=== PATIENT | female | born 2000 | race Caucasian/White ===

== ENCOUNTER 2023-03-22 19:05 | Outpatient (REF) | payer OTHER, SELFPAY | END 2023-03-22 19:06 | disposition home or self-care (01) | LOC: LAB 19:05 | PROVIDERS: PCP Physician Assistant; Visit Provider Physician Assistant | DX: R80.9 Proteinuria, unspecified (principal); R30.0 Dysuria | CPT/HCPCS: 87086 ==

== ENCOUNTER 2023-10-25 16:55 | Emergency (ER) | payer OTHER, SELFPAY ==
[2023-10-25 16:58] VITALS: BP 132/61; PULSE 65; TEMP 37; O2SAT 99; BMI 36.3
[2023-10-25 17:20] LABS: Bilirubin Urine NEGATIVE (NEGATIVE); Blood Urine NEGATIVE (NEGATIVE); Clarity Urine CLEAR (CLEAR); Color Urine LT. YELLOW (YELLOW); Glucose Urine UA NEGATIVE (NEGATIVE); Ketones Urine NEGATIVE (NEGATIVE); Leukocyte Esterase Urine SMALL (NEGATIVE); Nitrite Urine NEGATIVE (NEGATIVE); Protein Urine NEGATIVE (NEG/TRACE); Specific Gravity Urine 1.015 (1.005-1.025)
[2023-10-25 17:23] LABS: HCG Qualitative Urine* NEGATIVE (NEGATIVE)
[2023-10-25 17:36] LABS: Bacteria Urine NONE SEEN #/HPF (NONE SEEN); Cast Seen? NONE SEEN #/LPF (NONE SEEN); Crystals Seen? None Seen #/HPF (None Seen); Mucus Urine NONE SEEN (NONE SEEN); RBC Urine NONE SEEN #/HPF (0-2); Squamous Epithelial Cell Urine NONE SEEN #/LPF (NONE/RARE); WBC Urine 0-2 #/HPF (NONE SEEN)
[2023-10-25] MEDS: 0.9 % SODIUM CHLORIDE 1,000 ML 1000 ML IV (17:49)
--- NOTE | 2023-10-25 17:49 | ED_ITS ---
HPI HPI - General Adult General Chief complaint: Abdominal Pain Stated complaint: Nausea/Vomiting, Abdominal Pain, Headache Time Seen by Provider: 10/25/23 17:02 Source: patient Mode of arrival: walk-in Limitations: no limitations History of Present Illness HPI narrative: Patient is a 23-year-old female who is presenting to the ER with chief complaint of multiple concerns. Patient has bilateral frontal headache, dull, but persistent for the past 3 to 4 days. Patient does not normally get headaches. Patient has no neck pain. No meningeal signs or symptoms. Patient has no chest pain or shortness of breath. Patient does have midepigastric pain. Patient is been having urinary frequency and urgency. Patient told nursing staff Angelica VELÁZQUEZ that her nipples are sensitive, approximately 3/10 of sensitivity. She has no drainage, abscesses, trauma to bilateral breast. Patient is a G0, P0. Patient has no other abdominal pain, no flank pain or back pain. Patient states that she could be , but she is due for her menses in approximately 6 days. No vaginal bleeding, odors or discharge. No diarrhea or constipation. No acute complaints. Patient states she is been vomiting once or twice every morning for the past week. Patient did a test at urgent care last week. They did not check her urine for infection. No other acute complaints. 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 Patient's had no significant digestive or electrolyte problems since her gastric bypass. Patient is trying to get . She is not on control. Boyfriend is at bedside. All systems are negative except as noted/marked. All systems reviewed and otherwise negative. Nurses note and vital signs reviewed and patient is not hypoxic. General: The patient appears well and in no apparent distress. Patient is resting comfortably on cart. Patient is not toxic, lethargic, or listless Skin: Warm, dry, no pallor noted. There is no rash noted. No petechiae, purpura. Head: Normocephalic, atraumatic Eye: Normal conjunctiva, no drainage, EOMI. PERRL Ears, Nose, Mouth, and Throat: oral mucosa is moist. Nares patent. Mouth without vesicles. Cardiovascular: Regular Rate and Rhythm, no murmur, gallop, rub Respiratory: Patient is in no distress, no accessory muscle use, lungs are clear to auscultation, no wheezing, rales or rhonchi Back: non-tender, no CVA tenderness bilaterally to percussion. No CT LS midline pain GI: Obese, mild midepigastric tenderness to palpation, no bilateral lower quadrant tenderness palpation. Soft, no peritoneal signs, no flank pain bilateral. no tenderness to palpation, no masses appreciated. No rebound, guarding, or rigidity noted. No distention. Musculoskeletal: Patient has full range of motion of all of the extremities, no motor, sensory, or focal neurological deficits Neurological: A&O x4, normal speech Psychiatric: Cooperative Related Data Home Medications ?Medication ?Instructions ?Recorded ?Confirmed hydroxyzine HCl 10 mg tablet 10 mg PO DAILY 10/25/23 10/25/23 Previous Rx's ?Medication ?Instructions ?Recorded prochlorperazine maleate 10 mg 10 mg PO Q8H PRN nausea and 10/25/23 tablet (Compazine) vomiting 3 days #10 tabs Allergies Allergy/AdvReac Type Severity Reaction Status Date / Time No Known Drug Allergies Allergy Verified 10/25/23 16:58 Opioid HPI Opioid Management Most Recent Opioid Data: No Data to Display Exam Constitutional Vital Signs, click to edit/add: Last Vital Signs Temp 98.6 F 10/25/23 16:58 Pulse 65 10/25/23 16:58 Resp 18 10/25/23 16:58 BP 132/61 10/25/23 16:58 Pulse Ox 99 10/25/23 16:58 O2 Del Method Room Air 10/25/23 16:58 Course Vital Signs Vital signs: Vital Signs Temperature 98.6 F 10/25/23 16:58 Pulse Rate 65 10/25/23 16:58 Respiratory Rate 18 10/25/23 16:58 Blood Pressure 132/61 10/25/23 16:58 Pulse Oximetry 99 10/25/23 16:58 Oxygen Delivery Method Room Air 10/25/23 16:58 Temperature 98.6 F 10/25/23 16:58 Pulse Rate 65 10/25/23 16:58 Respiratory Rate 18 10/25/23 16:58 Blood Pressure 132/61 10/25/23 16:58 Pulse Oximetry 99 10/25/23 16:58 Oxygen Delivery Method Room Air 10/25/23 16:58 Medical Decision Making MDM Narrative Medical decision making narrative: Patient is concerned that she is having signs symptoms of . Patient is also having headache for past 3 to 4 days, also having 1-2 episodes of vomiting the past 3 to 4 days. Patient's symptoms have 100% resolved. Patient no longer has a headache, nausea has resolved. Patient's urine is negative, is negative. Patient was sent home with prescription for Compazine. Patient will follow-up with her PCP and GI specialist/bariatric specialist as needed. No questions at discharge Lab Data Labs: Lab Results 10/25/23 10/25/23 Range/Units 17:15 17:45 WBC 6.6 (4.0-11.0) 10^3/uL RBC 3.83 L (4.20-5.40) 10^6/uL Hgb 11.7 L (12.0-16.0) g/dL Hct 35.5 L (36.0-48.0) % MCV 92.7 (81.0-99.0) fL MCH 30.5 (26.7-34.0) pg MCHC 33.0 (29.9-35.2) g/dL RDW 12.5 (11.0-15.0) % Plt Count 241 (150-450) 10^3/uL MPV 10.7 (9.5-13.5) fL Neut % (Auto) 44.6 (43.0-75.0) % Lymph % (Auto) 48.2 (20.5-60.0) % [place] % (Auto) 5.0 (1.7-12.0) % Eos % (Auto) 1.5 (0.9-7.0) % Baso % (Auto) 0.5 (0.2-2.0) % Neut # (Auto) 3.0 (1.4-6.5) 10^3/uL Lymph # (Auto) 3.2 (1.2-3.8) 10^3/uL [place] # (Auto) 0.3 (0.3-0.8) 10^3/uL Eos # (Auto) 0.1 (0.0-0.7) 10^3/uL Baso # (Auto) 0.0 (0.0-0.1) 10^3/uL Abs Immat Gran (auto) 0.01 (0.00-0.03) 10^3/uL Imm/Tot Granulo (auto) 0.2 (0.0-0.5) % Sodium 141 (136-145) mmol/L Potassium 4.4 (3.5-5.1) mmol/L Chloride 105 (98-107) mmol/L Carbon Dioxide 26.7 (21.0-32.0) mmol/L Anion Gap 13.7 BUN 9.0 (7.0-18.0) mg/dL Creatinine 0.63 (0.55-1.02) mg/dL Est GFR ( Amer) >60 (>=60) Est GFR (Non-Af Amer) >60 (>=60) BUN/Creatinine Ratio 14.3 Glucose 87 (74-106) mg/dL Calcium 9.2 (8.5-10.1) mg/dL Total Bilirubin 0.6 (0.2-1.0) mg/dL AST 17 (15-37) U/L ALT 26 (14-59) U/L Alkaline Phosphatase 57 (46-116) U/L Total Protein 6.6 (6.4-8.2) g/dL Albumin 3.6 (3.4-5.0) g/dL Globulin 3.0 g/dL Albumin/Globulin Ratio 1.2 Lipase 28.0 (16.0-77.0) U/L Urine Color Lt. yellow (YELLOW) Urine Clarity Clear (CLEAR) Urine pH 8.0 (5.0-9.0) Ur Specific [place] 1.015 (1.005-1.025) Urine Protein Negative (NEG/TRACE) mg/dL Urine Glucose (UA) Negative (NEGATIVE) mg/dL Urine Ketones Negative (NEGATIVE) mg/dL Urine Occult Blood Negative (NEGATIVE) Urine Nitrite Negative (NEGATIVE) Urine Bilirubin Negative (NEGATIVE) Urine Urobilinogen 1.0 (0.2-1.0) EU/dL Ur Leukocyte Esterase Small A (NEGATIVE) Urine RBC None seen (0-2) #/HPF Urine WBC 0-2 A (NONE SEEN) #/HPF Ur Squamous Epith Cells None seen (NONE/RARE) #/LPF Urine Crystals None seen (None Seen) #/HPF Urine Bacteria None seen (NONE SEEN) #/HPF Urine Casts None seen (NONE SEEN) #/LPF Urine Mucus None seen (NONE SEEN) Urine HCG, Qual Negative (NEGATIVE) Discharge Plan Discharge Stand Alone Forms: Portal Instructions Chief Complaint: Abdominal Pain Clinical Impression: Headache, Midepigastric pain, Nausea Patient Disposition: Home, Self-Care Time of Disposition Decision: 18:54 Condition: Fair Prescriptions / Home Meds: New prochlorperazine maleate [Compazine] 10 mg tablet 10 mg PO Q8H PRN (Reason: nausea and vomiting) 3 Days Qty: 10 0RF No Action hydroxyzine HCl 10 mg tablet 10 mg PO DAILY Print Language: Maltese Instructions: Acute Nausea and Vomiting (ED), Acute Abdominal Pain (ED), Epigastric Pain (ED), General Headache (ED) Additional Instructions: Increase fluids at home. Follow-up with PCP. Referrals: Physician,Non-Staff, MD [Primary Care Provider] - 1 week
[2023-10-25] MEDS: ONDANSETRON PF 4 MG/2 ML VIAL IV (17:50)
[2023-10-25] MEDS: PROCHLORPERAZINE 10 MG/2 ML VIAL IV (17:50)
[2023-10-25 18:13] LABS: Basophils Percent Auto 0.5 % (0.2-2.0); Eosinophils Absolute Auto 0.1 10^3/uL (0.0-0.7); Eosinophils Percent Auto 1.5 % (0.9-7.0); Hematocrit 35.5 % (36.0-48.0); Hemoglobin 11.7 g/dL (12.0-16.0); Immature Granulocytes Abs Auto 0.01 10^3/uL (0.00-0.03); Immature Granulocytes Pct Auto 0.2 % (0.0-0.5); Lymphocytes Absolute Auto 3.2 10^3/uL (1.2-3.8); Lymphocytes Percent Auto 48.2 % (20.5-60.0); Mean Corpuscular Hemoglobin 30.5 pg (26.7-34.0); Mean Corpuscular Volume 92.7 fL (81.0-99.0); Mean Platelet Volume 10.7 fL (9.5-13.5); Monocytes Absolute Auto 0.3 10^3/uL (0.3-0.8); Neutrophils Percent Auto 44.6 % (43.0-75.0); Platelet Count 241 10^3/uL (150-450); Red Blood Count 3.83 10^6/uL (4.20-5.40); Red Cell Distribution Width 12.5 % (11.0-15.0); White Blood Count 6.6 10^3/uL (4.0-11.0)
[2023-10-25 18:28] LABS: Alanine Aminotransferase 26 U/L (14-59); Albumin Globulin Ratio 1.2; Albumin Level 3.6 g/dL (3.4-5.0); Alkaline Phosphatase 57 U/L (46-116); Anion Gap 13.7; Aspartate Amino Transferase 17 U/L (15-37); BUN Creatinine Ratio 14.3; Bilirubin Total 0.6 mg/dL (0.2-1.0); Calcium 9.2 mg/dL (8.5-10.1); Carbon Dioxide 26.7 mmol/L (21.0-32.0); Chloride 105 mmol/L (98-107); Estimated GFR (African America >60 (>=60); Estimated GFR (Non-African Ame >60 (>=60); Glucose 87 mg/dL (74-106); Potassium 4.4 mmol/L (3.5-5.1); Sodium 141 mmol/L (136-145); Total Protein 6.6 g/dL (6.4-8.2)
== END 2023-10-25 19:01 | disposition home or self-care (01) ==
PROVIDERS: Emergency Provider Emergency Medicine
DX: R51.9 Headache, unspecified (principal); R10.13 Epigastric pain; R11.0 Nausea; Z98.84 Bariatric surgery status
CPT/HCPCS: 36415; 80053; 81001; 83690; 84703; 85025; 96361; 96374; 96375; 99285

== ENCOUNTER 2023-11-20 14:19 | Emergency (ER) | payer OTHER, SELFPAY ==
[2023-11-20 14:25] VITALS: BP 134/70; PULSE 66; TEMP 37; O2SAT 97; BMI 36.0
--- NOTE | 2023-11-20 14:28 | US_ITS ---
[address] [address] Patient Name: CARLO KINGSLEY MRN: [id number] date: 2000 Sex: F Assigned Patient Location: ED.MAIN Current Patient Location: ER Accession/Order Number: [id number] Exam Date: 11/20/2023 15:00 Report Date: 11/20/2023 15:20 At the request of: SYDNEE CHANCE Procedure: US OB transvaginal EXAMINATION: US OB transvaginal HISTORY: ectopic preg COMPARISON: No relevant comparison available. FINDINGS: Transvaginal images Sarmiento intrauterine gestation Gestational sac: 2.17 cm, 6 weeks 5 days CRL: 0.91 cm, 6 weeks 6 days Yolk sac: 3.6 mm Heart rate: 1 40 bpm Cervix: Closed, 5.3 cm The uterus is normal, anteverted The ovaries are not visualized Clinical age: 7 weeks 3 days Clinical KATELIN: 07/05/2024 Ultrasound age: 6 weeks 6 days Ultrasound KATELIN: 07/09/2024 US/US OB transvaginal IMPRESSION: Viable sarmiento intrauterine gestation measuring 6 weeks 6 days Electronically authenticated by: HAFSA LAWRENCE Date: 11/20/2023 15:20
--- NOTE | 2023-11-20 14:33 | ED_ITS ---
HPI - Abdominal Pain General Chief Complaint: Abdominal Pain Stated Complaint: ABDOMINAL PAIN 7 WEEKS APPROX Time Seen by Provider: 11/20/23 14:20 Source: patient Mode of arrival: walk-in History of Present Illness HPI narrative: Patient is a 23-year-old female who presents to the emergency department for a 1 day history of pelvic cramping in the suprapubic abdomen. She states she believes she is approximately 7 weeks based on her last menstrual period. She was seen in this emergency department 3-1/2 weeks ago with concern for and was found to have a negative serum qualitative test. She states she continues to take positive home tests and last Saturday went to the [place] emergency department to confirm that she is . She comes to this emergency department today because she has been cramping in the suprapubic abdomen, no bleeding or clots. She has had no fevers or vomiting. No medications taken prior to arrival. This is her first , no flank or back pain. Related Data Home Medications ?Medication ?Instructions ?Recorded ?Confirmed hydroxyzine HCl 10 mg tablet 10 mg PO DAILY 10/25/23 11/20/23 Previous Rx's ?Medication ?Instructions ?Recorded cephalexin 500 mg capsule 500 mg PO Q8H 3 days #9 caps 11/20/23 Allergies Allergy/AdvReac Type Severity Reaction Status Date / Time No Known Drug Allergies Allergy Verified 10/25/23 16:58 Review of Systems ROS Constitutional Denies: fever or chills Ears, nose, mouth, and throat Denies: throat pain or nasal congestion Respiratory Denies: shortness of breath Gastrointestinal Reports: abdominal pain; Denies: nausea, vomiting or diarrhea Genitourinary Reports: pelvic pain; Denies: painful urination, vaginal bleeding or vaginal discharge Integumentary/Breast Denies: rash Neurological Denies: headache Hematologic/Lymphatic Denies: easy bruising or easy bleeding Exam Narrative Exam Narrative: Gen.: Awake, alert, in no distress Head: Normocephalic, atraumatic ENT: Moist mucous membranes Respiratory: No respiratory distress Gastrointestinal: Abdomen is soft, nondistended and Mildly tender to palpation in the suprapubic abdomen with no guarding or rebound, no unilateral pelvic tenderness or pain out of proportion on exam Extremities: Moves extremities equally Psych: Normal mood and affect Neuro: No focal neuro deficit Skin: Warm, dry, intact Constitutional Vital Signs, click to edit/add: Last Vital Signs Temp 98.6 F 11/20/23 14:25 Pulse 66 11/20/23 14:25 Resp 15 11/20/23 14:25 BP 134/70 11/20/23 14:25 Pulse Ox 97 11/20/23 14:25 O2 Del Method Room Air 11/20/23 14:25 Course Vital Signs Vital signs: Vital Signs Temperature 98.6 F 11/20/23 14:25 Pulse Rate 66 11/20/23 14:25 Respiratory Rate 15 11/20/23 14:25 Blood Pressure 134/70 11/20/23 14:25 Pulse Oximetry 97 11/20/23 14:25 Oxygen Delivery Method Room Air 11/20/23 14:25 Temperature 98.6 F 11/20/23 14:25 Pulse Rate 66 11/20/23 14:25 Respiratory Rate 15 11/20/23 14:25 Blood Pressure 134/70 11/20/23 14:25 Pulse Oximetry 97 11/20/23 14:25 Oxygen Delivery Method Room Air 11/20/23 14:25 MDM - Abdominal Pain MDM Narrative Medical decision making narrative: Patient with no severe abdominal pain or vomiting in the ER with stable vital signs. Quantitative hCG level is 61,000, she has B+ blood type and ultrasound shows intrauterine gestation at 6 weeks and 6 days with no other visualized abnormalities. Patient was found to have significant bowel gas on ultrasound, she may be constipated contributing to her symptoms. Her urine specimen shows a contaminated UTI, given her and suprapubic discomfort she will be treated with 3 days of Keflex. Follow-up with gynecology and return to the ER if symptoms change or worsen. Medical Records Attestation: I reviewed the patient's medical records. Lab Data Attestation: I reviewed the patient's lab results. Labs: Lab Results 11/20/23 11/20/23 Range/Units 14:30 14:39 WBC 9.0 (4.0-11.0) 10^3/uL RBC 3.82 L (4.20-5.40) 10^6/uL Hgb 11.7 L (12.0-16.0) g/dL Hct 34.8 L (36.0-48.0) % MCV 91.1 (81.0-99.0) fL MCH 30.6 (26.7-34.0) pg MCHC 33.6 (29.9-35.2) g/dL RDW 12.0 (11.0-15.0) % Plt Count 259 (150-450) 10^3/uL MPV 10.5 (9.5-13.5) fL Neut % (Auto) 59.6 (43.0-75.0) % Lymph % (Auto) 34.6 (20.5-60.0) % [place] % (Auto) 4.6 (1.7-12.0) % Eos % (Auto) 0.6 L (0.9-7.0) % Baso % (Auto) 0.3 (0.2-2.0) % Neut # (Auto) 5.4 (1.4-6.5) 10^3/uL Lymph # (Auto) 3.1 (1.2-3.8) 10^3/uL [place] # (Auto) 0.4 (0.3-0.8) 10^3/uL Eos # (Auto) 0.1 (0.0-0.7) 10^3/uL Baso # (Auto) 0.0 (0.0-0.1) 10^3/uL Abs Immat Gran (auto) 0.03 (0.00-0.03) 10^3/uL Imm/Tot Granulo (auto) 0.3 (0.0-0.5) % Sodium 139 (136-145) mmol/L Potassium 4.3 (3.5-5.1) mmol/L Chloride 104 (98-107) mmol/L Carbon Dioxide 25.9 (21.0-32.0) mmol/L Anion Gap 13.4 BUN 7.0 (7.0-18.0) mg/dL Creatinine 0.50 L (0.55-1.02) mg/dL Est GFR ( Amer) >60 (>=60) Est GFR (Non-Af Amer) >60 (>=60) BUN/Creatinine Ratio 14.0 Glucose 90 (74-106) mg/dL Calcium 9.1 (8.5-10.1) mg/dL Total Bilirubin 0.4 (0.2-1.0) mg/dL AST 11 L (15-37) U/L ALT 27 (14-59) U/L Alkaline Phosphatase 61 (46-116) U/L Total Protein 6.5 (6.4-8.2) g/dL Albumin 3.4 (3.4-5.0) g/dL Globulin 3.1 g/dL Albumin/Globulin Ratio 1.1 HCG, Quant 80108 mIU/mL Urine Color Yellow (YELLOW) Urine Clarity Clear (CLEAR) Urine pH 7.5 (5.0-9.0) Ur Specific [place] 1.025 (1.005-1.025) Urine Protein Negative (NEG/TRACE) mg/dL Urine Glucose (UA) Negative (NEGATIVE) mg/dL Urine Ketones Negative (NEGATIVE) mg/dL Urine Occult Blood Negative (NEGATIVE) Urine Nitrite Negative (NEGATIVE) Urine Bilirubin Negative (NEGATIVE) Urine Urobilinogen 2.0 A (0.2-1.0) EU/dL Ur Leukocyte Esterase Trace A (NEGATIVE) Urine RBC 0-2 (0-2) #/HPF Urine WBC 2-5 A (NONE SEEN) #/HPF Ur Squamous Epith Cells Moderate A (NONE/RARE) #/LPF Urine Crystals None seen (None Seen) #/HPF Urine Bacteria Small A (NONE SEEN) #/HPF Urine Casts None seen (NONE SEEN) #/LPF Urine Mucus None seen (NONE SEEN) Ur Culture Indicated? Yes Blood Type B Positive Imaging Data US - abdomen: Attestation: I have reviewed the pertinent imaging results. Radiologist's impression: ITS Impressions Transvaginal US 11/20/23 14:28 IMPRESSION: Viable sarmiento intrauterine gestation measuring 6 weeks 6 days Electronically authenticated by: HAFSA LAWRENCE Date: 11/20/2023 15:20 Discharge Plan Discharge Stand Alone Forms: Portal Instructions Chief Complaint: Abdominal Pain Clinical Impression: UTI (urinary tract infection), Intrauterine , Pelvic pain Patient Disposition: Home, Self-Care Time of Disposition Decision: 16:00 Condition: Good Prescriptions / Home Meds: New cephalexin 500 mg capsule 500 mg PO Q8H 3 Days Qty: 9 0RF No Action hydroxyzine HCl 10 mg tablet 10 mg PO DAILY Print Language: Turkmen Instructions: Urinary Tract Infection in (ED), at 7 to 10 Weeks (ED) Referrals: Physician,Non-Staff, MD [Primary Care Provider] - 1 week
[2023-11-20 14:58] LABS: Bilirubin Urine NEGATIVE (NEGATIVE); Blood Urine NEGATIVE (NEGATIVE); Clarity Urine CLEAR (CLEAR); Color Urine YELLOW (YELLOW); Glucose Urine UA NEGATIVE (NEGATIVE); Ketones Urine NEGATIVE (NEGATIVE); Leukocyte Esterase Urine TRACE (NEGATIVE); Nitrite Urine NEGATIVE (NEGATIVE); Protein Urine NEGATIVE (NEG/TRACE); Specific Gravity Urine 1.025 (1.005-1.025); Urine Microscopic Indicated YES; pH Urine 7.5 (5.0-9.0)
[2023-11-20 14:59] LABS: Basophils Percent Auto 0.3 % (0.2-2.0); Eosinophils Absolute Auto 0.1 10^3/uL (0.0-0.7); Eosinophils Percent Auto 0.6 % (0.9-7.0); Hematocrit 34.8 % (36.0-48.0); Hemoglobin 11.7 g/dL (12.0-16.0); Immature Granulocytes Abs Auto 0.03 10^3/uL (0.00-0.03); Immature Granulocytes Pct Auto 0.3 % (0.0-0.5); Lymphocytes Absolute Auto 3.1 10^3/uL (1.2-3.8); Lymphocytes Percent Auto 34.6 % (20.5-60.0); Mean Corpuscular HGB Conc 33.6 g/dL (29.9-35.2); Mean Corpuscular Hemoglobin 30.6 pg (26.7-34.0); Mean Corpuscular Volume 91.1 fL (81.0-99.0); Mean Platelet Volume 10.5 fL (9.5-13.5); Monocytes Absolute Auto 0.4 10^3/uL (0.3-0.8); Monocytes Percent Auto 4.6 % (1.7-12.0); Neutrophils Absolute Auto 5.4 10^3/uL (1.4-6.5); Neutrophils Percent Auto 59.6 % (43.0-75.0); Platelet Count 259 10^3/uL (150-450); Red Blood Count 3.82 10^6/uL (4.20-5.40)
[2023-11-20 15:08] LABS: Bacteria Urine SMALL #/HPF (NONE SEEN); Cast Seen? NONE SEEN #/LPF (NONE SEEN); Crystals Seen? None Seen #/HPF (None Seen); Mucus Urine NONE SEEN (NONE SEEN); RBC Urine 0-2 #/HPF (0-2); Squamous Epithelial Cell Urine MODERATE #/LPF (NONE/RARE); Urine Culture Indicated YES
[2023-11-20 15:12] LABS: Alanine Aminotransferase 27 U/L (14-59); Albumin Globulin Ratio 1.1; Albumin Level 3.4 g/dL (3.4-5.0); Alkaline Phosphatase 61 U/L (46-116); Anion Gap 13.4; Aspartate Amino Transferase 11 U/L (15-37); Bilirubin Total 0.4 mg/dL (0.2-1.0); Calcium 9.1 mg/dL (8.5-10.1); Carbon Dioxide 25.9 mmol/L (21.0-32.0); Chloride 104 mmol/L (98-107); Estimated GFR (African America >60 (>=60); Estimated GFR (Non-African Ame >60 (>=60); Globulin 3.1 g/dL; Glucose 90 mg/dL (74-106); Potassium 4.3 mmol/L (3.5-5.1); Sodium 139 mmol/L (136-145); Total Protein 6.5 g/dL (6.4-8.2)
[2023-11-20] MEDS: ACETAMINOPHEN 500 MG TABLET 1000 MG PO (15:13)
[2023-11-20 15:32] LABS: HCG Quantitative 61629 mIU/mL
== END 2023-11-20 16:14 | disposition home or self-care (01) ==
PROVIDERS: Physician Assistant; Emergency Provider Emergency Medicine
DX: O23.41 Unspecified infection of urinary tract in pregnancy, first trimester (principal); N39.0 Urinary tract infection, site not specified; O26.891 Other specified pregnancy related conditions, first trimester; R10.2 Pelvic and perineal pain; Z3A.01 Less than 8 weeks gestation of pregnancy; Z79.899 Other long term (current) drug therapy
CPT/HCPCS: 36415; 76817; 80053; 81001; 84702; 85025; 86900; 86901; 87086; 99284

== ENCOUNTER 2023-12-12 13:40 | Outpatient (OUT) | payer OTHER, SELFPAY | END 2023-12-12 13:41 | disposition home or self-care (01) | LOC: NOMS 13:40 | PROVIDERS: Visit Provider Obstetrics & Gynecology | DX: Z53.9 Procedure and treatment not carried out, unspecified reason (principal) ==

== ENCOUNTER 2023-12-12 15:06 | Outpatient (OUT) | payer OTHER, SELFPAY ==
[2023-12-12 15:48] LABS: Estimated Average Glucose 103 mg/dL; Glycohemoglobin A1C 5.2 % (4.5-6.2)
[2023-12-12 16:34] LABS: Basophils Percent Auto 0.4 % (0.2-2.0); Eosinophils Absolute Auto 0.1 10^3/uL (0.0-0.7); Eosinophils Percent Auto 0.7 % (0.9-7.0); Hematocrit 33.5 % (36.0-48.0); Hemoglobin 11.4 g/dL (12.0-16.0); Immature Granulocytes Abs Auto 0.03 10^3/uL (0.00-0.03); Immature Granulocytes Pct Auto 0.4 % (0.0-0.5); Mean Corpuscular Hemoglobin 31.3 pg (26.7-34.0); Mean Platelet Volume 10.5 fL (9.5-13.5); Monocytes Absolute Auto 0.3 10^3/uL (0.3-0.8); Monocytes Percent Auto 3.6 % (1.7-12.0); Neutrophils Absolute Auto 5.1 10^3/uL (1.4-6.5); Neutrophils Percent Auto 59.9 % (43.0-75.0); Platelet Count 250 10^3/uL (150-450); Red Blood Count 3.64 10^6/uL (4.20-5.40); Red Cell Distribution Width 12.4 % (11.0-15.0); White Blood Count 8.5 10^3/uL (4.0-11.0)
[2023-12-13 06:10] LABS: HBsAg Screen Negative (Negative); HCV Ab Non Reactive (Non Reactive); HIV Ab/p24 Ag Screen Non Reactive (Non Reactive); Rubella Antibodies, IgG <0.90 index (Immune >0.99)
[2023-12-13 11:10] LABS: Rapid Plasma Reagin, Quant Non Reactive titer (NonRea<1:1)
== END 2023-12-12 15:07 | disposition home or self-care (01) ==
LOC: LAB 15:06
PROVIDERS: Visit Provider Obstetrics & Gynecology
DX: N92.6 Irregular menstruation, unspecified (principal)
CPT/HCPCS: 36415; 83036; 85025; 86592; 86762; 86803; 86850; 86900; 86901; 87086; 87340; 87389

== ENCOUNTER 2023-12-12 16:35 | Outpatient (OUT) | payer OTHER, SELFPAY ==
--- OUTSIDE RECORDS SUMMARY | 2023-12-12 16:50 | XMS_ITS | CCD ---
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 [address] [id number] Debt Recovery Officer: Estuardo Michelle MD, Phone: [phone] This test was developed and its performance characteristics determined by [employer]. It has not been cleared or approved by the Food and Drug Administration. Performed By: #### V ITB1, ZINC #### [facility] [address] [place] [address] #### B12, FOL, CMP, PREALB, ANDREZ, CBCD #### [facility] [address] [place] [address] CBC with DIFFERENTIALon 11-29 Basophils (Bld) [#/Vol] 0.0 10*3/uL Normal 0.0-0.1 [facility] Comment on above: Order Comment: FAX R ESULTS TO DR FLORENCE: [phone] Performed By: #### V ITB1, ZINC #### [facility] [address] [place] [address] #### B12, FOL, CMP, PREALB, ANDREZ, CBCD #### [facility] [address] [place] [address] Basophils/100 WBC (Bld) 0.5 % Normal 0.0-1.0 [facility] Comment on above: Order Comment: FAMaximo R STIVENULTS TO DR FLORENCE: [phone] Performed By: #### V ITB1, ZINC #### [facility] [address] [place] [address] #### B12, FOL, CMP, PREALB, ANDREZ, CBCD #### [facility] [address] [place] [address] Eosinophils (Bld) [#/Vol] 0.4 10*3/uL Normal 0.0-0.4 [facility] Comment on above: Order Comment: FAX R ESULTS TO DR FLORENCE: [phone] Performed By: #### V ITB1, ZINC #### [facility] [address] [place] [address] #### B12, FOL, CMP, PREALB, ANDREZ, CBCD #### [facility] [address] [place] [address] Eosinophils/100 WBC (Bld) 4.8 % High 1.0-4.0 [facility] Comment on above: Order Comment: FAMaximo R ESULTS TO DR FLORENCE: [phone] Performed By: #### V ITB1, ZINC #### [facility] [address] [place] [address] #### B12, FOL, CMP, PREALB, ANDREZ, CBCD #### [facility] [address] [place] [address] Hematocrit (Bld) [Volume fraction] 41.9 % Normal 37.0-47.0 [facility] Comment on above: Order Comment: FAMaximo R STIVENULTS TO DR FLORENCE: Performed By: #### V ITB1, ZINC #### [facility] [address] [place] [address] #### B12, FOL, CMP, PREALB, ANDREZ, CBCD #### [facility] [address] [place] [address] Hemoglobin (Bld) [Mass/Vol] 13.8 g/dL Normal 12.0-16.0 [facility] Comment on above: Order Comment: JENNIFER R STIVENULTS TO DR FLORENCE: Performed By: #### V ITB1, ZINC #### [facility] [address] [place] [address] #### B12, FOL, CMP, PREALB, ANDREZ, CBCD #### [facility] [address] [place] [address] IG # 0.0 10*3/uL Normal 0.0-0.1 [facility] Comment on above: Order Comment: JENNIFER COLIN TO DR FLORENCE: Performed By: #### V ITB1, ZINC #### [facility] [address] [place] [address] #### B12, FOL, CMP, PREALB, ANDREZ, CBCD #### [facility] [address] [place] [address] IG % 0.4 % Normal 0.0-1.0 [facility] Comment on above: Order Comment: JENNIFER COLIN TO DR FLORENCE: Performed By: #### V ITB1, ZINC #### [facility] [address] [place] [address] #### B12, FOL, CMP, PREALB, ANDREZ, CBCD #### [facility] [address] [place] [address] Lymphocytes (Bld) [#/Vol] 3.8 10*3/uL Normal 1.3-4.4 [facility] Comment on above: Order Comment: FAX R ESULTS TO DR FLORENCE: Performed By: #### V ITB1, ZINC #### [facility] [address] [place] [address] #### B12, FOL, CMP, PREALB, ANDREZ, CBCD #### [facility] [address] [place] [address] Lymphocytes/100 WBC (Bld) 45.5 % High 27.0-41.0 [facility] Comment on above: Order Comment: FAX R ESULTS TO DR FLORENCE: Performed By: #### V ITB1, ZINC #### [facility] [address] [place] [address] #### B12, FOL, CMP, PREALB, ANDREZ, CBCD #### [facility] [address] [place] [address] MCV (RBC) [Entitic vol] 89.3 fL Normal 81.0-99.0 [facility] Comment on above: Order Comment: FAX R ESULTS TO DR FLORENCE: Performed By: #### V ITB1, ZINC #### [facility] [address] [place] [address] #### B12, FOL, CMP, PREALB, ANDREZ, CBCD #### [facility] [address] [place] [address] MEAN CORPUSCULAR HGB 29.4 pg Normal 27.0-31.0 [facility] Comment on above: Order Comment: FAX R ESULTS TO DR FLORENCE: Performed By: #### V ITB1, ZINC #### [facility] [address] [place] [address] #### B12, FOL, CMP, PREALB, ANDREZ, CBCD #### [facility] [address] [place] [address] MEAN CORPUSCULAR HGB CONC 32.9 g/dl Low 33.0-37.0 [facility] Comment on above: Order Comment: FAX R ESULTS TO DR FLORENCE: Performed By: #### V ITB1, ZINC #### [facility] [address] [place] [address] #### B12, FOL, CMP, PREALB, ANDREZ, CBCD #### [facility] [address] [place] [address] Monocytes (Bld) [#/Vol] 0.4 10*3/uL Normal 0.1-1.0 [facility] Comment on above: Order Comment: FAMaximo R STIVENULTS TO DR FLORENCE: Performed By: #### V ITB1, ZINC #### [facility] [address] [place] [address] #### B12, FOL, CMP, PREALB, ANDREZ, CBCD #### [facility] [address] [place] [address] Monocytes/100 WBC (Bld) 4.3 % Normal 3.0-9.0 [facility] Comment on above: Order Comment: FAMaximo R STIVENULTS TO DR FLORENCE: Performed By: #### V ITB1, ZINC #### [facility] [address] [place] [address] #### B12, FOL, CMP, PREALB, ANDREZ, CBCD #### [facility] [address] [place] [address] Neutrophils (Bld) [#/Vol] 3.7 10*3/uL Normal 2.3-7.9 [facility] Comment on above: Order Comment: JENNIFER R ESULTS TO DR FLORENCE: Performed By: #### V ITB1, ZINC #### [facility] [address] [place] [address] #### B12, FOL, CMP, PREALB, ANDREZ, CBCD #### [facility] [address] [place] [address] Neutrophils/100 WBC (Bld) 44.5 % Low 47.0-73.0 [facility] Comment on above: Order Comment: FAX R ESULTS TO DR FLORENCE: Performed By: #### V ITB1, ZINC #### [facility] [address] [place] [address] #### B12, FOL, CMP, PREALB, ANDREZ, CBCD #### [facility] [address] [place] [address] NUCLEATED RED BLOOD CELL 0.0 10*3/uL Normal 0.0-0.0 [facility] Comment on above: Order Comment: FAX R ESULTS TO DR FLORENCE: Performed By: #### V ITB1, ZINC #### [facility] [address] [place] [address] #### B12, FOL, CMP, PREALB, ANDREZ, CBCD #### [facility] [address] [place] [address] NUCLEATED RED BLOOD CELL 0.0 % Normal 0.0-0.0 [facility] Comment on above: Order Comment: FAX R ESULTS TO DR FLORENCE: Performed By: #### V ITB1, ZINC #### [facility] [address] [place] [address] #### B12, FOL, CMP, PREALB, ANDREZ, CBCD #### [facility] [address] [place] [address] PLATELET COUNT AUTOMATED 277 10*3/uL Normal 130-400 [facility] Comment on above: Order Comment: FAX R ESULTS TO DR FLORENCE: Performed By: #### V ITB1, ZINC #### [facility] [address] [place] [address] #### B12, FOL, CMP, PREALB, ANDREZ, CBCD #### [facility] [address] [place] [address] Platelet mean volume (Bld) [Entitic vol] 11.2 fL Normal 9.6-12.3 [facility] Comment on above: Order Comment: JENNIFER COLIN TO DR FLORENCE: [phone] Performed By: #### V ITB1, ZINC #### [facility] [address] [place] [address] #### B12, FOL, CMP, PREALB, ANDREZ, CBCD #### [facility] [address] [place] [address]16 RBC (Bld) [#/Vol] 4.69 10*6/uL Normal 4.10-5.10 [facility] Comment on above: Order Comment: JENNIFER COLIN TO DR FLORENCE: [phone] Performed By: #### V ITB1, ZINC #### [facility] [address] [place] [address] #### B12, FOL, CMP, PREALB, ANDREZ, CBCD #### [facility] [address] [place] [address]9979 RED CELL DISTRI WIDTH 13.5 % Normal 0-14.5 [facility] Comment on above: Order Comment: JENNIFER COLIN TO DR FLORENCE: [phone] Performed By: #### V ITB1, ZINC #### [facility] [address] [place] [address] #### B12, FOL, CMP, PREALB, ANDREZ, CBCD #### [facility] [address] [place] [address] 86460 WBC (Bld) [#/Vol] 8.3 10*3/uL Normal 4.8-10.8 [facility] Comment on above: Order Comment: JENNIFER COLIN TO DR FLORENCE: [phone] Performed By: #### V ITB1, ZINC #### [facility] [address] [place] [address] #### B12, FOL, CMP, PREALB, ANDREZ, CBCD #### [facility] [address] [place] [address] COMPREHENSIVE METABOLIC PANE Evan 12-14-2022 Albumin [Mass/Vol] 3.8 g/dL Normal 3.4-5.0 [facility] Comment on above: Order Comment: FAX R ESULTS TO DR FLORENCE: [phone] Performed By: #### V ITB1, ZINC #### [facility] [address] [place] [address] #### B12, FOL, CMP, PREALB, ANDREZ, CBCD #### [facility] [address] [place] [address]19 ALP [Catalytic activity/Vol] 74 U/L Normal 46-116 [facility] Comment on above: Order Comment: FAX R ESULTS TO DR FLORENCE: [phone] Performed By: #### V ITB1, ZINC #### [facility] [address] [place] [address] #### B12, FOL, CMP, PREALB, ANDREZ, CBCD #### [facility] [address] [place] [address] 57543 ALT [Catalytic activity/Vol] 34 U/L Normal 10-49 [facility] Comment on above: Order Comment: FAX R ESULTS TO DR FLORENCE: [phone] Performed By: #### V ITB1, ZINC #### [facility] [address] [place] [address] #### B12, FOL, CMP, PREALB, ANDREZ, CBCD #### [facility] [address] [place] [address] AST [Catalytic activity/Vol] 19 U/L Normal 0-34 [facility] Comment on above: Order Comment: FAX R ESULTS TO DR FLORENCE: [phone] Performed By: #### V ITB1, ZINC #### [facility] [address] [place] [address] #### B12, FOL, CMP, PREALB, ANDREZ, CBCD #### [facility] [address] [place] [address] Bilirubin [Mass/Vol] 0.3 mg/dL Normal 0.3-1.2 [facility] Comment on above: Order Comment: FAX R ESULTS TO DR FLORENCE: [phone] Performed By: #### V ITB1, ZINC #### [facility] [address] [place] [address] #### B12, FOL, CMP, PREALB, ANDREZ, CBCD #### [facility] [address] [place] [address] CALCIUM,TOTAL 9.0 md/dL Normal 8.7-10.[address] [facility] Comment on above: Order Comment: FAX R ESULTS TO DR FLORENCE: [phone] Performed By: #### V ITB1, ZINC #### [facility] [address] [place] [address] #### B12, FOL, CMP, PREALB, ANDREZ, CBCD #### [facility] [address] [place] [address] Chloride [Moles/Vol] 109 mmol/L High 98-107 [facility] Comment on above: Order Comment: FAX R ESULTS TO DR FLORENCE: [phone] Performed By: #### V ITB1, ZINC #### [facility] [address] [place] [address] #### B12, FOL, CMP, PREALB, ANDREZ, CBCD #### [facility] [address] [place] [address] CO2 [Moles/Vol] 27 mmol/L Normal 20-31 [facility] Comment on above: Order Comment: FAX R ESULTS TO DR FLORENCE: [phone] Performed By: #### V ITB1, ZINC #### [facility] [address] [place] [address] #### B12, FOL, CMP, PREALB, ANDREZ, CBCD #### [facility] [address] [place] [address] Creatinine [Mass/Vol] 0.62 mg/dL Normal 0.55-1.02 [facility] Comment on above: Order Comment: FAX R ESULTS TO DR FLORENCE: [phone] Performed By: #### V ITB1, ZINC #### [facility] [address] [place] [address] #### B12, FOL, CMP, PREALB, ANDREZ, CBCD #### [facility] [address] [place] [address] EST GLOM FILT > 60 Normal [facility] Comment on above: Order Comment: FAX R ESULTS TO DR FLORENCE: [phone] Result Comment: Result Units: mL/min/1.73 m2 Note: Persistent reduction for 3 months or more of an eGFR of <60 ml/min/1.73 m2 defines Chronic Kidney Disease (CKD). Patients with eGFR values greater than or equal to 60 ml/min/1.73 m2 may also have CKD if evidence of persistent proteinuria is present. STAGES OF CKD eGFR Stage 1 Kidney damage with normal kidney function >=90 Stage 2 Kidney damage with mild loss of kidney function 89-60 Stage 3a Mild to moderate loss of kidney function 59-44 Stage 3b Moderate to severe loss of kidney function 43-30 Stage 4 Severe loss of kidney function 29-15 Stage 5 Kidney failure < 15 . Performed By: #### V ITB1, ZINC #### [facility] [address] [place] [address] #### B12, FOL, CMP, PREALB, ANDREZ, CBCD #### [facility] [address] [place] [address] ESTIMATED GLOM FILT RATE > 60 Normal [facility] Comment on above: Order Comment: FAX R ESULTS TO DR FLORENCE: [phone] Performed By: #### V ITB1, ZINC #### [facility] [address] [place] [address] #### B12, FOL, CMP, PREALB, ANDREZ, CBCD #### [facility] [address] [place] [address] Glucose [Mass/Vol] 103 mg/dL High 65-99 [facility] Comment on above: Order Comment: FAX R ESULTS TO DR FLORENCE: Performed By: #### V ITB1, ZINC #### [facility] [address] [place] [address] #### B12, FOL, CMP, PREALB, ANDREZ, CBCD #### [facility] [address] [place] [address] Potassium [Moles/Vol] 3.6 mmol/L Normal 3.4-5.1 [facility] Comment on above: Order Comment: FAX R ESULTS TO DR FLORENCE: Performed By: #### V ITB1, ZINC #### [facility] [address] [place] [address] #### B12, FOL, CMP, PREALB, ANDREZ, CBCD #### [facility] [address] [place] [address] Protein [Mass/Vol] 6.5 g/dL Normal 6.0-8.0 [facility] Comment on above: Order Comment: FAX R ESULTS TO DR FLORENCE: Performed By: #### V ITB1, ZINC #### [facility] [address] [place] [address] #### B12, FOL, CMP, PREALB, ANDREZ, CBCD #### [facility] [address] [place] [address] Sodium [Moles/Vol] 138 mmol/L Normal 136-145 [facility] Comment on above: Order Comment: FAX R ESULTS TO DR FLORENCE: Performed By: #### V ITB1, ZINC #### [facility] [address] [place] [address] #### B12, FOL, CMP, PREALB, ANDREZ, CBCD #### [facility] [address] [place] [address] Urea nitrogen [Mass/Vol] 8 mg/dL Low 9-23 [facility] Comment on above: Order Comment: JENNIFER SALEEMULTS TO DR FLORENCE: [phone] Performed By: #### V ITB1, ZINC #### [facility] [address] [place] [address] #### B12, FOL, CMP, PREALB, ANDREZ, CBCD #### [facility] [address] [place] [address] FERRITINon 12-14-2022 Ferritin [Mass/Vol] 40.9 ng/mL Normal 7.3-307.3 [facility] Comment on above: Order Comment: FAMaximo R STIVENULTS TO DR FLORENCE: [phone] Performed By: #### V ITB1, ZINC #### [facility] [address] [place] [address] #### B12, FOL, CMP, PREALB, ANDREZ, CBCD #### [facility] [address] [place] [address] FOLIC ACIDon 12-14-2022 FOLIC ACID 16.04 ng/mL Normal 5.38-24.00 [facility] Comment on above: Order Comment: JENNIFER R STIVENULTS TO DR FLORENCE: [phone] Result Comment: 0.35 - 3.7 ng/mL - Folate Deficiency 3.38 - 5.38 ng/mL - Indeterminate > 5.38 ng/mL - Normal Performed By: #### V ITB1, ZINC #### [facility] [address] [place] [address] #### B12, FOL, CMP, PREALB, ANDREZ, CBCD #### [facility] [address] [place] [address] PREALBUMINon 12-14-2022 Prealbumin [Mass/Vol] 16 mg/dL Normal 10-40 [facility] Comment on above: Order Comment: FAMaximo R STIVENULTS TO DR FLORENCE: [phone] Performed By: #### V ITB1, ZINC #### [facility] [address] [place] [address] #### B12, FOL, CMP, PREALB, ANDREZ, CBCD #### [facility] [address] [place] [address] VITAMIN B12on 12-14-2022 Cobalamin (Vitamin B12) [Mass/Vol] 261 pg/mL Normal 211-911 [facility] Comment on above: Order Comment: FAX R CRISTI TO DR FLORENCE: [phone] Result Comment: 247 - 911 pg/mL - Normal, Vitamin B12 Sufficiency Performed By: #### V ITB1, ZINC #### [facility] [address] [place] [address] #### B12, FOL, CMP, PREALB, ANDREZ, CBCD #### [facility] [address] [place] [address] CBC with DIFFERENTIALon Basophils (Bld) [#/Vol] 0.0 10*3/uL Normal 0.0-0.1 [facility] Comment on above: Performed By: #### V ITB1, ZINC #### [facility] [address] [place] [address] #### B12, FOL, CMP, PREALB, ANDREZ, CBCD #### [facility] [address] [place] [address] 99077 Basophils/100 WBC (Bld) 0.6 % Normal 0.0-1.0 [facility] Comment on above: Performed By: #### V ITB1, ZINC #### [facility] [address] [place] [address] #### B12, FOL, CMP, PREALB, ANDREZ, CBCD #### [facility] [address] [place] [address]28[address] Eosinophils (Bld) [#/Vol] 0.4 10*3/uL Normal 0.0-0.4 [facility] Comment on above: Performed By: #### V ITB1, ZINC #### [facility] [address] [place] [address] #### B12, FOL, CMP, PREALB, ANDREZ, CBCD #### [facility] [address] [place] [address] Eosinophils/100 WBC (Bld) 6.0 % High 1.0-4.0 [facility] Comment on above: Performed By: #### V ITB1, ZINC #### [facility] [address] [place], [place] [id number] #### B12, FOL, CMP, PREALB, ANDREZ, CBCD #### [facility] [address] [place] [address] Hematocrit (Bld) [Volume fraction] 42.2 % Normal 37.0-47.0 [facility] Comment on above: Performed By: #### V ITB1, ZINC #### [facility] [address] [place] [address] #### B12, FOL, CMP, PREALB, ANDREZ, CBCD #### [facility] [address] [place] [address] Hemoglobin (Bld) [Mass/Vol] 14.0 g/dL Normal 12.0-16.0 [facility] Comment on above: Performed By: #### V ITB1, ZINC #### [facility] [address] [place] [address] #### B12, FOL, CMP, PREALB, ANDREZ, CBCD #### [facility] [address] [place] [address]497 IG # 0.0 10*3/uL Normal 0.0-0.1 [facility] Comment on above: Performed By: #### V ITB1, ZINC #### [facility] [address] [place] [address] #### B12, FOL, CMP, PREALB, ANDREZ, CBCD #### [facility] [address] [place] [address] 08078 IG % 0.2 % Normal 0.0-1.0 [facility] Comment on above: Performed By: #### V ITB1, ZINC #### [facility] [address] [place] [address] #### B12, FOL, CMP, PREALB, ANDREZ, CBCD #### [facility] [address] [place] [address] Lymphocytes (Bld) [#/Vol] 3.4 10*3/uL Normal 1.3-4.4 [facility] Comment on above: Performed By: #### V ITB1, ZINC #### [facility] [address] [place] [address] #### B12, FOL, CMP, PREALB, ANDREZ, CBCD #### [facility] [address] [place] [address]2381 Lymphocytes/100 WBC (Bld) 53.6 % High 27.0-41.0 [facility] Comment on above: Performed By: #### V ITB1, ZINC #### [facility] [address] #### B12, FOL, CMP, PREALB, ANDREZ, CBCD #### [facility] [address] [place] [address]255 MCV (RBC) [Entitic vol] 88.5 fL Normal 81.0-99.0 [facility] Comment on above: Performed By: #### V ITB1, ZINC #### [facility] [address] [place] [address] #### B12, FOL, CMP, PREALB, ANDREZ, CBCD #### [facility] [address] [place] [address] 79681 MEAN CORPUSCULAR HGB 29.4 pg Normal 27.0-31.0 [facility] Comment on above: Performed By: #### V ITB1, ZINC #### [facility] [address] [place] [address] #### B12, FOL, CMP, PREALB, ANDREZ, CBCD #### [facility] [address] [place] [address] 92253 MEAN CORPUSCULAR HGB CONC 33.2 g/dl Normal 33.0-37.0 [facility] Comment on above: Performed By: #### V ITB1, ZINC #### [facility] [address] [place] [address] #### B12, FOL, CMP, PREALB, ANDREZ, CBCD #### [facility] [address] [place] [address] Monocytes (Bld) [#/Vol] 0.3 10*3/uL Normal 0.1-1.0 [facility] Comment on above: Performed By: #### V ITB1, ZINC #### [facility] [address] [place] [address] #### B12, FOL, CMP, PREALB, ANDREZ, CBCD #### [facility] [address] [place] [address] 02038 Monocytes/100 WBC (Bld) 4.8 % Normal 3.0-9.0 [facility] Comment on above: Performed By: #### V ITB1, ZINC #### [facility] [address] [place] [address] #### B12, FOL, CMP, PREALB, ANDREZ, CBCD #### [facility] [address] [place] [address] 98047 Neutrophils (Bld) [#/Vol] 2.2 10*3/uL Low 2.3-7.9 [facility] Comment on above: Performed By: #### V ITB1, ZINC #### [facility] [address] [place] [address] #### B12, FOL, CMP, PREALB, ANDREZ, CBCD #### [facility] [address] [place] [address] 11610 Neutrophils/100 WBC (Bld) 34.8 % Low 47.0-73.0 [facility] Comment on above: Performed By: #### V ITB1, ZINC #### [facility] [address] [place] [address] #### B12, FOL, CMP, PREALB, ANDREZ, CBCD #### [facility] [address] [place] [address]40 NUCLEATED RED BLOOD CELL 0.0 10*3/uL Normal 0.0-0.0 [facility] Comment on above: Performed By: #### V ITB1, ZINC #### [facility] [address] [place] [address] #### B12, FOL, CMP, PREALB, ANDREZ, CBCD #### [facility] [address] [place] [address] NUCLEATED RED BLOOD CELL 0.0 % Normal 0.0-0.0 [facility] Comment on above: Performed By: #### V ITB1, ZINC #### [facility] [address] [place] [address] #### B12, FOL, CMP, PREALB, ANDREZ, CBCD #### [facility] [address] [place] [address] PLATELET COUNT AUTOMATED 265 10*3/uL Normal 130-400 [facility] Comment on above: Performed By: #### V ITB1, ZINC #### [facility] [address] [place] [address] #### B12, FOL, CMP, PREALB, ANDREZ, CBCD #### [facility] [address] [place] [id number] Platelet mean volume (Bld) [Entitic vol] 11.3 fL Normal 9.6-12.3 [facility] Comment on above: Performed By: #### V ITB1, ZINC #### [facility] [address] [place] [address] #### B12, FOL, CMP, PREALB, ANDREZ, CBCD #### [facility] [address] [place] [address] RBC (Bld) [#/Vol] 4.77 10*6/uL Normal 4.10-5.10 [facility] Comment on above: Performed By: #### V ITB1, ZINC #### [facility] [address] [place] [address] #### B12, FOL, CMP, PREALB, ANDREZ, CBCD #### [facility] [address] [place] [address] 67082 RED CELL DISTRI WIDTH 13.9 % Normal 0-14.5 [facility] Comment on above: Performed By: #### V ITB1, ZINC #### [facility] [address] [place] [address] #### B12, FOL, CMP, PREALB, ANDREZ, CBCD #### [facility] [address] [place] [address] 88338 WBC (Bld) [#/Vol] 6.3 10*3/uL Normal 4.8-10.8 [facility] Comment on above: Performed By: #### V ITB1, ZINC #### [facility] [address] [place] [address] #### B12, FOL, CMP, PREALB, ANDREZ, CBCD #### [facility] [address] [place] [address] 26773 COMPREHENSIVE METABOLIC PANE Evan 12-03-2022 Albumin [Mass/Vol] 4.0 g/dL Normal 3.4-5.0 [facility] Comment on above: Performed By: #### V ITB1, ZINC #### [facility] [address] [place] [address] #### B12, FOL, CMP, PREALB, ANDREZ, CBCD #### [facility] [address] [place] [address] 92301 ALP [Catalytic activity/Vol] 69 U/L Normal 46-116 [facility] Comment on above: Performed By: #### V ITB1, ZINC #### [facility] [address] [place] [address] #### B12, FOL, CMP, PREALB, ANDREZ, CBCD #### [facility] [address] [place] [address] 17292 ALT [Catalytic activity/Vol] 79 U/L High 10-49 [facility] Comment on above: Performed By: #### V ITB1, ZINC #### [facility] [address] [place] [address] #### B12, FOL, CMP, PREALB, ANDREZ, CBCD #### [facility] [address] [place] [address] AST [Catalytic activity/Vol] 31 U/L Normal 0-34 [facility] Comment on above: Performed By: #### V ITB1, ZINC #### [facility] [address] [place] [address] #### B12, FOL, CMP, PREALB, ANDREZ, CBCD #### [facility] [address] [place] [address] 89376 Bilirubin [Mass/Vol] 0.4 mg/dL Normal 0.3-1.2 [facility] Comment on above: Performed By: #### V ITB1, ZINC #### [facility] [address] [place] [address] #### B12, FOL, CMP, PREALB, ANDREZ, CBCD #### [facility] [address] [place] [address] 22581 CALCIUM,TOTAL 9.1 md/dL Normal 8.7-10.[address] [facility] Comment on above: Performed By: #### V ITB1, ZINC #### [facility] [address] [place] [address] #### B12, FOL, CMP, PREALB, ANDREZ, CBCD #### [facility] [address] [place] [address] 37918 Chloride [Moles/Vol] 109 mmol/L High 98-107 [facility] Comment on above: Performed By: #### V ITB1, ZINC #### [facility] [address] [place] [address] #### B12, FOL, CMP, PREALB, ANDREZ, CBCD #### [facility] [address] [place] [address] 76328 CO2 [Moles/Vol] 25 mmol/L Normal 20-31 [facility] Comment on above: Performed By: #### V ITB1, ZINC #### [facility] [address] [place] [address] #### B12, FOL, CMP, PREALB, ANDREZ, CBCD #### [facility] [address] [place] [address] Creatinine [Mass/Vol] 0.56 mg/dL Normal 0.55-1.02 [facility] Comment on above: Performed By: #### V ITB1, ZINC #### [facility] [address] [place] [address] #### B12, FOL, CMP, PREALB, ANDREZ, CBCD #### [facility] [address] [place] [address] EST GLOM FILT > 60 Normal [facility] Comment on above: Result Comment: Result Units: mL/min/1.73 m2 Note: Persistent reduction for 3 months or more of an eGFR of <60 ml/min/1.73 m2 defines Chronic Kidney Disease (CKD). Patients with eGFR values greater than or equal to 60 ml/min/1.73 m2 may also have CKD if evidence of persistent proteinuria is present. STAGES OF CKD eGFR Stage 1 Kidney damage with normal kidney function >=90 Stage 2 Kidney damage with mild loss of kidney function 89-60 Stage 3a Mild to moderate loss of kidney function 59-44 Stage 3b Moderate to severe loss of kidney function 43-30 Stage 4 Severe loss of kidney function 29-15 Stage 5 Kidney failure < 15 . Performed By: #### V ITB1, ZINC #### [facility] [address] [place] [address] #### B12, FOL, CMP, PREALB, ANDREZ, CBCD #### [facility] [address] [place] [address] ESTIMATED GLOM FILT RATE > 60 Normal [facility] Comment on above: Performed By: #### V ITB1, ZINC #### [facility] [address] [place] [address] #### B12, FOL, CMP, PREALB, ANDREZ, CBCD #### [facility] [address] [place] [address] Glucose [Mass/Vol] 103 mg/dL High 65-99 [facility] Comment on above: Performed By: #### V ITB1, ZINC #### [facility] [address] [place] [address] #### B12, FOL, CMP, PREALB, ANDREZ, CBCD #### [facility] [address] [place] [address] 62132 Potassium [Moles/Vol] 3.8 mmol/L Normal 3.4-5.1 [facility] Comment on above: Performed By: #### V ITB1, ZINC #### [facility] [address] [place] [address] #### B12, FOL, CMP, PREALB, ANDREZ, CBCD #### [facility] [address] [place] [address] 26859 Protein [Mass/Vol] 6.7 g/dL Normal 6.0-8.0 [facility] Comment on above: Performed By: #### V ITB1, ZINC #### [facility] [address] [place] [address] #### B12, FOL, CMP, PREALB, ANDREZ, CBCD #### [facility] [address] [place] [address] 78021 Sodium [Moles/Vol] 141 mmol/L Normal 136-145 [facility] Comment on above: Performed By: #### V ITB1, ZINC #### [facility] [address] [place] [address] #### B12, FOL, CMP, PREALB, ANDREZ, CBCD #### [facility] [address] [place] [address] 71990 Urea nitrogen [Mass/Vol] 10 mg/dL Normal 9-23 [facility] Comment on above: Performed By: #### V ITB1, ZINC #### [facility] [address] #### B12, FOL, CMP, PREALB, ANDREZ, CBCD #### [facility] [address] [place] [address] [id number] 12-03-2022 ESTIMATED AVERAGE GLUCOSE 94 Normal [facility] Comment on above: Performed By: #### V ITB1, ZINC #### [facility] [address] #### B12, FOL, CMP, PREALB, ANDREZ, CBCD #### [facility] [address] [place] [address] HbA1c (Bld) [Mass fraction] 4.9 % Normal 4.8-5.6 [facility] Comment on above: Result Comment: Standarization of method based on National Glycohemoglobin Standardization Program (NGSP). HEMOGLOBIN A1c(%) DEGREE of GLUCOSE CONTROL 5.7-6.4% Prediabetes range >6.4% Diagnosis of Diabetes <7% Glycemic control for adults with Diabetes Performed By: #### V ITB1, ZINC #### [facility] [address] #### B12, FOL, CMP, PREALB, ANDREZ, CBCD #### [facility] [address] [place] [address] 91654 INSULINon 12-03-2022 INSULIN 14.2 mU/L Normal 2.6-37.6 [facility] Comment on above: Performed By: #### V ITB1, ZINC #### [facility] [address] #### B12, FOL, CMP, PREALB, ANDREZ, CBCD #### [facility] [address] [place] [address] LIPID PANEL CHOLESTEROL/HDLo n 12-03-2022 Cholesterol [Mass/Vol] 113 mg/dL Normal <200 [facility] Comment on above: Performed By: #### V ITB1, ZINC #### [facility] [address] [place] [address] #### B12, FOL, CMP, PREALB, ANDREZ, CBCD #### [facility] [address] [place] [address] Cholesterol in HDL [Mass/Vol] 26 mg/dL Low 40-60 [facility] Comment on above: Performed By: #### V ITB1, ZINC #### [facility] [address] [place] [address] #### B12, FOL, CMP, PREALB, ANDERZ, CBCD #### [facility] [address] [place] [address] Cholesterol in LDL [Mass/Vol] 52 mg/dL Normal 9-159 [facility] Comment on above: Performed By: #### V ITB1, ZINC #### [facility] [address] [place] [address] #### B12, FOL, CMP, PREALB, ANDREZ, CBCD #### [facility] [address] [place] [address] 12540 Cholesterol.total/Chol esterol in HDL [Mass ratio] 4.3 {ratio} Normal [facility] Comment on above: Performed By: #### V ITB1, ZINC #### [facility] [address] [place] [address] #### B12, FOL, CMP, PREALB, ANDREZ, CBCD #### [facility] [address] [place] [address] Triglyceride [Mass/Vol] 176 mg/dL High <150 [facility] Comment on above: Result Comment: TRIGLYCERIDE RISK ASSESSMENT: 150-199 mg/dl BORDERLINE HIGH >200 mg//dl HIGH . Performed By: #### V ITB1, ZINC #### [facility] [address] [place] [address] #### B12, FOL, CMP, PREALB, ANDREZ, CBCD #### [facility] [address] [place] [address] VLDL CHOLESTEROL 35 mg/dL Normal 6-40 [facility] Comment on above: Performed By: #### V ITB1, ZINC #### [facility] [address] [place] [address] #### B12, FOL, CMP, PREALB, ANDREZ, CBCD #### [facility] [address] [place] [address] 90791 CBC with DIFFERENTIALon 05-0 Basophils (Bld) [#/Vol] 0.0 10*3/uL Normal 0.0-0.1 [facility] Comment on above: Order Comment: FAX R ESULTS TO DR FLORENCE: [phone] Performed By: #### V ITB1, ZINC #### [facility] [address] [place] [address] #### B12, FOL, CMP, PREALB, ANDREZ, CBCD #### [facility] [address] [place] [address] 69216 Basophils/100 WBC (Bld) 0.3 % Normal 0.0-1.0 [facility] Comment on above: Order Comment: FAX R ESULTS TO DR FLORENCE: [phone] Performed By: #### V ITB1, ZINC #### [facility] [address] [place] [address] #### B12, FOL, CMP, PREALB, ANDREZ, CBCD #### [facility] [address] [place] [address] 85595 Eosinophils (Bld) [#/Vol] 0.2 10*3/uL Normal 0.0-0.4 [facility] Comment on above: Order Comment: FAX R ESULTS TO DR FLORENCE: [phone] Performed By: #### V ITB1, ZINC #### [facility] [address] [place] [address] #### B12, FOL, CMP, PREALB, ANDREZ, CBCD #### [facility] [address] [place] [address] Eosinophils/100 WBC (Bld) 3.2 % Normal 1.0-4.0 [facility] Comment on above: Order Comment: FAX R ESULTS TO DR FLORENCE: [phone] Performed By: #### V ITB1, ZINC #### [facility] [address] [place] [address] #### B12, FOL, CMP, PREALB, ANDREZ, CBCD #### [facility] [address] [place] [address] Hematocrit (Bld) [Volume fraction] 43.8 % Normal 37.0-47.0 [facility] Comment on above: Order Comment: FAX R ESULTS TO DR FLORENCE: [phone] Performed By: #### V ITB1, ZINC #### [facility] [address] #### B12, FOL, CMP, PREALB, ANDREZ, CBCD #### [facility] [address] [place] [address] Hemoglobin (Bld) [Mass/Vol] 14.3 g/dL Normal 12.0-16.0 [facility] Comment on above: Order Comment: FAX R ESULTS TO DR FLORENCE: [phone] Performed By: #### V ITB1, ZINC #### [facility] [address] [place] [address] #### B12, FOL, CMP, PREALB, ANDREZ, CBCD #### [facility] [address] [place] [address] 74102 IG # 0.1 10*3/uL Normal 0.0-0.1 [facility] Comment on above: Order Comment: FAX R ESULTS TO DR FLORENCE: [phone] Performed By: #### V ITB1, ZINC #### [facility] [address] [place] [address] #### B12, FOL, CMP, PREALB, ANDREZ, CBCD #### [facility] [address] [place] [address] IG % 0.7 % Normal 0.0-1.0 [facility] Comment on above: Order Comment: FAX R ESULTS TO DR FLORENCE: [phone] Performed By: #### V ITB1, ZINC #### [facility] [address] [place] [address] #### B12, FOL, CMP, PREALB, ANDREZ, CBCD #### [facility] [address] [place] [address] Lymphocytes (Bld) [#/Vol] 3.5 10*3/uL Normal 1.3-4.4 [facility] Comment on above: Order Comment: FAX R ESULTS TO DR FLORENCE: [phone] Performed By: #### V ITB1, ZINC #### [facility] [address] [place] [address] #### B12, FOL, CMP, PREALB, ANDREZ, CBCD #### [facility] [address] [place] [address] 16743 Lymphocytes/100 WBC (Bld) 46.7 % High 27.0-41.0 [facility] Comment on above: Order Comment: FAX R ESULTS TO DR FLORENCE: [phone] Performed By: #### V ITB1, ZINC #### [facility] [address] [place] [address] #### B12, FOL, CMP, PREALB, ANDREZ, CBCD #### [facility] [address] [place] [address] 70446 MCV (RBC) [Entitic vol] 88.1 fL Normal 81.0-99.0 [facility] Comment on above: Order Comment: FAX R ESULTS TO DR FLORENCE: [phone] Performed By: #### V ITB1, ZINC #### [facility] [address] [place] [address] #### B12, FOL, CMP, PREALB, ANDREZ, CBCD #### [facility] [address] [place] [address] MEAN CORPUSCULAR HGB 28.8 pg Normal 27.0-31.0 [facility] Comment on above: Order Comment: FAX R ESULTS TO DR FLORENCE: [phone] Performed By: #### V ITB1, ZINC #### [facility] [address] [place] [address] #### B12, FOL, CMP, PREALB, ANDREZ, CBCD #### [facility] [address] [place] [address] MEAN CORPUSCULAR HGB CONC 32.6 g/dl Low 33.0-37.0 [facility] Comment on above: Order Comment: FAX R ESULTS TO DR FLORENCE: [phone] Performed By: #### V ITB1, ZINC #### [facility] [address] [place] [address] #### B12, FOL, CMP, PREALB, ANDREZ, CBCD #### [facility] [address] [place] [address] Monocytes (Bld) [#/Vol] 0.3 10*3/uL Normal 0.1-1.0 [facility] Comment on above: Order Comment: FAX R ESULTS TO DR FLORENCE: [phone] Performed By: #### V ITB1, ZINC #### [facility] [address] [place] [address] #### B12, FOL, CMP, PREALB, ANDREZ, CBCD #### [facility] [address] [place] [address] Monocytes/100 WBC (Bld) 4.3 % Normal 3.0-9.0 [facility] Comment on above: Order Comment: FAX R ESULTS TO DR FLORENCE: [phone] Performed By: #### V ITB1, ZINC #### [facility] [address] [place] [address] #### B12, FOL, CMP, PREALB, ANDREZ, CBCD #### [facility] [address] [place] [address] Neutrophils (Bld) [#/Vol] 3.4 10*3/uL Normal 2.3-7.9 [facility] Comment on above: Order Comment: FAX R ESULTS TO DR FLORENCE: [phone] Performed By: #### V ITB1, ZINC #### [facility] [address] [place] [address] #### B12, FOL, CMP, PREALB, ANDREZ, CBCD #### [facility] [address] [place] [address] Neutrophils/100 WBC (Bld) 44.8 % Low 47.0-73.0 [facility] Comment on above: Order Comment: FAX R ESULTS TO DR FLORENCE: [phone] Performed By: #### V ITB1, ZINC #### [facility] [address] [place] [address] #### B12, FOL, CMP, PREALB, ANDREZ, CBCD #### [facility] [address] [place] [address] NUCLEATED RED BLOOD CELL 0.0 10*3/uL Normal 0.0-0.0 [facility] Comment on above: Order Comment: FAX R ESULTS TO DR FLORENCE: [phone] Performed By: #### V ITB1, ZINC #### [facility] [address] [place] [address] #### B12, FOL, CMP, PREALB, ANDREZ, CBCD #### [facility] [address] [place] [address] 03887 NUCLEATED RED BLOOD CELL 0.0 % Normal 0.0-0.0 [facility] Comment on above: Order Comment: FAX R ESULTS TO DR FLORENCE: [phone] Performed By: #### V ITB1, ZINC #### [facility] [address] [place] [address] #### B12, FOL, CMP, PREALB, ANDREZ, CBCD #### [facility] [address] [place] [address] PLATELET COUNT AUTOMATED 347 10*3/uL Normal 130-400 [facility] Comment on above: Order Comment: FAX R ESULTS TO DR FLORENCE: [phone] Performed By: #### V ITB1, ZINC #### [facility] [address] [place] [address] #### B12, FOL, CMP, PREALB, ANDREZ, CBCD #### [facility] [address] [place] [address] Platelet mean volume (Bld) [Entitic vol] 9.9 fL Normal 9.6-12.3 [facility] Comment on above: Order Comment: FAX R ESULTS TO DR FLORENCE: [phone] Performed By: #### V ITB1, ZINC #### [facility] [address] [place] [address] #### B12, FOL, CMP, PREALB, ANDREZ, CBCD #### [facility] [address] [place] [address] RBC (Bld) [#/Vol] 4.97 10*6/uL Normal 4.10-5.10 [facility] Comment on above: Order Comment: FAX R ESULTS TO DR FLORENCE: [phone] Performed By: #### V ITB1, ZINC #### [facility] [address] [place] [address] #### B12, FOL, CMP, PREALB, ANDREZ, CBCD #### [facility] [address] [place] [address] 67162 RED CELL DISTRI WIDTH 13.2 % Normal 0-14.5 [facility] Comment on above: Order Comment: FAX R ESULTS TO DR FLORENCE: [phone] Performed By: #### V ITB1, ZINC #### [facility] [address] [place] [address] #### B12, FOL, CMP, PREALB, ANDREZ, CBCD #### [facility] [address] [place] [address] WBC (Bld) [#/Vol] 7.5 10*3/uL Normal 4.8-10.8 [facility] Comment on above: Order Comment: FAX R ESULTS TO DR FLORENCE: [phone] Performed By: #### V ITB1, ZINC #### [facility] [address] [place] [address] #### B12, FOL, CMP, PREALB, ANDREZ, CBCD #### [facility] [address] [place] [address] COMPREHENSIVE METABOLIC PANE Evan 11-06-2022 Albumin [Mass/Vol] 4.2 g/dL Normal 3.4-5.0 [facility] Comment on above: Order Comment: FAX R ESULTS TO DR FLORENCE: [phone] Performed By: #### V ITB1, ZINC #### [facility] [address] [place] [address] #### B12, FOL, CMP, PREALB, ANDREZ, CBCD #### [facility] [address] [place] [address] ALP [Catalytic activity/Vol] 59 U/L Normal 46-116 [facility] Comment on above: Order Comment: FAX R ESULTS TO DR FLORENCE: [phone] Performed By: #### V ITB1, ZINC #### [facility] [address] [place] [address] #### B12, FOL, CMP, PREALB, ANDREZ, CBCD #### [facility] [address] [place] [address] ALT [Catalytic activity/Vol] 30 U/L Normal 10-49 [facility] Comment on above: Order Comment: FAX R ESULTS TO DR FLORENCE: [phone] Performed By: #### V ITB1, ZINC #### [facility] [address] [place] [address] #### B12, FOL, CMP, PREALB, ANDREZ, CBCD #### [facility] [address] [place] [address] AST [Catalytic activity/Vol] 20 U/L Normal 0-34 [facility] Comment on above: Order Comment: FAX R ESULTS TO DR FLORENCE: [phone] Performed By: #### V ITB1, ZINC #### [facility] [address] [place] [address] #### B12, FOL, CMP, PREALB, ANDREZ, CBCD #### [facility] [address] [place] [address] Bilirubin [Mass/Vol] 0.5 mg/dL Normal 0.3-1.2 [facility] Comment on above: Order Comment: FAX R ESULTS TO DR FLORENCE: [phone] Performed By: #### V ITB1, ZINC #### [facility] [address] [place] [address] #### B12, FOL, CMP, PREALB, ANDREZ, CBCD #### [facility] [address] [place] [address]990 CALCIUM,TOTAL 9.3 md/dL Normal 8.7-10.[address] [facility] Comment on above: Order Comment: FAX R ESULTS TO DR FLORENCE: [phone] Performed By: #### V ITB1, ZINC #### [facility] [address] [place] [address] #### B12, FOL, CMP, PREALB, ANDREZ, CBCD #### [facility] [address] [place] [address] Chloride [Moles/Vol] 103 mmol/L Normal 98-107 [facility] Comment on above: Order Comment: FAX R ESULTS TO DR FLORENCE: [phone] Performed By: #### V ITB1, ZINC #### [facility] [address] [place] [address] #### B12, FOL, CMP, PREALB, ANDREZ, CBCD #### [facility] [address] [place] [address] CO2 [Moles/Vol] 23 mmol/L Normal 20-31 [facility] Comment on above: Order Comment: FAX R ESULTS TO DR FLORENCE: [phone] Performed By: #### V ITB1, ZINC #### [facility] [address] [place] [address] #### B12, FOL, CMP, PREALB, ANDREZ, CBCD #### [facility] [address] [place] [address] Creatinine [Mass/Vol] 0.58 mg/dL Normal 0.55-1.02 [facility] Comment on above: Order Comment: FAX R ESULTS TO DR FLORENCE: [phone] Performed By: #### V ITB1, ZINC #### [facility] [address] [place] [address] #### B12, FOL, CMP, PREALB, ANDREZ, CBCD #### [facility] [address] [place] [address] EST GLOM FILT > 60 Normal [facility] Comment on above: Order Comment: FAX R ESULTS TO DR FLORENCE: [phone] Result Comment: Result Units: mL/min/1.73 m2 Note: Persistent reduction for 3 months or more of an eGFR of <60 ml/min/1.73 m2 defines Chronic Kidney Disease (CKD). Patients with eGFR values greater than or equal to 60 ml/min/1.73 m2 may also have CKD if evidence of persistent proteinuria is present. STAGES OF CKD eGFR Stage 1 Kidney damage with normal kidney function >=90 Stage 2 Kidney damage with mild loss of kidney function 89-60 Stage 3a Mild to moderate loss of kidney function 59-44 Stage 3b Moderate to severe loss of kidney function 43-30 Stage 4 Severe loss of kidney function 29-15 Stage 5 Kidney failure < 15 . Performed By: #### V ITB1, ZINC #### [facility] [address] [place] [address] #### B12, FOL, CMP, PREALB, ANDREZ, CBCD #### [facility] [address] [place] [address] ESTIMATED GLOM FILT RATE > 60 Normal [facility] Comment on above: Order Comment: FAX R ESULTS TO DR FLORENCE: Performed By: #### V ITB1, ZINC #### [facility] [address] [place] [address] #### B12, FOL, CMP, PREALB, ANDREZ, CBCD #### [facility] [address] [place] [address] Glucose [Mass/Vol] 92 mg/dL Normal 65-99 [facility] Comment on above: Order Comment: FAX R ESULTS TO DR FLORENCE: Performed By: #### V ITB1, ZINC #### [facility] [address] [place] [address] #### B12, FOL, CMP, PREALB, ANDREZ, CBCD #### [facility] [address] [place] [address] Potassium [Moles/Vol] 3.9 mmol/L Normal 3.4-5.1 [facility] Comment on above: Order Comment: FAX R ESULTS TO DR FLORENCE: Performed By: #### V ITB1, ZINC #### [facility] [address] [place] [address] #### B12, FOL, CMP, PREALB, ANDREZ, CBCD #### [facility] [address] [place] [address] Protein [Mass/Vol] 7.3 g/dL Normal 6.0-8.0 [facility] Comment on above: Order Comment: FAX R ESULTS TO DR FLORENCE: Performed By: #### V ITB1, ZINC #### [facility] [address] [place] [address] #### B12, FOL, CMP, PREALB, ANDREZ, CBCD #### [facility] [address] [place] [address] Sodium [Moles/Vol] 137 mmol/L Normal 136-145 [facility] Comment on above: Order Comment: FAX R ESULTS TO DR FLORENCE: [phone] Performed By: #### V ITB1, ZINC #### [facility] [address] [place] [address] #### B12, FOL, CMP, PREALB, ANDREZ, CBCD #### [facility] [address] [place] [address] Urea nitrogen [Mass/Vol] 12 mg/dL Normal 9-23 [facility] Comment on above: Order Comment: FAX R ESULTS TO DR FLORENCE: [phone] Performed By: #### V ITB1, ZINC #### [facility] [address] [place] [address] #### B12, FOL, CMP, PREALB, ANDREZ, CBCD #### [facility] [address] [place] [address] Basic Metabolic Panelon 05-0 Anion gap [Moles/Vol] 11 mmol/L Normal 7-16 [facility] Calcium [Mass/Vol] 8.9 mg/dL Normal 8.6-10.2 [facility] Chloride [Moles/Vol] 104 mmol/L Normal 98-107 [facility] CO2 [Moles/Vol] 25 mmol/L Normal 22-29 [facility] Creatinine [Mass/Vol] 0.6 mg/dL Normal 0.5-1.0 [facility] GFR Calculated >60 Normal >=60 [facility] Comment on above: Result Comment: Pedi atric calculator link https://www.kidney.org/professionals/kdoqi/gfr_calculatorped Effective Apr 02, 2022 These results are not intended for use in patients <18 years of age. eGFR results are calculated without a race factor using the 2020 CKD-EPI equation. Careful clinical correlation is recommended, particularly when comparing to results calculated using previous equations. The CKD-EPI equation is less accurate in patients with extremes of muscle mass, extra-renal metabolism of creatinine, excessive creatinine ingestion, or following therapy that affects renal tubular secretion. Glucose [Mass/Vol] 117 mg/dL High 74-99 [facility] Potassium [Moles/Vol] 4.3 mmol/L Normal 3.5-5.0 [facility] Sodium [Moles/Vol] 140 mmol/L Normal 132-146 [facility] Urea nitrogen [Mass/Vol] 13 mg/dL Normal 6-20 [facility] Basic metabolic 2000 panelon 10-30-2022 Anion gap [Moles/Vol] 11 mmol/L 7 - 16 mmol/L [facility] Calcium [Mass/Vol] 8.9 mg/dL 8.6 - 10. 2 mg/dL [facility] Chloride [Moles/Vol] 104 mmol/L 98 - 10 7 mmol/L [facility] CO2 [Moles/Vol] 25 mmol/L 22 - 29 mmol/L [facility] Creatinine [Mass/Vol] 0.6 mg/dL 0.5 - 1.0 mg/dL [facility] GFR/1.73 sq M.predicted among non-blacks MDRD (S/P/Bld) [Vol rate/Area] mL/min/1.73 60 - PINF mL/min/1.73 [facility] Comment on above: Pediatric calculator link https://www.kidney.org/professionals/kdoqi/gfr_calculatorped Effective Apr 02, 2022 These results are not intended for use in patients <18 years of age. eGFR results are calculated without a race factor using the 2020 CKD-EPI equation. Careful clinical correlation is recommended, particularly when comparing to results calculated using previous equations. The CKD-EPI equation is less accurate in patients with extremes of muscle mass, extra-renal metabolism of creatinine, excessive creatinine ingestion, or following therapy that affects renal tubular secretion. Glucose [Mass/Vol] 117 mg/dL High 74 - 99 mg/dL [facility] Potassium [Moles/Vol] 4.3 mmol/L 3.5 - 5.0 mmol/L [facility] Sodium [Moles/Vol] 140 mmol/L 132 - 146 mmol/L [facility] Urea nitrogen [Mass/Vol] 13 mg/dL 6 - 20 mg/dL [facility] CBC With Platelet and Differ entialon 10-30-2022 Abs Imm Granulocytes 0.07 E9/L Normal [facility] Absolute Basophils 0.01 E9/L Normal 0.00-0.20 [facility] Absolute Eosinophils 0.00 E9/L Low 0.05-0.50 [facility] Absolute Lymphocytes 1.89 E9/L Normal 1.50-4.00 [facility] Absolute Monocytes 0.73 E9/L Normal 0.10-0.95 [facility] Absolute Neutrophils 9.02 E9/L High 1.80-7.30 [facility] Basophils/100 WBC (Bld) 0.1 % Normal 0.0-2.0 [facility] Eosinophils/100 WBC (Bld) 0.0 % Normal 0.0-6.0 [facility] Hematocrit (Bld) [Volume fraction] 38.2 % Normal 34.0-48.0 [facility] Hemoglobin (Bld) [Mass/Vol] 12.2 g/dL Normal 11.5-15.5 [facility] Imm Granulocytes 0.6 % Normal 0.0-5.0 [facility] Lymphocytes/100 WBC (Bld) 16.1 % Low 20.0-42.0 [facility] MCH (RBC) [Entitic mass] 29.2 pg Normal 26.0-35.0 [facility] MCHC 31.9 % Low 32.0-34.5 [facility] MCV (RBC) [Entitic vol] 91.4 fL Normal 80.0-99.9 [facility] Monocytes/100 WBC (Bld) 6.2 % Normal 2.0-12.0 [facility] Neutrophils/100 WBC (Bld) 77.0 % Normal 43.0-80.0 [facility] Platelet Count 285 E9/L Normal 130-450 [facility] Platelet mean volume (Bld) [Entitic vol] 10.4 fL Normal 7.0-12.0 [facility] RBC 4.18 E12/L Normal 3.50-5.50 [facility] RDW 13.2 fL Normal 11.5-15.0 [facility] WBC 11.7 E9/L High 4.5-11.5 [facility] CBC with Auto Differentialon 10-30-2022 Basophils (Bld) [#/Vol] 0.01 10*3/uL [facility] Basophils/100 WBC (Bld) 0.1 % 0.0 - 2.0 % [facility] Eosinophils (Bld) [#/Vol] 0.00 10*3/uL Low [facility] Eosinophils/100 WBC (Bld) 0 % 0.0 - 6.0 % [facility] Erythrocyte distribution width (RBC) [Ratio] 13.2 fL 11.5 - 15.0 fL [facility] Hematocrit (Bld) [Volume fraction] 38.2 % 34.0 - 48.0 % [facility] Hemoglobin (Bld) [Mass/Vol] 12.2 g/dL 11.5 - 15.5 g/dL [facility] Immature granulocytes (Bld) [#/Vol] 0.07 10*3/uL E9/L [facility] Immature granulocytes/100 WBC (Bld) 0.6 % 0.0 - 5.0 % [facility] Interpretation and review of laboratory results Abnormal [facility] Lymphocytes (Bld) [#/Vol] 1.89 10*3/uL [facility] Lymphocytes/100 WBC (Bld) 16.1 % Low 20.0 - 42.0 % [facility] MCH (RBC) [Entitic mass] 29.2 pg 26.0 - 35.0 pg [facility] MCHC (RBC) [Mass/Vol] 31.9 % Low 32.0 - 34.5 % [facility] MCV (RBC) [Entitic vol] 91.4 fL 80.0 - 99.9 fL [facility] Monocytes (Bld) [#/Vol] 0.73 10*3/uL [facility] Monocytes/100 WBC (Bld) 6.2 % 2.0 - 12.0 % [facility] Neutrophils (Bld) [#/Vol] 9.02 10*3/uL High [facility] Platelet mean volume (Bld) [Entitic vol] 10.4 fL 7.0 - 12.0 fL [facility] Platelets (Bld) [#/Vol] 285 10*3/uL [facility] RBC (Bld) [#/Vol] 4.18 10*6/uL [facility] Segmented neutrophils/100 WBC (Bld) 77.0 % 43.0 - 80.0 % [facility] WBC (Bld) [#/Vol] 11.7 10*3/uL High [facility] Hepatic Function Panelon Albumin [Mass/Vol] 3.7 g/dL 3.5 - 5.2 g/dL [facility] ALP [Catalytic activity/Vol] 55 U/L 35 - 104 U/L [facility] ALT [Catalytic activity/Vol] 19 U/L 0 - 32 U/L [facility] AST [Catalytic activity/Vol] 14 U/L 0 - 31 U/L [facility] Bilirubin [Mass/Vol] 0.5 mg/dL 0.0 - 1 .2 mg/dL [facility] Bilirubin.direct [Mass/Vol] mg/dL 0.0 - 0.3 mg/dL [facility] Bilirubin.indirect [Mass/Vol] see below 0.0 - 1.0 mg/dL [facility] Comment on above: Indirect Bilirubin c annot be calculated since Total Bilirubin and/or Direct Bilirubin is below measurable range. Protein [Mass/Vol] 6.3 g/dL Low 6.4 - 8.3 g/dL [facility] Hgb A1Con 10-30-2022 HbA1c (Bld) [Mass fraction] 4.8 % Normal 4.0-5.6 [facility] Lipid Panelon 10-30-2022 Cholesterol [Mass/Vol] 99 mg/dL Normal 0-199 [facility] Cholesterol in HDL [Mass/Vol] 34 mg/dL Normal >40 [facility] Cholesterol in LDL [Mass/Vol] 43 mg/dL Normal 0-99 [facility] Triglyceride [Mass/Vol] 108 mg/dL Normal 0-149 [facility] VLDL Cholesterol (Calculated) 22 mg/dL Normal [facility] Cholesterol [Mass/Vol] 99 mg/dL 0 - 1 99 mg/dL [facility] Cholesterol in HDL [Mass/Vol] 34 mg/dL 40 - PINF mg/dL [facility] Cholesterol in LDL [Mass/Vol] 43 mg/dL 0 - 99 mg/dL [facility] Cholesterol in VLDL [Mass/Vol] 22 mg/dL [facility] Triglyceride [Mass/Vol] 108 mg/dL 0 - 149 mg/dL [facility] Liver Panelon 10-30-2022 Albumin [Mass/Vol] 3.7 g/dL Normal 3.5-5.2 [facility] ALP [Catalytic activity/Vol] 55 U/L Normal 35-104 [facility] ALT [Catalytic activity/Vol] 19 U/L Normal 0-32 [facility] AST [Catalytic activity/Vol] 14 U/L Normal 0-31 [facility] Bilirubin [Mass/Vol] 0.5 mg/dL Normal 0.0-1.2 [facility] Bilirubin Indirect see below Normal 0.0-1.0 [facility] Comment on above: Result Comment: Grace rect Bilirubin cannot be calculated since Total Bilirubin and/or Direct Bilirubin is below measurable range. Bilirubin.indirect [Mass/Vol] mg/dL Normal 0.0-0.3 [facility] Protein [Mass/Vol] 6.3 g/dL Low 6.4-8.3 [facility] METER GLUCOSEon 10-30-2022 Glucose [Mass/Vol] 111 mg/dL High 74-99 [facility] Magnesiumon 10-30-2022 Magnesium [Mass/Vol] 1.7 mg/dL Normal 1.6-2.6 [facility] Magnesium [Mass/Vol] 1.7 mg/dL 1.6 - 2 .6 mg/dL [facility] No Panel Informationon 10-30 Interpretation and review of laboratory results Abnormal [facility] POCT Glucoseon 10-30-2022 Glucose [Mass/Vol] 111 mg/dL High 74 - 99 mg/dL [facility] Interpretation and review of laboratory results Abnormal [facility] Phosphoruson 10-30-2022 Phosphate [Mass/Vol] 4.0 mg/dL Normal 2.5-4.5 [facility] Phosphate [Mass/Vol] 4.0 mg/dL 2.5 - 4 .5 mg/dL [facility] T4, Freeon 10-30-2022 Free T4 [Mass/Vol] 1.32 ng/dL 0.93 - 1. 70 ng/dL [facility] TSHon 10-30-2022 TSH [Mass/Vol] 0.828 [facility] TSH w/out Reflexon TSH w/out Reflex 0.828 uIU/mL Normal 0.270-4.200 [facility] Thyroxine Freeon 10-30-2022 Thyroxine Free 1.32 ng/dL Normal 0.93-1.70 [facility] Comprehensive Metabolic Pane evan 10-29-2022 Potassium see note Critically abnormal 3.5-5.0 [facility] Comment on above: Result Comment: Lisa cui order. Made no charge to patient for testing Corrected result; previously reported as 4.3 on 10/24/2022 at 19:57 by JESUS Hemoglobin A1con 10-29-2022 HbA1c (Bld) [Mass fraction] 5.1 % 4.0 - 5.6 % [facility] Hgb A1Con 10-29-2022 HbA1c (Bld) [Mass fraction] 5.1 % Normal 4.0-5.6 [facility] METER GLUCOSEon 10-29-2022 Glucose [Mass/Vol] 128 mg/dL High 74-99 [facility] Glucose [Mass/Vol] 146 mg/dL High 74-99 [facility] Glucose [Mass/Vol] 104 mg/dL High 74-99 [facility] Glucose [Mass/Vol] 101 mg/dL High 74-99 [facility] No Panel Informationon 10-29 [facility] [employer] POC Urine Qualon 0 10-29-2022 Beta HCG ( test) Ql (U) Negative Negative [facility] [employer] Work Phone: Beta HCG ( test) Ql (U) [id number] [facility] Work Phone: Negative QC Pass/Fail Pass [facility] [employer] Work Phone: Positive QC Pass/Fail Pass [facility] Work Phone: POCT Glucoseon 10-29-2022 Glucose [Mass/Vol] 128 mg/dL High 74 - 99 mg/dL [facility] Interpretation and review of laboratory results Abnormal [facility] Glucose [Mass/Vol] 146 mg/dL High 74 - 99 mg/dL [facility] Interpretation and review of laboratory results Abnormal [facility] Glucose [Mass/Vol] 104 mg/dL High 74 - 99 mg/dL [facility] Interpretation and review of laboratory results Abnormal [facility] Glucose [Mass/Vol] 101 mg/dL High 74 - 99 mg/dL [facility] Interpretation and review of laboratory results Abnormal [facility] Surgical Specimenon 10-30-19 Surgical Specimen [place] [id number] FINAL SURGICAL PATHOLOGY REPORT NAME: BATOOL KINGSLEY Date of 10/29/2022 Collection: Medical Record [id number] Date of 10/29/2022 Number: Receipt: Age: 22 Y Sex: F Date 10/31/2022 12:02 Reported: Date Of : 2000 Financial [id number] Admitting DERIC FLORENCE Number: Physician: Patient DIS [id number] Ordering DERIC FLORENCE Location: Physician: Accession Number: [id number] Additional Physicians:KAELA ARELLANO Diagnosis: Small intestine, limited resection: No diagnostic abnormality. SHANTA CAUSEY M.D. (Electronic Signature) Specimen Submitted: SMALL INTESTINE, RESECTION NOT TUMOR Clinical Notes: Operative Procedure: Gastric bypass Nuno-en-Y laparoscopic Preoperative Dx: Morbid obesity Microscopic Evaluation: Was performed. Gross Description: Submitted in one part in formalin labeled Batool Kingsley, jennifer small bowel is an oval shaped portion of hanson haq mucosal lined fibrous tissue, sales representative health insurance or portions of small bowel which measures 4.1 x 2.5 x 1.7 cm. Much of the exterior is covered by hanson haq, soft to finely folded mucosa. Numerous, small metallic surgical [place] are present throughout the exterior. Discrete mucosal lesions are not present. Sectioning is unremarkable. Tray Packer sections are submitted. Block label A1. (CEM) CODES: [id number]; Department of Pathology Page 1 of 1 Normal [facility] CBC (Hemogram)on 10-24-2022 Erythrocyte distribution width (RBC) [Ratio] 13.7 fL 11.5 - 15.0 fL [facility] Hematocrit (Bld) [Volume fraction] 43.9 % 34.0 - 48.0 % [facility] Hemoglobin (Bld) [Mass/Vol] 14.3 g/dL 11.5 - 15.5 g/dL [facility] MCH (RBC) [Entitic mass] 28.9 pg 26.0 - 35.0 pg [facility] MCHC (RBC) [Mass/Vol] 32.6 % 32.0 - 34.5 % [facility] MCV (RBC) [Entitic vol] 88.9 fL 80.0 - 99.9 fL [facility] Platelet mean volume (Bld) [Entitic vol] 10.6 fL 7.0 - 12.0 fL [facility] Platelets (Bld) [#/Vol] 321 10*3/uL [facility] RBC (Bld) [#/Vol] 4.94 10*6/uL [facility] WBC (Bld) [#/Vol] 7.0 10*3/uL [facility] CBC With Platelet No Differe ntialon 10-24-2022 Hematocrit (Bld) [Volume fraction] 43.9 % Normal 34.0-48.0 [facility] Hemoglobin (Bld) [Mass/Vol] 14.3 g/dL Normal 11.5-15.5 [facility] MCH (RBC) [Entitic mass] 28.9 pg Normal 26.0-35.0 [facility] MCHC 32.6 % Normal 32.0-34.5 [facility] MCV (RBC) [Entitic vol] 88.9 fL Normal 80.0-99.9 [facility] Platelet Count 321 E9/L Normal 130-450 [facility] Platelet mean volume (Bld) [Entitic vol] 10.6 fL Normal 7.0-12.0 [facility] RBC 4.94 E12/L Normal 3.50-5.50 [facility] RDW 13.7 fL Normal 11.5-15.0 [facility] WBC 7.0 E9/L Normal 4.5-11.5 [facility] Comprehensive Metabolic Pane l reflex Mgon 10-24-2022 Albumin [Mass/Vol] 4.6 g/dL Normal 3.5-5.2 [facility] ALP [Catalytic activity/Vol] 69 U/L Normal 35-104 [facility] ALT [Catalytic activity/Vol] 27 U/L Normal 0-32 [facility] Anion gap [Moles/Vol] 12 mmol/L Normal 7-16 [facility] AST [Catalytic activity/Vol] 16 U/L Normal 0-31 [facility] Bilirubin [Mass/Vol] 0.4 mg/dL Normal 0.0-1.2 [facility] Calcium [Mass/Vol] 9.3 mg/dL Normal 8.6-10.2 [facility] Chloride [Moles/Vol] 104 mmol/L Normal 98-107 [facility] CO2 [Moles/Vol] 24 mmol/L Normal 22-29 [facility] Creatinine [Mass/Vol] 0.6 mg/dL Normal 0.5-1.0 [facility] GFR Calculated >60 Normal >=60 [facility] Comment on above: Result Comment: Dion atric calculator link https://www.kidney.org/professionals/kdoqi/gfr_calculatorped Effective Apr 02, 2022 These results are not intended for use in patients <18 years of age. eGFR results are calculated without a race factor using the 2020 CKD-EPI equation. Careful clinical correlation is recommended, particularly when comparing to results calculated using previous equations. The CKD-EPI equation is less accurate in patients with extremes of muscle mass, extra-renal metabolism of creatinine, excessive creatinine ingestion, or following therapy that affects renal tubular secretion. Glucose [Mass/Vol] 79 mg/dL Normal 74-99 [facility] Magnesium [Moles/Vol] 4.3 mmol/L Normal 3.5-5.0 [facility] Protein [Mass/Vol] 7.6 g/dL Normal 6.4-8.3 [facility] Sodium [Moles/Vol] 140 mmol/L Normal 132-146 [facility] Urea nitrogen [Mass/Vol] 13 mg/dL Normal 6-20 [facility] Comprehensive metabolic 2000 panelon 10-24-2022 Potassium [Moles/Vol] 4.3 mmol/L 3.5 - 5.0 mmol/L [facility] Albumin [Mass/Vol] 4.6 g/dL 3.5 - 5.2 g/dL [facility] ALP [Catalytic activity/Vol] 69 U/L 35 - 104 U/L [facility] ALT [Catalytic activity/Vol] 27 U/L 0 - 32 U/L [facility] Anion gap [Moles/Vol] 12 mmol/L 7 - 16 mmol/L [facility] AST [Catalytic activity/Vol] 16 U/L 0 - 31 U/L [facility] Bilirubin [Mass/Vol] 0.4 mg/dL 0.0 - 1 .2 mg/dL [facility] Calcium [Mass/Vol] 9.3 mg/dL 8.6 - 10. 2 mg/dL [facility] Chloride [Moles/Vol] 104 mmol/L 98 - 10 7 mmol/L [facility] CO2 [Moles/Vol] 24 mmol/L 22 - 29 mmol/L [facility] Creatinine [Mass/Vol] 0.6 mg/dL 0.5 - 1.0 mg/dL [facility] GFR/1.73 sq M.predicted among non-blacks MDRD (S/P/Bld) [Vol rate/Area] mL/min/1.73 60 - PINF mL/min/1.73 [facility] Comment on above: Pediatric calculator link https://www.kidney.org/professionals/kdoqi/gfr_calculatorped Effective Apr 02, 2022 These results are not intended for use in patients <18 years of age. eGFR results are calculated without a race factor using the 2020 CKD-EPI equation. Careful clinical correlation is recommended, particularly when comparing to results calculated using previous equations. The CKD-EPI equation is less accurate in patients with extremes of muscle mass, extra-renal metabolism of creatinine, excessive creatinine ingestion, or following therapy that affects renal tubular secretion. Glucose [Mass/Vol] 79 mg/dL 74 - 99 mg/dL [facility] Potassium [Moles/Vol] 4.3 mmol/L 3.5 - 5.0 mmol/L [facility] Protein [Mass/Vol] 7.6 g/dL 6.4 - 8.3 g/dL [facility] Sodium [Moles/Vol] 140 mmol/L 132 - 146 mmol/L [facility] Urea nitrogen [Mass/Vol] 13 mg/dL 6 - 20 mg/dL [facility] ACT PARTIAL THROMBO TIMEon 0 - ACT PARTIAL THROMBO TIME 30.4 SECONDS Normal 20.0-32.1 [facility] Comment on above: Result Comment: APTT THERAPEUTIC RANGE = 43.6 TO 68.4 SECONDS Performed By: #### V ITB1, ZINC #### [facility] [address] [place] [address] #### B12, FOL, CMP, PREALB, ANDREZ, CBCD #### [facility] [address] [place] [address] CBC with DIFFERENTIALon 04-0 Basophils (Bld) [#/Vol] 0.0 10*3/uL Normal 0.0-0.1 [facility] Comment on above: Performed By: #### V ITB1, ZINC #### [facility] [address] [place] [address] #### B12, FOL, CMP, PREALB, ANDREZ, CBCD #### [facility] [address] [place] [address] Basophils/100 WBC (Bld) 0.5 % Normal 0.0-1.0 [facility] Comment on above: Performed By: #### V ITB1, ZINC #### [facility] [address] [place] [address] #### B12, FOL, CMP, PREALB, ANDREZ, CBCD #### [facility] [address] [place] [phone] Eosinophils (Bld) [#/Vol] 0.3 10*3/uL Normal 0.0-0.4 [facility] Comment on above: Performed By: #### V ITB1, ZINC #### [facility] [address] [place] [address] #### B12, FOL, CMP, PREALB, ANDREZ, CBCD #### [facility] [address] [place] [phone] Eosinophils/100 WBC (Bld) 4.1 % High 1.0-4.0 [facility] Comment on above: Performed By: #### V ITB1, ZINC #### [facility] [address] [place] [phone] #### B12, FOL, CMP, PREALB, ANDREZ, CBCD #### [facility] [address] [place] [address] Hematocrit (Bld) [Volume fraction] 40.6 % Normal 37.0-47.0 [facility] Comment on above: Performed By: #### V ITB1, ZINC #### [facility] [address] [place] [phone] #### B12, FOL, CMP, PREALB, ANDREZ, CBCD #### [facility] [address] [place] [phone] Hemoglobin (Bld) [Mass/Vol] 13.2 g/dL Normal 12.0-16.0 [facility] Comment on above: Performed By: #### V ITB1, ZINC #### [facility] [address] [place] [address] #### B12, FOL, CMP, PREALB, ANDREZ, CBCD #### [facility] [address] [place] [address] IG # 0.0 10*3/uL Normal 0.0-0.1 [facility] Comment on above: Performed By: #### V ITB1, ZINC #### [facility] [address] [place] [address] #### B12, FOL, CMP, PREALB, ANDREZ, CBCD #### [facility] [address] [place] [phone] IG % 0.5 % Normal 0.0-1.0 [facility] Comment on above: Performed By: #### V ITB1, ZINC #### [facility] [address] [place] [phone] #### B12, FOL, CMP, PREALB, ANDREZ, CBCD #### [facility] [address] [place] [phone] Lymphocytes (Bld) [#/Vol] 3.2 10*3/uL Normal 1.3-4.4 [facility] Comment on above: Performed By: #### V ITB1, ZINC #### [facility] [address] [place] [phone] #### B12, FOL, CMP, PREALB, ANDREZ, CBCD #### [facility] [address] [place] [phone] Lymphocytes/100 WBC (Bld) 41.8 % High 27.0-41.0 [facility] Comment on above: Performed By: #### V ITB1, ZINC #### [facility] [address] [place] [phone] #### B12, FOL, CMP, PREALB, ANDREZ, CBCD #### [facility] [address] [place] [phone] MCV (RBC) [Entitic vol] 88.6 fL Normal 81.0-99.0 [facility] Comment on above: Performed By: #### V ITB1, ZINC #### [facility] [address] [place] [address] #### B12, FOL, CMP, PREALB, ANDREZ, CBCD #### [facility] [address] [place] [address] MEAN CORPUSCULAR HGB 28.8 pg Normal 27.0-31.0 [facility] Comment on above: Performed By: #### V ITB1, ZINC #### [facility] [address] [place] [address] #### B12, FOL, CMP, PREALB, ANDREZ, CBCD #### [facility] [address] [place] [address] MEAN CORPUSCULAR HGB CONC 32.5 g/dl Low 33.0-37.0 [facility] Comment on above: Performed By: #### V ITB1, ZINC #### [facility] [address] [place] [address] #### B12, FOL, CMP, PREALB, ANDREZ, CBCD #### [facility] [address] [place] [address] Monocytes (Bld) [#/Vol] 0.4 10*3/uL Normal 0.1-1.0 [facility] Comment on above: Performed By: #### V ITB1, ZINC #### [facility] [address] [place] [address] #### B12, FOL, CMP, PREALB, ANDREZ, CBCD #### [facility] [address] [place] [address] Monocytes/100 WBC (Bld) 5.1 % Normal 3.0-9.0 [facility] Comment on above: Performed By: #### V ITB1, ZINC #### [facility] [address] [place] [address] #### B12, FOL, CMP, PREALB, ANDREZ, CBCD #### [facility] [address] [place] [address] Neutrophils (Bld) [#/Vol] 3.7 10*3/uL Normal 2.3-7.9 [facility] Comment on above: Performed By: #### V ITB1, ZINC #### [facility] [address] [place] [address] #### B12, FOL, CMP, PREALB, ANDREZ, CBCD #### [facility] [address] [place] [address] 61136 Neutrophils/100 WBC (Bld) 48.0 % Normal 47.0-73.0 [facility] Comment on above: Performed By: #### V ITB1, ZINC #### [facility] [address] [place] [address] #### B12, FOL, CMP, PREALB, ANDREZ, CBCD #### [facility] [address] [place] [address] 68185 NUCLEATED RED BLOOD CELL 0.0 10*3/uL Normal 0.0-0.0 [facility] Comment on above: Performed By: #### V ITB1, ZINC #### [facility] [address] [place] [address] #### B12, FOL, CMP, PREALB, ANDREZ, CBCD #### [facility] [address] [place], [place] [address] NUCLEATED RED BLOOD CELL 0.0 % Normal 0.0-0.0 [facility] Comment on above: Performed By: #### V ITB1, ZINC #### [facility] [address] [place] [address] #### B12, FOL, CMP, PREALB, ANDREZ, CBCD #### [facility] [address] [place] [address] 92863 PLATELET COUNT AUTOMATED 300 10*3/uL Normal 130-400 [facility] Comment on above: Performed By: #### V ITB1, ZINC #### [facility] [address] [place] [address] #### B12, FOL, CMP, PREALB, ANDREZ, CBCD #### [facility] [address] [place] [address] 53746 Platelet mean volume (Bld) [Entitic vol] 10.7 fL Normal 9.6-12.3 [facility] Comment on above: Performed By: #### V ITB1, ZINC #### [facility] [address] [place] [address] #### B12, FOL, CMP, PREALB, ANDREZ, CBCD #### [facility] [address] [place] [address] RBC (Bld) [#/Vol] 4.58 10*6/uL Normal 4.10-5.10 [facility] Comment on above: Performed By: #### V ITB1, ZINC #### [facility] [address] [place] [address] #### B12, FOL, CMP, PREALB, ANDREZ, CBCD #### [facility] [address] [place] [address] 55787 RED CELL DISTRI WIDTH 13.3 % Normal 0-14.5 [facility] Comment on above: Performed By: #### V ITB1, ZINC #### [facility] [address] [place] [address] #### B12, FOL, CMP, PREALB, ANDREZ, CBCD #### [facility] [address] [place] [address] 90179 WBC (Bld) [#/Vol] 7.6 10*3/uL Normal 4.8-10.8 [facility] Comment on above: Performed By: #### V ITB1, ZINC #### [facility] [address] [place] [address] #### B12, FOL, CMP, PREALB, ANDREZ, CBCD #### [facility] [address] [place] [address] 34565 COMPREHENSIVE METABOLIC PANE Evan 10-04-2022 Albumin [Mass/Vol] 3.8 g/dL Normal 3.4-5.0 [facility] Comment on above: Performed By: #### V ITB1, ZINC #### [facility] [address] [place] [address] #### B12, FOL, CMP, PREALB, ANDREZ, CBCD #### [facility] [address] [place] [address] 01909 ALP [Catalytic activity/Vol] 63 U/L Normal 46-116 [facility] Comment on above: Performed By: #### V ITB1, ZINC #### [facility] [address] [place] [address] #### B12, FOL, CMP, PREALB, ANDREZ, CBCD #### [facility] [address] [place] [address] 85152 ALT [Catalytic activity/Vol] 18 U/L Normal 10-49 [facility] Comment on above: Performed By: #### V ITB1, ZINC #### [facility] [address] [place] [address] #### B12, FOL, CMP, PREALB, ANDREZ, CBCD #### [facility] [address] [place] [address] 93062 AST [Catalytic activity/Vol] 15 U/L Normal 0-34 [facility] Comment on above: Performed By: #### V ITB1, ZINC #### [facility] [address] [place] [address] #### B12, FOL, CMP, PREALB, ANDREZ, CBCD #### [facility] [address] [place] [address] 35487 Bilirubin [Mass/Vol] 0.3 mg/dL Normal 0.3-1.2 [facility] Comment on above: Performed By: #### V ITB1, ZINC #### [facility] [address] [place] [address] #### B12, FOL, CMP, PREALB, ANDREZ, CBCD #### [facility] [address] [place] [address] 35178 CALCIUM,TOTAL 9.2 md/dL Normal 8.7-10.[address] [facility] Comment on above: Performed By: #### V ITB1, ZINC #### [facility] [address] [place] [address] #### B12, FOL, CMP, PREALB, ANDREZ, CBCD #### [facility] [address] [place] [address] 88722 Chloride [Moles/Vol] 105 mmol/L Normal 98-107 [facility] Comment on above: Performed By: #### V ITB1, ZINC #### [facility] [address] [place] [address] #### B12, FOL, CMP, PREALB, ANDREZ, CBCD #### [facility] [address] [place] [address] CO2 [Moles/Vol] 27 mmol/L Normal 20-31 [facility] Comment on above: Performed By: #### V ITB1, ZINC #### [facility] [address] [place] [address] #### B12, FOL, CMP, PREALB, ANDREZ, CBCD #### [facility] [address] [place] [address] Creatinine [Mass/Vol] 0.61 mg/dL Normal 0.55-1.02 [facility] Comment on above: Performed By: #### V ITB1, ZINC #### [facility] [address] [place] [address] #### B12, FOL, CMP, PREALB, ANDREZ, CBCD #### [facility] [address] [place] [address] EST GLOM FILT > 60 Normal [facility] Comment on above: Result Comment: Result Units: mL/min/1.73 m2 Note: Persistent reduction for 3 months or more of an eGFR of <60 ml/min/1.73 m2 defines Chronic Kidney Disease (CKD). Patients with eGFR values greater than or equal to 60 ml/min/1.73 m2 may also have CKD if evidence of persistent proteinuria is present. STAGES OF CKD eGFR Stage 1 Kidney damage with normal kidney function >=90 Stage 2 Kidney damage with mild loss of kidney function 89-60 Stage 3a Mild to moderate loss of kidney function 59-44 Stage 3b Moderate to severe loss of kidney function 43-30 Stage 4 Severe loss of kidney function 29-15 Stage 5 Kidney failure < 15 . Performed By: #### V ITB1, ZINC #### [facility] [address] [place] [address] #### B12, FOL, CMP, PREALB, ANDREZ, CBCD #### [facility] [address] [place] [address] ESTIMATED GLOM FILT RATE > 60 Normal [facility] Comment on above: Performed By: #### V ITB1, ZINC #### [facility] [address] [place] [address] #### B12, FOL, CMP, PREALB, ANDREZ, CBCD #### [facility] [address] [place] [address] Glucose [Mass/Vol] 87 mg/dL Normal 65-99 [facility] Comment on above: Performed By: #### V ITB1, ZINC #### [facility] [address] [place] [address] #### B12, FOL, CMP, PREALB, ANDREZ, CBCD #### [facility] [address] [place] [address] 60903 Potassium [Moles/Vol] 4.2 mmol/L Normal 3.4-5.1 [facility] Comment on above: Performed By: #### V ITB1, ZINC #### [facility] [address] [place] [address] #### B12, FOL, CMP, PREALB, ANDREZ, CBCD #### [facility] [address] [place] [address] 47117 Protein [Mass/Vol] 6.9 g/dL Normal 6.0-8.0 [facility] Comment on above: Performed By: #### V ITB1, ZINC #### [facility] [address] [place] [address] #### B12, FOL, CMP, PREALB, ANDREZ, CBCD #### [facility] [address] [place] [address] Sodium [Moles/Vol] 139 mmol/L Normal 136-145 [facility] Comment on above: Performed By: #### V ITB1, ZINC #### [facility] [address] [place] [address] #### B12, FOL, CMP, PREALB, ANDREZ, CBCD #### [facility] [address] [place], [place] [address] Urea nitrogen [Mass/Vol] 14 mg/dL Normal 9-23 [facility] Comment on above: Performed By: #### V ITB1, ZINC #### [facility] [address] [place] [address] #### B12, FOL, CMP, PREALB, ANDREZ, CBCD #### [facility] [address] [place] [address] [id number] 10-04-2022 ESTIMATED AVERAGE GLUCOSE 100 Normal [facility] Comment on above: Performed By: #### V ITB1, ZINC #### [facility] [address] [place] [address] #### B12, FOL, CMP, PREALB, ANDREZ, CBCD #### [facility] [address] [place] [address] HbA1c (Bld) [Mass fraction] 5.1 % Normal 4.8-5.6 [facility] Comment on above: Result Comment: Standarization of method based on National Glycohemoglobin Standardization Program (NGSP). HEMOGLOBIN A1c(%) DEGREE of GLUCOSE CONTROL 5.7-6.4% Prediabetes range >6.4% Diagnosis of Diabetes <7% Glycemic control for adults with Diabetes Performed By: #### V ITB1, ZINC #### [facility] [address] [place] [address] #### B12, FOL, CMP, PREALB, ANDREZ, CBCD #### [facility] [address] [place], [place] [address] LIPID PANEL CHOLESTEROL/HDLo n 10-04-2022 Cholesterol [Mass/Vol] 122 mg/dL Normal <200 [facility] Comment on above: Performed By: #### V ITB1, ZINC #### [facility] [address] [place] [address] #### B12, FOL, CMP, PREALB, ANDREZ, CBCD #### [facility] [address] [place] [address] Cholesterol in HDL [Mass/Vol] 28 mg/dL Low 40-60 [facility] Comment on above: Performed By: #### V ITB1, ZINC #### [facility] [address] [place] [address] #### B12, FOL, CMP, PREALB, ANDREZ, CBCD #### [facility] [address] [place] [address] Cholesterol in LDL [Mass/Vol] 55 mg/dL Normal 9-159 [facility] Comment on above: Performed By: #### V ITB1, ZINC #### [facility] [address] [place] [address] #### B12, FOL, CMP, PREALB, ANDREZ, CBCD #### [facility] [address] [place] [address] Cholesterol.total/Chol esterol in HDL [Mass ratio] 4.4 {ratio} Normal [facility] Comment on above: Performed By: #### V ITB1, ZINC #### [facility] [address] [place] [address] #### B12, FOL, CMP, PREALB, ANDREZ, CBCD #### [facility] [address] [place] [address] Triglyceride [Mass/Vol] 196 mg/dL High <150 [facility] Comment on above: Result Comment: TRIGLYCERIDE RISK ASSESSMENT: 150-199 mg/dl BORDERLINE HIGH >200 mg//dl HIGH . Performed By: #### V ITB1, ZINC #### [facility] [address] [place] [address] #### B12, FOL, CMP, PREALB, ANDREZ, CBCD #### [facility] [address] [place] [address] VLDL CHOLESTEROL 39 mg/dL Normal 6-40 [facility] Comment on above: Performed By: #### V ITB1, ZINC #### [facility] [address] [place] [address] #### B12, FOL, CMP, PREALB, ANDREZ, CBCD #### [facility] [address] [place] [address] THROAT CULTUREon 08-15-2022 Throat culture THROAT CULTURE NORMAL ARIN Normal [facility] Comment on above: Performed By: #### V ITB1, ZINC #### [facility] [address] [place] [address] #### B12, FOL, CMP, PREALB, ANDREZ, CBCD #### [facility] [address] [place] [address] NOVL CORONAVIRUS NAAon 08-14 SARS-CoV-2 (COVID-19) RNA SUJATA+probe Ql (Unsp spec) Detected Abnormal Not Detected [facility] Comment on above: Result Comment: Evelyn ents who have a positive COVID-19 test result may now have treatment options. Treatment options are available for patients with mild to moderate symptoms and for hospitalized patients. Visit our website at [email or web address] for resources and information. This nucleic acid amplification test was developed and its performance characteristics determined by [facility]. Nucleic acid amplification tests include RT- PCR and TMA. This test has not been FDA cleared or approved. This test has been authorized by FDA under an Emergency Use Authorization (EUA). This test is only authorized for the duration of time the declaration that circumstances exist justifying the authorization of the emergency use of in vitro diagnostic tests for detection of SARS-CoV-2 virus and/or diagnosis of COVID-19 infection under section 564(b)(1) of the Act, 21 U.S.C. 360bbb-3(b) (1), unless the authorization is terminated or revoked sooner. When diagnostic testing is negative, the possibility of a false negative result should be considered in the context of a patient's recent exposures and the presence of clinical signs and symptoms consistent with COVID-19. An individual without symptoms of COVID-19 and who is not shedding SARS-CoV-2 virus would expect to have a negative (not detected) result in this assay. Performed By: #### V ITB1, ZINC #### [facility] [address] [place] [address] #### B12, FOL, CMP, PREALB, ANDREZ, CBCD #### [facility] [address] [place] [address] 78899 CBC with DIFFERENTIALon 08-01 Basophils (Bld) [#/Vol] 0.0 10*3/uL Normal 0.0-0.1 [facility] Comment on above: Performed By: #### V ITB1, ZINC #### [facility] [address] [place] [address] #### B12, FOL, CMP, PREALB, ANDREZ, CBCD #### [facility] [address] [place] [address] 19360 Basophils/100 WBC (Bld) 0.5 % Normal 0.0-1.0 [facility] Comment on above: Performed By: #### V ITB1, ZINC #### [facility] [address] [place] [address] #### B12, FOL, CMP, PREALB, ANDREZ, CBCD #### [facility] [address] [place] [address] 85321 Eosinophils (Bld) [#/Vol] 0.2 10*3/uL Normal 0.0-0.4 [facility] Comment on above: Performed By: #### V ITB1, ZINC #### [facility] [address] [place] [address] #### B12, FOL, CMP, PREALB, ANDREZ, CBCD #### [facility] [address] [place] [address] 71166 Eosinophils/100 WBC (Bld) 4.2 % High 1.0-4.0 [facility] Comment on above: Performed By: #### V ITB1, ZINC #### [facility] [address] [place] [address] #### B12, FOL, CMP, PREALB, ANDREZ, CBCD #### [facility] [address] [place] [address] 44358 Hematocrit (Bld) [Volume fraction] 43.8 % Normal 37.0-47.0 [facility] Comment on above: Performed By: #### V ITB1, ZINC #### [facility] [address] [place] [address] #### B12, FOL, CMP, PREALB, ANDREZ, CBCD #### [facility] [address] [place] [address] 05962 Hemoglobin (Bld) [Mass/Vol] 14.0 g/dL Normal 12.0-16.0 [facility] Comment on above: Performed By: #### V ITB1, ZINC #### [facility] [address] [place] [address] #### B12, FOL, CMP, PREALB, ANDREZ, CBCD #### [facility] [address] [place] [address] 72992 IG # 0.1 10*3/uL Normal 0.0-0.1 [facility] Comment on above: Performed By: #### V ITB1, ZINC #### [facility] [address] [place] [address] #### B12, FOL, CMP, PREALB, ANDREZ, CBCD #### [facility] [address] [place] [address] 18126 IG % 1.1 % High 0.0-1.0 [facility] Comment on above: Performed By: #### V ITB1, ZINC #### [facility] [address] [place] [address] #### B12, FOL, CMP, PREALB, ANDREZ, CBCD #### [facility] [address] [place] [address] Lymphocytes (Bld) [#/Vol] 2.9 10*3/uL Normal 1.3-4.4 [facility] Comment on above: Performed By: #### V ITB1, ZINC #### [facility] [address] [place] [address] #### B12, FOL, CMP, PREALB, ANDREZ, CBCD #### [facility] [address] [place] [address] 82039 Lymphocytes/100 WBC (Bld) 51.5 % High 27.0-41.0 [facility] Comment on above: Performed By: #### V ITB1, ZINC #### [facility] [address] [place] [address] #### B12, FOL, CMP, PREALB, ANDREZ, CBCD #### [facility] [address] [place] [address] 25708 MCV (RBC) [Entitic vol] 88.8 fL Normal 81.0-99.0 [facility] Comment on above: Performed By: #### V ITB1, ZINC #### [facility] [address] [place] [address] #### B12, FOL, CMP, PREALB, ANDREZ, CBCD #### [facility] [address] [place] [address] 28477 MEAN CORPUSCULAR HGB 28.4 pg Normal 27.0-31.0 [facility] Comment on above: Performed By: #### V ITB1, ZINC #### [facility] [address] [place] [address] #### B12, FOL, CMP, PREALB, ANDREZ, CBCD #### [facility] [address] [place] [address] 72713 MEAN CORPUSCULAR HGB CONC 32.0 g/dl Low 33.0-37.0 [facility] Comment on above: Performed By: #### V ITB1, ZINC #### [facility] [address] [place] [address] #### B12, FOL, CMP, PREALB, ANDREZ, CBCD #### [facility] [address] [place] [address] 40988 Monocytes (Bld) [#/Vol] 0.4 10*3/uL Normal 0.1-1.0 [facility] Comment on above: Performed By: #### V ITB1, ZINC #### [facility] [address] [place] [address] #### B12, FOL, CMP, PREALB, ANDREZ, CBCD #### [facility] [address] [place] [address] 84661 Monocytes/100 WBC (Bld) 7.0 % Normal 3.0-9.0 [facility] Comment on above: Performed By: #### V ITB1, ZINC #### [facility] [address] [place] [address] #### B12, FOL, CMP, PREALB, ANDREZ, CBCD #### [facility] [address] [place] [address] 75201 Neutrophils (Bld) [#/Vol] 2.0 10*3/uL Low 2.3-7.9 [facility] Comment on above: Performed By: #### V ITB1, ZINC #### [facility] [address] [place] [address] #### B12, FOL, CMP, PREALB, ANDREZ, CBCD #### [facility] [address] [place] [address] 86549 Neutrophils/100 WBC (Bld) 35.7 % Low 47.0-73.0 [facility] Comment on above: Performed By: #### V ITB1, ZINC #### [facility] [address] [place] [address] #### B12, FOL, CMP, PREALB, ANDREZ, CBCD #### [facility] [address] [place] [address] 73658 NUCLEATED RED BLOOD CELL 0.0 10*3/uL Normal 0.0-0.0 [facility] Comment on above: Performed By: #### V ITB1, ZINC #### [facility] [address] [place] [address] #### B12, FOL, CMP, PREALB, ANDREZ, CBCD #### [facility] [address] [place] [address] 83413 NUCLEATED RED BLOOD CELL 0.0 % Normal 0.0-0.0 [facility] Comment on above: Performed By: #### V ITB1, ZINC #### [facility] [address] [place] [address] #### B12, FOL, CMP, PREALB, ANDREZ, CBCD #### [facility] [address] [place] [address] 79255 PLATELET COUNT AUTOMATED 277 10*3/uL Normal 130-400 [facility] Comment on above: Performed By: #### V ITB1, ZINC #### [facility] [address] [place] [address] #### B12, FOL, CMP, PREALB, ANDREZ, CBCD #### [facility] [address] [place] [address] 70092 Platelet mean volume (Bld) [Entitic vol] 10.1 fL Normal 9.6-12.3 [facility] Comment on above: Performed By: #### V ITB1, ZINC #### [facility] [address] [place] [address] #### B12, FOL, CMP, PREALB, ANDREZ, CBCD #### [facility] [address] [place] [address] 52484 RBC (Bld) [#/Vol] 4.93 10*6/uL Normal 4.10-5.10 [facility] Comment on above: Performed By: #### V ITB1, ZINC #### [facility] [address] [place] [address] #### B12, FOL, CMP, PREALB, ANDREZ, CBCD #### [facility] [address] [place] [address] 31256 RED CELL DISTRI WIDTH 13.6 % Normal 0-14.5 [facility] Comment on above: Performed By: #### V ITB1, ZINC #### [facility] [address] [place] [address] #### B12, FOL, CMP, PREALB, ANDREZ, CBCD #### [facility] [address] [place] [address] WBC (Bld) [#/Vol] 5.7 10*3/uL Normal 4.8-10.8 [facility] Comment on above: Performed By: #### V ITB1, ZINC #### [facility] [address] [place] [address] #### B12, FOL, CMP, PREALB, ANDREZ, CBCD #### [facility] [address] [place] [address] CHEST (2 V)on 08-13-2022 CRCXR Name: ASHBURTBATOOL Phys: GILLIAN REHMANKAELA : 2000 Age: 22 Sex: F Acct: [id number] Loc: RAD Exam Date: 08/13/2022 Status: REG CLI Radiology No: [id number] Unit No: [id number] EXAM# TYPE/EXAM RESULT [id number] RAD/CHEST (2 V) SEE REPORT INDICATION: Stuffy nose, sore throat, lower back pain, fevers, hot flashes and nausea. TECHNIQUE: Frontal and lateral chest. COMPARISON: CXR 03/06/2022. CT chest 03/06/2022 FINDINGS: Lungs appear clear. No visible pneumothorax. Heart size within normal limits. No acute bony abnormality detected by this technique. No free air under the diaphragm. IMPRESSION: No radiographic evidence for pneumonia or pulmonary edema. Signed by Deric Perdomo D.O. REPORT SIGNED IN OTHER VENDOR SYSTEM 08/13/2022 Reported By: DERIC PERDOMO D.O. CC: Technologist: WIN CHRISTIE Transcribed Date/Time: 08/13/2022 (0740) Chain Splitter: OSCAR Printed Date/Time: 08/13/2022 (9995) PAGE 1 Signed Report Normal [facility] COMPREHENSIVE METABOLIC PANE Evan 08-13-2022 Albumin [Mass/Vol] 3.7 g/dL Normal 3.4-5.0 [facility] Comment on above: Performed By: #### V ITB1, ZINC #### [facility] [address] [place] [address] #### B12, FOL, CMP, PREALB, ANDREZ, CBCD #### [facility] [address] [place] [address] ALP [Catalytic activity/Vol] 56 U/L Normal 46-116 [facility] Comment on above: Performed By: #### V ITB1, ZINC #### [facility] [address] [place] [address] #### B12, FOL, CMP, PREALB, ANDREZ, CBCD #### [facility] [address] [place] [address] 35500 ALT [Catalytic activity/Vol] 21 U/L Normal 10-49 [facility] Comment on above: Performed By: #### V ITB1, ZINC #### [facility] [address] [place] [address] #### B12, FOL, CMP, PREALB, ANDREZ, CBCD #### [facility] [address] [place] [address] 58784 AST [Catalytic activity/Vol] 23 U/L Normal 0-34 [facility] Comment on above: Performed By: #### V ITB1, ZINC #### [facility] [address] [place] [address] #### B12, FOL, CMP, PREALB, ANDREZ, CBCD #### [facility] [address] [place] [address] Bilirubin [Mass/Vol] mg/dL Low 0.3-1.2 [facility] Comment on above: Performed By: #### V ITB1, ZINC #### [facility] [address] [place] [address] #### B12, FOL, CMP, PREALB, ANDREZ, CBCD #### [facility] [address] [place] [address] CALCIUM,TOTAL 9.2 md/dL Normal 8.7-10.[address] [facility] Comment on above: Performed By: #### V ITB1, ZINC #### [facility] [address] [place] [address] #### B12, FOL, CMP, PREALB, ANDREZ, CBCD #### [facility] [address] [place] [address] Chloride [Moles/Vol] 105 mmol/L Normal 98-107 [facility] Comment on above: Performed By: #### V ITB1, ZINC #### [facility] [address] [place] [address] #### B12, FOL, CMP, PREALB, ANDREZ, CBCD #### [facility] [address] [place] [address] CO2 [Moles/Vol] 25 mmol/L Normal 20-31 [facility] Comment on above: Performed By: #### V ITB1, ZINC #### [facility] [address] [place] [address] #### B12, FOL, CMP, PREALB, ANDREZ, CBCD #### [facility] [address] [place] [address] Creatinine [Mass/Vol] 0.53 mg/dL Low 0.55-1.02 [facility] Comment on above: Performed By: #### V ITB1, ZINC #### [facility] [address] [place] [address] #### B12, FOL, CMP, PREALB, ANDREZ, CBCD #### [facility] [address] [place] [address] EST GLOM FILT > 60 Normal [facility] Comment on above: Result Comment: Result Units: mL/min/1.73 m2 Note: Persistent reduction for 3 months or more of an eGFR of <60 ml/min/1.73 m2 defines Chronic Kidney Disease (CKD). Patients with eGFR values greater than or equal to 60 ml/min/1.73 m2 may also have CKD if evidence of persistent proteinuria is present. STAGES OF CKD eGFR Stage 1 Kidney damage with normal kidney function >=90 Stage 2 Kidney damage with mild loss of kidney function 89-60 Stage 3a Mild to moderate loss of kidney function 59-44 Stage 3b Moderate to severe loss of kidney function 43-30 Stage 4 Severe loss of kidney function 29-15 Stage 5 Kidney failure < 15 . Performed By: #### V ITB1, ZINC #### [facility] [address] [place] [address] #### B12, FOL, CMP, PREALB, ANDREZ, CBCD #### [facility] [address] [place] [address] 72111 ESTIMATED GLOM FILT RATE > 60 Normal [facility] Comment on above: Performed By: #### V ITB1, ZINC #### [facility] [address] [place] [address] #### B12, FOL, CMP, PREALB, ANDREZ, CBCD #### [facility] [address] [place] [address] 06962 Glucose [Mass/Vol] 81 mg/dL Normal 65-99 [facility] Comment on above: Performed By: #### V ITB1, ZINC #### [facility] [address] [place] [address] #### B12, FOL, CMP, PREALB, ANDREZ, CBCD #### [facility] [address] [place] [address] 09590 Potassium [Moles/Vol] 4.5 mmol/L Normal 3.4-5.1 [facility] Comment on above: Performed By: #### V ITB1, ZINC #### [facility] [address] [place] [address] #### B12, FOL, CMP, PREALB, ANDREZ, CBCD #### [facility] [address] [place] [address] 90729 Protein [Mass/Vol] 7.0 g/dL Normal 6.0-8.0 [facility] Comment on above: Performed By: #### V ITB1, ZINC #### [facility] [address] [place] [address] #### B12, FOL, CMP, PREALB, ANDREZ, CBCD #### [facility] [address] [place] [address] Sodium [Moles/Vol] 138 mmol/L Normal 136-145 [facility] Comment on above: Performed By: #### V ITB1, ZINC #### [facility] [address] [place] [address] #### B12, FOL, CMP, PREALB, ANDREZ, CBCD #### [facility] [address] [place] [address] Urea nitrogen [Mass/Vol] 7 mg/dL Low 9- [facility] Comment on above: Performed By: #### V ITB1, ZINC #### [facility] [address] #### B12, FOL, CMP, PREALB, ANDREZ, CBCD #### [facility] [address] [place], [place] [address] ESR (Sed Rate)on 08-13-2022 ESR (Bld) [Velocity] 20 mm/h Normal 0-20 [facility] Comment on above: Performed By: #### V ITB1, ZINC #### [facility] [address] #### B12, FOL, CMP, PREALB, ANDREZ, CBCD #### [facility] [address] [place] [address] 88060 CBC with DIFFERENTIALon -3 Basophils (Bld) [#/Vol] 0.1 10*3/uL Normal 0.0-0.1 [facility] Comment on above: Performed By: #### C MP, TSH, LIPPAN, HBA1C, CBCD, INS #### [facility] [address] [place] [address] 86588 Basophils/100 WBC (Bld) 0.7 % Normal 0.0-1.0 [facility] Comment on above: Performed By: #### C MP, TSH, LIPPAN, HBA1C, CBCD, INS #### [facility] [address] [place] [address] Eosinophils (Bld) [#/Vol] 0.3 10*3/uL Normal 0.0-0.4 [facility] Comment on above: Performed By: #### C MP, TSH, LIPPAN, HBA1C, CBCD, INS #### [facility] [address] [place] [address] 38033 Eosinophils/100 WBC (Bld) 4.3 % High 1.0-4.0 [facility] Comment on above: Performed By: #### C MP, TSH, LIPPAN, HBA1C, CBCD, INS #### [facility] [address] [place] [address] 65627 Hematocrit (Bld) [Volume fraction] 43.7 % Normal 37.0-47.0 [facility] Comment on above: Performed By: #### C MP, TSH, LIPPAN, HBA1C, CBCD, INS #### [facility] [address] [place] [address] 43438 Hemoglobin (Bld) [Mass/Vol] 13.9 g/dL Normal 12.0-16.0 [facility] Comment on above: Performed By: #### C MP, TSH, LIPPAN, HBA1C, CBCD, INS #### [facility] [address] [place] [address] 07716 IG # 0.0 10*3/uL Normal 0.0-0.1 [facility] Comment on above: Performed By: #### C MP, TSH, LIPPAN, HBA1C, CBCD, INS #### [facility] [address] [place] [address] 37790 IG % 0.4 % Normal 0.0-1.0 [facility] Comment on above: Performed By: #### C MP, TSH, LIPPAN, HBA1C, CBCD, INS #### [facility] [address] [place] [address] Lymphocytes (Bld) [#/Vol] 3.2 10*3/uL Normal 1.3-4.4 [facility] Comment on above: Performed By: #### C MP, TSH, LIPPAN, HBA1C, CBCD, INS #### [facility] [address] [place] [address] Lymphocytes/100 WBC (Bld) 42.7 % High 27.0-41.0 [facility] Comment on above: Performed By: #### C MP, TSH, LIPPAN, HBA1C, CBCD, INS #### [facility] [address] [place] [address] 18898 MCV (RBC) [Entitic vol] 90.3 fL Normal 81.0-99.0 [facility] Comment on above: Performed By: #### C MP, TSH, LIPPAN, HBA1C, CBCD, INS #### [facility] [address] [place] [address] MEAN CORPUSCULAR HGB 28.7 pg Normal 27.0-31.0 [facility] Comment on above: Performed By: #### C MP, TSH, LIPPAN, HBA1C, CBCD, INS #### [facility] [address] [place] [address] 93608 MEAN CORPUSCULAR HGB CONC 31.8 g/dl Low 33.0-37.0 [facility] Comment on above: Performed By: #### C MP, TSH, LIPPAN, HBA1C, CBCD, INS #### [facility] [address] [place] [address] Monocytes (Bld) [#/Vol] 0.4 10*3/uL Normal 0.1-1.0 [facility] Comment on above: Performed By: #### C MP, TSH, LIPPAN, HBA1C, CBCD, INS #### [facility] [address] [place] [address] 92720 Monocytes/100 WBC (Bld) 5.4 % Normal 3.0-9.0 [facility] Comment on above: Performed By: #### C MP, TSH, LIPPAN, HBA1C, CBCD, INS #### [facility] [address] [place] [address] 58651 Neutrophils (Bld) [#/Vol] 3.4 10*3/uL Normal 2.3-7.9 [facility] Comment on above: Performed By: #### C MP, TSH, LIPPAN, HBA1C, CBCD, INS #### [facility] [address] [place] [address] 59551 Neutrophils/100 WBC (Bld) 46.5 % Low 47.0-73.0 [facility] Comment on above: Performed By: #### C MP, TSH, LIPPAN, HBA1C, CBCD, INS #### [facility] [address] [place] [address] 67584 NUCLEATED RED BLOOD CELL 0.0 10*3/uL Normal 0.0-0.0 [facility] Comment on above: Performed By: #### C MP, TSH, LIPPAN, HBA1C, CBCD, INS #### [facility] [address] [place] [address] 10971 NUCLEATED RED BLOOD CELL 0.0 % Normal 0.0-0.0 [facility] Comment on above: Performed By: #### C MP, TSH, LIPPAN, HBA1C, CBCD, INS #### [facility] [address] [place] [address] 36281 PLATELET COUNT AUTOMATED 309 10*3/uL Normal 130-400 [facility] Comment on above: Performed By: #### C MP, TSH, LIPPAN, HBA1C, CBCD, INS #### [facility] [address] [place] [address] 37376 Platelet mean volume (Bld) [Entitic vol] 10.3 fL Normal 9.6-12.3 [facility] Comment on above: Performed By: #### C MP, TSH, LIPPAN, HBA1C, CBCD, INS #### [facility] [address] [place] [address] RBC (Bld) [#/Vol] 4.84 10*6/uL Normal 4.10-5.10 [facility] Comment on above: Performed By: #### C MP, TSH, LIPPAN, HBA1C, CBCD, INS #### [facility] [address] [place] [address] 30319 RED CELL DISTRI WIDTH 13.5 % Normal 0-14.5 [facility] Comment on above: Performed By: #### C MP, TSH, LIPPAN, HBA1C, CBCD, INS #### [facility] [address] [place] [address] 75620 WBC (Bld) [#/Vol] 7.4 10*3/uL Normal 4.8-10.8 [facility] Comment on above: Performed By: #### C MP, TSH, LIPPAN, HBA1C, CBCD, INS #### [facility] [address] [place] [address] COMPREHENSIVE METABOLIC PANE [facility] 07-31-2022 Albumin [Mass/Vol] 3.9 g/dL Normal 3.4-5.0 [facility] Comment on above: Performed By: #### V ITB1, ZINC #### [facility] [address] [place] [address] #### B12, FOL, CMP, PREALB, ANDREZ, CBCD #### [facility] [address] [place] [address] 11461 ALP [Catalytic activity/Vol] 60 U/L Normal 46-116 [facility] Comment on above: Performed By: #### V ITB1, ZINC #### [facility] [address] [place] [address] #### B12, FOL, CMP, PREALB, ANDREZ, CBCD #### [facility] [address] [place] [address] 32443 ALT [Catalytic activity/Vol] 23 U/L Normal 10-49 [facility] Comment on above: Performed By: #### V ITB1, ZINC #### [facility] [address] [place] [address] #### B12, FOL, CMP, PREALB, ANDREZ, CBCD #### [facility] [address] [place] [address] AST [Catalytic activity/Vol] 17 U/L Normal 0-34 [facility] Comment on above: Performed By: #### V ITB1, ZINC #### [facility] [address] [place] [address] #### B12, FOL, CMP, PREALB, ANDREZ, CBCD #### [facility] [address] [place] [address] 39664 Bilirubin [Mass/Vol] 0.3 mg/dL Normal 0.3-1.2 [facility] Comment on above: Performed By: #### V ITB1, ZINC #### [facility] [address] [place] [address] #### B12, FOL, CMP, PREALB, ANDREZ, CBCD #### [facility] [address] [place] [address] 13432 CALCIUM,TOTAL 9.6 md/dL Normal 8.7-10.[address] [facility] Comment on above: Performed By: #### V ITB1, ZINC #### [facility] [address] [place] [address] #### B12, FOL, CMP, PREALB, ANDREZ, CBCD #### [facility] [address] [place] [address] 37830 Chloride [Moles/Vol] 102 mmol/L Normal 98-107 [facility] Comment on above: Performed By: #### V ITB1, ZINC #### [facility] [address] [place] [address] #### B12, FOL, CMP, PREALB, ANDREZ, CBCD #### [facility] [address] [place] [address] 00171 CO2 [Moles/Vol] 27 mmol/L Normal 20-31 [facility] Comment on above: Performed By: #### V ITB1, ZINC #### [facility] [address] [place] [address] #### B12, FOL, CMP, PREALB, ANDREZ, CBCD #### [facility] [address] [place] [address] Creatinine [Mass/Vol] 0.58 mg/dL Normal 0.55-1.02 [facility] Comment on above: Performed By: #### V ITB1, ZINC #### [facility] [address] [place] [address] #### B12, FOL, CMP, PREALB, ANDREZ, CBCD #### [facility] [address] [place] [address] 76182 EST GLOM FILT > 60 Normal [facility] Comment on above: Result Comment: Result Units: mL/min/1.73 m2 Note: Persistent reduction for 3 months or more of an eGFR of <60 ml/min/1.73 m2 defines Chronic Kidney Disease (CKD). Patients with eGFR values greater than or equal to 60 ml/min/1.73 m2 may also have CKD if evidence of persistent proteinuria is present. STAGES OF CKD eGFR Stage 1 Kidney damage with normal kidney function >=90 Stage 2 Kidney damage with mild loss of kidney function 89-60 Stage 3a Mild to moderate loss of kidney function 59-44 Stage 3b Moderate to severe loss of kidney function 43-30 Stage 4 Severe loss of kidney function 29-15 Stage 5 Kidney failure < 15 . Performed By: #### V ITB1, ZINC #### [facility] [address] [place] [address] #### B12, FOL, CMP, PREALB, ANDREZ, CBCD #### [facility] [address] [place] [address] 80639 ESTIMATED GLOM FILT RATE > 60 Normal [facility] Comment on above: Performed By: #### V ITB1, ZINC #### [facility] [address] [place] [address] #### B12, FOL, CMP, PREALB, ANDREZ, CBCD #### [facility] [address] [place] [address] Glucose [Mass/Vol] 73 mg/dL Normal 65-99 [facility] Comment on above: Performed By: #### V ITB1, ZINC #### [facility] [address] [place] [address] #### B12, FOL, CMP, PREALB, ANDREZ, CBCD #### [facility] [address] [place] [address] 50012 Potassium [Moles/Vol] 4.2 mmol/L Normal 3.4-5.1 [facility] Comment on above: Performed By: #### V ITB1, ZINC #### [facility] [address] [place] [address] #### B12, FOL, CMP, PREALB, ANDREZ, CBCD #### [facility] [address] [place] [address] 17657 Protein [Mass/Vol] 7.2 g/dL Normal 6.0-8.0 [facility] Comment on above: Performed By: #### V ITB1, ZINC #### [facility] [address] [place] [address] #### B12, FOL, CMP, PREALB, ANDREZ, CBCD #### [facility] [address] [place] [address] 70880 Sodium [Moles/Vol] 137 mmol/L Normal 136-145 [facility] Comment on above: Performed By: #### V ITB1, ZINC #### [facility] [address] [place] [address] #### B12, FOL, CMP, PREALB, ANDREZ, CBCD #### [facility] [address] [place] [address] 27066 Urea nitrogen [Mass/Vol] 11 mg/dL Normal 9-23 [facility] Comment on above: Performed By: #### V ITB1, ZINC #### [facility] [address] [place] [address] #### B12, FOL, CMP, PREALB, ANDREZ, CBCD #### [facility] [address] [place] [address] [id number] 07-31-2022 ESTIMATED AVERAGE GLUCOSE 100 Normal [facility] Comment on above: Performed By: #### V ITB1, ZINC #### [facility] [address] [place] [address] #### B12, FOL, CMP, PREALB, ANDREZ, CBCD #### [facility] [address] [place] [address] HbA1c (Bld) [Mass fraction] 5.1 % Normal 4.8-5.6 [facility] Comment on above: Result Comment: Standarization of method based on National Glycohemoglobin Standardization Program (NGSP). HEMOGLOBIN A1c(%) DEGREE of GLUCOSE CONTROL 5.7-6.4% Prediabetes range >6.4% Diagnosis of Diabetes <7% Glycemic control for adults with Diabetes Performed By: #### V ITB1, ZINC #### [facility] [address] [place] [address] #### B12, FOL, CMP, PREALB, ANDREZ, CBCD #### [facility] [address] [place] [address] INSULINon 07-31-2022 INSULIN 45.6 mU/L High 2.6-37.6 [facility] Comment on above: Performed By: #### V ITB1, ZINC #### [facility] [address] [place] [address] #### B12, FOL, CMP, PREALB, ANDREZ, CBCD #### [facility] [address] [place] [address] LIPID PANEL CHOLESTEROL/HDLo n 07-31-2022 Cholesterol [Mass/Vol] 170 mg/dL Normal <200 [facility] Comment on above: Performed By: #### V ITB1, ZINC #### [facility] [address] [place] [address] #### B12, FOL, CMP, PREALB, ANDREZ, CBCD #### [facility] [address] [place] [address] Cholesterol in HDL [Mass/Vol] 31 mg/dL Low 40-60 [facility] Comment on above: Performed By: #### V ITB1, ZINC #### [facility] [address] [place] [address] #### B12, FOL, CMP, PREALB, ANDREZ, CBCD #### [facility] [address] [place] [address] Cholesterol in LDL [Mass/Vol] 73 mg/dL Normal 9-159 [facility] Comment on above: Performed By: #### V ITB1, ZINC #### [facility] [address] [place] [address] #### B12, FOL, CMP, PREALB, ANDREZ, CBCD #### [facility] [address] [place] [address] Cholesterol.total/Chol esterol in HDL [Mass ratio] 5.5 {ratio} Normal [facility] Comment on above: Performed By: #### V ITB1, ZINC #### [facility] [address] [place] [address] #### B12, FOL, CMP, PREALB, ANDREZ, CBCD #### [facility] [address] [place] [address] Triglyceride [Mass/Vol] 328 mg/dL High <150 [facility] Comment on above: Result Comment: TRIGLYCERIDE RISK ASSESSMENT: 150-199 mg/dl BORDERLINE HIGH >200 mg//dl HIGH . Performed By: #### V ITB1, ZINC #### [facility] [address] [place] [address] #### B12, FOL, CMP, PREALB, ANDREZ, CBCD #### [facility] [address] [place] [address] VLDL CHOLESTEROL 66 mg/dL High 6-40 [facility] Comment on above: Performed By: #### V ITB1, ZINC #### [facility] [address] [place] [address] #### B12, FOL, CMP, PREALB, ANDREZ, CBCD #### [facility] [address] [place] [address] THYROID STIM HORMONE (HS)on 07-31-2022 THYROID STIM HORMONE (HS) 2.569 uIU/ml Normal 0.550-4.780 [facility] Comment on above: Performed By: #### V ITB1, ZINC #### [facility] [address] [place] [address] #### B12, FOL, CMP, PREALB, ANDREZ, CBCD #### [facility] [address] [place] [address] NICOTINE METABOLITE, QUANTon 07-19-2022 COTININE <1.0 Normal . [facility] Comment on above: Order Comment: FAX T O [phone] Result Comment: This test was developed and its performance characteristics determined by [facility]. It has not been cleared or approved by the Food and Drug Administration. Cotinine levels greater than 20.0 are consistent with the use of tobacco or tobacco cessation products. Performed at: [address] [id number] Debt Recovery Officer: Estuardo Michelle MD, Phone: [phone] Performed By: #### N ICOTINE #### [facility] [address] [place] [address] NICOTINE <1.0 Normal . [facility] Comment on above: Order Comment: FAX T O [phone] Result Comment: This test was developed and its performance characteristics determined by [facility]. It has not been cleared or approved by the Food and Drug Administration. Nicotine levels greater than 2.0 are consistent with the use of tobacco or tobacco cessation products. Performed By: #### N ICOTINE #### [facility] [address] [place] [address] HIPS BILATERAL (2V)on 2021 [facility] Name[facility] BATOOL KINGSLEY Phys: RUSSELL MURRIETA,LASHAWN : 2000 Age: 22 Sex: F Acct: [id number] Loc: RAD Exam Date: 06/14/2022 Status: REG CLI Radiology No: [id number] Unit No: [id number] EXAM# TYPE/EXAM RESULT [id number] RAD/HIPS BILATERAL (2V) SEE REPORT INDICATION: Sharp left hip pain x one week. No known injury. TECHNIQUE: Two view(s) of the left hip, and two view(s) of the right hip. COMPARISON: None Available. FINDINGS: Left hip: There is no displaced fracture. The alignment is anatomic. No soft tissue abnormality is seen. Right hip: There is no displaced fracture. The alignment is anatomic. No soft tissue abnormality is seen. IMPRESSION: No acute osseous abnormality of the right and left hip. . Signed by Shanta Sawyer MD REPORT SIGNED IN OTHER VENDOR SYSTEM 06/14/2022 Reported By: Shanta Sawyer MD CC: LASHAWN WELLS NP Technologist: Eugene Wagner Transcribed Date/Time: 06/14/2022 (8059) Chain Splitter: OSCAR Printed Date/Time: 06/14/2022 (5606) PAGE 1 Signed Report Normal [facility] Vitamin B1 (Thiamine), Whole Bloodon 05-09-2022 Vitamin B1, Whole Blood 116 nmol/L Normal 70-180 [facility] Comment on above: Result Comment: INTE RPRETIVE INFORMATION: Vitamin B1, Whole Blood This assay measures the concentration of thiamine diphosphate (TDP), the primary active form of vitamin B1. Approximately 90 percent of vitamin B1 present in whole blood is TDP. Thiamine and thiamine monophosphate, which comprise the remaining 10 percent, are not measured. This test was developed and its performance characteristics determined by [facility]. It has not been cleared or approved by the [place] Food and Drug Administration. This test was performed in a CLIA certified laboratory and is intended for clinical purposes. Performed By: [facility] [address] [place] [address] Provider Relations Specialist: Francisco Javier Zhang MD, PhD Performed By: #### 8 0388 ####[facility] Reference [address] [place] [id number] Zinc, Serumon 05-07-2022 Zinc, Serum 75.6 ug/dL Normal 60.0-120.0 [facility] Comment on above: Result Comment: INTE RPRETIVE INFORMATION: Zinc, Serum or Plasma Elevated results may be due to skin or collection-related contamination, including the use of a noncertified metal-free collection/transport tube. If contamination concerns exist due to elevated levels of serum/plasma zinc, confirmation with a second specimen collected in a certified metal-free tube is recommended. Circulating zinc concentrations are dependent on albumin status and are depressed with malnutrition. Zinc may also be lowered with infection, inflammation, stress, oral contraceptives, and . Zinc may be elevated with zinc supplementation or fasting. Elevated zinc concentrations may interfere with copper absorption. This test was developed and its performance characteristics determined by [facility]. It has not been cleared or approved by the [place] Food and Drug Administration. This test was performed in a CLIA certified laboratory and is intended for clinical purposes. Performed By: [facility] [address] [place] [address] Provider Relations Specialist: Francisco Javier Zhang MD, PhD Performed By: #### 2 0097 #### [facility] Reference Lab [address] [id number] Blood glucose - POCTon 05-04 Glucose [Mass/Vol] 96 mg/dL [facility] [employer] Work Phone: QC OK? [facility] Work Phone: CBCon 05-04-2022 Hematocrit (Bld) [Volume fraction] 40.4 % 34.0 - 48.0 % [facility] Hemoglobin (Bld) [Mass/Vol] 13.2 g/dL 11.5 - 15.5 g/dL [facility] MCH (RBC) [Entitic mass] 29.9 pg 26.0 - 35.0 pg [facility] MCHC (RBC) [Mass/Vol] 32.7 % 32.0 - 34.5 % [facility] MCV (RBC) [Entitic vol] 91.6 fL 80.0 - 99.9 fL [facility] Platelet distribution width (Bld) [Ratio] 13.0 fL 11.5 - 15.0 fL [facility] Platelet mean volume (Bld) [Entitic vol] 9.8 fL 7.0 - 12.0 fL [facility] Platelets (Bld) [#/Vol] 313 10*3/uL [facility] RBC (Bld) [#/Vol] 4.41 10*6/uL [facility] WBC (Bld) [#/Vol] 9.2 10*3/uL [facility] CBC With Platelet No Differe ntialon 05-04-2022 Hematocrit (Bld) [Volume fraction] 40.4 % Normal 34.0-48.0 [facility] Hemoglobin (Bld) [Mass/Vol] 13.2 g/dL Normal 11.5-15.5 [facility] MCH (RBC) [Entitic mass] 29.9 pg Normal 26.0-35.0 [facility] MCHC 32.7 % Normal 32.0-34.5 [facility] MCV (RBC) [Entitic vol] 91.6 fL Normal 80.0-99.9 [facility] Platelet Count 313 E9/L Normal 130-450 [facility] Platelet mean volume (Bld) [Entitic vol] 9.8 fL Normal 7.0-12.0 [facility] RBC 4.41 E12/L Normal 3.50-5.50 [facility] RDW 13.0 fL Normal 11.5-15.0 [facility] WBC 9.2 E9/L Normal 4.5-11.5 [facility] Cholesterolon 05-04-2022 Cholesterol [Mass/Vol] 162 mg/dL Normal 0-199 [facility] Cholesterol, Totalon 022 Cholesterol [Mass/Vol] 162 mg/dL 0 - 1 99 mg/dL [facility] Comprehensive Metabolic Pane evan 05-04-2022 Albumin [Mass/Vol] 4.1 g/dL Normal 3.5-5.2 [facility] ALP [Catalytic activity/Vol] 64 U/L Normal 35-104 [facility] ALT [Catalytic activity/Vol] 22 U/L Normal 0-32 [facility] Anion gap [Moles/Vol] 10 mmol/L Normal 7-16 [facility] AST [Catalytic activity/Vol] 13 U/L Normal 0-31 [facility] Bilirubin [Mass/Vol] 0.2 mg/dL Normal 0.0-1.2 [facility] Calcium [Mass/Vol] 8.9 mg/dL Normal 8.6-10.2 [facility] Chloride [Moles/Vol] 102 mmol/L Normal 98-107 [facility] CO2 [Moles/Vol] 25 mmol/L Normal 22-29 [facility] Creatinine [Mass/Vol] 0.7 mg/dL Normal 0.5-1.0 [facility] GFR Calculated >60 Normal >=60 [facility] Comment on above: Result Comment: Dion atric calculator link https://www.kidney.org/professionals/kdoqi/gfr_calculatorped Effective Apr 02, 2022 These results are not intended for use in patients <18 years of age. eGFR results are calculated without a race factor using the 2020 CKD-EPI equation. Careful clinical correlation is recommended, particularly when comparing to results calculated using previous equations. The CKD-EPI equation is less accurate in patients with extremes of muscle mass, extra-renal metabolism of creatinine, excessive creatinine ingestion, or following therapy that affects renal tubular secretion. Glucose [Mass/Vol] 96 mg/dL Normal 74-99 [facility] Potassium [Moles/Vol] 4.5 mmol/L Normal 3.5-5.0 [facility] Protein [Mass/Vol] 6.9 g/dL Normal 6.4-8.3 [facility] Sodium [Moles/Vol] 137 mmol/L Normal 132-146 [facility] Urea nitrogen [Mass/Vol] 17 mg/dL Normal 6-20 [facility] Albumin [Mass/Vol] 4.1 g/dL 3.5 - 5.2 g/dL [facility] ALP (Bld) [Catalytic activity/Vol] 64 U/L 35 - 104 U/L [facility] ALT [Catalytic activity/Vol] 22 U/L 0 - 32 U/L [facility] Anion gap [Moles/Vol] 10 mmol/L 7 - 16 mmol/L [facility] AST [Catalytic activity/Vol] 13 U/L 0 - 31 U/L [facility] Bilirubin [Mass/Vol] 0.2 mg/dL 0.0 - 1 .2 mg/dL [facility] Calcium [Mass/Vol] 8.9 mg/dL 8.6 - 10. 2 mg/dL [facility] Chloride [Moles/Vol] 102 mmol/L 98 - 10 7 mmol/L [facility] CO2 [Moles/Vol] 25 mmol/L 22 - 29 mmol/L [facility] Creatinine [Mass/Vol] 0.7 mg/dL 0.5 - 1.0 mg/dL [facility] GFR/1.73 sq M.predicted MDRD (S/P/Bld) [Vol rate/Area] mL/min/1.73 60 - PINF mL/min/1.73 [facility] Comment on above: Pediatric calculator link https://www.kidney.org/professionals/kdoqi/gfr_calculatorped Effective Apr 02, 2022 These results are not intended for use in patients <18 years of age. eGFR results are calculated without a race factor using the 2020 CKD-EPI equation. Careful clinical correlation is recommended, particularly when comparing to results calculated using previous equations. The CKD-EPI equation is less accurate in patients with extremes of muscle mass, extra-renal metabolism of creatinine, excessive creatinine ingestion, or following therapy that affects renal tubular secretion. Glucose [Mass/Vol] 96 mg/dL 74 - 99 mg/dL [facility] Potassium [Moles/Vol] 4.5 mmol/L 3.5 - 5.0 mmol/L [facility] Protein [Mass/Vol] 6.9 g/dL 6.4 - 8.3 g/dL [facility] Sodium [Moles/Vol] 137 mmol/L 132 - 146 mmol/L [facility] Urea nitrogen (BldV) [Mass/Vol] 17 mg/dL 6 - 20 mg/dL [facility] Ferritinon 05-04-2022 Ferritin [Mass/Vol] 69 ng/mL Normal [facility] Comment on above: Result Comment: FERR ITIN Reference Ranges: Adult Males 20 - 60 years: 30 - 400 ng/mL Adult females 17 - 60 years: 13 - 150 ng/mL Adults greater than 60 years: no established reference range Pediatrics: no established reference range Folateon 05-04-2022 Folate 8.5 ng/mL Normal 4.8-24.2 [facility] Hgb A1Con 05-04-2022 HbA1c (Bld) [Mass fraction] 5.7 % High 4.0-5.6 [facility] METER GLUCOSEon 05-04-2022 Glucose [Mass/Vol] 93 mg/dL Normal 74-99 [facility] Glucose [Mass/Vol] 96 mg/dL Normal 74-99 [facility] No Panel Informationon 05-04 [employer] Work Phone: POC Urine Qualon 1 07-04-2021 Beta HCG ( test) Ql (U) Negative Negative [employer] Work Phone: Lot Number [id number] [employer] Phone: Negative QC Pass/Fail Pass [employer] Phone: Positive QC Pass/Fail Pass [employer] Phone: [employer] Phone: POCT Glucoseon 05-04-2022 Glucose [Mass/Vol] 93 mg/dL 74 - 99 mg/dL [employer] Glucose [Mass/Vol] 96 mg/dL 74 - 99 mg/dL [employer] Prealbuminon 05-04-2022 Prealbumin [Mass/Vol] 24 mg/dL Normal 20-40 [facility] Surgical Specimenon 05-04-20 22 Surgical Specimen [address] [address] FINAL SURGICAL PATHOLOGY REPORT NAME: BATOOL KINGSLEY Date of 05/04/2022 Collection: Medical Record [id number] Date of 05/04/2022 Number: Receipt: Age: 22 Y Sex: F Date 05/11/2022 08:29 Reported: Date Of : 2000 Financial [id number] Admitting DERIC MONI Number: Physician: Patient DIS ENDOPLNON Ordering DERIC FLORENCE Location: Physician: Accession Number: [id number] Additional Physicians:KAELA ARELLANO Diagnosis: Stomach, antrum, biopsy: Mild chronic gastritis Negative for intestinal metaplasia Comment: Histologic features of Helicobacter pylori gastritis are not identified. RUTHANN CRANE M.D. (Electronic Signature) Specimen Submitted: GASTRIC ANTRUM BIOPSY Clinical Notes: Procedure: EGD biopsy Preoperative Dx: Gastroesophageal reflux disease Microscopic Evaluation: Was performed. Gross Description: Submitted in one part in formalin labeled Batool Kingsley, biopsy antrum is a haq soft fragment of tissue that measures 0.2 x 0.2 x 0.2 cm. Entirely submitted. Block label: A1. (JORGE L:YAYA) CODES: [id number]; Department of Pathology Page 1 of 1 Normal [facility] Triglycerideon 05-04-2022 Interpretation and review of laboratory results Abnormal [facility] Triglyceride [Mass/Vol] 274 mg/dL High 0 - 149 mg/dL [facility] Triglycerideson 05-04-2022 Triglyceride [Mass/Vol] 274 mg/dL High 0-149 [facility] Vitamin B12on 05-04-2022 Cobalamin (Vitamin B12) [Mass/Vol] 226 pg/mL Normal 211-946 [facility] US GALLBLADDER RUQon 022 US GALLBLADDER RUQ EXAMINATION: RIGHT UPPER QUADRANT ULTRASOUND 05/02/2022 8:59 am COMPARISON: None. HISTORY: ORDERING SYSTEM PROVIDED HISTORY: Indigestion TECHNOLOGIST PROVIDED HISTORY: Reason for exam:->Indigestion What reading provider will be dictating this exam?->CRC FINDINGS: LIVER: The liver is mildly enlarged with diffusely increased echogenicity without evidence of intrahepatic biliary ductal dilatation. BILIARY SYSTEM: Gallbladder is unremarkable without evidence of pericholecystic fluid, wall thickening or stones. Negative sonographic Sun's sign. Common bile duct is within normal limits measuring 4.0 mm. RIGHT KIDNEY: The right kidney is grossly unremarkable without evidence of hydronephrosis. PANCREAS: Visualized portions of the pancreas are unremarkable. OTHER: No evidence of right upper quadrant ascites. IMPRESSION: Mildly enlarged fatty liver. No sonographic evidence of cholecystitis. RECOMMENDATIONS: Unavailable Interpreted by: Rohit Dowling MD Signed by: Rohit Dowling MD 05/02/22 Final result Normal [facility] Comment on above: Order Comment: Reaso n for exam:->Indigestion What reading provider will be dictating this exam?->CRC CBC Auto DifferentialOrdered By: Win Narvaez on 03-27-2021 Basophils (Bld) [#/Vol] 0.05 10*3/uL [employer] Phone: Basophils/100 WBC (Bld) 0.5 % 0.0 - 2.0 % [employer] Phone: Eosinophils Absolute 0.37 [employer] Phone: Eosinophils/100 WBC (Bld) 3.8 % 0.0 - 6.0 % [employer] Phone: Hematocrit (Bld) [Volume fraction] 39.5 % 34.0 - 48.0 % [employer] Phone: Hemoglobin.gastrointes tinal spec 1 Ql (Stl) 12.6 g/dL 11.5 - 15.5 g/dL [employer] Phone: Immature Granulocytes # 0.18 E9/L [employer] Phone: Immature granulocytes/100 WBC (Bld) 1.8 % 0.0 - 5.0 % [employer] Phone: Interpretation and review of laboratory results Abnormal [employer] Phone: Lymphocytes Absolute 3.73 [employer] Phone: Lymphocytes/100 WBC (Bld) 38.2 % 20.0 - 42.0 % [employer] Phone: MCH (RBC) [Entitic mass] 28.9 pg 26.0 - 35.0 pg [employer] Phone: MCHC (RBC) [Mass/Vol] 31.9 % Low 32.0 - 34.5 % [employer] Phone: MCV (RBC) [Entitic vol] 90.6 fL 80.0 - 99.9 fL [employer] Phone: Monocytes Absolute 0.46 [employer] Phone: Monocytes/100 WBC (Bld) 4.7 % 2.0 - 12.0 % [employer] Phone: Neutrophils Absolute 4.97 [employer] Phone: Neutrophils/100 WBC (Bld) 51.0 % 43.0 - 80.0 % [employer] Phone: Platelet distribution width (Bld) [Ratio] 13.3 fL 11.5 - 15.0 fL [employer] Phone: Platelet mean volume (Bld) [Entitic vol] 9.7 fL 7.0 - 12.0 fL [employer] Phone: Platelets (Bld) [#/Vol] 281 10*3/uL [employer] Phone: RBC (Bld) [#/Vol] 4.36 10*6/uL [employer] Phone: WBC (Bld) [#/Vol] 9.8 10*3/uL [employer] Phone: Comprehensive Metabolic Pane l w/ Reflex to MGOrdered By: Win Narvaez on 03-27-2021 Albumin [Mass/Vol] 4.2 g/dL 3.5 - 5.2 g/dL [employer] Phone: ALP (Bld) [Catalytic activity/Vol] 64 U/L 35 - 104 U/L [employer] Phone: ALT [Catalytic activity/Vol] 19 U/L 0 - 32 U/L [employer] Phone: Anion gap [Moles/Vol] 12 mmol/L 7 - 16 mmol/L [employer] Phone: AST [Catalytic activity/Vol] 14 U/L 0 - 31 U/L [employer] Phone: Bilirubin [Mass/Vol] mg/dL 0.0 - 1 .2 mg/dL [employer] Phone: Calcium [Mass/Vol] 9.1 mg/dL 8.6 - 10. 2 mg/dL [employer] Phone: Chloride [Moles/Vol] 103 mmol/L 98 - 10 7 mmol/L [employer] Phone: CO2 [Moles/Vol] 22 mmol/L 22 - 29 mmol/L [employer] Phone: Creatinine [Mass/Vol] 0.5 mg/dL 0.5 - 1.0 mg/dL [employer] Phone: Free PSA/Total PSA [Mass fraction] 7.1 g/dL 6.4 - 8.3 g/dL [employer] Phone: GFR >60 [employer] Phone: GFR Non- >60 >=60 mL/min/1.73 [employer] Phone: Comment on above: Chronic Kidney Disea se: less than 60 ml/min/1.73 sq.m. Kidney Failure: less than 15 ml/min/1.73 sq.m. Results valid for patients 18 years and older. Glucose [Mass/Vol] 107 mg/dL High 74 - 99 mg/dL [employer] Phone: Interpretation and review of laboratory results Abnormal [employer] Phone: Potassium [Moles/Vol] 4.2 mmol/L 3.5 - 5.0 mmol/L [employer] Phone: Sodium [Moles/Vol] 137 mmol/L 132 - 146 mmol/L [employer] Phone: Urea nitrogen (BldV) [Mass/Vol] 9 mg/dL 6 - 20 mg/dL [employer] Phone: [employer] Phone: Microscopic UrinalysisOrdere d By: Win Narvaez on 03-27-2021 Bacteria, UA FEW Abnormal None Seen /HPF [employer] Phone: Epithelial Cells, UA FEW /HPF [employer] Phone: Interpretation and review of laboratory results Abnormal [employer] Phone: RBC, UA 2-5 [employer] Phone: WBC, UA 0-1 [employer] Phone: [employer] Phone: No Panel InformationOrdered By: Win Narvaez on 03-27-2021 [employer] Phone: POC Urine QualOrde red By: Win Narvaez on 03-27-2021 Beta HCG ( test) Ql (U) Negative Negative [employer] Phone: Beta HCG ( test) Ql (U) [id number] [employer] Phone: Negative QC Pass/Fail Pass [employer] Phone: Positive QC Pass/Fail Pass [employer] Phone: US PELVIS COMPLETEOrdered By : Tien Oneal on 03-27-2021 The bilateral ovaries are mildly enlarged, right greater than left. Otherwise, unremarkable pelvic ultrasound. [employer] Phone: EXAMINATION: PELVIC ULTRASOUND 03/27/2021 TECHNIQUE: Multiple longitudinal and transverse grayscale images were obtained of the pelvis using transabdominal sonographic probe. COMPARISON: None HISTORY: ORDERING SYSTEM PROVIDED HISTORY: heavy vaginal bleeding FINDINGS: Measurements: Uterus: 8.5 x 3.3 x 5.4 cm. Endometrial stripe: Approximately 3 mm in thickness with incomplete visualization Right Ovary:6.9 x 3.8 x 6.0 cm Left Ovary: 5.1 x 3.4 x 3.7 cm Ultrasound Findings: Uterus: Uterus demonstrates normal myometrial echotexture. Endometrial stripe: Endometrial stripe is within normal limits. Right Ovary: Right ovary is within normal limits. Left Ovary: Left ovary is within normal limits. Free Fluid: No evidence of free fluid. [employer] Phone: Antonio, Mhy Incoming Radiant Results From [place] - 03/27/2021 3:01 PM EDT EXAMINATION: PELVIC ULTRASOUND 03/27/2021 TECHNIQUE: Multiple longitudinal and transverse grayscale images were obtained of the pelvis using transabdominal sonographic probe. COMPARISON: None HISTORY: ORDERING SYSTEM PROVIDED HISTORY: heavy vaginal bleeding FINDINGS: Measurements: Uterus: 8.5 x 3.3 x 5.4 cm. Endometrial stripe: Approximately 3 mm in thickness with incomplete visualization Right Ovary:6.9 x 3.8 x 6.0 cm Left Ovary: 5.1 x 3.4 x 3.7 cm Ultrasound Findings: Uterus: Uterus demonstrates normal myometrial echotexture. Endometrial stripe: Endometrial stripe is within normal limits. Right Ovary: Right ovary is within normal limits. Left Ovary: Left ovary is within normal limits. Free Fluid: No evidence of free fluid. IMPRESSION: The bilateral ovaries are mildly enlarged, right greater than left. Otherwise, unremarkable pelvic ultrasound. [employer] Phone: [employer] Phone: UrinalysisOrdered By: Win Narvaez on 03-27-2021 Bilirubin Urine Negative Negative [email or web address] Work Phone: Blood, Urine LARGE Abnormal Negative [employer] Phone: Clarity, UA Clear Clear [employer] Phone: Color, UA Yellow Straw/Yellow [employer] Phone: Glucose, Ur Negative Negative mg/dL [employer] Phone: Interpretation and review of laboratory results Abnormal [facility] [employer] Work Phone: Ketones Ql (U) Negative Negative mg/dL [facility] [employer] Work Phone: Leukocyte esterase Test strip Ql (U) Negative Negative [facility] [employer] Work Phone: Nitrite, Urine Negative Negative [employer] [facility] Work Phone: pH, UA 5.0 [facility] [employer] Work Phone: Protein, UA TRACE Negative mg/dL [facility] [employer] Work Phone: Specific [place], UA >=1.030 [facility] [employer] Work Phone: Urobilinogen, Urine 0.2 <2.0 E.U./dL [facility] Work Phone: [facility] [employer] Work Phone: NOSE/THROAT CULTUREon 2020 NOSE/THROAT CULTURE RUN DATE: 07/10/20 Laboratory LIVE PAGE 1 RUN TIME: 951 Specimen Inquiry RUN USER: INTERFACE [facility] Department of Laboratories [address] [place], [place] [id number] PATIENT: KYLIE KINGSLEYCIE N LOC: ALONDRA U #: [id number] HOME PHONE: AGE/SX: / ROOM: RE07/08/[address]: Ameena Corcoran APRN.CNP.: 99 BED: DIS: STATUS: REG REF LAB O/S: Specimen: [id number] Collected: 07/08/20 Status: RASHAUN Req#: [id number] Received: 07/08/20 Source: THROAT Sp Desc: Subm Dr: Ameena Corcoran APRN.CNP Ordered: NOSE/THRT CULT Procedure Result Verified > NOSE/THROAT CULTURE Final 07/10/20 HEAVY GROWTH OF NORMAL ARIN END OF REPORT Normal [facility] Comment on above: Performed By: #### C ULTNT #### [facility] [address] [address] Vital Signs Date Time Vital Sign Value Performing Clinician Faci lity 10-30-2022 08:56-0400 SaO2% (BldA) [Mass fraction] 97 % Deric Florence MD Work Phone: [employer] 10-30-2022 05:00-0400 Body temperature 97.9 [degF] Deric Florence MD Work Phone: [employer] 10-30-2022 05:00-0400 Diastolic blood pressure 74 mm[Hg] Deric Florence MD Work Phone: [employer] 10-30-2022 05:00-0400 Heart rate 74 /min Deric Florence MD Work Phone: [employer] 10-30-2022 05:00-0400 Respiratory rate 18 /min Deric Florence MD Work Phone: [employer] 10-30-2022 05:00-0400 Systolic blood pressure 126 mm[Hg] Deric Florence MD Work Phone: [employer] 10-29-2022 06:50-0400 Body height 170.2 cm Deric Florence MD Work Phone: [employer] 10-29-2022 06:50-0400 Body mass index (BMI) [Ratio] 55.6 kg/m2 Deric Florence MD Work Phone: [employer] 10-29-2022 06:50-0400 Body weight 161.03 kg Deric Florence MD Work Phone: [employer] 10-24-2022 12:17-0400 Body height 170.2 cm Sjwz 2 [employer] 10-24-2022 12:17-0400 Body mass index (BMI) [Ratio] 55.44 kg/m2 Sjwz 2 [employer] 10-24-2022 12:17-0400 Body temperature 98.01 [degF] Sjwz 2 [facility] [employer] [facility] [employer] 10-24-2022 12:17-0400 Body weight 160.57 kg Sjwz 2 [facility] [employer] 10-24-2022 12:17-0400 Diastolic blood pressure 62 mm[Hg] [facility] 10-24-2022 12:17-0400 Heart rate 77 /min Sjwz 2 [facility] [employer] 10-24-2022 12:17-0400 Respiratory rate 16 /min Sjwz 2 [facility] [employer] 10-24-2022 12:17-0400 SaO2% (BldA) [Mass fraction] 95 % Sjwz 2 [employer] 10-24-2022 12:17-0400 Systolic blood pressure 117 mm[Hg] [facility] 05-04-2022 08:55-0400 Body temperature 98.29 [degF] Deric Florence MD Work Phone: [employer] 05-04-2022 08:55-0400 Diastolic blood pressure 68 mm[Hg] Deric Florence MD Work Phone: [employer] 05-04-2022 08:55-0400 Heart rate 83 /min Deric Florence MD Work Phone: [employer] 05-04-2022 08:55-0400 Respiratory rate 16 /min Deric Florence MD Work Phone: [employer] 05-04-2022 08:55-0400 SaO2% (BldA) [Mass fraction] 92 % Deric Florence MD Work Phone: [employer] 05-04-2022 08:55-0400 Systolic blood pressure 128 mm[Hg] Deric Florence MD Work Phone: [employer] 11-04-2022 07:06-0400 Body height 170.2 cm Deric Florence MD Work Phone: [employer] 05-04-2022 07:06-0400 Body mass index (BMI) [Ratio] 61.21 kg/m2 Deric Florence MD Work Phone: [employer] 05-04-2022 07:06-0400 Body weight 177.27 kg Deric Florence MD Work Phone: [employer] 03-27-2021 20:08-0400 Heart rate 95 /min Tien Oneal [employer] Work Phone: [employer] Work Phone: 03-27-2021 13:47-0400 Body height 170.2 cm Tien De La Cruzkirstierhonda [employer] Work Phone: [employer] Work Phone: 03-27-2021 13:47-0400 Body mass index (BMI) [Ratio] 54.82 kg/m2 Tien Jonokirstierhonda [employer] Work Phone: [employer] Work Phone: 03-27-2021 13:47-0400 Body temperature 97.11 [degF] Tien De La Cruzkirstierhonda DOBSON Work Phone: [employer] Work Phone: 03-27-2021 13:47-0400 Body weight 158.76 kg Tien Oneal Work Phone: [employer] Work Phone: 03-27-2021 13:47-0400 Diastolic blood pressure 80 mm[Hg] Tien Oneal Work Phone: [employer] Work Phone: 03-27-2021 13:47-0400 Respiratory rate 16 /min Tien Oneal Work Phone: [employer] Work Phone: 03-27-2021 13:47-0400 SaO2% (BldA) [Mass fraction] 98 % Tien Oneal DO Work Phone: [employer] Phone: 03-27-2021 13:47-0400 Systolic blood pressure 173 mm[Hg] Tien Oneal [employer] Work Phone: [employer] Phone: Encounters Encounter Date Encounter Type Care Provider Facility Start: 11-10-2023 End: 11-10-2023 Emergency department patient visit NO PCP NO PCP [facility] Start: 08-14-2023 End: 08-14-2023 Emergency department patient visit TRAVIS VALLEJO [facility] Start: 12-14-2022 ambulatory [facility] Facility:[facility] Start: 12-03-2022 [facility] Facility:[facility] Start: 11-06-2022 [facility] Facility:[facility] Start: 10-29-2022 End: 10-30-2022 Evaluation and management of inpatient [facility] Start: 10-29-2022 End: 10-30-2022 Evaluation and management of inpatient Deric Florence MD Work Phone: [facility] SURG Comment on above: Post-operative state (Primary Dx); Morbid obesity (HCC) Start: 10-24-2022 End: 10-25-[address] [facility] Start: 10-24-2022 Encounter for other preprocedural examination [facility] Start: 10-24-2022 End: 10-24-2022 Patient encounter status Sjwz 2 [facility] PRE ADMIT TESTING Start: 10-24-2022 End: 10-24-2022 Subsequent hospital visit by physician Hans Pat Room 2 [facility] PRE ADMIT TESTING Comment on above: Preop testing (Prima ry Dx); Malnutrition following gastrointestinal surgery Start: 10-04-2022 ambulatory [facility] Start: 08-13-2022 [facility] Facility:[facility] Start: 07-31-2022 ambulatory KAELA GILLIAN Facility:[facility] Start: 07-13-2022 ambulatory KAELA GILLIAN Facility:[facility] Start: 06-14-2022 ambulatory KAELA GILLIAN Facility:[facility] Start: 05-04-2022 End: 05-04-2022 ambulatory KAELA GILLIAN [facility] Start: 05-04-2022 End: 05-04-2022 Subsequent hospital visit by physician Deric Florence MD Work Phone[facility] Comment on above: Morbid obesity due t o excess calories (HCC); Gastroesophageal reflux disease Start: 05-02-2022 End: 05-05-2022 ambulatory DERIC FLOR[facility] Start: 03-27-2021 End: 03-27-2021 Emergency department patient visit Tien Oneal DO Work Phone: [facility] Emergency Department Comment on above: DUB (dysfunctional u terine bleeding) (Primary Dx) Procedures Date Procedure Procedure Detail Performing Clinician Start: 10-30-2022 INCENTIVE SPIROMETRY RT KAELA GILLIAN Start: 10-30-2022 Gluc bld gluc mntr d ev cleared fda spec home use KAELA GILLIAN Start: 10-30-2022 INCENTIVE SPIROMETRY RT KAELA GILLIAN Start: 10-30-2022 NASAL CANNULA OXYGEN SA RA GILLIAN Start: 10-30-2022 DISCHARGE PATIENT KAELA GILLIAN Start: 10-30-2022 INCENTIVE SPIROMETRY RT KAELA GILLIAN Start: 10-30-2022 Hepatic function panel KAELA GILLIAN Start: 10-30-2022 Basic metabolic pane l calcium total KAELA GILLIAN Start: 10-30-2022 End: 10-30-2022 Basic metabolic panel calcium total Yang Hsu STEAM FRAME OPERATOR - [employer]OWS 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: Start: 10-30-2022 Lipid panel Yang Ferguson STEAM FRAME OPERATOR - WINDOWS 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: Start: 10-30-2022 Gluc bld gluc mntr d ev cleared fda spec home use KAELA GILLIAN Start: 10-30-2022 INCENTIVE SPIROMETRY RT KAELA GILLIAN Start: 10-29-2022 Gluc bld gluc mntr d ev cleared fda spec home use KAELA GILLIAN Start: 10-29-2022 INCENTIVE SPIROMETRY RT KAELA GILLIAN Start: 10-29-2022 Gluc bld gluc mntr d ev cleared fda spec home use Unknown Provider Result Start: 10-29-2022 INCENTIVE SPIROMETRY RT KAELA GILLIAN Start: 10-29-2022 INCENTIVE SPIROMETRY RT KAELA GILLIAN Start: 10-29-2022 Gluc bld gluc mntr d ev cleared fda spec home use KAELA GILLIAN Start: 10-29-2022 INCENTIVE SPIROMETRY RT KAELA GILLIAN Start: 10-29-2022 Gluc bld gluc mntr d ev cleared fda spec home use Unknown Provider Result Start: 10-29-2022 Urine test visual color cmprsn meths Eugene Monique MD Work Phone: Start: 10-29-2022 NOTIFY PHYSICIAN (SPECIFY) KAELA GILLIAN Start: 10-29-2022 REASON FOR NOT SELEC TING BASAL INSULIN KAELA GILLIAN Start: 10-29-2022 ENCOURAGE DEEP BREAT MADDI AND COUGHING KAELA GILLIAN Start: 10-29-2022 IP CONSULT TO HOSPITALIST KAELA GILLIAN Start: 10-29-2022 AMBULATE PATIENT KAELA P EASE Start: 10-29-2022 BARIATRIC DIET KAELA PEA SE Start: 10-29-2022 INCENTIVE SPIROMETRY RT KAELA GILLIAN Start: 10-29-2022 VITAL SIGNS KAELA GILLIAN Start: 10-29-2022 Hemoglobin glycosylated a1c Yangjean-paul Hsu APRN - WINDOWS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 [Z98.890] Patient Name: Batool Kingsley Date of Service: 10/30/2022 Subjective: Batool is a 22 y.o. female who was seen and examined today,10/30/2022, at the bedside. Batool is doing well postoperatively. She admits to abdominal soreness as to be expected. She is not yet passing flatus nor has she had a bowel movement. She is tolerating her liquid diet. Her mother was present at the bedside. Review of System: Constitutional: Denies fever or chills, weight loss or gain, fatigue or malaise. HEENT: Denies ear pain, sore throat, sinus or eye problems. Nasal cannula oxygen is in place. Cardiovascular: Denies any chest pain, irregular heartbeats, or palpitations. Respiratory: Denies shortness of breath, coughing, sputum production, hemoptysis, or wheezing. Gastrointestinal: Postoperative abdominal soreness as to be expected. She is tolerating a liquid diet. Genitourinary: Denies any urgency, frequency, hematuria. Voiding without difficulty. Extremities: Denies lower extremity swelling, edema or cyanosis. Neurology: Denies any headache or focal neurological deficits, Denies generalized weakness or memory difficulty. Psch: Denies being anxious or depressed. Musculoskeletal: Denies myalgias, joint complaints or back pain. Integumentary: Denies any rashes, ulcers, or excoriations. Denies bruising. Hematologic/Lymphatic: Denies bruising or bleeding. Physical Exam: I/O this shift: In: - Out: 700 [Urine:700] Intake/Output Summary (Last 24 hours) at 10/30/2022 0637 Last data filed at 10/30/2022 0516 Gross per 24 hour Intake 2401.96 ml Output 1110 ml Net 1291.96 ml I/O last 3 completed shifts: In: 2402 [P.O.:240; I.V.:2162] Out: 410 [Urine:400; Blood:10] Patient Vitals for the past 96 hrs (Last 3 readings): Weight 10/29/22 0650 (!) 355 lb (161 kg) Vital Signs: Blood pressure 126/74, pulse 74, temperature 97.9 F (36.6 C), resp. rate 18, height 5' 7 (1.702 m), weight (!) 355 lb (161 kg), SpO2 94 %. General appearance: Alert, responsive, oriented to person, place, and time. Well preserved, alert, no distress. Head: Normocephalic. No masses, lesions or tenderness. Eyes: PERRLA. EOMI. Sclera clear. Buccal mucosa moist. ENT: Ears normal. Mucosa normal. Nasal cannula oxygen is in place. Neck: Supple. Trachea midline. No thyromegaly. No JVD. No bruits. Heart: Rhythm regular. Rate controlled. No murmurs. Lungs: Symmetrical. Clear to auscultation bilaterally. No wheezes. No rhonchi. No rales. Abdomen: Soft. Mildly tender to palpation diffusely with voluntary guarding elicited. Bowel sounds are hypoactive. Incision sites are clean, dry, and intact. Extremities: Peripheral pulses present. No peripheral edema. No ulcers. No cyanosis. No clubbing. Neurologic: Alert x 3. No focal deficit. Cranial nerves grossly intact. No focal weakness. Psych: Behavior is normal. Mood appears normal. Speech is not rapid and/or pressured. Musculoskeletal: Spine ROM normal. Muscular strength intact. Gait not assessed. Integumentary: No rashes Skin normal color and texture. Genitalia/Breast: Deferred Medication: Scheduled Meds: insulin lispro 0-4 Units SubCUTAneous TID WC insulin lispro 0-4 Units SubCUTAneous Nightly sodium chloride flush 5-40 mL IntraVENous 2 times per day ketorolac 15 mg IntraVENous Q6H Continuous Infusions: dextrose lactated ringers IV soln 125 mL/hr at 10/30/22 0506 sodium chloride Objective Data: CBC with Differential: Lab Results Component Value Date/Time WBC 11.7 10/30/2022 04:51 AM RBC 4.18 10/30/2022 04:51 AM HGB 12.2 10/30/2022 04:51 AM HCT 38.2 10/30/2022 04:51 AM PLT 285 10/30/2022 04:51 AM MCV 91.4 10/30/2022 04:51 AM MCH 29.2 10/30/2022 04:51 AM MCHC 31.9 10/30/2022 04:51 AM RDW 13.2 10/30/2022 04:51 AM LYMPHOPCT 16.1 10/30/2022 04:51 AM MONOPCT 6.2 10/30/2022 04:51 AM BASOPCT 0.1 10/30/2022 04:51 AM MONOSABS 0.73 10/30/2022 04:51 AM LYMPHSABS 1.89 10/30/2022 04:51 AM EOSABS 0.00 10/30/2022 04:51 AM BASOSABS 0.01 10/30/2022 04:51 AM BMP: Lab Results Component Value Date/Time NA 140 10/30/2022 04:51 AM K 4.3 10/30/2022 04:51 AM K 4.3 10/24/2022 02:46 PM CL 104 10/30/2022 04:51 AM CO2 25 10/30/2022 04:51 AM BUN 13 10/30/2022 04:51 AM LABALBU 3.7 10/30/2022 04:51 AM CREATININE 0.6 10/30/2022 04:51 AM CALCIUM 8.9 10/30/2022 04:51 AM GFRAA >60 03/27/2021 06:08 PM LABGLOM >60 10/30/2022 04:51 AM GLUCOSE 117 10/30/2022 04:51 AM Assessment: Status post laparoscopic gastric bypass in the setting of morbid obesity Gastroesophageal reflux disease with possible hiatal hernia repair Ugg-crdwzgf-fnkocfwxc diabetes mellitus type 2 Anxiety Plan: Batool is doing very well postoperatively. Her pain is well controlled and she is tolerating a clear liquid diet. She is not yet passing flatus as we continue to await return of bowel function. Laboratory values and vital signs are otherwise stable. Home medications are being resumed. Anticipate discharge later this afternoon she is acceptable for discharge from an internal medicine standpoint. Continue current therapy. See orders for further plan of care. More than 50% of my time was spent at the bedside counseling/coordinating care with the patient and/or family with face to face contact. This time was spent reviewing notes and laboratory data as well as instructing and counseling the patient. Time I spent with the family or surrogate(s) is included only if the patient was incapable of providing the necessary information or participating in medical decisions. I also discussed the differential diagnosis and all of the proposed management plans with the patient and individuals accompanying the patient. I am readily available for any further decision-making and intervention. Christin Mason DO, F.A.C.O.I. 10/30/2022 6:37 AM documented in this encounter [employer] Phone: 10-24-2022 History of Presen t illness Narrative Images from the original note were not included. [facility] PRE OP INSTRUCTIONS FOR Batool Kingsley Date: 10/24/2022 Date of surgery: 10/29/22 Arrival Time: Hospital will call you between 5pm and 7pm with your final arrival time for surgery Do not eat or drink anything after midnight prior to surgery. This includes no water, chewing gum, mints or ice chips. Take the following medications with a small sip of water on the morning of Surgery: hydroxyzine, tylenol if needed Diabetics may take evening dose of insulin but none after midnight. If you feel symptomatic or low blood sugar morning of surgery drink 1-2 ounces of apple juice only. Aspirin, Ibuprofen, Advil, Naproxen, Vitamin E and other Anti-inflammatory products should be stopped before surgery as directed by your physician. Take Tylenol only unless instructed otherwise by your surgeon. Check with your Doctor regarding stopping Plavix, Coumadin, Lovenox, Eliquis, Effient, or other blood thinners. Do not smoke,use illicit drugs and do not drink any alcoholic beverages 24 hours prior to surgery. You may brush your teeth the morning of surgery. DO NOT SWALLOW WATER You MUST make arrangements for a responsible adult to take you home after your surgery. You will not be allowed to leave alone or drive yourself home. It is strongly suggested someone stay with you the first 24 hrs. Your surgery will be cancelled if you do not have a ride home. Please wear simple, loose fitting clothing to the hospital. Do not bring valuables (money, credit cards, checkbooks, etc.) Do not wear any makeup (including no eye makeup) or nail salvadorean on your fingers or toes. DO NOT wear any jewelry or piercings on day of surgery. All body piercing jewelry must be removed. Shower the night before surgery with _x__Antibacterial soap /CHG WIPES___x If you have a Living Will and Durable Power of Sink Cutter for Healthcare, please bring in a copy. If appropriate bring crutches, inspirex, WALKER, CANE etc... Notify your Surgeon if you develop any illness between now and surgery time, cough, cold, fever, sore throat, nausea, vomiting, etc. Please notify your surgeon if you experience dizziness, shortness of breath or blurred vision between now & the time of your surgery. If you have ___dentures, they will be removed before going to the OR; we will provide you a container. If you wear ___contact lenses or ___glasses, they will be removed; please bring a case for them. To provide excellent care visitors will be limited to 2 in the room at any given time. Please bring picture ID and insurance card. Sleep apnea patients need to bring CPAP AND SETTINGS to hospital on day of surgery. During flu season no children under the age of 14 are permitted in the hospital for the safety of all patients. Other please come in through main entrance and go to information desk Please call MERCURY RECOVERER if you have any further questions. Pre Admit Testing [phone] [facility] [phone] documented in this encounter [employer] Phone: 05-04-2022 Hospital Discharg e instructions Ashlie Goyal RN - 05/04/2022 9:47 AM EDT Images from the original note were not included. Upper GI Endoscopy: What to Expect at Home Your Recovery You had an upper GI endoscopy. Your doctor used a thin, lighted tube that bends to look at the inside of your esophagus, your stomach, and the first part of the small intestine, called the duodenum. After you have an endoscopy, you will stay at the hospital or clinic for 1 to 2 hours. This will allow the medicine to wear off. You will be able to go home after your doctor or nurse checks to make sure that you're not having any problems. You may have to stay overnight if you had treatment during the test. You may have a sore throat for a day or two after the test. This care sheet gives you a general idea about what to expect after the test. How can you care for yourself at home? Activity Rest as much as you need to after you go home. You should be able to go back to your usual activities the day after the test. Diet Follow your doctor's directions for eating after the test. Drink plenty of fluids (unless your doctor has told you not to). Medications If you have a sore throat the day after the test, use an voyy-wto-iksgyiz spray to numb your throat. Follow-up care is a sanders part of your treatment and safety. Be sure to make and go to all appointments, and call your doctor if you are having problems. It's also a good idea to know your test results and keep a list of the medicines you take. When should you call for help? Call 911 anytime you think you may need emergency care. For example, call if: You passed out (lost consciousness). You have trouble breathing. You pass maroon or bloody stools. Call your doctor now or seek immediate medical care if: You have pain that does not get better after your take pain medicine. You have new or worse belly pain. You have blood in your stools. You are sick to your stomach and cannot keep fluids down. You have a fever. You cannot pass stools or gas. Watch closely for changes in your health, and be sure to contact your doctor if: Your throat still hurts after a day or two. You do not get better as expected. Where can you learn more? Go to [email or web address] and sign in to your [employer] account. Enter J454 in the Search Health Information box to learn more about Upper GI Endoscopy: What to Expect at Home. If you do not have an account, please click on the Sign Up Now link. Current as of: December 04, 2021 Content Version: 13.4 [employer]. Care instructions adapted under license by [employer]. If you have questions about a medical condition or this instruction, always ask your healthcare professional. [employer] disclaims any warranty or liability for your use of this information. documented in this encounter BON LEONELA Liqueo Work Phone: 05-04-2022 History of Presen t illness Narrative SBAR form completed and placed on chart. Chart with patient in transit. Images from the original note were not included. [facility] PRE OP INSTRUCTIONS FOR Batoolfelipe Kingsley Date: 05/03/2022 Date of surgery: 05/04/2022 Arrival Time: Hospital will call you between 5pm and 7pm with your final arrival time for surgery Nothing by mouth (NPO) as instructed.____midnight Take the following medications with a small sip of water on the morning of Surgery: bring metformen Diabetics may take evening dose of insulin but none after midnight. If you feel symptomatic or low blood sugar morning of surgery drink 1-2 ounces of apple juice only. Aspirin, Ibuprofen, Advil, Naproxen, Vitamin E and other Anti-inflammatory products should be stopped before surgery as directed by your physician. Take Tylenol only unless instructed otherwise by your surgeon. Check with your Doctor regarding stopping Plavix, Coumadin, Lovenox, Eliquis, Effient, or other blood thinners. Do not smoke,use illicit drugs and do not drink any alcoholic beverages 24 hours prior to surgery. You may brush your teeth the morning of surgery. DO NOT SWALLOW WATER You MUST make arrangements for a responsible adult to take you home after your surgery. You will not be allowed to leave alone or drive yourself home. It is strongly suggested someone stay with you the first 24 hrs. Your surgery will be cancelled if you do not have a ride home. PEDIATRIC PATIENTS ONLY: A parent/legal guardian must accompany a child scheduled for surgery and plan to stay at the hospital until the child is discharged. Please do not bring other children with you. Please wear simple, loose fitting clothing to the hospital. Do not bring valuables (money, credit cards, checkbooks, etc.) Do not wear any makeup (including no eye makeup) or nail salvadorean on your fingers or toes. DO NOT wear any jewelry or piercings on day of surgery. All body piercing jewelry must be removed. Shower the night before surgery with _x__Antibacterial soap /ALEXANDER WIPES TOTAL JOINT REPLACEMENT/HYSTERECTOMY PATIENTS ONLY---Remember to bring Blood Bank bracelet to the hospital on the day of surgery. If you have a Living Will and Durable Power of Sink Cutter for Healthcare, please bring in a copy. If appropriate bring crutches, inspirex, WALKER, CANE etc... Notify your Surgeon if you develop any illness between now and surgery time, cough, cold, fever, sore throat, nausea, vomiting, etc. Please notify your surgeon if you experience dizziness, shortness of breath or blurred vision between now & the time of your surgery. If you have ___dentures, they will be removed before going to the OR; we will provide you a container. If you wear ___contact lenses or ___glasses, they will be removed; please bring a case for them. To provide excellent care visitors will be limited to 2 in the room at any given time. Please bring picture ID and insurance card. During flu season no children under the age of 14 are permitted in the hospital for the safety of all patients. Other Please call MERCURY RECOVERER if you have any further questions. Pre Admit Testing [phone] [facility] [phone] documented in this encounter [employer] Phone: Evaluation note Diagnosis DUB (dysfunctional uterine bleeding)- Primary Other disorder of menstruation and other abnormal bleeding from female genital tract documented in this encounter [employer] Phone: evaluation note* Diagnosis Gastroesophageal reflux disease- Primary Esophageal reflux Morbid obesity due to excess calories (HCC) documented in this encounter [employer] Phone: evaluation note* Diagnosis Morbid obesity (HCC)- Primary Morbid obesity Preop testing- Primary Preoperative examination, unspecified 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 * AUB (Abnormal Uterine Bleeding) (Citizen Of [place]) documented in this encounterIntentiva Phone: Summary Purpose Family History No Family History Records FoundNo Family History Records FoundNo Family History Records FoundNo Family History Records FoundNo Family History Records Found Advance Directives No Advanced Directives Records FoundLatest Code Status on File Code Status Date Activated Date Inactivated Comments Full Code 05/04/2022 7:39 AM Latest Code Status on File Code Status Date Activated Date Inactivated Comments Full Code 05/04/2022 7:39 AM 05/04/2022 11:57 AM Latest Code Status on File Code Status Date Activated Date Inactivated Comments Full Code 10/29/2022 6:49 AM Code Status History Code Status Date Activated Date Inactivated Comments Full Code 05/04/2022 7:39 AM 05/04/2022 11:57 AM Additional Source Comments INFORMATION SOURCE (unrecogn ized section and content) DATE CREATED AUTHOR 07/16/2020 [facility] DATE CREATED AUTHOR AUTHOR'S ORGANIZ ATION 05/05/2022 [facility] DATE CREATED AUTHOR AUTHOR'S ORGANIZ ATION 02/07/2023 [facility] DATE CREATED AUTHOR AUTHOR'S ORGANIZ ATION 06/04/2023 [facility] DATE CREATED AUTHOR AUTHOR'S ORGANIZ ATION 11/11/2023 [facility] Reason for Visit (unrecogniz ed section and content) Reason Comments Vaginal Bleeding 4 pad per hour, larg e clots present Specialty Diagnoses / Procedures Referred By Geronimo reardon Referred To Contact Diagnoses Gastroesophageal reflux disease Gastroesophageal reflux disease [K21.9] Procedures TN EGD TRANSORAL BIOPSY SINGLE/MULTIPLE TN EGD TRANSORAL BIOPSY SINGLE/MULTIPLE TN ESOPHAGOGASTRODUODENOSCOPY TRANSORAL DIAGNOSTIC TN EGD BALLOON DILATION ESOPHAGUS <30 MM DIAM EGD ESOPHAGOGASTRODUODENOSCOPY Deric Florence MD [address] [place] [address] [address] [place] [address] [facility] [address] [place] [address] Referral ID Status Reason Start Date Expiration Date Visits Re quested Visits Authorized [id number] 1 1 Specialty Diagnoses / Procedures Referred By Geronmio reardon Referred To Contact Diagnoses Morbid obesity (HCC) Morbid obesity (HCC) [E66.01] Procedures TN LAPS GSTR RSTCV PX W/BYP NUNO-EN-Y LIMB <150 CM GASTRIC BYPASS NUNO-EN-Y LAPAROSCOPIC Deric Florence MD [address] [facility] [address] [place] [address] [facility] [address] [place] [address] Referral ID Status Reason Start Date Expiration Date Visits Re quested Visits Authorized [id number] 1 1 Continuous Active and Recently Administ ered Medications (unrecognized section and content) Medication Order 05/02/2022 05/03/2022 05/04/2022 lactated ringers infusion IntraVENous, at 75 mL/hr, CONTINUOUS, Starting on Sat05/04/22 at 0800, Pre-procedure(GI) 0821 (New Bag - Prov ider: SARAI Price CRNA)0840 (Anesthesia Volume Adjustment - Provider: SARAI Price CRNA) PRN Medication Order 05/02/2022 05/03/2022 05/04/2022 sodium chloride flush 0.9 % injection 5-40 mL 5-40 mL, IntraVENous, PRN, Starting on Sat05/04/22 at 0739, Until Discontinued, Line Care, After every IV line use, For Line Patency: Peripheral IV = 5 mL; Midline or Central Line = 10 mL/lumen. If following IV push medication, administer flush at same rate as the IV push. Flush volume is determined by type of infusion therapy being given. For non-viscous solutions use: Peripheral IV = 5 mL Midline or Central Line = 10 mL/lumen For viscous solutions (i.e. blood components, parenteral nutrition, contrast media, or after obtaining blood sample) use: Peripheral IV = 10 mL Midline or Central Line = 20 mL/lumen, Pre-op (day of surgery) Scheduled Medication Order 10/28/2022 10/29/2022 10/30/2022 ceFAZolin (ANCEF) 3000 mg in sodium chloride 0.9% 100 mL IVPB (COMPLETED) 3,000 mg, IntraVENous, SOCIAL WORK PROGRAM COORDINATOR TO O.R., 1 dose, On Sat10/29/22 at 0715, Antimicrobial Indications: Surgical Prophylaxis, Administer within 1 hour prior to incision. Repeat in 3-4 hours after initial dose if still intra-op., Pre-op (day of surgery) 0844 (Given - Provider: Maggie Avila APRN - WINDOW MACHINE OPERATOR) insulin lispro (HUMALOG) injection vial 0-4 Units 0-4 Units, SubCUTAneous, 3 TIMES DAILY WITH MEALS, First dose on Sat10/29/22 at 1215, Until Discontinued, Corrective Low Dose Algorithm Glucose: Dose: 70-199 No Insulin 200-249 1 Unit 250-299 2 Units 300-349 3 Units Over 349 4 Units and notify physician 1215 (Not Given - Provider: Dena Fu RN - Reason: Order parameters not met)1621 (Not Given - Provider: Dena Fu RN - Reason: Order parameters not met) 0800 (Not Given - Provider: Helen Bradford RN - Reason: Order parameters not met)1200 (Due)1700 (Due) insulin lispro (HUMALOG) injection vial 0-4 Units 0-4 Units, SubCUTAneous, NIGHTLY, First dose on Sat10/29/22 at 2100, Until Discontinued, If continuous tube feedings/TPN/NPO, give correction dose based on result, no reduction in dose. If eating or bolus tube feeding: Corrective Bedtime Algorithm Glucose: Dose: 70-299 No Insulin 300-349 4 Units Over 349 4 Units and notify physician 2030 (Not Given - Provider: Jennifer Huff RN - Reason: Order parameters not met) 2100 (Due) ketorolac (TORADOL) injection 15 mg 15 mg, IntraVENous, EVERY 6 HOURS, 12 doses, First dose on Sat10/29/22 at 1215, Last dose on Sat11/01/22 at 0615, Do not administer for more than 5 days., Post-op 1229 (Given - Provider: Dena Fu RN)1736 (Given - Provider: Dena Fu RN) 0028 (Given - Provider: Jennifer Huff RN)0516 (Given - Provider: Jennifer Huff RN)1215 (Due)1815 (Due) methocarbamol (ROBAXIN) injection 1,000 mg (COMPLETED) 1,000 mg, IntraVENous, ONCE, 1 dose, On Sat10/29/22 at 1015, Give at a maximum rate of 3 mL/minute Dose 1000 mg may be administered undiluted or diluted over 4 minutes. 1022 (Given - Provider: Khushi Hebert, MELANIA) midazolam (VERSED) injection 2 mg (COMPLETED) 2 mg, IntraVENous, ONCE, 1 dose, On Sat10/29/22 at 1015 0951 (Given - Provider: Khushi Hebert, RN) ondansetron (ZOFRAN) injection 4 mg (COMPLETED) 4 mg, IntraVENous, ONCE, 1 dose, On Sat10/29/22 at 0715, Pre-op (day of surgery) 0715 (Given - Provider: Sarahi Stewart RN) scopolamine (TRANSDERM-SCOP) transdermal patch 1 patch (CANCELED) 1 patch, TransDERmal, Administer over 72 Hours, EVERY 72 HOURS, First dose on Sat10/29/22 at 0715, For 1 dose, Remove in 72 hours, Pre-op (day of surgery) 0715 (Patch Applied - Provider: Sarahi Stewart RN)1159 (Due: Patch Removed - Provider: Betty Jade RN - Comment: Time automatically adjusted from order being discontinued) sodium chloride flush 0.9 % injection 5-40 mL 5-40 mL, IntraVENous, EVERY 12 HOURS SCHEDULED (2 times per day), First dose on Sat10/29/22 at 2100, Until Discontinued, For Line Patency: Peripheral IV = 5 mL; Midline or Central Line = 10 mL/lumen. If following IV push medication, administer flush at same rate as the IV push. Flush volume is determined by type of infusion therapy being given. For non-viscous solutions use: Peripheral IV = 5 mL Midline or Central Line = 10 mL/lumen For viscous solutions (i.e. blood components, parenteral nutrition, contrast media, or after obtaining blood sample) use: Peripheral IV = 10 mL Midline or Central Line = 20 mL/lumen, Post-op 2029 (Not Given - Provider: Jennifer Huff RN - Reason: IV Fluid Infusing) 0900 (Due)2100 (Due) Continuous Medication Order 10/28/2022 10/29/2022 10/30/2022 lactated ringers IV soln infusion (CANCELED) IntraVENous, at 125 mL/hr, CONTINUOUS, Starting on Sat10/29/22 at 0715, Pre-op (day of surgery) 0720 (New Bag - Provider: Sarahi Stewart RN) lactated ringers IV soln infusion IntraVENous, at 125 mL/hr, CONTINUOUS, Starting on Sat10/29/22 at 1215, Post-op 1228 (New Bag - Provider: Dena Fu RN)1229 (Rate/Dose Verify - Provider: Dena Fu RN)1836 (Rate/Dose Verify - Provider: Dena Fu, RN)2039 (New Bag - Provider: Jennifer Huff, MELANIA) 0506 (New Bag - Provider: Jennifer Huff RN) PRN Medication Order 10/28/2022 10/29/2022 10/30/2022 0.9 % sodium chloride infusion IntraVENous, at 5-250 mL/hr, PRN, if patient receiving piggyback infusions and maintenance fluids are not ordered OR KVO fluids to protect IV site / prevent frequent line interruptions/ long duration, Starting on Sat10/29/22 at 1159, For piggyback infusion, administer at same rate as piggyback for a total of 25 mL. Enter 25 mL into dose field and piggyback rate into rate field of order. If piggyback is infusing at a rate less than 100 mL/hr, enter 25 mL into dose field and 100 mL/hr into rate field of order. For KVO fluids, enter rate of 20 mL/hr or less into rate field of order., Post-op bupivacaine-EPINEPHrine PF (MARCAINE-w/EPINEPHrine) 0.25% -[id number] injection (CANCELED) PRN, Starting on Sat10/29/22 at 0930, Until Sat10/29/22 at 0943, Intra-op 0930 (Given - Provider: Sharla Gottlieb DO) dextrose 10 % infusion IntraVENous, at 100 mL/hr, CONTINUOUS PRN, if blood glucose remains LESS THAN 70 mg/dL after 2 dextrose 10% intravenous boluses or administration of glucagon, Starting on Sat10/29/22 at 1159, If blood glucose fails to stabilize after 2 dextrose 10% intravenous boluses or glucagon administration, start dextrose 10% infusion at 100 mL/hour and repeat blood glucose at 30 and 60 minutes. If blood glucose is GREATER THAN 70 mg/dL after 60 minutes, discontinue dextrose 10% infusion. dextrose bolus 10% 125 mL(Linked Group 1) 125 mL, IntraVENous, at 937.5 mL/hr, Administer over 8 Minutes, PRN, Other, Blood glucose 40 - 69 mg/dL and patient NOT ALERT or NPO, Starting on Sat10/29/22 at 1159, Repeat blood glucose in 15 minutes. If blood glucose remains LESS THAN 70 mg/dL, repeat treatment and recheck blood glucose in 15 minutes x 2. If using glycemic management system, dose as instructed per system. If blood glucose remains LESS THAN 70 mg/dL after 2 intravenous boluses start dextrose 10% at 100 mL/hour and notify provider. dextrose bolus 10% 250 mL(Linked Group 1) 250 mL, IntraVENous, at 937.5 mL/hr, Administer over 16 Minutes, PRN, Other, Blood glucose LESS THAN 40 mg/dL and patient NOT ALERT or NPO, Starting on Sat10/29/22 at 1159, Repeat blood glucose in 15 minutes. If blood glucose remains LESS THAN 70 mg/dL, repeat treatment and recheck blood glucose in 15 minutes x 2. If using glycemic management system, dose as instructed per system. If blood glucose remains LESS THAN 70 mg/dL after 2 intravenous boluses start dextrose 10% at 100 mL/hour and notify provider. glucagon (rDNA) injection 1 mg 1 mg, SubCUTAneous, PRN, Starting on Sat10/29/22 at 1159, Until Discontinued, Low blood sugar, Blood glucose LESS THAN 70 mg/dL and patient NOT ALERT or NPO and does not have IV access., After administration, attempt intravenous access and start dextrose 10% at 100 mL/hr. Repeat blood glucose in 15 minutes x 2 and notify provider. glucose chewable tablet 16 g 16 g (4 tablet), Oral, PRN, Starting on Sat10/29/22 at 1159, Until Discontinued, Low blood sugar, If blood glucose is LESS THAN 70 mg/dL and patient is alert and tolerating oral. Give 4 tablets (16g) Repeat blood glucose in 15 minutes. If blood glucose is LESS THAN 70 mg/dL, repeat treatment and recheck blood glucose in 15 minutes x 2. If blood glucose remains LESS THAN 70 mg/dL, notify provider. HYDROmorphone HCl PF (DILAUDID) injection 0.25 mg (CANCELED) 0.25 mg, IntraVENous, EVERY 5 MIN PRN, 8 doses, Starting on Sat10/29/22 at 0949, Until Sat10/29/22 at 1158, Pain Moderate (4-6), For Phase I. If Phase II oral narcotics have been administered in the last 60 minutes, do not administer IV narcotics unless specifically approved by provider., PACU only 1045 (Given - Provider: Khushi Hebert RN)1055 (Given - Provider: Khushi Hebert RN) HYDROmorphone HCl PF (DILAUDID) injection 0.5 mg (COMPLETED) 0.5 mg, IntraVENous, EVERY 5 MIN PRN, 2 doses, Starting on Sat10/29/22 at 0949, Until Sat10/29/22 at 1010, Pain Severe (7-10), For Phase I. If Phase II oral narcotics have been administered in the last 60 minutes, do not administer IV narcotics unless specifically approved by provider., PACU only 1000 (Given - Provider: Khushi Hebert RN)1010 (Given - Provider: Khushi Hebert RN) magnesium sulfate 1000 mg in dextrose 5% 100 mL IVPB 1,000 mg, IntraVENous, at 100 mL/hr, Administer over 1 Hours, PRN, Other, Per Magnesium IV Replacement Protocol, Starting on Sat10/29/22 at 1159, Mg Lab Replacement Action 1.4-1.6 1 gram IVPB x 2 doses (2 gram Total) 1.0-1.3 1 gram IVPB x 4 doses (4 gram Total) <1.0 CALL PHYSICIAN and 1 gram IVPB x 4 doses (4 gram Total) Infuse at 1 gram/hr Repeat Mag level next AM Protocol not for use in Patients with CrCl<30ml/min morphine (PF) injection 2 mg(Linked Group 2) 2 mg, IntraVENous, EVERY 2 HOURS PRN, Starting on Sat10/29/22 at 1159, Until Discontinued, Pain Moderate (4-6), If oral and IV narcotics ordered, use oral first and only use IV if oral is ineffective or cannot take oral. Do Not give oral and IV within 1 hour of each other unless specifically ordered., Post-op 2030 (Given - Provider: Jennifer Huff RN) 0356 (Given - Provider: Isak Bradshaw RN)0856 (See Alternative - Provider: Helen Bradford RN) morphine injection 4 mg(Linked Group 2) 4 mg, IntraVENous, EVERY 2 HOURS PRN, Starting on Sat10/29/22 at 1159, Until Discontinued, Pain Severe (7-10), If oral and IV narcotics ordered, use oral first and only use IV if oral is ineffective or cannot take oral. Do Not give oral and IV within 1 hour of each other unless specifically ordered., Post-op 2030 (See Alternative - Provider: Jennifer Huff RN) 035 (See Alternative - Provider: Isak Bradshaw, MELANIA)0856 (Given - Provider: Helen Bradford, MELANIA) ondansetron (ZOFRAN) injection 4 mg 4 mg, IntraVENous, EVERY 6 HOURS PRN, Starting on Sat10/29/22 at 1159, Until Discontinued, Nausea, Post-op potassium bicarb-citric acid (EFFER-K) effervescent tablet 40 mEq(Linked Group 3) 40 mEq, Oral, PRN, Starting on Sat10/29/22 at 1159, Until Discontinued, Per Potassium Replacement Protocol, Administer as alternative if patient unable to tolerate oral tablet. K Lab Replacement Action 3.1 to 3.5 40 mEq ORAL x 1 Under 3.1 Refer to IV replacement protocol Recheck K level in AM. Protocol not for use in patients with CrCl less than 30 mL/min. Do not chew or crush. Dissolve flavored tablets completely in 3 to 4 ounces of cold water; unflavored tablets may be dissolved in 3 to 4 ounces of cold juice. Patient to sip slowly over a 5 to 10 minute period. May further dilute if GI adverse effects occur. potassium chloride (KLOR-CON M) extended release tablet 40 mEq(Linked Group 3) 40 mEq, Oral, PRN, Starting on Sat10/29/22 at 1159, Until Discontinued, Per Potassium Replacement Protocol, May give alternative linked oral order (ordered as effervescent, packet, or liquid solution) if patient unable to tolerate tablet. K Lab Replacement Action 3.1 to 3.5 40 mEq ORAL x 1 Under 3.1 Refer to IV replacement protocol Recheck K level in AM. Protocol not for use in patients with CrCl less than 30 mL/min. potassium chloride 10 mEq/100 mL IVPB (Peripheral Line)(Linked Group 3) 10 mEq, IntraVENous, PRN, Starting on Sat10/29/22 at 1159, Until Discontinued, at 100 mL/hr, Per Potassium Replacement Protocol, K Lab Replacement Action 2.7 to 3.0 10 mEq IVPB x 6 doses (60 mEq Total) Under 2.7 CALL PROVIDER and administer 10 mEq IVPB x 6 doses (60 mEq Total) Infuse at 10 mEq/hr. Repeat Potassium lab 1 hour after final administration. Protocol not for use in patients with CrCl less than 30 mL/min. prochlorperazine (COMPAZINE) injection 10 mg 10 mg, IntraVENous, EVERY 6 HOURS PRN, Starting on Sat10/29/22 at 1159, Until Discontinued, Nausea, Post-op prochlorperazine (COMPAZINE) injection 5 mg (COMPLETED) 5 mg, IntraVENous, ONCE PRN, 1 dose, Starting on Sat10/29/22 at 0949, Until Sat10/29/22 at 1048, Nausea, Initial antiemetic therapy., PACU only 1048 (Given - Provider: Khushi Hebert RN) sodium chloride flush 0.9 % injection 5-40 mL 5-40 mL, IntraVENous, PRN, Starting on Sat10/29/22 at 1159, Until Discontinued, Line Care, After every IV line use, For Line Patency: Peripheral IV = 5 mL; Midline or Central Line = 10 mL/lumen. If following IV push medication, administer flush at same rate as the IV push. Flush volume is determined by type of infusion therapy being given. For non-viscous solutions use: Peripheral IV = 5 mL Midline or Central Line = 10 mL/lumen For viscous solutions (i.e. blood components, parenteral nutrition, contrast media, or after obtaining blood sample) use: Peripheral IV = 10 mL Midline or Central Line = 20 mL/lumen, Post-op sodium phosphate 25.77 mmol in sodium chloride 0.9 % 250 mL IVPB(Linked Group 4) 25.77 mmol (rounded from 25.76 mmol = 0.16 mmol/kg 161 kg), IntraVENous, at 62.5 mL/hr, Administer over 4 Hours, PRN, Phosphorus Replacement, Starting on Sat10/29/22 at 1159, Phos Lab Replacement Action Less than 1.6 0.32 mmol/kg IVPB x 1 (Max dose 60 mmol) 1.6-2.2 0.16 mmol/kg IVPB x 1 (Max dose 30 mmol) Recheck lab 1 hour after completion of infusion. Not for use in patients with CrCl less than 30 mL/min. sodium phosphate 51.51 mmol in sodium chloride 0.9 % 500 mL IVPB(Linked Group 4) 51.51 mmol (rounded from 51.52 mmol = 0.32 mmol/kg 161 kg), IntraVENous, at 83.3 mL/hr, Administer over 6 Hours, PRN, Phosphorus Replacement, Starting on Sat10/29/22 at 1159, Phos Lab Replacement Action Less than 1.6 0.32 mmol/kg IVPB x 1 (Max dose 60 mmol) 1.6-2.2 0.16 mmol/kg IVPB x 1 (Max dose 30 mmol) Recheck lab 1 hour after completion of infusion. Not for use in patients with CrCl less than 30 mL/min. Linked Groups Order Group 1: dextrose bolus 10% 125 mLJump to med 125 mL, IntraVENous, at 937.5 mL/hr, Administer over 8 Minutes, PRN, Other, Blood glucose 40 - 69 mg/dL and patient NOT ALERT or NPO, Starting on Sat10/29/22 at 1159
Repeat blood glucose in 15 minutes. If blood glucose remains LESS THAN 70 mg/dL, repeat treatment and recheck blood glucose in 15 minutes x 2. If using glycemic management system, dose as instructed per system. If blood glucose remains LESS THAN 70 mg/dL after 2 intravenous boluses start dextrose 10% at 100 mL/hour and notify provider.
Or dextrose bolus 10% 250 mLJump to med 250 mL, IntraVENous, at 937.5 mL/hr, Administer over 16 Minutes, PRN, Other, Blood glucose LESS THAN 40 mg/dL and patient NOT ALERT or NPO, Starting on Sat10/29/22 at 1159
Repeat blood glucose in 15 minutes. If blood glucose remains LESS THAN 70 mg/dL, repeat treatment and recheck blood glucose in 15 minutes x 2. If using glycemic management system, dose as instructed per system. If blood glucose remains LESS THAN 70 mg/dL after 2 intravenous boluses start dextrose 10% at 100 mL/hour and notify provider.
Group 2: morphine (PF) injection 2 mgJump to med 2 mg, IntraVENous, EVERY 2 HOURS PRN, Starting on Sat10/29/22 at 1159, Until Discontinued, Pain Moderate (4-6)
If oral and IV narcotics ordered, use oral first and only use IV if oral is ineffective or cannot take oral. Do Not give oral and IV within 1 hour of each other unless specifically ordered.
Post-op Or morphine injection 4 mgJump to med 4 mg, IntraVENous, EVERY 2 HOURS PRN, Starting on Sat10/29/22 at 1159, Until Discontinued, Pain Severe (7-10)
If oral and IV narcotics ordered, use oral first and only use IV if oral is ineffective or cannot take oral. Do Not give oral and IV within 1 hour of each other unless specifically ordered.
Post-op Group 3: potassium chloride (KLOR-CON M) extended release tablet 40 mEqJump to med 40 mEq, Oral, PRN, Starting on Sat10/29/22 at 1159, Until Discontinued, Per Potassium Replacement Protocol
May give alternative linked oral order (ordered as effervescent, packet, or liquid solution) if patient unable to tolerate tablet. K Lab Repla cemen t Action 3.1 to 3.5 40 mEq ORAL x 1 Under 3.1 Refer to IV replacement protocol Recheck K level in AM. Protocol not for use in patients with CrCl less than 30 mL/min.
Or potassium bicarb-citric acid (EFFER-K) effervescent tablet 40 mEqJump to med 40 mEq, Oral, PRN, Starting on Sat10/29/22 at 1159, Until Discontinued, Per Potassium Replacement Protocol
Administer as alternative if patient unable to tolerate oral tablet. K Lab Repla cemen t Action 3.1 to 3.5 40 mEq ORAL x 1 Under 3.1 Refer to IV replacement protocol Recheck K level in AM. Protocol not for use in patients with CrCl less than 30 mL/min. Do not chew or crush. Dissolve flavored tablets completely in 3 to 4 ounces of cold water; unflavored tablets may be dissolved in 3 to 4 ounces of cold juice. Patient to sip slowly over a 5 to 10 minute period. May further dilute if GI adverse effects occur.
Or potassium chloride 10 mEq/100 mL IVPB (Peripheral Line)Jump to med 10 mEq, IntraVENous, PRN, Starting on Sat10/29/22 at 1159, Until Discontinued, at 100 mL/hr, Per Potassium Replacement Protocol
K Lab Replacement Action 2.7 to 3.0 10 mEq IVPB x 6 doses (60 mEq Total) Under 2.7 CALL PROVIDER and administer 10 mEq IVPB x 6 doses (60 mEq Total) Infuse at 10 mEq/hr. Repeat Potassium lab 1 hour after final administration. Protocol not for use in patients with CrCl less than 30 mL/min.
Group 4: sodium phosphate 25.77 mmol in sodium chloride 0.9 % 250 mL IVPBJump to med 25.77 mmol (rounded from 25.76 mmol = 0.16 mmol/kg 161 kg), IntraVENous, at 62.5 mL/hr, Administer over 4 Hours, PRN, Phosphorus Replacement, Starting on Sat10/29/22 at 1159
Phos Lab Replacement Action Less than 1.6 0.32 mmol/kg IVPB x 1 (Max dose 60 mmol) 1.6-2.2 0.16 mmol/kg IVPB x 1 (Max dose 30 mmol) Recheck lab 1 hour after completion of infusion. Not for use in patients with CrCl less than 30 mL/min.
Or sodium phosphate 51.51 mmol in sodium chloride 0.9 % 500 mL IVPBJump to med 51.51 mmol (rounded from 51.52 mmol = 0.32 mmol/kg 161 kg), IntraVENous, at 83.3 mL/hr, Administer over 6 Hours, PRN, Phosphorus Replacement, Starting on Sat10/29/22 at 1159
Phos Lab Replacement Action Less than 1.6 0.32 mmol/kg IVPB x 1 (Max dose 60 mmol) 1.6-2.2 0.16 mmol/kg IVPB x 1 (Max dose 30 mmol) Recheck lab 1 hour after completion of infusion. Not for use in patients with CrCl less than 30 mL/min.
Care Teams (unrecognized sec tion and content) Knitter Mechanic Relationship Specialty Start Date End Date Kaela Arellano, STEAM FRAME OPERATOR [facility] [address] [place] [address] PCP - General Certified Nurse Practitioner 04/27/22 Knitter Mechanic Relationship Specialty Start Date End Date Kaela Arellano, STEAM FRAME OPERATOR [facility] [id number] [address] [place] [address] PCP - General Certified Nurse Practitioner 09/14/22 Knitter Mechanic Relationship Specialty Start Date End Date Kaela Arellano, [facility] [address] [place] [address] PCP - General Certified Nurse Practitioner 09/14/22 Ordered Prescriptions (unrec ognized section and content) Prescription Sig Dispensed Refills Start Date End Da te traMADol (ULTRAM) 50 MG tabletIndications:Post-o perative state Take 1 tablet by mouth every 6 hours as needed for Pain for up to 3 days. Intended supply: 3 days. Take lowest dose possible to manage pain Max Daily Amount: 200 mg 5 tablet 0 10/30/2022 11/02/2022 FOR RECORDS PERTAINING TO PATIENTS WHO ARE OR HAVE BEEN ENROLLED IN A CHEMICAL DEPENDENCY/SUBSTANCEABUSE PROGRAM, SOME INFORMATION MAY BE OMITTED. This clinical summary was aggregated from multiple sources. Caution should be exercised in using it in the provision of clinical care. This summary normalizes information from multiple sources, and as a consequence, information in this document may materially change the coding, format and clinical context of patient data. In addition, data may be omitted in some cases. CLINICAL DECISIONS SHOULD BE BASED ON THE PRIMARY CLINICAL RECORDS. [employer] provides no warranty or guarantee of the accuracy or completeness of information in this document.
[2023-12-12 17:05] LABS: BOX Test Sent Out Y
== END 2023-12-12 16:36 | disposition home or self-care (01) ==
LOC: LAB 16:38
PROVIDERS: Visit Provider Obstetrics & Gynecology
DX: Z34.80 Encounter for supervision of other normal pregnancy, unspecified trimester (principal)
CPT/HCPCS: 36415

== ENCOUNTER 2023-12-24 10:46 | Outpatient (OUT) | payer OTHER, SELFPAY ==
--- OUTSIDE RECORDS SUMMARY | 2023-12-24 11:02 | XMS_ITS ---
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 ITB1, ZINC #### [facility] [address] [place] [address] #### B12, FOL, CMP, PREALB, ANDREZ, CBCD #### [facility] [address] [place] [address] COMPREHENSIVE METABOLIC PANE [facility] 12-14-2022 Albumin [Mass/Vol] 3.8 g/dL Normal 3.4-5.0 [facility] Comment on above: Order Comment: FAX R ESULTS TO DR FLORENCE: [phone] Performed By: #### V ITB1, ZINC #### [facility] [address] [place] [address] #### B12, FOL, CMP, PREALB, ANDREZ, CBCD #### [facility] [address] [place] [address] ALP [Catalytic activity/Vol] 74 U/L Normal 46-116 [facility] Comment on above: Order Comment: FAX R ESULTS TO DR FLORENCE: [phone] Performed By: #### V ITB1, ZINC #### [facility] [address] [place] [address] #### B12, FOL, CMP, PREALB, ANDREZ, CBCD #### [facility] [address] [place] [address] ALT [Catalytic activity/Vol] 34 U/L Normal 10-49 [facility] Comment on above: Order Comment: FAX R ESULTS TO DR FLORENCE: [phone] Performed By: #### V ITB1, ZINC #### [facility] [address] [place] [address] #### B12, FOL, CMP, PREALB, ANDREZ, CBCD #### [facility] [address] [place] [address] AST [Catalytic activity/Vol] 19 U/L Normal 0-34 [facility] Comment on above: Order Comment: FAX R ESULTS TO DR FLORENCE: [phone] Performed By: #### V ITB1, ZINC #### [facility] [address] [place] [address] #### B12, FOL, CMP, PREALB, ANDREZ, CBCD #### [facility] [address] [place] [address] Bilirubin [Mass/Vol] 0.3 mg/dL Normal 0.3-1.2 [facility] Comment on above: Order Comment: FAX R ESULTS TO DR FLORENCE: [phone] Performed By: #### V ITB1, ZINC #### [facility] [address] [place] [address] #### B12, FOL, CMP, PREALB, ANDREZ, CBCD #### [facility] [address] [place] [address] CALCIUM,TOTAL 9.0 md/dL Normal 8.7-10.4 [facility] Comment on above: Order Comment: FAX R ESULTS TO DR FLORENCE: [phone] Performed By: #### V ITB1, ZINC #### [facility] [address] [place] [address] #### B12, FOL, CMP, PREALB, ANDREZ, CBCD #### [facility] [address] [place] [address] Chloride [Moles/Vol] 109 mmol/L High 98-107 [facility] Comment on above: Order Comment: FAX R ESULTS TO DR FLORENCE: [phone] Performed By: #### V ITB1, ZINC #### [facility] [address] [place] [address] #### B12, FOL, CMP, PREALB, ANDREZ, CBCD #### [facility] [address] [place] [address] CO2 [Moles/Vol] 27 mmol/L Normal 20-31 [facility] Comment on above: Order Comment: FAX R ESULTS TO DR FLORENCE: [phone] Performed By: #### V ITB1, ZINC #### [facility] [address] [place] [address] #### B12, FOL, CMP, PREALB, ANDREZ, CBCD #### [facility] [address] [place] [address] Creatinine [Mass/Vol] 0.62 mg/dL Normal 0.55-1.02 [facility] Comment on above: Order Comment: FAX R ESULTS TO DR FLORENCE: [phone] Performed By: #### V ITB1, ZINC #### [facility] [address] [place] [address] #### B12, FOL, CMP, PREALB, ANDREZ, CBCD #### [facility] [address] [place] [address] EST GLOM FILT > 60 Normal [facility] Comment on above: Order Comment: FAX R ESULTS TO DR FLORENCE: [phone] Result Comment: Result Units: mL/min/1.73 m2 Note: [...] #### V ITB1, ZINC #### [facility] [address] [place] [address] #### B12, FOL, CMP, PREALB, ANDREZ, CBCD #### [facility] [address] [place] [address]33[address] ESTIMATED GLOM FILT RATE > 60 Normal [facility] Comment on above: Order Comment: FAMaximo R ESULTS TO DR FLORENCE: [phone] Performed By: #### V ITB1, ZINC #### [facility] [address] [place] [address] #### B12, FOL, CMP, PREALB, ANDREZ, CBCD #### [facility] [address] [place] [address] Glucose [Mass/Vol] 103 mg/dL High 65-99 [facility] Comment on above: Order Comment: FAX R ESULTS TO DR FLORENCE: [phone] Performed By: #### V ITB1, ZINC #### [facility] [address] [place] [address] #### B12, FOL, CMP, PREALB, ANDREZ, CBCD #### [facility] [address] [place] [address]69[address] Potassium [Moles/Vol] 3.6 mmol/L Normal 3.4-5.1 [facility] Comment on above: Order Comment: FAX R ESULTS TO DR FLORENCE: [phone] Performed By: #### V ITB1, ZINC #### [facility] [address] [place] [address] #### B12, FOL, CMP, PREALB, ANDREZ, CBCD #### [facility] [address] [place] [address] Protein [Mass/Vol] 6.5 g/dL Normal 6.0-8.0 [facility] Comment on above: Order Comment: JENNIFER COLIN TO DR FLORENCE: [phone] Performed By: #### V ITB1, ZINC #### [facility] [address] [place] [address] #### B12, FOL, CMP, PREALB, ANDREZ, CBCD #### [facility] [address] [place] [address] 12937 Sodium [Moles/Vol] 138 mmol/L Normal 136-145 [facility] Comment on above: Order Comment: JENNIFER COLIN TO DR FLORENCE: [phone] Performed By: #### V ITB1, ZINC #### [facility] [address] [place] [address] #### B12, FOL, CMP, PREALB, ANDREZ, CBCD #### [facility] [address] [place] [address] 20636 Urea nitrogen [Mass/Vol] 8 mg/dL Low 9-23 [facility] Comment on above: Order Comment: JENNIFER COLIN TO DR FLORENCE: [phone] Performed By: #### V ITB1, ZINC #### [facility] [address] [place] [address] #### B12, FOL, CMP, PREALB, ANDREZ, CBCD #### [facility] [address] [place] [address] FERRITINon 12-14-2022 Ferritin [Mass/Vol] 40.9 ng/mL Normal 7.3-307.3 [facility] Comment on above: Order Comment: JENNIFER COLIN TO DR FLORENCE: [phone] Performed By: #### V ITB1, ZINC #### [facility] [address] [place] [address] #### B12, FOL, CMP, PREALB, ANDREZ, CBCD #### [facility] [address] [place] [address] FOLIC ACIDon 12-14-2022 FOLIC ACID 16.04 ng/mL Normal 5.38-24.00 [facility] Comment on above: Order Comment: FAMaximo COLIN TO DR FLORENCE: [phone] Result Comment: 0.35 - 3.7 ng/mL - Folate Deficiency 3.38 - 5.38 ng/mL - Indeterminate > 5.38 ng/mL - Normal Performed By: #### V ITB1, ZINC #### [facility] [address] [place] [address] #### B12, FOL, CMP, PREALB, ANDREZ, CBCD #### [facility] [address] [place] [address] PREALBUMINon 12-14-2022 Prealbumin [Mass/Vol] 16 mg/dL Normal 10-40 [facility] Comment on above: Order Comment: FAMaximo COLIN TO DR FLORENCE: [phone] Performed By: #### V ITB1, ZINC #### [facility] [address] [place] [address] #### B12, FOL, CMP, PREALB, ANDREZ, CBCD #### [facility] [address] [place] [address] VITAMIN B12on 12-14-2022 Cobalamin (Vitamin B12) [Mass/Vol] 261 pg/mL Normal 211-911 [facility] Comment on above: Order Comment: FAMaximo COLIN TO DR FLORENCE: [phone] Result Comment: 247 - 911 pg/mL - Normal, Vitamin B12 Sufficiency Performed By: #### V ITB1, ZINC #### [facility] [address] [place] [address] #### B12, FOL, CMP, PREALB, ANDREZ, CBCD #### [facility] [address] [place] [address] 39554 CBC with DIFFERENTIALon 06-0 Basophils (Bld) [#/Vol] 0.0 10*3/uL Normal 0.0-0.1 [facility] Comment on above: Performed By: #### V ITB1, ZINC #### [facility] [address] [place] [address] #### B12, FOL, CMP, PREALB, ANDREZ, CBCD #### [facility] [address] [place] [address] 18958 Basophils/100 WBC (Bld) 0.6 % Normal 0.0-1.0 [facility] Comment on above: Performed By: #### V ITB1, ZINC #### [facility] [address] [place] [address] #### B12, FOL, CMP, PREALB, ANDREZ, CBCD #### [facility] [address] [place] [address]658 Eosinophils (Bld) [#/Vol] 0.4 10*3/uL Normal 0.0-0.4 [facility] Comment on above: Performed By: #### V ITB1, ZINC #### [facility] [address] [place] [address] #### B12, FOL, CMP, PREALB, ANDREZ, CBCD #### [facility] [address] [place] [address] 76623 Eosinophils/100 WBC (Bld) 6.0 % High 1.0-4.0 [facility] Comment on above: Performed By: #### V ITB1, ZINC #### [facility] [address] [place] [address] #### B12, FOL, CMP, PREALB, ANRDEZ, CBCD #### [facility] [address] [place] [address]277 Hematocrit (Bld) [Volume fraction] 42.2 % Normal 37.0-47.0 [facility] Comment on above: Performed By: #### V ITB1, ZINC #### [facility] [address] [place] [address] #### B12, FOL, CMP, PREALB, ANDREZ, CBCD #### [facility] [address] [place] [address] 51699 Hemoglobin (Bld) [Mass/Vol] 14.0 g/dL Normal 12.0-16.0 [facility] Comment on above: Performed By: #### V ITB1, ZINC #### [facility] [address] [place] [address] #### B12, FOL, CMP, PREALB, ANDREZ, CBCD #### [facility] [address] [place] [address] 32356 IG # 0.0 10*3/uL Normal 0.0-0.1 [facility] Comment on above: Performed By: #### V ITB1, ZINC #### [facility] [address] [place] [address] #### B12, FOL, CMP, PREALB, ANDREZ, CBCD #### [facility] [address] [place] [address] 97697 IG % 0.2 % Normal 0.0-1.0 [facility] Comment on above: Performed By: #### V ITB1, ZINC #### [facility] [address] [place] [address] #### B12, FOL, CMP, PREALB, ANDREZ, CBCD #### [facility] [address] [place] [address] 54119 Lymphocytes (Bld) [#/Vol] 3.4 10*3/uL Normal 1.3-4.4 [facility] Comment on above: Performed By: #### V ITB1, ZINC #### [facility] [address] [place] [address] #### B12, FOL, CMP, PREALB, ANDREZ, CBCD #### [facility] [address] [place] [address] 38440 Lymphocytes/100 WBC (Bld) 53.6 % High 27.0-41.0 [facility] Comment on above: Performed By: #### V ITB1, ZINC #### [facility] [address] [place] [address] #### B12, FOL, CMP, PREALB, ANDREZ, CBCD #### [facility] [address] [place] [address] 77157 MCV (RBC) [Entitic vol] 88.5 fL Normal 81.0-99.0 [facility] Comment on above: Performed By: #### V ITB1, ZINC #### [facility] [address] [place] [address] #### B12, FOL, CMP, PREALB, ANDREZ, CBCD #### [facility] [address] [place] [address] MEAN CORPUSCULAR HGB 29.4 pg Normal 27.0-31.0 [facility] Comment on above: Performed By: #### V ITB1, ZINC #### [facility] [address] [place] [address] #### B12, FOL, CMP, PREALB, ANDREZ, CBCD #### [facility] [address] [place] [address] MEAN CORPUSCULAR HGB CONC 33.2 g/dl Normal 33.0-37.0 [facility] Comment on above: Performed By: #### V ITB1, ZINC #### [facility] [address] [place] [address] #### B12, FOL, CMP, PREALB, ANDREZ, CBCD #### [facility] [address] [place] [address] 46101 Monocytes (Bld) [#/Vol] 0.3 10*3/uL Normal 0.1-1.0 [facility] Comment on above: Performed By: #### V ITB1, ZINC #### [facility] [address] [place] [address] #### B12, FOL, CMP, PREALB, ANDREZ, CBCD #### [facility] [address] [place] [address] Monocytes/100 WBC (Bld) 4.8 % Normal 3.0-9.0 [facility] Comment on above: Performed By: #### V ITB1, ZINC #### [facility] [address] [place] [address] #### B12, FOL, CMP, PREALB, ANDREZ, CBCD #### [facility] [address] [place] [address] 61370 Neutrophils (Bld) [#/Vol] 2.2 10*3/uL Low 2.3-7.9 [facility] Comment on above: Performed By: #### V ITB1, ZINC #### [facility] [address] [place] [address] #### B12, FOL, CMP, PREALB, ANDREZ, CBCD #### [facility] [address] [place] [address] 83931 Neutrophils/100 WBC (Bld) 34.8 % Low 47.0-73.0 [facility] Comment on above: Performed By: #### V ITB1, ZINC #### [facility] [address] [place] [address] #### B12, FOL, CMP, PREALB, ANDREZ, CBCD #### [facility] [address] [place] [address] 92549 NUCLEATED RED BLOOD CELL 0.0 10*3/uL Normal 0.0-0.0 [facility] Comment on above: Performed By: #### V ITB1, ZINC #### [facility] [address] [place] [address] #### B12, FOL, CMP, PREALB, ANDREZ, CBCD #### [facility] [address] [place] [address] 36114 NUCLEATED RED BLOOD CELL 0.0 % Normal 0.0-0.0 [facility] Comment on above: Performed By: #### V ITB1, ZINC #### [facility] [address] [place] [address] #### B12, FOL, CMP, PREALB, ANDREZ, CBCD #### [facility] [address] [place] [address] 35899 PLATELET COUNT AUTOMATED 265 10*3/uL Normal 130-400 [facility] Comment on above: Performed By: #### V ITB1, ZINC #### [facility] [address] [place] [address] #### B12, FOL, CMP, PREALB, ANDREZ, CBCD #### [facility] [address] [place] [address] 02801 Platelet mean volume (Bld) [Entitic vol] 11.3 fL Normal 9.6-12.3 [facility] Comment on above: Performed By: #### V ITB1, ZINC #### [facility] [address] [place] [address] #### B12, FOL, CMP, PREALB, ANDREZ, CBCD #### [facility] [address] [place] [address] 55897 RBC (Bld) [#/Vol] 4.77 10*6/uL Normal 4.10-5.10 [facility] Comment on above: Performed By: #### V ITB1, ZINC #### [facility] [address] [place] [address] #### B12, FOL, CMP, PREALB, ANDREZ, CBCD #### [facility] [address] [place] [address] 99461 RED CELL DISTRI WIDTH 13.9 % Normal 0-14.5 [facility] Comment on above: Performed By: #### V ITB1, ZINC #### [facility] [address] [place] [address] #### B12, FOL, CMP, PREALB, ANDREZ, CBCD #### [facility] [address] [place] [address] 48168 WBC (Bld) [#/Vol] 6.3 10*3/uL Normal 4.8-10.8 [facility] Comment on above: Performed By: #### V ITB1, ZINC #### [facility] [address] [place] [address] #### B12, FOL, CMP, PREALB, ANDREZ, CBCD #### [facility] [address] [place] [address] COMPREHENSIVE METABOLIC PANE Evan 12-03-2022 Albumin [Mass/Vol] 4.0 g/dL Normal 3.4-5.0 [facility] Comment on above: Performed By: #### V ITB1, ZINC #### [facility] [address] [place] [address] #### B12, FOL, CMP, PREALB, ANDREZ, CBCD #### [facility] [address] [place] [address] 85711 ALP [Catalytic activity/Vol] 69 U/L Normal 46-116 [facility] Comment on above: Performed By: #### V ITB1, ZINC #### [facility] [address] [place] [address] #### B12, FOL, CMP, PREALB, ANDREZ, CBCD #### [facility] [address] [place] [address] 04797 ALT [Catalytic activity/Vol] 79 U/L High 10-49 [facility] Comment on above: Performed By: #### V ITB1, ZINC #### [facility] [address] [place] [address] #### B12, FOL, CMP, PREALB, ANDREZ, CBCD #### [facility] [address] [place] [address] 23581 AST [Catalytic activity/Vol] 31 U/L Normal 0-34 [facility] Comment on above: Performed By: #### V ITB1, ZINC #### [facility] [address] [place] [address] #### B12, FOL, CMP, PREALB, ANDREZ, CBCD #### [facility] [address] [place] [address] 22516 Bilirubin [Mass/Vol] 0.4 mg/dL Normal 0.3-1.2 [facility] Comment on above: Performed By: #### V ITB1, ZINC #### [facility] [address] [place] [address] #### B12, FOL, CMP, PREALB, ANDREZ, CBCD #### [facility] [address] [place] [address] 95131 CALCIUM,TOTAL 9.1 md/dL Normal 8.7-10.4 [facility] Comment on above: Performed By: #### V ITB1, ZINC #### [facility] [address] [place] [address] #### B12, FOL, CMP, PREALB, ANDREZ, CBCD #### [facility] [address] [place] [address] 85502 Chloride [Moles/Vol] 109 mmol/L High 98-107 [facility] Comment on above: Performed By: #### V ITB1, ZINC #### [facility] [address] [place] [address] #### B12, FOL, CMP, PREALB, ANDREZ, CBCD #### [facility] [address] [place] [address] 64348 CO2 [Moles/Vol] 25 mmol/L Normal 20-31 [facility] Comment on above: Performed By: #### V ITB1, ZINC #### [facility] [address] [place] [address] #### B12, FOL, CMP, PREALB, ANDREZ, CBCD #### [facility] [address] [place] [address] 50088 Creatinine [Mass/Vol] 0.56 mg/dL Normal 0.55-1.02 [facility] Comment on above: Performed By: #### V ITB1, ZINC #### [facility] [address] [place] [address] #### B12, FOL, CMP, PREALB, ANDREZ, CBCD #### [facility] [address] [place] [address] 48787 EST GLOM FILT > 60 Normal [facility] Comment on above: Result Comment: Result Units: [...] #### V ITB1, ZINC #### [facility] [address] [place] [address] #### B12, FOL, CMP, PREALB, ANDREZ, CBCD #### [facility] [address] [place] [address] ESTIMATED GLOM FILT RATE > 60 Normal [facility] Comment on above: Performed By: #### V ITB1, ZINC #### [facility] [address] [place] [address] #### B12, FOL, CMP, PREALB, ANDREZ, CBCD #### [facility] [address] [place] [address] 55110 Glucose [Mass/Vol] 103 mg/dL High 65-99 [facility] Comment on above: Performed By: #### V ITB1, ZINC #### [facility] [address] [place] [address] #### B12, FOL, CMP, PREALB, ANDREZ, CBCD #### [facility] [address] [place] [address] Potassium [Moles/Vol] 3.8 mmol/L Normal 3.4-5.1 [facility] Comment on above: Performed By: #### V ITB1, ZINC #### [facility] [address] [place] [address] #### B12, FOL, CMP, PREALB, ANDREZ, CBCD #### [facility] [address] [place] [address] Protein [Mass/Vol] 6.7 g/dL Normal 6.0-8.0 [facility] Comment on above: Performed By: #### V ITB1, ZINC #### [facility] [address] [place] [address] #### B12, FOL, CMP, PREALB, ANDREZ, CBCD #### [facility] [address] [place] [address] Sodium [Moles/Vol] 141 mmol/L Normal 136-145 [facility] Comment on above: Performed By: #### V ITB1, ZINC #### [facility] [address] [place] [address] #### B12, FOL, CMP, PREALB, ANDREZ, CBCD #### [facility] [address] [place] [address] 19808 Urea nitrogen [Mass/Vol] 10 mg/dL Normal 9-23 [facility] Comment on above: Performed By: #### V ITB1, ZINC #### [facility] [address] [place] [address] #### B12, FOL, CMP, PREALB, ANDREZ, CBCD #### [facility] [address] [place] [address] 11746 [id number] 12-03-2022 ESTIMATED AVERAGE GLUCOSE 94 Normal [facility] Comment on above: Performed By: #### V ITB1, ZINC #### [facility] [address] [place] [address] #### B12, FOL, CMP, PREALB, ANDREZ, CBCD #### [facility] [address] [place] [address] 66809 HbA1c (Bld) [Mass fraction] 4.9 % Normal 4.8-5.6 [facility] Comment on above: Result Comment: Standarization of method based on National Glycohemoglobin Standardization Program (NGSP). HEMOGLOBIN A1c(%) DEGREE of GLUCOSE CONTROL 5.7-6.4% Prediabetes range >6.4% Diagnosis of Diabetes <7% Glycemic control for adults with Diabetes Performed By: #### V ITB1, ZINC #### [facility] [address] [place] [address] #### B12, FOL, CMP, PREALB, ANDREZ, CBCD #### [facility] [address] [place] [address] 49635 INSULINon 12-03-2022 INSULIN 14.2 mU/L Normal 2.6-37.6 [facility] Comment on above: Performed By: #### V ITB1, ZINC #### [facility] [address] [place] [address] #### B12, FOL, CMP, PREALB, ANDREZ, CBCD #### [facility] [address] [place] [address] 10538 LIPID PANEL CHOLESTEROL/HDLo n 12-03-2022 Cholesterol [Mass/Vol] 113 mg/dL Normal <200 [facility] Comment on above: Performed By: #### V ITB1, ZINC #### [facility] [address] [place] [address] #### B12, FOL, CMP, PREALB, ANDREZ, CBCD #### [facility] [address] [place] [address] 07986 Cholesterol in HDL [Mass/Vol] 26 mg/dL Low 40-60 [facility] Comment on above: Performed By: #### V ITB1, ZINC #### [facility] [address] [place] [address] #### B12, FOL, CMP, PREALB, ANDREZ, CBCD #### [facility] [address] [place] [address] Cholesterol in LDL [Mass/Vol] 52 mg/dL Normal 9-159 [facility] Comment on above: Performed By: #### V ITB1, ZINC #### [facility] [address] [place] [address] #### B12, FOL, CMP, PREALB, ANDREZ, CBCD #### [facility] [address] [place] [address] Cholesterol.total/Chol esterol in HDL [Mass ratio] 4.3 {ratio} Normal [facility] Comment on above: Performed By: #### V ITB1, ZINC #### [facility] [address] [place] [address] #### B12, FOL, CMP, PREALB, ANDREZ, CBCD #### [facility] [address] [place] [address] 68723 Triglyceride [Mass/Vol] 176 mg/dL High <150 [facility] Comment on above: Result Comment: TRIGLYCERIDE RISK ASSESSMENT: 150-199 mg/dl BORDERLINE HIGH >200 mg//dl HIGH . Performed By: #### V ITB1, ZINC #### [facility] [address] [place] [address] #### B12, FOL, CMP, PREALB, ANDREZ, CBCD #### [facility] [address] [place] [address] 20930 VLDL CHOLESTEROL 35 mg/dL Normal 6-40 [facility] Comment on above: Performed By: #### V ITB1, ZINC #### [facility] [address] [place] [address] #### B12, FOL, CMP, PREALB, ANDREZ, CBCD #### [facility] [address] [place] [address] 25488 CBC with DIFFERENTIALon 05-0 9-2022 Basophils (Bld) [#/Vol] 0.0 10*3/uL Normal 0.0-0.1 [facility] Comment on above: Order Comment: FAX R ESULTS TO DR FLORENCE: [phone] Performed By: #### V ITB1, ZINC #### [facility] [address] [place] [address] #### B12, FOL, CMP, PREALB, ANDREZ, CBCD #### [facility] [address] [place] [address] Basophils/100 WBC (Bld) 0.3 % Normal 0.0-1.0 [facility] Comment on above: Order Comment: FAX R ESULTS TO DR FLORENCE: [phone] Performed By: #### V ITB1, ZINC #### [facility] [address] [place] [address] #### B12, FOL, CMP, PREALB, ANDREZ, CBCD #### [facility] [address] [place] [address] Eosinophils (Bld) [#/Vol] 0.2 10*3/uL Normal 0.0-0.4 [facility] Comment on above: Order Comment: FAX R ESULTS TO DR FLORENCE: [phone] Performed By: #### V ITB1, ZINC #### [facility] [address] [place] [address] #### B12, FOL, CMP, PREALB, ANDREZ, CBCD #### [facility] [address] [place] [address] 59118 Eosinophils/100 WBC (Bld) 3.2 % Normal 1.0-4.0 [facility] Comment on above: Order Comment: FAX R ESULTS TO DR FLORENCE: [phone] Performed By: #### V ITB1, ZINC #### [facility] [address] [place] [address] #### B12, FOL, CMP, PREALB, ANDREZ, CBCD #### [facility] [address] [place] [address] Hematocrit (Bld) [Volume fraction] 43.8 % Normal 37.0-47.0 [facility] Comment on above: Order Comment: FAX R ESULTS TO DR FLORENCE: [phone] Performed By: #### V ITB1, ZINC #### [facility] [address] [place] [address] #### B12, FOL, CMP, PREALB, ANDREZ, CBCD #### [facility] [address] [place] [address] Hemoglobin (Bld) [Mass/Vol] 14.3 g/dL Normal 12.0-16.0 [facility] Comment on above: Order Comment: FAX R ESULTS TO DR FLORENCE: [phone] Performed By: #### V ITB1, ZINC #### [facility] [address] [place] [address] #### B12, FOL, CMP, PREALB, ANDREZ, CBCD #### [facility] [address] [place] [address] IG # 0.1 10*3/uL Normal 0.0-0.1 [facility] Comment on above: Order Comment: FAX R ESULTS TO DR FLORENCE: [phone] Performed By: #### V ITB1, ZINC #### [facility] [address] [place] [address] #### B12, FOL, CMP, PREALB, ANDREZ, CBCD #### [facility] [address] [place] [address] IG % 0.7 % Normal 0.0-1.0 [facility] Comment on above: Order Comment: FAX R ESULTS TO DR FLORENCE: [phone] Performed By: #### V ITB1, ZINC #### [facility] [address] [place] [address] #### B12, FOL, CMP, PREALB, ANDREZ, CBCD #### [facility] [address] [place] [address] Lymphocytes (Bld) [#/Vol] 3.5 10*3/uL Normal 1.3-4.4 [facility] Comment on above: Order Comment: FAX R ESULTS TO DR FLORENCE: [phone] Performed By: #### V ITB1, ZINC #### [facility] [address] [place] [address] #### B12, FOL, CMP, PREALB, ANDREZ, CBCD #### [facility] [address] [place] [address] Lymphocytes/100 WBC (Bld) 46.7 % High 27.0-41.0 [facility] Comment on above: Order Comment: FAX R ESULTS TO DR FLORENCE: [phone] Performed By: #### V ITB1, ZINC #### [facility] [address] [place] [address] #### B12, FOL, CMP, PREALB, ANDREZ, CBCD #### [facility] [address] [place] [address] MCV (RBC) [Entitic vol] 88.1 fL Normal 81.0-99.0 [facility] Comment on above: Order Comment: FAX R ESULTS TO DR FLORENCE: [phone] Performed By: #### V ITB1, ZINC #### [facility] [address] [place] [address] #### B12, FOL, CMP, PREALB, ANDREZ, CBCD #### [facility] [address] [place] [address] MEAN CORPUSCULAR HGB 28.8 pg Normal 27.0-31.0 [facility] Comment on above: Order Comment: FAX R ESULTS TO DR FLORENCE: [phone] Performed By: #### V ITB1, ZINC #### [facility] [address] [place] [address] #### B12, FOL, CMP, PREALB, ANDREZ, CBCD #### [facility] [address] [place] [address] MEAN CORPUSCULAR HGB CONC 32.6 g/dl Low 33.0-37.0 [facility] Comment on above: Order Comment: FAX R ESULTS TO DR FLORENCE: [phone] Performed By: #### V ITB1, ZINC #### [facility] [address] [place] [address] #### B12, FOL, CMP, PREALB, ANDREZ, CBCD #### [facility] [address] [place] [address] Monocytes (Bld) [#/Vol] 0.3 10*3/uL Normal 0.1-1.0 [facility] Comment on above: Order Comment: FAX R ESULTS TO DR FLORENCE: [phone] Performed By: #### V ITB1, ZINC #### [facility] [address] [place] [address] #### B12, FOL, CMP, PREALB, ANDREZ, CBCD #### [facility] [address] [place] [address] Monocytes/100 WBC (Bld) 4.3 % Normal 3.0-9.0 [facility] Comment on above: Order Comment: FAX R ESULTS TO DR FLORENCE: [phone] Performed By: #### V ITB1, ZINC #### [facility] [address] [place] [address] #### B12, FOL, CMP, PREALB, ANDREZ, CBCD #### [facility] [address] [place] [address] Neutrophils (Bld) [#/Vol] 3.4 10*3/uL Normal 2.3-7.9 [facility] Comment on above: Order Comment: FAX R ESULTS TO DR FLORENCE: [phone] Performed By: #### V ITB1, ZINC #### [facility] [address] [place] [address] #### B12, FOL, CMP, PREALB, ANDREZ, CBCD #### [facility] [address] [place] [address] 41929 Neutrophils/100 WBC (Bld) 44.8 % Low 47.0-73.0 [facility] Comment on above: Order Comment: FAX R ESULTS TO DR FLORENCE: Performed By: #### V ITB1, ZINC #### [facility] [address] [place] [address] #### B12, FOL, CMP, PREALB, ANDREZ, CBCD #### [facility] [address] [place] [address] NUCLEATED RED BLOOD CELL 0.0 10*3/uL Normal 0.0-0.0 [facility] Comment on above: Order Comment: FAX R ESULTS TO DR FLORENCE: Performed By: #### V ITB1, ZINC #### [facility] [address] #### B12, FOL, CMP, PREALB, ANDREZ, CBCD #### [facility] [address] [place] [address] NUCLEATED RED BLOOD CELL 0.0 % Normal 0.0-0.0 [facility] Comment on above: Order Comment: FAX R ESULTS TO DR FLORENCE: Performed By: #### V ITB1, ZINC #### [facility] [address] [place] [address] #### B12, FOL, CMP, PREALB, ANDREZ, CBCD #### [facility] [address] [place] [address] 45024 PLATELET COUNT AUTOMATED 347 10*3/uL Normal 130-400 [facility] Comment on above: Order Comment: FAX R ESULTS TO DR FLORENCE: Performed By: #### V ITB1, ZINC #### [facility] [address] [place] [address] #### B12, FOL, CMP, PREALB, ANDREZ, CBCD #### [facility] [address] [place] [address]68[address] Platelet mean volume (Bld) [Entitic vol] 9.9 fL Normal 9.6-12.3 [facility] Comment on above: Order Comment: FAX R ESULTS TO DR FLORENCE: Performed By: #### V ITB1, ZINC #### [facility] [address] [place] [address] #### B12, FOL, CMP, PREALB, ANDREZ, CBCD #### [facility] [address] [place] [address] RBC (Bld) [#/Vol] 4.97 10*6/uL Normal 4.10-5.10 [facility] Comment on above: Order Comment: FAX R ESULTS TO DR FLORENCE: [phone] Performed By: #### V ITB1, ZINC #### [facility] [address] [place] [address] #### B12, FOL, CMP, PREALB, ANDREZ, CBCD #### [facility] [address] [place] [address] RED CELL DISTRI WIDTH 13.2 % Normal 0-14.5 [facility] Comment on above: Order Comment: FAX R ESULTS TO DR FLORENCE: [phone] Performed By: #### V ITB1, ZINC #### [facility] [address] [place] [address] #### B12, FOL, CMP, PREALB, ANDREZ, CBCD #### [facility] [address] [place] [address] WBC (Bld) [#/Vol] 7.5 10*3/uL Normal 4.8-10.8 [facility] Comment on above: Order Comment: FAX R STIVENULTS TO DR FLORENCE: [phone] Performed By: #### V ITB1, ZINC #### [facility] [address] [place] [address] #### B12, FOL, CMP, PREALB, ANDREZ, CBCD #### [facility] [address] [place] [address] COMPREHENSIVE METABOLIC PANE Evan 11-06-2022 Albumin [Mass/Vol] 4.2 g/dL Normal 3.4-5.0 [facility] Comment on above: Order Comment: JENNIFER R CRISTI TO DR FLORENCE: Performed By: #### V ITB1, ZINC #### [facility] [address] [place] [address] #### B12, FOL, CMP, PREALB, ANDREZ, CBCD #### [facility] [address] [place] [address] ALP [Catalytic activity/Vol] 59 U/L Normal 46-116 [facility] Comment on above: Order Comment: FAX R ESULTS TO DR FLORENCE: Performed By: #### V ITB1, ZINC #### [facility] [address] [place] [address] #### B12, FOL, CMP, PREALB, ANDREZ, CBCD #### [facility] [address] [place] [address] ALT [Catalytic activity/Vol] 30 U/L Normal 10-49 [facility] Comment on above: Order Comment: FAX R ESULTS TO DR FLORENCE: Performed By: #### V ITB1, ZINC #### [facility] [address] [place] [address] #### B12, FOL, CMP, PREALB, ANDREZ, CBCD #### [facility] [address] [place] [address] AST [Catalytic activity/Vol] 20 U/L Normal 0-34 [facility] Comment on above: Order Comment: FAX R ESULTS TO DR FLORENCE: Performed By: #### V ITB1, ZINC #### [facility] [address] [place] [address] #### B12, FOL, CMP, PREALB, ANDREZ, CBCD #### [facility] [address] [place] [address]28 Bilirubin [Mass/Vol] 0.5 mg/dL Normal 0.3-1.2 [facility] Comment on above: Order Comment: FAX R ESULTS TO DR FLORENCE: Performed By: #### V ITB1, ZINC #### [facility] [address] [place] [address] #### B12, FOL, CMP, PREALB, ANDREZ, CBCD #### [facility] [address] [place] [address] CALCIUM,TOTAL 9.3 md/dL Normal 8.7-10.4 [facility] Comment on above: Order Comment: FAX R ESULTS TO DR FLORENCE: [phone] Performed By: #### V ITB1, ZINC #### [facility] [address] [place] [address] #### B12, FOL, CMP, PREALB, ANDREZ, CBCD #### [facility] [address] [place] [address] Chloride [Moles/Vol] 103 mmol/L Normal 98-107 [facility] Comment on above: Order Comment: FAMaximo R ESULTS TO DR FLORENCE: [phone] Performed By: #### V ITB1, ZINC #### [facility] [address] [place] [address] #### B12, FOL, CMP, PREALB, ANDREZ, CBCD #### [facility] [address] [place] [address] CO2 [Moles/Vol] 23 mmol/L Normal 20-31 [facility] Comment on above: Order Comment: FAX R ESULTS TO DR FLORENCE: [phone] Performed By: #### V ITB1, ZINC #### [facility] [address] [place] [address] #### B12, FOL, CMP, PREALB, ANDREZ, CBCD #### [facility] [address] [place] [address] Creatinine [Mass/Vol] 0.58 mg/dL Normal 0.55-1.02 [facility] Comment on above: Order Comment: PEDROX R ESULTS TO DR FLORENCE: [phone] Performed By: #### V ITB1, ZINC #### [facility] [address] [place] [address] #### B12, FOL, CMP, PREALB, ANDREZ, CBCD #### [facility] [address] [place] [address] EST GLOM FILT > 60 Normal [facility] Comment on above: Order Comment: FAX R ESULTS TO DR FLORENCE: [phone] Result Comment: Result Units: mL/min/1.73 m2 Note: [...] #### V ITB1, ZINC #### [facility] [address] [place] [address] #### B12, FOL, CMP, PREALB, ANDREZ, CBCD #### [facility] [address] [place] [address] ESTIMATED GLOM FILT RATE > 60 Normal [facility] Comment on above: Order Comment: FAX R ESULTS TO DR FLORENCE: [phone] Performed By: #### V ITB1, ZINC #### [facility] [address] [place] [address] #### B12, FOL, CMP, PREALB, ANDREZ, CBCD #### [facility] [address] [place] [address] Glucose [Mass/Vol] 92 mg/dL Normal 65-99 [facility] Comment on above: Order Comment: FAX R ESULTS TO DR FLORENCE: [phone] Performed By: #### V ITB1, ZINC #### [facility] [address] [place] [address] #### B12, FOL, CMP, PREALB, ANDREZ, CBCD #### [facility] [address] [place] [address] Potassium [Moles/Vol] 3.9 mmol/L Normal 3.4-5.1 [facility] Comment on above: Order Comment: FAX R ESULTS TO DR FLORENCE: [phone] Performed By: #### V ITB1, ZINC #### [facility] [address] [place] [address] #### B12, FOL, CMP, PREALB, ANDREZ, CBCD #### [facility] [address] [place] [address] Protein [Mass/Vol] 7.3 g/dL Normal 6.0-8.0 [facility] Comment on above: Order Comment: FAX R ESULTS TO DR FLORENCE: [phone] Performed By: #### V ITB1, ZINC #### [facility] [address] [place] [address] #### B12, FOL, CMP, PREALB, ANDREZ, CBCD #### [facility] [address] [place] [address] Sodium [Moles/Vol] 137 mmol/L Normal 136-145 [facility] Comment on above: Order Comment: FAX R ESULTS TO DR FLORENCE: [phone] Performed By: #### V ITB1, ZINC #### [facility] [address] [place] [address] #### B12, FOL, CMP, PREALB, ANDREZ, CBCD #### [facility] [address] [place] [address] Urea nitrogen [Mass/Vol] 12 mg/dL Normal 9-23 [facility] Comment on above: Order Comment: FAX R ESULTS TO DR FLORENCE: [phone] Performed By: #### V ITB1, ZINC #### [facility] [address] [place] [address] #### B12, FOL, CMP, PREALB, ANDREZ, CBCD #### [facility] [address] [place] [address] Basic Metabolic Panelon 05 Anion gap [Moles/Vol] 11 mmol/L Normal 7-[address] [facility] Calcium [Mass/Vol] 8.9 mg/dL Normal 8.6-10.2 [facility] Chloride [Moles/Vol] 104 mmol/L Normal 98-107 [facility] CO2 [Moles/Vol] 25 mmol/L Normal 22-29 [facility] Creatinine [Mass/Vol] 0.6 mg/dL Normal 0.5-1.[address] [facility] GFR Calculated >60 Normal >=60 [facility] Comment on above: Result Comment: Dion [...] secretion. Glucose [Mass/Vol] 117 mg/dL High 74-99 [facility] Potassium [Moles/Vol] 4.3 mmol/L Normal 3.5-5.[address] [facility] Sodium [Moles/Vol] 140 mmol/L Normal 132-146 [facility] Urea nitrogen [Mass/Vol] 13 mg/dL Normal 6-20 [facility] Basic metabolic 2000 panelon 10-30-2022 Anion gap [Moles/Vol] 11 mmol/L 7 - 16 mmol/L [facility] Calcium [Mass/Vol] 8.9 mg/dL 8.6 - 10. 2 mg/dL [facility] Chloride [Moles/Vol] 104 mmol/L 98 - 10 7 mmol/L [facility] CO2 [Moles/Vol] 25 mmol/L 22 - 29 mmol/L [facility] Creatinine [Mass/Vol] 0.6 mg/dL 0.5 - 1.0 mg/dL [facility] GFR/1.73 sq M.predicted among non-blacks MDRD (S/P/Bld) [Vol rate/Area] mL/min/1.73 60 - PINF mL/min/1.73 [facility] Comment on above: Pediatric calculator link https://www.kidney.org/professionals/kdoqi/gfr_calculatorped [...] 117 mg/dL High 74 - 99 mg/dL [facility] Potassium [Moles/Vol] 4.3 mmol/L 3.5 - 5.0 mmol/L [facility] Sodium [Moles/Vol] 140 mmol/L 132 - 146 mmol/L [facility] Urea nitrogen [Mass/Vol] 13 mg/dL 6 - 20 mg/dL [facility] CBC With Platelet and Differ entialon 10-30-2022 Abs Imm Granulocytes 0.07 E9/L Normal [facility] Absolute Basophils 0.01 E9/L Normal 0.00-0.20 [facility] Absolute Eosinophils 0.00 E9/L Low 0.05-0.50 [facility] Absolute Lymphocytes 1.89 E9/L Normal 1.50-4.00 [facility] Monocytes 0.73 E9/L Normal 0.10-0.95 [facility] Absolute Neutrophils 9.02 E9/L High 1.80-7.30 [facility] Basophils/100 WBC (Bld) 0.1 % Normal 0.0-2.0 [facility] Eosinophils/100 WBC (Bld) 0.0 % Normal 0.0-6.0 [facility] Hematocrit (Bld) [Volume fraction] 38.2 % Normal 34.0-48.0 [facility] Hemoglobin (Bld) [Mass/Vol] 12.2 g/dL Normal 11.5-15.5 [facility] Imm Granulocytes 0.6 % Normal 0.0-5.0 [facility] Lymphocytes/100 WBC (Bld) 16.1 % Low 20.0-42.0 [facility] MCH (RBC) [Entitic mass] 29.2 pg Normal 26.0-35.0 [facility] MCHC 31.9 % Low 32.0-34.5 [facility] MCV (RBC) [Entitic vol] 91.4 fL Normal 80.0-99.9 [facility] Monocytes/100 WBC (Bld) 6.2 % Normal 2.0-12.0 [facility] Neutrophils/100 WBC (Bld) 77.0 % Normal 43.0-80.0 [facility] Platelet Count 285 E9/L Normal 130-450 [facility] Platelet mean volume (Bld) [Entitic vol] 10.4 fL Normal 7.0-12.0 [facility] RBC 4.18 E12/L Normal 3.50-5.50 [facility] RDW 13.2 fL Normal 11.5-15.0 [facility] WBC 11.7 E9/L High 4.5-11.5 [facility] CBC with Auto Differentialon 10-30-2022 Basophils (Bld) [#/Vol] 0.01 10*3/uL [facility] Basophils/100 WBC (Bld) 0.1 % 0.0 - 2.0 % [facility] Eosinophils (Bld) [#/Vol] 0.00 10*3/uL Low [facility] Eosinophils/100 WBC (Bld) 0 % 0.0 - 6.0 % [facility] Erythrocyte distribution width (RBC) [Ratio] 13.2 fL 11.5 - 15.0 fL [facility] Hematocrit (Bld) [Volume fraction] 38.2 % 34.0 - 48.0 % [facility] Hemoglobin (Bld) [Mass/Vol] 12.2 g/dL 11.5 - 15.5 g/dL [facility] Immature granulocytes (Bld) [#/Vol] 0.07 10*3/uL E9/L [facility] Immature granulocytes/100 WBC (Bld) 0.6 % 0.0 - 5.0 % [facility] Lymphocytes (Bld) [#/Vol] 1.89 10*3/uL [facility] Lymphocytes/100 WBC (Bld) 16.1 % Low 20.0 - 42.0 % [facility] MCH (RBC) [Entitic mass] 29.2 pg 26.0 - 35.0 pg [facility] MCHC (RBC) [Mass/Vol] 31.9 % Low 32.0 - 34.5 % [facility] MCV (RBC) [Entitic vol] 91.4 fL 80.0 - 99.9 fL [facility] Monocytes (Bld) [#/Vol] 0.73 10*3/uL [facility] Monocytes/100 WBC (Bld) 6.2 % 2.0 - 12.0 % [facility] Neutrophils (Bld) [#/Vol] 9.02 10*3/uL High [facility] Platelet mean volume (Bld) [Entitic vol] 10.4 fL 7.0 - 12.0 fL [facility] Platelets (Bld) [#/Vol] 285 10*3/uL [facility] RBC (Bld) [#/Vol] 4.18 10*6/uL [facility] Segmented neutrophils/100 WBC (Bld) 77.0 % 43.0 - 80.0 % [facility] WBC (Bld) [#/Vol] 11.7 10*3/uL High [facility] Hepatic Function Panelon Albumin [Mass/Vol] 3.7 g/dL 3.5 - 5.2 g/dL [facility] ALP [Catalytic activity/Vol] 55 U/L 35 - 104 U/L [facility] ALT [Catalytic activity/Vol] 19 U/L 0 - 32 U/L [facility] AST [Catalytic activity/Vol] 14 U/L 0 - 31 U/L [facility] Bilirubin [Mass/Vol] 0.5 mg/dL 0.0 - 1 .2 mg/dL [facility] Bilirubin.direct [Mass/Vol] mg/dL 0.0 - 0.3 mg/dL [facility] Bilirubin.indirect [Mass/Vol] see below 0.0 - 1.0 mg/dL [facility] Comment on above: Indirect Bilirubin c annot be calculated since Total Bilirubin and/or Direct Bilirubin is below measurable range. Protein [Mass/Vol] 6.3 g/dL Low 6.4 - 8.3 g/dL [facility] Hgb A1Con 10-30-2022 HbA1c (Bld) [Mass fraction] 4.8 % Normal 4.0-5.6 [facility] [facility] Lipid Panelon 10-30-2022 Cholesterol [Mass/Vol] 99 mg/dL 0 - 1 99 mg/dL [facility] Cholesterol [Mass/Vol] 99 mg/dL Normal 0-199 [facility] Cholesterol in HDL [Mass/Vol] 34 mg/dL 40 - PINF mg/dL [facility] Cholesterol in HDL [Mass/Vol] 34 mg/dL Normal >40 [facility] Cholesterol in LDL [Mass/Vol] 43 mg/dL 0 - 99 mg/dL [facility] Cholesterol in LDL [Mass/Vol] 43 mg/dL Normal 0-99 [facility] Cholesterol in VLDL [Mass/Vol] 22 mg/dL [facility] Triglyceride [Mass/Vol] 108 mg/dL 0 - 149 mg/dL [facility] Triglyceride [Mass/Vol] 108 mg/dL Normal 0-149 [facility] VLDL Cholesterol (Calculated) 22 mg/dL Normal [facility] Liver Panelon 10-30-2022 Albumin [Mass/Vol] 3.7 g/dL Normal 3.5-5.2 [facility] ALP [Catalytic activity/Vol] 55 U/L Normal 35-104 [facility] ALT [Catalytic activity/Vol] 19 U/L Normal 0-32 [facility] AST [Catalytic activity/Vol] 14 U/L Normal 0-31 [facility] Bilirubin [Mass/Vol] 0.5 mg/dL Normal 0.0-1.2 [facility] Bilirubin Indirect see below Normal 0.0-1.0 [facility] Comment on above: Result Comment: Grace rect Bilirubin cannot be calculated since Total Bilirubin and/or Direct Bilirubin is below measurable range. Bilirubin.indirect [Mass/Vol] mg/dL Normal 0.0-0.3 [facility] Protein [Mass/Vol] 6.3 g/dL Low 6.4-8.3 [facility] METER GLUCOSEon 10-30-2022 Glucose [Mass/Vol] 111 mg/dL High 74-99 [facility] Magnesiumon 10-30-2022 Magnesium [Mass/Vol] 1.7 mg/dL 1.6 - 2 .6 mg/dL [facility] Magnesium [Mass/Vol] 1.7 mg/dL Normal 1.6-2.6 [facility] No Panel Informationon 10-30 Interpretation and review of laboratory results Abnormal [facility] POCT Glucoseon 10-30-2022 Glucose [Mass/Vol] 111 mg/dL High 74 - 99 mg/dL [facility] Phosphoruson 10-30-2022 Phosphate [Mass/Vol] 4.0 mg/dL 2.5 - 4 .5 mg/dL [facility] Phosphate [Mass/Vol] 4.0 mg/dL Normal 2.5-4.5 [facility] T4, Freeon 10-30-2022 Free T4 [Mass/Vol] 1.32 ng/dL 0.93 - 1. 70 ng/dL [facility] TSHon 10-30-2022 TSH [Mass/Vol] 0.828 [facility] TSH w/out Reflexon TSH w/out Reflex 0.828 uIU/mL Normal 0.270-4.200 [facility] Thyroxine Freeon 10-30-2022 Thyroxine Free 1.32 ng/dL Normal 0.93-1.70 [facility] Comprehensive Metabolic Pane evan 10-29-2022 Potassium see note Critically abnormal 3.5-5.0 [facility] Comment on above: Result Comment: Lisa cui order. Made no charge to patient for testing Corrected result; previously reported as 4.3 on 10/24/2022 at 19:57 by [facility] Hemoglobin A1con 10-29-2022 HbA1c (Bld) [Mass fraction] 5.1 % 4.0 - 5.6 % [employer] Hgb A1Con 10-29-2022 HbA1c (Bld) [Mass fraction] 5.1 % Normal 4.0-5.6 [facility] METER GLUCOSEon 10-29-2022 Glucose [Mass/Vol] 101 mg/dL High 74-99 [facility] Glucose [Mass/Vol] 104 mg/dL High 74-99 [facility] Glucose [Mass/Vol] 146 mg/dL High 74-99 [facility] Glucose [Mass/Vol] 128 mg/dL High 74-99 [facility] No Panel Informationon 10-29 [employer] POC Urine Qualon 0 10-29-2022 Beta HCG ( test) Ql (U) Negative Negative [employer] Work Phone: Beta HCG ( test) Ql (U) [phone] [employer] Work Phone: Negative QC Pass/Fail Pass [employer] Work Phone: Positive QC Pass/Fail Pass [employer] Work Phone: POCT Glucoseon 10-29-2022 Glucose [Mass/Vol] 101 mg/dL High 74 - 99 mg/dL [employer] Glucose [Mass/Vol] 104 mg/dL High 74 - 99 mg/dL [employer] Glucose [Mass/Vol] 146 mg/dL High 74 - 99 mg/dL [employer] Glucose [Mass/Vol] 128 mg/dL High 74 - 99 mg/dL [facility] [facility] Interpretation and review of laboratory results Abnormal [facility] [facility] Interpretation and review of laboratory results Abnormal [facility] [facility] Interpretation and review of laboratory results Abnormal [facility] Interpretation and review of laboratory results Abnormal [employer] [facility] Surgical Specimenon 10-30-19 23 Surgical Specimen [address] [place] [address] [place], [place] [address] [place], [place] [address] FINAL SURGICAL PATHOLOGY REPORT NAME: BATOOL KINGSLEY Date of 10/29/2022 Collection: Medical Record [id number] Date of 10/29/2022 Number: Receipt: Age: 22 Y Sex: F Date 10/31/2022 12:02 Reported: Date Of : 2000 Financial [id number] Admitting DERIC FLORENCE Number: Physician: Patient DIS [id number] Ordering DERIC FLORENCE Location: Physician: Accession Number: [id number] Additional Physicians:KAELA ARELLANO Diagnosis: Small intestine, limited resection: No diagnostic abnormality. SHANTA CAUSEY M.D. (Electronic Signature) Specimen Submitted: SMALL INTESTINE, RESECTION NOT TUMOR Clinical Notes: Operative Procedure: Gastric bypass Nuno-en-Y laparoscopic Preoperative Dx: Morbid obesity Microscopic Evaluation: Was performed. Gross Description: Submitted in one part in formalin labeled Batool Kingsley, segment small bowel is an oval shaped portion of hanson haq mucosal lined fibrous tissue, international representative or portions of small bowel which measures 4.1 x 2.5 x 1.7 cm. Much of the exterior is covered by hanson haq, soft to finely folded mucosa. Numerous, small metallic surgical [place] are present throughout the exterior. Discrete mucosal lesions are not present. Sectioning is unremarkable. [employer] Layout Person sections are submitted. Block label A1. (JORGE L:TAURUS) CODES: [id number]; Department of Pathology Page 1 of 1 Normal [facility] CBC (Hemogram)on 10-24-2022 Erythrocyte distribution width (RBC) [Ratio] 13.7 fL 11.5 - 15.0 fL [facility]ENTERIndaBox[facility] Hematocrit (Bld) [Volume fraction] 43.9 % 34.0 - 48.0 % [facility] Hemoglobin (Bld) [Mass/Vol] 14.3 g/dL 11.5 - 15.5 g/dL [facility] MCH (RBC) [Entitic mass] 28.9 pg 26.0 - 35.0 pg [facility] MCHC (RBC) [Mass/Vol] 32.6 % 32.0 - 34.5 % [facility] MCV (RBC) [Entitic vol] 88.9 fL 80.0 - 99.9 fL [facility] Platelet mean volume (Bld) [Entitic vol] 10.6 fL 7.0 - 12.0 fL [facility] Platelets (Bld) [#/Vol] 321 10*3/uL [facility] RBC (Bld) [#/Vol] 4.94 10*6/uL [facility] WBC (Bld) [#/Vol] 7.0 10*3/uL [facility] CBC With Platelet No Differe ntialon 10-24-2022 Hematocrit (Bld) [Volume fraction] 43.9 % Normal 34.0-48.0 [facility] Hemoglobin (Bld) [Mass/Vol] 14.3 g/dL Normal 11.5-15.5 [facility] MCH (RBC) [Entitic mass] 28.9 pg Normal 26.0-35.0 [facility] MCHC 32.6 % Normal 32.0-34.5 [facility] MCV (RBC) [Entitic vol] 88.9 fL Normal 80.0-99.9 [facility] Platelet Count 321 E9/L Normal 130-450 [facility] Platelet mean volume (Bld) [Entitic vol] 10.6 fL Normal 7.0-12.0 [facility] RBC 4.94 E12/L Normal 3.50-5.50 [facility] RDW 13.7 fL Normal 11.5-15.0 [facility] WBC 7.0 E9/L Normal 4.5-11.5 [facility] Comprehensive Metabolic Pane l reflex Mgon 10-24-2022 Albumin [Mass/Vol] 4.6 g/dL Normal 3.5-5.2 [facility] ALP [Catalytic activity/Vol] 69 U/L Normal 35-104 [facility] ALT [Catalytic activity/Vol] 27 U/L Normal 0-32 [facility] Anion gap [Moles/Vol] 12 mmol/L Normal 7-[address] [facility] AST [Catalytic activity/Vol] 16 U/L Normal 0-31 [facility] Bilirubin [Mass/Vol] 0.4 mg/dL Normal 0.0-1.2 [facility] Calcium [Mass/Vol] 9.3 mg/dL Normal 8.6-10.2 [facility] Chloride [Moles/Vol] 104 mmol/L Normal 98-107 [facility] CO2 [Moles/Vol] 24 mmol/L Normal 22-29 [facility] Creatinine [Mass/Vol] 0.6 mg/dL Normal 0.5-1.[address] [facility] GFR Calculated >60 Normal >=60 [facility] Comment on above: Result Comment: Dion silvermanc calculator link [email or web address]://www.[email or web address].org/professionals/kdoqi/gfr_[email or web address] Effective Apr 02, 2022 [...] secretion. Glucose [Mass/Vol] 79 mg/dL Normal 74-99 [facility] Magnesium [Moles/Vol] 4.3 mmol/L Normal 3.5-5.[address] [facility] Protein [Mass/Vol] 7.6 g/dL Normal 6.4-8.3 [facility] Sodium [Moles/Vol] 140 mmol/L Normal 132-146 [facility] Urea nitrogen [Mass/Vol] 13 mg/dL Normal 6-20 [facility] Comprehensive metabolic 2000 panelon 10-24-2022 Albumin [Mass/Vol] 4.6 g/dL 3.5 - 5.2 g/dL [facility] ALP [Catalytic activity/Vol] 69 U/L 35 - 104 U/L [facility] ALT [Catalytic activity/Vol] 27 U/L 0 - 32 U/L [facility] Anion gap [Moles/Vol] 12 mmol/L 7 - 16 mmol/L [facility] AST [Catalytic activity/Vol] 16 U/L 0 - 31 U/L [facility] Bilirubin [Mass/Vol] 0.4 mg/dL 0.0 - 1 .2 mg/dL [facility] Calcium [Mass/Vol] 9.3 mg/dL 8.6 - 10. 2 mg/dL [facility] Chloride [Moles/Vol] 104 mmol/L 98 - 10 7 mmol/L [facility] CO2 [Moles/Vol] 24 mmol/L 22 - 29 mmol/L [facility]ENTERZemanta [facility] Creatinine [Mass/Vol] 0.6 mg/dL 0.5 - 1.0 mg/dL [facility] GFR/1.73 sq M.predicted among non-blacks MDRD (S/P/Bld) [Vol rate/Area] mL/min/1.73 60 - PINF mL/min/1.73 [facility] CENTERZemanta [facility] Comment on above: Pediatric calculator link [...] [Mass/Vol] 79 mg/dL 74 - 99 mg/dL [facility] Potassium [Moles/Vol] 4.3 mmol/L 3.5 - 5.0 mmol/L [facility] Potassium [Moles/Vol] 4.3 mmol/L 3.5 - 5.0 mmol/L [facility]ENTERIndaBoxK[facility] Protein [Mass/Vol] 7.6 g/dL 6.4 - 8.3 g/dL [facility]ENTERIndaBoxK[facility] Sodium [Moles/Vol] 140 mmol/L 132 - 146 mmol/L [facility]ENTERZ[facility] Urea nitrogen [Mass/Vol] 13 mg/dL 6 - 20 mg/dL [facility] No Panel Informationon 10-24 [facility] ACT PARTIAL THROMBO TIMEon 0 10-04-2022 ACT PARTIAL THROMBO TIME 30.4 SECONDS Normal 20.0-32.1 [facility] Comment on above: Result Comment: APTT THERAPEUTIC RANGE = 43.6 TO 68.4 SECONDS Performed By: #### V ITB1, ZINC #### [facility] [address] [place] [address] #### B12, FOL, CMP, PREALB, ANDREZ, CBCD #### [facility] [address] [place] [address] CBC with DIFFERENTIALon 04-0 Basophils (Bld) [#/Vol] 0.0 10*3/uL Normal 0.0-0.1 [facility] Comment on above: Performed By: #### V ITB1, ZINC #### [facility] [address] [place] [address] #### B12, FOL, CMP, PREALB, ANDREZ, CBCD #### [facility] [address] [place] [address] Basophils/100 WBC (Bld) 0.5 % Normal 0.0-1.0 [facility] Comment on above: Performed By: #### V ITB1, ZINC #### [facility] [address] [place] [address] #### B12, FOL, CMP, PREALB, ANDREZ, CBCD #### [facility] [address] [place] [address] Eosinophils (Bld) [#/Vol] 0.3 10*3/uL Normal 0.0-0.4 [facility] Comment on above: Performed By: #### V ITB1, ZINC #### [facility] [address] [place] [address] #### B12, FOL, CMP, PREALB, ANDREZ, CBCD #### [facility] [address] [place] [address] Eosinophils/100 WBC (Bld) 4.1 % High 1.0-4.0 [facility] Comment on above: Performed By: #### V ITB1, ZINC #### [facility] [address] [place] [address] #### B12, FOL, CMP, PREALB, ANDREZ, CBCD #### [facility] [address] [place] [address] Hematocrit (Bld) [Volume fraction] 40.6 % Normal 37.0-47.0 [facility] Comment on above: Performed By: #### V ITB1, ZINC #### [facility] [address] [place] [address] #### B12, FOL, CMP, PREALB, ANDREZ, CBCD #### [facility] [address] [place] [address] Hemoglobin (Bld) [Mass/Vol] 13.2 g/dL Normal 12.0-16.0 [facility] Comment on above: Performed By: #### V ITB1, ZINC #### [facility] [address] [place] [address] #### B12, FOL, CMP, PREALB, ANDREZ, CBCD #### [facility] [address] [place] [address] IG # 0.0 10*3/uL Normal 0.0-0.1 [facility] Comment on above: Performed By: #### V ITB1, ZINC #### [facility] [address] [place] [address] #### B12, FOL, CMP, PREALB, ANDREZ, CBCD #### [facility] [address] [place] [address] 24254 IG % 0.5 % Normal 0.0-1.0 [facility] Comment on above: Performed By: #### V ITB1, ZINC #### [facility] [address] [place] [address] #### B12, FOL, CMP, PREALB, ANDREZ, CBCD #### [facility] [address] [place] [address] Lymphocytes (Bld) [#/Vol] 3.2 10*3/uL Normal 1.3-4.4 [facility] Comment on above: Performed By: #### V ITB1, ZINC #### [facility] [address] [place] [address] #### B12, FOL, CMP, PREALB, ANDREZ, CBCD #### [facility] [address] [place] [address] Lymphocytes/100 WBC (Bld) 41.8 % High 27.0-41.0 [facility] Comment on above: Performed By: #### V ITB1, ZINC #### [facility] [address] [place] [address] #### B12, FOL, CMP, PREALB, ANDREZ, CBCD #### [facility] [address] [place] [address] MCV (RBC) [Entitic vol] 88.6 fL Normal 81.0-99.0 [facility] Comment on above: Performed By: #### V ITB1, ZINC #### [facility] [address] #### B12, FOL, CMP, PREALB, ANDREZ, CBCD #### [facility] [address] [place] [address] MEAN CORPUSCULAR HGB 28.8 pg Normal 27.0-31.0 [facility] Comment on above: Performed By: #### V ITB1, ZINC #### [facility] [address] #### B12, FOL, CMP, PREALB, ANDREZ, CBCD #### [facility] [address] [place] [address] 61183 MEAN CORPUSCULAR HGB CONC 32.5 g/dl Low 33.0-37.0 [facility] Comment on above: Performed By: #### V ITB1, ZINC #### [facility] [address] [place] [address] #### B12, FOL, CMP, PREALB, ANDREZ, CBCD #### [facility] [address] [place] [address] 20011 Monocytes (Bld) [#/Vol] 0.4 10*3/uL Normal 0.1-1.0 [facility] Comment on above: Performed By: #### V ITB1, ZINC #### [facility] [address] [place] [address] #### B12, FOL, CMP, PREALB, ANDREZ, CBCD #### [facility] [address] [place] [address]876 Monocytes/100 WBC (Bld) 5.1 % Normal 3.0-9.0 [facility] Comment on above: Performed By: #### V ITB1, ZINC #### [facility] [address] [place] [address] #### B12, FOL, CMP, PREALB, ANDREZ, CBCD #### [facility] [address] [place] [address] 31686 Neutrophils (Bld) [#/Vol] 3.7 10*3/uL Normal 2.3-7.9 [facility] Comment on above: Performed By: #### V ITB1, ZINC #### [facility] [address] [place] [address] #### B12, FOL, CMP, PREALB, ANDREZ, CBCD #### [facility] [address] [place] [address] 70391 Neutrophils/100 WBC (Bld) 48.0 % Normal 47.0-73.0 [facility] Comment on above: Performed By: #### V ITB1, ZINC #### [facility] [address] [place] [address] #### B12, FOL, CMP, PREALB, ANDREZ, CBCD #### [facility] [address] [place] [address] 64392 NUCLEATED RED BLOOD CELL 0.0 10*3/uL Normal 0.0-0.0 [facility] Comment on above: Performed By: #### V ITB1, ZINC #### [facility] [address] [place] [address] #### B12, FOL, CMP, PREALB, ANDREZ, CBCD #### [facility] [address] [place] [address] 99692 NUCLEATED RED BLOOD CELL 0.0 % Normal 0.0-0.0 [facility] Comment on above: Performed By: #### V ITB1, ZINC #### [facility] [address] [place] [address] #### B12, FOL, CMP, PREALB, ANDREZ, CBCD #### [facility] [address] [place] [address] 16896 PLATELET COUNT AUTOMATED 300 10*3/uL Normal 130-400 [facility] Comment on above: Performed By: #### V ITB1, ZINC #### [facility] [address] [place] [address] #### B12, FOL, CMP, PREALB, ANDREZ, CBCD #### [facility] [address] [place] [address] Platelet mean volume (Bld) [Entitic vol] 10.7 fL Normal 9.6-12.3 [facility] Comment on above: Performed By: #### V ITB1, ZINC #### [facility] [address] [place] [address] #### B12, FOL, CMP, PREALB, ANDREZ, CBCD #### [facility] [address] [place] [address] 97574 RBC (Bld) [#/Vol] 4.58 10*6/uL Normal 4.10-5.10 [facility] Comment on above: Performed By: #### V ITB1, ZINC #### [facility] [address] [place] [address] #### B12, FOL, CMP, PREALB, ANDREZ, CBCD #### [facility] [address] [place] [address] 76922 RED CELL DISTRI WIDTH 13.3 % Normal 0-14.5 [facility] Comment on above: Performed By: #### V ITB1, ZINC #### [facility] [address] [place] [address] #### B12, FOL, CMP, PREALB, ANDREZ, CBCD #### [facility] [address] [place] [address] WBC (Bld) [#/Vol] 7.6 10*3/uL Normal 4.8-10.8 [facility] Comment on above: Performed By: #### V ITB1, ZINC #### [facility] [address] [place] [address] #### B12, FOL, CMP, PREALB, ANDREZ, CBCD #### [facility] [address] [place] [address] COMPREHENSIVE METABOLIC PANE Evan 10-04-2022 Albumin [Mass/Vol] 3.8 g/dL Normal 3.4-5.0 [facility] Comment on above: Performed By: #### V ITB1, ZINC #### [facility] [address] [place] [address] #### B12, FOL, CMP, PREALB, ANDREZ, CBCD #### [facility] [address] [place] [address] ALP [Catalytic activity/Vol] 63 U/L Normal 46-116 [facility] Comment on above: Performed By: #### V ITB1, ZINC #### [facility] [address] [place] [address] #### B12, FOL, CMP, PREALB, ANDREZ, CBCD #### [facility] [address] [place] [address] 18693 ALT [Catalytic activity/Vol] 18 U/L Normal 10-49 [facility] Comment on above: Performed By: #### V ITB1, ZINC #### [facility] [address] [place] [address] #### B12, FOL, CMP, PREALB, ANDREZ, CBCD #### [facility] [address] [place] [address] 91946 AST [Catalytic activity/Vol] 15 U/L Normal 0-34 [facility] Comment on above: Performed By: #### V ITB1, ZINC #### [facility] [address] [place] [address] #### B12, FOL, CMP, PREALB, ANDREZ, CBCD #### [facility] [address] [place] [address] Bilirubin [Mass/Vol] 0.3 mg/dL Normal 0.3-1.2 [facility] Comment on above: Performed By: #### V ITB1, ZINC #### [facility] [address] [place] [address] #### B12, FOL, CMP, PREALB, ANDREZ, CBCD #### [facility] [address] [place] [address] CALCIUM,TOTAL 9.2 md/dL Normal 8.7-10.4 [facility] Comment on above: Performed By: #### V ITB1, ZINC #### [facility] [address] [place] [address] #### B12, FOL, CMP, PREALB, ANDREZ, CBCD #### [facility] [address] [place] [address] 58184 Chloride [Moles/Vol] 105 mmol/L Normal 98-107 [facility] Comment on above: Performed By: #### V ITB1, ZINC #### [facility] [address] [place] [address] #### B12, FOL, CMP, PREALB, ANDREZ, CBCD #### [facility] [address] [place] [address] 53264 CO2 [Moles/Vol] 27 mmol/L Normal 20-31 [facility] Comment on above: Performed By: #### V ITB1, ZINC #### [facility] [address] [place] [address] #### B12, FOL, CMP, PREALB, ANDREZ, CBCD #### [facility] [address] [place] [address] 55381 Creatinine [Mass/Vol] 0.61 mg/dL Normal 0.55-1.02 [facility] Comment on above: Performed By: #### V ITB1, ZINC #### [facility] [address] [place] [address] #### B12, FOL, CMP, PREALB, ANDREZ, CBCD #### [facility] [address] [place] [address] EST GLOM FILT > 60 Normal [facility] Comment on above: Result Comment: Result Units: [...] #### V ITB1, ZINC #### [facility] [address] [place] [address] #### B12, FOL, CMP, PREALB, ANDREZ, CBCD #### [facility] [address] [place] [address] 83870 ESTIMATED GLOM FILT RATE > 60 Normal [facility] Comment on above: Performed By: #### V ITB1, ZINC #### [facility] [address] [place] [address] #### B12, FOL, CMP, PREALB, ANDREZ, CBCD #### [facility] [address] [place] [address] 94351 Glucose [Mass/Vol] 87 mg/dL Normal 65-99 [facility] Comment on above: Performed By: #### V ITB1, ZINC #### [facility] [address] [place] [address] #### B12, FOL, CMP, PREALB, ANDREZ, CBCD #### [facility] [address] [place] [address] 08608 Potassium [Moles/Vol] 4.2 mmol/L Normal 3.4-5.1 [facility] Comment on above: Performed By: #### V ITB1, ZINC #### [facility] [address] [place] [address] #### B12, FOL, CMP, PREALB, ANDREZ, CBCD #### [facility] [address] [place] [address] 04374 Protein [Mass/Vol] 6.9 g/dL Normal 6.0-8.0 [facility] Comment on above: Performed By: #### V ITB1, ZINC #### [facility] [address] [place] [address] #### B12, FOL, CMP, PREALB, ANDREZ, CBCD #### [facility] [address] [place] [address] Sodium [Moles/Vol] 139 mmol/L Normal 136-145 [facility] Comment on above: Performed By: #### V ITB1, ZINC #### [facility] [address] [place] [address] #### B12, FOL, CMP, PREALB, ANDREZ, CBCD #### [facility] [address] [place] [address] 34449 Urea nitrogen [Mass/Vol] 14 mg/dL Normal 9-23 [facility] Comment on above: Performed By: #### V ITB1, ZINC #### [facility] [address] [place] [address] #### B12, FOL, CMP, PREALB, ANDREZ, CBCD #### [facility] [address] [place] [address] 63154 [id number] 10-04-2022 ESTIMATED AVERAGE GLUCOSE 100 Normal [facility] Comment on above: Performed By: #### V ITB1, ZINC #### [facility] [address] [place] [address] #### B12, FOL, CMP, PREALB, ANDREZ, CBCD #### [facility] [address] [place] [address] 36111 HbA1c (Bld) [Mass fraction] 5.1 % Normal 4.8-5.6 [facility] Comment on above: Result Comment: Standarization of method based on National Glycohemoglobin Standardization Program (NGSP). HEMOGLOBIN A1c(%) DEGREE of GLUCOSE CONTROL 5.7-6.4% Prediabetes range >6.4% Diagnosis of Diabetes <7% Glycemic control for adults with Diabetes Performed By: #### V ITB1, ZINC #### [facility] [address] [place] [address] #### B12, FOL, CMP, PREALB, ANDREZ, CBCD #### [facility] [address] [place] [address] 12280 LIPID PANEL CHOLESTEROL/HDLo n 10-04-2022 Cholesterol [Mass/Vol] 122 mg/dL Normal <200 [facility] Comment on above: Performed By: #### V ITB1, ZINC #### [facility] [address] [place] [address] #### B12, FOL, CMP, PREALB, ANDREZ, CBCD #### [facility] [address] [place] [address] 58261 Cholesterol in HDL [Mass/Vol] 28 mg/dL Low 40-60 [facility] Comment on above: Performed By: #### V ITB1, ZINC #### [facility] [address] [place] [address] #### B12, FOL, CMP, PREALB, ANDREZ, CBCD #### [facility] [address] [place] [address] 45094 Cholesterol in LDL [Mass/Vol] 55 mg/dL Normal 9-159 [facility] Comment on above: Performed By: #### V ITB1, ZINC #### [facility] [address] [place] [address] #### B12, FOL, CMP, PREALB, ANDREZ, CBCD #### [facility] [address] [place] [address] Cholesterol.total/Chol esterol in HDL [Mass ratio] 4.4 {ratio} Normal [facility] Comment on above: Performed By: #### V ITB1, ZINC #### [facility] [address] [place] [address] #### B12, FOL, CMP, PREALB, ANDREZ, CBCD #### [facility] [address] [place] [address] 34620 Triglyceride [Mass/Vol] 196 mg/dL High <150 [facility] Comment on above: Result Comment: TRIGLYCERIDE RISK ASSESSMENT: 150-199 mg/dl BORDERLINE HIGH >200 mg//dl HIGH . Performed By: #### V ITB1, ZINC #### [facility] [address] [place] [address] #### B12, FOL, CMP, PREALB, ANDREZ, CBCD #### [facility] [address] [place] [address] 55196 VLDL CHOLESTEROL 39 mg/dL Normal 6-40 [facility] Comment on above: Performed By: #### V ITB1, ZINC #### [facility] [address] [place] [address] #### B12, FOL, CMP, PREALB, ANDREZ, CBCD #### [facility] [address] [place] [address] 68214 THROAT CULTUREon 08-15-2022 Throat culture THROAT CULTURE NORMAL ARIN Normal [facility] Comment on above: Performed By: #### V ITB1, ZINC #### [facility] [address] [place] [address] #### B12, FOL, CMP, PREALB, ANDREZ, CBCD #### [facility] [address] [place] [address] 96852 NOVL CORONAVIRUS NAAon 08-14 SARS-CoV-2 (COVID-19) RNA SUJATA+probe Ql (Unsp spec) Detected Abnormal Not Detected [facility] Comment on above: Result Comment: Evelyn ents who have a positive COVID-19 test result may now have treatment options. Treatment options are available for patients with mild to moderate symptoms and for hospitalized patients. Visit our website at [email or web address] for resources and information. This nucleic acid amplification test was developed and its performance characteristics determined by [employer]. Nucleic acid amplification tests include RT- PCR [...] #### V ITB1, ZINC #### [facility] [address] [place] [address] #### B12, FOL, CMP, PREALB, ANDREZ, CBCD #### [facility] [address] [place] [address] CBC with DIFFERENTIALon 08-01 Basophils (Bld) [#/Vol] 0.0 10*3/uL Normal 0.0-0.1 [facility] Comment on above: Performed By: #### V ITB1, ZINC #### [facility] [address] [place] [address] #### B12, FOL, CMP, PREALB, ANDREZ, CBCD #### [facility] [address] [place] [address] Basophils/100 WBC (Bld) 0.5 % Normal 0.0-1.0 [facility] Comment on above: Performed By: #### V ITB1, ZINC #### [facility] [address] [place] [address] #### B12, FOL, CMP, PREALB, ANDREZ, CBCD #### [facility] [address] [place] [address] 93327 Eosinophils (Bld) [#/Vol] 0.2 10*3/uL Normal 0.0-0.4 [facility] Comment on above: Performed By: #### V ITB1, ZINC #### [facility] [address] [place] [address] #### B12, FOL, CMP, PREALB, ANDREZ, CBCD #### [facility] [address] [place] [address] 44986 Eosinophils/100 WBC (Bld) 4.2 % High 1.0-4.0 [facility] Comment on above: Performed By: #### V ITB1, ZINC #### [facility] [address] [place] [address] #### B12, FOL, CMP, PREALB, ANDREZ, CBCD #### [facility] [address] [place] [address] 95149 Hematocrit (Bld) [Volume fraction] 43.8 % Normal 37.0-47.0 [facility] Comment on above: Performed By: #### V ITB1, ZINC #### [facility] [address] [place] [address] #### B12, FOL, CMP, PREALB, ANDREZ, CBCD #### [facility] [address] [place] [address] 05440 Hemoglobin (Bld) [Mass/Vol] 14.0 g/dL Normal 12.0-16.0 [facility] Comment on above: Performed By: #### V ITB1, ZINC #### [facility] [address] [place] [address] #### B12, FOL, CMP, PREALB, ANDREZ, CBCD #### [facility] [address] [place] [address] 70984 IG # 0.1 10*3/uL Normal 0.0-0.1 [facility] Comment on above: Performed By: #### V ITB1, ZINC #### [facility] [address] #### B12, FOL, CMP, PREALB, ANDREZ, CBCD #### [facility] [address] [place] [address] 65478 IG % 1.1 % High 0.0-1.0 [facility] Comment on above: Performed By: #### V ITB1, ZINC #### [facility] [address] #### B12, FOL, CMP, PREALB, ANDREZ, CBCD #### [facility] [address] [place] [address] 55914 Lymphocytes (Bld) [#/Vol] 2.9 10*3/uL Normal 1.3-4.4 [facility] Comment on above: Performed By: #### V ITB1, ZINC #### [facility] [address] [place] [address] #### B12, FOL, CMP, PREALB, ANDREZ, CBCD #### [facility] [address] [place] [address] 99660 Lymphocytes/100 WBC (Bld) 51.5 % High 27.0-41.0 [facility] Comment on above: Performed By: #### V ITB1, ZINC #### [facility] [address] [place] [address] #### B12, FOL, CMP, PREALB, ANDREZ, CBCD #### [facility] [address] [place] [address] 11666 MCV (RBC) [Entitic vol] 88.8 fL Normal 81.0-99.0 [facility] Comment on above: Performed By: #### V ITB1, ZINC #### [facility] [address] [place] [address] #### B12, FOL, CMP, PREALB, ANDREZ, CBCD #### [facility] [address] [place] [address] 01990 MEAN CORPUSCULAR HGB 28.4 pg Normal 27.0-31.0 [facility] Comment on above: Performed By: #### V ITB1, ZINC #### [facility] [address] [place] [address] #### B12, FOL, CMP, PREALB, ANDREZ, CBCD #### [facility] [address] [place] [address] 97134 MEAN CORPUSCULAR HGB CONC 32.0 g/dl Low 33.0-37.0 [facility] Comment on above: Performed By: #### V ITB1, ZINC #### [facility] [address] [place] [address] #### B12, FOL, CMP, PREALB, ANDREZ, CBCD #### [facility] [address] [place] [address] 91116 Monocytes (Bld) [#/Vol] 0.4 10*3/uL Normal 0.1-1.0 [facility] Comment on above: Performed By: #### V ITB1, ZINC #### [facility] [address] [place] [address] #### B12, FOL, CMP, PREALB, ANDREZ, CBCD #### [facility] [address] [place] [address] 36669 Monocytes/100 WBC (Bld) 7.0 % Normal 3.0-9.0 [facility] Comment on above: Performed By: #### V ITB1, ZINC #### [facility] [address] [place] [address] #### B12, FOL, CMP, PREALB, ANDREZ, CBCD #### [facility] [address] [place] [address] 87848 Neutrophils (Bld) [#/Vol] 2.0 10*3/uL Low 2.3-7.9 [facility] Comment on above: Performed By: #### V ITB1, ZINC #### [facility] [address] [place] [address] #### B12, FOL, CMP, PREALB, ANDREZ, CBCD #### [facility] [address] [place] [address] 55098 Neutrophils/100 WBC (Bld) 35.7 % Low 47.0-73.0 [facility] Comment on above: Performed By: #### V ITB1, ZINC #### [facility] [address] [place] [address] #### B12, FOL, CMP, PREALB, ANDREZ, CBCD #### [facility] [address] [place] [address] 78218 NUCLEATED RED BLOOD CELL 0.0 10*3/uL Normal 0.0-0.0 [facility] Comment on above: Performed By: #### V ITB1, ZINC #### [facility] [address] [place] [address] #### B12, FOL, CMP, PREALB, ANDREZ, CBCD #### [facility] [address] [place] [address] 67620 NUCLEATED RED BLOOD CELL 0.0 % Normal 0.0-0.0 [facility] Comment on above: Performed By: #### V ITB1, ZINC #### [facility] [address] [place] [address] #### B12, FOL, CMP, PREALB, ANDREZ, CBCD #### [facility] [address] [place] [address] 73572 PLATELET COUNT AUTOMATED 277 10*3/uL Normal 130-400 [facility] Comment on above: Performed By: #### V ITB1, ZINC #### [facility] [address] [place] [address] #### B12, FOL, CMP, PREALB, ANDREZ, CBCD #### [facility] [address] [place] [address] Platelet mean volume (Bld) [Entitic vol] 10.1 fL Normal 9.6-12.3 [facility] Comment on above: Performed By: #### V ITB1, ZINC #### [facility] [address] [place] [address] #### B12, FOL, CMP, PREALB, ANDREZ, CBCD #### [facility] [address] [place] [address] 61044 RBC (Bld) [#/Vol] 4.93 10*6/uL Normal 4.10-5.10 [facility] Comment on above: Performed By: #### V ITB1, ZINC #### [facility] [address] [place] [address] #### B12, FOL, CMP, PREALB, ANDREZ, CBCD #### [facility] [address] [place] [address] 18422 RED CELL DISTRI WIDTH 13.6 % Normal 0-14.5 [facility] Comment on above: Performed By: #### V ITB1, ZINC #### [facility] [address] [place] [address] #### B12, FOL, CMP, PREALB, ANDREZ, CBCD #### [facility] [address] [place] [address] 29439 WBC (Bld) [#/Vol] 5.7 10*3/uL Normal 4.8-10.8 [facility] Comment on above: Performed By: #### V ITB1, ZINC #### [facility] [address] [place] [address] #### B12, FOL, CMP, PREALB, ANDREZ, CBCD #### [facility] [address] [place] [address] 48864 CHEST (2 V)on 08-13-2022 CRCXR Name: BATOOL KINGSLEY Phys: GILLIAN TWISTER HAND,KAELA : 2000 Age: 22 Sex: F Acct: [id number] Loc: RAD Exam Date: 08/13/2022 Status: REG CLI Radiology No: [id number] Unit No: [id number] EXAM# TYPE/EXAM RESULT [id number] RAD/CHEST (2 V) SEE REPORT INDICATION: Stuffy [...] CC: Technologist: WIN CHRISTIE Transcribed Date/Time: 08/13/2022 (6401) 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: OSCAR Printed Date/Time: 08/13/2022 (4426) PAGE 1 Signed Report Normal [facility] COMPREHENSIVE METABOLIC PANE Evan 08-13-2022 Albumin [Mass/Vol] 3.7 g/dL Normal 3.4-5.0 [facility] Comment on above: Performed By: #### V ITB1, ZINC #### [facility] [address] [place] [address] #### B12, FOL, CMP, PREALB, ANDREZ, CBCD #### [facility] [address] [place] [address] ALP [Catalytic activity/Vol] 56 U/L Normal 46-116 [facility] Comment on above: Performed By: #### V ITB1, ZINC #### [facility] [address] [place] [address] #### B12, FOL, CMP, PREALB, ANDREZ, CBCD #### [facility] [address] [place] [address] ALT [Catalytic activity/Vol] 21 U/L Normal 10-49 [facility] Comment on above: Performed By: #### V ITB1, ZINC #### [facility] [address] [place] [address] #### B12, FOL, CMP, PREALB, ANDREZ, CBCD #### [facility] [address] [place] [address] 10103 AST [Catalytic activity/Vol] 23 U/L Normal 0-34 [facility] Comment on above: Performed By: #### V ITB1, ZINC #### [facility] [address] [place] [address] #### B12, FOL, CMP, PREALB, ANDREZ, CBCD #### [facility] [address] [place] [address] 07855 Bilirubin [Mass/Vol] mg/dL Low 0.3-1.2 [facility] Comment on above: Performed By: #### V ITB1, ZINC #### [facility] [address] [place] [address] #### B12, FOL, CMP, PREALB, ANDREZ, CBCD #### [facility] [address] [place] [address] 71092 CALCIUM,TOTAL 9.2 md/dL Normal 8.7-10.4 [facility] Comment on above: Performed By: #### V ITB1, ZINC #### [facility] [address] [place] [address] #### B12, FOL, CMP, PREALB, ANDREZ, CBCD #### [facility] [address] [place] [address] 41420 Chloride [Moles/Vol] 105 mmol/L Normal 98-107 [facility] Comment on above: Performed By: #### V ITB1, ZINC #### [facility] [address] [place] [address] #### B12, FOL, CMP, PREALB, ANDREZ, CBCD #### [facility] [address] [place] [address] 19768 CO2 [Moles/Vol] 25 mmol/L Normal 20-31 [facility] Comment on above: Performed By: #### V ITB1, ZINC #### [facility] [address] [place] [address] #### B12, FOL, CMP, PREALB, ANDREZ, CBCD #### [facility] [address] [place] [address] Creatinine [Mass/Vol] 0.53 mg/dL Low 0.55-1.02 [facility] Comment on above: Performed By: #### V ITB1, ZINC #### [facility] [address] [place] [address] #### B12, FOL, CMP, PREALB, ANDREZ, CBCD #### [facility] [address] [place] [address] EST GLOM FILT > 60 Normal [facility] Comment on above: Result Comment: Result Units: [...] #### V ITB1, ZINC #### [facility] [address] [place] [address] #### B12, FOL, CMP, PREALB, ANDREZ, CBCD #### [facility] [address] [place] [address] ESTIMATED GLOM FILT RATE > 60 Normal [facility] Comment on above: Performed By: #### V ITB1, ZINC #### [facility] [address] [place] [address] #### B12, FOL, CMP, PREALB, ANDREZ, CBCD #### [facility] [address] [place] [address] Glucose [Mass/Vol] 81 mg/dL Normal 65-99 [facility] Comment on above: Performed By: #### V ITB1, ZINC #### [facility] [address] [place] [address] #### B12, FOL, CMP, PREALB, ANDREZ, CBCD #### [facility] [address] [place] [address] 43156 Potassium [Moles/Vol] 4.5 mmol/L Normal 3.4-5.1 [facility] Comment on above: Performed By: #### V ITB1, ZINC #### [facility] [address] [place] [address] #### B12, FOL, CMP, PREALB, ANDREZ, CBCD #### [facility] [address] [place] [address] 20239 Protein [Mass/Vol] 7.0 g/dL Normal 6.0-8.0 [facility] Comment on above: Performed By: #### V ITB1, ZINC #### [facility] [address] [place] [address] #### B12, FOL, CMP, PREALB, ANDREZ, CBCD #### [facility] [address] [place] [address] 67653 Sodium [Moles/Vol] 138 mmol/L Normal 136-145 [facility] Comment on above: Performed By: #### V ITB1, ZINC #### [facility] [address] [place] [address] #### B12, FOL, CMP, PREALB, ANDREZ, CBCD #### [facility] [address] [place] [address] 30792 Urea nitrogen [Mass/Vol] 7 mg/dL Low 9-23 [facility] Comment on above: Performed By: #### V ITB1, ZINC #### [facility] [address] [place] [address] #### B12, FOL, CMP, PREALB, ANDREZ, CBCD #### [facility] [address] [place] [address] 75144 ESR (Sed Rate)on 08-13-2022 ESR (Bld) [Velocity] 20 mm/h Normal 0-20 [facility] Comment on above: Performed By: #### V ITB1, ZINC #### [facility] [address] [place] [address] #### B12, FOL, CMP, PREALB, ANDREZ, CBCD #### [facility] [address] [place] [address] 76840 CBC with DIFFERENTIALon 07-03 Basophils (Bld) [#/Vol] 0.1 10*3/uL Normal 0.0-0.1 [facility] Comment on above: Performed By: #### C MP, TSH, LIPPAN, HBA1C, CBCD, INS #### [facility] [address] [place] [address] 53832 Basophils/100 WBC (Bld) 0.7 % Normal 0.0-1.0 [facility] Comment on above: Performed By: #### C MP, TSH, LIPPAN, HBA1C, CBCD, INS #### [facility] [address] [place] [address] 30138 Eosinophils (Bld) [#/Vol] 0.3 10*3/uL Normal 0.0-0.4 [facility] Comment on above: Performed By: #### C MP, TSH, LIPPAN, HBA1C, CBCD, INS #### [facility] [address] [place] [address] 41818 Eosinophils/100 WBC (Bld) 4.3 % High 1.0-4.0 [facility] Comment on above: Performed By: #### C MP, TSH, LIPPAN, HBA1C, CBCD, INS #### [facility] [address] [place] [address] 71567 Hematocrit (Bld) [Volume fraction] 43.7 % Normal 37.0-47.0 [facility] Comment on above: Performed By: #### C MP, TSH, LIPPAN, HBA1C, CBCD, INS #### [facility] [address] [place] [address] Hemoglobin (Bld) [Mass/Vol] 13.9 g/dL Normal 12.0-16.0 [facility] Comment on above: Performed By: #### C MP, TSH, LIPPAN, HBA1C, CBCD, INS #### [facility] [address] [place] [address] IG # 0.0 10*3/uL Normal 0.0-0.1 [facility] Comment on above: Performed By: #### C MP, TSH, LIPPAN, HBA1C, CBCD, INS #### [facility] [address] [place] [address] 83630 IG % 0.4 % Normal 0.0-1.0 [facility] Comment on above: Performed By: #### C MP, TSH, LIPPAN, HBA1C, CBCD, INS #### [facility] [address] [place] [address] 64215 Lymphocytes (Bld) [#/Vol] 3.2 10*3/uL Normal 1.3-4.4 [facility] Comment on above: Performed By: #### C MP, TSH, LIPPAN, HBA1C, CBCD, INS #### [facility] [address] [place] [address] Lymphocytes/100 WBC (Bld) 42.7 % High 27.0-41.0 [facility] Comment on above: Performed By: #### C MP, TSH, LIPPAN, HBA1C, CBCD, INS #### [facility] [address] [place] [address] 81272 MCV (RBC) [Entitic vol] 90.3 fL Normal 81.0-99.0 [facility] Comment on above: Performed By: #### C MP, TSH, LIPPAN, HBA1C, CBCD, INS #### [facility] [address] [place] [address] MEAN CORPUSCULAR HGB 28.7 pg Normal 27.0-31.0 [facility] Comment on above: Performed By: #### C MP, TSH, LIPPAN, HBA1C, CBCD, INS #### [facility] [address] [place] [address] MEAN CORPUSCULAR HGB CONC 31.8 g/dl Low 33.0-37.0 [facility] Comment on above: Performed By: #### C MP, TSH, LIPPAN, HBA1C, CBCD, INS #### [facility] [address] [place] [address] 73555 Monocytes (Bld) [#/Vol] 0.4 10*3/uL Normal 0.1-1.0 [facility] Comment on above: Performed By: #### C MP, TSH, LIPPAN, HBA1C, CBCD, INS #### [facility] [address] [place] [address] 79280 Monocytes/100 WBC (Bld) 5.4 % Normal 3.0-9.0 [facility] Comment on above: Performed By: #### C MP, TSH, LIPPAN, HBA1C, CBCD, INS #### [facility] [address] [place] [address] 49734 Neutrophils (Bld) [#/Vol] 3.4 10*3/uL Normal 2.3-7.9 [facility] Comment on above: Performed By: #### C MP, TSH, LIPPAN, HBA1C, CBCD, INS #### [facility] [address] [place] [address] 88533 Neutrophils/100 WBC (Bld) 46.5 % Low 47.0-73.0 [facility] Comment on above: Performed By: #### C MP, TSH, LIPPAN, HBA1C, CBCD, INS #### [facility] [address] [place] [address] 98393 NUCLEATED RED BLOOD CELL 0.0 10*3/uL Normal 0.0-0.0 [facility] Comment on above: Performed By: #### C MP, TSH, LIPPAN, HBA1C, CBCD, INS #### [facility] [address] [place] [address] 10249 NUCLEATED RED BLOOD CELL 0.0 % Normal 0.0-0.0 [facility] Comment on above: Performed By: #### C MP, TSH, LIPPAN, HBA1C, CBCD, INS #### [facility] [address] [place] [address] 36348 PLATELET COUNT AUTOMATED 309 10*3/uL Normal 130-400 [facility] Comment on above: Performed By: #### C MP, TSH, LIPPAN, HBA1C, CBCD, INS #### [facility] [address] [place] [address] 58556 Platelet mean volume (Bld) [Entitic vol] 10.3 fL Normal 9.6-12.3 [facility] Comment on above: Performed By: #### C MP, TSH, LIPPAN, HBA1C, CBCD, INS #### [facility] [address] [place] [address] 31323 RBC (Bld) [#/Vol] 4.84 10*6/uL Normal 4.10-5.10 [facility] Comment on above: Performed By: #### C MP, TSH, LIPPAN, HBA1C, CBCD, INS #### [facility] [address] [place] [address] 61264 RED CELL DISTRI WIDTH 13.5 % Normal 0-14.5 [facility] Comment on above: Performed By: #### C MP, TSH, LIPPAN, HBA1C, CBCD, INS #### [facility] [address] [place] [address] 20916 WBC (Bld) [#/Vol] 7.4 10*3/uL Normal 4.8-10.8 [facility] Comment on above: Performed By: #### C MP, TSH, LIPPAN, HBA1C, CBCD, INS #### [facility] [address] [place] [address] COMPREHENSIVE METABOLIC PANE Evan 07-31-2022 Albumin [Mass/Vol] 3.9 g/dL Normal 3.4-5.0 [facility] Comment on above: Performed By: #### V ITB1, ZINC #### [facility] [address] [place] [address] #### B12, FOL, CMP, PREALB, ANDREZ, CBCD #### [facility] [address] [place] [address] ALP [Catalytic activity/Vol] 60 U/L Normal 46-116 [facility] Comment on above: Performed By: #### V ITB1, ZINC #### [facility] [address] [place] [address] #### B12, FOL, CMP, PREALB, ANDREZ, CBCD #### [facility] [address] [place] [address] ALT [Catalytic activity/Vol] 23 U/L Normal 10-49 [facility] Comment on above: Performed By: #### V ITB1, ZINC #### [facility] [address] [place] [address] #### B12, FOL, CMP, PREALB, ANDREZ, CBCD #### [facility] [address] [place] [address] 87647 AST [Catalytic activity/Vol] 17 U/L Normal 0-34 [facility] Comment on above: Performed By: #### V ITB1, ZINC #### [facility] [address] [place] [address] #### B12, FOL, CMP, PREALB, ANDREZ, CBCD #### [facility] [address] [place] [address]29 Bilirubin [Mass/Vol] 0.3 mg/dL Normal 0.3-1.2 [facility] Comment on above: Performed By: #### V ITB1, ZINC #### [facility] [address] [place] [address] #### B12, FOL, CMP, PREALB, ANDREZ, CBCD #### [facility] [address] [place] [address] CALCIUM,TOTAL 9.6 md/dL Normal 8.7-10.4 [facility] Comment on above: Performed By: #### V ITB1, ZINC #### [facility] [address] [place] [address] #### B12, FOL, CMP, PREALB, ANDREZ, CBCD #### [facility] [address] [place] [address] Chloride [Moles/Vol] 102 mmol/L Normal 98-107 [facility] Comment on above: Performed By: #### V ITB1, ZINC #### [facility] [address] [place] [address] #### B12, FOL, CMP, PREALB, ANDREZ, CBCD #### [facility] [address] [place] [address] CO2 [Moles/Vol] 27 mmol/L Normal 20-31 [facility] Comment on above: Performed By: #### V ITB1, ZINC #### [facility] [address] [place] [address] #### B12, FOL, CMP, PREALB, ANDREZ, CBCD #### [facility] [address] [place] [address] Creatinine [Mass/Vol] 0.58 mg/dL Normal 0.55-1.02 [facility] Comment on above: Performed By: #### V ITB1, ZINC #### [facility] [address] [place] [address] #### B12, FOL, CMP, PREALB, ANDREZ, CBCD #### [facility] [address] [place] [address] 43491 EST GLOM FILT > 60 Normal [facility] Comment on above: Result Comment: Result Units: [...] #### V ITB1, ZINC #### [facility] [address] [place] [address] #### B12, FOL, CMP, PREALB, ANDREZ, CBCD #### [facility] [address] [place] [address] 76243 ESTIMATED GLOM FILT RATE > 60 Normal [facility] Comment on above: Performed By: #### V ITB1, ZINC #### [facility] [address] [place] [address] #### B12, FOL, CMP, PREALB, ANDREZ, CBCD #### [facility] [address] [place] [address] Glucose [Mass/Vol] 73 mg/dL Normal 65-99 [facility] Comment on above: Performed By: #### V ITB1, ZINC #### [facility] [address] [place] [address] #### B12, FOL, CMP, PREALB, ANDREZ, CBCD #### [facility] [address] [place] [address]19 Potassium [Moles/Vol] 4.2 mmol/L Normal 3.4-5.1 [facility] Comment on above: Performed By: #### V ITB1, ZINC #### [facility] [address] [place] [address] #### B12, FOL, CMP, PREALB, ANDREZ, CBCD #### [facility] [address] [place] [address] 84827 Protein [Mass/Vol] 7.2 g/dL Normal 6.0-8.0 [facility] Comment on above: Performed By: #### V ITB1, ZINC #### [facility] [address] [place] [address] #### B12, FOL, CMP, PREALB, ANDREZ, CBCD #### [facility] [address] [place] [address] Sodium [Moles/Vol] 137 mmol/L Normal 136-145 [facility] Comment on above: Performed By: #### V ITB1, ZINC #### [facility] [address] [place] [address] #### B12, FOL, CMP, PREALB, ANDREZ, CBCD #### [facility] [address] [place] [address] Urea nitrogen [Mass/Vol] 11 mg/dL Normal 9-23 [facility] Comment on above: Performed By: #### V ITB1, ZINC #### [facility] [address] [place] [address] #### B12, FOL, CMP, PREALB, ANDREZ, CBCD #### [facility] [address] [place] [address] JOR7Dle 07-31-2022 ESTIMATED AVERAGE GLUCOSE 100 Normal [facility] Comment on above: Performed By: #### V ITB1, ZINC #### [facility] [address] [place] [address] #### B12, FOL, CMP, PREALB, ANDREZ, CBCD #### [facility] [address] [place] [address] HbA1c (Bld) [Mass fraction] 5.1 % Normal 4.8-5.6 [facility] Comment on above: Result Comment: Standarization of method based on National Glycohemoglobin Standardization Program (NGSP). HEMOGLOBIN A1c(%) DEGREE of GLUCOSE CONTROL 5.7-6.4% Prediabetes range >6.4% Diagnosis of Diabetes <7% Glycemic control for adults with Diabetes Performed By: #### V ITB1, ZINC #### [facility] [address] [place] [address] #### B12, FOL, CMP, PREALB, ANDREZ, CBCD #### [facility] [address] [place] [address]2907 INSULINon 07-31-2022 INSULIN 45.6 mU/L High 2.6-37.6 [facility] Comment on above: Performed By: #### V ITB1, ZINC #### [facility] [address] [place] [address] #### B12, FOL, CMP, PREALB, ANDREZ, CBCD #### [facility] [address] [place] [address] 65662 LIPID PANEL CHOLESTEROL/HDLo n 07-31-2022 Cholesterol [Mass/Vol] 170 mg/dL Normal <200 [facility] Comment on above: Performed By: #### V ITB1, ZINC #### [facility] [address] [place] [address] #### B12, FOL, CMP, PREALB, ANDREZ, CBCD #### [facility] [address] [place] [address]30 Cholesterol in HDL [Mass/Vol] 31 mg/dL Low 40-60 [facility] Comment on above: Performed By: #### V ITB1, ZINC #### [facility] [address] [place] [address] #### B12, FOL, CMP, PREALB, ANDREZ, CBCD #### [facility] [address] [place] [address] 88937 Cholesterol in LDL [Mass/Vol] 73 mg/dL Normal 9-159 [facility] Comment on above: Performed By: #### V ITB1, ZINC #### [facility] [address] [place] [address] #### B12, FOL, CMP, PREALB, ANDREZ, CBCD #### [facility] [address] [place] [address] Cholesterol.total/Chol esterol in HDL [Mass ratio] 5.5 {ratio} Normal [facility] Comment on above: Performed By: #### V ITB1, ZINC #### [facility] [address] [place] [address] #### B12, FOL, CMP, PREALB, ANDREZ, CBCD #### [facility] [address] [place] [address] Triglyceride [Mass/Vol] 328 mg/dL High <150 [facility] Comment on above: Result Comment: TRIGLYCERIDE RISK ASSESSMENT: 150-199 mg/dl BORDERLINE HIGH >200 mg//dl HIGH . Performed By: #### V ITB1, ZINC #### [facility] [address] [place] [address] #### B12, FOL, CMP, PREALB, ANDREZ, CBCD #### [facility] [address] [place] [address] VLDL CHOLESTEROL 66 mg/dL High 6-40 [facility] Comment on above: Performed By: #### V ITB1, ZINC #### [facility] [address] [place] [address] #### B12, FOL, CMP, PREALB, ANDREZ, CBCD #### [facility] [address] [place] [address] THYROID STIM HORMONE (HS)on 07-31-2022 THYROID STIM HORMONE (HS) 2.569 uIU/ml Normal 0.550-4.780 [facility] Comment on above: Performed By: #### V ITB1, ZINC #### [facility] [address] [place] [address] #### B12, FOL, CMP, PREALB, ANDREZ, CBCD #### [facility] [address] [place] [address] NICOTINE METABOLITE, QUANTon 07-19-2022 COTININE <1.0 Normal . [facility] Comment on above: Order Comment: FAX T O [phone] Result Comment: This test was developed and its performance characteristics determined by [facility]. It has not been cleared or approved by the Food and Drug Administration. Cotinine levels greater than 20.0 are consistent with the use of tobacco or tobacco cessation products. Performed at: [facility] [address] [id number] Bander: Estuardo Michelle MD, Phone: [phone] Performed By: #### N ICOTINE #### [facility] [address] [place] [address] NICOTINE <1.0 Normal . [facility] Comment on above: Order Comment: FAX T O [phone] Result Comment: This test was developed and its performance characteristics determined by [facility]. It has not been cleared or approved by the Food and Drug Administration. Nicotine levels greater than 2.0 are consistent with the use of tobacco or tobacco cessation products. Performed By: #### N ICOTINE #### [facility] [address] [place] [address] HIPS BILATERAL (2V)on 2021 [facility] BAT[facility] Phys: LASHAWN WELLS NP : 2000 Age: 22 Sex: F Acct: [id number] Loc: RAD Exam Date: 06/14/2022 Status: REG CLI Radiology No: [id number] Unit No: [id number] EXAM# TYPE/EXAM RESULT [id number] RAD/HIPS BILATERAL (2V) SEE REPORT INDICATION: Sharp [...] NP Technologist: Eugene Wagner Transcribed Date/Time: 06/14/2022 (7640) 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: OSCAR Printed Date/Time: 06/14/2022 (8247) PAGE 1 Signed Report Normal [facility] Vitamin B1 (Thiamine), Whole Bloodon 05-09-2022 Vitamin B1, Whole Blood 116 nmol/L Normal 70-180 [facility] Comment on above: Result Comment: INTE RPRETIVE INFORMATION: Vitamin B1, Whole Blood This assay measures the concentration of thiamine diphosphate (TDP), the primary active form of vitamin B1. Approximately 90 percent of vitamin B1 present in whole blood is TDP. Thiamine and thiamine monophosphate, which comprise the remaining 10 percent, are not measured. This test was developed and its performance characteristics determined by [facility]. It has not been cleared or approved by the [place] Food and Drug Administration. This test was performed in a CLIA certified laboratory and is intended for clinical purposes. Performed By: [facility] [address] [place] [address] Field Mechanical Meter Tester: Francisco Javier Zhang MD, PhD Performed By: #### 8 0388 ####[facility] Reference [address] [place] [address] Zinc, Serumon 05-07-2022 Zinc, Serum 75.6 ug/dL Normal 60.0-120.0 [facility] Comment on above: Result Comment: INTE RPRETIVE [...] developed and its performance characteristics determined by [facility]. It has not been cleared or approved by the US Food and Drug Administration. This test was performed in a CLIA certified laboratory and is intended for clinical purposes. Performed By: [facility] [address] [place] [address] Field Mechanical Meter Tester: Francisco Javier Zhang MD, PhD Performed By: #### 2 0097 #### [facility] Reference Lab [address] [place] [address] Blood glucose - POCTon 05-04 QC OK? [facility] Work Phone: CBCon 05-04-2022 Hematocrit (Bld) [Volume fraction] 40.4 % 34.0 - 48.0 % [facility] Hemoglobin (Bld) [Mass/Vol] 13.2 g/dL 11.5 - 15.5 g/dL [facility] MCH (RBC) [Entitic mass] 29.9 pg 26.0 - 35.0 pg [facility] MCHC (RBC) [Mass/Vol] 32.7 % 32.0 - 34.5 % [facility] MCV (RBC) [Entitic vol] 91.6 fL 80.0 - 99.9 fL [facility] Platelet distribution width (Bld) [Ratio] 13.0 fL 11.5 - 15.0 fL [facility] Platelet mean volume (Bld) [Entitic vol] 9.8 fL 7.0 - 12.0 fL [facility] Platelets (Bld) [#/Vol] 313 10*3/uL [facility] RBC (Bld) [#/Vol] 4.41 10*6/uL [facility] WBC (Bld) [#/Vol] 9.2 10*3/uL [facility] CBC With Platelet No Differe ntialon 05-04-2022 Hematocrit (Bld) [Volume fraction] 40.4 % Normal 34.0-48.0 [facility] Hemoglobin (Bld) [Mass/Vol] 13.2 g/dL Normal 11.5-15.5 [facility] MCH (RBC) [Entitic mass] 29.9 pg Normal 26.0-35.0 [facility] MCHC 32.7 % Normal 32.0-34.5 [facility] MCV (RBC) [Entitic vol] 91.6 fL Normal 80.0-99.9 [facility] Platelet Count 313 E9/L Normal 130-450 [facility] Platelet mean volume (Bld) [Entitic vol] 9.8 fL Normal 7.0-12.0 [facility] RBC 4.41 E12/L Normal 3.50-5.50 [facility] RDW 13.0 fL Normal 11.5-15.0 [facility] WBC 9.2 E9/L Normal 4.5-11.5 [facility] Cholesterolon 05-04-2022 Cholesterol [Mass/Vol] 162 mg/dL Normal 0-199 [facility] Cholesterol, Totalon 022 Cholesterol [Mass/Vol] 162 mg/dL 0 - 1 99 mg/dL [facility] Comprehensive Metabolic Pane evan 05-04-2022 Albumin [Mass/Vol] 4.1 g/dL 3.5 - 5.2 g/dL [facility] Albumin [Mass/Vol] 4.1 g/dL Normal 3.5-5.2 [facility] ALP (Bld) [Catalytic activity/Vol] 64 U/L 35 - 104 U/L [facility] ALP [Catalytic activity/Vol] 64 U/L Normal 35-104 [facility] ALT [Catalytic activity/Vol] 22 U/L 0 - 32 U/L [facility] ALT [Catalytic activity/Vol] 22 U/L Normal 0-32 [facility] Anion gap [Moles/Vol] 10 mmol/L 7 - 16 mmol/L [facility] Anion gap [Moles/Vol] 10 mmol/L Normal 7-[address] [facility] AST [Catalytic activity/Vol] 13 U/L 0 - 31 U/L [facility] AST [Catalytic activity/Vol] 13 U/L Normal 0-31 [facility] Bilirubin [Mass/Vol] 0.2 mg/dL 0.0 - 1 .2 mg/dL [facility] Bilirubin [Mass/Vol] 0.2 mg/dL Normal 0.0-1.2 [facility] Calcium [Mass/Vol] 8.9 mg/dL 8.6 - 10. 2 mg/dL [facility] Calcium [Mass/Vol] 8.9 mg/dL Normal 8.6-10.2 [facility] Chloride [Moles/Vol] 102 mmol/L 98 - 10 7 mmol/L [facility] Chloride [Moles/Vol] 102 mmol/L Normal 98-107 [facility] CO2 [Moles/Vol] 25 mmol/L 22 - 29 mmol/L [facility] CO2 [Moles/Vol] 25 mmol/L Normal 22-29 [facility] Creatinine [Mass/Vol] 0.7 mg/dL 0.5 - 1.0 mg/dL [facility] Creatinine [Mass/Vol] 0.7 mg/dL Normal 0.5-1.[address] [facility] GFR Calculated >60 Normal >=60 [facility] Comment on above: Result Comment: Dion atri calculator link https://www.kidney.org/professionals/kdoqi/gfr_calculatorped Effective Apr 02, 2022 [...] following therapy that affects renal tubular secretion. GFR/1.73 sq M.predicted MDRD (S/P/Bld) [Vol rate/Area] mL/min/1.73 60 - PINF mL/min/1.73 [facility] Comment on above: Pediatric calculator link https://www.kidney.org/professionals/kdoqi/gfr_calculatorped [...] secretion. Glucose [Mass/Vol] 96 mg/dL Normal 74-99 [facility] Potassium [Moles/Vol] 4.5 mmol/L 3.5 - 5.0 mmol/L [facility] Potassium [Moles/Vol] 4.5 mmol/L Normal 3.5-5.0 [facility] Protein [Mass/Vol] 6.9 g/dL 6.4 - 8.3 g/dL [facility] Protein [Mass/Vol] 6.9 g/dL Normal 6.4-8.3 [facility] Sodium [Moles/Vol] 137 mmol/L 132 - 146 mmol/L [facility] Sodium [Moles/Vol] 137 mmol/L Normal 132-146 [facility] Urea nitrogen (BldV) [Mass/Vol] 17 mg/dL 6 - 20 mg/dL [facility] Urea nitrogen [Mass/Vol] 17 mg/dL Normal 6-20 [facility] Ferritinon 05-04-2022 Ferritin [Mass/Vol] 69 ng/mL Normal [facility] Comment on above: Result Comment: FERR ITIN Reference Ranges: Adult Males 20 - 60 years: 30 - 400 ng/mL Adult females 17 - 60 years: 13 - 150 ng/mL Adults greater than 60 years: no established reference range Pediatrics: no established reference range Folateon 05-04-2022 Folate 8.5 ng/mL Normal 4.8-24.2 [facility] Hgb A1Con 05-04-2022 HbA1c (Bld) [Mass fraction] 5.7 % High 4.0-5.6 [facility] Laboratory - Chemistry and C hemistry - challengeon 05-04-2022 Glucose [Mass/Vol] 96 mg/dL [facility] METER GLUCOSEon 05-04-2022 Glucose [Mass/Vol] 93 mg/dL Normal 74-99 [facility] No Panel Informationon 05-04 [facility] POC Urine Qualon 1 07-04-2021 Beta HCG ( test) Ql (U) Negative Negative [facility] [employer] Work Phone: Lot Number [id number] [facility] [employer] Work Phone: Negative QC Pass/Fail Pass [facility] [employer] Work Phone: Positive QC Pass/Fail Pass [facility] Work Phone: POCT Glucoseon 05-04-2022 Glucose [Mass/Vol] 93 mg/dL 74 - 99 mg/dL [facility] Prealbuminon 05-04-2022 Prealbumin [Mass/Vol] 24 mg/dL Normal 20-40 [facility] Surgical Specimenon 05-04-20 Surgical Specimen [facility] [address] [facility] [address] [place] [address] FINAL SURGICAL PATHOLOGY REPORT NAME: BATOOL KINGSLEY Date of 05/04/2022 Collection: Medical Record [id number] Date of 05/04/2022 Number: Receipt: Age: 22 Y Sex: F Date 05/11/2022 08:29 Reported: Date Of : 2000 Financial [id number] Admitting DERIC FLORENCE Number: Physician: Patient DIS ITZEL Ordering DERIC FLORENCE Location: Physician: Accession Number: [...] submitted. Block label: A1. (JORGE L:YAYA) CODES: [id number]; Department of Pathology Page 1 of 1 Normal [facility] Triglycerideon 05-04-2022 Interpretation and review of laboratory results Abnormal [facility] Triglyceride [Mass/Vol] 274 mg/dL High 0 - 149 mg/dL [facility] Triglycerideson 05-04-2022 Triglyceride [Mass/Vol] 274 mg/dL High 0-149 [facility] Vitamin B12on 05-04-2022 Cobalamin (Vitamin B12) [Mass/Vol] 226 pg/mL Normal 211-946 [facility] US GALLBLADDER RUQon 022 US GALLBLADDER RUQ [...] Rohit Dowling MD 05/02/22 Final result Normal [facility] Comment on above: Order Comment: Reaso n for exam:->Indigestion What reading provider will be dictating this exam?->CRC CBC Auto DifferentialOrdered By: Win Narvaez on 03-27-2021 Basophils (Bld) [#/Vol] 0.05 10*3/uL [employer] Phone: Basophils/100 WBC (Bld) 0.5 % 0.0 - 2.0 % [employer] Phone: Eosinophils Absolute 0.37 [employer] Phone: Eosinophils/100 WBC (Bld) 3.8 % 0.0 - 6.0 % [facility] Phone: Hematocrit (Bld) [Volume fraction] 39.5 % 34.0 - 48.0 % [employer] Phone: Hemoglobin.gastrointes tinal spec 1 Ql (Stl) 12.6 g/dL 11.5 - 15.5 g/dL [facility] Phone: Immature Granulocytes # 0.18 E9/L [employer] Phone: Immature granulocytes/100 WBC (Bld) 1.8 % 0.0 - 5.0 % [facility] Phone: Lymphocytes Absolute 3.73 [employer] Phone: Lymphocytes/100 WBC (Bld) 38.2 % 20.0 - 42.0 % [facility] Phone: MCH (RBC) [Entitic mass] 28.9 pg 26.0 - 35.0 pg [facility] Phone: MCHC (RBC) [Mass/Vol] 31.9 % Low 32.0 - 34.5 % [facility] Phone: MCV (RBC) [Entitic vol] 90.6 fL 80.0 - 99.9 fL [facility] Phone: Monocytes Absolute 0.46 [facility] Phone: Monocytes/100 WBC (Bld) 4.7 % 2.0 - 12.0 % [employer] Phone: Neutrophils Absolute 4.97 [employer] Phone: Neutrophils/100 WBC (Bld) 51.0 % 43.0 - 80.0 % [employer] Phone: Platelet distribution width (Bld) [Ratio] 13.3 fL 11.5 - 15.0 fL [employer] Phone: Platelet mean volume (Bld) [Entitic vol] 9.7 fL 7.0 - 12.0 fL [employer] Phone: Platelets (Bld) [#/Vol] 281 10*3/uL [facility] Phone: RBC (Bld) [#/Vol] 4.36 10*6/uL [facility] Phone: WBC (Bld) [#/Vol] 9.8 10*3/uL [employer] Phone: Comprehensive Metabolic Pane l w/ Reflex to MGOrdered By: Win Narvaez on 03-27-2021 Albumin [Mass/Vol] 4.2 g/dL 3.5 - 5.2 g/dL [facility] Phone: ALP (Bld) [Catalytic activity/Vol] 64 U/L 35 - 104 U/L [facility] Phone: ALT [Catalytic activity/Vol] 19 U/L 0 - 32 U/L [facility] Phone: Anion gap [Moles/Vol] 12 mmol/L 7 - 16 mmol/L [facility] Phone: AST [Catalytic activity/Vol] 14 U/L 0 - 31 U/L [facility] Phone: Bilirubin [Mass/Vol] mg/dL 0.0 - 1 .2 mg/dL [facility] Phone: Calcium [Mass/Vol] 9.1 mg/dL 8.6 - 10. 2 mg/dL [facility] Phone: Chloride [Moles/Vol] 103 mmol/L 98 - 10 7 mmol/L [facility] Phone: CO2 [Moles/Vol] 22 mmol/L 22 - 29 mmol/L [facility] Phone: Creatinine [Mass/Vol] 0.5 mg/dL 0.5 - 1.0 mg/dL [facility] Phone: Free PSA/Total PSA [Mass fraction] 7.1 g/dL 6.4 - 8.3 g/dL [facility] Phone: GFR >60 [employer] Phone: GFR Non- >60 >=60 mL/min/1.73 [facility] Phone: Comment on above: Chronic Kidney Disea se: less than 60 ml/min/1.73 sq.m. Kidney Failure: less than 15 ml/min/1.73 sq.m. Results valid for patients 18 years and older. Glucose [Mass/Vol] 107 mg/dL High 74 - 99 mg/dL [facility] Phone: Potassium [Moles/Vol] 4.2 mmol/L 3.5 - 5.0 mmol/L [facility] Phone: Sodium [Moles/Vol] 137 mmol/L 132 - 146 mmol/L [facility] Phone: Urea nitrogen (BldV) [Mass/Vol] 9 mg/dL 6 - 20 mg/dL [facility] Phone: Microscopic UrinalysisOrdere d By: Win Narvaez on 03-27-2021 Bacteria, UA FEW Abnormal None Seen /HPF [facility] Phone: Epithelial Cells, UA FEW /HPF [employer] Phone: RBC, UA 2-5 [facility] Phone: WBC, UA 0-1 [facility] Phone: No Panel InformationOrdered By: Win Narvaez on 03-27-2021 Interpretation and review of laboratory results Abnormal [facility] Phone: [facility] Phone: POC Urine QualOrde red By: Win Narvaez on 03-27-2021 Beta HCG ( test) Ql (U) Negative Negative [facility] Phone: Beta HCG ( test) Ql (U) [id number] [facility] Phone: Negative QC Pass/Fail Pass [employer] Work Phone: Positive QC Pass/Fail Pass [employer] Work Phone: US PELVIS COMPLETEOrdered By : Tien Oneal on 03-27-2021 The bilateral ovaries are mildly enlarged, right greater than left. Otherwise, unremarkable pelvic ultrasound. [employer] Phone: EXAMINATION: PELVIC ULTRASOUND 03/27/2021 TECHNIQUE: Multiple [...] Free Fluid: No evidence of free fluid. [facility] Phone: [place], [facility] Incoming Radiant Results From [employer] - 03/27/2021 3:01 PM EDT EXAMINATION: PELVIC [...] greater than left. Otherwise, unremarkable pelvic ultrasound. [facility] Phone: [facility] Phone: UrinalysisOrdered By: Win Narvaez on 03-27-2021 Bilirubin Urine Negative Negative [employer] Work Phone: Blood, Urine LARGE Abnormal Negative [facility] Work Phone: Clarity, UA Clear Clear [facility] Work Phone: Color, UA Yellow Straw/Yellow [facility] [employer] Work Phone: Glucose, Ur Negative Negative mg/dL [facility] Work Phone: Ketones Ql (U) Negative Negative mg/dL [facility] [employer] Work Phone: Leukocyte esterase Test strip Ql (U) Negative Negative [facility] Work Phone: Nitrite, Urine Negative Negative [facility] Work Phone: pH, UA 5.0 [facility] Work Phone: Protein, UA TRACE Negative mg/dL [facility] Work Phone: Specific [place], UA >=1.030 [employer] Work Phone: Urobilinogen, Urine 0.2 <2.0 E.U./dL [facility] [employer] Work Phone: NOSE/THROAT CULTUREon 2020 NOSE/THROAT CULTURE RUN DATE: 07/10/20 Laboratory LIVE PAGE 1 RUN TIME: 951 Specimen Inquiry RUN USER: INTERFACE [facility] Department of Laboratories [address] [place] [address] PATIENT: BATOOL KINGSLEY LOC: ALONDRA U #: [id number] HOME PHONE: AGE/SX: ROOM: RE07/08/[address]: Ameena Corcoran APRN.TWISTER HAND : 89 BED: DIS: STATUS: REG REF LAB O/S: Specimen: [id number] Collected: 07/08/20 Status: COMP Req#: [id number] Received: 07/08/20 Source: THROAT Sp Desc: Subm Dr: Ameena Corcoran APRN.CNP Ordered: NOSE/THRT CULT Procedure Result Verified > NOSE/THROAT CULTURE Final 07/10/20 HEAVY GROWTH OF NORMAL ARIN END OF REPORT Normal [facility] Comment on above: Performed By: #### C LIZZYTNT #### [facility] [address] [address] Social History Date Type Detail Facility Start: 10-29-2022 History SDOH Alcohol Frequency 1 [facility] Phone: Start: 05-04-2022 End: 10-30-2022 Alcohol intake Current drinker of alcohol (finding) [facility] Phone: Start: 05-03-2022 End: 10-24-2022 Tobacco smoking status NHIS Ex-smoker [facility] Phone: Start: 05-03-2022 End: 10-24-2022 Tobacco use and exposure Smokeless tobacco non-user [facility] Phone: Start: 05-03-2022 Tobacco Comment Quit 12/2021 [facility] Phone: Start: 05-03-2022 Alcohol Comment occ [facility] Phone: Start: 04-23-2022 End: 05-03-2022 Exposure to SARS-CoV-2 (event) Not sure Currently Start: 2000 Sex Assigned At Not on file [facility] Phone: Tobacco smoking stat us [facility] [place] Unknown if ever smoked [facility] Phone: End: 12-29-2021 History of tobacco use Current smoker [facility] Phone: End: 12-29-2021 History of tobacco use Cigarette Smoker [facility] Work Phone: Vital Signs Date Time Vital Sign Value Performing Clinician Faci lity 10-30-2022 08:56-0400 SaO2% (BldA) [Mass fraction] 97 % Deric Florence MD Work Phone[facility] 10-30-2022 05:00-0400 Body temperature 97.9 [degF] Deric Florence MD Work Phone: [facility] 10-30-2022 05:00-0400 Diastolic blood pressure 74 mm[Hg] Deric Florence MD Work Phone: [facility] 10-30-2022 05:00-0400 Heart rate 74 /min Deric Florence MD Work Phone: [facility] 10-30-2022 05:00-0400 Respiratory rate 18 /min Deric Florence MD Work Phone: [facility] 10-30-2022 05:00-0400 Systolic blood pressure 126 mm[Hg] Deric Florence MD Work Phone: [facility] 10-29-2022 06:50-0400 Body height 170.2 cm Deric Florence MD Work Phone: [facility] 10-29-2022 06:50-0400 Body mass index (BMI) [Ratio] 55.6 kg/m2 Deric Florence MD Work Phone: [facility] 10-29-2022 06:50-0400 Body weight 161.03 kg Deric Florence MD Work Phone: [facility] 10-24-2022 12:17-0400 Body height 170.2 cm Sjwz 2 [facility] 10-24-2022 12:17-0400 Body mass index (BMI) [Ratio] 55.44 kg/m2 Sjwz 2 [facility] 10-24-2022 12:17-0400 Body temperature 98.01 [degF] Sjwz 2 [facility] 10-24-2022 12:17-0400 Body weight 160.57 kg Sjwz 2 [facility] 10-24-2022 12:17-0400 Diastolic blood pressure 62 mm[Hg] Sjwz 2 [facility] 10-24-2022 12:17-0400 Heart rate 77 /min Sjwz 2 [facility] 10-24-2022 12:17-0400 Respiratory rate 16 /min Sjwz 2 [facility] 10-24-2022 12:17-0400 SaO2% (BldA) [Mass fraction] 95 % Sjwz 2 [facility] 10-24-2022 12:17-0400 Systolic blood pressure 117 mm[Hg] Sjwz 2 [facility] 05-04-2022 08:55-0400 Body temperature 98.29 [degF] Deric Florence MD Work Phone: [facility] 05-04-2022 08:55-0400 Diastolic blood pressure 68 mm[Hg] Deric Florence MD Work Phone: [facility] 05-04-2022 08:55-0400 Heart rate 83 /min Deric Florence MD Work Phone: [facility] 05-04-2022 08:55-0400 Respiratory rate 16 /min Deric Florence MD Work Phone: [facility] 05-04-2022 08:55-0400 SaO2% (BldA) [Mass fraction] 92 % Deric Florence MD Work Phone: [facility] 05-04-2022 08:55-0400 Systolic blood pressure 128 mm[Hg] Deric Florence MD Work Phone: [facility] 05-04-2022 07:06-0400 Body height 170.2 cm Deric Florence MD Work Phone: [facility] 05-04-2022 07:06-0400 Body mass index (BMI) [Ratio] 61.21 kg/m2 Deric Florence MD Work Phone: [employer] 05-04-2022 07:06-0400 Body weight 177.27 kg Deric Florence MD Work Phone: [employer] 03-27-2021 20:08-0400 Heart rate 95 /min Tien Oneal DO Work Phone: Currently Work Phone: 03-27-2021 13:47-0400 Body height 170.2 cm Tien Oneal [employer] Work Phone: Currently Work Phone: 03-27-2021 13:47-0400 Body mass index (BMI) [Ratio] 54.82 kg/m2 Tien Oneal [employer] Work Phone: Currently Work Phone: 03-27-2021 13:47-0400 Body temperature 97.11 [degF] Tien Oneal DO Work Phone: Currently Work Phone: 03-27-2021 13:47-0400 Body weight 158.76 kg Tien Oneal Work Phone: Currently Work Phone: 03-27-2021 13:47-0400 Diastolic blood pressure 80 mm[Hg] Tien Oneal Work Phone: Currently Work Phone: 03-27-2021 13:47-0400 Respiratory rate 16 /min Tien Oneal Work Phone: Currently Work Phone: 03-27-2021 13:47-0400 SaO2% (BldA) [Mass fraction] 98 % Tien Oneal Work Phone: Currently Work Phone: 03-27-2021 13:47-0400 Systolic blood pressure 173 mm[Hg] Tien Oneal DO Work Phone: [facility] [employer] Work Phone: Clinical Notes 05-04-2022 to 10-30-2022 Discharge [...] blood sugars as ordered by PCP or Small Boat Engineer. Follow up with PCP or Small Boat Engineer regarding diabetic medications. Make sure you take any medicines you were on for depression or anxiety. FOLLOW-UP Follow-up appointment with surgeon 10-14 days after surgery. Complete lab work prior to this appointment. Follow-up with PCP and/or Small Boat Engineer prior to seeing surgeon. CALL [facility] [phone] IF ANY OF THE FOLLOWING OCCURS TO [...] Weapons (Notify Protective Services/Security): None Other Valuables: [place], [employer] Home Medications: None Valuables Given To: [...] through Care Everywhere.Gastric Bypass Surgery: Nuno-en-Y: Post-op (Solomon Islander)documented in this encounter [facility] [employer] Work Phone: 10-30-2022 Hospital course Narrative Physician Discharge Summary Batool Kingsley [id number] Admit date: 10/29/2022 Discharge date and time: [...] Your Medications These medications were sent to [address] [phone] - [phone] [place] [id number] traMADol 50 MG tablet Activity: no lifting, [...] 10/30/2022 6:48 AM documented in this encounter [facility] [employer] Phone: 10-30-2022 History of Presen t illness Narrative Internal Medicine Progress Note NATHALIE=[facility] Shanta Hernandez D.O., F.A.C.O.I. Shabana OconnorO., F.A.C.O.I. Juliocesar Werner D.O. Francine Kilpatrick, MSN, POWER TRANSFORMER REPAIR SUPERVISOR, HYDROGEOLOGY PROFESSOR-C Yang Hsu, MSN, POWER TRANSFORMER REPAIR SUPERVISOR-TWISTER HAND Primary Care Physician: KAELA ARELLANO APRN - TWISTER HAND Admitting Physician: Deric Florence MD Admission date and time: 10/29/2022 6:02 AM Room: [address] [place] [address] Admitting diagnosis: Morbid obesity (HCC) [E66.01] Post-operative [...] Meds: insulin lispro 0-4 Units SubCUTAneous TID insulin lispro 0-4 Units SubCUTAneous Nightly sodium [...] reflux disease with possible hiatal hernia repair Mjl-ohothml-boxkdssgq diabetes mellitus type 2 Anxiety Plan: Batool [...] 6:37 AM documented in this encounter [facility] Work Phone: 10-24-2022 History of Presen t illness Narrative Images from the original note were not included. [facility] PRE OP INSTRUCTIONS FOR Batool Kingsley Date: [...] makeup (including no eye makeup) or nail thai on your fingers or toes. DO NOT wear any jewelry or piercings on day of surgery. All body piercing jewelry must be removed. Shower the night before surgery with _x__Antibacterial soap /CHG WIPES___x If you have a Living Will and Durable Power of Manager [employer] for [facility], please bring in a copy. [...] and go to information desk Please call MANAGER OF PMO if you have any further questions. Pre Admit Testing [phone] [facility] [phone] documented in this encounter [facility] [employer] Work Phone: 05-04-2022 Hospital Discharg e luis carlos Goyal RN - 05/04/2022 9:47 AM EDT [...] the day after the test, use an qsik-car-kuixdxd spray to numb your throat. Follow-up care [...] Where can you learn more? Go to [email or web address] and sign in to your [employer] account. Enter J454 in the Search Health Information box to learn more about Upper GI Endoscopy: What to Expect at Home. If you do not have an account, please click on the Sign Up Now link. Current as of: December 04, 2021 Content Version: 13.4 [employer]. Care instructions adapted under license by Currently. If you have questions about a medical condition or this instruction, always ask your healthcare professional. [employer] disclaims any warranty or liability for your use of this information. documented in this encounter [facility] [employer] Work Phone: 05-04-2022 History of Presen t illness Narrative SBAR form completed and placed on chart. Chart with patient in transit. Images from the original note were not included. [facility] PRE OP INSTRUCTIONS FOR Batool Kingsley Date: 05/03/2022 Date of surgery: 05/04/2022 [...] makeup (including no eye makeup) or nail thai on your fingers or toes. DO NOT wear any jewelry or piercings on day of surgery. All body piercing jewelry must be removed. Shower the night before surgery with _x__Antibacterial soap /ALEXANDER WIPES TOTAL JOINT REPLACEMENT/HYSTERECTOMY PATIENTS ONLY---Remember to bring Blood Bank bracelet to the hospital on the day of surgery. If you have a Living Will and Durable Power of Manager [employer] for Healthcare, please bring in a copy. [...] safety of all patients. Other Please call MANAGER OF PMO if you have any further questions. Pre Admit Testing [phone] [facility] [phone] documented in this encounter [facility] [employer] Phone: Evaluation note Diagnosis DUB (dysfunctional uterine bleeding)- Primary Other disorder of menstruation and other abnormal bleeding from female genital tract documented in this encounter [employer] Phone: evaldunvew note* Diagnosis Gastroesophageal reflux disease- Primary Esophageal reflux Morbid obesity due to excess calories (HCC) documented in this encounter [facility] Phone: evalyojypb note* Diagnosis Morbid obesity (HCC)- Primary Morbid obesity Preop testing- Primary Preoperative examination, unspecified 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 * AUB (Abnormal Uterine Bleeding) (Solomon Islander) documented in this encounterR[facility]ter Phone: Summary Purpose Family History No Family [...] section and content) DATE CREATED AUTHOR 07/16/2020 [facility] [employer] [facility] [place] DATE CREATED AUTHOR AUTHOR'S ORGANIZ ATION 05/05/2022 [facility] DATE CREATED AUTHOR AUTHOR'S ORGANIZ ATION 02/07/2023 [facility] DATE CREATED AUTHOR AUTHOR'S ORGANIZ ATION 06/04/2023 [facility] DATE CREATED AUTHOR AUTHOR'S ORGANIZ ATION 11/11/2023 [facility] DATE CREATED AUTHOR AUTHOR'S ORGANIZ ATION 12/14/2023 [facility] Specialists EPIC Reason for Visit (unrecogniz ed section and content) Reason Comments Vaginal Bleeding 4 pad per hour, larg e clots present Specialty Diagnoses / Procedures Referred By Geronimo reardon Referred To Contact Diagnoses Gastroesophageal reflux disease Gastroesophageal reflux disease [K21.9] Procedures SC EGD TRANSORAL BIOPSY SINGLE/MULTIPLE SC EGD TRANSORAL BIOPSY SINGLE/MULTIPLE SC ESOPHAGOGASTRODUODENOSCOPY TRANSORAL DIAGNOSTIC SC EGD BALLOON DILATION ESOPHAGUS <30 MM DIAM EGD ESOPHAGOGASTRODUODENOSCOPY Deric Florence MD [address] [place] [address] [facility] [address] [place] [address] Referral ID Status Reason Start Date Expiration Date Visits Re quested Visits Authorized [id number] 1 1 Specialty Diagnoses / Procedures Referred By Geronimo reardon Referred To Contact Diagnoses Morbid obesity (HCC) Morbid obesity (HCC) [E66.01] Procedures SC LAPS GSTR RSTCV PX W/BYP NUNO-EN-Y LIMB <150 CM GASTRIC BYPASS NUNO-EN-Y LAPAROSCOPIC Deric Florence MD [address] [place] [address] [facility] [address] [place] [address] Referral ID Status Reason Start Date Expiration Date Visits Re quested Visits Authorized [id number] 1 1 Continuous Active and Recently Administ [...] 100 mL IVPB (COMPLETED) 3,000 mg, IntraVENous, BAGGAGE SECURITY CHECKER TO O.R., 1 dose, On Sat10/29/22 at 0715, Antimicrobial Indications: Surgical Prophylaxis, Administer within 1 hour prior to incision. Repeat in 3-4 hours after initial dose if still intra-op., Pre-op (day of surgery) 0844 (Given - Provider: SARAI Murrell CRNA) insulin lispro (HUMALOG) injection vial 0-4 Units [...] at 1015 0951 (Given - Provider: Khushi Hebetr, MELANIA) ondansetron (ZOFRAN) injection 4 mg (COMPLETED) 4 [...] Fu RN)1836 (Rate/Dose Verify - Provider: Dena Fu RN)2039 (New Bag - Provider: Jennifer Huff RN) 0506 (New Bag - Provider: Jennifer Huff [...] of order., Post-op bupivacaine-EPINEPHrine PF (MARCAINE-w/EPINEPHrine) 0.25% -[id number] injection (CANCELED) PRN, Starting on Sat10/29/22 at [...] PACU only 1045 (Given - Provider: Khushi Hebert, MELANIA)1055 (Given - Provider: Khushi Hebert, MELANIA) HYDROmorphone HCl PF (DILAUDID) injection 0.5 mg (COMPLETED) 0.5 mg, IntraVENous, EVERY 5 MIN PRN, 2 doses, Starting on Sat10/29/22 at 0949, Until Sat10/29/22 at 1010, Pain Severe (7-10), For Phase I. If Phase II oral narcotics have been administered in the last 60 minutes, do not administer IV narcotics unless specifically approved by provider., PACU only 1000 (Given - Provider: Khushi Hebert, RN)1010 (Given - Provider: Khushi Hebert, MELANIA) magnesium sulfate 1000 mg in dextrose 5% [...] Huff RN) 0356 (Given - Provider: Isak Bradshaw, RN)0856 (See Alternative - Provider: Helen Bradford, RN) morphine injection 4 mg(Linked Group 2) [...] (See Alternative - Provider: Jennifer Huff RN) 0356 (See Alternative - Provider: Isak Bradshaw, RN)0856 (Given - Provider: Helen Bradford, RN) ondansetron (ZOFRAN) injection 4 mg 4 mg, [...]
Care Teams (unrecognized sec tion and content) [employer] Fireman Relationship Specialty Start Date End Date Kaela Arellano, POWER TRANSFORMER REPAIR SUPERVISOR - TWISTER HAND [address] [place] [address] PCP - General Certified Nurse Practitioner 04/27/22 [employer] Fireman Relationship Specialty Start Date End Date Kaela Arellano, POWER TRANSFORMER REPAIR SUPERVISOR - TWISTER HAND [address] [place] [address] PCP - General Certified Nurse Practitioner 09/14/22 [employer] Fireman Relationship Specialty Start Date End Date Kaela Arellano, POWER TRANSFORMER REPAIR SUPERVISOR - TWISTER HAND [address] [place] [address] PCP - General Certified Nurse Practitioner 09/14/22 [...] BE BASED ON THE PRIMARY CLINICAL RECORDS. [employer] provides no warranty or guarantee of the accuracy or completeness of information in this document.
[2023-12-24 11:54] LABS: Thyroid Stimulating Hormone 2.506 uIU/mL (0.358-3.740)
== END 2023-12-24 10:47 | disposition home or self-care (01) ==
LOC: LAB 10:46
PROVIDERS: Visit Provider Obstetrics & Gynecology
DX: R79.89 Other specified abnormal findings of blood chemistry (principal)
CPT/HCPCS: 36415; 84443

== ENCOUNTER 2024-02-10 20:53 | Outpatient (REF) | payer OTHER, SELFPAY ==
--- OUTSIDE RECORDS SUMMARY | 2024-02-10 20:57 | XMS_ITS | CCD ---
Author Organization [facility] Informat ion Partnership ANIMAL CAREGIVER [facility] Care Team Providers Care Salesperson Stereo Equipment Name Role Phone Unavailable Primary Care Provider Unavailabl e Eileen MANAGER DISCOVERY - SHERIE, Kaela Primary Care Provider [phone] DERIC FLORENCE Referring Unavailable EILEEN, KAELA Primary Care Unavailable Eileen MANAGER DISCOVERY - SENIOR ERP CONSULTANT, Kaela Primary Care Provider [phone] EILEEN, KAELA Primary Care Unavailable DERIC FLORENCE Referring Unavailable EILEEN, KAELA Primary Care Unavailable DERIC FLORENCE Admitting Unavailable DERIC FLORECNE Attending Unavailable CHRISTIN MASON Unavailable EILEEN, KAELA Primary Care Unavailable DERIC FLORENCE Admitting Unavailable DERIC FLORENCE Attending Unavailable EILEEN, KAELA Primary Care Unavailable EILEEN, KAELA Attending Unavailable EILEEN, KAELA Primary Care Unavailable VAHE FLORENCE Attending Unavailable EILEEN, KAELA Attending Unavailable EILEEN, KAELA Primary Care Unavailable EILEEN, KAELA Attending Unavailable EILEEN, KAELA Primary Care Unavailable EILEEN, KAELA Primary Care Unavailable GLENNY WELLS Attending Unavailable EILEEN, KAELA Attending Unavailable EILEEN, KAELA Primary Care Unavailable EILEEN, KAELA Attending Unavailable EILEEN, KAELA Primary Care Unavailable EILEEN, KAELA Attending Unavailable EILEEN, KAELA Primary Care Unavailable EILEEN, KAELA Primary Care Unavailable VAHE FLORENCE Attending [...] ( test) Ql (U) Positive Abnormal NEG [facility] Comment on above: Performed By: #### 2 106-3 #### [facility] ([id number]) [address] [place] [address] URN MACROSCOPIC NURon 2023 BILIRUBIN [place] Negative Normal NEG [facility] Comment on above: Performed By: #### N UM #### [facility] ([id number]) [address] [place] [address] BLOOD/HGB [place] Trace Abnormal NEG [facility] Comment on above: Performed By: #### N UM #### [facility] ([id number]) [address] [place] [address] [place] [address] GLUCOSE [place] Negative Normal NEG [facility] Comment on above: Performed By: #### N UM #### [facility] ([id number]) [address] [place] [address] [place] [address] KETONES [place] Trace Abnormal NEG [facility] Comment on above: Performed By: #### N UM #### [facility] ([id number]) [address] [place] [address] 43781 LEUKOCYTE ESTERASE [place] Small Abnormal NEG [facility] Comment on above: Performed By: #### N UM #### [facility] ([id number]) [address] [place] [address] [place] [address] NITRITE [place] Negative Normal NEG [facility] Comment on above: Performed By: #### N UM #### [facility] ([id number]) [address] [place] [address] 205[address] PH [place] 6.0 Normal 5.0-8.5 [facility] Comment on above: Performed By: #### N UM #### [facility] ([id number]) [address] [place] [address] [place] [address] PROTEIN [place] Negative Normal NEG [facility] Comment on above: Performed By: #### N UM #### [facility] ([id number]) [address] [place] [address] [place] [address] SPECIFIC GRAVITY [place] 1.025 Normal 1.003-1.035 [facility] Comment on above: Performed By: #### N UM #### [facility] ([id number]) [address] [place] [address]7685 UROBILINOGEN [place] 2.0 eu/dL High <1.1 [facility] Comment on above: Performed By: #### N #### [facility] ([id number]) [address] [facility][NOTE 3], [place] [address] SARS/FLU A+B/RSV by NAAT/Mol ecularon 08-14-2023 SARS/FLU [...] operators who are performing tests using either StudyMax DX or [employer] Mobile Guides systems and is limited to laboratories that [...] repeat. Fact Sheet for Healthcare Providers: https://www.fda.gov /media/713772/downl oad Fact Sheet for Patients: https://www.fda.gov /media/173576/downl oad Normal [facility] Comment on above: Performed By: #### C OVFLR #### [facility] ([id number]) [address] [place] [address], [place] [address] VITAMIN B1-THIAMINE WHOLE BL Don 12-20-2022 VITAMIN B1-THIAMINE WHOLE BLD 142.2 nmol/L Normal 66.5-200.0 [facility] Comment on above: Order Comment: FAX R ESULTS TO DR FLORENCE: [phone] Result Comment: This test was developed and its performance characteristics determined by [employer]. It has not been cleared or approved by the Food and Drug Administration. Performed at: [address] [id number] Certified Prosthetist Vice President: Estuardo Michelle MD, Phone: [phone] This test was developed and its performance characteristics determined by [employer]. It has not been cleared or approved by the Food and Drug Administration. Performed By: #### V ITB1, ZINC #### [facility] [address] [place] [address] #### B12, FOL, CMP, PREALB, ANDREZ, CBCD #### [facility] [address] [place] [address] ZINC, PLASMAon 12-18-2022 ZINC, PLASMA 86 ug/dL Normal 44-115 [facility] Comment on above: Order Comment: FAX R ESULTS TO DR FLORENCE: [phone] Result Comment: This test was developed and its performance characteristics determined by [employer]. It has not been cleared or approved by the Food and Drug Administration. Detection Limit = 5 Performed at: [address] [id number] Certified Prosthetist Vice President: Estuardo Michelle MD, Phone: [phone] This test was developed and its performance characteristics determined by [employer]. It has not been cleared or approved by the Food and Drug Administration. Performed By: #### V ITB1, ZINC #### [facility] [address] [place] [address] #### B12, FOL, CMP, PREALB, ANDREZ, CBCD #### [facility] [address] [place] [address] CBC with DIFFERENTIALon 11-29 Basophils (Bld) [#/Vol] 0.0 10*3/uL Normal 0.0-0.1 [facility] Comment on above: Order Comment: FAX R ESULTS TO DR FLORENCE: [phone] Performed By: #### V ITB1, ZINC #### [facility] [address] [place] [address] #### B12, FOL, CMP, PREALB, ANDREZ, CBCD #### [facility] [address] [place] [address] Basophils/100 WBC (Bld) 0.5 % Normal 0.0-1.0 [facility] Comment on above: Order Comment: FAMaximo R STIVENULTS TO DR FLORENCE: [phone] Performed By: #### V ITB1, ZINC #### [facility] [address] [place] [address] #### B12, FOL, CMP, PREALB, ANDREZ, CBCD #### [facility] [address] [place] [address] Eosinophils (Bld) [#/Vol] 0.4 10*3/uL Normal 0.0-0.4 [facility] Comment on above: Order Comment: FAX R ESULTS TO DR FLORENCE: [phone] Performed By: #### V ITB1, ZINC #### [facility] [address] [place] [address] #### B12, FOL, CMP, PREALB, ANDREZ, CBCD #### [facility] [address] [place] [address] Eosinophils/100 WBC (Bld) 4.8 % High 1.0-4.0 [facility] Comment on above: Order Comment: FAX R ESULTS TO DR FLORENCE: [phone] Performed By: #### V ITB1, ZINC #### [facility] [address] [place] [address] #### B12, FOL, CMP, PREALB, ANDREZ, CBCD #### [facility] [address] [place] [address] Hematocrit (Bld) [Volume fraction] 41.9 % Normal 37.0-47.0 [facility] Comment on above: Order Comment: JENNIFER SALEEMULTS TO DR FLORENCE: Performed By: #### V ITB1, ZINC #### [facility] [address] [place] [address] #### B12, FOL, CMP, PREALB, ANDREZ, CBCD #### [facility] [address] [place] [address] Hemoglobin (Bld) [Mass/Vol] 13.8 g/dL Normal 12.0-16.0 [facility] Comment on above: Order Comment: JENNIFER COLIN TO DR FLORENCE: Performed By: #### V ITB1, ZINC #### [facility] [address] [place] [address] #### B12, FOL, CMP, PREALB, ANDREZ, CBCD #### [facility] [address] [place] [address] IG # 0.0 10*3/uL Normal 0.0-0.1 [facility] Comment on above: Order Comment: JENNIFER COLIN TO DR FLORENCE: Performed By: #### V ITB1, ZINC #### [facility] [address] [place] [address] #### B12, FOL, CMP, PREALB, ANDREZ, CBCD #### [facility] [address] [place] [address] IG % 0.4 % Normal 0.0-1.0 [facility] Comment on above: Order Comment: JENNIFER COLIN TO DR FLORENCE: Performed By: #### V ITB1, ZINC #### [facility] [address] [place] [address] #### B12, FOL, CMP, PREALB, ANDREZ, CBCD #### [facility] [address] [place] [address] Lymphocytes (Bld) [#/Vol] 3.8 10*3/uL Normal 1.3-4.4 [facility] Comment on above: Order Comment: FAX R ESULTS TO DR FLORENCE: Performed By: #### V ITB1, ZINC #### [facility] [address] [place] [address] #### B12, FOL, CMP, PREALB, ANDREZ, CBCD #### [facility] [address] [place] [address] Lymphocytes/100 WBC (Bld) 45.5 % High 27.0-41.0 [facility] Comment on above: Order Comment: FAX R ESULTS TO DR FLORENCE: Performed By: #### V ITB1, ZINC #### [facility] [address] [place] [address] #### B12, FOL, CMP, PREALB, ANDREZ, CBCD #### [facility] [address] [place] [address] MCV (RBC) [Entitic vol] 89.3 fL Normal 81.0-99.0 [facility] Comment on above: Order Comment: FAX R ESULTS TO DR FLORENCE: Performed By: #### V ITB1, ZINC #### [facility] [address] [place] [address] #### B12, FOL, CMP, PREALB, ANDREZ, CBCD #### [facility] [address] [place] [address] MEAN CORPUSCULAR HGB 29.4 pg Normal 27.0-31.0 [facility] Comment on above: Order Comment: FAX R ESULTS TO DR FLORENCE: Performed By: #### V ITB1, ZINC #### [facility] [address] [place] [address] #### B12, FOL, CMP, PREALB, ANDREZ, CBCD #### [facility] [address] [place] [address] MEAN CORPUSCULAR HGB CONC 32.9 g/dl Low 33.0-37.0 [facility] Comment on above: Order Comment: FAMaximo R STIVENULTS TO DR FLORENCE: Performed By: #### V ITB1, ZINC #### [facility] [address] [place] [address] #### B12, FOL, CMP, PREALB, ANDREZ, CBCD #### [facility] [address] [place] [address] Monocytes (Bld) [#/Vol] 0.4 10*3/uL Normal 0.1-1.0 [facility] Comment on above: Order Comment: JENNIFER R STIVENULTS TO DR FLORENCE: Performed By: #### V ITB1, ZINC #### [facility] [address] [place] [address] #### B12, FOL, CMP, PREALB, ANDREZ, CBCD #### [facility] [address] [place] [address] Monocytes/100 WBC (Bld) 4.3 % Normal 3.0-9.0 [facility] Comment on above: Order Comment: JENNIFER COLIN TO DR FOLRENCE: Performed By: #### V ITB1, ZINC #### [facility] [address] [place] [address] #### B12, FOL, CMP, PREALB, ANDREZ, CBCD #### [facility] [address] [place] [address] Neutrophils (Bld) [#/Vol] 3.7 10*3/uL Normal 2.3-7.9 [facility] Comment on above: Order Comment: JENNIFER R CRISTI TO DR FLORENCE: Performed By: #### V ITB1, ZINC #### [facility] [address] [place] [address] #### B12, FOL, CMP, PREALB, ANDREZ, CBCD #### [facility] [address] [place] [address] Neutrophils/100 WBC (Bld) 44.5 % Low 47.0-73.0 [facility] Comment on above: Order Comment: FAX R ESULTS TO DR FLORENCE: Performed By: #### V ITB1, ZINC #### [facility] [address] [place] [address] #### B12, FOL, CMP, PREALB, ANDREZ, CBCD #### [facility] [address] [place] [address] NUCLEATED RED BLOOD CELL 0.0 10*3/uL Normal 0.0-0.0 [facility] Comment on above: Order Comment: FAX R ESULTS TO DR FLORENCE: Performed By: #### V ITB1, ZINC #### [facility] [address] [place] [address] #### B12, FOL, CMP, PREALB, ANDREZ, CBCD #### [facility] [address] [place] [address] NUCLEATED RED BLOOD CELL 0.0 % Normal 0.0-0.0 [facility] Comment on above: Order Comment: FAX R ESULTS TO DR FLORENCE: Performed By: #### V ITB1, ZINC #### [facility] [address] [place] [address] #### B12, FOL, CMP, PREALB, ANDREZ, CBCD #### [facility] [address] [place] [address]48[address] PLATELET COUNT AUTOMATED 277 10*3/uL Normal 130-400 [facility] Comment on above: Order Comment: FAX R ESULTS TO DR FLORENCE: Performed By: #### V ITB1, ZINC #### [facility] [address] [place] [address] #### B12, FOL, CMP, PREALB, ANDREZ, CBCD #### [facility] [address] [place] [address] Platelet mean volume (Bld) [Entitic vol] 11.2 fL Normal 9.6-12.3 [facility] Comment on above: Order Comment: FAMaximo R CRISTI TO DR FLORENCE: [phone] Performed By: #### V ITB1, ZINC #### [facility] [address] [place] [address] #### B12, FOL, CMP, PREALB, ANDREZ, CBCD #### [facility] [address] [place] [address] RBC (Bld) [#/Vol] 4.69 10*6/uL Normal 4.10-5.10 [facility] Comment on above: Order Comment: JENNIFER COLIN TO DR FLORENCE: [phone] Performed By: #### V ITB1, ZINC #### [facility] [address] [place] [address] #### B12, FOL, CMP, PREALB, ANDREZ, CBCD #### [facility] [address] [place] [address] RED CELL DISTRI WIDTH 13.5 % Normal 0-14.5 [facility] Comment on above: Order Comment: JENNIFER COLIN TO DR FLORENCE: [phone] Performed By: #### V ITB1, ZINC #### [facility] [address] [place] [address] #### B12, FOL, CMP, PREALB, ANDREZ, CBCD #### [facility] [address] [place] [address] WBC (Bld) [#/Vol] 8.3 10*3/uL Normal 4.8-10.8 [facility] Comment on above: Order Comment: JENNIFER COLIN TO DR FLORENCE: [phone] Performed By: #### V ITB1, ZINC #### [facility] [address] [place] [address] #### B12, FOL, CMP, PREALB, ANDREZ, CBCD #### [facility] [address] [place] [address] COMPREHENSIVE METABOLIC PANE Evan 12-14-2022 Albumin [Mass/Vol] 3.8 g/dL Normal 3.4-5.0 [facility] Comment on above: Order Comment: FAX R ESULTS TO DR FLORENCE: [phone] Performed By: #### V ITB1, ZINC #### [facility] [address] [place] [address] #### B12, FOL, CMP, PREALB, ANDREZ, CBCD #### [facility] [address] [place] [address]34 ALP [Catalytic activity/Vol] 74 U/L Normal 46-116 [facility] Comment on above: Order Comment: JENNIFER R STIVENULTS TO DR FLORENCE: [phone] Performed By: #### V ITB1, ZINC #### [facility] [address] [place] [address] #### B12, FOL, CMP, PREALB, ANDREZ, CBCD #### [facility] [address] [place] [address] ALT [Catalytic activity/Vol] 34 U/L Normal 10-49 [facility] Comment on above: Order Comment: JENNIFER R CRISTI TO DR FLORENCE: [phone] Performed By: #### V ITB1, ZINC #### [facility] [address] [place] [address] #### B12, FOL, CMP, PREALB, ANDREZ, CBCD #### [facility] [address] [place] [address] AST [Catalytic activity/Vol] 19 U/L Normal 0-34 [facility] Comment on above: Order Comment: JENNIFER R CRISTI TO DR FLORENCE: [phone] Performed By: #### V ITB1, ZINC #### [facility] [address] [place] [address] #### B12, FOL, CMP, PREALB, ANDREZ, CBCD #### [facility] [address] [place] [address] Bilirubin [Mass/Vol] 0.3 mg/dL Normal 0.3-1.2 [facility] Comment on above: Order Comment: FAX R ESULTS TO DR FLORENCE: [phone] Performed By: #### V ITB1, ZINC #### [facility] [address] [place] [address] #### B12, FOL, CMP, PREALB, ANDREZ, CBCD #### [facility] [address] [place] [address] CALCIUM,TOTAL 9.0 md/dL Normal 8.7-10.4 [facility] Comment on above: Order Comment: FAX R ESULTS TO DR FLORENCE: [phone] Performed By: #### V ITB1, ZINC #### [facility] [address] [place] [address] #### B12, FOL, CMP, PREALB, ANDREZ, CBCD #### [facility] [address] [place] [address] Chloride [Moles/Vol] 109 mmol/L High 98-107 [facility] Comment on above: Order Comment: FAX R ESULTS TO DR FLORENCE: [phone] Performed By: #### V ITB1, ZINC #### [facility] [address] [place] [address] #### B12, FOL, CMP, PREALB, ANDREZ, CBCD #### [facility] [address] [place] [address] CO2 [Moles/Vol] 27 mmol/L Normal 20-31 [facility] Comment on above: Order Comment: FAX R ESULTS TO DR FLORENCE: [phone] Performed By: #### V ITB1, ZINC #### [facility] [address] [place] [address] #### B12, FOL, CMP, PREALB, ANDREZ, CBCD #### [facility] [address] [place] [address] Creatinine [Mass/Vol] 0.62 mg/dL Normal 0.55-1.02 [facility] Comment on above: Order Comment: FAX R ESULTS TO DR FLORENCE: [phone] Performed By: #### V ITB1, ZINC #### [facility] [address] [place] [address] #### B12, FOL, CMP, PREALB, ANDREZ, CBCD #### [facility] [address] [place] [address] EST GLOM FILT > 60 Normal [facility] Comment on above: Order Comment: FAX R ESULTS TO DR FLORENCE: [phone] Result Comment: Result Units: mL/min/1.73 m2 Note: [...] #### V ITB1, ZINC #### [facility] [address] [place] [address] #### B12, FOL, CMP, PREALB, ANDREZ, CBCD #### [facility] [address] [place] [address] ESTIMATED GLOM FILT RATE > 60 Normal [facility] Comment on above: Order Comment: FAX R ESULTS TO DR FLORENCE: [phone] Performed By: #### V ITB1, ZINC #### [facility] [address] [place] [address] #### B12, FOL, CMP, PREALB, ANDREZ, CBCD #### [facility] [address] [place] [address] Glucose [Mass/Vol] 103 mg/dL High 65-99 [facility] Comment on above: Order Comment: FAX R ESULTS TO DR FLORENCE: Performed By: #### V ITB1, ZINC #### [facility] [address] [place] [address] #### B12, FOL, CMP, PREALB, ANDREZ, CBCD #### [facility] [address] [place] [address] Potassium [Moles/Vol] 3.6 mmol/L Normal 3.4-5.1 [facility] Comment on above: Order Comment: FAX R ESULTS TO DR FLORENCE: Performed By: #### V ITB1, ZINC #### [facility] [address] [place] [address] #### B12, FOL, CMP, PREALB, ANDREZ, CBCD #### [facility] [address] [place] [address] Protein [Mass/Vol] 6.5 g/dL Normal 6.0-8.0 [facility] Comment on above: Order Comment: FAX R ESULTS TO DR FLORENCE: Performed By: #### V ITB1, ZINC #### [facility] [address] [place] [address] #### B12, FOL, CMP, PREALB, ANDREZ, CBCD #### [facility] [address] [place] [address] Sodium [Moles/Vol] 138 mmol/L Normal 136-145 [facility] Comment on above: Order Comment: FAX R ESULTS TO DR FLORENCE: Performed By: #### V ITB1, ZINC #### [facility] [address] [place] [address] #### B12, FOL, CMP, PREALB, ANDREZ, CBCD #### [facility] [address] [place] [address] Urea nitrogen [Mass/Vol] 8 mg/dL Low 9-23 [facility] Comment on above: Order Comment: FAMaximo R STIVENULTS TO DR FLORENCE: [phone] Performed By: #### V ITB1, ZINC #### [facility] [address] [place] [address] #### B12, FOL, CMP, PREALB, ANDREZ, CBCD #### [facility] [address] [place] [address] FERRITINon 12-14-2022 Ferritin [Mass/Vol] 40.9 ng/mL Normal 7.3-307.3 [facility] Comment on above: Order Comment: FAX R STIVENULTS TO DR FLORENCE: [phone] Performed By: #### V ITB1, ZINC #### [facility] [address] [place] [address] #### B12, FOL, CMP, PREALB, ANDREZ, CBCD #### [facility] [address] [place] [address] FOLIC ACIDon 12-14-2022 FOLIC ACID 16.04 ng/mL Normal 5.38-24.00 [facility] Comment on above: Order Comment: JENNIFER R STIVENULTS TO DR FLORENCE: [phone] Result Comment: 0.35 - 3.7 ng/mL - Folate Deficiency 3.38 - 5.38 ng/mL - Indeterminate > 5.38 ng/mL - Normal Performed By: #### V ITB1, ZINC #### [facility] [address] [place] [address] #### B12, FOL, CMP, PREALB, ANDREZ, CBCD #### [facility] [address] [place] [address] PREALBUMINon 12-14-2022 Prealbumin [Mass/Vol] 16 mg/dL Normal 10-40 [facility] Comment on above: Order Comment: FAX R ESULTS TO DR FLORENCE: [phone] Performed By: #### V ITB1, ZINC #### [facility] [address] [place] [address] #### B12, FOL, CMP, PREALB, ANDREZ, CBCD #### [facility] [address] [place] [address] VITAMIN B12on 12-14-2022 Cobalamin (Vitamin B12) [Mass/Vol] 261 pg/mL Normal 211-911 [facility] Comment on above: Order Comment: FAX R CRISTI TO DR FLORENCE: [phone] Result Comment: 247 - 911 pg/mL - Normal, Vitamin B12 Sufficiency Performed By: #### V ITB1, ZINC #### [facility] [address] [place] [address] #### B12, FOL, CMP, PREALB, ANDREZ, CBCD #### [facility] [address] [place] [address] CBC with DIFFERENTIALon Basophils (Bld) [#/Vol] 0.0 10*3/uL Normal 0.0-0.1 [facility] Comment on above: Performed By: #### V ITB1, ZINC #### [facility] [address] [place] [address] #### B12, FOL, CMP, PREALB, ANDREZ, CBCD #### [facility] [address] [place] [address] Basophils/100 WBC (Bld) 0.6 % Normal 0.0-1.0 [facility] Comment on above: Performed By: #### V ITB1, ZINC #### [facility] [address] [place] [address] #### B12, FOL, CMP, PREALB, ANDREZ, CBCD #### [facility] [address] [place] [address] Eosinophils (Bld) [#/Vol] 0.4 10*3/uL Normal 0.0-0.4 [facility] Comment on above: Performed By: #### V ITB1, ZINC #### [facility] [address] [place] [address] #### B12, FOL, CMP, PREALB, ANDREZ, CBCD #### [facility] [address] [place] [address] Eosinophils/100 WBC (Bld) 6.0 % High 1.0-4.0 [facility] Comment on above: Performed By: #### V ITB1, ZINC #### [facility] [address] [place], [place] [id number] #### B12, FOL, CMP, PREALB, ANDREZ, CBCD #### [facility] [address] [place] [address] Hematocrit (Bld) [Volume fraction] 42.2 % Normal 37.0-47.0 [facility] Comment on above: Performed By: #### V ITB1, ZINC #### [facility] [address] [place] [address] #### B12, FOL, CMP, PREALB, ANDREZ, CBCD #### [facility] [address] [place] [address] Hemoglobin (Bld) [Mass/Vol] 14.0 g/dL Normal 12.0-16.0 [facility] Comment on above: Performed By: #### V ITB1, ZINC #### [facility] [address] [place] [address] #### B12, FOL, CMP, PREALB, ANDREZ, CBCD #### [facility] [address] [place] [id number] IG # 0.0 10*3/uL Normal 0.0-0.1 [facility] Comment on above: Performed By: #### V ITB1, ZINC #### [facility] [address] [place] [address] #### B12, FOL, CMP, PREALB, ANDREZ, CBCD #### [facility] [address] [place] [id number] IG % 0.2 % Normal 0.0-1.0 [facility] Comment on above: Performed By: #### V ITB1, ZINC #### [facility] [address] [place] [address] #### B12, FOL, CMP, PREALB, ANDREZ, CBCD #### [facility] [address] [place] [address] 13824 Lymphocytes (Bld) [#/Vol] 3.4 10*3/uL Normal 1.3-4.4 [facility] Comment on above: Performed By: #### V ITB1, ZINC #### [facility] [address] [place] [address] #### B12, FOL, CMP, PREALB, ANDREZ, CBCD #### [facility] [address] [place] [address] 80604 Lymphocytes/100 WBC (Bld) 53.6 % High 27.0-41.0 [facility] Comment on above: Performed By: #### V ITB1, ZINC #### [facility] [address] #### B12, FOL, CMP, PREALB, ANDREZ, CBCD #### [facility] [address] [place] [address] 82952 MCV (RBC) [Entitic vol] 88.5 fL Normal 81.0-99.0 [facility] Comment on above: Performed By: #### V ITB1, ZINC #### [facility] [address] [place] [address] #### B12, FOL, CMP, PREALB, ANDREZ, CBCD #### [facility] [address] [place] [address] 90036 MEAN CORPUSCULAR HGB 29.4 pg Normal 27.0-31.0 [facility] Comment on above: Performed By: #### V ITB1, ZINC #### [facility] [address] [place] [address] #### B12, FOL, CMP, PREALB, ANDREZ, CBCD #### [facility] [address] [place] [address] 00450 MEAN CORPUSCULAR HGB CONC 33.2 g/dl Normal 33.0-37.0 [facility] Comment on above: Performed By: #### V ITB1, ZINC #### [facility] [address] [place] [address] #### B12, FOL, CMP, PREALB, ANDREZ, CBCD #### [facility] [address] [place] [address] Monocytes (Bld) [#/Vol] 0.3 10*3/uL Normal 0.1-1.0 [facility] Comment on above: Performed By: #### V ITB1, ZINC #### [facility] [address] [place] [address] #### B12, FOL, CMP, PREALB, ANDREZ, CBCD #### [facility] [address] [place] [address] 87706 Monocytes/100 WBC (Bld) 4.8 % Normal 3.0-9.0 [facility] Comment on above: Performed By: #### V ITB1, ZINC #### [facility] [address] [place] [address] #### B12, FOL, CMP, PREALB, ANDREZ, CBCD #### [facility] [address] [place] [address] 67031 Neutrophils (Bld) [#/Vol] 2.2 10*3/uL Low 2.3-7.9 [facility] Comment on above: Performed By: #### V ITB1, ZINC #### [facility] [address] [place] [address] #### B12, FOL, CMP, PREALB, ANDREZ, CBCD #### [facility] [address] [place] [address] 03717 Neutrophils/100 WBC (Bld) 34.8 % Low 47.0-73.0 [facility] Comment on above: Performed By: #### V ITB1, ZINC #### [facility] [address] [place] [address] #### B12, FOL, CMP, PREALB, ANDREZ, CBCD #### [facility] [address] [place] [address] 41899 NUCLEATED RED BLOOD CELL 0.0 10*3/uL Normal 0.0-0.0 [facility] Comment on above: Performed By: #### V ITB1, ZINC #### [facility] [address] [place] [address] #### B12, FOL, CMP, PREALB, ANDREZ, CBCD #### [facility] [address] [place], [place] [address] NUCLEATED RED BLOOD CELL 0.0 % Normal 0.0-0.0 [facility] Comment on above: Performed By: #### V ITB1, ZINC #### [facility] [address] [place] [address] #### B12, FOL, CMP, PREALB, ANDREZ, CBCD #### [facility] [address] [place] [address] PLATELET COUNT AUTOMATED 265 10*3/uL Normal 130-400 [facility] Comment on above: Performed By: #### V ITB1, ZINC #### [facility] [address] #### B12, FOL, CMP, PREALB, ANDREZ, CBCD #### [facility] [address] [place] [address] 53630 Platelet mean volume (Bld) [Entitic vol] 11.3 fL Normal 9.6-12.3 [facility] Comment on above: Performed By: #### V ITB1, ZINC #### [facility] [address] [place] [address] #### B12, FOL, CMP, PREALB, ANDREZ, CBCD #### [facility] [address] [place] [address] RBC (Bld) [#/Vol] 4.77 10*6/uL Normal 4.10-5.10 [facility] Comment on above: Performed By: #### V ITB1, ZINC #### [facility] [address] [place] [address] #### B12, FOL, CMP, PREALB, ANDREZ, CBCD #### [facility] [address] [place] [address] 93095 RED CELL DISTRI WIDTH 13.9 % Normal 0-14.5 [facility] Comment on above: Performed By: #### V ITB1, ZINC #### [facility] [address] [place] [address] #### B12, FOL, CMP, PREALB, ANDREZ, CBCD #### [facility] [address] [place] [address] 62479 WBC (Bld) [#/Vol] 6.3 10*3/uL Normal 4.8-10.8 [facility] Comment on above: Performed By: #### V ITB1, ZINC #### [facility] [address] [place] [address] #### B12, FOL, CMP, PREALB, ANDREZ, CBCD #### [facility] [address] [place] [address] 38858 COMPREHENSIVE METABOLIC PANE Evan 12-03-2022 Albumin [Mass/Vol] 4.0 g/dL Normal 3.4-5.0 [facility] Comment on above: Performed By: #### V ITB1, ZINC #### [facility] [address] [place] [address] #### B12, FOL, CMP, PREALB, ANDREZ, CBCD #### [facility] [address] [place] [address] 98871 ALP [Catalytic activity/Vol] 69 U/L Normal 46-116 [facility] Comment on above: Performed By: #### V ITB1, ZINC #### [facility] [address] [place] [address] #### B12, FOL, CMP, PREALB, ANDREZ, CBCD #### [facility] [address] [place] [address] 66415 ALT [Catalytic activity/Vol] 79 U/L High 10-49 [facility] Comment on above: Performed By: #### V ITB1, ZINC #### [facility] [address] [place] [address] #### B12, FOL, CMP, PREALB, ANDREZ, CBCD #### [facility] [address] [place] [address] AST [Catalytic activity/Vol] 31 U/L Normal 0-34 [facility] Comment on above: Performed By: #### V ITB1, ZINC #### [facility] [address] [place] [address] #### B12, FOL, CMP, PREALB, ANDREZ, CBCD #### [facility] [address] [place] [address] 44231 Bilirubin [Mass/Vol] 0.4 mg/dL Normal 0.3-1.2 [facility] Comment on above: Performed By: #### V ITB1, ZINC #### [facility] [address] [place] [address] #### B12, FOL, CMP, PREALB, ANDREZ, CBCD #### [facility] [address] [place] [address] 34298 CALCIUM,TOTAL 9.1 md/dL Normal 8.7-10.4 [facility] Comment on above: Performed By: #### V ITB1, ZINC #### [facility] [address] [place] [address] #### B12, FOL, CMP, PREALB, ANDREZ, CBCD #### [facility] [address] [place] [address] Chloride [Moles/Vol] 109 mmol/L High 98-107 [facility] Comment on above: Performed By: #### V ITB1, ZINC #### [facility] [address] [place] [address] #### B12, FOL, CMP, PREALB, ANDREZ, CBCD #### [facility] [address] [place] [address] CO2 [Moles/Vol] 25 mmol/L Normal 20-31 [facility] Comment on above: Performed By: #### V ITB1, ZINC #### [facility] [address] [place] [address] #### B12, FOL, CMP, PREALB, ANDREZ, CBCD #### [facility] [address] [place] [address] Creatinine [Mass/Vol] 0.56 mg/dL Normal 0.55-1.02 [facility] Comment on above: Performed By: #### V ITB1, ZINC #### [facility] [address] [place] [address] #### B12, FOL, CMP, PREALB, ANDREZ, CBCD #### [facility] [address] [place] [address] EST GLOM FILT > 60 Normal [facility] Comment on above: Result Comment: Result Units: [...] #### V ITB1, ZINC #### [facility] [address] [place] [address] #### B12, FOL, CMP, PREALB, ANDREZ, CBCD #### [facility] [address] [place] [address] ESTIMATED GLOM FILT RATE > 60 Normal [facility] Comment on above: Performed By: #### V ITB1, ZINC #### [facility] [address] [place] [address] #### B12, FOL, CMP, PREALB, ANDREZ, CBCD #### [facility] [address] [place] [address] Glucose [Mass/Vol] 103 mg/dL High 65-99 [facility] Comment on above: Performed By: #### V ITB1, ZINC #### [facility] [address] [place] [address] #### B12, FOL, CMP, PREALB, ANDREZ, CBCD #### [facility] [address] [place] [address] 50324 Potassium [Moles/Vol] 3.8 mmol/L Normal 3.4-5.1 [facility] Comment on above: Performed By: #### V ITB1, ZINC #### [facility] [address] [place] [address] #### B12, FOL, CMP, PREALB, ANDREZ, CBCD #### [facility] [address] [place] [address] 87641 Protein [Mass/Vol] 6.7 g/dL Normal 6.0-8.0 [facility] Comment on above: Performed By: #### V ITB1, ZINC #### [facility] [address] [place] [address] #### B12, FOL, CMP, PREALB, ANDREZ, CBCD #### [facility] [address] [place] [address] 75266 Sodium [Moles/Vol] 141 mmol/L Normal 136-145 [facility] Comment on above: Performed By: #### V ITB1, ZINC #### [facility] [address] [place] [address] #### B12, FOL, CMP, PREALB, ANDREZ, CBCD #### [facility] [address] [place] [address] 89005 Urea nitrogen [Mass/Vol] 10 mg/dL Normal 9-23 [facility] Comment on above: Performed By: #### V ITB1, ZINC #### [facility] [address] #### B12, FOL, CMP, PREALB, ANDREZ, CBCD #### [facility] [address] [place] [address] [id number] 12-03-2022 ESTIMATED AVERAGE GLUCOSE 94 Normal [facility] Comment on above: Performed By: #### V ITB1, ZINC #### [facility] [address] #### B12, FOL, CMP, PREALB, ANDREZ, CBCD #### [facility] [address] [place] [address] HbA1c (Bld) [Mass fraction] 4.9 % Normal 4.8-5.6 [facility] Comment on above: Result Comment: Standarization of method based on National Glycohemoglobin Standardization Program (NGSP). HEMOGLOBIN A1c(%) DEGREE of GLUCOSE CONTROL 5.7-6.4% Prediabetes range >6.4% Diagnosis of Diabetes <7% Glycemic control for adults with Diabetes Performed By: #### V ITB1, ZINC #### [facility] [address] #### B12, FOL, CMP, PREALB, ANDREZ, CBCD #### [facility] [address] [place] [address] 61412 INSULINon 12-03-2022 INSULIN 14.2 mU/L Normal 2.6-37.6 [facility] Comment on above: Performed By: #### V ITB1, ZINC #### [facility] [address] [place] [address] #### B12, FOL, CMP, PREALB, ANDREZ, CBCD #### [facility] [address] [place] [address] LIPID PANEL CHOLESTEROL/HDLo n 12-03-2022 Cholesterol [Mass/Vol] 113 mg/dL Normal <200 [facility] Comment on above: Performed By: #### V ITB1, ZINC #### [facility] [address] [place] [address] #### B12, FOL, CMP, PREALB, ANDREZ, CBCD #### [facility] [address] [place] [address] Cholesterol in HDL [Mass/Vol] 26 mg/dL Low 40-60 [facility] Comment on above: Performed By: #### V ITB1, ZINC #### [facility] [address] [place] [address] #### B12, FOL, CMP, PREALB, ANDREZ, CBCD #### [facility] [address] [place] [address] 49247 Cholesterol in LDL [Mass/Vol] 52 mg/dL Normal 9-159 [facility] Comment on above: Performed By: #### V ITB1, ZINC #### [facility] [address] [place] [address] #### B12, FOL, CMP, PREALB, ANDREZ, CBCD #### [facility] [address] [place] [address] 84477 Cholesterol.total/Chol esterol in HDL [Mass ratio] 4.3 {ratio} Normal [facility] Comment on above: Performed By: #### V ITB1, ZINC #### [facility] [address] [place] [address] #### B12, FOL, CMP, PREALB, ANDREZ, CBCD #### [facility] [address] [place] [address] Triglyceride [Mass/Vol] 176 mg/dL High <150 [facility] Comment on above: Result Comment: TRIGLYCERIDE RISK ASSESSMENT: 150-199 mg/dl BORDERLINE HIGH >200 mg//dl HIGH . Performed By: #### V ITB1, ZINC #### [facility] [address] [place] [address] #### B12, FOL, CMP, PREALB, ANDREZ, CBCD #### [facility] [address] [place] [address] VLDL CHOLESTEROL 35 mg/dL Normal 6-40 [facility] Comment on above: Performed By: #### V ITB1, ZINC #### [facility] [address] [place] [address] #### B12, FOL, CMP, PREALB, ANDREZ, CBCD #### [facility] [address] [place] [address] CBC with DIFFERENTIALon 050 Basophils (Bld) [#/Vol] 0.0 10*3/uL Normal 0.0-0.1 [facility] Comment on above: Order Comment: FAX R ESULTS TO DR FLORENCE: [phone] Performed By: #### V ITB1, ZINC #### [facility] [address] [place] [address] #### B12, FOL, CMP, PREALB, ANDREZ, CBCD #### [facility] [address] [place] [address] 42863 Basophils/100 WBC (Bld) 0.3 % Normal 0.0-1.0 [facility] Comment on above: Order Comment: FAX R ESULTS TO DR FLORENCE: [phone] Performed By: #### V ITB1, ZINC #### [facility] [address] [place] [address] #### B12, FOL, CMP, PREALB, ANDREZ, CBCD #### [facility] [address] [place] [address] 47767 Eosinophils (Bld) [#/Vol] 0.2 10*3/uL Normal 0.0-0.4 [facility] Comment on above: Order Comment: FAX R ESULTS TO DR FLORENCE: [phone] Performed By: #### V ITB1, ZINC #### [facility] [address] [place] [address] #### B12, FOL, CMP, PREALB, ANDREZ, CBCD #### [facility] [address] [place] [address] Eosinophils/100 WBC (Bld) 3.2 % Normal 1.0-4.0 [facility] Comment on above: Order Comment: FAX R ESULTS TO DR FLORENCE: [phone] Performed By: #### V ITB1, ZINC #### [facility] [address] #### B12, FOL, CMP, PREALB, ANDREZ, CBCD #### [facility] [address] [place] [address] Hematocrit (Bld) [Volume fraction] 43.8 % Normal 37.0-47.0 [facility] Comment on above: Order Comment: FAX R ESULTS TO DR FLORENCE: [phone] Performed By: #### V ITB1, ZINC #### [facility] [address] #### B12, FOL, CMP, PREALB, ANDREZ, CBCD #### [facility] [address] [place] [address] Hemoglobin (Bld) [Mass/Vol] 14.3 g/dL Normal 12.0-16.0 [facility] Comment on above: Order Comment: FAX R ESULTS TO DR FLORENCE: [phone] Performed By: #### V ITB1, ZINC #### [facility] [address] #### B12, FOL, CMP, PREALB, ANDREZ, CBCD #### [facility] [address] [place] [address] IG # 0.1 10*3/uL Normal 0.0-0.1 [facility] Comment on above: Order Comment: FAX R ESULTS TO DR FLORENCE: [phone] Performed By: #### V ITB1, ZINC #### [facility] [address] [place] [address] #### B12, FOL, CMP, PREALB, ANDREZ, CBCD #### [facility] [address] [place] [address] IG % 0.7 % Normal 0.0-1.0 [facility] Comment on above: Order Comment: FAX R ESULTS TO DR FLORENCE: [phone] Performed By: #### V ITB1, ZINC #### [facility] [address] [place] [address] #### B12, FOL, CMP, PREALB, ANDREZ, CBCD #### [facility] [address] [place] [address] Lymphocytes (Bld) [#/Vol] 3.5 10*3/uL Normal 1.3-4.4 [facility] Comment on above: Order Comment: FAX R ESULTS TO DR FLORENCE: [phone] Performed By: #### V ITB1, ZINC #### [facility] [address] #### B12, FOL, CMP, PREALB, ANDREZ, CBCD #### [facility] [address] [place] [address] 25762 Lymphocytes/100 WBC (Bld) 46.7 % High 27.0-41.0 [facility] Comment on above: Order Comment: FAX R ESULTS TO DR FLORENCE: [phone] Performed By: #### V ITB1, ZINC #### [facility] [address] [place] [address] #### B12, FOL, CMP, PREALB, ANDREZ, CBCD #### [facility] [address] [place] [address] 74355 MCV (RBC) [Entitic vol] 88.1 fL Normal 81.0-99.0 [facility] Comment on above: Order Comment: FAX R ESULTS TO DR FLORENCE: [phone] Performed By: #### V ITB1, ZINC #### [facility] [address] [place] [address] #### B12, FOL, CMP, PREALB, ANDREZ, CBCD #### [facility] [address] [place] [address] MEAN CORPUSCULAR HGB 28.8 pg Normal 27.0-31.0 [facility] Comment on above: Order Comment: FAX R ESULTS TO DR FLORENCE: [phone] Performed By: #### V ITB1, ZINC #### [facility] [address] [place] [address] #### B12, FOL, CMP, PREALB, ANDREZ, CBCD #### [facility] [address] [place] [address] MEAN CORPUSCULAR HGB CONC 32.6 g/dl Low 33.0-37.0 [facility] Comment on above: Order Comment: FAX R ESULTS TO DR FLORENCE: [phone] Performed By: #### V ITB1, ZINC #### [facility] [address] [place] [address] #### B12, FOL, CMP, PREALB, ANDREZ, CBCD #### [facility] [address] [place] [address] Monocytes (Bld) [#/Vol] 0.3 10*3/uL Normal 0.1-1.0 [facility] Comment on above: Order Comment: FAX R ESULTS TO DR FLORENCE: [phone] Performed By: #### V ITB1, ZINC #### [facility] [address] [place] [address] #### B12, FOL, CMP, PREALB, ANDREZ, CBCD #### [facility] [address] [place] [address] Monocytes/100 WBC (Bld) 4.3 % Normal 3.0-9.0 [facility] Comment on above: Order Comment: FAX R ESULTS TO DR FLORENCE: [phone] Performed By: #### V ITB1, ZINC #### [facility] [address] [place] [address] #### B12, FOL, CMP, PREALB, ANDREZ, CBCD #### [facility] [address] [place] [address] Neutrophils (Bld) [#/Vol] 3.4 10*3/uL Normal 2.3-7.9 [facility] Comment on above: Order Comment: FAX R ESULTS TO DR FLORENCE: [phone] Performed By: #### V ITB1, ZINC #### [facility] [address] [place] [address] #### B12, FOL, CMP, PREALB, ANDREZ, CBCD #### [facility] [address] [place] [address] Neutrophils/100 WBC (Bld) 44.8 % Low 47.0-73.0 [facility] Comment on above: Order Comment: FAX R ESULTS TO DR FLORENCE: [phone] Performed By: #### V ITB1, ZINC #### [facility] [address] [place] [address] #### B12, FOL, CMP, PREALB, ANDREZ, CBCD #### [facility] [address] [place] [address] NUCLEATED RED BLOOD CELL 0.0 10*3/uL Normal 0.0-0.0 [facility] Comment on above: Order Comment: FAX R ESULTS TO DR FLORENCE: [phone] Performed By: #### V ITB1, ZINC #### [facility] [address] [place] [address] #### B12, FOL, CMP, PREALB, ANDREZ, CBCD #### [facility] [address] [place] [address] 90412 NUCLEATED RED BLOOD CELL 0.0 % Normal 0.0-0.0 [facility] Comment on above: Order Comment: FAX R ESULTS TO DR FLORENCE: [phone] Performed By: #### V ITB1, ZINC #### [facility] [address] [place] [address] #### B12, FOL, CMP, PREALB, ANDREZ, CBCD #### [facility] [address] [place] [address] PLATELET COUNT AUTOMATED 347 10*3/uL Normal 130-400 [facility] Comment on above: Order Comment: FAX R ESULTS TO DR FLORENCE: [phone] Performed By: #### V ITB1, ZINC #### [facility] [address] [place] [address] #### B12, FOL, CMP, PREALB, ANDREZ, CBCD #### [facility] [address] [place] [address] Platelet mean volume (Bld) [Entitic vol] 9.9 fL Normal 9.6-12.3 [facility] Comment on above: Order Comment: FAX R ESULTS TO DR FLORENCE: [phone] Performed By: #### V ITB1, ZINC #### [facility] [address] [place] [address] #### B12, FOL, CMP, PREALB, ANDREZ, CBCD #### [facility] [address] [place] [address] RBC (Bld) [#/Vol] 4.97 10*6/uL Normal 4.10-5.10 [facility] Comment on above: Order Comment: FAX R ESULTS TO DR FLORENCE: [phone] Performed By: #### V ITB1, ZINC #### [facility] [address] [place] [address] #### B12, FOL, CMP, PREALB, ANDREZ, CBCD #### [facility] [address] [place] [address] 26731 RED CELL DISTRI WIDTH 13.2 % Normal 0-14.5 [facility] Comment on above: Order Comment: FAX R ESULTS TO DR FLORENCE: [phone] Performed By: #### V ITB1, ZINC #### [facility] [address] [place] [address] #### B12, FOL, CMP, PREALB, ANDREZ, CBCD #### [facility] [address] [place] [address] WBC (Bld) [#/Vol] 7.5 10*3/uL Normal 4.8-10.8 [facility] Comment on above: Order Comment: FAX R ESULTS TO DR FLORENCE: [phone] Performed By: #### V ITB1, ZINC #### [facility] [address] [place] [address] #### B12, FOL, CMP, PREALB, ANDREZ, CBCD #### [facility] [address] [place] [address] COMPREHENSIVE METABOLIC PANE Evan 11-06-2022 Albumin [Mass/Vol] 4.2 g/dL Normal 3.4-5.0 [facility] Comment on above: Order Comment: FAX R ESULTS TO DR FLORENCE: [phone] Performed By: #### V ITB1, ZINC #### [facility] [address] [place] [address] #### B12, FOL, CMP, PREALB, ANDREZ, CBCD #### [facility] [address] [place] [address] ALP [Catalytic activity/Vol] 59 U/L Normal 46-116 [facility] Comment on above: Order Comment: FAX R ESULTS TO DR FLORENCE: [phone] Performed By: #### V ITB1, ZINC #### [facility] [address] [place] [address] #### B12, FOL, CMP, PREALB, ANDREZ, CBCD #### [facility] [address] [place] [address] ALT [Catalytic activity/Vol] 30 U/L Normal 10-49 [facility] Comment on above: Order Comment: FAX R ESULTS TO DR FLORENCE: [phone] Performed By: #### V ITB1, ZINC #### [facility] [address] [place] [address] #### B12, FOL, CMP, PREALB, ANDREZ, CBCD #### [facility] [address] [place] [address] AST [Catalytic activity/Vol] 20 U/L Normal 0-34 [facility] Comment on above: Order Comment: FAX R ESULTS TO DR FLORENCE: [phone] Performed By: #### V ITB1, ZINC #### [facility] [address] [place] [address] #### B12, FOL, CMP, PREALB, ANDREZ, CBCD #### [facility] [address] [place] [address] Bilirubin [Mass/Vol] 0.5 mg/dL Normal 0.3-1.2 [facility] Comment on above: Order Comment: FAX R ESULTS TO DR FLORENCE: [phone] Performed By: #### V ITB1, ZINC #### [facility] [address] [place] [address] #### B12, FOL, CMP, PREALB, ANDREZ, CBCD #### [facility] [address] [place] [address] CALCIUM,TOTAL 9.3 md/dL Normal 8.7-10.4 [facility] Comment on above: Order Comment: FAX R ESULTS TO DR FLORENCE: [phone] Performed By: #### V ITB1, ZINC #### [facility] [address] [place] [address] #### B12, FOL, CMP, PREALB, ANDREZ, CBCD #### [facility] [address] [place] [address] Chloride [Moles/Vol] 103 mmol/L Normal 98-107 [facility] Comment on above: Order Comment: FAX R ESULTS TO DR FLORENCE: [phone] Performed By: #### V ITB1, ZINC #### [facility] [address] [place] [address] #### B12, FOL, CMP, PREALB, ANDREZ, CBCD #### [facility] [address] [place] [id number] CO2 [Moles/Vol] 23 mmol/L Normal 20-31 [facility] Comment on above: Order Comment: FAX R ESULTS TO DR FLORENCE: [phone] Performed By: #### V ITB1, ZINC #### [facility] [address] [place] [address] #### B12, FOL, CMP, PREALB, ANDREZ, CBCD #### [facility] [address] [place] [address] Creatinine [Mass/Vol] 0.58 mg/dL Normal 0.55-1.02 [facility] Comment on above: Order Comment: FAX R ESULTS TO DR FLORENCE: [phone] Performed By: #### V ITB1, ZINC #### [facility] [address] [place] [address] #### B12, FOL, CMP, PREALB, ANDREZ, CBCD #### [facility] [address] [place] [address] EST GLOM FILT > 60 Normal [facility] Comment on above: Order Comment: FAX R ESULTS TO DR FLORENCE: [phone] Result Comment: Result Units: mL/min/1.73 m2 Note: [...] #### V ITB1, ZINC #### [facility] [address] [place] [address] #### B12, FOL, CMP, PREALB, ANDREZ, CBCD #### [facility] [address] [place] [address] ESTIMATED GLOM FILT RATE > 60 Normal [facility] Comment on above: Order Comment: FAX R ESULTS TO DR FLORENCE: Performed By: #### V ITB1, ZINC #### [facility] [address] [place] [address] #### B12, FOL, CMP, PREALB, ANDREZ, CBCD #### [facility] [address] [place] [address] Glucose [Mass/Vol] 92 mg/dL Normal 65-99 [facility] Comment on above: Order Comment: FAX R ESULTS TO DR FLORENCE: Performed By: #### V ITB1, ZINC #### [facility] [address] [place] [address] #### B12, FOL, CMP, PREALB, ANDREZ, CBCD #### [facility] [address] [place] [address] Potassium [Moles/Vol] 3.9 mmol/L Normal 3.4-5.1 [facility] Comment on above: Order Comment: FAX R ESULTS TO DR FLORENCE: Performed By: #### V ITB1, ZINC #### [facility] [address] [place] [address] #### B12, FOL, CMP, PREALB, ANDREZ, CBCD #### [facility] [address] [place] [address] Protein [Mass/Vol] 7.3 g/dL Normal 6.0-8.0 [facility] Comment on above: Order Comment: FAX R ESULTS TO DR FLORENCE: Performed By: #### V ITB1, ZINC #### [facility] [address] [place] [address] #### B12, FOL, CMP, PREALB, ANDREZ, CBCD #### [facility] [address] [place] [address] Sodium [Moles/Vol] 137 mmol/L Normal 136-145 [facility] Comment on above: Order Comment: FAX R ESULTS TO DR FLORENCE: [phone] Performed By: #### V ITB1, ZINC #### [facility] [address] [place] [address] #### B12, FOL, CMP, PREALB, ANDREZ, CBCD #### [facility] [address] [place] [address] Urea nitrogen [Mass/Vol] 12 mg/dL Normal 9-23 [facility] Comment on above: Order Comment: FAX R ESULTS TO DR FLORENCE: [phone] Performed By: #### V ITB1, ZINC #### [facility] [address] [place] [address] #### B12, FOL, CMP, PREALB, ANDREZ, CBCD #### [facility] [address] [place] [address] Basic Metabolic Panelon 05-0 Anion gap [Moles/Vol] 11 mmol/L Normal 7-16 [facility] Calcium [Mass/Vol] 8.9 mg/dL Normal 8.6-10.2 [facility] Chloride [Moles/Vol] 104 mmol/L Normal 98-107 [facility] CO2 [Moles/Vol] 25 mmol/L Normal 22-29 [facility] Creatinine [Mass/Vol] 0.6 mg/dL Normal 0.5-1.0 [facility] GFR Calculated >60 Normal >=60 [facility] Comment on above: Result Comment: Pedi atric [...] secretion. Glucose [Mass/Vol] 117 mg/dL High 74-99 [facility] Potassium [Moles/Vol] 4.3 mmol/L Normal 3.5-5.0 [facility] Sodium [Moles/Vol] 140 mmol/L Normal 132-146 [facility] Urea nitrogen [Mass/Vol] 13 mg/dL Normal 6-20 [facility] Basic metabolic 2000 panelon 10-30-2022 Anion gap [Moles/Vol] 11 mmol/L 7 - 16 mmol/L [facility] Calcium [Mass/Vol] 8.9 mg/dL 8.6 - 10. 2 mg/dL [facility] Chloride [Moles/Vol] 104 mmol/L 98 - 10 7 mmol/L [facility] CO2 [Moles/Vol] 25 mmol/L 22 - 29 mmol/L [facility] Creatinine [Mass/Vol] 0.6 mg/dL 0.5 - 1.0 mg/dL [facility] GFR/1.73 sq M.predicted among non-blacks MDRD (S/P/Bld) [Vol rate/Area] mL/min/1.73 60 - PINF mL/min/1.73 [facility] Comment on above: Pediatric calculator link [...] 117 mg/dL High 74 - 99 mg/dL [facility] Potassium [Moles/Vol] 4.3 mmol/L 3.5 - 5.0 mmol/L [facility] Sodium [Moles/Vol] 140 mmol/L 132 - 146 mmol/L [facility] Urea nitrogen [Mass/Vol] 13 mg/dL 6 - 20 mg/dL [facility] CBC With Platelet and Differ entialon 10-30-2022 Abs Imm Granulocytes 0.07 E9/L Normal [facility] Absolute Basophils 0.01 E9/L Normal 0.00-0.20 [facility] Absolute Eosinophils 0.00 E9/L Low 0.05-0.50 [facility] Absolute Lymphocytes 1.89 E9/L Normal 1.50-4.00 [facility] Absolute Monocytes 0.73 E9/L Normal 0.10-0.95 [facility] Absolute Neutrophils 9.02 E9/L High 1.80-7.30 [facility] Basophils/100 WBC (Bld) 0.1 % Normal 0.0-2.0 [facility] Eosinophils/100 WBC (Bld) 0.0 % Normal 0.0-6.0 [facility] Hematocrit (Bld) [Volume fraction] 38.2 % Normal 34.0-48.0 [facility] Hemoglobin (Bld) [Mass/Vol] 12.2 g/dL Normal 11.5-15.5 [facility] Imm Granulocytes 0.6 % Normal 0.0-5.0 [facility] Lymphocytes/100 WBC (Bld) 16.1 % Low 20.0-42.0 [facility] MCH (RBC) [Entitic mass] 29.2 pg Normal 26.0-35.0 [facility] MCHC 31.9 % Low 32.0-34.5 [facility] MCV (RBC) [Entitic vol] 91.4 fL Normal 80.0-99.9 [facility] Monocytes/100 WBC (Bld) 6.2 % Normal 2.0-12.0 [facility] Neutrophils/100 WBC (Bld) 77.0 % Normal 43.0-80.0 [facility] Platelet Count 285 E9/L Normal 130-450 [facility] Platelet mean volume (Bld) [Entitic vol] 10.4 fL Normal 7.0-12.0 [facility] RBC 4.18 E12/L Normal 3.50-5.50 [facility] RDW 13.2 fL Normal 11.5-15.0 [facility] WBC 11.7 E9/L High 4.5-11.5 [facility] CBC with Auto Differentialon 10-30-2022 Basophils (Bld) [#/Vol] 0.01 10*3/uL [facility] Basophils/100 WBC (Bld) 0.1 % 0.0 - 2.0 % [facility] Eosinophils (Bld) [#/Vol] 0.00 10*3/uL Low [facility] Eosinophils/100 WBC (Bld) 0 % 0.0 - 6.0 % [facility] Erythrocyte distribution width (RBC) [Ratio] 13.2 fL 11.5 - 15.0 fL [facility] Hematocrit (Bld) [Volume fraction] 38.2 % 34.0 - 48.0 % [facility] Hemoglobin (Bld) [Mass/Vol] 12.2 g/dL 11.5 - 15.5 g/dL [facility] Immature granulocytes (Bld) [#/Vol] 0.07 10*3/uL E9/L [facility] Immature granulocytes/100 WBC (Bld) 0.6 % 0.0 - 5.0 % [facility] Interpretation and review of laboratory results Abnormal [facility] Lymphocytes (Bld) [#/Vol] 1.89 10*3/uL [facility] Lymphocytes/100 WBC (Bld) 16.1 % Low 20.0 - 42.0 % [facility] MCH (RBC) [Entitic mass] 29.2 pg 26.0 - 35.0 pg [facility] MCHC (RBC) [Mass/Vol] 31.9 % Low 32.0 - 34.5 % [facility] MCV (RBC) [Entitic vol] 91.4 fL 80.0 - 99.9 fL [facility] Monocytes (Bld) [#/Vol] 0.73 10*3/uL [facility] Monocytes/100 WBC (Bld) 6.2 % 2.0 - 12.0 % [facility] Neutrophils (Bld) [#/Vol] 9.02 10*3/uL High [facility] Platelet mean volume (Bld) [Entitic vol] 10.4 fL 7.0 - 12.0 fL [facility] Platelets (Bld) [#/Vol] 285 10*3/uL [facility] RBC (Bld) [#/Vol] 4.18 10*6/uL [facility] Segmented neutrophils/100 WBC (Bld) 77.0 % 43.0 - 80.0 % [facility] WBC (Bld) [#/Vol] 11.7 10*3/uL High [facility] Hepatic Function Panelon Albumin [Mass/Vol] 3.7 g/dL 3.5 - 5.2 g/dL [facility] ALP [Catalytic activity/Vol] 55 U/L 35 - 104 U/L [facility] ALT [Catalytic activity/Vol] 19 U/L 0 - 32 U/L [facility] AST [Catalytic activity/Vol] 14 U/L 0 - 31 U/L [facility] Bilirubin [Mass/Vol] 0.5 mg/dL 0.0 - 1 .2 mg/dL [facility] Bilirubin.direct [Mass/Vol] mg/dL 0.0 - 0.3 mg/dL [facility] Bilirubin.indirect [Mass/Vol] see below 0.0 - 1.0 mg/dL [facility] Comment on above: Indirect Bilirubin c annot be calculated since Total Bilirubin and/or Direct Bilirubin is below measurable range. Protein [Mass/Vol] 6.3 g/dL Low 6.4 - 8.3 g/dL [facility] Hgb A1Con 10-30-2022 HbA1c (Bld) [Mass fraction] 4.8 % Normal 4.0-5.6 [facility] Lipid Panelon 10-30-2022 Cholesterol [Mass/Vol] 99 mg/dL Normal 0-199 [facility] Cholesterol in HDL [Mass/Vol] 34 mg/dL Normal >40 [facility] Cholesterol in LDL [Mass/Vol] 43 mg/dL Normal 0-99 [facility] Triglyceride [Mass/Vol] 108 mg/dL Normal 0-149 [facility] VLDL Cholesterol (Calculated) 22 mg/dL Normal [facility] Cholesterol [Mass/Vol] 99 mg/dL 0 - 1 99 mg/dL [facility] Cholesterol in HDL [Mass/Vol] 34 mg/dL 40 - PINF mg/dL [facility] Cholesterol in LDL [Mass/Vol] 43 mg/dL 0 - 99 mg/dL [facility] Cholesterol in VLDL [Mass/Vol] 22 mg/dL [facility] Triglyceride [Mass/Vol] 108 mg/dL 0 - 149 mg/dL [facility] Liver Panelon 10-30-2022 Albumin [Mass/Vol] 3.7 g/dL Normal 3.5-5.2 [facility] ALP [Catalytic activity/Vol] 55 U/L Normal 35-104 [facility] ALT [Catalytic activity/Vol] 19 U/L Normal 0-32 [facility] AST [Catalytic activity/Vol] 14 U/L Normal 0-31 [facility] Bilirubin [Mass/Vol] 0.5 mg/dL Normal 0.0-1.2 [facility] Bilirubin Indirect see below Normal 0.0-1.0 [facility] Comment on above: Result Comment: Grace rect Bilirubin cannot be calculated since Total Bilirubin and/or Direct Bilirubin is below measurable range. Bilirubin.indirect [Mass/Vol] mg/dL Normal 0.0-0.3 [facility] Protein [Mass/Vol] 6.3 g/dL Low 6.4-8.3 [facility] METER GLUCOSEon 10-30-2022 Glucose [Mass/Vol] 111 mg/dL High 74-99 [facility] Magnesiumon 10-30-2022 Magnesium [Mass/Vol] 1.7 mg/dL Normal 1.6-2.6 [facility] Magnesium [Mass/Vol] 1.7 mg/dL 1.6 - 2 .6 mg/dL [facility] No Panel Informationon 10-30 Interpretation and review of laboratory results Abnormal [facility] POCT Glucoseon 10-30-2022 Glucose [Mass/Vol] 111 mg/dL High 74 - 99 mg/dL [facility] Interpretation and review of laboratory results Abnormal [facility] Phosphoruson 10-30-2022 Phosphate [Mass/Vol] 4.0 mg/dL Normal 2.5-4.5 [facility] Phosphate [Mass/Vol] 4.0 mg/dL 2.5 - 4 .5 mg/dL [facility] T[facility], Freeon 10-30-2022 Free T4 [Mass/Vol] 1.32 ng/dL 0.93 - 1. 70 ng/dL [facility] TSHon 10-30-2022 TSH [Mass/Vol] 0.828 [facility] [employer] TSH w/out Reflexon TSH w/out Reflex 0.828 uIU/mL Normal 0.270-4.200 [facility] Thyroxine Freeon 10-30-2022 Thyroxine Free 1.32 ng/dL Normal 0.93-1.70 [facility] Comprehensive Metabolic Pane evan 10-29-2022 Potassium see note Critically abnormal 3.5-5.0 [facility] Comment on above: Result Comment: Lisa cui order. Made no charge to patient for testing Corrected result; previously reported as 4.3 on 10/24/2022 at 19:57 by JESUS Hemoglobin A1con 10-29-2022 HbA1c (Bld) [Mass fraction] 5.1 % 4.0 - 5.6 % [facility] Hgb A1Con 10-29-2022 HbA1c (Bld) [Mass fraction] 5.1 % Normal 4.0-5.6 [facility] METER GLUCOSEon 10-29-2022 Glucose [Mass/Vol] 128 mg/dL High 74-99 [facility] Glucose [Mass/Vol] 146 mg/dL High 74-99 [facility] Glucose [Mass/Vol] 104 mg/dL High 74-99 [facility] Glucose [Mass/Vol] 101 mg/dL High 74-99 [facility] No Panel Informationon 10-29 [facility] Urine Qualon 0 10-29-2022 Beta HCG ( test) Ql (U) Negative Negative [facility] [employer] Work Phone: Beta HCG ( test) Ql (U) [phone] [facility] [employer] Work Phone: Negative QC Pass/Fail Pass [facility] [employer] Work Phone: Positive QC Pass/Fail Pass [facility] [employer] Work Phone: POCT Glucoseon 10-29-2022 Glucose [Mass/Vol] 128 mg/dL High 74 - 99 mg/dL [facility] Interpretation and review of laboratory results Abnormal [facility] Glucose [Mass/Vol] 146 mg/dL High 74 - 99 mg/dL [facility] Interpretation and review of laboratory results Abnormal [facility] Glucose [Mass/Vol] 104 mg/dL High 74 - 99 mg/dL [facility] Interpretation and review of laboratory results Abnormal [facility] Glucose [Mass/Vol] 101 mg/dL High 74 - 99 mg/dL [facility] Interpretation and review of laboratory results Abnormal [facility] Surgical Specimenon 10-30-19 Surgical Specimen [place] [address] FINAL SURGICAL PATHOLOGY REPORT NAME: BATOOL KINGSLEY Date of 10/29/2022 Collection: Medical Record [id number] Date of 10/29/2022 Number: Receipt: Age: 22 Y Sex: F Date 10/31/2022 12:02 Reported: Date Of : 2000 Financial [id number] Admitting DERIC FLORENCE Number: Physician: Patient DIS [id number] Ordering DERIC FLORENCE Location: Physician: Accession Number: [...] of hanson haq mucosal lined fibrous tissue, environmental marketing representative or portions of small bowel which measures 4.1 x 2.5 x 1.7 cm. Much of the exterior is covered by hanson haq, soft to finely folded mucosa. Numerous, small metallic surgical [place] are present throughout the exterior. Discrete mucosal lesions are not present. Sectioning is unremarkable. Surveillance Observer sections are submitted. Block label A1. (CEM) CODES: 35108; Department of Pathology Page 1 of 1 Normal [facility] CBC (Hemogram)on 10-24-2022 Erythrocyte distribution width (RBC) [Ratio] 13.7 fL 11.5 - 15.0 fL [facility] Hematocrit (Bld) [Volume fraction] 43.9 % 34.0 - 48.0 % [facility] Hemoglobin (Bld) [Mass/Vol] 14.3 g/dL 11.5 - 15.5 g/dL [facility] MCH (RBC) [Entitic mass] 28.9 pg 26.0 - 35.0 pg [facility] MCHC (RBC) [Mass/Vol] 32.6 % 32.0 - 34.5 % [facility] MCV (RBC) [Entitic vol] 88.9 fL 80.0 - 99.9 fL [facility] Platelet mean volume (Bld) [Entitic vol] 10.6 fL 7.0 - 12.0 fL [facility] Platelets (Bld) [#/Vol] 321 10*3/uL [facility] RBC (Bld) [#/Vol] 4.94 10*6/uL [facility] WBC (Bld) [#/Vol] 7.0 10*3/uL [facility] CBC With Platelet No Differe ntialon 10-24-2022 Hematocrit (Bld) [Volume fraction] 43.9 % Normal 34.0-48.0 [facility] Hemoglobin (Bld) [Mass/Vol] 14.3 g/dL Normal 11.5-15.5 [facility] MCH (RBC) [Entitic mass] 28.9 pg Normal 26.0-35.0 [facility] MCHC 32.6 % Normal 32.0-34.5 [facility] MCV (RBC) [Entitic vol] 88.9 fL Normal 80.0-99.9 [facility] Platelet Count 321 E9/L Normal 130-450 [facility] Platelet mean volume (Bld) [Entitic vol] 10.6 fL Normal 7.0-12.0 [facility] RBC 4.94 E12/L Normal 3.50-5.50 [facility] RDW 13.7 fL Normal 11.5-15.0 [facility] WBC 7.0 E9/L Normal 4.5-11.5 [facility] Comprehensive Metabolic Pane l reflex Mgon 10-24-2022 Albumin [Mass/Vol] 4.6 g/dL Normal 3.5-5.2 [facility] ALP [Catalytic activity/Vol] 69 U/L Normal 35-104 [facility] ALT [Catalytic activity/Vol] 27 U/L Normal 0-32 [facility] Anion gap [Moles/Vol] 12 mmol/L Normal 7-16 [facility] AST [Catalytic activity/Vol] 16 U/L Normal 0-31 [facility] Bilirubin [Mass/Vol] 0.4 mg/dL Normal 0.0-1.2 [facility] Calcium [Mass/Vol] 9.3 mg/dL Normal 8.6-10.2 [facility] Chloride [Moles/Vol] 104 mmol/L Normal 98-107 [facility] CO2 [Moles/Vol] 24 mmol/L Normal 22-29 [facility] Creatinine [Mass/Vol] 0.6 mg/dL Normal 0.5-1.0 [facility] GFR Calculated >60 Normal >=60 [facility] Comment on above: Result Comment: Dion atric [...] secretion. Glucose [Mass/Vol] 79 mg/dL Normal 74-99 [facility] Magnesium [Moles/Vol] 4.3 mmol/L Normal 3.5-5.0 [facility] Protein [Mass/Vol] 7.6 g/dL Normal 6.4-8.3 [facility] Sodium [Moles/Vol] 140 mmol/L Normal 132-146 [facility] Urea nitrogen [Mass/Vol] 13 mg/dL Normal 6-20 [facility] Comprehensive metabolic 2000 panelon 10-24-2022 Potassium [Moles/Vol] 4.3 mmol/L 3.5 - 5.0 mmol/L [facility] Albumin [Mass/Vol] 4.6 g/dL 3.5 - 5.2 g/dL [facility] ALP [Catalytic activity/Vol] 69 U/L 35 - 104 U/L [facility] ALT [Catalytic activity/Vol] 27 U/L 0 - 32 U/L [facility] Anion gap [Moles/Vol] 12 mmol/L 7 - 16 mmol/L [facility] AST [Catalytic activity/Vol] 16 U/L 0 - 31 U/L [facility] Bilirubin [Mass/Vol] 0.4 mg/dL 0.0 - 1 .2 mg/dL [facility] Calcium [Mass/Vol] 9.3 mg/dL 8.6 - 10. 2 mg/dL [facility] Chloride [Moles/Vol] 104 mmol/L 98 - 10 7 mmol/L [facility] CO2 [Moles/Vol] 24 mmol/L 22 - 29 mmol/L [facility] Creatinine [Mass/Vol] 0.6 mg/dL 0.5 - 1.0 mg/dL [facility] GFR/1.73 sq M.predicted among non-blacks MDRD (S/P/Bld) [Vol rate/Area] mL/min/1.73 60 - PINF mL/min/1.73 [facility] Comment on above: Pediatric calculator link [...] [Mass/Vol] 79 mg/dL 74 - 99 mg/dL [facility] Potassium [Moles/Vol] 4.3 mmol/L 3.5 - 5.0 mmol/L [facility] Protein [Mass/Vol] 7.6 g/dL 6.4 - 8.3 g/dL [facility] Sodium [Moles/Vol] 140 mmol/L 132 - 146 mmol/L [facility] Urea nitrogen [Mass/Vol] 13 mg/dL 6 - 20 mg/dL [facility] ACT PARTIAL THROMBO TIMEon 0 - ACT PARTIAL THROMBO TIME 30.4 SECONDS Normal 20.0-32.1 [facility] Comment on above: Result Comment: APTT THERAPEUTIC RANGE = 43.6 TO 68.4 SECONDS Performed By: #### V ITB1, ZINC #### [facility] [address] [place] [address] #### B12, FOL, CMP, PREALB, ANDREZ, CBCD #### [facility] [address] [place] [address] CBC with DIFFERENTIALon 04-0 Basophils (Bld) [#/Vol] 0.0 10*3/uL Normal 0.0-0.1 [facility] Comment on above: Performed By: #### V ITB1, ZINC #### [facility] [address] [place] [address] #### B12, FOL, CMP, PREALB, ANDREZ, CBCD #### [facility] [address] [place] [address] Basophils/100 WBC (Bld) 0.5 % Normal 0.0-1.0 [facility] Comment on above: Performed By: #### V ITB1, ZINC #### [facility] [address] [place] [address] #### B12, FOL, CMP, PREALB, ANDREZ, CBCD #### [facility] [address] [place] [address] Eosinophils (Bld) [#/Vol] 0.3 10*3/uL Normal 0.0-0.4 [facility] Comment on above: Performed By: #### V ITB1, ZINC #### [facility] [address] [place] [address] #### B12, FOL, CMP, PREALB, ANDREZ, CBCD #### [facility] [address] [place] [address] Eosinophils/100 WBC (Bld) 4.1 % High 1.0-4.0 [facility] Comment on above: Performed By: #### V ITB1, ZINC #### [facility] [address] [place] [phone] #### B12, FOL, CMP, PREALB, ANDREZ, CBCD #### [facility] [address] [place] [address] Hematocrit (Bld) [Volume fraction] 40.6 % Normal 37.0-47.0 [facility] Comment on above: Performed By: #### V ITB1, ZINC #### [facility] [address] [place] [phone] #### B12, FOL, CMP, PREALB, ANDREZ, CBCD #### [facility] [address] [place] [address] Hemoglobin (Bld) [Mass/Vol] 13.2 g/dL Normal 12.0-16.0 [facility] Comment on above: Performed By: #### V ITB1, ZINC #### [facility] [address] [place] [address] #### B12, FOL, CMP, PREALB, ANDREZ, CBCD #### [facility] [address] [place] [address] IG # 0.0 10*3/uL Normal 0.0-0.1 [facility] Comment on above: Performed By: #### V ITB1, ZINC #### [facility] [address] [place] [address] #### B12, FOL, CMP, PREALB, ANDREZ, CBCD #### [facility] [address] [place] [address] IG % 0.5 % Normal 0.0-1.0 [facility] Comment on above: Performed By: #### V ITB1, ZINC #### [facility] [address] [place] [phone] #### B12, FOL, CMP, PREALB, ANDREZ, CBCD #### [facility] [address] [place] [address] Lymphocytes (Bld) [#/Vol] 3.2 10*3/uL Normal 1.3-4.4 [facility] Comment on above: Performed By: #### V ITB1, ZINC #### [facility] [address] [place] [phone] #### B12, FOL, CMP, PREALB, ANDREZ, CBCD #### [facility] [address] [place] [address] Lymphocytes/100 WBC (Bld) 41.8 % High 27.0-41.0 [facility] Comment on above: Performed By: #### V ITB1, ZINC #### [facility] [address] [place] [phone] #### B12, FOL, CMP, PREALB, ANDREZ, CBCD #### [facility] [address] [place] [address] MCV (RBC) [Entitic vol] 88.6 fL Normal 81.0-99.0 [facility] Comment on above: Performed By: #### V ITB1, ZINC #### [facility] [address] [place] [address] #### B12, FOL, CMP, PREALB, ANDREZ, CBCD #### [facility] [address] [place] [address] MEAN CORPUSCULAR HGB 28.8 pg Normal 27.0-31.0 [facility] Comment on above: Performed By: #### V ITB1, ZINC #### [facility] [address] [place] [address] #### B12, FOL, CMP, PREALB, ANDREZ, CBCD #### [facility] [address] [place] [phone] MEAN CORPUSCULAR HGB CONC 32.5 g/dl Low 33.0-37.0 [facility] Comment on above: Performed By: #### V ITB1, ZINC #### [facility] [address] [place] [address] #### B12, FOL, CMP, PREALB, ANDREZ, CBCD #### [facility] [address] [place] [id number] Monocytes (Bld) [#/Vol] 0.4 10*3/uL Normal 0.1-1.0 [facility] Comment on above: Performed By: #### V ITB1, ZINC #### [facility] [address] [place] [address] #### B12, FOL, CMP, PREALB, ANDREZ, CBCD #### [facility] [address] [place] [id number] Monocytes/100 WBC (Bld) 5.1 % Normal 3.0-9.0 [facility] Comment on above: Performed By: #### V ITB1, ZINC #### [facility] [address] [place] [address] #### B12, FOL, CMP, PREALB, ANDREZ, CBCD #### [facility] [address] [place] [phone] Neutrophils (Bld) [#/Vol] 3.7 10*3/uL Normal 2.3-7.9 [facility] Comment on above: Performed By: #### V ITB1, ZINC #### [facility] [address] [place] [address] #### B12, FOL, CMP, PREALB, ANDREZ, CBCD #### [facility] [facility] [address] [place] [address] 19048 Neutrophils/100 WBC (Bld) 48.0 % Normal 47.0-73.0 [facility] Comment on above: Performed By: #### V ITB1, ZINC #### [facility] [address] [place] [address] #### B12, FOL, CMP, PREALB, ANDREZ, CBCD #### [facility] [address] [place] [address] 99547 NUCLEATED RED BLOOD CELL 0.0 10*3/uL Normal 0.0-0.0 [facility] Comment on above: Performed By: #### V ITB1, ZINC #### [facility] [address] [place] [address] #### B12, FOL, CMP, PREALB, ANDREZ, CBCD #### [facility] [address] [place], [place] [address] NUCLEATED RED BLOOD CELL 0.0 % Normal 0.0-0.0 [facility] Comment on above: Performed By: #### V ITB1, ZINC #### [facility] [address] [place] [address] #### B12, FOL, CMP, PREALB, ANDREZ, CBCD #### [facility] [address] [place] [address] 86131 PLATELET COUNT AUTOMATED 300 10*3/uL Normal 130-400 [facility] Comment on above: Performed By: #### V ITB1, ZINC #### [facility] [address] [place] [address] #### B12, FOL, CMP, PREALB, ANDREZ, CBCD #### [facility] [address] [place] [address] 63458 Platelet mean volume (Bld) [Entitic vol] 10.7 fL Normal 9.6-12.3 [facility] Comment on above: Performed By: #### V ITB1, ZINC #### [facility] [address] [place] [address] #### B12, FOL, CMP, PREALB, ANDREZ, CBCD #### [facility] [address] [place] [address] RBC (Bld) [#/Vol] 4.58 10*6/uL Normal 4.10-5.10 [facility] Comment on above: Performed By: #### V ITB1, ZINC #### [facility] [address] [place] [address] #### B12, FOL, CMP, PREALB, ANDREZ, CBCD #### [facility] [address] [place] [address] 10058 RED CELL DISTRI WIDTH 13.3 % Normal 0-14.5 [facility] Comment on above: Performed By: #### V ITB1, ZINC #### [facility] [address] [place] [address] #### B12, FOL, CMP, PREALB, ANDREZ, CBCD #### [facility] [address] [place] [address] 11914 WBC (Bld) [#/Vol] 7.6 10*3/uL Normal 4.8-10.8 [facility] Comment on above: Performed By: #### V ITB1, ZINC #### [facility] [address] [place] [address] #### B12, FOL, CMP, PREALB, ANDREZ, CBCD #### [facility] [address] [place] [address] 54772 COMPREHENSIVE METABOLIC PANE Evan 10-04-2022 Albumin [Mass/Vol] 3.8 g/dL Normal 3.4-5.0 [facility] Comment on above: Performed By: #### V ITB1, ZINC #### [facility] [address] [place] [address] #### B12, FOL, CMP, PREALB, ANDREZ, CBCD #### [facility] [address] [place] [address] 85968 ALP [Catalytic activity/Vol] 63 U/L Normal 46-116 [facility] Comment on above: Performed By: #### V ITB1, ZINC #### [facility] [address] [place] [address] #### B12, FOL, CMP, PREALB, ANDREZ, CBCD #### [facility] [address] [place] [address] 77418 ALT [Catalytic activity/Vol] 18 U/L Normal 10-49 [facility] Comment on above: Performed By: #### V ITB1, ZINC #### [facility] [address] [place] [address] #### B12, FOL, CMP, PREALB, ANDREZ, CBCD #### [facility] [address] [place] [address] 30961 AST [Catalytic activity/Vol] 15 U/L Normal 0-34 [facility] Comment on above: Performed By: #### V ITB1, ZINC #### [facility] [address] [place] [address] #### B12, FOL, CMP, PREALB, ANDREZ, CBCD #### [facility] [address] [place] [address] 85526 Bilirubin [Mass/Vol] 0.3 mg/dL Normal 0.3-1.2 [facility] Comment on above: Performed By: #### V ITB1, ZINC #### [facility] [address] [place] [address] #### B12, FOL, CMP, PREALB, ANDREZ, CBCD #### [facility] [address] [place] [address] 91572 CALCIUM,TOTAL 9.2 md/dL Normal 8.7-10.4 [facility] Comment on above: Performed By: #### V ITB1, ZINC #### [facility] [address] [place] [address] #### B12, FOL, CMP, PREALB, ANDREZ, CBCD #### [facility] [address] [place] [address] 31275 Chloride [Moles/Vol] 105 mmol/L Normal 98-107 [facility] Comment on above: Performed By: #### V ITB1, ZINC #### [facility] [address] [place] [address] #### B12, FOL, CMP, PREALB, ANDREZ, CBCD #### [facility] [address] [place] [address] CO2 [Moles/Vol] 27 mmol/L Normal 20-31 [facility] Comment on above: Performed By: #### V ITB1, ZINC #### [facility] [address] [place] [address] #### B12, FOL, CMP, PREALB, ANDREZ, CBCD #### [facility] [address] [place] [address] Creatinine [Mass/Vol] 0.61 mg/dL Normal 0.55-1.02 [facility] Comment on above: Performed By: #### V ITB1, ZINC #### [facility] [address] [place] [address] #### B12, FOL, CMP, PREALB, ANDREZ, CBCD #### [facility] [address] [place] [address] EST GLOM FILT > 60 Normal [facility] Comment on above: Result Comment: Result Units: [...] #### V ITB1, ZINC #### [facility] [address] [place] [address] #### B12, FOL, CMP, PREALB, ANDREZ, CBCD #### [facility] [address] [place] [address] ESTIMATED GLOM FILT RATE > 60 Normal [facility] Comment on above: Performed By: #### V ITB1, ZINC #### [facility] [address] [place] [address] #### B12, FOL, CMP, PREALB, ANDREZ, CBCD #### [facility] [address] [place] [address] Glucose [Mass/Vol] 87 mg/dL Normal 65-99 [facility] Comment on above: Performed By: #### V ITB1, ZINC #### [facility] [address] [place] [address] #### B12, FOL, CMP, PREALB, ANDREZ, CBCD #### [facility] [address] [place] [address] 63613 Potassium [Moles/Vol] 4.2 mmol/L Normal 3.4-5.1 [facility] Comment on above: Performed By: #### V ITB1, ZINC #### [facility] [address] [place] [address] #### B12, FOL, CMP, PREALB, ANDREZ, CBCD #### [facility] [address] [place] [address] 58325 Protein [Mass/Vol] 6.9 g/dL Normal 6.0-8.0 [facility] Comment on above: Performed By: #### V ITB1, ZINC #### [facility] [address] [place] [address] #### B12, FOL, CMP, PREALB, ANDREZ, CBCD #### [facility] [address] [place] [address] 00115 Sodium [Moles/Vol] 139 mmol/L Normal 136-145 [facility] Comment on above: Performed By: #### V ITB1, ZINC #### [facility] [address] [place] [address] #### B12, FOL, CMP, PREALB, ANDREZ, CBCD #### [facility] [address] [place], [place] [address] Urea nitrogen [Mass/Vol] 14 mg/dL Normal 9-23 [facility] Comment on above: Performed By: #### V ITB1, ZINC #### [facility] [address] [place] [address] #### B12, FOL, CMP, PREALB, ANDREZ, CBCD #### [facility] [address] [place], [place] [address] [id number] 10-04-2022 ESTIMATED AVERAGE GLUCOSE 100 Normal [facility] Comment on above: Performed By: #### V ITB1, ZINC #### [facility] [address] [place] [address] #### B12, FOL, CMP, PREALB, ANDREZ, CBCD #### [facility] [address] [place] [address] HbA1c (Bld) [Mass fraction] 5.1 % Normal 4.8-5.6 [facility] Comment on above: Result Comment: Standarization of method based on National Glycohemoglobin Standardization Program (NGSP). HEMOGLOBIN A1c(%) DEGREE of GLUCOSE CONTROL 5.7-6.4% Prediabetes range >6.4% Diagnosis of Diabetes <7% Glycemic control for adults with Diabetes Performed By: #### V ITB1, ZINC #### [facility] [address] [place] [address] #### B12, FOL, CMP, PREALB, ANDREZ, CBCD #### [facility] [address] [place] [address] LIPID PANEL CHOLESTEROL/HDLo n 10-04-2022 Cholesterol [Mass/Vol] 122 mg/dL Normal <200 [facility] Comment on above: Performed By: #### V ITB1, ZINC #### [facility] [address] [place] [address] #### B12, FOL, CMP, PREALB, ANDREZ, CBCD #### [facility] [address] [place] [address] Cholesterol in HDL [Mass/Vol] 28 mg/dL Low 40-60 [facility] Comment on above: Performed By: #### V ITB1, ZINC #### [facility] [address] [place] [address] #### B12, FOL, CMP, PREALB, ANDREZ, CBCD #### [facility] [address] [place] [address] 39384 Cholesterol in LDL [Mass/Vol] 55 mg/dL Normal 9-159 [facility] Comment on above: Performed By: #### V ITB1, ZINC #### [facility] [address] [place] [address] #### B12, FOL, CMP, PREALB, ANDREZ, CBCD #### [facility] [address] [place] [address] Cholesterol.total/Chol esterol in HDL [Mass ratio] 4.4 {ratio} Normal [facility] Comment on above: Performed By: #### V ITB1, ZINC #### [facility] [address] [place] [address] #### B12, FOL, CMP, PREALB, ANDREZ, CBCD #### [facility] [address] [place] [address] Triglyceride [Mass/Vol] 196 mg/dL High <150 [facility] Comment on above: Result Comment: TRIGLYCERIDE RISK ASSESSMENT: 150-199 mg/dl BORDERLINE HIGH >200 mg//dl HIGH . Performed By: #### V ITB1, ZINC #### [facility] [address] [place] [address] #### B12, FOL, CMP, PREALB, ANDREZ, CBCD #### [facility] [address] [place] [address] VLDL CHOLESTEROL 39 mg/dL Normal 6-40 [facility] Comment on above: Performed By: #### V ITB1, ZINC #### [facility] [address] [place] [address] #### B12, FOL, CMP, PREALB, ANDREZ, CBCD #### [facility] [address] [place] [address] THROAT CULTUREon 08-15-2022 Throat culture THROAT CULTURE NORMAL ARIN Normal [facility] Comment on above: Performed By: #### V ITB1, ZINC #### [facility] [address] [place] [address] #### B12, FOL, CMP, PREALB, ANDREZ, CBCD #### [facility] [address] [place] [address] NOVL CORONAVIRUS NAAon 08-14 SARS-CoV-2 (COVID-19) RNA SUJATA+probe Ql (Unsp spec) Detected Abnormal Not Detected [facility] Comment on above: Result Comment: Evelyn ents who have a positive COVID-19 test result may now have treatment options. Treatment options are available for patients with mild to moderate symptoms and for hospitalized patients. Visit our website at [email or web address] for resources and information. This nucleic acid amplification test was developed and its performance characteristics determined by [employer]. Nucleic acid amplification tests include RT- PCR [...] #### V ITB1, ZINC #### [facility] [address] [place] [address] #### B12, FOL, CMP, PREALB, ANDREZ, CBCD #### [facility] [address] [place] [address] 24095 CBC with DIFFERENTIALon 08-01 Basophils (Bld) [#/Vol] 0.0 10*3/uL Normal 0.0-0.1 [facility] Comment on above: Performed By: #### V ITB1, ZINC #### [facility] [address] [place] [address] #### B12, FOL, CMP, PREALB, ANDREZ, CBCD #### [facility] [address] [place] [address] 68771 Basophils/100 WBC (Bld) 0.5 % Normal 0.0-1.0 [facility] Comment on above: Performed By: #### V ITB1, ZINC #### [facility] [address] [place] [address] #### B12, FOL, CMP, PREALB, ANDREZ, CBCD #### [facility] [address] [place] [address] 20199 Eosinophils (Bld) [#/Vol] 0.2 10*3/uL Normal 0.0-0.4 [facility] Comment on above: Performed By: #### V ITB1, ZINC #### [facility] [address] [place] [address] #### B12, FOL, CMP, PREALB, ANDREZ, CBCD #### [facility] [address] [place] [address] 81473 Eosinophils/100 WBC (Bld) 4.2 % High 1.0-4.0 [facility] Comment on above: Performed By: #### V ITB1, ZINC #### [facility] [address] [place] [address] #### B12, FOL, CMP, PREALB, ANDREZ, CBCD #### [facility] [address] [place] [address] 71436 Hematocrit (Bld) [Volume fraction] 43.8 % Normal 37.0-47.0 [facility] Comment on above: Performed By: #### V ITB1, ZINC #### [facility] [address] [place] [address] #### B12, FOL, CMP, PREALB, ANDREZ, CBCD #### [facility] [address] [place] [address] 46548 Hemoglobin (Bld) [Mass/Vol] 14.0 g/dL Normal 12.0-16.0 [facility] Comment on above: Performed By: #### V ITB1, ZINC #### [facility] [address] [place] [address] #### B12, FOL, CMP, PREALB, ANDREZ, CBCD #### [facility] [address] [place] [address] 72280 IG # 0.1 10*3/uL Normal 0.0-0.1 [facility] Comment on above: Performed By: #### V ITB1, ZINC #### [facility] [address] [place] [address] #### B12, FOL, CMP, PREALB, ANDREZ, CBCD #### [facility] [address] [place] [address] 50627 IG % 1.1 % High 0.0-1.0 [facility] Comment on above: Performed By: #### V ITB1, ZINC #### [facility] [address] [place] [address] #### B12, FOL, CMP, PREALB, ANDREZ, CBCD #### [facility] [address] [place] [address] Lymphocytes (Bld) [#/Vol] 2.9 10*3/uL Normal 1.3-4.4 [facility] Comment on above: Performed By: #### V ITB1, ZINC #### [facility] [address] [place] [address] #### B12, FOL, CMP, PREALB, ANDREZ, CBCD #### [facility] [address] [place] [address] 72980 Lymphocytes/100 WBC (Bld) 51.5 % High 27.0-41.0 [facility] Comment on above: Performed By: #### V ITB1, ZINC #### [facility] [address] [place] [address] #### B12, FOL, CMP, PREALB, ANDREZ, CBCD #### [facility] [address] [place] [address] 71313 MCV (RBC) [Entitic vol] 88.8 fL Normal 81.0-99.0 [facility] Comment on above: Performed By: #### V ITB1, ZINC #### [facility] [address] [place] [address] #### B12, FOL, CMP, PREALB, ANDREZ, CBCD #### [facility] [address] [place] [address] 79055 MEAN CORPUSCULAR HGB 28.4 pg Normal 27.0-31.0 [facility] Comment on above: Performed By: #### V ITB1, ZINC #### [facility] [address] [place] [address] #### B12, FOL, CMP, PREALB, ANDREZ, CBCD #### [facility] [address] [place] [address] 34027 MEAN CORPUSCULAR HGB CONC 32.0 g/dl Low 33.0-37.0 [facility] Comment on above: Performed By: #### V ITB1, ZINC #### [facility] [address] [place] [address] #### B12, FOL, CMP, PREALB, ANDREZ, CBCD #### [facility] [address] [place] [address] 07483 Monocytes (Bld) [#/Vol] 0.4 10*3/uL Normal 0.1-1.0 [facility] Comment on above: Performed By: #### V ITB1, ZINC #### [facility] [address] [place] [address] #### B12, FOL, CMP, PREALB, ANDREZ, CBCD #### [facility] [address] [place] [address] 72315 Monocytes/100 WBC (Bld) 7.0 % Normal 3.0-9.0 [facility] Comment on above: Performed By: #### V ITB1, ZINC #### [facility] [address] [place] [address] #### B12, FOL, CMP, PREALB, ANDREZ, CBCD #### [facility] [address] [place] [address] 66139 Neutrophils (Bld) [#/Vol] 2.0 10*3/uL Low 2.3-7.9 [facility] Comment on above: Performed By: #### V ITB1, ZINC #### [facility] [address] [place] [address] #### B12, FOL, CMP, PREALB, ANDREZ, CBCD #### [facility] [address] [place] [address] 33336 Neutrophils/100 WBC (Bld) 35.7 % Low 47.0-73.0 [facility] Comment on above: Performed By: #### V ITB1, ZINC #### [facility] [address] [place] [address] #### B12, FOL, CMP, PREALB, ANDREZ, CBCD #### [facility] [address] [place] [address] 26873 NUCLEATED RED BLOOD CELL 0.0 10*3/uL Normal 0.0-0.0 [facility] Comment on above: Performed By: #### V ITB1, ZINC #### [facility] [address] [place] [address] #### B12, FOL, CMP, PREALB, ANDREZ, CBCD #### [facility] [address] [place] [address] 64916 NUCLEATED RED BLOOD CELL 0.0 % Normal 0.0-0.0 [facility] Comment on above: Performed By: #### V ITB1, ZINC #### [facility] [address] [place] [address] #### B12, FOL, CMP, PREALB, ANDREZ, CBCD #### [facility] [address] [place] [address] 94963 PLATELET COUNT AUTOMATED 277 10*3/uL Normal 130-400 [facility] Comment on above: Performed By: #### V ITB1, ZINC #### [facility] [address] [place] [address] #### B12, FOL, CMP, PREALB, ANDREZ, CBCD #### [facility] [address] [place] [address] 18285 Platelet mean volume (Bld) [Entitic vol] 10.1 fL Normal 9.6-12.3 [facility] Comment on above: Performed By: #### V ITB1, ZINC #### [facility] [address] [place] [address] #### B12, FOL, CMP, PREALB, ANDREZ, CBCD #### [facility] [address] [place] [address] 89973 RBC (Bld) [#/Vol] 4.93 10*6/uL Normal 4.10-5.10 [facility] Comment on above: Performed By: #### V ITB1, ZINC #### [facility] [address] [place] [address] #### B12, FOL, CMP, PREALB, ANDREZ, CBCD #### [facility] [address] [place] [address] 77695 RED CELL DISTRI WIDTH 13.6 % Normal 0-14.5 [facility] Comment on above: Performed By: #### V ITB1, ZINC #### [facility] [address] [place] [address] #### B12, FOL, CMP, PREALB, ANDREZ, CBCD #### [facility] [address] [place] [address] WBC (Bld) [#/Vol] 5.7 10*3/uL Normal 4.8-10.8 [facility] Comment on above: Performed By: #### V ITB1, ZINC #### [facility] [address] [place] [address] #### B12, FOL, CMP, PREALB, ANDREZ, CBCD #### [facility] [address] [place] [address] CHEST (2 V)on 08-13-2022 CRCXR Name: BATOOL KINGSLEY Phys: EILEEN REHMANKAELA : 2000 Age: 22 Sex: F Acct: [id number] Loc: RAD Exam Date: 08/13/2022 Status: REG CLI Radiology No: [id number] Unit No: [id number] EXAM# TYPE/EXAM RESULT [id number] RAD/CHEST (2 V) SEE REPORT INDICATION: Stuffy [...] CC: Technologist: WIN CHRISTIE Transcribed Date/Time: 08/13/2022 (4979) Strategic Communications Manager: OSCAR Printed Date/Time: 08/13/2022 (9749) PAGE 1 Signed Report Normal [facility] COMPREHENSIVE METABOLIC PANE Evan 08-13-2022 Albumin [Mass/Vol] 3.7 g/dL Normal 3.4-5.0 [facility] Comment on above: Performed By: #### V ITB1, ZINC #### [facility] [address] [place] [address] #### B12, FOL, CMP, PREALB, ANDREZ, CBCD #### [facility] [address] [place] [address] ALP [Catalytic activity/Vol] 56 U/L Normal 46-116 [facility] Comment on above: Performed By: #### V ITB1, ZINC #### [facility] [address] [place] [address] #### B12, FOL, CMP, PREALB, ANDREZ, CBCD #### [facility] [address] [place] [address] 11472 ALT [Catalytic activity/Vol] 21 U/L Normal 10-49 [facility] Comment on above: Performed By: #### V ITB1, ZINC #### [facility] [address] [place] [address] #### B12, FOL, CMP, PREALB, ANDREZ, CBCD #### [facility] [address] [place] [address] 34161 AST [Catalytic activity/Vol] 23 U/L Normal 0-34 [facility] Comment on above: Performed By: #### V ITB1, ZINC #### [facility] [address] [place] [address] #### B12, FOL, CMP, PREALB, ANDREZ, CBCD #### [facility] [address] [place] [address] Bilirubin [Mass/Vol] mg/dL Low 0.3-1.2 [facility] Comment on above: Performed By: #### V ITB1, ZINC #### [facility] [address] [place] [address] #### B12, FOL, CMP, PREALB, ANDREZ, CBCD #### [facility] [address] [place] [address] CALCIUM,TOTAL 9.2 md/dL Normal 8.7-10.4 [facility] Comment on above: Performed By: #### V ITB1, ZINC #### [facility] [address] [place] [address] #### B12, FOL, CMP, PREALB, ANDREZ, CBCD #### [facility] [address] [place] [address] Chloride [Moles/Vol] 105 mmol/L Normal 98-107 [facility] Comment on above: Performed By: #### V ITB1, ZINC #### [facility] [address] [place] [address] #### B12, FOL, CMP, PREALB, ANDREZ, CBCD #### [facility] [address] [place] [address] CO2 [Moles/Vol] 25 mmol/L Normal 20-31 [facility] Comment on above: Performed By: #### V ITB1, ZINC #### [facility] [address] [place] [address] #### B12, FOL, CMP, PREALB, ANDREZ, CBCD #### [facility] [address] [place] [address] Creatinine [Mass/Vol] 0.53 mg/dL Low 0.55-1.02 [facility] Comment on above: Performed By: #### V ITB1, ZINC #### [facility] [address] [place] [address] #### B12, FOL, CMP, PREALB, ANDREZ, CBCD #### [facility] [address] [place] [address] 75542 EST GLOM FILT > 60 Normal [facility] Comment on above: Result Comment: Result Units: [...] #### V ITB1, ZINC #### [facility] [address] [place] [address] #### B12, FOL, CMP, PREALB, ANDREZ, CBCD #### [facility] [address] [place] [address] 00632 ESTIMATED GLOM FILT RATE > 60 Normal [facility] Comment on above: Performed By: #### V ITB1, ZINC #### [facility] [address] [place] [address] #### B12, FOL, CMP, PREALB, ANDREZ, CBCD #### [facility] [address] [place] [address] 29715 Glucose [Mass/Vol] 81 mg/dL Normal 65-99 [facility] Comment on above: Performed By: #### V ITB1, ZINC #### [facility] [address] [place] [address] #### B12, FOL, CMP, PREALB, ANDREZ, CBCD #### [facility] [address] [place] [address] 54462 Potassium [Moles/Vol] 4.5 mmol/L Normal 3.4-5.1 [facility] Comment on above: Performed By: #### V ITB1, ZINC #### [facility] [address] [place] [address] #### B12, FOL, CMP, PREALB, ANDREZ, CBCD #### [facility] [address] [place] [address] 68034 Protein [Mass/Vol] 7.0 g/dL Normal 6.0-8.0 [facility] Comment on above: Performed By: #### V ITB1, ZINC #### [facility] [address] [place] [address] #### B12, FOL, CMP, PREALB, ANDREZ, CBCD #### [facility] [address] [place] [address] 31644 Sodium [Moles/Vol] 138 mmol/L Normal 136-145 [facility] Comment on above: Performed By: #### V ITB1, ZINC #### [facility] [address] #### B12, FOL, CMP, PREALB, ANDREZ, CBCD #### [facility] [address] [place] [address] Urea nitrogen [Mass/Vol] 7 mg/dL Low 9- [facility] Comment on above: Performed By: #### V ITB1, ZINC #### [facility] [address] [place] [address] #### B12, FOL, CMP, PREALB, ANDREZ, CBCD #### [facility] [address] [place] [phone] ESR (Sed Rate)on 08-13-2022 ESR (Bld) [Velocity] 20 mm/h Normal 0-20 [facility] Comment on above: Performed By: #### V ITB1, ZINC #### [facility] [address] [place] [address] #### B12, FOL, CMP, PREALB, ANDREZ, CBCD #### [facility] [address] [place] [id number] CBC with DIFFERENTIALon -3 Basophils (Bld) [#/Vol] 0.1 10*3/uL Normal 0.0-0.1 [facility] Comment on above: Performed By: #### C MP, TSH, LIPPAN, HBA1C, CBCD, INS #### [facility] [address] [place] [id number] Basophils/100 WBC (Bld) 0.7 % Normal 0.0-1.0 [facility] Comment on above: Performed By: #### C MP, TSH, LIPPAN, HBA1C, CBCD, INS #### [facility] [address] [place] [address] 96456 Eosinophils (Bld) [#/Vol] 0.3 10*3/uL Normal 0.0-0.4 [facility] Comment on above: Performed By: #### C MP, TSH, LIPPAN, HBA1C, CBCD, INS #### [facility] [address] [place] [address] 57930 Eosinophils/100 WBC (Bld) 4.3 % High 1.0-4.0 [facility] Comment on above: Performed By: #### C MP, TSH, LIPPAN, HBA1C, CBCD, INS #### [facility] [address] [place] [address] 44871 Hematocrit (Bld) [Volume fraction] 43.7 % Normal 37.0-47.0 [facility] Comment on above: Performed By: #### C MP, TSH, LIPPAN, HBA1C, CBCD, INS #### [facility] [address] [place] [address] 50485 Hemoglobin (Bld) [Mass/Vol] 13.9 g/dL Normal 12.0-16.0 [facility] Comment on above: Performed By: #### C MP, TSH, LIPPAN, HBA1C, CBCD, INS #### [facility] [address] [place] [address] 33289 IG # 0.0 10*3/uL Normal 0.0-0.1 [facility] Comment on above: Performed By: #### C MP, TSH, LIPPAN, HBA1C, CBCD, INS #### [facility] [address] [place] [address] 07848 IG % 0.4 % Normal 0.0-1.0 [facility] Comment on above: Performed By: #### C MP, TSH, LIPPAN, HBA1C, CBCD, INS #### [facility] [address] [place] [address] Lymphocytes (Bld) [#/Vol] 3.2 10*3/uL Normal 1.3-4.4 [facility] Comment on above: Performed By: #### C MP, TSH, LIPPAN, HBA1C, CBCD, INS #### [facility] [address] [place] [address] Lymphocytes/100 WBC (Bld) 42.7 % High 27.0-41.0 [facility] Comment on above: Performed By: #### C MP, TSH, LIPPAN, HBA1C, CBCD, INS #### [facility] [address] [place] [address] 34946 MCV (RBC) [Entitic vol] 90.3 fL Normal 81.0-99.0 [facility] Comment on above: Performed By: #### C MP, TSH, LIPPAN, HBA1C, CBCD, INS #### [facility] [address] [place] [address] MEAN CORPUSCULAR HGB 28.7 pg Normal 27.0-31.0 [facility] Comment on above: Performed By: #### C MP, TSH, LIPPAN, HBA1C, CBCD, INS #### [facility] [address] [place] [address] 25450 MEAN CORPUSCULAR HGB CONC 31.8 g/dl Low 33.0-37.0 [facility] Comment on above: Performed By: #### C MP, TSH, LIPPAN, HBA1C, CBCD, INS #### [facility] [address] [place] [address] 65140 Monocytes (Bld) [#/Vol] 0.4 10*3/uL Normal 0.1-1.0 [facility] Comment on above: Performed By: #### C MP, TSH, LIPPAN, HBA1C, CBCD, INS #### [facility] [address] [place] [address] 68206 Monocytes/100 WBC (Bld) 5.4 % Normal 3.0-9.0 [facility] Comment on above: Performed By: #### C MP, TSH, LIPPAN, HBA1C, CBCD, INS #### [facility] [address] [place] [address] 20532 Neutrophils (Bld) [#/Vol] 3.4 10*3/uL Normal 2.3-7.9 [facility] Comment on above: Performed By: #### C MP, TSH, LIPPAN, HBA1C, CBCD, INS #### [facility] [address] [place] [address] 68473 Neutrophils/100 WBC (Bld) 46.5 % Low 47.0-73.0 [facility] Comment on above: Performed By: #### C MP, TSH, LIPPAN, HBA1C, CBCD, INS #### [facility] [address] [place] [address] 20660 NUCLEATED RED BLOOD CELL 0.0 10*3/uL Normal 0.0-0.0 [facility] Comment on above: Performed By: #### C MP, TSH, LIPPAN, HBA1C, CBCD, INS #### [facility] [address] [place] [address] 28014 NUCLEATED RED BLOOD CELL 0.0 % Normal 0.0-0.0 [facility] Comment on above: Performed By: #### C MP, TSH, LIPPAN, HBA1C, CBCD, INS #### [facility] [address] [place] [address] 42696 PLATELET COUNT AUTOMATED 309 10*3/uL Normal 130-400 [facility] Comment on above: Performed By: #### C MP, TSH, LIPPAN, HBA1C, CBCD, INS #### [facility] [address] [place] [address] 40574 Platelet mean volume (Bld) [Entitic vol] 10.3 fL Normal 9.6-12.3 [facility] Comment on above: Performed By: #### C MP, TSH, LIPPAN, HBA1C, CBCD, INS #### [facility] [address] [place] [address] RBC (Bld) [#/Vol] 4.84 10*6/uL Normal 4.10-5.10 [facility] Comment on above: Performed By: #### C MP, TSH, LIPPAN, HBA1C, CBCD, INS #### [facility] [address] [place] [address] 99750 RED CELL DISTRI WIDTH 13.5 % Normal 0-14.5 [facility] Comment on above: Performed By: #### C MP, TSH, LIPPAN, HBA1C, CBCD, INS #### [facility] [address] [place] [address] 82572 WBC (Bld) [#/Vol] 7.4 10*3/uL Normal 4.8-10.8 [facility] Comment on above: Performed By: #### C MP, TSH, LIPPAN, HBA1C, CBCD, INS #### [facility] [address] [place] [address] COMPREHENSIVE METABOLIC PANE [facility] 07-31-2022 Albumin [Mass/Vol] 3.9 g/dL Normal 3.4-5.0 [facility] Comment on above: Performed By: #### V ITB1, ZINC #### [facility] [address] [place] [address] #### B12, FOL, CMP, PREALB, ANDREZ, CBCD #### [facility] [address] [place] [address] ALP [Catalytic activity/Vol] 60 U/L Normal 46-116 [facility] Comment on above: Performed By: #### V ITB1, ZINC #### [facility] [address] [place] [address] #### B12, FOL, CMP, PREALB, ANDREZ, CBCD #### [facility] [address] [place] [address] ALT [Catalytic activity/Vol] 23 U/L Normal 10-49 [facility] Comment on above: Performed By: #### V ITB1, ZINC #### [facility] [address] [place] [address] #### B12, FOL, CMP, PREALB, ANDREZ, CBCD #### [facility] [address] [place] [address] AST [Catalytic activity/Vol] 17 U/L Normal 0-34 [facility] Comment on above: Performed By: #### V ITB1, ZINC #### [facility] [address] [place] [address] #### B12, FOL, CMP, PREALB, ANDREZ, CBCD #### [facility] [address] [place] [address] 29281 Bilirubin [Mass/Vol] 0.3 mg/dL Normal 0.3-1.2 [facility] Comment on above: Performed By: #### V ITB1, ZINC #### [facility] [address] [place] [address] #### B12, FOL, CMP, PREALB, ANDREZ, CBCD #### [facility] [address] [place] [address] 22440 CALCIUM,TOTAL 9.6 md/dL Normal 8.7-10.4 [facility] Comment on above: Performed By: #### V ITB1, ZINC #### [facility] [address] [place] [address] #### B12, FOL, CMP, PREALB, ANDREZ, CBCD #### [facility] [address] [place] [address] 85987 Chloride [Moles/Vol] 102 mmol/L Normal 98-107 [facility] Comment on above: Performed By: #### V ITB1, ZINC #### [facility] [address] [place] [address] #### B12, FOL, CMP, PREALB, ANDREZ, CBCD #### [facility] [address] [place] [address] 20027 CO2 [Moles/Vol] 27 mmol/L Normal 20-31 [facility] Comment on above: Performed By: #### V ITB1, ZINC #### [facility] [address] [place] [address] #### B12, FOL, CMP, PREALB, ANDREZ, CBCD #### [facility] [address] [place] [address] Creatinine [Mass/Vol] 0.58 mg/dL Normal 0.55-1.02 [facility] Comment on above: Performed By: #### V ITB1, ZINC #### [facility] [address] [place] [address] #### B12, FOL, CMP, PREALB, ANDREZ, CBCD #### [facility] [address] [place], [place] [address] EST GLOM FILT > 60 Normal [facility] Comment on above: Result Comment: Result Units: [...] #### V ITB1, ZINC #### [facility] [address] [place] [address] #### B12, FOL, CMP, PREALB, ANDREZ, CBCD #### [facility] [address] [place] [address] 26032 ESTIMATED GLOM FILT RATE > 60 Normal [facility] Comment on above: Performed By: #### V ITB1, ZINC #### [facility] [address] [place] [address] #### B12, FOL, CMP, PREALB, ANDREZ, CBCD #### [facility] [address] [place] [address] 09309 Glucose [Mass/Vol] 73 mg/dL Normal 65-99 [facility] Comment on above: Performed By: #### V ITB1, ZINC #### [facility] [address] [place] [address] #### B12, FOL, CMP, PREALB, ANDREZ, CBCD #### [facility] [address] [place] [address] 67949 Potassium [Moles/Vol] 4.2 mmol/L Normal 3.4-5.1 [facility] Comment on above: Performed By: #### V ITB1, ZINC #### [facility] [address] [place] [address] #### B12, FOL, CMP, PREALB, ANDREZ, CBCD #### [facility] [address] [place] [address] 20394 Protein [Mass/Vol] 7.2 g/dL Normal 6.0-8.0 [facility] Comment on above: Performed By: #### V ITB1, ZINC #### [facility] [address] [place] [address] #### B12, FOL, CMP, PREALB, ANDREZ, CBCD #### [facility] [address] [place] [address] 73892 Sodium [Moles/Vol] 137 mmol/L Normal 136-145 [facility] Comment on above: Performed By: #### V ITB1, ZINC #### [facility] [address] [place] [address] #### B12, FOL, CMP, PREALB, ANDREZ, CBCD #### [facility] [address] [place] [address] 60482 Urea nitrogen [Mass/Vol] 11 mg/dL Normal 9-23 [facility] Comment on above: Performed By: #### V ITB1, ZINC #### [facility] [address] [place] [address] #### B12, FOL, CMP, PREALB, ANDREZ, CBCD #### [facility] [address] [place] [address] [id number] 07-31-2022 ESTIMATED AVERAGE GLUCOSE 100 Normal [facility] Comment on above: Performed By: #### V ITB1, ZINC #### [facility] [address] [place] [address] #### B12, FOL, CMP, PREALB, ANDREZ, CBCD #### [facility] [address] [place] [address] HbA1c (Bld) [Mass fraction] 5.1 % Normal 4.8-5.6 [facility] Comment on above: Result Comment: Standarization of method based on National Glycohemoglobin Standardization Program (NGSP). HEMOGLOBIN A1c(%) DEGREE of GLUCOSE CONTROL 5.7-6.4% Prediabetes range >6.4% Diagnosis of Diabetes <7% Glycemic control for adults with Diabetes Performed By: #### Winnie ITB1, ZINC #### [facility] [address] #### B12, FOL, CMP, PREALB, ANDREZ, CBCD #### [facility] [address] [place] [address] 26361 INSULINon 07-31-2022 INSULIN 45.6 mU/L High 2.6-37.6 [facility] Comment on above: Performed By: #### V ITB1, ZINC #### [facility] [address] [place] [address] #### B12, FOL, CMP, PREALB, ANDREZ, CBCD #### [facility] [address] [place] [address] LIPID PANEL CHOLESTEROL/HDLo n 07-31-2022 Cholesterol [Mass/Vol] 170 mg/dL Normal <200 [facility] Comment on above: Performed By: #### V ITB1, ZINC #### [facility] [address] [place] [address] #### B12, FOL, CMP, PREALB, ANDREZ, CBCD #### [facility] [address] [place] [address] Cholesterol in HDL [Mass/Vol] 31 mg/dL Low 40-60 [facility] Comment on above: Performed By: #### V ITB1, ZINC #### [facility] [address] [place] [address] #### B12, FOL, CMP, PREALB, ANDREZ, CBCD #### [facility] [address] [place] [address] 78194 Cholesterol in LDL [Mass/Vol] 73 mg/dL Normal 9-159 [facility] Comment on above: Performed By: #### V ITB1, ZINC #### [facility] [address] [place] [address] #### B12, FOL, CMP, PREALB, ANDREZ, CBCD #### [facility] [address] [place] [address] Cholesterol.total/Chol esterol in HDL [Mass ratio] 5.5 {ratio} Normal [facility] Comment on above: Performed By: #### V ITB1, ZINC #### [facility] [address] [place] [address] #### B12, FOL, CMP, PREALB, ANDREZ, CBCD #### [facility] [address] [place] [address] Triglyceride [Mass/Vol] 328 mg/dL High <150 [facility] Comment on above: Result Comment: TRIGLYCERIDE RISK ASSESSMENT: 150-199 mg/dl BORDERLINE HIGH >200 mg//dl HIGH . Performed By: #### V ITB1, ZINC #### [facility] [address] [place] [address] #### B12, FOL, CMP, PREALB, ANDREZ, CBCD #### [facility] [address] [place] [address] VLDL CHOLESTEROL 66 mg/dL High 6-40 [facility] Comment on above: Performed By: #### V ITB1, ZINC #### [facility] [address] [place] [address] #### B12, FOL, CMP, PREALB, ANDREZ, CBCD #### [facility] [address] [place] [address] THYROID STIM HORMONE (HS)on 07-31-2022 THYROID STIM HORMONE (HS) 2.569 uIU/ml Normal 0.550-4.780 [facility] Comment on above: Performed By: #### V ITB1, ZINC #### [facility] [address] [place] [address] #### B12, FOL, CMP, PREALB, ADNREZ, CBCD #### [facility] [address] [place] [address] NICOTINE METABOLITE, QUANTon 07-19-2022 COTININE <1.0 Normal . [facility] Comment on above: Order Comment: FAX T O [phone] Result Comment: This test was developed and its performance characteristics determined by [employer]. It has not been cleared or approved by the Food and Drug Administration. Cotinine levels greater than 20.0 are consistent with the use of tobacco or tobacco cessation products. Performed at: [address] [id number] Certified Prosthetist Vice President: Estuardo Michelle MD, Phone: [phone] Performed By: #### N ICOTINE #### [facility] [address] [place] [address] NICOTINE <1.0 Normal . [facility] Comment on above: Order Comment: FAX T O [phone] Result Comment: This test was developed and its performance characteristics determined by [employer] [facility]. It has not been cleared or approved by the Food and Drug Administration. Nicotine levels greater than 2.0 are consistent with the use of tobacco or tobacco cessation products. Performed By: #### N ICOTINE #### [facility] [address] [place] [address] [facility]2V)on [facility] Phys: RUSSELL MURRIETA,LASHAWN : 2000 Age: 22 Sex: F Acct: [id number] Loc: RAD Exam Date: 06/14/2022 Status: REG CLI Radiology No: [id number] Unit No: [id number] EXAM# TYPE/EXAM RESULT [id number] RAD/HIPS BILATERAL (2V) SEE REPORT INDICATION: Sharp [...] NP Technologist: Eugene Wagner Transcribed Date/Time: 06/14/2022 (5738) Strategic Communications Manager: OSCAR Printed Date/Time: 06/14/2022 (2980) PAGE 1 Signed Report Normal [facility] Vitamin B1 (Thiamine), Whole Bloodon 05-09-2022 Vitamin B1, Whole Blood 116 nmol/L Normal 70-180 [facility] Comment on above: Result Comment: INTE RPRETIVE INFORMATION: Vitamin B1, Whole Blood This assay measures the concentration of thiamine diphosphate (TDP), the primary active form of vitamin B1. Approximately 90 percent of vitamin B1 present in whole blood is TDP. Thiamine and thiamine monophosphate, which comprise the remaining 10 percent, are not measured. This test was developed and its performance characteristics determined by [employer]. It has not been cleared or approved by the [place] Food and Drug Administration. This test was performed in a CLIA certified laboratory and is intended for clinical purposes. Performed By: [facility] [facility] [address] [place] [address] Nurse Staff Industrial: Francisco Javier Zhang MD, PhD Performed By: #### 8 0388 ####[facility] Reference [id number] [place] [id number] Zinc, Serumon 05-07-2022 Zinc, Serum 75.6 ug/dL Normal 60.0-120.0 [facility] Comment on above: Result Comment: INTE RPRETIVE [...] developed and its performance characteristics determined by [employer]. It has not been cleared or approved by the [place] Food and Drug Administration. This test was performed in a CLIA certified laboratory and is intended for clinical purposes. Performed By: [facility] [address] [place] [address] Nurse Staff Industrial: Francisco Javier Zhang MD, PhD Performed By: #### 2 0097 #### [facility] Reference Lab [address] [place] [id number] Blood glucose - POCTon 05-04 Glucose [Mass/Vol] 96 mg/dL [facility] Work Phone: QC OK? [facility] Work Phone: CBCon 05-04-2022 Hematocrit (Bld) [Volume fraction] 40.4 % 34.0 - 48.0 % [facility] Hemoglobin (Bld) [Mass/Vol] 13.2 g/dL 11.5 - 15.5 g/dL [facility] MCH (RBC) [Entitic mass] 29.9 pg 26.0 - 35.0 pg [facility] MCHC (RBC) [Mass/Vol] 32.7 % 32.0 - 34.5 % [facility] MCV (RBC) [Entitic vol] 91.6 fL 80.0 - 99.9 fL [facility] Platelet distribution width (Bld) [Ratio] 13.0 fL 11.5 - 15.0 fL [facility] Platelet mean volume (Bld) [Entitic vol] 9.8 fL 7.0 - 12.0 fL [facility] Platelets (Bld) [#/Vol] 313 10*3/uL [facility] RBC (Bld) [#/Vol] 4.41 10*6/uL [facility] WBC (Bld) [#/Vol] 9.2 10*3/uL [facility] CBC With Platelet No Differe ntialon 05-04-2022 Hematocrit (Bld) [Volume fraction] 40.4 % Normal 34.0-48.0 [facility] Hemoglobin (Bld) [Mass/Vol] 13.2 g/dL Normal 11.5-15.5 [facility] MCH (RBC) [Entitic mass] 29.9 pg Normal 26.0-35.0 [facility] MCHC 32.7 % Normal 32.0-34.5 [facility] MCV (RBC) [Entitic vol] 91.6 fL Normal 80.0-99.9 [facility] Platelet Count 313 E9/L Normal 130-450 [facility] Platelet mean volume (Bld) [Entitic vol] 9.8 fL Normal 7.0-12.0 [facility] RBC 4.41 E12/L Normal 3.50-5.50 [facility] RDW 13.0 fL Normal 11.5-15.0 [facility] WBC 9.2 E9/L Normal 4.5-11.5 [facility] Cholesterolon 05-04-2022 Cholesterol [Mass/Vol] 162 mg/dL Normal 0-199 [facility] Cholesterol, Totalon 022 Cholesterol [Mass/Vol] 162 mg/dL 0 - 1 99 mg/dL [facility] Comprehensive Metabolic Pane evan 05-04-2022 Albumin [Mass/Vol] 4.1 g/dL Normal 3.5-5.2 [facility] ALP [Catalytic activity/Vol] 64 U/L Normal 35-104 [facility] ALT [Catalytic activity/Vol] 22 U/L Normal 0-32 [facility] Anion gap [Moles/Vol] 10 mmol/L Normal 7-16 [facility] AST [Catalytic activity/Vol] 13 U/L Normal 0-31 [facility] Bilirubin [Mass/Vol] 0.2 mg/dL Normal 0.0-1.2 [facility] Calcium [Mass/Vol] 8.9 mg/dL Normal 8.6-10.2 [facility] Chloride [Moles/Vol] 102 mmol/L Normal 98-107 [facility] CO2 [Moles/Vol] 25 mmol/L Normal 22-29 [facility] Creatinine [Mass/Vol] 0.7 mg/dL Normal 0.5-1.0 [facility] GFR Calculated >60 Normal >=60 [facility] Comment on above: Result Comment: Dion atric [...] secretion. Glucose [Mass/Vol] 96 mg/dL Normal 74-99 [facility] Potassium [Moles/Vol] 4.5 mmol/L Normal 3.5-5.0 [facility] Protein [Mass/Vol] 6.9 g/dL Normal 6.4-8.3 [facility] Sodium [Moles/Vol] 137 mmol/L Normal 132-146 [facility] Urea nitrogen [Mass/Vol] 17 mg/dL Normal 6-20 [facility] Albumin [Mass/Vol] 4.1 g/dL 3.5 - 5.2 g/dL [facility] ALP (Bld) [Catalytic activity/Vol] 64 U/L 35 - 104 U/L [facility] ALT [Catalytic activity/Vol] 22 U/L 0 - 32 U/L [facility] Anion gap [Moles/Vol] 10 mmol/L 7 - 16 mmol/L [facility] AST [Catalytic activity/Vol] 13 U/L 0 - 31 U/L [facility] Bilirubin [Mass/Vol] 0.2 mg/dL 0.0 - 1 .2 mg/dL [facility] Calcium [Mass/Vol] 8.9 mg/dL 8.6 - 10. 2 mg/dL [facility] Chloride [Moles/Vol] 102 mmol/L 98 - 10 7 mmol/L [facility] CO2 [Moles/Vol] 25 mmol/L 22 - 29 mmol/L [facility] Creatinine [Mass/Vol] 0.7 mg/dL 0.5 - 1.0 mg/dL [facility] GFR/1.73 sq M.predicted MDRD (S/P/Bld) [Vol rate/Area] mL/min/1.73 60 - PINF mL/min/1.73 [facility] Comment on above: Pediatric calculator link [...] [Mass/Vol] 96 mg/dL 74 - 99 mg/dL [facility] Potassium [Moles/Vol] 4.5 mmol/L 3.5 - 5.0 mmol/L [facility] Protein [Mass/Vol] 6.9 g/dL 6.4 - 8.3 g/dL [facility] Sodium [Moles/Vol] 137 mmol/L 132 - 146 mmol/L [facility] Urea nitrogen (BldV) [Mass/Vol] 17 mg/dL 6 - 20 mg/dL [facility] Ferritinon 05-04-2022 Ferritin [Mass/Vol] 69 ng/mL Normal [facility] Comment on above: Result Comment: FERR ITIN Reference Ranges: Adult Males 20 - 60 years: 30 - 400 ng/mL Adult females 17 - 60 years: 13 - 150 ng/mL Adults greater than 60 years: no established reference range Pediatrics: no established reference range Folateon 05-04-2022 Folate 8.5 ng/mL Normal 4.8-24.2 [facility] Hgb A1Con 05-04-2022 HbA1c (Bld) [Mass fraction] 5.7 % High 4.0-5.6 [facility] METER GLUCOSEon 05-04-2022 Glucose [Mass/Vol] 93 mg/dL Normal 74-99 [facility] Glucose [Mass/Vol] 96 mg/dL Normal 74-99 [facility] No Panel Informationon 05-04 [employer] Work Phone: POC Urine Qualon 1 07-04-2021 Beta HCG ( test) Ql (U) Negative Negative [employer] Work Phone: Lot Number [id number] [employer] Work Phone: Negative QC Pass/Fail [employer] Phone: Positive QC Pass/Fail [employer] Phone: [employer] Phone: POCT Glucoseon 05-04-2022 Glucose [Mass/Vol] 93 mg/dL 74 - 99 mg/dL [employer] Glucose [Mass/Vol] 96 mg/dL 74 - 99 mg/dL [facility] [employer] [facility] [employer] Prealbuminon 05-04-2022 Prealbumin [Mass/Vol] 24 mg/dL Normal 20-40 [facility] Surgical Specimenon 05-04-20 [address] [place], [place] [id number] FINAL SURGICAL PATHOLOGY REPORT NAME: BATOOL KINGSLEY Date of 05/04/2022 Collection: Medical Record [id number] Date of 05/04/2022 Number: Receipt: Age: 22 Y Sex: F Date 05/11/2022 08:29 Reported: Date Of : 2000 Financial [id number] Admitting DERIC FLORENCE Number: Physician: Patient DIS ENDOPLNON Ordering DERIC [...] submitted. Block label: A1. (JORGE L:YAYA) CODES: [id number]; Department of Pathology Page 1 of 1 Normal [facility] Triglycerideon 05-04-2022 Interpretation and review of laboratory results Abnormal [facility] Triglyceride [Mass/Vol] 274 mg/dL High 0 - 149 mg/dL [facility] Triglycerideson 05-04-2022 Triglyceride [Mass/Vol] 274 mg/dL High 0-149 [facility] Vitamin B12on 05-04-2022 Cobalamin (Vitamin B12) [Mass/Vol] 226 pg/mL Normal 211-946 [facility] US GALLBLADDER RUQon 022 US GALLBLADDER RUQ [...] Rohit Dowling MD 05/02/22 Final result Normal [facility] Comment on above: Order Comment: Reaso n for exam:->Indigestion What reading provider will be dictating this exam?->CRC CBC Auto DifferentialOrdered By: Win Narvaez on 03-27-2021 Basophils (Bld) [#/Vol] 0.05 10*3/uL [employer] Phone: Basophils/100 WBC (Bld) 0.5 % 0.0 - 2.0 % [employer] Phone: Eosinophils Absolute 0.37 [employer] Phone: Eosinophils/100 WBC (Bld) 3.8 % 0.0 - 6.0 % [facility] Phone: Hematocrit (Bld) [Volume fraction] 39.5 % 34.0 - 48.0 % [facility] Phone: Hemoglobin.gastrointes tinal spec 1 Ql (Stl) 12.6 g/dL 11.5 - 15.5 g/dL [facility] Phone: Immature Granulocytes # 0.18 E9/L [facility] Phone: Immature granulocytes/100 WBC (Bld) 1.8 % 0.0 - 5.0 % [facility] Phone: Interpretation and review of laboratory results Abnormal [facility] Phone: Lymphocytes Absolute 3.73 [employer] Phone: Lymphocytes/100 WBC (Bld) 38.2 % 20.0 - 42.0 % [facility] Phone: MCH (RBC) [Entitic mass] 28.9 pg 26.0 - 35.0 pg [facility] Phone: MCHC (RBC) [Mass/Vol] 31.9 % Low 32.0 - 34.5 % [facility] Phone: MCV (RBC) [Entitic vol] 90.6 fL 80.0 - 99.9 fL [facility] Phone: Monocytes Absolute 0.46 [facility] Phone: Monocytes/100 WBC (Bld) 4.7 % 2.0 - 12.0 % [facility] Phone: Neutrophils Absolute 4.97 [employer] Phone: Neutrophils/100 WBC (Bld) 51.0 % 43.0 - 80.0 % [facility] Phone: Platelet distribution width (Bld) [Ratio] 13.3 fL 11.5 - 15.0 fL [facility] Phone: Platelet mean volume (Bld) [Entitic vol] 9.7 fL 7.0 - 12.0 fL [facility] Phone: Platelets (Bld) [#/Vol] 281 10*3/uL [facility] Phone: RBC (Bld) [#/Vol] 4.36 10*6/uL [facility] Phone: WBC (Bld) [#/Vol] 9.8 10*3/uL [facility] Phone: Comprehensive Metabolic Pane l w/ Reflex to MGOrdered By: Win Narvaez on 03-27-2021 Albumin [Mass/Vol] 4.2 g/dL 3.5 - 5.2 g/dL [facility] Phone: ALP (Bld) [Catalytic activity/Vol] 64 U/L 35 - 104 U/L [facility] Phone: ALT [Catalytic activity/Vol] 19 U/L 0 - 32 U/L [facility] Phone: Anion gap [Moles/Vol] 12 mmol/L 7 - 16 mmol/L [facility] Phone: AST [Catalytic activity/Vol] 14 U/L 0 - 31 U/L [facility] Phone: Bilirubin [Mass/Vol] mg/dL 0.0 - 1 .2 mg/dL [facility] Phone: Calcium [Mass/Vol] 9.1 mg/dL 8.6 - 10. 2 mg/dL [facility] Phone: Chloride [Moles/Vol] 103 mmol/L 98 - 10 7 mmol/L [facility] Phone: CO2 [Moles/Vol] 22 mmol/L 22 - 29 mmol/L [facility] Phone: Creatinine [Mass/Vol] 0.5 mg/dL 0.5 - 1.0 mg/dL [facility] Phone: Free PSA/Total PSA [Mass fraction] 7.1 g/dL 6.4 - 8.3 g/dL [facility] Phone: GFR >60 [employer] Phone: GFR Non- >60 >=60 mL/min/1.73 [facility] Phone: Comment on above: Chronic Kidney Disea se: less than 60 ml/min/1.73 sq.m. Kidney Failure: less than 15 ml/min/1.73 sq.m. Results valid for patients 18 years and older. Glucose [Mass/Vol] 107 mg/dL High 74 - 99 mg/dL [facility] Phone: Interpretation and review of laboratory results Abnormal [facility] Phone: Potassium [Moles/Vol] 4.2 mmol/L 3.5 - 5.0 mmol/L [facility] Phone: Sodium [Moles/Vol] 137 mmol/L 132 - 146 mmol/L [facility] Phone: Urea nitrogen (BldV) [Mass/Vol] 9 mg/dL 6 - 20 mg/dL [facility] Phone: [facility] Phone: Microscopic UrinalysisOrdere d By: Win Narvaez on 03-27-2021 Bacteria, UA FEW Abnormal None Seen /HPF [facility] Phone: Epithelial Cells, UA FEW /HPF [employer] Phone: Interpretation and review of laboratory results Abnormal [facility] Phone: RBC, UA 2-5 [facility] Phone: WBC, UA 0-1 [facility] Phone: [facility] Phone: No Panel InformationOrdered By: Win Narvaez on 03-27-2021 [facility] Phone: POC Urine QualOrde red By: Win Narvaez on 03-27-2021 Beta HCG ( test) Ql (U) Negative Negative [facility] Phone: Beta HCG ( test) Ql (U) [id number] [facility] Phone: Negative QC Pass/Fail Pass [facility] Phone: Positive QC Pass/Fail Pass [facility] Phone: US PELVIS COMPLETEOrdered By : Tien Oneal on 03-27-2021 The bilateral ovaries are mildly enlarged, right greater than left. Otherwise, unremarkable pelvic ultrasound. [facility] Phone: EXAMINATION: PELVIC ULTRASOUND 03/27/2021 TECHNIQUE: Multiple [...] Free Fluid: No evidence of free fluid. [facility] Phone: Antonio, Mhy Incoming Radiant Results From OM Latam - 03/27/2021 3:01 PM EDT EXAMINATION: PELVIC [...] greater than left. Otherwise, unremarkable pelvic ultrasound. [facility] Phone: [facility] Phone: UrinalysisOrdered By: Win Narvaez on 03-27-2021 Bilirubin Urine Negative Negative [employer] Work Phone: Blood, Urine LARGE Abnormal Negative [facility] Phone: Clarity, UA Clear Clear [facility] Phone: Color, UA Yellow Straw/Yellow [facility] Phone: Glucose, Ur Negative Negative mg/dL [facility] Phone: Interpretation and review of laboratory results Abnormal [facility] [employer] Work Phone: Ketones Ql (U) Negative Negative mg/dL [facility] [employer] [facility] Work Phone: Leukocyte esterase Test strip Ql (U) Negative Negative [facility] [employer] Work Phone: Nitrite, Urine Negative Negative [employer] [facility] Work Phone: pH, UA [facility].[address] [facility] [employer] Work Phone: Protein, UA TRACE Negative mg/dL [facility] Work Phone: Specific [place], UA >=1.030 [facility] [employer] Work Phone: Urobilinogen, Urine 0.2 <2.0 E.U./dL [facility] Work Phone: [facility] Work Phone: NOSE/THROAT CULTUREon 2020 NOSE/THROAT CULTURE RUN DATE: 07/10/20 Laboratory LIVE PAGE 1 RUN TIME: 951 Specimen Inquiry RUN USER: INTERFACE [facility] Department of Laboratories [address] [place], [place] [id number] PATIENT: KYLIE KINGSLEYISIS Rangel LOC: ALONDRA U #: [id number] HOME PHONE: AGE/SX: / ROOM: RE07/08/[address]: Ameena Corcoran APRN.CNP.: 99 BED: DIS: STATUS: REG REF LAB O/S: Specimen: [id number] Collected: 07/08/20 Status: RASHAUN Req#: [id number] Received: 07/08/20 Source: THROAT Sp Desc: Subm Dr: Ameena Corcoran APRN.CNP Ordered: NOSE/THRT CULT Procedure Result Verified > NOSE/THROAT CULTURE Final 07/10/20 HEAVY GROWTH OF NORMAL ARIN END OF REPORT Normal [facility] Comment on above: Performed By: #### C ULTNT #### [facility] [address] [address] Vital Signs Date Time Vital Sign Value Performing Clinician Faci lity 10-30-2022 08:56-0400 SaO2% (BldA) [Mass fraction] 97 % Deric Florence MD Work Phone: [facility] 10-30-2022 05:00-0400 Body temperature 97.9 [degF] Deric Florence MD Work Phone: [facility] 10-30-2022 05:00-0400 Diastolic blood pressure 74 mm[Hg] Deric Florence MD Work Phone: [facility] 10-30-2022 05:00-0400 Heart rate 74 /min Deric Florence MD Work Phone: [employer] 10-30-2022 05:00-0400 Respiratory rate 18 /min Deric Florence MD Work Phone: [facility] 10-30-2022 05:00-0400 Systolic blood pressure 126 mm[Hg] Deric Florence MD Work Phone: [facility] 10-29-2022 06:50-0400 Body height 170.2 cm Deric Florence MD Work Phone: [employer] 10-29-2022 06:50-0400 Body mass index (BMI) [Ratio] 55.6 kg/m2 Deric Florence MD Work Phone: [facility] 10-29-2022 06:50-0400 Body weight 161.03 kg Deric Florence MD Work Phone: [facility] 10-24-2022 12:17-0400 Body height 170.2 cm Sjwz 2 [employer] 10-24-2022 12:17-0400 Body mass index (BMI) [Ratio] 55.44 kg/m2 Sjwz 2 [facility] [employer] 10-24-2022 12:17-0400 Body temperature 98.01 [degF] Sjwz 2 [facility] [employer] 10-24-2022 12:17-0400 Body weight 160.57 kg Sjwz 2 [facility] [employer] 10-24-2022 12:17-0400 Diastolic blood pressure 62 mm[Hg] Sjwz 2 [facility] 10-24-2022 12:17-0400 Heart rate 77 /min Sjwz 2 [facility] [employer] 10-24-2022 12:17-0400 Respiratory rate 16 /min [facility]z 2 [facility] [employer] [employer] 10-24-2022 12:17-0400 SaO2% (BldA) [Mass fraction] 95 % Sjwz 2 [facility] [employer] 10-24-2022 12:17-0400 Systolic blood pressure 117 mm[Hg] Sjwz 2 [facility] [employer] [employer] 05-04-2022 08:55-0400 Body temperature 98.29 [degF] Deric Florence MD Work Phone: [facility] [employer] 05-04-2022 08:55-0400 Diastolic blood pressure 68 mm[Hg] Deric Florence MD Work Phone: [facility] [employer] 05-04-2022 08:55-0400 Heart rate 83 /min Deric Florence MD Work Phone: [facility] [employer] 05-04-2022 08:55-0400 Respiratory rate 16 /min Deric Florence MD Work Phone: [facility] [employer] 05-04-2022 08:55-0400 SaO2% (BldA) [Mass fraction] 92 % Deric Florence MD Work Phone: [facility] [employer] 05-04-2022 08:55-0400 Systolic blood pressure 128 mm[Hg] Deric Florence MD Work Phone: [facility] [employer] 05-04-2022 07:06-0400 Body height 170.2 cm Deric Florence MD Work Phone: [employer] 05-04-2022 07:06-0400 Body mass index (BMI) [Ratio] 61.21 kg/m2 Deric Florence MD Work Phone: [employer] 05-04-2022 07:06-0400 Body weight 177.27 kg Deric Florence MD Work Phone: [employer] 03-27-2021 20:08-0400 Heart rate 95 /min Tien Jonokirstierhonda [employer] Work Phone: [employer] Work Phone: 03-27-2021 13:47-0400 Body height 170.2 cm Tien Patriciarhonda [employer] Work Phone: [employer] Work Phone: 03-27-2021 13:47-0400 Body mass index (BMI) [Ratio] 54.82 kg/m2 Tien Jonokirstierhonda [employer] Work Phone: [employer] Work Phone: 03-27-2021 13:47-0400 Body temperature 97.11 [degF] Tien Jonokirstierhonda [employer] Work Phone: [employer] Work Phone: 03-27-2021 13:47-0400 Body weight 158.76 kg Tien Oneal Work Phone: [employer] Work Phone: 03-27-2021 13:47-0400 Diastolic blood pressure 80 mm[Hg] Tien Oneal [employer] Work Phone: [employer] Work Phone: 03-27-2021 13:47-0400 Respiratory rate 16 /min Tien Oneal [employer] Work Phone: [employer] Work Phone: 03-27-2021 13:47-0400 SaO2% (BldA) [Mass fraction] 98 % Tien Oneal DO Work Phone: [employer] Work Phone: 03-27-2021 13:47-0400 Systolic blood pressure 173 mm[Hg] Tien Oneal DO Work Phone: [employer] Work Phone: Encounters Encounter Date Encounter Type Care Provider Facility Start: 12-12-2023 End: 12-12-2023 ambulatory Not Available Start: 11-10-2023 End: 11-10-2023 Emergency department patient visit NO PCP NO PCP [facility] Start: 08-14-2023 End: 08-14-2023 Emergency department patient visit TRAVIS VALLEJO [facility] Start: 12-14-2022 ambulatory [facility] Facility:[facility] Start: 12-03-2022 ambulatory [facility] Facility:[facility] Start: 11-06-2022 ambulatory [facility] Facility:[facility] Start: 10-29-2022 End: 10-30-2022 Evaluation and management of inpatient [facility] Start: 10-29-2022 End: 10-30-2022 Evaluation and management of inpatient Deric Florence MD Work Phone: [facility] 3 MED SURG Comment on above: Post-operative state (Primary Dx); Morbid obesity (HCC) Start: 10-24-2022 End: 10-25-2022 ambulatory [facility] Start: 10-24-2022 Encounter for other preprocedural examination [facility] Start: 10-24-2022 End: 10-24-2022 Patient encounter status Hans 2 HANS PRE ADMIT TESTING Start: 10-24-2022 End: 10-24-2022 Subsequent hospital visit by physician Hans Pat Room 2 [facility] PRE ADMIT TESTING Comment on above: Preop testing (Prima ry Dx); Malnutrition following gastrointestinal surgery Start: 10-04-2022 [facility] Facility:[facility] Start: 08-13-2022 ambulatory KAELA EILEEN Facility:[facility] Start: 07-31-2022 ambulatory KAELA EILEEN Facility:[facility] Start: 07-13-2022 ambulatory KAELA EILEEN Facility:[facility] Start: 06-14-2022 ambulatory KAELA EILEEN Facility:[facility] Start: 05-04-2022 End: 05-04-2022 ambulatory KAELA [facility] Start: 05-04-2022 End: 05-04-2022 Subsequent hospital visit by physician Deric Florence MD Work Phone: [facility] ENDOSCOPY Comment on above: Morbid obesity due t o excess calories (HCC); Gastroesophageal reflux disease Start: 05-02-2022 End: 05-05-2022 ambulatory DERIC FLORENCE [facility] Start: 03-27-2021 End: 03-27-2021 Emergency department patient visit Tien Oneal DO Work Phone: [facility] Comment on above: DUB (dysfunctional u terine bleeding) (Primary Dx) Procedures Date Procedure Procedure Detail Performing Clinician Start: 10-30-2022 INCENTIVE SPIROMETRY RT KAELA EILEEN Start: 10-30-2022 Gluc bld gluc mntr d ev cleared fda spec home use KAELA EILEEN Start: 10-30-2022 INCENTIVE SPIROMETRY RT KAELA EILEEN Start: 10-30-2022 NASAL CANNULA OXYGEN SA RA EILEEN Start: 10-30-2022 DISCHARGE PATIENT KAELA EILEEN Start: 10-30-2022 INCENTIVE SPIROMETRY RT KAELA EILEEN Start: 10-30-2022 Hepatic function panel KAELA EILEEN Start: 10-30-2022 Basic metabolic pane l calcium total KAELA EILEEN Start: 10-30-2022 End: 10-30-2022 Basic metabolic panel calcium total Yangsarahi Hsu MANAGER DISCOVERY - SENIOR ERP CONSULTANT Work Phone: Start: 10-30-2022 Lipid panel Yang Ferguson MANAGER DISCOVERY - SENIOR ERP CONSULTANT Work Phone: Start: 10-30-2022 Gluc bld gluc mntr d ev cleared fda spec home use KAELA EILEEN Start: 10-30-2022 INCENTIVE SPIROMETRY RT KAELA EILEEN Start: 10-29-2022 Gluc bld gluc mntr d ev cleared fda spec home use KAELA EILEEN Start: 10-29-2022 INCENTIVE SPIROMETRY RT KAELA EILEEN Start: 10-29-2022 Gluc bld gluc mntr d ev cleared fda spec home use Unknown Provider Result Start: 10-29-2022 INCENTIVE SPIROMETRY RT KAELA EILEEN Start: 10-29-2022 INCENTIVE SPIROMETRY RT KAELA EILEEN Start: 10-29-2022 Gluc bld gluc mntr d ev cleared fda spec home use KAELA EILEEN Start: 10-29-2022 INCENTIVE SPIROMETRY RT KAELA EILEEN Start: 10-29-2022 Gluc bld gluc mntr d ev cleared fda spec home use Unknown Provider Result Start: 10-29-2022 Urine test visual color cmprsn meths Eugene Monique MD Work Phone: Start: 10-29-2022 NOTIFY PHYSICIAN (SPECIFY) KAELA EILEEN Start: 10-29-2022 REASON FOR NOT SELEC TING BASAL INSULIN KAELA EILEEN Start: 10-29-2022 ENCOURAGE DEEP BREAT MADDI AND COUGHING KAELA EILEEN Start: 10-29-2022 IP CONSULT TO HOSPITALIST KAELA EILEEN Start: 10-29-2022 AMBULATE PATIENT KAELA P EASE Start: 10-29-2022 BARIATRIC DIET KAELA PEA SE Start: 10-29-2022 INCENTIVE SPIROMETRY RT KAELA EILEEN Start: 10-29-2022 VITAL SIGNS KAELA EILEEN Start: 10-29-2022 Hemoglobin glycosylated a1c Yang Hsu MANAGER DISCOVERY - SENIOR ERP CONSULTANT Work Phone: Start: 10-29-2022 Gluc bld gluc mntr d ev cleared fda spec home use Unknown Provider Result Start: 10-29-2022 ADMIT TO INPATIENT KAELA EILEEN Start: 10-29-2022 Level iv surg pathol ogy gross&microscopic exam KAELA EILEEN Start: 10-29-2022 Gluc bld gluc mntr d ev cleared fda spec home use KAELA EILEEN Start: 10-29-2022 IP CONSULT TO IV TEAM S ISABELL EILEEN Start: 10-29-2022 FULL CODE KAELA EILEEN Start: 10-29-2022 End: 10-29-2022 Laps gstr rstcv px w/byp nuno-en-y limb <150 cm Deric Florence MD Work Phone: Start: 10-29-2022 Gluc bld gluc mntr d ev cleared fda spec home use Unknown Provider Result Start: 10-24-2022 Blood count complete auto&auto difrntl wbc KAELA EILEEN Start: 10-24-2022 Comprehensive metabo lic panel Deric Florence MD Work Phone: Start: 10-24-2022 PAT PROTOCOL KAELA EILEEN Start: 05-04-2022 Urine test visual color cmprsn meths Antonio Israel MD Work Phone: Start: 05-04-2022 Gluc bld gluc mntr d ev cleared fda spec home use KAELA EILEEN Start: 05-04-2022 DISCHARGE PATIENT KAELA EILEEN Start: 05-04-2022 Level iv surg pathol ogy gross&microscopic exam KAELA EILEEN Start: 05-04-2022 DIAGNOSIS FOR PROCEDURE KAELA EILEEN Start: 05-04-2022 DIET NPO KAELA EILEEN Start: 05-04-2022 FULL CODE KAELA EILEEN Start: 05-04-2022 NOTIFY PHYSICIAN (SPECIFY) KAELA EILEEN Start: 05-04-2022 PROCEDURE CONSENT KAELA EILEEN Start: 05-04-2022 VERIFY INFORMED CONSENT KAELA EILEEN Start: 05-04-2022 VITAL SIGNS KAELA EILEEN Start: 05-04-2022 Gluc bld gluc mntr d ev cleared fda spec home use Unknown Provider Result Start: 05-04-2022 End: 05-04-2022 Comprehensive metabolic panel Deric Florence MD Work Phone: Start: 05-02-2022 Us abdominal real ti me w/image limited DERIC FLORENCE Start: 03-27-2021 Blood count complete auto&auto difrntl wbc Win Narvaez PA-C Work Phone: Start: 03-27-2021 Urinalysis microscopic only Win Narvaez PA-C Work Phone: Start: 03-27-2021 End: 09-27-2021 Urnls dip stick/tablet rgnt auto w/o microscopy Win Narvaez PA-C Work Phone: Start: 03-27-2021 Us pelvic nonobstetr ic real-time image complete Tien Oneal DO Work Phone: Plan of Treatment Date Care Activity Detail Author Start: 10-31-2023 GFR test (Diabetes, CKD 3-4, OR last GFR 15-59) GFR test (Diabetes, CKD 3-4, OR last GFR 15-59) [employer] [facility] [employer] Start: 10-31-2023 Lipid panel Lipids [facility] Start: 10-30-2023 Hemoglobin A1c measurement A1C test (Diabetic or Prediabetic) [facility] [employer] Start: 10-25-2023 GFR test (Diabetes, CKD 3-4, OR last GFR 15-59) GFR test (Diabetes, CKD 3-4, OR last GFR 15-59) [facility] [employer] Start: 05-04-2023 Hemoglobin A1c measurement A1C test (Diabetic or Prediabetic) [facility] [employer] [employer] Start: 05-04-2023 Lipid panel Lipids [facility] Start: 01-29-2023 Influenza vaccination Flu vaccine (Season Ended) [facility] [employer] Start: 11-14-2022 End: 11-14-2022 Patient encounter procedure 11/14/2022 Office Visit Bariatrics Deric Florence MD [address] [place] [address] [facility] Start: 10-29-2022 End: 10-29-2022 Admission to same day surgery center 10/29/2022 Surgery IP Unit Deric Florence MD [address] [place] [address] GASTRIC BYPASS NUNO-EN-Y LAPAROSCOPICNEEDS IV TEAM HANS OR Comment on above: GASTRIC BYPASS NUNO-EN-Y LAPAROSCOPICN EEDS IV TEAM Start: 10-29-2022 End: 10-29-2022 Laps gstr rstcv px w/byp nuno-en-y limb <150 cm GASTRIC BYPASS NUNO-EN-Y LAPAROSCOPIC Morbid obesity (HCC) 10/29/2022 9:00 AM EDT [facility] Start: 10-29-2022 Subsequent hospital visit by physician 10/29/2022 Hospital Encounter IP Unit Deric Florence MD [address] [place] [address] [facility] Start: 05-11-2022 End: 05-11-2022 Patient encounter procedure [facility] Start: 05-04-2022 End: 05-04-2022 Egd transoral biopsy single/multiple EGD ESOPHAGOGASTRODUODENOSCOPY Gastroesophageal reflux disease 05/04/2022 8:18 AM EDT [facility] Start: 01-29-2022 Influenza vaccination Flu vaccine (#1) [facility] Start: 03-01-2021 Influenza vaccination Flu vaccine (#1) [facility] Phone: Start: 01-22-2020 Screening for malignant neoplasm of cervix Pap smear [facility] Start: 09-23-2019 Hepatitis B vaccine (3 of 3 - Risk 3-dose series) Hepatitis B vaccine (3 of 3 - Risk 3-dose series) [facility] Start: 2018 DTaP/Tdap/Td vaccine (1 - Tdap) DTaP/Tdap/Td vaccine (1 - Tdap) [facility] [employer] [facility] Start: 2017 Glaucoma screening Diabetic retinal exam [facility] Start: 2017 Hepatitis C screening Hepatitis C screen [facility] Start: 2017 Urine screening for protein Diabetic Alb to Cr ratio (uACR) test [facility] Start: 2015 Screening for Chlamydia trachomatis [facility] [employer] Start: 2014 HIV screening HIV screen [facility] [employer] Start: 2011 COVID-19 Vaccine (1) COVID-19 Vaccine (1) [facility] Phone: Start: 2011 Depression Monitoring Depression Monitoring [employer] Start: 2011 Depression Screen Depression Screen [facility] Start: 2010 HPV vaccine (1 - 2-dose series) HPV vaccine (1 - 2-dose series) [facility] Start: 2009 Diabetic foot examination Diabetic foot exam [facility] Start: 2005 Pneumococcal 0-64 years Vaccine (1 - PCV) Pneumococcal 0-64 years Vaccine (1 - PCV) [facility] Start: 01-22-2000 Varicella vaccine (1 of 2 - 2-dose childhood series) Varicella vaccine (1 of 2 - 2-dose childhood series) [facility] Start: 1999 COVID-19 Vaccine (#1) COVID-19 Vaccine (#1) [employer] Start: 1999 Hepatitis C screening Hepatitis C screen [facility] Phone: End: 10-29-2023 Basic metabolic 2000 panel - Serum or Plasma Basic Metabolic Panel Lab Routine Daily for 365 Days starting 10/30/2022 until 10/29/2023, 1 completed [employer] Phone: Comment on above: Daily for 365 Days starting 10/30/2022 u ntil 10/29/2023, 1 completed End: 10-29-2023 CBC W Auto Differential panel - Blood CBC with Auto Differential Lab Routine Daily for 365 Days starting 10/30/2022 until 10/29/2023, 1 completed [employer] Phone: Comment on above: Daily for 365 Days starting 10/30/2022 u ntil 10/29/2023, 1 completed End: 03-27-2021 Culture, Urine Culture, Urine Microbiology Routine One Time for 1 Occurrences starting 03/27/2021 until 03/27/2021 [facility] Phone: Comment on above: One Time for 1 Occurrences starting 03/02 until 03/27/2021 End: 05-04-2022 Cyanocobalamin vitamin b-12 [employer] Phone: Comment on above: 1 Occurrences starting 05/04/2022 until 05/04/2022 End: 05-04-2022 Ferritin [Mass/volume] in Serum or Plasma [employer] Phone: Comment on above: 1 Occurrences starting 05/04/2022 until 05/04/2022 End: 05-04-2022 Folate [employer] Phone: Comment on above: 1 Occurrences starting 05/04/2022 until 05/04/2022 Glucose [Mass/volume ] in Serum or Plasma [employer] Phone: Comment on above: 4X Daily (AC & HS) until discontinued st arting 10/29/2022 As Needed until disc ontinued starting 10/29/2022 End: 05-04-2022 Hemoglobin A1c/Hemoglobin.total in Blood [employer] Phone: Comment on above: 1 Occurrences starting 05/04/2022 until 05/04/2022 End: 10-30-2022 Hemoglobin A1c/Hemoglobin.total in Blood Hemoglobin A1C Lab Routine Tomorrow AM for 1 Occurrences starting 10/30/2022 until 10/30/2022 [employer] Phone: Comment on above: Tomorrow AM for 1 Occurrences starting 0 10/30/2022 until 10/30/2022 Hemoglobin A1c/Hemoglobin.total in Blood Hemoglobin A1C Lab Routine 10/30/2022 4:51 AM EDT [employer] Phone: End: 10-29-2023 Hepatic function 2000 panel - Serum or Plasma Hepatic Function Panel Lab Routine Daily for 365 Days starting 10/30/2022 until 10/29/2023, 1 completed [employer] Phone: Comment on above: Daily for 365 Days starting 10/30/2022 u ntil 10/29/2023, 1 completed End: 10-29-2023 Magnesium [Mass/volume] in Serum or Plasma Magnesium Lab Routine Daily for 365 Days starting 10/30/2022 until 10/29/2023, 1 completed [employer] Phone: Comment on above: Daily for 365 Days starting 10/30/2022 u ntil 10/29/2023, 1 completed Nasal Cannula Oxygen Nasal Cannu la Oxygen Respiratory Care Routine Daily until discontinued starting 10/30/2022 [employer] Phone: Comment on above: Daily until discontinued starting 2022 Oxygen therapy [Minimum Data Set] Initiate Oxygen Therapy Protocol Respiratory Care Routine As Needed until discontinued starting 10/29/2022 [employer] Phone: Comment on above: As Needed until discontinued starting End: 10-29-2023 Phosphate [Mass/volume] in Serum or Plasma Phosphorus Lab Routine Daily for 365 Days starting 10/30/2022 until 10/29/2023, 1 completed [employer] Phone: Comment on above: Daily for 365 Days starting 10/30/2022 u ntil 10/29/2023, 1 completed End: 05-04-2022 Prealbumin [Mass/volume] in Serum or Plasma [employer] Phone: Comment on above: 1 Occurrences starting 05/04/2022 until 05/04/2022 End: 10-29-2022 Spirometry panel [employer] Phone: Comment on above: Continuous until discontinued starting 0 10/29/2022 Every 2hr while awak e until discontinued starting 10/29/2022 Surgical Pathology Surgical Path ology Lab Routine Gastroesophageal reflux disease Release Upon Ordering for 1 Occurrences starting 05/04/2022 [employer] Phone: Comment on above: Release Upon Ordering for 1 Occurrences starting 05/04/2022 Surgical Pathology Surgical Path ology Lab Routine Morbid obesity (HCC) Release Upon Ordering for 1 Occurrences starting 10/29/2022 [employer] Phone: Comment on above: Release Upon Ordering for 1 Occurrences starting 10/29/2022 End: 05-04-2022 Vitamin B1 Vitamin B1 Lab Routine Morbi d obesity due to excess calories (HCC) 1 Occurrences starting 05/04/2022 until 05/04/2022 [employer] Phone: Comment on above: 1 Occurrences starting 05/04/2022 until 05/04/2022 End: 05-04-2022 Zinc Zinc Lab Routine Morbid obes ity due to excess calories (HCC) 1 Occurrences starting 05/04/2022 until 05/04/2022 [employer] Phone: Comment on above: 1 Occurrences starting 05/04/2022 until 05/04/2022 Immunizations Immunization Date Immunization Notes Care Provider Lito enriquez 10-24-2020 tuberculin skin test ; purified protein derivative solution, intradermal Sjwz 2 [employer] Phone: 05-25-2019 hepatitis B vaccine, adult dosage Sjwz 2 [employer] Phone: 04-01-2019 hepatitis B vaccine, adult dosage Sjwz 2 [employer] Phone: 04-01-2019 meningococcal B vacc ine, recombinant, OMV, adjuvanted Sjwz 2 [employer] Phone: 04-01-2019 tuberculin skin test ; purified protein derivative solution, intradermal Sjwz 2 [employer] Phone: Payers Date Payer Category Payer Private Health Insurance [id number] 2020 Private Health Insurance [id number] 1999 Unknown [id number] 2.16. 840.1.490509.3.579.2.204 1999 Unknown [id number] 2.16. 840.1.884956.3.579.2.204 1999 Unknown [id number] 2.16. 840.1.485642.3.579.2.204 1999 Unknown [id number] 2.16. 840.1.659637.3.579.2.204 1999 Unknown [id number] 2.16.8 40.1.037196.3.579.2.1286 1999 Unknown [id number] 2.16.8 40.1.945403.3.579.2.1286 1999 Unknown [id number] 2.16.84 0.1.186878.3.579.2.1259 Unknown [id number] 2.16.8 40.1.564367.3.579.2.212 Unknown [id number] 2.16.8 40.1.680631.3.579.2.212 Unknown [id number] 2.16.8 40.1.617937.3.579.2.212 Unknown [id number] 2.16.8 40.1.189707.3.579.2.212 Unknown [id number] 2.16.8 40.1.358210.3.579.2.212 Unknown [id number] 2.16.8 40.1.790084.3.579.2.212 Unknown [id number] 2.16.8 40.1.614324.3.579.2.212 Unknown [id number] 2.16.8 40.1.962054.3.579.2.212 Unknown [id number] 2.16.8 40.1.744972.3.579.2.212 Social History Date Type Detail Facility Tobacco smoking stat [facility] Unknown if ever smoked [employer] Phone: Start: 2000 Sex Assigned At Not on file [employer] Phone: Start: 04-23-2022 End: 05-03-2022 Exposure to SARS-CoV-2 (event) Not sure [employer] Start: 05-03-2022 End: 10-24-2022 Tobacco smoking status NHIS Ex-smoker [employer] Phone: End: 12-29-2021 History of tobacco use Current smoker [employer] Phone: End: 12-29-2021 History of tobacco use Cigarette Smoker [employer] Phone: Start: 05-03-2022 End: 10-24-2022 Tobacco use and exposure Smokeless tobacco non-user [employer] Phone: Start: 05-04-2022 End: 10-30-2022 Alcohol intake Current drinker of alcohol (finding) [employer] Phone: Start: 05-03-2022 Tobacco Comment Quit 12/2021 [employer] Phone: Start: 05-03-2022 Alcohol Comment occ [employer] Phone: Start: 10-29-2022 History SDOH Alcohol Frequency 1 [employer] Phone: Clinical Notes 05-04-2022 to 10-30-2022 Discharge InstructionsAttachmentsDeric Florence MD - 10/30/2022 6:48 AM Kartik Mason DO - 10/30/2022 6:36 AM Maria Luisa Spangler RN - 10/24/2022 1:00 PM EDTDischarge Instructions Note Date & Type Note Facility 10-30-2022 Hospital Discharg e instructions Lashawn Ordoñez RN - 10/30/2022 6:49 AM EDT Your information: Name: Batool Claire Garciacathy : 2000 Dr. Florence's Discharge Instructions for Bariatric Surgery [facility] Discharge Instructions For [...] blood sugars as ordered by PCP or Supervisor Color Making. Follow up with PCP or Supervisor Color Making regarding diabetic medications. Make sure you take any medicines you were on for depression or anxiety. FOLLOW-UP Follow-up appointment with surgeon 10-14 days after surgery. Complete lab work prior to this appointment. Follow-up with PCP and/or Supervisor Color Making prior to seeing surgeon. CALL [facility] [phone] IF ANY OF THE FOLLOWING OCCURS TO [...] Weapons (Notify Protective Services/Security): None Other Valuables: [employer], Wallet Home Medications: None Valuables Given To: [...] through Care Everywhere.Gastric Bypass Surgery: Nuno-en-Y: Post-op (North Korean)documented in this encounter [employer] Work Phone: 10-30-2022 Hospital course Narrative Physician Discharge Summary Batool Kingsley [id number] Admit date: 10/29/2022 Discharge date and time: [...] Your Medications These medications were sent to [facility], [address] [phone] - F [phone] [address] [address] traMADol 50 MG tablet Activity: no lifting, [...] 6:48 AM documented in this encounter [employer] Work Phone: 10-30-2022 History of Presen t illness Narrative Internal Medicine Progress Note NATHALIE=[facility] Shanta Hernandez D.O., F.A.C.O.I. Christin Mason D.O., F.A.C.O.I. Shabana RdzO. Francine Kilpatrick, MSN, MANAGER DISCOVERY, SAP ABAP DEVELOPER-C Yang Hsu, MSN, MANAGER DISCOVERY-SENIOR ERP CONSULTANT Primary Care Physician: KAELA ARELLANO APRN - SENIOR ERP CONSULTANT Admitting Physician: Deric Florence MD Admission date and time: 10/29/2022 6:02 AM Room: [address] [place] [address] Admitting diagnosis: Morbid obesity (HCC) [E66.01] Post-operative [...] reflux disease with possible hiatal hernia repair Jil-dhlmqij-xunpeooij diabetes mellitus type 2 Anxiety Plan: Batool [...] available for any further decision-making and intervention. Chrsitin Mason DO, F.A.C.O.I. 10/30/2022 6:37 AM documented in this encounter [employer] [employer] Phone: 10-24-2022 History of Presen t illness Narrative Images from the original note were not included. [facility] PRE OP INSTRUCTIONS FOR Batool Kingsley [...] makeup (including no eye makeup) or nail maldivian on your fingers or toes. DO NOT wear any jewelry or piercings on day of surgery. All body piercing jewelry must be removed. Shower the night before surgery with _x__Antibacterial soap /CHG WIPES___x If you have a Living Will and Durable Power of Test Engineering Technician for Healthcare, please bring in a copy. [...] and go to information desk Please call TEST OPERATOR if you have any further questions. Pre Admit Testing [phone] [facility] [phone] documented in this encounter [facility] [employer] Phone: 05-04-2022 Hospital Discharg e instructions Ashlie [...] the day after the test, use an nvwq-clu-dkxhczg spray to numb your throat. Follow-up care [...] Where can you learn more? Go to [email or web address] and sign in to your [employer] account. Enter J454 in the Search Health Information box to learn more about Upper GI Endoscopy: What to Expect at Home. If you do not have an account, please click on the Sign Up Now link. Current as of: December 04, 2021 Content Version: 13.4 [employer]. Care instructions adapted under license by [employer]. If you have questions about a medical condition or this instruction, always ask your healthcare professional. [employer] disclaims any warranty or liability for your use of this information. documented in this encounter [facility] Work Phone: 05-04-2022 History of Presen t illness Narrative SBAR form completed and placed on chart. Chart with patient in transit. Images from the original note were not included. [facility] PRE OP INSTRUCTIONS FOR Batool Kingsley [...] makeup (including no eye makeup) or nail maldivian on your fingers or toes. DO NOT wear any jewelry or piercings on day of surgery. All body piercing jewelry must be removed. Shower the night before surgery with _x__Antibacterial soap /ALEXANDER WIPES TOTAL JOINT REPLACEMENT/HYSTERECTOMY PATIENTS ONLY---Remember to bring Blood Bank bracelet to the hospital on the day of surgery. If you have a Living Will and Durable Power of Test Engineering Technician for Healthcare, please bring in a copy. [...] safety of all patients. Other Please call TEST OPERATOR if you have any further questions. Pre Admit Testing [phone] [facility] [phone] documented in this encounter [employer] Phone: Evaluation note Diagnosis DUB (dysfunctional uterine bleeding)- Primary Other disorder of menstruation and other abnormal bleeding from female genital tract documented in this encounter [employer] Phone: evaluation note* Diagnosis Gastroesophageal reflux disease- Primary Esophageal reflux Morbid obesity due to excess calories (HCC) documented in this encounter [employer] Phone: evaluation note* Diagnosis Morbid obesity (HCC)- Primary Morbid obesity Preop testing- Primary Preoperative examination, unspecified 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 * AUB (Abnormal Uterine Bleeding) (North Korean) documented in [facility] Phone: Summary Purpose Family History No Family [...] section and content) DATE CREATED AUTHOR 07/16/[address] [facility] DATE CREATED AUTHOR AUTHOR'S ORGANIZ ATION 05/05/2022 [facility] DATE CREATED AUTHOR AUTHOR'S ORGANIZ ATION 02/07/2023 [facility] DATE CREATED AUTHOR AUTHOR'S ORGANIZ ATION 06/04/2023 [facility] DATE CREATED AUTHOR AUTHOR'S ORGANIZ ATION 11/11/2023 [facility] DATE CREATED AUTHOR AUTHOR'S ORGANIZ ATION 12/14/[address] [facility] dical Specialists EPIC Reason for Visit (unrecogniz ed section and content) Reason Comments Vaginal Bleeding 4 pad per hour, larg e clots present Specialty Diagnoses / Procedures Referred By Geronimo reardon Referred To Contact Diagnoses Gastroesophageal reflux disease Gastroesophageal reflux disease [K21.9] Procedures OK EGD TRANSORAL BIOPSY SINGLE/MULTIPLE OK EGD TRANSORAL BIOPSY SINGLE/MULTIPLE OK ESOPHAGOGASTRODUODENOSCOPY TRANSORAL DIAGNOSTIC OK EGD BALLOON DILATION ESOPHAGUS <30 MM DIAM EGD ESOPHAGOGASTRODUODENOSCOPY Deric Florence MD [address] [place] [address] [facility] [address] [place] [address] Referral ID Status Reason Start Date Expiration Date Visits Re quested Visits Authorized [id number] 1 1 Specialty Diagnoses / Procedures Referred By Geronimo t Referred To Contact Diagnoses Morbid obesity (HCC) Morbid obesity (HCC) [E66.01] Procedures OK LAPS GSTR RSTCV PX W/BYP NUNO-EN-Y LIMB <150 CM GASTRIC BYPASS NUNO-EN-Y LAPAROSCOPIC Deric Florence MD [address] [place] [address] [facility] [address] [place] [address] Referral ID Status Reason Start Date Expiration Date Visits Re quested Visits Authorized [id number] 1 1 Continuous Active and Recently Administ [...] 100 mL IVPB (COMPLETED) 3,000 mg, IntraVENous, ELECTROMECHANICAL ASSEMBLER TO O.R., 1 dose, On Sat10/29/22 at 0715, Antimicrobial Indications: Surgical Prophylaxis, Administer within 1 hour prior to incision. Repeat in 3-4 hours after initial dose if still intra-op., Pre-op (day of surgery) 0844 (Given - Provider: Maggie Avila APRN - EMPLOYEE ADVISER) insulin lispro (HUMALOG) injection vial 0-4 Units [...] Fu RN) 0028 (Given - Provider: Jennifer Daria, RN)0516 (Given - Provider: Jennifer Huff RN)1215 (Due)1815 (Due) methocarbamol (ROBAXIN) injection 1,000 mg (COMPLETED) 1,000 mg, IntraVENous, ONCE, 1 dose, On Sat10/29/22 at 1015, Give at a maximum rate of 3 mL/minute Dose 1000 mg may be administered undiluted or diluted over 4 minutes. 1022 (Given - Provider: Khushi Hebert RN) midazolam (VERSED) injection 2 mg (COMPLETED) 2 mg, IntraVENous, ONCE, 1 dose, On Sat10/29/22 at 1015 0951 (Given - Provider: Khushi Hebert RN) ondansetron (ZOFRAN) injection 4 mg (COMPLETED) [...] or Central Line = 20 mL/lumen, Post-op 2030 (Not Given - Provider: Jennifer Huff RN - Reason: IV Fluid Infusing) 0900 (Due)2100 (Due) Continuous Medication Order 10/28/2022 10/29/2022 10/30/2022 lactated ringers IV soln infusion (CANCELED) IntraVENous, at 125 mL/hr, CONTINUOUS, Starting on Sat10/29/22 at 0715, Pre-op (day of surgery) 0720 (New Bag - Provider: Sarahi Stewart, MELANIA) lactated ringers IV soln infusion IntraVENous, at 125 mL/hr, CONTINUOUS, Starting on Sat10/29/22 at 1215, Post-op 1228 (New Bag - Provider: Dena Fu, MELANIA)1229 (Rate/Dose Verify - Provider: Dena Fu RN)1836 (Rate/Dose Verify - Provider: Dena Fu RN)2039 (New Bag - Provider: Jennifer Huff, MELANIA) 0506 (New Bag - Provider: Jennifer Huff, MELANIA) PRN Medication Order 10/28/2022 10/29/2022 10/30/2022 0.9 [...] of order., Post-op bupivacaine-EPINEPHrine PF (MARCAINE-w/EPINEPHrine) 0.25% -[id number] injection (CANCELED) PRN, Starting on Sat10/29/22 at [...] Khushi Hebert, MELANIA)1055 (Given - Provider: Khushi Hebert RN) HYDROmorphone [...] Khushi Hebert RN)1010 (Given - Provider: Khushi Hebert, MELANIA) [...] ordered., Post-op 2030 (Given - Provider: Jennifer Huff, RN) 035 (Given - Provider: Isak Bradshaw, RN)0856 (See [...] Post-op 2030 (See Alternative - Provider: Jennifer Huff, MELANIA) 355 (See Alternative - Provider: Isak Bradshaw, RN)0856 [...]
Care Teams (unrecognized sec tion and content) Salesperson Stereo Equipment Relationship Specialty Start Date End Date Kaela Arellano, MANAGER DISCOVERY - SENIOR ERP CONSULTANT [id number] [place] [address] PCP - General Certified Nurse Practitioner 04/27/22 Salesperson Stereo Equipment Relationship Specialty Start Date End Date Kaela Arellano, MANAGER DISCOVERY - SENIOR ERP CONSULTANT [id number] [facility] [place] [address] PCP - General Certified Nurse Practitioner 09/14/22 Salesperson Stereo Equipment Relationship Specialty Start Date End Date Kaela Arellano, MANAGER DISCOVERY - SENIOR ERP CONSULTANT [phone] [facility] [place] [address] PCP - General Certified Nurse Practitioner 09/14/22 [...] BE BASED ON THE PRIMARY CLINICAL RECORDS. [facility]. provides no warranty or guarantee of the accuracy or completeness of information in this document.
== END 2024-02-10 20:54 | disposition home or self-care (01) ==
LOC: LAB 20:53
PROVIDERS: Visit Provider Obstetrics & Gynecology
DX: Z01.419 Encounter for gynecological examination (general) (routine) without abnormal findings (principal)
CPT/HCPCS: 88175

== ENCOUNTER 2024-03-09 14:29 | Outpatient (OUT) | payer OTHER, SELFPAY ==
[2024-03-09 15:43] LABS: Basophils Percent Auto 0.4 % (0.2-2.0); Eosinophils Absolute Auto 0.1 10^3/uL (0.0-0.7); Eosinophils Percent Auto 0.9 % (0.9-7.0); Hematocrit 29.9 % (36.0-48.0); Hemoglobin 10.3 g/dL (12.0-16.0); Immature Granulocytes Pct Auto 1.1 % (0.0-0.5); Lymphocytes Absolute Auto 3.2 10^3/uL (1.2-3.8); Lymphocytes Percent Auto 34.2 % (20.5-60.0); Mean Corpuscular HGB Conc 34.4 g/dL (29.9-35.2); Mean Corpuscular Hemoglobin 32.4 pg (26.7-34.0); Mean Platelet Volume 9.9 fL (9.5-13.5); Monocytes Absolute Auto 0.4 10^3/uL (0.3-0.8); Monocytes Percent Auto 4.7 % (1.7-12.0); Neutrophils Absolute Auto 5.5 10^3/uL (1.4-6.5); Neutrophils Percent Auto 58.7 % (43.0-75.0); Platelet Count 209 10^3/uL (150-450); Red Blood Count 3.18 10^6/uL (4.20-5.40); Red Cell Distribution Width 13.3 % (11.0-15.0); White Blood Count 9.4 10^3/uL (4.0-11.0)
[2024-03-09 16:22] LABS: Glucose 1 Hour 104 mg/dL (<130)
== END 2024-03-09 14:30 | disposition home or self-care (01) ==
PROVIDERS: Visit Provider Obstetrics & Gynecology
DX: Z13.1 Encounter for screening for diabetes mellitus (principal)
CPT/HCPCS: 36415; 82950; 85025

== ENCOUNTER 2024-04-02 10:37 | Observation (INO) | payer OTHER, SELFPAY ==
[2024-04-02 11:06] VITALS: BP 122/59; PULSE 78
[2024-04-02 11:36] LABS: Bilirubin Urine NEGATIVE (NEGATIVE); Blood Urine NEGATIVE (NEGATIVE); Clarity Urine CLEAR (CLEAR); Color Urine YELLOW (YELLOW); Glucose Urine UA NEGATIVE (NEGATIVE); Ketones Urine TRACE mg/dL (NEGATIVE); Leukocyte Esterase Urine NEGATIVE (NEGATIVE); Nitrite Urine NEGATIVE (NEGATIVE); Protein Urine NEGATIVE (NEG/TRACE); Specific Gravity Urine >=1.030 (1.005-1.025); Urobilinogen Urine 0.2 EU/dL (0.2-1.0); pH Urine 5.5 (5.0-9.0)
[2024-04-02 11:50] LABS: Urine Microscopic Indicated NO
== END 2024-04-02 12:10 | disposition home or self-care (01) ==
PROVIDERS: Admitting Provider Obstetrics & Gynecology; Visit Provider Obstetrics & Gynecology
DX: O26.852 Spotting complicating pregnancy, second trimester (principal); Z3A.26 26 weeks gestation of pregnancy
CPT/HCPCS: 59025; 81003; G0378; G0379

== ENCOUNTER 2024-04-07 15:41 | Outpatient (OUT) | payer OTHER, SELFPAY ==
--- NOTE | 2024-04-07 15:44 | US_ITS ---
[address] [address] Patient Name: CARLO KINGSLEY MRN: [id number] date: 2000 Sex: F Assigned Patient Location: Current Patient Location: Accession/Order Number: [id number] Exam Date: 04/07/2024 16:02 Report Date: 04/08/2024 04:23 At the request of: ROWDY SHERWOOD Procedure: US OB growth EXAMINATION: US OB growth HISTORY: Gestational Diabetes Mellitus COMPARISON: No relevant comparison available. FINDINGS: Heart Rate: 142.86 bpm Amniotic Fluid Volume: 15.3 cm; normal range Number: 1 Position: CEPHALIC BIOMETRY: BPD: 6.92 cm; 27 weeks 6 days; 57 % HC: 25.35 cm; 27 weeks 4 days; 28.70 % AC: 23.23 cm; 27 weeks 4 days; 50.90 % FL: 5.00 cm; 26 weeks 6 days; 24.60 % EFW: 1063.61 g; 40.20 % FL/AC: 21.54 FL/BPD: 72.29 HC/AC: 1.09 GESTATIONAL AGE: Age by EDC: 27 weeks 2 days KATELIN by EDC: 2024-07-05 Age by US: 27 weeks 3 days KATELIN by US: 2024-07-04 US/US OB growth IMPRESSION: 1. Single live intrauterine with growth detailed above. Electronically authenticated by: MAGALIE BARROS Date: 04/08/2024 04:23
--- OUTSIDE RECORDS SUMMARY | 2024-04-07 15:53 | XMS_ITS | CCD ---
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 fraction] 42.2 % Normal 37.0-47.0 [facility] Comment on above: Performed By: #### V ITB1, ZINC #### [facility] [address] [place] [address] #### B12, FOL, CMP, PREALB, ANDREZ, CBCD #### [facility] [address] [place] [address] 61556 Hemoglobin (Bld) [Mass/Vol] 14.0 g/dL Normal 12.0-16.0 [facility] Comment on above: Performed By: #### V ITB1, ZINC #### [facility] [address] [place] [address] #### B12, FOL, CMP, PREALB, ANDREZ, CBCD #### [facility] [address] [place] [address] IG # 0.0 10*3/uL Normal 0.0-0.1 [facility] Comment on above: Performed By: #### V ITB1, ZINC #### [facility] [address] [place] [address] #### B12, FOL, CMP, PREALB, ANDREZ, CBCD #### [facility] [address] [place] [address] 27685 IG % 0.2 % Normal 0.0-1.0 [facility] Comment on above: Performed By: #### V ITB1, ZINC #### [facility] [address] [place] [address] #### B12, FOL, CMP, PREALB, ANDREZ, CBCD #### [facility] [address] [place] [address] 28844 Lymphocytes (Bld) [#/Vol] 3.4 10*3/uL Normal 1.3-4.4 [facility] Comment on above: Performed By: #### V ITB1, ZINC #### [facility] [address] [place] [address] #### B12, FOL, CMP, PREALB, ANDREZ, CBCD #### [facility] [address] [place] [address] 97603 Lymphocytes/100 WBC (Bld) 53.6 % High 27.0-41.0 [facility] Comment on above: Performed By: #### V ITB1, ZINC #### [facility] [address] [place] [address] #### B12, FOL, CMP, PREALB, ANDREZ, CBCD #### [facility] [address] [place] [address] 08032 MCV (RBC) [Entitic vol] 88.5 fL Normal 81.0-99.0 [facility] Comment on above: Performed By: #### V ITB1, ZINC #### [facility] [address] [place] [address] #### B12, FOL, CMP, PREALB, ANDREZ, CBCD #### [facility] [address] [place] [address] 21095 MEAN CORPUSCULAR HGB 29.4 pg Normal 27.0-31.0 [facility] Comment on above: Performed By: #### V ITB1, ZINC #### [facility] [address] #### B12, FOL, CMP, PREALB, ANDREZ, CBCD #### [facility] [address] [place] [address] 83601 MEAN CORPUSCULAR HGB CONC 33.2 g/dl Normal 33.0-37.0 [facility] Comment on above: Performed By: #### V ITB1, ZINC #### [facility] [address] [place] [address] #### B12, FOL, CMP, PREALB, ANDREZ, CBCD #### [facility] [address] [place] [address] 19929 Monocytes (Bld) [#/Vol] 0.3 10*3/uL Normal 0.1-1.0 [facility] Comment on above: Performed By: #### V ITB1, ZINC #### [facility] [address] [place] [address] #### B12, FOL, CMP, PREALB, ANDREZ, CBCD #### [facility] [address] [place] [address] 17321 Monocytes/100 WBC (Bld) 4.8 % Normal 3.0-9.0 [facility] Comment on above: Performed By: #### V ITB1, ZINC #### [facility] [address] [place] [address] #### B12, FOL, CMP, PREALB, ANDREZ, CBCD #### [facility] [address] [place] [address] 02677 Neutrophils (Bld) [#/Vol] 2.2 10*3/uL Low 2.3-7.9 [facility] Comment on above: Performed By: #### V ITB1, ZINC #### [facility] [address] [place] [address] #### B12, FOL, CMP, PREALB, ANDREZ, CBCD #### [facility] [address] [place] [address] 60913 Neutrophils/100 WBC (Bld) 34.8 % Low 47.0-73.0 [facility] Comment on above: Performed By: #### V ITB1, ZINC #### [facility] [address] [place] [address] #### B12, FOL, CMP, PREALB, ANDREZ, CBCD #### [facility] [address] [place] [address] 35877 NUCLEATED RED BLOOD CELL 0.0 10*3/uL Normal 0.0-0.0 [facility] Comment on above: Performed By: #### V ITB1, ZINC #### [facility] [address] [place] [address] #### B12, FOL, CMP, PREALB, ANDREZ, CBCD #### [facility] [address] [place] [address] 84898 NUCLEATED RED BLOOD CELL 0.0 % Normal 0.0-0.0 [facility] Comment on above: Performed By: #### V ITB1, ZINC #### [facility] [address] [place] [address] #### B12, FOL, CMP, PREALB, ANDREZ, CBCD #### [facility] [address] [place] [address] 79542 PLATELET COUNT AUTOMATED 265 10*3/uL Normal 130-400 [facility] Comment on above: Performed By: #### V ITB1, ZINC #### [facility] [address] [place] [address] #### B12, FOL, CMP, PREALB, ANDREZ, CBCD #### [facility] [address] [place] [address] 22423 Platelet mean volume (Bld) [Entitic vol] 11.3 fL Normal 9.6-12.3 [facility] Comment on above: Performed By: #### V ITB1, ZINC #### [facility] [address] [place] [address] #### B12, FOL, CMP, PREALB, ANDREZ, CBCD #### [facility] [address] [place] [address] RBC (Bld) [#/Vol] 4.77 10*6/uL Normal 4.10-5.10 [facility] Comment on above: Performed By: #### V ITB1, ZINC #### [facility] [address] [place] [address] #### B12, FOL, CMP, PREALB, ANDREZ, CBCD #### [facility] [address] [place] [address] RED CELL DISTRI WIDTH 13.9 % Normal 0-14.5 [facility] Comment on above: Performed By: #### V ITB1, ZINC #### [facility] [address] [place] [address] #### B12, FOL, CMP, PREALB, ANDREZ, CBCD #### [facility] [address] [place] [address] 36298 WBC (Bld) [#/Vol] 6.3 10*3/uL Normal 4.8-10.8 [facility] Comment on above: Performed By: #### V ITB1, ZINC #### [facility] [address] [place] [address] #### B12, FOL, CMP, PREALB, ANDREZ, CBCD #### [facility] [address] [place] [address] COMPREHENSIVE METABOLIC PANE Evan 12-03-2022 Albumin [Mass/Vol] 4.0 g/dL Normal 3.4-5.0 [facility] Comment on above: Performed By: #### V ITB1, ZINC #### [facility] [address] [place] [address] #### B12, FOL, CMP, PREALB, ANDREZ, CBCD #### [facility] [address] [place] [address] 24104 ALP [Catalytic activity/Vol] 69 U/L Normal 46-116 [facility] Comment on above: Performed By: #### V ITB1, ZINC #### [facility] [address] #### B12, FOL, CMP, PREALB, ANDREZ, CBCD #### [facility] [address] [place] [address] 16234 ALT [Catalytic activity/Vol] 79 U/L High 10-49 [facility] Comment on above: Performed By: #### V ITB1, ZINC #### [facility] [address] [place] [address] #### B12, FOL, CMP, PREALB, ANDREZ, CBCD #### [facility] [address] [place] [address] 84943 AST [Catalytic activity/Vol] 31 U/L Normal 0-34 [facility] Comment on above: Performed By: #### V ITB1, ZINC #### [facility] [address] [place] [address] #### B12, FOL, CMP, PREALB, ANDREZ, CBCD #### [facility] [address] [place] [address] 71057 Bilirubin [Mass/Vol] 0.4 mg/dL Normal 0.3-1.2 [facility] Comment on above: Performed By: #### V ITB1, ZINC #### [facility] [address] [place] [address] #### B12, FOL, CMP, PREALB, ANDREZ, CBCD #### [facility] [address] [place] [address] 78153 CALCIUM,TOTAL 9.1 md/dL Normal 8.7-10.4 [facility] Comment on above: Performed By: #### V ITB1, ZINC #### [facility] [address] [place] [address] #### B12, FOL, CMP, PREALB, ANDREZ, CBCD #### [facility] [address] [place] [address] Chloride [Moles/Vol] 109 mmol/L High 98-107 [facility] Comment on above: Performed By: #### V ITB1, ZINC #### [facility] [address] [place] [address] #### B12, FOL, CMP, PREALB, ANDREZ, CBCD #### [facility] [address] [place] [address] CO2 [Moles/Vol] 25 mmol/L Normal 20-31 [facility] Comment on above: Performed By: #### V ITB1, ZINC #### [facility] [address] [place] [address] #### B12, FOL, CMP, PREALB, ANDREZ, CBCD #### [facility] [address] [place] [address] Creatinine [Mass/Vol] 0.56 mg/dL Normal 0.55-1.02 [facility] Comment on above: Performed By: #### V ITB1, ZINC #### [facility] [address] [place] [address] #### B12, FOL, CMP, PREALB, ANDREZ, CBCD #### [facility] [address] [place] [address] EST GLOM FILT > 60 Normal [facility] Comment on above: Result Comment: Result [...] #### V ITB1, ZINC #### [facility] [address] [place] [address] #### B12, FOL, CMP, PREALB, ANDREZ, CBCD #### [facility] [address] [place] [address] ESTIMATED GLOM FILT RATE > 60 Normal [facility] Comment on above: Performed By: #### V ITB1, ZINC #### [facility] [address] [place] [address] #### B12, FOL, CMP, PREALB, ANDREZ, CBCD #### [facility] [address] [place] [address] 54709 Glucose [Mass/Vol] 103 mg/dL High 65-99 [facility] Comment on above: Performed By: #### V ITB1, ZINC #### [facility] [address] [place] [address] #### B12, FOL, CMP, PREALB, ANDREZ, CBCD #### [facility] [address] [place] [address] 03676 Potassium [Moles/Vol] 3.8 mmol/L Normal 3.4-5.1 [facility] Comment on above: Performed By: #### V ITB1, ZINC #### [facility] [address] [place] [address] #### B12, FOL, CMP, PREALB, ANDREZ, CBCD #### [facility] [address] [place] [address] Protein [Mass/Vol] 6.7 g/dL Normal 6.0-8.0 [facility] Comment on above: Performed By: #### V ITB1, ZINC #### [facility] [address] [place] [address] #### B12, FOL, CMP, PREALB, ANDREZ, CBCD #### [facility] [address] [place] [id number] Sodium [Moles/Vol] 141 mmol/L Normal 136-145 [facility] Comment on above: Performed By: #### V ITB1, ZINC #### [facility] [address] [place] [address] #### B12, FOL, CMP, PREALB, ANDREZ, CBCD #### [facility] [address] [place] [address] Urea nitrogen [Mass/Vol] 10 mg/dL Normal 9-23 [facility] Comment on above: Performed By: #### V ITB1, ZINC #### [facility] [address] [place] [address] #### B12, FOL, CMP, PREALB, ANDREZ, CBCD #### [facility] [address] [place] [address] [id number] 12-03-2022 ESTIMATED AVERAGE GLUCOSE 94 Normal [facility] Comment on above: Performed By: #### V ITB1, ZINC #### [facility] [address] [place] [address] #### B12, FOL, CMP, PREALB, ANDREZ, CBCD #### [facility] [address] [place] [address] HbA1c (Bld) [Mass fraction] 4.9 % Normal 4.8-5.6 [facility] Comment on above: Result Comment: Standarization of method based on National Glycohemoglobin Standardization Program (NGSP). HEMOGLOBIN A1c(%) DEGREE of GLUCOSE CONTROL 5.7-6.4% Prediabetes range >6.4% Diagnosis of Diabetes <7% Glycemic control for adults with Diabetes Performed By: #### V ITB1, ZINC #### [facility] [address] [place] [address] #### B12, FOL, CMP, PREALB, ANDREZ, CBCD #### [facility] [address] [place] [address] 62668 INSULINon 12-03-2022 INSULIN 14.2 mU/L Normal 2.6-37.6 [facility] Comment on above: Performed By: #### V ITB1, ZINC #### [facility] [address] [place] [address] #### B12, FOL, CMP, PREALB, ANDREZ, CBCD #### [facility] [address] [place] [address] 36470 LIPID PANEL CHOLESTEROL/HDLo n 12-03-2022 Cholesterol [Mass/Vol] 113 mg/dL Normal <200 [facility] Comment on above: Performed By: #### V ITB1, ZINC #### [facility] [address] [place] [address] #### B12, FOL, CMP, PREALB, ANDREZ, CBCD #### [facility] [address] [place] [address] 70269 Cholesterol in HDL [Mass/Vol] 26 mg/dL Low 40-60 [facility] Comment on above: Performed By: #### V ITB1, ZINC #### [facility] [address] [place] [address] #### B12, FOL, CMP, PREALB, ANDREZ, CBCD #### [facility] [address] [place] [address] 23388 Cholesterol in LDL [Mass/Vol] 52 mg/dL Normal 9-159 [facility] Comment on above: Performed By: #### V ITB1, ZINC #### [facility] [address] [place] [address] #### B12, FOL, CMP, PREALB, ANDREZ, CBCD #### [facility] [address] [place] [address] 72581 Cholesterol.total/Chol esterol in HDL [Mass ratio] 4.3 {ratio} Normal [facility] Comment on above: Performed By: #### V ITB1, ZINC #### [facility] [address] [place] [address] #### B12, FOL, CMP, PREALB, ANDREZ, CBCD #### [facility] [address] [place] [address] Triglyceride [Mass/Vol] 176 mg/dL High <150 [facility] Comment on above: Result Comment: TRIGLYCERIDE RISK ASSESSMENT: 150-199 mg/dl BORDERLINE HIGH >200 mg//dl HIGH . Performed By: #### V ITB1, ZINC #### [facility] [address] [place] [address] #### B12, FOL, CMP, PREALB, ANDREZ, CBCD #### [facility] [address] [place] [address] VLDL CHOLESTEROL 35 mg/dL Normal 6-40 [facility] Comment on above: Performed By: #### V ITB1, ZINC #### [facility] [address] [place] [address] #### B12, FOL, CMP, PREALB, ANDREZ, CBCD #### [facility] [address] [place] [address] CBC with DIFFERENTIALon 05-0 -2022 Basophils (Bld) [#/Vol] 0.0 10*3/uL Normal 0.0-0.1 [facility] Comment on above: Order Comment: FAX R ESULTS TO DR FLORENCE: [phone] Performed By: #### V ITB1, ZINC #### [facility] [address] [place] [address] #### B12, FOL, CMP, PREALB, ANDREZ, CBCD #### [facility] [address] [place] [address] 96572 Basophils/100 WBC (Bld) 0.3 % Normal 0.0-1.0 [facility] Comment on above: Order Comment: FAX R ESULTS TO DR FLORENCE: [phone] Performed By: #### V ITB1, ZINC #### [facility] [address] [place] [address] #### B12, FOL, CMP, PREALB, ANDREZ, CBCD #### [facility] [address] [place] [address] Eosinophils (Bld) [#/Vol] 0.2 10*3/uL Normal 0.0-0.4 [facility] Comment on above: Order Comment: FAX R ESULTS TO DR FLORENCE: [phone] Performed By: #### V ITB1, ZINC #### [facility] [address] [place] [address] #### B12, FOL, CMP, PREALB, ANDREZ, CBCD #### [facility] [address] [place] [address] Eosinophils/100 WBC (Bld) 3.2 % Normal 1.0-4.0 [facility] Comment on above: Order Comment: FAX R ESULTS TO DR FLORENCE: [phone] Performed By: #### V ITB1, ZINC #### [facility] [address] [place] [address] #### B12, FOL, CMP, PREALB, ANDREZ, CBCD #### [facility] [address] [place] [address] 35929 Hematocrit (Bld) [Volume fraction] 43.8 % Normal 37.0-47.0 [facility] Comment on above: Order Comment: FAX R ESULTS TO DR FLORENCE: [phone] Performed By: #### V ITB1, ZINC #### [facility] [address] [place] [address] #### B12, FOL, CMP, PREALB, ANDREZ, CBCD #### [facility] [address] [place] [address] 32646 Hemoglobin (Bld) [Mass/Vol] 14.3 g/dL Normal 12.0-16.0 [facility] Comment on above: Order Comment: FAX R ESULTS TO DR FLORENCE: [phone] Performed By: #### V ITB1, ZINC #### [facility] [address] [place] [address] #### B12, FOL, CMP, PREALB, ANDREZ, CBCD #### [facility] [address] [place] [address] IG # 0.1 10*3/uL Normal 0.0-0.1 [facility] Comment on above: Order Comment: FAX R ESULTS TO DR FLORENCE: [phone] Performed By: #### V ITB1, ZINC #### [facility] [address] [place] [address] #### B12, FOL, CMP, PREALB, ANDREZ, CBCD #### [facility] [address] [place] [address] IG % 0.7 % Normal 0.0-1.0 [facility] Comment on above: Order Comment: FAX R ESULTS TO DR FLORENCE: [phone] Performed By: #### V ITB1, ZINC #### [facility] [address] [place] [address] #### B12, FOL, CMP, PREALB, ANDREZ, CBCD #### [facility] [address] [place] [address] Lymphocytes (Bld) [#/Vol] 3.5 10*3/uL Normal 1.3-4.4 [facility] Comment on above: Order Comment: FAX R ESULTS TO DR FLORENCE: [phone] Performed By: #### V ITB1, ZINC #### [facility] [address] [place] [address] #### B12, FOL, CMP, PREALB, ANDREZ, CBCD #### [facility] [address] [place] [address] Lymphocytes/100 WBC (Bld) 46.7 % High 27.0-41.0 [facility] Comment on above: Order Comment: FAX R ESULTS TO DR FLORENCE: [phone] Performed By: #### V ITB1, ZINC #### [facility] [address] [place] [address] #### B12, FOL, CMP, PREALB, ANDREZ, CBCD #### [facility] [address] [place] [address] MCV (RBC) [Entitic vol] 88.1 fL Normal 81.0-99.0 [facility] Comment on above: Order Comment: FAX R ESULTS TO DR FLORENCE: [phone] Performed By: #### V ITB1, ZINC #### [facility] [address] [place] [address] #### B12, FOL, CMP, PREALB, ANDREZ, CBCD #### [facility] [address] [place] [address] MEAN CORPUSCULAR HGB 28.8 pg Normal 27.0-31.0 [facility] Comment on above: Order Comment: FAX R ESULTS TO DR FLORENCE: [phone] Performed By: #### V ITB1, ZINC #### [facility] [address] [place] [address] #### B12, FOL, CMP, PREALB, ANDREZ, CBCD #### [facility] [address] [place] [address] MEAN CORPUSCULAR HGB CONC 32.6 g/dl Low 33.0-37.0 [facility] Comment on above: Order Comment: FAX R ESULTS TO DR FLORENCE: [phone] Performed By: #### V ITB1, ZINC #### [facility] [address] [place] [address] #### B12, FOL, CMP, PREALB, ANDREZ, CBCD #### [facility] [address] [place] [address] Monocytes (Bld) [#/Vol] 0.3 10*3/uL Normal 0.1-1.0 [facility] Comment on above: Order Comment: FAX R ESULTS TO DR FLORENCE: [phone] Performed By: #### V ITB1, ZINC #### [facility] [address] [place] [address] #### B12, FOL, CMP, PREALB, ANDREZ, CBCD #### [facility] [address] [place] [address] Monocytes/100 WBC (Bld) 4.3 % Normal 3.0-9.0 [facility] Comment on above: Order Comment: FAX R ESULTS TO DR FLORENCE: [phone] Performed By: #### V ITB1, ZINC #### [facility] [address] [place] [address] #### B12, FOL, CMP, PREALB, ANDREZ, CBCD #### [facility] [address] [place] [address] Neutrophils (Bld) [#/Vol] 3.4 10*3/uL Normal 2.3-7.9 [facility] Comment on above: Order Comment: FAX R ESULTS TO DR FLORENCE: [phone] Performed By: #### V ITB1, ZINC #### [facility] [address] [place] [address] #### B12, FOL, CMP, PREALB, ANDREZ, CBCD #### [facility] [address] [place] [address] Neutrophils/100 WBC (Bld) 44.8 % Low 47.0-73.0 [facility] Comment on above: Order Comment: FAX R ESULTS TO DR FLORENCE: [phone] Performed By: #### V ITB1, ZINC #### [facility] [address] [place] [address] #### B12, FOL, CMP, PREALB, ANDREZ, CBCD #### [facility] [address] [place] [address] NUCLEATED RED BLOOD CELL 0.0 10*3/uL Normal 0.0-0.0 [facility] Comment on above: Order Comment: FAX R ESULTS TO DR FLORENCE: Performed By: #### V ITB1, ZINC #### [facility] [address] [place] [address] #### B12, FOL, CMP, PREALB, ANDREZ, CBCD #### [facility] [address] [place] [address] NUCLEATED RED BLOOD CELL 0.0 % Normal 0.0-0.0 [facility] Comment on above: Order Comment: FAX R ESULTS TO DR FLORENCE: Performed By: #### V ITB1, ZINC #### [facility] [address] [place] [address] #### B12, FOL, CMP, PREALB, ANDREZ, CBCD #### [facility] [address] [place] [address] PLATELET COUNT AUTOMATED 347 10*3/uL Normal 130-400 [facility] Comment on above: Order Comment: FAX R ESULTS TO DR FLORENCE: Performed By: #### V ITB1, ZINC #### [facility] [address] [place] [address] #### B12, FOL, CMP, PREALB, ANDREZ, CBCD #### [facility] [address] [place] [address] Platelet mean volume (Bld) [Entitic vol] 9.9 fL Normal 9.6-12.3 [facility] Comment on above: Order Comment: FAX R ESULTS TO DR FLORENCE: Performed By: #### V ITB1, ZINC #### [facility] [address] [place] [address] #### B12, FOL, CMP, PREALB, ANDREZ, CBCD #### [facility] [address] [place] [address] RBC (Bld) [#/Vol] 4.97 10*6/uL Normal 4.10-5.10 [facility] Comment on above: Order Comment: FAX R ESULTS TO DR FLORENCE: Performed By: #### V ITB1, ZINC #### [facility] [address] [place] [address] #### B12, FOL, CMP, PREALB, ANDREZ, CBCD #### [facility] [address] [place] [address] RED CELL DISTRI WIDTH 13.2 % Normal 0-14.5 [facility] Comment on above: Order Comment: FAX R ESULTS TO DR FLORENCE: Performed By: #### V ITB1, ZINC #### [facility] [address] [place] [address] #### B12, FOL, CMP, PREALB, ANDREZ, CBCD #### [facility] [address] [place] [address] WBC (Bld) [#/Vol] 7.5 10*3/uL Normal 4.8-10.8 [facility] Comment on above: Order Comment: FAX R ESULTS TO DR FLORENCE: [phone] Performed By: #### V ITB1, ZINC #### [facility] [address] [place] [address] #### B12, FOL, CMP, PREALB, ANDREZ, CBCD #### [facility] [address] [place] [address] COMPREHENSIVE METABOLIC PANE Evan 11-06-2022 Albumin [Mass/Vol] 4.2 g/dL Normal 3.4-5.0 [facility] Comment on above: Order Comment: FAX R ESULTS TO DR FLORENCE: [phone] Performed By: #### V ITB1, ZINC #### [facility] [address] [place] [address] #### B12, FOL, CMP, PREALB, ANDREZ, CBCD #### [facility] [address] [place] [address] ALP [Catalytic activity/Vol] 59 U/L Normal 46-116 [facility] Comment on above: Order Comment: FAX R ESULTS TO DR FLORENCE: Performed By: #### V ITB1, ZINC #### [facility] [address] [place] [address] #### B12, FOL, CMP, PREALB, ANDREZ, CBCD #### [facility] [address] [place] [address] ALT [Catalytic activity/Vol] 30 U/L Normal 10-49 [facility] Comment on above: Order Comment: FAX R ESULTS TO DR FLORENCE: Performed By: #### V ITB1, ZINC #### [facility] [address] [place] [address] #### B12, FOL, CMP, PREALB, ANDREZ, CBCD #### [facility] [address] [place] [address] AST [Catalytic activity/Vol] 20 U/L Normal 0-34 [facility] Comment on above: Order Comment: FAX R ESULTS TO DR FLORENCE: Performed By: #### V ITB1, ZINC #### [facility] [address] [place] [address] #### B12, FOL, CMP, PREALB, ANDREZ, CBCD #### [facility] [address] [place] [address] Bilirubin [Mass/Vol] 0.5 mg/dL Normal 0.3-1.2 [facility] Comment on above: Order Comment: FAX R ESULTS TO DR FLORENCE: Performed By: #### V ITB1, ZINC #### [facility] [address] [place] [address] #### B12, FOL, CMP, PREALB, ANDREZ, CBCD #### [facility] [address] [place] [address] CALCIUM,TOTAL 9.3 md/dL Normal 8.7-10.4 [facility] Comment on above: Order Comment: FAX R ESULTS TO DR FLORENCE: Performed By: #### V ITB1, ZINC #### [facility] [address] [place] [address] #### B12, FOL, CMP, PREALB, ANDREZ, CBCD #### [facility] [address] [place] [address] Chloride [Moles/Vol] 103 mmol/L Normal 98-107 [facility] Comment on above: Order Comment: FAX R ESULTS TO DR FLORENCE: [phone] Performed By: #### V ITB1, ZINC #### [facility] [address] [place] [address] #### B12, FOL, CMP, PREALB, ANDREZ, CBCD #### [facility] [address] [place] [address] CO2 [Moles/Vol] 23 mmol/L Normal 20-31 [facility] Comment on above: Order Comment: FAX R ESULTS TO DR FLORENCE: [phone] Performed By: #### V ITB1, ZINC #### [facility] [address] [place] [address] #### B12, FOL, CMP, PREALB, ANDREZ, CBCD #### [facility] [address] [place] [address] Creatinine [Mass/Vol] 0.58 mg/dL Normal 0.55-1.02 [facility] Comment on above: Order Comment: FAX R ESULTS TO DR FLORENCE: [phone] Performed By: #### V ITB1, ZINC #### [facility] [address] [place] [address] #### B12, FOL, CMP, PREALB, ANDREZ, CBCD #### [facility] [address] [place] [address] EST GLOM FILT > 60 Normal [facility] Comment on above: Order Comment: FAX R ESULTS TO DR FLORENCE: [phone] Result Comment: Result Units: mL/min/1.73 m2 Note: [...] #### V ITB1, ZINC #### [facility] [address] [place] [address] #### B12, FOL, CMP, PREALB, ANDREZ, CBCD #### [facility] [address] [place] [address] ESTIMATED GLOM FILT RATE > 60 Normal [facility] Comment on above: Order Comment: FAX R ESULTS TO DR FLORENCE: [phone] Performed By: #### V ITB1, ZINC #### [facility] [address] [place] [address] #### B12, FOL, CMP, PREALB, ANDREZ, CBCD #### [facility] [address] [place] [address] Glucose [Mass/Vol] 92 mg/dL Normal 65-99 [facility] Comment on above: Order Comment: FAX R ESULTS TO DR FLORENCE: [phone] Performed By: #### V ITB1, ZINC #### [facility] [address] [place] [address] #### B12, FOL, CMP, PREALB, ANDREZ, CBCD #### [facility] [address] [place] [address] Potassium [Moles/Vol] 3.9 mmol/L Normal 3.4-5.1 [facility] Comment on above: Order Comment: FAX R ESULTS TO DR FLORENCE: [phone] Performed By: #### V ITB1, ZINC #### [facility] [address] [place] [address] #### B12, FOL, CMP, PREALB, ANDREZ, CBCD #### [facility] [address] [place] [address] Protein [Mass/Vol] 7.3 g/dL Normal 6.0-8.0 [facility] Comment on above: Order Comment: FAX R ESULTS TO DR FLORENCE: [phone] Performed By: #### V ITB1, ZINC #### [facility] [address] [place] [address] #### B12, FOL, CMP, PREALB, ANDREZ, CBCD #### [facility] [address] [place] [address] Sodium [Moles/Vol] 137 mmol/L Normal 136-145 [facility] Comment on above: Order Comment: FAX R ESULTS TO DR FLORENCE: [phone] Performed By: #### V ITB1, ZINC #### [facility] [address] [place] [address] #### B12, FOL, CMP, PREALB, ANDREZ, CBCD #### [facility] [address] [place] [address] Urea nitrogen [Mass/Vol] 12 mg/dL Normal 9-23 [facility] Comment on above: Order Comment: FAX R ESULTS TO DR FLORENCE: [phone] Performed By: #### V ITB1, ZINC #### [facility] [address] [place] [address] #### B12, FOL, CMP, PREALB, ANDREZ, CBCD #### [facility] [address] [place] [address] Basic Metabolic Panelon 05-0 Anion gap [Moles/Vol] 11 mmol/L Normal 7-16 [facility] Calcium [Mass/Vol] 8.9 mg/dL Normal 8.6-10.2 [facility] Chloride [Moles/Vol] 104 mmol/L Normal 98-107 [facility] CO2 [Moles/Vol] 25 mmol/L Normal 22-29 [facility] Creatinine [Mass/Vol] 0.6 mg/dL Normal 0.5-1.0 [facility] GFR Calculated >60 Normal >=60 [facility] Comment on above: Result Comment: Dion ch calculator link https://www.kidney.org/professionals/kdoqi/gfr_calculatorped Effective Apr 02, 2022 [...] secretion. Glucose [Mass/Vol] 117 mg/dL High 74-99 [facility] Potassium [Moles/Vol] 4.3 mmol/L Normal 3.5-5.0 [facility] Sodium [Moles/Vol] 140 mmol/L Normal 132-146 [facility] Urea nitrogen [Mass/Vol] 13 mg/dL Normal 6-20 [facility] Basic metabolic 2000 panelon 10-30-2022 Anion gap [Moles/Vol] 11 mmol/L 7 - 16 mmol/L [facility] Calcium [Mass/Vol] 8.9 mg/dL 8.6 - 10. 2 mg/dL [facility] Chloride [Moles/Vol] 104 mmol/L 98 - 10 7 mmol/L [facility] CO2 [Moles/Vol] 25 mmol/L 22 - 29 mmol/L [facility] Creatinine [Mass/Vol] 0.6 mg/dL 0.5 - 1.0 mg/dL [facility] GFR/1.73 sq M.predicted among non-blacks MDRD (S/P/Bld) [Vol rate/Area] mL/min/1.73 60 - PINF mL/min/1.73 [facility] Comment on above: Pediatric calculator link https://www.kidney.org/professionals/kdoqi/gfr_calculatorped [...] mg/dL High 74 - 99 mg/dL [facility] Potassium [Moles/Vol] 4.3 mmol/L 3.5 - 5.0 mmol/L [facility] Sodium [Moles/Vol] 140 mmol/L 132 - 146 mmol/L [facility] Urea nitrogen [Mass/Vol] 13 mg/dL 6 - 20 mg/dL [facility] CBC With Platelet and Differ entialon 10-30-2022 Abs Imm Granulocytes 0.07 E9/L Normal [facility] Absolute Basophils 0.01 E9/L Normal 0.00-0.20 [facility] Absolute Eosinophils 0.00 E9/L Low 0.05-0.50 [facility] Absolute Lymphocytes 1.89 E9/L Normal 1.50-4.00 [facility] Absolute Monocytes 0.73 E9/L Normal 0.10-0.95 [facility] Absolute Neutrophils 9.02 E9/L High 1.80-7.30 [facility] Basophils/100 WBC (Bld) 0.1 % Normal 0.0-2.0 [facility] Eosinophils/100 WBC (Bld) 0.0 % Normal 0.0-6.0 [facility] Hematocrit (Bld) [Volume fraction] 38.2 % Normal 34.0-48.0 [facility] Hemoglobin (Bld) [Mass/Vol] 12.2 g/dL Normal 11.5-15.5 [facility] Imm Granulocytes 0.6 % Normal 0.0-5.0 [facility] Lymphocytes/100 WBC (Bld) 16.1 % Low 20.0-42.0 [facility] MCH (RBC) [Entitic mass] 29.2 pg Normal 26.0-35.0 [facility] MCHC 31.9 % Low 32.0-34.5 [facility] MCV (RBC) [Entitic vol] 91.4 fL Normal 80.0-99.9 [facility] Monocytes/100 WBC (Bld) 6.2 % Normal 2.0-12.0 [facility] Neutrophils/100 WBC (Bld) 77.0 % Normal 43.0-80.0 [facility] Platelet Count 285 E9/L Normal 130-450 [facility] Platelet mean volume (Bld) [Entitic vol] 10.4 fL Normal 7.0-12.0 [facility] RBC 4.18 E12/L Normal 3.50-5.50 [facility] RDW 13.2 fL Normal 11.5-15.0 [facility] WBC 11.7 E9/L High 4.5-11.5 [facility] CBC with Auto Differentialon 10-30-2022 Basophils (Bld) [#/Vol] 0.01 10*3/uL [facility] Basophils/100 WBC (Bld) 0.1 % 0.0 - 2.0 % [facility] Eosinophils (Bld) [#/Vol] 0.00 10*3/uL Low [facility] Eosinophils/100 WBC (Bld) 0 % 0.0 - 6.0 % [facility] Erythrocyte distribution width (RBC) [Ratio] 13.2 fL 11.5 - 15.0 fL [facility] Hematocrit (Bld) [Volume fraction] 38.2 % 34.0 - 48.0 % [facility] Hemoglobin (Bld) [Mass/Vol] 12.2 g/dL 11.5 - 15.5 g/dL [facility] Immature granulocytes (Bld) [#/Vol] 0.07 10*3/uL E9/L [facility] Immature granulocytes/100 WBC (Bld) 0.6 % 0.0 - 5.0 % [facility] Interpretation and review of laboratory results Abnormal [facility] Lymphocytes (Bld) [#/Vol] 1.89 10*3/uL [facility] Lymphocytes/100 WBC (Bld) 16.1 % Low 20.0 - 42.0 % [facility] MCH (RBC) [Entitic mass] 29.2 pg 26.0 - 35.0 pg [facility] MCHC (RBC) [Mass/Vol] 31.9 % Low 32.0 - 34.5 % [facility] MCV (RBC) [Entitic vol] 91.4 fL 80.0 - 99.9 fL [facility] Monocytes (Bld) [#/Vol] 0.73 10*3/uL [facility] Monocytes/100 WBC (Bld) 6.2 % 2.0 - 12.0 % [facility] Neutrophils (Bld) [#/Vol] 9.02 10*3/uL High [facility] Platelet mean volume (Bld) [Entitic vol] 10.4 fL 7.0 - 12.0 fL [facility] Platelets (Bld) [#/Vol] 285 10*3/uL [facility] RBC (Bld) [#/Vol] 4.18 10*6/uL [facility] Segmented neutrophils/100 WBC (Bld) 77.0 % 43.0 - 80.0 % [facility] WBC (Bld) [#/Vol] 11.7 10*3/uL High [facility] Hepatic Function Panelon Albumin [Mass/Vol] 3.7 g/dL 3.5 - 5.2 g/dL [facility] ALP [Catalytic activity/Vol] 55 U/L 35 - 104 U/L [facility] ALT [Catalytic activity/Vol] 19 U/L 0 - 32 U/L [facility] AST [Catalytic activity/Vol] 14 U/L 0 - 31 U/L [facility] Bilirubin [Mass/Vol] 0.5 mg/dL 0.0 - 1 .2 mg/dL [facility] Bilirubin.direct [Mass/Vol] mg/dL 0.0 - 0.3 mg/dL [facility] Bilirubin.indirect [Mass/Vol] see below 0.0 - 1.0 mg/dL [facility] Comment on above: Indirect Bilirubin c annot be calculated since Total Bilirubin and/or Direct Bilirubin is below measurable range. Protein [Mass/Vol] 6.3 g/dL Low 6.4 - 8.3 g/dL [facility] Hgb A1Con 10-30-2022 HbA1c (Bld) [Mass fraction] 4.8 % Normal 4.0-5.6 [facility] Lipid Panelon 10-30-2022 Cholesterol [Mass/Vol] 99 mg/dL Normal 0-199 [facility] Cholesterol in HDL [Mass/Vol] 34 mg/dL Normal >40 [facility] Cholesterol in LDL [Mass/Vol] 43 mg/dL Normal 0-99 [facility] Triglyceride [Mass/Vol] 108 mg/dL Normal 0-149 [facility] VLDL Cholesterol (Calculated) 22 mg/dL Normal [facility] Cholesterol [Mass/Vol] 99 mg/dL 0 - 1 99 mg/dL [facility] Cholesterol in HDL [Mass/Vol] 34 mg/dL 40 - PINF mg/dL [facility] Cholesterol in LDL [Mass/Vol] 43 mg/dL 0 - 99 mg/dL [facility] Cholesterol in VLDL [Mass/Vol] 22 mg/dL [facility] Triglyceride [Mass/Vol] 108 mg/dL 0 - 149 mg/dL [facility] Liver Panelon 10-30-2022 Albumin [Mass/Vol] 3.7 g/dL Normal 3.5-5.2 [facility] ALP [Catalytic activity/Vol] 55 U/L Normal 35-104 [facility] ALT [Catalytic activity/Vol] 19 U/L Normal 0-32 [facility] AST [Catalytic activity/Vol] 14 U/L Normal 0-31 [facility] Bilirubin [Mass/Vol] 0.5 mg/dL Normal 0.0-1.2 [facility] Bilirubin Indirect see below Normal 0.0-1.0 [facility] Comment on above: Result Comment: Grace rect Bilirubin cannot be calculated since Total Bilirubin and/or Direct Bilirubin is below measurable range. Bilirubin.indirect [Mass/Vol] mg/dL Normal 0.0-0.3 [facility] Protein [Mass/Vol] 6.3 g/dL Low 6.4-8.3 [facility] METER GLUCOSEon 10-30-2022 Glucose [Mass/Vol] 111 mg/dL High 74-99 [facility] Magnesiumon 10-30-2022 Magnesium [Mass/Vol] 1.7 mg/dL Normal 1.6-2.6 [facility] Magnesium [Mass/Vol] 1.7 mg/dL 1.6 - 2 .6 mg/dL [facility] No Panel Informationon 10-30 Interpretation and review of laboratory results Abnormal [facility] POCT Glucoseon 10-30-2022 Glucose [Mass/Vol] 111 mg/dL High 74 - 99 mg/dL [facility] Interpretation and review of laboratory results Abnormal [facility] Phosphoruson 10-30-2022 Phosphate [Mass/Vol] 4.0 mg/dL Normal 2.5-4.5 [facility] Phosphate [Mass/Vol] 4.0 mg/dL 2.5 - 4 .5 mg/dL [facility] T4, Freeon 10-30-2022 Free T4 [Mass/Vol] 1.32 ng/dL 0.93 - 1. 70 ng/dL [facility] TSHon 10-30-2022 TSH [Mass/Vol] 0.828 [facility] TSH w/out Reflexon TSH w/out Reflex 0.828 uIU/mL Normal 0.270-4.200 [facility] Thyroxine Freeon 10-30-2022 Thyroxine Free 1.32 ng/dL Normal 0.93-1.70 [facility] Comprehensive Metabolic Pane evan 10-29-2022 Potassium see note Critically abnormal 3.5-5.0 [facility] Comment on above: Result Comment: Lisa cui order. Made no charge to patient for testing Corrected result; previously reported as 4.3 on 10/24/2022 at 19:57 by CRIAM Hemoglobin A1con 10-29-2022 HbA1c (Bld) [Mass fraction] 5.1 % 4.0 - 5.6 % [facility] Hgb A1Con 10-29-2022 HbA1c (Bld) [Mass fraction] 5.1 % Normal 4.0-5.6 [facility] METER GLUCOSEon 10-29-2022 Glucose [Mass/Vol] 128 mg/dL High 74-99 [facility] Glucose [Mass/Vol] 146 mg/dL High 74-99 [facility] Glucose [Mass/Vol] 104 mg/dL High 74-99 [facility] Glucose [Mass/Vol] 101 mg/dL High 74-99 [facility] No Panel Informationon 10-29 [facility] POC Urine Qualon 0 10-29-2022 Beta HCG ( test) Ql (U) Negative Negative [facility] [employer] Work Phone: Beta HCG ( test) Ql (U) [id number] [facility] Work Phone: Negative QC Pass/Fail Pass [facility] [employer] Work Phone: Positive QC Pass/Fail Pass [facility] Work Phone: POCT Glucoseon 10-29-2022 Glucose [Mass/Vol] 128 mg/dL High 74 - 99 mg/dL [facility] Interpretation and review of laboratory results Abnormal [facility] Glucose [Mass/Vol] 146 mg/dL High 74 - 99 mg/dL [facility] Interpretation and review of laboratory results Abnormal [facility] Glucose [Mass/Vol] 104 mg/dL High 74 - 99 mg/dL [facility] Interpretation and review of laboratory results Abnormal [facility] Glucose [Mass/Vol] 101 mg/dL High 74 - 99 mg/dL [facility] Interpretation and review of laboratory results Abnormal [facility] Surgical Specimenon 10-30-19 23 Surgical Specimen [facility] [address] [address] FINAL SURGICAL PATHOLOGY REPORT NAME: BATOOL KINGSLEY Date of 10/29/2022 Collection: Medical Record [id number] Date of 10/29/2022 Number: Receipt: Age: 22 Y Sex: F Date 10/31/2022 12:02 Reported: Date Of : 2000 [facility] [id number] Admitting DERIC FLORENCE Number: Physician: Patient DIS [id number] Ordering DERIC FLORENCE Location: Physician: Accession Number: [id number] Additional Physicians:KAELA FRENCH Diagnosis: Small intestine, limited resection: No diagnostic abnormality. SHANTA CAUSEY M.D. (Electronic Signature) Specimen Submitted: SMALL INTESTINE, RESECTION NOT TUMOR Clinical Notes: Operative Procedure: Gastric bypass Nuno-en-Y laparoscopic Preoperative Dx: Morbid obesity Microscopic Evaluation: Was performed. Gross Description: Submitted in one part in formalin labeled Batool Quarterman, segment small bowel is an oval shaped portion of hanson haq mucosal lined fibrous tissue, associate financial representative or portions of small bowel which measures 4.1 x 2.5 x 1.7 cm. Much of the exterior is covered by hanson haq, soft to finely folded mucosa. Numerous, small metallic surgical [place] are present throughout the exterior. Discrete mucosal lesions are not present. Sectioning is unremarkable. Extension Course Counselor sections are submitted. Block label A1. (JORGE L:TAURUS) CODES: [id number]; Department of Pathology Page 1 of 1 Normal [facility] CBC (Hemogram)on 10-24-2022 Erythrocyte distribution width (RBC) [Ratio] 13.7 fL 11.5 - 15.0 fL [facility] Hematocrit (Bld) [Volume fraction] 43.9 % 34.0 - 48.0 % [facility] Hemoglobin (Bld) [Mass/Vol] 14.3 g/dL 11.5 - 15.5 g/dL [facility] MCH (RBC) [Entitic mass] 28.9 pg 26.0 - 35.0 pg [facility] MCHC (RBC) [Mass/Vol] 32.6 % 32.0 - 34.5 % [facility] MCV (RBC) [Entitic vol] 88.9 fL 80.0 - 99.9 fL [facility] Platelet mean volume (Bld) [Entitic vol] 10.6 fL 7.0 - 12.0 fL [facility] Platelets (Bld) [#/Vol] 321 10*3/uL [facility] RBC (Bld) [#/Vol] 4.94 10*6/uL [facility] WBC (Bld) [#/Vol] 7.0 10*3/uL [facility] CBC With Platelet No Differe ntialon 10-24-2022 Hematocrit (Bld) [Volume fraction] 43.9 % Normal 34.0-48.0 [facility] Hemoglobin (Bld) [Mass/Vol] 14.3 g/dL Normal 11.5-15.5 [facility] MCH (RBC) [Entitic mass] 28.9 pg Normal 26.0-35.0 [facility] MCHC 32.6 % Normal 32.0-34.5 [facility] MCV (RBC) [Entitic vol] 88.9 fL Normal 80.0-99.9 [facility] Platelet Count 321 E9/L Normal 130-450 [facility] Platelet mean volume (Bld) [Entitic vol] 10.6 fL Normal 7.0-12.0 [facility] RBC 4.94 E12/L Normal 3.50-5.50 [facility] RDW 13.7 fL Normal 11.5-15.0 [facility] WBC 7.0 E9/L Normal 4.5-11.5 [facility] Comprehensive Metabolic Pane l reflex Mgon 10-24-2022 Albumin [Mass/Vol] 4.6 g/dL Normal 3.5-5.2 [facility] ALP [Catalytic activity/Vol] 69 U/L Normal 35-104 [facility] ALT [Catalytic activity/Vol] 27 U/L Normal 0-32 [facility] Anion gap [Moles/Vol] 12 mmol/L Normal 7-16 [facility] AST [Catalytic activity/Vol] 16 U/L Normal 0-31 [facility] Bilirubin [Mass/Vol] 0.4 mg/dL Normal 0.0-1.2 [facility] Calcium [Mass/Vol] 9.3 mg/dL Normal 8.6-10.2 [facility] Chloride [Moles/Vol] 104 mmol/L Normal 98-107 [facility] CO2 [Moles/Vol] 24 mmol/L Normal 22-29 [facility] Creatinine [Mass/Vol] 0.6 mg/dL Normal 0.5-1.0 [facility] GFR Calculated >60 Normal >=60 [facility] Comment on above: Result Comment: Dion atric [...] secretion. Glucose [Mass/Vol] 79 mg/dL Normal 74-99 [facility] Magnesium [Moles/Vol] 4.3 mmol/L Normal 3.5-5.0 [facility] Protein [Mass/Vol] 7.6 g/dL Normal 6.4-8.3 [facility] Sodium [Moles/Vol] 140 mmol/L Normal 132-146 [facility] Urea nitrogen [Mass/Vol] 13 mg/dL Normal 6-20 [facility] Comprehensive metabolic 2000 panelon 10-24-2022 Potassium [Moles/Vol] 4.3 mmol/L 3.5 - 5.0 mmol/L [facility] Albumin [Mass/Vol] 4.6 g/dL 3.5 - 5.2 g/dL [facility] ALP [Catalytic activity/Vol] 69 U/L 35 - 104 U/L [facility] ALT [Catalytic activity/Vol] 27 U/L 0 - 32 U/L [facility] Anion gap [Moles/Vol] 12 mmol/L 7 - 16 mmol/L [facility] AST [Catalytic activity/Vol] 16 U/L 0 - 31 U/L [facility] Bilirubin [Mass/Vol] 0.4 mg/dL 0.0 - 1 .2 mg/dL [facility] Calcium [Mass/Vol] 9.3 mg/dL 8.6 - 10. 2 mg/dL [facility] Chloride [Moles/Vol] 104 mmol/L 98 - 10 7 mmol/L [facility] CO2 [Moles/Vol] 24 mmol/L 22 - 29 mmol/L [facility] Creatinine [Mass/Vol] 0.6 mg/dL 0.5 - 1.0 mg/dL [facility] GFR/1.73 sq M.predicted among non-blacks MDRD (S/P/Bld) [Vol rate/Area] mL/min/1.73 60 - PINF mL/min/1.73 [facility] Comment on above: Pediatric calculator link [email or web address] [...] 79 mg/dL 74 - 99 mg/dL [facility] Potassium [Moles/Vol] 4.3 mmol/L 3.5 - 5.0 mmol/L [facility] Protein [Mass/Vol] 7.6 g/dL 6.4 - 8.3 g/dL [facility] Sodium [Moles/Vol] 140 mmol/L 132 - 146 mmol/L [facility] Urea nitrogen [Mass/Vol] 13 mg/dL 6 - 20 mg/dL [facility] ACT PARTIAL THROMBO TIMEon 0 - ACT PARTIAL THROMBO TIME 30.4 SECONDS Normal 20.0-32.1 [facility] Comment on above: Result Comment: APTT THERAPEUTIC RANGE = 43.6 TO 68.4 SECONDS Performed By: #### V ITB1, ZINC #### [facility] [address] [place] [address] #### B12, FOL, CMP, PREALB, ANDREZ, CBCD #### [facility] [address] [place] [address] CBC with DIFFERENTIALon 04-0 Basophils (Bld) [#/Vol] 0.0 10*3/uL Normal 0.0-0.1 [facility] Comment on above: Performed By: #### V ITB1, ZINC #### [facility] [address] [place] [address] #### B12, FOL, CMP, PREALB, ANDREZ, CBCD #### [facility] [address] [place] [address] 98360 Basophils/100 WBC (Bld) 0.5 % Normal 0.0-1.0 [facility] Comment on above: Performed By: #### V ITB1, ZINC #### [facility] [address] [place] [address] #### B12, FOL, CMP, PREALB, ANDREZ, CBCD #### [facility] [address] [place] [address]4817 Eosinophils (Bld) [#/Vol] 0.3 10*3/uL Normal 0.0-0.4 [facility] Comment on above: Performed By: #### V ITB1, ZINC #### [facility] [address] [place] [address] #### B12, FOL, CMP, PREALB, ANDREZ, CBCD #### [facility] [address] [place] [address] 46105 Eosinophils/100 WBC (Bld) 4.1 % High 1.0-4.0 [facility] Comment on above: Performed By: #### V ITB1, ZINC #### [facility] [address] [place] [address] #### B12, FOL, CMP, PREALB, ANDREZ, CBCD #### [facility] [address] [place] [address] 37369 Hematocrit (Bld) [Volume fraction] 40.6 % Normal 37.0-47.0 [facility] Comment on above: Performed By: #### V ITB1, ZINC #### [facility] [address] [place] [address] #### B12, FOL, CMP, PREALB, ANDREZ, CBCD #### [facility] [address] [place] [address] Hemoglobin (Bld) [Mass/Vol] 13.2 g/dL Normal 12.0-16.0 [facility] Comment on above: Performed By: #### V ITB1, ZINC #### [facility] [address] [place] [address] #### B12, FOL, CMP, PREALB, ANDREZ, CBCD #### [facility] [address] [place] [address] 085[address] IG # 0.0 10*3/uL Normal 0.0-0.1 [facility] Comment on above: Performed By: #### V ITB1, ZINC #### [facility] [address] [place] [address] #### B12, FOL, CMP, PREALB, ANDREZ, CBCD #### [facility] [address] [place] [address] 080[address] IG % 0.5 % Normal 0.0-1.0 [facility] Comment on above: Performed By: #### V ITB1, ZINC #### [facility] [address] [place] [address] #### B12, FOL, CMP, PREALB, ANDREZ, CBCD #### [facility] [address] [place] [address] 35193 Lymphocytes (Bld) [#/Vol] 3.2 10*3/uL Normal 1.3-4.4 [facility] Comment on above: Performed By: #### V ITB1, ZINC #### [facility] [address] [place] [address] #### B12, FOL, CMP, PREALB, ANDREZ, CBCD #### [facility] [address] [place] [address] 58678 Lymphocytes/100 WBC (Bld) 41.8 % High 27.0-41.0 [facility] Comment on above: Performed By: #### V ITB1, ZINC #### [facility] [address] [place] [address] #### B12, FOL, CMP, PREALB, ANDREZ, CBCD #### [facility] [address] [place] [address] MCV (RBC) [Entitic vol] 88.6 fL Normal 81.0-99.0 [facility] Comment on above: Performed By: #### V ITB1, ZINC #### [facility] [address] [place] [address] #### B12, FOL, CMP, PREALB, ANDREZ, CBCD #### [facility] [address] [place] [address] 80872 MEAN CORPUSCULAR HGB 28.8 pg Normal 27.0-31.0 [facility] Comment on above: Performed By: #### V ITB1, ZINC #### [facility] [address] [place] [address] #### B12, FOL, CMP, PREALB, ANDREZ, CBCD #### [facility] [address] [place] [address] 61810 MEAN CORPUSCULAR HGB CONC 32.5 g/dl Low 33.0-37.0 [facility] Comment on above: Performed By: #### V ITB1, ZINC #### [facility] [address] [place] [address] #### B12, FOL, CMP, PREALB, ANDREZ, CBCD #### [facility] [address] [place] [address] 67182 Monocytes (Bld) [#/Vol] 0.4 10*3/uL Normal 0.1-1.0 [facility] Comment on above: Performed By: #### V ITB1, ZINC #### [facility] [address] [place] [address] #### B12, FOL, CMP, PREALB, ANDREZ, CBCD #### [facility] [address] [place] [address] 79744 Monocytes/100 WBC (Bld) 5.1 % Normal 3.0-9.0 [facility] Comment on above: Performed By: #### V ITB1, ZINC #### [facility] [address] [place] [address] #### B12, FOL, CMP, PREALB, ANDREZ, CBCD #### [facility] [address] [place] [address] 64159 Neutrophils (Bld) [#/Vol] 3.7 10*3/uL Normal 2.3-7.9 [facility] Comment on above: Performed By: #### V ITB1, ZINC #### [facility] [address] [place] [address] #### B12, FOL, CMP, PREALB, ANDREZ, CBCD #### [facility] [address] [place] [address] 34017 Neutrophils/100 WBC (Bld) 48.0 % Normal 47.0-73.0 [facility] Comment on above: Performed By: #### V ITB1, ZINC #### [facility] [address] [place] [address] #### B12, FOL, CMP, PREALB, ANDREZ, CBCD #### [facility] [address] [place] [address] 97989 NUCLEATED RED BLOOD CELL 0.0 10*3/uL Normal 0.0-0.0 [facility] Comment on above: Performed By: #### V ITB1, ZINC #### [facility] [address] [place] [address] #### B12, FOL, CMP, PREALB, ANDREZ, CBCD #### [facility] [address] [place] [address] 70636 NUCLEATED RED BLOOD CELL 0.0 % Normal 0.0-0.0 [facility] Comment on above: Performed By: #### V ITB1, ZINC #### [facility] [address] [place] [address] #### B12, FOL, CMP, PREALB, ANDREZ, CBCD #### [facility] [address] [place] [address] 93136 PLATELET COUNT AUTOMATED 300 10*3/uL Normal 130-400 [facility] Comment on above: Performed By: #### V ITB1, ZINC #### [facility] [address] [place] [address] #### B12, FOL, CMP, PREALB, ANDREZ, CBCD #### [facility] [address] [place] [address] Platelet mean volume (Bld) [Entitic vol] 10.7 fL Normal 9.6-12.3 [facility] Comment on above: Performed By: #### V ITB1, ZINC #### [facility] [address] [place] [address] #### B12, FOL, CMP, PREALB, ANDREZ, CBCD #### [facility] [address] [place] [address] 30768 RBC (Bld) [#/Vol] 4.58 10*6/uL Normal 4.10-5.10 [facility] Comment on above: Performed By: #### V ITB1, ZINC #### [facility] [address] [place] [address] #### B12, FOL, CMP, PREALB, ANDREZ, CBCD #### [facility] [address] [place] [address] 66518 RED CELL DISTRI WIDTH 13.3 % Normal 0-14.5 [facility] Comment on above: Performed By: #### V ITB1, ZINC #### [facility] [address] [place] [address] #### B12, FOL, CMP, PREALB, ANDREZ, CBCD #### [facility] [address] [place] [address] WBC (Bld) [#/Vol] 7.6 10*3/uL Normal 4.8-10.8 [facility] Comment on above: Performed By: #### V ITB1, ZINC #### [facility] [address] [place] [address] #### B12, FOL, CMP, PREALB, ANDREZ, CBCD #### [facility] [address] [place] [address] COMPREHENSIVE METABOLIC PANE Evan 10-04-2022 Albumin [Mass/Vol] 3.8 g/dL Normal 3.4-5.0 [facility] Comment on above: Performed By: #### V ITB1, ZINC #### [facility] [address] [place] [address] #### B12, FOL, CMP, PREALB, ANDREZ, CBCD #### [facility] [address] [place] [address] ALP [Catalytic activity/Vol] 63 U/L Normal 46-116 [facility] Comment on above: Performed By: #### V ITB1, ZINC #### [facility] [address] [place] [address] #### B12, FOL, CMP, PREALB, ANDREZ, CBCD #### [facility] [address] [place] [address] ALT [Catalytic activity/Vol] 18 U/L Normal 10-49 [facility] Comment on above: Performed By: #### V ITB1, ZINC #### [facility] [address] [place] [address] #### B12, FOL, CMP, PREALB, ANDREZ, CBCD #### [facility] [address] [place] [address] 57846 AST [Catalytic activity/Vol] 15 U/L Normal 0-34 [facility] Comment on above: Performed By: #### V ITB1, ZINC #### [facility] [address] [place] [address] #### B12, FOL, CMP, PREALB, ANDREZ, CBCD #### [facility] [address] [place] [address] 18387 Bilirubin [Mass/Vol] 0.3 mg/dL Normal 0.3-1.2 [facility] Comment on above: Performed By: #### V ITB1, ZINC #### [facility] [address] [place] [address] #### B12, FOL, CMP, PREALB, ANDREZ, CBCD #### [facility] [address] [place] [address] CALCIUM,TOTAL 9.2 md/dL Normal 8.7-10.4 [facility] Comment on above: Performed By: #### V ITB1, ZINC #### [facility] [address] [place] [address] #### B12, FOL, CMP, PREALB, ANDREZ, CBCD #### [facility] [address] [place] [address] Chloride [Moles/Vol] 105 mmol/L Normal 98-107 [facility] Comment on above: Performed By: #### V ITB1, ZINC #### [facility] [address] [place] [address] #### B12, FOL, CMP, PREALB, ANDREZ, CBCD #### [facility] [address] [place] [address] 93559 CO2 [Moles/Vol] 27 mmol/L Normal 20-31 [facility] Comment on above: Performed By: #### V ITB1, ZINC #### [facility] [address] [place] [address] #### B12, FOL, CMP, PREALB, ANDREZ, CBCD #### [facility] [address] [place] [address] Creatinine [Mass/Vol] 0.61 mg/dL Normal 0.55-1.02 [facility] Comment on above: Performed By: #### V ITB1, ZINC #### [facility] [address] [place] [address] #### B12, FOL, CMP, PREALB, ANDREZ, CBCD #### [facility] [address] [place] [address] EST GLOM FILT > 60 Normal [facility] Comment on above: Result Comment: Result [...] #### V ITB1, ZINC #### [facility] [address] [place] [address] #### B12, FOL, CMP, PREALB, ANDREZ, CBCD #### [facility] [address] [place] [address] 13982 ESTIMATED GLOM FILT RATE > 60 Normal [facility] Comment on above: Performed By: #### V ITB1, ZINC #### [facility] [address] [place] [address] #### B12, FOL, CMP, PREALB, ANDREZ, CBCD #### [facility] [address] [place] [address] 21548 Glucose [Mass/Vol] 87 mg/dL Normal 65-99 [facility] Comment on above: Performed By: #### V ITB1, ZINC #### [facility] [address] [place] [address] #### B12, FOL, CMP, PREALB, ANDREZ, CBCD #### [facility] [address] [place] [address] 50148 Potassium [Moles/Vol] 4.2 mmol/L Normal 3.4-5.1 [facility] Comment on above: Performed By: #### V ITB1, ZINC #### [facility] [address] [place] [address] #### B12, FOL, CMP, PREALB, ANDREZ, CBCD #### [facility] [address] [place] [address] 21551 Protein [Mass/Vol] 6.9 g/dL Normal 6.0-8.0 [facility] Comment on above: Performed By: #### V ITB1, ZINC #### [facility] [address] [place] [address] #### B12, FOL, CMP, PREALB, ANDREZ, CBCD #### [facility] [address] [place] [address] Sodium [Moles/Vol] 139 mmol/L Normal 136-145 [facility] Comment on above: Performed By: #### V ITB1, ZINC #### [facility] [address] [place] [address] #### B12, FOL, CMP, PREALB, ANDREZ, CBCD #### [facility] [address] [place] [address] Urea nitrogen [Mass/Vol] 14 mg/dL Normal 9-23 [facility] Comment on above: Performed By: #### V ITB1, ZINC #### [facility] [address] [place] [address] #### B12, FOL, CMP, PREALB, ANDREZ, CBCD #### [facility] [address] [place] [address] [id number] 10-04-2022 ESTIMATED AVERAGE GLUCOSE 100 Normal [facility] Comment on above: Performed By: #### V ITB1, ZINC #### [facility] [address] [place] [address] #### B12, FOL, CMP, PREALB, ANDREZ, CBCD #### [facility] [address] [place] [address] HbA1c (Bld) [Mass fraction] 5.1 % Normal 4.8-5.6 [facility] Comment on above: Result Comment: Standarization of method based on National Glycohemoglobin Standardization Program (NGSP). HEMOGLOBIN A1c(%) DEGREE of GLUCOSE CONTROL 5.7-6.4% Prediabetes range >6.4% Diagnosis of Diabetes <7% Glycemic control for adults with Diabetes Performed By: #### V ITB1, ZINC #### [facility] [address] [place] [address] #### B12, FOL, CMP, PREALB, ANDREZ, CBCD #### [facility] [address] [place] [address] 24884 LIPID PANEL CHOLESTEROL/HDLo n 10-04-2022 Cholesterol [Mass/Vol] 122 mg/dL Normal <200 [facility] Comment on above: Performed By: #### V ITB1, ZINC #### [facility] [address] [place] [address] #### B12, FOL, CMP, PREALB, ANDREZ, CBCD #### [facility] [address] [place] [address] 16990 Cholesterol in HDL [Mass/Vol] 28 mg/dL Low 40-60 [facility] Comment on above: Performed By: #### V ITB1, ZINC #### [facility] [address] [place] [address] #### B12, FOL, CMP, PREALB, ANDREZ, CBCD #### [facility] [address] [place] [address] 33253 Cholesterol in LDL [Mass/Vol] 55 mg/dL Normal 9-159 [facility] Comment on above: Performed By: #### V ITB1, ZINC #### [facility] [address] [place] [address] #### B12, FOL, CMP, PREALB, ANDREZ, CBCD #### [facility] [address] [place] [address] 11979 Cholesterol.total/Chol esterol in HDL [Mass ratio] 4.4 {ratio} Normal [facility] Comment on above: Performed By: #### V ITB1, ZINC #### [facility] [address] [place] [address] #### B12, FOL, CMP, PREALB, ANDREZ, CBCD #### [facility] [address] [place] [address] Triglyceride [Mass/Vol] 196 mg/dL High <150 [facility] Comment on above: Result Comment: TRIGLYCERIDE RISK ASSESSMENT: 150-199 mg/dl BORDERLINE HIGH >200 mg//dl HIGH . Performed By: #### V ITB1, ZINC #### [facility] [address] [place] [address] #### B12, FOL, CMP, PREALB, ANDREZ, CBCD #### [facility] [address] [place] [address] 46907 VLDL CHOLESTEROL 39 mg/dL Normal 6-40 [facility] Comment on above: Performed By: #### V ITB1, ZINC #### [facility] [address] [place] [address] #### B12, FOL, CMP, PREALB, ANDREZ, CBCD #### [facility] [address] [place] [address] 63328 THROAT CULTUREon 08-15-2022 Throat culture THROAT CULTURE NORMAL ARIN Normal [facility] Comment on above: Performed By: #### V ITB1, ZINC #### [facility] [address] [place] [address] #### B12, FOL, CMP, PREALB, ANDREZ, CBCD #### [facility] [address] [place] [address] 04261 NOVL CORONAVIRUS NAAon 08-14 SARS-CoV-2 (COVID-19) RNA SUJATA+probe Ql (Unsp spec) Detected Abnormal Not Detected [facility] Comment on above: Result Comment: Evelyn ents who have a positive COVID-19 test result may now have treatment options. Treatment options are available for patients with mild to moderate symptoms and for hospitalized patients. Visit our website at [email or web address] for resources and information. This nucleic acid amplification test was developed and its performance characteristics determined by [employer]. Nucleic acid amplification tests include RT- PCR [...] #### V ITB1, ZINC #### [facility] [address] [place] [address] #### B12, FOL, CMP, PREALB, ANDREZ, CBCD #### [facility] [address] [place] [address] 93322 CBC with DIFFERENTIALon 08-01 Basophils (Bld) [#/Vol] 0.0 10*3/uL Normal 0.0-0.1 [facility] Comment on above: Performed By: #### V ITB1, ZINC #### [facility] [address] [place] [address] #### B12, FOL, CMP, PREALB, ANDREZ, CBCD #### [facility] [address] [place] [address] 04916 Basophils/100 WBC (Bld) 0.5 % Normal 0.0-1.0 [facility] Comment on above: Performed By: #### V ITB1, ZINC #### [facility] [address] [place] [address] #### B12, FOL, CMP, PREALB, ANDREZ, CBCD #### [facility] [address] [place] [address] 73097 Eosinophils (Bld) [#/Vol] 0.2 10*3/uL Normal 0.0-0.4 [facility] Comment on above: Performed By: #### V ITB1, ZINC #### [facility] [address] [place] [address] #### B12, FOL, CMP, PREALB, ANDREZ, CBCD #### [facility] [address] [place] [address] 66735 Eosinophils/100 WBC (Bld) 4.2 % High 1.0-4.0 [facility] Comment on above: Performed By: #### V ITB1, ZINC #### [facility] [address] [place] [address] #### B12, FOL, CMP, PREALB, ANDREZ, CBCD #### [facility] [address] [place] [address] 76670 Hematocrit (Bld) [Volume fraction] 43.8 % Normal 37.0-47.0 [facility] Comment on above: Performed By: #### V ITB1, ZINC #### [facility] [address] [place] [address] #### B12, FOL, CMP, PREALB, ANDREZ, CBCD #### [facility] [address] [place] [address] 81568 Hemoglobin (Bld) [Mass/Vol] 14.0 g/dL Normal 12.0-16.0 [facility] Comment on above: Performed By: #### V ITB1, ZINC #### [facility] [address] [place] [address] #### B12, FOL, CMP, PREALB, ANDREZ, CBCD #### [facility] [address] [place] [address] 01374 IG # 0.1 10*3/uL Normal 0.0-0.1 [facility] Comment on above: Performed By: #### V ITB1, ZINC #### [facility] [address] [place] [address] #### B12, FOL, CMP, PREALB, ANDREZ, CBCD #### [facility] [address] [place] [address] IG % 1.1 % High 0.0-1.0 [facility] Comment on above: Performed By: #### V ITB1, ZINC #### [facility] [address] [place] [address] #### B12, FOL, CMP, PREALB, ANDREZ, CBCD #### [facility] [address] [place] [address] 47188 Lymphocytes (Bld) [#/Vol] 2.9 10*3/uL Normal 1.3-4.4 [facility] Comment on above: Performed By: #### V ITB1, ZINC #### [facility] [address] [place] [address] #### B12, FOL, CMP, PREALB, ANDREZ, CBCD #### [facility] [address] [place] [address] 42719 Lymphocytes/100 WBC (Bld) 51.5 % High 27.0-41.0 [facility] Comment on above: Performed By: #### V ITB1, ZINC #### [facility] [address] [place] [address] #### B12, FOL, CMP, PREALB, ANDREZ, CBCD #### [facility] [address] [place] [address] 87002 MCV (RBC) [Entitic vol] 88.8 fL Normal 81.0-99.0 [facility] Comment on above: Performed By: #### V ITB1, ZINC #### [facility] [address] [place] [address] #### B12, FOL, CMP, PREALB, ANDREZ, CBCD #### [facility] [address] [place] [address] 39951 MEAN CORPUSCULAR HGB 28.4 pg Normal 27.0-31.0 [facility] Comment on above: Performed By: #### V ITB1, ZINC #### [facility] [address] [place] [address] #### B12, FOL, CMP, PREALB, ANDREZ, CBCD #### [facility] [address] [place] [address] 46725 MEAN CORPUSCULAR HGB CONC 32.0 g/dl Low 33.0-37.0 [facility] Comment on above: Performed By: #### V ITB1, ZINC #### [facility] [address] [place] [address] #### B12, FOL, CMP, PREALB, ANDREZ, CBCD #### [facility] [address] [place] [address] 48310 Monocytes (Bld) [#/Vol] 0.4 10*3/uL Normal 0.1-1.0 [facility] Comment on above: Performed By: #### V ITB1, ZINC #### [facility] [address] [place] [address] #### B12, FOL, CMP, PREALB, ANDREZ, CBCD #### [facility] [address] [place] [address] 26671 Monocytes/100 WBC (Bld) 7.0 % Normal 3.0-9.0 [facility] Comment on above: Performed By: #### V ITB1, ZINC #### [facility] [address] [place] [address] #### B12, FOL, CMP, PREALB, ANDREZ, CBCD #### [facility] [address] [place] [address] 42865 Neutrophils (Bld) [#/Vol] 2.0 10*3/uL Low 2.3-7.9 [facility] Comment on above: Performed By: #### V ITB1, ZINC #### [facility] [address] [place] [address] #### B12, FOL, CMP, PREALB, ANDREZ, CBCD #### [facility] [address] [place] [address] 36030 Neutrophils/100 WBC (Bld) 35.7 % Low 47.0-73.0 [facility] Comment on above: Performed By: #### V ITB1, ZINC #### [facility] [address] [place] [address] #### B12, FOL, CMP, PREALB, ANDREZ, CBCD #### [facility] [address] [place] [address] 31273 NUCLEATED RED BLOOD CELL 0.0 10*3/uL Normal 0.0-0.0 [facility] Comment on above: Performed By: #### V ITB1, ZINC #### [facility] [address] [place] [address] #### B12, FOL, CMP, PREALB, ANDREZ, CBCD #### [facility] [address] [place] [address] 41372 NUCLEATED RED BLOOD CELL 0.0 % Normal 0.0-0.0 [facility] Comment on above: Performed By: #### V ITB1, ZINC #### [facility] [address] [place] [address] #### B12, FOL, CMP, PREALB, ANDREZ, CBCD #### [facility] [address] [place] [address] [id number] PLATELET COUNT AUTOMATED 277 10*3/uL Normal 130-400 [facility] Comment on above: Performed By: #### V ITB1, ZINC #### [facility] [address] [place] [address] #### B12, FOL, CMP, PREALB, ANDREZ, CBCD #### [facility] [address] [place] [address] [id number] Platelet mean volume (Bld) [Entitic vol] 10.1 fL Normal 9.6-12.3 [facility] Comment on above: Performed By: #### V ITB1, ZINC #### [facility] [address] [place] [address] #### B12, FOL, CMP, PREALB, ANDREZ, CBCD #### [facility] [address] [place] [address] [id number] RBC (Bld) [#/Vol] 4.93 10*6/uL Normal 4.10-5.10 [facility] Comment on above: Performed By: #### V ITB1, ZINC #### [facility] [address] [place] [address] #### B12, FOL, CMP, PREALB, ANDREZ, CBCD #### [facility] [address] [place] [address] [id number] RED CELL DISTRI WIDTH 13.6 % Normal 0-14.5 [facility] Comment on above: Performed By: #### V ITB1, ZINC #### [facility] [address] [place] [address] #### B12, FOL, CMP, PREALB, ANDREZ, CBCD #### [facility] [address] [place] [address] [id number] WBC (Bld) [#/Vol] 5.7 10*3/uL Normal 4.8-10.8 [facility] Comment on above: Performed By: #### V ITB1, ZINC #### [facility] [address] [place] [address] #### B12, FOL, CMP, PREALB, ANDREZ, CBCD #### [facility] [address] [place] [address] 93476 CHEST (2 V)on 08-13-2022 [facility] Name: BATOOL KINGSLEY Phys: KAELA FRENCH CNP : 2000 Age: 22 Sex: F Acct: [id number] Loc: RAD Exam Date: 08/13/2022 Status: REG CLI Radiology No: [id number] Unit No: [id number] EXAM# TYPE/EXAM RESULT [id number] RAD/CHEST (2 V) SEE REPORT INDICATION: Stuffy [...] CC: Technologist: WIN CHRISTIE Transcribed Date/Time: 08/13/2022 (0825) Dot Net Architect: OSCAR Printed Date/Time: 08/13/2022 (0365) PAGE 1 Signed Report Normal [facility] COMPREHENSIVE METABOLIC PANE Evan 08-13-2022 Albumin [Mass/Vol] 3.7 g/dL Normal 3.4-5.0 [facility] Comment on above: Performed By: #### V ITB1, ZINC #### [facility] [address] #### B12, FOL, CMP, PREALB, ANDREZ, CBCD #### [facility] [address] [place] [address] 17168 ALP [Catalytic activity/Vol] 56 U/L Normal 46-116 [facility] Comment on above: Performed By: #### V ITB1, ZINC #### [facility] [address] [place] [address] #### B12, FOL, CMP, PREALB, ANDREZ, CBCD #### [facility] [address] [place] [address] 01076 ALT [Catalytic activity/Vol] 21 U/L Normal 10-49 [facility] Comment on above: Performed By: #### V ITB1, ZINC #### [facility] [address] [place] [address] #### B12, FOL, CMP, PREALB, ANDREZ, CBCD #### [facility] [address] [place] [address] 70092 AST [Catalytic activity/Vol] 23 U/L Normal 0-34 [facility] Comment on above: Performed By: #### V ITB1, ZINC #### [facility] [address] [place] [address] #### B12, FOL, CMP, PREALB, ANDREZ, CBCD #### [facility] [address] [place] [address] Bilirubin [Mass/Vol] mg/dL Low 0.3-1.2 [facility] Comment on above: Performed By: #### V ITB1, ZINC #### [facility] [address] [place] [address] #### B12, FOL, CMP, PREALB, ANDREZ, CBCD #### [facility] [address] [place] [address] 31543 CALCIUM,TOTAL 9.2 md/dL Normal 8.7-10.4 [facility] Comment on above: Performed By: #### V ITB1, ZINC #### [facility] [address] [place] [address] #### B12, FOL, CMP, PREALB, ANDREZ, CBCD #### [facility] [address] [place] [address] 25571 Chloride [Moles/Vol] 105 mmol/L Normal 98-107 [facility] Comment on above: Performed By: #### V ITB1, ZINC #### [facility] [address] [place] [address] #### B12, FOL, CMP, PREALB, ANDREZ, CBCD #### [facility] [address] [place] [address] 92915 CO2 [Moles/Vol] 25 mmol/L Normal 20-31 [facility] Comment on above: Performed By: #### V ITB1, ZINC #### [facility] [address] [place] [address] #### B12, FOL, CMP, PREALB, ANDREZ, CBCD #### [facility] [address] [place] [address] 17088 Creatinine [Mass/Vol] 0.53 mg/dL Low 0.55-1.02 [facility] Comment on above: Performed By: #### V ITB1, ZINC #### [facility] [address] [place] [address] #### B12, FOL, CMP, PREALB, ANDREZ, CBCD #### [facility] [address] [place] [address] EST GLOM FILT > 60 Normal [facility] Comment on above: Result Comment: Result [...] #### V ITB1, ZINC #### [facility] [address] [place] [address] #### B12, FOL, CMP, PREALB, ANDREZ, CBCD #### [facility] [address] [place] [address] ESTIMATED GLOM FILT RATE > 60 Normal [facility] Comment on above: Performed By: #### V ITB1, ZINC #### [facility] [address] [place] [address] #### B12, FOL, CMP, PREALB, ANDREZ, CBCD #### [facility] [address] [place] [address] Glucose [Mass/Vol] 81 mg/dL Normal 65-99 [facility] Comment on above: Performed By: #### V ITB1, ZINC #### [facility] [address] [place] [address] #### B12, FOL, CMP, PREALB, ANDREZ, CBCD #### [facility] [address] [place] [address] 84904 Potassium [Moles/Vol] 4.5 mmol/L Normal 3.4-5.1 [facility] Comment on above: Performed By: #### V ITB1, ZINC #### [facility] [address] [place] [address] #### B12, FOL, CMP, PREALB, ANDREZ, CBCD #### [facility] [address] [place] [address] 02526 Protein [Mass/Vol] 7.0 g/dL Normal 6.0-8.0 [facility] Comment on above: Performed By: #### V ITB1, ZINC #### [facility] [address] [place] [address] #### B12, FOL, CMP, PREALB, ANDREZ, CBCD #### [facility] [address] [place] [address] 17332 Sodium [Moles/Vol] 138 mmol/L Normal 136-145 [facility] Comment on above: Performed By: #### V ITB1, ZINC #### [facility] [address] [place] [address] #### B12, FOL, CMP, PREALB, ANDREZ, CBCD #### [facility] [address] [place] [address] 91704 Urea nitrogen [Mass/Vol] 7 mg/dL Low 9-23 [facility] Comment on above: Performed By: #### V ITB1, ZINC #### [facility] [address] [place] [address] #### B12, FOL, CMP, PREALB, ANDREZ, CBCD #### [facility] [address] [place] [address] 20223 ESR (Sed Rate)on 08-13-2022 ESR (Bld) [Velocity] 20 mm/h Normal 0-20 [facility] Comment on above: Performed By: #### V ITB1, ZINC #### [facility] [address] [place] [address] #### B12, FOL, CMP, PREALB, ANDREZ, CBCD #### [facility] [address] [place] [address] 88737 CBC with DIFFERENTIALon 07-03 Basophils (Bld) [#/Vol] 0.1 10*3/uL Normal 0.0-0.1 [facility] Comment on above: Performed By: #### C MP, TSH, LIPPAN, HBA1C, CBCD, INS #### [facility] [address] [place] [address] 53175 Basophils/100 WBC (Bld) 0.7 % Normal 0.0-1.0 [facility] Comment on above: Performed By: #### C MP, TSH, LIPPAN, HBA1C, CBCD, INS #### [facility] [address] [place] [address] 97821 Eosinophils (Bld) [#/Vol] 0.3 10*3/uL Normal 0.0-0.4 [facility] Comment on above: Performed By: #### C MP, TSH, LIPPAN, HBA1C, CBCD, INS #### [facility] [address] [place] [address] 73469 Eosinophils/100 WBC (Bld) 4.3 % High 1.0-4.0 [facility] Comment on above: Performed By: #### C MP, TSH, LIPPAN, HBA1C, CBCD, INS #### [facility] [address] [place] [address] 14986 Hematocrit (Bld) [Volume fraction] 43.7 % Normal 37.0-47.0 [facility] Comment on above: Performed By: #### C MP, TSH, LIPPAN, HBA1C, CBCD, INS #### [facility] [address] [place] [address] 34997 Hemoglobin (Bld) [Mass/Vol] 13.9 g/dL Normal 12.0-16.0 [facility] Comment on above: Performed By: #### C MP, TSH, LIPPAN, HBA1C, CBCD, INS #### [facility] [address] [place] [address] 83734 IG # 0.0 10*3/uL Normal 0.0-0.1 [facility] Comment on above: Performed By: #### C MP, TSH, LIPPAN, HBA1C, CBCD, INS #### [facility] [address] [place] [address] 96976 IG % 0.4 % Normal 0.0-1.0 [facility] Comment on above: Performed By: #### C MP, TSH, LIPPAN, HBA1C, CBCD, INS #### [facility] [address] [place] [address] 11873 Lymphocytes (Bld) [#/Vol] 3.2 10*3/uL Normal 1.3-4.4 [facility] Comment on above: Performed By: #### C MP, TSH, LIPPAN, HBA1C, CBCD, INS #### [facility] [address] [place] [address] 34357 Lymphocytes/100 WBC (Bld) 42.7 % High 27.0-41.0 [facility] Comment on above: Performed By: #### C MP, TSH, LIPPAN, HBA1C, CBCD, INS #### [facility] [address] [place] [address] 94416 MCV (RBC) [Entitic vol] 90.3 fL Normal 81.0-99.0 [facility] Comment on above: Performed By: #### C MP, TSH, LIPPAN, HBA1C, CBCD, INS #### [facility] [address] [place] [address] 85912 MEAN CORPUSCULAR HGB 28.7 pg Normal 27.0-31.0 [facility] Comment on above: Performed By: #### C MP, TSH, LIPPAN, HBA1C, CBCD, INS #### [facility] [address] [place] [address] 99479 MEAN CORPUSCULAR HGB CONC 31.8 g/dl Low 33.0-37.0 [facility] Comment on above: Performed By: #### C MP, TSH, LIPPAN, HBA1C, CBCD, INS #### [facility] [address] [place] [address] Monocytes (Bld) [#/Vol] 0.4 10*3/uL Normal 0.1-1.0 [facility] Comment on above: Performed By: #### C MP, TSH, LIPPAN, HBA1C, CBCD, INS #### [facility] [address] [place] [address] 03405 Monocytes/100 WBC (Bld) 5.4 % Normal 3.0-9.0 [facility] Comment on above: Performed By: #### C MP, TSH, LIPPAN, HBA1C, CBCD, INS #### [facility] [address] [place] [address] 92539 Neutrophils (Bld) [#/Vol] 3.4 10*3/uL Normal 2.3-7.9 [facility] Comment on above: Performed By: #### C MP, TSH, LIPPAN, HBA1C, CBCD, INS #### [facility] [address] [place] [address] 99249 Neutrophils/100 WBC (Bld) 46.5 % Low 47.0-73.0 [facility] Comment on above: Performed By: #### C MP, TSH, LIPPAN, HBA1C, CBCD, INS #### [facility] [address] [place] [address] 63838 NUCLEATED RED BLOOD CELL 0.0 10*3/uL Normal 0.0-0.0 [facility] Comment on above: Performed By: #### C MP, TSH, LIPPAN, HBA1C, CBCD, INS #### [facility] [address] [place] [address] 02598 NUCLEATED RED BLOOD CELL 0.0 % Normal 0.0-0.0 [facility] Comment on above: Performed By: #### C MP, TSH, LIPPAN, HBA1C, CBCD, INS #### [facility] [address] [place] [address] PLATELET COUNT AUTOMATED 309 10*3/uL Normal 130-400 [facility] Comment on above: Performed By: #### C MP, TSH, LIPPAN, HBA1C, CBCD, INS #### [facility] [address] [place] [address] Platelet mean volume (Bld) [Entitic vol] 10.3 fL Normal 9.6-12.3 [facility] Comment on above: Performed By: #### C MP, TSH, LIPPAN, HBA1C, CBCD, INS #### [facility] [address] [place] [address] RBC (Bld) [#/Vol] 4.84 10*6/uL Normal 4.10-5.10 [facility] Comment on above: Performed By: #### C MP, TSH, LIPPAN, HBA1C, CBCD, INS #### [facility] [address] [place] [address] RED CELL DISTRI WIDTH 13.5 % Normal 0-14.5 [facility] Comment on above: Performed By: #### C MP, TSH, LIPPAN, HBA1C, CBCD, INS #### [facility] [address] [place] [address] WBC (Bld) [#/Vol] 7.4 10*3/uL Normal 4.8-10.8 [facility] Comment on above: Performed By: #### C MP, TSH, LIPPAN, HBA1C, CBCD, INS #### [facility] [address] [place] [address] COMPREHENSIVE METABOLIC PANE Evan 07-31-2022 Albumin [Mass/Vol] 3.9 g/dL Normal 3.4-5.0 [facility] Comment on above: Performed By: #### V ITB1, ZINC #### [facility] [address] [place] [address] #### B12, FOL, CMP, PREALB, ANDREZ, CBCD #### [facility] [address] [place] [address] ALP [Catalytic activity/Vol] 60 U/L Normal 46-116 [facility] Comment on above: Performed By: #### V ITB1, ZINC #### [facility] [address] [place] [address] #### B12, FOL, CMP, PREALB, ANDREZ, CBCD #### [facility] [address] [place] [address] 40413 ALT [Catalytic activity/Vol] 23 U/L Normal 10-49 [facility] Comment on above: Performed By: #### V ITB1, ZINC #### [facility] [address] [place] [address] #### B12, FOL, CMP, PREALB, ANDREZ, CBCD #### [facility] [address] [place] [address] 30239 AST [Catalytic activity/Vol] 17 U/L Normal 0-34 [facility] Comment on above: Performed By: #### V ITB1, ZINC #### [facility] [address] [place] [address] #### B12, FOL, CMP, PREALB, ANDREZ, CBCD #### [facility] [address] [place] [address] 32743 Bilirubin [Mass/Vol] 0.3 mg/dL Normal 0.3-1.2 [facility] Comment on above: Performed By: #### V ITB1, ZINC #### [facility] [address] [place] [address] #### B12, FOL, CMP, PREALB, ANDREZ, CBCD #### [facility] [address] [place] [address] 04447 CALCIUM,TOTAL 9.6 md/dL Normal 8.7-10.4 [facility] Comment on above: Performed By: #### V ITB1, ZINC #### [facility] [address] [place] [address] #### B12, FOL, CMP, PREALB, ANDREZ, CBCD #### [facility] [address] [place] [address] Chloride [Moles/Vol] 102 mmol/L Normal 98-107 [facility] Comment on above: Performed By: #### V ITB1, ZINC #### [facility] [address] [place] [address] #### B12, FOL, CMP, PREALB, ANDREZ, CBCD #### [facility] [address] [place] [address] CO2 [Moles/Vol] 27 mmol/L Normal 20-31 [facility] Comment on above: Performed By: #### V ITB1, ZINC #### [facility] [address] [place] [address] #### B12, FOL, CMP, PREALB, ANDREZ, CBCD #### [facility] [address] [place] [address] Creatinine [Mass/Vol] 0.58 mg/dL Normal 0.55-1.02 [facility] Comment on above: Performed By: #### V ITB1, ZINC #### [facility] [address] [place] [address] #### B12, FOL, CMP, PREALB, ANDREZ, CBCD #### [facility] [address] [place] [address] EST GLOM FILT > 60 Normal [facility] Comment on above: Result Comment: Result [...] #### V ITB1, ZINC #### [facility] [address] [place] [address] #### B12, FOL, CMP, PREALB, ANDREZ, CBCD #### [facility] [address] [place] [address] 24637 ESTIMATED GLOM FILT RATE > 60 Normal [facility] Comment on above: Performed By: #### V ITB1, ZINC #### [facility] [address] [place] [address] #### B12, FOL, CMP, PREALB, ANDREZ, CBCD #### [facility] [address] [place] [address] 73093 Glucose [Mass/Vol] 73 mg/dL Normal 65-99 [facility] Comment on above: Performed By: #### V ITB1, ZINC #### [facility] [address] [place] [address] #### B12, FOL, CMP, PREALB, ANDREZ, CBCD #### [facility] [address] [place] [address] 04521 Potassium [Moles/Vol] 4.2 mmol/L Normal 3.4-5.1 [facility] Comment on above: Performed By: #### V ITB1, ZINC #### [facility] [address] [place] [address] #### B12, FOL, CMP, PREALB, ANDREZ, CBCD #### [facility] [address] [place] [address] 44524 Protein [Mass/Vol] 7.2 g/dL Normal 6.0-8.0 [facility] Comment on above: Performed By: #### V ITB1, ZINC #### [facility] [address] [place] [address] #### B12, FOL, CMP, PREALB, ANDREZ, CBCD #### [facility] [address] [place] [address] 57473 Sodium [Moles/Vol] 137 mmol/L Normal 136-145 [facility] Comment on above: Performed By: #### V ITB1, ZINC #### [facility] [address] [place] [address] #### B12, FOL, CMP, PREALB, ANDREZ, CBCD #### [facility] [address] [place] [address] Urea nitrogen [Mass/Vol] 11 mg/dL Normal 9-23 [facility] Comment on above: Performed By: #### V ITB1, ZINC #### [facility] [address] [place] [address] #### B12, FOL, CMP, PREALB, ANDREZ, CBCD #### [facility] [address] [place] [address] 89301 QBS4Wms 07-31-2022 ESTIMATED AVERAGE GLUCOSE 100 Normal [facility] Comment on above: Performed By: #### V ITB1, ZINC #### [facility] [address] [place] [address] #### B12, FOL, CMP, PREALB, ANDREZ, CBCD #### [facility] [address] [place] [address] 71463 HbA1c (Bld) [Mass fraction] 5.1 % Normal 4.8-5.6 [facility] Comment on above: Result Comment: Standarization of method based on National Glycohemoglobin Standardization Program (NGSP). HEMOGLOBIN A1c(%) DEGREE of GLUCOSE CONTROL 5.7-6.4% Prediabetes range >6.4% Diagnosis of Diabetes <7% Glycemic control for adults with Diabetes Performed By: #### V ITB1, ZINC #### [facility] [address] [place] [address] #### B12, FOL, CMP, PREALB, ANDREZ, CBCD #### [facility] [address] [place] [address] INSULINon 07-31-2022 INSULIN 45.6 mU/L High 2.6-37.6 [facility] Comment on above: Performed By: #### V ITB1, ZINC #### [facility] [address] [place] [address] #### B12, FOL, CMP, PREALB, ANDREZ, CBCD #### [facility] [address] [place] [address] LIPID PANEL CHOLESTEROL/HDLo n 07-31-2022 Cholesterol [Mass/Vol] 170 mg/dL Normal <200 [facility] Comment on above: Performed By: #### V ITB1, ZINC #### [facility] [address] [place] [address] #### B12, FOL, CMP, PREALB, ANDREZ, CBCD #### [facility] [address] [place] [address] Cholesterol in HDL [Mass/Vol] 31 mg/dL Low 40-60 [facility] Comment on above: Performed By: #### V ITB1, ZINC #### [facility] [address] [place] [address] #### B12, FOL, CMP, PREALB, ANDREZ, CBCD #### [facility] [address] [place] [address] 53114 Cholesterol in LDL [Mass/Vol] 73 mg/dL Normal 9-159 [facility] Comment on above: Performed By: #### V ITB1, ZINC #### [facility] [address] [place] [address] #### B12, FOL, CMP, PREALB, ANDREZ, CBCD #### [facility] [address] [place] [address] Cholesterol.total/Chol esterol in HDL [Mass ratio] 5.5 {ratio} Normal [facility] Comment on above: Performed By: #### V ITB1, ZINC #### [facility] [address] [place] [address] #### B12, FOL, CMP, PREALB, ANDREZ, CBCD #### [facility] [address] [place] [address] Triglyceride [Mass/Vol] 328 mg/dL High <150 [facility] Comment on above: Result Comment: TRIGLYCERIDE RISK ASSESSMENT: 150-199 mg/dl BORDERLINE HIGH >200 mg//dl HIGH . Performed By: #### V ITB1, ZINC #### [facility] [address] [place] [address] #### B12, FOL, CMP, PREALB, ANDREZ, CBCD #### [facility] [address] [place] [address] VLDL CHOLESTEROL 66 mg/dL High 6-40 [facility] Comment on above: Performed By: #### V ITB1, ZINC #### [facility] [address] [place] [address] #### B12, FOL, CMP, PREALB, ANDREZ, CBCD #### [facility] [address] [place] [address] THYROID STIM HORMONE (HS)on 07-31-2022 THYROID STIM HORMONE (HS) 2.569 uIU/ml Normal 0.550-4.780 [facility] Comment on above: Performed By: #### V ITB1, ZINC #### [facility] [address] [place] [address] #### B12, FOL, CMP, PREALB, ANDREZ, CBCD #### [facility] [address] [place] [address] NICOTINE METABOLITE, QUANTon 07-19-2022 COTININE <1.0 Normal . [facility] Comment on above: Order Comment: FAX T O [phone] Result Comment: This test was developed and its performance characteristics determined by [facility]. It has not been cleared or approved by the Food and Drug Administration. Cotinine levels greater than 20.0 are consistent with the use of tobacco or tobacco cessation products. Performed at: [facility], [place], [place] [id number] Business Operations Specialist: Estuardo Michelle MD, Phone: [phone] Performed By: #### N ICOTINE #### [facility] [address] [place] [address] NICOTINE <1.0 Normal . [facility] Comment on above: Order Comment: FAX T O [phone] Result Comment: This test was developed and its performance characteristics determined by [facility]. It has not been cleared or approved by the Food and Drug Administration. Nicotine levels greater than 2.0 are consistent with the use of tobacco or tobacco cessation products. Performed By: #### N ICOTINE #### [facility] [address] [place] [address] HIPS BILATERAL (2V)on 2021 [facility] Name: BATOOL KINGSLEY Phys: LASHAWN WELLS NP : 2000 Age: 22 Sex: F Acct: [id number] Loc: RAD Exam Date: 06/14/2022 Status: REG CLI Radiology No: [id number] Unit No: [id number] EXAM# TYPE/EXAM RESULT [id number] RAD/HIPS BILATERAL (2V) SEE REPORT INDICATION: Sharp [...] NP Technologist: Eugene Wagner Transcribed Date/Time: 06/14/2022 (1633) Dot Net Architect: OSCAR Printed Date/Time: 06/14/2022 (4864) PAGE 1 Signed Report Normal [facility] Vitamin B1 (Thiamine), Whole Bloodon 05-09-2022 Vitamin B1, Whole Blood 116 nmol/L Normal 70-180 [facility] Comment on above: Result Comment: INTE [...] developed and its performance characteristics determined by [facility]. It has not been cleared or approved by the [place] Food and Drug Administration. This test was performed in a CLIA certified laboratory and is intended for clinical purposes. Performed By: [facility] [address] [place] [address] Cello Teacher: Francisco Javier Zhang MD, PhD Performed By: #### 8 [id number] ####[facility] Reference [address] [place] [address] Zinc, Serumon 05-07-2022 Zinc, Serum 75.6 ug/dL Normal 60.0-120.0 [facility] Comment on above: Result Comment: INTE [...] developed and its performance characteristics determined by [facility]. It has not been cleared or approved by the [place] Food and Drug Administration. This test was performed in a CLIA certified laboratory and is intended for clinical purposes. Performed By: [facility] [address] [place], [place] [id number] Cello Teacher: Francisco Javier Zhang MD, PhD Performed By: #### 2 0097 #### [facility] Reference Lab [address] [place], [place] [id number] [facility]04 Glucose [Mass/Vol] 96 mg/dL [facility] [employer] Work Phone: QC OK? [facility] Work Phone: CBCon 05-04-2022 Hematocrit (Bld) [Volume fraction] 40.4 % 34.0 - 48.0 % [facility] Hemoglobin (Bld) [Mass/Vol] 13.2 g/dL 11.5 - 15.5 g/dL [facility] MCH (RBC) [Entitic mass] 29.9 pg 26.0 - 35.0 pg [facility] MCHC (RBC) [Mass/Vol] 32.7 % 32.0 - 34.5 % [facility] MCV (RBC) [Entitic vol] 91.6 fL 80.0 - 99.9 fL [facility] Platelet distribution width (Bld) [Ratio] 13.0 fL 11.5 - 15.0 fL [facility] Platelet mean volume (Bld) [Entitic vol] 9.8 fL 7.0 - 12.0 fL [facility] Platelets (Bld) [#/Vol] 313 10*3/uL [facility] RBC (Bld) [#/Vol] 4.41 10*6/uL [facility] WBC (Bld) [#/Vol] 9.2 10*3/uL [facility] CBC With Platelet No Differe ntialon 05-04-2022 Hematocrit (Bld) [Volume fraction] 40.4 % Normal 34.0-48.0 [facility] Hemoglobin (Bld) [Mass/Vol] 13.2 g/dL Normal 11.5-15.5 [facility] MCH (RBC) [Entitic mass] 29.9 pg Normal 26.0-35.0 [facility] MCHC 32.7 % Normal 32.0-34.5 [facility] MCV (RBC) [Entitic vol] 91.6 fL Normal 80.0-99.9 [facility] Platelet Count 313 E9/L Normal 130-450 [facility] [facility] Platelet mean volume (Bld) [Entitic vol] 9.8 fL Normal 7.0-12.0 [facility] RBC 4.41 E12/L Normal 3.50-5.50 [facility] RDW 13.0 fL Normal 11.5-15.0 [facility] WBC 9.2 E9/L Normal 4.5-11.5 [facility] Cholesterolon 05-04-2022 Cholesterol [Mass/Vol] 162 mg/dL Normal 0-199 [facility] Cholesterol, Totalon 022 Cholesterol [Mass/Vol] 162 mg/dL 0 - 1 99 mg/dL [facility] Comprehensive Metabolic Pane evan 05-04-2022 Albumin [Mass/Vol] 4.1 g/dL Normal 3.5-5.2 [facility] ALP [Catalytic activity/Vol] 64 U/L Normal 35-104 [facility] ALT [Catalytic activity/Vol] 22 U/L Normal 0-32 [facility] Anion gap [Moles/Vol] 10 mmol/L Normal 7-16 [facility] AST [Catalytic activity/Vol] 13 U/L Normal 0-31 [facility] Bilirubin [Mass/Vol] 0.2 mg/dL Normal 0.0-1.2 [facility] Calcium [Mass/Vol] 8.9 mg/dL Normal 8.6-10.2 [facility] Chloride [Moles/Vol] 102 mmol/L Normal 98-107 [facility] CO2 [Moles/Vol] 25 mmol/L Normal 22-29 [facility] Creatinine [Mass/Vol] 0.7 mg/dL Normal 0.5-1.0 [facility] GFR Calculated >60 Normal >=60 [facility] Comment on above: Result Comment: Dion atric [...] secretion. Glucose [Mass/Vol] 96 mg/dL Normal 74-99 [facility] Potassium [Moles/Vol] 4.5 mmol/L Normal 3.5-5.0 [facility] Protein [Mass/Vol] 6.9 g/dL Normal 6.4-8.3 [facility] Sodium [Moles/Vol] 137 mmol/L Normal 132-146 [facility] Urea nitrogen [Mass/Vol] 17 mg/dL Normal 6-20 [facility] Albumin [Mass/Vol] 4.1 g/dL 3.5 - 5.2 g/dL [facility] ALP (Bld) [Catalytic activity/Vol] 64 U/L 35 - 104 U/L [facility] ALT [Catalytic activity/Vol] 22 U/L 0 - 32 U/L [facility] Anion gap [Moles/Vol] 10 mmol/L 7 - 16 mmol/L [facility] AST [Catalytic activity/Vol] 13 U/L 0 - 31 U/L [facility] Bilirubin [Mass/Vol] 0.2 mg/dL 0.0 - 1 .2 mg/dL [facility] Calcium [Mass/Vol] 8.9 mg/dL 8.6 - 10. 2 mg/dL [facility] Chloride [Moles/Vol] 102 mmol/L 98 - 10 7 mmol/L [facility] CO2 [Moles/Vol] 25 mmol/L 22 - 29 mmol/L [facility] Creatinine [Mass/Vol] 0.7 mg/dL 0.5 - 1.0 mg/dL [facility] GFR/1.73 sq M.predicted MDRD (S/P/Bld) [Vol rate/Area] mL/min/1.73 60 - PINF mL/min/1.73 [facility] Comment on above: Pediatric calculator link https://www.kidney.org/professionals/kdoqi/gfr_calculatorped [...] [Mass/Vol] 96 mg/dL 74 - 99 mg/dL [facility] Potassium [Moles/Vol] 4.5 mmol/L 3.5 - 5.0 mmol/L [facility] Protein [Mass/Vol] 6.9 g/dL 6.4 - 8.3 g/dL [facility] Sodium [Moles/Vol] 137 mmol/L 132 - 146 mmol/L [facility] [employer] Urea nitrogen (BldV) [Mass/Vol] 17 mg/dL 6 - 20 mg/dL [facility] Ferritinon 05-04-2022 Ferritin [Mass/Vol] 69 ng/mL Normal [facility] Comment on above: Result Comment: FERR ITIN Reference Ranges: Adult Males 20 - 60 years: 30 - 400 ng/mL Adult females 17 - 60 years: 13 - 150 ng/mL Adults greater than 60 years: no established reference range Pediatrics: no established reference range Folateon 05-04-2022 Folate 8.5 ng/mL Normal 4.8-24.2 [facility] Hgb A1Con 05-04-2022 HbA1c (Bld) [Mass fraction] 5.7 % High 4.0-5.6 [facility] METER GLUCOSEon 05-04-2022 Glucose [Mass/Vol] 93 mg/dL Normal 74-99 [facility] Glucose [Mass/Vol] 96 mg/dL Normal 74-99 [facility] No Panel Informationon 05-04 [facility] Work Phone: POC Urine Qualon 1 07-04-2021 Beta HCG ( test) Ql (U) Negative Negative [facility] Work Phone: Lot Number [id number] [employer] Phone: Negative QC Pass/Fail Pass [employer] Phone: Positive QC Pass/Fail Pass [employer] Phone: [employer] Phone: POCT Glucoseon 05-04-2022 Glucose [Mass/Vol] 93 mg/dL 74 - 99 mg/dL [facility] Glucose [Mass/Vol] 96 mg/dL 74 - 99 mg/dL [facility] Prealbuminon 05-04-2022 Prealbumin [Mass/Vol] 24 mg/dL Normal 20-40 [facility] Surgical Specimenon 05-04-20 Surgical Specimen [facility] [address], [place] [address] [address] FINAL SURGICAL PATHOLOGY REPORT NAME: BATOOL KINGSLEY Date of 05/04/2022 Collection: Medical Record [id number] Date of 05/04/2022 Number: Receipt: Age: 22 Y Sex: F Date 05/11/2022 08:29 Reported: Date Of : 2000 Financial [id number] Admitting DERIC FLORENCE Number: Physician: Patient DIS WILLEMPLMAGUI Ordering DERIC FLORENCE Location: Physician: Accession Number: [id number] Additional Physicians:KAELA FRENCH Diagnosis: Stomach, antrum, biopsy: Mild chronic gastritis [...] submitted. Block label: A1. (JORGE L:YAYA) CODES: 76407; Department of Pathology Page 1 of 1 Normal [facility] Triglycerideon 05-04-2022 Interpretation and review of laboratory results Abnormal [facility] Triglyceride [Mass/Vol] 274 mg/dL High 0 - 149 mg/dL [facility] Triglycerideson 05-04-2022 Triglyceride [Mass/Vol] 274 mg/dL High 0-149 [facility] Vitamin B12on 05-04-2022 Cobalamin (Vitamin B12) [Mass/Vol] 226 pg/mL Normal 211-946 [facility] US GALLBLADDER RUQon 022 US GALLBLADDER [...] Rohit Dowling MD 05/02/22 Final result Normal [facility] Comment on above: Order Comment: Reaso n for exam:->Indigestion What reading provider will be dictating this exam?->CRC CBC Auto DifferentialOrdered By: Win Narvaez on 03-27-2021 Basophils (Bld) [#/Vol] 0.05 10*3/uL [employer] Phone: Basophils/100 WBC (Bld) 0.5 % 0.0 - 2.0 % [employer] Phone: Eosinophils Absolute 0.37 [employer] Phone: Eosinophils/100 WBC (Bld) 3.8 % 0.0 - 6.0 % [employer] Phone: Hematocrit (Bld) [Volume fraction] 39.5 % 34.0 - 48.0 % [employer] Phone: Hemoglobin.gastrointes tinal spec 1 Ql (Stl) 12.6 g/dL 11.5 - 15.5 g/dL [employer] Phone: Immature Granulocytes # 0.18 E9/L [employer] Phone: Immature granulocytes/100 WBC (Bld) 1.8 % 0.0 - 5.0 % [employer] Phone: Interpretation and review of laboratory results Abnormal [employer] Phone: Lymphocytes Absolute 3.73 [employer] Phone: Lymphocytes/100 WBC (Bld) 38.2 % 20.0 - 42.0 % [employer] Phone: MCH (RBC) [Entitic mass] 28.9 pg 26.0 - 35.0 pg [employer] Phone: MCHC (RBC) [Mass/Vol] 31.9 % Low 32.0 - 34.5 % [employer] Phone: MCV (RBC) [Entitic vol] 90.6 fL 80.0 - 99.9 fL [employer] Phone: Monocytes Absolute 0.46 [employer] Phone: Monocytes/100 WBC (Bld) 4.7 % 2.0 - 12.0 % [employer] Phone: Neutrophils Absolute 4.97 [employer] Phone: Neutrophils/100 WBC (Bld) 51.0 % 43.0 - 80.0 % [employer] Phone: Platelet distribution width (Bld) [Ratio] 13.3 fL 11.5 - 15.0 fL [employer] Phone: Platelet mean volume (Bld) [Entitic vol] 9.7 fL 7.0 - 12.0 fL [employer] Phone: Platelets (Bld) [#/Vol] 281 10*3/uL [employer] Phone: RBC (Bld) [#/Vol] 4.36 10*6/uL [employer] Phone: WBC (Bld) [#/Vol] 9.8 10*3/uL [employer] Phone: Comprehensive Metabolic Pane l w/ Reflex to MGOrdered By: Win Narvaez on 03-27-2021 Albumin [Mass/Vol] 4.2 g/dL 3.5 - 5.2 g/dL [employer] Phone: ALP (Bld) [Catalytic activity/Vol] 64 U/L 35 - 104 U/L [employer] Phone: ALT [Catalytic activity/Vol] 19 U/L 0 - 32 U/L [employer] Phone: Anion gap [Moles/Vol] 12 mmol/L 7 - 16 mmol/L [employer] Phone: AST [Catalytic activity/Vol] 14 U/L 0 - 31 U/L [employer] Phone: Bilirubin [Mass/Vol] mg/dL 0.0 - 1 .2 mg/dL [employer] Phone: Calcium [Mass/Vol] 9.1 mg/dL 8.6 - 10. 2 mg/dL [employer] Phone: Chloride [Moles/Vol] 103 mmol/L 98 - 10 7 mmol/L [employer] Phone: CO2 [Moles/Vol] 22 mmol/L 22 - 29 mmol/L [employer] Phone: Creatinine [Mass/Vol] 0.5 mg/dL 0.5 - 1.0 mg/dL [employer] Phone: Free PSA/Total PSA [Mass fraction] 7.1 g/dL 6.4 - 8.3 g/dL [employer] Phone: GFR >60 [employer] Phone: GFR Non- >60 >=60 mL/min/1.73 [employer] Phone: Comment on above: Chronic Kidney Disea se: less than 60 ml/min/1.73 sq.m. Kidney Failure: less than 15 ml/min/1.73 sq.m. Results valid for patients 18 years and older. Glucose [Mass/Vol] 107 mg/dL High 74 - 99 mg/dL [employer] Phone: Interpretation and review of laboratory results Abnormal [employer] Phone: Potassium [Moles/Vol] 4.2 mmol/L 3.5 - 5.0 mmol/L [employer] Phone: Sodium [Moles/Vol] 137 mmol/L 132 - 146 mmol/L [employer] Phone: Urea nitrogen (BldV) [Mass/Vol] 9 mg/dL 6 - 20 mg/dL [employer] Phone: [employer] Phone: Microscopic UrinalysisOrdere d By: Win Narvaez on 03-27-2021 Bacteria, UA FEW Abnormal None Seen /HPF [employer] Phone: Epithelial Cells, UA FEW /HPF [employer] Phone: Interpretation and review of laboratory results Abnormal [employer] Phone: RBC, UA 2-5 [employer] Phone: WBC, UA 0-1 [employer] Phone: [employer] Phone: No Panel InformationOrdered By: Win Narvaez on 03-27-2021 [employer] Phone: POC Urine QualOrde red By: Win Narvaez on 03-27-2021 Beta HCG ( test) Ql (U) Negative Negative [employer] Phone: Beta HCG ( test) Ql (U) [id number] [employer] Phone: Negative QC Pass/Fail Pass [employer] Phone: Positive QC Pass/Fail Pass [employer] Phone: US PELVIS COMPLETEOrdered By : Tien Oneal on 03-27-2021 The bilateral ovaries are mildly enlarged, right greater than left. Otherwise, unremarkable pelvic ultrasound. [employer] Phone: EXAMINATION: PELVIC ULTRASOUND 03/27/2021 TECHNIQUE: Multiple [...] Free Fluid: No evidence of free fluid. [employer] Phone: Antonio, Mhy Incoming Radiant Results From [employer] - 03/27/2021 3:01 PM EDT EXAMINATION: PELVIC [...] greater than left. Otherwise, unremarkable pelvic ultrasound. [facility] [employer] Work Phone: [facility] Work Phone: UrinalysisOrdered By: Win Narvaez on 03-27-2021 Bilirubin Urine Negative Negative [facility] Work Phone: Blood, Urine LARGE Abnormal Negative [facility] Work Phone: Clarity, UA Clear Clear [facility] Work Phone: Color, UA Yellow Straw/Yellow [facility] [employer] Work Phone: Glucose, Ur Negative Negative mg/dL [facility] Work Phone: Interpretation and review of laboratory results Abnormal [facility] [employer] Work Phone: Ketones Ql (U) Negative Negative mg/dL [facility] Work Phone: Leukocyte esterase Test strip Ql (U) Negative Negative [facility] Work Phone: Nitrite, Urine Negative Negative [facility] Work Phone: pH, UA 5.0 [facility] [employer] Work Phone: Protein, UA TRACE Negative mg/dL [facility] Work Phone: Specific [place], UA >=1.030 [facility] [employer] Work Phone: Urobilinogen, Urine 0.2 <2.0 E.U./dL [facility] Work Phone: [facility] Work Phone: NOSE/THROAT CULTUREon 2020 NOSE/THROAT CULTURE RUN DATE: 07/10/20 Laboratory LIVE PAGE 1 RUN TIME: 951 Specimen Inquiry RUN USER: INTERFACE [facility] Department of Laboratories [address] [place], [place] [id number] PATIENT: BATOOL KINGSLEY LOC: BHARGAVIEUGENIEGILMER U #: [id number] HOME PHONE: DAVID/SX: ROOM: RE07/08/[address]: Ameena Corcoran APRN.BULK RECEIVER : 99 BED: DIS: STATUS: REG REF LAB O/S: Specimen: [id number] Collected: 07/08/20 Status: COMP Req#: [id number] Received: 07/08/20 Source: THROAT Sp Desc: Subm Dr: Ameena Corcoran APRN.CNP Ordered: NOSE/THRT CULT Procedure Result Verified > NOSE/THROAT CULTURE Final 07/10/20-951 HEAVY GROWTH OF NORMAL ARIN END OF REPORT Normal [facility] Comment on above: Performed By: #### C ULTNT #### [facility] [address] [address] Vital Signs Date Time Vital Sign Value Performing Clinician Ingrid claudio 10-30-2022 08:56-0400 SaO2% (BldA) [Mass fraction] 97 % Deric Florence MD Work Phone: [facility] 10-30-2022 05:00-0400 Body temperature 97.9 [degF] Deric Florence MD Work Phone: [facility] 10-30-2022 05:00-0400 Diastolic blood pressure 74 mm[Hg] Deric Florence MD Work Phone: [facility] 10-30-2022 05:00-0400 Heart rate 74 /min Deric Florence MD Work Phone: [facility] 10-30-2022 05:00-0400 Respiratory rate 18 /min Deric Florence MD Work Phone: [facility] 10-30-2022 05:00-0400 Systolic blood pressure 126 mm[Hg] Deric Florence MD Work Phone: [facility] [employer] 10-29-2022 06:50-0400 Body height 170.2 cm Deric Florence MD Work Phone: [facility] [employer] 10-29-2022 06:50-0400 Body mass index (BMI) [Ratio] 55.6 kg/m2 Deric Florence MD Work Phone: [facility] [employer] 10-29-2022 06:50-0400 Body weight 161.03 kg Deric Florence MD Work Phone: [facility] [employer] 10-24-2022 12:17-0400 Body height 170.2 cm Sjwz 2 [facility] [employer] 10-24-2022 12:17-0400 Body mass index (BMI) [Ratio] 55.44 kg/m2 Sjwz 2 [facility] [employer] 10-24-2022 12:17-0400 Body temperature 98.01 [degF] Sjwz 2 [facility] [employer] RACHAEL [employer] 10-24-2022 12:17-0400 Body weight 160.57 kg Sjwz 2 [employer] 10-24-2022 12:17-0400 Diastolic blood pressure 62 mm[Hg] Sjwz 2 [facility] [employer] 10-24-2022 12:17-0400 Heart rate 77 /min Sjwz 2 [facility] [employer] 10-24-2022 12:17-0400 Respiratory rate 16 /min Sjwz 2 [facility] [employer] 10-24-2022 12:17-0400 SaO2% (BldA) [Mass fraction] 95 % Sjwz 2 [facility] [employer] 10-24-2022 12:17-0400 Systolic blood pressure 117 mm[Hg] Sjwz 2 [facility] [employer] 05-04-2022 08:55-0400 Body temperature 98.29 [degF] Deric Florence MD Work Phone: [facility] [employer] 05-04-2022 08:55-0400 Diastolic blood pressure 68 mm[Hg] Deric Florence MD Work Phone: [facility] [employer] 05-04-2022 08:55-0400 Heart rate 83 /min Deric Florence MD Work Phone: [facility] 05-04-2022 08:55-0400 Respiratory rate 16 /min Deric Florence MD Work Phone: [facility] [employer] 05-04-2022 08:55-0400 SaO2% (BldA) [Mass fraction] 92 % Deric Florence MD Work Phone: [facility] 05-04-2022 08:55-0400 Systolic blood pressure 128 mm[Hg] Deric Florence MD Work Phone: [facility] 05-04-2022 07:06-0400 Body height 170.2 cm Deric Florence MD Work Phone: [facility] [employer] 05-04-2022 07:06-0400 Body mass index (BMI) [Ratio] 61.21 kg/m2 Deric Florence MD Work Phone: [facility] 05-04-2022 07:06-0400 Body weight 177.27 kg Deric Florence MD Work Phone: [facility] 03-27-2021 20:08-0400 Heart rate 95 /min Tien Oneal DO Work Phone: [employer] Work Phone: 03-27-2021 13:47-0400 Body height 170.2 cm Tien Oneal DO Work Phone: [employer] Work Phone: 03-27-2021 13:47-0400 Body mass index (BMI) [Ratio] 54.82 kg/m2 Tien Oneal DO Work Phone: [employer] Work Phone: 03-27-2021 13:47-0400 Body temperature 97.11 [degF] Tien Oneal DO Work Phone: [employer] Work Phone: 03-27-2021 13:47-0400 Body weight 158.76 kg Tien Oneal [employer] Work Phone: [employer] Phone: 03-27-2021 13:47-0400 Diastolic blood pressure 80 mm[Hg] Tien Oneal [employer] Work Phone: [employer] Phone: 03-27-2021 13:47-0400 Respiratory rate 16 /min Tien Oneal [employer] Work Phone: [employer] Phone: 03-27-2021 13:47-0400 SaO2% (BldA) [Mass fraction] 98 % Tien Oneal [employer] Work Phone: [employer] Phone: 03-27-2021 13:47-0400 Systolic blood pressure 173 mm[Hg] Tien Oneal [employer] Work Phone: [employer] Phone: Encounters Encounter Date Encounter Type Care Provider Facility Start: 03-17-2024 End: 03-17-2024 ambulatory KENDRA MURPHY [facility] Start: 03-09-2024 End: 03-09-2024 ambulatory STEPHANIE BRETT Not Available Start: 02-17-2024 End: 02-17-2024 ambulatory STEPHANIE R BRETT [facility] Start: 02-10-2024 End: 02-10-2024 ambulatory STEPHANIE BRETT Not Available Start: 01-07-2024 End: 01-07-2024 ambulatory STEPHANIE BRETT Not Available Start: 12-12-2023 End: 12-12-2023 ambulatory STEPHANIE BRETT Not Available Start: 11-10-2023 End: 11-10-2023 Emergency department patient visit NO PCP NO PCP [facility] Start: 08-14-2023 End: 08-14-2023 Emergency department patient visit TRAVIS VALLEJO [facility] Start: 12-14-2022 ambulatory KAELA FRENCH Facility:[facility] Start: 12-03-2022 ambulatory [facility] Facility:[facility] Start: 11-06-2022 ambulatory [facility] Facility:[facility] Start: 10-29-2022 End: 10-30-2022 Evaluation and management of inpatient [facility] Start: 10-29-2022 End: 10-30-2022 Evaluation and management of inpatient Deric Florence MD Work Phone: [facility] 3 MED SURG Comment on above: Post-operative state (Primary Dx); Morbid obesity (HCC) Start: 10-24-2022 End: 10-25-2022 ambulatory [facility] Start: 10-24-2022 Encounter for other preprocedural examination [facility] Start: 10-24-2022 End: 10-24-2022 Patient encounter status Sjwz 2 [facility] PRE ADMIT TESTING Start: 10-24-2022 End: 10-24-2022 Subsequent hospital visit by physician Hans Pat Room 2 [facility] PRE ADMIT TESTING Comment on above: Preop testing (Prima ry Dx); Malnutrition following gastrointestinal surgery Start: 10-04-2022 ambulatory [facility] Facility:[facility] Start: 08-13-2022 ambulatory [facility] Facility:[facility] Start: 07-31-2022 ambulatory [facility] Facility:[facility] Start: 07-13-2022 ambulatory [facility] Facility:[facility] Start: 06-14-2022 ambulatory [facility] Facility:[facility] Start: 05-04-2022 End: 05-04-2022 ambulatory [facility] Start: 05-04-2022 End: 05-04-2022 Subsequent hospital visit by physician Deric Florence MD Work Phone: [facility] ENDOSCOPY Comment on above: Morbid obesity due t o excess calories (HCC); Gastroesophageal reflux disease Start: 05-02-2022 End: 05-05-2022 ambulatory DERIC FLORENCE [facility] Start: 03-27-2021 End: 03-27-2021 Emergency department patient visit Tien Judd Jonodylan DO Work Phone: [facility] Emergency Department Comment on above: DUB [...] End: 10-30-2022 Basic metabolic panel calcium total Yangjean-paul Hsu OFFICE DIRECTOR - BULK RECEIVER Work Phone: Start: 10-30-2022 Lipid panel Yangjean-paul Ferguson OFFICE DIRECTOR - BULK RECEIVER Work Phone: Start: 10-30-2022 Gluc bld gluc [...] Start: 10-29-2022 Urine test visual color cmprsn john Monique MD Work Phone: Start: 10-29-2022 NOTIFY PHYSICIAN (SPECIFY) KAELA EILEEN Start: 10-29-2022 REASON FOR NOT SELEC TING BASAL INSULIN KAELA EILEEN Start: 10-29-2022 ENCOURAGE DEEP BREAT MADDI AND COUGHING KAELA EILEEN Start: 10-29-2022 IP CONSULT TO HOSPITALIST KAELA SOTOSE Start: 10-29-2022 AMBULATE PATIENT KAELA Roland EASE Start: 10-29-2022 BARIATRIC DIET KAELA PEA SE Start: 10-29-2022 INCENTIVE SPIROMETRY RT KAELA EILEEN Start: 10-29-2022 VITAL SIGNS KAELA EILEEN Start: 10-29-2022 Hemoglobin glycosylated a1c Yang Orta CNP Work Phone: Start: 10-29-2022 Gluc bld gluc [...] KAELA EILEEN Start: 05-04-2022 DISCHARGE PATIENT KAELA FRENCH Start: 05-04-2022 Level iv surg pathol ogy gross&microscopic exam KAELA FRENCH Start: 05-04-2022 DIAGNOSIS FOR PROCEDURE KAELA FRENCH Start: 05-04-2022 DIET NPO KAELA FRENCH Start: 05-04-2022 FULL CODE KAELA FRENCH Start: 05-04-2022 NOTIFY PHYSICIAN (SPECIFY) KAELA FRENCH Start: 05-04-2022 PROCEDURE CONSENT KAELA FRENCH Start: 05-04-2022 VERIFY INFORMED CONSENT KAELA FRENCH Start: 05-04-2022 VITAL SIGNS KAELA FRENCH Start: 05-04-2022 Gluc bld gluc mntr d ev cleared fda spec home use Unknown Provider Result Start: 05-04-2022 End: 05-04-2022 Comprehensive metabolic panel Deric Florence MD Work Phone: Start: 05-02-2022 Us abdominal real ti me w/image limited DERIC FLORENCE Start: 03-27-2021 Blood count complete auto&auto difrntl wbc Win [facility] Work Phone: Start: 03-27-2021 Urinalysis microscopic only Win Narvaez PA-C Work Phone: Start: 03-27-2021 End: 03-27-2021 Urnls dip stick/tablet rgnt auto w/o microscopy Win [facility] Work Phone: Start: 03-27-2021 Us pelvic nonobstetr ic real-time image complete Tien Oneal DO Work Phone: Plan of Treatment Date Care Activity Detail Author Start: 10-31-2023 GFR test (Diabetes, CKD 3-4, OR last GFR 15) GFR test (Diabetes, CKD 3-4, OR last GFR 1559) [facility] Start: 10-31-2023 Lipid panel Lipids [facility] Start: 10-30-2023 Hemoglobin A1c measurement A1C test (Diabetic or Prediabetic) [facility] Start: 10-25-2023 GFR test (Diabetes, CKD 3-4, OR last GFR 1559) GFR test (Diabetes, CKD 3-4, OR last GFR 15-59) [facility] Start: 05-04-2023 Hemoglobin A1c measurement A1C test (Diabetic or Prediabetic) [facility] Start: 05-04-2023 Lipid panel Lipids [facility] Start: 01-29-2023 Influenza vaccination Flu vaccine (Season Ended) [facility] Start: 11-14-2022 End: 11-14-2022 Patient encounter procedure 11/14/2022 Office Visit Bariatrics Deric Florence MD [address] [place] [address] [facility] Start: 10-29-2022 End: 10-29-2022 Admission to same day surgery center 10/29/2022 Surgery IP Unit Deric Florence MD [address] [place] [address] GASTRIC BYPASS NUNO-EN-Y LAPAROSCOPICNEEDS IV TEAM HANS [place] Comment on above: GASTRIC BYPASS NUNO-EN-Y LAPAROSCOPICN EEDS IV TEAM Start: 10-29-2022 End: 10-29-2022 Laps gstr rstcv px w/byp nuno-en-y limb <150 cm GASTRIC BYPASS NUNO-EN-Y LAPAROSCOPIC Morbid obesity (HCC) 10/29/2022 9:00 AM EDT [facility] Start: 10-29-2022 Subsequent hospital visit by physician 10/29/2022 Hospital Encounter IP Unit Deric Florence MD [address] [place] [address] [facility] Start: 05-11-2022 End: 05-11-2022 Patient encounter procedure [facility] Start: 05-04-2022 End: 05-04-2022 Egd transoral biopsy single/multiple EGD ESOPHAGOGASTRODUODENOSCOPY Gastroesophageal reflux disease 05/04/2022 8:18 AM EDT [facility] Start: 01-29-2022 Influenza vaccination Flu vaccine (#1) [facility] Start: 03-01-2021 Influenza vaccination Flu vaccine (#1) [facility] [employer] Work Phone: Start: 01-22-2020 Screening for malignant neoplasm of cervix Pap smear [facility] Start: 09-23-2019 Hepatitis B vaccine (3 of 3 - Risk 3-dose series) Hepatitis B vaccine (3 of 3 - Risk 3-dose series) [facility] Start: 2018 DTaP/Tdap/Td vaccine (1 - Tdap) DTaP/Tdap/Td vaccine (1 - Tdap) [facility] Start: 2017 Glaucoma screening Diabetic retinal exam [facility] Start: 2017 Hepatitis C screening Hepatitis C screen [facility] Start: 2017 Urine screening for protein Diabetic Alb to Cr ratio (uACR) test [facility] Start: 2015 Screening for Chlamydia trachomatis [facility] Start: 2014 HIV screening HIV screen [facility] Start: 2011 COVID-19 Vaccine (1) COVID-19 Vaccine (1) [facility] [employer] Phone: Start: 2011 Depression Monitoring Depression Monitoring [facility] Start: 2011 Depression Screen Depression Screen [facility] Start: 2010 HPV vaccine (1 - 2-dose series) HPV vaccine (1 - 2-dose series) [facility] Start: 2009 Diabetic foot examination Diabetic foot exam [facility] Start: 2005 Pneumococcal 0-64 years Vaccine (1 - PCV) Pneumococcal 0-64 years Vaccine (1 - PCV) [facility] Start: 01-22-2000 Varicella vaccine (1 of 2 - 2-dose childhood series) Varicella vaccine (1 of 2 - 2-dose childhood series) [facility] Start: 1999 COVID-19 Vaccine (#1) COVID-19 Vaccine (#1) [facility] Start: 1999 Hepatitis C screening Hepatitis C screen [employer] Phone: End: 10-29-2023 Basic metabolic 2000 panel - Serum or Plasma Basic Metabolic Panel Lab Routine Daily for 365 Days starting 10/30/2022 until 10/29/2023, 1 completed [facility] Phone: Comment on above: Daily for 365 Days starting 10/30/2022 u ntil 10/29/2023, 1 completed End: 10-29-2023 CBC W Auto Differential panel - Blood CBC with Auto Differential Lab Routine Daily for 365 Days starting 10/30/2022 until 10/29/2023, 1 completed [facility] Phone: Comment on above: Daily for 365 Days starting 10/30/2022 u ntil 10/29/2023, 1 completed End: 03-27-2021 Culture, Urine Culture, Urine Microbiology Routine One Time for 1 Occurrences starting 03/27/2021 until 03/27/2021 [employer] Phone: Comment on above: One Time for 1 Occurrences starting 03/02 until 03/27/2021 End: 05-04-2022 Cyanocobalamin vitamin b-12 [facility] Phone: Comment on above: 1 Occurrences starting 05/04/2022 until 05/04/2022 End: 05-04-2022 Ferritin [Mass/volume] in Serum or Plasma [facility] Phone: Comment on above: 1 Occurrences starting 05/04/2022 until 05/04/2022 End: 05-04-2022 Folate [facility] Phone: Comment on above: 1 Occurrences starting 05/04/2022 until 05/04/2022 Glucose [Mass/volume ] in Serum or Plasma [facility] Phone: Comment on above: 4X Daily (AC & HS) until discontinued st arting 10/29/2022 As Needed until disc ontinued starting 10/29/2022 End: 05-04-2022 Hemoglobin A1c/Hemoglobin.total in Blood [facility] Phone: Comment on above: 1 Occurrences starting 05/04/2022 until 05/04/2022 End: 10-30-2022 Hemoglobin A1c/Hemoglobin.total in Blood Hemoglobin A1C Lab Routine Tomorrow AM for 1 Occurrences starting 10/30/2022 until 10/30/2022 [facility] Phone: Comment on above: Tomorrow AM for 1 Occurrences starting 0 10/30/2022 until 10/30/2022 Hemoglobin A1c/Hemoglobin.total in Blood Hemoglobin A1C Lab Routine 10/30/2022 4:51 AM EDT [facility] Phone: End: 10-29-2023 Hepatic function 2000 panel - Serum or Plasma Hepatic Function Panel Lab Routine Daily for 365 Days starting 10/30/2022 until 10/29/2023, 1 completed [facility] Phone: Comment on above: Daily for 365 Days starting 10/30/2022 u ntil 10/29/2023, 1 completed End: 10-29-2023 Magnesium [Mass/volume] in Serum or Plasma Magnesium Lab Routine Daily for 365 Days starting 10/30/2022 until 10/29/2023, 1 completed [facility] Phone: Comment on above: Daily for 365 Days starting 10/30/2022 u ntil 10/29/2023, 1 completed Nasal Cannula Oxygen Nasal Cannu la Oxygen Respiratory Care Routine Daily until discontinued starting 10/30/2022 [employer] Phone: Comment on above: Daily until discontinued starting 2022 Oxygen therapy [Minimum Data Set] Initiate Oxygen Therapy Protocol Respiratory Care Routine As Needed until discontinued starting 10/29/2022 [facility] Phone: Comment on above: As Needed until discontinued starting End: 10-29-2023 Phosphate [Mass/volume] in Serum or Plasma Phosphorus Lab Routine Daily for 365 Days starting 10/30/2022 until 10/29/2023, 1 completed [facility] Phone: Comment on above: Daily for 365 Days starting 10/30/2022 u ntil 10/29/2023, 1 completed End: 05-04-2022 Prealbumin [Mass/volume] in Serum or Plasma [facility] Phone: Comment on above: 1 Occurrences starting 05/04/2022 until 05/04/2022 End: 10-29-2022 Spirometry panel [facility] Phone: Comment on above: Continuous until discontinued starting 0 10/29/2022 Every 2hr while awak e until discontinued starting 10/29/2022 Surgical Pathology Surgical Path ology Lab Routine Gastroesophageal reflux disease Release Upon Ordering for 1 Occurrences starting 05/04/2022 [facility] Phone: Comment on above: Release Upon Ordering for 1 Occurrences starting 05/04/2022 Surgical Pathology Surgical Path ology Lab Routine Morbid obesity (HCC) Release Upon Ordering for 1 Occurrences starting 10/29/2022 [employer] Phone: Comment on above: Release Upon Ordering for 1 Occurrences starting 10/29/2022 End: 05-04-2022 Vitamin B1 Vitamin B1 Lab Routine Morbi d obesity due to excess calories (HCC) 1 Occurrences starting 05/04/2022 until 05/04/2022 [facility] Phone: Comment on above: 1 Occurrences starting 05/04/2022 until 05/04/2022 End: 05-04-2022 Zinc Zinc Lab Routine Morbid obes ity due to excess calories (HCC) 1 Occurrences starting 05/04/2022 until 05/04/2022 [facility] Phone: Comment on above: 1 Occurrences starting 05/04/2022 until 05/04/2022 Immunizations Immunization Date Immunization Notes Care Provider Lito enriquez 10-24-2020 tuberculin skin test ; purified protein derivative solution, intradermal Sjwz 2 [facility] Phone: 05-25-2019 hepatitis B vaccine, adult dosage Sjwz 2 [facility] Phone: 04-01-2019 hepatitis B vaccine, adult dosage Sjwz 2 [facility] Phone: 04-01-2019 meningococcal B vacc ine, recombinant, OMV, adjuvanted Sjwz 2 [facility] Phone: 04-01-2019 tuberculin skin test ; purified protein derivative solution, intradermal Sjwz 2 [facility] Phone: Payers Date Payer Category Payer Private Health Insurance [id number] 2020 Private Health Insurance [id number] 1999 Unknown [id number] 2.16. 840.1.924696.3.579.2.204 1999 Unknown [id number] 2.16. 840.1.925086.3.579.2.204 1999 Unknown [id number] 2.16. 840.1.854346.3.579.2.204 1999 Unknown [id number] 2.16. 840.1.250729.3.579.2.204 1999 Unknown [id number] 2.16.8 40.1.559292.3.579.2.128 1999 Unknown [id number] 2.16.8 40.1.047813.3.579.2.1285 1999 Unknown [id number] 2.16.84 0.1.303029.3.579.2.1259 1999 Unknown [id number] 2.16.84 0.1.628354.3.579.2.1259 1999 Unknown [id number] 2.16.84 0.1.905033.3.579.2.1259 1999 Unknown [id number] 2.16.84 0.1.765015.3.579.2.1259 1999 Unknown [id number] 2.16.8 40.1.321895.3.579.2.1286 1999 Unknown [id number] 2.16.8 40.1.473859.3.579.2.1286 1999 Unknown [id number] 2.16.8 40.1.527518.3.579.2.1286 Unknown [id number] 2.16.8 40.1.581645.3.579.2.212 Unknown [id number] 2.16.8 40.1.166155.3.579.2.212 Unknown [id number] 2.16.8 40.1.925742.3.579.2.212 Unknown [id number] 2.16.8 40.1.567736.3.579.2.212 Unknown [id number] 2.16.8 40.1.519531.3.579.2.212 Unknown [id number] 2.16.8 40.1.989944.3.579.2.212 Unknown [id number] 2.16.8 40.1.774952.3.579.2.212 Unknown [id number] 2.16.8 40.1.476973.3.579.2.212 Unknown [id number] 2.16.8 40.1.544312.3.579.2.212 Social History Date Type Detail Facility Tobacco smoking stat [facility] Unknown if ever smoked [employer] Phone: Start: 1999 Sex Assigned At Not on file [email or web address] Phone: Start: 04-23-2022 End: 05-03-2022 Exposure to SARS-CoV-2 (event) Not sure [facility] [employer] Start: 05-03-2022 End: 10-24-2022 Tobacco smoking status NHIS Ex-smoker [facility] Phone: End: 12-29-2021 History of tobacco use Current smoker [facility] Phone: End: 12-29-2021 History of tobacco use Cigarette Smoker [facility] Phone: Start: 05-03-2022 End: 10-24-2022 Tobacco use and exposure Smokeless tobacco non-user [facility] Phone: Start: 05-04-2022 End: 10-30-2022 Alcohol intake Current drinker of alcohol (finding) [facility] Phone: Start: 05-03-2022 Tobacco Comment Quit 12/2021 [employer] Phone: Start: 05-03-2022 Alcohol Comment occ [employer] Phone: Start: 10-29-2022 History SDOH Alcohol Frequency 1 [facility] Phone: Clinical Notes 05-04-2022 to 10-30-2022 Discharge [...] Dr. Florence's Discharge Instructions for Bariatric Surgery [facility] Discharge Instructions [...] blood sugars as ordered by PCP or Adon. Follow up with PCP or Adon regarding diabetic medications. Make sure you take any medicines you were on for depression or anxiety. FOLLOW-UP Follow-up appointment with surgeon 10-14 days after surgery. Complete lab work prior to this appointment. Follow-up with PCP and/or Adon prior to seeing surgeon. CALL [facility] [phone] IF ANY OF THE FOLLOWING OCCURS TO [...] Weapons (Notify Protective Services/Security): None Other Valuables: [place], Wallet Home Medications: None Valuables Given To: [...] through Care Everywhere.Gastric Bypass Surgery: Nuno-en-Y: Post-op (Maltese)documented in this encounter [facility] Work Phone: 10-30-2022 Hospital course Narrative Physician Discharge Summary Batool Kingsley [id number] Admit date: 10/29/2022 Discharge date and time: [...] Your Medications These medications were sent to [facility] [place] - [address] [phone] - F [phone] [address] [facility] [address] [address] traMADol 50 MG tablet Activity: no lifting, [...] 6:48 AM documented in this encounter [facility] [employer] Work Phone: 10-30-2022 History of Presen t illness Narrative Internal Medicine Progress Note NATHALIE=[facility] Shanta Hernandez D.O., F.A.C.O.I. Christin Mason D.O., F.A.C.O.I. Shabana RdzO. Francine Kilpatrick, MSN, OFFICE DIRECTOR, [employer] CLASSROOM TEACHER-C Yang Hsu, MSN, OFFICE DIRECTOR-BULK RECEIVER Primary Care Physician: KAELA FRENCH APRN - BULK RECEIVER Admitting Physician: Deric Florence MD Admission date and time: 10/29/2022 6:02 AM Room: [address] [place] [address] Admitting diagnosis: Morbid obesity (HCC) [E66.01] Post-operative [...] reflux disease with possible hiatal hernia repair Zwn-ggzodoa-vhnkysmcq diabetes mellitus type 2 Anxiety Plan: Batool [...] 6:37 AM documented in this encounter [facility] [email or web address] Phone: 10-24-2022 History of Presen t illness Narrative Images from the original note were not included. [facility] PRE OP INSTRUCTIONS FOR Batool Kingsley [...] makeup (including no eye makeup) or nail greenlandic on your fingers or toes. DO NOT wear any jewelry or piercings on day of surgery. All body piercing jewelry must be removed. Shower the night before surgery with _x__Antibacterial soap /CHG WIPES___x If you have a Living Will and Durable Power of Ice Bag Assembler for Healthcare, please bring in a copy. [...] and go to information desk Please call SENIOR ANDROID DEVELOPER if you have any further questions. Pre Admit Testing [phone] [facility] [phone] documented in this encounter [facility] [email or web address] Phone: 05-04-2022 Hospital Discharg e instructions Ashlie [...] the day after the test, use an vqwn-oup-osxruxt spray to numb your throat. Follow-up care [...] Where can you learn more? Go to [email or web address] and sign in to your [employer] account. Enter J454 in the Search Health Information box to learn more about Upper GI Endoscopy: What to Expect at Home. If you do not have an account, please click on the Sign Up Now link. Current as of: December 04, 2021 Content Version: 13.4 [employer] Care instructions adapted under license by [employer]. If you have questions about a medical condition or this instruction, always ask your healthcare professional. [employer] disclaims any warranty or liability for your use of this information. documented in this encounter [facility] [employer] Work Phone: 05-04-2022 History of Presen t illness Narrative SBAR form completed and placed on chart. Chart with patient in transit. Images from the original note were not included. [facility] PRE OP INSTRUCTIONS FOR Batool Kingsley [...] makeup (including no eye makeup) or nail greenlandic on your fingers or toes. DO NOT wear any jewelry or piercings on day of surgery. All body piercing jewelry must be removed. Shower the night before surgery with _x__Antibacterial soap /ALEXANDER WIPES TOTAL JOINT REPLACEMENT/HYSTERECTOMY PATIENTS ONLY---Remember to bring Blood Bank bracelet to the hospital on the day of surgery. If you have a Living Will and Durable Power of Ice Bag Assembler for Healthcare, please bring in a copy. [...] safety of all patients. Other Please call SENIOR ANDROID DEVELOPER if you have any further questions. Pre Admit Testing [phone] [facility] [phone] documented in this encounter [employer] Phone: Evaluation note Diagnosis DUB (dysfunctional uterine bleeding)- Primary Other disorder of menstruation and other abnormal bleeding from female genital tract documented in this encounter [employer] Phone: evaluation note* Diagnosis Gastroesophageal reflux disease- Primary Esophageal reflux Morbid obesity due to excess calories (HCC) documented in this encounter [employer] Phone: evaluation note* Diagnosis Morbid obesity (HCC)- Primary Morbid obesity Preop testing- Primary Preoperative examination, unspecified 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 * AUB (Abnormal Uterine Bleeding) (Maltese) [facility] Work Phone: Summary Purpose Family History No Family [...] section and content) DATE CREATED AUTHOR 07/16/2020 [facility] DATE CREATED AUTHOR AUTHOR'S ORGANIZ ATION 05/05/2022 [facility] DATE CREATED AUTHOR AUTHOR'S ORGANIZ ATION 02/07/2023 [facility] DATE CREATED AUTHOR AUTHOR'S ORGANIZ ATION 06/04/2023 [facility] DATE CREATED AUTHOR AUTHOR'S ORGANIZ ATION 02/19/2024 [facility] DATE CREATED AUTHOR AUTHOR'S ORGANIZ ATION 03/10/2024 [facility] DATE CREATED AUTHOR AUTHOR'S ORGANIZ ATION 03/19/2024 [facility] Reason for Visit (unrecogniz ed section and content) Reason Comments Vaginal Bleeding 4 pad per hour, larg e clots present Specialty Diagnoses / Procedures Referred By Geronimo reardon Referred To Contact Diagnoses Gastroesophageal reflux disease Gastroesophageal reflux disease [K21.9] Procedures [place] EGD TRANSORAL BIOPSY SINGLE/MULTIPLE NH EGD TRANSORAL BIOPSY SINGLE/MULTIPLE NH ESOPHAGOGASTRODUODENOSCOPY TRANSORAL DIAGNOSTIC NH EGD BALLOON DILATION ESOPHAGUS <30 MM DIAM EGD ESOPHAGOGASTRODUODENOSCOPY Deric Florence MD [address] [place] [address] [facility] [address] [place] [address] Referral ID Status Reason Start Date Expiration Date Visits Re quested Visits Authorized [id number] 1 1 Specialty Diagnoses / Procedures Referred By Geronimo reardon Referred To Contact Diagnoses Morbid obesity (HCC) Morbid obesity (HCC) [E66.01] Procedures NH LAPS GSTR RSTCV PX W/BYP NUNO-EN-Y LIMB <150 CM GASTRIC BYPASS NUNO-EN-Y LAPAROSCOPIC Deric Florence MD [address] [place] [address] [facility] [address] [place] [address] Referral ID Status Reason Start Date Expiration Date Visits Re quested Visits Authorized [id number] 1 1 Continuous Active and Recently Administ [...] 100 mL IVPB (COMPLETED) 3,000 mg, IntraVENous, THEATRICAL AGENT TO O.R., 1 dose, On Sat10/29/22 at 0715, Antimicrobial Indications: Surgical Prophylaxis, Administer within 1 hour prior to incision. Repeat in 3-4 hours after initial dose if still intra-op., Pre-op (day of surgery) 0844 (Given - Provider: Maggie Avila APRN - REEL AND REWINDER OPERATOR) insulin lispro (HUMALOG) injection vial 0-4 [...] on Sat10/29/22 at 1215, Last dose on [place] 11/01/22 at 0615, Do not administer for more [...] 1015 0951 (Given - Provider: Khushi Hebert, MELANIA) ondansetron (ZOFRAN) injection 4 mg (COMPLETED) [...] of order., Post-op bupivacaine-EPINEPHrine PF (MARCAINE-w/EPINEPHrine) 0.25% -[id number] injection (CANCELED) PRN, Starting on Sat10/29/22 at [...] Khushi Hebert RN)1055 (Given - Provider: Khushi Hebert, MELANIA) HYDROmorphone [...] only 1000 (Given - Provider: Khushi Hebert, MELANIA)1010 (Given - Provider: Khushi Hebert, MELANIA) magnesium [...] 2030 (Given - Provider: Jennifer Huff, RN) 0356 (Given - Provider: Isak Bradshaw, [...] 2030 (See Alternative - Provider: Jennifer Huff, RN) 0356 (See Alternative - Provider: Isak Bradshaw, RN)0856 (Given - Provider: Helen Bradford, MELANIA) ondansetron [...] PACU only 1048 (Given - Provider: Khushi Hebert, MELANIA) sodium chloride flush 0.9 % injection 5-40 [...]
Care Teams (unrecognized sec tion and content) Activity Aid Relationship Specialty Start Date End Date [facility] [address] [place] [address] PCP - General Certified Nurse Practitioner 04/27/22 Activity Aid Relationship Specialty Start Date End Date [facility] [address] [place] [address] PCP - General Certified Nurse Practitioner 09/14/22 Activity Aid Relationship Specialty Start Date End Date [facility] [address] [place] [address] PCP - General Certified Nurse Practitioner 09/14/22 [...] BE BASED ON THE PRIMARY CLINICAL RECORDS. [facility] [employer] [facility]. provides no warranty or guarantee of the accuracy or completeness of information in this document.
== END 2024-04-07 15:42 | disposition home or self-care (01) ==
LOC: US 15:41
PROVIDERS: Visit Provider Physician Assistant
DX: O24.419 Gestational diabetes mellitus in pregnancy, unspecified control (principal); O99.012 Anemia complicating pregnancy, second trimester; Z3A.27 27 weeks gestation of pregnancy
CPT/HCPCS: 76816

== ENCOUNTER 2024-04-21 15:52 | Outpatient (OUT) | payer OTHER, SELFPAY ==
--- OUTSIDE RECORDS SUMMARY | 2024-04-21 16:01 | XMS_ITS | CCD ---
Author Organization [facility] Care Team Providers Care It Systems Manager Name Role Phone Unavailable Primary Care Provider Unavailabl e Eileen CIGARETTE ROLLER - SHERIE, Kaela Primary Care Provider [phone] DERIC FLORENCE Referring Unavailable EILEEN, KAELA Primary Care Unavailable Dunmor CIGARETTE ROLLER - SHERIE, Kaela Primary Care Provider [phone] EILEEN, KAELA Primary Care Unavailable DERIC FLORENCE [...] Attending Unavailable EILEEN, KAELA Primary Care Unavailable EILENE, KAELA Attending Unavailable EILEEN, KAELA Primary Care Unavailable EILEEN, KAELA Primary Care Unavailable GLENNY WELLS Attending Unavailable EILEEN, KAELA Attending Unavailable EILEEN, KAELA Primary Care Unavailable EILEEN, KAELA Attending Unavailable EILEEN, KAELA Primary Care Unavailable EILEEN, KAELA Attending Unavailable EILEEN, KAELA Primary Care Unavailable EILEEN, KAELA Primary Care Unavailable VAHE FLORENCE Attending Unavailable BRETTESE CROCKERY R Referring Unavailable NO PCP, NO PCP Primary Care Unavailable SY REARDON Attending Unavailable BRETT, STEPHANIE R Referring Unavailable NO PCP, NO PCP Primary Care Unavailable NO PCP, NO PCP Primary Care Unavailable KENDRA MURPHY Referring Unavailable NO PCP, NO PCP Primary Care Unavailable TRAVIS VALLEJO Primary Care Unavailable KIERRA SHERWOOD Attending Unavailable BRETT, STEPHANIE Attending Unavailable BRETT, STEPHANIE Attending Unavailable BRETT, STEPHANIE Attending Unavailable Unavailable Primary Care Provider Unavailabl e Medications Current Medications Medication Drug Class(es) Dates Sig (Normalized) Sig (Original) [id number] 200 actuat albuterol 0.09 mg/actuat metered dose inhaler (3 sources) beta2-Adrenergic Agonist Start: 01-11-2023 albuterol HFA 90 mcg/act inhaler 01/11/2023 Active calcium chloride 0.0014 meq/ml / potassium chloride 0.004 meq/ml / sodium chloride 0.103 meq/ml / sodium lactate 0.028 meq/ml injectable solution (3 sources) Start: 10-29-2022 IntraVENous, at 125 mL/hr, CONTINUOUS, Starting on Sat10/29/22 at 1215, Post-op Start: 10-29-2022 End: 10-29-2022 lactated ringers IV soln inf usion Start: 05-04-2022 lactated ringe rs infusion cholecalciferol 0.05 mg oral capsule (6 sources) Vitamin D Start: 09-11-2023 cholecalcifero l (Vitamin D-3) 50 MCG (2000 UT) capsule 1 capsule 1 (one) time each day at the same time 09/11/2023 Active Start: 08-22-2022 GNP VITAMIN D 25 MCG [...] remains LESS THAN 70 mg/dL, notify provider. 1 ml ketorolac tromethamine 15 mg/ml cartridge (1 source) Nonsteroidal Anti-inflammatory Drug, Cyclooxygenase Inhibitor Start: 10-29-2022 End: 11-01-2022 15 mg, IntraVENous, EVERY 6 HOURS, 12 doses, First dose on Sat10/29/22 at 1215, Last dose on Nishi 11/01/22 at 0615 Do not administer for more than 5 days. Post-op 100 ml magnesium sulfate 10 mg/ml injection (1 source) Start: 10-29-2022 take 1000 mg intravenously every hour as needed 1,000 mg, IntraVENous, at 100 mL/hr, Administer over 1 Hours, PRN, Other, Per Magnesium IV Replacement Protocol, Starting on Sat10/29/22 at 1159 Mg Lab &nbs p; Replacement Action 1.4-1.6 & nbsp;1 gram IVPB x 2 doses &n bsp; &nb sp; &nbs p; &nbsp ; (2 gram Total) 1.0-1.3 &nb sp; 1 gram IVPB x 4 doses &n bsp; &nb sp; &nbs p; &nbsp ; (4 gram Total) <1.0&nb sp; &nbs p; & nbsp; CALL PHYSICIAN and & nbsp; &n bsp; &nb sp; &nbs p; &nbsp ; 1 gram IVPB x 4 doses & nbsp;(4 gram Total) I nfuse at 1 gram/hr Repeat Mag level next AM Protocol not for use in Patients with CrCl<30ml/min morphine (PF) injection 2 mg (1 source) Start: 10-29-2022 morphine (PF) injection 2 mg omeprazole 20 mg delayed release oral capsule (1 source) Proton Pump Inhibitor Start: 10-17-2022 End: 10-17-2023 take 1 capsule by mouth once daily omeprazole (PRILOSEC) 20 MG delayed release capsule Indications: Gastroesophageal reflux disease without esophagitis Take 1 capsule by mouth Daily 30 capsule 12 10/17/2022 10/17/2023 Active polysaccharide iron complex 391 mg oral capsule (3 sources) Start: 03-12-2024 End: 06-10-2024 take 1 capsule by mouth once daily iron polysaccharides (ProFe) 391.3 (180 Fe) MG capsule Indications: Anemia affecting in second trimester Take 1 capsule (391.3 mg) by mouth Daily 30 capsule 2 03/12/2024 06/10/2024 Active Potassium Chloride (1 source) Start: 10-29-2022 potassium chloride (KLOR-CON M) extended release tablet 40 mEq Vit-Fe Fumarate-FA ( Plus/Iron) 27-1 MG tablet (3 sources) Start: 12-17-2023 End: 12-16-2024 take 1 tablet by mouth once daily Vit-Fe Fumarate-FA ( Plus/Iron) 27-1 MG tablet Indications: Missed menses Take 1 tablet by mouth Daily 30 tablet 11 12/17/2023 12/16/2024 Active sodium phosphate 25.77 mmol in sodium chloride 0.9 % 250 mL IVPB (1 source) Start: 10-29-2022 sodium phosphate 25.77 mmol in sodium chloride 0.9 % 250 mL IVPB traMADol hydrochloride 50 mg oral tablet (1 source) Opioid Agonist Start: 10-30-2022 End: 11-02-2022 take 1 tablet by mouth every six [...] TRULICITY 3 MG/0.5ML SOPN (2 sources) Start: 08-02-2022 TRULICITY 3 MG/0.5ML SOPN INJECT 1 PEN SUBCUTANEOUS WEEKLY 0 08/02/2022 Active Completed/Discontinued Medications Medication Drug Class(es) Dates Sig (Normalized) Sig (Original) Blood Glucose Monitoring Suppl (D-Care Glucometer) w/Device kit (3 sources) Start: 02-19-2024 End: 04-07-2024 Blood Glucose Monitoring Suppl (D-Care Glucometer) w/Device kit Indications: Gestational diabetes mellitus (GDM), antepartum, gestational diabetes method of control unspecified , Elevated glucose tolerance test 1 kit Daily Use four times daily to check FSBS. In the morning prior to breakfast & 1 hour after each meal for a total of 4times daily. 1 kit 02/19/2024 04/07/2024 Discontinued Start: 02-19-2024 End: 02-18-[address] (D-Care Glucometer) w/Device kit Indications: Gestational diabetes mellitus (GDM), antepartum, gestational diabetes method of control unspecified , Elevated glucose tolerance test 1 kit Daily Use four times daily to check FSBS. In the morning prior to breakfast & 1 hour after each meal for a total of 4times daily. 1 kit 02/19/2024 02/18/2025 Active 0.5 ml dulaglutide 3 mg/ml auto-injector (1 [...] 10-29-2022 HYDROmorphone (DILAUDID) 1 M G/ML injection hydrOXYzine hydrochloride 25 mg oral tablet (6 sources) Antihistamine Start: 09-03-2023 End: 04-07-2024 hydrOXYzine HCl (Atarax) 25 MG tablet every 12 (twelve) hours 09/03/2023 04/07/2024 Discontinued hydrOXYzine pamo ate (VISTARIL) 25 MG capsule 1 capsule as needed 0 Active insulin lispro 100 unt/ml injectable solution (2 [...] Over 349 4 Units and notify physician isopropyl alcohol 0.7 ml/ml medicated pad (3 sources) Start: 02-19-2024 End: 04-07-2024 Alcohol Swabs (Alcohol Prep Pad) 70 % pads Indications: Gestational diabetes mellitus (GDM), antepartum, gestational diabetes method of control unspecified , Elevated glucose tolerance test Apply 1 Pad topically Daily Use four times daily to check FSBS. 150 each 3 02/19/2024 04/07/2024 Discontinued magnesium oxide 400 mg oral tablet (3 sources) Start: 01-20-2024 End: 04-19-2024 take 1 tablet by mouth once daily magnesium oxide (Mag-Ox) 400 MG tablet Indications: headache in second trimester Take 1 tablet (400 mg) by mouth Daily 30 tablet 2 01/20/2024 04/07/2024 Discontinued metFORMIN hydrochloride 100 mg/ml extended release suspension [...] e flush 0.9 % injection 5-40 mL terconazole 4 mg/ml vaginal cream (3 sources) Azole Antifungal Start: 03-31-2024 End: 04-07-2024 terconazole (Terazol 7) 0.4 % vaginal cream Indications: Yeast infection Insert 1 applicator into the vagina at bedtime for 7 days 45 g 03/31/2024 04/07/2024 Discontinued Problems Active Problems Problem Classification Problem Date [...] mellitus without complications] Onset: 2 09-13-2022 Chronic Diabetes or abnormal glucose tolerance complicating ; childbirth; or the puerperium (2 sources) Gestational diabetes mellitus; Translations: [Gestational diabetes mellitus in , unspecified control] 04-07-2024 Episodic Disorders of lipid metabolism (2 sources) Pure [...] 4 Chronic Other complications of (2 sources) Anemia in mother complicating , childbirth AND/OR puerperium; Translations: [Anemia complicating , second trimester] 04-07-2024 Chronic Other complications of (2 sources) Bariatric [...] (BMI) 38.0-38.9, adult] Onset: 4 Chronic Other and delivery including normal (3 sources) Encounter for supervision of normal , unspecified, unspecified trimester; Translations: [Second trimester ] Onset: 4 04-07-2024 Episodic Other screening for suspected conditions (not [...] weeks gestation of ] Onset: 4 Episodic Residual codes; unclassified (2 sources) Gestation period, 27 weeks; Translations: [27 weeks gestation of ] 04-07-2024 Episodic Thyroid disorders (2 sources) Hypothyroidism, unspecified; [...] weight gain] Onset: 03-14-2022 09-13-2022 Episodic Other upper respiratory disease (2 sources) [...] Test Name Value Interpretation Reference Range Facility Urinalysis macro (dipstick) panel (U)on 04-07-2024 Bilirubin, UA Negative Negative - 4(70) +++ mg/dL [facility] Blood, UA Negative Negative - 50 Marcus/mcL [facility] Clarity, [facility] Clear [facility], [facility] Yellow [facility] Glucose, UA Negative Negative - 1999(110) ++++ mg/dL [facility] Interpretation and review of laboratory results Normal [facility] Ketones, UA Negative Negative - 160(16) ++++ mg/dL [facility] Leukocytes, UA Negative Negative - 500+++ Henrique/mcL [facility] Nitrite, UA Negative Negative - Positive [facility] pH, UA 6.5 5 - 9 [facility], [facility] Negative Negative - 1999(20) ++++ mg/dL [facility] Spec Grav, UA 1.025 1 - 1.03 [facility] Urobilinogen, UA 1.0 0.2 - 12 mg/dL [facility] ( test) Ql (U)o n 11-10-2023 Beta HCG ( test) Ql (U) Positive Abnormal NEG [facility] Comment on above: Performed By: #### 2 106-3 #### [facility] ([id number]) [address] [place] [address]358 URN MACROSCOPIC NURon 2023 BILIRUBIN [place] Negative Normal [facility] Comment on above: Performed By: #### N UM #### [facility] ([id number]) [address] [place] [address] 98470 BLOOD/HGB [place] Trace Abnormal NEG [facility] Comment on above: Performed By: #### N UM #### [facility] ([id number]) [address] [place] [address] 88803 GLUCOSE [place] Negative Normal NEG [facility] Comment on above: Performed By: #### N UM #### [facility] ([id number]) [address] [place] [address] 91302 KETONES [place] Trace Abnormal NEG [facility] Comment on above: Performed By: #### N UM #### [facility] ([id number]) [address] [place] [address] 32644 LEUKOCYTE ESTERASE [place] Small Abnormal NEG Pr [facility] Comment on above: Performed By: #### N UM #### [facility] ([id number]) [address] [place] [address] 58780 NITRITE [place] Negative Normal NEG [facility] Comment on above: Performed By: #### N UM #### [facility] ([id number]) [address] [place] [address] 19192 PH [place] 6.0 Normal 5.0-8.5 [facility] Comment on above: Performed By: #### N UM #### [facility] ([id number]) [address] [place] [address] 54839 PROTEIN [place] Negative Normal NEG [facility] Comment on above: Performed By: #### N UM #### [facility] ([id number]) [address] [place] [address] 07549 SPECIFIC GRAVITY [place] 1.025 Normal 1.003-1.035 [facility] Comment on above: Performed By: #### N UM #### [facility] ([id number]) [address] [place] [address] 81017 UROBILINOGEN [place] 2.0 eu/dL High <1.1 [facility] Comment on above: Performed By: #### N UM #### [facility] ([id number]) [address] [place] [address] 93079 SARS/FLU A+B/RSV [facility] SARS/FLU A+B/RSV by NAAT/Molecular FLU A [...] operators who are performing tests using either [employer] or Gorb systems and is limited to laboratories that [...] repeat. Fact Sheet for Healthcare Providers: https://www.fda.gov /media/070880/downl oad Fact Sheet for Patients: https://www.fda.gov /media/053935/downl oad Normal [facility] Comment on above: Performed By: #### C OVFLR #### [facility] ([id number]) [address] [place] [address], [place] [address] VITAMIN B1-THIAMINE WHOLE BL Don 12-20-2022 VITAMIN B1-THIAMINE WHOLE BLD 142.2 nmol/L Normal 66.5-200.0 [facility] Comment on above: Order Comment: FAX R ESULTS TO DR FLORENCE: [phone] Result Comment: This test was developed and its performance characteristics determined by [facility]. It has not been cleared or approved by the Food and Drug Administration. Performed at: [facility] [id number] Purification Operator Helper: Estuardo Michelle MD, Phone: [phone] This test was developed and its performance characteristics determined by [facility]. It has not been cleared or approved by the Food and Drug Administration. Performed By: #### V ITB1, ZINC #### [facility] [address] [place] [address] #### B12, FOL, CMP, PREALB, ANDREZ, CBCD #### [facility] [address] [place] [address] ZINC, PLASMAon 12-18-2022 ZINC, PLASMA 86 ug/dL Normal 44-115 [facility] Comment on above: Order Comment: FAMaximo COLIN TO DR FLORENCE: [phone] Result Comment: This test was developed and its performance characteristics determined by [employer] [facility]. It has not been cleared or approved by the Food and Drug Administration. Detection Limit = 5 Performed at: [facility] [address] [id number] Purification Operator Helper: Estuardo Michelle MD, Phone: [phone] This test was developed and its performance characteristics determined by [facility]. It has not been cleared or approved by the Food and Drug Administration. Performed By: #### V ITB1, ZINC #### [facility] [address] [place] [address] #### B12, FOL, CMP, PREALB, ANDREZ, CBCD #### [facility] [address] [place] [address] CBC with DIFFERENTIALon 11-29 Basophils (Bld) [#/Vol] 0.0 10*3/uL Normal 0.0-0.1 [facility] Comment on above: Order Comment: JENNIFER COLIN TO DR FLORENCE: [phone] Performed By: #### V ITB1, ZINC #### [facility] [address] [place] [address] #### B12, FOL, CMP, PREALB, ANDREZ, CBCD #### [facility] [address] [place] [address] Basophils/100 WBC (Bld) 0.5 % Normal 0.0-1.0 [facility] Comment on above: Order Comment: FAX R ESULTS TO DR FLORENCE: [phone] Performed By: #### V ITB1, ZINC #### [facility] [address] [place] [address] #### B12, FOL, CMP, PREALB, ANDREZ, CBCD #### [facility] [address] [place] [address] Eosinophils (Bld) [#/Vol] 0.4 10*3/uL Normal 0.0-0.4 [facility] Comment on above: Order Comment: FAX R ESULTS TO DR FLORENCE: [phone] Performed By: #### V ITB1, ZINC #### [facility] [address] [place] [address] #### B12, FOL, CMP, PREALB, ANDREZ, CBCD #### [facility] [address] [place] [address] Eosinophils/100 WBC (Bld) 4.8 % High 1.0-4.0 [facility] Comment on above: Order Comment: FAX R ESULTS TO DR FLORENCE: [phone] Performed By: #### V ITB1, ZINC #### [facility] [address] [place] [address] #### B12, FOL, CMP, PREALB, ANDREZ, CBCD #### [facility] [address] [place] [address] Hematocrit (Bld) [Volume fraction] 41.9 % Normal 37.0-47.0 [facility] Comment on above: Order Comment: FAX R ESULTS TO DR FLORENCE: [phone] Performed By: #### V ITB1, ZINC #### [facility] [address] [place] [address] #### B12, FOL, CMP, PREALB, ANDREZ, CBCD #### [facility] [address] [place] [address]66 Hemoglobin (Bld) [Mass/Vol] 13.8 g/dL Normal 12.0-16.0 [facility] Comment on above: Order Comment: FAX R ESULTS TO DR FLORENCE: [phone] Performed By: #### V ITB1, ZINC #### [facility] [address] [place] [address] #### B12, FOL, CMP, PREALB, ANDREZ, CBCD #### [facility] [address] [place] [address] IG # 0.0 10*3/uL Normal 0.0-0.1 [facility] Comment on above: Order Comment: FAX R ESULTS TO DR FLORENCE: [phone] Performed By: #### V ITB1, ZINC #### [facility] [address] [place] [address] #### B12, FOL, CMP, PREALB, ANDREZ, CBCD #### [facility] [address] [place] [address] IG % 0.4 % Normal 0.0-1.0 [facility] Comment on above: Order Comment: FAX R STIVENULTS TO DR FLORENCE: [phone] Performed By: #### V ITB1, ZINC #### [facility] [address] [place] [address] #### B12, FOL, CMP, PREALB, ANDREZ, CBCD #### [facility] [address] [place] [address] Lymphocytes (Bld) [#/Vol] 3.8 10*3/uL Normal 1.3-4.4 [facility] Comment on above: Order Comment: FAX R ESULTS TO DR FLORENCE: [phone] Performed By: #### V ITB1, ZINC #### [facility] [address] [place] [address] #### B12, FOL, CMP, PREALB, ANDREZ, CBCD #### [facility] [address] [place] [address] 52266 Lymphocytes/100 WBC (Bld) 45.5 % High 27.0-41.0 [facility] Comment on above: Order Comment: FAX R STIVENULTS TO DR FLORENCE: [phone] Performed By: #### V ITB1, ZINC #### [facility] [address] [place] [address] #### B12, FOL, CMP, PREALB, ANDREZ, CBCD #### [facility] [address] [place] [address] MCV (RBC) [Entitic vol] 89.3 fL Normal 81.0-99.0 [facility] Comment on above: Order Comment: FAX R STIVENULTS TO DR FLORENCE: [phone] Performed By: #### V ITB1, ZINC #### [facility] [address] [place] [address] #### B12, FOL, CMP, PREALB, ANDREZ, CBCD #### [facility] [address] [place] [address] MEAN CORPUSCULAR HGB 29.4 pg Normal 27.0-31.0 [facility] Comment on above: Order Comment: FAX R STIVENULTS TO DR FLORENCE: [phone] Performed By: #### V ITB1, ZINC #### [facility] [address] [place] [address] #### B12, FOL, CMP, PREALB, ANDREZ, CBCD #### [facility] [address] [place] [address] MEAN CORPUSCULAR HGB CONC 32.9 g/dl Low 33.0-37.0 [facility] Comment on above: Order Comment: FAX R STIVENULTS TO DR FLORENCE: [phone] Performed By: #### V ITB1, ZINC #### [facility] [address] [place] [address] #### B12, FOL, CMP, PREALB, ANDREZ, CBCD #### [facility] [address] [place] [address] Monocytes (Bld) [#/Vol] 0.4 10*3/uL Normal 0.1-1.0 [facility] Comment on above: Order Comment: FAMaximo R CRISTI TO DR FLORENCE: [phone] Performed By: #### V ITB1, ZINC #### [facility] [address] [place] [address] #### B12, FOL, CMP, PREALB, ANDREZ, CBCD #### [facility] [address] [place] [address] Monocytes/100 WBC (Bld) 4.3 % Normal 3.0-9.0 [facility] Comment on above: Order Comment: FAMaximo R CRISTI TO DR FLORENCE: [phone] Performed By: #### V ITB1, ZINC #### [facility] [address] [place] [address] #### B12, FOL, CMP, PREALB, ANDREZ, CBCD #### [facility] [address] [place] [address] Neutrophils (Bld) [#/Vol] 3.7 10*3/uL Normal 2.3-7.9 [facility] Comment on above: Order Comment: JENNIFER R CRISTI TO DR FLORENCE: [phone] Performed By: #### V ITB1, ZINC #### [facility] [address] [place] [address] #### B12, FOL, CMP, PREALB, ANDREZ, CBCD #### [facility] [address] [place] [address] 76165 Neutrophils/100 WBC (Bld) 44.5 % Low 47.0-73.0 [facility] Comment on above: Order Comment: JENNIFER R CRISTI TO DR FLORENCE: [phone] Performed By: #### V ITB1, ZINC #### [facility] [address] [place] [address] #### B12, FOL, CMP, PREALB, ANDREZ, CBCD #### [facility] [address] [place] [address] 789[address] NUCLEATED RED BLOOD CELL 0.0 10*3/uL Normal 0.0-0.0 [facility] Comment on above: Order Comment: FAX R ESULTS TO DR FLORENCE: [phone] Performed By: #### V ITB1, ZINC #### [facility] [address] [place] [address] #### B12, FOL, CMP, PREALB, ANDREZ, CBCD #### [facility] [address] [place] [address] NUCLEATED RED BLOOD CELL 0.0 % Normal 0.0-0.0 [facility] Comment on above: Order Comment: FAX R ESULTS TO DR FLORENCE: [phone] Performed By: #### V ITB1, ZINC #### [facility] [address] [place] [address] #### B12, FOL, CMP, PREALB, ANDREZ, CBCD #### [facility] [address] [place] [address] PLATELET COUNT AUTOMATED 277 10*3/uL Normal 130-400 [facility] Comment on above: Order Comment: FAX R ESULTS TO DR FLORENCE: [phone] Performed By: #### V ITB1, ZINC #### [facility] [address] [place] [address] #### B12, FOL, CMP, PREALB, ANDREZ, CBCD #### [facility] [address] [place] [address] Platelet mean volume (Bld) [Entitic vol] 11.2 fL Normal 9.6-12.3 [facility] Comment on above: Order Comment: FAX R ESULTS TO DR FLORENCE: [phone] Performed By: #### V ITB1, ZINC #### [facility] [address] [place] [address] #### B12, FOL, CMP, PREALB, ANDREZ, CBCD #### [facility] [address] [place] [address] RBC (Bld) [#/Vol] 4.69 10*6/uL Normal 4.10-5.10 [facility] Comment on above: Order Comment: FAX R ESULTS TO DR FLORENCE: [phone] Performed By: #### V ITB1, ZINC #### [facility] [address] [place] [address] #### B12, FOL, CMP, PREALB, ANDREZ, CBCD #### [facility] [address] [place] [address] RED CELL DISTRI WIDTH 13.5 % Normal 0-14.5 [facility] Comment on above: Order Comment: FAX R ESULTS TO DR FLORENCE: [phone] Performed By: #### V ITB1, ZINC #### [facility] [address] [place] [address] #### B12, FOL, CMP, PREALB, ANDREZ, CBCD #### [facility] [address] [place] [address] 31952 WBC (Bld) [#/Vol] 8.3 10*3/uL Normal 4.8-10.8 [facility] Comment on above: Order Comment: FAX R ESULTS TO DR FLORENCE: [phone] Performed By: #### V ITB1, ZINC #### [facility] [address] [place] [address] #### B12, FOL, CMP, PREALB, ANDREZ, CBCD #### [facility] [address] [place] [address] COMPREHENSIVE METABOLIC PANE [facility] 12-14-2022 Albumin [Mass/Vol] 3.8 g/dL Normal 3.4-5.0 [facility] Comment on above: Order Comment: FAX R ESULTS TO DR FLORENCE: [phone] Performed By: #### V ITB1, ZINC #### [facility] [address] [place] [address] #### B12, FOL, CMP, PREALB, ANDREZ, CBCD #### [facility] [address] [place] [address]1 ALP [Catalytic activity/Vol] 74 U/L Normal 46-116 [facility] Comment on above: Order Comment: FAX R ESULTS TO DR FLORENCE: [phone] Performed By: #### V ITB1, ZINC #### [facility] [address] [place] [address] #### B12, FOL, CMP, PREALB, ANDREZ, CBCD #### [facility] [address] [place] [address] ALT [Catalytic activity/Vol] 34 U/L Normal 10-49 [facility] Comment on above: Order Comment: FAX R ESULTS TO DR FLORENCE: [phone] Performed By: #### V ITB1, ZINC #### [facility] [address] [place] [address] #### B12, FOL, CMP, PREALB, ANDREZ, CBCD #### [facility] [address] [place] [address] 35908 AST [Catalytic activity/Vol] 19 U/L Normal 0-34 [facility] Comment on above: Order Comment: FAX R ESULTS TO DR FLORENCE: [phone] Performed By: #### V ITB1, ZINC #### [facility] [address] [place] [address] #### B12, FOL, CMP, PREALB, ANDREZ, CBCD #### [facility] [address] [place] [address] 39107 Bilirubin [Mass/Vol] 0.3 mg/dL Normal 0.3-1.2 [facility] Comment on above: Order Comment: FAX R ESULTS TO DR FLORENCE: [phone] Performed By: #### V ITB1, ZINC #### [facility] [address] [place] [address] #### B12, FOL, CMP, PREALB, ANDREZ, CBCD #### [facility] [address] [place] [address] 14555 CALCIUM,TOTAL 9.0 md/dL Normal 8.7-10.4 [facility] Comment on above: Order Comment: FAX R ESULTS TO DR FLORENCE: [phone] Performed By: #### V ITB1, ZINC #### [facility] [address] [place] [address] #### B12, FOL, CMP, PREALB, ANDREZ, CBCD #### [facility] [address] [place] [address] Chloride [Moles/Vol] 109 mmol/L High 98-107 [facility] Comment on above: Order Comment: FAX R ESULTS TO DR [place]OR[place]: [phone] Performed By: #### V ITB1, ZINC #### [facility] [address] [place] [address] #### B12, FOL, CMP, PREALB, ANDREZ, CBCD #### [facility] [address] [place] [address] CO2 [Moles/Vol] 27 mmol/L Normal 20-31 [facility] Comment on above: Order Comment: FAX R ESULTS TO DR FLORENCE: [phone] Performed By: #### V ITB1, ZINC #### [facility] [address] [place] [address] #### B12, FOL, CMP, PREALB, ANDREZ, CBCD #### [facility] [address] [place] [address] Creatinine [Mass/Vol] 0.62 mg/dL Normal 0.55-1.02 [facility] Comment on above: Order Comment: FAX R ESULTS TO DR FLORENCE: [phone] Performed By: #### V ITB1, ZINC #### [facility] [address] [place] [address] #### B12, FOL, CMP, PREALB, ANDREZ, CBCD #### [facility] [address] [place] [address] EST GLOM FILT > 60 Normal [facility] Comment on above: Order Comment: FAX R ESULTS TO DR FLORENCE: [phone] Result Comment: Result Units: mL/min/1.73 m2 Note: [...] #### V ITB1, ZINC #### [facility] [address] [place] [address] #### B12, FOL, CMP, PREALB, ANDREZ, CBCD #### [facility] [address] [place] [address] ESTIMATED GLOM FILT RATE > 60 Normal [facility] Comment on above: Order Comment: JENNIFER COLIN TO DR FLORENCE: [phone] Performed By: #### V ITB1, ZINC #### [facility] [address] [place] [address] #### B12, FOL, CMP, PREALB, ANDREZ, CBCD #### [facility] [address] [place] [address] Glucose [Mass/Vol] 103 mg/dL High 65-99 [facility] Comment on above: Order Comment: JENNIFER COLIN TO DR FLORENCE: [phone] Performed By: #### V ITB1, ZINC #### [facility] [address] [place] [address] #### B12, FOL, CMP, PREALB, ANDREZ, CBCD #### [facility] [address] [place] [address] Potassium [Moles/Vol] 3.6 mmol/L Normal 3.4-5.1 [facility] Comment on above: Order Comment: JENNIFER R CRISTI TO DR FLORENCE: [phone] Performed By: #### V ITB1, ZINC #### [facility] [address] [place] [address] #### B12, FOL, CMP, PREALB, ANDREZ, CBCD #### [facility] [address] [place] [address] Protein [Mass/Vol] 6.5 g/dL Normal 6.0-8.0 [facility] Comment on above: Order Comment: FAMaximo R STIVENULTS TO DR FLORENCE: [phone] Performed By: #### V ITB1, ZINC #### [facility] [address] [place] [address] #### B12, FOL, CMP, PREALB, ANDREZ, CBCD #### [facility] [address] [place] [address] Sodium [Moles/Vol] 138 mmol/L Normal 136-145 [facility] Comment on above: Order Comment: JENNIFER COLIN TO DR FLORENCE: [phone] Performed By: #### V ITB1, ZINC #### [facility] [address] [place] [address] #### B12, FOL, CMP, PREALB, ANDREZ, CBCD #### [facility] [address] [place] [address] Urea nitrogen [Mass/Vol] 8 mg/dL Low 9-23 [facility] Comment on above: Order Comment: JENNIFER COLIN TO DR FLORENCE: [phone] Performed By: #### V ITB1, ZINC #### [facility] [address] [place] [address] #### B12, FOL, CMP, PREALB, ANDREZ, CBCD #### [facility] [address] [place] [address] FERRITINon 12-14-2022 Ferritin [Mass/Vol] 40.9 ng/mL Normal 7.3-307.3 [facility] Comment on above: Order Comment: JENNIFER COLIN TO DR FLORENCE: [phone] Performed By: #### V ITB1, ZINC #### [facility] [address] [place] [address] #### B12, FOL, CMP, PREALB, ANDREZ, CBCD #### [facility] [address] [place] [address] FOLIC ACIDon 12-14-2022 FOLIC ACID 16.04 ng/mL Normal 5.38-24.00 [facility] Comment on above: Order Comment: FAX R ESULTS TO DR FLORENCE: [phone] Result Comment: 0.35 - 3.7 ng/mL - Folate Deficiency 3.38 - 5.38 ng/mL - Indeterminate > 5.38 ng/mL - Normal Performed By: #### V ITB1, ZINC #### [facility] [address] [place] [address] #### B12, FOL, CMP, PREALB, ANDREZ, CBCD #### [facility] [address] [place] [address] PREALBUMINon 12-14-2022 Prealbumin [Mass/Vol] 16 mg/dL Normal 10-40 [facility] Comment on above: Order Comment: FAX R STIVENULTS TO DR FLORENCE: [phone] Performed By: #### V ITB1, ZINC #### [facility] [address] [place] [address] #### B12, FOL, CMP, PREALB, ANDREZ, CBCD #### [facility] [address] [place] [address] VITAMIN B12on 12-14-2022 Cobalamin (Vitamin B12) [Mass/Vol] 261 pg/mL Normal 211-911 [facility] Comment on above: Order Comment: FAX R STIVENULTS TO DR FLORENCE: [phone] Result Comment: 247 - 911 pg/mL - Normal, Vitamin B12 Sufficiency Performed By: #### V ITB1, ZINC #### [facility] [address] [place] [address] #### B12, FOL, CMP, PREALB, ANDREZ, CBCD #### [facility] [address] [place], [place] [address] CBC with DIFFERENTIALon 06-0 Basophils (Bld) [#/Vol] 0.0 10*3/uL Normal 0.0-0.1 [facility] Comment on above: Performed By: #### V ITB1, ZINC #### [facility] [address] [place] [address] #### B12, FOL, CMP, PREALB, ANDREZ, CBCD #### [facility] [address] [place] [address] Basophils/100 WBC (Bld) 0.6 % Normal 0.0-1.0 [facility] Comment on above: Performed By: #### V ITB1, ZINC #### [facility] [address] [place] [address] #### B12, FOL, CMP, PREALB, ANDREZ, CBCD #### [facility] [address] [place] [address] Eosinophils (Bld) [#/Vol] 0.4 10*3/uL Normal 0.0-0.4 [facility] Comment on above: Performed By: #### V ITB1, ZINC #### [facility] [address] [place] [address] #### B12, FOL, CMP, PREALB, ANDREZ, CBCD #### [facility] [address] [place] [address] Eosinophils/100 WBC (Bld) 6.0 % High 1.0-4.0 [facility] Comment on above: Performed By: #### V ITB1, ZINC #### [facility] [address] [place] [address] #### B12, FOL, CMP, PREALB, ANDREZ, CBCD #### [facility] [address] [place] [address] Hematocrit (Bld) [Volume fraction] 42.2 % Normal 37.0-47.0 [facility] Comment on above: Performed By: #### V ITB1, ZINC #### [facility] [address] [place] [address] #### B12, FOL, CMP, PREALB, ANDREZ, CBCD #### [facility] [address] [place] [address] Hemoglobin (Bld) [Mass/Vol] 14.0 g/dL Normal 12.0-16.0 [facility] Comment on above: Performed By: #### V ITB1, ZINC #### [facility] [address] [place] [address] #### B12, FOL, CMP, PREALB, ANDREZ, CBCD #### [facility] [address] [place] [address] IG # 0.0 10*3/uL Normal 0.0-0.1 [facility] Comment on above: Performed By: #### V ITB1, ZINC #### [facility] [address] [place] [address] #### B12, FOL, CMP, PREALB, ANDREZ, CBCD #### [facility] [address] [place] [address] IG % 0.2 % Normal 0.0-1.0 [facility] Comment on above: Performed By: #### V ITB1, ZINC #### [facility] [address] [place] [address] #### B12, FOL, CMP, PREALB, ANDREZ, CBCD #### [facility] [address] [place] [address] Lymphocytes (Bld) [#/Vol] 3.4 10*3/uL Normal 1.3-4.4 [facility] Comment on above: Performed By: #### V ITB1, ZINC #### [facility] [address] [place] [address] #### B12, FOL, CMP, PREALB, ANDREZ, CBCD #### [facility] [address] [place] [address] Lymphocytes/100 WBC (Bld) 53.6 % High 27.0-41.0 [facility] Comment on above: Performed By: #### V ITB1, ZINC #### [facility] [address] [place] [address] #### B12, FOL, CMP, PREALB, ANDREZ, CBCD #### [facility] [address] [place] [address] MCV (RBC) [Entitic vol] 88.5 fL Normal 81.0-99.0 [facility] Comment on above: Performed By: #### V ITB1, ZINC #### [facility] [address] [place] [address] #### B12, FOL, CMP, PREALB, ANDREZ, CBCD #### [facility] [address] [place] [address] MEAN CORPUSCULAR HGB 29.4 pg Normal 27.0-31.0 [facility] Comment on above: Performed By: #### V ITB1, ZINC #### [facility] [address] #### B12, FOL, CMP, PREALB, ANDREZ, CBCD #### [facility] [address] [place] [address] MEAN CORPUSCULAR HGB CONC 33.2 g/dl Normal 33.0-37.0 [facility] Comment on above: Performed By: #### V ITB1, ZINC #### [facility] [address] [place] [address] #### B12, FOL, CMP, PREALB, ANDREZ, CBCD #### [facility] [address] [place] [address] Monocytes (Bld) [#/Vol] 0.3 10*3/uL Normal 0.1-1.0 [facility] Comment on above: Performed By: #### V ITB1, ZINC #### [facility] [address] [place] [address] #### B12, FOL, CMP, PREALB, ANDREZ, CBCD #### [facility] [address] [place] [address] Monocytes/100 WBC (Bld) 4.8 % Normal 3.0-9.0 [facility] Comment on above: Performed By: #### V ITB1, ZINC #### [facility] [address] [place] [address] #### B12, FOL, CMP, PREALB, ANDREZ, CBCD #### [facility] [address] [place] [address] Neutrophils (Bld) [#/Vol] 2.2 10*3/uL Low 2.3-7.9 [facility] Comment on above: Performed By: #### V ITB1, ZINC #### [facility] [address] [place] [address] #### B12, FOL, CMP, PREALB, ANDREZ, CBCD #### [facility] [address] [place] [address] Neutrophils/100 WBC (Bld) 34.8 % Low 47.0-73.0 [facility] Comment on above: Performed By: #### V ITB1, ZINC #### [facility] [address] [place] [address] #### B12, FOL, CMP, PREALB, ANDREZ, CBCD #### [facility] [address] [place] [address] NUCLEATED RED BLOOD CELL 0.0 10*3/uL Normal 0.0-0.0 [facility] Comment on above: Performed By: #### V ITB1, ZINC #### [facility] [address] [place] [address] #### B12, FOL, CMP, PREALB, ANDREZ, CBCD #### [facility] [address] [place] [address]38 NUCLEATED RED BLOOD CELL 0.0 % Normal 0.0-0.0 [facility] Comment on above: Performed By: #### V ITB1, ZINC #### [facility] [address] [place] [address] #### B12, FOL, CMP, PREALB, ANDREZ, CBCD #### [facility] [address] [place] [address]79 PLATELET COUNT AUTOMATED 265 10*3/uL Normal 130-400 [facility] Comment on above: Performed By: #### V ITB1, ZINC #### [facility] [address] [place] [address] #### B12, FOL, CMP, PREALB, ANDREZ, CBCD #### [facility] [address] [place] [address]57 Platelet mean volume (Bld) [Entitic vol] 11.3 fL Normal 9.6-12.3 [facility] Comment on above: Performed By: #### V ITB1, ZINC #### [facility] [address] [place] [address] #### B12, FOL, CMP, PREALB, ANDREZ, CBCD #### [facility] [address] [place] [address]28 RBC (Bld) [#/Vol] 4.77 10*6/uL Normal 4.10-5.10 [facility] Comment on above: Performed By: #### V ITB1, ZINC #### [facility] [address] [place] [address] #### B12, FOL, CMP, PREALB, ANDREZ, CBCD #### [facility] [address] [place] [address] RED CELL DISTRI WIDTH 13.9 % Normal 0-14.5 [facility] Comment on above: Performed By: #### V ITB1, ZINC #### [facility] [address] [place] [address] #### B12, FOL, CMP, PREALB, ANDREZ, CBCD #### [facility] [address] [place] [address] WBC (Bld) [#/Vol] 6.3 10*3/uL Normal 4.8-10.8 [facility] Comment on above: Performed By: #### V ITB1, ZINC #### [facility] [address] [place] [address] #### B12, FOL, CMP, PREALB, ANDREZ, CBCD #### [facility] [address] [place] [address] COMPREHENSIVE METABOLIC PANE Evan 12-03-2022 Albumin [Mass/Vol] 4.0 g/dL Normal 3.4-5.0 [facility] Comment on above: Performed By: #### V ITB1, ZINC #### [facility] [address] [place] [address] #### B12, FOL, CMP, PREALB, ANDREZ, CBCD #### [facility] [address] [place] [address]17 ALP [Catalytic activity/Vol] 69 U/L Normal 46-116 [facility] Comment on above: Performed By: #### V ITB1, ZINC #### [facility] [address] [place] [address] #### B12, FOL, CMP, PREALB, ANDREZ, CBCD #### [facility] [address] [place] [address] 12516 ALT [Catalytic activity/Vol] 79 U/L High 10-49 [facility] Comment on above: Performed By: #### V ITB1, ZINC #### [facility] [address] [place] [address] #### B12, FOL, CMP, PREALB, ANDREZ, CBCD #### [facility] [address] [place] [address] AST [Catalytic activity/Vol] 31 U/L Normal 0-34 [facility] Comment on above: Performed By: #### V ITB1, ZINC #### [facility] [address] [place] [address] #### B12, FOL, CMP, PREALB, ANDREZ, CBCD #### [facility] [address] [place] [address]471 Bilirubin [Mass/Vol] 0.4 mg/dL Normal 0.3-1.2 [facility] Comment on above: Performed By: #### V ITB1, ZINC #### [facility] [address] [place] [address] #### B12, FOL, CMP, PREALB, ANDREZ, CBCD #### [facility] [address] [place] [address] CALCIUM,TOTAL 9.1 md/dL Normal 8.7-10.4 [facility] Comment on above: Performed By: #### V ITB1, ZINC #### [facility] [address] [place] [address] #### B12, FOL, CMP, PREALB, ANDREZ, CBCD #### [facility] [address] [place] [address]188 Chloride [Moles/Vol] 109 mmol/L High 98-107 [facility] Comment on above: Performed By: #### V ITB1, ZINC #### [facility] [address] [place] [address] #### B12, FOL, CMP, PREALB, ANDREZ, CBCD #### [facility] [address] [place] [address]31 CO2 [Moles/Vol] 25 mmol/L Normal 20-31 [facility] Comment on above: Performed By: #### V ITB1, ZINC #### [facility] [address] [place] [address] #### B12, FOL, CMP, PREALB, ANDREZ, CBCD #### [facility] [address] [place] [address]393 Creatinine [Mass/Vol] 0.56 mg/dL Normal 0.55-1.02 [facility] Comment on above: Performed By: #### V ITB1, ZINC #### [facility] [address] [place] [address] #### B12, FOL, CMP, PREALB, ANDREZ, CBCD #### [facility] [address] [place] [address] EST GLOM FILT > 60 Normal [facility] Comment on above: Result Comment: Result Units: [...] #### V ITB1, ZINC #### [facility] [address] [place] [address] #### B12, FOL, CMP, PREALB, ANDREZ, CBCD #### [facility] [address] [place] [address] ESTIMATED GLOM FILT RATE > 60 Normal [facility] Comment on above: Performed By: #### V ITB1, ZINC #### [facility] [address] [place] [address] #### B12, FOL, CMP, PREALB, ANDREZ, CBCD #### [facility] [address] [place] [address] Glucose [Mass/Vol] 103 mg/dL High 65-99 [facility] Comment on above: Performed By: #### V ITB1, ZINC #### [facility] [address] [place] [address] #### B12, FOL, CMP, PREALB, ANDREZ, CBCD #### [facility] [address] [place] [address] Potassium [Moles/Vol] 3.8 mmol/L Normal 3.4-5.1 [facility] Comment on above: Performed By: #### V ITB1, ZINC #### [facility] [address] [place] [address] #### B12, FOL, CMP, PREALB, ANDREZ, CBCD #### [facility] [address] [place] [address] Protein [Mass/Vol] 6.7 g/dL Normal 6.0-8.0 [facility] Comment on above: Performed By: #### V ITB1, ZINC #### [facility] [address] [place] [address] #### B12, FOL, CMP, PREALB, ANDREZ, CBCD #### [facility] [address] [place] [address] Sodium [Moles/Vol] 141 mmol/L Normal 136-145 [facility] Comment on above: Performed By: #### V ITB1, ZINC #### [facility] [address] [place] [address] #### B12, FOL, CMP, PREALB, ANDREZ, CBCD #### [facility] [address] [place] [address] Urea nitrogen [Mass/Vol] 10 mg/dL Normal 9-23 [facility] Comment on above: Performed By: #### V ITB1, ZINC #### [facility] [address] [place] [address] #### B12, FOL, CMP, PREALB, ANDREZ, CBCD #### [facility] [address] [place] [address] [id number] 12-03-2022 ESTIMATED AVERAGE GLUCOSE 94 Normal [facility] Comment on above: Performed By: #### V ITB1, ZINC #### [facility] [address] [place] [address] #### B12, FOL, CMP, PREALB, ANDREZ, CBCD #### [facility] [address] [place] [address]2002 HbA1c (Bld) [Mass fraction] 4.9 % Normal 4.8-5.6 [facility] Comment on above: Result Comment: Standarization of method based on National Glycohemoglobin Standardization Program (NGSP). HEMOGLOBIN A1c(%) DEGREE of GLUCOSE CONTROL 5.7-6.4% Prediabetes range >6.4% Diagnosis of Diabetes <7% Glycemic control for adults with Diabetes Performed By: #### V ITB1, ZINC #### [facility] [address] [place] [address] #### B12, FOL, CMP, PREALB, ANDREZ, CBCD #### [facility] [address] [place] [address] INSULINon 12-03-2022 INSULIN 14.2 mU/L Normal 2.6-37.6 [facility] Comment on above: Performed By: #### V ITB1, ZINC #### [facility] [address] [place] [address] #### B12, FOL, CMP, PREALB, ANDREZ, CBCD #### [facility] [address] [place] [address] LIPID PANEL CHOLESTEROL/HDLo n 12-03-2022 Cholesterol [Mass/Vol] 113 mg/dL Normal <200 [facility] Comment on above: Performed By: #### V ITB1, ZINC #### [facility] [address] [place] [address] #### B12, FOL, CMP, PREALB, ANDREZ, CBCD #### [facility] [address] [place] [address] Cholesterol in HDL [Mass/Vol] 26 mg/dL Low 40-60 [facility] Comment on above: Performed By: #### V ITB1, ZINC #### [facility] [address] [place] [address] #### B12, FOL, CMP, PREALB, ANDREZ, CBCD #### [facility] [address] [place] [address] Cholesterol in LDL [Mass/Vol] 52 mg/dL Normal 9-159 [facility] Comment on above: Performed By: #### V ITB1, ZINC #### [facility] [address] [place] [address] #### B12, FOL, CMP, PREALB, ANDREZ, CBCD #### [facility] [address] [place] [address] Cholesterol.total/Chol esterol in HDL [Mass ratio] 4.3 {ratio} Normal [facility] Comment on above: Performed By: #### V ITB1, ZINC #### [facility] [address] [place] [address] #### B12, FOL, CMP, PREALB, ANDREZ, CBCD #### [facility] [address] [place] [address] Triglyceride [Mass/Vol] 176 mg/dL High <150 [facility] Comment on above: Result Comment: TRIGLYCERIDE RISK ASSESSMENT: 150-199 mg/dl BORDERLINE HIGH >200 mg//dl HIGH . Performed By: #### V ITB1, ZINC #### [facility] [address] [place] [address] #### B12, FOL, CMP, PREALB, ANDREZ, CBCD #### [facility] [address] [place] [address] VLDL CHOLESTEROL 35 mg/dL Normal 6-40 [facility] Comment on above: Performed By: #### V ITB1, ZINC #### [facility] [address] [place] [address] #### B12, FOL, CMP, PREALB, ANDREZ, CBCD #### [facility] [address] [place] [address] CBC with DIFFERENTIALon 05-0 -2022 Basophils (Bld) [#/Vol] 0.0 10*3/uL Normal 0.0-0.1 [facility] Comment on above: Order Comment: FAX R ESULTS TO DR FLORENCE: [phone] Performed By: #### V ITB1, ZINC #### [facility] [address] [place] [address] #### B12, FOL, CMP, PREALB, ANDREZ, CBCD #### [facility] [address] [place] [address] Basophils/100 WBC (Bld) 0.3 % Normal 0.0-1.0 [facility] Comment on above: Order Comment: FAX R ESULTS TO DR FLORENCE: [phone] Performed By: #### V ITB1, ZINC #### [facility] [address] [place] [address] #### B12, FOL, CMP, PREALB, ANDREZ, CBCD #### [facility] [address] [place] [address] Eosinophils (Bld) [#/Vol] 0.2 10*3/uL Normal 0.0-0.4 [facility] Comment on above: Order Comment: FAX R ESULTS TO DR FLORENCE: [phone] Performed By: #### V ITB1, ZINC #### [facility] [address] [place] [address] #### B12, FOL, CMP, PREALB, ANDREZ, CBCD #### [facility] [address] [place] [address] Eosinophils/100 WBC (Bld) 3.2 % Normal 1.0-4.0 [facility] Comment on above: Order Comment: FAX R ESULTS TO DR FLORENCE: [phone] Performed By: #### V ITB1, ZINC #### [facility] [address] [place] [address] #### B12, FOL, CMP, PREALB, ANDREZ, CBCD #### [facility] [address] [place] [address] Hematocrit (Bld) [Volume fraction] 43.8 % Normal 37.0-47.0 [facility] Comment on above: Order Comment: FAX R ESULTS TO DR FLORENCE: [phone] Performed By: #### V ITB1, ZINC #### [facility] [address] [place] [address] #### B12, FOL, CMP, PREALB, ANDREZ, CBCD #### [facility] [address] [place] [address] Hemoglobin (Bld) [Mass/Vol] 14.3 g/dL Normal 12.0-16.0 [facility] Comment on above: Order Comment: FAX R ESULTS TO DR FLORENCE: [phone] Performed By: #### V ITB1, ZINC #### [facility] [address] [place] [address] #### B12, FOL, CMP, PREALB, ANDREZ, CBCD #### [facility] [address] [place] [address] IG # 0.1 10*3/uL Normal 0.0-0.1 [facility] Comment on above: Order Comment: FAX R ESULTS TO DR FLORENCE: [phone] Performed By: #### V ITB1, ZINC #### [facility] [address] [place] [address] #### B12, FOL, CMP, PREALB, ANDREZ, CBCD #### [facility] [address] [place] [address] IG % 0.7 % Normal 0.0-1.0 [facility] Comment on above: Order Comment: FAX R ESULTS TO DR FLORENCE: [phone] Performed By: #### V ITB1, ZINC #### [facility] [address] [place] [address] #### B12, FOL, CMP, PREALB, ANDREZ, CBCD #### [facility] [address] [place] [address] Lymphocytes (Bld) [#/Vol] 3.5 10*3/uL Normal 1.3-4.4 [facility] Comment on above: Order Comment: FAX R ESULTS TO DR FLORENCE: [phone] Performed By: #### V ITB1, ZINC #### [facility] [address] [place] [address] #### B12, FOL, CMP, PREALB, ANDREZ, CBCD #### [facility] [address] [place] [address] Lymphocytes/100 WBC (Bld) 46.7 % High 27.0-41.0 [facility] Comment on above: Order Comment: FAX R ESULTS TO DR FLORENCE: [phone] Performed By: #### V ITB1, ZINC #### [facility] [address] [place] [address] #### B12, FOL, CMP, PREALB, ANDREZ, CBCD #### [facility] [address] [place] [address] MCV (RBC) [Entitic vol] 88.1 fL Normal 81.0-99.0 [facility] Comment on above: Order Comment: FAX R ESULTS TO DR FLORENCE: [phone] Performed By: #### V ITB1, ZINC #### [facility] [address] [place] [address] #### B12, FOL, CMP, PREALB, ANDREZ, CBCD #### [facility] [address] [place] [address] MEAN CORPUSCULAR HGB 28.8 pg Normal 27.0-31.0 [facility] Comment on above: Order Comment: FAX R ESULTS TO DR FLORENCE: [phone] Performed By: #### V ITB1, ZINC #### [facility] [address] [place] [address] #### B12, FOL, CMP, PREALB, ANDREZ, CBCD #### [facility] [address] [place] [address] MEAN CORPUSCULAR HGB CONC 32.6 g/dl Low 33.0-37.0 [facility] Comment on above: Order Comment: FAX R ESULTS TO DR FLORENCE: [phone] Performed By: #### V ITB1, ZINC #### [facility] [address] [place] [address] #### B12, FOL, CMP, PREALB, ANDREZ, CBCD #### [facility] [address] [place] [address] Monocytes (Bld) [#/Vol] 0.3 10*3/uL Normal 0.1-1.0 [facility] Comment on above: Order Comment: FAX R ESULTS TO DR FLORENCE: [phone] Performed By: #### V ITB1, ZINC #### [facility] [address] [place] [address] #### B12, FOL, CMP, PREALB, ANDREZ, CBCD #### [facility] [address] [place] [address] Monocytes/100 WBC (Bld) 4.3 % Normal 3.0-9.0 [facility] Comment on above: Order Comment: FAX R ESULTS TO DR FLORENCE: [phone] Performed By: #### V ITB1, ZINC #### [facility] [address] [place] [address] #### B12, FOL, CMP, PREALB, ANDREZ, CBCD #### [facility] [address] [place] [address] Neutrophils (Bld) [#/Vol] 3.4 10*3/uL Normal 2.3-7.9 [facility] Comment on above: Order Comment: FAX R ESULTS TO DR FLORENCE: [phone] Performed By: #### V ITB1, ZINC #### [facility] [address] [place] [address] #### B12, FOL, CMP, PREALB, ANDREZ, CBCD #### [facility] [address] [place] [address] Neutrophils/100 WBC (Bld) 44.8 % Low 47.0-73.0 [facility] Comment on above: Order Comment: FAX R ESULTS TO DR FLORENCE: Performed By: #### V ITB1, ZINC #### [facility] [address] [place] [address] #### B12, FOL, CMP, PREALB, ANDREZ, CBCD #### [facility] [address] [place] [address] NUCLEATED RED BLOOD CELL 0.0 10*3/uL Normal 0.0-0.0 [facility] Comment on above: Order Comment: FAX R ESULTS TO DR FLORENCE: Performed By: #### V ITB1, ZINC #### [facility] [address] [place] [address] #### B12, FOL, CMP, PREALB, ANDREZ, CBCD #### [facility] [address] [place] [address] NUCLEATED RED BLOOD CELL 0.0 % Normal 0.0-0.0 [facility] Comment on above: Order Comment: FAX R ESULTS TO DR FLORENCE: Performed By: #### V ITB1, ZINC #### [facility] [address] [place] [address] #### B12, FOL, CMP, PREALB, ANDREZ, CBCD #### [facility] [address] [place] [address] PLATELET COUNT AUTOMATED 347 10*3/uL Normal 130-400 [facility] Comment on above: Order Comment: FAX R ESULTS TO DR FLORENCE: Performed By: #### V ITB1, ZINC #### [facility] [address] [place] [address] #### B12, FOL, CMP, PREALB, ANDREZ, CBCD #### [facility] [address] [place] [address] Platelet mean volume (Bld) [Entitic vol] 9.9 fL Normal 9.6-12.3 [facility] Comment on above: Order Comment: FAX R ESULTS TO DR FLORENCE: [phone] Performed By: #### V ITB1, ZINC #### [facility] [address] [place] [address] #### B12, FOL, CMP, PREALB, ANDREZ, CBCD #### [facility] [address] [place] [address] RBC (Bld) [#/Vol] 4.97 10*6/uL Normal 4.10-5.10 [facility] Comment on above: Order Comment: FAX R ESULTS TO DR FLORENCE: [phone] Performed By: #### V ITB1, ZINC #### [facility] [address] [place] [address] #### B12, FOL, CMP, PREALB, ANDREZ, CBCD #### [facility] [address] [place] [address] RED CELL DISTRI WIDTH 13.2 % Normal 0-14.5 [facility] Comment on above: Order Comment: FAX R ESULTS TO DR FLORENCE: [phone] Performed By: #### V ITB1, ZINC #### [facility] [address] [place] [address] #### B12, FOL, CMP, PREALB, ANDREZ, CBCD #### [facility] [address] [place] [address] WBC (Bld) [#/Vol] 7.5 10*3/uL Normal 4.8-10.8 [facility] Comment on above: Order Comment: FAX R ESULTS TO DR FLORENCE: [phone] Performed By: #### V ITB1, ZINC #### [facility] [address] [place] [address] #### B12, FOL, CMP, PREALB, ANDREZ, CBCD #### [facility] [address] [place] [address] COMPREHENSIVE METABOLIC PANE Evan 11-06-2022 Albumin [Mass/Vol] 4.2 g/dL Normal 3.4-5.0 [facility] Comment on above: Order Comment: FAX R ESULTS TO DR FLORENCE: Performed By: #### V ITB1, ZINC #### [facility] [address] [place] [address] #### B12, FOL, CMP, PREALB, ANDREZ, CBCD #### [facility] [address] [place] [address] ALP [Catalytic activity/Vol] 59 U/L Normal 46-116 [facility] Comment on above: Order Comment: FAX R ESULTS TO DR FLORENCE: Performed By: #### V ITB1, ZINC #### [facility] [address] [place] [address] #### B12, FOL, CMP, PREALB, ANDREZ, CBCD #### [facility] [address] [place] [address] ALT [Catalytic activity/Vol] 30 U/L Normal 10-49 [facility] Comment on above: Order Comment: FAX R ESULTS TO DR FLORENCE: [phone] Performed By: #### V ITB1, ZINC #### [facility] [address] [place] [address] #### B12, FOL, CMP, PREALB, ANDREZ, CBCD #### [facility] [address] [place] [address] AST [Catalytic activity/Vol] 20 U/L Normal 0-34 [facility] Comment on above: Order Comment: FAX R ESULTS TO DR FLORENCE: [phone] Performed By: #### V ITB1, ZINC #### [facility] [address] [place] [address] #### B12, FOL, CMP, PREALB, ANDREZ, CBCD #### [facility] [address] [place] [address] Bilirubin [Mass/Vol] 0.5 mg/dL Normal 0.3-1.2 [facility] Comment on above: Order Comment: FAX R ESULTS TO DR FLORENCE: [phone] Performed By: #### V ITB1, ZINC #### [facility] [address] [place] [address] #### B12, FOL, CMP, PREALB, ANDREZ, CBCD #### [facility] [address] [place] [address] CALCIUM,TOTAL 9.3 md/dL Normal 8.7-10.4 [facility] Comment on above: Order Comment: FAX R ESULTS TO DR FLORENCE: [phone] Performed By: #### V ITB1, ZINC #### [facility] [address] [place] [address] #### B12, FOL, CMP, PREALB, ANDREZ, CBCD #### [facility] [address] [place] [address] Chloride [Moles/Vol] 103 mmol/L Normal 98-107 [facility] Comment on above: Order Comment: JENNIFER R CRISTI TO DR FLORENCE: [phone] Performed By: #### V ITB1, ZINC #### [facility] [address] [place] [address] #### B12, FOL, CMP, PREALB, ANDREZ, CBCD #### [facility] [address] [place] [address] CO2 [Moles/Vol] 23 mmol/L Normal 20-31 [facility] Comment on above: Order Comment: JENNIFER R STIVENULTS TO DR FLORENCE: [phone] Performed By: #### V ITB1, ZINC #### [facility] [address] [place] [address] #### B12, FOL, CMP, PREALB, ANDREZ, CBCD #### [facility] [address] [place] [address] Creatinine [Mass/Vol] 0.58 mg/dL Normal 0.55-1.02 [facility] Comment on above: Order Comment: JENNIFER R STIVENULTS TO DR FLORENCE: [phone] Performed By: #### V ITB1, ZINC #### [facility] [address] [place] [address] #### B12, FOL, CMP, PREALB, ANDREZ, CBCD #### [facility] [address] [place] [address] EST GLOM FILT > 60 Normal [facility] Comment on above: Order Comment: FAX R ESULTS TO DR FLORENCE: [phone] Result Comment: Result Units: mL/min/1.73 m2 Note: [...] #### V ITB1, ZINC #### [facility] [address] [place] [address] #### B12, FOL, CMP, PREALB, ANDREZ, CBCD #### [facility] [address] [place] [address] ESTIMATED GLOM FILT RATE > 60 Normal [facility] Comment on above: Order Comment: FAX R ESULTS TO DR FLORENCE: [phone] Performed By: #### V ITB1, ZINC #### [facility] [address] [place] [address] #### B12, FOL, CMP, PREALB, ANDREZ, CBCD #### [facility] [address] [place] [address] Glucose [Mass/Vol] 92 mg/dL Normal 65-99 [facility] Comment on above: Order Comment: FAX R ESULTS TO DR FLORENCE: [phone] Performed By: #### V ITB1, ZINC #### [facility] [address] [place] [address] #### B12, FOL, CMP, PREALB, ANDREZ, CBCD #### [facility] [address] [place] [address] Potassium [Moles/Vol] 3.9 mmol/L Normal 3.4-5.1 [facility] Comment on above: Order Comment: FAX R ESULTS TO DR FLORENCE: [phone] Performed By: #### V ITB1, ZINC #### [facility] [address] [place] [address] #### B12, FOL, CMP, PREALB, ANDREZ, CBCD #### [facility] [address] [place] [address] Protein [Mass/Vol] 7.3 g/dL Normal 6.0-8.0 [facility] Comment on above: Order Comment: FAX R ESULTS TO DR FLORENCE: [phone] Performed By: #### V ITB1, ZINC #### [facility] [address] [place] [address] #### B12, FOL, CMP, PREALB, ANDREZ, CBCD #### [facility] [address] [place] [address] Sodium [Moles/Vol] 137 mmol/L Normal 136-145 [facility] Comment on above: Order Comment: FAX R ESULTS TO DR FLORENCE: [phone] Performed By: #### V ITB1, ZINC #### [facility] [address] [place] [address] #### B12, FOL, CMP, PREALB, ANDREZ, CBCD #### [facility] [address] [place] [address] Urea nitrogen [Mass/Vol] 12 mg/dL Normal 9-23 [facility] Comment on above: Order Comment: FAX R ESULTS TO DR FLORENCE: [phone] Performed By: #### V ITB1, ZINC #### [facility] [address] [place] [address] #### B12, FOL, CMP, PREALB, ANDREZ, CBCD #### [facility] [address] [place] [address] Basic Metabolic Panelon Anion gap [Moles/Vol] 11 mmol/L Normal 7-16 [facility] Calcium [Mass/Vol] 8.9 mg/dL Normal 8.6-10.[address] [facility] Chloride [Moles/Vol] 104 mmol/L Normal 98-107 [facility] CO2 [Moles/Vol] 25 mmol/L Normal 22-29 [facility] Creatinine [Mass/Vol] 0.6 mg/dL Normal 0.5-1.0 [facility] GFR Calculated >60 Normal >=60 [facility] Comment on above: Result Comment: Dion [...] secretion. Glucose [Mass/Vol] 117 mg/dL High 74-99 [facility] Potassium [Moles/Vol] 4.3 mmol/L Normal 3.5-5.0 [facility] Sodium [Moles/Vol] 140 mmol/L Normal 132-146 [facility] Urea nitrogen [Mass/Vol] 13 mg/dL Normal 6-20 [facility] Basic metabolic 2000 panelon 10-30-2022 Anion gap [Moles/Vol] 11 mmol/L 7 - 16 mmol/L [facility] Calcium [Mass/Vol] 8.9 mg/dL 8.6 - 10. 2 mg/dL [facility] Chloride [Moles/Vol] 104 mmol/L 98 - 10 7 mmol/L [facility] CO2 [Moles/Vol] 25 mmol/L 22 - 29 mmol/L [facility] Creatinine [Mass/Vol] 0.6 mg/dL 0.5 - 1.0 mg/dL [facility] GFR/1.73 sq M.predicted among non-blacks MDRD (S/P/Bld) [Vol rate/Area] mL/min/1.73 60 - PINF mL/min/1.[address] [facility] Comment on above: Pediatric calculator link [...] High 74 - 99 mg/dL [facility] Potassium [Moles/Vol] 4.3 mmol/L 3.5 - 5.0 mmol/L [facility] Sodium [Moles/Vol] 140 mmol/L 132 - 146 mmol/L [facility] Urea nitrogen [Mass/Vol] 13 mg/dL 6 - 20 mg/dL [facility] CBC With Platelet and Differ entialon 10-30-2022 Abs Imm Granulocytes 0.07 E9/L Normal [facility] Absolute Basophils 0.01 E9/L Normal 0.00-0.20 [facility] Absolute Eosinophils 0.00 E9/L Low 0.05-0.50 [facility] Absolute Lymphocytes 1.89 E9/L Normal 1.50-4.00 [facility] Absolute Monocytes 0.73 E9/L Normal 0.10-0.95 [facility] Absolute Neutrophils 9.02 E9/L High 1.80-7.30 [facility] Basophils/100 WBC (Bld) 0.1 % Normal 0.0-2.[address] [facility] Eosinophils/100 WBC (Bld) 0.0 % Normal 0.0-6.0 [facility] Hematocrit (Bld) [Volume fraction] 38.2 % Normal 34.0-48.0 [facility] Hemoglobin (Bld) [Mass/Vol] 12.2 g/dL Normal 11.5-15.5 [facility] Imm Granulocytes 0.6 % Normal 0.0-5.0 [facility] Lymphocytes/100 WBC (Bld) 16.1 % Low 20.0-42.0 [facility] MCH (RBC) [Entitic mass] 29.2 pg Normal 26.0-35.0 [facility] MCHC 31.9 % Low 32.0-34.5 [facility] MCV (RBC) [Entitic vol] 91.4 fL Normal 80.0-99.9 [facility] Monocytes/100 WBC (Bld) 6.2 % Normal 2.0-12.0 [facility] Neutrophils/100 WBC (Bld) 77.0 % Normal 43.0-80.0 [facility] Platelet Count 285 E9/L Normal 130-450 [facility] Platelet mean volume (Bld) [Entitic vol] 10.4 fL Normal 7.0-12.0 [facility] RBC 4.18 E12/L Normal 3.50-5.50 [facility] RDW 13.2 fL Normal 11.5-15.0 [facility] WBC 11.7 E9/L High 4.5-11.5 [facility] CBC with Auto Differentialon 10-30-2022 Basophils (Bld) [#/Vol] 0.01 10*3/uL [facility] Basophils/100 WBC (Bld) 0.1 % 0.0 - 2.0 % [facility] Eosinophils (Bld) [#/Vol] 0.00 10*3/uL Low [facility] Eosinophils/100 WBC (Bld) 0 % 0.0 - 6.0 % [facility] Erythrocyte distribution width (RBC) [Ratio] 13.2 fL 11.5 - 15.[address] [facility] Hematocrit (Bld) [Volume fraction] 38.2 % 34.0 - 48.0 % [facility] Hemoglobin (Bld) [Mass/Vol] 12.2 g/dL 11.5 - 15.5 g/dL [facility] Immature granulocytes (Bld) [#/Vol] 0.07 10*3/uL E9/L [facility] Immature granulocytes/100 WBC (Bld) 0.6 % 0.0 - 5.0 % [facility] Interpretation and review of laboratory results Abnormal [facility] Lymphocytes (Bld) [#/Vol] 1.89 10*3/uL [facility] Lymphocytes/100 WBC (Bld) 16.1 % Low 20.0 - 42.0 % [facility] MCH (RBC) [Entitic mass] 29.2 pg 26.0 - 35.[address] [facility] MCHC (RBC) [Mass/Vol] 31.9 % Low 32.0 - 34.5 % [facility] MCV (RBC) [Entitic vol] 91.4 fL 80.0 - 99.[address] [facility] Monocytes (Bld) [#/Vol] 0.73 10*3/uL [facility] Monocytes/100 WBC (Bld) 6.2 % 2.0 - 12.0 % [facility] Neutrophils (Bld) [#/Vol] 9.02 10*3/uL High [facility] Platelet mean volume (Bld) [Entitic vol] 10.4 fL 7.0 - 12.[address] [facility] Platelets (Bld) [#/Vol] 285 10*3/uL [facility] RBC (Bld) [#/Vol] 4.18 10*6/uL [facility] Segmented neutrophils/100 WBC (Bld) 77.0 % 43.0 - 80.0 % [facility] WBC (Bld) [#/Vol] 11.7 10*3/uL High [facility] Hepatic Function Panelon Albumin [Mass/Vol] 3.7 g/dL 3.5 - 5.2 g/dL [facility] ALP [Catalytic activity/Vol] 55 U/L 35 - 104 U/L [facility] ALT [Catalytic activity/Vol] 19 U/L 0 - 32 U/L [facility] AST [Catalytic activity/Vol] 14 U/L 0 - 31 U/L [facility] Bilirubin [Mass/Vol] 0.5 mg/dL 0.0 - 1 .2 mg/dL [facility] Bilirubin.direct [Mass/Vol] mg/dL 0.0 - 0.3 mg/dL [facility] Bilirubin.indirect [Mass/Vol] see below 0.0 - 1.0 mg/dL [facility] Comment on above: Indirect Bilirubin c annot be calculated since Total Bilirubin and/or Direct Bilirubin is below measurable range. Protein [Mass/Vol] 6.3 g/dL Low 6.4 - 8.3 g/dL [facility] Hgb A1Con 10-30-2022 HbA1c (Bld) [Mass fraction] 4.8 % Normal 4.0-5.6 [facility] Lipid Panelon 10-30-2022 Cholesterol [Mass/Vol] 99 mg/dL Normal 0-199 [facility] Cholesterol in HDL [Mass/Vol] 34 mg/dL Normal >40 [facility] Cholesterol in LDL [Mass/Vol] 43 mg/dL Normal 0-99 [facility] Triglyceride [Mass/Vol] 108 mg/dL Normal 0-149 [facility] VLDL Cholesterol (Calculated) 22 mg/dL Normal [facility] Cholesterol [Mass/Vol] 99 mg/dL 0 - 1 99 mg/dL [facility] Cholesterol in HDL [Mass/Vol] 34 mg/dL 40 - PINF mg/dL [facility] Cholesterol in LDL [Mass/Vol] 43 mg/dL 0 - 99 mg/dL [facility] Cholesterol in VLDL [Mass/Vol] 22 mg/dL [facility] Triglyceride [Mass/Vol] 108 mg/dL 0 - 149 mg/dL [facility] Liver Panelon 10-30-2022 Albumin [Mass/Vol] 3.7 g/dL Normal 3.5-5.2 [facility] ALP [Catalytic activity/Vol] 55 U/L Normal 35-104 [facility] ALT [Catalytic activity/Vol] 19 U/L Normal 0-32 [facility] AST [Catalytic activity/Vol] 14 U/L Normal 0-31 [facility] Bilirubin [Mass/Vol] 0.5 mg/dL Normal 0.0-1.2 [facility] Bilirubin Indirect see below Normal 0.0-1.0 [facility] Comment on above: Result Comment: Grace rect Bilirubin cannot be calculated since Total Bilirubin and/or Direct Bilirubin is below measurable range. Bilirubin.indirect [Mass/Vol] mg/dL Normal 0.0-0.3 [facility] Protein [Mass/Vol] 6.3 g/dL Low 6.4-8.3 [facility] METER GLUCOSEon 10-30-2022 Glucose [Mass/Vol] 111 mg/dL High 74-99 [facility] Magnesiumon 10-30-2022 Magnesium [Mass/Vol] 1.7 mg/dL Normal 1.6-2.6 [facility] Magnesium [Mass/Vol] 1.7 mg/dL 1.6 - 2 .6 mg/dL [facility] No Panel Informationon 10-30 Interpretation and review of laboratory results Abnormal [facility] POCT Glucoseon 10-30-2022 Glucose [Mass/Vol] 111 mg/dL High 74 - 99 mg/dL [facility] Interpretation and review of laboratory results Abnormal [facility] Phosphoruson 10-30-2022 Phosphate [Mass/Vol] 4.0 mg/dL Normal 2.5-4.5 [facility] Phosphate [Mass/Vol] 4.0 mg/dL 2.5 - 4 .5 mg/dL [facility] T4, Freeon 10-30-2022 Free T4 [Mass/Vol] 1.32 ng/dL 0.93 - 1. 70 ng/dL [facility] TSHon 10-30-2022 TSH [Mass/Vol] 0.828 [facility] TSH w/out Reflexon TSH w/out Reflex 0.828 uIU/mL Normal 0.270-4.[address] [facility] Thyroxine Freeon 10-30-2022 Thyroxine Free 1.32 ng/dL Normal 0.93-1.70 [facility] Comprehensive Metabolic Pane evan 10-29-2022 Potassium see note Critically abnormal 3.5-5.[address] [facility] Comment on above: Result Comment: Dupl icate order. Made no charge to patient for testing Corrected result; previously reported as 4.3 on 10/24/2022 at 19:57 by JESUS Hemoglobin A1con 10-29-2022 HbA1c (Bld) [Mass fraction] 5.1 % 4.0 - 5.6 % [employer] [facility] Hgb A1Con 10-29-2022 HbA1c (Bld) [Mass fraction] 5.1 % Normal 4.0-5.6 [facility] METER GLUCOSEon 10-29-2022 Glucose [Mass/Vol] 128 mg/dL High 74-99 [facility] Glucose [Mass/Vol] 146 mg/dL High 74-99 [facility] Glucose [Mass/Vol] 104 mg/dL High 74-99 [facility] Glucose [Mass/Vol] 101 mg/dL High 74-99 [facility] No Panel Informationon 10-29 [employer] [facility] POC Urine Qualon 0 10-29-2022 Beta HCG ( test) Ql (U) Negative Negative [employer] Work Phone: Beta HCG ( test) Ql (U) [id number] [employer] Work Phone: Negative QC Pass/Fail Pass [employer] Work Phone: Positive QC Pass/Fail Pass [employer] Work Phone: POCT Glucoseon 10-29-2022 Glucose [Mass/Vol] 128 mg/dL High 74 - 99 mg/dL [employer] [facility] Interpretation and review of laboratory results Abnormal [facility] Glucose [Mass/Vol] 146 mg/dL High 74 - 99 mg/dL [employer] [facility] Interpretation and review of laboratory results Abnormal [employer] Glucose [Mass/Vol] 104 mg/dL High 74 - 99 mg/dL [employer] Interpretation and review of laboratory results Abnormal [facility] Glucose [Mass/Vol] 101 mg/dL High 74 - 99 mg/dL [facility] Interpretation and review of laboratory results Abnormal [facility] Surgical Specimenon 10-30-19 Surgical Specimen [facility] [place] [id number] [place], [place] [id number] [place] [id number] FINAL SURGICAL PATHOLOGY REPORT NAME: BATOOL KINGSLEY Date of 10/29/2022 Collection: Medical Record [id number] Date of 10/29/2022 Number: Receipt: Age: 22 Y Sex: F Date 10/31/2022 12:02 Reported: Date Of : 2000 Financial [id number] Admitting DERIC FLORENCE Number: Physician: Patient DIS [id number] Ordering DERIC FLORENCE Location: Physician: Accession Number: [...] of hanson haq mucosal lined fibrous tissue, claims service representative or portions of small bowel which measures 4.1 x 2.5 x 1.7 cm. Much of the exterior is covered by hanson haq, soft to finely folded mucosa. Numerous, small metallic surgical [place] are present throughout the exterior. Discrete mucosal lesions are not present. Sectioning is unremarkable. Rn Managed Care sections are submitted. Block label A1. (JORGE L:TAURUS) CODES: [id number]; Department of Pathology Page 1 of 1 Normal [facility] CBC (Hemogram)on 10-24-2022 Erythrocyte distribution width (RBC) [Ratio] 13.7 fL 11.5 - 15.0 fL [facility] Hematocrit (Bld) [Volume fraction] 43.9 % 34.0 - 48.0 % [facility] Hemoglobin (Bld) [Mass/Vol] 14.3 g/dL 11.5 - 15.5 g/dL [facility] MCH (RBC) [Entitic mass] 28.9 pg 26.0 - 35.[address] [facility] MCHC (RBC) [Mass/Vol] 32.6 % 32.0 - 34.5 % [facility] MCV (RBC) [Entitic vol] 88.9 fL 80.0 - 99.[address] [facility] Platelet mean volume (Bld) [Entitic vol] 10.6 fL 7.0 - 12.[address] [facility] Platelets (Bld) [#/Vol] 321 10*3/uL [facility] RBC (Bld) [#/Vol] 4.94 10*6/uL [facility] WBC (Bld) [#/Vol] 7.0 10*3/uL [facility] CBC With Platelet No Differe ntialon 10-24-2022 Hematocrit (Bld) [Volume fraction] 43.9 % Normal 34.0-48.0 [facility] Hemoglobin (Bld) [Mass/Vol] 14.3 g/dL Normal 11.5-15.5 [facility] MCH (RBC) [Entitic mass] 28.9 pg Normal 26.0-35.[address] [facility] MCHC 32.6 % Normal 32.0-34.5 [facility] MCV (RBC) [Entitic vol] 88.9 fL Normal 80.0-99.9 [facility] Platelet Count 321 E9/L Normal 130-450 [facility] Platelet mean volume (Bld) [Entitic vol] 10.6 fL Normal 7.0-12.[address] [facility] RBC 4.94 E12/L Normal 3.50-5.[address] [facility] RDW 13.7 fL Normal 11.5-15.[address] [facility] WBC 7.0 E9/L Normal 4.5-11.5 [facility] Comprehensive Metabolic Pane l reflex Mgon 10-24-2022 Albumin [Mass/Vol] 4.6 g/dL Normal 3.5-5.[address] [facility] ALP [Catalytic activity/Vol] 69 U/L Normal 35-104 [facility] ALT [Catalytic activity/Vol] 27 U/L Normal 0-32 [facility] Anion gap [Moles/Vol] 12 mmol/L Normal 7-16 [facility] AST [Catalytic activity/Vol] 16 U/L Normal 0-31 [facility] Bilirubin [Mass/Vol] 0.4 mg/dL Normal 0.0-1.2 [facility] Calcium [Mass/Vol] 9.3 mg/dL Normal 8.6-10.[address] [facility] Chloride [Moles/Vol] 104 mmol/L Normal 98-107 [facility] CO2 [Moles/Vol] 24 mmol/L Normal 22-29 [facility] Creatinine [Mass/Vol] 0.6 mg/dL Normal 0.5-1.0 [facility] GFR Calculated >60 Normal >=60 [facility] Comment on above: Result Comment: Dion [...] secretion. Glucose [Mass/Vol] 79 mg/dL Normal 74-99 [facility] Magnesium [Moles/Vol] 4.3 mmol/L Normal 3.5-5.0 [facility] Protein [Mass/Vol] 7.6 g/dL Normal 6.4-8.[address] [facility] Sodium [Moles/Vol] 140 mmol/L Normal 132-146 [facility] Urea nitrogen [Mass/Vol] 13 mg/dL Normal 6-20 [facility] Comprehensive metabolic 2000 panelon 10-24-2022 Potassium [Moles/Vol] 4.3 mmol/L 3.5 - 5.0 mmol/L [facility] Albumin [Mass/Vol] 4.6 g/dL 3.5 - 5.2 g/dL [facility] ALP [Catalytic activity/Vol] 69 U/L 35 - 104 U/L [facility] ALT [Catalytic activity/Vol] 27 U/L 0 - 32 U/L [facility] Anion gap [Moles/Vol] 12 mmol/L 7 - 16 mmol/L [facility] AST [Catalytic activity/Vol] 16 U/L 0 - 31 U/L [facility] Bilirubin [Mass/Vol] 0.4 mg/dL 0.0 - 1 .2 mg/dL [facility] Calcium [Mass/Vol] 9.3 mg/dL 8.6 - 10. 2 mg/dL [facility] Chloride [Moles/Vol] 104 mmol/L 98 - 10 7 mmol/L [facility] CO2 [Moles/Vol] 24 mmol/L 22 - 29 mmol/L [facility] Creatinine [Mass/Vol] 0.6 mg/dL 0.5 - 1.0 mg/dL [facility] GFR/1.73 sq M.predicted among non-blacks MDRD (S/P/Bld) [Vol rate/Area] mL/min/1.73 60 - PINF mL/min/1.[address] [facility] Comment on above: Pediatric calculator link [...] mg/dL 74 - 99 mg/dL [facility] Potassium [Moles/Vol] 4.3 mmol/L 3.5 - 5.0 mmol/L [facility] Protein [Mass/Vol] 7.6 g/dL 6.4 - 8.3 g/dL [facility] Sodium [Moles/Vol] 140 mmol/L 132 - 146 mmol/L [facility] Urea nitrogen [Mass/Vol] 13 mg/dL 6 - 20 mg/dL [facility] ACT PARTIAL THROMBO TIMEon 0 - ACT PARTIAL THROMBO TIME 30.4 SECONDS Normal 20.0-32.1 [facility] Comment on above: Result Comment: APTT THERAPEUTIC RANGE = 43.6 TO 68.4 SECONDS Performed By: #### V ITB1, ZINC #### [facility] [address] [place] [id number] #### B12, FOL, CMP, PREALB, ANDREZ, CBCD #### [facility] [address] [place] [id number] CBC with DIFFERENTIALon 040 Basophils (Bld) [#/Vol] 0.0 10*3/uL Normal 0.0-0.1 [facility] Comment on above: Performed By: #### V ITB1, ZINC #### [facility] [address] [place] [address] #### B12, FOL, CMP, PREALB, ANDREZ, CBCD #### [facility] [address] [place] [address] 16484 Basophils/100 WBC (Bld) 0.5 % Normal 0.0-1.0 [facility] Comment on above: Performed By: #### V ITB1, ZINC #### [facility] [address] [place] [address] #### B12, FOL, CMP, PREALB, ANDREZ, CBCD #### [facility] [address] [place] [address] 29643 Eosinophils (Bld) [#/Vol] 0.3 10*3/uL Normal 0.0-0.4 [facility] Comment on above: Performed By: #### V ITB1, ZINC #### [facility] [address] [place] [address] #### B12, FOL, CMP, PREALB, ANDREZ, CBCD #### [facility] [address] [place] [address] 70704 Eosinophils/100 WBC (Bld) 4.1 % High 1.0-4.0 [facility] Comment on above: Performed By: #### V ITB1, ZINC #### [facility] [address] [place] [address] #### B12, FOL, CMP, PREALB, ANDREZ, CBCD #### [facility] [address] [place] [address] 11800 Hematocrit (Bld) [Volume fraction] 40.6 % Normal 37.0-47.0 [facility] Comment on above: Performed By: #### V ITB1, ZINC #### [facility] [address] [place] [address] #### B12, FOL, CMP, PREALB, ANDREZ, CBCD #### [facility] [address] [place] [address] 55593 Hemoglobin (Bld) [Mass/Vol] 13.2 g/dL Normal 12.0-16.0 [facility] Comment on above: Performed By: #### V ITB1, ZINC #### [facility] [address] [place] [address] #### B12, FOL, CMP, PREALB, ANDREZ, CBCD #### [facility] [address] [place] [address] 24489 IG # 0.0 10*3/uL Normal 0.0-0.1 [facility] Comment on above: Performed By: #### V ITB1, ZINC #### [facility] [address] [place] [address] #### B12, FOL, CMP, PREALB, ANDREZ, CBCD #### [facility] [address] [place] [address] 64104 IG % 0.5 % Normal 0.0-1.0 [facility] Comment on above: Performed By: #### V ITB1, ZINC #### [facility] [address] [place] [address] #### B12, FOL, CMP, PREALB, ANDREZ, CBCD #### [facility] [address] [place] [address] 87024 Lymphocytes (Bld) [#/Vol] 3.2 10*3/uL Normal 1.3-4.4 [facility] Comment on above: Performed By: #### V ITB1, ZINC #### [facility] [address] [place] [address] #### B12, FOL, CMP, PREALB, ANDREZ, CBCD #### [facility] [address] [place] [address] 62840 Lymphocytes/100 WBC (Bld) 41.8 % High 27.0-41.0 [facility] Comment on above: Performed By: #### V ITB1, ZINC #### [facility] [address] #### B12, FOL, CMP, PREALB, ANDREZ, CBCD #### [facility] [address] [place] [address] 16011 MCV (RBC) [Entitic vol] 88.6 fL Normal 81.0-99.0 [facility] Comment on above: Performed By: #### V ITB1, ZINC #### [facility] [address] [place], [place] [id number] #### B12, FOL, CMP, PREALB, ANDREZ, CBCD #### [facility] [address] [place] [address] 12778 MEAN CORPUSCULAR HGB 28.8 pg Normal 27.0-31.0 [facility] Comment on above: Performed By: #### V ITB1, ZINC #### [facility] [address] [place] [address] #### B12, FOL, CMP, PREALB, ANDREZ, CBCD #### [facility] [address] [place] [address] 27181 MEAN CORPUSCULAR HGB CONC 32.5 g/dl Low 33.0-37.0 [facility] Comment on above: Performed By: #### V ITB1, ZINC #### [facility] [address] [place] [address] #### B12, FOL, CMP, PREALB, ANDREZ, CBCD #### [facility] [address] [place] [address] 87020 Monocytes (Bld) [#/Vol] 0.4 10*3/uL Normal 0.1-1.0 [facility] Comment on above: Performed By: #### V ITB1, ZINC #### [facility] [address] [place] [address] #### B12, FOL, CMP, PREALB, ANDREZ, CBCD #### [facility] [address] [place] [address] 69025 Monocytes/100 WBC (Bld) 5.1 % Normal 3.0-9.0 [facility] Comment on above: Performed By: #### V ITB1, ZINC #### [facility] [address] [place] [address] #### B12, FOL, CMP, PREALB, ANDREZ, CBCD #### [facility] [address] [place] [address] 63085 Neutrophils (Bld) [#/Vol] 3.7 10*3/uL Normal 2.3-7.9 [facility] Comment on above: Performed By: #### V ITB1, ZINC #### [facility] [address] [place] [address] #### B12, FOL, CMP, PREALB, ANDREZ, CBCD #### [facility] [address] [place] [address] 30870 Neutrophils/100 WBC (Bld) 48.0 % Normal 47.0-73.0 [facility] Comment on above: Performed By: #### V ITB1, ZINC #### [facility] [address] [place] [address] #### B12, FOL, CMP, PREALB, ANDREZ, CBCD #### [facility] [address] [place] [address] 15883 NUCLEATED RED BLOOD CELL 0.0 10*3/uL Normal 0.0-0.0 [facility] Comment on above: Performed By: #### V ITB1, ZINC #### [facility] [address] [place] [address] #### B12, FOL, CMP, PREALB, ANDREZ, CBCD #### [facility] [address] [place] [address] NUCLEATED RED BLOOD CELL 0.0 % Normal 0.0-0.0 [facility] Comment on above: Performed By: #### V ITB1, ZINC #### [facility] [address] [place] [address] #### B12, FOL, CMP, PREALB, ANDREZ, CBCD #### [facility] [address] [place] [address] PLATELET COUNT AUTOMATED 300 10*3/uL Normal 130-400 [facility] Comment on above: Performed By: #### V ITB1, ZINC #### [facility] [address] [place] [address] #### B12, FOL, CMP, PREALB, ANDREZ, CBCD #### [facility] [address] [place] [address] 20598 Platelet mean volume (Bld) [Entitic vol] 10.7 fL Normal 9.6-12.3 [facility] Comment on above: Performed By: #### V ITB1, ZINC #### [facility] [address] [place] [address] #### B12, FOL, CMP, PREALB, ANDREZ, CBCD #### [facility] [address] [place] [address] 71847 RBC (Bld) [#/Vol] 4.58 10*6/uL Normal 4.10-5.10 [facility] Comment on above: Performed By: #### V ITB1, ZINC #### [facility] [address] [place] [address] #### B12, FOL, CMP, PREALB, ANDREZ, CBCD #### [facility] [address] [place] [address] 06397 RED CELL DISTRI WIDTH 13.3 % Normal 0-14.5 [facility] Comment on above: Performed By: #### V ITB1, ZINC #### [facility] [address] [place] [address] #### B12, FOL, CMP, PREALB, ANDREZ, CBCD #### [facility] [address] [place] [address] 31150 WBC (Bld) [#/Vol] 7.6 10*3/uL Normal 4.8-10.8 [facility] Comment on above: Performed By: #### V ITB1, ZINC #### [facility] [address] #### B12, FOL, CMP, PREALB, ANDREZ, CBCD #### [facility] [address] [place] [address] 34552 COMPREHENSIVE METABOLIC PANE Evan 10-04-2022 Albumin [Mass/Vol] 3.8 g/dL Normal 3.4-5.0 [facility] Comment on above: Performed By: #### V ITB1, ZINC #### [facility] [address] #### B12, FOL, CMP, PREALB, ANDREZ, CBCD #### [facility] [address] [place] [address] 14559 ALP [Catalytic activity/Vol] 63 U/L Normal 46-116 [facility] Comment on above: Performed By: #### V ITB1, ZINC #### [facility] [address] [place] [address] #### B12, FOL, CMP, PREALB, ANDREZ, CBCD #### [facility] [address] [place] [address] 71651 ALT [Catalytic activity/Vol] 18 U/L Normal 10-49 [facility] Comment on above: Performed By: #### V ITB1, ZINC #### [facility] [address] [place] [address] #### B12, FOL, CMP, PREALB, ANDREZ, CBCD #### [facility] [address] [place] [address] 71587 AST [Catalytic activity/Vol] 15 U/L Normal 0-34 [facility] Comment on above: Performed By: #### V ITB1, ZINC #### [facility] [address] [place] [address] #### B12, FOL, CMP, PREALB, ANDREZ, CBCD #### [facility] [address] [place] [address] 60489 Bilirubin [Mass/Vol] 0.3 mg/dL Normal 0.3-1.2 [facility] Comment on above: Performed By: #### V ITB1, ZINC #### [facility] [address] [place] [address] #### B12, FOL, CMP, PREALB, ANDREZ, CBCD #### [facility] [address] [place] [address] 53271 CALCIUM,TOTAL 9.2 md/dL Normal 8.7-10.4 [facility] Comment on above: Performed By: #### V ITB1, ZINC #### [facility] [address] [place] [address] #### B12, FOL, CMP, PREALB, ANDREZ, CBCD #### [facility] [address] [place] [address] 43167 Chloride [Moles/Vol] 105 mmol/L Normal 98-107 [facility] Comment on above: Performed By: #### V ITB1, ZINC #### [facility] [address] [place] [address] #### B12, FOL, CMP, PREALB, ANDREZ, CBCD #### [facility] [address] [place] [address] 87551 CO2 [Moles/Vol] 27 mmol/L Normal 20-31 [facility] Comment on above: Performed By: #### V ITB1, ZINC #### [facility] [address] [place] [address] #### B12, FOL, CMP, PREALB, ANDREZ, CBCD #### [facility] [address] [place] [address] 41765 Creatinine [Mass/Vol] 0.61 mg/dL Normal 0.55-1.02 [facility] Comment on above: Performed By: #### V ITB1, ZINC #### [facility] [address] [place] [address] #### B12, FOL, CMP, PREALB, ANDREZ, CBCD #### [facility] [address] [place] [address] EST GLOM FILT > 60 Normal [facility] Comment on above: Result Comment: Result Units: [...] #### V ITB1, ZINC #### [facility] [address] [place] [address] #### B12, FOL, CMP, PREALB, ANDREZ, CBCD #### [facility] [address] [place] [address] ESTIMATED GLOM FILT RATE > 60 Normal [facility] Comment on above: Performed By: #### V ITB1, ZINC #### [facility] [address] [place] [address] #### B12, FOL, CMP, PREALB, ANDREZ, CBCD #### [facility] [address] [place] [address] Glucose [Mass/Vol] 87 mg/dL Normal 65-99 [facility] Comment on above: Performed By: #### V ITB1, ZINC #### [facility] [address] [place] [address] #### B12, FOL, CMP, PREALB, ANDREZ, CBCD #### [facility] [address] [place] [address] Potassium [Moles/Vol] 4.2 mmol/L Normal 3.4-5.1 [facility] Comment on above: Performed By: #### V ITB1, ZINC #### [facility] [address] [place] [address] #### B12, FOL, CMP, PREALB, ANDREZ, CBCD #### [facility] [address] [place] [address] 97859 Protein [Mass/Vol] 6.9 g/dL Normal 6.0-8.0 [facility] Comment on above: Performed By: #### V ITB1, ZINC #### [facility] [address] [place] [address] #### B12, FOL, CMP, PREALB, ANDREZ, CBCD #### [facility] [address] [place] [address] 54279 Sodium [Moles/Vol] 139 mmol/L Normal 136-145 [facility] Comment on above: Performed By: #### V ITB1, ZINC #### [facility] [address] [place] [address] #### B12, FOL, CMP, PREALB, ANDREZ, CBCD #### [facility] [address] [place] [address] 01765 Urea nitrogen [Mass/Vol] 14 mg/dL Normal 9-23 [facility] Comment on above: Performed By: #### V ITB1, ZINC #### [facility] [address] [place] [address] #### B12, FOL, CMP, PREALB, ANDREZ, CBCD #### [facility] [address] [place] [address] 52801 [id number] 10-04-2022 ESTIMATED AVERAGE GLUCOSE 100 Normal [facility] Comment on above: Performed By: #### V ITB1, ZINC #### [facility] [address] [place] [address] #### B12, FOL, CMP, PREALB, ANDREZ, CBCD #### [facility] [address] [place] [address] HbA1c (Bld) [Mass fraction] 5.1 % Normal 4.8-5.6 [facility] Comment on above: Result Comment: Standarization of method based on National Glycohemoglobin Standardization Program (NGSP). HEMOGLOBIN A1c(%) DEGREE of GLUCOSE CONTROL 5.7-6.4% Prediabetes range >6.4% Diagnosis of Diabetes <7% Glycemic control for adults with Diabetes Performed By: #### V ITB1, ZINC #### [facility] [address] [place] [address] #### B12, FOL, CMP, PREALB, ANDREZ, CBCD #### [facility] [address] [place] [address] LIPID PANEL CHOLESTEROL/HDLo n 10-04-2022 Cholesterol [Mass/Vol] 122 mg/dL Normal <200 [facility] Comment on above: Performed By: #### V ITB1, ZINC #### [facility] [address] [place] [address] #### B12, FOL, CMP, PREALB, ANDREZ, CBCD #### [facility] [address] [place] [address] Cholesterol in HDL [Mass/Vol] 28 mg/dL Low 40-60 [facility] Comment on above: Performed By: #### V ITB1, ZINC #### [facility] [address] [place] [address] #### B12, FOL, CMP, PREALB, ANDREZ, CBCD #### [facility] [address] [place] [address] Cholesterol in LDL [Mass/Vol] 55 mg/dL Normal 9-159 [facility] Comment on above: Performed By: #### V ITB1, ZINC #### [facility] [address] [place] [address] #### B12, FOL, CMP, PREALB, ANDREZ, CBCD #### [facility] [address] [place] [address] Cholesterol.total/Chol esterol in HDL [Mass ratio] 4.4 {ratio} Normal [facility] Comment on above: Performed By: #### V ITB1, ZINC #### [facility] [address] [place] [address] #### B12, FOL, CMP, PREALB, ANDREZ, CBCD #### [facility] [address] [place] [address] 80395 Triglyceride [Mass/Vol] 196 mg/dL High <150 [facility] Comment on above: Result Comment: TRIGLYCERIDE RISK ASSESSMENT: 150-199 mg/dl BORDERLINE HIGH >200 mg//dl HIGH . Performed By: #### V ITB1, ZINC #### [facility] [address] [place] [address] #### B12, FOL, CMP, PREALB, ANDREZ, CBCD #### [facility] [address] [place] [address] 64723 VLDL CHOLESTEROL 39 mg/dL Normal 6-40 [facility] Comment on above: Performed By: #### V ITB1, ZINC #### [facility] [address] [place] [address] #### B12, FOL, CMP, PREALB, ANDREZ, CBCD #### [facility] [address] [place] [address] 15057 THROAT CULTUREon 08-15-2022 Throat culture THROAT CULTURE NORMAL ARIN Normal [facility] Comment on above: Performed By: #### V ITB1, ZINC #### [facility] [address] [place] [address] #### B12, FOL, CMP, PREALB, ANDREZ, CBCD #### [facility] [address] [place] [address] NOVL CORONAVIRUS NAAon 08-14 SARS-CoV-2 (COVID-19) RNA SUJATA+probe Ql (Unsp spec) Detected Abnormal Not Detected [facility] Comment on above: Result Comment: Evelyn ents who have a positive COVID-19 test result may now have treatment options. Treatment options are available for patients with mild to moderate symptoms and for hospitalized patients. Visit our website at [email or web address] for resources and information. This nucleic acid amplification test was developed and its performance characteristics determined by [facility]. Nucleic acid amplification tests include RT- PCR [...] #### V ITB1, ZINC #### [facility] [address] [place] [address] #### B12, FOL, CMP, PREALB, ANDREZ, CBCD #### [facility] [address] [place] [address] 96217 CBC with DIFFERENTIALon 08-01 Basophils (Bld) [#/Vol] 0.0 10*3/uL Normal 0.0-0.1 [facility] Comment on above: Performed By: #### V ITB1, ZINC #### [facility] [address] [place] [address] #### B12, FOL, CMP, PREALB, ANDREZ, CBCD #### [facility] [address] [place] [address] 05467 Basophils/100 WBC (Bld) 0.5 % Normal 0.0-1.0 [facility] Comment on above: Performed By: #### V ITB1, ZINC #### [facility] [address] [place] [address] #### B12, FOL, CMP, PREALB, ANDREZ, CBCD #### [facility] [address] [place] [address] 23253 Eosinophils (Bld) [#/Vol] 0.2 10*3/uL Normal 0.0-0.4 [facility] Comment on above: Performed By: #### V ITB1, ZINC #### [facility] [address] [place] [address] #### B12, FOL, CMP, PREALB, ANDREZ, CBCD #### [facility] [address] [place] [address] 29046 Eosinophils/100 WBC (Bld) 4.2 % High 1.0-4.0 [facility] Comment on above: Performed By: #### V ITB1, ZINC #### [facility] [address] [place] [address] #### B12, FOL, CMP, PREALB, ANDREZ, CBCD #### [facility] [address] [place] [address] 72433 Hematocrit (Bld) [Volume fraction] 43.8 % Normal 37.0-47.0 [facility] Comment on above: Performed By: #### V ITB1, ZINC #### [facility] [address] [place] [address] #### B12, FOL, CMP, PREALB, ANDREZ, CBCD #### [facility] [address] [place] [address] 98552 Hemoglobin (Bld) [Mass/Vol] 14.0 g/dL Normal 12.0-16.0 [facility] Comment on above: Performed By: #### V ITB1, ZINC #### [facility] [address] [place] [address] #### B12, FOL, CMP, PREALB, ANDREZ, CBCD #### [facility] [address] [place] [address] 20764 IG # 0.1 10*3/uL Normal 0.0-0.1 [facility] Comment on above: Performed By: #### V ITB1, ZINC #### [facility] [address] [place] [address] #### B12, FOL, CMP, PREALB, ANDREZ, CBCD #### [facility] [address] [place] [address] 00037 IG % 1.1 % High 0.0-1.0 [facility] Comment on above: Performed By: #### V ITB1, ZINC #### [facility] [address] [place] [address] #### B12, FOL, CMP, PREALB, ANDREZ, CBCD #### [facility] [address] [place] [address] 75030 Lymphocytes (Bld) [#/Vol] 2.9 10*3/uL Normal 1.3-4.4 [facility] Comment on above: Performed By: #### V ITB1, ZINC #### [facility] [address] [place] [address] #### B12, FOL, CMP, PREALB, ANDREZ, CBCD #### [facility] [address] [place] [address] 24750 Lymphocytes/100 WBC (Bld) 51.5 % High 27.0-41.0 [facility] Comment on above: Performed By: #### V ITB1, ZINC #### [facility] [address] [place] [address] #### B12, FOL, CMP, PREALB, ANDREZ, CBCD #### [facility] [address] [place] [address] MCV (RBC) [Entitic vol] 88.8 fL Normal 81.0-99.0 [facility] Comment on above: Performed By: #### V ITB1, ZINC #### [facility] [address] [place] [address] #### B12, FOL, CMP, PREALB, ANDREZ, CBCD #### [facility] [address] [place] [address] 27519 MEAN CORPUSCULAR HGB 28.4 pg Normal 27.0-31.0 [facility] Comment on above: Performed By: #### V ITB1, ZINC #### [facility] [address] [place] [address] #### B12, FOL, CMP, PREALB, ANDREZ, CBCD #### [facility] [address] [place] [address] 14817 MEAN CORPUSCULAR HGB CONC 32.0 g/dl Low 33.0-37.0 [facility] Comment on above: Performed By: #### V ITB1, ZINC #### [facility] [address] [place] [address] #### B12, FOL, CMP, PREALB, ANDREZ, CBCD #### [facility] [address] [place] [address] 91063 Monocytes (Bld) [#/Vol] 0.4 10*3/uL Normal 0.1-1.0 [facility] Comment on above: Performed By: #### V ITB1, ZINC #### [facility] [address] [place] [address] #### B12, FOL, CMP, PREALB, ANDREZ, CBCD #### [facility] [address] [place] [address] 59661 Monocytes/100 WBC (Bld) 7.0 % Normal 3.0-9.0 [facility] Comment on above: Performed By: #### V ITB1, ZINC #### [facility] [address] [place] [address] #### B12, FOL, CMP, PREALB, ANDREZ, CBCD #### [facility] [address] [place] [address] 92638 Neutrophils (Bld) [#/Vol] 2.0 10*3/uL Low 2.3-7.9 [facility] Comment on above: Performed By: #### V ITB1, ZINC #### [facility] [address] [place] [address] #### B12, FOL, CMP, PREALB, ANDREZ, CBCD #### [facility] [address] [place] [address] 77816 Neutrophils/100 WBC (Bld) 35.7 % Low 47.0-73.0 [facility] Comment on above: Performed By: #### V ITB1, ZINC #### [facility] [address] [place] [address] #### B12, FOL, CMP, PREALB, ANDREZ, CBCD #### [facility] [address] [place] [address] 48049 NUCLEATED RED BLOOD CELL 0.0 10*3/uL Normal 0.0-0.0 [facility] Comment on above: Performed By: #### V ITB1, ZINC #### [facility] [address] [place] [address] #### B12, FOL, CMP, PREALB, ANDREZ, CBCD #### [facility] [address] [place] [address] 17904 NUCLEATED RED BLOOD CELL 0.0 % Normal 0.0-0.0 [facility] Comment on above: Performed By: #### V ITB1, ZINC #### [facility] [address] [place] [address] #### B12, FOL, CMP, PREALB, ANDREZ, CBCD #### [facility] [address] [place] [address] 53564 PLATELET COUNT AUTOMATED 277 10*3/uL Normal 130-400 [facility] Comment on above: Performed By: #### V ITB1, ZINC #### [facility] [address] [place] [address] #### B12, FOL, CMP, PREALB, ANDREZ, CBCD #### [facility] [address] [place] [address] 22502 Platelet mean volume (Bld) [Entitic vol] 10.1 fL Normal 9.6-12.3 [facility] Comment on above: Performed By: #### V ITB1, ZINC #### [facility] [address] [place] [address] #### B12, FOL, CMP, PREALB, ANDREZ, CBCD #### [facility] [address] [place] [address] 01707 RBC (Bld) [#/Vol] 4.93 10*6/uL Normal 4.10-5.10 [facility] Comment on above: Performed By: #### V ITB1, ZINC #### [facility] [address] [place] [address] #### B12, FOL, CMP, PREALB, ANDREZ, CBCD #### [facility] [address] [place] [address] 19931 RED CELL DISTRI WIDTH 13.6 % Normal 0-14.5 [facility] Comment on above: Performed By: #### V ITB1, ZINC #### [facility] [address] [place] [address] #### B12, FOL, CMP, PREALB, ANDREZ, CBCD #### [facility] [address] [place] [address] 02527 WBC (Bld) [#/Vol] 5.7 10*3/uL Normal 4.8-10.8 [facility] Comment on above: Performed By: #### V ITB1, ZINC #### [facility] [address] [place] [address] #### B12, FOL, CMP, PREALB, ANDREZ, CBCD #### [facility] [address] [place] [address] CHEST (2 V)on 08-13-2022 CRCXR Name: BATOOL KINGSLEY Phys: KAELA ARELLANO CNP : 2000 Age: 22 Sex: F Acct: [id number] Loc: RAD Exam Date: 08/13/2022 Status: REG CLI Radiology No: [id number] Unit No: [id number] EXAM# TYPE/EXAM RESULT [id number] RAD/CHEST (2 V) SEE REPORT INDICATION: Stuffy [...] CC: Technologist: WIN CHRISTIE Transcribed Date/Time: 08/13/2022 (7082) [employer] Supervisor: OSCAR Printed Date/Time: 08/13/2022 (4497) PAGE 1 Signed Report Normal [facility] COMPREHENSIVE METABOLIC PANE Evan 08-13-2022 Albumin [Mass/Vol] 3.7 g/dL Normal 3.4-5.0 [facility] Comment on above: Performed By: #### V ITB1, ZINC #### [facility] [address] [place] [address] #### B12, FOL, CMP, PREALB, ANDREZ, CBCD #### [facility] [address] [place] 214050 ALP [Catalytic activity/Vol] 56 U/L Normal 46-116 [facility] Comment on above: Performed By: #### V ITB1, ZINC #### [facility] [address] [place] [address] #### B12, FOL, CMP, PREALB, ANDREZ, CBCD #### [facility] [address] [place] [address] ALT [Catalytic activity/Vol] 21 U/L Normal 10-49 [facility] Comment on above: Performed By: #### V ITB1, ZINC #### [facility] [address] [place] [address] #### B12, FOL, CMP, PREALB, ANDREZ, CBCD #### [facility] [address] [place] [address] AST [Catalytic activity/Vol] 23 U/L Normal 0-34 [facility] Comment on above: Performed By: #### V ITB1, ZINC #### [facility] [address] [place] [address] #### B12, FOL, CMP, PREALB, ANDREZ, CBCD #### [facility] [address] [place] [address] Bilirubin [Mass/Vol] mg/dL Low 0.3-1.2 [facility] Comment on above: Performed By: #### V ITB1, ZINC #### [facility] [address] [place] [address] #### B12, FOL, CMP, PREALB, ANDREZ, CBCD #### [facility] [address] [place] [address] CALCIUM,TOTAL 9.2 md/dL Normal 8.7-10.4 [facility] Comment on above: Performed By: #### V ITB1, ZINC #### [facility] [address] [place] [address] #### B12, FOL, CMP, PREALB, ANDREZ, CBCD #### [facility] [address] [place] [address] Chloride [Moles/Vol] 105 mmol/L Normal 98-107 [facility] Comment on above: Performed By: #### V ITB1, ZINC #### [facility] [address] [place] [address] #### B12, FOL, CMP, PREALB, ANDREZ, CBCD #### [facility] [address] [place] [address] CO2 [Moles/Vol] 25 mmol/L Normal 20-31 [facility] Comment on above: Performed By: #### V ITB1, ZINC #### [facility] [address] [place] [address] #### B12, FOL, CMP, PREALB, ANDREZ, CBCD #### [facility] [address] [place] [address] Creatinine [Mass/Vol] 0.53 mg/dL Low 0.55-1.[address] [facility] Comment on above: Performed By: #### V ITB1, ZINC #### [facility] [address] [place] [address] #### B12, FOL, CMP, PREALB, ANDREZ, CBCD #### [facility] [address] [place] [address] EST GLOM FILT > 60 Normal [facility] Comment on above: Result Comment: Result Units: [...] #### V ITB1, ZINC #### [facility] [address] [place] [address] #### B12, FOL, CMP, PREALB, ANDREZ, CBCD #### [facility] [address] [place] [address] ESTIMATED GLOM FILT RATE > 60 Normal [facility] Comment on above: Performed By: #### V ITB1, ZINC #### [facility] [address] [place] [address] #### B12, FOL, CMP, PREALB, ANDREZ, CBCD #### [facility] [address] [place] [address] Glucose [Mass/Vol] 81 mg/dL Normal 65-99 [facility] Comment on above: Performed By: #### V ITB1, ZINC #### [facility] [address] [place] [address] #### B12, FOL, CMP, PREALB, ANDREZ, CBCD #### [facility] [address] [place] [address] 50720 Potassium [Moles/Vol] 4.5 mmol/L Normal 3.4-5.1 [facility] Comment on above: Performed By: #### V ITB1, ZINC #### [facility] [address] [place] [address] #### B12, FOL, CMP, PREALB, ANDREZ, CBCD #### [facility] [address] [place] [address] 22689 Protein [Mass/Vol] 7.0 g/dL Normal 6.0-8.0 [facility] Comment on above: Performed By: #### V ITB1, ZINC #### [facility] [address] [place] [address] #### B12, FOL, CMP, PREALB, ANDREZ, CBCD #### [facility] [address] [place] [address] 56369 Sodium [Moles/Vol] 138 mmol/L Normal 136-145 [facility] Comment on above: Performed By: #### V ITB1, ZINC #### [facility] [address] [place] [address] #### B12, FOL, CMP, PREALB, ANDREZ, CBCD #### [facility] [address] [place] [address] 81105 Urea nitrogen [Mass/Vol] 7 mg/dL Low 9- [facility] Comment on above: Performed By: #### V ITB1, ZINC #### [facility] [address] [place] [address] #### B12, FOL, CMP, PREALB, ANDREZ, CBCD #### [facility] [address] [place] [address] ESR (Sed Rate)on 08-13-2022 ESR (Bld) [Velocity] 20 mm/h Normal 0-20 [facility] Comment on above: Performed By: #### V ITB1, ZINC #### [facility] [address] [place] [address] #### B12, FOL, CMP, PREALB, ANDREZ, CBCD #### [facility] [address] [place] [address] 11484 CBC with DIFFERENTIALon 07-03 Basophils (Bld) [#/Vol] 0.1 10*3/uL Normal 0.0-0.1 [facility] Comment on above: Performed By: #### C MP, TSH, LIPPAN, HBA1C, CBCD, INS #### [facility] [address] [place] [address] 89022 Basophils/100 WBC (Bld) 0.7 % Normal 0.0-1.0 [facility] Comment on above: Performed By: #### C MP, TSH, LIPPAN, HBA1C, CBCD, INS #### [facility] [address] [place] [address] 30462 Eosinophils (Bld) [#/Vol] 0.3 10*3/uL Normal 0.0-0.4 [facility] Comment on above: Performed By: #### C MP, TSH, LIPPAN, HBA1C, CBCD, INS #### [facility] [address] [place] [address] 18021 Eosinophils/100 WBC (Bld) 4.3 % High 1.0-4.0 [facility] Comment on above: Performed By: #### C MP, TSH, LIPPAN, HBA1C, CBCD, INS #### [facility] [address] [place] [address] Hematocrit (Bld) [Volume fraction] 43.7 % Normal 37.0-47.0 [facility] Comment on above: Performed By: #### C MP, TSH, LIPPAN, HBA1C, CBCD, INS #### [facility] [address] [place] [address] Hemoglobin (Bld) [Mass/Vol] 13.9 g/dL Normal 12.0-16.0 [facility] Comment on above: Performed By: #### C MP, TSH, LIPPAN, HBA1C, CBCD, INS #### [facility] [address] [place] [address] 75628 IG # 0.0 10*3/uL Normal 0.0-0.1 [facility] Comment on above: Performed By: #### C MP, TSH, LIPPAN, HBA1C, CBCD, INS #### [facility] [address] [place] [address] IG % 0.4 % Normal 0.0-1.0 [facility] Comment on above: Performed By: #### C MP, TSH, LIPPAN, HBA1C, CBCD, INS #### [facility] [address] [place] [address] Lymphocytes (Bld) [#/Vol] 3.2 10*3/uL Normal 1.3-4.4 [facility] Comment on above: Performed By: #### C MP, TSH, LIPPAN, HBA1C, CBCD, INS #### [facility] [address] [place] [address] 02306 Lymphocytes/100 WBC (Bld) 42.7 % High 27.0-41.0 [facility] Comment on above: Performed By: #### C MP, TSH, LIPPAN, HBA1C, CBCD, INS #### [facility] [address] [place] [address] 54539 MCV (RBC) [Entitic vol] 90.3 fL Normal 81.0-99.0 [facility] Comment on above: Performed By: #### C MP, TSH, LIPPAN, HBA1C, CBCD, INS #### [facility] [address] [place] [address] 86069 MEAN CORPUSCULAR HGB 28.7 pg Normal 27.0-31.0 [facility] Comment on above: Performed By: #### C MP, TSH, LIPPAN, HBA1C, CBCD, INS #### [facility] [address] [place] [address] 90572 MEAN CORPUSCULAR HGB CONC 31.8 g/dl Low 33.0-37.0 [facility] Comment on above: Performed By: #### C MP, TSH, LIPPAN, HBA1C, CBCD, INS #### [facility] [address] [place] [address] 31801 Monocytes (Bld) [#/Vol] 0.4 10*3/uL Normal 0.1-1.0 [facility] Comment on above: Performed By: #### C MP, TSH, LIPPAN, HBA1C, CBCD, INS #### [facility] [address] [place] [address] 48628 Monocytes/100 WBC (Bld) 5.4 % Normal 3.0-9.0 [facility] Comment on above: Performed By: #### C MP, TSH, LIPPAN, HBA1C, CBCD, INS #### [facility] [address] [place] [address] 35691 Neutrophils (Bld) [#/Vol] 3.4 10*3/uL Normal 2.3-7.9 [facility] Comment on above: Performed By: #### C MP, TSH, LIPPAN, HBA1C, CBCD, INS #### [facility] [address] [place] [address] 88797 Neutrophils/100 WBC (Bld) 46.5 % Low 47.0-73.0 [facility] Comment on above: Performed By: #### C MP, TSH, LIPPAN, HBA1C, CBCD, INS #### [facility] [address] [place] [address] NUCLEATED RED BLOOD CELL 0.0 10*3/uL Normal 0.0-0.0 [facility] Comment on above: Performed By: #### C MP, TSH, LIPPAN, HBA1C, CBCD, INS #### [facility] [address] [place] [address] 08071 NUCLEATED RED BLOOD CELL 0.0 % Normal 0.0-0.0 [facility] Comment on above: Performed By: #### C MP, TSH, LIPPAN, HBA1C, CBCD, INS #### [facility] [address] [place] [address] 41656 PLATELET COUNT AUTOMATED 309 10*3/uL Normal 130-400 [facility] Comment on above: Performed By: #### C MP, TSH, LIPPAN, HBA1C, CBCD, INS #### [facility] [address] [place] [address] 46203 Platelet mean volume (Bld) [Entitic vol] 10.3 fL Normal 9.6-12.3 [facility] Comment on above: Performed By: #### C MP, TSH, LIPPAN, HBA1C, CBCD, INS #### [facility] [address] [place] [address] 08952 RBC (Bld) [#/Vol] 4.84 10*6/uL Normal 4.10-5.10 [facility] Comment on above: Performed By: #### C MP, TSH, LIPPAN, HBA1C, CBCD, INS #### [facility] [address] [place] [address] 15080 RED CELL DISTRI WIDTH 13.5 % Normal 0-14.5 [facility] Comment on above: Performed By: #### C MP, TSH, LIPPAN, HBA1C, CBCD, INS #### [facility] [address] [place] [address] 42037 WBC (Bld) [#/Vol] 7.4 10*3/uL Normal 4.8-10.8 [facility] Comment on above: Performed By: #### C MP, TSH, LIPPAN, HBA1C, CBCD, INS #### [facility] [address] [place] [address] COMPREHENSIVE METABOLIC PANE Evan 07-31-2022 Albumin [Mass/Vol] 3.9 g/dL Normal 3.4-5.0 [facility] Comment on above: Performed By: #### V ITB1, ZINC #### [facility] [address] [place] [address] #### B12, FOL, CMP, PREALB, ANDREZ, CBCD #### [facility] [address] [place] [address] 65709 ALP [Catalytic activity/Vol] 60 U/L Normal 46-116 [facility] Comment on above: Performed By: #### V ITB1, ZINC #### [facility] [address] [place] [address] #### B12, FOL, CMP, PREALB, ANDREZ, CBCD #### [facility] [address] [place] [address] 14867 ALT [Catalytic activity/Vol] 23 U/L Normal 10-49 [facility] Comment on above: Performed By: #### V ITB1, ZINC #### [facility] [address] [place] [address] #### B12, FOL, CMP, PREALB, ANDREZ, CBCD #### [facility] [address] [place] [address] 81161 AST [Catalytic activity/Vol] 17 U/L Normal 0-34 [facility] Comment on above: Performed By: #### V ITB1, ZINC #### [facility] [address] [place] [address] #### B12, FOL, CMP, PREALB, ANDREZ, CBCD #### [facility] [address] [place] [address] 71546 Bilirubin [Mass/Vol] 0.3 mg/dL Normal 0.3-1.2 [facility] Comment on above: Performed By: #### V ITB1, ZINC #### [facility] [address] [place] [address] #### B12, FOL, CMP, PREALB, ANDREZ, CBCD #### [facility] [address] [place] [address] 44642 CALCIUM,TOTAL 9.6 md/dL Normal 8.7-10.4 [facility] Comment on above: Performed By: #### V ITB1, ZINC #### [facility] [address] [place] [address] #### B12, FOL, CMP, PREALB, ANDREZ, CBCD #### [facility] [address] [place] [address] 24586 Chloride [Moles/Vol] 102 mmol/L Normal 98-107 [facility] Comment on above: Performed By: #### V ITB1, ZINC #### [facility] [address] [place] [address] #### B12, FOL, CMP, PREALB, ANDREZ, CBCD #### [facility] [address] [place] [address] 38896 CO2 [Moles/Vol] 27 mmol/L Normal 20-31 [facility] Comment on above: Performed By: #### V ITB1, ZINC #### [facility] [address] [place] [address] #### B12, FOL, CMP, PREALB, ANDREZ, CBCD #### [facility] [address] [place] [address] 24418 Creatinine [Mass/Vol] 0.58 mg/dL Normal 0.55-1.02 [facility] Comment on above: Performed By: #### V ITB1, ZINC #### [facility] [address] [place] [address] #### B12, FOL, CMP, PREALB, ANDREZ, CBCD #### [facility] [address] [place] [address] 79319 EST GLOM FILT > 60 Normal [facility] Comment on above: Result Comment: Result Units: [...] #### V ITB1, ZINC #### [facility] [address] [place] [address] #### B12, FOL, CMP, PREALB, ANDREZ, CBCD #### [facility] [address] [place] [address] ESTIMATED GLOM FILT RATE > 60 Normal [facility] Comment on above: Performed By: #### V ITB1, ZINC #### [facility] [address] [place] [address] #### B12, FOL, CMP, PREALB, ANDREZ, CBCD #### [facility] [address] [place] [address] Glucose [Mass/Vol] 73 mg/dL Normal 65-99 [facility] Comment on above: Performed By: #### V ITB1, ZINC #### [facility] [address] [place] [address] #### B12, FOL, CMP, PREALB, ANDREZ, CBCD #### [facility] [address] [place] [address] Potassium [Moles/Vol] 4.2 mmol/L Normal 3.4-5.1 [facility] Comment on above: Performed By: #### V ITB1, ZINC #### [facility] [address] [place] [address] #### B12, FOL, CMP, PREALB, ANDREZ, CBCD #### [facility] [address] [place] [address] Protein [Mass/Vol] 7.2 g/dL Normal 6.0-8.0 [facility] Comment on above: Performed By: #### V ITB1, ZINC #### [facility] [address] [place] [address] #### B12, FOL, CMP, PREALB, ANDREZ, CBCD #### [facility] [address] [place] [address] Sodium [Moles/Vol] 137 mmol/L Normal 136-145 [facility] Comment on above: Performed By: #### V ITB1, ZINC #### [facility] [address] [place] [address] #### B12, FOL, CMP, PREALB, ANDREZ, CBCD #### [facility] [address] [place] [address] Urea nitrogen [Mass/Vol] 11 mg/dL Normal 9-23 [facility] Comment on above: Performed By: #### V ITB1, ZINC #### [facility] [address] [place] [address] #### B12, FOL, CMP, PREALB, ANDREZ, CBCD #### [facility] [address] [place] [address] 55498 [id number] 07-31-2022 ESTIMATED AVERAGE GLUCOSE 100 Normal [facility] Comment on above: Performed By: #### V ITB1, ZINC #### [facility] [address] [place] [address] #### B12, FOL, CMP, PREALB, ANDREZ, CBCD #### [facility] [address] [place] [address] HbA1c (Bld) [Mass fraction] 5.1 % Normal 4.8-5.6 [facility] Comment on above: Result Comment: Standarization of method based on National Glycohemoglobin Standardization Program (NGSP). HEMOGLOBIN A1c(%) DEGREE of GLUCOSE CONTROL 5.7-6.4% Prediabetes range >6.4% Diagnosis of Diabetes <7% Glycemic control for adults with Diabetes Performed By: #### V ITB1, ZINC #### [facility] [address] [place] [address] #### B12, FOL, CMP, PREALB, ANDREZ, CBCD #### [facility] [address] [place] [address] INSULINon 07-31-2022 INSULIN 45.6 mU/L High 2.6-37.6 [facility] Comment on above: Performed By: #### V ITB1, ZINC #### [facility] [address] [place] [address] #### B12, FOL, CMP, PREALB, ANDREZ, CBCD #### [facility] [address] [place] [address] 14841 LIPID PANEL CHOLESTEROL/HDLo n 07-31-2022 Cholesterol [Mass/Vol] 170 mg/dL Normal <200 [facility] Comment on above: Performed By: #### V ITB1, ZINC #### [facility] [address] [place] [address] #### B12, FOL, CMP, PREALB, ANDREZ, CBCD #### [facility] [address] [place] [address] 32334 Cholesterol in HDL [Mass/Vol] 31 mg/dL Low 40-60 [facility] Comment on above: Performed By: #### V ITB1, ZINC #### [facility] [address] [place] [address] #### B12, FOL, CMP, PREALB, ANDREZ, CBCD #### [facility] [address] [place] [address] Cholesterol in LDL [Mass/Vol] 73 mg/dL Normal 9-159 [facility] Comment on above: Performed By: #### V ITB1, ZINC #### [facility] [address] [place] [address] #### B12, FOL, CMP, PREALB, ANDREZ, CBCD #### [facility] [address] [place] [address] Cholesterol.total/Chol esterol in HDL [Mass ratio] 5.5 {ratio} Normal [facility] Comment on above: Performed By: #### V ITB1, ZINC #### [facility] [address] [place] [address] #### B12, FOL, CMP, PREALB, ANDREZ, CBCD #### [facility] [address] [place] [address] Triglyceride [Mass/Vol] 328 mg/dL High <150 [facility] Comment on above: Result Comment: TRIGLYCERIDE RISK ASSESSMENT: 150-199 mg/dl BORDERLINE HIGH >200 mg//dl HIGH . Performed By: #### V ITB1, ZINC #### [facility] [address] [place] [address] #### B12, FOL, CMP, PREALB, ANDREZ, CBCD #### [facility] [address] [place] [address] 35717 VLDL CHOLESTEROL 66 mg/dL High 6-40 [facility] Comment on above: Performed By: #### V ITB1, ZINC #### [facility] [address] [place] [address] #### B12, FOL, CMP, PREALB, ANDREZ, CBCD #### [facility] [address] [place] [address] 90386 THYROID STIM HORMONE (HS)on 07-31-2022 THYROID STIM HORMONE (HS) 2.569 uIU/ml Normal 0.550-4.780 [facility] Comment on above: Performed By: #### V ITB1, ZINC #### [facility] [address] [place] [address] #### B12, FOL, CMP, PREALB, ANDREZ, CBCD #### [facility] [address] [place] [address] NICOTINE METABOLITE, QUANTon 07-19-2022 COTININE <1.0 Normal . [facility] Comment on above: Order Comment: FAX T O [phone] Result Comment: This test was developed and its performance characteristics determined by [facility]. It has not been cleared or approved by the Food and Drug Administration. Cotinine levels greater than 20.0 are consistent with the use of tobacco or tobacco cessation products. Performed at: [address] [id number] Purification Operator Helper: Estuardo Michelle MD, Phone: [phone] Performed By: #### N ICOTINE #### [facility] [address] [place] [address] NICOTINE <1.0 Normal . [facility] Comment on above: Order Comment: FAX T O [phone] Result Comment: This test was developed and its performance characteristics determined by [facility]. It has not been cleared or approved by the Food and Drug Administration. Nicotine levels greater than 2.0 are consistent with the use of tobacco or tobacco cessation products. 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 Comment on above: Result Comment: INTE RPRETIVE INFORMATION: Vitamin B1, Whole Blood This assay measures the concentration of thiamine diphosphate (TDP), the primary active form of vitamin B1. Approximately 90 percent of vitamin B1 present in whole blood is TDP. Thiamine and thiamine monophosphate, which comprise the remaining 10 percent, are not measured. This test was developed and its performance characteristics determined by [facility]. It has not been cleared or approved by the [place] Food and Drug Administration. This test was performed in a CLIA certified laboratory and is intended for clinical purposes. Performed By: [facility] [address] [place] [address] Business Office Technician: Francisco Javier Zhang MD, PhD Performed By: #### [id number] ####[facility] [address] [place] [address] Zinc, Serumon 05-07-2022 Zinc, Serum 75.6 ug/dL Normal 60.0-120.0 [facility] Comment on above: Result Comment: INTE RPRETIVE [...] developed and its performance characteristics determined by [facility]. It has not been cleared or approved by the [place] Food and Drug Administration. This test was performed in a CLIA certified laboratory and is intended for clinical purposes. Performed By: [facility] [address] [place] [address] Business Office Technician: Francisco Javier Zhang MD, PhD Performed By: #### 2 0097 #### [facility] [address] [place], [place] [id number] Blood glucose - POCTon 05-04 Glucose [Mass/Vol] 96 mg/dL [facility] [employer] Work Phone: QC OK? [facility] [employer] Work Phone: CBCon 05-04-2022 Hematocrit (Bld) [Volume fraction] 40.4 % 34.0 - 48.0 % [facility] Hemoglobin (Bld) [Mass/Vol] 13.2 g/dL 11.5 - 15.5 g/dL [facility] MCH (RBC) [Entitic mass] 29.9 pg 26.0 - 35.[address] [facility] MCHC (RBC) [Mass/Vol] 32.7 % 32.0 - 34.5 % [facility] MCV (RBC) [Entitic vol] 91.6 fL 80.0 - 99.[address] [facility] Platelet distribution width (Bld) [Ratio] 13.0 fL 11.5 - 15.[address] [facility] Platelet mean volume (Bld) [Entitic vol] 9.8 fL 7.0 - 12.[address] [facility] Platelets (Bld) [#/Vol] 313 10*3/uL [facility] RBC (Bld) [#/Vol] 4.41 10*6/uL [facility] WBC (Bld) [#/Vol] 9.2 10*3/uL [facility] CBC With Platelet No Differe ntialon 05-04-2022 Hematocrit (Bld) [Volume fraction] 40.4 % Normal 34.0-48.0 [facility] Hemoglobin (Bld) [Mass/Vol] 13.2 g/dL Normal 11.5-15.5 [facility] MCH (RBC) [Entitic mass] 29.9 pg Normal 26.0-35.0 [facility] MCHC 32.7 % Normal 32.0-34.5 [facility] MCV (RBC) [Entitic vol] 91.6 fL Normal 80.0-99.9 [facility] Platelet Count 313 E9/L Normal 130-450 [facility] Platelet mean volume (Bld) [Entitic vol] 9.8 fL Normal 7.0-12.[address] [facility] RBC 4.41 E12/L Normal 3.50-5.50 [facility] RDW 13.0 fL Normal 11.5-15.[address] [facility] WBC 9.2 E9/L Normal 4.5-11.[address] [facility] Cholesterolon 05-04-2022 Cholesterol [Mass/Vol] 162 mg/dL Normal 0-199 [facility] Cholesterol, Totalon 022 Cholesterol [Mass/Vol] 162 mg/dL 0 - 1 99 mg/dL [facility] Comprehensive Metabolic Pane evan 05-04-2022 Albumin [Mass/Vol] 4.1 g/dL Normal 3.5-5.2 [facility] ALP [Catalytic activity/Vol] 64 U/L Normal 35-104 [facility] ALT [Catalytic activity/Vol] 22 U/L Normal 0-32 [facility] Anion gap [Moles/Vol] 10 mmol/L Normal 7-16 [facility] AST [Catalytic activity/Vol] 13 U/L Normal 0-31 [facility] Bilirubin [Mass/Vol] 0.2 mg/dL Normal 0.0-1.2 [facility] Calcium [Mass/Vol] 8.9 mg/dL Normal 8.6-10.[address] [facility] Chloride [Moles/Vol] 102 mmol/L Normal 98-107 [facility] CO2 [Moles/Vol] 25 mmol/L Normal 22-29 [facility] Creatinine [Mass/Vol] 0.7 mg/dL Normal 0.5-1.0 [facility] GFR Calculated >60 Normal >=60 [facility] Comment on above: Result Comment: Pedi [...] secretion. Glucose [Mass/Vol] 96 mg/dL Normal 74-99 [facility] Potassium [Moles/Vol] 4.5 mmol/L Normal 3.5-5.0 [facility] Protein [Mass/Vol] 6.9 g/dL Normal 6.4-8.[address] [facility] Sodium [Moles/Vol] 137 mmol/L Normal 132-146 [facility] Urea nitrogen [Mass/Vol] 17 mg/dL Normal 6-20 [facility] Albumin [Mass/Vol] 4.1 g/dL 3.5 - 5.2 g/dL [facility] ALP (Bld) [Catalytic activity/Vol] 64 U/L 35 - 104 U/L [facility] ALT [Catalytic activity/Vol] 22 U/L 0 - 32 U/L [facility] Anion gap [Moles/Vol] 10 mmol/L 7 - 16 mmol/L [facility] AST [Catalytic activity/Vol] 13 U/L 0 - 31 U/L [facility] Bilirubin [Mass/Vol] 0.2 mg/dL 0.0 - 1 .2 mg/dL [facility] Calcium [Mass/Vol] 8.9 mg/dL 8.6 - 10. 2 mg/dL [facility] Chloride [Moles/Vol] 102 mmol/L 98 - 10 7 mmol/L [facility] CO2 [Moles/Vol] 25 mmol/L 22 - 29 mmol/L [facility] Creatinine [Mass/Vol] 0.7 mg/dL 0.5 - 1.0 mg/dL [facility] GFR/1.73 sq M.predicted MDRD (S/P/Bld) [Vol rate/Area] mL/min/1.73 60 - PINF mL/min/1.[address] [facility] Comment on above: Pediatric calculator link [...] 96 mg/dL 74 - 99 mg/dL [facility] [employer] Potassium [Moles/Vol] 4.5 mmol/L 3.5 - 5.0 mmol/L [facility] [employer] Protein [Mass/Vol] 6.9 g/dL 6.4 - 8.3 g/dL [facility] [employer] Sodium [Moles/Vol] 137 mmol/L 132 - 146 mmol/L [facility] Urea nitrogen (BldV) [Mass/Vol] 17 mg/dL 6 - 20 mg/dL [facility] Ferritinon 05-04-2022 Ferritin [Mass/Vol] 69 ng/mL Normal [facility] Comment on above: Result Comment: FERR ITIN Reference Ranges: Adult Males 20 - 60 years: 30 - 400 ng/mL Adult females 17 - 60 years: 13 - 150 ng/mL Adults greater than 60 years: no established reference range Pediatrics: no established reference range Folateon 05-04-2022 Folate 8.5 ng/mL Normal 4.8-24.[address] [facility] Hgb A1Con 05-04-2022 HbA1c (Bld) [Mass fraction] 5.7 % High 4.0-5.[address] [facility] METER GLUCOSEon 05-04-2022 Glucose [Mass/Vol] 93 mg/dL Normal 74-[address] [facility] Glucose [Mass/Vol] 96 mg/dL Normal 74-99 [facility] No Panel Informationon 05-[address] [facility] [employer] Work Phone: POC Urine Qualon 1 1-04-2022 Beta HCG ( test) Ql (U) Negative Negative [employer] Phone: Lot Number [id number] [facility] [employer] Work Phone: Negative QC Pass/Fail Pass [employer] Phone: Positive QC Pass/Fail Pass [employer] Phone: [facility] [employer] Phone: POCT Glucoseon 05-04-2022 Glucose [Mass/Vol] 93 mg/dL 74 - 99 mg/dL [facility] Glucose [Mass/Vol] 96 mg/dL 74 - 99 mg/dL [facility] Prealbuminon 05-04-2022 Prealbumin [Mass/Vol] 24 mg/dL Normal 20-40 [facility] Surgical Specimenon 05-04-20 Surgical Specimen [facility] [address] [place] [address] FINAL SURGICAL PATHOLOGY REPORT NAME: BATOOL KINGSLEY Date of 05/04/2022 Collection: Medical Record [id number] Date of 05/04/2022 Number: Receipt: Age: 22 Y Sex: F Date 05/11/2022 08:29 Reported: Date Of : 2000 [facility] [id number] Admitting DERIC FLORENCE Number: Physician: Patient JHON ROBBINS Ordering DERIC FLORENCE Location: Physician: Accession Number: [...] in one part in formalin labeled Batool Kingsley biopsy antrum is a haq soft fragment of tissue that measures 0.2 x 0.2 x 0.2 cm. Entirely submitted. Block label: A1. (LESLIE) CODES: 63057; Department of Pathology Page 1 of 1 Normal [facility] Triglycerideon 05-04-2022 Interpretation and review of laboratory results Abnormal [facility] Triglyceride [Mass/Vol] 274 mg/dL High 0 - 149 mg/dL [facility] Triglycerideson 05-04-2022 Triglyceride [Mass/Vol] 274 mg/dL High 0-149 [facility] Vitamin B12on 05-04-2022 Cobalamin (Vitamin B12) [Mass/Vol] 226 pg/mL Normal 211-946 [facility] US GALLBLADDER RUQon 022 US GALLBLADDER RUQ [...] Rohit Dowling MD 05/02/22 Final result Normal [facility] Comment on above: Order Comment: Reaso n for exam:->Indigestion What reading provider will be dictating this exam?->CRC CBC Auto DifferentialOrdered By: Win Narvaez on 03-27-2021 Basophils (Bld) [#/Vol] 0.05 10*3/uL [employer] Phone: Basophils/100 WBC (Bld) 0.5 % 0.0 - 2.0 % [employer] Work Phone: Eosinophils Absolute 0.37 [employer] Phone: Eosinophils/100 WBC (Bld) 3.8 % 0.0 - 6.0 % [employer] Phone: Hematocrit (Bld) [Volume fraction] 39.5 % 34.0 - 48.0 % [employer] Phone: Hemoglobin.gastrointes tinal spec 1 Ql (Stl) 12.6 g/dL 11.5 - 15.5 g/dL [employer] Phone: Immature Granulocytes # 0.18 E9/L [employer] Phone: Immature granulocytes/100 WBC (Bld) 1.8 % 0.0 - 5.0 % [employer] Phone: Interpretation and review of laboratory results Abnormal [employer] Phone: Lymphocytes Absolute 3.73 [employer] Phone: Lymphocytes/100 WBC (Bld) 38.2 % 20.0 - 42.0 % [employer] Phone: MCH (RBC) [Entitic mass] 28.9 pg 26.0 - 35.0 pg [employer] Phone: MCHC (RBC) [Mass/Vol] 31.9 % Low 32.0 - 34.5 % [employer] Phone: MCV (RBC) [Entitic vol] 90.6 fL 80.0 - 99.9 fL [employer] Phone: Monocytes Absolute 0.46 [employer] Phone: Monocytes/100 WBC (Bld) 4.7 % 2.0 - 12.0 % [employer] Phone: Neutrophils Absolute 4.97 [employer] Phone: Neutrophils/100 WBC (Bld) 51.0 % 43.0 - 80.0 % [employer] Phone: Platelet distribution width (Bld) [Ratio] 13.3 fL 11.5 - 15.0 fL [employer] Phone: Platelet mean volume (Bld) [Entitic vol] 9.7 fL 7.0 - 12.0 fL [employer] Phone: Platelets (Bld) [#/Vol] 281 10*3/uL [employer] Phone: RBC (Bld) [#/Vol] 4.36 10*6/uL [employer] Phone: WBC (Bld) [#/Vol] 9.8 10*3/uL [employer] Phone: Comprehensive Metabolic Pane l w/ Reflex to MGOrdered By: Win Narvaez on 03-27-2021 Albumin [Mass/Vol] 4.2 g/dL 3.5 - 5.2 g/dL [employer] Phone: ALP (Bld) [Catalytic activity/Vol] 64 U/L 35 - 104 U/L [employer] Phone: ALT [Catalytic activity/Vol] 19 U/L 0 - 32 U/L [employer] Phone: Anion gap [Moles/Vol] 12 mmol/L 7 - 16 mmol/L [employer] Phone: AST [Catalytic activity/Vol] 14 U/L 0 - 31 U/L [employer] Phone: Bilirubin [Mass/Vol] mg/dL 0.0 - 1 .2 mg/dL [employer] Phone: Calcium [Mass/Vol] 9.1 mg/dL 8.6 - 10. 2 mg/dL [employer] Phone: Chloride [Moles/Vol] 103 mmol/L 98 - 10 7 mmol/L [employer] Phone: CO2 [Moles/Vol] 22 mmol/L 22 - 29 mmol/L [employer] Phone: Creatinine [Mass/Vol] 0.5 mg/dL 0.5 - 1.0 mg/dL [employer] Phone: Free PSA/Total PSA [Mass fraction] 7.1 g/dL 6.4 - 8.3 g/dL [employer] Phone: GFR >60 [employer] Phone: GFR Non- >60 >=60 mL/min/1.73 [employer] Phone: Comment on above: Chronic Kidney Disea se: less than 60 ml/min/1.73 sq.m. Kidney Failure: less than 15 ml/min/1.73 sq.m. Results valid for patients 18 years and older. Glucose [Mass/Vol] 107 mg/dL High 74 - 99 mg/dL [employer] Phone: Interpretation and review of laboratory results Abnormal [employer] Phone: Potassium [Moles/Vol] 4.2 mmol/L 3.5 - 5.0 mmol/L [employer] Phone: Sodium [Moles/Vol] 137 mmol/L 132 - 146 mmol/L [employer] Phone: Urea nitrogen (BldV) [Mass/Vol] 9 mg/dL 6 - 20 mg/dL [employer] Phone: [employer] Phone: Microscopic UrinalysisOrdere d By: Win Narvaez on 03-27-2021 Bacteria, UA FEW Abnormal None Seen /HPF [employer] Phone: Epithelial Cells, UA FEW /HPF [employer] Phone: Interpretation and review of laboratory results Abnormal [employer] Phone: RBC, UA 2-5 [employer] Phone: WBC, UA 0-1 [employer] Phone: [employer] Phone: No Panel InformationOrdered By: Win Narvaez on 03-27-2021 [employer] Phone: POC Urine QualOrde red By: Win Narvaez on 03-27-2021 Beta HCG ( test) Ql (U) Negative Negative [employer] Phone: Beta HCG ( test) Ql (U) [id number] [employer] Phone: Negative QC Pass/Fail Pass [employer] Phone: Positive QC Pass/Fail Pass [employer] Phone: US PELVIS COMPLETEOrdered By : Tien Oneal on 03-27-2021 The bilateral ovaries are mildly enlarged, right greater than left. Otherwise, unremarkable pelvic ultrasound. [employer] Phone: EXAMINATION: PELVIC ULTRASOUND 03/27/2021 TECHNIQUE: Multiple [...] Free Fluid: No evidence of free fluid. [employer] Phone: Antonio, Mhy Incoming Radiant Results From [employer] - 03/27/2021 3:01 PM EDT EXAMINATION: PELVIC [...] greater than left. Otherwise, unremarkable pelvic ultrasound. [employer] Phone: [employer] Phone: UrinalysisOrdered By: Win Narvaez on 03-27-2021 Bilirubin Urine Negative Negative [facility] Work Phone: Blood, Urine LARGE Abnormal Negative [employer] Phone: Clarity, UA Clear Clear [employer] Phone: Color, UA Yellow Straw/Yellow [employer] Phone: Glucose, Ur Negative Negative mg/dL [employer] Phone: Interpretation and review of laboratory results Abnormal [employer] Phone: Ketones Ql (U) Negative Negative mg/dL [employer] Phone: Leukocyte esterase Test strip Ql (U) Negative Negative [employer] Phone: Nitrite, Urine Negative Negative Company [facility] Work Phone: pH, UA 5.0 [employer] Phone: Protein, UA TRACE Negative mg/dL [employer] Phone: Specific [place], UA >=1.030 [employer] Phone: Urobilinogen, Urine 0.2 <2.0 E.U./dL [facility] Work Phone: [facility] Work Phone: NOSE/THROAT CULTUREon 2020 NOSE/THROAT CULTURE RUN DATE: 07/10/20 Laboratory LIVE PAGE 1 RUN TIME: 951 Specimen Inquiry RUN USER: INTERFACE [facility] Department of Laboratories [address] [place] [address] PATIENT: BATOOL KINGSLEY LOC: ALONDRA U #: [id number] HOME PHONE: AGE/SX: 20/F ROOM: RE07/08/[address]: Ameena Corcoran APRN.BALL 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 : 99 BED: DIS: STATUS: REG REF LAB O/S: Specimen: [id number] Collected: 07/08/20 Status: RASHAUN Berman#: [id number] Received: 07/08/20 Source: THROAT Sp Desc: Subm Dr: Ameena Corcoran APRN.CNP Ordered: NOSE/THRT CULT Procedure Result Verified > NOSE/THROAT CULTURE Final 07/10/20 HEAVY GROWTH OF NORMAL ARIN END OF REPORT Normal [facility] Comment on above: Performed By: #### C L[address] #### [facility] [address] [address] Vital Signs Date Time Vital Sign Value Performing Clinician Facility 04-07-2024 14:38-0400 Body weight 118.3 kg Kierra HUNT Work Phone: [facility] 04-07-2024 14:38-0400 Diastolic blood pressure 70 mm[Hg] Kierra HUNT Work Phone: [facility] 04-07-2024 14:38-0400 Systolic blood pressure 120 mm[Hg] Kierra HUNT Work Phone: [facility] 10-30-2022 08:56-0400 SaO2% (BldA) [Mass fraction] 97 % Deric Florence MD [facility] 10-30-2022 05:00-0400 Body temperature 97.9 [degF] Deric Florence MD Work Phone[facility] [employer] 10-30-2022 05:00-0400 Diastolic blood pressure 74 mm[Hg] Deric Florence MD Work Phone[facility] [employer] 10-30-2022 05:00-0400 Heart rate 74 /min Deric Florence MD Work Phone: [facility] [employer] 10-30-2022 05:00-0400 Respiratory rate 18 /min Deric Florence MD Work Phone[facility] [employer] 10-30-2022 05:00-0400 Systolic blood pressure 126 mm[Hg] Deric Florence MD Work Phone[facility] [employer] 10-29-2022 06:50-0400 Body height 170.2 cm Deric Florence MD Work Phone: [facility] [employer] 10-29-2022 06:50-0400 Body mass index (BMI) [Ratio] 55.6 kg/m2 Deric Florence MD Work Phone[facility] [employer] 10-29-2022 06:50-0400 Body weight 161.03 kg Deric Florence MD Work Phone: [facility] [employer] 10-24-2022 12:17-0400 Body height 170.2 cm Sjwz 2 [employer] [facility] [employer] 10-24-2022 12:17-0400 Body mass index (BMI) [Ratio] 55.44 kg/m2 Sjwz 2 [facility] [employer] 10-24-2022 12:17-0400 Body temperature 98.01 [degF] Sjwz 2 [facility] [employer] 10-24-2022 12:17-0400 Body weight 160.57 kg Sjwz 2 [facility] [employer] 10-24-2022 12:17-0400 Diastolic blood pressure 62 mm[Hg] Sjwz 2 [facility] [employer] 10-24-2022 12:17-0400 Heart rate 77 /min Sjwz 2 [facility] [employer] 10-24-2022 12:17-0400 Respiratory rate 16 /min [facility]z 2 [facility] [employer] 10-24-2022 12:17-0400 SaO2% (BldA) [Mass fraction] 95 % Sjwz 2 [facility] [employer] 10-24-2022 12:17-0400 Systolic blood pressure 117 mm[Hg] Sjwz 2 [facility] [employer] 05-04-2022 08:55-0400 Body temperature 98.29 [degF] Deric Florence MD Work Phone: [facility] [employer] 05-04-2022 08:55-0400 Diastolic blood pressure 68 mm[Hg] Deric Florence MD Work Phone: [facility] [employer] 05-04-2022 08:55-0400 Heart rate 83 /min Deric Florence MD Work Phone: [facility] [employer] 05-04-2022 08:55-0400 Respiratory rate 16 /min Deric Florence MD Work Phone: [facility] [employer] 05-04-2022 08:55-0400 SaO2% (BldA) [Mass fraction] 92 % Deric Florence MD Work Phone: [facility] [employer] 05-04-2022 08:55-0400 Systolic blood pressure 128 mm[Hg] Deric Florence MD Work Phone: [facility] [employer] 05-04-2022 07:06-0400 Body height 170.2 cm Deric Florence MD Work Phone: [facility] [employer] 05-04-2022 07:06-0400 Body mass index (BMI) [Ratio] 61.21 kg/m2 Deric Florence MD Work Phone: [employer] 05-04-2022 07:06-0400 Body weight 177.27 kg Deric Florence MD Work Phone: [facility] [employer] 03-27-2021 20:08-0400 Heart rate 95 /min Tien Oneal DO Work Phone: [employer] Work Phone: 03-27-2021 13:47-0400 Body height 170.2 cm Tien Oneal DO Work Phone: [employer] Work Phone: 03-27-2021 13:47-0400 Body mass index (BMI) [Ratio] 54.82 kg/m2 Tien Oneal [employer] Work Phone: [employer] Work Phone: 03-27-2021 13:47-0400 Body temperature 97.11 [degF] Tien Oneal [employer] Work Phone: [employer] Work Phone: 03-27-2021 13:47-0400 Body weight 158.76 kg Tien Oneal [employer] Work Phone: [employer] Work Phone: 03-27-2021 13:47-0400 Diastolic blood pressure 80 mm[Hg] Tien Oneal [employer] Work Phone: [employer] Work Phone: 03-27-2021 13:47-0400 Respiratory rate 16 /min Tien Oneal DO Work Phone: [employer] Work Phone: 03-27-2021 13:47-0400 SaO2% (BldA) [Mass fraction] 98 % Tien Oneal [employer] Work Phone: [employer] Phone: 03-27-2021 13:47-0400 Systolic blood pressure 173 mm[Hg] Tien Oneal [employer] Work Phone: [employer] Work Phone: Encounters Encounter Date Encounter Type Care Provider Facility Start: 04-07-2024 End: 04-07-2024 Office outpatient visit 15 minutes Kierra HUNT Work Phone: [facility] Comment on above: 27 weeks gestation o f ; Second trimester ; Gestational diabetes mellitus (GDM), antepartum, gestational diabetes method of control unspecified; Anemia affecting in second trimester Start: 04-07-2024 End: 04-07-2024 ambulatory KIERRA SHERWOOD Not Available Start: 04-07-2024 End: 04-07-2024 Bamboo flowsheet Kierra HUNT Work Phone: [facility] Start: 04-07-2024 End: 04-07-2024 Bamboo flowsheet Kierra HUNT Work Phone: [facility] Start: 03-17-2024 End: 03-17-2024 ambulatory KENDRA MURPHY [facility] Start: 03-09-2024 End: 03-09-2024 ambulatory STEPHANIE BRETT Not Available Start: 02-17-2024 End: 02-17-2024 ambulatory STEPHANIE R BRETT [facility] Start: 02-10-2024 End: 02-10-2024 ambulatory STEPHANIE BRETT Not Available Start: 01-07-2024 End: 01-07-2024 ambulatory STEPHANIE BRETT Not Available Start: 12-12-2023 End: 12-12-2023 ambulatory KIERRA SHERWOOD Not Available Start: 11-10-2023 End: 11-10-2023 Emergency department patient visit NO PCP NO PCP [facility] Start: 08-14-2023 End: 08-14-2023 Emergency department patient visit TRAVIS VALLEJO [facility] Start: 12-14-2022 ambulatory [facility] Facility:[facility] Start: 12-03-2022 ambulatory [facility] Facility:[facility] Start: 11-06-2022 ambulatory [facility] Facility:[facility] Start: 10-29-2022 End: 10-30-2022 Evaluation and management of inpatient KAELA EILEEN [facility] Start: 10-29-2022 End: 10-30-2022 Evaluation and management of inpatient [facility]eric Florence MD [facility] Comment on above: Post-operative state (Primary Dx); Morbid obesity (HCC) Start: 10-24-2022 End: 10-25-2022 ambulatory [facility] Start: 10-24-2022 Encounter for other preprocedural examination [facility] Start: 10-24-2022 End: 10-24-2022 Patient encounter status Sjwz 2 [facility] PRE ADMIT TESTING Start: 10-24-2022 End: 10-24-2022 Subsequent hospital visit by physician Hans Pat Room 2 [facility] PRE ADMIT TESTING Comment on above: Preop testing (Prima ry Dx); Malnutrition following gastrointestinal surgery Start: 10-04-2022 [facility] Facility:[facility] Start: 08-13-2022 ambulatory [facility] Facility:[facility] Start: 07-31-2022 [facility] Facility:[facility] Start: 07-13-2022 [facility] Facility:[facility] Start: 06-14-2022 [facility] Facility:[facility] Start: 05-04-2022 End: 05-04-2022 [facility] Start: 05-04-2022 End: 05-04-2022 Subsequent hospital visit by physician Deric Florence MD [facility] Comment on above: Morbid obesity due t o excess calories (HCC); Gastroesophageal reflux disease Start: 05-02-2022 End: 05-05-2022 ambulatory DERIC FLORENCE [facility] Start: 03-27-2021 End: 03-27-2021 Emergency department patient visit Tien Oneal DO Work Phone: [facility] Emergency Department Comment on above: DUB (dysfunctional u terine bleeding) (Primary Dx) Procedures Date Procedure Procedure Detail Performing Clinician Start: 04-07-2024 Urnls dip stick/tabl et rgnt non-auto w/o micrscp Kierra HUNT Work Phone: Start: 10-30-2022 INCENTIVE SPIROMETRY RT KAELA EILEEN [...] Basic metabolic panel calcium total Yang Hsu [employer] Work Phone: Start: 10-30-2022 Lipid panel Yang Ferguson [employer] Work Phone: Start: 10-30-2022 Gluc bld gluc [...] KAELA SOTOSE Start: 10-29-2022 AMBULATE PATIENT KAELA SAUER Start: 10-29-2022 BARIATRIC DIET KAELA PEA SE Start: 10-29-2022 INCENTIVE SPIROMETRY RT KAELA EILEEN Start: 10-29-2022 VITAL SIGNS KAELA EILEEN Start: 10-29-2022 Hemoglobin glycosylated a1c Yang Hsu [employer] Work Phone: Start: 10-29-2022 Gluc bld gluc [...] EILEEN Start: 05-04-2022 DIAGNOSIS FOR PROCEDURE KAELA SOTOSE Start: 05-04-2022 DIET NPO KAELA SOTOSE Start: 05-04-2022 FULL CODE KAELA ARELLANO Start: 05-04-2022 NOTIFY PHYSICIAN (SPECIFY) KAELA SOTOSE Start: 05-04-2022 PROCEDURE CONSENT KAELA ARELLANO Start: 05-04-2022 VERIFY INFORMED CONSENT KAELA EILEEN Start: 05-04-2022 VITAL SIGNS KAELA SOTOSE Start: 05-04-2022 Gluc bld gluc mntr d [...] dip stick/tablet rgnt auto w/o microscopy Win HUNT-Sreedhar Work Phone: Start: 03-27-2021 Us pelvic nonobstetr ic real-time image complete Tien Oneal DO Work Phone: Plan of Treatment Date Care Activity Detail Author Start: 04-07-2024 End: 04-07-2024 Patient encounter procedure 04/07/2024 2:40 PM EDT Routine [facility] [address] [place] [id number] Kierra Sherwood PA [address] [place], [place] [id number] Arrived [facility] Comment on above: Arrived Start: 04-07-2024 End: 04-07-2025 US for US OB SCAN FOR GROWTH Imaging Routine Gestational diabetes mellitus (GDM), antepartum, gestational diabetes method of control unspecified Anemia affecting in second trimester Expected: 04/07/2024 (Approximate), Expires: 04/07/2025 [facility] Work Phone: Comment on above: Expected: 04/07/2024 (Approximate), Expi res: 04/07/2025 Start: 10-31-2023 GFR test (Diabetes, CKD 3-4, OR last GFR 15-59) GFR test (Diabetes, CKD 3-4, OR last GFR 15-59) [facility] Start: 10-31-2023 Lipid panel [facility]ids [facility] Start: 10-30-2023 Hemoglobin A1c measurement A1C test (Diabetic or Prediabetic) [facility] Start: 10-25-2023 GFR test (Diabetes, CKD 3-4, OR last GFR 15-59) GFR test (Diabetes, CKD 3-4, OR last GFR 15-59) [facility] Start: 05-04-2023 Hemoglobin A1c measurement A1C test (Diabetic or Prediabetic) [facility] Start: 05-04-2023 Lipid panel [facility]ids [facility] Start: 01-29-2023 Influenza vaccination Flu vaccine (Season Ended) [facility] Start: 11-14-2022 End: 11-14-2022 Patient encounter procedure 11/14/2022 Office Visit Bariatrics Deric Florence MD [address] [place] [address] [facility] Surg Weight Start: 10-29-2022 End: 10-29-2022 Admission to same day surgery center 10/29/2022 Surgery IP Unit Deric Florence MD [address] [place] [address] GASTRIC BYPASS NUNO-EN-Y LAPAROSCOPICNEEDS IV TEAM HANS OR Comment on above: GASTRIC BYPASS NUNO-EN-Y LAPAROSCOPICN EEDS IV TEAM Start: 10-29-2022 End: 10-29-2022 Laps gstr rstcv px w/byp nuno-en-y limb <150 cm GASTRIC BYPASS NUNO-EN-Y LAPAROSCOPIC Morbid obesity (HCC) 10/29/2022 9:00 AM EDT [facility] Start: 10-29-2022 Subsequent hospital visit by physician 10/29/2022 Hospital Encounter IP Unit Deric Florence MD [address] [place] [id number] [facility] Start: 05-11-2022 End: 05-11-2022 Patient encounter procedure [facility] Weight Start: 05-04-2022 End: 05-04-2022 Egd transoral biopsy single/multiple EGD ESOPHAGOGASTRODUODENOSCOPY Gastroesophageal reflux disease 05/04/2022 8:18 AM EDT [facility] Start: 01-29-2022 Influenza vaccination Flu vaccine (#1) [facility] Start: 03-01-2021 Influenza vaccination Flu vaccine (#1) [employer] Phone: Start: 01-22-2020 Screening for malignant neoplasm of cervix Pap smear [facility] Start: 09-23-2019 Hepatitis B vaccine (3 of 3 - Risk 3-dose series) Hepatitis B vaccine (3 of 3 - Risk 3-dose series) [facility] Start: 2018 DTaP/Tdap/Td vaccine (1 - Tdap) DTaP/Tdap/Td vaccine (1 - Tdap) [facility] Start: 2017 Glaucoma screening Diabetic retinal exam [facility] Start: 2017 Hepatitis C screening Hepatitis C screen [facility] Start: 2017 Urine screening for protein Diabetic Alb to Cr ratio (uACR) test [facility] Start: 2015 Screening for Chlamydia trachomatis [facility] Start: 2014 HIV screening HIV screen [facility] Start: 2011 COVID-19 Vaccine (1) COVID-19 Vaccine (1) [employer] Phone: Start: 2011 Depression Monitoring Depression Monitoring [employer] Start: 2011 Depression Screen Depression Screen [employer] Start: 2010 HPV vaccine (1 - 2-dose series) HPV vaccine (1 - 2-dose series) [employer] Start: 2009 Diabetic foot examination Diabetic foot exam [employer] Start: 2005 Pneumococcal 0-64 years Vaccine (1 - PCV) Pneumococcal 0-64 years Vaccine (1 - PCV) [employer] Start: 01-22-2000 Varicella vaccine (1 of 2 - 2-dose childhood series) Varicella vaccine (1 of 2 - 2-dose childhood series) [employer] Start: 1999 COVID-19 Vaccine (#1) COVID-19 Vaccine (#1) [employer] Start: 1999 Hepatitis C screening Hepatitis C screen [employer] Phone: End: 10-29-2023 Basic metabolic 2000 panel - Serum or Plasma Basic Metabolic Panel Lab Routine Daily for 365 Days starting 10/30/2022 until 10/29/2023, 1 completed [employer] Phone: Comment on above: Daily for 365 Days starting 10/30/2022 u ntil 10/29/2023, 1 completed End: 10-29-2023 CBC W Auto Differential panel - Blood CBC with Auto Differential Lab Routine Daily for 365 Days starting 10/30/2022 until 10/29/2023, 1 completed [employer] Phone: Comment on above: Daily for 365 Days starting 10/30/2022 u ntil 10/29/2023, 1 completed End: 03-27-2021 Culture, Urine Culture, Urine Microbiology Routine One Time for 1 Occurrences starting 03/27/2021 until 03/27/2021 [employer] Phone: Comment on above: One Time for 1 Occurrences starting 03/02 until 03/27/2021 End: 05-04-2022 Cyanocobalamin vitamin b-12 [employer] Phone: Comment on above: 1 Occurrences starting 05/04/2022 until 05/04/2022 End: 05-04-2022 Ferritin [Mass/volume] in Serum or Plasma [employer] Phone: Comment on above: 1 Occurrences starting 05/04/2022 until 05/04/2022 End: 05-04-2022 Folate [employer] Phone: Comment on above: 1 Occurrences starting 05/04/2022 until 05/04/2022 Glucose [Mass/volume ] in Serum or Plasma [employer] Phone: Comment on above: 4X Daily (AC & HS) until discontinued st arting 10/29/2022 As Needed until disc ontinued starting 10/29/2022 End: 05-04-2022 Hemoglobin A1c/Hemoglobin.total in Blood [employer] Phone: Comment on above: 1 Occurrences starting 05/04/2022 until 05/04/2022 End: 10-30-2022 Hemoglobin A1c/Hemoglobin.total in Blood Hemoglobin A1C Lab Routine Tomorrow AM for 1 Occurrences starting 10/30/2022 until 10/30/2022 [employer] Phone: Comment on above: Tomorrow AM for 1 Occurrences starting 0 10/30/2022 until 10/30/2022 Hemoglobin A1c/Hemoglobin.total in Blood Hemoglobin A1C Lab Routine 10/30/2022 4:51 AM EDT [employer] Phone: End: 10-29-2023 Hepatic function 2000 panel - Serum or Plasma Hepatic Function Panel Lab Routine Daily for 365 Days starting 10/30/2022 until 10/29/2023, 1 completed [employer] Phone: Comment on above: Daily for 365 Days starting 10/30/2022 u ntil 10/29/2023, 1 completed End: 10-29-2023 Magnesium [Mass/volume] in Serum or Plasma Magnesium Lab Routine Daily for 365 Days starting 10/30/2022 until 10/29/2023, 1 completed [employer] Phone: Comment on above: Daily for 365 Days starting 10/30/2022 u ntil 10/29/2023, 1 completed Nasal Cannula Oxygen Nasal Cannu la Oxygen Respiratory Care Routine Daily until discontinued starting 10/30/2022 [employer] Phone: Comment on above: Daily until discontinued starting 2022 Oxygen therapy [Minimum Data Set] Initiate Oxygen Therapy Protocol Respiratory Care Routine As Needed until discontinued starting 10/29/2022 [employer] Phone: Comment on above: As Needed until discontinued starting End: 10-29-2023 Phosphate [Mass/volume] in Serum or Plasma Phosphorus Lab Routine Daily for 365 Days starting 10/30/2022 until 10/29/2023, 1 completed [employer] Phone: Comment on above: Daily for 365 Days starting 10/30/2022 u ntil 10/29/2023, 1 completed End: 05-04-2022 Prealbumin [Mass/volume] in Serum or Plasma [employer] Phone: Comment on above: 1 Occurrences starting 05/04/2022 until 05/04/2022 End: 10-29-2022 Spirometry panel [employer] Phone: Comment on above: Continuous until discontinued starting 0 10/29/2022 Every 2hr while awak e until discontinued starting 10/29/2022 Surgical Pathology Surgical Path ology Lab Routine Gastroesophageal reflux disease Release Upon Ordering for 1 Occurrences starting 05/04/2022 [employer] Phone: Comment on above: Release Upon Ordering for 1 Occurrences starting 05/04/2022 Surgical Pathology Surgical Path ology Lab Routine Morbid obesity (HCC) Release Upon Ordering for 1 Occurrences starting 10/29/2022 [employer]ly Phone: Comment on above: Release Upon Ordering for 1 Occurrences starting 10/29/2022 End: 05-04-2022 Vitamin B1 Vitamin B1 Lab Routine Morbi d obesity due to excess calories (HCC) 1 Occurrences starting 05/04/2022 until 05/04/2022 [employer] Phone: Comment on above: 1 Occurrences starting 05/04/2022 until 05/04/2022 End: 05-04-2022 Zinc Zinc Lab Routine Morbid obes ity due to excess calories (HCC) 1 Occurrences starting 05/04/2022 until 05/04/2022 [employer] Phone: Comment on above: 1 Occurrences starting 05/04/2022 until 05/04/2022 Immunizations Immunization Date Immunization Notes Care Provider Lito enriquez 10-24-2020 tuberculin skin test ; purified protein derivative solution, intradermal Sjwz 2 [employer] Phone: 05-25-2019 hepatitis B vaccine, adult dosage Sjwz 2 [employer] Phone: 04-01-2019 hepatitis B vaccine, adult dosage Sjwz 2 [employer] Phone: 04-01-2019 meningococcal B vacc ine, recombinant, OMV, adjuvanted Sjwz 2 [employer] Phone: 04-01-2019 tuberculin skin test ; purified protein derivative solution, intradermal Sjwz 2 [employer]ly Phone: Payers Date Payer Category Payer Medicaid [employer]ICA[place] [id number] 2023-Present [address] [place] [address] [id number] 2020 Private Health Insurance [id number] 1.2.840.860370.1.13.239.2. 7.3.504096.315 2020 Private Health Insurance [id number] 1.2.840.063878.1.13.239.2. 7.3.661127.315 1999 Unknown [id number] 2.16.840.1.266232.3.579.2. 204 1999 Unknown [id number] 2.16.840.1.410699.3.579.2. 204 1999 Unknown [id number] 2.16.840.1.179840.3.579.2. 204 1999 Unknown [id number] 2.16.840.1.738997.3.579.2. 204 1999 Unknown [id number] 2.16.840.1.133213.3.579.2. 128 1999 Unknown [id number] 2.16.840.1.110089.3.579.2. 128 1999 Unknown [id number] 2.16.840.1.564665.3.579.2. 1285 1999 Unknown [id number] 2.16.840.1.136224.3.579.2. 128 1999 Unknown [id number] 2.16.840.1.706325.3.579.2. 128 1999 Unknown [id number] 2.16.840.1.990516.3.579.2. 1258 1999 Unknown [id number] 2.16.840.1.170313.3.579.2. 125 1999 Unknown [id number] 2.16.840.1.486134.3.579.2. 1259 1999 Unknown [id number] 2.16.840.1.847179.3.579.2. 125 1999 Unknown [id number] 2.16.840.1.445888.3.579.2. 1259 Unknown [id number] 2.16.840.1.647720.3.579.2. 212 Unknown [id number] 2.16.840.1.877340.3.579.2. 212 Unknown [id number] 2.16.840.1.932219.3.579.2. 212 Unknown [id number] 2.16.840.1.121161.3.579.2. 212 Unknown [id number] 2.16.840.1.009025.3.579.2. 212 Unknown [id number] 2.16.840.1.729552.3.579.2. 212 Unknown [id number] 2.16.840.1.411421.3.579.2. 212 Unknown [id number] 2.16.840.1.608719.3.579.2. 212 Unknown [id number] 2.16.840.1.368564.3.579.2. 212 Social History Date Type Detail Facility Tobacco smoking stat [facility] Unknown if ever smoked [employer] Phone: Start: 2000 Sex Assigned At Not on file [employer] Phone: Start: 04-23-2022 End: 05-03-2022 Exposure to SARS-CoV-2 (event) Not sure [facility] Start: 05-03-2022 End: 10-24-2022 Tobacco smoking status TXIS Ex-smoker [employer] Phone: End: 12-29-2021 History of tobacco use Current smoker [employer] Phone: End: 12-29-2021 History of tobacco use Cigarette Smoker [employer] Phone: Start: 05-03-2022 End: 12-12-2023 Tobacco use and exposure Smokeless tobacco non-user [employer] Phone: Start: 05-04-2022 End: 10-30-2022 Alcohol intake Current drinker of alcohol (finding) [employer] Phone: Start: 05-03-2022 Tobacco Comment Quit 12/2021 [employer] Phone: Start: 05-03-2022 Alcohol Comment occ FLORIDALMA JO [facility] [employer] Phone: Start: 10-29-2022 History SDOH Alcohol Frequency 1 FLORIDALMA GIPSON [employer] Work Phone: Start: 12-12-2023 [facility] Start: 03-09-2024 End: 04-07-2024 Alcoholic beverage intake Ex-drinker (finding) [facility] Start: 12-12-2023 End: 03-09-2024 Alcoholic beverage intake [facility] Start: 12-12-2023 Tobacco use panel [facility] Start: 10-13-2023 [facility] Clinical Notes 05-04-2022 to 04-07-2024 MARILEE Espinosa - 04/07/2024 2:40 PM EDTDischarge InstructionsAttachmentsDeric Florence MD - 10/30/2022 6:48 AM Kartik Mason DO - 10/30/2022 6:36 AM EDTDischarge Instructions Note Date & Type Note Facility 04-07-2024 History of Present illness Narrative Reason for Appointment: Patient ID: Batool Kingsley is a 24 y.o. female who presents for Routine Visit Patient presents today for Return OB appointment. MEDICATIONS Current Outpatient Medications Medication Instructions albuterol HFA 90 mcg/act inhaler cholecalciferol (Vitamin D-3) 50 MCG (1999 UT) capsule 1 capsule, Every 24 hours iron polysaccharides (PROFE) 391.3 mg, Oral, Daily Vit-Fe Fumarate-FA ( Plus/Iron) 27-1 MG tablet 1 tablet, Oral, Daily ALLERGIES No Known Allergies PROBLEMS Active Ambulatory Problems Diagnosis Date Noted No Active Ambulatory Problems Resolved Ambulatory Problems Diagnosis Date Noted No Resolved Ambulatory Problems Past Medical History: Diagnosis Date Polycystic ovary syndrome 02-20-19 HISTORY PAST MEDICAL HISTORY SOCIAL HISTORY Past Medical History: Diagnosis Date Polycystic ovary syndrome 02-20-19 Social History Tobacco Use Smoking status: Never Smokeless tobacco: Never Substance Use Topics Alcohol use: Not Currently Alcohol/week: 2.0 standard drinks of alcohol Types: 2 Standard drinks or equivalent per week Drug use: Never FAMILY HISTORY Family History Problem Relation Name Age of Onset Breast cancer Paternal Grandmother Cervical cancer Other SURGICAL HISTORY Past Surgical History: Procedure Laterality Date GASTRIC BYPASS 10/2022 REVIEW OF SYSTEMS Review of Systems: Review of Systems Constitutional: Negative. HENT: Negative. Eyes: Negative. Respiratory: Negative. Cardiovascular: Negative. Gastrointestinal: Negative. Genitourinary: Negative. Musculoskeletal: Negative. Skin: Negative. Neurological: Negative. All other systems reviewed and are negative. Hematological: Negative. Endocrine: Negative. Allergic/Immunologic: Negative. OBJECTIVE Objective: Physical Exam Constitutional: Appearance: Normal appearance. She is well-developed and normal weight. HENT: Head: Normocephalic. Cardiovascular: Rate and Rhythm: Normal rate and regular rhythm. Pulses: Normal pulses. Pulmonary: Effort: Pulmonary effort is normal. Breath sounds: Normal breath sounds. Abdominal: General: Bowel sounds are normal. There is no distension. Palpations: Abdomen is soft. Tenderness: There is no abdominal tenderness. There is no guarding or rebound. Musculoskeletal: General: No swelling. Normal range of motion. Right lower leg: No edema. Left lower leg: No edema. Neurological: General: No focal deficit present. Mental Status: She is alert and oriented to person, place, and time. Skin: General: Skin is warm and dry. Psychiatric: Mood and Affect: Mood normal. Behavior: Behavior normal. Thought Content: Thought content normal. Judgment: Judgment normal. Vitals and nursing note reviewed. Exam conducted with a ground crew supervisor present. Vitals: There is no height or weight on file to calculate BMI. BP: 120/70 Patient's last menstrual period was 09/29/2023. ASSESSMENT & PLAN ICD-10-CM 1. 27 weeks gestation of Z3A.27 POCT urinalysis dipstick manually resulted 2. Second trimester Z34.92 POCT urinalysis dipstick manually resulted 3. Gestational diabetes mellitus (GDM), antepartum, gestational diabetes method of control unspecified O24.419 US OB SCAN FOR GROWTH 4. Anemia affecting in second trimester O99.012 US OB SCAN FOR GROWTH Return OB: Patient presents today for a routine obstetrics appointment. Patient is currently 27w2d . Patient states she is doing well but has complaints of being tired due to current . Patient has verbalizes frequent movement. labor precautions was discussed/given and patient was instructed to perform kick counts three times a day. Orders Placed This Encounter Procedures US OB SCAN FOR GROWTH POCT urinalysis dipstick manually resulted Follow Up: Patient is to return to office in 2 week for routine OB appointment. Documented by Isabell Ernst LPN on behalf of: MARILEE Espinosa documented in this encounter [facility] 10-30-2022 Hospital Discharge instructions Lashawn Ordoñez RN - 10/30/2022 6:49 AM EDT Your information: Name: Batool Kingsley : 2000 Dr. Florence's Discharge Instructions for Bariatric Surgery [facility] Discharge Instructions [...] blood sugars as ordered by PCP or Anode Worker. Follow up with PCP or Anode Worker regarding diabetic medications. Make sure you take any medicines you were on for depression or anxiety. FOLLOW-UP Follow-up appointment with surgeon 10-14 days after surgery. Complete lab work prior to this appointment. Follow-up with PCP and/or Anode Worker prior to seeing surgeon. CALL [facility] [phone] IF ANY OF THE FOLLOWING OCCURS TO [...] Weapons (Notify Protective Services/Security): None Other Valuables: [place], Wallet Home Medications: None Valuables Given To: [...] through Care Everywhere.Gastric Bypass Surgery: Nuno-en-Y: Post-op (Setswana)documented in this encounter [facility] [employer] Phone: 10-30-2022 Hospital course Narrative Physician Discharge Summary Batool Kingsley [id number] Admit date: 10/29/2022 Discharge date and time: [...] Your Medications These medications were sent to [address] [phone] - [phone] [place] [address] traMADol 50 MG tablet Activity: no lifting, [...] 6:48 AM documented in this encounter [facility] [employer] Phone: 10-30-2022 History of Present illness Narrative Internal Medicine Progress Note NATHALIE=[facility] Shanta Hernandez D.O., F.A.C.O.I. Christin Mason D.O., F.A.C.O.I. Juliocesar Werner D.O. Francine Kilpatrick, MSN, CIGARETTE ROLLER, MOTORCYCLE BUILDER-C Yang Hsu, MSN, CIGARETTE ROLLER-BALL RACKER Primary Care Physician: KAELA ARELLANO APRN - BALL RACKER Admitting Physician: Deric Florence MD Admission date and time: 10/29/2022 6:02 AM Room: [address] [place] [address] Admitting diagnosis: Morbid obesity (HCC) [E66.01] Post-operative [...] reflux disease with possible hiatal hernia repair Yra-mcxniya-lcrpfyllo diabetes mellitus type 2 Anxiety Plan: Batool [...] 6:37 AM documented in this encounter [facility] [employer] Work Phone: 10-24-2022 History of Present illness Narrative Images from the original note were not included. [facility] PRE OP INSTRUCTIONS FOR Batool Kingsley [...] makeup (including no eye makeup) or nail mongolian on your fingers or toes. DO NOT wear any jewelry or piercings on day of surgery. All body piercing jewelry must be removed. Shower the night before surgery with _x__Antibacterial soap /CHG WIPES___x If you have a Living Will and Durable Power of Product Developer for Healthcare, please bring in a copy. [...] and go to information desk Please call AUTOMOTIVE SERVICE DIRECTOR if you have any further questions. Pre Admit Testing [phone] [facility] [phone] documented in this encounter [employer] Work Phone: 05-04-2022 Hospital Discharge instructions Ashlie Goyal RN - 05/04/2022 9:47 [...] the day after the test, use an wabk-ays-mvdakvz spray to numb your throat. Follow-up care [...] Where can you learn more? Go to [email or web address] and sign in to your [employer] account. Enter J454 in the Search Health Information box to learn more about Upper GI Endoscopy: What to Expect at Home. If you do not have an account, please click on the Sign Up Now link. Current as of: December 04, 2021 Content Version: 13.4 [employer]. Care instructions adapted under license by [employer]. If you have questions about a medical condition or this instruction, always ask your healthcare professional. [employer] disclaims any warranty or liability for your use of this information. documented in this encounter [facility]ON[facility] [employer] Phone: 05-04-2022 History of Present illness Narrative SBAR form completed and placed on chart. Chart with patient in transit. Images from the original note were not included. [facility] PRE OP INSTRUCTIONS FOR Batool Kingsley [...] makeup (including no eye makeup) or nail mongolian on your fingers or toes. DO NOT wear any jewelry or piercings on day of surgery. All body piercing jewelry must be removed. Shower the night before surgery with _x__Antibacterial soap /ALEXANDER WIPES TOTAL JOINT REPLACEMENT/HYSTERECTOMY PATIENTS ONLY---Remember to bring Blood Bank bracelet to the hospital on the day of surgery. If you have a Living Will and Durable Power of Product Developer for Healthcare, please bring in a copy. [...] safety of all patients. Other Please call AUTOMOTIVE SERVICE DIRECTOR if you have any further questions. Pre Admit Testing [phone] [facility] [phone] documented in this encounter FLORIDALMA GIPSON [employer] Phone: Evaluation note Diagnosis DUB (dysfunctional uterine bleeding)- Primary Other disorder of menstruation and other abnormal bleeding from female genital tract documented in this encounter [employer] Phone: evaluation note* Diagnosis Gastroesophageal reflux disease- Primary Esophageal reflux Morbid obesity due to excess calories (HCC) documented in this encounter [employer] Phone: evaluation note* Diagnosis Morbid obesity (HCC)- Primary Morbid obesity Preop testing- Primary Preoperative examination, unspecified 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 Morbid obesity (HCC) Morbid obesity documented in this encounter [employer] Phone: evaluation note* Diagnosis S/P gastric bypass- Primary Bariatric surgery status Morbid obesity (HCC) Morbid obesity Post-operative state Other postprocedural status Morbid obesity (HCC) Morbid obesity Post-operative state Other postprocedural status documented in this encounter [employer] Phone: evaltzzgtx note* Diagnosis 27 weeks gestation of Second trimester state, incidental Gestational diabetes mellitus (GDM), antepartum, gestational diabetes method of control unspecified Anemia affecting in second trimester [facility] Attachments The following attachments cannot be sent through Care Everywhere. * AUB (Abnormal Uterine Bleeding) (Setswana) documented in this [facility]ee Phone: Summary Purpose Family History No Family History Records FoundNo Family History Records FoundNo Family History Records FoundNo Family History Records FoundNo Family History Records FoundNo Family History Records FoundNo Family History Records Found Advance Directives Latest Code Status on File Code Status [...] section and content) DATE CREATED AUTHOR 07/16/2020 [facility] DATE CREATED AUTHOR AUTHOR'S ORGANIZ ATION 05/05/2022 [facility] DATE CREATED AUTHOR AUTHOR'S ORGANIZ ATION 02/07/2023 [facility] DATE CREATED AUTHOR AUTHOR'S ORGANIZ ATION 06/04/2023 [facility] DATE CREATED AUTHOR AUTHOR'S ORGANIZ ATION 02/19/2024 [facility] DATE CREATED AUTHOR AUTHOR'S ORGANIZ ATION 03/19/2024 [facility] DATE CREATED AUTHOR AUTHOR'S ORGANIZ ATION 04/09/2024 [facility] EPIC Reason for Visit (unrecogniz ed section and content) Reason Comments Vaginal Bleeding 4 pad per hour, larg e clots present Specialty Diagnoses / Procedures Referred By Geronimo reardon Referred To Contact Diagnoses Gastroesophageal reflux disease Gastroesophageal reflux disease [K21.9] Procedures MN EGD TRANSORAL BIOPSY SINGLE/MULTIPLE MN EGD TRANSORAL BIOPSY SINGLE/MULTIPLE MN ESOPHAGOGASTRODUODENOSCOPY TRANSORAL DIAGNOSTIC MN EGD BALLOON DILATION ESOPHAGUS <30 MM DIAM EGD ESOPHAGOGASTRODUODENOSCOPY Deric Florence MD [address] [place] [address] [facility] [address] [place] [address] Referral ID Status Reason Start Date Expiration Date Visits Re quested Visits Authorized [id number] 1 1 Specialty Diagnoses / Procedures Referred By Geronimo reardon Referred To Contact Diagnoses Morbid obesity (HCC) Morbid obesity (HCC) [E66.01] Procedures MN LAPS GSTR RSTCV PX W/BYP NUNO-EN-Y LIMB <150 CM GASTRIC BYPASS NUNO-EN-Y LAPAROSCOPIC Deric Florence MD [address] [place] [address] [facility] [address] [place] [address] Referral ID Status Reason Start Date Expiration Date Visits Re quested Visits Authorized [id number] 1 1 Reason Comments Routine Visit Continuous Active and Recently Administ ered Medications [...] 100 mL IVPB (COMPLETED) 3,000 mg, IntraVENous, QUARRY MANAGER TO O.R., 1 dose, On Sat10/29/22 at [...] parameters not met)1621 (Not Given - Provider: Dnea Fu RN - Reason: Order parameters not [...] Fu RN) 0028 (Given - Provider: Jennifer uHff RN)0516 (Given - Provider: Jennifer Huff RN)1215 [...] of order., Post-op bupivacaine-EPINEPHrine PF (MARCAINE-w/EPINEPHrine) 0.25% -[id number] injection (CANCELED) PRN, Starting on Sat10/29/22 at [...] Hebert, MELANIA)1010 (Given - Provider: Khushi Hebert, RN) magnesium sulfate 1000 mg in dextrose [...] RN) 0356 (Given - Provider: Isak Bradshaw, MELANIA)0856 (See Alternative - Provider: Helen Bradford, MELANIA) morphine injection 4 mg(Linked Group 2) 4 [...]
Care Teams (unrecognized sec tion and content) It Systems Manager Relationship Specialty Start Date End Date Kaela Arellano APRN - BALL RACKER [address] [place] [address] PCP - General Certified Nurse Practitioner 04/27/22 It Systems Manager Relationship Specialty Start Date End Date Kaela Arellano APRN - CNP [phone] [facility] [address] PCP - General Certified Nurse Practitioner 09/14/22 It Systems Manager Relationship Specialty Start Date End Date Kaela Arellano APRN - BALL RACKER [address] [facility] [address] PCP - General Certified Nurse Practitioner 09/14/22 [...] BE BASED ON THE PRIMARY CLINICAL RECORDS. [employer] provides no warranty or guarantee of the accuracy or completeness of information in this document.
[2024-04-21 16:16] LABS: Basophils Percent Auto 0.2 % (0.2-2.0); Eosinophils Absolute Auto 0.2 10^3/uL (0.0-0.7); Eosinophils Percent Auto 1.7 % (0.9-7.0); Hematocrit 33.8 % (36.0-48.0); Hemoglobin 11.6 g/dL (12.0-16.0); Immature Granulocytes Abs Auto 0.06 10^3/uL (0.00-0.03); Immature Granulocytes Pct Auto 0.6 % (0.0-0.5); Lymphocytes Absolute Auto 3.1 10^3/uL (1.2-3.8); Lymphocytes Percent Auto 31.7 % (20.5-60.0); Mean Corpuscular HGB Conc 34.3 g/dL (29.9-35.2); Mean Corpuscular Volume 93.1 fL (81.0-99.0); Mean Platelet Volume 10.2 fL (9.5-13.5); Monocytes Absolute Auto 0.5 10^3/uL (0.3-0.8); Monocytes Percent Auto 5.1 % (1.7-12.0); Neutrophils Absolute Auto 5.9 10^3/uL (1.4-6.5); Neutrophils Percent Auto 60.7 % (43.0-75.0); Platelet Count 249 10^3/uL (150-450); Red Blood Count 3.63 10^6/uL (4.20-5.40); Red Cell Distribution Width 12.8 % (11.0-15.0); White Blood Count 9.6 10^3/uL (4.0-11.0)
== END 2024-04-21 15:53 | disposition home or self-care (01) ==
PROVIDERS: Visit Provider Obstetrics & Gynecology
DX: O99.013 Anemia complicating pregnancy, third trimester (principal)
CPT/HCPCS: 36415; 85025

== ENCOUNTER 2024-05-06 14:46 | Outpatient (OUT) | payer OTHER, SELFPAY ==
--- NOTE | 2024-05-06 14:49 | US_ITS ---
[address] [address] Patient Name: CARLO KINGSLEY MRN: [id number] date: 2000 Sex: F Assigned Patient Location: [facility] Current Patient Location: [facility] Accession/Order Number: [id number] Exam Date: 05/06/2024 14:51 Report Date: 05/06/2024 15:49 At the request of: STEPHANIE WEST Procedure: US OB growth EXAMINATION: US OB growth HISTORY: ELEVATED GLUCOSE, ABNORMAL TSH COMPARISON: 04/07/2024 FINDINGS: Heart Rate: 144 bpm Amniotic Fluid Volume: 12.2 cm, largest fluid pocket 3.8 cm Number: 1 Position: CEPHALIC BIOMETRY: BPD: 7.90 cm; 31 weeks 5 days; 48.40 % HC: 29.35 cm; 32 weeks 3 days; 38.60 % AC: 27.91 cm; 32 weeks 0 days; 63.70 % FL: 6.12 cm; 31 weeks 5 days; 45.80 % EFW: 1830.82 g; 55 %, 4 lbs. 2 oz. FL/AC: 21.93 FL/BPD: 77.47 HC/AC: 1.05 GESTATIONAL AGE: Age by EDC: 31 weeks 3 days KATELIN by EDC: 2024-07-05 Age by US: 32 weeks 0 days KATELIN by US: 2024-07-01 US/US OB growth IMPRESSION: Normal interval growth Electronically authenticated by: HAFSA LAWRENCE Date: 05/06/2024 15:49
== END 2024-05-06 14:47 | disposition home or self-care (01) ==
LOC: NOMS 14:46
PROVIDERS: Visit Provider Obstetrics & Gynecology
DX: O26.893 Other specified pregnancy related conditions, third trimester (principal); R73.09 Other abnormal glucose; R79.89 Other specified abnormal findings of blood chemistry; Z3A.31 31 weeks gestation of pregnancy
CPT/HCPCS: 76816

== ENCOUNTER 2024-05-30 07:33 | Outpatient (OUT) | payer OTHER, SELFPAY ==
--- OUTSIDE RECORDS SUMMARY | 2024-05-30 07:37 | XMS_ITS | CCD ---
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 #### V ITB1, ZINC #### [facility] [address] [place] [address] #### B12, FOL, CMP, PREALB, ANDREZ, CBCD #### [facility] [address] [place] [address] Glucose [Mass/Vol] 103 mg/dL High 65-99 [facility] Comment on above: Order Comment: FAMaximo R STIVENULTS TO DR FLORENCE: [phone] Performed By: #### V ITB1, ZINC #### [facility] [address] [place] [address] #### B12, FOL, CMP, PREALB, ANDREZ, CBCD #### [facility] [address] [place] [address] Potassium [Moles/Vol] 3.6 mmol/L Normal 3.4-5.1 [facility] Comment on above: Order Comment: FAMaximo R ESULTS TO DR FLORENCE: [phone] Performed By: #### V ITB1, ZINC #### [facility] [address] [place] [address] #### B12, FOL, CMP, PREALB, ANDREZ, CBCD #### [facility] [address] [place] [address] Protein [Mass/Vol] 6.5 g/dL Normal 6.0-8.0 [facility] Comment on above: Order Comment: JENNIFER R ESULTS TO DR FLORENCE: [phone] Performed By: #### V ITB1, ZINC #### [facility] [address] [place] [address] #### B12, FOL, CMP, PREALB, ANDREZ, CBCD #### [facility] [address] [place] [address] Sodium [Moles/Vol] 138 mmol/L Normal 136-145 [facility] Comment on above: Order Comment: JENNIFER COLIN TO DR FLORENCE: [phone] Performed By: #### V ITB1, ZINC #### [facility] [address] [place] [address] #### B12, FOL, CMP, PREALB, ANDREZ, CBCD #### [facility] [address] [place] [address] Urea nitrogen [Mass/Vol] 8 mg/dL Low - [facility] Comment on above: Order Comment: JENINFER COLIN TO DR FLORENCE: [phone] Performed By: #### V ITB1, ZINC #### [facility] [address] [place] [address] #### B12, FOL, CMP, PREALB, ANDREZ, CBCD #### [facility] [address] [place] [address] FERRITINon 12-14-2022 Ferritin [Mass/Vol] 40.9 ng/mL Normal 7.3-307.3 [facility] Comment on above: Order Comment: JENNIFER COLIN TO DR FLORENCE: [phone] Performed By: #### V ITB1, ZINC #### [facility] [address] [place] [address] #### B12, FOL, CMP, PREALB, ANDREZ, CBCD #### [facility] [address] [place] [address] FOLIC ACIDon 12-14-2022 FOLIC ACID 16.04 ng/mL Normal 5.38-24.00 [facility] Comment on above: Order Comment: JENNIFER COLIN TO DR FLORENCE: [phone] Result Comment: 0.35 - 3.7 ng/mL - Folate Deficiency 3.38 - 5.38 ng/mL - Indeterminate > 5.38 ng/mL - Normal Performed By: #### V ITB1, ZINC #### [facility] [address] [place] [address] #### B12, FOL, CMP, PREALB, ANDREZ, CBCD #### [facility] [address] [place] [address] PREALBUMINon 12-14-2022 Prealbumin [Mass/Vol] 16 mg/dL Normal 10-40 [facility] Comment on above: Order Comment: FAX R ESULTS TO DR FLORENCE: [phone] Performed By: #### V ITB1, ZINC #### [facility] [address] [place] [address] #### B12, FOL, CMP, PREALB, ANDREZ, CBCD #### [facility] [address] [place] [address] VITAMIN B12on 12-14-2022 Cobalamin (Vitamin B12) [Mass/Vol] 261 pg/mL Normal 211-911 [facility] Comment on above: Order Comment: FAX R ESULTS TO DR FLORENCE: [phone] Result Comment: 247 - 911 pg/mL - Normal, Vitamin B12 Sufficiency Performed By: #### V ITB1, ZINC #### [facility] [address] [place] [address] #### B12, FOL, CMP, PREALB, ANDREZ, CBCD #### [facility] [address] [place] [address] CBC with DIFFERENTIALon Basophils (Bld) [#/Vol] 0.0 10*3/uL Normal 0.0-0.1 [facility] Comment on above: Performed By: #### V ITB1, ZINC #### [facility] [address] [place] [address] #### B12, FOL, CMP, PREALB, ANDREZ, CBCD #### [facility] [address] [place] [address] Basophils/100 WBC (Bld) 0.6 % Normal 0.0-1.0 [facility] Comment on above: Performed By: #### V ITB1, ZINC #### [facility] [address] [place] [address] #### B12, FOL, CMP, PREALB, ANDREZ, CBCD #### [facility] [address] [place] [address] Eosinophils (Bld) [#/Vol] 0.4 10*3/uL Normal 0.0-0.4 [facility] Comment on above: Performed By: #### V ITB1, ZINC #### [facility] [address] [place] [address] #### B12, FOL, CMP, PREALB, ANDREZ, CBCD #### [facility] [address] [place] [address] Eosinophils/100 WBC (Bld) 6.0 % High 1.0-4.0 [facility] Comment on above: Performed By: #### V ITB1, ZINC #### [facility] [address] [place] [address] #### B12, FOL, CMP, PREALB, ANDREZ, CBCD #### [facility] [address] [place] [address] Hematocrit (Bld) [Volume fraction] 42.2 % Normal 37.0-47.0 [facility] Comment on above: Performed By: #### V ITB1, ZINC #### [facility] [address] [place] [address] #### B12, FOL, CMP, PREALB, ANDREZ, CBCD #### [facility] [address] [place] [address] Hemoglobin (Bld) [Mass/Vol] 14.0 g/dL Normal 12.0-16.0 [facility] Comment on above: Performed By: #### V ITB1, ZINC #### [facility] [address] [place] [address] #### B12, FOL, CMP, PREALB, ANDREZ, CBCD #### [facility] [address] [place] [address] IG # 0.0 10*3/uL Normal 0.0-0.1 [facility] Comment on above: Performed By: #### V ITB1, ZINC #### [facility] [address] [place] [address] #### B12, FOL, CMP, PREALB, ANDREZ, CBCD #### [facility] [address] [place] [address] IG % 0.2 % Normal 0.0-1.0 [facility] Comment on above: Performed By: #### V ITB1, ZINC #### [facility] [address] [place] [address] #### B12, FOL, CMP, PREALB, ANDREZ, CBCD #### [facility] [address] [place] [address] Lymphocytes (Bld) [#/Vol] 3.4 10*3/uL Normal 1.3-4.4 [facility] Comment on above: Performed By: #### V ITB1, ZINC #### [facility] [address] [place] [address] #### B12, FOL, CMP, PREALB, ANDREZ, CBCD #### [facility] [address] [place] [address] 28467 Lymphocytes/100 WBC (Bld) 53.6 % High 27.0-41.0 [facility] Comment on above: Performed By: #### V ITB1, ZINC #### [facility] [address] [place] [address] #### B12, FOL, CMP, PREALB, ANDREZ, CBCD #### [facility] [address] [place] [address] 12552 MCV (RBC) [Entitic vol] 88.5 fL Normal 81.0-99.0 [facility] Comment on above: Performed By: #### V ITB1, ZINC #### [facility] [address] [place] [address] #### B12, FOL, CMP, PREALB, ANDREZ, CBCD #### [facility] [address] [place] [address] 69546 MEAN CORPUSCULAR HGB 29.4 pg Normal 27.0-31.0 [facility] Comment on above: Performed By: #### V ITB1, ZINC #### [facility] [address] #### B12, FOL, CMP, PREALB, ANDREZ, CBCD #### [facility] [address] [place] [address]240 MEAN CORPUSCULAR HGB CONC 33.2 g/dl Normal 33.0-37.0 [facility] Comment on above: Performed By: #### V ITB1, ZINC #### [facility] [address] [place] [address] #### B12, FOL, CMP, PREALB, ANDREZ, CBCD #### [facility] [address] [place] [address]0976 Monocytes (Bld) [#/Vol] 0.3 10*3/uL Normal 0.1-1.0 [facility] Comment on above: Performed By: #### V ITB1, ZINC #### [facility] [address] [place] [address] #### B12, FOL, CMP, PREALB, ANDREZ, CBCD #### [facility] [address] [place] [address] Monocytes/100 WBC (Bld) 4.8 % Normal 3.0-9.0 [facility] Comment on above: Performed By: #### V ITB1, ZINC #### [facility] [address] [place] [address] #### B12, FOL, CMP, PREALB, ANDREZ, CBCD #### [facility] [address] [place] [address]255 Neutrophils (Bld) [#/Vol] 2.2 10*3/uL Low 2.3-7.9 [facility] Comment on above: Performed By: #### V ITB1, ZINC #### [facility] [address] [place] [address] #### B12, FOL, CMP, PREALB, ANDREZ, CBCD #### [facility] [address] [place] [address] 09428 Neutrophils/100 WBC (Bld) 34.8 % Low 47.0-73.0 [facility] Comment on above: Performed By: #### V ITB1, ZINC #### [facility] [address] [place] [address] #### B12, FOL, CMP, PREALB, ANDREZ, CBCD #### [facility] [address] [place] [address] 68097 NUCLEATED RED BLOOD CELL 0.0 10*3/uL Normal 0.0-0.0 [facility] Comment on above: Performed By: #### V ITB1, ZINC #### [facility] [address] [place] [address] #### B12, FOL, CMP, PREALB, ANDREZ, CBCD #### [facility] [address] [place] [address] 67375 NUCLEATED RED BLOOD CELL 0.0 % Normal 0.0-0.0 [facility] Comment on above: Performed By: #### V ITB1, ZINC #### [facility] [address] [place] [address] #### B12, FOL, CMP, PREALB, ANDREZ, CBCD #### [facility] [address] [place] [address] 42275 PLATELET COUNT AUTOMATED 265 10*3/uL Normal 130-400 [facility] Comment on above: Performed By: #### V ITB1, ZINC #### [facility] [address] [place] [address] #### B12, FOL, CMP, PREALB, ANDREZ, CBCD #### [facility] [address] [place] [address] 81734 Platelet mean volume (Bld) [Entitic vol] 11.3 fL Normal 9.6-12.3 [facility] Comment on above: Performed By: #### V ITB1, ZINC #### [facility] [address] [place] [address] #### B12, FOL, CMP, PREALB, ANDREZ, CBCD #### [facility] [address] [place] [address] RBC (Bld) [#/Vol] 4.77 10*6/uL Normal 4.10-5.10 [facility] Comment on above: Performed By: #### V ITB1, ZINC #### [facility] [address] [place] [address] #### B12, FOL, CMP, PREALB, ANDREZ, CBCD #### [facility] [address] [place] [address] RED CELL DISTRI WIDTH 13.9 % Normal 0-14.5 [facility] Comment on above: Performed By: #### V ITB1, ZINC #### [facility] [address] [place] [address] #### B12, FOL, CMP, PREALB, ANDREZ, CBCD #### [facility] [address] [place] [address] 82863 WBC (Bld) [#/Vol] 6.3 10*3/uL Normal 4.8-10.8 [facility] Comment on above: Performed By: #### V ITB1, ZINC #### [facility] [address] [place] [address] #### B12, FOL, CMP, PREALB, ANDREZ, CBCD #### [facility] [address] [place] [address] COMPREHENSIVE METABOLIC PANE Evan 12-03-2022 Albumin [Mass/Vol] 4.0 g/dL Normal 3.4-5.0 [facility] Comment on above: Performed By: #### V ITB1, ZINC #### [facility] [address] [place] [address] #### B12, FOL, CMP, PREALB, ANDREZ, CBCD #### [facility] [address] [place] [address] 10844 ALP [Catalytic activity/Vol] 69 U/L Normal 46-116 [facility] Comment on above: Performed By: #### V ITB1, ZINC #### [facility] [address] #### B12, FOL, CMP, PREALB, ANDREZ, CBCD #### [facility] [address] [place] [address] 42861 ALT [Catalytic activity/Vol] 79 U/L High 10-49 [facility] Comment on above: Performed By: #### V ITB1, ZINC #### [facility] [address] [place] [address] #### B12, FOL, CMP, PREALB, ANDREZ, CBCD #### [facility] [address] [place] [address] 47882 AST [Catalytic activity/Vol] 31 U/L Normal 0-34 [facility] Comment on above: Performed By: #### V ITB1, ZINC #### [facility] [address] [place] [address] #### B12, FOL, CMP, PREALB, ANDREZ, CBCD #### [facility] [address] [place] [address] 41301 Bilirubin [Mass/Vol] 0.4 mg/dL Normal 0.3-1.2 [facility] Comment on above: Performed By: #### V ITB1, ZINC #### [facility] [address] [place] [address] #### B12, FOL, CMP, PREALB, ANDREZ, CBCD #### [facility] [address] [place] [address] 49550 CALCIUM,TOTAL 9.1 md/dL Normal 8.7-10.4 [facility] Comment on above: Performed By: #### V ITB1, ZINC #### [facility] [address] [place] [address] #### B12, FOL, CMP, PREALB, ANDREZ, CBCD #### [facility] [address] [place] [address] Chloride [Moles/Vol] 109 mmol/L High 98-107 [facility] Comment on above: Performed By: #### V ITB1, ZINC #### [facility] [address] [place] [address] #### B12, FOL, CMP, PREALB, ANDREZ, CBCD #### [facility] [address] [place] [address] CO2 [Moles/Vol] 25 mmol/L Normal 20-31 [facility] Comment on above: Performed By: #### V ITB1, ZINC #### [facility] [address] [place] [address] #### B12, FOL, CMP, PREALB, ANDREZ, CBCD #### [facility] [address] [place] [address] Creatinine [Mass/Vol] 0.56 mg/dL Normal 0.55-1.02 [facility] Comment on above: Performed By: #### V ITB1, ZINC #### [facility] [address] [place] [address] #### B12, FOL, CMP, PREALB, ANDREZ, CBCD #### [facility] [address] [place] [address] EST GLOM FILT > 60 Normal [facility] Comment on above: Result Comment: Result [...] #### V ITB1, ZINC #### [facility] [address] [place] [address] #### B12, FOL, CMP, PREALB, ANDREZ, CBCD #### [facility] [address] [place] [address] ESTIMATED GLOM FILT RATE > 60 Normal [facility] Comment on above: Performed By: #### V ITB1, ZINC #### [facility] [address] [place] [address] #### B12, FOL, CMP, PREALB, ANDREZ, CBCD #### [facility] [address] [place] [address] 06085 Glucose [Mass/Vol] 103 mg/dL High 65-99 [facility] Comment on above: Performed By: #### V ITB1, ZINC #### [facility] [address] [place] [address] #### B12, FOL, CMP, PREALB, ANDREZ, CBCD #### [facility] [address] [place] [address] 35811 Potassium [Moles/Vol] 3.8 mmol/L Normal 3.4-5.1 [facility] Comment on above: Performed By: #### V ITB1, ZINC #### [facility] [address] [place] [address] #### B12, FOL, CMP, PREALB, ANDREZ, CBCD #### [facility] [address] [place] [address] Protein [Mass/Vol] 6.7 g/dL Normal 6.0-8.0 [facility] Comment on above: Performed By: #### V ITB1, ZINC #### [facility] [address] [place] [address] #### B12, FOL, CMP, PREALB, ANDREZ, CBCD #### [facility] [address] [place] 750440 Sodium [Moles/Vol] 141 mmol/L Normal 136-145 [facility] Comment on above: Performed By: #### V ITB1, ZINC #### [facility] [address] [place] [address] #### B12, FOL, CMP, PREALB, ANDREZ, CBCD #### [facility] [address] [place] [address] Urea nitrogen [Mass/Vol] 10 mg/dL Normal 9-23 [facility] Comment on above: Performed By: #### V ITB1, ZINC #### [facility] [address] [place] [address] #### B12, FOL, CMP, PREALB, ANDREZ, CBCD #### [facility] [address] [place] [address] [id number] 12-03-2022 ESTIMATED AVERAGE GLUCOSE 94 Normal [facility] Comment on above: Performed By: #### V ITB1, ZINC #### [facility] [address] [place] [address] #### B12, FOL, CMP, PREALB, ANDREZ, CBCD #### [facility] [address] [place] [address] HbA1c (Bld) [Mass fraction] 4.9 % Normal 4.8-5.6 [facility] Comment on above: Result Comment: Standarization of method based on National Glycohemoglobin Standardization Program (NGSP). HEMOGLOBIN A1c(%) DEGREE of GLUCOSE CONTROL 5.7-6.4% Prediabetes range >6.4% Diagnosis of Diabetes <7% Glycemic control for adults with Diabetes Performed By: #### V ITB1, ZINC #### [facility] [address] [place] [address] #### B12, FOL, CMP, PREALB, ANDREZ, CBCD #### [facility] [address] [place] [address] 75076 INSULINon 12-03-2022 INSULIN 14.2 mU/L Normal 2.6-37.6 [facility] Comment on above: Performed By: #### V ITB1, ZINC #### [facility] [address] [place] [address] #### B12, FOL, CMP, PREALB, ANDREZ, CBCD #### [facility] [address] [place] [address] 03304 LIPID PANEL CHOLESTEROL/HDLo n 12-03-2022 Cholesterol [Mass/Vol] 113 mg/dL Normal <200 [facility] Comment on above: Performed By: #### V ITB1, ZINC #### [facility] [address] [place] [address] #### B12, FOL, CMP, PREALB, ANDREZ, CBCD #### [facility] [address] [place] [address] 75045 Cholesterol in HDL [Mass/Vol] 26 mg/dL Low 40-60 [facility] Comment on above: Performed By: #### V ITB1, ZINC #### [facility] [address] [place] [address] #### B12, FOL, CMP, PREALB, ANDREZ, CBCD #### [facility] [address] [place] [address] 80918 Cholesterol in LDL [Mass/Vol] 52 mg/dL Normal 9-159 [facility] Comment on above: Performed By: #### V ITB1, ZINC #### [facility] [address] [place] [address] #### B12, FOL, CMP, PREALB, ANDREZ, CBCD #### [facility] [address] [place] [address] 73561 Cholesterol.total/Chol esterol in HDL [Mass ratio] 4.3 {ratio} Normal [facility] Comment on above: Performed By: #### V ITB1, ZINC #### [facility] [address] [place] [address] #### B12, FOL, CMP, PREALB, ANDREZ, CBCD #### [facility] [address] [place] [address] Triglyceride [Mass/Vol] 176 mg/dL High <150 [facility] Comment on above: Result Comment: TRIGLYCERIDE RISK ASSESSMENT: 150-199 mg/dl BORDERLINE HIGH >200 mg//dl HIGH . Performed By: #### V ITB1, ZINC #### [facility] [address] [place] [address] #### B12, FOL, CMP, PREALB, ANDREZ, CBCD #### [facility] [address] [place] [address] VLDL CHOLESTEROL 35 mg/dL Normal 6-40 [facility] Comment on above: Performed By: #### V ITB1, ZINC #### [facility] [address] [place] [address] #### B12, FOL, CMP, PREALB, ANDREZ, CBCD #### [facility] [address] [place] [address] CBC with DIFFERENTIALon 05-0 -2022 Basophils (Bld) [#/Vol] 0.0 10*3/uL Normal 0.0-0.1 [facility] Comment on above: Order Comment: FAX R ESULTS TO DR FLORENCE: [phone] Performed By: #### V ITB1, ZINC #### [facility] [address] [place] [address] #### B12, FOL, CMP, PREALB, ANDREZ, CBCD #### [facility] [address] [place] [address] 81200 Basophils/100 WBC (Bld) 0.3 % Normal 0.0-1.0 [facility] Comment on above: Order Comment: FAX R ESULTS TO DR FLORENCE: [phone] Performed By: #### V ITB1, ZINC #### [facility] [address] [place] [address] #### B12, FOL, CMP, PREALB, ANDREZ, CBCD #### [facility] [address] [place] [address] Eosinophils (Bld) [#/Vol] 0.2 10*3/uL Normal 0.0-0.4 [facility] Comment on above: Order Comment: FAX R ESULTS TO DR FLORENCE: [phone] Performed By: #### V ITB1, ZINC #### [facility] [address] [place] [address] #### B12, FOL, CMP, PREALB, ANDREZ, CBCD #### [facility] [address] [place] [address] Eosinophils/100 WBC (Bld) 3.2 % Normal 1.0-4.0 [facility] Comment on above: Order Comment: FAX R ESULTS TO DR FLORENCE: [phone] Performed By: #### V ITB1, ZINC #### [facility] [address] [place] [address] #### B12, FOL, CMP, PREALB, ANDREZ, CBCD #### [facility] [address] [place] [address] 63305 Hematocrit (Bld) [Volume fraction] 43.8 % Normal 37.0-47.0 [facility] Comment on above: Order Comment: FAX R ESULTS TO DR FLORENCE: [phone] Performed By: #### V ITB1, ZINC #### [facility] [address] [place] [address] #### B12, FOL, CMP, PREALB, ANDREZ, CBCD #### [facility] [address] [place] [id number] Hemoglobin (Bld) [Mass/Vol] 14.3 g/dL Normal 12.0-16.0 [facility] Comment on above: Order Comment: FAX R ESULTS TO DR FLORENCE: [phone] Performed By: #### V ITB1, ZINC #### [facility] [address] [place] [address] #### B12, FOL, CMP, PREALB, ANDREZ, CBCD #### [facility] [address] [place] [address] IG # 0.1 10*3/uL Normal 0.0-0.1 [facility] Comment on above: Order Comment: FAX R ESULTS TO DR FLORENCE: [phone] Performed By: #### V ITB1, ZINC #### [facility] [address] [place] [address] #### B12, FOL, CMP, PREALB, ANDREZ, CBCD #### [facility] [address] [place] [address] IG % 0.7 % Normal 0.0-1.0 [facility] Comment on above: Order Comment: FAX R ESULTS TO DR FLORENCE: [phone] Performed By: #### V ITB1, ZINC #### [facility] [address] [place] [address] #### B12, FOL, CMP, PREALB, ANDREZ, CBCD #### [facility] [address] [place] [address] Lymphocytes (Bld) [#/Vol] 3.5 10*3/uL Normal 1.3-4.4 [facility] Comment on above: Order Comment: FAX R ESULTS TO DR FLORENCE: [phone] Performed By: #### V ITB1, ZINC #### [facility] [address] [place] [address] #### B12, FOL, CMP, PREALB, ANDREZ, CBCD #### [facility] [address] [place] [address] Lymphocytes/100 WBC (Bld) 46.7 % High 27.0-41.0 [facility] Comment on above: Order Comment: FAX R ESULTS TO DR FLORENCE: [phone] Performed By: #### V ITB1, ZINC #### [facility] [address] [place] [address] #### B12, FOL, CMP, PREALB, ANDREZ, CBCD #### [facility] [address] [place] [address] MCV (RBC) [Entitic vol] 88.1 fL Normal 81.0-99.0 [facility] Comment on above: Order Comment: FAX R ESULTS TO DR FLORENCE: [phone] Performed By: #### V ITB1, ZINC #### [facility] [address] [place] [address] #### B12, FOL, CMP, PREALB, ANDREZ, CBCD #### [facility] [address] [place] [address] MEAN CORPUSCULAR HGB 28.8 pg Normal 27.0-31.0 [facility] Comment on above: Order Comment: FAX R ESULTS TO DR FLORENCE: [phone] Performed By: #### V ITB1, ZINC #### [facility] [address] [place] [address] #### B12, FOL, CMP, PREALB, ANDREZ, CBCD #### [facility] [address] [place] [address] MEAN CORPUSCULAR HGB CONC 32.6 g/dl Low 33.0-37.0 [facility] Comment on above: Order Comment: FAX R ESULTS TO DR FLORENCE: [phone] Performed By: #### V ITB1, ZINC #### [facility] [address] [place] [address] #### B12, FOL, CMP, PREALB, ANDREZ, CBCD #### [facility] [address] [place] [address] Monocytes (Bld) [#/Vol] 0.3 10*3/uL Normal 0.1-1.0 [facility] Comment on above: Order Comment: FAX R ESULTS TO DR FLORENCE: [phone] Performed By: #### V ITB1, ZINC #### [facility] [address] [place] [address] #### B12, FOL, CMP, PREALB, ANDREZ, CBCD #### [facility] [address] [place] [address] Monocytes/100 WBC (Bld) 4.3 % Normal 3.0-9.0 [facility] Comment on above: Order Comment: FAX R ESULTS TO DR FLORENCE: [phone] Performed By: #### V ITB1, ZINC #### [facility] [address] [place] [address] #### B12, FOL, CMP, PREALB, ANDREZ, CBCD #### [facility] [address] [place] [address] Neutrophils (Bld) [#/Vol] 3.4 10*3/uL Normal 2.3-7.9 [facility] Comment on above: Order Comment: FAX R ESULTS TO DR FLORENCE: [phone] Performed By: #### V ITB1, ZINC #### [facility] [address] [place] [address] #### B12, FOL, CMP, PREALB, ANDREZ, CBCD #### [facility] [address] [place] [address] Neutrophils/100 WBC (Bld) 44.8 % Low 47.0-73.0 [facility] Comment on above: Order Comment: FAX R ESULTS TO DR FLORENCE: [phone] Performed By: #### V ITB1, ZINC #### [facility] [address] [place] [address] #### B12, FOL, CMP, PREALB, ANDREZ, CBCD #### [facility] [address] [place] [address] NUCLEATED RED BLOOD CELL 0.0 10*3/uL Normal 0.0-0.0 [facility] Comment on above: Order Comment: FAX R ESULTS TO DR FLORENCE: Performed By: #### V ITB1, ZINC #### [facility] [address] [place] [address] #### B12, FOL, CMP, PREALB, ANDREZ, CBCD #### [facility] [address] [place] [address] NUCLEATED RED BLOOD CELL 0.0 % Normal 0.0-0.0 [facility] Comment on above: Order Comment: FAX R ESULTS TO DR FLORENCE: Performed By: #### V ITB1, ZINC #### [facility] [address] [place] [address] #### B12, FOL, CMP, PREALB, ANDREZ, CBCD #### [facility] [address] [place] [address] PLATELET COUNT AUTOMATED 347 10*3/uL Normal 130-400 [facility] Comment on above: Order Comment: FAX R ESULTS TO DR FLORENCE: Performed By: #### V ITB1, ZINC #### [facility] [address] [place] [address] #### B12, FOL, CMP, PREALB, ANDREZ, CBCD #### [facility] [address] [place] [address] Platelet mean volume (Bld) [Entitic vol] 9.9 fL Normal 9.6-12.3 [facility] Comment on above: Order Comment: FAX R ESULTS TO DR FLORENCE: Performed By: #### V ITB1, ZINC #### [facility] [address] [place] [address] #### B12, FOL, CMP, PREALB, ANDREZ, CBCD #### [facility] [address] [place] [address] RBC (Bld) [#/Vol] 4.97 10*6/uL Normal 4.10-5.10 [facility] Comment on above: Order Comment: FAX R ESULTS TO DR FLORENCE: Performed By: #### V ITB1, ZINC #### [facility] [address] [place] [address] #### B12, FOL, CMP, PREALB, ANDREZ, CBCD #### [facility] [address] [place] [address] RED CELL DISTRI WIDTH 13.2 % Normal 0-14.5 [facility] Comment on above: Order Comment: FAX R ESULTS TO DR FLORENCE: Performed By: #### V ITB1, ZINC #### [facility] [address] [place] [address] #### B12, FOL, CMP, PREALB, ANDREZ, CBCD #### [facility] [address] [place] [address] WBC (Bld) [#/Vol] 7.5 10*3/uL Normal 4.8-10.8 [facility] Comment on above: Order Comment: FAX R ESULTS TO DR FLORENCE: [phone] Performed By: #### V ITB1, ZINC #### [facility] [address] [place] [address] #### B12, FOL, CMP, PREALB, ANDREZ, CBCD #### [facility] [address] [place] [address] COMPREHENSIVE METABOLIC PANE Evan 11-06-2022 Albumin [Mass/Vol] 4.2 g/dL Normal 3.4-5.0 [facility] Comment on above: Order Comment: FAX R ESULTS TO DR FLORENCE: [phone] Performed By: #### V ITB1, ZINC #### [facility] [address] [place] [address] #### B12, FOL, CMP, PREALB, ANDREZ, CBCD #### [facility] [address] [place] [address] ALP [Catalytic activity/Vol] 59 U/L Normal 46-116 [facility] Comment on above: Order Comment: FAX R ESULTS TO DR FLORENCE: Performed By: #### V ITB1, ZINC #### [facility] [address] [place] [address] #### B12, FOL, CMP, PREALB, ANDREZ, CBCD #### [facility] [address] [place] [address] ALT [Catalytic activity/Vol] 30 U/L Normal 10-49 [facility] Comment on above: Order Comment: FAX R ESULTS TO DR FLORENCE: Performed By: #### V ITB1, ZINC #### [facility] [address] [place] [address] #### B12, FOL, CMP, PREALB, ANDREZ, CBCD #### [facility] [address] [place] [address] AST [Catalytic activity/Vol] 20 U/L Normal 0-34 [facility] Comment on above: Order Comment: FAX R ESULTS TO DR FLORENCE: Performed By: #### V ITB1, ZINC #### [facility] [address] [place] [address] #### B12, FOL, CMP, PREALB, ANDREZ, CBCD #### [facility] [address] [place] [address] Bilirubin [Mass/Vol] 0.5 mg/dL Normal 0.3-1.2 [facility] Comment on above: Order Comment: FAX R ESULTS TO DR FLORENCE: Performed By: #### V ITB1, ZINC #### [facility] [address] [place] [address] #### B12, FOL, CMP, PREALB, ANDREZ, CBCD #### [facility] [address] [place] [address] CALCIUM,TOTAL 9.3 md/dL Normal 8.7-10.4 [facility] Comment on above: Order Comment: FAX R ESULTS TO DR FLORENCE: Performed By: #### V ITB1, ZINC #### [facility] [address] [place] [address] #### B12, FOL, CMP, PREALB, ANDREZ, CBCD #### [facility] [address] [place] [address] Chloride [Moles/Vol] 103 mmol/L Normal 98-107 [facility] Comment on above: Order Comment: FAX R ESULTS TO DR FLORENCE: [phone] Performed By: #### V ITB1, ZINC #### [facility] [address] [place] [address] #### B12, FOL, CMP, PREALB, ANDREZ, CBCD #### [facility] [address] [place] [address] CO2 [Moles/Vol] 23 mmol/L Normal 20-31 [facility] Comment on above: Order Comment: FAX R ESULTS TO DR FLORENCE: [phone] Performed By: #### V ITB1, ZINC #### [facility] [address] [place] [address] #### B12, FOL, CMP, PREALB, ANDREZ, CBCD #### [facility] [address] [place] [address] Creatinine [Mass/Vol] 0.58 mg/dL Normal 0.55-1.02 [facility] Comment on above: Order Comment: FAX R ESULTS TO DR FLORENCE: [phone] Performed By: #### V ITB1, ZINC #### [facility] [address] [place] [address] #### B12, FOL, CMP, PREALB, ANDREZ, CBCD #### [facility] [address] [place] [address] EST GLOM FILT > 60 Normal [facility] Comment on above: Order Comment: FAX R ESULTS TO DR FLORENCE: [phone] Result Comment: Result Units: mL/min/1.73 m2 Note: [...] #### V ITB1, ZINC #### [facility] [address] [place] [address] #### B12, FOL, CMP, PREALB, ANDREZ, CBCD #### [facility] [address] [place] [address] ESTIMATED GLOM FILT RATE > 60 Normal [facility] Comment on above: Order Comment: FAX R ESULTS TO DR FLORENCE: [phone] Performed By: #### V ITB1, ZINC #### [facility] [address] [place] [address] #### B12, FOL, CMP, PREALB, ANDREZ, CBCD #### [facility] [address] [place] [address] Glucose [Mass/Vol] 92 mg/dL Normal 65-99 [facility] Comment on above: Order Comment: FAX R ESULTS TO DR FLORENCE: [phone] Performed By: #### V ITB1, ZINC #### [facility] [address] [place] [address] #### B12, FOL, CMP, PREALB, ANDREZ, CBCD #### [facility] [address] [place] [address] Potassium [Moles/Vol] 3.9 mmol/L Normal 3.4-5.1 [facility] Comment on above: Order Comment: FAX R ESULTS TO DR FLORENCE: [phone] Performed By: #### V ITB1, ZINC #### [facility] [address] [place] [address] #### B12, FOL, CMP, PREALB, ANDREZ, CBCD #### [facility] [address] [place] [address] Protein [Mass/Vol] 7.3 g/dL Normal 6.0-8.0 [facility] Comment on above: Order Comment: FAX R ESULTS TO DR FLORENCE: [phone] Performed By: #### V ITB1, ZINC #### [facility] [address] [place] [address] #### B12, FOL, CMP, PREALB, ANDREZ, CBCD #### [facility] [address] [place] [address] Sodium [Moles/Vol] 137 mmol/L Normal 136-145 [facility] Comment on above: Order Comment: FAX R ESULTS TO DR FLORENCE: [phone] Performed By: #### V ITB1, ZINC #### [facility] [address] [place] [address] #### B12, FOL, CMP, PREALB, ANDREZ, CBCD #### [facility] [address] [place] [address] Urea nitrogen [Mass/Vol] 12 mg/dL Normal 9-23 [facility] Comment on above: Order Comment: FAX R ESULTS TO DR FLORENCE: [phone] Performed By: #### V ITB1, ZINC #### [facility] [address] [place] [address] #### B12, FOL, CMP, PREALB, ANDREZ, CBCD #### [facility] [address] [place] [address] Basic Metabolic Panelon 05-0 Anion gap [Moles/Vol] 11 mmol/L Normal 7-16 [facility] Calcium [Mass/Vol] 8.9 mg/dL Normal 8.6-10.2 [facility] Chloride [Moles/Vol] 104 mmol/L Normal 98-107 [facility] CO2 [Moles/Vol] 25 mmol/L Normal 22-29 [facility] Creatinine [Mass/Vol] 0.6 mg/dL Normal 0.5-1.0 [facility] GFR Calculated >60 Normal >=60 [facility] Comment on above: Result Comment: [...] Glucose [Mass/Vol] 117 mg/dL High 74-99 [facility] Potassium [Moles/Vol] 4.3 mmol/L Normal 3.5-5.0 [facility] Sodium [Moles/Vol] 140 mmol/L Normal 132-146 [facility] Urea nitrogen [Mass/Vol] 13 mg/dL Normal 6-20 [facility] Basic metabolic 2000 panelon 10-30-2022 Anion gap [Moles/Vol] 11 mmol/L 7 - 16 mmol/L [facility] Calcium [Mass/Vol] 8.9 mg/dL 8.6 - 10. 2 mg/dL [facility] Chloride [Moles/Vol] 104 mmol/L 98 - 10 7 mmol/L [facility] CO2 [Moles/Vol] 25 mmol/L 22 - 29 mmol/L [facility] Creatinine [Mass/Vol] 0.6 mg/dL 0.5 - 1.0 mg/dL [facility] GFR/1.73 sq M.predicted among non-blacks MDRD (S/P/Bld) [Vol rate/Area] mL/min/1.73 60 - PINF mL/min/1.73 [facility] Comment on above: Pediatric calculator link https://www.kidney.org/professionals/kdoqi/gfr_calculatorped [...] 117 mg/dL High 74 - 99 mg/dL [facility] Potassium [Moles/Vol] 4.3 mmol/L 3.5 - 5.0 mmol/L [facility] Sodium [Moles/Vol] 140 mmol/L 132 - 146 mmol/L [facility] Urea nitrogen [Mass/Vol] 13 mg/dL 6 - 20 mg/dL [facility] CBC With Platelet and Differ entialon 10-30-2022 Abs Imm Granulocytes 0.07 E9/L Normal [facility] Absolute Basophils 0.01 E9/L Normal 0.00-0.20 [facility] Absolute Eosinophils 0.00 E9/L Low 0.05-0.50 [facility] Absolute Lymphocytes 1.89 E9/L Normal 1.50-4.00 [facility] Absolute Monocytes 0.73 E9/L Normal 0.10-0.95 [facility] Absolute Neutrophils 9.02 E9/L High 1.80-7.30 [facility] Basophils/100 WBC (Bld) 0.1 % Normal 0.0-2.0 [facility] Eosinophils/100 WBC (Bld) 0.0 % Normal 0.0-6.0 [facility] Hematocrit (Bld) [Volume fraction] 38.2 % Normal 34.0-48.0 [facility] Hemoglobin (Bld) [Mass/Vol] 12.2 g/dL Normal 11.5-15.5 [facility] Imm Granulocytes 0.6 % Normal 0.0-5.0 [facility] Lymphocytes/100 WBC (Bld) 16.1 % Low 20.0-42.0 [facility] MCH (RBC) [Entitic mass] 29.2 pg Normal 26.0-35.0 [facility] MCHC 31.9 % Low 32.0-34.5 [facility] MCV (RBC) [Entitic vol] 91.4 fL Normal 80.0-99.9 [facility] Monocytes/100 WBC (Bld) 6.2 % Normal 2.0-12.0 [facility] Neutrophils/100 WBC (Bld) 77.0 % Normal 43.0-80.0 [facility] Platelet Count 285 E9/L Normal 130-450 [facility] Platelet mean volume (Bld) [Entitic vol] 10.4 fL Normal 7.0-12.0 [facility] RBC 4.18 E12/L Normal 3.50-5.50 [facility] RDW 13.2 fL Normal 11.5-15.0 [facility] WBC 11.7 E9/L High 4.5-11.5 [facility] CBC with Auto Differentialon 10-30-2022 Basophils (Bld) [#/Vol] 0.01 10*3/uL [facility] Basophils/100 WBC (Bld) 0.1 % 0.0 - 2.0 % [facility] Eosinophils (Bld) [#/Vol] 0.00 10*3/uL Low [facility] Eosinophils/100 WBC (Bld) 0 % 0.0 - 6.0 % [facility] Erythrocyte distribution width (RBC) [Ratio] 13.2 fL 11.5 - 15.0 fL [facility] Hematocrit (Bld) [Volume fraction] 38.2 % 34.0 - 48.0 % [facility] Hemoglobin (Bld) [Mass/Vol] 12.2 g/dL 11.5 - 15.5 g/dL [facility] Immature granulocytes (Bld) [#/Vol] 0.07 10*3/uL E9/L [facility] Immature granulocytes/100 WBC (Bld) 0.6 % 0.0 - 5.0 % [facility] Interpretation and review of laboratory results Abnormal [facility] Lymphocytes (Bld) [#/Vol] 1.89 10*3/uL [facility] Lymphocytes/100 WBC (Bld) 16.1 % Low 20.0 - 42.0 % [facility] MCH (RBC) [Entitic mass] 29.2 pg 26.0 - 35.0 pg [facility] MCHC (RBC) [Mass/Vol] 31.9 % Low 32.0 - 34.5 % [facility] MCV (RBC) [Entitic vol] 91.4 fL 80.0 - 99.9 fL [facility] Monocytes (Bld) [#/Vol] 0.73 10*3/uL [facility] Monocytes/100 WBC (Bld) 6.2 % 2.0 - 12.0 % [facility] Neutrophils (Bld) [#/Vol] 9.02 10*3/uL High [facility] Platelet mean volume (Bld) [Entitic vol] 10.4 fL 7.0 - 12.0 fL [facility] Platelets (Bld) [#/Vol] 285 10*3/uL [facility] RBC (Bld) [#/Vol] 4.18 10*6/uL [facility] Segmented neutrophils/100 WBC (Bld) 77.0 % 43.0 - 80.0 % [facility] WBC (Bld) [#/Vol] 11.7 10*3/uL High [facility] Hepatic Function Panelon Albumin [Mass/Vol] 3.7 g/dL 3.5 - 5.2 g/dL [facility] ALP [Catalytic activity/Vol] 55 U/L 35 - 104 U/L [facility] ALT [Catalytic activity/Vol] 19 U/L 0 - 32 U/L [facility] AST [Catalytic activity/Vol] 14 U/L 0 - 31 U/L [facility] Bilirubin [Mass/Vol] 0.5 mg/dL 0.0 - 1 .2 mg/dL [facility] Bilirubin.direct [Mass/Vol] mg/dL 0.0 - 0.3 mg/dL [facility] Bilirubin.indirect [Mass/Vol] see below 0.0 - 1.0 mg/dL [facility] Comment on above: Indirect Bilirubin c annot be calculated since Total Bilirubin and/or Direct Bilirubin is below measurable range. Protein [Mass/Vol] 6.3 g/dL Low 6.4 - 8.3 g/dL [facility] Hgb A1Con 10-30-2022 HbA1c (Bld) [Mass fraction] 4.8 % Normal 4.0-5.6 [facility] Lipid Panelon 10-30-2022 Cholesterol [Mass/Vol] 99 mg/dL Normal 0-[address] [facility] Cholesterol in HDL [Mass/Vol] 34 mg/dL Normal >40 [facility] Cholesterol in LDL [Mass/Vol] 43 mg/dL Normal 0-99 [facility] Triglyceride [Mass/Vol] 108 mg/dL Normal 0-149 [facility] VLDL Cholesterol (Calculated) 22 mg/dL Normal [facility] Cholesterol [Mass/Vol] 99 mg/dL 0 - 1 99 mg/dL [facility] Cholesterol in HDL [Mass/Vol] 34 mg/dL 40 - PINF mg/dL [facility] Cholesterol in LDL [Mass/Vol] 43 mg/dL 0 - 99 mg/dL [facility] Cholesterol in VLDL [Mass/Vol] 22 mg/dL [facility] Triglyceride [Mass/Vol] 108 mg/dL 0 - 149 mg/dL [facility] Liver Panelon 10-30-2022 Albumin [Mass/Vol] 3.7 g/dL Normal 3.5-5.2 [facility] ALP [Catalytic activity/Vol] 55 U/L Normal 35-104 [facility] ALT [Catalytic activity/Vol] 19 U/L Normal 0-32 [facility] AST [Catalytic activity/Vol] 14 U/L Normal 0-31 [facility] Bilirubin [Mass/Vol] 0.5 mg/dL Normal 0.0-1.2 [facility] Bilirubin Indirect see below Normal 0.0-1.0 [facility] Comment on above: Result Comment: Grace rect Bilirubin cannot be calculated since Total Bilirubin and/or Direct Bilirubin is below measurable range. Bilirubin.indirect [Mass/Vol] mg/dL Normal 0.0-0.3 [facility] Protein [Mass/Vol] 6.3 g/dL Low 6.4-8.3 [facility] METER GLUCOSEon 10-30-2022 Glucose [Mass/Vol] 111 mg/dL High 74-99 [facility] Magnesiumon 10-30-2022 Magnesium [Mass/Vol] 1.7 mg/dL Normal 1.6-2.6 [facility] Magnesium [Mass/Vol] 1.7 mg/dL 1.6 - 2 .6 mg/dL [facility] No Panel Informationon 10-30 Interpretation and review of laboratory results Abnormal [facility] POCT Glucoseon 10-30-2022 Glucose [Mass/Vol] 111 mg/dL High 74 - 99 mg/dL [facility] Interpretation and review of laboratory results Abnormal [facility] Phosphoruson 10-30-2022 Phosphate [Mass/Vol] 4.0 mg/dL Normal 2.5-4.5 [facility] Phosphate [Mass/Vol] 4.0 mg/dL 2.5 - 4 .5 mg/dL [facility] T4, Freeon 10-30-2022 Free T4 [Mass/Vol] 1.32 ng/dL 0.93 - 1. 70 ng/dL [facility] TSHon 10-30-2022 TSH [Mass/Vol] 0.828 [facility] TSH w/out Reflexon TSH w/out Reflex 0.828 uIU/mL Normal 0.270-4.200 [facility] Thyroxine Freeon 10-30-2022 Thyroxine Free 1.32 ng/dL Normal 0.93-1.70 [facility] Comprehensive Metabolic Pane evan 10-29-2022 Potassium see note Critically abnormal 3.5-5.0 [facility] Comment on above: Result Comment: Lisa cui order. Made no charge to patient for testing Corrected result; previously reported as 4.3 on 10/24/2022 at 19:57 by CRIAM Hemoglobin A1con 10-29-2022 HbA1c (Bld) [Mass fraction] 5.1 % 4.0 - 5.6 % [facility] Hgb A1Con 10-29-2022 HbA1c (Bld) [Mass fraction] 5.1 % Normal 4.0-5.6 [facility] METER GLUCOSEon 10-29-2022 Glucose [Mass/Vol] 128 mg/dL High 74-99 [facility] Glucose [Mass/Vol] 146 mg/dL High 74-99 [facility] Glucose [Mass/Vol] 104 mg/dL High 74-99 [facility] Glucose [Mass/Vol] 101 mg/dL High 74-99 [facility] No Panel Informationon 10-29 [facility] POC Urine Qualon 0 10-29-2022 Beta HCG ( test) Ql (U) Negative Negative [facility] Work Phone: Beta HCG ( test) Ql (U) [id number] [facility] Work Phone: Negative QC Pass/Fail Pass [facility] [employer] Work Phone: Positive QC Pass/Fail Pass [facility] Work Phone: POCT Glucoseon 10-29-2022 Glucose [Mass/Vol] 128 mg/dL High 74 - 99 mg/dL [facility] Interpretation and review of laboratory results Abnormal [facility] Glucose [Mass/Vol] 146 mg/dL High 74 - 99 mg/dL [facility] Interpretation and review of laboratory results Abnormal [facility] Glucose [Mass/Vol] 104 mg/dL High 74 - 99 mg/dL [facility] Interpretation and review of laboratory results Abnormal [facility] Glucose [Mass/Vol] 101 mg/dL High 74 - 99 mg/dL [facility] Interpretation and review of laboratory results Abnormal [facility] Surgical Specimenon 10-30-19 23 Surgical Specimen [facility] [address] [id number] FINAL SURGICAL PATHOLOGY REPORT NAME: BATOOL KINGSLEY Date of 10/29/2022 Collection: Medical Record [id number] Date of 10/29/2022 Number: Receipt: Age: 22 Y Sex: F Date 10/31/2022 12:02 Reported: Date Of : 2000 [facility] [id number] Admitting DERIC FLORENCE Number: Physician: Patient DIS [id number] Ordering DERIC FLORENCE Location: Physician: Accession Number: [...] of hanson haq mucosal lined fibrous tissue, auto service representative or portions of small bowel which measures 4.1 x 2.5 x 1.7 cm. Much of the exterior is covered by hanson haq, soft to finely folded mucosa. Numerous, small metallic surgical [place] are present throughout the exterior. Discrete mucosal lesions are not present. Sectioning is unremarkable. Guest Service Aide sections are submitted. Block label A1. (JORGE L:TAURUS) CODES: [id number]; Department of Pathology Page 1 of 1 Normal [facility] CBC (Hemogram)on 10-24-2022 Erythrocyte distribution width (RBC) [Ratio] 13.7 fL 11.5 - 15.0 fL [facility] Hematocrit (Bld) [Volume fraction] 43.9 % 34.0 - 48.0 % [facility] Hemoglobin (Bld) [Mass/Vol] 14.3 g/dL 11.5 - 15.5 g/dL [facility] MCH (RBC) [Entitic mass] 28.9 pg 26.0 - 35.0 pg [facility] MCHC (RBC) [Mass/Vol] 32.6 % 32.0 - 34.5 % [facility] MCV (RBC) [Entitic vol] 88.9 fL 80.0 - 99.9 fL [facility] Platelet mean volume (Bld) [Entitic vol] 10.6 fL 7.0 - 12.0 fL [facility] Platelets (Bld) [#/Vol] 321 10*3/uL [facility] RBC (Bld) [#/Vol] 4.94 10*6/uL [facility] WBC (Bld) [#/Vol] 7.0 10*3/uL [facility] CBC With Platelet No Differe ntialon 10-24-2022 Hematocrit (Bld) [Volume fraction] 43.9 % Normal 34.0-48.0 [facility] Hemoglobin (Bld) [Mass/Vol] 14.3 g/dL Normal 11.5-15.5 [facility] MCH (RBC) [Entitic mass] 28.9 pg Normal 26.0-35.0 [facility] MCHC 32.6 % Normal 32.0-34.5 [facility] MCV (RBC) [Entitic vol] 88.9 fL Normal 80.0-99.9 [facility] Platelet Count 321 E9/L Normal 130-450 [place] [facility] [facility] Plate[facility] mean volume (Bld) [Entitic vol] 10.6 fL Normal 7.0-12.0 [facility] RBC 4.94 E12/L Normal 3.50-5.50 [facility] RDW 13.7 fL Normal 11.5-15.0 [facility] WBC 7.0 E9/L Normal 4.5-11.5 [facility] Comprehensive Metabolic Pane l reflex Mgon 10-24-2022 Albumin [Mass/Vol] 4.6 g/dL Normal 3.5-5.2 [facility] ALP [Catalytic activity/Vol] 69 U/L Normal 35-104 [facility] ALT [Catalytic activity/Vol] 27 U/L Normal 0-32 [facility] Anion gap [Moles/Vol] 12 mmol/L Normal 7-16 [facility] AST [Catalytic activity/Vol] 16 U/L Normal 0-31 [facility] Bilirubin [Mass/Vol] 0.4 mg/dL Normal 0.0-1.2 [facility] Calcium [Mass/Vol] 9.3 mg/dL Normal 8.6-10.2 [facility] Chloride [Moles/Vol] 104 mmol/L Normal 98-107 [facility] CO2 [Moles/Vol] 24 mmol/L Normal 22-29 [facility] Creatinine [Mass/Vol] 0.6 mg/dL Normal 0.5-1.0 [facility] GFR Calculated >60 Normal >=60 [facility] Comment on above: Result Comment: [...] Glucose [Mass/Vol] 79 mg/dL Normal 74-99 [facility] Magnesium [Moles/Vol] 4.3 mmol/L Normal 3.5-5.0 [facility] Protein [Mass/Vol] 7.6 g/dL Normal 6.4-8.3 [facility] Sodium [Moles/Vol] 140 mmol/L Normal 132-146 [facility] Urea nitrogen [Mass/Vol] 13 mg/dL Normal 6-20 [facility] Comprehensive metabolic 2000 panelon 10-24-2022 Potassium [Moles/Vol] 4.3 mmol/L 3.5 - 5.0 mmol/L [facility] Albumin [Mass/Vol] 4.6 g/dL 3.5 - 5.2 g/dL [facility] ALP [Catalytic activity/Vol] 69 U/L 35 - 104 U/L [facility] ALT [Catalytic activity/Vol] 27 U/L 0 - 32 U/L [facility] Anion gap [Moles/Vol] 12 mmol/L 7 - 16 mmol/L [facility] AST [Catalytic activity/Vol] 16 U/L 0 - 31 U/L [facility] Bilirubin [Mass/Vol] 0.4 mg/dL 0.0 - 1 .2 mg/dL [facility] Calcium [Mass/Vol] 9.3 mg/dL 8.6 - 10. 2 mg/dL [facility] Chloride [Moles/Vol] 104 mmol/L 98 - 10 7 mmol/L [facility] CO2 [Moles/Vol] 24 mmol/L 22 - 29 mmol/L [facility] Creatinine [Mass/Vol] 0.6 mg/dL 0.5 - 1.0 mg/dL [facility] GFR/1.73 sq M.predicted among non-blacks MDRD (S/P/Bld) [Vol rate/Area] mL/min/1.73 60 - PINF mL/min/1.73 [facility] Comment on above: Pediatric calculator link [email or web address]://www.kidney.org/professionals/kdoqi/gfr_calculatorped [...] [Mass/Vol] 79 mg/dL 74 - 99 mg/dL [facility] Potassium [Moles/Vol] 4.3 mmol/L 3.5 - 5.0 mmol/L [facility] Protein [Mass/Vol] 7.6 g/dL 6.4 - 8.3 g/dL [facility] Sodium [Moles/Vol] 140 mmol/L 132 - 146 mmol/L [facility] Urea nitrogen [Mass/Vol] 13 mg/dL 6 - 20 mg/dL [facility] ACT PARTIAL THROMBO TIMEon 0 - ACT PARTIAL THROMBO TIME 30.4 SECONDS Normal 20.0-32.1 [facility] Comment on above: Result Comment: APTT THERAPEUTIC RANGE = 43.6 TO 68.4 SECONDS Performed By: #### V ITB1, ZINC #### [facility] [address] [place] [address] #### B12, FOL, CMP, PREALB, ANDREZ, CBCD #### [facility] [address] [place] [address] CBC with DIFFERENTIALon 04-0 Basophils (Bld) [#/Vol] 0.0 10*3/uL Normal 0.0-0.1 [facility] Comment on above: Performed By: #### V ITB1, ZINC #### [facility] [address] [place] [address] #### B12, FOL, CMP, PREALB, ANDREZ, CBCD #### [facility] [address] [place] [address] 47611 Basophils/100 WBC (Bld) 0.5 % Normal 0.0-1.0 [facility] Comment on above: Performed By: #### V ITB1, ZINC #### [facility] [address] [place] [address] #### B12, FOL, CMP, PREALB, ANDREZ, CBCD #### [facility] [address] [place] [address] 27882 Eosinophils (Bld) [#/Vol] 0.3 10*3/uL Normal 0.0-0.4 [facility] Comment on above: Performed By: #### V ITB1, ZINC #### [facility] [address] [place] [address] #### B12, FOL, CMP, PREALB, ANDREZ, CBCD #### [facility] [address] [place] [address] 14018 Eosinophils/100 WBC (Bld) 4.1 % High 1.0-4.0 [facility] Comment on above: Performed By: #### V ITB1, ZINC #### [facility] [address] [place] [address] #### B12, FOL, CMP, PREALB, ANDREZ, CBCD #### [facility] [address] [place] [address]335 Hematocrit (Bld) [Volume fraction] 40.6 % Normal 37.0-47.0 [facility] Comment on above: Performed By: #### V ITB1, ZINC #### [facility] [address] [place] [address] #### B12, FOL, CMP, PREALB, ANDREZ, CBCD #### [facility] [address] [place] [address] Hemoglobin (Bld) [Mass/Vol] 13.2 g/dL Normal 12.0-16.0 [facility] Comment on above: Performed By: #### V ITB1, ZINC #### [facility] [address] [place] [address] #### B12, FOL, CMP, PREALB, ANDREZ, CBCD #### [facility] [address] [place] [address]1975 IG # 0.0 10*3/uL Normal 0.0-0.1 [facility] Comment on above: Performed By: #### V ITB1, ZINC #### [facility] [address] [place] [address] #### B12, FOL, CMP, PREALB, ANDREZ, CBCD #### [facility] [address] [place] [address] 81388 IG % 0.5 % Normal 0.0-1.0 [facility] Comment on above: Performed By: #### V ITB1, ZINC #### [facility] [address] [place] [address] #### B12, FOL, CMP, PREALB, ANDREZ, CBCD #### [facility] [address] [place] [address] 46542 Lymphocytes (Bld) [#/Vol] 3.2 10*3/uL Normal 1.3-4.4 [facility] Comment on above: Performed By: #### V ITB1, ZINC #### [facility] [address] [place] [address] #### B12, FOL, CMP, PREALB, ANDREZ, CBCD #### [facility] [address] [place] [address] 99901 Lymphocytes/100 WBC (Bld) 41.8 % High 27.0-41.0 [facility] Comment on above: Performed By: #### V ITB1, ZINC #### [facility] [address] [place] [address] #### B12, FOL, CMP, PREALB, ANDREZ, CBCD #### [facility] [address] [place] [address] MCV (RBC) [Entitic vol] 88.6 fL Normal 81.0-99.0 [facility] Comment on above: Performed By: #### V ITB1, ZINC #### [facility] [address] [place] [address] #### B12, FOL, CMP, PREALB, ANDREZ, CBCD #### [facility] [address] [place] [address] 91452 MEAN CORPUSCULAR HGB 28.8 pg Normal 27.0-31.0 [facility] Comment on above: Performed By: #### V ITB1, ZINC #### [facility] [address] [place] [address] #### B12, FOL, CMP, PREALB, ANDREZ, CBCD #### [facility] [address] [place] [address] 22806 MEAN CORPUSCULAR HGB CONC 32.5 g/dl Low 33.0-37.0 [facility] Comment on above: Performed By: #### V ITB1, ZINC #### [facility] [address] [place] [address] #### B12, FOL, CMP, PREALB, ANDREZ, CBCD #### [facility] [address] [place] [address] 10006 Monocytes (Bld) [#/Vol] 0.4 10*3/uL Normal 0.1-1.0 [facility] Comment on above: Performed By: #### V ITB1, ZINC #### [facility] [address] [place] [address] #### B12, FOL, CMP, PREALB, ANDREZ, CBCD #### [facility] [address] [place] [address] 82916 Monocytes/100 WBC (Bld) 5.1 % Normal 3.0-9.0 [facility] Comment on above: Performed By: #### V ITB1, ZINC #### [facility] [address] [place] [address] #### B12, FOL, CMP, PREALB, ANDREZ, CBCD #### [facility] [address] [place] [address] 49518 Neutrophils (Bld) [#/Vol] 3.7 10*3/uL Normal 2.3-7.9 [facility] Comment on above: Performed By: #### V ITB1, ZINC #### [facility] [address] [place] [address] #### B12, FOL, CMP, PREALB, ANDREZ, CBCD #### [facility] [address] [place] [address] 62211 Neutrophils/100 WBC (Bld) 48.0 % Normal 47.0-73.0 [facility] Comment on above: Performed By: #### V ITB1, ZINC #### [facility] [address] [place] [address] #### B12, FOL, CMP, PREALB, ANDREZ, CBCD #### [facility] [address] [place] [address] 42538 NUCLEATED RED BLOOD CELL 0.0 10*3/uL Normal 0.0-0.0 [facility] Comment on above: Performed By: #### V ITB1, ZINC #### [facility] [address] [place] [address] #### B12, FOL, CMP, PREALB, ANDREZ, CBCD #### [facility] [address] [place] [address] 62913 NUCLEATED RED BLOOD CELL 0.0 % Normal 0.0-0.0 [facility] Comment on above: Performed By: #### V ITB1, ZINC #### [facility] [address] [place] [address] #### B12, FOL, CMP, PREALB, ANDREZ, CBCD #### [facility] [address] [place] [address] 27346 PLATELET COUNT AUTOMATED 300 10*3/uL Normal 130-400 [facility] Comment on above: Performed By: #### V ITB1, ZINC #### [facility] [address] [place] [address] #### B12, FOL, CMP, PREALB, ANDREZ, CBCD #### [facility] [address] [place] [address] Platelet mean volume (Bld) [Entitic vol] 10.7 fL Normal 9.6-12.3 [facility] Comment on above: Performed By: #### V ITB1, ZINC #### [facility] [address] [place] [address] #### B12, FOL, CMP, PREALB, ANDREZ, CBCD #### [facility] [address] [place] [address] 37623 RBC (Bld) [#/Vol] 4.58 10*6/uL Normal 4.10-5.10 [facility] Comment on above: Performed By: #### V ITB1, ZINC #### [facility] [address] [place] [address] #### B12, FOL, CMP, PREALB, ANDREZ, CBCD #### [facility] [address] [place] [address] 29367 RED CELL DISTRI WIDTH 13.3 % Normal 0-14.5 [facility] Comment on above: Performed By: #### V ITB1, ZINC #### [facility] [address] [place] [address] #### B12, FOL, CMP, PREALB, ANDREZ, CBCD #### [facility] [address] [place] [address] WBC (Bld) [#/Vol] 7.6 10*3/uL Normal 4.8-10.8 [facility] Comment on above: Performed By: #### V ITB1, ZINC #### [facility] [address] [place] [address] #### B12, FOL, CMP, PREALB, ANDREZ, CBCD #### [facility] [address] [place] [address] COMPREHENSIVE METABOLIC PANE Evan 10-04-2022 Albumin [Mass/Vol] 3.8 g/dL Normal 3.4-5.0 [facility] Comment on above: Performed By: #### V ITB1, ZINC #### [facility] [address] [place] [address] #### B12, FOL, CMP, PREALB, ANDREZ, CBCD #### [facility] [address] [place] [address] ALP [Catalytic activity/Vol] 63 U/L Normal 46-116 [facility] Comment on above: Performed By: #### V ITB1, ZINC #### [facility] [address] [place] [address] #### B12, FOL, CMP, PREALB, ANDREZ, CBCD #### [facility] [address] [place] [address] ALT [Catalytic activity/Vol] 18 U/L Normal 10-49 [facility] Comment on above: Performed By: #### V ITB1, ZINC #### [facility] [address] [place] [address] #### B12, FOL, CMP, PREALB, ANDREZ, CBCD #### [facility] [address] [place] [address] 06585 AST [Catalytic activity/Vol] 15 U/L Normal 0-34 [facility] Comment on above: Performed By: #### V ITB1, ZINC #### [facility] [address] [place] [address] #### B12, FOL, CMP, PREALB, ANDREZ, CBCD #### [facility] [address] [place] [address] 21257 Bilirubin [Mass/Vol] 0.3 mg/dL Normal 0.3-1.2 [facility] Comment on above: Performed By: #### V ITB1, ZINC #### [facility] [address] [place] [address] #### B12, FOL, CMP, PREALB, ANDREZ, CBCD #### [facility] [address] [place] [address] CALCIUM,TOTAL 9.2 md/dL Normal 8.7-10.4 [facility] Comment on above: Performed By: #### V ITB1, ZINC #### [facility] [address] [place] [address] #### B12, FOL, CMP, PREALB, ANDREZ, CBCD #### [facility] [address] [place] [address] Chloride [Moles/Vol] 105 mmol/L Normal 98-107 [facility] Comment on above: Performed By: #### V ITB1, ZINC #### [facility] [address] [place] [address] #### B12, FOL, CMP, PREALB, ANDREZ, CBCD #### [facility] [address] [place] [address] 82511 CO2 [Moles/Vol] 27 mmol/L Normal 20-31 [facility] Comment on above: Performed By: #### V ITB1, ZINC #### [facility] [address] [place] [address] #### B12, FOL, CMP, PREALB, ANDREZ, CBCD #### [facility] [address] [place] [address] Creatinine [Mass/Vol] 0.61 mg/dL Normal 0.55-1.02 [facility] Comment on above: Performed By: #### V ITB1, ZINC #### [facility] [address] [place] [address] #### B12, FOL, CMP, PREALB, ANDREZ, CBCD #### [facility] [address] [place] [address] EST GLOM FILT > 60 Normal [facility] Comment on above: Result Comment: Result [...] #### V ITB1, ZINC #### [facility] [address] [place] [address] #### B12, FOL, CMP, PREALB, ANDREZ, CBCD #### [facility] [address] [place] [address] 14765 ESTIMATED GLOM FILT RATE > 60 Normal [facility] Comment on above: Performed By: #### V ITB1, ZINC #### [facility] [address] [place] [address] #### B12, FOL, CMP, PREALB, ANDREZ, CBCD #### [facility] [address] [place] [address] 52976 Glucose [Mass/Vol] 87 mg/dL Normal 65-99 [facility] Comment on above: Performed By: #### V ITB1, ZINC #### [facility] [address] [place] [address] #### B12, FOL, CMP, PREALB, ANDREZ, CBCD #### [facility] [address] [place] [address] 54567 Potassium [Moles/Vol] 4.2 mmol/L Normal 3.4-5.1 [facility] Comment on above: Performed By: #### V ITB1, ZINC #### [facility] [address] [place] [address] #### B12, FOL, CMP, PREALB, ANDREZ, CBCD #### [facility] [address] [place] [address] 14623 Protein [Mass/Vol] 6.9 g/dL Normal 6.0-8.0 [facility] Comment on above: Performed By: #### V ITB1, ZINC #### [facility] [address] [place] [address] #### B12, FOL, CMP, PREALB, ANDREZ, CBCD #### [facility] [address] [place] [address] Sodium [Moles/Vol] 139 mmol/L Normal 136-145 [facility] Comment on above: Performed By: #### V ITB1, ZINC #### [facility] [address] [place] [address] #### B12, FOL, CMP, PREALB, ANDREZ, CBCD #### [facility] [address] [place] [address] Urea nitrogen [Mass/Vol] 14 mg/dL Normal 9-23 [facility] Comment on above: Performed By: #### V ITB1, ZINC #### [facility] [address] [place] [address] #### B12, FOL, CMP, PREALB, ANDREZ, CBCD #### [facility] [address] [place] [address] VTA1Sfl 10-04-2022 ESTIMATED AVERAGE GLUCOSE 100 Normal [facility] Comment on above: Performed By: #### V ITB1, ZINC #### [facility] [address] [place] [address] #### B12, FOL, CMP, PREALB, ANDREZ, CBCD #### [facility] [address] [place] [address] HbA1c (Bld) [Mass fraction] 5.1 % Normal 4.8-5.6 [facility] Comment on above: Result Comment: Standarization of method based on National Glycohemoglobin Standardization Program (NGSP). HEMOGLOBIN A1c(%) DEGREE of GLUCOSE CONTROL 5.7-6.4% Prediabetes range >6.4% Diagnosis of Diabetes <7% Glycemic control for adults with Diabetes Performed By: #### V ITB1, ZINC #### [facility] [address] [place] [address] #### B12, FOL, CMP, PREALB, ANDREZ, CBCD #### [facility] [address] [place] [address] 27541 LIPID PANEL CHOLESTEROL/HDLo n 10-04-2022 Cholesterol [Mass/Vol] 122 mg/dL Normal <200 [facility] Comment on above: Performed By: #### V ITB1, ZINC #### [facility] [address] [place] [address] #### B12, FOL, CMP, PREALB, ANDREZ, CBCD #### [facility] [address] [place] [address] 77618 Cholesterol in HDL [Mass/Vol] 28 mg/dL Low 40-60 [facility] Comment on above: Performed By: #### V ITB1, ZINC #### [facility] [address] [place] [address] #### B12, FOL, CMP, PREALB, ANDREZ, CBCD #### [facility] [address] [place] [address] 20251 Cholesterol in LDL [Mass/Vol] 55 mg/dL Normal 9-159 [facility] Comment on above: Performed By: #### V ITB1, ZINC #### [facility] [address] [place] [address] #### B12, FOL, CMP, PREALB, ANDREZ, CBCD #### [facility] [address] [place] [address] 40010 Cholesterol.total/Chol esterol in HDL [Mass ratio] 4.4 {ratio} Normal [facility] Comment on above: Performed By: #### V ITB1, ZINC #### [facility] [address] [place] [address] #### B12, FOL, CMP, PREALB, ANDREZ, CBCD #### [facility] [address] [place] [address] Triglyceride [Mass/Vol] 196 mg/dL High <150 [facility] Comment on above: Result Comment: TRIGLYCERIDE RISK ASSESSMENT: 150-199 mg/dl BORDERLINE HIGH >200 mg//dl HIGH . Performed By: #### V ITB1, ZINC #### [facility] [address] [place] [address] #### B12, FOL, CMP, PREALB, ANDREZ, CBCD #### [facility] [address] [place] [address] 65612 VLDL CHOLESTEROL 39 mg/dL Normal 6-40 [facility] Comment on above: Performed By: #### V ITB1, ZINC #### [facility] [address] [place] [address] #### B12, FOL, CMP, PREALB, ANDREZ, CBCD #### [facility] [address] [place] [address] 18860 THROAT CULTUREon 08-15-2022 Throat culture THROAT CULTURE NORMAL ARIN Normal [facility] Comment on above: Performed By: #### V ITB1, ZINC #### [facility] [address] [place] [address] #### B12, FOL, CMP, PREALB, ANDREZ, CBCD #### [facility] [address] [place] [address] 29576 NOVL CORONAVIRUS NAAon 08-14 SARS-CoV-2 (COVID-19) RNA SUJATA+probe Ql (Unsp spec) Detected Abnormal Not Detected [facility] Comment on above: Result Comment: Evelyn ents who have a positive COVID-19 test result may now have treatment options. Treatment options are available for patients with mild to moderate symptoms and for hospitalized patients. Visit our website at [email or web address] for resources and information. This nucleic acid amplification test was developed and its performance characteristics determined by [employer]. Nucleic acid amplification tests include RT- PCR [...] #### V ITB1, ZINC #### [facility] [address] [place] [address] #### B12, FOL, CMP, PREALB, ANDREZ, CBCD #### [facility] [address] [place] [address] 16359 CBC with DIFFERENTIALon 08-01 Basophils (Bld) [#/Vol] 0.0 10*3/uL Normal 0.0-0.1 [facility] Comment on above: Performed By: #### V ITB1, ZINC #### [facility] [address] [place] [address] #### B12, FOL, CMP, PREALB, ANDREZ, CBCD #### [facility] [address] [place] [address] 48444 Basophils/100 WBC (Bld) 0.5 % Normal 0.0-1.0 [facility] Comment on above: Performed By: #### V ITB1, ZINC #### [facility] [address] [place] [address] #### B12, FOL, CMP, PREALB, ANDREZ, CBCD #### [facility] [address] [place] [address] 98983 Eosinophils (Bld) [#/Vol] 0.2 10*3/uL Normal 0.0-0.4 [facility] Comment on above: Performed By: #### V ITB1, ZINC #### [facility] [address] [place] [address] #### B12, FOL, CMP, PREALB, ANDREZ, CBCD #### [facility] [address] [place] [address] 99318 Eosinophils/100 WBC (Bld) 4.2 % High 1.0-4.0 [facility] Comment on above: Performed By: #### V ITB1, ZINC #### [facility] [address] [place] [address] #### B12, FOL, CMP, PREALB, ANDREZ, CBCD #### [facility] [address] [place] [address] 69673 Hematocrit (Bld) [Volume fraction] 43.8 % Normal 37.0-47.0 [facility] Comment on above: Performed By: #### V ITB1, ZINC #### [facility] [address] [place] [address] #### B12, FOL, CMP, PREALB, ANDREZ, CBCD #### [facility] [address] [place] [address] 10276 Hemoglobin (Bld) [Mass/Vol] 14.0 g/dL Normal 12.0-16.0 [facility] Comment on above: Performed By: #### V ITB1, ZINC #### [facility] [address] [place] [address] #### B12, FOL, CMP, PREALB, ANDREZ, CBCD #### [facility] [address] [place] [address] 60837 IG # 0.1 10*3/uL Normal 0.0-0.1 [facility] Comment on above: Performed By: #### V ITB1, ZINC #### [facility] [address] [place] [address] #### B12, FOL, CMP, PREALB, ANDREZ, CBCD #### [facility] [address] [place] [address] IG % 1.1 % High 0.0-1.0 [facility] Comment on above: Performed By: #### V ITB1, ZINC #### [facility] [address] [place] [address] #### B12, FOL, CMP, PREALB, ANDREZ, CBCD #### [facility] [address] [place] [address] 65521 Lymphocytes (Bld) [#/Vol] 2.9 10*3/uL Normal 1.3-4.4 [facility] Comment on above: Performed By: #### V ITB1, ZINC #### [facility] [address] [place] [address] #### B12, FOL, CMP, PREALB, ANDREZ, CBCD #### [facility] [address] [place] [address] 76262 Lymphocytes/100 WBC (Bld) 51.5 % High 27.0-41.0 [facility] Comment on above: Performed By: #### V ITB1, ZINC #### [facility] [address] [place] [address] #### B12, FOL, CMP, PREALB, ANDREZ, CBCD #### [facility] [address] [place] [address] 37774 MCV (RBC) [Entitic vol] 88.8 fL Normal 81.0-99.0 [facility] Comment on above: Performed By: #### V ITB1, ZINC #### [facility] [address] [place] [address] #### B12, FOL, CMP, PREALB, ANDREZ, CBCD #### [facility] [address] [place] [address] 55367 MEAN CORPUSCULAR HGB 28.4 pg Normal 27.0-31.0 [facility] Comment on above: Performed By: #### V ITB1, ZINC #### [facility] [address] [place] [address] #### B12, FOL, CMP, PREALB, ANDREZ, CBCD #### [facility] [address] [place] [address] 95990 MEAN CORPUSCULAR HGB CONC 32.0 g/dl Low 33.0-37.0 [facility] Comment on above: Performed By: #### V ITB1, ZINC #### [facility] [address] [place] [address] #### B12, FOL, CMP, PREALB, ANDREZ, CBCD #### [facility] [address] [place] [address] 73794 Monocytes (Bld) [#/Vol] 0.4 10*3/uL Normal 0.1-1.0 [facility] Comment on above: Performed By: #### V ITB1, ZINC #### [facility] [address] [place] [address] #### B12, FOL, CMP, PREALB, ANDREZ, CBCD #### [facility] [address] [place] [address] 28758 Monocytes/100 WBC (Bld) 7.0 % Normal 3.0-9.0 [facility] Comment on above: Performed By: #### V ITB1, ZINC #### [facility] [address] [place] [address] #### B12, FOL, CMP, PREALB, ANDREZ, CBCD #### [facility] [address] [place] [id number] Neutrophils (Bld) [#/Vol] 2.0 10*3/uL Low 2.3-7.9 [facility] Comment on above: Performed By: #### V ITB1, ZINC #### [facility] [address] [place] [address] #### B12, FOL, CMP, PREALB, ANDREZ, CBCD #### [facility] [address] [place] [address] [id number] Neutrophils/100 WBC (Bld) 35.7 % Low 47.0-73.0 [facility] Comment on above: Performed By: #### V ITB1, ZINC #### [facility] [address] [place] [address] #### B12, FOL, CMP, PREALB, ANDREZ, CBCD #### [facility] [address] [place] [address] [phone] NUCLEATED RED BLOOD CELL 0.0 10*3/uL Normal 0.0-0.0 [facility] Comment on above: Performed By: #### V ITB1, ZINC #### [facility] [address] [place] [address] #### B12, FOL, CMP, PREALB, ANDREZ, CBCD #### [facility] [address] [place] [id number] NUCLEATED RED BLOOD CELL 0.0 % Normal 0.0-0.0 [facility] Comment on above: Performed By: #### V ITB1, ZINC #### [facility] [address], [place] [address] #### B12, FOL, CMP, PREALB, ANDREZ, CBCD #### [facility] [address] [place] [address] 00185 PLATELET COUNT AUTOMATED 277 10*3/uL Normal 130-400 [facility] Comment on above: Performed By: #### V ITB1, ZINC #### [facility] [address] [place] [address] #### B12, FOL, CMP, PREALB, ANDREZ, CBCD #### [facility] [address] [place] [address] 22713 Platelet mean volume (Bld) [Entitic vol] 10.1 fL Normal 9.6-12.3 [facility] Comment on above: Performed By: #### V ITB1, ZINC #### [facility] [address] [place] [address] #### B12, FOL, CMP, PREALB, ANDREZ, CBCD #### [facility] [address] [place] [address] 86666 RBC (Bld) [#/Vol] 4.93 10*6/uL Normal 4.10-5.10 [facility] Comment on above: Performed By: #### V ITB1, ZINC #### [facility] [address] [place] [address] #### B12, FOL, CMP, PREALB, ANDREZ, CBCD #### [facility] [address] [place] [address] 43077 RED CELL DISTRI WIDTH 13.6 % Normal 0-14.5 [facility] Comment on above: Performed By: #### V ITB1, ZINC #### [facility] [address] [place] [address] #### B12, FOL, CMP, PREALB, ANDREZ, CBCD #### [facility] [address] [place] [address] 79595 WBC (Bld) [#/Vol] 5.7 10*3/uL Normal 4.8-10.8 [facility] Comment on above: Performed By: #### V ITB1, ZINC #### [facility] [address] [place] [address] #### B12, FOL, CMP, PREALB, ANDREZ, CBCD #### [facility] [address] [place] [address] 00115 CHEST (2 V)on 08-13-2022 [facility] Name: BATOOL KINGSLEY Phys: KAELA ARELLANO CNP : 2000 Age: 22 Sex: F Acct: [id number] Loc: RAD Exam Date: 08/13/2022 Status: REG CLI Radiology No: [id number] Unit No: [id number] EXAM# TYPE/EXAM RESULT [id number] RAD/CHEST (2 V) SEE REPORT INDICATION: Stuffy [...] CC: Technologist: WIN CHRISTIE Transcribed Date/Time: 08/13/2022 (8594) Sales Team Recruiter: OSCAR Printed Date/Time: 08/13/2022 (2487) PAGE 1 Signed Report Normal [facility] COMPREHENSIVE METABOLIC PANE Evan 08-13-2022 Albumin [Mass/Vol] 3.7 g/dL Normal 3.4-5.0 [facility] Comment on above: Performed By: #### V ITB1, ZINC #### [facility] [address] #### B12, FOL, CMP, PREALB, ANDREZ, CBCD #### [facility] [address] [place] [address] 57302 ALP [Catalytic activity/Vol] 56 U/L Normal 46-116 [facility] Comment on above: Performed By: #### V ITB1, ZINC #### [facility] [address] [place] [address] #### B12, FOL, CMP, PREALB, ANDREZ, CBCD #### [facility] [address] [place] [address] 52934 ALT [Catalytic activity/Vol] 21 U/L Normal 10-49 [facility] Comment on above: Performed By: #### V ITB1, ZINC #### [facility] [address] [place] [address] #### B12, FOL, CMP, PREALB, ANDREZ, CBCD #### [facility] [address] [place] [address] 86549 AST [Catalytic activity/Vol] 23 U/L Normal 0-34 [facility] Comment on above: Performed By: #### V ITB1, ZINC #### [facility] [address] [place] [address] #### B12, FOL, CMP, PREALB, ANDREZ, CBCD #### [facility] [address] [place] [address] Bilirubin [Mass/Vol] mg/dL Low 0.3-1.2 [facility] Comment on above: Performed By: #### V ITB1, ZINC #### [facility] [address] [place] [address] #### B12, FOL, CMP, PREALB, ANDREZ, CBCD #### [facility] [address] [place] [address] 39883 CALCIUM,TOTAL 9.2 md/dL Normal 8.7-10.4 [facility] Comment on above: Performed By: #### V ITB1, ZINC #### [facility] [address] [place] [address] #### B12, FOL, CMP, PREALB, ANDREZ, CBCD #### [facility] [address] [place] [address] 17240 Chloride [Moles/Vol] 105 mmol/L Normal 98-107 [facility] Comment on above: Performed By: #### V ITB1, ZINC #### [facility] [address] [place] [address] #### B12, FOL, CMP, PREALB, ANDREZ, CBCD #### [facility] [address] [place] [address] 00287 CO2 [Moles/Vol] 25 mmol/L Normal 20-31 [facility] Comment on above: Performed By: #### V ITB1, ZINC #### [facility] [address] [place] [address] #### B12, FOL, CMP, PREALB, ANDREZ, CBCD #### [facility] [address] [place] [address] 36808 Creatinine [Mass/Vol] 0.53 mg/dL Low 0.55-1.02 [facility] Comment on above: Performed By: #### V ITB1, ZINC #### [facility] [address] [place] [address] #### B12, FOL, CMP, PREALB, ANDREZ, CBCD #### [facility] [address] [place] [address] EST GLOM FILT > 60 Normal [facility] Comment on above: Result Comment: Result [...] #### V ITB1, ZINC #### [facility] [address] [place] [address] #### B12, FOL, CMP, PREALB, ANDREZ, CBCD #### [facility] [address] [place] [address] ESTIMATED GLOM FILT RATE > 60 Normal [facility] Comment on above: Performed By: #### V ITB1, ZINC #### [facility] [address] [place] [address] #### B12, FOL, CMP, PREALB, ANDREZ, CBCD #### [facility] [address] [place] [address] Glucose [Mass/Vol] 81 mg/dL Normal 65-99 [facility] Comment on above: Performed By: #### V ITB1, ZINC #### [facility] [address] [place] [address] #### B12, FOL, CMP, PREALB, ANDREZ, CBCD #### [facility] [address] [place] [address] 13456 Potassium [Moles/Vol] 4.5 mmol/L Normal 3.4-5.1 [facility] Comment on above: Performed By: #### V ITB1, ZINC #### [facility] [address] [place] [address] #### B12, FOL, CMP, PREALB, ANDREZ, CBCD #### [facility] [address] [place] [address] 74606 Protein [Mass/Vol] 7.0 g/dL Normal 6.0-8.0 [facility] Comment on above: Performed By: #### V ITB1, ZINC #### [facility] [address] [place] [address] #### B12, FOL, CMP, PREALB, ANDREZ, CBCD #### [facility] [address] [place] [address] 52842 Sodium [Moles/Vol] 138 mmol/L Normal 136-145 [facility] Comment on above: Performed By: #### V ITB1, ZINC #### [facility] [address] [place] [address] #### B12, FOL, CMP, PREALB, ANDREZ, CBCD #### [facility] [address] [place] [address] 74381 Urea nitrogen [Mass/Vol] 7 mg/dL Low 9-23 [facility] Comment on above: Performed By: #### V ITB1, ZINC #### [facility] [address] [place] [address] #### B12, FOL, CMP, PREALB, ANDREZ, CBCD #### [facility] [address] [place] [address] 36968 ESR (Sed Rate)on 08-13-2022 ESR (Bld) [Velocity] 20 mm/h Normal 0-20 [facility] Comment on above: Performed By: #### V ITB1, ZINC #### [facility] [address] [place] [address] #### B12, FOL, CMP, PREALB, ANDREZ, CBCD #### [facility] [address] [place] [address] 45250 CBC with DIFFERENTIALon 07-03 Basophils (Bld) [#/Vol] 0.1 10*3/uL Normal 0.0-0.1 [facility] Comment on above: Performed By: #### C MP, TSH, LIPPAN, HBA1C, CBCD, INS #### [facility] [address] [place] [address] 22073 Basophils/100 WBC (Bld) 0.7 % Normal 0.0-1.0 [facility] Comment on above: Performed By: #### C MP, TSH, LIPPAN, HBA1C, CBCD, INS #### [facility] [address] [place] [address] 49868 Eosinophils (Bld) [#/Vol] 0.3 10*3/uL Normal 0.0-0.4 [facility] Comment on above: Performed By: #### C MP, TSH, LIPPAN, HBA1C, CBCD, INS #### [facility] [address] [place] [address] 60414 Eosinophils/100 WBC (Bld) 4.3 % High 1.0-4.0 [facility] Comment on above: Performed By: #### C MP, TSH, LIPPAN, HBA1C, CBCD, INS #### [facility] [address] [place] [address] 12029 Hematocrit (Bld) [Volume fraction] 43.7 % Normal 37.0-47.0 [facility] Comment on above: Performed By: #### C MP, TSH, LIPPAN, HBA1C, CBCD, INS #### [facility] [address] [place] [address] 92677 Hemoglobin (Bld) [Mass/Vol] 13.9 g/dL Normal 12.0-16.0 [facility] Comment on above: Performed By: #### C MP, TSH, LIPPAN, HBA1C, CBCD, INS #### [facility] [address] [place] [address] 31635 IG # 0.0 10*3/uL Normal 0.0-0.1 [facility] Comment on above: Performed By: #### C MP, TSH, LIPPAN, HBA1C, CBCD, INS #### [facility] [address] [place] [address] 98864 IG % 0.4 % Normal 0.0-1.0 [facility] Comment on above: Performed By: #### C MP, TSH, LIPPAN, HBA1C, CBCD, INS #### [facility] [address] [place] [address] 52281 Lymphocytes (Bld) [#/Vol] 3.2 10*3/uL Normal 1.3-4.4 [facility] Comment on above: Performed By: #### C MP, TSH, LIPPAN, HBA1C, CBCD, INS #### [facility] [address] [place] [address] 38872 Lymphocytes/100 WBC (Bld) 42.7 % High 27.0-41.0 [facility] Comment on above: Performed By: #### C MP, TSH, LIPPAN, HBA1C, CBCD, INS #### [facility] [address] [place] [address] 79194 MCV (RBC) [Entitic vol] 90.3 fL Normal 81.0-99.0 [facility] Comment on above: Performed By: #### C MP, TSH, LIPPAN, HBA1C, CBCD, INS #### [facility] [address] [place] [address] 15476 MEAN CORPUSCULAR HGB 28.7 pg Normal 27.0-31.0 [facility] Comment on above: Performed By: #### C MP, TSH, LIPPAN, HBA1C, CBCD, INS #### [facility] [address] [place] [address] 33017 MEAN CORPUSCULAR HGB CONC 31.8 g/dl Low 33.0-37.0 [facility] Comment on above: Performed By: #### C MP, TSH, LIPPAN, HBA1C, CBCD, INS #### [facility] [address] [place] [address] Monocytes (Bld) [#/Vol] 0.4 10*3/uL Normal 0.1-1.0 [facility] Comment on above: Performed By: #### C MP, TSH, LIPPAN, HBA1C, CBCD, INS #### [facility] [address] [place] [address] 26426 Monocytes/100 WBC (Bld) 5.4 % Normal 3.0-9.0 [facility] Comment on above: Performed By: #### C MP, TSH, LIPPAN, HBA1C, CBCD, INS #### [facility] [address] [place] [address] 56727 Neutrophils (Bld) [#/Vol] 3.4 10*3/uL Normal 2.3-7.9 [facility] Comment on above: Performed By: #### C MP, TSH, LIPPAN, HBA1C, CBCD, INS #### [facility] [address] [place] [address] 97542 Neutrophils/100 WBC (Bld) 46.5 % Low 47.0-73.0 [facility] Comment on above: Performed By: #### C MP, TSH, LIPPAN, HBA1C, CBCD, INS #### [facility] [address] [place] [address] 12716 NUCLEATED RED BLOOD CELL 0.0 10*3/uL Normal 0.0-0.0 [facility] Comment on above: Performed By: #### C MP, TSH, LIPPAN, HBA1C, CBCD, INS #### [facility] [address] [place] [address] 81185 NUCLEATED RED BLOOD CELL 0.0 % Normal 0.0-0.0 [facility] Comment on above: Performed By: #### C MP, TSH, LIPPAN, HBA1C, CBCD, INS #### [facility] [address] [place] [address] PLATELET COUNT AUTOMATED 309 10*3/uL Normal 130-400 [facility] Comment on above: Performed By: #### C MP, TSH, LIPPAN, HBA1C, CBCD, INS #### [facility] [address] [place] [address] Platelet mean volume (Bld) [Entitic vol] 10.3 fL Normal 9.6-12.3 [facility] Comment on above: Performed By: #### C MP, TSH, LIPPAN, HBA1C, CBCD, INS #### [facility] [address] [place] [address] RBC (Bld) [#/Vol] 4.84 10*6/uL Normal 4.10-5.10 [facility] Comment on above: Performed By: #### C MP, TSH, LIPPAN, HBA1C, CBCD, INS #### [facility] [address] [place] [address] RED CELL DISTRI WIDTH 13.5 % Normal 0-14.5 [facility] Comment on above: Performed By: #### C MP, TSH, LIPPAN, HBA1C, CBCD, INS #### [facility] [address] [place] [address] WBC (Bld) [#/Vol] 7.4 10*3/uL Normal 4.8-10.8 [facility] Comment on above: Performed By: #### C MP, TSH, LIPPAN, HBA1C, CBCD, INS #### [facility] [address] [place] [address] COMPREHENSIVE METABOLIC PANE Eavn 07-31-2022 Albumin [Mass/Vol] 3.9 g/dL Normal 3.4-5.0 [facility] Comment on above: Performed By: #### V ITB1, ZINC #### [facility] [address] [place] [address] #### B12, FOL, CMP, PREALB, ANDREZ, CBCD #### [facility] [address] [place] [address] ALP [Catalytic activity/Vol] 60 U/L Normal 46-116 [facility] Comment on above: Performed By: #### V ITB1, ZINC #### [facility] [address] [place] [address] #### B12, FOL, CMP, PREALB, ANDREZ, CBCD #### [facility] [address] [place] [address] 65555 ALT [Catalytic activity/Vol] 23 U/L Normal 10-49 [facility] Comment on above: Performed By: #### V ITB1, ZINC #### [facility] [address] [place] [address] #### B12, FOL, CMP, PREALB, ANDREZ, CBCD #### [facility] [address] [place] [address] 75776 AST [Catalytic activity/Vol] 17 U/L Normal 0-34 [facility] Comment on above: Performed By: #### V ITB1, ZINC #### [facility] [address] [place] [address] #### B12, FOL, CMP, PREALB, ANDREZ, CBCD #### [facility] [address] [place] [address] 12389 Bilirubin [Mass/Vol] 0.3 mg/dL Normal 0.3-1.2 [facility] Comment on above: Performed By: #### V ITB1, ZINC #### [facility] [address] [place] [address] #### B12, FOL, CMP, PREALB, ANDREZ, CBCD #### [facility] [address] [place] [address] 23127 CALCIUM,TOTAL 9.6 md/dL Normal 8.7-10.4 [facility] Comment on above: Performed By: #### V ITB1, ZINC #### [facility] [address] [place] [address] #### B12, FOL, CMP, PREALB, ANDREZ, CBCD #### [facility] [address] [place] [address] Chloride [Moles/Vol] 102 mmol/L Normal 98-107 [facility] Comment on above: Performed By: #### V ITB1, ZINC #### [facility] [address] [place] [address] #### B12, FOL, CMP, PREALB, ANDREZ, CBCD #### [facility] [address] [place] [address] CO2 [Moles/Vol] 27 mmol/L Normal 20-31 [facility] Comment on above: Performed By: #### V ITB1, ZINC #### [facility] [address] [place] [address] #### B12, FOL, CMP, PREALB, ANDREZ, CBCD #### [facility] [address] [place] [address] Creatinine [Mass/Vol] 0.58 mg/dL Normal 0.55-1.02 [facility] Comment on above: Performed By: #### V ITB1, ZINC #### [facility] [address] [place] [address] #### B12, FOL, CMP, PREALB, ANDREZ, CBCD #### [facility] [address] [place] [address] EST GLOM FILT > 60 Normal [facility] Comment on above: Result Comment: Result [...] #### V ITB1, ZINC #### [facility] [address] [place] [address] #### B12, FOL, CMP, PREALB, ANDREZ, CBCD #### [facility] [address] [place] [address] 88196 ESTIMATED GLOM FILT RATE > 60 Normal [facility] Comment on above: Performed By: #### V ITB1, ZINC #### [facility] [address] [place] [address] #### B12, FOL, CMP, PREALB, ANDREZ, CBCD #### [facility] [address] [place] [address] 12060 Glucose [Mass/Vol] 73 mg/dL Normal 65-99 [facility] Comment on above: Performed By: #### V ITB1, ZINC #### [facility] [address] [place] [address] #### B12, FOL, CMP, PREALB, ANDREZ, CBCD #### [facility] [address] [place] [address] 29439 Potassium [Moles/Vol] 4.2 mmol/L Normal 3.4-5.1 [facility] Comment on above: Performed By: #### V ITB1, ZINC #### [facility] [address] [place] [address] #### B12, FOL, CMP, PREALB, ANDREZ, CBCD #### [facility] [address] [place] [address] 64340 Protein [Mass/Vol] 7.2 g/dL Normal 6.0-8.0 [facility] Comment on above: Performed By: #### V ITB1, ZINC #### [facility] [address] [place] [address] #### B12, FOL, CMP, PREALB, ANDREZ, CBCD #### [facility] [address] [place] [address] 31691 Sodium [Moles/Vol] 137 mmol/L Normal 136-145 [facility] Comment on above: Performed By: #### V ITB1, ZINC #### [facility] [address] [place] [address] #### B12, FOL, CMP, PREALB, ANDREZ, CBCD #### [facility] [address] [place] [address] Urea nitrogen [Mass/Vol] 11 mg/dL Normal 9-23 [facility] Comment on above: Performed By: #### V ITB1, ZINC #### [facility] [address] [place] [address] #### B12, FOL, CMP, PREALB, ANDREZ, CBCD #### [facility] [address] [place] [address] 57573 [id number] 07-31-2022 ESTIMATED AVERAGE GLUCOSE 100 Normal [facility] Comment on above: Performed By: #### V ITB1, ZINC #### [facility] [address] [place] [address] #### B12, FOL, CMP, PREALB, ANDREZ, CBCD #### [facility] [address] [place] [address] 38838 HbA1c (Bld) [Mass fraction] 5.1 % Normal 4.8-5.6 [facility] Comment on above: Result Comment: Standarization of method based on National Glycohemoglobin Standardization Program (NGSP). HEMOGLOBIN A1c(%) DEGREE of GLUCOSE CONTROL 5.7-6.4% Prediabetes range >6.4% Diagnosis of Diabetes <7% Glycemic control for adults with Diabetes Performed By: #### V ITB1, ZINC #### [facility] [address] [place] [address] #### B12, FOL, CMP, PREALB, ANDREZ, CBCD #### [facility] [address] [place] [address] INSULINon 07-31-2022 INSULIN 45.6 mU/L High 2.6-37.6 [facility] Comment on above: Performed By: #### V ITB1, ZINC #### [facility] [address] [place] [address] #### B12, FOL, CMP, PREALB, ANDREZ, CBCD #### [facility] [address] [place] [address] LIPID PANEL CHOLESTEROL/HDLo n 07-31-2022 Cholesterol [Mass/Vol] 170 mg/dL Normal <200 [facility] Comment on above: Performed By: #### V ITB1, ZINC #### [facility] [address] [place] [address] #### B12, FOL, CMP, PREALB, ANDREZ, CBCD #### [facility] [address] [place] [address] Cholesterol in HDL [Mass/Vol] 31 mg/dL Low 40-60 [facility] Comment on above: Performed By: #### V ITB1, ZINC #### [facility] [address] [place] [address] #### B12, FOL, CMP, PREALB, ANDREZ, CBCD #### [facility] [address] [place] [address] 74179 Cholesterol in LDL [Mass/Vol] 73 mg/dL Normal 9-159 [facility] Comment on above: Performed By: #### V ITB1, ZINC #### [facility] [address] [place] [address] #### B12, FOL, CMP, PREALB, ANDREZ, CBCD #### [facility] [address] [place] [address] Cholesterol.total/Chol esterol in HDL [Mass ratio] 5.5 {ratio} Normal [facility] Comment on above: Performed By: #### V ITB1, ZINC #### [facility] [address] [place] [address] #### B12, FOL, CMP, PREALB, ANDREZ, CBCD #### [facility] [address] [place] [address] Triglyceride [Mass/Vol] 328 mg/dL High <150 [facility] Comment on above: Result Comment: TRIGLYCERIDE RISK ASSESSMENT: 150-199 mg/dl BORDERLINE HIGH >200 mg//dl HIGH . Performed By: #### V ITB1, ZINC #### [facility] [address] [place] [address] #### B12, FOL, CMP, PREALB, ANDREZ, CBCD #### [facility] [address] [place] [address] VLDL CHOLESTEROL 66 mg/dL High 6-40 [facility] Comment on above: Performed By: #### V ITB1, ZINC #### [facility] [address] [place] [address] #### B12, FOL, CMP, PREALB, ANDREZ, CBCD #### [facility] [address] [place] [address] THYROID STIM HORMONE (HS)on 07-31-2022 THYROID STIM HORMONE (HS) 2.569 uIU/ml Normal 0.550-4.780 [facility] Comment on above: Performed By: #### V ITB1, ZINC #### [facility] [address] [place] [address] #### B12, FOL, CMP, PREALB, ANDREZ, CBCD #### [facility] [address] [place] [address] NICOTINE METABOLITE, QUANTon 07-19-2022 COTININE <1.0 Normal . [facility] Comment on above: Order Comment: FAX T O [phone] Result Comment: This test was developed and its performance characteristics determined by [facility]. It has not been cleared or approved by the Food and Drug Administration. Cotinine levels greater than 20.0 are consistent with the use of tobacco or tobacco cessation products. Performed at: [facility] [address], [place], [place] [id number] Associate Quality Engineer: Estuardo Michelle MD, Phone: [phone] Performed By: #### N ICOTINE #### [facility] [address] [place] [address] NICOTINE <1.0 Normal . [facility] Comment on above: Order Comment: FAX T O [phone] Result Comment: This test was developed and its performance characteristics determined by [facility]. It has not been cleared or approved by the Food and Drug Administration. Nicotine levels greater than 2.0 are consistent with the use of tobacco or tobacco cessation products. Performed By: #### N ICOTINE #### [facility] [address] [place] [address] HIPS BILATERAL (2V)on 2021 [facility] Name: BATOOL KINGSLEY Phys: LASHAWN WELLS NP : 2000 Age: 22 Sex: F Acct: [id number] Loc: RAD Exam Date: 06/14/2022 Status: REG CLI Radiology No: [id number] Unit No: [id number] EXAM# TYPE/EXAM RESULT [id number] RAD/HIPS BILATERAL (2V) SEE REPORT INDICATION: Sharp [...] NP Technologist: Eugene Wagner Transcribed Date/Time: 06/14/2022 (9414) Sales Team Recruiter: OSCAR Printed Date/Time: 06/14/2022 (7763) PAGE 1 Signed Report Normal [facility] Vitamin B1 (Thiamine), Whole Bloodon 05-09-2022 Vitamin B1, Whole Blood 116 nmol/L Normal 70-180 [facility] Comment on above: Result Comment: INTE RPRETIVE INFORMATION: Vitamin B1, Whole Blood This assay measures the concentration of thiamine diphosphate (TDP), the primary active form of vitamin B1. Approximately 90 percent of vitamin B1 present in whole blood is TDP. Thiamine and thiamine monophosphate, which comprise the remaining 10 percent, are not measured. This test was developed and its performance characteristics determined by [facility]. It has not been cleared or approved by the [place] Food and Drug Administration. This test was performed in a CLIA certified laboratory and is intended for clinical purposes. Performed By: [facility] [address] [place] [address] [employer] D[employer]ge: Francisco Javier Zhang MD, PhD Performed By: #### [id number] ####[facility] Reference [id number] [place] [address] Zinc, Serumon 05-07-2022 Zinc, Serum 75.6 ug/dL Normal 60.0-120.0 [facility] Comment on above: Result Comment: INTE RPRETIVE [...] developed and its performance characteristics determined by [facility]. It has not been cleared or approved by the [place] Food and Drug Administration. This test was performed in a CLIA certified laboratory and is intended for clinical purposes. Performed By: [facility] [address] [place], [place] [id number] [employer]: Francisco Javier Zhang MD, PhD Performed By: #### 2 [id number] #### [facility] Reference Lab [address] [place], [place] [id number] [facility]04 Glucose [Mass/Vol] 96 mg/dL [facility] Work Phone: QC OK? [facility] Work Phone: CBCon 05-04-2022 Hematocrit (Bld) [Volume fraction] 40.4 % 34.0 - 48.0 % [facility] Hemoglobin (Bld) [Mass/Vol] 13.2 g/dL 11.5 - 15.5 g/dL [facility] MCH (RBC) [Entitic mass] 29.9 pg 26.0 - 35.0 pg [facility] MCHC (RBC) [Mass/Vol] 32.7 % 32.0 - 34.5 % [facility] MCV (RBC) [Entitic vol] 91.6 fL 80.0 - 99.9 fL [facility] Platelet distribution width (Bld) [Ratio] 13.0 fL 11.5 - 15.0 fL [facility] Platelet mean volume (Bld) [Entitic vol] 9.8 fL 7.0 - 12.0 fL [facility] Platelets (Bld) [#/Vol] 313 10*3/uL [facility] RBC (Bld) [#/Vol] 4.41 10*6/uL [facility] WBC (Bld) [#/Vol] 9.2 10*3/uL [facility] CBC With Platelet No Differe ntialon 05-04-2022 Hematocrit (Bld) [Volume fraction] 40.4 % Normal 34.0-48.0 [facility] Hemoglobin (Bld) [Mass/Vol] 13.2 g/dL Normal 11.5-15.5 [facility] MCH (RBC) [Entitic mass] 29.9 pg Normal 26.0-35.0 [facility] MCHC 32.7 % Normal 32.0-34.5 [facility] MCV (RBC) [Entitic vol] 91.6 fL Normal 80.0-99.9 [facility] Platelet Count 313 E9/L Normal 130-450 [facility] Platelet mean volume (Bld) [Entitic vol] 9.8 fL Normal 7.0-12.0 [facility] RBC 4.41 E12/L Normal 3.50-5.50 [facility] RDW 13.0 fL Normal 11.5-15.0 [facility] WBC 9.2 E9/L Normal 4.5-11.5 [facility] Cholesterolon 05-04-2022 Cholesterol [Mass/Vol] 162 mg/dL Normal 0-[address] [facility] Cholesterol, Totalon 022 Cholesterol [Mass/Vol] 162 mg/dL 0 - 1 99 mg/dL [facility] Comprehensive Metabolic Pane evan 05-04-2022 Albumin [Mass/Vol] 4.1 g/dL Normal 3.5-5.2 [facility] ALP [Catalytic activity/Vol] 64 U/L Normal 35-104 [facility] ALT [Catalytic activity/Vol] 22 U/L Normal 0-32 [facility] Anion gap [Moles/Vol] 10 mmol/L Normal 7-16 [facility] AST [Catalytic activity/Vol] 13 U/L Normal 0-31 [facility] Bilirubin [Mass/Vol] 0.2 mg/dL Normal 0.0-1.2 [facility] Calcium [Mass/Vol] 8.9 mg/dL Normal 8.6-10.2 [facility] Chloride [Moles/Vol] 102 mmol/L Normal 98-107 [facility] CO2 [Moles/Vol] 25 mmol/L Normal 22-29 [facility] Creatinine [Mass/Vol] 0.7 mg/dL Normal 0.5-1.0 [facility] GFR Calculated >60 Normal >=60 [facility] Comment on above: Result Comment: [...] Glucose [Mass/Vol] 96 mg/dL Normal 74-99 [facility] Potassium [Moles/Vol] 4.5 mmol/L Normal 3.5-5.0 [facility] Protein [Mass/Vol] 6.9 g/dL Normal 6.4-8.3 [facility] Sodium [Moles/Vol] 137 mmol/L Normal 132-146 [facility] Urea nitrogen [Mass/Vol] 17 mg/dL Normal 6-20 [facility] Albumin [Mass/Vol] 4.1 g/dL 3.5 - 5.2 g/dL [facility] ALP (Bld) [Catalytic activity/Vol] 64 U/L 35 - 104 U/L [facility] ALT [Catalytic activity/Vol] 22 U/L 0 - 32 U/L [facility] Anion gap [Moles/Vol] 10 mmol/L 7 - 16 mmol/L [facility] AST [Catalytic activity/Vol] 13 U/L 0 - 31 U/L [facility] Bilirubin [Mass/Vol] 0.2 mg/dL 0.0 - 1 .2 mg/dL [facility] Calcium [Mass/Vol] 8.9 mg/dL 8.6 - 10. 2 mg/dL [facility] Chloride [Moles/Vol] 102 mmol/L 98 - 10 7 mmol/L [facility] CO2 [Moles/Vol] 25 mmol/L 22 - 29 mmol/L [facility] Creatinine [Mass/Vol] 0.7 mg/dL 0.5 - 1.0 mg/dL [facility] GFR/1.73 sq M.predicted MDRD (S/P/Bld) [Vol rate/Area] mL/min/1.73 60 - PINF mL/min/1.73 [facility] Comment on above: Pediatric calculator link https://www.kidney.org/professionals/kdoqi/gfr_calculatorped [...] [Mass/Vol] 96 mg/dL 74 - 99 mg/dL [facility] Potassium [Moles/Vol] 4.5 mmol/L 3.5 - 5.0 mmol/L [facility] Protein [Mass/Vol] 6.9 g/dL 6.4 - 8.3 g/dL [facility] Sodium [Moles/Vol] 137 mmol/L 132 - 146 mmol/L [facility] [employer] Urea nitrogen (BldV) [Mass/Vol] 17 mg/dL 6 - 20 mg/dL [facility] Ferritinon 05-04-2022 Ferritin [Mass/Vol] 69 ng/mL Normal [facility] Comment on above: Result Comment: FERR ITIN Reference Ranges: Adult Males 20 - 60 years: 30 - 400 ng/mL Adult females 17 - 60 years: 13 - 150 ng/mL Adults greater than 60 years: no established reference range Pediatrics: no established reference range Folateon 05-04-2022 Folate 8.5 ng/mL Normal 4.8-24.2 [facility] Hgb A1Con 05-04-2022 HbA1c (Bld) [Mass fraction] 5.7 % High 4.0-5.6 [facility] METER GLUCOSEon 05-04-2022 Glucose [Mass/Vol] 93 mg/dL Normal 74-99 [facility] Glucose [Mass/Vol] 96 mg/dL Normal 74-99 [facility] No Panel Informationon 05-04 [facility] Work Phone: POC Urine Qualon 1 07-04-2021 Beta HCG ( test) Ql (U) Negative Negative [employer] Work Phone: Lot Number [id number] [employer] Phone: Negative QC Pass/Fail Pass [employer] Phone: Positive QC Pass/Fail Pass [employer] Phone: [employer] Phone: POCT Glucoseon 05-04-2022 Glucose [Mass/Vol] 93 mg/dL 74 - 99 mg/dL [facility] Glucose [Mass/Vol] 96 mg/dL 74 - 99 mg/dL [facility] Prealbuminon 05-04-2022 Prealbumin [Mass/Vol] 24 mg/dL Normal 20-40 [facility] Surgical Specimenon 05-04-20 Surgical Specimen [facility] [address] [facility] [address] [address] FINAL SURGICAL PATHOLOGY REPORT NAME: BATOOL KINGSLEY Date of 05/04/2022 Collection: Medical Record [id number] Date of 05/04/2022 Number: Receipt: Age: 22 Y Sex: F Date 05/11/2022 08:29 Reported: Date Of : 2000 Financial [id number] Admitting DERIC FLORENCE Number: Physician: Patient DIS [...] submitted. Block label: A1. (JORGE L:YAYA) CODES: [id number]; Department of Pathology Page 1 of 1 Normal [facility] Triglycerideon 05-04-2022 Interpretation and review of laboratory results Abnormal [facility] Triglyceride [Mass/Vol] 274 mg/dL High 0 - 149 mg/dL [facility] Triglycerideson 05-04-2022 Triglyceride [Mass/Vol] 274 mg/dL High 0-149 [facility] Vitamin B12on 05-04-2022 Cobalamin (Vitamin B12) [Mass/Vol] 226 pg/mL Normal 211-946 [facility] US GALLBLADDER RUQon 022 US GALLBLADDER RUQ [...] Rohit Dowling MD 05/02/22 Final result Normal [facility] Comment on above: Order Comment: Reaso n for exam:->Indigestion What reading provider will be dictating this exam?->CRC CBC Auto DifferentialOrdered By: Win Narvaez on 03-27-2021 Basophils (Bld) [#/Vol] 0.05 10*3/uL [employer] Phone: Basophils/100 WBC (Bld) 0.5 % 0.0 - 2.0 % [employer] Phone: Eosinophils Absolute 0.37 [employer] Phone: Eosinophils/100 WBC (Bld) 3.8 % 0.0 - 6.0 % [employer] Phone: Hematocrit (Bld) [Volume fraction] 39.5 % 34.0 - 48.0 % [employer] Phone: Hemoglobin.gastrointes tinal spec 1 Ql (Stl) 12.6 g/dL 11.5 - 15.5 g/dL [employer] Phone: Immature Granulocytes # 0.18 E9/L [employer] Phone: Immature granulocytes/100 WBC (Bld) 1.8 % 0.0 - 5.0 % [employer] Phone: Interpretation and review of laboratory results Abnormal [employer] Phone: Lymphocytes Absolute 3.73 [employer] Phone: Lymphocytes/100 WBC (Bld) 38.2 % 20.0 - 42.0 % [employer] Phone: MCH (RBC) [Entitic mass] 28.9 pg 26.0 - 35.0 pg [employer] Phone: MCHC (RBC) [Mass/Vol] 31.9 % Low 32.0 - 34.5 % [employer] Phone: MCV (RBC) [Entitic vol] 90.6 fL 80.0 - 99.9 fL [employer] Phone: Monocytes Absolute 0.46 [employer] Phone: Monocytes/100 WBC (Bld) 4.7 % 2.0 - 12.0 % [employer] Phone: Neutrophils Absolute 4.97 [employer] Phone: Neutrophils/100 WBC (Bld) 51.0 % 43.0 - 80.0 % [employer] Phone: Platelet distribution width (Bld) [Ratio] 13.3 fL 11.5 - 15.0 fL [employer] Phone: Platelet mean volume (Bld) [Entitic vol] 9.7 fL 7.0 - 12.0 fL [employer] Phone: Platelets (Bld) [#/Vol] 281 10*3/uL [employer] Phone: RBC (Bld) [#/Vol] 4.36 10*6/uL [employer] Phone: WBC (Bld) [#/Vol] 9.8 10*3/uL [employer] Phone: Comprehensive Metabolic Pane l w/ Reflex to MGOrdered By: Win Narvaez on 03-27-2021 Albumin [Mass/Vol] 4.2 g/dL 3.5 - 5.2 g/dL [employer] Phone: ALP (Bld) [Catalytic activity/Vol] 64 U/L 35 - 104 U/L [employer] Phone: ALT [Catalytic activity/Vol] 19 U/L 0 - 32 U/L [employer] Phone: Anion gap [Moles/Vol] 12 mmol/L 7 - 16 mmol/L [employer] Phone: AST [Catalytic activity/Vol] 14 U/L 0 - 31 U/L [employer] Phone: Bilirubin [Mass/Vol] mg/dL 0.0 - 1 .2 mg/dL [employer] Phone: Calcium [Mass/Vol] 9.1 mg/dL 8.6 - 10. 2 mg/dL [employer] Phone: Chloride [Moles/Vol] 103 mmol/L 98 - 10 7 mmol/L [employer] Phone: CO2 [Moles/Vol] 22 mmol/L 22 - 29 mmol/L [employer] Phone: Creatinine [Mass/Vol] 0.5 mg/dL 0.5 - 1.0 mg/dL [employer] Phone: Free PSA/Total PSA [Mass fraction] 7.1 g/dL 6.4 - 8.3 g/dL [employer] Phone: GFR >60 [employer] Phone: GFR Non- >60 >=60 mL/min/1.73 [employer] Phone: Comment on above: Chronic Kidney Disea se: less than 60 ml/min/1.73 sq.m. Kidney Failure: less than 15 ml/min/1.73 sq.m. Results valid for patients 18 years and older. Glucose [Mass/Vol] 107 mg/dL High 74 - 99 mg/dL [employer] Phone: Interpretation and review of laboratory results Abnormal [employer] Phone: Potassium [Moles/Vol] 4.2 mmol/L 3.5 - 5.0 mmol/L [employer] Phone: Sodium [Moles/Vol] 137 mmol/L 132 - 146 mmol/L [employer] Phone: Urea nitrogen (BldV) [Mass/Vol] 9 mg/dL 6 - 20 mg/dL [employer] Phone: [employer] Phone: Microscopic UrinalysisOrdere d By: Win Narvaez on 03-27-2021 Bacteria, UA FEW Abnormal None Seen /HPF [employer] Phone: Epithelial Cells, UA FEW /HPF [employer] Phone: Interpretation and review of laboratory results Abnormal [employer] Phone: RBC, UA 2-5 [employer] Phone: WBC, UA 0-1 [employer] Phone: [employer]ova Phone: No Panel InformationOrdered By: Win Narvaez on 03-27-2021 [employer] Phone: POC Urine QualOrde red By: Win Narvaez on 03-27-2021 Beta HCG ( test) Ql (U) Negative Negative [employer] Phone: Beta HCG ( test) Ql (U) [id number] [employer] Phone: Negative QC Pass/Fail Pass [employer] Phone: Positive QC Pass/Fail Pass [employer] Phone: US PELVIS COMPLETEOrdered By : Tien Oneal on 03-27-2021 The bilateral ovaries are mildly enlarged, right greater than left. Otherwise, unremarkable pelvic ultrasound. [employer] Phone: EXAMINATION: PELVIC ULTRASOUND 03/27/2021 TECHNIQUE: Multiple [...] Free Fluid: No evidence of free fluid. [employer] Phone: Antonio, Mhy Incoming Radiant Results From [employer] - 03/27/2021 3:01 PM EDT EXAMINATION: PELVIC [...] greater than left. Otherwise, unremarkable pelvic ultrasound. [facility] [employer] Work Phone: [facility] Work Phone: UrinalysisOrdered By: Win Narvaez on 03-27-2021 Bilirubin Urine Negative Negative [facility] Work Phone: Blood, Urine LARGE Abnormal Negative [facility] Work Phone: Clarity, UA Clear Clear [facility] Work Phone: Color, UA Yellow Straw/Yellow [facility] [employer] Work Phone: Glucose, Ur Negative Negative mg/dL [facility] Work Phone: Interpretation and review of laboratory results Abnormal [facility] [employer] Work Phone: Ketones Ql (U) Negative Negative mg/dL [facility] Work Phone: Leukocyte esterase Test strip Ql (U) Negative Negative [facility] Work Phone: Nitrite, Urine Negative Negative [facility] Work Phone: pH, UA 5.0 [facility] [employer] Work Phone: Protein, UA TRACE Negative mg/dL [facility] Work Phone: Specific [place], UA >=1.030 [facility] [employer] Work Phone: Urobilinogen, Urine 0.2 <2.0 E.U./dL [facility] Work Phone: [facility] Work Phone: NOSE/THROAT CULTUREon 2020 NOSE/THROAT CULTURE RUN DATE: 07/10/20 Laboratory LIVE PAGE 1 RUN TIME: 951 Specimen Inquiry RUN USER: INTERFACE [facility] Department of Laboratories [address] [place], [place] [id number] PATIENT: BATOOL KINGSLEY LOC: BHARGAVIEUGENIEGILMER U #: [id number] HOME PHONE: DAVID/SX: ROOM: RE07/08/[address]: Ameena Corcoran APRN.HAND PASTER : 99 BED: DIS: STATUS: REG REF LAB O/S: Specimen: [id number] Collected: 07/08/20 Status: COMP Req#: [id number] Received: 07/08/20 Source: THROAT Sp Desc: Subm Dr: Ameena Corcoran APRN.CNP Ordered: NOSE/THRT CULT Procedure Result Verified > NOSE/THROAT CULTURE Final 07/10/20 HEAVY GROWTH OF NORMAL ARIN END OF REPORT Normal [facility] Comment on above: Performed By: #### [address] #### [facility] [place] [id number] Vital Signs Date Time Vital Sign Value Performing Clinician Facility 05-25-2024 14:30-0500 Body weight 123.74 kg [employer] Work Phone: [facility] 05-25-2024 14:30-0500 Diastolic blood pressure 70 mm[Hg] [employer] Work Phone: [facility] 05-25-2024 14:30-0500 Systolic blood pressure 120 mm[Hg] [employer] Work Phone: [facility] 04-21-2024 15:02-0400 Body weight 118.84 kg [employer] Work Phone: [facility] 04-21-2024 15:02-0400 Diastolic blood pressure 74 mm[Hg] [employer] Work Phone: [facility] 04-21-2024 15:02-0400 Systolic blood pressure 116 mm[Hg] [employer] Work Phone: [facility] 04-07-2024 14:38-0400 Body weight 118.3 kg Kierra HUNT Work Phone: [facility] 04-07-2024 14:38-0400 Diastolic blood pressure 70 mm[Hg] Kierra HUNT Work Phone: [facility] 04-07-2024 14:38-0400 Systolic blood pressure 120 mm[Hg] Kierra HUNT Work Phone: [facility] 10-30-2022 08:56-0400 SaO2% (BldA) [Mass fraction] 97 % Deric Florence MD Work Phone: [facility] 10-30-2022 05:00-0400 Body temperature 97.9 [degF] Deric Florence MD Work Phone: [facility] 10-30-2022 05:00-0400 Diastolic blood pressure 74 mm[Hg] Deric Florence MD Work Phone: [facility] 10-30-2022 05:00-0400 Heart rate 74 /min Deric Florence MD Work Phone: [employer] 10-30-2022 05:00-0400 Respiratory rate 18 /min Deric Florence MD Work Phone: [employer] [facility] 10-30-2022 05:00-0400 Systolic blood pressure 126 mm[Hg] Deric Florence MD Work Phone: [employer] [facility] 10-29-2022 06:50-0400 Body height 170.2 cm Deric Florence MD Work Phone: [facility] [employer] 10-29-2022 06:50-0400 Body mass index (BMI) [Ratio] 55.6 kg/m2 Deric Florence MD Work Phone: [facility] [employer] 10-29-2022 06:50-0400 Body weight 161.03 kg Deric Florence MD Work Phone: [employer] 10-24-2022 12:17-0400 Body height 170.2 cm Sjwz 2 [employer] 10-24-2022 12:17-0400 Body mass index (BMI) [Ratio] 55.44 kg/m2 Sjwz 2 [facility] [employer] 10-24-2022 12:17-0400 Body temperature 98.01 [degF] Sjwz 2 [employer] 10-24-2022 12:17-0400 Body weight 160.57 kg Sjwz 2 [facility] [employer] 10-24-2022 12:17-0400 Diastolic blood pressure 62 mm[Hg] Sjwz 2 [facility] [employer] 10-24-2022 12:17-0400 Heart rate 77 /min Sjwz 2 [facility] [employer] 10-24-2022 12:17-0400 Respiratory rate 16 /min Sjwz 2 [facility] [employer] RACHAEL [employer] 10-24-2022 12:17-0400 SaO2% (BldA) [Mass fraction] 95 % Sjwz 2 [facility] [employer] 10-24-2022 12:17-0400 Systolic blood pressure 117 mm[Hg] Sjwz 2 [facility] [employer] 05-04-2022 08:55-0400 Body temperature 98.29 [degF] Deric Florence MD Work Phone: [employer] 05-04-2022 08:55-0400 Diastolic blood pressure 68 mm[Hg] Deric Florence MD Work Phone: [employer] 05-04-2022 08:55-0400 Heart rate 83 /min Deric Florence MD Work Phone: [employer] 05-04-2022 08:55-0400 Respiratory rate 16 /min Deric Florence MD Work Phone: [employer] 05-04-2022 08:55-0400 SaO2% (BldA) [Mass fraction] 92 % Deric Florence MD Work Phone: [employer] 05-04-2022 08:55-0400 Systolic blood pressure 128 mm[Hg] Deric Florence MD Work Phone: [employer] 05-04-2022 07:06-0400 Body height 170.2 cm Deric Florence MD Work Phone: [employer] 05-04-2022 07:06-0400 Body mass index (BMI) [Ratio] 61.21 kg/m2 Deric Florence MD Work Phone: [employer] 05-04-2022 07:06-0400 Body weight 177.27 kg Deric Florence MD Work Phone: [employer] 03-27-2021 20:08-0400 Heart rate 95 /min Tien Oneal DO Work Phone: [employer] Work Phone: 03-27-2021 13:47-0400 Body height 170.2 cm Tien Jm [employer] Work Phone: [employer] Work Phone: 03-27-2021 13:47-0400 Body mass index (BMI) [Ratio] 54.82 kg/m2 Tien Oneal [employer] Work Phone: [employer] Work Phone: 03-27-2021 13:47-0400 Body temperature 97.11 [degF] Tien Oneal DO Work Phone: [employer] Work Phone: 03-27-2021 13:47-0400 Body weight 158.76 kg Tien Oneal DO Work Phone: [employer] Work Phone: 03-27-2021 13:47-0400 Diastolic blood pressure 80 mm[Hg] Tien Oneal DO Work Phone: [employer] Work Phone: 03-27-2021 13:47-0400 Respiratory rate 16 /min Tien Oneal [employer] Work Phone: [employer] Work Phone: 03-27-2021 13:47-0400 SaO2% (BldA) [Mass fraction] 98 % Tien Oneal DO Work Phone: [employer] Phone: 03-27-2021 13:47-0400 Systolic blood pressure 173 mm[Hg] Tien Oneal DO Work Phone: [employer] Phone: Encounters Encounter Date Encounter Type Care Provider Facility Start: 05-25-2024 End: 05-25-2024 Bamboo flowsheet Bryan Manisha DO Work Phone: [facility] Start: 05-25-2024 End: 05-25-2024 Bamboo flowsheet Bryan Manisha DO Work Phone: [facility] Start: 05-25-2024 End: 05-25-2024 Office outpatient visit 15 minutes Bryan Manisha DO Work Phone: [facility] Comment on above: 34 weeks gestation o f ; Third trimester ; Insomnia, unspecified type; History of gastric bypass; Gestational diabetes mellitus (GDM), antepartum, gestational diabetes method of control unspecified Start: 05-25-2024 End: 05-25-2024 ambulatory BRYAN MANISHA Not Available Start: 05-06-2024 End: 05-06-2024 Office outpatient visit 15 minutes Kirera HUNT Work Phone: [facility] Comment on above: Third trimester preg agatha; 31 weeks gestation of ; Anxiety, generalized (CMS/HCC); Sinusitis, unspecified chronicity, unspecified location Start: 05-06-2024 End: 05-06-2024 ambulatory KIERRA RIVAS Not Available Start: 05-06-2024 End: 05-06-2024 Bamboo flowsheet Kierra HUNT Work Phone: [facility] Start: 05-06-2024 End: 05-06-2024 Bamboo flowsheet Kierra HUNT Work Phone: [facility] Start: 04-21-2024 End: 04-21-2024 Office outpatient visit 15 minutes Bryan Manisha DO Work Phone: [facility] Comment on above: Third trimester preg agatha; 29 weeks gestation of ; Anemia during in third trimester; Elevated glucose tolerance test; Abnormal thyroid stimulating hormone (TSH) level Start: 04-21-2024 End: 04-21-2024 ambulatory BRYAN MANISHA Not Available Start: 04-21-2024 End: 04-21-2024 Bamboo flowsheet Bryan Manisha DO Work Phone: [facility] Start: 04-21-2024 End: 04-21-2024 Bamboo flowsheet Bryan Manisha DO Work Phone: [facility] Start: 04-21-2024 End: 04-21-2024 Clinisync Result Encounter Bryan Manisha DO Work Phone: [facility] External Department Unsolicited Start: 04-07-2024 End: 04-07-2024 Office outpatient visit 15 minutes Kierra HUNT Work Phone: [facility] Comment on above: 27 weeks gestation o f ; Second trimester ; Gestational diabetes mellitus (GDM), antepartum, gestational diabetes method of control unspecified; Anemia affecting in second trimester Start: 04-07-2024 End: 04-07-2024 ambulatory KIERRA RIVAS Not Available Start: 04-07-2024 End: 04-07-2024 Bamboo flowsheet Kierra HUNT Work Phone: [facility] Start: 04-07-2024 End: 04-07-2024 Bamboo flowsheet Kierra HUNT Work Phone: [facility] Start: 03-17-2024 End: 03-17-2024 [facility] Start: 03-09-2024 End: 03-09-2024 ambulatory BRYAN MANISHA Not Available Start: 02-17-2024 End: 02-17-2024 ambulatory BRYAN R MANISHA [facility] Start: 02-10-2024 End: 02-10-2024 ambulatory BRYAN MANISHA Not Available Start: 01-07-2024 End: 01-07-2024 ambulatory BRYAN MANISHA Not Available Start: 12-12-2023 End: 12-12-2023 ambulatory BRYAN MANISHA Not Available Start: 11-10-2023 End: 11-10-2023 Emergency department patient visit NO PCP NO PCP [facility] Start: 08-14-2023 End: 08-14-2023 Emergency department patient visit TRAVIS VALLEJO [facility] Start: 12-14-2022 ambulatory [facility] Facility:[facility] Start: 12-03-2022 ambulatory [facility] Facility:[facility] Start: 11-06-2022 ambulatory [facility] Facility:[facility] Start: 10-29-2022 End: 10-30-2022 Evaluation and management of inpatient [facility] Start: 10-29-2022 End: 10-30-2022 Evaluation and management of inpatient Deric Florence MD Work Phone: [facility] SURG Comment on above: Post-operative state (Primary Dx); Morbid obesity (HCC) Start: 10-24-2022 End: 10-25-2022 ambulatory [facility] Start: 10-24-2022 Encounter for other preprocedural examination [facility] Start: 10-24-2022 End: 10-24-2022 [facility] Start: 10-24-2022 End: 10-24-2022 Subsequent hospital visit by physician Hans Pat Room 2 [facility] PRE ADMIT TESTING Comment on above: Preop testing (Prima ry Dx); Malnutrition following gastrointestinal surgery Start: 10-04-2022 ambulatory [facility] Facility:[facility] Start: 08-13-2022 ambulatory [facility] Facility:[facility] Start: 07-31-2022 ambulatory [facility] Facility:[facility] Start: 07-13-2022 ambulatory [facility] Facility:[facility] Start: 06-14-2022 ambulatory KAELA GILLIAN Facility:[facility] Start: 05-04-2022 End: 05-04-2022 ambulatory KAELA ARELLANO [facility] Start: 05-04-2022 End: 05-04-2022 Subsequent hospital visit by physician Deric Florence MD Work Phone: [facility] ENDOS[facility] Comment on above: Morbid obesity due t o excess calories (HCC); Gastroesophageal reflux disease Start: 05-02-2022 End: 05-05-2022 ambulatory DERIC FLORENCE [facility] Start: 03-27-2021 End: 03-27-2021 Emergency department patient visit Tien Judd Patriciarhonda DO Work Phone: [facility] Comment on above: DUB (dysfunctional u terine bleeding) (Primary Dx) Procedures Date Procedure Procedure Detail Performing Clinician Start: 05-25-2024 Urnls dip stick/tabl et rgnt non-auto w/o micrscp Bryan Manisha DO Work Phone: Start: 05-06-2024 Urnls dip stick/tabl et rgnt non-auto w/o micrscp Kierra HUNT Work Phone: Start: 04-21-2024 ALL CBC WITH AUTO DIFF Bryan Manisha DO Work Phone: Start: 04-07-2024 Urnls dip stick/tabl et rgnt non-auto w/o micrscp Kierra HUNT Work Phone: Start: 10-30-2022 INCENTIVE SPIROMETRY RT KAELA GILLIAN [...] Basic metabolic panel calcium total Yang Hsu [employer] - [employer] Work Phone: Start: 10-30-2022 Lipid panel Yang Girish barlow [employer] SAL[employer] - 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 Work Phone: Start: 10-30-2022 Gluc bld gluc [...] Start: 10-29-2022 Hemoglobin glycosylated a1c Yang Hsu [employer] SAL[employer]ENT - HAND PASTER Work Phone: Start: 10-29-2022 Gluc bld gluc mntr d ev cleared fda spec home use Unknown Provider Result Start: 05-01-2023 ADMIT TO INPATIENT KAELA GILLIAN Start: 10-29-2022 Level iv surg pathol ogy gross&microscopic exam KAELA GILLIAN Start: 10-29-2022 Gluc bld gluc mntr d ev cleared fda spec home use KAELA GILLIAN Start: 10-29-2022 IP CONSULT TO IV TEAM S ISABELL SOTOSE Start: 10-29-2022 FULL CODE KAELA GILLIAN Start: [...] Start: 05-04-2022 Urine test visual color cmprsn methfranc Israel MD Work Phone: Start: 05-04-2022 Gluc [...] Blood count complete auto&auto difrntl wbc Win Ricoyaron LEMONC Work Phone: Start: 03-27-2021 Urinalysis microscopic only Win Ricoyaron BARNES Work Phone: Start: 03-27-2021 End: 03-27-2021 Urnls dip stick/tablet rgnt auto w/o microscopy Win Ricoyaron BARNES Work Phone: Start: 03-27-2021 Us pelvic nonobstetr ic real-time image complete Tien Judd Jm DO Work Phone: Plan of Treatment Date Care Activity Detail Author Start: 06-10-2024 End: 06-10-2024 Patient encounter procedure 06/10/2024 1:30 PM EST Routine [facility] [address] [facility] [address] [place] [phone] Bryan Dyer, DO [address] [facility] [place] [address] [facility] Start: 05-25-2024 End: 05-25-2024 Patient encounter procedure [facility] Comment on above: Arrived Start: 05-25-2024 End: 05-25-2025 US biophysical profile w non stress test US biophysical profile w non stress test Imaging Routine 34 weeks gestation of History of gastric bypass Gestational diabetes mellitus (GDM), antepartum, gestational diabetes method of control unspecified Expected: 05/25/2024 (Approximate), Expires: 05/25/2025 [facility] Work Phone: Comment on above: Expected: 05/25/2024 (Approximate), Expi res: 05/25/2025 Start: 05-06-2024 End: 05-06-2024 Patient encounter procedure [facility] Comment on above: Arrived Start: 05-06-2024 End: 05-06-2024 Professional / ancillary services management 05/06/2024 3:00 PM EST Ancillary Procedure [facility] [address] [facility] [place] [place] [id number] [facility] Start: 04-21-2024 End: 04-21-2024 Patient encounter procedure 04/21/2024 2:30 PM EDT Routine [facility] [address] [facility] [place] [phone] Bryan Dyer DO [address] [place] [address] Arrived [facility] Comment on above: Arrived Start: 04-21-2024 End: 04-21-2025 US for US OB SCAN FOR GROWTH Imaging Routine Elevated glucose tolerance test Abnormal thyroid stimulating hormone (TSH) level Expected: 04/21/2024 (Approximate), Expires: 04/21/2025 [facility] Comment on above: Expected: 04/21/2024 (Approximate), Expi res: 04/21/2025 Start: 04-07-2024 End: 04-07-2024 Patient encounter procedure 04/07/2024 2:40 PM EDT Routine [facility] [address] [place] [phone] Kierra Rivas PA [address] [facility] [place] [address] Arrived [facility] Comment on above: Arrived Start: 04-07-2024 End: 04-07-2025 US for US OB SCAN FOR GROWTH Imaging Routine Gestational diabetes mellitus (GDM), antepartum, gestational diabetes method of control unspecified Anemia affecting in second trimester Expected: 04/07/2024 (Approximate), Expires: 04/07/2025 [facility] Work Phone: Comment on above: Expected: 04/07/2024 (Approximate), Expi res: 04/07/2025 Start: 10-31-2023 GFR test (Diabetes, CKD 3-4, OR last GFR 15-59) GFR test (Diabetes, CKD 3-4, OR last GFR 15-59) [facility] Start: 10-31-2023 Lipid panel Lipids [facility] Start: 10-30-2023 Hemoglobin A1c measurement A1C test (Diabetic or Prediabetic) [facility] Start: 10-25-2023 GFR test (Diabetes, CKD 3-4, OR last GFR 15-59) GFR test (Diabetes, CKD 3-4, OR last GFR 15-59) [facility] Start: 05-04-2023 Hemoglobin A1c measurement A1C test (Diabetic or Prediabetic) [facility] Start: 05-04-2023 Lipid panel Lipids [facility] Start: 01-29-2023 Influenza vaccination Flu vaccine (Season Ended) [facility] Start: 11-14-2022 End: 11-14-2022 Patient encounter procedure 11/14/2022 Office Visit Bariatrics Deric Florence MD [address] [place] [address] [facility] [place] [facility] Weight Start: 10-29-2022 End: 10-29-2022 Admission to same day surgery center 10/29/2022 Surgery IP Unit Deric Florence MD [address] [facility] [place] [address] GASTRIC BYPASS NUNO-EN-Y LAPAROSCOPICNEEDS IV TEAM [facility] Comment on above: GASTRIC BYPASS NUNO-EN-Y LAPAROSCOPICN EEDS IV TEAM Start: 10-29-2022 End: 10-29-2022 Laps gstr rstcv px w/byp nuno-en-y limb <150 cm GASTRIC BYPASS NUNO-EN-Y LAPAROSCOPIC Morbid obesity (HCC) 10/29/2022 9:00 AM EDT [facility] Start: 10-29-2022 Subsequent hospital visit by physician 10/29/2022 Hospital Encounter IP Unit Deric Florence MD [address] [place] [address] [facility] Start: 05-11-2022 End: 05-11-2022 Patient encounter procedure [facility] [place] [facility] Weight Start: 05-04-2022 End: 05-04-2022 Egd transoral biopsy single/multiple EGD ESOPHAGOGASTRODUODENOSCOPY Gastroesophageal reflux disease 05/04/2022 8:18 AM EDT [facility] Start: 01-29-2022 Influenza vaccination Flu vaccine (#1) [facility] Start: 03-01-2021 Influenza vaccination Flu vaccine (#1) [facility] [employer] Work Phone: Start: 01-22-2020 Screening for malignant neoplasm of cervix Pap smear [facility] Start: 09-23-2019 Hepatitis B vaccine (3 of 3 - Risk 3-dose series) Hepatitis B vaccine (3 of 3 - Risk 3-dose series) [facility] Start: 2018 DTaP/Tdap/Td vaccine (1 - Tdap) DTaP/Tdap/Td vaccine (1 - Tdap) [facility] Start: 2017 Glaucoma screening Diabetic retinal exam [facility] Start: 2017 Hepatitis C screening Hepatitis C screen [facility] Start: 2017 Urine screening for protein Diabetic Alb to Cr ratio (uACR) test [facility] Start: 2015 Screening for Chlamydia trachomatis [facility] Start: 2014 HIV screening HIV screen [facility] Start: 2011 COVID-19 Vaccine (1) COVID-19 Vaccine (1) [facility] [employer] Work Phone: Start: 2011 Depression Monitoring Depression Monitoring [facility] [employer] [facility] Start: 2011 Depression Screen Depression Screen [facility] Start: 2010 HPV vaccine (1 - 2-dose series) HPV vaccine (1 - 2-dose series) [facility] Start: 2009 Diabetic foot examination Diabetic foot exam [facility] Start: 2005 Pneumococcal 0-64 years Vaccine (1 - PCV) Pneumococcal 0-64 years Vaccine (1 - PCV) [facility] Start: 01-22-2000 Varicella vaccine (1 of 2 - 2-dose childhood series) Varicella vaccine (1 of 2 - 2-dose childhood series) [facility] Start: 1999 COVID-19 Vaccine (#1) COVID-19 Vaccine (#1) [facility] Start: 1999 Hepatitis C screening Hepatitis C screen [employer] Phone: End: 10-29-2023 Basic metabolic 2000 panel - Serum or Plasma Basic Metabolic Panel Lab Routine Daily for 365 Days starting 10/30/2022 until 10/29/2023, 1 completed [employer] Phone: Comment on above: Daily for 365 Days starting 10/30/2022 u ntil 10/29/2023, 1 completed End: 10-29-2023 CBC W Auto Differential panel - Blood CBC with Auto Differential Lab Routine Daily for 365 Days starting 10/30/2022 until 10/29/2023, 1 completed [employer] Phone: Comment on above: Daily for 365 Days starting 10/30/2022 u ntil 10/29/2023, 1 completed CBC W Auto Differential panel - Blood CBC and differential Lab Routine Anemia during in third trimester Ordered: 04/21/2024 [facility] [employer] Work Phone: Comment on above: Ordered: 04/21/2024 End: 03-27-2021 Culture, Urine Culture, Urine Microbiology Routine One Time for 1 Occurrences starting 03/27/2021 until 03/27/2021 [employer] Phone: Comment on above: One Time for 1 Occurrences starting 03/02 until 03/27/2021 End: 05-04-2022 Cyanocobalamin vitamin b-12 [employer] Phone: Comment on above: 1 Occurrences starting 05/04/2022 until 05/04/2022 End: 05-04-2022 Ferritin [Mass/volume] in Serum or Plasma [employer] Phone: Comment on above: 1 Occurrences starting 05/04/2022 until 05/04/2022 End: 05-04-2022 Folate [employer] Phone: Comment on above: 1 Occurrences starting 05/04/2022 until 05/04/2022 Glucose [Mass/volume ] in Serum or Plasma [employer] Phone: Comment on above: 4X Daily (AC & HS) until discontinued st arting 10/29/2022 As Needed until disc ontinued starting 10/29/2022 End: 05-04-2022 Hemoglobin A1c/Hemoglobin.total in Blood [employer] Phone: Comment on above: 1 Occurrences starting 05/04/2022 until 05/04/2022 End: 10-30-2022 Hemoglobin A1c/Hemoglobin.total in Blood Hemoglobin A1C Lab Routine Tomorrow AM for 1 Occurrences starting 10/30/2022 until 10/30/2022 [employer] Phone: Comment on above: Tomorrow AM for 1 Occurrences starting 0 10/30/2022 until 10/30/2022 Hemoglobin A1c/Hemoglobin.total in Blood Hemoglobin A1C Lab Routine 10/30/2022 4:51 AM EDT [employer] Phone: End: 10-29-2023 Hepatic function 2000 panel - Serum or Plasma Hepatic Function Panel Lab Routine Daily for 365 Days starting 10/30/2022 until 10/29/2023, 1 completed [employer] Phone: Comment on above: Daily for 365 Days starting 10/30/2022 u ntil 10/29/2023, 1 completed End: 10-29-2023 Magnesium [Mass/volume] in Serum or Plasma Magnesium Lab Routine Daily for 365 Days starting 10/30/2022 until 10/29/2023, 1 completed [employer] Phone: Comment on above: Daily for 365 Days starting 10/30/2022 u ntil 10/29/2023, 1 completed Nasal Cannula Oxygen Nasal Cannu la Oxygen Respiratory Care Routine Daily until discontinued starting 10/30/2022 [employer] Phone: Comment on above: Daily until discontinued starting 2022 Oxygen therapy [Minimum Data Set] Initiate Oxygen Therapy Protocol Respiratory Care Routine As Needed until discontinued starting 10/29/2022 [employer] Phone: Comment on above: As Needed until discontinued starting End: 10-29-2023 Phosphate [Mass/volume] in Serum or Plasma Phosphorus Lab Routine Daily for 365 Days starting 10/30/2022 until 10/29/2023, 1 completed [employer] Phone: Comment on above: Daily for 365 Days starting 10/30/2022 u ntil 10/29/2023, 1 completed End: 05-04-2022 Prealbumin [Mass/volume] in Serum or Plasma [employer] Phone: Comment on above: 1 Occurrences starting 05/04/2022 until 05/04/2022 End: 10-29-2022 Spirometry panel [employer] Phone: Comment on above: Continuous until discontinued starting 0 10/29/2022 Every 2hr while awak e until discontinued starting 10/29/2022 Surgical Pathology Surgical Path ology Lab Routine Gastroesophageal reflux disease Release Upon Ordering for 1 Occurrences starting 05/04/2022 [employer] Phone: Comment on above: Release Upon Ordering for 1 Occurrences starting 05/04/2022 Surgical Pathology Surgical Path ology Lab Routine Morbid obesity (HCC) Release Upon Ordering for 1 Occurrences starting 10/29/2022 [employer] Phone: Comment on above: Release Upon Ordering for 1 Occurrences starting 10/29/2022 End: 05-04-2022 Vitamin B1 Vitamin B1 Lab Routine Morbi d obesity due to excess calories (HCC) 1 Occurrences starting 05/04/2022 until 05/04/2022 [employer] Phone: Comment on above: 1 Occurrences starting 05/04/2022 until 05/04/2022 End: 05-04-2022 Zinc Zinc Lab Routine Morbid obes ity due to excess calories (HCC) 1 Occurrences starting 05/04/2022 until 05/04/2022 [employer] Phone: Comment on above: 1 Occurrences starting 05/04/2022 until 05/04/2022 Immunizations Immunization Date Immunization Notes Care Provider Lito enriquez 10-24-2020 tuberculin skin test ; purified protein derivative solution, intradermal Sjwz 2 [facility] Phone: 05-25-2019 hepatitis B vaccine, adult dosage Sjwz 2 [facility] Phone: 04-01-2019 hepatitis B vaccine, adult dosage Sjwz 2 [facility] Phone: 04-01-2019 meningococcal B vacc ine, recombinant, OMV, adjuvanted Sjwz 2 [facility] Phone: 04-01-2019 tuberculin skin test ; purified protein derivative solution, intradermal Sjwz 2 [employer] Phone: Payers Date Payer Category Payer Medicaid [employer] [place] [id number] 2023-Present [address] [place] [address] [id number] 2023 Private Health Insurance [facility] MEDICAID [id number] 2020 Private Health Insurance [id number] [id number]. 7.3.389209.315 2020 Private Health Insurance [id number] 1.2.840.673477.1.13.239.2. 7.3.951929.315 1999 Unknown [id number] 2.16.840.1.037451.3.579.2. 204 1999 Unknown [id number] 2.16.840.1.669785.3.579.2. 204 1999 Unknown [id number] 2.16.840.1.710993.3.579.2. 204 1999 Unknown [id number] 2.16.840.1.236012.3.579.2. 204 1999 Unknown [id number] 2.16840.1.318474.3.579.2. 128 1999 Unknown [id number] 2.16.840.1.460003.3.579.2. 128 1999 Unknown [id number] 2.16.840.1.513850.3.579.2. 1285 1999 Unknown [id number] 2.16.840.1.203634.3.579.2. 128 1999 Unknown [id number] 2.16.840.1.348058.3.579.2. 128 1999 Unknown [id number] 2.16.840.1.734738.3.579.2. 1259 1999 Unknown [id number] 2.16.840.1.045737.3.579.2. 1258 1999 Unknown [id number] 2.16.840.1.488916.3.579.2. 9 1999 Unknown [id number] 2.16.840.1.284831.3.579.2. 1258 1999 Unknown [id number] 2.16.840.1.720469.3.579.2. 1259 1999 Unknown [id number] 2.16.840.1.983069.3.579.2. 1259 1999 Unknown [id number] 2.16.840.1.893825.3.579.2. 1259 1999 Unknown [id number] 2.16.840.1.516561.3.579.2. 1259 Unknown [id number] 2.16.840.1.067856.3.579.2. 212 Unknown [id number] 2.16.840.1.844512.3.579.2. 212 Unknown [id number] 2.16.840.1.149312.3.579.2. 212 Unknown [id number] 2.16.840.1.481194.3.579.2. 212 Unknown [id number] 2.16.840.1.127718.3.579.2. 212 Unknown [id number] 2.16.840.1.031009.3.579.2. 212 Unknown [id number] 2.16.840.1.633318.3.579.2. 212 Unknown [id number] 2.16.840.1.806376.3.579.2. 212 Unknown [id number] 2.16.840.1.714154.3.579.2. 212 Social History Date Type Detail Facility Tobacco smoking stat [facility] Unknown if ever smoked [employer] Phone: Start: 2000 Sex Assigned At Not on file [facility] Phone: Start: 04-23-2022 End: 05-03-2022 Exposure to SARS-CoV-2 (event) Not sure [employer] Start: 05-03-2022 End: 10-24-2022 Tobacco smoking status [facility] Ex-smoker [facility] Phone: End: 12-29-2021 History of tobacco use Current smoker [employer] Phone: End: 12-29-2021 History of tobacco use Cigarette Smoker [employer] Phone: Start: 05-03-2022 End: 12-12-2023 Tobacco use and exposure Smokeless tobacco non-user [employer] Phone: Start: 05-04-2022 End: 10-30-2022 Alcohol intake Current drinker of alcohol (finding) [employer] Phone: Start: 05-03-2022 Tobacco Comment Quit 12/2021 [facility] [employer] Phone: Start: 05-03-2022 Alcohol Comment occ [employer] Phone: Start: 10-29-2022 History SDOH Alcohol Frequency 1 [employer] Phone: Start: 12-12-2023 Tobacco smoking stat [facility] Never smoked tobacco [facility] Start: 03-09-2024 End: 05-25-2024 Alcoholic beverage intake Ex-drinker (finding) [facility] Start: 12-12-2023 End: 03-09-2024 Alcoholic beverage intake [facility] Start: 12-12-2023 Tobacco use panel [facility] Start: 10-13-2023 [facility] Notes 05-04-2022 to 05-25-2024 Mary Zhao LPN - 05/25/2024 2:00 PM MARILEE Wise - 05/06/2024 3:30 PM Stacy Dan LPN - 04/21/2024 2:30 PM MARILEE Ott - 04/07/2024 2:40 PM EDTDischarge InstructionsAttachments Note Date & Type Note Facility 05-25-2024 History of Present illness Narrative Reason for Appointment: Patient ID: Batool Kingsley is a 24 y.o. female who presents for Routine Visit Patient presents today for Return OB appointment. MEDICATIONS Current Outpatient Medications Medication Instructions albuterol HFA 90 mcg/act inhaler cholecalciferol (Vitamin D-3) 50 MCG (1999) capsule 1 capsule, Every 24 hours diphenhydrAMINE (BENADRYL ALLERGY) 25 mg, Oral, Every 6 hours PRN iron polysaccharides (PROFE) 391.3 mg, Oral, Daily Vit-Fe Fumarate-FA ( Plus/Iron) 27-1 MG tablet 1 tablet, Oral, Daily ALLERGIES No Known Allergies PROBLEMS Active Ambulatory Problems Diagnosis Date Noted History of gastric bypass 05/25/2024 Gestational diabetes mellitus (GDM), antepartum 05/25/2024 Resolved Ambulatory Problems Diagnosis Date Noted No [...] SYSTEMS Review of Systems: Review of Systems All other systems reviewed and are negative. OBJECTIVE Objective: Physical Exam Constitutional: Appearance: Normal appearance. She is well-developed. Cardiovascular: Rate and Rhythm: Normal rate and regular rhythm. Pulmonary: Effort: Pulmonary effort is normal. Breath sounds: Normal breath sounds. Abdominal: General: Bowel sounds are normal. There is no distension. Palpations: Abdomen is soft. Tenderness: There is no abdominal tenderness. There is no guarding or rebound. Musculoskeletal: General: No swelling. Normal range of motion. Right lower leg: No edema. Left lower leg: No edema. Neurological: Mental Status: She is alert and oriented to person, place, and time. Skin: General: Skin is warm and dry. Psychiatric: Mood and Affect: Mood normal. Behavior: Behavior normal. Vitals and nursing note reviewed. Exam conducted with a software product manager present. Vitals: There is no height or weight on file to calculate BMI. BP: 120/70 Patient's last menstrual period was 09/29/2023. ASSESSMENT & PLAN ICD-10-CM 1. 34 weeks gestation of Z3A.34 POCT urinalysis dipstick manually resulted US biophysical profile w non stress test 2. Third trimester Z34.93 POCT urinalysis dipstick manually resulted 3. Insomnia, unspecified type G47.00 diphenhydrAMINE (Benadryl Allergy) 25 MG capsule 4. History of gastric bypass Z98.84 US biophysical profile w non stress test 5. Gestational diabetes mellitus (GDM), antepartum, gestational diabetes method of control unspecified O24.419 US biophysical profile w non stress test Patient presents today for a routine obstetrics appointment. Patient is currently 34w1d with a Estimated Date of Delivery: 07/05/24. Ordered NST/BPP for patient to have scheduled starting this week. Order faxed to [facility] Scheduling and [facility]. Gave patient handouts for [facility]. Patient to return to clinic in 2 weeks for routine OB appointment. Patient will have GBS done at that time. Documented by Mary Zhao LPN on behalf of: Bryan Dyer DO documented in this encounter [facility] 05-06-2024 History of Present illness Narrative Reason for [...] Exam Constitutional: Appearance: Normal appearance. She is normal weight. HENT: Head: Normocephalic. Cardiovascular: Rate and Rhythm: Normal rate. Pulses: Normal pulses. Pulmonary: Effort: Pulmonary effort is normal. Breath sounds: Normal breath sounds. Abdominal: Palpations: Abdomen is soft. Musculoskeletal: General: Normal range of motion. Neurological: General: No focal deficit present. Mental Status: She is alert and oriented to person, place, and time. Psychiatric: Mood and Affect: Mood normal. Behavior: Behavior normal. Thought Content: Thought content normal. Judgment: Judgment normal. Vitals and nursing note reviewed. Vitals: There is no height or weight on file to calculate BMI. BP: Patient's last menstrual period was 09/29/2023. ASSESSMENT & PLAN ICD-10-CM 1. Third trimester Z34.93 POCT urinalysis dipstick manually resulted 2. 31 weeks gestation of Z3A.31 Return OB: Patient presents today for a routine obstetrics appointment. Patient is currently 31w3d . Patient states she is doing well but has complaints of being tired due to current . Patient has verbalizes frequent movement. labor precautions was discussed/given and patient was instructed to perform kick counts three times a day. Orders Placed This Encounter Procedures POCT urinalysis dipstick manually resulted Follow Up: Patient is to return to office in 2 week for routine OB appointment. Documented by MARILEE Espinosa on behalf of: MARILEE Espinosa documented in this encounter [facility] 04-21-2024 History of Present illness Narrative Reason for Appointment: Patient ID: Batool Kingsley is a 24 y.o. female who presents for Routine Visit Patient presents today for Return OB appointment. MEDICATIONS Current Outpatient Medications Medication Instructions albuterol HFA 90 mcg/act inhaler cholecalciferol (Vitamin D-3) 50 MCG (1999) capsule 1 capsule, Every 24 hours iron [...] Exam Constitutional: Appearance: Normal appearance. She is well-developed. Cardiovascular: Rate and Rhythm: Normal rate and regular rhythm. Pulmonary: Effort: Pulmonary effort is normal. Breath sounds: Normal breath sounds. Abdominal: General: Bowel sounds are normal. There is no distension. Palpations: Abdomen is soft. Tenderness: There is no abdominal tenderness. There is no guarding or rebound. Musculoskeletal: General: No swelling. Normal range of motion. Right lower leg: No edema. Left lower leg: No edema. Neurological: Mental Status: She is alert and oriented to person, place, and time. Skin: General: Skin is warm and dry. Psychiatric: Mood and Affect: Mood normal. Behavior: Behavior normal. Vitals and nursing note reviewed. Exam conducted with a software product manager present. Vitals: There is no height or weight on file to calculate BMI. BP: 116/74 Patient's last menstrual period was 09/29/2023. ASSESSMENT & PLAN ICD-10-CM 1. Third trimester Z34.93 2. 29 weeks gestation of Z3A.29 Return OB: Patient presents today for a routine obstetrics appointment. Patient is currently 29w2d . Patient states she is doing well but has complaints of being tired due to current . Patient has verbalizes frequent movement. labor precautions was discussed/given and patient was instructed to perform kick counts three times a day. No orders of the defined types were placed in this encounter. Follow Up: Patient is to return to office in 2 week for routine OB appointment. Documented by Marnie Dan LPN on behalf of: Bryan Dyer DO documented in this encounter [facility] 04-07-2024 History of Present illness Narrative Reason for Appointment: Patient ID: Batool Kingsley is a 24 y.o. female who presents for Routine Visit Patient presents today for Return OB appointment. MEDICATIONS Current Outpatient Medications Medication Instructions albuterol HFA 90 mcg/act inhaler cholecalciferol (Vitamin D-3) 50 MCG (1999) capsule 1 capsule, Every 24 hours iron [...] nursing note reviewed. Exam conducted with a software product manager present. Vitals: There is no height or [...] of: MARILEE Espinosa documented in this encounter [place] [id number] Hospital Discharge instructions Lashawn Ordoñez RN - 10/30/2022 6:49 AM EDT Your information: Name: Batool Kingsley : 2000 Dr[address] Florence's Discharge Instructions for Bariatric Surgery [facility] Discharge Instructions For Bariatric [...] blood sugars as ordered by PCP or Life Coach. Follow up with PCP or Life Coach regarding diabetic medications. Make sure you take any medicines you were on for depression or anxiety. FOLLOW-UP Follow-up appointment with surgeon 10-14 days after surgery. Complete lab work prior to this appointment. Follow-up with PCP and/or Life Coach prior to seeing surgeon. CALL [facility] [phone] IF ANY OF THE FOLLOWING OCCURS TO [...] Weapons (Notify Protective Services/Security): None Other Valuables: [employer], [employer] Home Medications: None Valuables Given To: [...] through Care Everywhere.Gastric Bypass Surgery: Nuno-en-Y: Post-op (Telugu)documented in this encounter [facility] [employer] Phone: 10-30-2022 Hospital course Narrative Physician Discharge Summary Batool Kingsley [id number] Admit date: 10/29/2022 Discharge date and time: [...] Your Medications These medications were sent to [facility], [place] - [address] [facility] - P [phone] - F [phone] [address] [facility] [id number] traMADol 50 MG tablet Activity: no lifting, [...] 6:48 AM documented in this encounter [facility] [employer] Phone: 10-30-2022 History of Present illness Narrative Internal Medicine Progress Note NATHALIE=[facility] Shanta Hernandez D.O., F.A.C.O.I. Christin Mason D.O., F.A.C.O.I. Juliocesar Werner D.O. Francine Kilpatrick, MSN, INSIDE SALES AGENT, PANEL MONITOR-C Yang Hsu, MSN, INSIDE SALES AGENT-HAND PASTER Primary Care Physician: KAELA ARELLANO APRN - HAND PASTER Admitting Physician: Deric Florence MD Admission date and time: 10/29/2022 6:02 AM Room: [address] [place] [address] Admitting diagnosis: Morbid obesity (HCC) [E66.01] Post-operative [...] reflux disease with possible hiatal hernia repair Syg-mxqtvdv-oglbtzmao diabetes mellitus type 2 Anxiety Plan: Batool [...] 6:37 AM documented in this encounter [facility] Work Phone: 10-24-2022 History of Present illness Narrative Images from the original note were not included. [facility] PRE OP INSTRUCTIONS FOR Batool Kingsley [...] makeup (including no eye makeup) or nail eritrean on your fingers or toes. DO NOT wear any jewelry or piercings on day of surgery. All body piercing jewelry must be removed. Shower the night before surgery with _x__Antibacterial soap /CHG WIPES___x If you have a Living Will and Durable Power of Account Services Specialist for Healthcare, please bring in a copy. [...] and go to information desk Please call ELECTRIC WELL LOGGING OPERATOR if you have any further questions. Pre Admit Testing [phone] [facility] [facility] [phone] documented in this encounter [facility] [employer] Phone: 05-04-2022 Hospital Discharge instructions Ashlie Goyal [...] the day after the test, use an shxw-qwq-yizuscq spray to numb your throat. Follow-up care [...] Where can you learn more? Go to [email or web address] and sign in to your [employer] account. Enter J454 in the Search Health Information box to learn more about Upper GI Endoscopy: What to Expect at Home. If you do not have an account, please click on the Sign Up Now link. Current as of: December 04, 2021 Content Version: 13.4 [employer]. Care instructions adapted under license by [employer]. If you have questions about a medical condition or this instruction, always ask your healthcare professional. [employer] disclaims any warranty or liability for your use of this information. documented in this encounter [facility] Work Phone: 05-04-2022 History of Present illness Narrative SBAR form completed and placed on chart. Chart with patient in transit. Images from the original note were not included. [facility] PRE OP INSTRUCTIONS FOR Batool Kingsley [...] makeup (including no eye makeup) or nail eritrean on your fingers or toes. DO NOT wear any jewelry or piercings on day of surgery. All body piercing jewelry must be removed. Shower the night before surgery with _x__Antibacterial soap /ALEXANDER WIPES TOTAL JOINT REPLACEMENT/HYSTERECTOMY PATIENTS ONLY---Remember to bring Blood Bank bracelet to the hospital on the day of surgery. If you have a Living Will and Durable Power of Account Services Specialist for Healthcare, please bring in a copy. [...] safety of all patients. Other Please call ELECTRIC WELL LOGGING OPERATOR if you have any further questions. Pre Admit Testing [phone] [employer] [place] [phone] documented in this encounter [employer] Phone: Evaluation note Diagnosis DUB (dysfunctional uterine bleeding)- Primary Other disorder of menstruation and other abnormal bleeding from female genital tract documented in this encounter [employer] Phone: evaluation note* Diagnosis Gastroesophageal reflux disease- Primary Esophageal reflux Morbid obesity due to excess calories (HCC) documented in this encounter [employer] Phone: evaluation note* Diagnosis Morbid obesity (HCC)- Primary Morbid obesity Preop testing- Primary Preoperative examination, unspecified 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 Morbid obesity (HCC) Morbid obesity documented in this encounter [employer] Phone: evaluation note* Diagnosis S/P gastric bypass- Primary Bariatric surgery status Morbid obesity (HCC) Morbid obesity Post-operative state Other postprocedural status Morbid obesity (HCC) Morbid obesity Post-operative state Other postprocedural status documented in this encounter [facility]OR[facility]IP[facility] [employer] Phone: evaluation note* Diagnosis 27 weeks gestation of Second trimester state, incidental Gestational diabetes mellitus (GDM), antepartum, gestational diabetes method of control unspecified Anemia affecting in second trimester documented in this encounter [facility]* Diagnosis Third trimester state, incidental 29 weeks gestation of Anemia during in third trimester Elevated glucose tolerance test Impaired glucose tolerance test Abnormal thyroid stimulating hormone (TSH) level documented in this encounter [facility]* Diagnosis Third trimester state, incidental 31 weeks gestation of Anxiety, generalized (CMS/HCC) Sinusitis, unspecified chronicity, unspecified location documented in this encounter [facility]* Diagnosis 34 weeks gestation of Third trimester state, incidental Insomnia, unspecified type History of gastric bypass Gestational diabetes mellitus (GDM), antepartum, gestational diabetes method of control unspecified documented in this encounter [facility] Healthcare[facility]ospital Discharge instructions* Attachments The following attachments cannot be sent through Care Everywhere. * AUB (Abnormal Uterine Bleeding) (Telugu) [email or web address]: Summary Purpose Family History No Family [...] section and content) DATE CREATED AUTHOR 07/16/2020 [facility] [place] DATE CREATED AUTHOR AUTHOR'S ORGANIZ ATION 05/05/2022 [facility] DATE CREATED AUTHOR AUTHOR'S ORGANIZ ATION 02/07/2023 [facility] DATE CREATED AUTHOR AUTHOR'S ORGANIZ ATION 06/04/2023 [facility] DATE CREATED AUTHOR AUTHOR'S ORGANIZ ATION 02/19/2024 [facility] DATE CREATED AUTHOR AUTHOR'S ORGANIZ ATION 03/19/2024 [facility] DATE CREATED AUTHOR AUTHOR'S ORGANIZ ATION 05/27/2024 [facility] dical Specialists EPIC Reason for Visit (unrecogniz ed section and content) Reason Comments Vaginal Bleeding 4 pad per hour, larg e clots present Specialty Diagnoses / Procedures Referred By Geronimo reardon Referred To Contact Diagnoses Gastroesophageal reflux disease Gastroesophageal reflux disease [K21.9] Procedures RI EGD TRANSORAL BIOPSY SINGLE/MULTIPLE RI EGD TRANSORAL BIOPSY SINGLE/MULTIPLE RI ESOPHAGOGASTRODUODENOSCOPY TRANSORAL DIAGNOSTIC RI EGD BALLOON DILATION ESOPHAGUS <30 MM DIAM EGD ESOPHAGOGASTRODUODENOSCOPY Deric Florence MD [address] [place] [address] [employer] [facility] [address] [place] [address] Referral ID Status Reason Start Date Expiration Date Visits Re quested Visits Authorized [id number] 1 1 Specialty Diagnoses / Procedures Referred By Geronimo reardon Referred To Contact Diagnoses Morbid obesity (HCC) Morbid obesity (HCC) [E66.01] Procedures RI LAPS GSTR RSTCV PX W/BYP NUNO-EN-Y LIMB <150 CM GASTRIC BYPASS NUNO-EN-Y LAPAROSCOPIC Deric Florence MD [address] [place] [address] [facility] [address] [place] [address] Referral ID Status Reason Start Date Expiration Date Visits Re quested Visits Authorized [id number] 1 1 Reason Comments Routine Visit Continuous [...] 100 mL IVPB (COMPLETED) 3,000 mg, IntraVENous, ROLLER GOLD LEAF TO O.R., 1 dose, On Sat10/29/22 at [...] Fu RN) 0028 (Given - Provider: Jennifer Huff, MELANIA)0516 (Given - Provider: Jennifer Huff RN)1215 (Due)1815 [...] RN)1836 (Rate/Dose Verify - Provider: Dena Fu RN)203 (New Bag - Provider: Jennifer Huff, RN) 0506 (New Bag - Provider: Jennifer Huff, RN) PRN Medication Order 10/28/2022 10/29/2022 10/30/2022 [...] of order., Post-op bupivacaine-EPINEPHrine PF (MARCAINE-w/EPINEPHrine) 0.25% -[id number] injection (CANCELED) PRN, Starting on Sat10/29/22 at [...] Post-op 2030 (Given - Provider: Jennifer Huff, MELANIA) 0356 (Given - Provider: Isak Bradshaw, RN)0856 (See Alternative - Provider: Helen Bradford [...] Isak Bradshaw, RN)0856 (Given - Provider: Helen Bradford RN) ondansetron (ZOFRAN) injection 4 mg 4 [...]
Care Teams (unrecognized sec tion and content) Medical Transcription Radiology Relationship Specialty Start Date End Date Kaela Arellano, INSIDE SALES AGENT - HAND PASTER [address] [facility] [address] PCP - General Certified Nurse Practitioner 04/27/22 Medical Transcription Radiology Relationship Specialty Start Date End Date Kaela Arellano APRN - [facility] [address] [place] [address] PCP - General Certified Nurse Practitioner 09/14/22 Medical Transcription Radiology Relationship Specialty Start Date End Date Kaela Arellano APRN - [facility] [address] [place] [address] PCP - General Certified Nurse Practitioner 09/14/22 [...] BE BASED ON THE PRIMARY CLINICAL RECORDS. [employer] provides no warranty or guarantee of the accuracy or completeness of information in this document.
--- NOTE | 2024-05-30 12:56 | US_ITS ---
[address] [address] Patient Name: CARLO KINGSLEY MRN: [facility]:[id number] date: 2000 Sex: F Assigned Patient Location: [facility] Current Patient Location: Accession/Order Number: [id number] Exam Date: 05/30/2024 13:00 Report Date: 05/31/2024 06:13 At the request of: STEPHANIE WEST Procedure: US OB BPP w non-stress EXAMINATION: US OB BPP w non-stress HISTORY:Gestational diabetes mellitus COMPARISON: No relevant comparison available. TECHNIQUE: ULTRASOUND OB GROWTH 05/06/2024 BREATHING MOVEMENTS: 2 GROSS BODY MOVEMENTS: 2 TONE: 2 QUALITATIVE AMNIOTIC FLUID VOLUME: 2 PRESENTATION: CEPHALIC HEART RATE: 146.74 bpm AMNIOTIC FLUID VOLUME: 15.14 cm GESTATIONAL AGE: 34 weeks 6 days US/US OB BPP w non-stress IMPRESSION: Total biophysical profile score: 8 Electronically authenticated by: MAGALIE BARROS Date: 05/31/2024 06:13
[2024-05-30 13:46] VITALS: BP 122/57; PULSE 75
== END 2024-05-30 13:52 | disposition home or self-care (01) ==
LOC: FBCO 07:33 → FBC 13:08
PROVIDERS: Visit Provider Obstetrics & Gynecology
DX: O24.419 Gestational diabetes mellitus in pregnancy, unspecified control (principal); Z3A.34 34 weeks gestation of pregnancy; Z98.84 Bariatric surgery status
CPT/HCPCS: 76818

== ENCOUNTER 2024-06-03 06:22 | Outpatient (OUT) | payer OTHER, SELFPAY ==
--- OUTSIDE RECORDS SUMMARY | 2024-06-03 06:26 | XMS_ITS | CCD ---
Author Organization [facility] Care Team Providers Care Vocational Evaluator Name Role Phone Unavailable Primary Care Provider Unavailabl e Eileen EYELET OPERATOR - SHERIE, Kaela Primary Care Provider [phone] DERIC FLORENCE Referring Unavailable EILEEN, KAELA Primary Care Unavailable Pryor EYELET OPERATOR - EMERGENCY DEPT TECH, Kaela Primary Care Provider [phone] EILEEN, KAELA Primary Care Unavailable DERIC FLORENCE [...] Primary Care Unavailable VAHE FLORENCE Attending Unavailable ESE DYERY R Referring Unavailable NO PCP, NO PCP [...] Drug Class(es) Dates Sig (Normalized) Sig (Original) [id number] 200 actuat albuterol 0.09 mg/actuat metered dose [...] UA Negative Negative - 4(70) +++ mg/dL [facility] Blood, UA Negative Negative - 50 Marcus/mcL [facility] Clarity, UA Clear [facility] re Color, UA Yellow [facility] Glucose, UA Negative Negative - 2000(110) ++++ mg/dL [facility] Interpretation and review of laboratory results Normal [facility] Ketones, UA Negative Negative - 160(16) ++++ mg/dL [facility] Leukocytes, UA Negative Negative - 500+++ Henrique/mcL [facility] Nitrite, UA Negative Negative - Positive [facility] pH, UA 5.5 5 - 9 [facility] Protein, UA Negative Negative - 1999(20) ++++ mg/dL [facility] Spec Grav, UA 1.03 1 - 1.03 [facility] Urobilinogen, UA 0.2 0.2 - 12 mg/dL [facility] Urinalysis macro (dipstick) panel (U)on 05-06-2024 Bilirubin, UA Positive Negative - (70) +++ mg/dL [facility] Comment on above: small Blood, UA Negative Negative - 50 Marcus/mcL [facility] Clarity, UA Clear [facility] re Color, UA Yellow [facility] e Glucose, UA Negative Negative - 1999(110) ++++ mg/dL [facility] Interpretation and review of laboratory results Abnormal [facility] Ketones, UA Negative Negative - 160(16) ++++ mg/dL [facility] Leukocytes, UA Negative Negative - 500+++ Henrique/mcL [facility] Nitrite, UA Negative Negative - Positive [facility] pH, UA 5.5 5 - [facility], UA Negative Negative - 1999(20) ++++ mg/dL [facility] Spec Grav, UA 1.03 1 - 1.03 [facility] Urobilinogen, UA 1.0 0.2 - 12 mg/dL [facility] ALL CBC WITH AUTO DIFFon BASOPHILS ABSOLUTE AUTO 0 [facility] Basophils/100 WBC (Bld) 0.2 % 0.2 - 2.0 % [facility] Eosinophils/100 WBC (Bld) 1.7 % 0.9 - 7.0 % [facility] Erythrocyte distribution width (RBC) [Ratio] 12.8 % 11.0 - 15.0 % [facility] Hematocrit (Bld) [Volume fraction] 33.8 % Low 36.0 - 48.0 % [facility] Hemoglobin (Bld) [Mass/Vol] 11.6 g/dL Low 12.0 - 16.0 g/dL [facility] IMMATURE GRANULOCYTES ABS AUTO 0.06 High [facility] Immature granulocytes/100 WBC (Bld) 0.6 % High 0.0 - 0.5 % [facility] Interpretation and review of laboratory results Abnormal [facility] LYMPHOCYTES ABSOLUTE AUTO 3.1 [facility] Lymphocytes/100 WBC (Bld) 31.7 % 20.5 - 60.0 % [facility] MCH (RBC) [Entitic mass] 32 pg 26.7 - 34.0 pg [facility] MCHC (RBC) [Mass/Vol] 34.3 g/dL 29.9 - 35.2 g/dL [facility] MCV (RBC) [Entitic vol] 93.1 fL 81.0 - 99.0 fL [facility] MONOCYTES ABSOLUTE AUTO 0.5 [facility] Monocytes/100 WBC (Bld) 5.1 % 1.7 - 12.0 % [facility] NEUTROPHILS ABSOLUTE AUTO 5.9 [facility] Neutrophils/100 WBC (Bld) 60.7 % 43.0 - 75.0 % [facility] Platelet mean volume (Bld) [Entitic vol] 10.2 fL 9.5 - 13.5 fL [facility] TBH EO # 0.2 [facility] [address] [facility] e TB RBC 3.63 Low [facility] TB WBC 9.6 [facility] Urinalysis macro (dipstick) panel (U)on 04-07-2024 Bilirubin, UA Negative Negative - 4(70) +++ mg/dL [facility] Blood, UA Negative Negative - 50 Marcus/mcL [facility] Clarity, UA Clear [facility] re Color, UA Yellow [facility] e Glucose, UA Negative Negative - 1999(110) ++++ mg/dL [facility] Interpretation and review of laboratory results Normal [facility] Ketones, UA Negative Negative - 160(16) ++++ mg/dL [facility] Leukocytes, UA Negative Negative - 500+++ Henrique/mcL [facility] Nitrite, UA Negative Negative - Positive [facility] pH, UA 6.5 5 - [address] [facility] e Protein, UA Negative Negative - 1999(20) ++++ mg/dL [facility] Spec Grav, UA 1.025 1 - 1.03 [facility] Urobilinogen, UA 1.0 0.2 - 12 mg/dL [facility] HCG ( test) Ql (U)o n 11-10-2023 Beta HCG ( test) Ql (U) Positive Abnormal NEG [facility] Comment on above: Performed By: #### 2 106-3 #### [facility] ([id number]) [address] [place] [address] 21558 URN MACROSCOPIC NURon 2023 BILIRUBIN [place] Negative Normal NEG [facility] Comment on above: Performed By: #### N UM #### [facility] ([id number]) [address] [place] [address] 91113 BLOOD/HGB [place] Trace Abnormal NE[facility] Comment on above: Performed By: #### N UM #### [facility] ([id number]) [address] [place] [address] 61424 GLUCOSE [place] Negative Normal NEG [facility] Comment on above: Performed By: #### N UM #### [facility] ([id number]) [address] [place] [address] 93499 KETONES [place] Trace Abnormal NEG [facility] Comment on above: Performed By: #### N UM #### [facility] ([id number]) [address] [place] [address] 86666 LEUKOCYTE ESTERASE [place] Small Abnormal NEG [facility] Comment on above: Performed By: #### N UM #### [facility] ([id number]) [address] [place] [address] 58788 NITRITE [place] Negative Normal NEG [facility] Comment on above: Performed By: #### N UM #### [facility] ([id number]) [address] [place] [address] 52151 PH [place] 6.0 Normal 5.0-8.5 [facility] Comment on above: Performed By: #### N UM #### [facility] ([id number]) [address] [facility], [place] [address] PROTEIN [place] Negative Normal NEG [facility] Comment on above: Performed By: #### N UM #### [facility] ([id number]) [address] [place] [address] SPECIFIC GRAVITY [place] 1.025 Normal 1.003-1.035 [facility] Comment on above: Performed By: #### N UM #### [facility] ([id number]) [address] [place] [address] 68675 UROBILINOGEN [place] 2.0 eu/dL High <1.1 [facility] Comment on above: Performed By: #### N UM #### [facility] ([id number]) [address] [place] [address] 07306 SARS/FLU A+B/RSV by NAAT/Mol ecularon 08-14-2023 SARS/FLU [...] operators who are performing tests using either Reesio or Dealdrive systems and is limited to laboratories that [...] repeat. Fact Sheet for Healthcare Providers: https://www.fda.gov /media/137707/downl oad Fact Sheet for Patients: https://www.fda.gov /media/635976/downl oad Normal [facility] Comment on above: Performed By: #### C OVFLR #### [facility] ([id number]) [address] [place] [address], [place] [address] VITAMIN B1-THIAMINE WHOLE BL Don 12-20-2022 VITAMIN B1-THIAMINE WHOLE BLD 142.2 nmol/L Normal 66.5-200.[address] [facility] Comment on above: Order Comment: FAX R ESULTS TO DR FLORENCE: [phone] Result Comment: This test was developed and its performance characteristics determined by [facility]. It has not been cleared or approved by the Food and Drug Administration. Performed at: [address] [id number] [employer] Driver: Estuardo Michelle MD, Phone: [phone] This test was developed and its performance characteristics determined by [email or web address]. It has not been cleared or approved by the Food and Drug Administration. Performed By: #### V ITB1, ZINC #### [facility] [address] [place] [address] #### B12, FOL, CMP, PREALB, ANDREZ, CBCD #### [facility] [address] [place] [address] ZINC, PLASMAon 12-18-2022 ZINC, PLASMA 86 ug/dL Normal 44-115 [facility] Comment on above: Order Comment: JENNIFER COLIN TO DR FLORENCE: [phone] Result Comment: This test was developed and its performance characteristics determined by [facility]. It has not been cleared or approved by the Food and Drug Administration. Detection Limit = 5 Performed at: [address] [id number] [employer] Driver: Estuardo Michelle MD, Phone: [phone] This test was developed and its performance characteristics determined by [facility]. It has not been cleared or approved by the Food and Drug Administration. Performed By: #### V ITB1, ZINC #### [facility] [address] [place] [address] #### B12, FOL, CMP, PREALB, ANDREZ, CBCD #### [facility] [address] [place] [address] CBC with DIFFERENTIALon 11-29 Basophils (Bld) [#/Vol] 0.0 10*3/uL Normal 0.0-0.[address] [facility] Comment on above: Order Comment: JENNIFER COLIN TO DR FLORENCE: [phone] Performed By: #### V ITB1, ZINC #### [facility] [address] [place] [address] #### B12, FOL, CMP, PREALB, ANDREZ, CBCD #### [facility] [address] [place] [address] Basophils/100 WBC (Bld) 0.5 % Normal 0.0-1.[address] [facility] Comment on above: Order Comment: JENNIFER COLIN TO DR FLORENCE: [phone] Performed By: #### V ITB1, ZINC #### [facility] [address] [place] [address] #### B12, FOL, CMP, PREALB, ANDREZ, CBCD #### [facility] [address] [place] [address] Eosinophils (Bld) [#/Vol] 0.4 10*3/uL Normal 0.0-0.[address] [facility] Comment on above: Order Comment: FAMaximo COLIN TO DR FLORENCE: [phone] Performed By: #### V ITB1, ZINC #### [facility] [address] [place] [address] #### B12, FOL, CMP, PREALB, ANDREZ, CBCD #### [facility] [address] [place] [address] Eosinophils/100 WBC (Bld) 4.8 % High 1.0-4.[address] [facility] Comment on above: Order Comment: FAX R CRISTI TO DR FLORENCE: [phone] Performed By: #### V ITB1, ZINC #### [facility] [address] [place] [address] #### B12, FOL, CMP, PREALB, ANDREZ, CBCD #### [facility] [address] [place] [address]37 Hematocrit (Bld) [Volume fraction] 41.9 % Normal 37.0-47.[address] [facility] Comment on above: Order Comment: FAMaximo COLIN TO DR FLORENCE: [phone] Performed By: #### V ITB1, ZINC #### [facility] [address] [place] [address] #### B12, FOL, CMP, PREALB, ANDREZ, CBCD #### [facility] [address] [place] [address]0578 Hemoglobin (Bld) [Mass/Vol] 13.8 g/dL Normal 12.0-16.[address] [facility] Comment on above: Order Comment: FAMaximo COLIN TO DR FLORENCE: [phone] Performed By: #### V ITB1, ZINC #### [facility] [address] [place] [address] #### B12, FOL, CMP, PREALB, ANDREZ, CBCD #### [facility] [address] [place] [address] IG # 0.0 10*3/uL Normal 0.0-0.1 [facility] Comment on above: Order Comment: FAX R ESULTS TO DR FLORENCE: [phone] Performed By: #### V ITB1, ZINC #### [facility] [address] [place] [address] #### B12, FOL, CMP, PREALB, ANDREZ, CBCD #### [facility] [address] [place] [address] IG % 0.4 % Normal 0.0-1.[address] [facility] Comment on above: Order Comment: FAX R ESULTS TO DR FLORENCE: [phone] Performed By: #### V ITB1, ZINC #### [facility] [address] [place] [address] #### B12, FOL, CMP, PREALB, ANDREZ, CBCD #### [facility] [address] [place] [address] 20385 Lymphocytes (Bld) [#/Vol] 3.8 10*3/uL Normal 1.3-4.[address] [facility] Comment on above: Order Comment: FAX R ESULTS TO DR FLORENCE: [phone] Performed By: #### V ITB1, ZINC #### [facility] [address] [place] [address] #### B12, FOL, CMP, PREALB, ANDREZ, CBCD #### [facility] [address] [place] [address] 36632 Lymphocytes/100 WBC (Bld) 45.5 % High 27.0-41.[address] [facility] Comment on above: Order Comment: FAX R ESULTS TO DR FLORENCE: [phone] Performed By: #### V ITB1, ZINC #### [facility] [address] [place] [address] #### B12, FOL, CMP, PREALB, ANDREZ, CBCD #### [facility] [address] [place] [address] 57495 MCV (RBC) [Entitic vol] 89.3 fL Normal 81.0-99.[address] [facility] Comment on above: Order Comment: FAX R ESULTS TO DR FLORENCE: [phone] Performed By: #### V ITB1, ZINC #### [facility] [address] [place] [address] #### B12, FOL, CMP, PREALB, ANDREZ, CBCD #### [facility] [address] [place] [address] MEAN CORPUSCULAR HGB 29.4 pg Normal 27.0-31.[address] [facility] Comment on above: Order Comment: FAX R ESULTS TO DR FLORENCE: [phone] Performed By: #### V ITB1, ZINC #### [facility] [address] [place] [address] #### B12, FOL, CMP, PREALB, ANDREZ, CBCD #### [facility] [address] [place] [address] 10564 MEAN CORPUSCULAR HGB CONC 32.9 g/dl Low 33.0-37.[address] [facility] Comment on above: Order Comment: FAX R ESULTS TO DR FLORENCE: [phone] Performed By: #### V ITB1, ZINC #### [facility] [address] [place] [address] #### B12, FOL, CMP, PREALB, ANDREZ, CBCD #### [facility] [address] [place] [address] 98334 Monocytes (Bld) [#/Vol] 0.4 10*3/uL Normal 0.1-1.[address] [facility] Comment on above: Order Comment: FAX R ESULTS TO DR FLORENCE: [phone] Performed By: #### V ITB1, ZINC #### [facility] [address] [place] [address] #### B12, FOL, CMP, PREALB, ANDREZ, CBCD #### [facility] [address] [place] [address] 39816 Monocytes/100 WBC (Bld) 4.3 % Normal 3.0-9.[address] [facility] Comment on above: Order Comment: FAX R ESULTS TO DR FLORENCE: [phone] Performed By: #### V ITB1, ZINC #### [facility] [address] [place] [address] #### B12, FOL, CMP, PREALB, ANDREZ, CBCD #### [facility] [address] [place] [address] 40714 Neutrophils (Bld) [#/Vol] 3.7 10*3/uL Normal 2.3-7.[address] [facility] Comment on above: Order Comment: FAX R ESULTS TO DR FLORENCE: [phone] Performed By: #### V ITB1, ZINC #### [facility] [address] [place] [address] #### B12, FOL, CMP, PREALB, ANDREZ, CBCD #### [facility] [address] [place] [address] 52454 Neutrophils/100 WBC (Bld) 44.5 % Low 47.0-73.[address] [facility] Comment on above: Order Comment: FAX R ESULTS TO DR FLORENCE: [phone] Performed By: #### V ITB1, ZINC #### [facility] [address] [place] [address] #### B12, FOL, CMP, PREALB, ANDREZ, CBCD #### [facility] [address] [place] [address] 94879 NUCLEATED RED BLOOD CELL 0.0 10*3/uL Normal 0.0-0.[address] [facility] Comment on above: Order Comment: FAX R ESULTS TO DR FLORENCE: [phone] Performed By: #### V ITB1, ZINC #### [facility] [address] [place] [address] #### B12, FOL, CMP, PREALB, ANDREZ, CBCD #### [facility] [address] [place] [address]951 NUCLEATED RED BLOOD CELL 0.0 % Normal 0.0-0.[address] [facility] Comment on above: Order Comment: FAX R ESULTS TO DR FLORENCE: [phone] Performed By: #### V ITB1, ZINC #### [facility] [address] [place] [address] #### B12, FOL, CMP, PREALB, ANDREZ, CBCD #### [facility] [address] [place] [address] PLATELET COUNT AUTOMATED 277 10*3/uL Normal 130-[address] [facility] Comment on above: Order Comment: FAX R ESULTS TO DR FLORENCE: [phone] Performed By: #### V ITB1, ZINC #### [facility] [address] [place] [address] #### B12, FOL, CMP, PREALB, ANDREZ, CBCD #### [facility] [address] [place] [address] Platelet mean volume (Bld) [Entitic vol] 11.2 fL Normal 9.6-12.3 [facility] Comment on above: Order Comment: FAX R ESULTS TO DR FLORENCE: [phone] Performed By: #### V ITB1, ZINC #### [facility] [address] [place] [address] #### B12, FOL, CMP, PREALB, ANDREZ, CBCD #### [facility] [address] [place] [address] RBC (Bld) [#/Vol] 4.69 10*6/uL Normal 4.10-5.[address] [facility] Comment on above: Order Comment: FAX R ESULTS TO DR FLORENCE: [phone] Performed By: #### V ITB1, ZINC #### [facility] [address] [place] [address] #### B12, FOL, CMP, PREALB, ANDREZ, CBCD #### [facility] [address] [place] [address] RED CELL DISTRI WIDTH 13.5 % Normal 0-14.5 [facility] Comment on above: Order Comment: FAX R ESULTS TO DR FLORENCE: [phone] Performed By: #### V ITB1, ZINC #### [facility] [address] [place] [address] #### B12, FOL, CMP, PREALB, ANDREZ, CBCD #### [facility] [address] [place] [address] 50513 WBC (Bld) [#/Vol] 8.3 10*3/uL Normal 4.8-10.8 [facility] Comment on above: Order Comment: FAX R ESULTS TO DR FLORENCE: [phone] Performed By: #### V ITB1, ZINC #### [facility] [address] [place] [address] #### B12, FOL, CMP, PREALB, ANDREZ, CBCD #### [facility] [address] [place] [address] COMPREHENSIVE METABOLIC PANE [facility] 12-14-2022 Albumin [Mass/Vol] 3.8 g/dL Normal 3.4-5.0 [facility] Comment on above: Order Comment: FAX R ESULTS TO DR FLORENCE: [phone] Performed By: #### V ITB1, ZINC #### [facility] [address] [place] [address] #### B12, FOL, CMP, PREALB, ANDREZ, CBCD #### [facility] [address] [place] [address]608 ALP [Catalytic activity/Vol] 74 U/L Normal 46-[address] [facility] Comment on above: Order Comment: FAX R ESULTS TO DR FLORENCE: [phone] Performed By: #### V ITB1, ZINC #### [facility] [address] [place] [address] #### B12, FOL, CMP, PREALB, ANDREZ, CBCD #### [facility] [address] [place] [address] ALT [Catalytic activity/Vol] 34 U/L Normal 10-[address] [facility] Comment on above: Order Comment: FAX R ESULTS TO DR FLORENCE: [phone] Performed By: #### V ITB1, ZINC #### [facility] [address] [place] [address] #### B12, FOL, CMP, PREALB, ANDREZ, CBCD #### [facility] [address] [place] [address] AST [Catalytic activity/Vol] 19 U/L Normal 0-[address] [facility] Comment on above: Order Comment: FAX R ESULTS TO DR FLORENCE: [phone] Performed By: #### V ITB1, ZINC #### [facility] [address] [place] [address] #### B12, FOL, CMP, PREALB, ANDREZ, CBCD #### [facility] [address] [place] [address] Bilirubin [Mass/Vol] 0.3 mg/dL Normal 0.3-1.[address] [facility] Comment on above: Order Comment: FAX R ESULTS TO DR FLORENCE: [phone] Performed By: #### V ITB1, ZINC #### [facility] [address] [place] [address] #### B12, FOL, CMP, PREALB, ANDREZ, CBCD #### [facility] [address] [place] [address] CALCIUM,TOTAL 9.0 md/dL Normal 8.7-10.4 [facility] Comment on above: Order Comment: FAX R ESULTS TO DR FLORENCE: [phone] Performed By: #### V ITB1, ZINC #### [facility] [address] [place] [address] #### B12, FOL, CMP, PREALB, ANDREZ, CBCD #### [facility] [address] [place] [address] Chloride [Moles/Vol] 109 mmol/L High 98-[address] [facility] Comment on above: Order Comment: FAX R ESULTS TO DR FLORENCE: [phone] Performed By: #### V ITB1, ZINC #### [facility] [address] [place] [address] #### B12, FOL, CMP, PREALB, ANDREZ, CBCD #### [facility] [address] [place] [address] CO2 [Moles/Vol] 27 mmol/L Normal 20-31 [facility] Comment on above: Order Comment: FAX R ESULTS TO DR FLORENCE: [phone] Performed By: #### V ITB1, ZINC #### [facility] [address] [place] [address] #### B12, FOL, CMP, PREALB, ANDREZ, CBCD #### [facility] [address] [place] [address] Creatinine [Mass/Vol] 0.62 mg/dL Normal 0.55-1.02 [facility] Comment on above: Order Comment: FAX R ESULTS TO DR FLORENCE: [phone] Performed By: #### V ITB1, ZINC #### [facility] [address] [place] [address] #### B12, FOL, CMP, PREALB, ANDREZ, CBCD #### [facility] [address] [place] [address] EST GLOM FILT > [address] [facility] Comment on above: Order Comment: FAX R ESULTS TO DR FLORENCE: [phone] Result Comment: Result Units: mL/min/1.73 m2 Note: [...] #### V ITB1, ZINC #### [facility] [address] [place] [address] #### B12, FOL, CMP, PREALB, ANDREZ, CBCD #### [facility] [address] [place] [address] ESTIMATED GLOM FILT RATE > [address] [facility] Comment on above: Order Comment: FAX R ESULTS TO DR FLORENCE: [phone] Performed By: #### V ITB1, ZINC #### [facility] [address] [place] [address] #### B12, FOL, CMP, PREALB, ANDREZ, CBCD #### [facility] [address] [place] [address] Glucose [Mass/Vol] 103 mg/dL High 65-99 [facility] [facility] Comment on above: Order Comment: FAMaximo R STIVENULTS TO DR FLORENCE: [phone] Performed By: #### V ITB1, ZINC #### [facility] [address] [place] [address] #### B12, FOL, CMP, PREALB, ANDREZ, CBCD #### [facility] [address] [place] [address] Potassium [Moles/Vol] 3.6 mmol/L Normal 3.4-5.1 [facility] Comment on above: Order Comment: FAMaximo R ESULTS TO DR FLORENCE: [phone] Performed By: #### V ITB1, ZINC #### [facility] [address] [place] [address] #### B12, FOL, CMP, PREALB, ANDREZ, CBCD #### [facility] [address] [place] [address] Protein [Mass/Vol] 6.5 g/dL Normal 6.0-8.0 [facility] Comment on above: Order Comment: JENNIFER R ESULTS TO DR FLORENCE: [phone] Performed By: #### V ITB1, ZINC #### [facility] [address] [place] [address] #### B12, FOL, CMP, PREALB, ANDREZ, CBCD #### [facility] [address] [place] [address] Sodium [Moles/Vol] 138 mmol/L Normal 136-145 [facility] Comment on above: Order Comment: JENNIFER COLIN TO DR FLORENCE: [phone] Performed By: #### V ITB1, ZINC #### [facility] [address] [place] [address] #### B12, FOL, CMP, PREALB, ANDREZ, CBCD #### [facility] [address] [place] [address] Urea nitrogen [Mass/Vol] 8 mg/dL Low - [facility] Comment on above: Order Comment: JENNIFER COLIN TO DR FLORENCE: [phone] Performed By: #### V ITB1, ZINC #### [facility] [address] [place] [address] #### B12, FOL, CMP, PREALB, ANDREZ, CBCD #### [facility] [address] [place] [address] FERRITINon 12-14-2022 Ferritin [Mass/Vol] 40.9 ng/mL Normal 7.3-307.[address] [facility] Comment on above: Order Comment: JENNIFER COLIN TO DR FLORENCE: [phone] Performed By: #### V ITB1, ZINC #### [facility] [address] [place] [address] #### B12, FOL, CMP, PREALB, ANDREZ, CBCD #### [facility] [address] [place] [address] FOLIC ACIDon 12-14-2022 FOLIC ACID 16.04 ng/mL Normal 5.38-24.00 [facility] Comment on above: Order Comment: JENNIFER COLIN TO DR FLORENCE: [phone] Result Comment: 0.35 - 3.7 ng/mL - Folate Deficiency 3.38 - 5.38 ng/mL - Indeterminate > 5.38 ng/mL - Normal Performed By: #### V ITB1, ZINC #### [facility] [address] [place] [address] #### B12, FOL, CMP, PREALB, NADREZ, CBCD #### [facility] [address] [place] [address] PREALBUMINon 12-14-2022 Prealbumin [Mass/Vol] 16 mg/dL Normal 10-40 [facility] Comment on above: Order Comment: FAX R ESULTS TO DR FLORENCE: [phone] Performed By: #### V ITB1, ZINC #### [facility] [address] [place] [address] #### B12, FOL, CMP, PREALB, ANDREZ, CBCD #### [facility] [address] [place] [address] VITAMIN B12on 12-14-2022 Cobalamin (Vitamin B12) [Mass/Vol] 261 pg/mL Normal 211-[address] [facility] Comment on above: Order Comment: FAX R ESULTS TO DR FLORENCE: [phone] Result Comment: 247 - 911 pg/mL - Normal, Vitamin B12 Sufficiency Performed By: #### V ITB1, ZINC #### [facility] [address] [place] [address] #### B12, FOL, CMP, PREALB, ANDREZ, CBCD #### [facility] [address] [place] [address] CBC with DIFFERENTIALon Basophils (Bld) [#/Vol] 0.0 10*3/uL Normal 0.0-0.[address] [facility] Comment on above: Performed By: #### V ITB1, ZINC #### [facility] [address] [place] [address] #### B12, FOL, CMP, PREALB, ANDREZ, CBCD #### [facility] [address] [place] [address] 10951 Basophils/100 WBC (Bld) 0.6 % Normal 0.0-1.[address] [facility] Comment on above: Performed By: #### V ITB1, ZINC #### [facility] [address] [place] [address] #### B12, FOL, CMP, PREALB, ANDREZ, CBCD #### [facility] [address] [place] [address]98 Eosinophils (Bld) [#/Vol] 0.4 10*3/uL Normal 0.0-0.[address] [facility] Comment on above: Performed By: #### V ITB1, ZINC #### [facility] [address] [place] [address] #### B12, FOL, CMP, PREALB, ANDREZ, CBCD #### [facility] [address] [place] [address] Eosinophils/100 WBC (Bld) 6.0 % High 1.0-4.[address] [facility] Comment on above: Performed By: #### V ITB1, ZINC #### [facility] [address] [place] [address] #### B12, FOL, CMP, PREALB, ANDREZ, CBCD #### [facility] [address] [place] [address] Hematocrit (Bld) [Volume fraction] 42.2 % Normal 37.0-47.[address] [facility] Comment on above: Performed By: #### V ITB1, ZINC #### [facility] [address] [place] [address] #### B12, FOL, CMP, PREALB, ANDREZ, CBCD #### [facility] [address] [place] [address] Hemoglobin (Bld) [Mass/Vol] 14.0 g/dL Normal 12.0-16.[address] [facility] Comment on above: Performed By: #### V ITB1, ZINC #### [facility] [address] [place] [address] #### B12, FOL, CMP, PREALB, ANDREZ, CBCD #### [facility] [address] [place] [address] IG # 0.0 10*3/uL Normal 0.0-0.1 [facility] Comment on above: Performed By: #### V ITB1, ZINC #### [facility] [address] [place] [address] #### B12, FOL, CMP, PREALB, ANDREZ, CBCD #### [facility] [address] [place] [address] IG % 0.2 % Normal 0.0-1.[address] [facility] Comment on above: Performed By: #### V ITB1, ZINC #### [facility] [address] [place] [address] #### B12, FOL, CMP, PREALB, ANDREZ, CBCD #### [facility] [address] [place] [address] Lymphocytes (Bld) [#/Vol] 3.4 10*3/uL Normal 1.3-4.[address] [facility] Comment on above: Performed By: #### V ITB1, ZINC #### [facility] [address] [place] [address] #### B12, FOL, CMP, PREALB, ANDREZ, CBCD #### [facility] [address] [place] [address] Lymphocytes/100 WBC (Bld) 53.6 % High 27.0-41.[address] [facility] Comment on above: Performed By: #### V ITB1, ZINC #### [facility] [address] [place] [address] #### B12, FOL, CMP, PREALB, ANDREZ, CBCD #### [facility] [address] [place] [address] 65394 MCV (RBC) [Entitic vol] 88.5 fL Normal 81.0-99.[address] [facility] Comment on above: Performed By: #### V ITB1, ZINC #### [facility] [address] [place] [address] #### B12, FOL, CMP, PREALB, ANDREZ, CBCD #### [facility] [address] [place] [address] 36157 MEAN CORPUSCULAR HGB 29.4 pg Normal 27.0-31.[address] [facility] Comment on above: Performed By: #### V ITB1, ZINC #### [facility] [address] #### B12, FOL, CMP, PREALB, ANDREZ, CBCD #### [facility] [address] [place] [address] 94801 MEAN CORPUSCULAR HGB CONC 33.2 g/dl Normal 33.0-37.[address] [facility] Comment on above: Performed By: #### V ITB1, ZINC #### [facility] [address] [place] [address] #### B12, FOL, CMP, PREALB, ANDREZ, CBCD #### [facility] [address] [place] [address] 20503 Monocytes (Bld) [#/Vol] 0.3 10*3/uL Normal 0.1-1.[address] [facility] Comment on above: Performed By: #### V ITB1, ZINC #### [facility] [address] [place] [address] #### B12, FOL, CMP, PREALB, ANDREZ, CBCD #### [facility] [address] [place] [address] 19774 Monocytes/100 WBC (Bld) 4.8 % Normal 3.0-9.[address] [facility] Comment on above: Performed By: #### V ITB1, ZINC #### [facility] [address] [place] [address] #### B12, FOL, CMP, PREALB, ANDREZ, CBCD #### [facility] [address] [place] [address] 22346 Neutrophils (Bld) [#/Vol] 2.2 10*3/uL Low 2.3-7.[address] [facility] Comment on above: Performed By: #### V ITB1, ZINC #### [facility] [address] [place] [address] #### B12, FOL, CMP, PREALB, ANDREZ, CBCD #### [facility] [address] [place] [address] 69439 Neutrophils/100 WBC (Bld) 34.8 % Low 47.0-73.[address] [facility] Comment on above: Performed By: #### V ITB1, ZINC #### [facility] [address] [place] [address] #### B12, FOL, CMP, PREALB, ANDREZ, CBCD #### [facility] [address] [place] [address] 54499 NUCLEATED RED BLOOD CELL 0.0 10*3/uL Normal 0.0-0.[address] [facility] Comment on above: Performed By: #### V ITB1, ZINC #### [facility] [address] [place] [address] #### B12, FOL, CMP, PREALB, ANDREZ, CBCD #### [facility] [address] [place] [address] 99155 NUCLEATED RED BLOOD CELL 0.0 % Normal 0.0-0.[address] [facility] Comment on above: Performed By: #### V ITB1, ZINC #### [facility] [address] [place] [address] #### B12, FOL, CMP, PREALB, ANDREZ, CBCD #### [facility] [address] [place] [address] 84503 PLATELET COUNT AUTOMATED 265 10*3/uL Normal 130-[address] [facility] Comment on above: Performed By: #### V ITB1, ZINC #### [facility] [address] [place] [address] #### B12, FOL, CMP, PREALB, ANDREZ, CBCD #### [facility] [address] [place] [address] 76016 Platelet mean volume (Bld) [Entitic vol] 11.3 fL Normal 9.6-12.3 [facility] Comment on above: Performed By: #### V ITB1, ZINC #### [facility] [address] [place] [address] #### B12, FOL, CMP, PREALB, ANDREZ, CBCD #### [facility] [address] [place] [address] RBC (Bld) [#/Vol] 4.77 10*6/uL Normal 4.10-5.[address] [facility] Comment on above: Performed By: #### V ITB1, ZINC #### [facility] [address] [place] [address] #### B12, FOL, CMP, PREALB, ANDREZ, CBCD #### [facility] [address] [place] [address] RED CELL DISTRI WIDTH 13.9 % Normal 0-14.5 [facility] Comment on above: Performed By: #### V ITB1, ZINC #### [facility] [address] [place] [address] #### B12, FOL, CMP, PREALB, ANDREZ, CBCD #### [facility] [address] [place] [address] 58561 WBC (Bld) [#/Vol] 6.3 10*3/uL Normal 4.8-10.8 [facility] Comment on above: Performed By: #### V ITB1, ZINC #### [facility] [address] [place] [address] #### B12, FOL, CMP, PREALB, ANDREZ, CBCD #### [facility] [address] [place] [address] COMPREHENSIVE METABOLIC PANE Evan 12-03-2022 Albumin [Mass/Vol] 4.0 g/dL Normal 3.4-5.0 [facility] Comment on above: Performed By: #### V ITB1, ZINC #### [facility] [address] [place] [address] #### B12, FOL, CMP, PREALB, ANDREZ, CBCD #### [facility] [address] [place] [address] 22780 ALP [Catalytic activity/Vol] 69 U/L Normal 46-[address] [facility] Comment on above: Performed By: #### V ITB1, ZINC #### [facility] [address] #### B12, FOL, CMP, PREALB, ANDREZ, CBCD #### [facility] [address] [place] [address] 80459 ALT [Catalytic activity/Vol] 79 U/L High 10-[address] [facility] Comment on above: Performed By: #### V ITB1, ZINC #### [facility] [address] [place] [address] #### B12, FOL, CMP, PREALB, ANDREZ, CBCD #### [facility] [address] [place] [address] 49646 AST [Catalytic activity/Vol] 31 U/L Normal 0-[address] [facility] Comment on above: Performed By: #### V ITB1, ZINC #### [facility] [address] [place] [address] #### B12, FOL, CMP, PREALB, ANDREZ, CBCD #### [facility] [address] [place] [address] 25857 Bilirubin [Mass/Vol] 0.4 mg/dL Normal 0.3-1.[address] [facility] Comment on above: Performed By: #### V ITB1, ZINC #### [facility] [address] [place] [address] #### B12, FOL, CMP, PREALB, ANDREZ, CBCD #### [facility] [address] [place] [address] 67911 CALCIUM,TOTAL 9.1 md/dL Normal 8.7-10.4 [facility] Comment on above: Performed By: #### V ITB1, ZINC #### [facility] [address] [place] [address] #### B12, FOL, CMP, PREALB, ANDREZ, CBCD #### [facility] [address] [place] [address] Chloride [Moles/Vol] 109 mmol/L High 98-[address] [facility] Comment on above: Performed By: #### V ITB1, ZINC #### [facility] [address] [place] [address] #### B12, FOL, CMP, PREALB, ANDREZ, CBCD #### [facility] [address] [place] [address] CO2 [Moles/Vol] 25 mmol/L Normal 20-31 [facility] Comment on above: Performed By: #### V ITB1, ZINC #### [facility] [address] [place] [address] #### B12, FOL, CMP, PREALB, ANDREZ, CBCD #### [facility] [address] [place] [address] Creatinine [Mass/Vol] 0.56 mg/dL Normal 0.55-1.02 [facility] Comment on above: Performed By: #### V ITB1, ZINC #### [facility] [address] [place] [address] #### B12, FOL, CMP, PREALB, ANDREZ, CBCD #### [facility] [address] [place] [address] EST GLOM FILT > [address] [facility] Comment on above: Result Comment: Result [...] #### V ITB1, ZINC #### [facility] [address] [place] [address] #### B12, FOL, CMP, PREALB, ANDREZ, CBCD #### [facility] [address] [place] [address] ESTIMATED GLOM FILT RATE > [address] [facility] Comment on above: Performed By: #### V ITB1, ZINC #### [facility] [address] [place] [address] #### B12, FOL, CMP, PREALB, ANDREZ, CBCD #### [facility] [address] [place] [address] 86984 Glucose [Mass/Vol] 103 mg/dL High 65-99 [facility] Comment on above: Performed By: #### V ITB1, ZINC #### [facility] [address] [place] [address] #### B12, FOL, CMP, PREALB, ANDREZ, CBCD #### [facility] [address] [place] [address] 74368 Potassium [Moles/Vol] 3.8 mmol/L Normal 3.4-5.1 [facility] Comment on above: Performed By: #### V ITB1, ZINC #### [facility] [address] [place] [address] #### B12, FOL, CMP, PREALB, ANDREZ, CBCD #### [facility] [address] [place] [address] Protein [Mass/Vol] 6.7 g/dL Normal 6.0-8.0 [facility] Comment on above: Performed By: #### V ITB1, ZINC #### [facility] [address] [place] [address] #### B12, FOL, CMP, PREALB, ANDREZ, CBCD #### [facility] [address] [place] [id number] Sodium [Moles/Vol] 141 mmol/L Normal 136-145 [facility] Comment on above: Performed By: #### V ITB1, ZINC #### [facility] [address] [place] [address] #### B12, FOL, CMP, PREALB, ANDREZ, CBCD #### [facility] [address] [place] [address] Urea nitrogen [Mass/Vol] 10 mg/dL Normal 9-[address] [facility] Comment on above: Performed By: #### V ITB1, ZINC #### [facility] [address] [place] [address] #### B12, FOL, CMP, PREALB, ANDREZ, CBCD #### [facility] [address] [place] [address] [id number] 12-03-2022 ESTIMATED AVERAGE GLUCOSE [address] [facility] Comment on above: Performed By: #### V ITB1, ZINC #### [facility] [address] [place] [address] #### B12, FOL, CMP, PREALB, ANDREZ, CBCD #### [facility] [address] [place] [address] HbA1c (Bld) [Mass fraction] 4.9 % Normal 4.8-5.[address] [facility] Comment on above: Result Comment: Standarization of method based on National Glycohemoglobin Standardization Program (NGSP). HEMOGLOBIN A1c(%) DEGREE of GLUCOSE CONTROL 5.7-6.4% Prediabetes range >6.4% Diagnosis of Diabetes <7% Glycemic control for adults with Diabetes Performed By: #### V ITB1, ZINC #### [facility] [address] [place] [address] #### B12, FOL, CMP, PREALB, ANDREZ, CBCD #### [facility] [address] [place] [address] 64783 INSULINon 12-03-2022 INSULIN 14.2 mU/L Normal 2.6-37.[address] [facility] Comment on above: Performed By: #### V ITB1, ZINC #### [facility] [address] [place] [address] #### B12, FOL, CMP, PREALB, ANDREZ, CBCD #### [facility] [address] [place] [address] 69972 LIPID PANEL CHOLESTEROL/HDLo n 12-03-2022 Cholesterol [Mass/Vol] 113 mg/dL Normal <200 [facility] Comment on above: Performed By: #### V ITB1, ZINC #### [facility] [address] [place] [address] #### B12, FOL, CMP, PREALB, ANDREZ, CBCD #### [facility] [address] [place] [address] 72549 Cholesterol in HDL [Mass/Vol] 26 mg/dL Low 40-[address] [facility] Comment on above: Performed By: #### V ITB1, ZINC #### [facility] [address] [place] [address] #### B12, FOL, CMP, PREALB, ANDREZ, CBCD #### [facility] [address] [place] [address] 81096 Cholesterol in LDL [Mass/Vol] 52 mg/dL Normal 9-[address] [facility] Comment on above: Performed By: #### V ITB1, ZINC #### [facility] [address] [place] [address] #### B12, FOL, CMP, PREALB, ANDREZ, CBCD #### [facility] [address] [place] [address] 71499 Cholesterol.total/Chol esterol in HDL [Mass ratio] 4.3 {ratio} Normal [facility] Comment on above: Performed By: #### V ITB1, ZINC #### [facility] [address] [place] [address] #### B12, FOL, CMP, PREALB, ANDREZ, CBCD #### [facility] [address] [place] [address] Triglyceride [Mass/Vol] 176 mg/dL High <[address] [facility] Comment on above: Result Comment: TRIGLYCERIDE RISK ASSESSMENT: 150-199 mg/dl BORDERLINE HIGH >200 mg//dl HIGH . Performed By: #### V ITB1, ZINC #### [facility] [address] [place] [address] #### B12, FOL, CMP, PREALB, ANDREZ, CBCD #### [facility] [address] [place] [address] VLDL CHOLESTEROL 35 mg/dL Normal 6-40 [facility] Comment on above: Performed By: #### V ITB1, ZINC #### [facility] [address] [place] [address] #### B12, FOL, CMP, PREALB, ANDREZ, CBCD #### [facility] [address] [place] [address] CBC with DIFFERENTIALon 05-0 -2022 Basophils (Bld) [#/Vol] 0.0 10*3/uL Normal 0.0-0.[address] [facility] Comment on above: Order Comment: FAX R ESULTS TO DR FLORENCE: [phone] Performed By: #### V ITB1, ZINC #### [facility] [address] [place] [address] #### B12, FOL, CMP, PREALB, ANDREZ, CBCD #### [facility] [address] [place] [address] 75172 Basophils/100 WBC (Bld) 0.3 % Normal 0.0-1.[address] [facility] Comment on above: Order Comment: FAX R ESULTS TO DR FLORENCE: [phone] Performed By: #### V ITB1, ZINC #### [facility] [address] [place] [address] #### B12, FOL, CMP, PREALB, ANDREZ, CBCD #### [facility] [address] [place] [address] Eosinophils (Bld) [#/Vol] 0.2 10*3/uL Normal 0.0-0.[address] [facility] Comment on above: Order Comment: FAX R ESULTS TO DR FLORENCE: [phone] Performed By: #### V ITB1, ZINC #### [facility] [address] [place] [address] #### B12, FOL, CMP, PREALB, ANDREZ, CBCD #### [facility] [address] [place] [address] Eosinophils/100 WBC (Bld) 3.2 % Normal 1.0-4.[address] [facility] Comment on above: Order Comment: FAX R ESULTS TO DR FLORENCE: [phone] Performed By: #### V ITB1, ZINC #### [facility] [address] [place] [address] #### B12, FOL, CMP, PREALB, ANDREZ, CBCD #### [facility] [address] [place] [address] 56067 Hematocrit (Bld) [Volume fraction] 43.8 % Normal 37.0-47.[address] [facility] Comment on above: Order Comment: FAX R ESULTS TO DR FLORENCE: [phone] Performed By: #### V ITB1, ZINC #### [facility] [address] [place] [address] #### B12, FOL, CMP, PREALB, ANDREZ, CBCD #### [facility] [address] [place] [address] 18229 Hemoglobin (Bld) [Mass/Vol] 14.3 g/dL Normal 12.0-16.[address] [facility] Comment on above: Order Comment: FAX R ESULTS TO DR FLORENCE: [phone] Performed By: #### V ITB1, ZINC #### [facility] [address] [place] [address] #### B12, FOL, CMP, PREALB, ANDREZ, CBCD #### [facility] [address] [place] [address] IG # 0.1 10*3/uL Normal 0.0-0.1 [facility] Comment on above: Order Comment: FAX R ESULTS TO DR FLORENCE: [phone] Performed By: #### V ITB1, ZINC #### [facility] [address] [place] [address] #### B12, FOL, CMP, PREALB, ANDREZ, CBCD #### [facility] [address] [place] [address] IG % 0.7 % Normal 0.0-1.[address] [facility] Comment on above: Order Comment: FAX R ESULTS TO DR FLORENCE: [phone] Performed By: #### V ITB1, ZINC #### [facility] [address] [place] [address] #### B12, FOL, CMP, PREALB, ANDREZ, CBCD #### [facility] [address] [place] [address] Lymphocytes (Bld) [#/Vol] 3.5 10*3/uL Normal 1.3-4.[address] [facility] Comment on above: Order Comment: FAX R ESULTS TO DR FLORENCE: [phone] Performed By: #### V ITB1, ZINC #### [facility] [address] [place] [address] #### B12, FOL, CMP, PREALB, ANDREZ, CBCD #### [facility] [address] [place] [address] Lymphocytes/100 WBC (Bld) 46.7 % High 27.0-41.[address] [facility] Comment on above: Order Comment: FAX R ESULTS TO DR FLORENCE: [phone] Performed By: #### V ITB1, ZINC #### [facility] [address] [place] [address] #### B12, FOL, CMP, PREALB, ANDREZ, CBCD #### [facility] [address] [place] [address] MCV (RBC) [Entitic vol] 88.1 fL Normal 81.0-99.[address] [facility] Comment on above: Order Comment: FAX R ESULTS TO DR FLORENCE: [phone] Performed By: #### V ITB1, ZINC #### [facility] [address] [place] [address] #### B12, FOL, CMP, PREALB, ANDREZ, CBCD #### [facility] [address] [place] [address] MEAN CORPUSCULAR HGB 28.8 pg Normal 27.0-31.[address] [facility] Comment on above: Order Comment: FAX R ESULTS TO DR FLORENCE: [phone] Performed By: #### V ITB1, ZINC #### [facility] [address] [place] [address] #### B12, FOL, CMP, PREALB, ANDREZ, CBCD #### [facility] [address] [place] [address] MEAN CORPUSCULAR HGB CONC 32.6 g/dl Low 33.0-37.[address] [facility] Comment on above: Order Comment: FAX R ESULTS TO DR FLORENCE: [phone] Performed By: #### V ITB1, ZINC #### [facility] [address] [place] [address] #### B12, FOL, CMP, PREALB, ANDREZ, CBCD #### [facility] [address] [place] [address] Monocytes (Bld) [#/Vol] 0.3 10*3/uL Normal 0.1-1.[address] [facility] Comment on above: Order Comment: FAX R ESULTS TO DR FLORENCE: [phone] Performed By: #### V ITB1, ZINC #### [facility] [address] [place] [address] #### B12, FOL, CMP, PREALB, ANDREZ, CBCD #### [facility] [address] [place] [address] Monocytes/100 WBC (Bld) 4.3 % Normal 3.0-9.[address] [facility] Comment on above: Order Comment: FAX R ESULTS TO DR FLORENCE: [phone] Performed By: #### V ITB1, ZINC #### [facility] [address] [place] [address] #### B12, FOL, CMP, PREALB, ANDREZ, CBCD #### [facility] [address] [place] [address] Neutrophils (Bld) [#/Vol] 3.4 10*3/uL Normal 2.3-7.[address] [facility] Comment on above: Order Comment: FAX R ESULTS TO DR FLORENCE: [phone] Performed By: #### V ITB1, ZINC #### [facility] [address] [place] [address] #### B12, FOL, CMP, PREALB, ANDREZ, CBCD #### [facility] [address] [place] [address] Neutrophils/100 WBC (Bld) 44.8 % Low 47.0-73.[address] [facility] Comment on above: Order Comment: FAX R ESULTS TO DR FLORENCE: [phone] Performed By: #### V ITB1, ZINC #### [facility] [address] [place] [address] #### B12, FOL, CMP, PREALB, ANDREZ, CBCD #### [facility] [address] [place] [address] NUCLEATED RED BLOOD CELL 0.0 10*3/uL Normal 0.0-0.[address] [facility] Comment on above: Order Comment: FAX R ESULTS TO DR FLORENCE: Performed By: #### V ITB1, ZINC #### [facility] [address] [place] [address] #### B12, FOL, CMP, PREALB, ANDREZ, CBCD #### [facility] [address] [place] [address] NUCLEATED RED BLOOD CELL 0.0 % Normal 0.0-0.[address] [facility] Comment on above: Order Comment: FAX R ESULTS TO DR FLORENCE: Performed By: #### V ITB1, ZINC #### [facility] [address] [place] [address] #### B12, FOL, CMP, PREALB, ANDREZ, CBCD #### [facility] [address] [place] [address] PLATELET COUNT AUTOMATED 347 10*3/uL Normal 130-[address] [facility] Comment on above: Order Comment: FAX R ESULTS TO DR FLORENCE: Performed By: #### V ITB1, ZINC #### [facility] [address] [place] [address] #### B12, FOL, CMP, PREALB, ANDREZ, CBCD #### [facility] [address] [place] [address] Platelet mean volume (Bld) [Entitic vol] 9.9 fL Normal 9.6-12.3 [facility] Comment on above: Order Comment: FAX R ESULTS TO DR FLORENCE: Performed By: #### V ITB1, ZINC #### [facility] [address] [place] [address] #### B12, FOL, CMP, PREALB, ANDREZ, CBCD #### [facility] [address] [place] [address] RBC (Bld) [#/Vol] 4.97 10*6/uL Normal 4.10-5.[address] [facility] Comment on above: Order Comment: FAX R ESULTS TO DR FLORENCE: Performed By: #### V ITB1, ZINC #### [facility] [address] [place] [address] #### B12, FOL, CMP, PREALB, ANDREZ, CBCD #### [facility] [address] [place] [address] RED CELL DISTRI WIDTH 13.2 % Normal 0-14.5 [facility] Comment on above: Order Comment: FAX R ESULTS TO DR FLORENCE: Performed By: #### V ITB1, ZINC #### [facility] [address] [place] [address] #### B12, FOL, CMP, PREALB, ANDREZ, CBCD #### [facility] [address] [place] [address] WBC (Bld) [#/Vol] 7.5 10*3/uL Normal 4.8-10.8 [facility] Comment on above: Order Comment: FAX R ESULTS TO DR FLORENCE: [phone] Performed By: #### V ITB1, ZINC #### [facility] [address] [place] [address] #### B12, FOL, CMP, PREALB, ANDREZ, CBCD #### [facility] [address] [place] [address] COMPREHENSIVE METABOLIC PANE Evan 11-06-2022 Albumin [Mass/Vol] 4.2 g/dL Normal 3.4-5.0 [facility] Comment on above: Order Comment: FAX R ESULTS TO DR FLORENCE: [phone] Performed By: #### V ITB1, ZINC #### [facility] [address] [place] [address] #### B12, FOL, CMP, PREALB, ANDREZ, CBCD #### [facility] [address] [place] [address] ALP [Catalytic activity/Vol] 59 U/L Normal 46-[address] [facility] Comment on above: Order Comment: FAX R ESULTS TO DR FLORENCE: Performed By: #### V ITB1, ZINC #### [facility] [address] [place] [address] #### B12, FOL, CMP, PREALB, ANDREZ, CBCD #### [facility] [address] [place] [address] ALT [Catalytic activity/Vol] 30 U/L Normal 10-[address] [facility] Comment on above: Order Comment: FAX R ESULTS TO DR FLORENCE: Performed By: #### V ITB1, ZINC #### [facility] [address] [place] [address] #### B12, FOL, CMP, PREALB, ANDREZ, CBCD #### [facility] [address] [place] [address] AST [Catalytic activity/Vol] 20 U/L Normal 0-[address] [facility] Comment on above: Order Comment: FAX R ESULTS TO DR FLORENCE: Performed By: #### V ITB1, ZINC #### [facility] [address] [place] [address] #### B12, FOL, CMP, PREALB, ANDREZ, CBCD #### [facility] [address] [place] [address] Bilirubin [Mass/Vol] 0.5 mg/dL Normal 0.3-1.[address] [facility] Comment on above: Order Comment: FAX R ESULTS TO DR FLORENCE: Performed By: #### V ITB1, ZINC #### [facility] [address] [place] [address] #### B12, FOL, CMP, PREALB, ANDREZ, CBCD #### [facility] [address] [place] [address] CALCIUM,TOTAL 9.3 md/dL Normal 8.7-10.4 [facility] Comment on above: Order Comment: FAX R ESULTS TO DR FLORENCE: Performed By: #### V ITB1, ZINC #### [facility] [address] [place] [address] #### B12, FOL, CMP, PREALB, ANDREZ, CBCD #### [facility] [address] [place] [address] Chloride [Moles/Vol] 103 mmol/L Normal 98-[address] [facility] Comment on above: Order Comment: FAX R ESULTS TO DR FLORENCE: [phone] Performed By: #### V ITB1, ZINC #### [facility] [address] [place] [address] #### B12, FOL, CMP, PREALB, ANDREZ, CBCD #### [facility] [address] [place] [address] CO2 [Moles/Vol] 23 mmol/L Normal 20-31 [facility] Comment on above: Order Comment: FAX R ESULTS TO DR FLORENCE: [phone] Performed By: #### V ITB1, ZINC #### [facility] [address] [place] [address] #### B12, FOL, CMP, PREALB, ANDREZ, CBCD #### [facility] [address] [place] [address] Creatinine [Mass/Vol] 0.58 mg/dL Normal 0.55-1.02 [facility] Comment on above: Order Comment: FAX R ESULTS TO DR FLORENCE: [phone] Performed By: #### V ITB1, ZINC #### [facility] [address] [place] [address] #### B12, FOL, CMP, PREALB, ANDREZ, CBCD #### [facility] [address] [place] [address] EST GLOM FILT > [address] [facility] Comment on above: Order Comment: FAX R ESULTS TO DR FLORENCE: [phone] Result Comment: Result Units: mL/min/1.73 m2 Note: [...] #### V ITB1, ZINC #### [facility] [address] [place] [address] #### B12, FOL, CMP, PREALB, ANDREZ, CBCD #### [facility] [address] [place] [address] ESTIMATED GLOM FILT RATE > [address] [facility] Comment on above: Order Comment: FAX R ESULTS TO DR FLORENCE: [phone] Performed By: #### V ITB1, ZINC #### [facility] [address] [place] [address] #### B12, FOL, CMP, PREALB, ANDREZ, CBCD #### [facility] [address] [place] [address] Glucose [Mass/Vol] 92 mg/dL Normal 65-99 [facility] Comment on above: Order Comment: FAX R ESULTS TO DR FLORENCE: [phone] Performed By: #### V ITB1, ZINC #### [facility] [address] [place] [address] #### B12, FOL, CMP, PREALB, ANDREZ, CBCD #### [facility] [address] [place] [address] Potassium [Moles/Vol] 3.9 mmol/L Normal 3.4-5.1 [facility] Comment on above: Order Comment: FAX R ESULTS TO DR FLORENCE: [phone] Performed By: #### V ITB1, ZINC #### [facility] [address] [place] [address] #### B12, FOL, CMP, PREALB, ANDREZ, CBCD #### [facility] [address] [place] [address] Protein [Mass/Vol] 7.3 g/dL Normal 6.0-8.0 [facility] Comment on above: Order Comment: FAX R ESULTS TO DR FLORENCE: [phone] Performed By: #### V ITB1, ZINC #### [facility] [address] [place] [address] #### B12, FOL, CMP, PREALB, ANDREZ, CBCD #### [facility] [address] [place] [address] Sodium [Moles/Vol] 137 mmol/L Normal 136-145 [facility] Comment on above: Order Comment: FAX R ESULTS TO DR FLORENCE: [phone] Performed By: #### V ITB1, ZINC #### [facility] [address] [place] [address] #### B12, FOL, CMP, PREALB, ANDREZ, CBCD #### [facility] [address] [place] [address] Urea nitrogen [Mass/Vol] 12 mg/dL Normal 9-[address] [facility] Comment on above: Order Comment: FAX R ESULTS TO DR FLORENCE: [phone] Performed By: #### V ITB1, ZINC #### [facility] [address] [place] [address] #### B12, FOL, CMP, PREALB, ANDREZ, CBCD #### [facility] [address] [place] [address] Basic Metabolic Panelon 05-0 Anion gap [Moles/Vol] 11 mmol/L Normal 7-16 [facility] Calcium [Mass/Vol] 8.9 mg/dL Normal 8.6-10.2 [facility] Chloride [Moles/Vol] 104 mmol/L Normal 98-107 [facility] CO2 [Moles/Vol] 25 mmol/L Normal 22-29 [facility] Creatinine [Mass/Vol] 0.6 mg/dL Normal 0.5-1.0 [facility] GFR Calculated >60 Normal >=60 [facility] Comment on above: Result Comment: Dion ch [...] Glucose [Mass/Vol] 117 mg/dL High 74-99 [facility] Potassium [Moles/Vol] 4.3 mmol/L Normal 3.5-5.0 [facility] Sodium [Moles/Vol] 140 mmol/L Normal 132-146 [facility] Urea nitrogen [Mass/Vol] 13 mg/dL Normal 6-20 [facility] Basic metabolic 2000 panelon 10-30-2022 Anion gap [Moles/Vol] 11 mmol/L 7 - 16 mmol/L [facility] Calcium [Mass/Vol] 8.9 mg/dL 8.6 - 10. 2 mg/dL [facility] Chloride [Moles/Vol] 104 mmol/L 98 - 10 7 mmol/L [facility] CO2 [Moles/Vol] 25 mmol/L 22 - 29 mmol/L [facility] Creatinine [Mass/Vol] 0.6 mg/dL 0.5 - 1.0 mg/dL [facility] GFR/1.73 sq M.predicted among non-blacks MDRD (S/P/Bld) [Vol rate/Area] mL/min/1.73 60 - PINF mL/min/1.73 [facility] Comment on above: Pediatric calculator [...] 117 mg/dL High 74 - 99 mg/dL [facility] Potassium [Moles/Vol] 4.3 mmol/L 3.5 - 5.0 mmol/L [facility] Sodium [Moles/Vol] 140 mmol/L 132 - 146 mmol/L [facility] Urea nitrogen [Mass/Vol] 13 mg/dL 6 - 20 mg/dL [facility] CBC With Platelet and Differ entialon 10-30-2022 Abs Imm Granulocytes 0.07 E9/L Normal [facility] Absolute Basophils 0.01 E9/L Normal 0.00-0.20 [facility] Absolute Eosinophils 0.00 E9/L Low 0.05-0.50 [facility] Absolute Lymphocytes 1.89 E9/L Normal 1.50-4.00 [facility] Absolute Monocytes 0.73 E9/L Normal 0.10-0.95 [facility] Absolute Neutrophils 9.02 E9/L High 1.80-7.30 [facility] Basophils/100 WBC (Bld) 0.1 % Normal 0.0-2.0 [facility] Eosinophils/100 WBC (Bld) 0.0 % Normal 0.0-6.0 [facility] Hematocrit (Bld) [Volume fraction] 38.2 % Normal 34.0-48.0 [facility] Hemoglobin (Bld) [Mass/Vol] 12.2 g/dL Normal 11.5-15.5 [facility] Imm Granulocytes 0.6 % Normal 0.0-5.0 [facility] Lymphocytes/100 WBC (Bld) 16.1 % Low 20.0-42.0 [facility] MCH (RBC) [Entitic mass] 29.2 pg Normal 26.0-35.0 [facility] MCHC 31.9 % Low 32.0-34.5 [facility] MCV (RBC) [Entitic vol] 91.4 fL Normal 80.0-99.9 [facility] Monocytes/100 WBC (Bld) 6.2 % Normal 2.0-12.0 [facility] Neutrophils/100 WBC (Bld) 77.0 % Normal 43.0-80.0 [facility] Platelet Count 285 E9/L Normal 130-450 [facility] Platelet mean volume (Bld) [Entitic vol] 10.4 fL Normal 7.0-12.0 [facility] RBC 4.18 E12/L Normal 3.50-5.50 [facility] RDW 13.2 fL Normal 11.5-15.0 [facility] WBC 11.7 E9/L High 4.5-11.5 [facility] CBC with Auto Differentialon 10-30-2022 Basophils (Bld) [#/Vol] 0.01 10*3/uL [facility] Basophils/100 WBC (Bld) 0.1 % 0.0 - 2.0 % [facility] Eosinophils (Bld) [#/Vol] 0.00 10*3/uL Low [facility] Eosinophils/100 WBC (Bld) 0 % 0.0 - 6.0 % [facility] Erythrocyte distribution width (RBC) [Ratio] 13.2 fL 11.5 - 15.0 fL [facility] Hematocrit (Bld) [Volume fraction] 38.2 % 34.0 - 48.0 % [facility] Hemoglobin (Bld) [Mass/Vol] 12.2 g/dL 11.5 - 15.5 g/dL [facility] Immature granulocytes (Bld) [#/Vol] 0.07 10*3/uL E9/L [facility] Immature granulocytes/100 WBC (Bld) 0.6 % 0.0 - 5.0 % [facility] Interpretation and review of laboratory results Abnormal [facility] Lymphocytes (Bld) [#/Vol] 1.89 10*3/uL [facility] Lymphocytes/100 WBC (Bld) 16.1 % Low 20.0 - 42.0 % [facility] MCH (RBC) [Entitic mass] 29.2 pg 26.0 - 35.0 pg [facility] MCHC (RBC) [Mass/Vol] 31.9 % Low 32.0 - 34.5 % [facility] MCV (RBC) [Entitic vol] 91.4 fL 80.0 - 99.9 fL [facility] Monocytes (Bld) [#/Vol] 0.73 10*3/uL [facility] Monocytes/100 WBC (Bld) 6.2 % 2.0 - 12.0 % [facility] Neutrophils (Bld) [#/Vol] 9.02 10*3/uL High [facility] Platelet mean volume (Bld) [Entitic vol] 10.4 fL 7.0 - 12.0 fL [facility] Platelets (Bld) [#/Vol] 285 10*3/uL [facility] RBC (Bld) [#/Vol] 4.18 10*6/uL [facility] Segmented neutrophils/100 WBC (Bld) 77.0 % 43.0 - 80.0 % [facility] WBC (Bld) [#/Vol] 11.7 10*3/uL High [facility] Hepatic Function Panelon Albumin [Mass/Vol] 3.7 g/dL 3.5 - 5.2 g/dL [facility] ALP [Catalytic activity/Vol] 55 U/L 35 - 104 U/L [facility] ALT [Catalytic activity/Vol] 19 U/L 0 - 32 U/L [facility] AST [Catalytic activity/Vol] 14 U/L 0 - 31 U/L [facility] Bilirubin [Mass/Vol] 0.5 mg/dL 0.0 - 1 .2 mg/dL [facility] Bilirubin.direct [Mass/Vol] mg/dL 0.0 - 0.3 mg/dL [facility] Bilirubin.indirect [Mass/Vol] see below 0.0 - 1.0 mg/dL [facility] Comment on above: Indirect Bilirubin c annot be calculated since Total Bilirubin and/or Direct Bilirubin is below measurable range. Protein [Mass/Vol] 6.3 g/dL Low 6.4 - 8.3 g/dL [facility] Hgb A1Con 10-30-2022 HbA1c (Bld) [Mass fraction] 4.8 % Normal 4.0-5.6 [facility] Lipid Panelon 10-30-2022 Cholesterol [Mass/Vol] 99 mg/dL Normal 0-199 [facility] Cholesterol in HDL [Mass/Vol] 34 mg/dL Normal >40 [facility] Cholesterol in LDL [Mass/Vol] 43 mg/dL Normal 0-99 [facility] Triglyceride [Mass/Vol] 108 mg/dL Normal 0-149 [facility] VLDL Cholesterol (Calculated) 22 mg/dL Normal [facility] Cholesterol [Mass/Vol] 99 mg/dL 0 - 1 99 mg/dL [facility] Cholesterol in HDL [Mass/Vol] 34 mg/dL 40 - PINF mg/dL [facility] Cholesterol in LDL [Mass/Vol] 43 mg/dL 0 - 99 mg/dL [facility] Cholesterol in VLDL [Mass/Vol] 22 mg/dL [facility] Triglyceride [Mass/Vol] 108 mg/dL 0 - 149 mg/dL [facility] Liver Panelon 10-30-2022 Albumin [Mass/Vol] 3.7 g/dL Normal 3.5-5.2 [facility] ALP [Catalytic activity/Vol] 55 U/L Normal 35-104 [facility] ALT [Catalytic activity/Vol] 19 U/L Normal 0-32 [facility] AST [Catalytic activity/Vol] 14 U/L Normal 0-31 [facility] Bilirubin [Mass/Vol] 0.5 mg/dL Normal 0.0-1.2 [facility] Bilirubin Indirect see below Normal 0.0-1.0 [facility] Comment on above: Result Comment: Grace rect Bilirubin cannot be calculated since Total Bilirubin and/or Direct Bilirubin is below measurable range. Bilirubin.indirect [Mass/Vol] mg/dL Normal 0.0-0.3 [facility] Protein [Mass/Vol] 6.3 g/dL Low 6.4-8.3 [facility] METER GLUCOSEon 10-30-2022 Glucose [Mass/Vol] 111 mg/dL High 74-99 [facility] Magnesiumon 10-30-2022 Magnesium [Mass/Vol] 1.7 mg/dL Normal 1.6-2.6 [facility] Magnesium [Mass/Vol] 1.7 mg/dL 1.6 - 2 .6 mg/dL [facility] No Panel Informationon 10-30 Interpretation and review of laboratory results Abnormal [facility] POCT Glucoseon 10-30-2022 Glucose [Mass/Vol] 111 mg/dL High 74 - 99 mg/dL [facility] Interpretation and review of laboratory results Abnormal [facility] Phosphoruson 10-30-2022 Phosphate [Mass/Vol] 4.0 mg/dL Normal 2.5-4.5 [facility] Phosphate [Mass/Vol] 4.0 mg/dL 2.5 - 4 .5 mg/dL [facility] T4, Freeon 10-30-2022 Free T4 [Mass/Vol] 1.32 ng/dL 0.93 - 1. 70 ng/dL [facility] TSHon 10-30-2022 TSH [Mass/Vol] 0.828 [facility] TSH w/out Reflexon TSH w/out Reflex 0.828 uIU/mL Normal 0.270-4.200 [facility] Thyroxine Freeon 10-30-2022 Thyroxine Free 1.32 ng/dL Normal 0.93-1.70 [facility] Comprehensive Metabolic Pane evan 10-29-2022 Potassium see note Critically abnormal 3.5-5.0 [facility] Comment on above: Result Comment: Lisa cui order. Made no charge to patient for testing Corrected result; previously reported as 4.3 on 10/24/2022 at 19:57 by CRIAM Hemoglobin A1con 10-29-2022 HbA1c (Bld) [Mass fraction] 5.1 % 4.0 - 5.6 % [facility] Hgb A1Con 10-29-2022 HbA1c (Bld) [Mass fraction] 5.1 % Normal 4.0-5.6 [facility] METER GLUCOSEon 10-29-2022 Glucose [Mass/Vol] 128 mg/dL High 74-99 [facility] Glucose [Mass/Vol] 146 mg/dL High 74-99 [facility] Glucose [Mass/Vol] 104 mg/dL High 74-99 [facility] Glucose [Mass/Vol] 101 mg/dL High 74-99 [facility] No Panel Informationon 10-29 [facility] POC Urine Qualon 0 10-29-2022 Beta HCG ( test) Ql (U) Negative Negative [facility] [employer] Work Phone: Beta HCG ( test) Ql (U) [id number] [facility] Work Phone: Negative QC Pass/Fail Pass [facility] [employer] Work Phone: Positive QC Pass/Fail Pass [facility] Work Phone: POCT Glucoseon 10-29-2022 Glucose [Mass/Vol] 128 mg/dL High 74 - 99 mg/dL [facility] Interpretation and review of laboratory results Abnormal [facility] Glucose [Mass/Vol] 146 mg/dL High 74 - 99 mg/dL [facility] Interpretation and review of laboratory results Abnormal [facility] Glucose [Mass/Vol] 104 mg/dL High 74 - 99 mg/dL [facility] Interpretation and review of laboratory results Abnormal [facility] Glucose [Mass/Vol] 101 mg/dL High 74 - 99 mg/dL [facility] Interpretation and review of laboratory results Abnormal [facility] Surgical Specimenon 10-30-19 23 Surgical Specimen [facility] [address] [id number] FINAL SURGICAL PATHOLOGY REPORT NAME: BATOOL KINGSLEY Date of 10/29/2022 Collection: Medical Record [id number] Date of 10/29/2022 Number: Receipt: Age: 22 Y Sex: F Date 10/31/2022 12:02 Reported: Date Of : 2000 [facility] [id number] Admitting DERIC FLORENCE Number: Physician: Patient DIS [id number] Ordering DERIC FLORENCE Location: Physician: Accession Number: [...] of hanson haq mucosal lined fibrous tissue, customer response representative or portions of small bowel which measures 4.1 x 2.5 x 1.7 cm. Much of the exterior is covered by hanson haq, soft to finely folded mucosa. Numerous, small metallic surgical [place] are present throughout the exterior. Discrete mucosal lesions are not present. Sectioning is unremarkable. Patient Observation Assistant sections are submitted. Block label A1. (JORGE L:TAURUS) CODES: [id number]; Department of Pathology Page 1 of 1 Normal [facility] CBC (Hemogram)on 10-24-2022 Erythrocyte distribution width (RBC) [Ratio] 13.7 fL 11.5 - 15.0 fL [facility] Hematocrit (Bld) [Volume fraction] 43.9 % 34.0 - 48.0 % [facility] Hemoglobin (Bld) [Mass/Vol] 14.3 g/dL 11.5 - 15.5 g/dL [facility] MCH (RBC) [Entitic mass] 28.9 pg 26.0 - 35.0 pg [facility] MCHC (RBC) [Mass/Vol] 32.6 % 32.0 - 34.5 % [facility] MCV (RBC) [Entitic vol] 88.9 fL 80.0 - 99.9 fL [facility] Platelet mean volume (Bld) [Entitic vol] 10.6 fL 7.0 - 12.0 fL [facility] Platelets (Bld) [#/Vol] 321 10*3/uL [facility] RBC (Bld) [#/Vol] 4.94 10*6/uL [facility] WBC (Bld) [#/Vol] 7.0 10*3/uL [facility] [place] [facility] CBC With Platelet No Differe ntialon 10-24-2022 Hematocrit (Bld) [Volume fraction] 43.9 % Normal 34.0-48.0 [facility] Hemoglobin (Bld) [Mass/Vol] 14.3 g/dL Normal 11.5-15.5 [facility] MCH (RBC) [Entitic mass] 28.9 pg Normal 26.0-35.0 [facility] MCHC 32.6 % Normal 32.0-34.5 [facility] MCV (RBC) [Entitic vol] 88.9 fL Normal 80.0-99.9 [facility] Platelet Count 321 E9/L Normal 130-450 [facility] Platelet mean volume (Bld) [Entitic vol] 10.6 fL Normal 7.0-12.0 [facility] RBC 4.94 E12/L Normal 3.50-5.50 [facility] RDW 13.7 fL Normal 11.5-15.0 [facility] WBC 7.0 E9/L Normal 4.5-11.5 [facility] Comprehensive Metabolic Pane l reflex Mgon 10-24-2022 Albumin [Mass/Vol] 4.6 g/dL Normal 3.5-5.2 [facility] ALP [Catalytic activity/Vol] 69 U/L Normal 35-104 [facility] ALT [Catalytic activity/Vol] 27 U/L Normal 0-32 [facility] Anion gap [Moles/Vol] 12 mmol/L Normal 7-16 [facility] AST [Catalytic activity/Vol] 16 U/L Normal 0-31 [facility] Bilirubin [Mass/Vol] 0.4 mg/dL Normal 0.0-1.2 [facility] Calcium [Mass/Vol] 9.3 mg/dL Normal 8.6-10.2 [facility] Chloride [Moles/Vol] 104 mmol/L Normal 98-107 [facility] CO2 [Moles/Vol] 24 mmol/L Normal 22-29 [facility] Creatinine [Mass/Vol] 0.6 mg/dL Normal 0.5-1.0 [facility] GFR Calculated >60 Normal >=60 [facility] Comment on above: Result Comment: Dion atric [...] Glucose [Mass/Vol] 79 mg/dL Normal 74-99 [facility] Magnesium [Moles/Vol] 4.3 mmol/L Normal 3.5-5.0 [facility] Protein [Mass/Vol] 7.6 g/dL Normal 6.4-8.3 [facility] Sodium [Moles/Vol] 140 mmol/L Normal 132-146 [facility] Urea nitrogen [Mass/Vol] 13 mg/dL Normal 6-20 [facility] Comprehensive metabolic 2000 panelon 10-24-2022 Potassium [Moles/Vol] 4.3 mmol/L 3.5 - 5.0 mmol/L [facility] Albumin [Mass/Vol] 4.6 g/dL 3.5 - 5.2 g/dL [facility] ALP [Catalytic activity/Vol] 69 U/L 35 - 104 U/L [facility] ALT [Catalytic activity/Vol] 27 U/L 0 - 32 U/L [facility] Anion gap [Moles/Vol] 12 mmol/L 7 - 16 mmol/L [facility] AST [Catalytic activity/Vol] 16 U/L 0 - 31 U/L [facility] Bilirubin [Mass/Vol] 0.4 mg/dL 0.0 - 1 .2 mg/dL [facility] Calcium [Mass/Vol] 9.3 mg/dL 8.6 - 10. 2 mg/dL [facility] Chloride [Moles/Vol] 104 mmol/L 98 - 10 7 mmol/L [facility] CO2 [Moles/Vol] 24 mmol/L 22 - 29 mmol/L [facility] Creatinine [Mass/Vol] 0.6 mg/dL 0.5 - 1.0 mg/dL [facility] GFR/1.73 sq M.predicted among non-blacks MDRD (S/P/Bld) [Vol rate/Area] mL/min/1.73 60 - PINF mL/min/1.73 [facility] Comment on above: Pediatric calculator [...] [Mass/Vol] 79 mg/dL 74 - 99 mg/dL [facility] Potassium [Moles/Vol] 4.3 mmol/L 3.5 - 5.0 mmol/L [facility] Protein [Mass/Vol] 7.6 g/dL 6.4 - 8.3 g/dL [facility] Sodium [Moles/Vol] 140 mmol/L 132 - 146 mmol/L [facility] Urea nitrogen [Mass/Vol] 13 mg/dL 6 - 20 mg/dL [facility] ACT PARTIAL THROMBO TIMEon 0 - ACT PARTIAL THROMBO TIME 30.4 SECONDS Normal 20.0-32.[address] [facility] Comment on above: Result Comment: APTT THERAPEUTIC RANGE = 43.6 TO 68.4 SECONDS Performed By: #### V ITB1, ZINC #### [facility] [address] [place] [address] #### B12, FOL, CMP, PREALB, ANDREZ, CBCD #### [facility] [address] [place] [address] CBC with DIFFERENTIALon 04-0 Basophils (Bld) [#/Vol] 0.0 10*3/uL Normal 0.0-0.[address] [facility] Comment on above: Performed By: #### V ITB1, ZINC #### [facility] [address] [place] [address] #### B12, FOL, CMP, PREALB, ANDREZ, CBCD #### [facility] [address] [place] [address] 13287 Basophils/100 WBC (Bld) 0.5 % Normal 0.0-1.[address] [facility] Comment on above: Performed By: #### V ITB1, ZINC #### [facility] [address] [place] [address] #### B12, FOL, CMP, PREALB, ANDREZ, CBCD #### [facility] [address] [place] [address] 16578 Eosinophils (Bld) [#/Vol] 0.3 10*3/uL Normal 0.0-0.[address] [facility] Comment on above: Performed By: #### V ITB1, ZINC #### [facility] [address] [place] [address] #### B12, FOL, CMP, PREALB, ANDREZ, CBCD #### [facility] [address] [place] [address] 54914 Eosinophils/100 WBC (Bld) 4.1 % High 1.0-4.[address] [facility] Comment on above: Performed By: #### V ITB1, ZINC #### [facility] [address] [place] [address] #### B12, FOL, CMP, PREALB, ANDREZ, CBCD #### [facility] [address] [place] [address] 08978 Hematocrit (Bld) [Volume fraction] 40.6 % Normal 37.0-47.[address] [facility] Comment on above: Performed By: #### V ITB1, ZINC #### [facility] [address] [place] [address] #### B12, FOL, CMP, PREALB, ANDREZ, CBCD #### [facility] [address] [place] [address] Hemoglobin (Bld) [Mass/Vol] 13.2 g/dL Normal 12.0-16.[address] [facility] Comment on above: Performed By: #### V ITB1, ZINC #### [facility] [address] [place] [address] #### B12, FOL, CMP, PREALB, ANDREZ, CBCD #### [facility] [address] [place] [address] 80911 IG # 0.0 10*3/uL Normal 0.0-0.1 [facility] Comment on above: Performed By: #### V ITB1, ZINC #### [facility] [address] [place] [address] #### B12, FOL, CMP, PREALB, ANDREZ, CBCD #### [facility] [address] [place] [address] 80172 IG % 0.5 % Normal 0.0-1.[address] [facility] Comment on above: Performed By: #### V ITB1, ZINC #### [facility] [address] [place] [address] #### B12, FOL, CMP, PREALB, ANDREZ, CBCD #### [facility] [address] [place] [address] 19073 Lymphocytes (Bld) [#/Vol] 3.2 10*3/uL Normal 1.3-4.[address] [facility] Comment on above: Performed By: #### V ITB1, ZINC #### [facility] [address] [place] [address] #### B12, FOL, CMP, PREALB, ANDREZ, CBCD #### [facility] [address] [place] [address] 76656 Lymphocytes/100 WBC (Bld) 41.8 % High 27.0-41.[address] [facility] Comment on above: Performed By: #### V ITB1, ZINC #### [facility] [address] [place] [address] #### B12, FOL, CMP, PREALB, ANDREZ, CBCD #### [facility] [address] [place] [address] MCV (RBC) [Entitic vol] 88.6 fL Normal 81.0-99.[address] [facility] Comment on above: Performed By: #### V ITB1, ZINC #### [facility] [address] [place] [address] #### B12, FOL, CMP, PREALB, ANDREZ, CBCD #### [facility] [address] [place] [address] 02673 MEAN CORPUSCULAR HGB 28.8 pg Normal 27.0-31.[address] [facility] Comment on above: Performed By: #### V ITB1, ZINC #### [facility] [address] [place] [address] #### B12, FOL, CMP, PREALB, ANDREZ, CBCD #### [facility] [address] [place] [address] 99310 MEAN CORPUSCULAR HGB CONC 32.5 g/dl Low 33.0-37.[address] [facility] Comment on above: Performed By: #### V ITB1, ZINC #### [facility] [address] [place] [address] #### B12, FOL, CMP, PREALB, ANDREZ, CBCD #### [facility] [address] [place] [address] 25554 Monocytes (Bld) [#/Vol] 0.4 10*3/uL Normal 0.1-1.[address] [facility] Comment on above: Performed By: #### V ITB1, ZINC #### [facility] [address] [place] [address] #### B12, FOL, CMP, PREALB, ANDREZ, CBCD #### [facility] [address] [place] [address] 73134 Monocytes/100 WBC (Bld) 5.1 % Normal 3.0-9.[address] [facility] Comment on above: Performed By: #### V ITB1, ZINC #### [facility] [address] [place] [address] #### B12, FOL, CMP, PREALB, ANDREZ, CBCD #### [facility] [address] [place] [address] 72795 Neutrophils (Bld) [#/Vol] 3.7 10*3/uL Normal 2.3-7.[address] [facility] Comment on above: Performed By: #### V ITB1, ZINC #### [facility] [address] [place] [address] #### B12, FOL, CMP, PREALB, ANDREZ, CBCD #### [facility] [address] [place] [address] 16014 Neutrophils/100 WBC (Bld) 48.0 % Normal 47.0-73.[address] [facility] Comment on above: Performed By: #### V ITB1, ZINC #### [facility] [address] [place] [address] #### B12, FOL, CMP, PREALB, ANDREZ, CBCD #### [facility] [address] [place] [address] 24869 NUCLEATED RED BLOOD CELL 0.0 10*3/uL Normal 0.0-0.[address] [facility] Comment on above: Performed By: #### V ITB1, ZINC #### [facility] [address] [place] [address] #### B12, FOL, CMP, PREALB, ANDREZ, CBCD #### [facility] [address] [place] [address] 98132 NUCLEATED RED BLOOD CELL 0.0 % Normal 0.0-0.[address] [facility] Comment on above: Performed By: #### V ITB1, ZINC #### [facility] [address] [place] [address] #### B12, FOL, CMP, PREALB, ANDREZ, CBCD #### [facility] [address] [place] [address] 96311 PLATELET COUNT AUTOMATED 300 10*3/uL Normal 130-[address] [facility] Comment on above: Performed By: #### V ITB1, ZINC #### [facility] [address] [place] [address] #### B12, FOL, CMP, PREALB, ANDREZ, CBCD #### [facility] [address] [place] [address] Platelet mean volume (Bld) [Entitic vol] 10.7 fL Normal 9.6-12.3 [facility] Comment on above: Performed By: #### V ITB1, ZINC #### [facility] [address] [place] [address] #### B12, FOL, CMP, PREALB, ANDREZ, CBCD #### [facility] [address] [place] [address] 22728 RBC (Bld) [#/Vol] 4.58 10*6/uL Normal 4.10-5.[address] [facility] Comment on above: Performed By: #### V ITB1, ZINC #### [facility] [address] [place] [address] #### B12, FOL, CMP, PREALB, ANDREZ, CBCD #### [facility] [address] [place] [address] 93693 RED CELL DISTRI WIDTH 13.3 % Normal 0-14.5 [facility] Comment on above: Performed By: #### V ITB1, ZINC #### [facility] [address] [place] [address] #### B12, FOL, CMP, PREALB, ANDREZ, CBCD #### [facility] [address] [place] [address] WBC (Bld) [#/Vol] 7.6 10*3/uL Normal 4.8-10.8 [facility] Comment on above: Performed By: #### V ITB1, ZINC #### [facility] [address] [place] [address] #### B12, FOL, CMP, PREALB, ANDREZ, CBCD #### [facility] [address] [place] [address] COMPREHENSIVE METABOLIC PANE Evan 10-04-2022 Albumin [Mass/Vol] 3.8 g/dL Normal 3.4-5.0 [facility] Comment on above: Performed By: #### V ITB1, ZINC #### [facility] [address] [place] [address] #### B12, FOL, CMP, PREALB, ANDREZ, CBCD #### [facility] [address] [place] [address] ALP [Catalytic activity/Vol] 63 U/L Normal 46-[address] [facility] Comment on above: Performed By: #### V ITB1, ZINC #### [facility] [address] [place] [address] #### B12, FOL, CMP, PREALB, ANDREZ, CBCD #### [facility] [address] [place] [address] ALT [Catalytic activity/Vol] 18 U/L Normal 10-[address] [facility] Comment on above: Performed By: #### V ITB1, ZINC #### [facility] [address] [place] [address] #### B12, FOL, CMP, PREALB, ANDREZ, CBCD #### [facility] [address] [place] [address] 14823 AST [Catalytic activity/Vol] 15 U/L Normal 0-[address] [facility] Comment on above: Performed By: #### V ITB1, ZINC #### [facility] [address] [place] [address] #### B12, FOL, CMP, PREALB, ANDREZ, CBCD #### [facility] [address] [place] [address] 46338 Bilirubin [Mass/Vol] 0.3 mg/dL Normal 0.3-1.[address] [facility] Comment on above: Performed By: #### V ITB1, ZINC #### [facility] [address] [place] [address] #### B12, FOL, CMP, PREALB, ANDREZ, CBCD #### [facility] [address] [place] [address] CALCIUM,TOTAL 9.2 md/dL Normal 8.7-10.4 [facility] Comment on above: Performed By: #### V ITB1, ZINC #### [facility] [address] [place] [address] #### B12, FOL, CMP, PREALB, ANDREZ, CBCD #### [facility] [address] [place] [address] Chloride [Moles/Vol] 105 mmol/L Normal 98-[address] [facility] Comment on above: Performed By: #### V ITB1, ZINC #### [facility] [address] [place] [address] #### B12, FOL, CMP, PREALB, ANDREZ, CBCD #### [facility] [address] [place] [address] 77982 CO2 [Moles/Vol] 27 mmol/L Normal 20-31 [facility] Comment on above: Performed By: #### V ITB1, ZINC #### [facility] [address] [place] [address] #### B12, FOL, CMP, PREALB, ANDREZ, CBCD #### [facility] [address] [place] [address] Creatinine [Mass/Vol] 0.61 mg/dL Normal 0.55-1.02 [facility] Comment on above: Performed By: #### V ITB1, ZINC #### [facility] [address] [place] [address] #### B12, FOL, CMP, PREALB, ANDREZ, CBCD #### [facility] [address] [place] [address] EST GLOM FILT > [address] [facility] Comment on above: Result Comment: Result [...] #### V ITB1, ZINC #### [facility] [address] [place] [address] #### B12, FOL, CMP, PREALB, ANDREZ, CBCD #### [facility] [address] [place] [address] 79514 ESTIMATED GLOM FILT RATE > [address] [facility] Comment on above: Performed By: #### V ITB1, ZINC #### [facility] [address] [place] [address] #### B12, FOL, CMP, PREALB, ANDREZ, CBCD #### [facility] [address] [place] [address] 95358 Glucose [Mass/Vol] 87 mg/dL Normal 65-99 [facility] Comment on above: Performed By: #### V ITB1, ZINC #### [facility] [address] [place] [address] #### B12, FOL, CMP, PREALB, ANDREZ, CBCD #### [facility] [address] [place] [address] 63675 Potassium [Moles/Vol] 4.2 mmol/L Normal 3.4-5.1 [facility] Comment on above: Performed By: #### V ITB1, ZINC #### [facility] [address] [place] [address] #### B12, FOL, CMP, PREALB, ANDREZ, CBCD #### [facility] [address] [place] [address] 41387 Protein [Mass/Vol] 6.9 g/dL Normal 6.0-8.0 [facility] Comment on above: Performed By: #### V ITB1, ZINC #### [facility] [address] [place] [address] #### B12, FOL, CMP, PREALB, ANDREZ, CBCD #### [facility] [address] [place] [address] Sodium [Moles/Vol] 139 mmol/L Normal 136-145 [facility] Comment on above: Performed By: #### V ITB1, ZINC #### [facility] [address] [place] [address] #### B12, FOL, CMP, PREALB, ANDREZ, CBCD #### [facility] [address] [place] [address] Urea nitrogen [Mass/Vol] 14 mg/dL Normal 9-[address] [facility] Comment on above: Performed By: #### V ITB1, ZINC #### [facility] [address] [place] [address] #### B12, FOL, CMP, PREALB, ANDREZ, CBCD #### [facility] [address] [place] [address] [id number] 10-04-2022 ESTIMATED AVERAGE GLUCOSE [address] [facility] Comment on above: Performed By: #### V ITB1, ZINC #### [facility] [address] [place] [address] #### B12, FOL, CMP, PREALB, ANDREZ, CBCD #### [facility] [address] [place] [address] HbA1c (Bld) [Mass fraction] 5.1 % Normal 4.8-5.[address] [facility] Comment on above: Result Comment: Standarization of method based on National Glycohemoglobin Standardization Program (NGSP). HEMOGLOBIN A1c(%) DEGREE of GLUCOSE CONTROL 5.7-6.4% Prediabetes range >6.4% Diagnosis of Diabetes <7% Glycemic control for adults with Diabetes Performed By: #### V ITB1, ZINC #### [facility] [address] [place] [address] #### B12, FOL, CMP, PREALB, ANDREZ, CBCD #### [facility] [address] [place] [address] 59657 LIPID PANEL CHOLESTEROL/HDLo n 10-04-2022 Cholesterol [Mass/Vol] 122 mg/dL Normal <200 [facility] Comment on above: Performed By: #### V ITB1, ZINC #### [facility] [address] [place] [address] #### B12, FOL, CMP, PREALB, ANDREZ, CBCD #### [facility] [address] [place] [address] 16569 Cholesterol in HDL [Mass/Vol] 28 mg/dL Low 40-[address] [facility] Comment on above: Performed By: #### V ITB1, ZINC #### [facility] [address] [place] [address] #### B12, FOL, CMP, PREALB, ANDREZ, CBCD #### [facility] [address] [place] [address] 50150 Cholesterol in LDL [Mass/Vol] 55 mg/dL Normal 9-[address] [facility] Comment on above: Performed By: #### V ITB1, ZINC #### [facility] [address] [place] [address] #### B12, FOL, CMP, PREALB, ANDREZ, CBCD #### [facility] [address] [place] [address] 91437 Cholesterol.total/Chol esterol in HDL [Mass ratio] 4.4 {ratio} Normal [facility] Comment on above: Performed By: #### V ITB1, ZINC #### [facility] [address] [place] [address] #### B12, FOL, CMP, PREALB, ANDREZ, CBCD #### [facility] [address] [place] [address] Triglyceride [Mass/Vol] 196 mg/dL High <[address] [facility] Comment on above: Result Comment: TRIGLYCERIDE RISK ASSESSMENT: 150-199 mg/dl BORDERLINE HIGH >200 mg//dl HIGH . Performed By: #### V ITB1, ZINC #### [facility] [address] [place] [address] #### B12, FOL, CMP, PREALB, ANDREZ, CBCD #### [facility] [address] [place] [address] 84937 VLDL CHOLESTEROL 39 mg/dL Normal 6-40 [facility] Comment on above: Performed By: #### V ITB1, ZINC #### [facility] [address] [place] [address] #### B12, FOL, CMP, PREALB, ANDREZ, CBCD #### [facility] [address] [place] [address] 81078 THROAT CULTUREon 08-15-2022 Throat culture THROAT CULTURE NORMAL ARIN Normal [facility] Comment on above: Performed By: #### V ITB1, ZINC #### [facility] [address] [place] [address] #### B12, FOL, CMP, PREALB, ANDREZ, CBCD #### [facility] [address] [place] [address] 83555 NOVL CORONAVIRUS NAAon 08-14 SARS-CoV-2 (COVID-19) RNA SUJATA+probe Ql (Unsp spec) Detected Abnormal Not Detected [facility] Comment on above: Result Comment: Evelyn ents who have a positive COVID-19 test result may now have treatment options. Treatment options are available for patients with mild to moderate symptoms and for hospitalized patients. Visit our website at [email or web address] for resources and information. This nucleic acid amplification test was developed and its performance characteristics determined by [employer]. Nucleic acid amplification tests include RT- PCR [...] #### V ITB1, ZINC #### [facility] [address] [place] [address] #### B12, FOL, CMP, PREALB, ANDREZ, CBCD #### [facility] [address] [place] [address] 54967 CBC with DIFFERENTIALon 08-01 Basophils (Bld) [#/Vol] 0.0 10*3/uL Normal 0.0-0.[address] [facility] Comment on above: Performed By: #### V ITB1, ZINC #### [facility] [address] [place] [address] #### B12, FOL, CMP, PREALB, ANDREZ, CBCD #### [facility] [address] [place] [address] 38145 Basophils/100 WBC (Bld) 0.5 % Normal 0.0-1.[address] [facility] Comment on above: Performed By: #### V ITB1, ZINC #### [facility] [address] [place] [address] #### B12, FOL, CMP, PREALB, ANDREZ, CBCD #### [facility] [address] [place] [address] 76511 Eosinophils (Bld) [#/Vol] 0.2 10*3/uL Normal 0.0-0.[address] [facility] Comment on above: Performed By: #### V ITB1, ZINC #### [facility] [address] [place] [address] #### B12, FOL, CMP, PREALB, ANDREZ, CBCD #### [facility] [address] [place] [address] 48244 Eosinophils/100 WBC (Bld) 4.2 % High 1.0-4.[address] [facility] Comment on above: Performed By: #### V ITB1, ZINC #### [facility] [address] [place] [address] #### B12, FOL, CMP, PREALB, ANDREZ, CBCD #### [facility] [address] [place] [address] 31521 Hematocrit (Bld) [Volume fraction] 43.8 % Normal 37.0-47.[address] [facility] Comment on above: Performed By: #### V ITB1, ZINC #### [facility] [address] [place] [address] #### B12, FOL, CMP, PREALB, ANDREZ, CBCD #### [facility] [address] [place] [address] 74539 Hemoglobin (Bld) [Mass/Vol] 14.0 g/dL Normal 12.0-16.[address] [facility] Comment on above: Performed By: #### V ITB1, ZINC #### [facility] [address] [place] [address] #### B12, FOL, CMP, PREALB, ANDREZ, CBCD #### [facility] [address] [place] [address] 48883 IG # 0.1 10*3/uL Normal 0.0-0.1 [facility] Comment on above: Performed By: #### V ITB1, ZINC #### [facility] [address] [place] [address] #### B12, FOL, CMP, PREALB, ANDREZ, CBCD #### [facility] [address] [place] [address] IG % 1.1 % High 0.0-1.[address] [facility] Comment on above: Performed By: #### V ITB1, ZINC #### [facility] [address] [place] [address] #### B12, FOL, CMP, PREALB, ANDREZ, CBCD #### [facility] [address] [place] [address] 13519 Lymphocytes (Bld) [#/Vol] 2.9 10*3/uL Normal 1.3-4.[address] [facility] Comment on above: Performed By: #### V ITB1, ZINC #### [facility] [address] [place] [address] #### B12, FOL, CMP, PREALB, ANDREZ, CBCD #### [facility] [address] [place] [address] 52682 Lymphocytes/100 WBC (Bld) 51.5 % High 27.0-41.[address] [facility] Comment on above: Performed By: #### V ITB1, ZINC #### [facility] [address] [place] [address] #### B12, FOL, CMP, PREALB, ANDREZ, CBCD #### [facility] [address] [place] [address] 10656 MCV (RBC) [Entitic vol] 88.8 fL Normal 81.0-99.[address] [facility] Comment on above: Performed By: #### V ITB1, ZINC #### [facility] [address] [place] [address] #### B12, FOL, CMP, PREALB, ANDREZ, CBCD #### [facility] [address] [place] [address] 49487 MEAN CORPUSCULAR HGB 28.4 pg Normal 27.0-31.[address] [facility] Comment on above: Performed By: #### V ITB1, ZINC #### [facility] [address] [place] [address] #### B12, FOL, CMP, PREALB, ANDREZ, CBCD #### [facility] [address] [place] [address] 69424 MEAN CORPUSCULAR HGB CONC 32.0 g/dl Low 33.0-37.[address] [facility] Comment on above: Performed By: #### V ITB1, ZINC #### [facility] [address] [place] [address] #### B12, FOL, CMP, PREALB, ANDREZ, CBCD #### [facility] [address] [place] [address] 86463 Monocytes (Bld) [#/Vol] 0.4 10*3/uL Normal 0.1-1.[address] [facility] Comment on above: Performed By: #### V ITB1, ZINC #### [facility] [address] [place] [address] #### B12, FOL, CMP, PREALB, ANDREZ, CBCD #### [facility] [address] [place] [address] 57930 Monocytes/100 WBC (Bld) 7.0 % Normal 3.0-9.[address] [facility] Comment on above: Performed By: #### V ITB1, ZINC #### [facility] [address] [place] [address] #### B12, FOL, CMP, PREALB, ANDREZ, CBCD #### [facility] [address] [place] [address] 30509 Neutrophils (Bld) [#/Vol] 2.0 10*3/uL Low 2.3-7.[address] [facility] Comment on above: Performed By: #### V ITB1, ZINC #### [facility] [address] [place] [address] #### B12, FOL, CMP, PREALB, ANDREZ, CBCD #### [facility] [address] [place] [address] 79765 Neutrophils/100 WBC (Bld) 35.7 % Low 47.0-73.[address] [facility] Comment on above: Performed By: #### V ITB1, ZINC #### [facility] [address] [place] [address] #### B12, FOL, CMP, PREALB, ANDREZ, CBCD #### [facility] [address] [place] [address] 24625 NUCLEATED RED BLOOD CELL 0.0 10*3/uL Normal 0.0-0.[address] [facility] Comment on above: Performed By: #### V ITB1, ZINC #### [facility] [address] [place] [address] #### B12, FOL, CMP, PREALB, ANDREZ, CBCD #### [facility] [address] [place] [address] 82754 NUCLEATED RED BLOOD CELL 0.0 % Normal 0.0-0.[address] [facility] Comment on above: Performed By: #### V ITB1, ZINC #### [facility] [address] [place] [address] #### B12, FOL, CMP, PREALB, ANDREZ, CBCD #### [facility] [address] [place] [address] 92277 PLATELET COUNT AUTOMATED 277 10*3/uL Normal 130-[address] [facility] Comment on above: Performed By: #### V ITB1, ZINC #### [facility] [address] [place] [address] #### B12, FOL, CMP, PREALB, ANDREZ, CBCD #### [facility] [address] [place] [address] 55878 Platelet mean volume (Bld) [Entitic vol] 10.1 fL Normal 9.6-12.3 [facility] Comment on above: Performed By: #### V ITB1, ZINC #### [facility] [address] [place] [address] #### B12, FOL, CMP, PREALB, ANDREZ, CBCD #### [facility] [address] [place] [address] 83250 RBC (Bld) [#/Vol] 4.93 10*6/uL Normal 4.10-5.[address] [facility] Comment on above: Performed By: #### V ITB1, ZINC #### [facility] [address] [place] [address] #### B12, FOL, CMP, PREALB, ANDREZ, CBCD #### [facility] [address] [place] [address] 33675 RED CELL DISTRI WIDTH 13.6 % Normal 0-14.5 [facility] Comment on above: Performed By: #### V ITB1, ZINC #### [facility] [address] [place] [address] #### B12, FOL, CMP, PREALB, ANDREZ, CBCD #### [facility] [address] [place] [address] 25765 WBC (Bld) [#/Vol] 5.7 10*3/uL Normal 4.8-10.8 [facility] Comment on above: Performed By: #### V ITB1, ZINC #### [facility] [address] [place] [address] #### B12, FOL, CMP, PREALB, ANDREZ, CBCD #### [facility] [address] [place] [address] 21358 CHEST (2 V)on 08-13-2022 CRCXR Name: BATOOL KINGSLEY Phys: KAELA ARELLANO CNP : 2000 Age: 22 Sex: F Acct: [id number] Loc: RAD Exam Date: 08/13/2022 Status: REG CLI Radiology No: [id number] Unit No: [id number] EXAM# TYPE/EXAM RESULT [id number] RAD/CHEST (2 V) SEE REPORT INDICATION: Stuffy [...] CC: Technologist: WIN CHRISTIE Transcribed Date/Time: 08/13/2022 (0806) Computer Artist: OSCAR Printed Date/Time: 08/13/2022 (9854) PAGE 1 Signed Report Normal [facility] COMPREHENSIVE METABOLIC PANE Evan 08-13-2022 Albumin [Mass/Vol] 3.7 g/dL Normal 3.4-5.0 [facility] Comment on above: Performed By: #### V ITB1, ZINC #### [facility] [address] #### B12, FOL, CMP, PREALB, ANDREZ, CBCD #### [facility] [address] [place] [address] 86373 ALP [Catalytic activity/Vol] 56 U/L Normal 46-[address] [facility] Comment on above: Performed By: #### V ITB1, ZINC #### [facility] [address] [place] [address] #### B12, FOL, CMP, PREALB, ANDREZ, CBCD #### [facility] [address] [place] [address] 81239 ALT [Catalytic activity/Vol] 21 U/L Normal 10-[address] [facility] Comment on above: Performed By: #### V ITB1, ZINC #### [facility] [address] [place] [address] #### B12, FOL, CMP, PREALB, ANDREZ, CBCD #### [facility] [address] [place] [address] 96661 AST [Catalytic activity/Vol] 23 U/L Normal 0-[address] [facility] Comment on above: Performed By: #### V ITB1, ZINC #### [facility] [address] [place] [address] #### B12, FOL, CMP, PREALB, ANDREZ, CBCD #### [facility] [address] [place] [address] Bilirubin [Mass/Vol] mg/dL Low 0.3-1.[address] [facility] Comment on above: Performed By: #### V ITB1, ZINC #### [facility] [address] [place] [address] #### B12, FOL, CMP, PREALB, ANDREZ, CBCD #### [facility] [address] [place] [address] 27135 CALCIUM,TOTAL 9.2 md/dL Normal 8.7-10.4 [facility] Comment on above: Performed By: #### V ITB1, ZINC #### [facility] [address] [place] [address] #### B12, FOL, CMP, PREALB, ANDREZ, CBCD #### [facility] [address] [place] [address] 53188 Chloride [Moles/Vol] 105 mmol/L Normal 98-[address] [facility] Comment on above: Performed By: #### V ITB1, ZINC #### [facility] [address] [place] [address] #### B12, FOL, CMP, PREALB, ANDREZ, CBCD #### [facility] [address] [place] [address] 16874 CO2 [Moles/Vol] 25 mmol/L Normal 20-31 [facility] Comment on above: Performed By: #### V ITB1, ZINC #### [facility] [address] [place] [address] #### B12, FOL, CMP, PREALB, ANDREZ, CBCD #### [facility] [address] [place] [address] 10363 Creatinine [Mass/Vol] 0.53 mg/dL Low 0.55-1.02 [facility] Comment on above: Performed By: #### V ITB1, ZINC #### [facility] [address] [place] [address] #### B12, FOL, CMP, PREALB, ANDREZ, CBCD #### [facility] [address] [place] [address] EST GLOM FILT > [address] [facility] Comment on above: Result Comment: Result [...] #### V ITB1, ZINC #### [facility] [address] [place] [address] #### B12, FOL, CMP, PREALB, ANDREZ, CBCD #### [facility] [address] [place] [address] ESTIMATED GLOM FILT RATE > [address] [facility] Comment on above: Performed By: #### V ITB1, ZINC #### [facility] [address] [place] [address] #### B12, FOL, CMP, PREALB, ANDREZ, CBCD #### [facility] [address] [place] [address] Glucose [Mass/Vol] 81 mg/dL Normal 65-99 [facility] Comment on above: Performed By: #### V ITB1, ZINC #### [facility] [address] [place] [address] #### B12, FOL, CMP, PREALB, ANDREZ, CBCD #### [facility] [address] [place] [address] 33156 Potassium [Moles/Vol] 4.5 mmol/L Normal 3.4-5.1 [facility] Comment on above: Performed By: #### V ITB1, ZINC #### [facility] [address] [place] [address] #### B12, FOL, CMP, PREALB, ANDREZ, CBCD #### [facility] [address] [place] [address] 23780 Protein [Mass/Vol] 7.0 g/dL Normal 6.0-8.0 [facility] Comment on above: Performed By: #### V ITB1, ZINC #### [facility] [address] [place] [address] #### B12, FOL, CMP, PREALB, ANDREZ, CBCD #### [facility] [address] [place] [address] 66099 Sodium [Moles/Vol] 138 mmol/L Normal 136-145 [facility] Comment on above: Performed By: #### V ITB1, ZINC #### [facility] [address] [place] [address] #### B12, FOL, CMP, PREALB, ANDREZ, CBCD #### [facility] [address] [place] [address] 89082 Urea nitrogen [Mass/Vol] 7 mg/dL Low 9-[address] [facility] Comment on above: Performed By: #### V ITB1, ZINC #### [facility] [address] [place] [address] #### B12, FOL, CMP, PREALB, ANDREZ, CBCD #### [facility] [address] [place] [address] 54201 ESR (Sed Rate)on 08-13-2022 ESR (Bld) [Velocity] 20 mm/h Normal 0-[address] [facility] Comment on above: Performed By: #### V ITB1, ZINC #### [facility] [address] [place] [address] #### B12, FOL, CMP, PREALB, ANDREZ, CBCD #### [facility] [address] [place] [address] 20546 CBC with DIFFERENTIALon 07-03 Basophils (Bld) [#/Vol] 0.1 10*3/uL Normal 0.0-0.[address] [facility] Comment on above: Performed By: #### C MP, TSH, LIPPAN, HBA1C, CBCD, INS #### [facility] [address] [place] [address] 39109 Basophils/100 WBC (Bld) 0.7 % Normal 0.0-1.[address] [facility] Comment on above: Performed By: #### C MP, TSH, LIPPAN, HBA1C, CBCD, INS #### [facility] [address] [place] [address] 68485 Eosinophils (Bld) [#/Vol] 0.3 10*3/uL Normal 0.0-0.[address] [facility] Comment on above: Performed By: #### C MP, TSH, LIPPAN, HBA1C, CBCD, INS #### [facility] [address] [place] [address] 03078 Eosinophils/100 WBC (Bld) 4.3 % High 1.0-4.[address] [facility] Comment on above: Performed By: #### C MP, TSH, LIPPAN, HBA1C, CBCD, INS #### [facility] [address] [place] [address] 45684 Hematocrit (Bld) [Volume fraction] 43.7 % Normal 37.0-47.[address] [facility] Comment on above: Performed By: #### C MP, TSH, LIPPAN, HBA1C, CBCD, INS #### [facility] [address] [place] [address] 50483 Hemoglobin (Bld) [Mass/Vol] 13.9 g/dL Normal 12.0-16.[address] [facility] Comment on above: Performed By: #### C MP, TSH, LIPPAN, HBA1C, CBCD, INS #### [facility] [address] [place] [address] 85787 IG # 0.0 10*3/uL Normal 0.0-0.1 [facility] Comment on above: Performed By: #### C MP, TSH, LIPPAN, HBA1C, CBCD, INS #### [facility] [address] [place] [address] 07641 IG % 0.4 % Normal 0.0-1.[address] [facility] Comment on above: Performed By: #### C MP, TSH, LIPPAN, HBA1C, CBCD, INS #### [facility] [address] [place] [address] 20866 Lymphocytes (Bld) [#/Vol] 3.2 10*3/uL Normal 1.3-4.[address] [facility] Comment on above: Performed By: #### C MP, TSH, LIPPAN, HBA1C, CBCD, INS #### [facility] [address] [place] [address] 95572 Lymphocytes/100 WBC (Bld) 42.7 % High 27.0-41.[address] [facility] Comment on above: Performed By: #### C MP, TSH, LIPPAN, HBA1C, CBCD, INS #### [facility] [address] [place] [address] 88835 MCV (RBC) [Entitic vol] 90.3 fL Normal 81.0-99.[address] [facility] Comment on above: Performed By: #### C MP, TSH, LIPPAN, HBA1C, CBCD, INS #### [facility] [address] [place] [address] 57743 MEAN CORPUSCULAR HGB 28.7 pg Normal 27.0-31.[address] [facility] Comment on above: Performed By: #### C MP, TSH, LIPPAN, HBA1C, CBCD, INS #### [facility] [address] [place] [address] 33979 MEAN CORPUSCULAR HGB CONC 31.8 g/dl Low 33.0-37.[address] [facility] Comment on above: Performed By: #### C MP, TSH, LIPPAN, HBA1C, CBCD, INS #### [facility] [address] [place] [address] Monocytes (Bld) [#/Vol] 0.4 10*3/uL Normal 0.1-1.[address] [facility] Comment on above: Performed By: #### C MP, TSH, LIPPAN, HBA1C, CBCD, INS #### [facility] [address] [place] [address] 15283 Monocytes/100 WBC (Bld) 5.4 % Normal 3.0-9.[address] [facility] Comment on above: Performed By: #### C MP, TSH, LIPPAN, HBA1C, CBCD, INS #### [facility] [address] [place] [address] 75193 Neutrophils (Bld) [#/Vol] 3.4 10*3/uL Normal 2.3-7.[address] [facility] Comment on above: Performed By: #### C MP, TSH, LIPPAN, HBA1C, CBCD, INS #### [facility] [address] [place] [address] 84598 Neutrophils/100 WBC (Bld) 46.5 % Low 47.0-73.[address] [facility] Comment on above: Performed By: #### C MP, TSH, LIPPAN, HBA1C, CBCD, INS #### [facility] [address] [place] [address] 70766 NUCLEATED RED BLOOD CELL 0.0 10*3/uL Normal 0.0-0.[address] [facility] Comment on above: Performed By: #### C MP, TSH, LIPPAN, HBA1C, CBCD, INS #### [facility] [address] [place] [address] 61005 NUCLEATED RED BLOOD CELL 0.0 % Normal 0.0-0.[address] [facility] Comment on above: Performed By: #### C MP, TSH, LIPPAN, HBA1C, CBCD, INS #### [facility] [address] [place] [address] PLATELET COUNT AUTOMATED 309 10*3/uL Normal 130-[address] [facility] Comment on above: Performed By: #### C MP, TSH, LIPPAN, HBA1C, CBCD, INS #### [facility] [address] [place] [address] Platelet mean volume (Bld) [Entitic vol] 10.3 fL Normal 9.6-12.3 [facility] Comment on above: Performed By: #### C MP, TSH, LIPPAN, HBA1C, CBCD, INS #### [facility] [address] [place] [address] RBC (Bld) [#/Vol] 4.84 10*6/uL Normal 4.10-5.[address] [facility] Comment on above: Performed By: #### C MP, TSH, LIPPAN, HBA1C, CBCD, INS #### [facility] [address] [place] [address] RED CELL DISTRI WIDTH 13.5 % Normal 0-14.5 [facility] Comment on above: Performed By: #### C MP, TSH, LIPPAN, HBA1C, CBCD, INS #### [facility] [address] [place] [address] WBC (Bld) [#/Vol] 7.4 10*3/uL Normal 4.8-10.8 [facility] Comment on above: Performed By: #### C MP, TSH, LIPPAN, HBA1C, CBCD, INS #### [facility] [address] [place] [address] COMPREHENSIVE METABOLIC PANE Evan 07-31-2022 Albumin [Mass/Vol] 3.9 g/dL Normal 3.4-5.0 [facility] Comment on above: Performed By: #### V ITB1, ZINC #### [facility] [address] [place] [address] #### B12, FOL, CMP, PREALB, ANDREZ, CBCD #### [facility] [address] [place] [address] ALP [Catalytic activity/Vol] 60 U/L Normal 46-[address] [facility] Comment on above: Performed By: #### V ITB1, ZINC #### [facility] [address] [place] [address] #### B12, FOL, CMP, PREALB, ANDREZ, CBCD #### [facility] [address] [place] [address] 77685 ALT [Catalytic activity/Vol] 23 U/L Normal 10-[address] [facility] Comment on above: Performed By: #### V ITB1, ZINC #### [facility] [address] [place] [address] #### B12, FOL, CMP, PREALB, ANDREZ, CBCD #### [facility] [address] [place] [address] 94150 AST [Catalytic activity/Vol] 17 U/L Normal 0-[address] [facility] Comment on above: Performed By: #### V ITB1, ZINC #### [facility] [address] [place] [address] #### B12, FOL, CMP, PREALB, ANDREZ, CBCD #### [facility] [address] [place] [address] 74213 Bilirubin [Mass/Vol] 0.3 mg/dL Normal 0.3-1.[address] [facility] Comment on above: Performed By: #### V ITB1, ZINC #### [facility] [address] [place] [address] #### B12, FOL, CMP, PREALB, ANDREZ, CBCD #### [facility] [address] [place] [address] 70136 CALCIUM,TOTAL 9.6 md/dL Normal 8.7-10.4 [facility] Comment on above: Performed By: #### V ITB1, ZINC #### [facility] [address] [place] [address] #### B12, FOL, CMP, PREALB, ANDREZ, CBCD #### [facility] [address] [place] [address] Chloride [Moles/Vol] 102 mmol/L Normal 98-[address] [facility] Comment on above: Performed By: #### V ITB1, ZINC #### [facility] [address] [place] [address] #### B12, FOL, CMP, PREALB, ANDREZ, CBCD #### [facility] [address] [place] [address] CO2 [Moles/Vol] 27 mmol/L Normal 20-31 [facility] Comment on above: Performed By: #### V ITB1, ZINC #### [facility] [address] [place] [address] #### B12, FOL, CMP, PREALB, ANDREZ, CBCD #### [facility] [address] [place] [address] Creatinine [Mass/Vol] 0.58 mg/dL Normal 0.55-1.02 [facility] Comment on above: Performed By: #### V ITB1, ZINC #### [facility] [address] [place] [address] #### B12, FOL, CMP, PREALB, ANDREZ, CBCD #### [facility] [address] [place] [address] EST GLOM FILT > [address] [facility] Comment on above: Result Comment: Result [...] #### V ITB1, ZINC #### [facility] [address] [place] [address] #### B12, FOL, CMP, PREALB, ANDREZ, CBCD #### [facility] [address] [place] [address] 28081 ESTIMATED GLOM FILT RATE > [address] [facility] Comment on above: Performed By: #### V ITB1, ZINC #### [facility] [address] [place] [address] #### B12, FOL, CMP, PREALB, ANDREZ, CBCD #### [facility] [address] [place] [address] 66665 Glucose [Mass/Vol] 73 mg/dL Normal 65-99 [facility] Comment on above: Performed By: #### V ITB1, ZINC #### [facility] [address] [place] [address] #### B12, FOL, CMP, PREALB, ANDREZ, CBCD #### [facility] [address] [place] [address] 84814 Potassium [Moles/Vol] 4.2 mmol/L Normal 3.4-5.1 [facility] Comment on above: Performed By: #### V ITB1, ZINC #### [facility] [address] [place] [address] #### B12, FOL, CMP, PREALB, ANDREZ, CBCD #### [facility] [address] [place] [address] 68884 Protein [Mass/Vol] 7.2 g/dL Normal 6.0-8.0 [facility] Comment on above: Performed By: #### V ITB1, ZINC #### [facility] [address] [place] [address] #### B12, FOL, CMP, PREALB, ANDREZ, CBCD #### [facility] [address] [place] [address] 78266 Sodium [Moles/Vol] 137 mmol/L Normal 136-145 [facility] Comment on above: Performed By: #### V ITB1, ZINC #### [facility] [address] [place] [address] #### B12, FOL, CMP, PREALB, ANDREZ, CBCD #### [facility] [address] [place] [address] Urea nitrogen [Mass/Vol] 11 mg/dL Normal 9-[address] [facility] Comment on above: Performed By: #### V ITB1, ZINC #### [facility] [address] [place] [address] #### B12, FOL, CMP, PREALB, ANDREZ, CBCD #### [facility] [address] [place] [address] 27050 [id number] 07-31-2022 ESTIMATED AVERAGE GLUCOSE [address] [facility] Comment on above: Performed By: #### V ITB1, ZINC #### [facility] [address] [place] [address] #### B12, FOL, CMP, PREALB, ANDREZ, CBCD #### [facility] [address] [place] [address] 69934 HbA1c (Bld) [Mass fraction] 5.1 % Normal 4.8-5.[address] [facility] Comment on above: Result Comment: Standarization of method based on National Glycohemoglobin Standardization Program (NGSP). HEMOGLOBIN A1c(%) DEGREE of GLUCOSE CONTROL 5.7-6.4% Prediabetes range >6.4% Diagnosis of Diabetes <7% Glycemic control for adults with Diabetes Performed By: #### V ITB1, ZINC #### [facility] [address] [place] [address] #### B12, FOL, CMP, PREALB, ANDREZ, CBCD #### [facility] [address] [place] [address] INSULINon 07-31-2022 INSULIN 45.6 mU/L High 2.6-37.[address] [facility] Comment on above: Performed By: #### V ITB1, ZINC #### [facility] [address] [place] [address] #### B12, FOL, CMP, PREALB, ANDREZ, CBCD #### [facility] [address] [place] [address] LIPID PANEL CHOLESTEROL/HDLo n 07-31-2022 Cholesterol [Mass/Vol] 170 mg/dL Normal <200 [facility] Comment on above: Performed By: #### V ITB1, ZINC #### [facility] [address] [place] [address] #### B12, FOL, CMP, PREALB, ANDREZ, CBCD #### [facility] [address] [place] [address] Cholesterol in HDL [Mass/Vol] 31 mg/dL Low 40-[address] [facility] Comment on above: Performed By: #### V ITB1, ZINC #### [facility] [address] [place] [address] #### B12, FOL, CMP, PREALB, ANDREZ, CBCD #### [facility] [address] [place] [address] Cholesterol in LDL [Mass/Vol] 73 mg/dL Normal 9-[address] [facility] Comment on above: Performed By: #### V ITB1, ZINC #### [facility] [address] [place] [address] #### B12, FOL, CMP, PREALB, ANDREZ, CBCD #### [facility] [address] [place] [address] Cholesterol.total/Chol esterol in HDL [Mass ratio] 5.5 {ratio} Normal [facility] Comment on above: Performed By: #### V ITB1, ZINC #### [facility] [address] [place] [address] #### B12, FOL, CMP, PREALB, ANDREZ, CBCD #### [facility] [address] [place] [address] Triglyceride [Mass/Vol] 328 mg/dL High <[address] [facility] Comment on above: Result Comment: TRIGLYCERIDE RISK ASSESSMENT: 150-199 mg/dl BORDERLINE HIGH >200 mg//dl HIGH . Performed By: #### V ITB1, ZINC #### [facility] [address] [place] [address] #### B12, FOL, CMP, PREALB, ANDREZ, CBCD #### [facility] [address] [place] [address] VLDL CHOLESTEROL 66 mg/dL High 6-40 [facility] Comment on above: Performed By: #### V ITB1, ZINC #### [facility] [address] [place] [address] #### B12, FOL, CMP, PREALB, ANDREZ, CBCD #### [facility] [address] [place] [address] THYROID STIM HORMONE (HS)on 07-31-2022 THYROID STIM HORMONE (HS) 2.569 uIU/ml Normal 0.550-4.[address] [facility] Comment on above: Performed By: #### V ITB1, ZINC #### [facility] [address] [place] [address] #### B12, FOL, CMP, PREALB, ANDREZ, CBCD #### [facility] [address] [place] [address] NICOTINE METABOLITE, QUANTon 07-19-2022 COTININE <1.0 Normal . [facility] Comment on above: Order Comment: FAX T O [phone] Result Comment: This test was developed and its performance characteristics determined by [facility]. It has not been cleared or approved by the Food and Drug Administration. Cotinine levels greater than 20.0 are consistent with the use of tobacco or tobacco cessation products. Performed at: [facility], [place], [place] [id number] [employer] Truck Driver: Estuardo Michelle MD, Phone: [phone] Performed By: #### N ICOTINE #### [facility] [address] [place] [address] NICOTINE <1.0 Normal . [facility] Comment on above: Order Comment: FAX T O [phone] Result Comment: This test was developed and its performance characteristics determined by [facility]. It has not been cleared or approved by the Food and Drug Administration. Nicotine levels greater than 2.0 are consistent with the use of tobacco or tobacco cessation products. Performed By: #### N ICOTINE #### [facility] [address] [place] [address] HIPS BILATERAL (2V)on 2021 [facility] Name: BATOOL KINGSLEY Phys: LASHAWN WELLS NP : 2000 Age: 22 Sex: F Acct: [id number] Loc: RAD Exam Date: 06/14/2022 Status: REG CLI Radiology No: [id number] Unit No: [id number] EXAM# TYPE/EXAM RESULT [id number] RAD/HIPS BILATERAL (2V) SEE REPORT INDICATION: Sharp [...] NP Technologist: Eugene Wagner Transcribed Date/Time: 06/14/2022 (8955) Computer Artist: OSCAR Printed Date/Time: 06/14/2022 (5470) PAGE 1 Signed Report Normal [facility] Vitamin B1 (Thiamine), Whole Bloodon 05-09-2022 Vitamin B1, Whole Blood 116 nmol/L Normal 70-180 [facility] Comment on above: Result Comment: INTE [...] developed and its performance characteristics determined by [facility]. It has not been cleared or approved by the [place] Food and Drug Administration. This test was performed in a CLIA certified laboratory and is intended for clinical purposes. Performed By: [facility] [address] [place] [address] Tie Presser: Francisco Javier Zhang MD, PhD Performed By: #### [id number] ####[facility] Reference [address] [place] [address] Zinc, Serumon 05-07-2022 Zinc, Serum 75.6 ug/dL Normal 60.0-120.0 [facility] Comment on above: Result Comment: INTE [...] developed and its performance characteristics determined by [facility]. It has not been cleared or approved by the US Food and Drug Administration. This test was performed in a CLIA certified laboratory and is intended for clinical purposes. Performed By: [facility] [address] [place], [place] [id number] Tie Presser: Francisco Javier Zhang MD, PhD Performed By: #### 2 0097 #### [facility] Reference Lab [address] [place], [place] [id number] [facility]04 Glucose [Mass/Vol] 96 mg/dL [facility] [employer] Work Phone: QC OK? [facility] Work Phone: CBCon 05-04-2022 Hematocrit (Bld) [Volume fraction] 40.4 % 34.0 - 48.0 % [facility] Hemoglobin (Bld) [Mass/Vol] 13.2 g/dL 11.5 - 15.5 g/dL [facility] MCH (RBC) [Entitic mass] 29.9 pg 26.0 - 35.0 pg [facility] MCHC (RBC) [Mass/Vol] 32.7 % 32.0 - 34.5 % [facility] MCV (RBC) [Entitic vol] 91.6 fL 80.0 - 99.9 fL [facility] Platelet distribution width (Bld) [Ratio] 13.0 fL 11.5 - 15.0 fL [facility] Platelet mean volume (Bld) [Entitic vol] 9.8 fL 7.0 - 12.0 fL [facility] Platelets (Bld) [#/Vol] 313 10*3/uL [facility] RBC (Bld) [#/Vol] 4.41 10*6/uL [facility] WBC (Bld) [#/Vol] 9.2 10*3/uL [facility] CBC With Platelet No Differe ntialon 05-04-2022 Hematocrit (Bld) [Volume fraction] 40.4 % Normal 34.0-48.0 [facility] Hemoglobin (Bld) [Mass/Vol] 13.2 g/dL Normal 11.5-15.5 [facility] MCH (RBC) [Entitic mass] 29.9 pg Normal 26.0-35.0 [facility] MCHC 32.7 % Normal 32.0-34.5 [facility] MCV (RBC) [Entitic vol] 91.6 fL Normal 80.0-99.9 [facility] Platelet Count 313 E9/L Normal 130-450 [facility] Platelet mean volume (Bld) [Entitic vol] 9.8 fL Normal 7.0-12.0 [facility] RBC 4.41 E12/L Normal 3.50-5.50 [facility] RDW 13.0 fL Normal 11.5-15.0 [facility] WBC 9.2 E9/L Normal 4.5-11.5 [facility] Cholesterolon 05-04-2022 Cholesterol [Mass/Vol] 162 mg/dL Normal 0-199 [facility] Cholesterol, Totalon 022 Cholesterol [Mass/Vol] 162 mg/dL 0 - 1 99 mg/dL [facility] Comprehensive Metabolic Pane evan 05-04-2022 Albumin [Mass/Vol] 4.1 g/dL Normal 3.5-5.2 [facility] ALP [Catalytic activity/Vol] 64 U/L Normal 35-104 [facility] ALT [Catalytic activity/Vol] 22 U/L Normal 0-32 [facility] Anion gap [Moles/Vol] 10 mmol/L Normal 7-16 [facility] AST [Catalytic activity/Vol] 13 U/L Normal 0-31 [facility] Bilirubin [Mass/Vol] 0.2 mg/dL Normal 0.0-1.2 [facility] Calcium [Mass/Vol] 8.9 mg/dL Normal 8.6-10.2 [facility] Chloride [Moles/Vol] 102 mmol/L Normal 98-107 [facility] CO2 [Moles/Vol] 25 mmol/L Normal 22-29 [facility] Creatinine [Mass/Vol] 0.7 mg/dL Normal 0.5-1.0 [facility] GFR Calculated >60 Normal >=60 [facility] Comment on above: Result Comment: Dion atric [...] Glucose [Mass/Vol] 96 mg/dL Normal 74-99 [facility] Potassium [Moles/Vol] 4.5 mmol/L Normal 3.5-5.0 [facility] Protein [Mass/Vol] 6.9 g/dL Normal 6.4-8.3 [facility] Sodium [Moles/Vol] 137 mmol/L Normal 132-146 [facility] Urea nitrogen [Mass/Vol] 17 mg/dL Normal 6-20 [facility] Albumin [Mass/Vol] 4.1 g/dL 3.5 - 5.2 g/dL [facility] ALP (Bld) [Catalytic activity/Vol] 64 U/L 35 - 104 U/L [facility] ALT [Catalytic activity/Vol] 22 U/L 0 - 32 U/L [facility] Anion gap [Moles/Vol] 10 mmol/L 7 - 16 mmol/L [facility] AST [Catalytic activity/Vol] 13 U/L 0 - 31 U/L [facility] Bilirubin [Mass/Vol] 0.2 mg/dL 0.0 - 1 .2 mg/dL [facility] Calcium [Mass/Vol] 8.9 mg/dL 8.6 - 10. 2 mg/dL [facility] Chloride [Moles/Vol] 102 mmol/L 98 - 10 7 mmol/L [facility] CO2 [Moles/Vol] 25 mmol/L 22 - 29 mmol/L [facility] Creatinine [Mass/Vol] 0.7 mg/dL 0.5 - 1.0 mg/dL [facility] GFR/1.73 sq M.predicted MDRD (S/P/Bld) [Vol rate/Area] mL/min/1.73 60 - PINF mL/min/1.73 [facility] Comment on above: Pediatric calculator [...] [Mass/Vol] 96 mg/dL 74 - 99 mg/dL [facility] Potassium [Moles/Vol] 4.5 mmol/L 3.5 - 5.0 mmol/L [facility] Protein [Mass/Vol] 6.9 g/dL 6.4 - 8.3 g/dL [facility] Sodium [Moles/Vol] 137 mmol/L 132 - 146 mmol/L [facility] [employer] Urea nitrogen (BldV) [Mass/Vol] 17 mg/dL 6 - 20 mg/dL [facility] Ferritinon 05-04-2022 Ferritin [Mass/Vol] 69 ng/mL Normal [facility] Comment on above: Result Comment: FERR ITIN Reference Ranges: Adult Males 20 - 60 years: 30 - 400 ng/mL Adult females 17 - 60 years: 13 - 150 ng/mL Adults greater than 60 years: no established reference range Pediatrics: no established reference range Folateon 05-04-2022 Folate 8.5 ng/mL Normal 4.8-24.2 [facility] Hgb A1Con 05-04-2022 HbA1c (Bld) [Mass fraction] 5.7 % High 4.0-5.6 [facility] METER GLUCOSEon 05-04-2022 Glucose [Mass/Vol] 93 mg/dL Normal 74-99 [facility] Glucose [Mass/Vol] 96 mg/dL Normal 74-99 [facility] No Panel Informationon 05-04 [facility] Work Phone: POC Urine Qualon 1 07-04-2021 Beta HCG ( test) Ql (U) Negative Negative [employer] Work Phone: Lot Number [id number] [employer] Phone: Negative QC Pass/Fail Pass [facility] Phone: Positive QC Pass/Fail Pass [facility] Phone: [employer] Phone: POCT Glucoseon 05-04-2022 Glucose [Mass/Vol] 93 mg/dL 74 - 99 mg/dL [facility] Glucose [Mass/Vol] 96 mg/dL 74 - 99 mg/dL [facility] Prealbuminon 05-04-2022 Prealbumin [Mass/Vol] 24 mg/dL Normal 20-40 [facility] Surgical Specimenon 05-04-20 Surgical Specimen [facility] [address] [facility] [address] [place] [place] [address] FINAL SURGICAL PATHOLOGY REPORT NAME: BATOOL KINGSLEY Date of 05/04/2022 Collection: Medical Record [id number] Date of 05/04/2022 Number: Receipt: Age: 22 Y Sex: F Date 05/11/2022 08:29 Reported: Date Of : 2000 Financial [id number] Admitting DERIC FLORENCE Number: Physician: Patient DIS [...] submitted. Block label: A1. (JORGE L:YAYA) CODES: [id number]; Department of Pathology Page 1 of 1 Normal [facility] Triglycerideon 05-04-2022 Interpretation and review of laboratory results Abnormal [facility] Triglyceride [Mass/Vol] 274 mg/dL High 0 - 149 mg/dL [facility] Triglycerideson 05-04-2022 Triglyceride [Mass/Vol] 274 mg/dL High 0-149 [facility] Vitamin B12on 05-04-2022 Cobalamin (Vitamin B12) [Mass/Vol] 226 pg/mL Normal 211-946 [facility] US GALLBLADDER RUQon 022 US GALLBLADDER [...] Rohit Dowling MD 05/02/22 Final result Normal [facility] Comment on above: Order Comment: Reaso n for exam:->Indigestion What reading provider will be dictating this exam?->CRC CBC Auto DifferentialOrdered By: Win Narvaez on 03-27-2021 Basophils (Bld) [#/Vol] 0.05 10*3/uL [facility] Phone: Basophils/100 WBC (Bld) 0.5 % 0.0 - 2.0 % [facility] Phone: Eosinophils Absolute 0.37 [facility] Phone: Eosinophils/100 WBC (Bld) 3.8 % 0.0 - 6.0 % [facility] Phone: Hematocrit (Bld) [Volume fraction] 39.5 % 34.0 - 48.0 % [facility] Phone: Hemoglobin.gastrointes tinal spec 1 Ql (Stl) 12.6 g/dL 11.5 - 15.5 g/dL [facility] Phone: Immature Granulocytes # 0.18 E9/L [facility] Phone: Immature granulocytes/100 WBC (Bld) 1.8 % 0.0 - 5.0 % [facility] Phone: Interpretation and review of laboratory results Abnormal [facility] Phone: Lymphocytes Absolute 3.73 [facility] Phone: Lymphocytes/100 WBC (Bld) 38.2 % 20.0 - 42.0 % [facility] Phone: MCH (RBC) [Entitic mass] 28.9 pg 26.0 - 35.0 pg [facility] Phone: MCHC (RBC) [Mass/Vol] 31.9 % Low 32.0 - 34.5 % [facility] Phone: MCV (RBC) [Entitic vol] 90.6 fL 80.0 - 99.9 fL [facility] Phone: Monocytes Absolute 0.46 [facility] Phone: Monocytes/100 WBC (Bld) 4.7 % 2.0 - 12.0 % [facility] Phone: Neutrophils Absolute 4.97 [facility] Phone: Neutrophils/100 WBC (Bld) 51.0 % 43.0 - 80.0 % [facility] Phone: Platelet distribution width (Bld) [Ratio] 13.3 fL 11.5 - 15.0 fL [facility] Phone: Platelet mean volume (Bld) [Entitic vol] 9.7 fL 7.0 - 12.0 fL [facility] Phone: Platelets (Bld) [#/Vol] 281 10*3/uL [facility] Phone: RBC (Bld) [#/Vol] 4.36 10*6/uL [facility] Phone: WBC (Bld) [#/Vol] 9.8 10*3/uL [facility] Phone: Comprehensive Metabolic Pane l w/ Reflex to MGOrdered By: Win Narvaez on 03-27-2021 Albumin [Mass/Vol] 4.2 g/dL 3.5 - 5.2 g/dL [facility] Phone: ALP (Bld) [Catalytic activity/Vol] 64 U/L 35 - 104 U/L [facility] Phone: ALT [Catalytic activity/Vol] 19 U/L 0 - 32 U/L [facility] Phone: Anion gap [Moles/Vol] 12 mmol/L 7 - 16 mmol/L [facility] Phone: AST [Catalytic activity/Vol] 14 U/L 0 - 31 U/L [facility] Phone: Bilirubin [Mass/Vol] mg/dL 0.0 - 1 .2 mg/dL [facility] Phone: Calcium [Mass/Vol] 9.1 mg/dL 8.6 - 10. 2 mg/dL [facility] Phone: Chloride [Moles/Vol] 103 mmol/L 98 - 10 7 mmol/L [facility] Phone: CO2 [Moles/Vol] 22 mmol/L 22 - 29 mmol/L [facility] Phone: Creatinine [Mass/Vol] 0.5 mg/dL 0.5 - 1.0 mg/dL [employer] Phone: Free PSA/Total PSA [Mass fraction] 7.1 g/dL 6.4 - 8.3 g/dL [facility] Phone: GFR >60 [facility] Phone: GFR Non- >60 >=60 mL/min/1.73 [facility] Phone: Comment on above: Chronic Kidney Disea se: less than 60 ml/min/1.73 sq.m. Kidney Failure: less than 15 ml/min/1.73 sq.m. Results valid for patients 18 years and older. Glucose [Mass/Vol] 107 mg/dL High 74 - 99 mg/dL [facility] Phone: Interpretation and review of laboratory results Abnormal [facility] Phone: Potassium [Moles/Vol] 4.2 mmol/L 3.5 - 5.0 mmol/L [facility] Phone: Sodium [Moles/Vol] 137 mmol/L 132 - 146 mmol/L [facility] Phone: Urea nitrogen (BldV) [Mass/Vol] 9 mg/dL 6 - 20 mg/dL [facility] Phone: [employer] Phone: Microscopic UrinalysisOrdere d By: Win Narvaez on 03-27-2021 Bacteria, UA FEW Abnormal None Seen /HPF [facility] Phone: Epithelial Cells, UA FEW /HPF [facility] Phone: Interpretation and review of laboratory results Abnormal [facility] Phone: RBC, UA 2-5 [facility] Phone: WBC, UA 0-1 [facility] Phone: [facility] Phone: No Panel InformationOrdered By: Win Narvaez on 03-27-2021 [facility] Phone: POC Urine QualOrde red By: Win Narvaez on 03-27-2021 Beta HCG ( test) Ql (U) Negative Negative [facility] Phone: Beta HCG ( test) Ql (U) [id number] [facility] Phone: Negative QC Pass/Fail Pass [employer] Phone: Positive QC Pass/Fail [employer] Phone: US PELVIS COMPLETEOrdered By : Tein Oneal on 03-27-2021 The bilateral ovaries are mildly enlarged, right greater than left. Otherwise, unremarkable pelvic ultrasound. [facility] Phone: EXAMINATION: PELVIC ULTRASOUND 03/27/2021 TECHNIQUE: Multiple [...] Free Fluid: No evidence of free fluid. [facility] Phone: Antonio, Mhy Incoming Radiant Results From [employer] - 03/27/2021 3:01 PM EDT EXAMINATION: PELVIC [...] greater than left. Otherwise, unremarkable pelvic ultrasound. [facility] [employer] Work Phone: [facility] Work Phone: UrinalysisOrdered By: Win Narvaez on 03-27-2021 Bilirubin Urine Negative Negative [facility] Work Phone: Blood, Urine LARGE Abnormal Negative [facility] Work Phone: Clarity, UA Clear Clear [facility] Work Phone: Color, UA Yellow Straw/Yellow [facility] Work Phone: Glucose, Ur Negative Negative mg/dL [facility] Work Phone: Interpretation and review of laboratory results Abnormal [facility] Work Phone: Ketones Ql (U) Negative Negative mg/dL [facility] Work Phone: Leukocyte esterase Test strip Ql (U) Negative Negative [facility] Work Phone: Nitrite, Urine Negative Negative [facility] Work Phone: pH, UA 5.0 [facility] Work Phone: Protein, UA TRACE Negative mg/dL [facility] Work Phone: Specific [place], UA >=1.030 [facility] Work Phone: Urobilinogen, Urine 0.2 <2.0 E.U./dL [facility] Work Phone: [facility] Work Phone: NOSE/THROAT CULTUREon 2020 NOSE/THROAT CULTURE RUN DATE: 07/10/20 Laboratory LIVE PAGE 1 RUN TIME: 951 Specimen Inquiry RUN USER: INTERFACE [facility] Department of Laboratories [address] [place], [place] [id number] PATIENT: BATOOL KINGSLEY LOC: BHARGAVIEUGENIEGILMER U #: [id number] HOME PHONE: DAVID/SX: ROOM: RE07/08/[address]: Ameena Corcoran APRN.EMERGENCY DEPT TECH : 99 BED: DIS: STATUS: REG REF LAB O/S: Specimen: [id number] Collected: 07/08/20 Status: COMP Req#: [id number] Received: 07/08/20 Source: THROAT Sp Desc: Subm Dr: Ameena Corcoran APRN.CNP Ordered: NOSE/THRT CULT Procedure Result Verified > NOSE/THROAT CULTURE Final 07/10/20 HEAVY GROWTH OF NORMAL ARIN END OF REPORT Normal [facility] Comment on above: Performed By: #### C L[address] #### [facility] [place] [id number] Vital Signs Date Time Vital Sign Value Performing Clinician Facility 05-25-2024 14:30-0500 Body weight 123.74 kg [employer] Work Phone: [facility] 05-25-2024 14:30-0500 Diastolic blood pressure 70 mm[Hg] [facility] [facility] [employer] Work Phone: [facility] 05-25-2024 14:30-0500 Systolic blood pressure 120 mm[Hg] [facility] [facility] [employer] Work Phone: [facility] 04-21-2024 15:02-0400 Body weight 118.84 kg [employer] [facility] [employer] Work Phone: [facility] 04-21-2024 15:02-0400 Diastolic blood pressure 74 mm[Hg] [facility] [facility] [employer] Work Phone: [facility] 04-21-2024 15:02-0400 Systolic blood pressure 116 mm[Hg] [employer] [facility] [employer] Work Phone: [facility] 04-07-2024 14:38-0400 Body weight 118.3 kg Kierra HUNT Work Phone: [facility] 04-07-2024 14:38-0400 Diastolic blood pressure 70 mm[Hg] Kierra HUNT Work Phone: [facility] 04-07-2024 14:38-0400 Systolic blood pressure 120 mm[Hg] Kierra HUNT Work Phone: [facility] 10-30-2022 08:56-0400 SaO2% (BldA) [Mass fraction] 97 % Deric Florence MD [facility] 10-30-2022 05:00-0400 Body temperature 97.9 [degF] Deric Florence MD Work Phone: [facility] 10-30-2022 05:00-0400 Diastolic blood pressure 74 mm[Hg] Deric Florence MD Work Phone: [facility] 10-30-2022 05:00-0400 Heart rate 74 /min Deric Florence MD Work Phone: [email or web address] 10-30-2022 05:00-0400 Respiratory rate 18 /min Deric Florence MD Work Phone: [facility] 10-30-2022 05:00-0400 Systolic blood pressure 126 mm[Hg] Deric Florence MD Work Phone: [facility] [facility] 10-29-2022 06:50-0400 Body height 170.2 cm Deric Florence MD Work Phone: [facility] [employer] 10-29-2022 06:50-0400 Body mass index (BMI) [Ratio] 55.6 kg/m2 Deric Florence MD Work Phone: [facility] [employer] 10-29-2022 06:50-0400 Body weight 161.03 kg Deric Florence MD Work Phone: [email or web address] 10-24-2022 12:17-0400 Body height 170.2 cm Sjwz 2 [employer] 10-24-2022 12:17-0400 Body mass index (BMI) [Ratio] 55.44 kg/m2 Sjwz 2 [facility] [employer] 10-24-2022 12:17-0400 Body temperature 98.01 [degF] Sjwz 2 [employer] 10-24-2022 12:17-0400 Body weight 160.57 kg Sjwz 2 [facility] [employer] 10-24-2022 12:17-0400 Diastolic blood pressure 62 mm[Hg] Sjwz 2 [facility] [employer] 10-24-2022 12:17-0400 Heart rate 77 /min Sjwz 2 [facility] [employer] 10-24-2022 12:17-0400 Respiratory rate 16 /min Sjwz 2 [facility] [employer]AC[employer] 10-24-2022 12:17-0400 SaO2% (BldA) [Mass fraction] 95 % Sjwz 2 [facility] [employer] 10-24-2022 12:17-0400 Systolic blood pressure 117 mm[Hg] Sjwz 2 [facility] [employer] 05-04-2022 08:55-0400 Body temperature 98.29 [degF] Deric Florence MD Work Phone: [email or web address] 05-04-2022 08:55-0400 Diastolic blood pressure 68 mm[Hg] Deric Florence MD Work Phone: [email or web address] 05-04-2022 08:55-0400 Heart rate 83 /min Deric Florence MD Work Phone: [email or web address] 05-04-2022 08:55-0400 Respiratory rate 16 /min Deric Florence MD Work Phone: [email or web address] 05-04-2022 08:55-0400 SaO2% (BldA) [Mass fraction] 92 % Deric Florence MD Work Phone: [email or web address] 05-04-2022 08:55-0400 Systolic blood pressure 128 mm[Hg] Deric Florence MD Work Phone: [email or web address] 05-04-2022 07:06-0400 Body height 170.2 cm Deric Florence MD Work Phone: [email or web address] 05-04-2022 07:06-0400 Body mass index (BMI) [Ratio] 61.21 kg/m2 Deric Florence MD Work Phone: [email or web address] 05-04-2022 07:06-0400 Body weight 177.27 kg Deric Florence MD Work Phone: [email or web address] 03-27-2021 20:08-0400 Heart rate 95 /min Tien Oneal DO Work Phone: [employer] Work Phone: 03-27-2021 13:47-0400 Body height 170.2 cm Tien Jm Zecco Work Phone: [employer] Work Phone: 03-27-2021 13:47-0400 Body mass index (BMI) [Ratio] 54.82 kg/m2 Tien Oneal Zecco Work Phone: [employer] Work Phone: 03-27-2021 13:47-0400 Body temperature 97.11 [degF] Tien Oneal DO Work Phone: [employer] Work Phone: 03-27-2021 13:47-0400 Body weight 158.76 kg Tien Oneal DO Work Phone: [employer] Work Phone: 03-27-2021 13:47-0400 Diastolic blood pressure 80 mm[Hg] Tien Oneal DO Work Phone: [employer] Work Phone: 03-27-2021 13:47-0400 Respiratory rate 16 /min Tien Oneal Zecco Work Phone: [employer] Work Phone: 03-27-2021 13:47-0400 SaO2% (BldA) [Mass fraction] 98 % Tien Oneal DO Work Phone: [employer] Phone: 03-27-2021 13:47-0400 Systolic blood pressure 173 mm[Hg] Tien Oneal DO Work Phone: [employer] Phone: Encounters Encounter Date Encounter Type Care Provider Facility Start: 05-25-2024 End: 05-25-2024 Bamboo flowsheet Bryan Manisha DO Work Phone: [facility] Start: 05-25-2024 End: 05-25-2024 Bamboo flowsheet Bryan Manisha DO Work Phone: [facility] Start: 05-25-2024 End: 05-25-2024 Office outpatient visit 15 minutes Bryan Manisha DO Work Phone: [facility] Comment on above: 34 weeks gestation o f ; Third trimester ; Insomnia, unspecified type; History of gastric bypass; Gestational diabetes mellitus (GDM), antepartum, gestational diabetes method of control unspecified Start: 05-25-2024 End: 05-25-2024 ambulatory BRYAN MANISHA Not Available Start: 05-06-2024 End: 05-06-2024 Office outpatient visit 15 minutes Kierra HUNT Work Phone: [facility] Comment on above: Third trimester preg agatha; 31 weeks gestation of ; Anxiety, generalized (CMS/HCC); Sinusitis, unspecified chronicity, unspecified location Start: 05-06-2024 End: 05-06-2024 ambulatory KIERRA RIVAS Not Available Start: 05-06-2024 End: 05-06-2024 Bamboo flowsheet Kierra HUNT Work Phone: [facility] Start: 05-06-2024 End: 05-06-2024 Bamboo flowsheet Kierra HUNT Work Phone: [facility] Start: 04-21-2024 End: 04-21-2024 Office outpatient visit 15 minutes Bryan Manisha DO Work Phone: [facility] Comment on above: Third trimester preg agatha; 29 weeks gestation of ; Anemia during in third trimester; Elevated glucose tolerance test; Abnormal thyroid stimulating hormone (TSH) level Start: 04-21-2024 End: 04-21-2024 ambulatory BRYAN MANISHA Not Available Start: 04-21-2024 End: 04-21-2024 Bamboo flowsheet Bryan Manisha DO Work Phone: [facility] Start: 04-21-2024 End: 04-21-2024 Bamboo flowsheet Bryan Manisha DO Work Phone: [facility] Start: 04-21-2024 End: 04-21-2024 Clinisync Result Encounter Bryan Manisha DO Work Phone: [facility] External Department Unsolicited Start: 04-07-2024 End: 04-07-2024 Office outpatient visit 15 minutes Kierra HUNT Work Phone: [facility] Comment on above: 27 weeks gestation o f ; Second trimester ; Gestational diabetes mellitus (GDM), antepartum, gestational diabetes method of control unspecified; Anemia affecting in second trimester Start: 04-07-2024 End: 04-07-2024 ambulatory KIERRA RIVAS Not Available Start: 04-07-2024 End: 04-07-2024 Bamboo flowsheet Kierra HUNT Work Phone: [facility] Start: 04-07-2024 End: 04-07-2024 Bamboo flowsheet Kierra HUNT Work Phone: [facility] Start: 03-17-2024 End: 03-17-2024 [facility] Start: 03-09-2024 End: 03-09-2024 ambulatory BRYAN MANISHA Not Available Start: 02-17-2024 End: 02-17-2024 ambulatory BRYAN R MANISHA [facility] Start: 02-10-2024 End: 02-10-2024 ambulatory BRYAN MANISHA Not Available Start: 01-07-2024 End: 01-07-2024 ambulatory BRYAN MANISHA Not Available Start: 12-12-2023 End: 12-12-2023 ambulatory BRYAN MANISHA Not Available Start: 11-10-2023 End: 11-10-2023 Emergency department patient visit NO PCP NO PCP [facility] Start: 08-14-2023 End: 08-14-2023 Emergency department patient visit TRAVIS VALLEJO [facility] Start: 12-14-2022 ambulatory [facility] Facility:[facility] Start: 12-03-2022 ambulatory [facility] Facility:[facility] Start: 11-06-2022 ambulatory [facility] Facility:[facility] Start: 10-29-2022 End: 10-30-2022 Evaluation and management of inpatient [facility] Start: 10-29-2022 End: 10-30-2022 Evaluation and management of inpatient Deric Florence MD Work Phone: [facility] 3 MED SURG Comment on above: Post-operative state (Primary Dx); Morbid obesity (HCC) Start: 10-24-2022 End: 10-25-2022 ambulatory [facility] Start: 10-24-2022 Encounter for other preprocedural examination [facility] Start: 10-24-2022 End: 10-24-2022 [facility] Start: 10-24-2022 End: 10-24-2022 Subsequent hospital visit by physician Hans Pat Room 2 [facility] PRE ADMIT TESTING Comment on above: Preop testing (Prima ry Dx); Malnutrition following gastrointestinal surgery Start: 10-04-2022 ambulatory [facility] Facility:[facility] Start: 08-13-2022 ambulatory [facility] Facility:[facility] Start: 07-31-2022 ambulatory [facility] Facility:[facility] Start: 07-13-2022 ambulatory [facility] Facility:[facility] Start: 06-14-2022 ambulatory KAELA EILEEN Facility:[facility] Start: 05-04-2022 End: 05-04-2022 ambulatory KAELA ARELLANO [facility] Start: 05-04-2022 End: 05-04-2022 Subsequent hospital visit by physician Deric Florence MD Work Phone: [facility] ENDOSCOPY Comment on above: Morbid obesity due t o excess calories (HCC); Gastroesophageal reflux disease Start: 05-02-2022 End: 05-05-2022 ambulatory DERIC FLORENCE [facility] Start: 03-27-2021 End: 03-27-2021 Emergency department patient visit Tein Judd Patriciarhonda DO Work Phone: [facility] Comment on above: DUB (dysfunctional [...] Basic metabolic panel calcium total Yang Hsu EYELET OPERATOR - EMERGENCY DEPT TECH Work Phone: Start: 10-30-2022 Lipid panel Yang Girish barlow EYELET OPERATOR - EMERGENCY DEPT TECH Work Phone: Start: 10-30-2022 Gluc bld gluc [...] Start: 10-29-2022 Hemoglobin glycosylated a1c Yang Hsu EYELET OPERATOR - EMERGENCY DEPT TECH Work Phone: Start: 10-29-2022 Gluc bld gluc mntr d ev cleared fda spec home use Unknown Provider Result Start: 05-01-2023 ADMIT TO INPATIENT KAELA EILEEN Start: 10-29-2022 Level iv surg pathol ogy gross&microscopic exam KAELA EILEEN Start: 10-29-2022 Gluc bld gluc mntr d ev cleared fda spec home use KAELA EILEEN Start: 10-29-2022 IP CONSULT TO IV TEAM S ISABELL SOTOSE Start: 10-29-2022 FULL CODE KAELA EILEEN Start: [...] PM EST Routine [facility] [address] [place] [id number] Bryan Dyer, DO [address] [place] [address] [facility] Start: 05-25-2024 End: 05-25-2024 [...] EST Ancillary Procedure [facility] [address] [facility] [place] [phone] [facility] Start: 04-21-2024 End: 04-21-2024 Patient encounter procedure 04/21/2024 2:30 PM EDT Routine [facility] [address] [facility] [place] [phone] Bryan Dyer DO [address] [place] [address] Arrived [facility] Comment on above: Arrived Start: 04-21-2024 End: 04-21-2025 US for US OB SCAN FOR GROWTH Imaging Routine Elevated glucose tolerance test Abnormal thyroid stimulating hormone (TSH) level Expected: 04/21/2024 (Approximate), Expires: 04/21/2025 [facility] Comment on above: Expected: 04/21/2024 (Approximate), Expi res: 04/21/2025 Start: 04-07-2024 End: 04-07-2024 Patient encounter procedure 04/07/2024 2:40 PM EDT Routine [facility] [address] [place] [phone] Kierra Rivas PA [address] [place] [address] Arrived [facility] Comment on above: Arrived Start: 04-07-2024 End: 04-07-2025 US for US OB SCAN FOR GROWTH Imaging Routine Gestational diabetes mellitus (GDM), antepartum, gestational diabetes method of control unspecified Anemia affecting in second trimester Expected: 04/07/2024 (Approximate), Expires: 04/07/2025 [facility] Work Phone: Comment on above: Expected: 04/07/2024 (Approximate), Expi res: 04/07/2025 Start: 10-31-2023 GFR test (Diabetes, CKD 3-4, OR last GFR 15-59) GFR test (Diabetes, CKD 3-4, OR last GFR 15-59) [facility] Start: 10-31-2023 Lipid panel Lipids [facility] Start: 10-30-2023 Hemoglobin A1c measurement A1C test (Diabetic or Prediabetic) [facility] Start: 10-25-2023 GFR test (Diabetes, CKD 3-4, OR last GFR 15-59) GFR test (Diabetes, CKD 3-4, OR last GFR 15-59) [facility] Start: 05-04-2023 Hemoglobin A1c measurement A1C test (Diabetic or Prediabetic) [facility] Start: 05-04-2023 Lipid panel Lipids [facility] Start: 01-29-2023 Influenza vaccination Flu vaccine (Season Ended) [facility] Start: 11-14-2022 End: 11-14-2022 Patient encounter procedure 11/14/2022 Office Visit Bariatrics Deric Florence MD [address] [place] [address] [facility] [place] Surg Weight Start: 10-29-2022 End: 10-29-2022 Admission to same day surgery center 10/29/2022 Surgery IP Unit Deric Florence MD [address] [place] [address] GASTRIC BYPASS NUNO-EN-Y LAPAROSCOPICNEEDS IV TEAM [facility] Comment on above: GASTRIC BYPASS NUNO-EN-Y LAPAROSCOPICN EEDS IV TEAM Start: 10-29-2022 End: 10-29-2022 Laps gstr rstcv px w/byp nuno-en-y limb <150 cm GASTRIC BYPASS NUNO-EN-Y LAPAROSCOPIC Morbid obesity (HCC) 10/29/2022 9:00 AM EDT [facility] Start: 10-29-2022 Subsequent hospital visit by physician 10/29/2022 Hospital Encounter IP Unit Deric Florence MD [address] [place] [address] [facility] Start: 05-11-2022 End: 05-11-2022 Patient encounter procedure [facility] [place] [facility] Weight Start: 05-04-2022 End: 05-04-2022 Egd transoral biopsy single/multiple EGD ESOPHAGOGASTRODUODENOSCOPY Gastroesophageal reflux disease 05/04/2022 8:18 AM EDT [facility] Start: 01-29-2022 Influenza vaccination Flu vaccine (#1) [facility] [employer] Start: 03-01-2021 Influenza vaccination Flu vaccine (#1) [facility] [employer] Work Phone: Start: 01-22-2020 Screening for malignant neoplasm of cervix Pap smear [facility] [employer] Start: 09-23-2019 Hepatitis B vaccine (3 of 3 - Risk 3-dose series) Hepatitis B vaccine (3 of 3 - Risk 3-dose series) [facility] [employer] Start: 2018 DTaP/Tdap/Td vaccine (1 - Tdap) DTaP/Tdap/Td vaccine (1 - Tdap) [facility] [employer] Start: 2017 Glaucoma screening Diabetic retinal exam [facility] Start: 2017 Hepatitis C screening Hepatitis C screen [facility] Start: 2017 Urine screening for protein Diabetic Alb to Cr ratio (uACR) test [facility] Start: 2015 Screening for Chlamydia trachomatis [facility] [employer] Start: 2014 HIV screening HIV screen [facility] Start: 2011 COVID-19 Vaccine (1) COVID-19 Vaccine (1) [facility] [employer] Work Phone: Start: 2011 Depression Monitoring Depression Monitoring [facility] [employer] Start: 2011 Depression Screen Depression Screen [facility] Start: 2010 HPV vaccine (1 - 2-dose series) HPV vaccine (1 - 2-dose series) [facility] Start: 2009 Diabetic foot examination Diabetic foot exam [facility] Start: 2005 Pneumococcal 0-64 years Vaccine (1 - PCV) Pneumococcal 0-64 years Vaccine (1 - PCV) [facility] Start: 01-22-2000 Varicella vaccine (1 of 2 - 2-dose childhood series) Varicella vaccine (1 of 2 - 2-dose childhood series) [employer] Start: 1999 COVID-19 Vaccine (#1) COVID-19 Vaccine (#1) [employer] Start: 1999 Hepatitis C screening Hepatitis C screen [employer] Phone: End: 10-29-2023 Basic metabolic 2000 panel - Serum or Plasma Basic Metabolic Panel Lab Routine Daily for 365 Days starting 10/30/2022 until 10/29/2023, 1 completed [employer] Phone: Comment on above: Daily for 365 Days starting 10/30/2022 u ntil 10/29/2023, 1 completed End: 10-29-2023 CBC W Auto Differential panel - Blood CBC with Auto Differential Lab Routine Daily for 365 Days starting 10/30/2022 until 10/29/2023, 1 completed [employer] Phone: Comment on above: Daily for 365 Days starting 10/30/2022 u ntil 10/29/2023, 1 completed CBC W Auto Differential panel - Blood CBC and differential Lab Routine Anemia during in third trimester Ordered: 04/21/2024 [facility] [employer] Work Phone: Comment on above: Ordered: 04/21/2024 End: 03-27-2021 Culture, Urine Culture, Urine Microbiology Routine One Time for 1 Occurrences starting 03/27/2021 until 03/27/2021 [employer] Phone: Comment on above: One Time for 1 Occurrences starting 03/02 until 03/27/2021 End: 05-04-2022 Cyanocobalamin vitamin b-12 [employer] Phone: Comment on above: 1 Occurrences starting 05/04/2022 until 05/04/2022 End: 05-04-2022 Ferritin [Mass/volume] in Serum or Plasma [employer] Phone: Comment on above: 1 Occurrences starting 05/04/2022 until 05/04/2022 End: 05-04-2022 Folate [employer] Phone: Comment on above: 1 Occurrences starting 05/04/2022 until 05/04/2022 Glucose [Mass/volume ] in Serum or Plasma [employer] Phone: Comment on above: 4X Daily (AC & HS) until discontinued st arting 10/29/2022 As Needed until disc ontinued starting 10/29/2022 End: 05-04-2022 Hemoglobin A1c/Hemoglobin.total in Blood [employer] Phone: Comment on above: 1 Occurrences starting 05/04/2022 until 05/04/2022 End: 10-30-2022 Hemoglobin A1c/Hemoglobin.total in Blood Hemoglobin A1C Lab Routine Tomorrow AM for 1 Occurrences starting 10/30/2022 until 10/30/2022 [employer] Phone: Comment on above: Tomorrow AM for 1 Occurrences starting 0 10/30/2022 until 10/30/2022 Hemoglobin A1c/Hemoglobin.total in Blood Hemoglobin A1C Lab Routine 10/30/2022 4:51 AM EDT [employer] Phone: End: 10-29-2023 Hepatic function 2000 panel - Serum or Plasma Hepatic Function Panel Lab Routine Daily for 365 Days starting 10/30/2022 until 10/29/2023, 1 completed [employer] Phone: Comment on above: Daily for 365 Days starting 10/30/2022 u ntil 10/29/2023, 1 completed End: 10-29-2023 Magnesium [Mass/volume] in Serum or Plasma Magnesium Lab Routine Daily for 365 Days starting 10/30/2022 until 10/29/2023, 1 completed [employer] Phone: Comment on above: Daily for 365 Days starting 10/30/2022 u ntil 10/29/2023, 1 completed Nasal Cannula Oxygen Nasal Cannu la Oxygen Respiratory Care Routine Daily until discontinued starting 10/30/2022 [employer] Phone: Comment on above: Daily until discontinued starting 2022 Oxygen therapy [Minimum Data Set] Initiate Oxygen Therapy Protocol Respiratory Care Routine As Needed until discontinued starting 10/29/2022 [employer] Phone: Comment on above: As Needed until discontinued starting End: 10-29-2023 Phosphate [Mass/volume] in Serum or Plasma Phosphorus Lab Routine Daily for 365 Days starting 10/30/2022 until 10/29/2023, 1 completed [employer] Phone: Comment on above: Daily for 365 Days starting 10/30/2022 u ntil 10/29/2023, 1 completed End: 05-04-2022 Prealbumin [Mass/volume] in Serum or Plasma [employer] Phone: Comment on above: 1 Occurrences starting 05/04/2022 until 05/04/2022 End: 10-29-2022 Spirometry panel [employer] Phone: Comment on above: Continuous until discontinued starting 0 10/29/2022 Every 2hr while awak e until discontinued starting 10/29/2022 Surgical Pathology Surgical Path ology Lab Routine Gastroesophageal reflux disease Release Upon Ordering for 1 Occurrences starting 05/04/2022 [employer] Phone: Comment on above: Release Upon Ordering for 1 Occurrences starting 05/04/2022 Surgical Pathology Surgical Path ology Lab Routine Morbid obesity (HCC) Release Upon Ordering for 1 Occurrences starting 10/29/2022 [employer] Phone: Comment on above: Release Upon Ordering for 1 Occurrences starting 10/29/2022 End: 05-04-2022 Vitamin B1 Vitamin B1 Lab Routine Morbi d obesity due to excess calories (HCC) 1 Occurrences starting 05/04/2022 until 05/04/2022 [employer] Phone: Comment on above: 1 Occurrences starting 05/04/2022 until 05/04/2022 End: 05-04-2022 Zinc Zinc Lab Routine Morbid obes ity due to excess calories (HCC) 1 Occurrences starting 05/04/2022 until 05/04/2022 [employer] Phone: Comment on above: 1 Occurrences starting 05/04/2022 until 05/04/2022 Immunizations Immunization Date Immunization Notes Care Provider Lito enriquez 10-24-2020 tuberculin skin test ; purified protein derivative solution, intradermal [facility] 2 [facility] Phone: 05-25-2019 hepatitis B vaccine, adult dosage Sjwz 2 [employer] Phone: 04-01-2019 hepatitis B vaccine, adult dosage Sjwz 2 [employer] Phone: 04-01-2019 meningococcal B vacc ine, recombinant, OMV, adjuvanted Sjwz 2 [employer] Phone: 04-01-2019 tuberculin skin test ; purified protein derivative solution, intradermal Sjwz 2 [employer] Phone: Payers Date Payer Category Payer Medicaid [employer]ICA[employer] [place] [id number] 2023-Present [address] [place] [address] [id number] 2023 Private Health Insurance [facility] MEDICAID [id number] 2020 Private Health Insurance [id number] [id number]. [id number] 2020 Private Health Insurance [id number] 1.2.840.868660.1.13.239.2. 7.3.787300.315 1999 Unknown [id number] 2.16.840.1.196879.3.579.2. 204 1999 Unknown [id number] 2.16.840.1.345952.3.579.2. 204 1999 Unknown [id number] 2.16.840.1.614303.3.579.2. 204 1999 Unknown [id number] 2.16.840.1.288349.3.579.2. 204 1999 Unknown [id number] 2.16840.1.012417.3.579.2. 128 1999 Unknown [id number] 2.16.840.1.267324.3.579.2. 128 1999 Unknown [id number] 2.16.840.1.315072.3.579.2. 1285 1999 Unknown [id number] 2.16.840.1.551890.3.579.2. 128 1999 Unknown [id number] 2.16.840.1.667325.3.579.2. 128 1999 Unknown [id number] 2.16.840.1.813687.3.579.2. 1259 1999 Unknown [id number] 2.16.840.1.337608.3.579.2. 1258 1999 Unknown [id number] 2.16.840.1.454382.3.579.2. 9 1999 Unknown [id number] 2.16.840.1.034497.3.579.2. 1258 1999 Unknown [id number] 2.16.840.1.164001.3.579.2. 1259 1999 Unknown [id number] 2.16.840.1.467566.3.579.2. 1259 1999 Unknown [id number] 2.16.840.1.729110.3.579.2. 1259 1999 Unknown [id number] 2.16.840.1.458421.3.579.2. 1259 Unknown [id number] 2.16.840.1.649133.3.579.2. 212 Unknown [id number] 2.16.840.1.681957.3.579.2. 212 Unknown [id number] 2.16.840.1.469578.3.579.2. 212 Unknown [id number] 2.16.840.1.470985.3.579.2. 212 Unknown [id number] 2.16.840.1.113252.3.579.2. 212 Unknown [id number] 2.16.840.1.145293.3.579.2. 212 Unknown [id number] 2.16.840.1.085140.3.579.2. 212 Unknown [id number] 2.16.840.1.554455.3.579.2. 212 Unknown [id number] 2.16.840.1.123103.3.579.2. 212 Social History Date Type Detail Facility Tobacco smoking stat [facility] Unknown if ever smoked [employer] Phone: Start: 2000 Sex Assigned At Not on file [employer] Phone: Start: 04-23-2022 End: 05-03-2022 Exposure to SARS-CoV-2 (event) Not sure [employer] Start: 05-03-2022 End: 10-24-2022 Tobacco smoking status NMIS Ex-smoker [employer] Phone: End: 12-29-2021 History of tobacco use Current smoker [employer] Phone: End: 12-29-2021 History of tobacco use Cigarette Smoker [employer] Phone: Start: 05-03-2022 End: 12-12-2023 Tobacco use and exposure Smokeless tobacco non-user [employer] Phone: Start: 05-04-2022 End: 10-30-2022 Alcohol intake Current drinker of alcohol (finding) [employer] Phone: Start: 05-03-2022 Tobacco Comment Quit 12/2021 FLORIDALMA [employer] Phone: Start: 05-03-2022 Alcohol Comment occ [employer] Phone: Start: 10-29-2022 History SDOH Alcohol Frequency 1 [employer] Phone: Start: 12-12-2023 Tobacco smoking stat [facility] Never smoked tobacco [facility] Start: 03-09-2024 End: 05-25-2024 Alcoholic beverage intake Ex-drinker (finding) [facility] Start: 12-12-2023 End: 03-09-2024 Alcoholic beverage intake [facility] Start: 12-12-2023 Tobacco use panel [facility] Start: 10-13-2023 [facility] 05-04-2022 to 05-25-2024 Mary Zhao [...] nursing note reviewed. Exam conducted with a leadership recruiter present. Vitals: There is no height or [...] scheduled starting this week. Order faxed to [facility] Scheduling and [facility] FBC. Gave patient handouts for [employer]. Patient to return to clinic in 2 weeks for routine OB appointment. Patient will have GBS done at that time. Documented by Mary Zhao LPN on behalf of: Bryan Dyer DO documented in this encounter [facility] 05-06-2024 History of Present illness Narrative Reason [...] of: MARILEE Espinosa documented in this encounter [facility] 04-21-2024 History of Present illness Narrative Reason [...] nursing note reviewed. Exam conducted with a leadership recruiter present. Vitals: There is no height or [...] Bryan Dyer DO documented in this encounter [facility] 04-07-2024 History of Present illness Narrative Reason [...] nursing note reviewed. Exam conducted with a leadership recruiter present. Vitals: There is no height or [...] of: MARILEE Espinosa documented in this encounter [place] [id number] Hospital Discharge instructions Lashawn Ordoñez RN - 10/30/2022 6:49 AM EDT Your information: Name: Batool Kingsley : 2000 Dr. Florence's Discharge Instructions for Bariatric Surgery [facility] Discharge Instructions For Bariatric [...] blood sugars as ordered by PCP or Program Eligibility Specialist. Follow up with PCP or Program Eligibility Specialist regarding diabetic medications. Make sure you take any medicines you were on for depression or anxiety. FOLLOW-UP Follow-up appointment with surgeon 10-14 days after surgery. Complete lab work prior to this appointment. Follow-up with PCP and/or Program Eligibility Specialist prior to seeing surgeon. CALL [facility]IGHT [facility] OFFICE [phone] IF ANY OF THE FOLLOWING OCCURS TO [...] Weapons (Notify Protective Services/Security): None Other Valuables: [place], [employer] Home Medications: None Valuables Given To: [...] through Care Everywhere.Gastric Bypass Surgery: Nuno-en-Y: Post-op ([place] Irish)documented in this encounter [employer] Phone: 10-30-2022 Hospital course Narrative Physician Discharge Summary Batool Kingsley [id number] Admit date: 10/29/2022 Discharge date and time: [...] Your Medications These medications were sent to [facility] [place], [place] - [address] [facility] - P [phone] - F [phone] [address] [facility] [id number] traMADol 50 MG tablet Activity: no lifting, [...] AM documented in this encounter [employer] Phone: 10-30-2022 History of Present illness Narrative Internal Medicine Progress Note NATHALIE=[facility] Shanta Hernandez D.O., F.A.C.O.I. Christin Mason D.O., F.A.C.O.I. Juliocesar Werner D.O. Francine Kilpatrick, MSN, EYELET OPERATOR, DIRECTOR OF SEARCH ENGINE MARKETING-C Yang Hsu, MSN, EYELET OPERATOR-EMERGENCY DEPT TECH Primary Care Physician: KAELA ARELLANO APRN - EMERGENCY DEPT TECH Admitting Physician: Deric Florence MD Admission date and time: 10/29/2022 6:02 AM Room: [address] [place] [address] Admitting diagnosis: Morbid obesity (HCC) [E66.01] Post-operative [...] reflux disease with possible hiatal hernia repair [id number] diabetes mellitus type 2 Anxiety Plan: Batool [...] 6:37 AM documented in this encounter [facility] HEALTH Work Phone: 10-24-2022 History of Present illness Narrative Images from the original note were not included. [facility] PRE OP INSTRUCTIONS FOR Batool Kingsley [...] makeup (including no eye makeup) or nail frisian on your fingers or toes. DO NOT wear any jewelry or piercings on day of surgery. All body piercing jewelry must be removed. Shower the night before surgery with _x__Antibacterial soap /CHG WIPES___x If you have a Living Will and Durable Power of Hooker Off for Healthcare, please bring in a copy. [...] and go to information desk Please call CANTILEVER CRANE OPERATOR if you have any further questions. Pre Admit Testing [phone] Rheumatology Nurse [facility] [phone] documented in this encounter [employer] Phone: 05-04-2022 Hospital Discharge instructions Ashlie Goyal [...] the day after the test, use an rork-wze-wxurord spray to numb your throat. Follow-up care [...] Where can you learn more? Go to [email or web address] and sign in to your [employer] account. Enter J454 in the Search Health Information box to learn more about Upper GI Endoscopy: What to Expect at Home. If you do not have an account, please click on the Sign Up Now link. Current as of: December 04, 2021 Content Version: 13.4 [employer]. Care instructions adapted under license by [employer] If you have questions about a medical condition or this instruction, always ask your healthcare professional. [employer] disclaims any warranty or liability for your use of this information. documented in this encounter [facility] Work Phone: 05-04-2022 History of Present illness Narrative SBAR form completed and placed on chart. Chart with patient in transit. Images from the original note were not included. [facility] PRE OP INSTRUCTIONS FOR Batool Kingsley [...] makeup (including no eye makeup) or nail frisian on your fingers or toes. DO NOT wear any jewelry or piercings on day of surgery. All body piercing jewelry must be removed. Shower the night before surgery with _x__Antibacterial soap /ALEXANDER WIPES TOTAL JOINT REPLACEMENT/HYSTERECTOMY PATIENTS ONLY---Remember to bring Blood Bank bracelet to the hospital on the day of surgery. If you have a Living Will and Durable Power of Hooker Off for Healthcare, please bring in a copy. [...] safety of all patients. Other Please call CANTILEVER CRANE OPERATOR if you have any further questions. Pre Admit Testing [phone] Rheumatology Nurse [place] [phone] documented in this encounter [employer] Phone: Evaluation note Diagnosis DUB (dysfunctional uterine bleeding)- Primary Other disorder of menstruation and other abnormal bleeding from female genital tract documented in this encounter [employer] Phone: evaluation note* Diagnosis Gastroesophageal reflux disease- Primary Esophageal reflux Morbid obesity due to excess calories (HCC) documented in this encounter [employer] Phone: evaluation note* Diagnosis Morbid obesity (HCC)- Primary Morbid obesity Preop testing- Primary Preoperative examination, unspecified 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 Morbid obesity (HCC) Morbid obesity documented in this encounter [employer] Phone: evaluation note* Diagnosis S/P gastric bypass- Primary Bariatric surgery status Morbid obesity (HCC) Morbid obesity Post-operative state Other postprocedural status Morbid obesity (HCC) Morbid obesity Post-operative state Other postprocedural status documented in this encounter FLORIDALMA GIPSON [employer] Phone: evaluation note* Diagnosis 27 weeks gestation of Second trimester state, incidental Gestational diabetes mellitus (GDM), antepartum, gestational diabetes method of control unspecified Anemia affecting in second trimester documented in this encounter [facility] HealthcareEvaluation note* Diagnosis Third trimester state, incidental 29 weeks gestation of Anemia during in third trimester Elevated glucose tolerance test Impaired glucose tolerance test Abnormal thyroid stimulating hormone (TSH) level documented in this encounter [facility] HealthcareEvaluation note* Diagnosis Third trimester state, incidental 31 weeks gestation of Anxiety, generalized (CMS/HCC) Sinusitis, unspecified chronicity, unspecified location documented in this encounter [facility] HealthcareEvaluation note* Diagnosis 34 weeks gestation of Third trimester state, incidental Insomnia, unspecified type History of gastric bypass Gestational diabetes mellitus (GDM), antepartum, gestational diabetes method of control unspecified documented in this encounter [facility] HealthcareHospital Discharge instructions* Attachments The following attachments cannot be sent through Care Everywhere. * AUB (Abnormal Uterine Bleeding) (Northern Irish) [facility] Phone: Summary Purpose Family History No Family [...] section and content) DATE CREATED AUTHOR 07/16/2020 [facility]ctor [place] DATE CREATED AUTHOR AUTHOR'S ORGANIZ ATION 05/05/2022 [facility] DATE CREATED AUTHOR AUTHOR'S ORGANIZ ATION 02/07/2023 [facility] DATE CREATED AUTHOR AUTHOR'S ORGANIZ ATION 06/04/2023 [facility] DATE CREATED AUTHOR AUTHOR'S ORGANIZ ATION 02/19/2024 [facility] DATE CREATED AUTHOR AUTHOR'S ORGANIZ ATION 03/19/2024 [facility] DATE CREATED AUTHOR AUTHOR'S ORGANIZ ATION 05/27/2024 [facility] d[facility] Specialists EPIC Reason for Visit (unrecogniz ed section and content) Reason Comments Vaginal Bleeding 4 pad per hour, larg e clots present Specialty Diagnoses / Procedures Referred By Geronimo reardon Referred To Contact Diagnoses Gastroesophageal reflux disease Gastroesophageal reflux disease [K21.9] Procedures CT EGD TRANSORAL BIOPSY SINGLE/MULTIPLE CT EGD TRANSORAL BIOPSY SINGLE/MULTIPLE CT ESOPHAGOGASTRODUODENOSCOPY TRANSORAL DIAGNOSTIC CT EGD BALLOON DILATION ESOPHAGUS <30 MM DIAM EGD ESOPHAGOGASTRODUODENOSCOPY Deric Florence MD [address] [facility] [address] [place] [address] [employer] [facility] [address] [place] [address] Referral ID Status Reason Start Date Expiration Date Visits Re quested Visits Authorized [id number] 1 1 Specialty Diagnoses / Procedures Referred By Geronimo reardon Referred To Contact Diagnoses Morbid obesity (HCC) Morbid obesity (HCC) [E66.01] Procedures CT LAPS GSTR RSTCV PX W/BYP NUNO-EN-Y LIMB <150 CM GASTRIC BYPASS NUNO-EN-Y LAPAROSCOPIC Deric Florence MD [address] [place] [address] [facility] [address] [place] [address] Referral ID Status Reason Start Date Expiration Date Visits Re quested Visits Authorized [id number] 1 1 Reason Comments Routine Visit Continuous [...] 100 mL IVPB (COMPLETED) 3,000 mg, IntraVENous, MEAT CLERK TO O.R., 1 dose, On Sat10/29/22 at [...] 4 minutes. 1022 (Given - Provider: Khushi Hebetr, MELANIA) midazolam (VERSED) injection 2 mg (COMPLETED) [...] of order., Post-op bupivacaine-EPINEPHrine PF (MARCAINE-w/EPINEPHrine) 0.25% -1:[id number] injection (CANCELED) PRN, Starting on Sat10/29/22 at [...]
Care Teams (unrecognized sec tion and content) Vocational Evaluator Relationship Specialty Start Date End Date Kaela Arellano, EYELET OPERATOR - EMERGENCY DEPT TECH [id number] [place] [address] PCP - General Certified Nurse Practitioner 04/27/22 Vocational Evaluator Relationship Specialty Start Date End Date Kaela Arellano APRN - [facility] [address] [place] [address] PCP - General Certified Nurse Practitioner 09/14/22 Vocational Evaluator Relationship Specialty Start Date End Date Kaela Arellano APRN - [facility] [address] [place] [address] PCP - General Certified Nurse Practitioner 09/14/22 [...] BE BASED ON THE PRIMARY CLINICAL RECORDS. [employer] provides no warranty or guarantee of the accuracy or completeness of information in this document."
[2024-06-03 17:32] VITALS: BP 120/56; PULSE 85; TEMP 36.5
[2024-06-03 17:33] VITALS: BP 120/56; PULSE 85
== END 2024-06-03 17:52 | disposition home or self-care (01) ==
LOC: FBCO 06:23 → FBC 17:24
PROVIDERS: Visit Provider Obstetrics & Gynecology
DX: O26.893 Other specified pregnancy related conditions, third trimester (principal)
CPT/HCPCS: 59025

== ENCOUNTER 2024-06-06 06:39 | Outpatient (OUT) | payer OTHER, SELFPAY ==
--- NOTE | 2024-06-06 | US_ITS ---
[address] [address] Patient Name: CARLO KINGSLEY MRN: [facility]:[id number] date: 2000 Sex: F Assigned Patient Location: [facility] Current Patient Location: Accession/Order Number: [id number] Exam Date: 06/06/2024 09:51 Report Date: 06/07/2024 05:41 At the request of: STEPHANIE WEST Procedure: US OB BPP w non-stress EXAMINATION: US OB BPP w non-stress HISTORY:Gestational diabetes mellitus O24.419 COMPARISON: Ultrasound OB biophysical 05/30/2024 TECHNIQUE: Ultrasound biophysical profile was performed in the radiology department. BREATHING MOVEMENTS: 2 GROSS BODY MOVEMENTS: 2 TONE: 2 QUALITATIVE AMNIOTIC FLUID VOLUME: 2 PRESENTATION: CEPHALIC HEART RATE: 133.00 bpm AMNIOTIC FLUID VOLUME: 15.00 cm GESTATIONAL AGE: 35 weeks 6 days US/US OB BPP w non-stress IMPRESSION: Total biophysical profile score: 8 Electronically authenticated by: MAGALIE BARROS Date: 06/07/2024 05:41
--- NOTE | 2024-06-06 | US_ITS ---
[address] [address] Patient Name: CARLO KINGSLEY MRN: [id number] date: 2000 Sex: F Assigned Patient Location: [facility] Current Patient Location: [facility] Accession/Order Number: [id number] Exam Date: 06/06/2024 09:51 Report Date: 06/07/2024 05:48 At the request of: STEPHANIE WEST Procedure: US OB growth EXAMINATION: US OB growth HISTORY: Gestational diabetes mellitus O24.419 COMPARISON: ULTRASOUND OB GROWTH 05/06/2024 FINDINGS: Heart Rate: 133.00 bpm Amniotic Fluid Volume: 15.0 cm; normal range. Number: 1 Position: CEPHALIC BIOMETRY: BPD: 8.89 cm; 36 weeks 0 days; 60.60 % HC: 32.98 cm; 37 weeks 4 days; 60.70 % AC: 30.73 cm; 34 weeks 5 days; 25.80 % FL: 7.10 cm; 36 weeks 3 days; 58.80 % EFW: 2711.95 g; 42.10 % FL/AC: 23.09 FL/BPD: 79.83 HC/AC: 1.07 GESTATIONAL AGE: Age by EDC: 35 weeks 6 days KATELIN by EDC: 2024-07-05 Age by US: 36 weeks 1 day KATELIN by US: 2024-07-03 US/US OB growth IMPRESSION: 1. Single live intrauterine with growth detailed above. Electronically authenticated by: MAGALIE BARROS Date: 06/07/2024 05:48
[2024-06-06 10:14] VITALS: TEMP 36.4
[2024-06-06 10:15] VITALS: BP 126/64; PULSE 88
== END 2024-06-06 10:47 | disposition home or self-care (01) ==
LOC: FBCO 06:40 → FBC 09:48
PROVIDERS: Visit Provider Obstetrics & Gynecology
DX: O24.419 Gestational diabetes mellitus in pregnancy, unspecified control (principal); O26.893 Other specified pregnancy related conditions, third trimester; Z98.84 Bariatric surgery status; Z3A.35 35 weeks gestation of pregnancy
CPT/HCPCS: 59025; 76816; 76818

== ENCOUNTER 2024-06-10 19:53 | Outpatient (REF) | payer OTHER, SELFPAY ==
--- OUTSIDE RECORDS SUMMARY | 2024-06-10 20:15 | XMS_ITS | CCD ---
Author Organization [facility] Care Team Providers Care Inspector Shells Name Role Phone Unavailable Primary Care Provider Unavailabl e [place] DIETETIC TECH - SHERIE, Kaela Primary Care Provider [phone] DERIC FLORENCE Referring Unavailable GILLIAN, KAELA Primary Care Unavailable [place] DIETETIC TECH - BUILDING CONSTRUCTION ENGINEER, Kaela Primary Care Provider GILLIAN, KAELA Primary Care Unavailable DERIC FLORENCE Referring Unavailable GILLIAN, KAELA Primary Care Unavailable DERIC FLORENCE Admitting Unavailable DERIC FLORENCE Attending Unavailable CHRISTIN MASON Unavailable GILLIAN, KAELA Primary Care Unavailable DERIC FLORENCE Admitting Unavailable DERIC FLORENCE Attending Unavailable GILLIAN, KAELA Primary Care Unavailable GILLIAN, KAELA Attending Unavailable GLILIAN, KAELA Primary Care Unavailable VAHE FLORENCE Attending [...] Drug Class(es) Dates Sig (Normalized) Sig (Original) [id number] 200 actuat albuterol 0.09 mg/actuat metered dose [...] UA Negative Negative - 4(70) +++ mg/dL [facility] Blood, UA Negative Negative - 50 Marcus/mcL [facility] Clarity, UA Clear [facility] re Color, UA Yellow [facility] Glucose, UA Negative Negative - 2000(110) ++++ mg/dL [facility] Interpretation and review of laboratory results Normal [facility] Ketones, UA Negative Negative - 160(16) ++++ mg/dL [facility] Leukocytes, UA Negative Negative - 500+++ Henrique/mcL [facility] Nitrite, UA Negative Negative - Positive [facility] pH, UA 5.5 5 - 9 [facility] Protein, UA Negative Negative - 1999(20) ++++ mg/dL [facility] Spec Grav, UA 1.03 1 - 1.03 [facility] Urobilinogen, UA 0.2 0.2 - 12 mg/dL [facility] Urinalysis macro (dipstick) panel (U)on 05-06-2024 Bilirubin, UA Positive Negative - (70) +++ mg/dL [facility] Comment on above: small Blood, UA Negative Negative - 50 Marcus/mcL [facility] Clarity, UA Clear [facility] re Color, UA Yellow [facility] e Glucose, UA Negative Negative - 1999(110) ++++ mg/dL [facility] Interpretation and review of laboratory results Abnormal [facility] Ketones, UA Negative Negative - 160(16) ++++ mg/dL [facility] Leukocytes, UA Negative Negative - 500+++ Henrique/mcL [facility] Nitrite, UA Negative Negative - Positive [facility] pH, UA 5.5 5 - 9 [facility], UA Negative Negative - 1999(20) ++++ mg/dL [facility] Spec Grav, UA 1.03 1 - 1.03 [facility] Urobilinogen, UA 1.0 0.2 - 12 mg/dL [facility] ALL CBC WITH AUTO DIFFon BASOPHILS ABSOLUTE AUTO 0 [facility] Basophils/100 WBC (Bld) 0.2 % 0.2 - 2.0 % [facility] Eosinophils/100 WBC (Bld) 1.7 % 0.9 - 7.0 % [facility] Erythrocyte distribution width (RBC) [Ratio] 12.8 % 11.0 - 15.0 % [facility] Hematocrit (Bld) [Volume fraction] 33.8 % Low 36.0 - 48.0 % [facility] Hemoglobin (Bld) [Mass/Vol] 11.6 g/dL Low 12.0 - 16.0 g/dL [facility] IMMATURE GRANULOCYTES ABS AUTO 0.06 High [facility] Immature granulocytes/100 WBC (Bld) 0.6 % High 0.0 - 0.5 % [facility] Interpretation and review of laboratory results Abnormal [facility] LYMPHOCYTES ABSOLUTE AUTO 3.1 [facility] Lymphocytes/100 WBC (Bld) 31.7 % 20.5 - 60.0 % [facility] MCH (RBC) [Entitic mass] 32 pg 26.7 - 34.0 pg [facility] MCHC (RBC) [Mass/Vol] 34.3 g/dL 29.9 - 35.2 g/dL [facility] MCV (RBC) [Entitic vol] 93.1 fL 81.0 - 99.0 fL [facility] MONOCYTES ABSOLUTE AUTO 0.5 [facility] Monocytes/100 WBC (Bld) 5.1 % 1.7 - 12.0 % [facility] NEUTROPHILS ABSOLUTE AUTO 5.9 [facility] Neutrophils/100 WBC (Bld) 60.7 % 43.0 - 75.0 % [facility] Platelet mean volume (Bld) [Entitic vol] 10.2 fL 9.5 - 13.5 fL [facility] TBH EO # 0.2 [facility] [address] [facility] e TB RBC 3.63 Low [facility] TB WBC 9.6 [facility] Urinalysis macro (dipstick) panel (U)on 04-07-2024 Bilirubin, UA Negative Negative - 4(70) +++ mg/dL [facility] Blood, UA Negative Negative - 50 Marcus/mcL [facility] Clarity, UA Clear [facility] re Color, UA Yellow [facility] e Glucose, UA Negative Negative - 1999(110) ++++ mg/dL [facility] Interpretation and review of laboratory results Normal [facility] Ketones, UA Negative Negative - 160(16) ++++ mg/dL [facility] Leukocytes, UA Negative Negative - 500+++ Henrique/mcL [facility] Nitrite, UA Negative Negative - Positive [facility] pH, UA 6.5 5 - 9 [facility] e Protein, UA Negative Negative - 1999(20) ++++ mg/dL [facility] Spec Grav, UA 1.025 1 - 1.03 [facility] Urobilinogen, UA 1.0 0.2 - 12 mg/dL [facility] HCG ( test) Ql (U)o n 11-10-2023 Beta HCG ( test) Ql (U) Positive Abnormal NEG [facility] Comment on above: Performed By: #### 2 106-3 #### [facility] ([id number]) [address] [place] [address]16 URN MACROSCOPIC NURon 2023 BILIRUBIN [place] Negative Normal NEG [facility] Comment on above: Performed By: #### N UM #### [facility] ([id number]) [address] [place] [address] 56462 BLOOD/HGB [place] Trace Abnormal NEG [facility] Comment on above: Performed By: #### N UM #### [facility] ([id number]) [address] [place] [address] 69959 GLUCOSE [place] Negative Normal NEG [facility] Comment on above: Performed By: #### N UM #### [facility] ([id number]) [address] [place] [address] 92003 KETONES [place] Trace Abnormal NEG [facility] Comment on above: Performed By: #### N UM #### [facility] ([id number]) [address] [place] [address] 57969 LEUKOCYTE ESTERASE [place] Small Abnormal NEG [facility] Comment on above: Performed By: #### N UM #### [facility] ([id number]) [address] [place] [address] 25990 NITRITE [place] Negative Normal NEG [facility] Comment on above: Performed By: #### N UM #### [facility] ([id number]) [address] [place] [address] 11991 PH [place] 6.0 Normal 5.0-8.5 [facility] Comment on above: Performed By: #### N UM #### [facility] ([id number]) [address] [facility] [place], [place] [address] PROTEIN [place] Negative Normal NEG [facility] Comment on above: Performed By: #### N UM #### [facility] ([id number]) [address] [place] [address] SPECIFIC GRAVITY [place] 1.025 Normal 1.003-1.035 [facility] Comment on above: Performed By: #### N UM #### [facility] ([id number]) [address] [place] [address] 19210 UROBILINOGEN [place] 2.0 eu/dL High <1.1 [facility] Comment on above: Performed By: #### N UM #### [facility] ([id number]) [address] [place] [address] 72128 SARS/FLU A+B/RSV by NAAT/Mol ecularon 08-14-2023 SARS/FLU [...] operators who are performing tests using either [employer] or [employer] systems and is limited to laboratories that [...] repeat. Fact Sheet for Healthcare Providers: https://www.fda.gov /media/011442/downl oad Fact Sheet for Patients: https://www.fda.gov /media/162152/downl oad Normal [facility] Comment on above: Performed By: #### C OVFLR #### [facility] ([id number]) [address] [place] [address], [place] [address] VITAMIN B1-THIAMINE WHOLE BL Don 12-20-2022 VITAMIN B1-THIAMINE WHOLE BLD 142.2 nmol/L Normal 66.5-200.0 [facility] Comment on above: Order Comment: FAX R ESULTS TO DR FLORENCE: [phone] Result Comment: This test was developed and its performance characteristics determined by [facility]. It has not been cleared or approved by the Food and Drug Administration. Performed at: [address] [id number] Brake Mechanic: Estuardo Michelle MD, Phone: [phone] This test was developed and its performance characteristics determined by [employer]. It has not been cleared or approved by the Food and Drug Administration. Performed By: #### V ITB1, ZINC #### [facility] [address] [place] [address] #### B12, FOL, CMP, PREALB, ANDREZ, CBCD #### [facility] [address] [place] [address] ZINC, PLASMAon 12-18-2022 ZINC, PLASMA 86 ug/dL Normal 44-115 [facility] Comment on above: Order Comment: JENNIFER COLIN TO DR FLORENCE: [phone] Result Comment: This test was developed and its performance characteristics determined by [facility]. It has not been cleared or approved by the Food and Drug Administration. Detection Limit = 5 Performed at: [address] [id number] Brake Mechanic: Estuardo Michelle MD, Phone: [phone] This test was developed and its performance characteristics determined by [facility]. It has not been cleared or approved by the Food and Drug Administration. Performed By: #### V ITB1, ZINC #### [facility] [address] [place] [address] #### B12, FOL, CMP, PREALB, ANDREZ, CBCD #### [facility] [address] [place] [address] CBC with DIFFERENTIALon 11-29 Basophils (Bld) [#/Vol] 0.0 10*3/uL Normal 0.0-0.1 [facility] Comment on above: Order Comment: JENNIFER COLIN TO DR FLORENCE: [phone] Performed By: #### V ITB1, ZINC #### [facility] [address] [place] [address] #### B12, FOL, CMP, PREALB, ANDREZ, CBCD #### [facility] [address] [place] [address] Basophils/100 WBC (Bld) 0.5 % Normal 0.0-1.0 [facility] Comment on above: Order Comment: JENNIFER COLIN TO DR FLORENCE: [phone] Performed By: #### V ITB1, ZINC #### [facility] [address] [place] [address] #### B12, FOL, CMP, PREALB, ANDREZ, CBCD #### [facility] [address] [place] [address] Eosinophils (Bld) [#/Vol] 0.4 10*3/uL Normal 0.0-0.4 [facility] Comment on above: Order Comment: FAMaximo COLIN TO DR FLORENCE: [phone] Performed By: #### V ITB1, ZINC #### [facility] [address] [place] [address] #### B12, FOL, CMP, PREALB, ANDREZ, CBCD #### [facility] [address] [place] [address] Eosinophils/100 WBC (Bld) 4.8 % High 1.0-4.0 [facility] Comment on above: Order Comment: FAX R CRISTI TO DR FLORENCE: [phone] Performed By: #### V ITB1, ZINC #### [facility] [address] [place] [address] #### B12, FOL, CMP, PREALB, ANDREZ, CBCD #### [facility] [address] [place] [address] Hematocrit (Bld) [Volume fraction] 41.9 % Normal 37.0-47.0 [facility] Comment on above: Order Comment: FAMaximo COLIN TO DR FLORENCE: [phone] Performed By: #### V ITB1, ZINC #### [facility] [address] [place] [address] #### B12, FOL, CMP, PREALB, ANDREZ, CBCD #### [facility] [address] [place] [address]66 Hemoglobin (Bld) [Mass/Vol] 13.8 g/dL Normal 12.0-16.0 [facility] Comment on above: Order Comment: FAMaximo COLIN TO DR FLORENCE: [phone] Performed By: #### V ITB1, ZINC #### [facility] [address] [place] [address] #### B12, FOL, CMP, PREALB, ANDREZ, CBCD #### [facility] [address] [place] [address] IG # 0.0 10*3/uL Normal 0.0-0.1 [facility] Comment on above: Order Comment: FAX R ESULTS TO DR FLORENCE: [phone] Performed By: #### V ITB1, ZINC #### [facility] [address] [place] [address] #### B12, FOL, CMP, PREALB, ANDREZ, CBCD #### [facility] [address] [place] [address] IG % 0.4 % Normal 0.0-1.0 [facility] Comment on above: Order Comment: FAX R ESULTS TO DR FLORENCE: [phone] Performed By: #### V ITB1, ZINC #### [facility] [address] [place] [address] #### B12, FOL, CMP, PREALB, ANDREZ, CBCD #### [facility] [address] [place] [address] Lymphocytes (Bld) [#/Vol] 3.8 10*3/uL Normal 1.3-4.4 [facility] Comment on above: Order Comment: FAX R ESULTS TO DR FLORENCE: [phone] Performed By: #### V ITB1, ZINC #### [facility] [address] [place] [address] #### B12, FOL, CMP, PREALB, ANDREZ, CBCD #### [facility] [address] [place] [address]39[address] Lymphocytes/100 WBC (Bld) 45.5 % High 27.0-41.0 [facility] Comment on above: Order Comment: FAX R ESULTS TO DR FLORENCE: [phone] Performed By: #### V ITB1, ZINC #### [facility] [address] [place] [address] #### B12, FOL, CMP, PREALB, ANDREZ, CBCD #### [facility] [address] [place] [address] MCV (RBC) [Entitic vol] 89.3 fL Normal 81.0-99.0 [facility] Comment on above: Order Comment: FAX R ESULTS TO DR FLORENCE: [phone] Performed By: #### V ITB1, ZINC #### [facility] [address] [place] [address] #### B12, FOL, CMP, PREALB, NADREZ, CBCD #### [facility] [address] [place] [address] MEAN CORPUSCULAR HGB 29.4 pg Normal 27.0-31.0 [facility] Comment on above: Order Comment: FAX R ESULTS TO DR FLORENCE: [phone] Performed By: #### V ITB1, ZINC #### [facility] [address] [place] [address] #### B12, FOL, CMP, PREALB, ANDREZ, CBCD #### [facility] [address] [place] [address] MEAN CORPUSCULAR HGB CONC 32.9 g/dl Low 33.0-37.0 [facility] Comment on above: Order Comment: FAX R ESULTS TO DR FLORENCE: [phone] Performed By: #### V ITB1, ZINC #### [facility] [address] [place] [address] #### B12, FOL, CMP, PREALB, ANDREZ, CBCD #### [facility] [address] [place] [address]886 Monocytes (Bld) [#/Vol] 0.4 10*3/uL Normal 0.1-1.0 [facility] Comment on above: Order Comment: FAX R ESULTS TO DR FLORENCE: [phone] Performed By: #### V ITB1, ZINC #### [facility] [address] [place] [address] #### B12, FOL, CMP, PREALB, ANDREZ, CBCD #### [facility] [address] [place] [address] Monocytes/100 WBC (Bld) 4.3 % Normal 3.0-9.0 [facility] Comment on above: Order Comment: FAX R ESULTS TO DR FLORENCE: [phone] Performed By: #### V ITB1, ZINC #### [facility] [address] [place] [address] #### B12, FOL, CMP, PREALB, ANDREZ, CBCD #### [facility] [address] [place] [address] 20071 Neutrophils (Bld) [#/Vol] 3.7 10*3/uL Normal 2.3-7.9 [facility] Comment on above: Order Comment: FAX R ESULTS TO DR FLORENCE: [phone] Performed By: #### V ITB1, ZINC #### [facility] [address] [place] [address] #### B12, FOL, CMP, PREALB, ANDREZ, CBCD #### [facility] [address] [place] [address] 78310 Neutrophils/100 WBC (Bld) 44.5 % Low 47.0-73.0 [facility] Comment on above: Order Comment: FAX R ESULTS TO DR FLORENCE: [phone] Performed By: #### V ITB1, ZINC #### [facility] [address] [place] [address] #### B12, FOL, CMP, PREALB, ANDREZ, CBCD #### [facility] [address] [place] [address]64[address] NUCLEATED RED BLOOD CELL 0.0 10*3/uL Normal 0.0-0.0 [facility] Comment on above: Order Comment: FAX R ESULTS TO DR FLORENCE: [phone] Performed By: #### V ITB1, ZINC #### [facility] [address] [place] [address] #### B12, FOL, CMP, PREALB, ANDREZ, CBCD #### [facility] [address] [place] [address] 63389 NUCLEATED RED BLOOD CELL 0.0 % Normal 0.0-0.0 [facility] Comment on above: Order Comment: FAX R ESULTS TO DR FLORENCE: [phone] Performed By: #### V ITB1, ZINC #### [facility] [address] [place] [address] #### B12, FOL, CMP, PREALB, ANDREZ, CBCD #### [facility] [address] [place] [address] PLATELET COUNT AUTOMATED 277 10*3/uL Normal 130-400 [facility] Comment on above: Order Comment: FAX R ESULTS TO DR FLORENCE: [phone] Performed By: #### V ITB1, ZINC #### [facility] [address] [place] [address] #### B12, FOL, CMP, PREALB, ANDREZ, CBCD #### [facility] [address] [place] [address] Platelet mean volume (Bld) [Entitic vol] 11.2 fL Normal 9.6-12.3 [facility] Comment on above: Order Comment: FAX R ESULTS TO DR FLORENCE: [phone] Performed By: #### V ITB1, ZINC #### [facility] [address] [place] [address] #### B12, FOL, CMP, PREALB, ANDREZ, CBCD #### [facility] [address] [place] [address] RBC (Bld) [#/Vol] 4.69 10*6/uL Normal 4.10-5.10 [facility] Comment on above: Order Comment: FAX R ESULTS TO DR FLORENCE: [phone] Performed By: #### V ITB1, ZINC #### [facility] [address] [place] [address] #### B12, FOL, CMP, PREALB, ANDREZ, CBCD #### [facility] [address] [place] [address] RED CELL DISTRI WIDTH 13.5 % Normal 0-14.5 [facility] Comment on above: Order Comment: FAX R ESULTS TO DR FLORENCE: [phone] Performed By: #### V ITB1, ZINC #### [facility] [address] [place] [address] #### B12, FOL, CMP, PREALB, ANDREZ, CBCD #### [facility] [address] [place] [address]489 WBC (Bld) [#/Vol] 8.3 10*3/uL Normal 4.8-10.8 [facility] Comment on above: Order Comment: FAX R ESULTS TO DR FLORENCE: [phone] Performed By: #### V ITB1, ZINC #### [facility] [address] [place] [address] #### B12, FOL, CMP, PREALB, ANDREZ, CBCD #### [facility] [address] [place] [address] [address] [facility] 12-14-2022 Albumin [Mass/Vol] 3.8 g/dL Normal 3.4-5.0 [facility] Comment on above: Order Comment: FAX R ESULTS TO DR FLORENCE: [phone] Performed By: #### V ITB1, ZINC #### [facility] [address] [place] [address] #### B12, FOL, CMP, PREALB, ANDREZ, CBCD #### [facility] [address] [place] [address] ALP [Catalytic activity/Vol] 74 U/L Normal 46-116 [facility] Comment on above: Order Comment: FAX R ESULTS TO DR FLORENCE: [phone] Performed By: #### V ITB1, ZINC #### [facility] [address] [place] [address] #### B12, FOL, CMP, PREALB, ANDREZ, CBCD #### [facility] [address] [place] [address] ALT [Catalytic activity/Vol] 34 U/L Normal 10-49 [facility] Comment on above: Order Comment: FAX R ESULTS TO DR FLORENCE: [phone] Performed By: #### V ITB1, ZINC #### [facility] [address] [place] [address] #### B12, FOL, CMP, PREALB, ANDREZ, CBCD #### [facility] [address] [place] [address] AST [Catalytic activity/Vol] 19 U/L Normal 0-34 [facility] Comment on above: Order Comment: FAX R ESULTS TO DR FLORENCE: [phone] Performed By: #### V ITB1, ZINC #### [facility] [address] [place] [address] #### B12, FOL, CMP, PREALB, ANDREZ, CBCD #### [facility] [address] [place] [address] Bilirubin [Mass/Vol] 0.3 mg/dL Normal 0.3-1.2 [facility] Comment on above: Order Comment: FAX R ESULTS TO DR FLORENCE: [phone] Performed By: #### V ITB1, ZINC #### [facility] [address] [place] [address] #### B12, FOL, CMP, PREALB, ANDREZ, CBCD #### [facility] [address] [place] [address] CALCIUM,TOTAL 9.0 md/dL Normal 8.7-10.4 [facility] Comment on above: Order Comment: FAX R ESULTS TO DR FLORENCE: [phone] Performed By: #### V ITB1, ZINC #### [facility] [address] [place] [address] #### B12, FOL, CMP, PREALB, ANDREZ, CBCD #### [facility] [address] [place] [address] Chloride [Moles/Vol] 109 mmol/L High 98-107 [facility] Comment on above: Order Comment: FAX R ESULTS TO DR FLORENCE: [phone] Performed By: #### V ITB1, ZINC #### [facility] [address] [place] [address] #### B12, FOL, CMP, PREALB, ANDREZ, CBCD #### [facility] [address] [place] [address] CO2 [Moles/Vol] 27 mmol/L Normal 20-31 [facility] Comment on above: Order Comment: FAX R ESULTS TO DR FLORENCE: [phone] Performed By: #### V ITB1, ZINC #### [facility] [address] [place] [address] #### B12, FOL, CMP, PREALB, ANDREZ, CBCD #### [facility] [address] [place] [address] Creatinine [Mass/Vol] 0.62 mg/dL Normal 0.55-1.02 [facility] Comment on above: Order Comment: FAX R ESULTS TO DR FLORENCE: [phone] Performed By: #### V ITB1, ZINC #### [facility] [address] [place] [address] #### B12, FOL, CMP, PREALB, ANDREZ, CBCD #### [facility] [address] [place] [address] EST GLOM FILT > 60 Normal [facility] Comment on above: Order Comment: FAX R ESULTS TO DR FLORENCE: [phone] Result Comment: Result Units: mL/min/1.73 m2 Note: [...] #### V ITB1, ZINC #### [facility] [address] [place] [address] #### B12, FOL, CMP, PREALB, ANDREZ, CBCD #### [facility] [address] [place] [address] ESTIMATED GLOM FILT RATE > 60 Normal [facility] Comment on above: Order Comment: FAX R ESULTS TO DR FLORENCE: [phone] Performed By: #### V ITB1, ZINC #### [facility] [address] [place] [address] #### B12, FOL, CMP, PREALB, ANDREZ, CBCD #### [facility] [address] [place] [address] Glucose [Mass/Vol] 103 mg/dL High 65-99 [facility] Comment on above: Order Comment: FAMaximo R STIVENULTS TO DR FLORENCE: [phone] Performed By: #### V ITB1, ZINC #### [facility] [address] [place] [address] #### B12, FOL, CMP, PREALB, ANDREZ, CBCD #### [facility] [address] [place] [address] Potassium [Moles/Vol] 3.6 mmol/L Normal 3.4-5.1 [facility] Comment on above: Order Comment: FAMaximo R ESULTS TO DR FLORENCE: [phone] Performed By: #### V ITB1, ZINC #### [facility] [address] [place] [address] #### B12, FOL, CMP, PREALB, ANDREZ, CBCD #### [facility] [address] [place] [address] Protein [Mass/Vol] 6.5 g/dL Normal 6.0-8.0 [facility] Comment on above: Order Comment: JENNIFER R ESULTS TO DR FLORENCE: [phone] Performed By: #### V ITB1, ZINC #### [facility] [address] [place] [address] #### B12, FOL, CMP, PREALB, ANDREZ, CBCD #### [facility] [address] [place] [address] Sodium [Moles/Vol] 138 mmol/L Normal 136-145 [facility] Comment on above: Order Comment: JENNIFER COLIN TO DR FLORENCE: [phone] Performed By: #### V ITB1, ZINC #### [facility] [address] [place] [address] #### B12, FOL, CMP, PREALB, ANDREZ, CBCD #### [facility] [address] [place] [address] Urea nitrogen [Mass/Vol] 8 mg/dL Low - [facility] Comment on above: Order Comment: JENNIFER COLIN TO DR FLORENCE: [phone] Performed By: #### V ITB1, ZINC #### [facility] [address] [place] [address] #### B12, FOL, CMP, PREALB, ANDREZ, CBCD #### [facility] [address] [place] [address] FERRITINon 12-14-2022 Ferritin [Mass/Vol] 40.9 ng/mL Normal 7.3-307.3 [facility] Comment on above: Order Comment: JENNIFER COLIN TO DR FLORENCE: [phone] Performed By: #### V ITB1, ZINC #### [facility] [address] [place] [address] #### B12, FOL, CMP, PREALB, ANDREZ, CBCD #### [facility] [address] [place] [address] FOLIC ACIDon 12-14-2022 FOLIC ACID 16.04 ng/mL Normal 5.38-24.00 [facility] Comment on above: Order Comment: JENNIFER COLIN TO DR FLORENCE: [phone] Result Comment: 0.35 - 3.7 ng/mL - Folate Deficiency 3.38 - 5.38 ng/mL - Indeterminate > 5.38 ng/mL - Normal Performed By: #### V ITB1, ZINC #### [facility] [address] [place] [address] #### B12, FOL, CMP, PREALB, ANDREZ, CBCD #### [facility] [address] [place] [address] PREALBUMINon 12-14-2022 Prealbumin [Mass/Vol] 16 mg/dL Normal 10-40 [facility] Comment on above: Order Comment: FAX R ESULTS TO DR FLORENCE: [phone] Performed By: #### V ITB1, ZINC #### [facility] [address] [place] [address] #### B12, FOL, CMP, PREALB, ANDREZ, CBCD #### [facility] [address] [place] [address] VITAMIN B12on 12-14-2022 Cobalamin (Vitamin B12) [Mass/Vol] 261 pg/mL Normal 211-911 [facility] Comment on above: Order Comment: FAX R ESULTS TO DR FLORENCE: [phone] Result Comment: 247 - 911 pg/mL - Normal, Vitamin B12 Sufficiency Performed By: #### V ITB1, ZINC #### [facility] [address] [place] [address] #### B12, FOL, CMP, PREALB, ANDREZ, CBCD #### [facility] [address] [place] [address] CBC with DIFFERENTIALon Basophils (Bld) [#/Vol] 0.0 10*3/uL Normal 0.0-0.1 [facility] Comment on above: Performed By: #### V ITB1, ZINC #### [facility] [address] [place] [address] #### B12, FOL, CMP, PREALB, ANDREZ, CBCD #### [facility] [address] [place] [address] Basophils/100 WBC (Bld) 0.6 % Normal 0.0-1.0 [facility] Comment on above: Performed By: #### V ITB1, ZINC #### [facility] [address] [place] [address] #### B12, FOL, CMP, PREALB, ANDREZ, CBCD #### [facility] [address] [place] [address] Eosinophils (Bld) [#/Vol] 0.4 10*3/uL Normal 0.0-0.4 [facility] Comment on above: Performed By: #### V ITB1, ZINC #### [facility] [address] [place] [address] #### B12, FOL, CMP, PREALB, ANDREZ, CBCD #### [facility] [address] [place] [address] Eosinophils/100 WBC (Bld) 6.0 % High 1.0-4.0 [facility] Comment on above: Performed By: #### V ITB1, ZINC #### [facility] [address] [place] [address] #### B12, FOL, CMP, PREALB, ANDREZ, CBCD #### [facility] [address] [place] [address] Hematocrit (Bld) [Volume fraction] 42.2 % Normal 37.0-47.0 [facility] Comment on above: Performed By: #### V ITB1, ZINC #### [facility] [address] [place] [address] #### B12, FOL, CMP, PREALB, ANDREZ, CBCD #### [facility] [address] [place] [address] Hemoglobin (Bld) [Mass/Vol] 14.0 g/dL Normal 12.0-16.0 [facility] Comment on above: Performed By: #### V ITB1, ZINC #### [facility] [address] [place] [address] #### B12, FOL, CMP, PREALB, ANDREZ, CBCD #### [facility] [address] [place] [address] IG # 0.0 10*3/uL Normal 0.0-0.1 [facility] Comment on above: Performed By: #### V ITB1, ZINC #### [facility] [address] [place] [address] #### B12, FOL, CMP, PREALB, ANDREZ, CBCD #### [facility] [address] [place] [address] IG % 0.2 % Normal 0.0-1.0 [facility] Comment on above: Performed By: #### V ITB1, ZINC #### [facility] [address] [place] [address] #### B12, FOL, CMP, PREALB, ANDREZ, CBCD #### [facility] [address] [place] [address] Lymphocytes (Bld) [#/Vol] 3.4 10*3/uL Normal 1.3-4.4 [facility] Comment on above: Performed By: #### V ITB1, ZINC #### [facility] [address] [place] [address] #### B12, FOL, CMP, PREALB, ANDREZ, CBCD #### [facility] [address] [place] [address] Lymphocytes/100 WBC (Bld) 53.6 % High 27.0-41.0 [facility] Comment on above: Performed By: #### V ITB1, ZINC #### [facility] [address] [place] [address] #### B12, FOL, CMP, PREALB, ANDREZ, CBCD #### [facility] [address] [place] [address]88 MCV (RBC) [Entitic vol] 88.5 fL Normal 81.0-99.0 [facility] Comment on above: Performed By: #### V ITB1, ZINC #### [facility] [address] [place] [address] #### B12, FOL, CMP, PREALB, ANDREZ, CBCD #### [facility] [address] [place] [address] MEAN CORPUSCULAR HGB 29.4 pg Normal 27.0-31.0 [facility] Comment on above: Performed By: #### V ITB1, ZINC #### [facility] [address] #### B12, FOL, CMP, PREALB, ANDREZ, CBCD #### [facility] [address] [place] [address]21 MEAN CORPUSCULAR HGB CONC 33.2 g/dl Normal 33.0-37.0 [facility] Comment on above: Performed By: #### V ITB1, ZINC #### [facility] [address] [place] [address] #### B12, FOL, CMP, PREALB, ANDREZ, CBCD #### [facility] [address] [place] [address]365 Monocytes (Bld) [#/Vol] 0.3 10*3/uL Normal 0.1-1.0 [facility] Comment on above: Performed By: #### V ITB1, ZINC #### [facility] [address] [place] [address] #### B12, FOL, CMP, PREALB, ANDREZ, CBCD #### [facility] [address] [place] [address] 32403 Monocytes/100 WBC (Bld) 4.8 % Normal 3.0-9.0 [facility] Comment on above: Performed By: #### V ITB1, ZINC #### [facility] [address] [place] [address] #### B12, FOL, CMP, PREALB, ANDREZ, CBCD #### [facility] [address] [place] [address]4570 Neutrophils (Bld) [#/Vol] 2.2 10*3/uL Low 2.3-7.9 [facility] Comment on above: Performed By: #### V ITB1, ZINC #### [facility] [address] [place] [address] #### B12, FOL, CMP, PREALB, ANDREZ, CBCD #### [facility] [address] [place] [address] 57947 Neutrophils/100 WBC (Bld) 34.8 % Low 47.0-73.0 [facility] Comment on above: Performed By: #### V ITB1, ZINC #### [facility] [address] [place] [address] #### B12, FOL, CMP, PREALB, ANDREZ, CBCD #### [facility] [address] [place] [address] 76755 NUCLEATED RED BLOOD CELL 0.0 10*3/uL Normal 0.0-0.0 [facility] Comment on above: Performed By: #### V ITB1, ZINC #### [facility] [address] [place] [address] #### B12, FOL, CMP, PREALB, ANDREZ, CBCD #### [facility] [address] [place] [address] 33670 NUCLEATED RED BLOOD CELL 0.0 % Normal 0.0-0.0 [facility] Comment on above: Performed By: #### V ITB1, ZINC #### [facility] [address] [place] [address] #### B12, FOL, CMP, PREALB, ANDREZ, CBCD #### [facility] [address] [place] [address] 53695 PLATELET COUNT AUTOMATED 265 10*3/uL Normal 130-400 [facility] Comment on above: Performed By: #### V ITB1, ZINC #### [facility] [address] [place] [address] #### B12, FOL, CMP, PREALB, ANDREZ, CBCD #### [facility] [address] [place] [address] 38766 Platelet mean volume (Bld) [Entitic vol] 11.3 fL Normal 9.6-12.3 [facility] Comment on above: Performed By: #### V ITB1, ZINC #### [facility] [address] [place] [address] #### B12, FOL, CMP, PREALB, ANDREZ, CBCD #### [facility] [address] [place] [address] RBC (Bld) [#/Vol] 4.77 10*6/uL Normal 4.10-5.10 [facility] Comment on above: Performed By: #### V ITB1, ZINC #### [facility] [address] [place] [address] #### B12, FOL, CMP, PREALB, ANDREZ, CBCD #### [facility] [address] [place] [address] RED CELL DISTRI WIDTH 13.9 % Normal 0-14.5 [facility] Comment on above: Performed By: #### V ITB1, ZINC #### [facility] [address] [place] [address] #### B12, FOL, CMP, PREALB, ANDREZ, CBCD #### [facility] [address] [place] [address] 57879 WBC (Bld) [#/Vol] 6.3 10*3/uL Normal 4.8-10.8 [facility] Comment on above: Performed By: #### V ITB1, ZINC #### [facility] [address] [place] [address] #### B12, FOL, CMP, PREALB, ANDREZ, CBCD #### [facility] [address] [place] [address] COMPREHENSIVE METABOLIC PANE Evan 12-03-2022 Albumin [Mass/Vol] 4.0 g/dL Normal 3.4-5.0 [facility] Comment on above: Performed By: #### V ITB1, ZINC #### [facility] [address] [place] [address] #### B12, FOL, CMP, PREALB, ANDREZ, CBCD #### [facility] [address] [place] [address] 66859 ALP [Catalytic activity/Vol] 69 U/L Normal 46-116 [facility] Comment on above: Performed By: #### V ITB1, ZINC #### [facility] [address] #### B12, FOL, CMP, PREALB, ANDREZ, CBCD #### [facility] [address] [place] [address] 16107 ALT [Catalytic activity/Vol] 79 U/L High 10-49 [facility] Comment on above: Performed By: #### V ITB1, ZINC #### [facility] [address] [place] [address] #### B12, FOL, CMP, PREALB, ANDREZ, CBCD #### [facility] [address] [place] [address] 49893 AST [Catalytic activity/Vol] 31 U/L Normal 0-34 [facility] Comment on above: Performed By: #### V ITB1, ZINC #### [facility] [address] [place] [address] #### B12, FOL, CMP, PREALB, ANDREZ, CBCD #### [facility] [address] [place] [address] 76886 Bilirubin [Mass/Vol] 0.4 mg/dL Normal 0.3-1.2 [facility] Comment on above: Performed By: #### V ITB1, ZINC #### [facility] [address] [place] [address] #### B12, FOL, CMP, PREALB, ANDREZ, CBCD #### [facility] [address] [place] [address] 74969 CALCIUM,TOTAL 9.1 md/dL Normal 8.7-10.4 [facility] Comment on above: Performed By: #### V ITB1, ZINC #### [facility] [address] [place] [address] #### B12, FOL, CMP, PREALB, ANDREZ, CBCD #### [facility] [address] [place] [address] Chloride [Moles/Vol] 109 mmol/L High 98-107 [facility] Comment on above: Performed By: #### V ITB1, ZINC #### [facility] [address] [place] [address] #### B12, FOL, CMP, PREALB, ANDREZ, CBCD #### [facility] [address] [place] [address] CO2 [Moles/Vol] 25 mmol/L Normal 20-31 [facility] Comment on above: Performed By: #### V ITB1, ZINC #### [facility] [address] [place] [address] #### B12, FOL, CMP, PREALB, ANDREZ, CBCD #### [facility] [address] [place] [address] Creatinine [Mass/Vol] 0.56 mg/dL Normal 0.55-1.02 [facility] Comment on above: Performed By: #### V ITB1, ZINC #### [facility] [address] [place] [address] #### B12, FOL, CMP, PREALB, ANDREZ, CBCD #### [facility] [address] [place] [address] EST GLOM FILT > 60 Normal [facility] Comment on above: Result Comment: [...] #### V ITB1, ZINC #### [facility] [address] [place] [address] #### B12, FOL, CMP, PREALB, ANDREZ, CBCD #### [facility] [address] [place] [address] ESTIMATED GLOM FILT RATE > 60 Normal [facility] Comment on above: Performed By: #### V ITB1, ZINC #### [facility] [address] [place] [address] #### B12, FOL, CMP, PREALB, ANDREZ, CBCD #### [facility] [address] [place] [address]720 Glucose [Mass/Vol] 103 mg/dL High 65-99 [facility] Comment on above: Performed By: #### V ITB1, ZINC #### [facility] [address] [place] [address] #### B12, FOL, CMP, PREALB, ANDREZ, CBCD #### [facility] [address] [place] [address] 63179 Potassium [Moles/Vol] 3.8 mmol/L Normal 3.4-5.1 [facility] Comment on above: Performed By: #### V ITB1, ZINC #### [facility] [address] [place] [address] #### B12, FOL, CMP, PREALB, ANDREZ, CBCD #### [facility] [address] [place] [address] Protein [Mass/Vol] 6.7 g/dL Normal 6.0-8.0 [facility] Comment on above: Performed By: #### V ITB1, ZINC #### [facility] [address] [place] [address] #### B12, FOL, CMP, PREALB, ANDREZ, CBCD #### [facility] [address] [place] [address] Sodium [Moles/Vol] 141 mmol/L Normal 136-145 [facility] Comment on above: Performed By: #### V ITB1, ZINC #### [facility] [address] [place] [address] #### B12, FOL, CMP, PREALB, ANDREZ, CBCD #### [facility] [address] [place] [address] Urea nitrogen [Mass/Vol] 10 mg/dL Normal 9-23 [facility] Comment on above: Performed By: #### V ITB1, ZINC #### [facility] [address] [place] [address] #### B12, FOL, CMP, PREALB, ANDREZ, CBCD #### [facility] [address] [place] [address] [id number] 12-03-2022 ESTIMATED AVERAGE GLUCOSE 94 Normal [facility] Comment on above: Performed By: #### V ITB1, ZINC #### [facility] [address] [place] [address] #### B12, FOL, CMP, PREALB, ANDREZ, CBCD #### [facility] [address] [place] [address] HbA1c (Bld) [Mass fraction] 4.9 % Normal 4.8-5.6 [facility] Comment on above: Result Comment: Standarization of method based on National Glycohemoglobin Standardization Program (NGSP). HEMOGLOBIN A1c(%) DEGREE of GLUCOSE CONTROL 5.7-6.4% Prediabetes range >6.4% Diagnosis of Diabetes <7% Glycemic control for adults with Diabetes Performed By: #### V ITB1, ZINC #### [facility] [address] [place] [address] #### B12, FOL, CMP, PREALB, ANDREZ, CBCD #### [facility] [address] [place] [address] INSULINon 12-03-2022 INSULIN 14.2 mU/L Normal 2.6-37.6 [facility] Comment on above: Performed By: #### V ITB1, ZINC #### [facility] [address] [place] [address] #### B12, FOL, CMP, PREALB, ANDREZ, CBCD #### [facility] [address] [place] [address] 73742 LIPID PANEL CHOLESTEROL/HDLo n 12-03-2022 Cholesterol [Mass/Vol] 113 mg/dL Normal <200 [facility] Comment on above: Performed By: #### V ITB1, ZINC #### [facility] [address] [place] [address] #### B12, FOL, CMP, PREALB, ANDREZ, CBCD #### [facility] [address] [place] [address] 83153 Cholesterol in HDL [Mass/Vol] 26 mg/dL Low 40-60 [facility] Comment on above: Performed By: #### V ITB1, ZINC #### [facility] [address] [place] [address] #### B12, FOL, CMP, PREALB, ANDREZ, CBCD #### [facility] [address] [place] [address] 39938 Cholesterol in LDL [Mass/Vol] 52 mg/dL Normal 9-159 [facility] Comment on above: Performed By: #### V ITB1, ZINC #### [facility] [address] [place] [address] #### B12, FOL, CMP, PREALB, ANDREZ, CBCD #### [facility] [address] [place] [address] 97676 Cholesterol.total/Chol esterol in HDL [Mass ratio] 4.3 {ratio} Normal [facility] Comment on above: Performed By: #### V ITB1, ZINC #### [facility] [address] [place] [address] #### B12, FOL, CMP, PREALB, ANDREZ, CBCD #### [facility] [address] [place] [address] Triglyceride [Mass/Vol] 176 mg/dL High <150 [facility] Comment on above: Result Comment: TRIGLYCERIDE RISK ASSESSMENT: 150-199 mg/dl BORDERLINE HIGH >200 mg//dl HIGH . Performed By: #### V ITB1, ZINC #### [facility] [address] [place] [address] #### B12, FOL, CMP, PREALB, ANDREZ, CBCD #### [facility] [address] [place] [address] VLDL CHOLESTEROL 35 mg/dL Normal 6-40 [facility] Comment on above: Performed By: #### V ITB1, ZINC #### [facility] [address] [place] [address] #### B12, FOL, CMP, PREALB, ANDREZ, CBCD #### [facility] [address] [place] [address] CBC with DIFFERENTIALon 05-0 -2022 Basophils (Bld) [#/Vol] 0.0 10*3/uL Normal 0.0-0.1 [facility] Comment on above: Order Comment: FAX R ESULTS TO DR FLORENCE: [phone] Performed By: #### V ITB1, ZINC #### [facility] [address] [place] [address] #### B12, FOL, CMP, PREALB, ANDREZ, CBCD #### [facility] [address] [place] [address] 02303 Basophils/100 WBC (Bld) 0.3 % Normal 0.0-1.0 [facility] Comment on above: Order Comment: FAX R ESULTS TO DR FLORENCE: [phone] Performed By: #### V ITB1, ZINC #### [facility] [address] [place] [address] #### B12, FOL, CMP, PREALB, ANDREZ, CBCD #### [facility] [address] [place] [address] Eosinophils (Bld) [#/Vol] 0.2 10*3/uL Normal 0.0-0.4 [facility] Comment on above: Order Comment: FAX R ESULTS TO DR FLORENCE: [phone] Performed By: #### V ITB1, ZINC #### [facility] [address] [place] [address] #### B12, FOL, CMP, PREALB, ANDREZ, CBCD #### [facility] [address] [place] [address] Eosinophils/100 WBC (Bld) 3.2 % Normal 1.0-4.0 [facility] Comment on above: Order Comment: FAX R ESULTS TO DR FLORENCE: [phone] Performed By: #### V ITB1, ZINC #### [facility] [address] [place] [address] #### B12, FOL, CMP, PREALB, ANDREZ, CBCD #### [facility] [address] [place] [address] 49093 Hematocrit (Bld) [Volume fraction] 43.8 % Normal 37.0-47.0 [facility] Comment on above: Order Comment: FAX R ESULTS TO DR FLORENCE: [phone] Performed By: #### V ITB1, ZINC #### [facility] [address] [place] [address] #### B12, FOL, CMP, PREALB, ANDREZ, CBCD #### [facility] [address] [place] [address] 54808 Hemoglobin (Bld) [Mass/Vol] 14.3 g/dL Normal 12.0-16.0 [facility] Comment on above: Order Comment: FAX R ESULTS TO DR FLORENCE: [phone] Performed By: #### V ITB1, ZINC #### [facility] [address] [place] [address] #### B12, FOL, CMP, PREALB, ANDREZ, CBCD #### [facility] [address] [place] [address] IG # 0.1 10*3/uL Normal 0.0-0.1 [facility] Comment on above: Order Comment: FAX R ESULTS TO DR FLORENCE: [phone] Performed By: #### V ITB1, ZINC #### [facility] [address] [place] [address] #### B12, FOL, CMP, PREALB, ANDREZ, CBCD #### [facility] [address] [place] [address] IG % 0.7 % Normal 0.0-1.0 [facility] Comment on above: Order Comment: FAX R ESULTS TO DR FLORENCE: [phone] Performed By: #### V ITB1, ZINC #### [facility] [address] [place] [address] #### B12, FOL, CMP, PREALB, ANDREZ, CBCD #### [facility] [address] [place] [address] Lymphocytes (Bld) [#/Vol] 3.5 10*3/uL Normal 1.3-4.4 [facility] Comment on above: Order Comment: FAX R ESULTS TO DR FLORENCE: [phone] Performed By: #### V ITB1, ZINC #### [facility] [address] [place] [address] #### B12, FOL, CMP, PREALB, ANDREZ, CBCD #### [facility] [address] [place] [address] Lymphocytes/100 WBC (Bld) 46.7 % High 27.0-41.0 [facility] Comment on above: Order Comment: FAX R ESULTS TO DR FLORENCE: [phone] Performed By: #### V ITB1, ZINC #### [facility] [address] [place] [address] #### B12, FOL, CMP, PREALB, ANDREZ, CBCD #### [facility] [address] [place] [address] MCV (RBC) [Entitic vol] 88.1 fL Normal 81.0-99.0 [facility] Comment on above: Order Comment: FAX R ESULTS TO DR FLORENCE: [phone] Performed By: #### V ITB1, ZINC #### [facility] [address] [place] [address] #### B12, FOL, CMP, PREALB, ANDREZ, CBCD #### [facility] [address] [place] [address] MEAN CORPUSCULAR HGB 28.8 pg Normal 27.0-31.0 [facility] Comment on above: Order Comment: FAX R ESULTS TO DR FLORENCE: [phone] Performed By: #### V ITB1, ZINC #### [facility] [address] [place] [address] #### B12, FOL, CMP, PREALB, ANDREZ, CBCD #### [facility] [address] [place] [address] MEAN CORPUSCULAR HGB CONC 32.6 g/dl Low 33.0-37.0 [facility] Comment on above: Order Comment: FAX R ESULTS TO DR FLORENCE: [phone] Performed By: #### V ITB1, ZINC #### [facility] [address] [place] [address] #### B12, FOL, CMP, PREALB, ANDREZ, CBCD #### [facility] [address] [place] [address] Monocytes (Bld) [#/Vol] 0.3 10*3/uL Normal 0.1-1.0 [facility] Comment on above: Order Comment: FAX R ESULTS TO DR FLORENCE: [phone] Performed By: #### V ITB1, ZINC #### [facility] [address] [place] [address] #### B12, FOL, CMP, PREALB, ANDREZ, CBCD #### [facility] [address] [place] [address] Monocytes/100 WBC (Bld) 4.3 % Normal 3.0-9.0 [facility] Comment on above: Order Comment: FAX R ESULTS TO DR FLORENCE: [phone] Performed By: #### V ITB1, ZINC #### [facility] [address] [place] [address] #### B12, FOL, CMP, PREALB, ANDREZ, CBCD #### [facility] [address] [place] [address] Neutrophils (Bld) [#/Vol] 3.4 10*3/uL Normal 2.3-7.9 [facility] Comment on above: Order Comment: FAX R ESULTS TO DR FLORENCE: [phone] Performed By: #### V ITB1, ZINC #### [facility] [address] [place] [address] #### B12, FOL, CMP, PREALB, ANDREZ, CBCD #### [facility] [address] [place] [address] Neutrophils/100 WBC (Bld) 44.8 % Low 47.0-73.0 [facility] Comment on above: Order Comment: FAX R ESULTS TO DR FLORENCE: [phone] Performed By: #### V ITB1, ZINC #### [facility] [address] [place] [address] #### B12, FOL, CMP, PREALB, ANDREZ, CBCD #### [facility] [address] [place] [address] NUCLEATED RED BLOOD CELL 0.0 10*3/uL Normal 0.0-0.0 [facility] Comment on above: Order Comment: FAX R ESULTS TO DR FLORENCE: Performed By: #### V ITB1, ZINC #### [facility] [address] [place] [address] #### B12, FOL, CMP, PREALB, ANDREZ, CBCD #### [facility] [address] [place] [address] NUCLEATED RED BLOOD CELL 0.0 % Normal 0.0-0.0 [facility] Comment on above: Order Comment: FAX R ESULTS TO DR FLORENCE: Performed By: #### V ITB1, ZINC #### [facility] [address] [place] [address] #### B12, FOL, CMP, PREALB, ANDREZ, CBCD #### [facility] [address] [place] [address] PLATELET COUNT AUTOMATED 347 10*3/uL Normal 130-400 [facility] Comment on above: Order Comment: FAX R ESULTS TO DR FLORENCE: Performed By: #### V ITB1, ZINC #### [facility] [address] [place] [address] #### B12, FOL, CMP, PREALB, ANDREZ, CBCD #### [facility] [address] [place] [address] Platelet mean volume (Bld) [Entitic vol] 9.9 fL Normal 9.6-12.3 [facility] Comment on above: Order Comment: FAX R ESULTS TO DR FLORENCE: Performed By: #### V ITB1, ZINC #### [facility] [address] [place] [address] #### B12, FOL, CMP, PREALB, ANDREZ, CBCD #### [facility] [address] [place] [address] RBC (Bld) [#/Vol] 4.97 10*6/uL Normal 4.10-5.10 [facility] Comment on above: Order Comment: FAX R ESULTS TO DR FLORENCE: Performed By: #### V ITB1, ZINC #### [facility] [address] [place] [address] #### B12, FOL, CMP, PREALB, ANDREZ, CBCD #### [facility] [address] [place] [address] RED CELL DISTRI WIDTH 13.2 % Normal 0-14.5 [facility] Comment on above: Order Comment: FAX R ESULTS TO DR FLORENCE: Performed By: #### V ITB1, ZINC #### [facility] [address] [place] [address] #### B12, FOL, CMP, PREALB, ANDREZ, CBCD #### [facility] [address] [place] [id number] WBC (Bld) [#/Vol] 7.5 10*3/uL Normal 4.8-10.8 [place] [facility] Comment on above: Order Comment: FAX R ESULTS TO DR FLORENCE: [phone] Performed By: #### V ITB1, ZINC #### [facility] [address] [place] [address] #### B12, FOL, CMP, PREALB, ANDREZ, CBCD #### [facility] [address] [place] [address] COMPREHENSIVE METABOLIC PANE Evan 11-06-2022 Albumin [Mass/Vol] 4.2 g/dL Normal 3.4-5.0 [facility] Comment on above: Order Comment: FAX R ESULTS TO DR FLORENCE: [phone] Performed By: #### V ITB1, ZINC #### [facility] [address] [place] [address] #### B12, FOL, CMP, PREALB, ANDREZ, CBCD #### [facility] [address] [place] [address] ALP [Catalytic activity/Vol] 59 U/L Normal 46-116 [facility] Comment on above: Order Comment: FAX R ESULTS TO DR FLORENCE: Performed By: #### V ITB1, ZINC #### [facility] [address] [place] [address] #### B12, FOL, CMP, PREALB, ANDREZ, CBCD #### [facility] [address] [place] [address] ALT [Catalytic activity/Vol] 30 U/L Normal 10-49 [facility] Comment on above: Order Comment: FAX R ESULTS TO DR FLORENCE: Performed By: #### V ITB1, ZINC #### [facility] [address] [place] [address] #### B12, FOL, CMP, PREALB, ANDREZ, CBCD #### [facility] [address] [place] [address] AST [Catalytic activity/Vol] 20 U/L Normal 0-34 [facility] Comment on above: Order Comment: FAX R ESULTS TO DR FLORENCE: Performed By: #### V ITB1, ZINC #### [facility] [address] [place] [address] #### B12, FOL, CMP, PREALB, ANDREZ, CBCD #### [facility] [address] [place] [address] Bilirubin [Mass/Vol] 0.5 mg/dL Normal 0.3-1.2 [facility] Comment on above: Order Comment: FAX R ESULTS TO DR FLORENCE: Performed By: #### V ITB1, ZINC #### [facility] [address] [place] [address] #### B12, FOL, CMP, PREALB, ANDREZ, CBCD #### [facility] [address] [place] [address] CALCIUM,TOTAL 9.3 md/dL Normal 8.7-10.4 [facility] Comment on above: Order Comment: FAX R ESULTS TO DR FLORENCE: Performed By: #### V ITB1, ZINC #### [facility] [address] [place] [address] #### B12, FOL, CMP, PREALB, ANDREZ, CBCD #### [facility] [address] [place] [address] Chloride [Moles/Vol] 103 mmol/L Normal 98-107 [facility] Comment on above: Order Comment: FAX R ESULTS TO DR FLORENCE: [phone] Performed By: #### V ITB1, ZINC #### [facility] [address] [place] [address] #### B12, FOL, CMP, PREALB, ANDREZ, CBCD #### [facility] [address] [place] [address] CO2 [Moles/Vol] 23 mmol/L Normal 20-31 [facility] Comment on above: Order Comment: FAX R ESULTS TO DR FLORENCE: [phone] Performed By: #### V ITB1, ZINC #### [facility] [address] [place] [address] #### B12, FOL, CMP, PREALB, ANDREZ, CBCD #### [facility] [address] [place] [address] Creatinine [Mass/Vol] 0.58 mg/dL Normal 0.55-1.02 [facility] Comment on above: Order Comment: FAX R ESULTS TO DR FLORENCE: [phone] Performed By: #### V ITB1, ZINC #### [facility] [address] [place] [address] #### B12, FOL, CMP, PREALB, ANDREZ, CBCD #### [facility] [address] [place] [address] EST GLOM FILT > 60 Normal [facility] Comment on above: Order Comment: FAX R ESULTS TO DR FLORENCE: [phone] Result Comment: Result Units: mL/min/1.73 m2 Note: [...] #### V ITB1, ZINC #### [facility] [address] [place] [address] #### B12, FOL, CMP, PREALB, ANDREZ, CBCD #### [facility] [address] [place] [address] ESTIMATED GLOM FILT RATE > 60 Normal [facility] Comment on above: Order Comment: FAX R ESULTS TO DR FLORENCE: [phone] Performed By: #### V ITB1, ZINC #### [facility] [address] [place] [address] #### B12, FOL, CMP, PREALB, ANDREZ, CBCD #### [facility] [address] [place] [address] Glucose [Mass/Vol] 92 mg/dL Normal 65-99 [facility] Comment on above: Order Comment: FAX R ESULTS TO DR FLORENCE: [phone] Performed By: #### V ITB1, ZINC #### [facility] [address] [place] [address] #### B12, FOL, CMP, PREALB, ANDREZ, CBCD #### [facility] [address] [place] [address] Potassium [Moles/Vol] 3.9 mmol/L Normal 3.4-5.1 [facility] Comment on above: Order Comment: FAX R ESULTS TO DR FLORENCE: [phone] Performed By: #### V ITB1, ZINC #### [facility] [address] [place] [address] #### B12, FOL, CMP, PREALB, ANDREZ, CBCD #### [facility] [address] [place] [address] Protein [Mass/Vol] 7.3 g/dL Normal 6.0-8.0 [facility] Comment on above: Order Comment: FAX R ESULTS TO DR FLORENCE: [phone] Performed By: #### V ITB1, ZINC #### [facility] [address] [place] [address] #### B12, FOL, CMP, PREALB, ANDREZ, CBCD #### [facility] [address] [place] [address] Sodium [Moles/Vol] 137 mmol/L Normal 136-145 [facility] Comment on above: Order Comment: FAX R ESULTS TO DR FLORENCE: [phone] Performed By: #### V ITB1, ZINC #### [facility] [address] [place] [address] #### B12, FOL, CMP, PREALB, ANDREZ, CBCD #### [facility] [address] [place] [address] Urea nitrogen [Mass/Vol] 12 mg/dL Normal 9-23 [facility] Comment on above: Order Comment: FAX R ESULTS TO DR FLORENCE: [phone] Performed By: #### V ITB1, ZINC #### [facility] [address] [place] [address] #### B12, FOL, CMP, PREALB, ANDREZ, CBCD #### [facility] [address] [place] [address] Basic Metabolic Panelon 05-0 Anion gap [Moles/Vol] 11 mmol/L Normal 7-[address] [facility] Calcium [Mass/Vol] 8.9 mg/dL Normal 8.6-10.2 [facility] Chloride [Moles/Vol] 104 mmol/L Normal 98-107 [facility] CO2 [Moles/Vol] 25 mmol/L Normal 22-29 [facility] Creatinine [Mass/Vol] 0.6 mg/dL Normal 0.5-1.[address] [facility] GFR Calculated >60 Normal >=60 [facility] Comment on above: Result Comment: [...] Glucose [Mass/Vol] 117 mg/dL High 74-99 [facility] Potassium [Moles/Vol] 4.3 mmol/L Normal 3.5-5.[address] [facility] Sodium [Moles/Vol] 140 mmol/L Normal 132-146 [facility] Urea nitrogen [Mass/Vol] 13 mg/dL Normal 6-20 [facility] Basic metabolic 2000 panelon 10-30-2022 Anion gap [Moles/Vol] 11 mmol/L 7 - 16 mmol/L [facility] Calcium [Mass/Vol] 8.9 mg/dL 8.6 - 10. 2 mg/dL [facility] Chloride [Moles/Vol] 104 mmol/L 98 - 10 7 mmol/L [facility] CO2 [Moles/Vol] 25 mmol/L 22 - 29 mmol/L [facility] Creatinine [Mass/Vol] 0.6 mg/dL 0.5 - 1.0 mg/dL [facility] GFR/1.73 sq M.predicted among non-blacks MDRD (S/P/Bld) [Vol rate/Area] mL/min/1.73 60 - PINF mL/min/1.73 [facility] Comment on above: Pediatric calculator link https://www.kidney.org/professionals/kdoqi/gfr_calculatorped [...] 117 mg/dL High 74 - 99 mg/dL [facility] Potassium [Moles/Vol] 4.3 mmol/L 3.5 - 5.0 mmol/L [facility] Sodium [Moles/Vol] 140 mmol/L 132 - 146 mmol/L [facility] Urea nitrogen [Mass/Vol] 13 mg/dL 6 - 20 mg/dL [facility] CBC With Platelet and Differ entialon 10-30-2022 Abs Imm Granulocytes 0.07 E9/L Normal [facility] Absolute Basophils 0.01 E9/L Normal 0.00-0.20 [facility] Absolute Eosinophils 0.00 E9/L Low 0.05-0.50 [facility] Absolute Lymphocytes 1.89 E9/L Normal 1.50-4.00 [facility] Absolute Monocytes 0.73 E9/L Normal 0.10-0.95 [facility] Absolute Neutrophils 9.02 E9/L High 1.80-7.30 [facility] Basophils/100 WBC (Bld) 0.1 % Normal 0.0-2.0 [facility] Eosinophils/100 WBC (Bld) 0.0 % Normal 0.0-6.0 [facility] Hematocrit (Bld) [Volume fraction] 38.2 % Normal 34.0-48.0 [facility] Hemoglobin (Bld) [Mass/Vol] 12.2 g/dL Normal 11.5-15.5 [facility] Imm Granulocytes 0.6 % Normal 0.0-5.0 [facility] Lymphocytes/100 WBC (Bld) 16.1 % Low 20.0-42.0 [facility] MCH (RBC) [Entitic mass] 29.2 pg Normal 26.0-35.0 [facility] MCHC 31.9 % Low 32.0-34.5 [facility] MCV (RBC) [Entitic vol] 91.4 fL Normal 80.0-99.9 [facility] Monocytes/100 WBC (Bld) 6.2 % Normal 2.0-12.0 [facility] Neutrophils/100 WBC (Bld) 77.0 % Normal 43.0-80.0 [facility] Platelet Count 285 E9/L Normal 130-450 [facility] Platelet mean volume (Bld) [Entitic vol] 10.4 fL Normal 7.0-12.0 [facility] RBC 4.18 E12/L Normal 3.50-5.50 [facility] RDW 13.2 fL Normal 11.5-15.0 [facility] WBC 11.7 E9/L High 4.5-11.5 [facility] CBC with Auto Differentialon 10-30-2022 Basophils (Bld) [#/Vol] 0.01 10*3/uL [facility] Basophils/100 WBC (Bld) 0.1 % 0.0 - 2.0 % [facility] Eosinophils (Bld) [#/Vol] 0.00 10*3/uL Low [facility] Eosinophils/100 WBC (Bld) 0 % 0.0 - 6.0 % [facility] Erythrocyte distribution width (RBC) [Ratio] 13.2 fL 11.5 - 15.0 fL [facility] Hematocrit (Bld) [Volume fraction] 38.2 % 34.0 - 48.0 % [facility] Hemoglobin (Bld) [Mass/Vol] 12.2 g/dL 11.5 - 15.5 g/dL [facility] Immature granulocytes (Bld) [#/Vol] 0.07 10*3/uL E9/L [facility] Immature granulocytes/100 WBC (Bld) 0.6 % 0.0 - 5.0 % [facility] Interpretation and review of laboratory results Abnormal [facility] Lymphocytes (Bld) [#/Vol] 1.89 10*3/uL [facility] Lymphocytes/100 WBC (Bld) 16.1 % Low 20.0 - 42.0 % [facility] MCH (RBC) [Entitic mass] 29.2 pg 26.0 - 35.0 pg [facility] MCHC (RBC) [Mass/Vol] 31.9 % Low 32.0 - 34.5 % [facility] MCV (RBC) [Entitic vol] 91.4 fL 80.0 - 99.9 fL [facility] Monocytes (Bld) [#/Vol] 0.73 10*3/uL [facility] Monocytes/100 WBC (Bld) 6.2 % 2.0 - 12.0 % [facility] Neutrophils (Bld) [#/Vol] 9.02 10*3/uL High [facility] Platelet mean volume (Bld) [Entitic vol] 10.4 fL 7.0 - 12.0 fL [facility] Platelets (Bld) [#/Vol] 285 10*3/uL [facility] RBC (Bld) [#/Vol] 4.18 10*6/uL [facility] Segmented neutrophils/100 WBC (Bld) 77.0 % 43.0 - 80.0 % [facility] WBC (Bld) [#/Vol] 11.7 10*3/uL High [facility] Hepatic Function Panelon Albumin [Mass/Vol] 3.7 g/dL 3.5 - 5.2 g/dL [facility] ALP [Catalytic activity/Vol] 55 U/L 35 - 104 U/L [facility] ALT [Catalytic activity/Vol] 19 U/L 0 - 32 U/L [facility] AST [Catalytic activity/Vol] 14 U/L 0 - 31 U/L [facility] Bilirubin [Mass/Vol] 0.5 mg/dL 0.0 - 1 .2 mg/dL [facility] Bilirubin.direct [Mass/Vol] mg/dL 0.0 - 0.3 mg/dL [facility] Bilirubin.indirect [Mass/Vol] see below 0.0 - 1.0 mg/dL [facility] Comment on above: Indirect Bilirubin c annot be calculated since Total Bilirubin and/or Direct Bilirubin is below measurable range. Protein [Mass/Vol] 6.3 g/dL Low 6.4 - 8.3 g/dL [facility] Hgb A1Con 10-30-2022 HbA1c (Bld) [Mass fraction] 4.8 % Normal 4.0-5.6 [facility] Lipid Panelon 10-30-2022 Cholesterol [Mass/Vol] 99 mg/dL Normal 0-199 [facility] Cholesterol in HDL [Mass/Vol] 34 mg/dL Normal >40 [facility] Cholesterol in LDL [Mass/Vol] 43 mg/dL Normal 0-99 [facility] Triglyceride [Mass/Vol] 108 mg/dL Normal 0-149 [facility] VLDL Cholesterol (Calculated) 22 mg/dL Normal [facility] Cholesterol [Mass/Vol] 99 mg/dL 0 - 1 99 mg/dL [facility] Cholesterol in HDL [Mass/Vol] 34 mg/dL 40 - PINF mg/dL [facility] Cholesterol in LDL [Mass/Vol] 43 mg/dL 0 - 99 mg/dL [facility] Cholesterol in VLDL [Mass/Vol] 22 mg/dL [facility] Triglyceride [Mass/Vol] 108 mg/dL 0 - 149 mg/dL [facility] Liver Panelon 10-30-2022 Albumin [Mass/Vol] 3.7 g/dL Normal 3.5-5.2 [facility] ALP [Catalytic activity/Vol] 55 U/L Normal 35-104 [facility] ALT [Catalytic activity/Vol] 19 U/L Normal 0-32 [facility] AST [Catalytic activity/Vol] 14 U/L Normal 0-31 [facility] Bilirubin [Mass/Vol] 0.5 mg/dL Normal 0.0-1.2 [facility] Bilirubin Indirect see below Normal 0.0-1.0 [facility] Comment on above: Result Comment: Grace rect Bilirubin cannot be calculated since Total Bilirubin and/or Direct Bilirubin is below measurable range. Bilirubin.indirect [Mass/Vol] mg/dL Normal 0.0-0.3 [facility] Protein [Mass/Vol] 6.3 g/dL Low 6.4-8.3 [facility] METER GLUCOSEon 10-30-2022 Glucose [Mass/Vol] 111 mg/dL High 74-99 [facility] Magnesiumon 10-30-2022 Magnesium [Mass/Vol] 1.7 mg/dL Normal 1.6-2.6 [facility] Magnesium [Mass/Vol] 1.7 mg/dL 1.6 - 2 .6 mg/dL [facility] No Panel Informationon 10-30 Interpretation and review of laboratory results Abnormal [facility] POCT Glucoseon 10-30-2022 Glucose [Mass/Vol] 111 mg/dL High 74 - 99 mg/dL [facility] Interpretation and review of laboratory results Abnormal [facility] Phosphoruson 10-30-2022 Phosphate [Mass/Vol] 4.0 mg/dL Normal 2.5-4.5 [facility] Phosphate [Mass/Vol] 4.0 mg/dL 2.5 - 4 .5 mg/dL [facility] T4, Freeon 10-30-2022 Free T4 [Mass/Vol] 1.32 ng/dL 0.93 - 1. 70 ng/dL [facility] TSHon 10-30-2022 TSH [Mass/Vol] 0.828 [facility] TSH w/out Reflexon TSH w/out Reflex 0.828 uIU/mL Normal 0.270-4.200 [facility] Thyroxine Freeon 10-30-2022 Thyroxine Free 1.32 ng/dL Normal 0.93-1.70 [facility] Comprehensive Metabolic Pane evan 10-29-2022 Potassium see note Critically abnormal 3.5-5.0 [facility] Comment on above: Result Comment: Lisa cui order. Made no charge to patient for testing Corrected result; previously reported as 4.3 on 10/24/2022 at 19:57 by CRIAM Hemoglobin A1con 10-29-2022 HbA1c (Bld) [Mass fraction] 5.1 % 4.0 - 5.6 % [facility] Hgb A1Con 10-29-2022 HbA1c (Bld) [Mass fraction] 5.1 % Normal 4.0-5.6 [facility] METER GLUCOSEon 10-29-2022 Glucose [Mass/Vol] 128 mg/dL High 74-99 [facility] Glucose [Mass/Vol] 146 mg/dL High 74-99 [facility] Glucose [Mass/Vol] 104 mg/dL High 74-99 [facility] Glucose [Mass/Vol] 101 mg/dL High 74-99 [facility] No Panel Informationon 10-29 [facility] POC Urine Qualon 0 10-29-2022 Beta HCG ( test) Ql (U) Negative Negative [facility] [employer] Work Phone: Beta HCG ( test) Ql (U) [id number] [facility] Work Phone: Negative QC Pass/Fail Pass [facility] [employer] Work Phone: Positive QC Pass/Fail Pass [facility] Work Phone: POCT Glucoseon 10-29-2022 Glucose [Mass/Vol] 128 mg/dL High 74 - 99 mg/dL [facility] Interpretation and review of laboratory results Abnormal [facility] Glucose [Mass/Vol] 146 mg/dL High 74 - 99 mg/dL [facility] Interpretation and review of laboratory results Abnormal [facility] Glucose [Mass/Vol] 104 mg/dL High 74 - 99 mg/dL [facility] Interpretation and review of laboratory results Abnormal [facility] Glucose [Mass/Vol] 101 mg/dL High 74 - 99 mg/dL [facility] Interpretation and review of laboratory results Abnormal [facility] Surgical Specimenon 10-30-19 23 Surgical Specimen [facility] [address] [id number] FINAL SURGICAL PATHOLOGY REPORT NAME: BATOOL KINGSLEY Date of 10/29/2022 Collection: Medical Record [id number] Date of 10/29/2022 Number: Receipt: Age: 22 Y Sex: F Date 10/31/2022 12:02 Reported: Date Of : 2000 [facility] [id number] Admitting DERIC FLORENCE Number: Physician: Patient DIS [id number] Ordering DERIC FLORENCE Location: Physician: Accession Number: [...] of hanson haq mucosal lined fibrous tissue, employee representative or portions of small bowel which measures 4.1 x 2.5 x 1.7 cm. Much of the exterior is covered by hanson haq, soft to finely folded mucosa. Numerous, small metallic surgical [place] are present throughout the exterior. Discrete mucosal lesions are not present. Sectioning is unremarkable. Piercer sections are submitted. Block label A1. (JORGE L:TAURUS) CODES: [id number]; Department of Pathology Page 1 of 1 Normal [facility] CBC (Hemogram)on 10-24-2022 Erythrocyte distribution width (RBC) [Ratio] 13.7 fL 11.5 - 15.0 fL [facility] Hematocrit (Bld) [Volume fraction] 43.9 % 34.0 - 48.0 % [facility] Hemoglobin (Bld) [Mass/Vol] 14.3 g/dL 11.5 - 15.5 g/dL [facility] MCH (RBC) [Entitic mass] 28.9 pg 26.0 - 35.0 pg [facility] MCHC (RBC) [Mass/Vol] 32.6 % 32.0 - 34.5 % [facility] MCV (RBC) [Entitic vol] 88.9 fL 80.0 - 99.9 fL [facility] Platelet mean volume (Bld) [Entitic vol] 10.6 fL 7.0 - 12.0 fL [facility] Platelets (Bld) [#/Vol] 321 10*3/uL [facility] RBC (Bld) [#/Vol] 4.94 10*6/uL [facility] WBC (Bld) [#/Vol] 7.0 10*3/uL [facility] CBC With Platelet No Differe ntialon 10-24-2022 Hematocrit (Bld) [Volume fraction] 43.9 % Normal 34.0-48.0 [facility] Hemoglobin (Bld) [Mass/Vol] 14.3 g/dL Normal 11.5-15.5 [facility] MCH (RBC) [Entitic mass] 28.9 pg Normal 26.0-35.0 [facility] MCHC 32.6 % Normal 32.0-34.5 [facility] MCV (RBC) [Entitic vol] 88.9 fL Normal 80.0-99.9 [facility] Platelet Count 321 E9/L Normal 130-450 [facility] Platelet mean volume (Bld) [Entitic vol] 10.6 fL Normal 7.0-12.0 [facility] RBC 4.94 E12/L Normal 3.50-5.50 [facility] RDW 13.7 fL Normal 11.5-15.0 [facility] WBC 7.0 E9/L Normal 4.5-11.5 [facility] Comprehensive Metabolic Pane l reflex Mgon 10-24-2022 Albumin [Mass/Vol] 4.6 g/dL Normal 3.5-5.2 [facility] ALP [Catalytic activity/Vol] 69 U/L Normal 35-104 [facility] ALT [Catalytic activity/Vol] 27 U/L Normal 0-32 [facility] Anion gap [Moles/Vol] 12 mmol/L Normal 7-[address] [facility] AST [Catalytic activity/Vol] 16 U/L Normal 0-31 [facility] Bilirubin [Mass/Vol] 0.4 mg/dL Normal 0.0-1.2 [facility] Calcium [Mass/Vol] 9.3 mg/dL Normal 8.6-10.2 [facility] Chloride [Moles/Vol] 104 mmol/L Normal 98-107 [facility] CO2 [Moles/Vol] 24 mmol/L Normal 22-29 [facility] Creatinine [Mass/Vol] 0.6 mg/dL Normal 0.5-1.[address] [facility] GFR Calculated >60 Normal >=60 [facility] Comment on above: Result Comment: [...] Glucose [Mass/Vol] 79 mg/dL Normal 74-99 [facility] Magnesium [Moles/Vol] 4.3 mmol/L Normal 3.5-5.[address] [facility] Protein [Mass/Vol] 7.6 g/dL Normal 6.4-8.3 [facility] Sodium [Moles/Vol] 140 mmol/L Normal 132-146 [facility] Urea nitrogen [Mass/Vol] 13 mg/dL Normal 6-20 [facility] Comprehensive metabolic 2000 panelon 10-24-2022 Potassium [Moles/Vol] 4.3 mmol/L 3.5 - 5.0 mmol/L [facility] Albumin [Mass/Vol] 4.6 g/dL 3.5 - 5.2 g/dL [facility] ALP [Catalytic activity/Vol] 69 U/L 35 - 104 U/L [facility] ALT [Catalytic activity/Vol] 27 U/L 0 - 32 U/L [facility] Anion gap [Moles/Vol] 12 mmol/L 7 - 16 mmol/L [facility] AST [Catalytic activity/Vol] 16 U/L 0 - 31 U/L [facility] Bilirubin [Mass/Vol] 0.4 mg/dL 0.0 - 1 .2 mg/dL [facility] Calcium [Mass/Vol] 9.3 mg/dL 8.6 - 10. 2 mg/dL [facility] Chloride [Moles/Vol] 104 mmol/L 98 - 10 7 mmol/L [facility] CO2 [Moles/Vol] 24 mmol/L 22 - 29 mmol/L [facility] Creatinine [Mass/Vol] 0.6 mg/dL 0.5 - 1.0 mg/dL [facility] GFR/1.73 sq M.predicted among non-blacks MDRD (S/P/Bld) [Vol rate/Area] mL/min/1.73 60 - PINF mL/min/1.73 [facility] Comment on above: Pediatric calculator link https://www.kidney.org/professionals/kdoqi/gfr_calculatorped [...] [Mass/Vol] 79 mg/dL 74 - 99 mg/dL [facility] Potassium [Moles/Vol] 4.3 mmol/L 3.5 - 5.0 mmol/L [facility] Protein [Mass/Vol] 7.6 g/dL 6.4 - 8.3 g/dL [facility] Sodium [Moles/Vol] 140 mmol/L 132 - 146 mmol/L [facility] Urea nitrogen [Mass/Vol] 13 mg/dL 6 - 20 mg/dL [facility] ACT PARTIAL THROMBO TIMEon 0 - ACT PARTIAL THROMBO TIME 30.4 SECONDS Normal 20.0-32.1 [facility] Comment on above: Result Comment: APTT THERAPEUTIC RANGE = 43.6 TO 68.4 SECONDS Performed By: #### V ITB1, ZINC #### [facility] [address] [place] [address] #### B12, FOL, CMP, PREALB, ANDREZ, CBCD #### [facility] [address] [place] [address] CBC with DIFFERENTIALon 04-0 Basophils (Bld) [#/Vol] 0.0 10*3/uL Normal 0.0-0.1 [facility] Comment on above: Performed By: #### V ITB1, ZINC #### [facility] [address] [place] [address] #### B12, FOL, CMP, PREALB, ANDREZ, CBCD #### [facility] [address] [place] [address] Basophils/100 WBC (Bld) 0.5 % Normal 0.0-1.0 [facility] Comment on above: Performed By: #### V ITB1, ZINC #### [facility] [address] [place] [address] #### B12, FOL, CMP, PREALB, ANDREZ, CBCD #### [facility] [address] [place] [address] Eosinophils (Bld) [#/Vol] 0.3 10*3/uL Normal 0.0-0.4 [facility] Comment on above: Performed By: #### V ITB1, ZINC #### [facility] [address] [place] [address] #### B12, FOL, CMP, PREALB, ANDREZ, CBCD #### [facility] [address] [place] [address] Eosinophils/100 WBC (Bld) 4.1 % High 1.0-4.0 [facility] Comment on above: Performed By: #### V ITB1, ZINC #### [facility] [address] [place] [address] #### B12, FOL, CMP, PREALB, ANDREZ, CBCD #### [facility] [address] [place] [address] Hematocrit (Bld) [Volume fraction] 40.6 % Normal 37.0-47.0 [facility] Comment on above: Performed By: #### V ITB1, ZINC #### [facility] [address] [place] [address] #### B12, FOL, CMP, PREALB, ANDREZ, CBCD #### [facility] [address] [place] [address] Hemoglobin (Bld) [Mass/Vol] 13.2 g/dL Normal 12.0-16.0 [facility] Comment on above: Performed By: #### V ITB1, ZINC #### [facility] [address] [place] [address] #### B12, FOL, CMP, PREALB, ANDREZ, CBCD #### [facility] [address] [place] [address] IG # 0.0 10*3/uL Normal 0.0-0.1 [facility] Comment on above: Performed By: #### V ITB1, ZINC #### [facility] [address] [place] [address] #### B12, FOL, CMP, PREALB, ANDREZ, CBCD #### [facility] [address] [place] [address] IG % 0.5 % Normal 0.0-1.0 [facility] Comment on above: Performed By: #### V ITB1, ZINC #### [facility] [address] [place] [address] #### B12, FOL, CMP, PREALB, ANDREZ, CBCD #### [facility] [address] [place] [address] Lymphocytes (Bld) [#/Vol] 3.2 10*3/uL Normal 1.3-4.4 [facility] Comment on above: Performed By: #### V ITB1, ZINC #### [facility] [address] [place] [address] #### B12, FOL, CMP, PREALB, ANDREZ, CBCD #### [facility] [address] [place] [id number] Lymphocytes/100 WBC (Bld) 41.8 % High 27.0-41.0 [facility] Comment on above: Performed By: #### V ITB1, ZINC #### [facility] [address] [place] [address] #### B12, FOL, CMP, PREALB, ANDREZ, CBCD #### [facility] [address] [place] [address] MCV (RBC) [Entitic vol] 88.6 fL Normal 81.0-99.0 [facility] Comment on above: Performed By: #### V ITB1, ZINC #### [facility] [address] [place] [address] #### B12, FOL, CMP, PREALB, ANDREZ, CBCD #### [facility] [address] [place] [address] 040[address] MEAN CORPUSCULAR HGB 28.8 pg Normal 27.0-31.0 [facility] Comment on above: Performed By: #### V ITB1, ZINC #### [facility] [address] [place] [address] #### B12, FOL, CMP, PREALB, ANDREZ, CBCD #### [facility] [address] [place] [address] 45557 MEAN CORPUSCULAR HGB CONC 32.5 g/dl Low 33.0-37.0 [facility] Comment on above: Performed By: #### V ITB1, ZINC #### [facility] [address] [place] [address] #### B12, FOL, CMP, PREALB, ANDREZ, CBCD #### [facility] [address] [place] [address] 43242 Monocytes (Bld) [#/Vol] 0.4 10*3/uL Normal 0.1-1.0 [facility] Comment on above: Performed By: #### V ITB1, ZINC #### [facility] [address] [place] [address] #### B12, FOL, CMP, PREALB, ANDREZ, CBCD #### [facility] [address] [place] [address] 11338 Monocytes/100 WBC (Bld) 5.1 % Normal 3.0-9.0 [facility] Comment on above: Performed By: #### V ITB1, ZINC #### [facility] [address] [place] [address] #### B12, FOL, CMP, PREALB, ANDREZ, CBCD #### [facility] [address] [place] [address] 47669 Neutrophils (Bld) [#/Vol] 3.7 10*3/uL Normal 2.3-7.9 [facility] Comment on above: Performed By: #### V ITB1, ZINC #### [facility] [address] [place] [address] #### B12, FOL, CMP, PREALB, ANDREZ, CBCD #### [facility] [address] [place] [address] 23513 Neutrophils/100 WBC (Bld) 48.0 % Normal 47.0-73.0 [facility] Comment on above: Performed By: #### V ITB1, ZINC #### [facility] [address] [place] [address] #### B12, FOL, CMP, PREALB, ANDREZ, CBCD #### [facility] [address] [place] [address] 79854 NUCLEATED RED BLOOD CELL 0.0 10*3/uL Normal 0.0-0.0 [facility] Comment on above: Performed By: #### V ITB1, ZINC #### [facility] [address] [place] [address] #### B12, FOL, CMP, PREALB, ANDREZ, CBCD #### [facility] [address] [place] [address] 75533 NUCLEATED RED BLOOD CELL 0.0 % Normal 0.0-0.0 [facility] Comment on above: Performed By: #### V ITB1, ZINC #### [facility] [address] [place] [address] #### B12, FOL, CMP, PREALB, ANDREZ, CBCD #### [facility] [address] [place] [address] 04887 PLATELET COUNT AUTOMATED 300 10*3/uL Normal 130-400 [facility] Comment on above: Performed By: #### V ITB1, ZINC #### [facility] [address] [place] [address] #### B12, FOL, CMP, PREALB, ANDREZ, CBCD #### [facility] [address] [place] [address] Platelet mean volume (Bld) [Entitic vol] 10.7 fL Normal 9.6-12.3 [facility] Comment on above: Performed By: #### V ITB1, ZINC #### [facility] [address] [place] [address] #### B12, FOL, CMP, PREALB, ANDREZ, CBCD #### [facility] [address] [place] [address] 78306 RBC (Bld) [#/Vol] 4.58 10*6/uL Normal 4.10-5.10 [facility] Comment on above: Performed By: #### V ITB1, ZINC #### [facility] [address] [place] [address] #### B12, FOL, CMP, PREALB, ANDREZ, CBCD #### [facility] [address] [place] [address] 56627 RED CELL DISTRI WIDTH 13.3 % Normal 0-14.5 [facility] Comment on above: Performed By: #### V ITB1, ZINC #### [facility] [address] [place] [address] #### B12, FOL, CMP, PREALB, ANDREZ, CBCD #### [facility] [address] [place] [address] WBC (Bld) [#/Vol] 7.6 10*3/uL Normal 4.8-10.8 [facility] Comment on above: Performed By: #### V ITB1, ZINC #### [facility] [address] [place] [address] #### B12, FOL, CMP, PREALB, ANDREZ, CBCD #### [facility] [address] [place] [address] COMPREHENSIVE METABOLIC PANE Evan 10-04-2022 Albumin [Mass/Vol] 3.8 g/dL Normal 3.4-5.0 [facility] Comment on above: Performed By: #### V ITB1, ZINC #### [facility] [address] [place] [address] #### B12, FOL, CMP, PREALB, ANDREZ, CBCD #### [facility] [address] [place] [address] ALP [Catalytic activity/Vol] 63 U/L Normal 46-116 [facility] Comment on above: Performed By: #### V ITB1, ZINC #### [facility] [address] [place] [address] #### B12, FOL, CMP, PREALB, ANDREZ, CBCD #### [facility] [address] [place] [address] ALT [Catalytic activity/Vol] 18 U/L Normal 10-49 [facility] Comment on above: Performed By: #### V ITB1, ZINC #### [facility] [address] [place] [address] #### B12, FOL, CMP, PREALB, ANDREZ, CBCD #### [facility] [address] [place] [address] 53634 AST [Catalytic activity/Vol] 15 U/L Normal 0-34 [facility] Comment on above: Performed By: #### V ITB1, ZINC #### [facility] [address] [place] [address] #### B12, FOL, CMP, PREALB, ANDREZ, CBCD #### [facility] [address] [place] [address] 65054 Bilirubin [Mass/Vol] 0.3 mg/dL Normal 0.3-1.2 [facility] Comment on above: Performed By: #### V ITB1, ZINC #### [facility] [address] [place] [address] #### B12, FOL, CMP, PREALB, ANDREZ, CBCD #### [facility] [address] [place] [address] CALCIUM,TOTAL 9.2 md/dL Normal 8.7-10.4 [facility] Comment on above: Performed By: #### V ITB1, ZINC #### [facility] [address] [place] [address] #### B12, FOL, CMP, PREALB, ANDREZ, CBCD #### [facility] [address] [place] [address] Chloride [Moles/Vol] 105 mmol/L Normal 98-107 [facility] Comment on above: Performed By: #### V ITB1, ZINC #### [facility] [address] [place] [address] #### B12, FOL, CMP, PREALB, ANDREZ, CBCD #### [facility] [address] [place] [address] 97920 CO2 [Moles/Vol] 27 mmol/L Normal 20-31 [facility] Comment on above: Performed By: #### V ITB1, ZINC #### [facility] [address] [place] [address] #### B12, FOL, CMP, PREALB, ANDREZ, CBCD #### [facility] [address] [place] [address] Creatinine [Mass/Vol] 0.61 mg/dL Normal 0.55-1.02 [facility] Comment on above: Performed By: #### V ITB1, ZINC #### [facility] [address] [place] [address] #### B12, FOL, CMP, PREALB, ANDREZ, CBCD #### [facility] [address] [place] [address] EST GLOM FILT > 60 Normal [facility] Comment on above: Result Comment: [...] #### V ITB1, ZINC #### [facility] [address] [place] [address] #### B12, FOL, CMP, PREALB, ANDREZ, CBCD #### [facility] [address] [place] [address] 66539 ESTIMATED GLOM FILT RATE > 60 Normal [facility] Comment on above: Performed By: #### V ITB1, ZINC #### [facility] [address] [place] [address] #### B12, FOL, CMP, PREALB, ANDREZ, CBCD #### [facility] [address] [place] [address] 46739 Glucose [Mass/Vol] 87 mg/dL Normal 65-99 [facility] Comment on above: Performed By: #### V ITB1, ZINC #### [facility] [address] [place] [address] #### B12, FOL, CMP, PREALB, ANDREZ, CBCD #### [facility] [address] [place] [address] 38580 Potassium [Moles/Vol] 4.2 mmol/L Normal 3.4-5.1 [facility] Comment on above: Performed By: #### V ITB1, ZINC #### [facility] [address] [place] [address] #### B12, FOL, CMP, PREALB, ANDREZ, CBCD #### [facility] [address] [place] [address] 12646 Protein [Mass/Vol] 6.9 g/dL Normal 6.0-8.0 [facility] Comment on above: Performed By: #### V ITB1, ZINC #### [facility] [address] [place] [address] #### B12, FOL, CMP, PREALB, ANDREZ, CBCD #### [facility] [address] [place] [address] Sodium [Moles/Vol] 139 mmol/L Normal 136-145 [facility] Comment on above: Performed By: #### V ITB1, ZINC #### [facility] [address] [place] [address] #### B12, FOL, CMP, PREALB, ANDREZ, CBCD #### [facility] [address] [place] [address] Urea nitrogen [Mass/Vol] 14 mg/dL Normal 9-23 [facility] Comment on above: Performed By: #### V ITB1, ZINC #### [facility] [address] [place] [address] #### B12, FOL, CMP, PREALB, ANDREZ, CBCD #### [facility] [address] [place] [address] [id number] 10-04-2022 ESTIMATED AVERAGE GLUCOSE 100 Normal [facility] Comment on above: Performed By: #### V ITB1, ZINC #### [facility] [address] [place] [address] #### B12, FOL, CMP, PREALB, ANDREZ, CBCD #### [facility] [address] [place] [address] HbA1c (Bld) [Mass fraction] 5.1 % Normal 4.8-5.6 [facility] Comment on above: Result Comment: Standarization of method based on National Glycohemoglobin Standardization Program (NGSP). HEMOGLOBIN A1c(%) DEGREE of GLUCOSE CONTROL 5.7-6.4% Prediabetes range >6.4% Diagnosis of Diabetes <7% Glycemic control for adults with Diabetes Performed By: #### V ITB1, ZINC #### [facility] [address] [place] [address] #### B12, FOL, CMP, PREALB, ANDREZ, CBCD #### [facility] [address] [place] [address] 43420 LIPID PANEL CHOLESTEROL/HDLo n 10-04-2022 Cholesterol [Mass/Vol] 122 mg/dL Normal <200 [facility] Comment on above: Performed By: #### V ITB1, ZINC #### [facility] [address] [place] [address] #### B12, FOL, CMP, PREALB, ANDREZ, CBCD #### [facility] [address] [place] [address] 41903 Cholesterol in HDL [Mass/Vol] 28 mg/dL Low 40-60 [facility] Comment on above: Performed By: #### V ITB1, ZINC #### [facility] [address] [place] [address] #### B12, FOL, CMP, PREALB, ANDREZ, CBCD #### [facility] [address] [place] [address] 67304 Cholesterol in LDL [Mass/Vol] 55 mg/dL Normal 9-159 [facility] Comment on above: Performed By: #### V ITB1, ZINC #### [facility] [address] [place] [address] #### B12, FOL, CMP, PREALB, ANDREZ, CBCD #### [facility] [address] [place] [address] 21227 Cholesterol.total/Chol esterol in HDL [Mass ratio] 4.4 {ratio} Normal [facility] Comment on above: Performed By: #### V ITB1, ZINC #### [facility] [address] [place] [address] #### B12, FOL, CMP, PREALB, ANDREZ, CBCD #### [facility] [address] [place] [address] Triglyceride [Mass/Vol] 196 mg/dL High <150 [facility] Comment on above: Result Comment: TRIGLYCERIDE RISK ASSESSMENT: 150-199 mg/dl BORDERLINE HIGH >200 mg//dl HIGH . Performed By: #### V ITB1, ZINC #### [facility] [address] [place] [address] #### B12, FOL, CMP, PREALB, ANDREZ, CBCD #### [facility] [address] [place] [address] 23723 VLDL CHOLESTEROL 39 mg/dL Normal 6-40 [facility] Comment on above: Performed By: #### V ITB1, ZINC #### [facility] [address] [place] [address] #### B12, FOL, CMP, PREALB, ANDREZ, CBCD #### [facility] [address] [place] [address] 79467 THROAT CULTUREon 08-15-2022 Throat culture THROAT CULTURE NORMAL ARIN Normal [facility] Comment on above: Performed By: #### V ITB1, ZINC #### [facility] [address] [place] [address] #### B12, FOL, CMP, PREALB, ANDREZ, CBCD #### [facility] [address] [place] [address] 81273 NOVL CORONAVIRUS NAAon 08-14 SARS-CoV-2 (COVID-19) RNA SUJATA+probe Ql (Unsp spec) Detected Abnormal Not Detected [facility] Comment on above: Result Comment: Evelyn ents who have a positive COVID-19 test result may now have treatment options. Treatment options are available for patients with mild to moderate symptoms and for hospitalized patients. Visit our website at [email or web address] for resources and information. This nucleic acid amplification test was developed and its performance characteristics determined by [employer]. Nucleic acid amplification tests include RT- PCR [...] #### V ITB1, ZINC #### [facility] [address] [place] [address] #### B12, FOL, CMP, PREALB, ANDREZ, CBCD #### [facility] [address] [place] [address] 98170 CBC with DIFFERENTIALon 08-01 Basophils (Bld) [#/Vol] 0.0 10*3/uL Normal 0.0-0.1 [facility] Comment on above: Performed By: #### V ITB1, ZINC #### [facility] [address] [place] [address] #### B12, FOL, CMP, PREALB, ANDREZ, CBCD #### [facility] [address] [place] [address] 93041 Basophils/100 WBC (Bld) 0.5 % Normal 0.0-1.0 [facility] Comment on above: Performed By: #### V ITB1, ZINC #### [facility] [address] [place] [address] #### B12, FOL, CMP, PREALB, ANDREZ, CBCD #### [facility] [address] [place] [address] 37770 Eosinophils (Bld) [#/Vol] 0.2 10*3/uL Normal 0.0-0.4 [facility] Comment on above: Performed By: #### V ITB1, ZINC #### [facility] [address] [place] [address] #### B12, FOL, CMP, PREALB, ANDREZ, CBCD #### [facility] [address] [place] [address] 28957 Eosinophils/100 WBC (Bld) 4.2 % High 1.0-4.0 [facility] Comment on above: Performed By: #### V ITB1, ZINC #### [facility] [address] [place] [address] #### B12, FOL, CMP, PREALB, ANDREZ, CBCD #### [facility] [address] [place] [address] 89858 Hematocrit (Bld) [Volume fraction] 43.8 % Normal 37.0-47.0 [facility] Comment on above: Performed By: #### V ITB1, ZINC #### [facility] [address] [place] [address] #### B12, FOL, CMP, PREALB, ANDREZ, CBCD #### [facility] [address] [place] [address] 37892 Hemoglobin (Bld) [Mass/Vol] 14.0 g/dL Normal 12.0-16.0 [facility] Comment on above: Performed By: #### V ITB1, ZINC #### [facility] [address] [place] [address] #### B12, FOL, CMP, PREALB, ANDREZ, CBCD #### [facility] [address] [place] [address] 52025 IG # 0.1 10*3/uL Normal 0.0-0.1 [facility] Comment on above: Performed By: #### V ITB1, ZINC #### [facility] [address] [place] [address] #### B12, FOL, CMP, PREALB, ANDREZ, CBCD #### [facility] [address] [place] [address] IG % 1.1 % High 0.0-1.0 [facility] Comment on above: Performed By: #### V ITB1, ZINC #### [facility] [address] [place] [address] #### B12, FOL, CMP, PREALB, ANDREZ, CBCD #### [facility] [address] [place] [address] 05028 Lymphocytes (Bld) [#/Vol] 2.9 10*3/uL Normal 1.3-4.4 [facility] Comment on above: Performed By: #### V ITB1, ZINC #### [facility] [address] [place] [address] #### B12, FOL, CMP, PREALB, ANDREZ, CBCD #### [facility] [address] [place] [address] 99860 Lymphocytes/100 WBC (Bld) 51.5 % High 27.0-41.0 [facility] Comment on above: Performed By: #### V ITB1, ZINC #### [facility] [address] [place] [address] #### B12, FOL, CMP, PREALB, ANDREZ, CBCD #### [facility] [address] [place] [address] 85759 MCV (RBC) [Entitic vol] 88.8 fL Normal 81.0-99.0 [facility] Comment on above: Performed By: #### V ITB1, ZINC #### [facility] [address] [place] [address] #### B12, FOL, CMP, PREALB, ANDREZ, CBCD #### [facility] [address] [place] [address] 50010 MEAN CORPUSCULAR HGB 28.4 pg Normal 27.0-31.0 [facility] Comment on above: Performed By: #### V ITB1, ZINC #### [facility] [address] [place] [address] #### B12, FOL, CMP, PREALB, ANDREZ, CBCD #### [facility] [address] [place] [address] 63365 MEAN CORPUSCULAR HGB CONC 32.0 g/dl Low 33.0-37.0 [facility] Comment on above: Performed By: #### V ITB1, ZINC #### [facility] [address] [place] [address] #### B12, FOL, CMP, PREALB, ANDREZ, CBCD #### [facility] [address] [place] [address] 97640 Monocytes (Bld) [#/Vol] 0.4 10*3/uL Normal 0.1-1.0 [facility] Comment on above: Performed By: #### V ITB1, ZINC #### [facility] [address] [place] [address] #### B12, FOL, CMP, PREALB, ANDREZ, CBCD #### [facility] [address] [place] [address] 83956 Monocytes/100 WBC (Bld) 7.0 % Normal 3.0-9.0 [facility] Comment on above: Performed By: #### V ITB1, ZINC #### [facility] [address] [place] [address] #### B12, FOL, CMP, PREALB, ANDREZ, CBCD #### [facility] [address] [place] [address] 71660 Neutrophils (Bld) [#/Vol] 2.0 10*3/uL Low 2.3-7.9 [facility] Comment on above: Performed By: #### V ITB1, ZINC #### [facility] [address] [place] [address] #### B12, FOL, CMP, PREALB, ANDREZ, CBCD #### [facility] [address] [place] [address] 68680 Neutrophils/100 WBC (Bld) 35.7 % Low 47.0-73.0 [facility] Comment on above: Performed By: #### V ITB1, ZINC #### [facility] [address] [place] [address] #### B12, FOL, CMP, PREALB, ANDREZ, CBCD #### [facility] [address] [place] [address] 26440 NUCLEATED RED BLOOD CELL 0.0 10*3/uL Normal 0.0-0.0 [facility] Comment on above: Performed By: #### V ITB1, ZINC #### [facility] [address] [place] [address] #### B12, FOL, CMP, PREALB, ANDREZ, CBCD #### [facility] [address] [place] [address] 93409 NUCLEATED RED BLOOD CELL 0.0 % Normal 0.0-0.0 [facility] Comment on above: Performed By: #### V ITB1, ZINC #### [facility] [address] [place] [address] #### B12, FOL, CMP, PREALB, ANDREZ, CBCD #### [facility] [address] [place] [address] 73232 PLATELET COUNT AUTOMATED 277 10*3/uL Normal 130-400 [facility] Comment on above: Performed By: #### V ITB1, ZINC #### [facility] [address] [place] [address] #### B12, FOL, CMP, PREALB, ANDREZ, CBCD #### [facility] [address] [place] [address] 23328 Platelet mean volume (Bld) [Entitic vol] 10.1 fL Normal 9.6-12.3 [facility] Comment on above: Performed By: #### V ITB1, ZINC #### [facility] [address] [place] [address] #### B12, FOL, CMP, PREALB, ANDREZ, CBCD #### [facility] [address] [place] [address] 26942 RBC (Bld) [#/Vol] 4.93 10*6/uL Normal 4.10-5.10 [facility] Comment on above: Performed By: #### V ITB1, ZINC #### [facility] [address] [place] [address] #### B12, FOL, CMP, PREALB, ANDREZ, CBCD #### [facility] [address] [place] [address] 62951 RED CELL DISTRI WIDTH 13.6 % Normal 0-14.5 [facility] Comment on above: Performed By: #### V ITB1, ZINC #### [facility] [address] [place] [address] #### B12, FOL, CMP, PREALB, ANDREZ, CBCD #### [facility] [address] [place] [address] 97730 WBC (Bld) [#/Vol] 5.7 10*3/uL Normal 4.8-10.8 [facility] Comment on above: Performed By: #### V ITB1, ZINC #### [facility] [address] [place] [address] #### B12, FOL, CMP, PREALB, ANDREZ, CBCD #### [facility] [address] [place] [address] 96378 CHEST (2 V)on 08-13-2022 CRCXR Name: BATOOL KINGSLEY Phys: KAELA ARELLANO CNP : 2000 Age: 22 Sex: F Acct: [id number] Loc: RAD Exam Date: 08/13/2022 Status: REG CLI Radiology No: [id number] Unit No: [id number] EXAM# TYPE/EXAM RESULT [id number] RAD/CHEST (2 V) SEE REPORT INDICATION: Stuffy [...] CC: Technologist: WIN CHRISTIE Transcribed Date/Time: 08/13/2022 (2174) Gold Miner: OSCAR Printed Date/Time: 08/13/2022 (2987) PAGE 1 Signed Report Normal [facility] COMPREHENSIVE METABOLIC PANE Evan 08-13-2022 Albumin [Mass/Vol] 3.7 g/dL Normal 3.4-5.0 [facility] Comment on above: Performed By: #### V ITB1, ZINC #### [facility] [address] #### B12, FOL, CMP, PREALB, ANDREZ, CBCD #### [facility] [address] [place] [address] 96002 ALP [Catalytic activity/Vol] 56 U/L Normal 46-116 [facility] Comment on above: Performed By: #### V ITB1, ZINC #### [facility] [address] [place] [address] #### B12, FOL, CMP, PREALB, ANDREZ, CBCD #### [facility] [address] [place] [address] 43501 ALT [Catalytic activity/Vol] 21 U/L Normal 10-49 [facility] Comment on above: Performed By: #### V ITB1, ZINC #### [facility] [address] [place] [address] #### B12, FOL, CMP, PREALB, ANDREZ, CBCD #### [facility] [address] [place] [address] 00396 AST [Catalytic activity/Vol] 23 U/L Normal 0-34 [facility] Comment on above: Performed By: #### V ITB1, ZINC #### [facility] [address] [place] [address] #### B12, FOL, CMP, PREALB, ANDREZ, CBCD #### [facility] [address] [place] [address] Bilirubin [Mass/Vol] mg/dL Low 0.3-1.2 [facility] Comment on above: Performed By: #### V ITB1, ZINC #### [facility] [address] [place] [address] #### B12, FOL, CMP, PREALB, ANDREZ, CBCD #### [facility] [address] [place] [address] 35635 CALCIUM,TOTAL 9.2 md/dL Normal 8.7-10.4 [facility] Comment on above: Performed By: #### V ITB1, ZINC #### [facility] [address] [place] [address] #### B12, FOL, CMP, PREALB, ANDREZ, CBCD #### [facility] [address] [place] [address] 84519 Chloride [Moles/Vol] 105 mmol/L Normal 98-107 [facility] Comment on above: Performed By: #### V ITB1, ZINC #### [facility] [address] [place] [address] #### B12, FOL, CMP, PREALB, ANDREZ, CBCD #### [facility] [address] [place] [address] 42298 CO2 [Moles/Vol] 25 mmol/L Normal 20-31 [facility] Comment on above: Performed By: #### V ITB1, ZINC #### [facility] [address] [place] [address] #### B12, FOL, CMP, PREALB, ANDREZ, CBCD #### [facility] [address] [place] [address] 15483 Creatinine [Mass/Vol] 0.53 mg/dL Low 0.55-1.02 [facility] Comment on above: Performed By: #### V ITB1, ZINC #### [facility] [address] [place] [address] #### B12, FOL, CMP, PREALB, ANDREZ, CBCD #### [facility] [address] [place] [address] EST GLOM FILT > 60 Normal [facility] Comment on above: Result Comment: [...] #### V ITB1, ZINC #### [facility] [address] [place] [address] #### B12, FOL, CMP, PREALB, ANDREZ, CBCD #### [facility] [address] [place] [address] ESTIMATED GLOM FILT RATE > 60 Normal [facility] Comment on above: Performed By: #### V ITB1, ZINC #### [facility] [address] [place] [address] #### B12, FOL, CMP, PREALB, ANDREZ, CBCD #### [facility] [address] [place] [address] Glucose [Mass/Vol] 81 mg/dL Normal 65-99 [facility] Comment on above: Performed By: #### V ITB1, ZINC #### [facility] [address] [place] [address] #### B12, FOL, CMP, PREALB, ANDREZ, CBCD #### [facility] [address] [place] [address] 25540 Potassium [Moles/Vol] 4.5 mmol/L Normal 3.4-5.1 [facility] Comment on above: Performed By: #### V ITB1, ZINC #### [facility] [address] [place] [address] #### B12, FOL, CMP, PREALB, ANDREZ, CBCD #### [facility] [address] [place] [id number] Protein [Mass/Vol] 7.0 g/dL Normal 6.0-8.0 [facility] Comment on above: Performed By: #### V ITB1, ZINC #### [facility] [address] [place] [address] #### B12, FOL, CMP, PREALB, ANDREZ, CBCD #### [facility] [address] [place] [address] Sodium [Moles/Vol] 138 mmol/L Normal 136-145 [facility] Comment on above: Performed By: #### V ITB1, ZINC #### [facility] [address] [place] [address] #### B12, FOL, CMP, PREALB, ANDREZ, CBCD #### [facility] Laboratory [address] [place] [address] 72102 Urea nitrogen [Mass/Vol] 7 mg/dL Low 9-23 [facility] Comment on above: Performed By: #### V ITB1, ZINC #### [facility] [address] [place] [address] #### B12, FOL, CMP, PREALB, ANDREZ, CBCD #### [facility] Laboratory [address] [place] [address] 45441 ESR (Sed Rate)on 08-13-2022 ESR (Bld) [Velocity] 20 mm/h Normal 0-20 [facility] Comment on above: Performed By: #### V ITB1, ZINC #### [facility] [address] [place] [address] #### B12, FOL, CMP, PREALB, ANDREZ, CBCD #### [facility] Laboratory [address] [place] [address] 04573 CBC with DIFFERENTIALon 07-03 Basophils (Bld) [#/Vol] 0.1 10*3/uL Normal 0.0-0.1 [facility] Comment on above: Performed By: #### C MP, TSH, LIPPAN, HBA1C, CBCD, INS #### [facility] Laboratory [address] [place] [address] 43385 Basophils/100 WBC (Bld) 0.7 % Normal 0.0-1.0 [facility] Comment on above: Performed By: #### C MP, TSH, LIPPAN, HBA1C, CBCD, INS #### [facility] Laboratory [address] [place] [address] 22810 Eosinophils (Bld) [#/Vol] 0.3 10*3/uL Normal 0.0-0.4 [facility] Comment on above: Performed By: #### C MP, TSH, LIPPAN, HBA1C, CBCD, INS #### [facility] Laboratory [address] [place] [address] 37948 Eosinophils/100 WBC (Bld) 4.3 % High 1.0-4.0 [facility] Comment on above: Performed By: #### C MP, TSH, LIPPAN, HBA1C, CBCD, INS #### [facility] Laboratory [address] [place] [address] 90180 Hematocrit (Bld) [Volume fraction] 43.7 % Normal 37.0-47.0 [facility] Comment on above: Performed By: #### C MP, TSH, LIPPAN, HBA1C, CBCD, INS #### [facility] Laboratory [address] [place] [address] 31983 Hemoglobin (Bld) [Mass/Vol] 13.9 g/dL Normal 12.0-16.0 [facility] Comment on above: Performed By: #### C MP, TSH, LIPPAN, HBA1C, CBCD, INS #### [facility] Laboratory [address] [place] [address] 82507 IG # 0.0 10*3/uL Normal 0.0-0.1 [facility] Comment on above: Performed By: #### C MP, TSH, LIPPAN, HBA1C, CBCD, INS #### [facility] Laboratory [address] [place] [address] 96022 IG % 0.4 % Normal 0.0-1.0 [facility] Comment on above: Performed By: #### C MP, TSH, LIPPAN, HBA1C, CBCD, INS #### [facility] Laboratory [address] [place] [address] 91236 Lymphocytes (Bld) [#/Vol] 3.2 10*3/uL Normal 1.3-4.4 [facility] Comment on above: Performed By: #### C MP, TSH, LIPPAN, HBA1C, CBCD, INS #### [facility] Laboratory [address] [place] [address] 07344 Lymphocytes/100 WBC (Bld) 42.7 % High 27.0-41.0 [facility] Comment on above: Performed By: #### C MP, TSH, LIPPAN, HBA1C, CBCD, INS #### [facility] Laboratory [address] [place] [address] 42248 MCV (RBC) [Entitic vol] 90.3 fL Normal 81.0-99.0 [facility] Comment on above: Performed By: #### C MP, TSH, LIPPAN, HBA1C, CBCD, INS #### [facility] Laboratory [address] [place] [address] 43708 MEAN CORPUSCULAR HGB 28.7 pg Normal 27.0-31.0 [facility] Comment on above: Performed By: #### C MP, TSH, LIPPAN, HBA1C, CBCD, INS #### [facility] Laboratory [address] [place] [address] 39930 MEAN CORPUSCULAR HGB CONC 31.8 g/dl Low 33.0-37.0 [facility] Comment on above: Performed By: #### C MP, TSH, LIPPAN, HBA1C, CBCD, INS #### [facility] Laboratory [address] [place] [address] Monocytes (Bld) [#/Vol] 0.4 10*3/uL Normal 0.1-1.0 [facility] Comment on above: Performed By: #### C MP, TSH, LIPPAN, HBA1C, CBCD, INS #### [facility] Laboratory [address] [place] [address] 82075 Monocytes/100 WBC (Bld) 5.4 % Normal 3.0-9.0 [facility] Comment on above: Performed By: #### C MP, TSH, LIPPAN, HBA1C, CBCD, INS #### [facility] Laboratory [address] [place] [address] 16549 Neutrophils (Bld) [#/Vol] 3.4 10*3/uL Normal 2.3-7.9 [facility] Comment on above: Performed By: #### C MP, TSH, LIPPAN, HBA1C, CBCD, INS #### [facility] Laboratory [address] [place] [address] 73799 Neutrophils/100 WBC (Bld) 46.5 % Low 47.0-73.0 [facility] Comment on above: Performed By: #### C MP, TSH, LIPPAN, HBA1C, CBCD, INS #### [facility] Laboratory [address] [place] [address] 84780 NUCLEATED RED BLOOD CELL 0.0 10*3/uL Normal 0.0-0.0 [facility] Comment on above: Performed By: #### C MP, TSH, LIPPAN, HBA1C, CBCD, INS #### [facility] Laboratory [address] [place] [address] 27974 NUCLEATED RED BLOOD CELL 0.0 % Normal 0.0-0.0 [facility] Comment on above: Performed By: #### C MP, TSH, LIPPAN, HBA1C, CBCD, INS #### [facility] [address] [place] [address] PLATELET COUNT AUTOMATED 309 10*3/uL Normal 130-400 [facility] Comment on above: Performed By: #### C MP, TSH, LIPPAN, HBA1C, CBCD, INS #### [facility] [address] [place] [address] Platelet mean volume (Bld) [Entitic vol] 10.3 fL Normal 9.6-12.3 [facility] Comment on above: Performed By: #### C MP, TSH, LIPPAN, HBA1C, CBCD, INS #### [facility] [address] [place] [address] RBC (Bld) [#/Vol] 4.84 10*6/uL Normal 4.10-5.10 [facility] Comment on above: Performed By: #### C MP, TSH, LIPPAN, HBA1C, CBCD, INS #### [facility] [address] [place] [address] RED CELL DISTRI WIDTH 13.5 % Normal 0-14.5 [facility] Comment on above: Performed By: #### C MP, TSH, LIPPAN, HBA1C, CBCD, INS #### [facility] [address] [place] [address] WBC (Bld) [#/Vol] 7.4 10*3/uL Normal 4.8-10.8 [facility] Comment on above: Performed By: #### C MP, TSH, LIPPAN, HBA1C, CBCD, INS #### [facility] [address] [place] [address] COMPREHENSIVE METABOLIC PANE Evan 07-31-2022 Albumin [Mass/Vol] 3.9 g/dL Normal 3.4-5.0 [facility] Comment on above: Performed By: #### V ITB1, ZINC #### [facility] [address] [place] [address] #### B12, FOL, CMP, PREALB, ANDREZ, CBCD #### [facility] [address] [place] [address] ALP [Catalytic activity/Vol] 60 U/L Normal 46-116 [facility] Comment on above: Performed By: #### V ITB1, ZINC #### [facility] [address] [place] [address] #### B12, FOL, CMP, PREALB, ANDREZ, CBCD #### [facility] Laboratory [address] [place] [address] 20809 ALT [Catalytic activity/Vol] 23 U/L Normal 10-49 [facility] Comment on above: Performed By: #### V ITB1, ZINC #### [facility] [address] [place] [address] #### B12, FOL, CMP, PREALB, ANDREZ, CBCD #### [facility] [address] [place] [address] 44425 AST [Catalytic activity/Vol] 17 U/L Normal 0-34 [facility] Comment on above: Performed By: #### V ITB1, ZINC #### [facility] [address] [place] [address] #### B12, FOL, CMP, PREALB, ANDREZ, CBCD #### [facility] [address] [place] [address] 22825 Bilirubin [Mass/Vol] 0.3 mg/dL Normal 0.3-1.2 [facility] Comment on above: Performed By: #### V ITB1, ZINC #### [facility] [address] [place] [address] #### B12, FOL, CMP, PREALB, ANDREZ, CBCD #### [facility] [address] [place] [address] 59168 CALCIUM,TOTAL 9.6 md/dL Normal 8.7-10.4 [facility] Comment on above: Performed By: #### V ITB1, ZINC #### [facility] [address] [place] [address] #### B12, FOL, CMP, PREALB, ANDREZ, CBCD #### [facility] [address] [place] [address] Chloride [Moles/Vol] 102 mmol/L Normal 98-107 [facility] Comment on above: Performed By: #### V ITB1, ZINC #### [facility] [address] [place] [address] #### B12, FOL, CMP, PREALB, ANDREZ, CBCD #### [facility] [address] [place] [address] CO2 [Moles/Vol] 27 mmol/L Normal 20-31 [facility] Comment on above: Performed By: #### V ITB1, ZINC #### [facility] [address] [place] [address] #### B12, FOL, CMP, PREALB, ANDREZ, CBCD #### [facility] [address] [place] [address] Creatinine [Mass/Vol] 0.58 mg/dL Normal 0.55-1.02 [facility] Comment on above: Performed By: #### V ITB1, ZINC #### [facility] [address] [place] [address] #### B12, FOL, CMP, PREALB, ANDREZ, CBCD #### [facility] [address] [place] [address] EST GLOM FILT > 60 Normal [facility] Comment on above: Result Comment: [...] #### V ITB1, ZINC #### [facility] [address] [place] [address] #### B12, FOL, CMP, PREALB, ANDREZ, CBCD #### [facility] [address] [place] [address] 28740 ESTIMATED GLOM FILT RATE > 60 Normal [facility] Comment on above: Performed By: #### V ITB1, ZINC #### [facility] [address] [place] [address] #### B12, FOL, CMP, PREALB, ANDREZ, CBCD #### [facility] [address] [place] [address] 61796 Glucose [Mass/Vol] 73 mg/dL Normal 65-99 [facility] Comment on above: Performed By: #### V ITB1, ZINC #### [facility] [address] [place] [address] #### B12, FOL, CMP, PREALB, ANDREZ, CBCD #### [facility] [address] [place] [address] 90064 Potassium [Moles/Vol] 4.2 mmol/L Normal 3.4-5.1 [facility] Comment on above: Performed By: #### V ITB1, ZINC #### [facility] [address] [place] [address] #### B12, FOL, CMP, PREALB, ANDREZ, CBCD #### [facility] [address] [place] [address] 91830 Protein [Mass/Vol] 7.2 g/dL Normal 6.0-8.0 [facility] Comment on above: Performed By: #### V ITB1, ZINC #### [facility] [address] [place] [address] #### B12, FOL, CMP, PREALB, ANDREZ, CBCD #### [facility] [address] [place] [address] 11816 Sodium [Moles/Vol] 137 mmol/L Normal 136-145 [facility] Comment on above: Performed By: #### V ITB1, ZINC #### [facility] [address] [place] [address] #### B12, FOL, CMP, PREALB, ANDREZ, CBCD #### [facility] [address] [place] [address] Urea nitrogen [Mass/Vol] 11 mg/dL Normal 9-23 [facility] Comment on above: Performed By: #### V ITB1, ZINC #### [facility] [address] [place] [address] #### B12, FOL, CMP, PREALB, ANDREZ, CBCD #### [facility] [address] [place] [address] 60507 [id number] 07-31-2022 ESTIMATED AVERAGE GLUCOSE 100 Normal [facility] Comment on above: Performed By: #### V ITB1, ZINC #### [facility] [address] [place] [address] #### B12, FOL, CMP, PREALB, ANDREZ, CBCD #### [facility] [address] [place] [address] 50480 HbA1c (Bld) [Mass fraction] 5.1 % Normal 4.8-5.6 [facility] Comment on above: Result Comment: Standarization of method based on National Glycohemoglobin Standardization Program (NGSP). HEMOGLOBIN A1c(%) DEGREE of GLUCOSE CONTROL 5.7-6.4% Prediabetes range >6.4% Diagnosis of Diabetes <7% Glycemic control for adults with Diabetes Performed By: #### V ITB1, ZINC #### [facility] [address] [place] [address] #### B12, FOL, CMP, PREALB, ANDREZ, CBCD #### [facility] [address] [place] [address] INSULINon 07-31-2022 INSULIN 45.6 mU/L High 2.6-37.6 [facility] Comment on above: Performed By: #### V ITB1, ZINC #### [facility] [address] [place] [address] #### B12, FOL, CMP, PREALB, ANDREZ, CBCD #### [facility] [address] [place] [address] LIPID PANEL CHOLESTEROL/HDLo n 07-31-2022 Cholesterol [Mass/Vol] 170 mg/dL Normal <200 [facility] Comment on above: Performed By: #### V ITB1, ZINC #### [facility] [address] [place] [address] #### B12, FOL, CMP, PREALB, ANDREZ, CBCD #### [facility] [address] [place] [address] Cholesterol in HDL [Mass/Vol] 31 mg/dL Low 40-60 [facility] Comment on above: Performed By: #### V ITB1, ZINC #### [facility] [address] [place] [address] #### B12, FOL, CMP, PREALB, ANDREZ, CBCD #### [facility] [address] [place] [address] 04079 Cholesterol in LDL [Mass/Vol] 73 mg/dL Normal 9-159 [facility] Comment on above: Performed By: #### V ITB1, ZINC #### [facility] [address] [place] [address] #### B12, FOL, CMP, PREALB, ANDREZ, CBCD #### [facility] [address] [place] [address] Cholesterol.total/Chol esterol in HDL [Mass ratio] 5.5 {ratio} Normal [facility] Comment on above: Performed By: #### V ITB1, ZINC #### [facility] [address] [place] [address] #### B12, FOL, CMP, PREALB, ANDREZ, CBCD #### [facility] [address] [place] [address] Triglyceride [Mass/Vol] 328 mg/dL High <150 [facility] Comment on above: Result Comment: TRIGLYCERIDE RISK ASSESSMENT: 150-199 mg/dl BORDERLINE HIGH >200 mg//dl HIGH . Performed By: #### V ITB1, ZINC #### [facility] [address] [place] [address] #### B12, FOL, CMP, PREALB, ANDREZ, CBCD #### [facility] [address] [place] [address] VLDL CHOLESTEROL 66 mg/dL High 6-40 [facility] Comment on above: Performed By: #### V ITB1, ZINC #### [facility] [address] [place] [address] #### B12, FOL, CMP, PREALB, ANDREZ, CBCD #### [facility] [address] [place] [address] THYROID STIM HORMONE (HS)on 07-31-2022 THYROID STIM HORMONE (HS) 2.569 uIU/ml Normal 0.550-4.780 [facility] Comment on above: Performed By: #### V ITB1, ZINC #### [facility] [address] [place] [address] #### B12, FOL, CMP, PREALB, ANDREZ, CBCD #### [facility] [address] [place] [address] NICOTINE METABOLITE, QUANTon 07-19-2022 COTININE <1.0 Normal . [facility] Comment on above: Order Comment: FAX T O [phone] Result Comment: This test was developed and its performance characteristics determined by [facility]. It has not been cleared or approved by the Food and Drug Administration. Cotinine levels greater than 20.0 are consistent with the use of tobacco or tobacco cessation products. Performed at: [facility] [address], [place], [place] [id number] Brake Mechanic: Estuardo Michelle MD, Phone: [phone] Performed By: #### N ICOTINE #### [facility] [address] [place] [address] NICOTINE <1.0 Normal . [facility] Comment on above: Order Comment: FAX T O [phone] Result Comment: This test was developed and its performance characteristics determined by [facility]. It has not been cleared or approved by the Food and Drug Administration. Nicotine levels greater than 2.0 are consistent with the use of tobacco or tobacco cessation products. Performed By: #### N ICOTINE #### [facility] [address] [place] [address] HIPS BILATERAL (2V)on 2021 [facility] Name: BATOOL KINGSLEY Phys: LASHAWN WELLS NP : 2000 Age: 22 Sex: F Acct: [id number] Loc: RAD Exam Date: 06/14/2022 Status: REG CLI Radiology No: [id number] Unit No: [id number] EXAM# TYPE/EXAM RESULT [id number] RAD/HIPS BILATERAL (2V) SEE REPORT INDICATION: Sharp [...] NP Technologist: Eugene Wagner Transcribed Date/Time: 06/14/2022 (7467) Gold Miner: OSCAR Printed Date/Time: 06/14/2022 (8441) PAGE 1 Signed Report Normal [facility] Vitamin B1 (Thiamine), Whole Bloodon 05-09-2022 Vitamin B1, Whole Blood 116 nmol/L Normal 70-180 [facility] Comment on above: Result Comment: INTE RPRETIVE INFORMATION: Vitamin B1, Whole Blood This assay measures the concentration of thiamine diphosphate (TDP), the primary active form of vitamin B1. Approximately 90 percent of vitamin B1 present in whole blood is TDP. Thiamine and thiamine monophosphate, which comprise the remaining 10 percent, are not measured. This test was developed and its performance characteristics determined by [facility]. It has not been cleared or approved by the [place] Food and Drug Administration. This test was performed in a CLIA certified laboratory and is intended for clinical purposes. Performed By: [facility] [address] [place] [address] Software Consultant: Francisco Javier Zhang MD, PhD Performed By: #### 8 [id number] ####[facility] Reference [id number] [place] [address] Zinc, Serumon 05-07-2022 Zinc, Serum 75.6 ug/dL Normal 60.0-120.0 [facility] Comment on above: Result Comment: INTE RPRETIVE [...] developed and its performance characteristics determined by [employer]. It has not been cleared or approved by the US Food and Drug Administration. This test was performed in a CLIA certified laboratory and is intended for clinical purposes. Performed By: [facility] [address] [place], [place] [id number] Software Consultant: Francisco Javier Zhang MD, PhD Performed By: #### 2 0097 #### [facility] Reference Lab [address] [place], [place] [id number] [facility] Glucose [Mass/Vol] 96 mg/dL [facility] [employer] Work Phone: QC OK? [facility] Work Phone: CBCon 05-04-2022 Hematocrit (Bld) [Volume fraction] 40.4 % 34.0 - 48.0 % [facility] Hemoglobin (Bld) [Mass/Vol] 13.2 g/dL 11.5 - 15.5 g/dL [facility] MCH (RBC) [Entitic mass] 29.9 pg 26.0 - 35.0 pg [facility] MCHC (RBC) [Mass/Vol] 32.7 % 32.0 - 34.5 % [facility] MCV (RBC) [Entitic vol] 91.6 fL 80.0 - 99.9 fL [facility] Platelet distribution width (Bld) [Ratio] 13.0 fL 11.5 - 15.0 fL [facility] Platelet mean volume (Bld) [Entitic vol] 9.8 fL 7.0 - 12.0 fL [facility] Platelets (Bld) [#/Vol] 313 10*3/uL [facility] RBC (Bld) [#/Vol] 4.41 10*6/uL [facility] WBC (Bld) [#/Vol] 9.2 10*3/uL [facility] CBC With Platelet No Differe ntialon 05-04-2022 Hematocrit (Bld) [Volume fraction] 40.4 % Normal 34.0-48.0 [facility] Hemoglobin (Bld) [Mass/Vol] 13.2 g/dL Normal 11.5-15.5 [facility] MCH (RBC) [Entitic mass] 29.9 pg Normal 26.0-35.0 [facility] MCHC 32.7 % Normal 32.0-34.5 [facility] MCV (RBC) [Entitic vol] 91.6 fL Normal 80.0-99.9 [facility] Platelet Count 313 E9/L Normal 130-450 [facility] Platelet mean volume (Bld) [Entitic vol] 9.8 fL Normal 7.0-12.0 [facility] RBC 4.41 E12/L Normal 3.50-5.50 [facility] RDW 13.0 fL Normal 11.5-15.0 [facility] WBC 9.2 E9/L Normal 4.5-11.5 [facility] Cholesterolon 05-04-2022 Cholesterol [Mass/Vol] 162 mg/dL Normal 0-199 [facility] Cholesterol, Totalon 022 Cholesterol [Mass/Vol] 162 mg/dL 0 - 1 99 mg/dL [facility] Comprehensive Metabolic Pane evan 05-04-2022 Albumin [Mass/Vol] 4.1 g/dL Normal 3.5-5.2 [facility] ALP [Catalytic activity/Vol] 64 U/L Normal 35-104 [facility] ALT [Catalytic activity/Vol] 22 U/L Normal 0-32 [facility] Anion gap [Moles/Vol] 10 mmol/L Normal 7-[address] [facility] AST [Catalytic activity/Vol] 13 U/L Normal 0-31 [facility] Bilirubin [Mass/Vol] 0.2 mg/dL Normal 0.0-1.2 [facility] Calcium [Mass/Vol] 8.9 mg/dL Normal 8.6-10.2 [facility] Chloride [Moles/Vol] 102 mmol/L Normal 98-107 [facility] CO2 [Moles/Vol] 25 mmol/L Normal 22-29 [facility] Creatinine [Mass/Vol] 0.7 mg/dL Normal 0.5-1.[address] [facility] GFR Calculated >60 Normal >=60 [facility] Comment on above: Result Comment: [...] Glucose [Mass/Vol] 96 mg/dL Normal 74-99 [facility] Potassium [Moles/Vol] 4.5 mmol/L Normal 3.5-5.0 [facility] Protein [Mass/Vol] 6.9 g/dL Normal 6.4-8.3 [facility] Sodium [Moles/Vol] 137 mmol/L Normal 132-146 [facility] Urea nitrogen [Mass/Vol] 17 mg/dL Normal 6-20 [facility] Albumin [Mass/Vol] 4.1 g/dL 3.5 - 5.2 g/dL [facility] ALP (Bld) [Catalytic activity/Vol] 64 U/L 35 - 104 U/L [facility] ALT [Catalytic activity/Vol] 22 U/L 0 - 32 U/L [facility] Anion gap [Moles/Vol] 10 mmol/L 7 - 16 mmol/L [facility] AST [Catalytic activity/Vol] 13 U/L 0 - 31 U/L [facility] Bilirubin [Mass/Vol] 0.2 mg/dL 0.0 - 1 .2 mg/dL [facility] Calcium [Mass/Vol] 8.9 mg/dL 8.6 - 10. 2 mg/dL [facility] Chloride [Moles/Vol] 102 mmol/L 98 - 10 7 mmol/L [facility] CO2 [Moles/Vol] 25 mmol/L 22 - 29 mmol/L [facility] Creatinine [Mass/Vol] 0.7 mg/dL 0.5 - 1.0 mg/dL [facility] GFR/1.73 sq M.predicted MDRD (S/P/Bld) [Vol rate/Area] mL/min/1.73 60 - PINF mL/min/1.73 [facility] Comment on above: Pediatric calculator link https://www.kidney.org/professionals/kdoqi/gfr_calculatorped [...] [Mass/Vol] 96 mg/dL 74 - 99 mg/dL [facility] Potassium [Moles/Vol] 4.5 mmol/L 3.5 - 5.0 mmol/L [facility] Protein [Mass/Vol] 6.9 g/dL 6.4 - 8.3 g/dL [facility] Sodium [Moles/Vol] 137 mmol/L 132 - 146 mmol/L [facility] [employer] Urea nitrogen (BldV) [Mass/Vol] 17 mg/dL 6 - 20 mg/dL [facility] Ferritinon 05-04-2022 Ferritin [Mass/Vol] 69 ng/mL Normal [facility] Comment on above: Result Comment: FERR ITIN Reference Ranges: Adult Males 20 - 60 years: 30 - 400 ng/mL Adult females 17 - 60 years: 13 - 150 ng/mL Adults greater than 60 years: no established reference range Pediatrics: no established reference range Folateon 05-04-2022 Folate 8.5 ng/mL Normal 4.8-24.2 [facility] Hgb A1Con 05-04-2022 HbA1c (Bld) [Mass fraction] 5.7 % High 4.0-5.6 [facility] METER GLUCOSEon 05-04-2022 Glucose [Mass/Vol] 93 mg/dL Normal 74-99 [facility] Glucose [Mass/Vol] 96 mg/dL Normal 74-99 [facility] No Panel Informationon 05-04 [facility] Work Phone: POC Urine Qualon 1 07-04-2021 Beta HCG ( test) Ql (U) Negative Negative [employer] Work Phone: Lot Number [id number] [employer] Phone: Negative QC Pass/Fail Pass [employer] Phone: Positive QC Pass/Fail Pass [employer] Phone: [employer] Phone: POCT Glucoseon 05-04-2022 Glucose [Mass/Vol] 93 mg/dL 74 - 99 mg/dL [facility] Glucose [Mass/Vol] 96 mg/dL 74 - 99 mg/dL [facility] Prealbuminon 05-04-2022 Prealbumin [Mass/Vol] 24 mg/dL Normal 20-40 [facility] Surgical Specimenon 05-04-20 Surgical Specimen [facility] [address] [facility] [address] [address] FINAL SURGICAL PATHOLOGY REPORT NAME: BATOOL KINGSLEY Date of 05/04/2022 Collection: Medical Record [id number] Date of 05/04/2022 Number: Receipt: Age: 22 Y Sex: F Date 05/11/2022 08:29 Reported: Date Of : 2000 Financial [id number] Admitting DERIC FLORENCE Number: Physician: Patient DIS [...] submitted. Block label: A1. (JORGE L:YAYA) CODES: [id number]; Department of Pathology Page 1 of 1 Normal [facility] Triglycerideon 05-04-2022 Interpretation and review of laboratory results Abnormal [facility] Triglyceride [Mass/Vol] 274 mg/dL High 0 - 149 mg/dL [facility] Triglycerideson 05-04-2022 Triglyceride [Mass/Vol] 274 mg/dL High 0-149 [facility] Vitamin B12on 05-04-2022 Cobalamin (Vitamin B12) [Mass/Vol] 226 pg/mL Normal [phone] [facility] US GALLBLADDER RUQon 022 US GALLBLADDER RUQ [...] Rohit Dowling MD 05/02/22 Final result Normal [facility] Comment on above: Order Comment: Reaso n for exam:->Indigestion What reading provider will be dictating this exam?->CRC CBC Auto DifferentialOrdered By: Win Narvaez on 03-27-2021 Basophils (Bld) [#/Vol] 0.05 10*3/uL [facility] Phone: Basophils/100 WBC (Bld) 0.5 % 0.0 - 2.0 % [employer] Phone: Eosinophils Absolute 0.37 [employer] Phone: Eosinophils/100 WBC (Bld) 3.8 % 0.0 - 6.0 % [facility] Phone: Hematocrit (Bld) [Volume fraction] 39.5 % 34.0 - 48.0 % [facility] Phone: Hemoglobin.gastrointes tinal spec 1 Ql (Stl) 12.6 g/dL 11.5 - 15.5 g/dL [facility] Phone: Immature Granulocytes # 0.18 E9/L [facility] Phone: Immature granulocytes/100 WBC (Bld) 1.8 % 0.0 - 5.0 % [facility] Phone: Interpretation and review of laboratory results Abnormal [employer] Phone: Lymphocytes Absolute 3.73 [employer] Phone: Lymphocytes/100 WBC (Bld) 38.2 % 20.0 - 42.0 % [facility] Phone: MCH (RBC) [Entitic mass] 28.9 pg 26.0 - 35.0 pg [facility] Phone: MCHC (RBC) [Mass/Vol] 31.9 % Low 32.0 - 34.5 % [facility] Phone: MCV (RBC) [Entitic vol] 90.6 fL 80.0 - 99.9 fL [facility] Phone: Monocytes Absolute 0.46 [facility] Phone: Monocytes/100 WBC (Bld) 4.7 % 2.0 - 12.0 % [facility] Phone: Neutrophils Absolute 4.97 [employer] Phone: Neutrophils/100 WBC (Bld) 51.0 % 43.0 - 80.0 % [facility] Phone: Platelet distribution width (Bld) [Ratio] 13.3 fL 11.5 - 15.0 fL [facility] Phone: Platelet mean volume (Bld) [Entitic vol] 9.7 fL 7.0 - 12.0 fL [facility] Phone: Platelets (Bld) [#/Vol] 281 10*3/uL [facility] Phone: RBC (Bld) [#/Vol] 4.36 10*6/uL [facility] Phone: WBC (Bld) [#/Vol] 9.8 10*3/uL [facility] Phone: Comprehensive Metabolic Pane l w/ Reflex to MGOrdered By: Win Narvaez on 03-27-2021 Albumin [Mass/Vol] 4.2 g/dL 3.5 - 5.2 g/dL [facility] Phone: ALP (Bld) [Catalytic activity/Vol] 64 U/L 35 - 104 U/L [facility] Phone: ALT [Catalytic activity/Vol] 19 U/L 0 - 32 U/L [facility] Phone: Anion gap [Moles/Vol] 12 mmol/L 7 - 16 mmol/L [facility] Phone: AST [Catalytic activity/Vol] 14 U/L 0 - 31 U/L [facility] Phone: Bilirubin [Mass/Vol] mg/dL 0.0 - 1 .2 mg/dL [facility] Phone: Calcium [Mass/Vol] 9.1 mg/dL 8.6 - 10. 2 mg/dL [facility] Phone: Chloride [Moles/Vol] 103 mmol/L 98 - 10 7 mmol/L [facility] Phone: CO2 [Moles/Vol] 22 mmol/L 22 - 29 mmol/L [facility] Phone: Creatinine [Mass/Vol] 0.5 mg/dL 0.5 - 1.0 mg/dL [facility] Phone: Free PSA/Total PSA [Mass fraction] 7.1 g/dL 6.4 - 8.3 g/dL [facility] Phone: GFR >60 [employer] Phone: GFR Non- >60 >=60 mL/min/1.73 [facility] Phone: Comment on above: Chronic Kidney Disea se: less than 60 ml/min/1.73 sq.m. Kidney Failure: less than 15 ml/min/1.73 sq.m. Results valid for patients 18 years and older. Glucose [Mass/Vol] 107 mg/dL High 74 - 99 mg/dL [facility] Phone: Interpretation and review of laboratory results Abnormal [facility] Phone: Potassium [Moles/Vol] 4.2 mmol/L 3.5 - 5.0 mmol/L [facility] Phone: Sodium [Moles/Vol] 137 mmol/L 132 - 146 mmol/L [facility] Phone: Urea nitrogen (BldV) [Mass/Vol] 9 mg/dL 6 - 20 mg/dL [facility] Order[facility] Phone: [facility] Phone: Microscopic UrinalysisOrdere d By: Win Narvaez on 03-27-2021 Bacteria, UA FEW Abnormal None Seen /HPF [facility] Phone: Epithelial Cells, UA FEW /HPF [employer] Phone: Interpretation and review of laboratory results Abnormal [facility] Phone: RBC, UA 2-5 [facility] Phone: WBC, UA 0-1 [employer] Order[facility] Phone: [facility] Phone: No Panel InformationOrdered By: Win Narvaez on 03-27-2021 [facility] Phone: POC Urine QualOrde red By: Win Narvaez on 03-27-2021 Beta HCG ( test) Ql (U) Negative Negative [facility] Phone: Beta HCG ( test) Ql (U) [id number] [facility] Phone: Negative QC Pass/Fail [employer] Phone: Positive QC Pass/Fail [employer] Phone: US PELVIS COMPLETEOrdered By : Tien Oneal on 03-27-2021 The bilateral ovaries are mildly enlarged, right greater than left. Otherwise, unremarkable pelvic ultrasound. [facility] Phone: EXAMINATION: PELVIC ULTRASOUND 03/27/2021 TECHNIQUE: Multiple [...] Free Fluid: No evidence of free fluid. [facility] Phone: Antonio, Mhy Incoming Radiant Results From [employer] - 03/27/2021 3:01 PM EDT EXAMINATION: PELVIC [...] than left. Otherwise, unremarkable pelvic ultrasound. [facility] [employer] Work Phone: [facility] Work Phone: UrinalysisOrdered By: Win Narvaez on 03-27-2021 Bilirubin Urine Negative Negative [facility] Work Phone: Blood, Urine LARGE Abnormal Negative [facility] Work Phone: Clarity, UA Clear Clear [facility] Work Phone: Color, UA Yellow Straw/Yellow [facility] [employer] Work Phone: Glucose, Ur Negative Negative mg/dL [facility] Work Phone: Interpretation and review of laboratory results Abnormal [facility] [employer] Work Phone: Ketones Ql (U) Negative Negative mg/dL [facility] Work Phone: Leukocyte esterase Test strip Ql (U) Negative Negative [facility] Work Phone: Nitrite, Urine Negative Negative [facility] Work Phone: pH, UA 5.0 [facility] [employer] Work Phone: Protein, UA TRACE Negative mg/dL [facility] Work Phone: Specific [place], UA >=1.030 [facility] [employer] Work Phone: Urobilinogen, Urine 0.2 <2.0 E.U./dL [facility] Work Phone: [facility] Work Phone: NOSE/THROAT CULTUREon 2020 NOSE/THROAT CULTURE RUN DATE: 07/10/20 Laboratory LIVE PAGE 1 RUN TIME: 951 Specimen Inquiry RUN USER: INTERFACE [facility] Department of Laboratories [address] [place], [place] [id number] PATIENT: BATOOL KINGSLEY LOC: BHARGAVIEUGENIEGILMER U #: [id number] HOME PHONE: DAVID/SX: ROOM: RE07/08/[address]: Ameena Corcoran APRN.BUILDING CONSTRUCTION ENGINEER : 99 BED: DIS: STATUS: REG REF LAB O/S: Specimen: [id number] Collected: 07/08/20 Status: COMP Req#: [id number] Received: 07/08/20 Source: THROAT Sp Desc: Subm Dr: Ameena Corcoran APRN.CNP Ordered: NOSE/THRT CULT Procedure Result Verified > NOSE/THROAT CULTURE Final 07/10/20 HEAVY GROWTH OF NORMAL ARIN END OF REPORT Normal [facility] Comment on above: Performed By: #### [address] #### [facility] [place] [id number] Vital Signs Date Time Vital Sign Value Performing Clinician Facility 05-25-2024 14:30-0500 Body weight 123.74 kg [employer] Work Phone: [facility] 05-25-2024 14:30-0500 Diastolic blood pressure 70 mm[Hg] [employer] Work Phone: [facility] 05-25-2024 14:30-0500 Systolic blood pressure 120 mm[Hg] [employer] Work Phone: [facility] 04-21-2024 15:02-0400 Body weight 118.84 kg [employer] Work Phone: [facility] 04-21-2024 15:02-0400 Diastolic blood pressure 74 mm[Hg] [employer] Work Phone: [facility] 04-21-2024 15:02-0400 Systolic blood pressure 116 mm[Hg] [employer] Work Phone: [facility] 04-07-2024 14:38-0400 Body weight 118.3 kg Kierra HUNT Work Phone: [facility] 04-07-2024 14:38-0400 Diastolic blood pressure 70 mm[Hg] Kierra HUNT Work Phone: [facility] 04-07-2024 14:38-0400 Systolic blood pressure 120 mm[Hg] Kierra HUNT Work Phone: [facility] 10-30-2022 08:56-0400 SaO2% (BldA) [Mass fraction] 97 % Deric Florence MD Work Phone: [facility] 10-30-2022 05:00-0400 Body temperature 97.9 [degF] Deric Florence MD Work Phone: [facility] 10-30-2022 05:00-0400 Diastolic blood pressure 74 mm[Hg] Deric Florence MD Work Phone: [facility] 10-30-2022 05:00-0400 Heart rate 74 /min Deric Florence MD Work Phone: [employer] 10-30-2022 05:00-0400 Respiratory rate 18 /min Deric Florence MD Work Phone: [employer] [facility] 10-30-2022 05:00-0400 Systolic blood pressure 126 mm[Hg] Deric Florence MD Work Phone: [employer] [facility] 10-29-2022 06:50-0400 Body height 170.2 cm Dreic Florence MD Work Phone: [facility] [employer] 10-29-2022 06:50-0400 Body mass index (BMI) [Ratio] 55.6 kg/m2 Deric Florence MD Work Phone: [facility] [employer] 10-29-2022 06:50-0400 Body weight 161.03 kg Deric Florence MD Work Phone: [employer] 10-24-2022 12:17-0400 Body height 170.2 cm Sjwz 2 [facility] 10-24-2022 12:17-0400 Body mass index (BMI) [Ratio] 55.44 kg/m2 Sjwz 2 [facility] [employer] 10-24-2022 12:17-0400 Body temperature 98.01 [degF] Sjwz 2 [employer] 10-24-2022 12:17-0400 Body weight 160.57 kg Sjwz 2 [facility] [employer] 10-24-2022 12:17-0400 Diastolic blood pressure 62 mm[Hg] Sjwz 2 [facility] [employer] 10-24-2022 12:17-0400 Heart rate 77 /min Sjwz 2 [facility] [employer] 10-24-2022 12:17-0400 Respiratory rate 16 /min Sjwz 2 [facility] [email or web address] 10-24-2022 12:17-0400 SaO2% (BldA) [Mass fraction] 95 % Sjwz 2 [facility] [employer] 10-24-2022 12:17-0400 Systolic blood pressure 117 mm[Hg] Sjwz 2 [facility] [employer] 05-04-2022 08:55-0400 Body temperature 98.29 [degF] Deric Florence MD Work Phone: [employer] 05-04-2022 08:55-0400 Diastolic blood pressure 68 mm[Hg] Deric Florence MD Work Phone: [employer] 05-04-2022 08:55-0400 Heart rate 83 /min Deric Florence MD Work Phone: [employer] 05-04-2022 08:55-0400 Respiratory rate 16 /min Deric Florence MD Work Phone: [employer] 05-04-2022 08:55-0400 SaO2% (BldA) [Mass fraction] 92 % Deric Florence MD Work Phone: [employer] 05-04-2022 08:55-0400 Systolic blood pressure 128 mm[Hg] Deric Florence MD Work Phone: [employer] 05-04-2022 07:06-0400 Body height 170.2 cm Deric Florence MD Work Phone: [employer] 05-04-2022 07:06-0400 Body mass index (BMI) [Ratio] 61.21 kg/m2 Deric Florence MD Work Phone: [employer] 05-04-2022 07:06-0400 Body weight 177.27 kg Deric Florence MD Work Phone: [employer] 03-27-2021 20:08-0400 Heart rate 95 /min Tien Oneal DO Work Phone: [employer] Work Phone: 03-27-2021 13:47-0400 Body height 170.2 cm Tien Jm ERN Work Phone: [employer] Work Phone: 03-27-2021 13:47-0400 Body mass index (BMI) [Ratio] 54.82 kg/m2 Tien Oneal ERN Work Phone: [employer] Work Phone: 03-27-2021 13:47-0400 Body temperature 97.11 [degF] Tien Oneal DO Work Phone: [employer] Work Phone: 03-27-2021 13:47-0400 Body weight 158.76 kg Tien Oneal DO Work Phone: [employer] Work Phone: 03-27-2021 13:47-0400 Diastolic blood pressure 80 mm[Hg] Tien Oneal DO Work Phone: [employer] Work Phone: 03-27-2021 13:47-0400 Respiratory rate 16 /min Tien Oneal ERN Work Phone: [employer] Work Phone: 03-27-2021 13:47-0400 SaO2% (BldA) [Mass fraction] 98 % Tien Oneal DO Work Phone: [employer] [facility] Phone: 03-27-2021 13:47-0400 Systolic blood pressure 173 mm[Hg] Tien Oneal DO Work Phone: [employer] Phone: Encounters Encounter Date Encounter Type Care Provider Facility Start: 05-25-2024 End: 05-25-2024 Bamboo flowsheet Bryan Manisha DO Work Phone: [facility] Start: 05-25-2024 End: 05-25-2024 Bamboo flowsheet Bryan Manisha DO Work Phone: [facility] Start: 05-25-2024 End: 05-25-2024 Office outpatient visit 15 minutes Bryan Manisha DO Work Phone: [facility] Comment on above: 34 weeks gestation o f ; Third trimester ; Insomnia, unspecified type; History of gastric bypass; Gestational diabetes mellitus (GDM), antepartum, gestational diabetes method of control unspecified Start: 05-25-2024 End: 05-25-2024 ambulatory BRYAN MANISHA Not Available Start: 05-06-2024 End: 05-06-2024 Office outpatient visit 15 minutes Kierra HUNT Work Phone: [facility] Comment on above: Third trimester preg agatha; 31 weeks gestation of ; Anxiety, generalized (CMS/HCC); Sinusitis, unspecified chronicity, unspecified location Start: 05-06-2024 End: 05-06-2024 ambulatory KIERRA RIVAS Not Available Start: 05-06-2024 End: 05-06-2024 Bamboo flowsheet Kierra HUNT Work Phone: [facility] Start: 05-06-2024 End: 05-06-2024 Bamboo flowsheet Kierra HUNT Work Phone: [facility] Start: 04-21-2024 End: 04-21-2024 Office outpatient visit 15 minutes Bryan Manisha DO Work Phone: [facility] Comment on above: Third trimester preg agatha; 29 weeks gestation of ; Anemia during in third trimester; Elevated glucose tolerance test; Abnormal thyroid stimulating hormone (TSH) level Start: 04-21-2024 End: 04-21-2024 ambulatory BRYAN MANISHA Not Available Start: 04-21-2024 End: 04-21-2024 Bamboo flowsheet Bryan Manisha DO Work Phone: [facility] Start: 04-21-2024 End: 04-21-2024 Bamboo flowsheet Bryan Manisha DO Work Phone: [facility] Start: 04-21-2024 End: 04-21-2024 Clinisync Result Encounter Bryan Manisha DO Work Phone: [facility] External Department Unsolicited Start: 04-07-2024 End: 04-07-2024 Office outpatient visit 15 minutes Kierra HUNT Work Phone: [facility] Comment on above: 27 weeks gestation o f ; Second trimester ; Gestational diabetes mellitus (GDM), antepartum, gestational diabetes method of control unspecified; Anemia affecting in second trimester Start: 04-07-2024 End: 04-07-2024 ambulatory KIERRA RIVAS Not Available Start: 04-07-2024 End: 04-07-2024 Bamboo flowsheet Kierra HUNT Work Phone: [facility] Start: 04-07-2024 End: 04-07-2024 Bamboo flowsheet Kierra HUNT Work Phone: [facility] Start: 03-17-2024 End: 03-17-2024 [facility] Start: 03-09-2024 End: 03-09-2024 ambulatory BRYAN MANISHA Not Available Start: 02-17-2024 End: 02-17-2024 ambulatory BRYAN R MANISHA [facility] Start: 02-10-2024 End: 02-10-2024 ambulatory BRYAN MANISHA Not Available Start: 01-07-2024 End: 01-07-2024 ambulatory BRYAN MANISHA Not Available Start: 12-12-2023 End: 12-12-2023 ambulatory BRYAN MANISHA Not Available Start: 11-10-2023 End: 11-10-2023 Emergency department patient visit NO PCP NO PCP [facility] Start: 08-14-2023 End: 08-14-2023 Emergency department patient visit TRAVIS VALLEJO [facility] Start: 12-14-2022 ambulatory [facility] Facility:[facility] Start: 12-03-2022 ambulatory [facility] Facility:[facility] Start: 11-06-2022 ambulatory [facility] Facility:[facility] Start: 10-29-2022 End: 10-30-2022 Evaluation and management of inpatient [facility] Start: 10-29-2022 End: 10-30-2022 Evaluation and management of inpatient Deric Florence MD Work Phone: [facility] Comment on above: Post-operative state (Primary Dx); Morbid obesity (HCC) Start: 10-24-2022 End: 10-25-2022 ambulatory [facility] Start: 10-24-2022 Encounter for other preprocedural examination [facility] Start: 10-24-2022 End: 10-24-2022 [facility] Start: 10-24-2022 End: 10-24-2022 Subsequent hospital visit by physician Hans Pat Room 2 [facility] PRE ADMIT TESTING Comment on above: Preop testing (Prima ry Dx); Malnutrition following gastrointestinal surgery Start: 10-04-2022 ambulatory [facility] Facility:[facility] Start: 08-13-2022 ambulatory [facility] Facility:[facility] Start: 07-31-2022 ambulatory [facility] Facility:[facility] Start: 07-13-2022 ambulatory [facility] Facility:[facility] Start: 06-14-2022 ambulatory KAELA GILLIAN Facility:[facility] Start: 05-04-2022 End: 05-04-2022 ambulatory KAELA ARELLANO [facility] Start: 05-04-2022 End: 05-04-2022 Subsequent hospital visit by physician Deric Florence MD Work Phone: [facility] Comment on above: Morbid obesity due t o excess calories (HCC); Gastroesophageal reflux disease Start: 05-02-2022 End: 05-05-2022 ambulatory DERIC FLORENCE [facility] Start: 03-27-2021 End: 03-27-2021 Emergency department patient visit Tien Judd Patriciarhonda DO Work Phone: [facility] Comment on above: DUB (dysfunctional [...] Basic metabolic panel calcium total Yang Hsu DIETETIC TECH - BUILDING CONSTRUCTION ENGINEER Work Phone: Start: 10-30-2022 Lipid panel Yang Girish barlow DIETETIC TECH - BUILDING CONSTRUCTION ENGINEER Work Phone: Start: 10-30-2022 Gluc bld [...] Start: 10-29-2022 Hemoglobin glycosylated a1c Yang Hsu DIETETIC TECH - BUILDING CONSTRUCTION ENGINEER Work Phone: Start: 10-29-2022 Gluc bld gluc mntr d ev cleared fda spec home use Unknown Provider Result Start: 05-01-2023 ADMIT TO INPATIENT KAELA GILILAN Start: 10-29-2022 Level iv surg pathol ogy [...] PM EST Routine [facility] [address] [place] [id number] Bryan Dyer, DO [address] [place] [address] [facility] Start: 05-25-2024 End: 05-25-2024 [...] EST Ancillary Procedure [facility] [address] [place] [place] [phone] [facility] Start: 04-21-2024 End: 04-21-2024 Patient encounter procedure 04/21/2024 2:30 PM EDT Routine [facility] [address] [place] [place] [phone] Bryan Dyer DO [address] [place] [address] Arrived [facility] Comment on above: Arrived Start: 04-21-2024 End: 04-21-2025 US for US OB SCAN FOR GROWTH Imaging Routine Elevated glucose tolerance test Abnormal thyroid stimulating hormone (TSH) level Expected: 04/21/2024 (Approximate), Expires: 04/21/2025 [facility] Comment on above: Expected: 04/21/2024 (Approximate), Expi res: 04/21/2025 Start: 04-07-2024 End: 04-07-2024 Patient encounter procedure 04/07/2024 2:40 PM EDT Routine [facility] [address] [place] [phone] Kierra Rivas PA [address] [place] [address] Arrived [facility] Comment on above: Arrived Start: 04-07-2024 End: 04-07-2025 US for US OB SCAN FOR GROWTH Imaging Routine Gestational diabetes mellitus (GDM), antepartum, gestational diabetes method of control unspecified Anemia affecting in second trimester Expected: 04/07/2024 (Approximate), Expires: 04/07/2025 [facility] Work Phone: Comment on above: Expected: 04/07/2024 (Approximate), Expi res: 04/07/2025 Start: 10-31-2023 GFR test (Diabetes, CKD 3-4, OR last GFR 15-59) GFR test (Diabetes, CKD 3-4, OR last GFR 15-59) [facility] Start: 10-31-2023 Lipid panel Lipids [facility] Start: 10-30-2023 Hemoglobin A1c measurement A1C test (Diabetic or Prediabetic) [facility] Start: 10-25-2023 GFR test (Diabetes, CKD 3-4, OR last GFR 15-59) GFR test (Diabetes, CKD 3-4, OR last GFR 15-59) [facility] Start: 05-04-2023 Hemoglobin A1c measurement A1C test (Diabetic or Prediabetic) [facility] Start: 05-04-2023 Lipid panel Lipids [facility] Start: 01-29-2023 Influenza vaccination Flu vaccine (Season Ended) [facility] Start: 11-14-2022 End: 11-14-2022 Patient encounter procedure 11/14/2022 Office Visit Bariatrics Deric Florence MD [address] [place] [address] [facility] Weight Start: 10-29-2022 End: 10-29-2022 Admission to same day surgery center 10/29/2022 Surgery IP Unit Deric Florence MD [address] [place] [address] GASTRIC BYPASS NUNO-EN-Y LAPAROSCOPICNEEDS IV TEAM [facility] Comment on above: GASTRIC BYPASS NUNO-EN-Y LAPAROSCOPICN EEDS IV TEAM Start: 10-29-2022 End: 10-29-2022 Laps gstr rstcv px w/byp nuno-en-y limb <150 cm GASTRIC BYPASS NUNO-EN-Y LAPAROSCOPIC Morbid obesity (HCC) 10/29/2022 9:00 AM EDT [facility] Start: 10-29-2022 Subsequent hospital visit by physician 10/29/2022 Hospital Encounter IP Unit Deric Florence MD [address] [place] [address] [facility] Start: 05-11-2022 End: 05-11-2022 Patient encounter procedure [facility] Weight Start: 05-04-2022 End: 05-04-2022 Egd transoral biopsy single/multiple EGD ESOPHAGOGASTRODUODENOSCOPY Gastroesophageal reflux disease 05/04/2022 8:18 AM EDT [facility] Start: 01-29-2022 Influenza vaccination Flu vaccine (#1) [facility] [employer] Start: 03-01-2021 Influenza vaccination Flu vaccine (#1) [facility] [employer] Work Phone: Start: 01-22-2020 Screening for malignant neoplasm of cervix Pap smear [facility] [employer] Start: 09-23-2019 Hepatitis B vaccine (3 of 3 - Risk 3-dose series) Hepatitis B vaccine (3 of 3 - Risk 3-dose series) [facility] [employer] Start: 2018 DTaP/Tdap/Td vaccine (1 - Tdap) DTaP/Tdap/Td vaccine (1 - Tdap) [facility] [employer] Start: 2017 Glaucoma screening Diabetic retinal exam [facility] Start: 2017 Hepatitis C screening Hepatitis C screen [facility] Start: 2017 Urine screening for protein Diabetic Alb to Cr ratio (uACR) test [facility] Start: 2015 Screening for Chlamydia trachomatis [facility] [employer] Start: 2014 HIV screening HIV screen [facility] Start: 2011 COVID-19 Vaccine (1) COVID-19 Vaccine (1) [facility] [employer] Work Phone: Start: 2011 Depression Monitoring Depression Monitoring [facility] [employer] Start: 2011 Depression Screen Depression Screen [facility] Start: 2010 HPV vaccine (1 - 2-dose series) HPV vaccine (1 - 2-dose series) [facility] Start: 2009 Diabetic foot examination Diabetic foot exam [facility] Start: 2005 Pneumococcal 0-64 years Vaccine (1 - PCV) Pneumococcal 0-64 years Vaccine (1 - PCV) [facility] Start: 01-22-2000 Varicella vaccine (1 of 2 - 2-dose childhood series) Varicella vaccine (1 of 2 - 2-dose childhood series) [employer] Start: 1999 COVID-19 Vaccine (#1) COVID-19 Vaccine (#1) [facility] Start: 1999 Hepatitis C screening Hepatitis C screen [facility] Ordering Phone: End: 10-29-2023 Basic metabolic 2000 panel - Serum or Plasma Basic Metabolic Panel Lab Routine Daily for 365 Days starting 10/30/2022 until 10/29/2023, 1 completed [employer] Phone: Comment on above: Daily for 365 Days starting 10/30/2022 u ntil 10/29/2023, 1 completed End: 10-29-2023 CBC W Auto Differential panel - Blood CBC with Auto Differential Lab Routine Daily for 365 Days starting 10/30/2022 until 10/29/2023, 1 completed [employer] Phone: Comment on above: Daily for 365 Days starting 10/30/2022 u ntil 10/29/2023, 1 completed CBC W Auto Differential panel - Blood CBC and differential Lab Routine Anemia during in third trimester Ordered: 04/21/2024 [facility] [employer] Work Phone: Comment on above: Ordered: 04/21/2024 End: 03-27-2021 Culture, Urine Culture, Urine Microbiology Routine One Time for 1 Occurrences starting 03/27/2021 until 03/27/2021 [facility] [employer] Phone: Comment on above: One Time for 1 Occurrences starting 03/02 until 03/27/2021 End: 05-04-2022 Cyanocobalamin vitamin b-12 [employer] Phone: Comment on above: 1 Occurrences starting 05/04/2022 until 05/04/2022 End: 05-04-2022 Ferritin [Mass/volume] in Serum or Plasma [employer] Phone: Comment on above: 1 Occurrences starting 05/04/2022 until 05/04/2022 End: 05-04-2022 Folate [employer] Phone: Comment on above: 1 Occurrences starting 05/04/2022 until 05/04/2022 Glucose [Mass/volume ] in Serum or Plasma [employer] Phone: Comment on above: 4X Daily (AC & HS) until discontinued st arting 10/29/2022 As Needed until disc ontinued starting 10/29/2022 End: 05-04-2022 Hemoglobin A1c/Hemoglobin.total in Blood [employer] Phone: Comment on above: 1 Occurrences starting 05/04/2022 until 05/04/2022 End: 10-30-2022 Hemoglobin A1c/Hemoglobin.total in Blood Hemoglobin A1C Lab Routine Tomorrow AM for 1 Occurrences starting 10/30/2022 until 10/30/2022 [employer] Phone: Comment on above: Tomorrow AM for 1 Occurrences starting 0 10/30/2022 until 10/30/2022 Hemoglobin A1c/Hemoglobin.total in Blood Hemoglobin A1C Lab Routine 10/30/2022 4:51 AM EDT [employer] Phone: End: 10-29-2023 Hepatic function 2000 panel - Serum or Plasma Hepatic Function Panel Lab Routine Daily for 365 Days starting 10/30/2022 until 10/29/2023, 1 completed [employer] Phone: Comment on above: Daily for 365 Days starting 10/30/2022 u ntil 10/29/2023, 1 completed End: 10-29-2023 Magnesium [Mass/volume] in Serum or Plasma Magnesium Lab Routine Daily for 365 Days starting 10/30/2022 until 10/29/2023, 1 completed [employer] Phone: Comment on above: Daily for 365 Days starting 10/30/2022 u ntil 10/29/2023, 1 completed Nasal Cannula Oxygen Nasal Cannu la Oxygen Respiratory Care Routine Daily until discontinued starting 10/30/2022 [employer] Phone: Comment on above: Daily until discontinued starting 2022 Oxygen therapy [Minimum Data Set] Initiate Oxygen Therapy Protocol Respiratory Care Routine As Needed until discontinued starting 10/29/2022 [employer] Phone: Comment on above: As Needed until discontinued starting End: 10-29-2023 Phosphate [Mass/volume] in Serum or Plasma Phosphorus Lab Routine Daily for 365 Days starting 10/30/2022 until 10/29/2023, 1 completed [employer] Phone: Comment on above: Daily for 365 Days starting 10/30/2022 u ntil 10/29/2023, 1 completed End: 05-04-2022 Prealbumin [Mass/volume] in Serum or Plasma [employer] Phone: Comment on above: 1 Occurrences starting 05/04/2022 until 05/04/2022 End: 10-29-2022 Spirometry panel [employer] Phone: Comment on above: Continuous until discontinued starting 0 10/29/2022 Every 2hr while awak e until discontinued starting 10/29/2022 Surgical Pathology Surgical Path ology Lab Routine Gastroesophageal reflux disease Release Upon Ordering for 1 Occurrences starting 05/04/2022 [employer] Phone: Comment on above: Release Upon Ordering for 1 Occurrences starting 05/04/2022 Surgical Pathology Surgical Path ology Lab Routine Morbid obesity (HCC) Release Upon Ordering for 1 Occurrences starting 10/29/2022 [employer] Phone: Comment on above: Release Upon Ordering for 1 Occurrences starting 10/29/2022 End: 05-04-2022 Vitamin B1 Vitamin B1 Lab Routine Morbi d obesity due to excess calories (HCC) 1 Occurrences starting 05/04/2022 until 05/04/2022 [employer] Phone: Comment on above: 1 Occurrences starting 05/04/2022 until 05/04/2022 End: 05-04-2022 Zinc Zinc Lab Routine Morbid obes ity due to excess calories (HCC) 1 Occurrences starting 05/04/2022 until 05/04/2022 [employer] Phone: Comment on above: 1 Occurrences starting 05/04/2022 until 05/04/2022 Immunizations Immunization Date Immunization Notes Care Provider Lito enriquez 10-24-2020 tuberculin skin test ; purified protein derivative solution, intradermal Sjwz 2 [employer] Phone: 05-25-2019 hepatitis B vaccine, adult dosage Sjwz 2 [employer] Phone: 04-01-2019 hepatitis B vaccine, adult dosage Sjwz 2 [employer] Phone: 04-01-2019 meningococcal B vacc ine, recombinant, OMV, adjuvanted Sjwz 2 [employer] Phone: 04-01-2019 tuberculin skin test ; purified protein derivative solution, intradermal Sjwz 2 [employer] Phone: Payers Date Payer Category Payer Medicaid [employer] [place]ICA[place] [id number] 2023-Present [address] [place] [address] [id number] 2023 Private Health Insurance [facility] MEDICAID [id number] 2020 Private Health Insurance [id number] [id number]. 7.3.378953.315 2020 Private Health Insurance [id number] 1.2.840.843428.1.13.239.2. 7.3.730435.315 1999 Unknown [id number] 2.16.840.1.010725.3.579.2. 204 1999 Unknown [id number] 2.16.840.1.840912.3.579.2. 204 1999 Unknown [id number] 2.16.840.1.145900.3.579.2. 204 1999 Unknown [id number] 2.16.840.1.461874.3.579.2. 204 1999 Unknown [id number] 2.16840.1.222222.3.579.2. 128 1999 Unknown [id number] 2.16.840.1.111944.3.579.2. 128 1999 Unknown [id number] 2.16.840.1.923300.3.579.2. 1285 1999 Unknown [id number] 2.16.840.1.806013.3.579.2. 128 1999 Unknown [id number] 2.16.840.1.685983.3.579.2. 128 1999 Unknown [id number] 2.16.840.1.932172.3.579.2. 1259 1999 Unknown [id number] 2.16.840.1.539376.3.579.2. 1258 1999 Unknown [id number] 2.16.840.1.170702.3.579.2. 9 1999 Unknown [id number] 2.16.840.1.413363.3.579.2. 1258 1999 Unknown [id number] 2.16.840.1.821238.3.579.2. 1259 1999 Unknown [id number] 2.16.840.1.509076.3.579.2. 1259 1999 Unknown [id number] 2.16.840.1.699859.3.579.2. 1259 1999 Unknown [id number] 2.16.840.1.273932.3.579.2. 1259 Unknown [id number] 2.16.840.1.572517.3.579.2. 212 Unknown [id number] 2.16.840.1.999608.3.579.2. 212 Unknown [id number] 2.16.840.1.337125.3.579.2. 212 Unknown [id number] 2.16.840.1.197125.3.579.2. 212 Unknown [id number] 2.16.840.1.554666.3.579.2. 212 Unknown [id number] 2.16.840.1.402308.3.579.2. 212 Unknown [id number] 2.16.840.1.891226.3.579.2. 212 Unknown [id number] 2.16.840.1.635543.3.579.2. 212 Unknown [id number] 2.16.840.1.927876.3.579.2. 212 Social History Date Type Detail Facility Tobacco smoking stat [facility] Unknown if ever smoked [facility] [employer] Phone: Start: 2000 Sex Assigned At Not on file [employer] Phone: Start: 04-23-2022 End: 05-03-2022 Exposure to SARS-CoV-2 (event) Not sure [employer] Start: 05-03-2022 End: 10-24-2022 Tobacco smoking status LAIS Ex-smoker [employer] Phone: End: 12-29-2021 History of tobacco use Current smoker [employer] Phone: End: 12-29-2021 History of tobacco use Cigarette Smoker [employer] Phone: Start: 05-03-2022 End: 12-12-2023 Tobacco use and exposure Smokeless tobacco non-user [employer] Phone: Start: 05-04-2022 End: 10-30-2022 Alcohol intake Current drinker of alcohol (finding) [employer] Phone: Start: 05-03-2022 Tobacco Comment Quit 12/2021 [facility] [employer] Phone: Start: 05-03-2022 Alcohol Comment occ [facility] Phone: Start: 10-29-2022 History SDOH Alcohol Frequency 1 [employer] Phone: Start: 12-12-2023 Tobacco smoking stat [facility] Never smoked tobacco [facility] Start: 03-09-2024 End: 05-25-2024 Alcoholic beverage intake Ex-drinker (finding) [facility] Start: 12-12-2023 End: 03-09-2024 Alcoholic beverage intake [facility] Start: 12-12-2023 Tobacco use panel [facility] Start: 10-13-[address] [facility] 05-04-2022 to 05-25-2024 Mary Zhao [...] nursing note reviewed. Exam conducted with a saw feeder present. Vitals: There is no height or [...] scheduled starting this week. Order faxed to [facility] Scheduling and [facility] FBC. Gave patient handouts for [employer]. Patient to return to clinic in 2 weeks for routine OB appointment. Patient will have GBS done at that time. Documented by Mary Zhao LPN on behalf of: Bryan Dyer DO documented in this encounter [facility] 05-06-2024 History of Present [...] of: MARILEE Espinosa documented in this encounter [facility] 04-21-2024 History of Present [...] nursing note reviewed. Exam conducted with a saw feeder present. Vitals: There is no height or [...] Bryan Dyer DO documented in this encounter [facility] 04-07-2024 History of Present [...] nursing note reviewed. Exam conducted with a saw feeder present. Vitals: There is no height or [...] of: MARILEE Espinosa documented in this encounter [place] 13233-02-2023 Hospital Discharge instructions Lashawn Ordoñez RN - 10/30/2022 6:49 AM EDT Your information: Name: Batool Kingsley : 2000 Dr. Florence's Discharge Instructions for Bariatric Surgery [facility] Discharge Instructions For [...] blood sugars as ordered by PCP or Funeral Home Manager. Follow up with PCP or Funeral Home Manager regarding diabetic medications. Make sure you take any medicines you were on for depression or anxiety. FOLLOW-UP Follow-up appointment with surgeon 10-14 days after surgery. Complete lab work prior to this appointment. Follow-up with PCP and/or Funeral Home Manager prior to seeing surgeon. CALL [facility] [phone] IF ANY OF THE FOLLOWING OCCURS TO [...] Weapons (Notify Protective Services/Security): None Other Valuables: [place], Wallet Home Medications: None Valuables Given To: [...] through Care Everywhere.Gastric Bypass Surgery: Nuno-en-Y: Post-op (Mongolian)documented in this encounter [employer] Phone: 10-30-2022 Hospital course Narrative Physician Discharge Summary Batool Kingsley [id number] Admit date: 10/29/2022 Discharge date and time: [...] Medications These medications were sent to [facility] [place] - [address] [facility] - P [phone] - F [phone] [address] [facility] [id number] traMADol 50 MG tablet Activity: no lifting, [...] 6:48 AM documented in this encounter [employer] Phone: 10-30-2022 History of Present illness Narrative Internal Medicine Progress Note NATHALIE=[facility] Shanta Hernandez D.O., F.A.C.O.I. Christin Mason D.O., F.A.C.O.I. Juliocesar Werner D.O. Francine Kilpatrick, MSN, DIETETIC TECH, AIR BAG CURER-C Yang Hsu, MSN, DIETETIC TECH-BUILDING CONSTRUCTION ENGINEER Primary Care Physician: KAELA ARELLANO APRN - BUILDING CONSTRUCTION ENGINEER Admitting Physician: Deric Florence MD Admission date and time: 10/29/2022 6:02 AM Room: [address] [place] [address] Admitting diagnosis: Morbid obesity (HCC) [E66.01] Post-operative [...] reflux disease with possible hiatal hernia repair Djg-uypnjyl-[id number] diabetes mellitus type 2 Anxiety Plan: Batool [...] 6:37 AM documented in this encounter [facility] Work Phone: 10-24-2022 History of Present illness Narrative Images from the original note were not included. [facility] PRE OP INSTRUCTIONS FOR Batool Kingsley [...] makeup (including no eye makeup) or nail jamaican on your fingers or toes. DO NOT wear any jewelry or piercings on day of surgery. All body piercing jewelry must be removed. Shower the night before surgery with _x__Antibacterial soap /CHG WIPES___x If you have a Living Will and Durable Power of Household Appliances Salesperson for Healthcare, please bring in a copy. [...] and go to information desk Please call STATEMENT PROCESSOR if you have any further questions. Pre Admit Testing [phone] [facility] [phone] documented in this encounter [employer] Phone: 05-04-2022 Hospital Discharge instructions Ashlie Goyal [...] the day after the test, use an zwip-xbd-limycyb spray to numb your throat. Follow-up care [...] Where can you learn more? Go to [email or web address] and sign in to your [employer] account. Enter J454 in the Search Health Information box to learn more about Upper GI Endoscopy: What to Expect at Home. If you do not have an account, please click on the Sign Up Now link. Current as of: December 04, 2021 Content Version: 13.4 [employer]. Care instructions adapted under license by [employer]. If you have questions about a medical condition or this instruction, always ask your healthcare professional. [employer] disclaims any warranty or liability for your use of this information. documented in this encounter [facility] Work Phone: 05-04-2022 History of Present illness Narrative SBAR form completed and placed on chart. Chart with patient in transit. Images from the original note were not included. [facility] PRE OP INSTRUCTIONS FOR Batool Kingsley [...] makeup (including no eye makeup) or nail jamaican on your fingers or toes. DO NOT wear any jewelry or piercings on day of surgery. All body piercing jewelry must be removed. Shower the night before surgery with _x__Antibacterial soap /ALEXANDER WIPES TOTAL JOINT REPLACEMENT/HYSTERECTOMY PATIENTS ONLY---Remember to bring Blood Bank bracelet to the hospital on the day of surgery. If you have a Living Will and Durable Power of Household Appliances Salesperson for Healthcare, please bring in a copy. [...] safety of all patients. Other Please call STATEMENT PROCESSOR if you have any further questions. Pre Admit Testing [phone] [facility] [phone] documented in this encounter [employer] Phone: Evaluation note Diagnosis DUB (dysfunctional uterine bleeding)- Primary Other disorder of menstruation and other abnormal bleeding from female genital tract documented in this encounter [facility] [employer] Phone: evaluation note* Diagnosis Gastroesophageal reflux disease- Primary Esophageal reflux Morbid obesity due to excess calories (HCC) documented in this encounter [employer] Phone: evaluation note* Diagnosis Morbid obesity (HCC)- Primary Morbid obesity Preop testing- Primary Preoperative examination, unspecified 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 Morbid obesity (HCC) Morbid obesity documented in this encounter [employer] Phone: evaluation note* Diagnosis S/P gastric bypass- Primary Bariatric surgery status Morbid obesity (HCC) Morbid obesity Post-operative state Other postprocedural status Morbid obesity (HCC) Morbid obesity Post-operative state Other postprocedural status documented in this encounter FLORIDALMA GIPSON [employer] Phone: evaluation note* Diagnosis 27 weeks gestation of Second trimester state, incidental Gestational diabetes mellitus (GDM), antepartum, gestational diabetes method of control unspecified Anemia affecting in second trimester documented in this encounter [facility] Healthcare[facility]* Diagnosis Third trimester state, incidental 29 weeks gestation of Anemia during in third trimester Elevated glucose tolerance test Impaired glucose tolerance test Abnormal thyroid stimulating hormone (TSH) level documented in this encounter [facility] HealthcareEvaluation note* Diagnosis Third trimester state, incidental 31 weeks gestation of Anxiety, generalized (CMS/HCC) Sinusitis, unspecified chronicity, unspecified location documented in this encounter [facility] HealthcareEvaluation note* Diagnosis 34 weeks gestation of Third trimester state, incidental Insomnia, unspecified type History of gastric bypass Gestational diabetes mellitus (GDM), antepartum, gestational diabetes method of control unspecified documented in this encounter [facility] Discharge instructions* Attachments The following attachments cannot be sent through Care Everywhere. * AUB (Abnormal Uterine Bleeding) (Mongolian) [facility]: Summary Purpose Family History No Family [...] section and content) DATE CREATED AUTHOR 07/16/2020 [facility] hector [place] DATE CREATED AUTHOR AUTHOR'S ORGANIZ ATION 05/05/2022 [facility] DATE CREATED AUTHOR AUTHOR'S ORGANIZ ATION 02/07/2023 [facility] DATE CREATED AUTHOR AUTHOR'S ORGANIZ ATION 06/04/2023 [facility] DATE CREATED AUTHOR AUTHOR'S ORGANIZ ATION 02/19/2024 [facility] DATE CREATED AUTHOR AUTHOR'S ORGANIZ ATION 03/19/2024 [facility] DATE CREATED AUTHOR AUTHOR'S ORGANIZ ATION 05/27/2024 [facility] dical Specialists EPIC Reason for Visit (unrecogniz ed section and content) Reason Comments Vaginal Bleeding 4 pad per hour, larg e clots present Specialty Diagnoses / Procedures Referred By Geronimo reardon Referred To Contact Diagnoses Gastroesophageal reflux disease Gastroesophageal reflux disease [K21.9] Procedures IA EGD TRANSORAL BIOPSY SINGLE/MULTIPLE IA EGD TRANSORAL BIOPSY SINGLE/MULTIPLE IA ESOPHAGOGASTRODUODENOSCOPY TRANSORAL DIAGNOSTIC IA EGD BALLOON DILATION ESOPHAGUS <30 MM DIAM EGD ESOPHAGOGASTRODUODENOSCOPY Deric Florence MD [address] [facility] [address] [place] [address] [employer] [facility] [address] [place] [address] Referral ID Status Reason Start Date Expiration Date Visits Re quested Visits Authorized [id number] 1 1 Specialty Diagnoses / Procedures Referred By Geronimo reardon Referred To Contact Diagnoses Morbid obesity (HCC) Morbid obesity (HCC) [E66.01] Procedures IA LAPS GSTR RSTCV PX W/BYP NUNO-EN-Y LIMB <150 CM GASTRIC BYPASS NUNO-EN-Y LAPAROSCOPIC Deric Florence MD [address] [facility] [address] [place] [address] [facility] [address] [place] [address] Referral ID Status Reason Start Date Expiration Date Visits Re quested Visits Authorized [id number] 1 1 Reason Comments Routine Visit Continuous [...] 100 mL IVPB (COMPLETED) 3,000 mg, IntraVENous, MEDICAL SUPPORT SPECIALIST TO O.R., 1 dose, On Sat10/29/22 at [...] physician 1215 (Not Given - Provider: Dena uF RN - Reason: Order parameters not met)1621 [...] of order., Post-op bupivacaine-EPINEPHrine PF (MARCAINE-w/EPINEPHrine) 0.25% -[id number] injection (CANCELED) PRN, Starting on Sat10/29/22 at [...]
Care Teams (unrecognized sec tion and content) Inspector Shells Relationship Specialty Start Date End Date Kaela Arellano, DIETETIC TECH - BUILDING CONSTRUCTION ENGINEER [id number] [facility] [place] [address] PCP - General Certified Nurse Practitioner 04/27/22 Inspector Shells Relationship Specialty Start Date End Date Kaela Arellano APRN - [facility] [address] [place] [address] PCP - General Certified Nurse Practitioner 09/14/22 Inspector Shells Relationship Specialty Start Date End Date Kaela Arellano APRN - [facility] [address] [place] [address] PCP - General Certified Nurse Practitioner 09/14/22 [...] BE BASED ON THE PRIMARY CLINICAL RECORDS. [employer] provides no warranty or guarantee of the accuracy or completeness of information in this document.
== END 2024-06-10 19:54 | disposition home or self-care (01) ==
LOC: LAB 19:53
PROVIDERS: Visit Provider Obstetrics & Gynecology
DX: Z34.93 Encounter for supervision of normal pregnancy, unspecified, third trimester (principal); Z3A.36 36 weeks gestation of pregnancy
CPT/HCPCS: 36415; 87081; 87150

== ENCOUNTER 2024-06-11 06:29 | Outpatient (OUT) | payer OTHER, SELFPAY ==
--- OUTSIDE RECORDS SUMMARY | 2024-06-11 06:32 | XMS_ITS | CCD ---
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 Role Phone Unavailable Primary Care Provider Unavailabl e [place] MAP COMPILER - SHERIE, Kaela Primary Care Provider DERIC FLORENCE Referring Unavailable GILLIAN, KAELA Primary Care Unavailable [place] MAP COMPILER - LENS GAUGER, Kaela Primary Care Provider [phone] GILLIAN, KAELA Primary Care Unavailable DERIC FLORENCE [...] Drug Class(es) Dates Sig (Normalized) Sig (Original) [id number] 200 actuat albuterol 0.09 mg/actuat metered dose [...] UA Negative Negative - 4(70) +++ mg/dL [facility] Blood, UA Negative Negative - 50 Marcus/mcL [facility] Clarity, UA Clear [facility] re Color, UA Yellow [facility] Glucose, UA Negative Negative - 2000(110) ++++ mg/dL [facility] Interpretation and review of laboratory results Normal [facility] Ketones, UA Negative Negative - 160(16) ++++ mg/dL [facility] Leukocytes, UA Negative Negative - 500+++ Henrique/mcL [facility] Nitrite, UA Negative Negative - Positive [facility] pH, UA 5.5 5 - 9 [facility] Protein, UA Negative Negative - 1999(20) ++++ mg/dL [facility] Spec Grav, UA 1.03 1 - 1.03 [facility] Urobilinogen, UA 0.2 0.2 - 12 mg/dL [facility] Urinalysis macro (dipstick) panel (U)on 05-06-2024 Bilirubin, UA Positive Negative - (70) +++ mg/dL [facility] Comment on above: small Blood, UA Negative Negative - 50 Marcus/mcL [facility] Clarity, UA Clear [facility] re Color, UA Yellow [facility] e Glucose, UA Negative Negative - 1999(110) ++++ mg/dL [facility] Interpretation and review of laboratory results Abnormal [facility] Ketones, UA Negative Negative - 160(16) ++++ mg/dL [facility] Leukocytes, UA Negative Negative - 500+++ Henrique/mcL [facility] Nitrite, UA Negative Negative - Positive [facility] pH, UA 5.5 5 - 9 [facility], UA Negative Negative - 1999(20) ++++ mg/dL [facility] Spec Grav, UA 1.03 1 - 1.03 [facility] Urobilinogen, UA 1.0 0.2 - 12 mg/dL [facility] ALL CBC WITH AUTO DIFFon BASOPHILS ABSOLUTE AUTO 0 [facility] Basophils/100 WBC (Bld) 0.2 % 0.2 - 2.0 % [facility] Eosinophils/100 WBC (Bld) 1.7 % 0.9 - 7.0 % [facility] Erythrocyte distribution width (RBC) [Ratio] 12.8 % 11.0 - 15.0 % [facility] Hematocrit (Bld) [Volume fraction] 33.8 % Low 36.0 - 48.0 % [facility] Hemoglobin (Bld) [Mass/Vol] 11.6 g/dL Low 12.0 - 16.0 g/dL [facility] IMMATURE GRANULOCYTES ABS AUTO 0.06 High [facility] Immature granulocytes/100 WBC (Bld) 0.6 % High 0.0 - 0.5 % [facility] Interpretation and review of laboratory results Abnormal [facility] LYMPHOCYTES ABSOLUTE AUTO 3.1 [facility] Lymphocytes/100 WBC (Bld) 31.7 % 20.5 - 60.0 % [facility] MCH (RBC) [Entitic mass] 32 pg 26.7 - 34.0 pg [facility] MCHC (RBC) [Mass/Vol] 34.3 g/dL 29.9 - 35.2 g/dL [facility] MCV (RBC) [Entitic vol] 93.1 fL 81.0 - 99.0 fL [facility] MONOCYTES ABSOLUTE AUTO 0.5 [facility] Monocytes/100 WBC (Bld) 5.1 % 1.7 - 12.0 % [facility] NEUTROPHILS ABSOLUTE AUTO 5.9 [facility] Neutrophils/100 WBC (Bld) 60.7 % 43.0 - 75.0 % [facility] Platelet mean volume (Bld) [Entitic vol] 10.2 fL 9.5 - 13.5 fL [facility] TBH EO # 0.2 [facility] [address] [facility] e TB RBC 3.[address] [facility] TB WBC 9.6 [facility] e [facility] Urinalysis macro (dipstick) panel (U)on 04-07-2024 Bilirubin, UA Negative Negative - 4(70) +++ mg/dL [facility] Blood, UA Negative Negative - 50 Marcus/mcL [facility] Clarity, UA Clear [facility] re Color, UA Yellow [facility] e Glucose, UA Negative Negative - 1999(110) ++++ mg/dL [facility] Interpretation and review of laboratory results Normal [facility] Ketones, UA Negative Negative - 160(16) ++++ mg/dL [facility] Leukocytes, UA Negative Negative - 500+++ Henrique/mcL [facility] Nitrite, UA Negative Negative - Positive [facility] pH, UA 6.5 5 - 9 [facility] e Protein, UA Negative Negative - 1999(20) ++++ mg/dL [facility] Spec Grav, UA 1.025 1 - 1.03 [facility] Urobilinogen, UA 1.0 0.2 - 12 mg/dL [facility] ( test) Ql (U)o n 11-10-2023 Beta HCG ( test) Ql (U) Positive Abnormal NEG [facility] Comment on above: Performed By: #### 2 106-3 #### [facility] ([id number]) [address] [place] [address] URN MACROSCOPIC NURon 2023 BILIRUBIN [place] Negative Normal NEG [facility] Comment on above: Performed By: #### N UM #### [facility] ([id number]) [address] [place] [address] 88931 BLOOD/HGB [place] Trace Abnormal NEG [facility] Comment on above: Performed By: #### N UM #### [facility] ([id number]) [address] [place] [address] 13206 GLUCOSE [place] Negative Normal NEG [facility] Comment on above: Performed By: #### N UM #### [facility] ([id number]) [address] [place] [address] 98251 KETONES [place] Trace Abnormal NEG [facility] Comment on above: Performed By: #### N UM #### [facility] ([id number]) [address] [place] [address] 51918 LEUKOCYTE ESTERASE [place] Small Abnormal NEG Pr [facility] Comment on above: Performed By: #### N UM #### [facility] ([id number]) [address] [place] [address] NITRITE [place] Negative Normal NEG [facility] Comment on above: Performed By: #### N UM #### [facility] ([id number]) [address] [place] [address] 96551 PH [place] 6.0 Normal 5.0-8.5 [facility] Comment on above: Performed By: #### N UM #### [facility] ([id number]) [address] [facility], [place] [address] PROTEIN [place] Negative Normal NEG [facility] Comment on above: Performed By: #### N UM #### [facility] ([id number]) [address] [place] [address] SPECIFIC GRAVITY [place] 1.025 Normal 1.003-1.035 [facility] Comment on above: Performed By: #### N UM #### [facility] ([id number]) [address] [place] [address]145 UROBILINOGEN [place] 2.0 eu/dL High <1.1 [facility] Comment on above: Performed By: #### N UM #### [facility] ([id number]) [address] [place] [address] 86212 SARS/FLU A+B/RSV by NAAT/Mol ecularon 08-14-2023 SARS/FLU [...] operators who are performing tests using either [employer] or [employer] systems and is limited to laboratories that [...] repeat. Fact Sheet for Healthcare Providers: https://www.fda.gov /media/557896/downl oad Fact Sheet for Patients: https://www.fda.gov /media/746519/downl oad Normal [facility] Comment on above: Performed By: #### C OVFLR #### [facility] ([id number]) [address] [place] [address], [place] [address] VITAMIN B1-THIAMINE WHOLE BL Don 12-20-2022 VITAMIN B1-THIAMINE WHOLE BLD 142.2 nmol/L Normal 66.5-200.0 [facility] Comment on above: Order Comment: FAX R ESULTS TO DR FLORENCE: [phone] Result Comment: This test was developed and its performance characteristics determined by [employer]. It has not been cleared or approved by the Food and Drug Administration. Performed at: [address] [id number] Trimming Cutter: Estuardo Michelle MD, Phone: [phone] This test was developed and its performance characteristics determined by [employer]. It has not been cleared or approved by the Food and Drug Administration. Performed By: #### V ITB1, ZINC #### [facility] [address] [place] [address] #### B12, FOL, CMP, PREALB, ANDREZ, CBCD #### [facility] [address] [place] [address] ZINC, PLASMAon 12-18-2022 ZINC, PLASMA 86 ug/dL Normal 44-115 [facility] Comment on above: Order Comment: JENNIFER COLIN TO DR FLORENCE: [phone] Result Comment: This test was developed and its performance characteristics determined by [facility]. It has not been cleared or approved by the Food and Drug Administration. Detection Limit = 5 Performed at: [address] [id number] Trimming Cutter: Estuardo Michelle MD, Phone: [phone] This test was developed and its performance characteristics determined by [facility]. It has not been cleared or approved by the Food and Drug Administration. Performed By: #### V ITB1, ZINC #### [facility] [address] [place] [address] #### B12, FOL, CMP, PREALB, ANDREZ, CBCD #### [facility] [address] [place] [address] CBC with DIFFERENTIALon 11-29 Basophils (Bld) [#/Vol] 0.0 10*3/uL Normal 0.0-0.1 [facility] Comment on above: Order Comment: JENNIFER COLIN TO DR FLORENCE: [phone] Performed By: #### V ITB1, ZINC #### [facility] [address] [place] [address] #### B12, FOL, CMP, PREALB, ANDREZ, CBCD #### [facility] [address] [place] [address] Basophils/100 WBC (Bld) 0.5 % Normal 0.0-1.0 [facility] Comment on above: Order Comment: JENNIFER COLIN TO DR FLORENCE: [phone] Performed By: #### V ITB1, ZINC #### [facility] [address] [place] [address] #### B12, FOL, CMP, PREALB, ANDREZ, CBCD #### [facility] [address] [place] [address]78 Eosinophils (Bld) [#/Vol] 0.4 10*3/uL Normal 0.0-0.4 [facility] Comment on above: Order Comment: FAMaximo COLIN TO DR FLORENCE: [phone] Performed By: #### V ITB1, ZINC #### [facility] [address] [place] [address] #### B12, FOL, CMP, PREALB, ANDREZ, CBCD #### [facility] [address] [place] [address] Eosinophils/100 WBC (Bld) 4.8 % High 1.0-4.0 [facility] Comment on above: Order Comment: FAX R CRISTI TO DR FLORENCE: [phone] Performed By: #### V ITB1, ZINC #### [facility] [address] [place] [address] #### B12, FOL, CMP, PREALB, ANDREZ, CBCD #### [facility] [address] [place] [address]70 Hematocrit (Bld) [Volume fraction] 41.9 % Normal 37.0-47.0 [facility] Comment on above: Order Comment: FAMaximo COLIN TO DR FLORENCE: [phone] Performed By: #### V ITB1, ZINC #### [facility] [address] [place] [address] #### B12, FOL, CMP, PREALB, ANDREZ, CBCD #### [facility] [address] [place] [address] Hemoglobin (Bld) [Mass/Vol] 13.8 g/dL Normal 12.0-16.0 [facility] Comment on above: Order Comment: FAMaximo COLIN TO DR FLORENCE: [phone] Performed By: #### V ITB1, ZINC #### [facility] [address] [place] [address] #### B12, FOL, CMP, PREALB, ANDREZ, CBCD #### [facility] [address] [place] [address]96 IG # 0.0 10*3/uL Normal 0.0-0.1 [facility] Comment on above: Order Comment: FAX R ESULTS TO DR FLORENCE: [phone] Performed By: #### V ITB1, ZINC #### [facility] [address] [place] [address] #### B12, FOL, CMP, PREALB, ANDREZ, CBCD #### [facility] [address] [place] [address] IG % 0.4 % Normal 0.0-1.0 [facility] Comment on above: Order Comment: FAX R ESULTS TO DR FLORENCE: [phone] Performed By: #### V ITB1, ZINC #### [facility] [address] [place] [address] #### B12, FOL, CMP, PREALB, ANDREZ, CBCD #### [facility] [address] [place] [address] Lymphocytes (Bld) [#/Vol] 3.8 10*3/uL Normal 1.3-4.4 [facility] Comment on above: Order Comment: FAX R ESULTS TO DR FLORENCE: [phone] Performed By: #### V ITB1, ZINC #### [facility] [address] [place] [address] #### B12, FOL, CMP, PREALB, ANDREZ, CBCD #### [facility] [address] [place] [address] 03291 Lymphocytes/100 WBC (Bld) 45.5 % High 27.0-41.0 [facility] Comment on above: Order Comment: FAX R ESULTS TO DR FLORENCE: [phone] Performed By: #### V ITB1, ZINC #### [facility] [address] [place] [address] #### B12, FOL, CMP, PREALB, ANDREZ, CBCD #### [facility] [address] [place] [address]45 MCV (RBC) [Entitic vol] 89.3 fL Normal 81.0-99.0 [facility] Comment on above: Order Comment: FAX R ESULTS TO DR FLORENCE: [phone] Performed By: #### V ITB1, ZINC #### [facility] [address] [place] [address] #### B12, FOL, CMP, PREALB, ANDREZ, CBCD #### [facility] [address] [place] [address] MEAN CORPUSCULAR HGB 29.4 pg Normal 27.0-31.0 [facility] Comment on above: Order Comment: FAX R ESULTS TO DR FLORENCE: [phone] Performed By: #### V ITB1, ZINC #### [facility] [address] [place] [address] #### B12, FOL, CMP, PREALB, ANDREZ, CBCD #### [facility] [address] [place] [address]06 MEAN CORPUSCULAR HGB CONC 32.9 g/dl Low 33.0-37.0 [facility] Comment on above: Order Comment: FAX R ESULTS TO DR FLORENCE: [phone] Performed By: #### V ITB1, ZINC #### [facility] [address] [place] [address] #### B12, FOL, CMP, PREALB, ANDREZ, CBCD #### [facility] [address] [place] [address] 19469 Monocytes (Bld) [#/Vol] 0.4 10*3/uL Normal 0.1-1.0 [facility] Comment on above: Order Comment: FAX R ESULTS TO DR FLORENCE: [phone] Performed By: #### V ITB1, ZINC #### [facility] [address] [place] [address] #### B12, FOL, CMP, PREALB, ANDREZ, CBCD #### [facility] [address] [place] [address] 02744 Monocytes/100 WBC (Bld) 4.3 % Normal 3.0-9.0 [facility] Comment on above: Order Comment: FAX R ESULTS TO DR FLORENCE: [phone] Performed By: #### V ITB1, ZINC #### [facility] [address] [place] [address] #### B12, FOL, CMP, PREALB, ANDREZ, CBCD #### [facility] [address] [place] [address] 12615 Neutrophils (Bld) [#/Vol] 3.7 10*3/uL Normal 2.3-7.9 [facility] Comment on above: Order Comment: FAX R ESULTS TO DR FLORENCE: [phone] Performed By: #### V ITB1, ZINC #### [facility] [address] [place] [address] #### B12, FOL, CMP, PREALB, ANDREZ, CBCD #### [facility] [address] [place] [address]109 Neutrophils/100 WBC (Bld) 44.5 % Low 47.0-73.0 [facility] Comment on above: Order Comment: FAX R ESULTS TO DR FLORENCE: [phone] Performed By: #### V ITB1, ZINC #### [facility] [address] [place] [address] #### B12, FOL, CMP, PREALB, ANDREZ, CBCD #### [facility] [address] [place] [address] 67048 NUCLEATED RED BLOOD CELL 0.0 10*3/uL Normal 0.0-0.0 [facility] Comment on above: Order Comment: FAX R ESULTS TO DR FLORENCE: [phone] Performed By: #### V ITB1, ZINC #### [facility] [address] [place] [address] #### B12, FOL, CMP, PREALB, ANDREZ, CBCD #### [facility] [address] [place] [address] 90807 NUCLEATED RED BLOOD CELL 0.0 % Normal 0.0-0.0 [facility] Comment on above: Order Comment: FAX R ESULTS TO DR FLORENCE: [phone] Performed By: #### V ITB1, ZINC #### [facility] [address] [place] [address] #### B12, FOL, CMP, PREALB, ANDREZ, CBCD #### [facility] [address] [place] [address] PLATELET COUNT AUTOMATED 277 10*3/uL Normal 130-400 [facility] Comment on above: Order Comment: FAX R ESULTS TO DR FLORENCE: [phone] Performed By: #### V ITB1, ZINC #### [facility] [address] [place] [address] #### B12, FOL, CMP, PREALB, ANDREZ, CBCD #### [facility] [address] [place] [address] Platelet mean volume (Bld) [Entitic vol] 11.2 fL Normal 9.6-12.3 [facility] Comment on above: Order Comment: FAX R ESULTS TO DR FLORENCE: [phone] Performed By: #### V ITB1, ZINC #### [facility] [address] [place] [address] #### B12, FOL, CMP, PREALB, ANDREZ, CBCD #### [facility] [address] [place] [address] RBC (Bld) [#/Vol] 4.69 10*6/uL Normal 4.10-5.10 [facility] Comment on above: Order Comment: FAX R ESULTS TO DR FLORENCE: [phone] Performed By: #### V ITB1, ZINC #### [facility] [address] [place] [address] #### B12, FOL, CMP, PREALB, ANDREZ, CBCD #### [facility] [address] [place] [address] RED CELL DISTRI WIDTH 13.5 % Normal 0-14.5 [facility] Comment on above: Order Comment: FAX R ESULTS TO DR FLORENCE: [phone] Performed By: #### V ITB1, ZINC #### [facility] [address] [place] [address] #### B12, FOL, CMP, PREALB, ANDREZ, CBCD #### [facility] [address] [place] [address] 18995 WBC (Bld) [#/Vol] 8.3 10*3/uL Normal 4.8-10.8 [facility] Comment on above: Order Comment: FAX R ESULTS TO DR FLORENCE: [phone] Performed By: #### V ITB1, ZINC #### [facility] [address] [place] [address] #### B12, FOL, CMP, PREALB, ANDREZ, CBCD #### [facility] [address] [place] [address] COMPREHENSIVE METABOLIC PANE [facility] 12-14-2022 Albumin [Mass/Vol] 3.8 g/dL Normal 3.4-5.0 [facility] Comment on above: Order Comment: FAX R ESULTS TO DR FLORENCE: [phone] Performed By: #### V ITB1, ZINC #### [facility] [address] [place] [address] #### B12, FOL, CMP, PREALB, ANDREZ, CBCD #### [facility] [address] [place] [address] ALP [Catalytic activity/Vol] 74 U/L Normal 46-116 [facility] Comment on above: Order Comment: FAX R ESULTS TO DR FLORENCE: [phone] Performed By: #### V ITB1, ZINC #### [facility] [address] [place] [address] #### B12, FOL, CMP, PREALB, ANDREZ, CBCD #### [facility] [address] [place] [address] ALT [Catalytic activity/Vol] 34 U/L Normal 10-49 [facility] Comment on above: Order Comment: FAX R ESULTS TO DR FLORENCE: [phone] Performed By: #### V ITB1, ZINC #### [facility] [address] [place] [address] #### B12, FOL, CMP, PREALB, ANDREZ, CBCD #### [facility] [address] [place] [address] AST [Catalytic activity/Vol] 19 U/L Normal 0-34 [facility] Comment on above: Order Comment: FAX R ESULTS TO DR FLORENCE: [phone] Performed By: #### V ITB1, ZINC #### [facility] [address] [place] [address] #### B12, FOL, CMP, PREALB, ANDREZ, CBCD #### [facility] [address] [place] [address] Bilirubin [Mass/Vol] 0.3 mg/dL Normal 0.3-1.2 [facility] Comment on above: Order Comment: FAX R ESULTS TO DR FLORENCE: [phone] Performed By: #### V ITB1, ZINC #### [facility] [address] [place] [address] #### B12, FOL, CMP, PREALB, ANDREZ, CBCD #### [facility] [address] [place] [address] CALCIUM,TOTAL 9.0 md/dL Normal 8.7-10.4 [facility] Comment on above: Order Comment: FAX R ESULTS TO DR FLORENCE: [phone] Performed By: #### V ITB1, ZINC #### [facility] [address] [place] [address] #### B12, FOL, CMP, PREALB, ANDREZ, CBCD #### [facility] [address] [place] [address] Chloride [Moles/Vol] 109 mmol/L High 98-107 [facility] Comment on above: Order Comment: FAX R ESULTS TO DR FLORENCE: [phone] Performed By: #### V ITB1, ZINC #### [facility] [address] [place] [address] #### B12, FOL, CMP, PREALB, ANDREZ, CBCD #### [facility] [address] [place] [address] CO2 [Moles/Vol] 27 mmol/L Normal 20-31 [facility] Comment on above: Order Comment: FAX R ESULTS TO DR FLORENCE: [phone] Performed By: #### V ITB1, ZINC #### [facility] [address] [place] [address] #### B12, FOL, CMP, PREALB, ANDREZ, CBCD #### [facility] [address] [place] [address] Creatinine [Mass/Vol] 0.62 mg/dL Normal 0.55-1.02 [facility] Comment on above: Order Comment: FAX R ESULTS TO DR FLORENCE: [phone] Performed By: #### V ITB1, ZINC #### [facility] [address] [place] [address] #### B12, FOL, CMP, PREALB, ANDREZ, CBCD #### [facility] [address] [place] [address] EST GLOM FILT > 60 Normal [facility] Comment on above: Order Comment: FAX R ESULTS TO DR FLORENCE: [phone] Result Comment: Result Units: mL/min/1.73 m2 Note: [...] #### V ITB1, ZINC #### [facility] [address] [place] [address] #### B12, FOL, CMP, PREALB, ANDRZE, CBCD #### [facility] [address] [place] [address] ESTIMATED GLOM FILT RATE > 60 Normal [facility] Comment on above: Order Comment: FAX R ESULTS TO DR FLORENCE: [phone] Performed By: #### V ITB1, ZINC #### [facility] [address] [place] [address] #### B12, FOL, CMP, PREALB, ANDREZ, CBCD #### [facility] [address] [place] [address] Glucose [Mass/Vol] 103 mg/dL High 65-99 [facility] Comment on above: Order Comment: FAMaximo R STIVENULTS TO DR FLORENCE: [phone] Performed By: #### V ITB1, ZINC #### [facility] [address] [place] [address] #### B12, FOL, CMP, PREALB, ANDREZ, CBCD #### [facility] [address] [place] [address] Potassium [Moles/Vol] 3.6 mmol/L Normal 3.4-5.1 [facility] Comment on above: Order Comment: FAMaximo R ESULTS TO DR FLORENCE: [phone] Performed By: #### V ITB1, ZINC #### [facility] [address] [place] [address] #### B12, FOL, CMP, PREALB, ANDREZ, CBCD #### [facility] [address] [place] [address] Protein [Mass/Vol] 6.5 g/dL Normal 6.0-8.0 [facility] Comment on above: Order Comment: JENNIFER R ESULTS TO DR FLORENCE: [phone] Performed By: #### V ITB1, ZINC #### [facility] [address] [place] [address] #### B12, FOL, CMP, PREALB, ANDREZ, CBCD #### [facility] [address] [place] [address] Sodium [Moles/Vol] 138 mmol/L Normal 136-145 [facility] Comment on above: Order Comment: JENNIFER COLIN TO DR FLORENCE: [phone] Performed By: #### V ITB1, ZINC #### [facility] [address] [place] [address] #### B12, FOL, CMP, PREALB, ANDREZ, CBCD #### [facility] [address] [place] [address] Urea nitrogen [Mass/Vol] 8 mg/dL Low - [facility] Comment on above: Order Comment: JENNIFER COLIN TO DR FLORENCE: [phone] Performed By: #### V ITB1, ZINC #### [facility] [address] [place] [address] #### B12, FOL, CMP, PREALB, ANDREZ, CBCD #### [facility] [address] [place] [address] FERRITINon 12-14-2022 Ferritin [Mass/Vol] 40.9 ng/mL Normal 7.3-307.3 [facility] Comment on above: Order Comment: JENNIFER COLIN TO DR FLORENCE: [phone] Performed By: #### V ITB1, ZINC #### [facility] [address] [place] [address] #### B12, FOL, CMP, PREALB, ANDREZ, CBCD #### [facility] [address] [place] [address] FOLIC ACIDon 12-14-2022 FOLIC ACID 16.04 ng/mL Normal 5.38-24.00 [facility] Comment on above: Order Comment: JENNIFER COLIN TO DR FLORENCE: [phone] Result Comment: 0.35 - 3.7 ng/mL - Folate Deficiency 3.38 - 5.38 ng/mL - Indeterminate > 5.38 ng/mL - Normal Performed By: #### V ITB1, ZINC #### [facility] [address] [place] [address] #### B12, FOL, CMP, PREALB, ANDREZ, CBCD #### [facility] [address] [place] [address]5711 PREALBUMINon 12-14-2022 Prealbumin [Mass/Vol] 16 mg/dL Normal 10-40 [facility] Comment on above: Order Comment: FAX R ESULTS TO DR FLORENCE: [phone] Performed By: #### V ITB1, ZINC #### [facility] [address] [place] [address] #### B12, FOL, CMP, PREALB, ANDREZ, CBCD #### [facility] [address] [place] [address] 05859 VITAMIN B12on 12-14-2022 Cobalamin (Vitamin B12) [Mass/Vol] 261 pg/mL Normal 211-911 [facility] Comment on above: Order Comment: FAX R ESULTS TO DR FLORENCE: [phone] Result Comment: 247 - 911 pg/mL - Normal, Vitamin B12 Sufficiency Performed By: #### V ITB1, ZINC #### [facility] [address] [place] [address] #### B12, FOL, CMP, PREALB, ANDREZ, CBCD #### [facility] [address] [place] [address] 64725 CBC with DIFFERENTIALon Basophils (Bld) [#/Vol] 0.0 10*3/uL Normal 0.0-0.1 [facility] Comment on above: Performed By: #### V ITB1, ZINC #### [facility] [address] [place] [address] #### B12, FOL, CMP, PREALB, ANDREZ, CBCD #### [facility] [address] [place] [address] 79680 Basophils/100 WBC (Bld) 0.6 % Normal 0.0-1.0 [facility] Comment on above: Performed By: #### V ITB1, ZINC #### [facility] [address] [place] [address] #### B12, FOL, CMP, PREALB, ANDREZ, CBCD #### [facility] [address] [place] [address] 11155 Eosinophils (Bld) [#/Vol] 0.4 10*3/uL Normal 0.0-0.4 [facility] Comment on above: Performed By: #### V ITB1, ZINC #### [facility] [address] [place] [address] #### B12, FOL, CMP, PREALB, ANDREZ, CBCD #### [facility] [address] [place] [address] 18035 Eosinophils/100 WBC (Bld) 6.0 % High 1.0-4.0 [facility] Comment on above: Performed By: #### V ITB1, ZINC #### [facility] [address] [place] [address] #### B12, FOL, CMP, PREALB, ANDREZ, CBCD #### [facility] [address] [place] [address] 96228 Hematocrit (Bld) [Volume fraction] 42.2 % Normal 37.0-47.0 [facility] Comment on above: Performed By: #### V ITB1, ZINC #### [facility] [address] [place] [address] #### B12, FOL, CMP, PREALB, ANDREZ, CBCD #### [facility] [address] [place] [address] 97133 Hemoglobin (Bld) [Mass/Vol] 14.0 g/dL Normal 12.0-16.0 [facility] Comment on above: Performed By: #### V ITB1, ZINC #### [facility] [address] [place] [address] #### B12, FOL, CMP, PREALB, ANDREZ, CBCD #### [facility] [address] [place] [address] IG # 0.0 10*3/uL Normal 0.0-0.1 [facility] Comment on above: Performed By: #### V ITB1, ZINC #### [facility] [address] [place] [address] #### B12, FOL, CMP, PREALB, ANDREZ, CBCD #### [facility] [address] [place] [address] 34135 IG % 0.2 % Normal 0.0-1.0 [facility] Comment on above: Performed By: #### V ITB1, ZINC #### [facility] [address] [place] [address] #### B12, FOL, CMP, PREALB, ANDREZ, CBCD #### [facility] [address] [place] [address] 06233 Lymphocytes (Bld) [#/Vol] 3.4 10*3/uL Normal 1.3-4.4 [facility] Comment on above: Performed By: #### V ITB1, ZINC #### [facility] [address] [place] [address] #### B12, FOL, CMP, PREALB, ANDREZ, CBCD #### [facility] [address] [place] [address] 00204 Lymphocytes/100 WBC (Bld) 53.6 % High 27.0-41.0 [facility] Comment on above: Performed By: #### V ITB1, ZINC #### [facility] [address] [place] [address] #### B12, FOL, CMP, PREALB, ANDREZ, CBCD #### [facility] [address] [place] [address] 43026 MCV (RBC) [Entitic vol] 88.5 fL Normal 81.0-99.0 [facility] Comment on above: Performed By: #### V ITB1, ZINC #### [facility] [address] [place] [address] #### B12, FOL, CMP, PREALB, ANDREZ, CBCD #### [facility] [address] [place] [address] 87733 MEAN CORPUSCULAR HGB 29.4 pg Normal 27.0-31.0 [facility] Comment on above: Performed By: #### V ITB1, ZINC #### [facility] [address] #### B12, FOL, CMP, PREALB, ANDREZ, CBCD #### [facility] [address] [place] [address] 56141 MEAN CORPUSCULAR HGB CONC 33.2 g/dl Normal 33.0-37.0 [facility] Comment on above: Performed By: #### V ITB1, ZINC #### [facility] [address] [place] [address] #### B12, FOL, CMP, PREALB, ANDREZ, CBCD #### [facility] [address] [place] [address] 68098 Monocytes (Bld) [#/Vol] 0.3 10*3/uL Normal 0.1-1.0 [facility] Comment on above: Performed By: #### V ITB1, ZINC #### [facility] [address] [place] [address] #### B12, FOL, CMP, PREALB, ANDREZ, CBCD #### [facility] [address] [place] [address] 50065 Monocytes/100 WBC (Bld) 4.8 % Normal 3.0-9.0 [facility] Comment on above: Performed By: #### V ITB1, ZINC #### [facility] [address] [place] [address] #### B12, FOL, CMP, PREALB, ANDREZ, CBCD #### [facility] [address] [place] [address] 47008 Neutrophils (Bld) [#/Vol] 2.2 10*3/uL Low 2.3-7.9 [facility] Comment on above: Performed By: #### V ITB1, ZINC #### [facility] [address] [place] [address] #### B12, FOL, CMP, PREALB, ANDREZ, CBCD #### [facility] [address] [place] [address] 79773 Neutrophils/100 WBC (Bld) 34.8 % Low 47.0-73.0 [facility] Comment on above: Performed By: #### V ITB1, ZINC #### [facility] [address] [place] [address] #### B12, FOL, CMP, PREALB, ANDREZ, CBCD #### [facility] [address] [place] [address] 35305 NUCLEATED RED BLOOD CELL 0.0 10*3/uL Normal 0.0-0.0 [facility] Comment on above: Performed By: #### V ITB1, ZINC #### [facility] [address] [place] [address] #### B12, FOL, CMP, PREALB, ANDREZ, CBCD #### [facility] [address] [place] [address] 30797 NUCLEATED RED BLOOD CELL 0.0 % Normal 0.0-0.0 [facility] Comment on above: Performed By: #### V ITB1, ZINC #### [facility] [address] [place] [address] #### B12, FOL, CMP, PREALB, ANDREZ, CBCD #### [facility] [address] [place] [address] 83619 PLATELET COUNT AUTOMATED 265 10*3/uL Normal 130-400 [facility] Comment on above: Performed By: #### V ITB1, ZINC #### [facility] [address] [place] [address] #### B12, FOL, CMP, PREALB, ANDREZ, CBCD #### [facility] [address] [place] [address] 76240 Platelet mean volume (Bld) [Entitic vol] 11.3 fL Normal 9.6-12.3 [facility] Comment on above: Performed By: #### V ITB1, ZINC #### [facility] [address] [place] [address] #### B12, FOL, CMP, PREALB, ANDREZ, CBCD #### [facility] [address] [place] [address] RBC (Bld) [#/Vol] 4.77 10*6/uL Normal 4.10-5.10 [facility] Comment on above: Performed By: #### V ITB1, ZINC #### [facility] [address] [place] [address] #### B12, FOL, CMP, PREALB, ANDREZ, CBCD #### [facility] [address] [place] [address] RED CELL DISTRI WIDTH 13.9 % Normal 0-14.5 [facility] Comment on above: Performed By: #### V ITB1, ZINC #### [facility] [address] [place] [address] #### B12, FOL, CMP, PREALB, ANDREZ, CBCD #### [facility] [address] [place] [address] 70635 WBC (Bld) [#/Vol] 6.3 10*3/uL Normal 4.8-10.8 [facility] Comment on above: Performed By: #### V ITB1, ZINC #### [facility] [address] [place] [address] #### B12, FOL, CMP, PREALB, ANDREZ, CBCD #### [facility] [address] [place] [address] COMPREHENSIVE METABOLIC PANE Evan 12-03-2022 Albumin [Mass/Vol] 4.0 g/dL Normal 3.4-5.0 [facility] Comment on above: Performed By: #### V ITB1, ZINC #### [facility] [address] [place] [address] #### B12, FOL, CMP, PREALB, ANDREZ, CBCD #### [facility] [address] [place] [address] 23937 ALP [Catalytic activity/Vol] 69 U/L Normal 46-116 [facility] Comment on above: Performed By: #### V ITB1, ZINC #### [facility] [address] #### B12, FOL, CMP, PREALB, ANDREZ, CBCD #### [facility] [address] [place] [address] 18433 ALT [Catalytic activity/Vol] 79 U/L High 10-49 [facility] Comment on above: Performed By: #### V ITB1, ZINC #### [facility] [address] [place] [address] #### B12, FOL, CMP, PREALB, ANDREZ, CBCD #### [facility] [address] [place] [address] 14422 AST [Catalytic activity/Vol] 31 U/L Normal 0-34 [facility] Comment on above: Performed By: #### V ITB1, ZINC #### [facility] [address] [place] [address] #### B12, FOL, CMP, PREALB, ANDREZ, CBCD #### [facility] [address] [place] [address] 97372 Bilirubin [Mass/Vol] 0.4 mg/dL Normal 0.3-1.2 [facility] Comment on above: Performed By: #### V ITB1, ZINC #### [facility] [address] [place] [address] #### B12, FOL, CMP, PREALB, ANDREZ, CBCD #### [facility] [address] [place] [address] 76245 CALCIUM,TOTAL 9.1 md/dL Normal 8.7-10.4 [facility] Comment on above: Performed By: #### V ITB1, ZINC #### [facility] [address] [place] [address] #### B12, FOL, CMP, PREALB, ANDREZ, CBCD #### [facility] [address] [place] [address] Chloride [Moles/Vol] 109 mmol/L High 98-107 [facility] Comment on above: Performed By: #### V ITB1, ZINC #### [facility] [address] [place] [address] #### B12, FOL, CMP, PREALB, ANDREZ, CBCD #### [facility] [address] [place] [address] CO2 [Moles/Vol] 25 mmol/L Normal 20-31 [facility] Comment on above: Performed By: #### V ITB1, ZINC #### [facility] [address] [place] [address] #### B12, FOL, CMP, PREALB, ANDREZ, CBCD #### [facility] [address] [place] [address] Creatinine [Mass/Vol] 0.56 mg/dL Normal 0.55-1.02 [facility] Comment on above: Performed By: #### V ITB1, ZINC #### [facility] [address] [place] [address] #### B12, FOL, CMP, PREALB, ANDREZ, CBCD #### [facility] [address] [place] [address] EST GLOM FILT > 60 Normal [facility] Comment on above: Result Comment: Result [...] #### V ITB1, ZINC #### [facility] [address] [place] [address] #### B12, FOL, CMP, PREALB, ANDREZ, CBCD #### [facility] [address] [place] [address] ESTIMATED GLOM FILT RATE > 60 Normal [facility] Comment on above: Performed By: #### V ITB1, ZINC #### [facility] [address] [place] [address] #### B12, FOL, CMP, PREALB, ANDREZ, CBCD #### [facility] [address] [place] [address] 83396 Glucose [Mass/Vol] 103 mg/dL High 65-99 [facility] Comment on above: Performed By: #### V ITB1, ZINC #### [facility] [address] [place] [address] #### B12, FOL, CMP, PREALB, ANDREZ, CBCD #### [facility] [address] [place] [address] 45656 Potassium [Moles/Vol] 3.8 mmol/L Normal 3.4-5.1 [facility] Comment on above: Performed By: #### V ITB1, ZINC #### [facility] [address] [place] [address] #### B12, FOL, CMP, PREALB, ANDREZ, CBCD #### [facility] [address] [place] [address] Protein [Mass/Vol] 6.7 g/dL Normal 6.0-8.0 [facility] Comment on above: Performed By: #### V ITB1, ZINC #### [facility] [address] [place] [address] #### B12, FOL, CMP, PREALB, ANDREZ, CBCD #### [facility] [address] [place] [address] Sodium [Moles/Vol] 141 mmol/L Normal 136-145 [facility] Comment on above: Performed By: #### V ITB1, ZINC #### [facility] [address] [place] [address] #### B12, FOL, CMP, PREALB, ANDREZ, CBCD #### [facility] [address] [place] [address] Urea nitrogen [Mass/Vol] 10 mg/dL Normal 9-23 [facility] Comment on above: Performed By: #### V ITB1, ZINC #### [facility] [address] [place] [address] #### B12, FOL, CMP, PREALB, ANDREZ, CBCD #### [facility] [address] [place] [address] [id number] 12-03-2022 ESTIMATED AVERAGE GLUCOSE 94 Normal [facility] Comment on above: Performed By: #### V ITB1, ZINC #### [facility] [address] [place] [address] #### B12, FOL, CMP, PREALB, ANDREZ, CBCD #### [facility] [address] [place] [address] HbA1c (Bld) [Mass fraction] 4.9 % Normal 4.8-5.6 [facility] Comment on above: Result Comment: Standarization of method based on National Glycohemoglobin Standardization Program (NGSP). HEMOGLOBIN A1c(%) DEGREE of GLUCOSE CONTROL 5.7-6.4% Prediabetes range >6.4% Diagnosis of Diabetes <7% Glycemic control for adults with Diabetes Performed By: #### V ITB1, ZINC #### [facility] [address] [place] [address] #### B12, FOL, CMP, PREALB, ANDREZ, CBCD #### [facility] [address] [place] [address] 64362 INSULINon 12-03-2022 INSULIN 14.2 mU/L Normal 2.6-37.6 [facility] Comment on above: Performed By: #### V ITB1, ZINC #### [facility] [address] [place] [address] #### B12, FOL, CMP, PREALB, ANDREZ, CBCD #### [facility] [address] [place] [address] 27564 LIPID PANEL CHOLESTEROL/HDLo n 12-03-2022 Cholesterol [Mass/Vol] 113 mg/dL Normal <200 [facility] Comment on above: Performed By: #### V ITB1, ZINC #### [facility] [address] [place] [address] #### B12, FOL, CMP, PREALB, ANDREZ, CBCD #### [facility] [address] [place] [address] 99916 Cholesterol in HDL [Mass/Vol] 26 mg/dL Low 40-60 [facility] Comment on above: Performed By: #### V ITB1, ZINC #### [facility] [address] [place] [address] #### B12, FOL, CMP, PREALB, ANDREZ, CBCD #### [facility] [address] [place] [address] 46613 Cholesterol in LDL [Mass/Vol] 52 mg/dL Normal 9-159 [facility] Comment on above: Performed By: #### V ITB1, ZINC #### [facility] [address] [place] [address] #### B12, FOL, CMP, PREALB, ANDREZ, CBCD #### [facility] [address] [place] [address] 89551 Cholesterol.total/Chol esterol in HDL [Mass ratio] 4.3 {ratio} Normal [facility] Comment on above: Performed By: #### V ITB1, ZINC #### [facility] [address] [place] [address] #### B12, FOL, CMP, PREALB, ANDREZ, CBCD #### [facility] [address] [place] [address] Triglyceride [Mass/Vol] 176 mg/dL High <150 [facility] Comment on above: Result Comment: TRIGLYCERIDE RISK ASSESSMENT: 150-199 mg/dl BORDERLINE HIGH >200 mg//dl HIGH . Performed By: #### V ITB1, ZINC #### [facility] [address] [place] [address] #### B12, FOL, CMP, PREALB, ANDREZ, CBCD #### [facility] [address] [place] [address] VLDL CHOLESTEROL 35 mg/dL Normal 6-40 [facility] Comment on above: Performed By: #### V ITB1, ZINC #### [facility] [address] [place] [address] #### B12, FOL, CMP, PREALB, ANDREZ, CBCD #### [facility] [address] [place] [address] CBC with DIFFERENTIALon 05-0 -2022 Basophils (Bld) [#/Vol] 0.0 10*3/uL Normal 0.0-0.1 [facility] Comment on above: Order Comment: FAX R ESULTS TO DR FLORENCE: [phone] Performed By: #### V ITB1, ZINC #### [facility] [address] [place] [address] #### B12, FOL, CMP, PREALB, ANDREZ, CBCD #### [facility] [address] [place] [address] 19802 Basophils/100 WBC (Bld) 0.3 % Normal 0.0-1.0 [facility] Comment on above: Order Comment: FAX R ESULTS TO DR FLORENCE: [phone] Performed By: #### V ITB1, ZINC #### [facility] [address] [place] [address] #### B12, FOL, CMP, PREALB, ANDREZ, CBCD #### [facility] [address] [place] [address] Eosinophils (Bld) [#/Vol] 0.2 10*3/uL Normal 0.0-0.4 [facility] Comment on above: Order Comment: FAX R ESULTS TO DR FLORENCE: [phone] Performed By: #### V ITB1, ZINC #### [facility] [address] [place] [address] #### B12, FOL, CMP, PREALB, ANDREZ, CBCD #### [facility] [address] [place] [address] Eosinophils/100 WBC (Bld) 3.2 % Normal 1.0-4.0 [facility] Comment on above: Order Comment: FAX R ESULTS TO DR FLORENCE: [phone] Performed By: #### V ITB1, ZINC #### [facility] [address] [place] [address] #### B12, FOL, CMP, PREALB, ANDREZ, CBCD #### [facility] [address] [place] [address] 75104 Hematocrit (Bld) [Volume fraction] 43.8 % Normal 37.0-47.0 [facility] Comment on above: Order Comment: FAX R ESULTS TO DR FLORENCE: [phone] Performed By: #### V ITB1, ZINC #### [facility] [address] [place] [address] #### B12, FOL, CMP, PREALB, ANDREZ, CBCD #### [facility] [address] [place] [address] 41471 Hemoglobin (Bld) [Mass/Vol] 14.3 g/dL Normal 12.0-16.0 [facility] Comment on above: Order Comment: FAX R ESULTS TO DR FLORENCE: [phone] Performed By: #### V ITB1, ZINC #### [facility] [address] [place] [address] #### B12, FOL, CMP, PREALB, ANDREZ, CBCD #### [facility] [address] [place] [address] IG # 0.1 10*3/uL Normal 0.0-0.1 [facility] Comment on above: Order Comment: FAX R ESULTS TO DR FLORENCE: [phone] Performed By: #### V ITB1, ZINC #### [facility] [address] [place] [address] #### B12, FOL, CMP, PREALB, ANDREZ, CBCD #### [facility] [address] [place] [address] IG % 0.7 % Normal 0.0-1.0 [facility] Comment on above: Order Comment: FAX R ESULTS TO DR FLORENCE: [phone] Performed By: #### V ITB1, ZINC #### [facility] [address] [place] [address] #### B12, FOL, CMP, PREALB, ANDREZ, CBCD #### [facility] [address] [place] [address] Lymphocytes (Bld) [#/Vol] 3.5 10*3/uL Normal 1.3-4.4 [facility] Comment on above: Order Comment: FAX R ESULTS TO DR FLORENCE: [phone] Performed By: #### V ITB1, ZINC #### [facility] [address] [place] [address] #### B12, FOL, CMP, PREALB, ANDREZ, CBCD #### [facility] [address] [place] [address] Lymphocytes/100 WBC (Bld) 46.7 % High 27.0-41.0 [facility] Comment on above: Order Comment: FAX R ESULTS TO DR FLORENCE: [phone] Performed By: #### V ITB1, ZINC #### [facility] [address] [place] [address] #### B12, FOL, CMP, PREALB, ANDREZ, CBCD #### [facility] [address] [place] [address] MCV (RBC) [Entitic vol] 88.1 fL Normal 81.0-99.0 [facility] Comment on above: Order Comment: FAX R ESULTS TO DR FLORENCE: [phone] Performed By: #### V ITB1, ZINC #### [facility] [address] [place] [address] #### B12, FOL, CMP, PREALB, ANDREZ, CBCD #### [facility] [address] [place] [address] MEAN CORPUSCULAR HGB 28.8 pg Normal 27.0-31.0 [facility] Comment on above: Order Comment: FAX R ESULTS TO DR FLORENCE: [phone] Performed By: #### V ITB1, ZINC #### [facility] [address] [place] [address] #### B12, FOL, CMP, PREALB, ANDREZ, CBCD #### [facility] [address] [place] [address] MEAN CORPUSCULAR HGB CONC 32.6 g/dl Low 33.0-37.0 [facility] Comment on above: Order Comment: FAX R ESULTS TO DR FLORENCE: [phone] Performed By: #### V ITB1, ZINC #### [facility] [address] [place] [address] #### B12, FOL, CMP, PREALB, ANDREZ, CBCD #### [facility] [address] [place] [address] Monocytes (Bld) [#/Vol] 0.3 10*3/uL Normal 0.1-1.0 [facility] Comment on above: Order Comment: FAX R ESULTS TO DR FLORENCE: [phone] Performed By: #### V ITB1, ZINC #### [facility] [address] [place] [address] #### B12, FOL, CMP, PREALB, ANDREZ, CBCD #### [facility] [address] [place] [address] Monocytes/100 WBC (Bld) 4.3 % Normal 3.0-9.0 [facility] Comment on above: Order Comment: FAX R ESULTS TO DR FLORENCE: [phone] Performed By: #### V ITB1, ZINC #### [facility] [address] [place] [address] #### B12, FOL, CMP, PREALB, ANDREZ, CBCD #### [facility] [address] [place] [address] Neutrophils (Bld) [#/Vol] 3.4 10*3/uL Normal 2.3-7.9 [facility] Comment on above: Order Comment: FAX R ESULTS TO DR FLORENCE: [phone] Performed By: #### V ITB1, ZINC #### [facility] [address] [place] [address] #### B12, FOL, CMP, PREALB, ANDREZ, CBCD #### [facility] [address] [place] [address] Neutrophils/100 WBC (Bld) 44.8 % Low 47.0-73.0 [facility] Comment on above: Order Comment: FAX R ESULTS TO DR FLORENCE: [phone] Performed By: #### V ITB1, ZINC #### [facility] [address] [place] [address] #### B12, FOL, CMP, PREALB, ANDREZ, CBCD #### [facility] [address] [place] [address] NUCLEATED RED BLOOD CELL 0.0 10*3/uL Normal 0.0-0.0 [facility] Comment on above: Order Comment: FAX R ESULTS TO DR FLORENCE: Performed By: #### V ITB1, ZINC #### [facility] [address] [place] [address] #### B12, FOL, CMP, PREALB, ANDREZ, CBCD #### [facility] [address] [place] [address] NUCLEATED RED BLOOD CELL 0.0 % Normal 0.0-0.0 [facility] Comment on above: Order Comment: FAX R ESULTS TO DR FLORENCE: Performed By: #### V ITB1, ZINC #### [facility] [address] [place] [address] #### B12, FOL, CMP, PREALB, ANDREZ, CBCD #### [facility] [address] [place] [address] PLATELET COUNT AUTOMATED 347 10*3/uL Normal 130-400 [facility] Comment on above: Order Comment: FAX R ESULTS TO DR FLORENCE: Performed By: #### V ITB1, ZINC #### [facility] [address] [place] [address] #### B12, FOL, CMP, PREALB, ANDREZ, CBCD #### [facility] [address] [place] [address] Platelet mean volume (Bld) [Entitic vol] 9.9 fL Normal 9.6-12.3 [facility] Comment on above: Order Comment: FAX R ESULTS TO DR FLORENCE: Performed By: #### V ITB1, ZINC #### [facility] [address] [place] [address] #### B12, FOL, CMP, PREALB, ANDREZ, CBCD #### [facility] [address] [place] [address] RBC (Bld) [#/Vol] 4.97 10*6/uL Normal 4.10-5.10 [facility] Comment on above: Order Comment: FAX R ESULTS TO DR FLORENCE: Performed By: #### V ITB1, ZINC #### [facility] [address] [place] [address] #### B12, FOL, CMP, PREALB, ANDREZ, CBCD #### [facility] [address] [place] [address] RED CELL DISTRI WIDTH 13.2 % Normal 0-14.5 [facility] Comment on above: Order Comment: FAX R ESULTS TO DR FLORENCE: Performed By: #### V ITB1, ZINC #### [facility] [address] [place] [address] #### B12, FOL, CMP, PREALB, ANDREZ, CBCD #### [facility] [address] [place] [phone] WBC (Bld) [#/Vol] 7.5 10*3/uL Normal 4.8-10.8 [facility] Comment on above: Order Comment: FAX R ESULTS TO DR FLORENCE: [phone] Performed By: #### V ITB1, ZINC #### [facility] [address] [place] [address] #### B12, FOL, CMP, PREALB, ANDREZ, CBCD #### [facility] [address] [place] [address] COMPREHENSIVE METABOLIC PANE Evan 11-06-2022 Albumin [Mass/Vol] 4.2 g/dL Normal 3.4-5.0 [facility] Comment on above: Order Comment: FAX R ESULTS TO DR FLORENCE: [phone] Performed By: #### V ITB1, ZINC #### [facility] [address] [place] [address] #### B12, FOL, CMP, PREALB, ANDREZ, CBCD #### [facility] [address] [place] [address] ALP [Catalytic activity/Vol] 59 U/L Normal 46-116 [facility] Comment on above: Order Comment: FAX R ESULTS TO DR FLORENCE: Performed By: #### V ITB1, ZINC #### [facility] [address] [place] [address] #### B12, FOL, CMP, PREALB, ANDREZ, CBCD #### [facility] [address] [place] [address] ALT [Catalytic activity/Vol] 30 U/L Normal 10-49 [facility] Comment on above: Order Comment: FAX R ESULTS TO DR FLORENCE: Performed By: #### V ITB1, ZINC #### [facility] [address] [place] [address] #### B12, FOL, CMP, PREALB, ANDREZ, CBCD #### [facility] [address] [place] [address] AST [Catalytic activity/Vol] 20 U/L Normal 0-34 [facility] Comment on above: Order Comment: FAX R ESULTS TO DR FLORENCE: Performed By: #### V ITB1, ZINC #### [facility] [address] [place] [address] #### B12, FOL, CMP, PREALB, ANDREZ, CBCD #### [facility] [address] [place] [address] Bilirubin [Mass/Vol] 0.5 mg/dL Normal 0.3-1.2 [facility] Comment on above: Order Comment: FAX R ESULTS TO DR FLORENCE: Performed By: #### V ITB1, ZINC #### [facility] [address] [place] [address] #### B12, FOL, CMP, PREALB, ANDREZ, CBCD #### [facility] [address] [place] [address] CALCIUM,TOTAL 9.3 md/dL Normal 8.7-10.4 [facility] Comment on above: Order Comment: FAX R ESULTS TO DR FLORENCE: Performed By: #### V ITB1, ZINC #### [facility] [address] [place] [address] #### B12, FOL, CMP, PREALB, ANDREZ, CBCD #### [facility] [address] [place] [address] Chloride [Moles/Vol] 103 mmol/L Normal 98-107 [facility] Comment on above: Order Comment: FAX R ESULTS TO DR FLORENCE: [phone] Performed By: #### V ITB1, ZINC #### [facility] [address] [place] [address] #### B12, FOL, CMP, PREALB, ANDREZ, CBCD #### [facility] [address] [place] [address] CO2 [Moles/Vol] 23 mmol/L Normal 20-31 [facility] Comment on above: Order Comment: FAX R ESULTS TO DR FLORENCE: [phone] Performed By: #### V ITB1, ZINC #### [facility] [address] [place] [address] #### B12, FOL, CMP, PREALB, ANDREZ, CBCD #### [facility] [address] [place] [address] Creatinine [Mass/Vol] 0.58 mg/dL Normal 0.55-1.02 [facility] Comment on above: Order Comment: FAX R ESULTS TO DR FLORENCE: [phone] Performed By: #### V ITB1, ZINC #### [facility] [address] [place] [address] #### B12, FOL, CMP, PREALB, ANDREZ, CBCD #### [facility] [address] [place] [address] EST GLOM FILT > 60 Normal [facility] Comment on above: Order Comment: FAX R ESULTS TO DR FLORENCE: [phone] Result Comment: Result Units: mL/min/1.73 m2 Note: [...] #### V ITB1, ZINC #### [facility] [address] [place] [address] #### B12, FOL, CMP, PREALB, ANDREZ, CBCD #### [facility] [address] [place] [address] ESTIMATED GLOM FILT RATE > 60 Normal [facility] Comment on above: Order Comment: FAX R ESULTS TO DR FLORENCE: [phone] Performed By: #### V ITB1, ZINC #### [facility] [address] [place] [address] #### B12, FOL, CMP, PREALB, ANDREZ, CBCD #### [facility] [address] [place] [address] Glucose [Mass/Vol] 92 mg/dL Normal 65-99 [facility] Comment on above: Order Comment: FAX R ESULTS TO DR FLORENCE: [phone] Performed By: #### V ITB1, ZINC #### [facility] [address] [place] [address] #### B12, FOL, CMP, PREALB, ANDREZ, CBCD #### [facility] [address] [place] [address] Potassium [Moles/Vol] 3.9 mmol/L Normal 3.4-5.1 [facility] Comment on above: Order Comment: FAX R ESULTS TO DR FLORENCE: [phone] Performed By: #### V ITB1, ZINC #### [facility] [address] [place] [address] #### B12, FOL, CMP, PREALB, ANDREZ, CBCD #### [facility] [address] [place] [address] Protein [Mass/Vol] 7.3 g/dL Normal 6.0-8.0 [facility] Comment on above: Order Comment: FAX R ESULTS TO DR FLORENCE: [phone] Performed By: #### V ITB1, ZINC #### [facility] [address] [place] [address] #### B12, FOL, CMP, PREALB, ANDREZ, CBCD #### [facility] [address] [place] [address] Sodium [Moles/Vol] 137 mmol/L Normal 136-145 [facility] Comment on above: Order Comment: FAX R ESULTS TO DR FLORENCE: [phone] Performed By: #### V ITB1, ZINC #### [facility] [address] [place] [address] #### B12, FOL, CMP, PREALB, ANDREZ, CBCD #### [facility] [address] [place] [address] Urea nitrogen [Mass/Vol] 12 mg/dL Normal 9-23 [facility] Comment on above: Order Comment: FAX R ESULTS TO DR FLORENCE: [phone] Performed By: #### V ITB1, ZINC #### [facility] [address] [place] [address] #### B12, FOL, CMP, PREALB, ANDREZ, CBCD #### [facility] [address] [place] [address] Basic Metabolic Panelon 05-0 Anion gap [Moles/Vol] 11 mmol/L Normal 7-16 [facility] Calcium [Mass/Vol] 8.9 mg/dL Normal 8.6-10.2 [facility] Chloride [Moles/Vol] 104 mmol/L Normal 98-107 [facility] CO2 [Moles/Vol] 25 mmol/L Normal 22-29 [facility] Creatinine [Mass/Vol] 0.6 mg/dL Normal 0.5-1.0 [facility] GFR Calculated >60 Normal >=60 [facility] Comment on above: Result Comment: Dion ch [...] secretion. Glucose [Mass/Vol] 117 mg/dL High 74-99 [facility] Potassium [Moles/Vol] 4.3 mmol/L Normal 3.5-5.0 [facility] Sodium [Moles/Vol] 140 mmol/L Normal 132-146 [facility] Urea nitrogen [Mass/Vol] 13 mg/dL Normal 6-20 [facility] Basic metabolic 2000 panelon 10-30-2022 Anion gap [Moles/Vol] 11 mmol/L 7 - 16 mmol/L [facility] Calcium [Mass/Vol] 8.9 mg/dL 8.6 - 10. 2 mg/dL [facility] Chloride [Moles/Vol] 104 mmol/L 98 - 10 7 mmol/L [facility] CO2 [Moles/Vol] 25 mmol/L 22 - 29 mmol/L [facility] Creatinine [Mass/Vol] 0.6 mg/dL 0.5 - 1.0 mg/dL [facility] GFR/1.73 sq M.predicted among non-blacks MDRD (S/P/Bld) [Vol rate/Area] mL/min/1.73 60 - PINF mL/min/1.73 [facility] Comment on above: Pediatric calculator link [...] 117 mg/dL High 74 - 99 mg/dL [facility] Potassium [Moles/Vol] 4.3 mmol/L 3.5 - 5.0 mmol/L [facility] Sodium [Moles/Vol] 140 mmol/L 132 - 146 mmol/L [facility] Urea nitrogen [Mass/Vol] 13 mg/dL 6 - 20 mg/dL [facility] CBC With Platelet and Differ entialon 10-30-2022 Abs Imm Granulocytes 0.07 E9/L Normal [facility] Absolute Basophils 0.01 E9/L Normal 0.00-0.20 [facility] Absolute Eosinophils 0.00 E9/L Low 0.05-0.50 [facility] Absolute Lymphocytes 1.89 E9/L Normal 1.50-4.00 [facility] Absolute Monocytes 0.73 E9/L Normal 0.10-0.95 [facility] Absolute Neutrophils 9.02 E9/L High 1.80-7.30 [facility] Basophils/100 WBC (Bld) 0.1 % Normal 0.0-2.0 [facility] Eosinophils/100 WBC (Bld) 0.0 % Normal 0.0-6.0 [facility] Hematocrit (Bld) [Volume fraction] 38.2 % Normal 34.0-48.0 [facility] Hemoglobin (Bld) [Mass/Vol] 12.2 g/dL Normal 11.5-15.5 [facility] Imm Granulocytes 0.6 % Normal 0.0-5.0 [facility] Lymphocytes/100 WBC (Bld) 16.1 % Low 20.0-42.0 [facility] MCH (RBC) [Entitic mass] 29.2 pg Normal 26.0-35.0 [facility] MCHC 31.9 % Low 32.0-34.5 [facility] MCV (RBC) [Entitic vol] 91.4 fL Normal 80.0-99.9 [facility] Monocytes/100 WBC (Bld) 6.2 % Normal 2.0-12.0 [facility] Neutrophils/100 WBC (Bld) 77.0 % Normal 43.0-80.0 [facility] Platelet Count 285 E9/L Normal 130-450 [facility] Platelet mean volume (Bld) [Entitic vol] 10.4 fL Normal 7.0-12.0 [facility] RBC 4.18 E12/L Normal 3.50-5.50 [facility] RDW 13.2 fL Normal 11.5-15.0 [facility] WBC 11.7 E9/L High 4.5-11.5 [facility] CBC with Auto Differentialon 10-30-2022 Basophils (Bld) [#/Vol] 0.01 10*3/uL [facility] Basophils/100 WBC (Bld) 0.1 % 0.0 - 2.0 % [facility] Eosinophils (Bld) [#/Vol] 0.00 10*3/uL Low [facility] Eosinophils/100 WBC (Bld) 0 % 0.0 - 6.0 % [facility] Erythrocyte distribution width (RBC) [Ratio] 13.2 fL 11.5 - 15.0 fL [facility] Hematocrit (Bld) [Volume fraction] 38.2 % 34.0 - 48.0 % [facility] Hemoglobin (Bld) [Mass/Vol] 12.2 g/dL 11.5 - 15.5 g/dL [facility] Immature granulocytes (Bld) [#/Vol] 0.07 10*3/uL E9/L [facility] Immature granulocytes/100 WBC (Bld) 0.6 % 0.0 - 5.0 % [facility] Interpretation and review of laboratory results Abnormal [facility] Lymphocytes (Bld) [#/Vol] 1.89 10*3/uL [facility] Lymphocytes/100 WBC (Bld) 16.1 % Low 20.0 - 42.0 % [facility] MCH (RBC) [Entitic mass] 29.2 pg 26.0 - 35.0 pg [facility] MCHC (RBC) [Mass/Vol] 31.9 % Low 32.0 - 34.5 % [facility] MCV (RBC) [Entitic vol] 91.4 fL 80.0 - 99.9 fL [facility] Monocytes (Bld) [#/Vol] 0.73 10*3/uL [facility] Monocytes/100 WBC (Bld) 6.2 % 2.0 - 12.0 % [facility] Neutrophils (Bld) [#/Vol] 9.02 10*3/uL High [facility] Platelet mean volume (Bld) [Entitic vol] 10.4 fL 7.0 - 12.0 fL [facility] Platelets (Bld) [#/Vol] 285 10*3/uL [facility] RBC (Bld) [#/Vol] 4.18 10*6/uL [facility] Segmented neutrophils/100 WBC (Bld) 77.0 % 43.0 - 80.0 % [facility] WBC (Bld) [#/Vol] 11.7 10*3/uL High [facility] Hepatic Function Panelon Albumin [Mass/Vol] 3.7 g/dL 3.5 - 5.2 g/dL [facility] ALP [Catalytic activity/Vol] 55 U/L 35 - 104 U/L [facility] ALT [Catalytic activity/Vol] 19 U/L 0 - 32 U/L [facility] AST [Catalytic activity/Vol] 14 U/L 0 - 31 U/L [facility] Bilirubin [Mass/Vol] 0.5 mg/dL 0.0 - 1 .2 mg/dL [facility] Bilirubin.direct [Mass/Vol] mg/dL 0.0 - 0.3 mg/dL [facility] Bilirubin.indirect [Mass/Vol] see below 0.0 - 1.0 mg/dL [facility] Comment on above: Indirect Bilirubin c annot be calculated since Total Bilirubin and/or Direct Bilirubin is below measurable range. Protein [Mass/Vol] 6.3 g/dL Low 6.4 - 8.3 g/dL [facility] Hgb A1Con 10-30-2022 HbA1c (Bld) [Mass fraction] 4.8 % Normal 4.0-5.6 [facility] Lipid Panelon 10-30-2022 Cholesterol [Mass/Vol] 99 mg/dL Normal 0-199 [facility] Cholesterol in HDL [Mass/Vol] 34 mg/dL Normal >40 [facility] Cholesterol in LDL [Mass/Vol] 43 mg/dL Normal 0-99 [facility] Triglyceride [Mass/Vol] 108 mg/dL Normal 0-149 [facility] VLDL Cholesterol (Calculated) 22 mg/dL Normal [facility] Cholesterol [Mass/Vol] 99 mg/dL 0 - 1 99 mg/dL [facility] Cholesterol in HDL [Mass/Vol] 34 mg/dL 40 - PINF mg/dL [facility] Cholesterol in LDL [Mass/Vol] 43 mg/dL 0 - 99 mg/dL [facility] Cholesterol in VLDL [Mass/Vol] 22 mg/dL [facility] Triglyceride [Mass/Vol] 108 mg/dL 0 - 149 mg/dL [facility] Liver Panelon 10-30-2022 Albumin [Mass/Vol] 3.7 g/dL Normal 3.5-5.2 [facility] ALP [Catalytic activity/Vol] 55 U/L Normal 35-104 [facility] ALT [Catalytic activity/Vol] 19 U/L Normal 0-32 [facility] AST [Catalytic activity/Vol] 14 U/L Normal 0-31 [facility] Bilirubin [Mass/Vol] 0.5 mg/dL Normal 0.0-1.2 [facility] Bilirubin Indirect see below Normal 0.0-1.0 [facility] Comment on above: Result Comment: Grace rect Bilirubin cannot be calculated since Total Bilirubin and/or Direct Bilirubin is below measurable range. Bilirubin.indirect [Mass/Vol] mg/dL Normal 0.0-0.3 [facility] Protein [Mass/Vol] 6.3 g/dL Low 6.4-8.3 [facility] METER GLUCOSEon 10-30-2022 Glucose [Mass/Vol] 111 mg/dL High 74-99 [facility] Magnesiumon 10-30-2022 Magnesium [Mass/Vol] 1.7 mg/dL Normal 1.6-2.6 [facility] Magnesium [Mass/Vol] 1.7 mg/dL 1.6 - 2 .6 mg/dL [facility] No Panel Informationon 10-30 Interpretation and review of laboratory results Abnormal [facility] POCT Glucoseon 10-30-2022 Glucose [Mass/Vol] 111 mg/dL High 74 - 99 mg/dL [facility] Interpretation and review of laboratory results Abnormal [facility] Phosphoruson 10-30-2022 Phosphate [Mass/Vol] 4.0 mg/dL Normal 2.5-4.5 [facility] Phosphate [Mass/Vol] 4.0 mg/dL 2.5 - 4 .5 mg/dL [facility] T4, Freeon 10-30-2022 Free T4 [Mass/Vol] 1.32 ng/dL 0.93 - 1. 70 ng/dL [facility] TSHon 10-30-2022 TSH [Mass/Vol] 0.828 [facility] TSH w/out Reflexon TSH w/out Reflex 0.828 uIU/mL Normal 0.270-4.200 [facility] Thyroxine Freeon 10-30-2022 Thyroxine Free 1.32 ng/dL Normal 0.93-1.70 [facility] Comprehensive Metabolic Pane evan 10-29-2022 Potassium see note Critically abnormal 3.5-5.0 [facility] Comment on above: Result Comment: Lisa cui order. Made no charge to patient for testing Corrected result; previously reported as 4.3 on 10/24/2022 at 19:57 by CRIAM Hemoglobin A1con 10-29-2022 HbA1c (Bld) [Mass fraction] 5.1 % 4.0 - 5.6 % [facility] Hgb A1Con 10-29-2022 HbA1c (Bld) [Mass fraction] 5.1 % Normal 4.0-5.6 [facility] METER GLUCOSEon 10-29-2022 Glucose [Mass/Vol] 128 mg/dL High 74-99 [facility] Glucose [Mass/Vol] 146 mg/dL High 74-99 [facility] Glucose [Mass/Vol] 104 mg/dL High 74-99 [facility] Glucose [Mass/Vol] 101 mg/dL High 74-99 [facility] No Panel Informationon 10-29 [facility] POC Urine Qualon 0 10-29-2022 Beta HCG ( test) Ql (U) Negative Negative [facility] [employer] Work Phone: Beta HCG ( test) Ql (U) [phone] [facility] Work Phone: Negative QC Pass/Fail Pass [facility] [employer] Work Phone: Positive QC Pass/Fail Pass [facility] Work Phone: POCT Glucoseon 10-29-2022 Glucose [Mass/Vol] 128 mg/dL High 74 - 99 mg/dL [facility] Interpretation and review of laboratory results Abnormal [facility] Glucose [Mass/Vol] 146 mg/dL High 74 - 99 mg/dL [facility] Interpretation and review of laboratory results Abnormal [facility] Glucose [Mass/Vol] 104 mg/dL High 74 - 99 mg/dL [facility] Interpretation and review of laboratory results Abnormal [facility] Glucose [Mass/Vol] 101 mg/dL High 74 - 99 mg/dL [facility] Interpretation and review of laboratory results Abnormal [facility] Surgical Specimenon 10-30-19 23 Surgical Specimen [facility] [address] [id number] FINAL SURGICAL PATHOLOGY REPORT NAME: BATOOL KINGSLEY Date of 10/29/2022 Collection: Medical Record [id number] Date of 10/29/2022 Number: Receipt: Age: 22 Y Sex: F Date 10/31/2022 12:02 Reported: Date Of : 2000 Merged With [facility] [id number] Admitting DERIC FLORENCE Number: Physician: Patient DIS [id number] Ordering DERIC FLORENCE Location: Physician: Accession Number: [id number] Additional Physicians:KEALA ARELLANO Diagnosis: Small intestine, limited resection: No diagnostic abnormality. SHANTA CAUSEY M.D. (Electronic Signature) Specimen Submitted: SMALL INTESTINE, RESECTION NOT TUMOR Clinical Notes: Operative Procedure: Gastric bypass Nuno-en-Y laparoscopic Preoperative Dx: Morbid obesity Microscopic Evaluation: Was performed. Gross Description: Submitted in one part in formalin labeled Batool Quarterman, segment small bowel is an oval shaped portion of hanson haq mucosal lined fibrous tissue, tax representative or portions of small bowel which measures 4.1 x 2.5 x 1.7 cm. Much of the exterior is covered by hanson haq, soft to finely folded mucosa. Numerous, small metallic surgical [place] are present throughout the exterior. Discrete mucosal lesions are not present. Sectioning is unremarkable. Entry Level Assistant Manager sections are submitted. Block label A1. (JORGE L:TAURUS) CODES: [id number]; Department of Pathology Page 1 of 1 Normal [facility] CBC (Hemogram)on 10-24-2022 Erythrocyte distribution width (RBC) [Ratio] 13.7 fL 11.5 - 15.0 fL [facility] Hematocrit (Bld) [Volume fraction] 43.9 % 34.0 - 48.0 % [facility] Hemoglobin (Bld) [Mass/Vol] 14.3 g/dL 11.5 - 15.5 g/dL [facility] MCH (RBC) [Entitic mass] 28.9 pg 26.0 - 35.0 pg [facility] MCHC (RBC) [Mass/Vol] 32.6 % 32.0 - 34.5 % [facility] MCV (RBC) [Entitic vol] 88.9 fL 80.0 - 99.9 fL [facility] Platelet mean volume (Bld) [Entitic vol] 10.6 fL 7.0 - 12.0 fL [facility] Platelets (Bld) [#/Vol] 321 10*3/uL [facility] RBC (Bld) [#/Vol] 4.94 10*6/uL [facility] WBC (Bld) [#/Vol] 7.0 10*3/uL [facility] CBC With Platelet No Differe ntialon 10-24-2022 Hematocrit (Bld) [Volume fraction] 43.9 % Normal 34.0-48.0 [facility] Hemoglobin (Bld) [Mass/Vol] 14.3 g/dL Normal 11.5-15.5 [facility] MCH (RBC) [Entitic mass] 28.9 pg Normal 26.0-35.0 [facility] MCHC 32.6 % Normal 32.0-34.5 [facility] MCV (RBC) [Entitic vol] 88.9 fL Normal 80.0-99.9 [facility] Platelet Count 321 E9/L Normal 130-450 [facility] Platelet mean volume (Bld) [Entitic vol] 10.6 fL Normal 7.0-12.0 [facility] RBC 4.94 E12/L Normal 3.50-5.50 [facility] RDW 13.7 fL Normal 11.5-15.0 [facility] WBC 7.0 E9/L Normal 4.5-11.5 [facility] Comprehensive Metabolic Pane l reflex Mgon 10-24-2022 Albumin [Mass/Vol] 4.6 g/dL Normal 3.5-5.2 [facility] ALP [Catalytic activity/Vol] 69 U/L Normal 35-104 [facility] ALT [Catalytic activity/Vol] 27 U/L Normal 0-32 [facility] Anion gap [Moles/Vol] 12 mmol/L Normal 7-16 [facility] AST [Catalytic activity/Vol] 16 U/L Normal 0-31 [facility] Bilirubin [Mass/Vol] 0.4 mg/dL Normal 0.0-1.2 [facility] Calcium [Mass/Vol] 9.3 mg/dL Normal 8.6-10.2 [facility] Chloride [Moles/Vol] 104 mmol/L Normal 98-107 [facility] CO2 [Moles/Vol] 24 mmol/L Normal 22-29 [facility] Creatinine [Mass/Vol] 0.6 mg/dL Normal 0.5-1.0 [facility] GFR Calculated >60 Normal >=60 [facility] Comment on above: Result Comment: Dion [...] secretion. Glucose [Mass/Vol] 79 mg/dL Normal 74-99 [facility] Magnesium [Moles/Vol] 4.3 mmol/L Normal 3.5-5.0 [facility] Protein [Mass/Vol] 7.6 g/dL Normal 6.4-8.3 [facility] Sodium [Moles/Vol] 140 mmol/L Normal 132-146 [facility] Urea nitrogen [Mass/Vol] 13 mg/dL Normal 6-20 [facility] Comprehensive metabolic 2000 panelon 10-24-2022 Potassium [Moles/Vol] 4.3 mmol/L 3.5 - 5.0 mmol/L [facility] Albumin [Mass/Vol] 4.6 g/dL 3.5 - 5.2 g/dL [facility] ALP [Catalytic activity/Vol] 69 U/L 35 - 104 U/L [facility] ALT [Catalytic activity/Vol] 27 U/L 0 - 32 U/L [facility] Anion gap [Moles/Vol] 12 mmol/L 7 - 16 mmol/L [facility] AST [Catalytic activity/Vol] 16 U/L 0 - 31 U/L [facility] Bilirubin [Mass/Vol] 0.4 mg/dL 0.0 - 1 .2 mg/dL [facility] Calcium [Mass/Vol] 9.3 mg/dL 8.6 - 10. 2 mg/dL [facility] Chloride [Moles/Vol] 104 mmol/L 98 - 10 7 mmol/L [facility] CO2 [Moles/Vol] 24 mmol/L 22 - 29 mmol/L [facility] Creatinine [Mass/Vol] 0.6 mg/dL 0.5 - 1.0 mg/dL [facility] GFR/1.73 sq M.predicted among non-blacks MDRD (S/P/Bld) [Vol rate/Area] mL/min/1.73 60 - PINF mL/min/1.73 [facility] Comment on above: Pediatric calculator link [...] [Mass/Vol] 79 mg/dL 74 - 99 mg/dL [facility] Potassium [Moles/Vol] 4.3 mmol/L 3.5 - 5.0 mmol/L [facility] Protein [Mass/Vol] 7.6 g/dL 6.4 - 8.3 g/dL [facility] Sodium [Moles/Vol] 140 mmol/L 132 - 146 mmol/L [facility] Urea nitrogen [Mass/Vol] 13 mg/dL 6 - 20 mg/dL [facility] ACT PARTIAL THROMBO TIMEon 0 - ACT PARTIAL THROMBO TIME 30.4 SECONDS Normal 20.0-32.1 [facility] Comment on above: Result Comment: APTT THERAPEUTIC RANGE = 43.6 TO 68.4 SECONDS Performed By: #### V ITB1, ZINC #### [facility] [address] [place] [address] #### B12, FOL, CMP, PREALB, ANDREZ, CBCD #### [facility] [address] [place] [address] CBC with DIFFERENTIALon 04-0 Basophils (Bld) [#/Vol] 0.0 10*3/uL Normal 0.0-0.1 [facility] Comment on above: Performed By: #### V ITB1, ZINC #### [facility] [address] [place] [address] #### B12, FOL, CMP, PREALB, ANDREZ, CBCD #### [facility] [address] [place] [address] Basophils/100 WBC (Bld) 0.5 % Normal 0.0-1.0 [facility] Comment on above: Performed By: #### V ITB1, ZINC #### [facility] [address] [place] [address] #### B12, FOL, CMP, PREALB, ANDREZ, CBCD #### [facility] [address] [place] [address] Eosinophils (Bld) [#/Vol] 0.3 10*3/uL Normal 0.0-0.4 [facility] Comment on above: Performed By: #### V ITB1, ZINC #### [facility] [address] [place] [address] #### B12, FOL, CMP, PREALB, ANDREZ, CBCD #### [facility] [address] [place] [address] Eosinophils/100 WBC (Bld) 4.1 % High 1.0-4.0 [facility] Comment on above: Performed By: #### V ITB1, ZINC #### [facility] [address] [place] [address] #### B12, FOL, CMP, PREALB, ANDREZ, CBCD #### [facility] [address] [place] [id number] Hematocrit (Bld) [Volume fraction] 40.6 % Normal 37.0-47.0 [facility] Comment on above: Performed By: #### V ITB1, ZINC #### [facility] [address] [place] [id number] #### B12, FOL, CMP, PREALB, ANDREZ, CBCD #### [facility] [address] [place] [address] Hemoglobin (Bld) [Mass/Vol] 13.2 g/dL Normal 12.0-16.0 [facility] [facility] Comment on above: Performed By: #### V ITB1, ZINC #### [facility] [address] [place] [address] #### B12, FOL, CMP, PREALB, ANDREZ, CBCD #### [facility] [address] [place] [address] 61673 IG # 0.0 10*3/uL Normal 0.0-0.1 [facility] Comment on above: Performed By: #### V ITB1, ZINC #### [facility] [address] [place] [address] #### B12, FOL, CMP, PREALB, ANDREZ, CBCD #### [facility] [address] [place] [address] 15246 IG % 0.5 % Normal 0.0-1.0 [facility] Comment on above: Performed By: #### V ITB1, ZINC #### [facility] [address] [place] [address] #### B12, FOL, CMP, PREALB, ANDREZ, CBCD #### [facility] [address] [place] [address] 87599 Lymphocytes (Bld) [#/Vol] 3.2 10*3/uL Normal 1.3-4.4 [facility] Comment on above: Performed By: #### V ITB1, ZINC #### [facility] [address] [place] [address] #### B12, FOL, CMP, PREALB, ANDREZ, CBCD #### [facility] [address] [place] [address] 76478 Lymphocytes/100 WBC (Bld) 41.8 % High 27.0-41.0 [facility] Comment on above: Performed By: #### V ITB1, ZINC #### [facility] [address] [place] [address] #### B12, FOL, CMP, PREALB, ANDREZ, CBCD #### [facility] [address] [place] [address] MCV (RBC) [Entitic vol] 88.6 fL Normal 81.0-99.0 [facility] Comment on above: Performed By: #### V ITB1, ZINC #### [facility] [address] [place] [address] #### B12, FOL, CMP, PREALB, ANDREZ, CBCD #### [facility] [address] [place] [address] 13774 MEAN CORPUSCULAR HGB 28.8 pg Normal 27.0-31.0 [facility] Comment on above: Performed By: #### V ITB1, ZINC #### [facility] [address] [place] [address] #### B12, FOL, CMP, PREALB, ANDREZ, CBCD #### [facility] [address] [place] [address] 68484 MEAN CORPUSCULAR HGB CONC 32.5 g/dl Low 33.0-37.0 [facility] Comment on above: Performed By: #### V ITB1, ZINC #### [facility] [address] [place] [address] #### B12, FOL, CMP, PREALB, ANDREZ, CBCD #### [facility] [address] [place] [address] 15927 Monocytes (Bld) [#/Vol] 0.4 10*3/uL Normal 0.1-1.0 [facility] Comment on above: Performed By: #### V ITB1, ZINC #### [facility] [address] [place] [address] #### B12, FOL, CMP, PREALB, ANDREZ, CBCD #### [facility] [address] [place] [address] 64978 Monocytes/100 WBC (Bld) 5.1 % Normal 3.0-9.0 [facility] Comment on above: Performed By: #### V ITB1, ZINC #### [facility] [address] [place] [address] #### B12, FOL, CMP, PREALB, ANDREZ, CBCD #### [facility] [address] [place] [address] 73858 Neutrophils (Bld) [#/Vol] 3.7 10*3/uL Normal 2.3-7.9 [facility] Comment on above: Performed By: #### V ITB1, ZINC #### [facility] [address] [place] [address] #### B12, FOL, CMP, PREALB, ANDREZ, CBCD #### [facility] [address] [place] [address] 46993 Neutrophils/100 WBC (Bld) 48.0 % Normal 47.0-73.0 [facility] Comment on above: Performed By: #### V ITB1, ZINC #### [facility] [address] [place] [address] #### B12, FOL, CMP, PREALB, ANDREZ, CBCD #### [facility] [address] [place] [address] 17460 NUCLEATED RED BLOOD CELL 0.0 10*3/uL Normal 0.0-0.0 [facility] Comment on above: Performed By: #### V ITB1, ZINC #### [facility] [address] [place] [address] #### B12, FOL, CMP, PREALB, ANDREZ, CBCD #### [facility] [address] [place] [address] 28699 NUCLEATED RED BLOOD CELL 0.0 % Normal 0.0-0.0 [facility] Comment on above: Performed By: #### V ITB1, ZINC #### [facility] [address] [place] [address] #### B12, FOL, CMP, PREALB, ANDREZ, CBCD #### [facility] [address] [place] [address] 71964 PLATELET COUNT AUTOMATED 300 10*3/uL Normal 130-400 [facility] Comment on above: Performed By: #### V ITB1, ZINC #### [facility] [address] [place] [address] #### B12, FOL, CMP, PREALB, ANDREZ, CBCD #### [facility] [address] [place] [address] Platelet mean volume (Bld) [Entitic vol] 10.7 fL Normal 9.6-12.3 [facility] Comment on above: Performed By: #### V ITB1, ZINC #### [facility] [address] [place] [address] #### B12, FOL, CMP, PREALB, ANDREZ, CBCD #### [facility] [address] [place] [address] 42467 RBC (Bld) [#/Vol] 4.58 10*6/uL Normal 4.10-5.10 [facility] Comment on above: Performed By: #### V ITB1, ZINC #### [facility] [address] [place] [address] #### B12, FOL, CMP, PREALB, ANDREZ, CBCD #### [facility] [address] [place] [address] 74260 RED CELL DISTRI WIDTH 13.3 % Normal 0-14.5 [facility] Comment on above: Performed By: #### V ITB1, ZINC #### [facility] [address] [place] [address] #### B12, FOL, CMP, PREALB, ANDREZ, CBCD #### [facility] [address] [place] [address] WBC (Bld) [#/Vol] 7.6 10*3/uL Normal 4.8-10.8 [facility] Comment on above: Performed By: #### V ITB1, ZINC #### [facility] [address] [place] [address] #### B12, FOL, CMP, PREALB, ANDREZ, CBCD #### [facility] [address] [place] [address] COMPREHENSIVE METABOLIC PANE Evan 10-04-2022 Albumin [Mass/Vol] 3.8 g/dL Normal 3.4-5.0 [facility] Comment on above: Performed By: #### V ITB1, ZINC #### [facility] [address] [place] [address] #### B12, FOL, CMP, PREALB, ANDREZ, CBCD #### [facility] [address] [place] [address] ALP [Catalytic activity/Vol] 63 U/L Normal 46-116 [facility] Comment on above: Performed By: #### V ITB1, ZINC #### [facility] [address] [place] [address] #### B12, FOL, CMP, PREALB, ANDREZ, CBCD #### [facility] [address] [place] [address] ALT [Catalytic activity/Vol] 18 U/L Normal 10-49 [facility] Comment on above: Performed By: #### V ITB1, ZINC #### [facility] [address] [place] [address] #### B12, FOL, CMP, PREALB, ANDREZ, CBCD #### [facility] [address] [place] [address] 05499 AST [Catalytic activity/Vol] 15 U/L Normal 0-34 [facility] Comment on above: Performed By: #### V ITB1, ZINC #### [facility] [address] [place] [address] #### B12, FOL, CMP, PREALB, ANDREZ, CBCD #### [facility] [address] [place] [address] 57204 Bilirubin [Mass/Vol] 0.3 mg/dL Normal 0.3-1.2 [facility] Comment on above: Performed By: #### V ITB1, ZINC #### [facility] [address] [place] [address] #### B12, FOL, CMP, PREALB, ANDREZ, CBCD #### [facility] [address] [place] [address] CALCIUM,TOTAL 9.2 md/dL Normal 8.7-10.4 [facility] Comment on above: Performed By: #### V ITB1, ZINC #### [facility] [address] [place] [address] #### B12, FOL, CMP, PREALB, ANDREZ, CBCD #### [facility] [address] [place] [address] Chloride [Moles/Vol] 105 mmol/L Normal 98-107 [facility] Comment on above: Performed By: #### V ITB1, ZINC #### [facility] [address] [place] [address] #### B12, FOL, CMP, PREALB, ANDREZ, CBCD #### [facility] [address] [place] [address] 42586 CO2 [Moles/Vol] 27 mmol/L Normal 20-31 [facility] Comment on above: Performed By: #### V ITB1, ZINC #### [facility] [address] [place] [address] #### B12, FOL, CMP, PREALB, ANDREZ, CBCD #### [facility] [address] [place] [address] Creatinine [Mass/Vol] 0.61 mg/dL Normal 0.55-1.02 [facility] Comment on above: Performed By: #### V ITB1, ZINC #### [facility] [address] [place] [address] #### B12, FOL, CMP, PREALB, ANDREZ, CBCD #### [facility] [address] [place] [address] EST GLOM FILT > 60 Normal [facility] Comment on above: Result Comment: Result [...] #### V ITB1, ZINC #### [facility] [address] [place] [address] #### B12, FOL, CMP, PREALB, ANDREZ, CBCD #### [facility] [address] [place] [address] 73938 ESTIMATED GLOM FILT RATE > 60 Normal [facility] Comment on above: Performed By: #### V ITB1, ZINC #### [facility] [address] [place] [address] #### B12, FOL, CMP, PREALB, ANDREZ, CBCD #### [facility] [address] [place] [address] 59668 Glucose [Mass/Vol] 87 mg/dL Normal 65-99 [facility] Comment on above: Performed By: #### V ITB1, ZINC #### [facility] [address] [place] [address] #### B12, FOL, CMP, PREALB, ANDREZ, CBCD #### [facility] [address] [place] [address] 69509 Potassium [Moles/Vol] 4.2 mmol/L Normal 3.4-5.1 [facility] Comment on above: Performed By: #### V ITB1, ZINC #### [facility] [address] [place] [address] #### B12, FOL, CMP, PREALB, ANDREZ, CBCD #### [facility] [address] [place] [address] 42855 Protein [Mass/Vol] 6.9 g/dL Normal 6.0-8.0 [facility] Comment on above: Performed By: #### V ITB1, ZINC #### [facility] [address] [place] [address] #### B12, FOL, CMP, PREALB, ANDREZ, CBCD #### [facility] [address] [place] [address] Sodium [Moles/Vol] 139 mmol/L Normal 136-145 [facility] Comment on above: Performed By: #### V ITB1, ZINC #### [facility] [address] [place] [address] #### B12, FOL, CMP, PREALB, ANDREZ, CBCD #### [facility] [address] [place] [address] Urea nitrogen [Mass/Vol] 14 mg/dL Normal 9-23 [facility] Comment on above: Performed By: #### V ITB1, ZINC #### [facility] [address] [place] [address] #### B12, FOL, CMP, PREALB, ANDREZ, CBCD #### [facility] [address] [place] [address] [id number] 10-04-2022 ESTIMATED AVERAGE GLUCOSE 100 Normal [facility] Comment on above: Performed By: #### V ITB1, ZINC #### [facility] [address] [place] [address] #### B12, FOL, CMP, PREALB, ANDREZ, CBCD #### [facility] [address] [place] [address] HbA1c (Bld) [Mass fraction] 5.1 % Normal 4.8-5.6 [facility] Comment on above: Result Comment: Standarization of method based on National Glycohemoglobin Standardization Program (NGSP). HEMOGLOBIN A1c(%) DEGREE of GLUCOSE CONTROL 5.7-6.4% Prediabetes range >6.4% Diagnosis of Diabetes <7% Glycemic control for adults with Diabetes Performed By: #### V ITB1, ZINC #### [facility] [address] [place] [address] #### B12, FOL, CMP, PREALB, ANDREZ, CBCD #### [facility] [address] [place] [address] 30100 LIPID PANEL CHOLESTEROL/HDLo n 10-04-2022 Cholesterol [Mass/Vol] 122 mg/dL Normal <200 [facility] Comment on above: Performed By: #### V ITB1, ZINC #### [facility] [address] [place] [address] #### B12, FOL, CMP, PREALB, ANDREZ, CBCD #### [facility] [address] [place] [address] 55153 Cholesterol in HDL [Mass/Vol] 28 mg/dL Low 40-60 [facility] Comment on above: Performed By: #### V ITB1, ZINC #### [facility] [address] [place] [address] #### B12, FOL, CMP, PREALB, ANDREZ, CBCD #### [facility] [address] [place] [address] 66119 Cholesterol in LDL [Mass/Vol] 55 mg/dL Normal 9-159 [facility] Comment on above: Performed By: #### V ITB1, ZINC #### [facility] [address] [place] [address] #### B12, FOL, CMP, PREALB, ANDREZ, CBCD #### [facility] [address] [place] [address] 06910 Cholesterol.total/Chol esterol in HDL [Mass ratio] 4.4 {ratio} Normal [facility] Comment on above: Performed By: #### V ITB1, ZINC #### [facility] [address] [place] [address] #### B12, FOL, CMP, PREALB, ANDREZ, CBCD #### [facility] [address] [place] [address] Triglyceride [Mass/Vol] 196 mg/dL High <150 [facility] Comment on above: Result Comment: TRIGLYCERIDE RISK ASSESSMENT: 150-199 mg/dl BORDERLINE HIGH >200 mg//dl HIGH . Performed By: #### V ITB1, ZINC #### [facility] [address] [place] [address] #### B12, FOL, CMP, PREALB, ANDREZ, CBCD #### [facility] [address] [place] [address] 77095 VLDL CHOLESTEROL 39 mg/dL Normal 6-40 [facility] Comment on above: Performed By: #### V ITB1, ZINC #### [facility] [address] [place] [address] #### B12, FOL, CMP, PREALB, ANDREZ, CBCD #### [facility] [address] [place] [address] 31895 THROAT CULTUREon 08-15-2022 Throat culture THROAT CULTURE NORMAL ARIN Normal [facility] Comment on above: Performed By: #### V ITB1, ZINC #### [facility] [address] [place] [address] #### B12, FOL, CMP, PREALB, ANDREZ, CBCD #### [facility] [address] [place] [address] 25375 NOVL CORONAVIRUS NAAon 08-14 SARS-CoV-2 (COVID-19) RNA SUJATA+probe Ql (Unsp spec) Detected Abnormal Not Detected [facility] Comment on above: Result Comment: Evelyn ents who have a positive COVID-19 test result may now have treatment options. Treatment options are available for patients with mild to moderate symptoms and for hospitalized patients. Visit our website at [email or web address] for resources and information. This nucleic acid amplification test was developed and its performance characteristics determined by [employer]. Nucleic acid amplification tests include RT- PCR [...] #### V ITB1, ZINC #### [facility] [address] [place] [address] #### B12, FOL, CMP, PREALB, ANDREZ, CBCD #### [facility] [address] [place] [address] 77684 CBC with DIFFERENTIALon 08-01 Basophils (Bld) [#/Vol] 0.0 10*3/uL Normal 0.0-0.1 [facility] Comment on above: Performed By: #### V ITB1, ZINC #### [facility] [address] [place] [address] #### B12, FOL, CMP, PREALB, ANDREZ, CBCD #### [facility] [address] [place] [address] 78826 Basophils/100 WBC (Bld) 0.5 % Normal 0.0-1.0 [facility] Comment on above: Performed By: #### V ITB1, ZINC #### [facility] [address] [place] [address] #### B12, FOL, CMP, PREALB, ANDREZ, CBCD #### [facility] [address] [place] [address] 51349 Eosinophils (Bld) [#/Vol] 0.2 10*3/uL Normal 0.0-0.4 [facility] Comment on above: Performed By: #### V ITB1, ZINC #### [facility] [address] [place] [address] #### B12, FOL, CMP, PREALB, ANDREZ, CBCD #### [facility] [address] [place] [address] 38146 Eosinophils/100 WBC (Bld) 4.2 % High 1.0-4.0 [facility] Comment on above: Performed By: #### V ITB1, ZINC #### [facility] [address] [place] [address] #### B12, FOL, CMP, PREALB, ANDREZ, CBCD #### [facility] [address] [place] [address] 67855 Hematocrit (Bld) [Volume fraction] 43.8 % Normal 37.0-47.0 [facility] Comment on above: Performed By: #### V ITB1, ZINC #### [facility] [address] [place] [address] #### B12, FOL, CMP, PREALB, ANDREZ, CBCD #### [facility] [address] [place] [address] 68857 Hemoglobin (Bld) [Mass/Vol] 14.0 g/dL Normal 12.0-16.0 [facility] Comment on above: Performed By: #### V ITB1, ZINC #### [facility] [address] [place] [address] #### B12, FOL, CMP, PREALB, ANDREZ, CBCD #### [facility] [address] [place] [address] 49624 IG # 0.1 10*3/uL Normal 0.0-0.1 [facility] Comment on above: Performed By: #### V ITB1, ZINC #### [facility] [address] [place] [address] #### B12, FOL, CMP, PREALB, ANDREZ, CBCD #### [facility] [address] [place] [address] IG % 1.1 % High 0.0-1.0 [facility] Comment on above: Performed By: #### V ITB1, ZINC #### [facility] [address] [place] [address] #### B12, FOL, CMP, PREALB, ANDREZ, CBCD #### [facility] [address] [place] [address] 48283 Lymphocytes (Bld) [#/Vol] 2.9 10*3/uL Normal 1.3-4.4 [facility] Comment on above: Performed By: #### V ITB1, ZINC #### [facility] [address] [place] [address] #### B12, FOL, CMP, PREALB, ANDREZ, CBCD #### [facility] [address] [place] [address] 74750 Lymphocytes/100 WBC (Bld) 51.5 % High 27.0-41.0 [facility] Comment on above: Performed By: #### V ITB1, ZINC #### [facility] [address] [place] [address] #### B12, FOL, CMP, PREALB, ANDREZ, CBCD #### [facility] [address] [place] [address] 22126 MCV (RBC) [Entitic vol] 88.8 fL Normal 81.0-99.0 [facility] Comment on above: Performed By: #### V ITB1, ZINC #### [facility] [address] [place] [address] #### B12, FOL, CMP, PREALB, ANDREZ, CBCD #### [facility] [address] [place] [address] 08349 MEAN CORPUSCULAR HGB 28.4 pg Normal 27.0-31.0 [facility] Comment on above: Performed By: #### V ITB1, ZINC #### [facility] [address] [place] [address] #### B12, FOL, CMP, PREALB, ANDREZ, CBCD #### [facility] [address] [place] [address] 70475 MEAN CORPUSCULAR HGB CONC 32.0 g/dl Low 33.0-37.0 [facility] Comment on above: Performed By: #### V ITB1, ZINC #### [facility] [address] [place] [address] #### B12, FOL, CMP, PREALB, ANDREZ, CBCD #### [facility] [address] [place] [address] 19089 Monocytes (Bld) [#/Vol] 0.4 10*3/uL Normal 0.1-1.0 [facility] Comment on above: Performed By: #### V ITB1, ZINC #### [facility] [address] [place] [address] #### B12, FOL, CMP, PREALB, ANDREZ, CBCD #### [facility] [address] [place] [address] 75312 Monocytes/100 WBC (Bld) 7.0 % Normal 3.0-9.0 [facility] Comment on above: Performed By: #### V ITB1, ZINC #### [facility] [address] [place] [address] #### B12, FOL, CMP, PREALB, ANDREZ, CBCD #### [facility] [address] [place] [address] 62856 Neutrophils (Bld) [#/Vol] 2.0 10*3/uL Low 2.3-7.9 [facility] Comment on above: Performed By: #### V ITB1, ZINC #### [facility] [address] [place] [address] #### B12, FOL, CMP, PREALB, ANDREZ, CBCD #### [facility] [address] [place] [address] 28280 Neutrophils/100 WBC (Bld) 35.7 % Low 47.0-73.0 [facility] Comment on above: Performed By: #### V ITB1, ZINC #### [facility] [address] [place] [address] #### B12, FOL, CMP, PREALB, ANDREZ, CBCD #### [facility] [address] [place] [address] 14978 NUCLEATED RED BLOOD CELL 0.0 10*3/uL Normal 0.0-0.0 [facility] Comment on above: Performed By: #### V ITB1, ZINC #### [facility] [address] [place] [address] #### B12, FOL, CMP, PREALB, ANDREZ, CBCD #### [facility] [address] [place] [address] 83093 NUCLEATED RED BLOOD CELL 0.0 % Normal 0.0-0.0 [facility] Comment on above: Performed By: #### V ITB1, ZINC #### [facility] [address] [place] [address] #### B12, FOL, CMP, PREALB, ANDREZ, CBCD #### [facility] [address] [place] [address] 07642 PLATELET COUNT AUTOMATED 277 10*3/uL Normal 130-400 [facility] Comment on above: Performed By: #### V ITB1, ZINC #### [facility] [address] [place] [address] #### B12, FOL, CMP, PREALB, ANDREZ, CBCD #### [facility] [address] [place] [address] 51564 Platelet mean volume (Bld) [Entitic vol] 10.1 fL Normal 9.6-12.3 [facility] Comment on above: Performed By: #### V ITB1, ZINC #### [facility] [address] [place] [address] #### B12, FOL, CMP, PREALB, ANDREZ, CBCD #### [facility] [address] [place] [address] 89835 RBC (Bld) [#/Vol] 4.93 10*6/uL Normal 4.10-5.10 [facility] Comment on above: Performed By: #### V ITB1, ZINC #### [facility] [address] [place] [address] #### B12, FOL, CMP, PREALB, ANDREZ, CBCD #### [facility] [address] [place] [address] 97746 RED CELL DISTRI WIDTH 13.6 % Normal 0-14.5 [facility] Comment on above: Performed By: #### V ITB1, ZINC #### [facility] [address] [place] [address] #### B12, FOL, CMP, PREALB, ANDREZ, CBCD #### [facility] [address] [place] [address] 69188 WBC (Bld) [#/Vol] 5.7 10*3/uL Normal 4.8-10.8 [facility] Comment on above: Performed By: #### V ITB1, ZINC #### [facility] [address] [place] [address] #### B12, FOL, CMP, PREALB, ANDREZ, CBCD #### [facility] [address] [place] [address] 30067 CHEST (2 V)on 08-13-2022 CRCXR Name: BATOOL KINGSLEY Phys: KAELA ARELLANO CNP : 2000 Age: 22 Sex: F Acct: [id number] Loc: RAD Exam Date: 08/13/2022 Status: REG CLI Radiology No: [id number] Unit No: [id number] EXAM# TYPE/EXAM RESULT [id number] RAD/CHEST (2 V) SEE REPORT INDICATION: Stuffy [...] CC: Technologist: WIN CHRISTIE Transcribed Date/Time: 08/13/2022 (6505) Dietary Server: [employer] Printed Date/Time: 08/13/2022 (3545) PAGE 1 Signed Report Normal [facility] COMPREHENSIVE METABOLIC PANE Evan 08-13-2022 Albumin [Mass/Vol] 3.7 g/dL Normal 3.4-5.0 [facility] Comment on above: Performed By: #### V ITB1, ZINC #### [facility] [address] #### B12, FOL, CMP, PREALB, ANDREZ, CBCD #### [facility] [address] [place] [address] 57593 ALP [Catalytic activity/Vol] 56 U/L Normal 46-116 [facility] Comment on above: Performed By: #### V ITB1, ZINC #### [facility] [address] [place] [address] #### B12, FOL, CMP, PREALB, ANDREZ, CBCD #### [facility] [address] [place] [address] 35077 ALT [Catalytic activity/Vol] 21 U/L Normal 10-49 [facility] Comment on above: Performed By: #### V ITB1, ZINC #### [facility] [address] [place] [address] #### B12, FOL, CMP, PREALB, ANDREZ, CBCD #### [facility] [address] [place] [address] 29779 AST [Catalytic activity/Vol] 23 U/L Normal 0-34 [facility] Comment on above: Performed By: #### V ITB1, ZINC #### [facility] [address] [place] [address] #### B12, FOL, CMP, PREALB, ANDREZ, CBCD #### [facility] [address] [place] [address] Bilirubin [Mass/Vol] mg/dL Low 0.3-1.2 [facility] Comment on above: Performed By: #### V ITB1, ZINC #### [facility] [address] [place] [address] #### B12, FOL, CMP, PREALB, ANDREZ, CBCD #### [facility] [address] [place] [id number] CALCIUM,TOTAL 9.2 md/dL Normal 8.7-10.4 [facility] Comment on above: Performed By: #### V ITB1, ZINC #### [facility] [address] [place] [address] #### B12, FOL, CMP, PREALB, ANDREZ, CBCD #### [facility] [address] [place] [id number] Chloride [Moles/Vol] 105 mmol/L Normal 98-107 [facility] Comment on above: Performed By: #### V ITB1, ZINC #### [facility] [address] [place] [address] #### B12, FOL, CMP, PREALB, ANDREZ, CBCD #### [facility] [address] [place] [id number] CO2 [Moles/Vol] 25 mmol/L Normal 20-31 [facility] Comment on above: Performed By: #### V ITB1, ZINC #### [facility] [address] [place] [address] #### B12, FOL, CMP, PREALB, ANDREZ, CBCD #### [facility] [address] [place] [address] 87851 Creatinine [Mass/Vol] 0.53 mg/dL Low 0.55-1.02 [facility] Comment on above: Performed By: #### V ITB1, ZINC #### [facility] [address] [place] [address] #### B12, FOL, CMP, PREALB, ANDREZ, CBCD #### [facility] [address] [place] [address] EST GLOM FILT > 60 Normal [facility] Comment on above: Result Comment: Result [...] #### V ITB1, ZINC #### [facility] [address] [place] [address] #### B12, FOL, CMP, PREALB, ANDREZ, CBCD #### [facility] [address] [place] [address] ESTIMATED GLOM FILT RATE > 60 Normal [facility] Comment on above: Performed By: #### V ITB1, ZINC #### [facility] [address] [place] [address] #### B12, FOL, CMP, PREALB, ANDREZ, CBCD #### [facility] [address] [place] [address] Glucose [Mass/Vol] 81 mg/dL Normal 65-99 [facility] Comment on above: Performed By: #### V ITB1, ZINC #### [facility] [address] [place] [address] #### B12, FOL, CMP, PREALB, ANDREZ, CBCD #### [facility] [address] [place] [address] 47427 Potassium [Moles/Vol] 4.5 mmol/L Normal 3.4-5.1 [facility] Comment on above: Performed By: #### V ITB1, ZINC #### [facility] [address] [place] [address] #### B12, FOL, CMP, PREALB, ANDREZ, CBCD #### [facility] [address] [place] [address] 27767 Protein [Mass/Vol] 7.0 g/dL Normal 6.0-8.0 [facility] Comment on above: Performed By: #### V ITB1, ZINC #### [facility] [address] [place] [address] #### B12, FOL, CMP, PREALB, ANDREZ, CBCD #### [facility] [address] [place] [address] 59117 Sodium [Moles/Vol] 138 mmol/L Normal 136-145 [facility] Comment on above: Performed By: #### V ITB1, ZINC #### [facility] [address] [place] [address] #### B12, FOL, CMP, PREALB, ANDREZ, CBCD #### [facility] [address] [place] [address] 01232 Urea nitrogen [Mass/Vol] 7 mg/dL Low 9-23 [facility] Comment on above: Performed By: #### V ITB1, ZINC #### [facility] [address] [place] [address] #### B12, FOL, CMP, PREALB, ANDREZ, CBCD #### [facility] [address] [place] [address] 22921 ESR (Sed Rate)on 08-13-2022 ESR (Bld) [Velocity] 20 mm/h Normal 0-20 [facility] Comment on above: Performed By: #### V ITB1, ZINC #### [facility] [address] [place] [address] #### B12, FOL, CMP, PREALB, ANDREZ, CBCD #### [facility] [address] [place] [address] 13999 CBC with DIFFERENTIALon 07-03 Basophils (Bld) [#/Vol] 0.1 10*3/uL Normal 0.0-0.1 [facility] Comment on above: Performed By: #### C MP, TSH, LIPPAN, HBA1C, CBCD, INS #### [facility] [address] [place] [address] 14839 Basophils/100 WBC (Bld) 0.7 % Normal 0.0-1.0 [facility] Comment on above: Performed By: #### C MP, TSH, LIPPAN, HBA1C, CBCD, INS #### [facility] [address] [place] [address] 10637 Eosinophils (Bld) [#/Vol] 0.3 10*3/uL Normal 0.0-0.4 [facility] Comment on above: Performed By: #### C MP, TSH, LIPPAN, HBA1C, CBCD, INS #### [facility] [address] [place] [address] 24475 Eosinophils/100 WBC (Bld) 4.3 % High 1.0-4.0 [facility] Comment on above: Performed By: #### C MP, TSH, LIPPAN, HBA1C, CBCD, INS #### [facility] [address] [place] [address] 37893 Hematocrit (Bld) [Volume fraction] 43.7 % Normal 37.0-47.0 [facility] Comment on above: Performed By: #### C MP, TSH, LIPPAN, HBA1C, CBCD, INS #### [facility] [address] [place] [address] 70829 Hemoglobin (Bld) [Mass/Vol] 13.9 g/dL Normal 12.0-16.0 [facility] Comment on above: Performed By: #### C MP, TSH, LIPPAN, HBA1C, CBCD, INS #### [facility] [address] [place] [address] 59801 IG # 0.0 10*3/uL Normal 0.0-0.1 [facility] Comment on above: Performed By: #### C MP, TSH, LIPPAN, HBA1C, CBCD, INS #### [facility] [address] [place] [address] 55887 IG % 0.4 % Normal 0.0-1.0 [facility] Comment on above: Performed By: #### C MP, TSH, LIPPAN, HBA1C, CBCD, INS #### [facility] [address] [place] [address] 15380 Lymphocytes (Bld) [#/Vol] 3.2 10*3/uL Normal 1.3-4.4 [facility] Comment on above: Performed By: #### C MP, TSH, LIPPAN, HBA1C, CBCD, INS #### [facility] [address] [place] [address] 89752 Lymphocytes/100 WBC (Bld) 42.7 % High 27.0-41.0 [facility] Comment on above: Performed By: #### C MP, TSH, LIPPAN, HBA1C, CBCD, INS #### [facility] [address] [place] [address] 83174 MCV (RBC) [Entitic vol] 90.3 fL Normal 81.0-99.0 [facility] Comment on above: Performed By: #### C MP, TSH, LIPPAN, HBA1C, CBCD, INS #### [facility] [address] [place] [address] 59633 MEAN CORPUSCULAR HGB 28.7 pg Normal 27.0-31.0 [facility] Comment on above: Performed By: #### C MP, TSH, LIPPAN, HBA1C, CBCD, INS #### [facility] [address] [place] [address] 32360 MEAN CORPUSCULAR HGB CONC 31.8 g/dl Low 33.0-37.0 [facility] Comment on above: Performed By: #### C MP, TSH, LIPPAN, HBA1C, CBCD, INS #### [facility] [address] [place] [address] Monocytes (Bld) [#/Vol] 0.4 10*3/uL Normal 0.1-1.0 [facility] Comment on above: Performed By: #### C MP, TSH, LIPPAN, HBA1C, CBCD, INS #### [facility] [address] [place] [address] 62683 Monocytes/100 WBC (Bld) 5.4 % Normal 3.0-9.0 [facility] Comment on above: Performed By: #### C MP, TSH, LIPPAN, HBA1C, CBCD, INS #### [facility] [address] [place] [address] 72282 Neutrophils (Bld) [#/Vol] 3.4 10*3/uL Normal 2.3-7.9 [facility] Comment on above: Performed By: #### C MP, TSH, LIPPAN, HBA1C, CBCD, INS #### [facility] [address] [place] [address] 20770 Neutrophils/100 WBC (Bld) 46.5 % Low 47.0-73.0 [facility] Comment on above: Performed By: #### C MP, TSH, LIPPAN, HBA1C, CBCD, INS #### [facility] [address] [place] [address] 19928 NUCLEATED RED BLOOD CELL 0.0 10*3/uL Normal 0.0-0.0 [facility] Comment on above: Performed By: #### C MP, TSH, LIPPAN, HBA1C, CBCD, INS #### [facility] [address] [place] [address] 48295 NUCLEATED RED BLOOD CELL 0.0 % Normal 0.0-0.0 [facility] Comment on above: Performed By: #### C MP, TSH, LIPPAN, HBA1C, CBCD, INS #### [facility] [address] [place] [address] PLATELET COUNT AUTOMATED 309 10*3/uL Normal 130-400 [facility] Comment on above: Performed By: #### C MP, TSH, LIPPAN, HBA1C, CBCD, INS #### [facility] [address] [place] [address] Platelet mean volume (Bld) [Entitic vol] 10.3 fL Normal 9.6-12.3 [facility] Comment on above: Performed By: #### C MP, TSH, LIPPAN, HBA1C, CBCD, INS #### [facility] [address] [place] [address] RBC (Bld) [#/Vol] 4.84 10*6/uL Normal 4.10-5.10 [facility] Comment on above: Performed By: #### C MP, TSH, LIPPAN, HBA1C, CBCD, INS #### [facility] [address] [place] [address] RED CELL DISTRI WIDTH 13.5 % Normal 0-14.5 [facility] Comment on above: Performed By: #### C MP, TSH, LIPPAN, HBA1C, CBCD, INS #### [facility] [address] [place] [address] WBC (Bld) [#/Vol] 7.4 10*3/uL Normal 4.8-10.8 [facility] Comment on above: Performed By: #### C MP, TSH, LIPPAN, HBA1C, CBCD, INS #### [facility] [address] [place] [address] COMPREHENSIVE METABOLIC PANE Evan 07-31-2022 Albumin [Mass/Vol] 3.9 g/dL Normal 3.4-5.0 [facility] Comment on above: Performed By: #### V ITB1, ZINC #### [facility] [address] [place] [address] #### B12, FOL, CMP, PREALB, ADNREZ, CBCD #### [facility] [address] [place] [address] ALP [Catalytic activity/Vol] 60 U/L Normal 46-116 [facility] Comment on above: Performed By: #### V ITB1, ZINC #### [facility] [address] [place] [address] #### B12, FOL, CMP, PREALB, ANDREZ, CBCD #### [facility] [address] [place] [address] 85814 ALT [Catalytic activity/Vol] 23 U/L Normal 10-49 [facility] Comment on above: Performed By: #### V ITB1, ZINC #### [facility] [address] [place] [address] #### B12, FOL, CMP, PREALB, ANDREZ, CBCD #### [facility] [address] [place] [address] 14339 AST [Catalytic activity/Vol] 17 U/L Normal 0-34 [facility] Comment on above: Performed By: #### V ITB1, ZINC #### [facility] [address] [place] [address] #### B12, FOL, CMP, PREALB, ANDREZ, CBCD #### [facility] [address] [place] [address] 96286 Bilirubin [Mass/Vol] 0.3 mg/dL Normal 0.3-1.2 [facility] Comment on above: Performed By: #### V ITB1, ZINC #### [facility] [address] [place] [address] #### B12, FOL, CMP, PREALB, ANDREZ, CBCD #### [facility] [address] [place] [address] 23358 CALCIUM,TOTAL 9.6 md/dL Normal 8.7-10.4 [facility] Comment on above: Performed By: #### V ITB1, ZINC #### [facility] [address] [place] [address] #### B12, FOL, CMP, PREALB, ANDREZ, CBCD #### [facility] [address] [place] [address] Chloride [Moles/Vol] 102 mmol/L Normal 98-107 [facility] Comment on above: Performed By: #### V ITB1, ZINC #### [facility] [address] [place] [address] #### B12, FOL, CMP, PREALB, ANDREZ, CBCD #### [facility] [address] [place] [address] CO2 [Moles/Vol] 27 mmol/L Normal 20-31 [facility] Comment on above: Performed By: #### V ITB1, ZINC #### [facility] [address] [place] [address] #### B12, FOL, CMP, PREALB, ANDREZ, CBCD #### [facility] [address] [place] [address] Creatinine [Mass/Vol] 0.58 mg/dL Normal 0.55-1.02 [facility] Comment on above: Performed By: #### V ITB1, ZINC #### [facility] [address] [place] [address] #### B12, FOL, CMP, PREALB, ANDREZ, CBCD #### [facility] [address] [place] [address] EST GLOM FILT > 60 Normal [facility] Comment on above: Result Comment: Result [...] #### V ITB1, ZINC #### [facility] [address] [place] [address] #### B12, FOL, CMP, PREALB, ANDREZ, CBCD #### [facility] [address] [place] [address] 25353 ESTIMATED GLOM FILT RATE > 60 Normal [facility] Comment on above: Performed By: #### V ITB1, ZINC #### [facility] [address] [place] [address] #### B12, FOL, CMP, PREALB, ANDREZ, CBCD #### [facility] [address] [place] [address] 61519 Glucose [Mass/Vol] 73 mg/dL Normal 65-99 [facility] Comment on above: Performed By: #### V ITB1, ZINC #### [facility] [address] [place] [address] #### B12, FOL, CMP, PREALB, ANDREZ, CBCD #### [facility] [address] [place] [address] 41428 Potassium [Moles/Vol] 4.2 mmol/L Normal 3.4-5.1 [facility] Comment on above: Performed By: #### V ITB1, ZINC #### [facility] [address] [place] [address] #### B12, FOL, CMP, PREALB, ANDREZ, CBCD #### [facility] [address] [place] [address] 07984 Protein [Mass/Vol] 7.2 g/dL Normal 6.0-8.0 [facility] Comment on above: Performed By: #### V ITB1, ZINC #### [facility] [address] [place] [address] #### B12, FOL, CMP, PREALB, ANDREZ, CBCD #### [facility] [address] [place] [address] 67431 Sodium [Moles/Vol] 137 mmol/L Normal 136-145 [facility] Comment on above: Performed By: #### V ITB1, ZINC #### [facility] [address] [place] [address] #### B12, FOL, CMP, PREALB, ANDREZ, CBCD #### [facility] [address] [place] [address] Urea nitrogen [Mass/Vol] 11 mg/dL Normal 9-23 [facility] Comment on above: Performed By: #### V ITB1, ZINC #### [facility] [address] [place] [address] #### B12, FOL, CMP, PREALB, ANDREZ, CBCD #### [facility] [address] [place] [address] 69921 [id number] 07-31-2022 ESTIMATED AVERAGE GLUCOSE 100 Normal [facility] Comment on above: Performed By: #### V ITB1, ZINC #### [facility] [address] [place] [address] #### B12, FOL, CMP, PREALB, ANDREZ, CBCD #### [facility] [address] [place] [address] 87927 HbA1c (Bld) [Mass fraction] 5.1 % Normal 4.8-5.6 [facility] Comment on above: Result Comment: Standarization of method based on National Glycohemoglobin Standardization Program (NGSP). HEMOGLOBIN A1c(%) DEGREE of GLUCOSE CONTROL 5.7-6.4% Prediabetes range >6.4% Diagnosis of Diabetes <7% Glycemic control for adults with Diabetes Performed By: #### V ITB1, ZINC #### [facility] [address] [place] [address] #### B12, FOL, CMP, PREALB, ANDREZ, CBCD #### [facility] [address] [place] [address] INSULINon 07-31-2022 INSULIN 45.6 mU/L High 2.6-37.6 [facility] Comment on above: Performed By: #### V ITB1, ZINC #### [facility] [address] [place] [address] #### B12, FOL, CMP, PREALB, ANDREZ, CBCD #### [facility] [address] [place] [address] LIPID PANEL CHOLESTEROL/HDLo n 07-31-2022 Cholesterol [Mass/Vol] 170 mg/dL Normal <200 [facility] Comment on above: Performed By: #### V ITB1, ZINC #### [facility] [address] [place] [address] #### B12, FOL, CMP, PREALB, ANDREZ, CBCD #### [facility] [address] [place] [address] Cholesterol in HDL [Mass/Vol] 31 mg/dL Low 40-60 [facility] Comment on above: Performed By: #### V ITB1, ZINC #### [facility] [address] [place] [address] #### B12, FOL, CMP, PREALB, ANDREZ, CBCD #### [facility] [address] [place] [address] 21693 Cholesterol in LDL [Mass/Vol] 73 mg/dL Normal 9-159 [facility] Comment on above: Performed By: #### V ITB1, ZINC #### [facility] [address] [place] [address] #### B12, FOL, CMP, PREALB, ANDREZ, CBCD #### [facility] [address] [place] [address] Cholesterol.total/Chol esterol in HDL [Mass ratio] 5.5 {ratio} Normal [facility] Comment on above: Performed By: #### V ITB1, ZINC #### [facility] [address] [place] [address] #### B12, FOL, CMP, PREALB, ANDREZ, CBCD #### [facility] [address] [place] [address] Triglyceride [Mass/Vol] 328 mg/dL High <150 [facility] Comment on above: Result Comment: TRIGLYCERIDE RISK ASSESSMENT: 150-199 mg/dl BORDERLINE HIGH >200 mg//dl HIGH . Performed By: #### V ITB1, ZINC #### [facility] [address] [place] [address] #### B12, FOL, CMP, PREALB, ANDREZ, CBCD #### [facility] [address] [place] [address] VLDL CHOLESTEROL 66 mg/dL High 6-40 [facility] Comment on above: Performed By: #### V ITB1, ZINC #### [facility] [address] [place] [address] #### B12, FOL, CMP, PREALB, ANDREZ, CBCD #### [facility] [address] [place] [address] THYROID STIM HORMONE (HS)on 07-31-2022 THYROID STIM HORMONE (HS) 2.569 uIU/ml Normal 0.550-4.780 [facility] Comment on above: Performed By: #### V ITB1, ZINC #### [facility] [address] [place] [address] #### B12, FOL, CMP, PREALB, ANDREZ, CBCD #### [facility] [address] [place] [address] NICOTINE METABOLITE, QUANTon 07-19-2022 COTININE <1.0 Normal . [facility] Comment on above: Order Comment: FAX T O [phone] Result Comment: This test was developed and its performance characteristics determined by [facility]. It has not been cleared or approved by the Food and Drug Administration. Cotinine levels greater than 20.0 are consistent with the use of tobacco or tobacco cessation products. Performed at: [facility] [address], [place], [place] [id number] Trimming Cutter: Estuardo Michelle MD, Phone: [phone] Performed By: #### N ICOTINE #### [facility] [address] [place] [address] NICOTINE <1.0 Normal . [facility] Comment on above: Order Comment: FAX T O [phone] Result Comment: This test was developed and its performance characteristics determined by [facility]. It has not been cleared or approved by the Food and Drug Administration. Nicotine levels greater than 2.0 are consistent with the use of tobacco or tobacco cessation products. Performed By: #### N ICOTINE #### [facility] [address] [place] [address] HIPS BILATERAL (2V)on 2021 [facility] Name: BATOOL KINGSLEY Phys: LASHAWN WELLS NP : 2000 Age: 22 Sex: F Acct: [id number] Loc: RAD Exam Date: 06/14/2022 Status: REG CLI Radiology No: [id number] Unit No: [id number] EXAM# TYPE/EXAM RESULT [id number] RAD/HIPS BILATERAL (2V) SEE REPORT INDICATION: Sharp [...] NP Technologist: Eugene Wagner Transcribed Date/Time: 06/14/2022 (5197) Dietary Server: [employer] Printed Date/Time: 06/14/2022 (0771) PAGE 1 Signed Report Normal [facility] Vitamin B1 (Thiamine), Whole Bloodon 05-09-2022 Vitamin B1, Whole Blood 116 nmol/L Normal 70-180 [facility] Comment on above: Result Comment: INTE RPRETIVE INFORMATION: Vitamin B1, Whole Blood This assay measures the concentration of thiamine diphosphate (TDP), the primary active form of vitamin B1. Approximately 90 percent of vitamin B1 present in whole blood is TDP. Thiamine and thiamine monophosphate, which comprise the remaining 10 percent, are not measured. This test was developed and its performance characteristics determined by [facility] [employer]. It has not been cleared or approved by the [place] Food and Drug Administration. This test was performed in a CLIA certified laboratory and is intended for clinical purposes. Performed By: [facility] [address] [place] [address] Facilities Administrator: Francisco Javier Zhang MD, PhD Performed By: #### 8 [id number] ####[facility] Reference [id number] [place] [address] Zinc, Serumon 05-07-2022 Zinc, Serum 75.6 ug/dL Normal 60.0-120.0 [facility] Comment on above: Result Comment: INTE RPRETIVE [...] developed and its performance characteristics determined by [facility] [employer]. It has not been cleared or approved by the [place] Food and Drug Administration. This test was performed in a CLIA certified laboratory and is intended for clinical purposes. Performed By: [facility] [address] [place], [place] [id number] Facilities Administrator: Francisco Javier Zhang MD, PhD Performed By: #### 2 0097 #### [facility] Reference Lab [address] [place], [place] [id number] [facility] Glucose [Mass/Vol] 96 mg/dL [facility] [employer] Work Phone: QC OK? [facility] Work Phone: CBCon 05-04-2022 Hematocrit (Bld) [Volume fraction] 40.4 % 34.0 - 48.0 % [facility] Hemoglobin (Bld) [Mass/Vol] 13.2 g/dL 11.5 - 15.5 g/dL [facility] MCH (RBC) [Entitic mass] 29.9 pg 26.0 - 35.0 pg [facility] MCHC (RBC) [Mass/Vol] 32.7 % 32.0 - 34.5 % [facility] MCV (RBC) [Entitic vol] 91.6 fL 80.0 - 99.9 fL [facility] Platelet distribution width (Bld) [Ratio] 13.0 fL 11.5 - 15.0 fL [facility] Platelet mean volume (Bld) [Entitic vol] 9.8 fL 7.0 - 12.0 fL [facility] Platelets (Bld) [#/Vol] 313 10*3/uL [facility] RBC (Bld) [#/Vol] 4.41 10*6/uL [facility] WBC (Bld) [#/Vol] 9.2 10*3/uL [facility] CBC With Platelet No Differe ntialon 05-04-2022 Hematocrit (Bld) [Volume fraction] 40.4 % Normal 34.0-48.0 [facility] Hemoglobin (Bld) [Mass/Vol] 13.2 g/dL Normal 11.5-15.5 [facility] MCH (RBC) [Entitic mass] 29.9 pg Normal 26.0-35.0 [facility] MCHC 32.7 % Normal 32.0-34.5 [facility] MCV (RBC) [Entitic vol] 91.6 fL Normal 80.0-99.9 [facility] Platelet Count 313 E9/L Normal 130-450 [facility] Platelet mean volume (Bld) [Entitic vol] 9.8 fL Normal 7.0-12.0 [facility] RBC 4.41 E12/L Normal 3.50-5.50 [facility] RDW 13.0 fL Normal 11.5-15.0 [facility] WBC 9.2 E9/L Normal 4.5-11.5 [facility] Cholesterolon 05-04-2022 Cholesterol [Mass/Vol] 162 mg/dL Normal 0-199 [facility] Cholesterol, Totalon 022 Cholesterol [Mass/Vol] 162 mg/dL 0 - 1 99 mg/dL [facility] Comprehensive Metabolic Pane evan 05-04-2022 Albumin [Mass/Vol] 4.1 g/dL Normal 3.5-5.2 [facility] ALP [Catalytic activity/Vol] 64 U/L Normal 35-104 [facility] ALT [Catalytic activity/Vol] 22 U/L Normal 0-32 [facility] Anion gap [Moles/Vol] 10 mmol/L Normal 7-16 [facility] AST [Catalytic activity/Vol] 13 U/L Normal 0-31 [facility] Bilirubin [Mass/Vol] 0.2 mg/dL Normal 0.0-1.2 [facility] Calcium [Mass/Vol] 8.9 mg/dL Normal 8.6-10.2 [facility] Chloride [Moles/Vol] 102 mmol/L Normal 98-107 [facility] CO2 [Moles/Vol] 25 mmol/L Normal 22-29 [facility] Creatinine [Mass/Vol] 0.7 mg/dL Normal 0.5-1.0 [facility] GFR Calculated >60 Normal >=60 [facility] Comment on above: Result Comment: Dion [...] secretion. Glucose [Mass/Vol] 96 mg/dL Normal 74-99 [facility] Potassium [Moles/Vol] 4.5 mmol/L Normal 3.5-5.0 [facility] Protein [Mass/Vol] 6.9 g/dL Normal 6.4-8.3 [facility] Sodium [Moles/Vol] 137 mmol/L Normal 132-146 [facility] Urea nitrogen [Mass/Vol] 17 mg/dL Normal 6-20 [facility] Albumin [Mass/Vol] 4.1 g/dL 3.5 - 5.2 g/dL [facility] ALP (Bld) [Catalytic activity/Vol] 64 U/L 35 - 104 U/L [facility] ALT [Catalytic activity/Vol] 22 U/L 0 - 32 U/L [facility] Anion gap [Moles/Vol] 10 mmol/L 7 - 16 mmol/L [facility] AST [Catalytic activity/Vol] 13 U/L 0 - 31 U/L [facility] Bilirubin [Mass/Vol] 0.2 mg/dL 0.0 - 1 .2 mg/dL [facility] Calcium [Mass/Vol] 8.9 mg/dL 8.6 - 10. 2 mg/dL [facility] Chloride [Moles/Vol] 102 mmol/L 98 - 10 7 mmol/L [facility] CO2 [Moles/Vol] 25 mmol/L 22 - 29 mmol/L [facility] Creatinine [Mass/Vol] 0.7 mg/dL 0.5 - 1.0 mg/dL [facility] GFR/1.73 sq M.predicted MDRD (S/P/Bld) [Vol rate/Area] mL/min/1.73 60 - PINF mL/min/1.73 [facility] Comment on above: Pediatric calculator link [...] [Mass/Vol] 96 mg/dL 74 - 99 mg/dL [facility]MARYIn[facility] Money Potassium [Moles/Vol] 4.5 mmol/L 3.5 - 5.0 mmol/L [facility]MARYnlyte Software [facility] Protein [Mass/Vol] 6.9 g/dL 6.4 - 8.3 g/dL [facility] Software [facility] Sodium [Moles/Vol] 137 mmol/L 132 - 146 mmol/L [facility] [employer] Urea nitrogen (BldV) [Mass/Vol] 17 mg/dL 6 - 20 mg/dL [facility] Ferritinon 05-04-2022 Ferritin [Mass/Vol] 69 ng/mL Normal [facility] Comment on above: Result Comment: FERR ITIN Reference Ranges: Adult Males 20 - 60 years: 30 - 400 ng/mL Adult females 17 - 60 years: 13 - 150 ng/mL Adults greater than 60 years: no established reference range Pediatrics: no established reference range Folateon 05-04-2022 Folate 8.5 ng/mL Normal 4.8-24.2 [facility] Hgb A1Con 05-04-2022 HbA1c (Bld) [Mass fraction] 5.7 % High 4.0-5.6 [facility] METER GLUCOSEon 05-04-2022 Glucose [Mass/Vol] 93 mg/dL Normal 74-99 [facility] Glucose [Mass/Vol] 96 mg/dL Normal 74-99 [facility] No Panel Informationon 05-04 [facility]MARYIn[facility] Money [facility] Work Phone: POC Urine Qualon 1 07-04-2021 Beta HCG ( test) Ql (U) Negative Negative [employer] Work Phone: Lot Number [id number] [employer] Phone: Negative QC Pass/Fail Pass [employer] Phone: Positive QC Pass/Fail Pass [employer] Phone: [employer] Phone: POCT Glucoseon 05-04-2022 Glucose [Mass/Vol] 93 mg/dL 74 - 99 mg/dL [facility] Glucose [Mass/Vol] 96 mg/dL 74 - 99 mg/dL [facility] Prealbuminon 05-04-2022 Prealbumin [Mass/Vol] 24 mg/dL Normal 20-40 [place] Surgical Specimenon 05-04-20 Surgical Specimen [facility] [address] [facility] [address] [address] FINAL SURGICAL PATHOLOGY REPORT NAME: BATOOL KINGSLEY Date of 05/04/2022 Collection: Medical Record [id number] Date of 05/04/2022 Number: Receipt: Age: 22 Y Sex: F Date 05/11/2022 08:29 Reported: Date Of : 2000 Financial [id number] Admitting DERIC FLORENCE Number: Physician: Patient DIS [...] submitted. Block label: A1. (JORGE L:YAYA) CODES: [id number]; Department of Pathology Page 1 of 1 Normal [facility] Triglycerideon 05-04-2022 Interpretation and review of laboratory results Abnormal [facility] Triglyceride [Mass/Vol] 274 mg/dL High 0 - 149 mg/dL [facility] Triglycerideson 05-04-2022 Triglyceride [Mass/Vol] 274 mg/dL High 0-149 [facility] Vitamin B12on 05-04-2022 Cobalamin (Vitamin B12) [Mass/Vol] 226 pg/mL Normal 211-946 [facility] US GALLBLADDER RUQon 022 US GALLBLADDER RUQ [...] Dowling MD 05/02/22 Final result Normal [facility] Comment on above: Order Comment: Reaso n for exam:->Indigestion What reading provider will be dictating this exam?->CRC CBC Auto DifferentialOrdered By: Win Narvaez on 03-27-2021 Basophils (Bld) [#/Vol] 0.05 10*3/uL [employer] Phone: Basophils/100 WBC (Bld) 0.5 % 0.0 - 2.0 % [employer] Phone: Eosinophils Absolute 0.37 [email or web address] Phone: Eosinophils/100 WBC (Bld) 3.8 % 0.0 - 6.0 % [employer] Phone: Hematocrit (Bld) [Volume fraction] 39.5 % 34.0 - 48.0 % [employer] Phone: Hemoglobin.gastrointes tinal spec 1 Ql (Stl) 12.6 g/dL 11.5 - 15.5 g/dL [employer] Phone: Immature Granulocytes # 0.18 E9/L [employer] Phone: Immature granulocytes/100 WBC (Bld) 1.8 % 0.0 - 5.0 % [employer] Phone: Interpretation and review of laboratory results Abnormal [employer] Phone: Lymphocytes Absolute 3.73 [email or web address] Phone: Lymphocytes/100 WBC (Bld) 38.2 % 20.0 - 42.0 % [employer] Phone: MCH (RBC) [Entitic mass] 28.9 pg 26.0 - 35.0 pg [employer] Phone: MCHC (RBC) [Mass/Vol] 31.9 % Low 32.0 - 34.5 % [employer] Phone: MCV (RBC) [Entitic vol] 90.6 fL 80.0 - 99.9 fL [employer] Phone: Monocytes Absolute 0.46 [employer] Phone: Monocytes/100 WBC (Bld) 4.7 % 2.0 - 12.0 % [employer] Phone: Neutrophils Absolute 4.97 [email or web address] Phone: Neutrophils/100 WBC (Bld) 51.0 % 43.0 - 80.0 % [employer] Phone: Platelet distribution width (Bld) [Ratio] 13.3 fL 11.5 - 15.0 fL [employer] Phone: Platelet mean volume (Bld) [Entitic vol] 9.7 fL 7.0 - 12.0 fL [employer] Phone: Platelets (Bld) [#/Vol] 281 10*3/uL [employer] Phone: RBC (Bld) [#/Vol] 4.36 10*6/uL [employer] Phone: WBC (Bld) [#/Vol] 9.8 10*3/uL [employer] Phone: Comprehensive Metabolic Pane l w/ Reflex to MGOrdered By: Win Narvaez on 03-27-2021 Albumin [Mass/Vol] 4.2 g/dL 3.5 - 5.2 g/dL [employer] Phone: ALP (Bld) [Catalytic activity/Vol] 64 U/L 35 - 104 U/L [employer] Phone: ALT [Catalytic activity/Vol] 19 U/L 0 - 32 U/L [employer] Phone: Anion gap [Moles/Vol] 12 mmol/L 7 - 16 mmol/L [employer] Phone: AST [Catalytic activity/Vol] 14 U/L 0 - 31 U/L [employer] Phone: Bilirubin [Mass/Vol] mg/dL 0.0 - 1 .2 mg/dL [employer] Phone: Calcium [Mass/Vol] 9.1 mg/dL 8.6 - 10. 2 mg/dL [employer] Phone: Chloride [Moles/Vol] 103 mmol/L 98 - 10 7 mmol/L [employer] Phone: CO2 [Moles/Vol] 22 mmol/L 22 - 29 mmol/L [employer] Phone: Creatinine [Mass/Vol] 0.5 mg/dL 0.5 - 1.0 mg/dL [employer] Phone: Free PSA/Total PSA [Mass fraction] 7.1 g/dL 6.4 - 8.3 g/dL [employer] Phone: GFR >60 [email or web address] Phone: GFR Non- >60 >=60 mL/min/1.73 [employer] Phone: Comment on above: Chronic Kidney Disea se: less than 60 ml/min/1.73 sq.m. Kidney Failure: less than 15 ml/min/1.73 sq.m. Results valid for patients 18 years and older. Glucose [Mass/Vol] 107 mg/dL High 74 - 99 mg/dL [employer] Phone: Interpretation and review of laboratory results Abnormal [employer] Phone: Potassium [Moles/Vol] 4.2 mmol/L 3.5 - 5.0 mmol/L [employer] Phone: Sodium [Moles/Vol] 137 mmol/L 132 - 146 mmol/L [employer] Phone: Urea nitrogen (BldV) [Mass/Vol] 9 mg/dL 6 - 20 mg/dL [employer] Phone: [employer] Phone: Microscopic UrinalysisOrdere d By: Win Narvaez on 03-27-2021 Bacteria, UA FEW Abnormal None Seen /HPF [employer] Phone: Epithelial Cells, UA FEW /HPF [email or web address] Phone: Interpretation and review of laboratory results Abnormal [employer] Phone: RBC, UA 2-5 [employer] Phone: WBC, UA 0-1 [employer] Phone: [employer] Phone: No Panel InformationOrdered By: Win Narvaez on 03-27-2021 [employer] Phone: POC Urine QualOrde red By: Win Narvaez on 03-27-2021 Beta HCG ( test) Ql (U) Negative Negative [employer] Phone: Beta HCG ( test) Ql (U) [id number] [employer] Phone: Negative QC Pass/Fail Pass [employer] Phone: Positive QC Pass/Fail Pass [employer] Phone: US PELVIS COMPLETEOrdered By : Tien Oneal on 03-27-2021 The bilateral ovaries are mildly enlarged, right greater than left. Otherwise, unremarkable pelvic ultrasound. [employer] Phone: EXAMINATION: PELVIC ULTRASOUND 03/27/2021 TECHNIQUE: Multiple [...] Free Fluid: No evidence of free fluid. [employer] Phone: Antonio, Mhy Incoming Radiant Results From [email or web address] - 03/27/2021 3:01 PM EDT EXAMINATION: PELVIC [...] greater than left. Otherwise, unremarkable pelvic ultrasound. [facility] [employer] Work Phone: [facility] Work Phone: UrinalysisOrdered By: Win Narvaez on 03-27-2021 Bilirubin Urine Negative Negative [facility] Work Phone: Blood, Urine LARGE Abnormal Negative [facility] Work Phone: Clarity, UA Clear Clear [facility] Work Phone: Color, UA Yellow Straw/Yellow [facility] [employer] Work Phone: Glucose, Ur Negative Negative mg/dL [facility] Work Phone: Interpretation and review of laboratory results Abnormal [facility] [employer] Work Phone: Ketones Ql (U) Negative Negative mg/dL [facility] Work Phone: Leukocyte esterase Test strip Ql (U) Negative Negative [facility] Work Phone: Nitrite, Urine Negative Negative [facility] Work Phone: pH, UA 5.0 [facility] [employer] Work Phone: Protein, UA TRACE Negative mg/dL [facility] Work Phone: Specific [place], UA >=1.030 [facility] [employer] Work Phone: Urobilinogen, Urine 0.2 <2.0 E.U./dL [facility] Work Phone: [facility] Work Phone: NOSE/THROAT CULTUREon 2020 NOSE/THROAT CULTURE RUN DATE: 07/10/20 Laboratory LIVE PAGE 1 RUN TIME: 951 Specimen Inquiry RUN USER: INTERFACE [facility] Department of Laboratories [address] [place], [place] [id number] PATIENT: BATOOL KINGSLEY LOC: BHARGAVIEUGENIEGILMER U #: [id number] HOME PHONE: DAVID/SX: ROOM: RE07/08/[address]: Ameena Corcoran APRN.LENS GAUGER : 99 BED: DIS: STATUS: REG REF LAB O/S: Specimen: [id number] Collected: 07/08/20 Status: COMP Req#: [id number] Received: 07/08/20 Source: THROAT Sp Desc: Subm Dr: Ameena Corcoran APRN.CNP Ordered: NOSE/THRT CULT Procedure Result Verified > NOSE/THROAT CULTURE Final 07/10/20 HEAVY GROWTH OF NORMAL ARIN END OF REPORT Normal [facility] Comment on above: Performed By: #### [address] #### [facility] [place] [id number] Vital Signs Date Time Vital Sign Value Performing Clinician Facility 05-25-2024 14:30-0500 Body weight 123.74 kg [employer] Work Phone: [facility] 05-25-2024 14:30-0500 Diastolic blood pressure 70 mm[Hg] [employer] Work Phone: [facility] 05-25-2024 14:30-0500 Systolic blood pressure 120 mm[Hg] [employer] Work Phone: [facility] 04-21-2024 15:02-0400 Body weight 118.84 kg [employer] Work Phone: [facility] 04-21-2024 15:02-0400 Diastolic blood pressure 74 mm[Hg] [employer] Work Phone: [facility] 04-21-2024 15:02-0400 Systolic blood pressure 116 mm[Hg] [employer] Work Phone: [facility] 04-07-2024 14:38-0400 Body weight 118.3 kg Kierra HUNT Work Phone: [facility] 04-07-2024 14:38-0400 Diastolic blood pressure 70 mm[Hg] Kierra HUNT Work Phone: [facility] 04-07-2024 14:38-0400 Systolic blood pressure 120 mm[Hg] Kierra HUNT Work Phone: [facility] 10-30-2022 08:56-0400 SaO2% (BldA) [Mass fraction] 97 % Deric Florence MD Work Phone: [facility] 10-30-2022 05:00-0400 Body temperature 97.9 [degF] Deric Florence MD Work Phone: [facility] 10-30-2022 05:00-0400 Diastolic blood pressure 74 mm[Hg] Deric Florence MD Work Phone: [facility] 10-30-2022 05:00-0400 Heart rate 74 /min Deric Florence MD Work Phone: [employer] 10-30-2022 05:00-0400 Respiratory rate 18 /min Deric Florence MD Work Phone: [employer] [facility] 10-30-2022 05:00-0400 Systolic blood pressure 126 mm[Hg] Deric Florence MD Work Phone: [employer] [facility] 10-29-2022 06:50-0400 Body height 170.2 cm Deric Florence MD Work Phone: [facility] [email or web address] 10-29-2022 06:50-0400 Body mass index (BMI) [Ratio] 55.6 kg/m2 Deric Florence MD Work Phone: [facility] [email or web address] 10-29-2022 06:50-0400 Body weight 161.03 kg Deric Florence MD Work Phone: [employer] 10-24-2022 12:17-0400 Body height 170.2 cm Sjwz 2 [employer] 10-24-2022 12:17-0400 Body mass index (BMI) [Ratio] 55.44 kg/m2 Sjwz 2 [facility] [email or web address] 10-24-2022 12:17-0400 Body temperature 98.01 [degF] Sjwz 2 [employer] 10-24-2022 12:17-0400 Body weight 160.57 kg Sjwz 2 [facility] [employer] 10-24-2022 12:17-0400 Diastolic blood pressure 62 mm[Hg] Sjwz 2 [facility] [email or web address] 10-24-2022 12:17-0400 Heart rate 77 /min Sjwz 2 [facility] [employer] 10-24-2022 12:17-0400 Respiratory rate 16 /min Sjwz 2 [facility] [employer] [address] [employer] 10-24-2022 12:17-0400 SaO2% (BldA) [Mass fraction] 95 % Sjwz 2 [facility] [email or web address] 10-24-2022 12:17-0400 Systolic blood pressure 117 mm[Hg] Sjwz 2 [facility] [email or web address] 05-04-2022 08:55-0400 Body temperature 98.29 [degF] Deric Florence MD Work Phone: [employer] 05-04-2022 08:55-0400 Diastolic blood pressure 68 mm[Hg] Deric Florence MD Work Phone: [employer] 05-04-2022 08:55-0400 Heart rate 83 /min Deric Florence MD Work Phone: [employer] 05-04-2022 08:55-0400 Respiratory rate 16 /min Deric Florence MD Work Phone: [employer] 05-04-2022 08:55-0400 SaO2% (BldA) [Mass fraction] 92 % Deric Florence MD Work Phone: [employer] 05-04-2022 08:55-0400 Systolic blood pressure 128 mm[Hg] Deric Florence MD Work Phone: [employer] 05-04-2022 07:06-0400 Body height 170.2 cm Deric Florence MD Work Phone: [employer] 05-04-2022 07:06-0400 Body mass index (BMI) [Ratio] 61.21 kg/m2 Deric Florence MD Work Phone: [employer] 05-04-2022 07:06-0400 Body weight 177.27 kg Deric Florence MD Work Phone: [employer] 03-27-2021 20:08-0400 Heart rate 95 /min Tien Oneal DO Work Phone: [employer] Work Phone: 03-27-2021 13:47-0400 Body height 170.2 cm Tien [employer] Work Phone: [employer] Work Phone: 03-27-2021 13:47-0400 Body mass index (BMI) [Ratio] 54.82 kg/m2 Tien Oneal [employer] Work Phone: [employer] Work Phone: 03-27-2021 13:47-0400 Body temperature 97.11 [degF] Tien Oneal DO Work Phone: [employer] Work Phone: 03-27-2021 13:47-0400 Body weight 158.76 kg Tien Oneal DO Work Phone: [employer] Work Phone: 03-27-2021 13:47-0400 Diastolic blood pressure 80 mm[Hg] Tien Oneal DO Work Phone: [employer] Work Phone: 03-27-2021 13:47-0400 Respiratory rate 16 /min Tien Oneal [employer] Work Phone: [employer] Work Phone: 03-27-2021 13:47-0400 SaO2% (BldA) [Mass fraction] 98 % Tien Oneal DO Work Phone: [employer] Phone: 03-27-2021 13:47-0400 Systolic blood pressure 173 mm[Hg] Tien Oneal DO Work Phone: [employer] Phone: Encounters Encounter Date Encounter Type Care Provider Facility Start: 05-25-2024 End: 05-25-2024 Bamboo flowsheet Bryan Manisha DO Work Phone: [facility] Start: 05-25-2024 End: 05-25-2024 Bamboo flowsheet Bryan Manisha DO Work Phone: [facility] Start: 05-25-2024 End: 05-25-2024 Office outpatient visit 15 minutes Bryan Manisha DO Work Phone: [facility] Comment on above: 34 weeks gestation o f ; Third trimester ; Insomnia, unspecified type; History of gastric bypass; Gestational diabetes mellitus (GDM), antepartum, gestational diabetes method of control unspecified Start: 05-25-2024 End: 05-25-2024 ambulatory BRYAN MANISHA Not Available Start: 05-06-2024 End: 05-06-2024 Office outpatient visit 15 minutes Kierra HUNT Work Phone: [facility] Comment on above: Third trimester preg agatha; 31 weeks gestation of ; Anxiety, generalized (CMS/HCC); Sinusitis, unspecified chronicity, unspecified location Start: 05-06-2024 End: 05-06-2024 ambulatory KIERRA RIVAS Not Available Start: 05-06-2024 End: 05-06-2024 Bamboo flowsheet Kierra HUNT Work Phone: [facility] Start: 05-06-2024 End: 05-06-2024 Bamboo flowsheet Kierra HUNT Work Phone: [facility] Start: 04-21-2024 End: 04-21-2024 Office outpatient visit 15 minutes Bryan Manisha DO Work Phone: [facility] Comment on above: Third trimester preg agatha; 29 weeks gestation of ; Anemia during in third trimester; Elevated glucose tolerance test; Abnormal thyroid stimulating hormone (TSH) level Start: 04-21-2024 End: 04-21-2024 ambulatory BRYAN MANISHA Not Available Start: 04-21-2024 End: 04-21-2024 Bamboo flowsheet Bryan Manisha DO Work Phone: [facility] Start: 04-21-2024 End: 04-21-2024 Bamboo flowsheet Bryan Manisha DO Work Phone: [facility] Start: 04-21-2024 End: 04-21-2024 Clinisync Result Encounter Bryan Manisha DO Work Phone: [facility] External Department Unsolicited Start: 04-07-2024 End: 04-07-2024 Office outpatient visit 15 minutes Kierra HUNT Work Phone: [facility] Comment on above: 27 weeks gestation o f ; Second trimester ; Gestational diabetes mellitus (GDM), antepartum, gestational diabetes method of control unspecified; Anemia affecting in second trimester Start: 04-07-2024 End: 04-07-2024 ambulatory KIERRA RIVAS Not Available Start: 04-07-2024 End: 04-07-2024 Bamboo flowsheet Kierra HUNT Work Phone: [facility] Start: 04-07-2024 End: 04-07-2024 Bamboo flowsheet Kierra HUNT Work Phone: [facility] Start: 03-17-2024 End: 03-17-2024 [facility] Start: 03-09-2024 End: 03-09-2024 ambulatory BRYAN MANISHA Not Available Start: 02-17-2024 End: 02-17-2024 ambulatory BRYAN R MANISHA [facility] Start: 02-10-2024 End: 02-10-2024 ambulatory BRYAN MANISHA Not Available Start: 01-07-2024 End: 01-07-2024 ambulatory BRYAN MANISHA Not Available Start: 12-12-2023 End: 12-12-2023 ambulatory BRYAN MANISHA Not Available Start: 11-10-2023 End: 11-10-2023 Emergency department patient visit NO PCP NO PCP [facility] Start: 08-14-2023 End: 08-14-2023 Emergency department patient visit TRAVIS VALLEJO [facility] Start: 12-14-2022 ambulatory [facility] Facility:[facility] Start: 12-03-2022 ambulatory [facility] Facility:[facility] Start: 11-06-2022 ambulatory [facility] Facility:[facility] Start: 10-29-2022 End: 10-30-2022 Evaluation and management of inpatient [facility] Start: 10-29-2022 End: 10-30-2022 Evaluation and management of inpatient Deric Florence MD Work Phone: [facility] SURG Comment on above: Post-operative state (Primary Dx); Morbid obesity (HCC) Start: 10-24-2022 End: 10-25-2022 ambulatory [facility] Start: 10-24-2022 Encounter for other preprocedural examination [facility] Start: 10-24-2022 End: 10-24-2022 [facility] Start: 10-24-2022 End: 10-24-2022 Subsequent hospital visit by physician Hans Pat Room 2 [facility] PRE ADMIT TESTING Comment on above: Preop testing (Prima ry Dx); Malnutrition following gastrointestinal surgery Start: 10-04-2022 ambulatory [facility] Facility:[facility] Start: 08-13-2022 ambulatory [facility] Facility:[facility] Start: 07-31-2022 ambulatory [facility] Facility:[facility] Start: 07-13-2022 ambulatory [facility] Facility:[facility] Start: 06-14-2022 ambulatory KAELA GILLIAN Facility:[facility] Start: 05-04-2022 End: 05-04-2022 ambulatory KAELA ARELLANO [facility] Start: 05-04-2022 End: 05-04-2022 Subsequent hospital visit by physician Deric Florence MD Work Phone: [facility] ENDOS[facility] Comment on above: Morbid obesity due t o excess calories (HCC); Gastroesophageal reflux disease Start: 05-02-2022 End: 05-05-2022 ambulatory DERIC FLORENCE [facility] Start: 03-27-2021 End: 03-27-2021 Emergency department patient visit Tien Judd Patriciarhonda DO Work Phone: [facility] Emergency Department Comment on above: DUB [...] Basic metabolic panel calcium total Yang Hsu [employer] Work Phone: Start: 10-30-2022 Lipid panel Yang Girish barlow [employer] Work Phone: Start: 10-30-2022 Gluc bld gluc [...] Start: 10-29-2022 Hemoglobin glycosylated a1c Yang Hsu [employer] - LENS GAUGER Work Phone: Start: 10-29-2022 Gluc bld gluc [...] PM EST Routine [facility] [address] [place] [id number] Bryan Dyer, DO [address] [place] [address] [facility] Start: 05-25-2024 End: 05-25-2024 [...] EST Ancillary Procedure [facility] [address] [facility] [phone] [facility] Start: 04-21-2024 End: 04-21-2024 Patient encounter procedure 04/21/2024 2:30 PM EDT Routine [facility] [address] [facility] [phone] Bryan Dyer DO [address] [place] [address] Arrived [facility] Comment on above: Arrived Start: 04-21-2024 End: 04-21-2025 US for US OB SCAN FOR GROWTH Imaging Routine Elevated glucose tolerance test Abnormal thyroid stimulating hormone (TSH) level Expected: 04/21/2024 (Approximate), Expires: 04/21/2025 [facility] Comment on above: Expected: 04/21/2024 (Approximate), Expi res: 04/21/2025 Start: 04-07-2024 End: 04-07-2024 Patient encounter procedure 04/07/2024 2:40 PM EDT Routine [facility] [address] [place] [phone] Kierra Rivas PA [address] [place] [address] Arrived [facility] Comment on above: Arrived Start: 04-07-2024 End: 04-07-2025 US for US OB SCAN FOR GROWTH Imaging Routine Gestational diabetes mellitus (GDM), antepartum, gestational diabetes method of control unspecified Anemia affecting in second trimester Expected: 04/07/2024 (Approximate), Expires: 04/07/2025 [facility] Work Phone: Comment on above: Expected: 04/07/2024 (Approximate), Expi res: 04/07/2025 Start: 10-31-2023 GFR test (Diabetes, CKD 3-4, OR last GFR 15-59) GFR test (Diabetes, CKD 3-4, OR last GFR 15-59) [facility] Start: 10-31-2023 Lipid panel Lipids [facility] Start: 10-30-2023 Hemoglobin A1c measurement A1C test (Diabetic or Prediabetic) [facility] Start: 10-25-2023 GFR test (Diabetes, CKD 3-4, OR last GFR 15-59) GFR test (Diabetes, CKD 3-4, OR last GFR 15-59) [facility] Start: 05-04-2023 Hemoglobin A1c measurement A1C test (Diabetic or Prediabetic) [facility] Start: 05-04-2023 Lipid panel Lipids [facility] Start: 01-29-2023 Influenza vaccination Flu vaccine (Season Ended) [facility] Start: 11-14-2022 End: 11-14-2022 Patient encounter procedure 11/14/2022 Office Visit Bariatrics Deric Florence MD [address] [place] [address] [facility] Surg Weight Start: 10-29-2022 End: 10-29-2022 Admission to same day surgery center 10/29/2022 Surgery IP Unit Deric Florence MD [address] [place] [address] GASTRIC BYPASS NUNO-EN-Y LAPAROSCOPICNEEDS IV TEAM [facility] Comment on above: GASTRIC BYPASS NUNO-EN-Y LAPAROSCOPICN EEDS IV TEAM Start: 10-29-2022 End: 10-29-2022 Laps gstr rstcv px w/byp nuno-en-y limb <150 cm GASTRIC BYPASS NUNO-EN-Y LAPAROSCOPIC Morbid obesity (HCC) 10/29/2022 9:00 AM EDT [facility] Start: 10-29-2022 Subsequent hospital visit by physician 10/29/2022 Hospital Encounter IP Unit Deric Florence MD [address] [place] [address] [facility] Start: 05-11-2022 End: 05-11-2022 Patient encounter procedure [facility] [place] [facility] Start: 05-04-2022 End: 05-04-2022 Egd transoral biopsy single/multiple EGD ESOPHAGOGASTRODUODENOSCOPY Gastroesophageal reflux disease 05/04/2022 8:18 AM EDT [facility] Start: 01-29-2022 Influenza vaccination Flu vaccine (#1) [facility] [employer] Start: 03-01-2021 Influenza vaccination Flu vaccine (#1) [facility] [employer] Work Phone: Start: 01-22-2020 Screening for malignant neoplasm of cervix Pap smear [facility] [employer] Start: 09-23-2019 Hepatitis B vaccine (3 of 3 - Risk 3-dose series) Hepatitis B vaccine (3 of 3 - Risk 3-dose series) [facility] [employer] Start: 2018 DTaP/Tdap/Td vaccine (1 - Tdap) DTaP/Tdap/Td vaccine (1 - Tdap) [facility] [employer] Start: 2017 Glaucoma screening Diabetic retinal exam [facility] Start: 2017 Hepatitis C screening Hepatitis C screen [facility] Start: 2017 Urine screening for protein Diabetic Alb to Cr ratio (uACR) test [facility] Start: 2015 Screening for Chlamydia trachomatis [facility] [employer] Start: 2014 HIV screening HIV screen [facility] Start: 2011 COVID-19 Vaccine (1) COVID-19 Vaccine (1) [facility] [employer] Work Phone: Start: 2011 Depression Monitoring Depression Monitoring [facility] [employer] Start: 2011 Depression Screen Depression Screen [facility] Start: 2010 HPV vaccine (1 - 2-dose series) HPV vaccine (1 - 2-dose series) [facility] Start: 2009 Diabetic foot examination Diabetic foot exam [facility] Start: 2005 Pneumococcal 0-64 years Vaccine (1 - PCV) Pneumococcal 0-64 years Vaccine (1 - PCV) [facility] Start: 01-22-2000 Varicella vaccine (1 of 2 - 2-dose childhood series) Varicella vaccine (1 of 2 - 2-dose childhood series) [employer] Start: 1999 COVID-19 Vaccine (#1) COVID-19 Vaccine (#1) [employer] Start: 1999 Hepatitis C screening Hepatitis C screen [employer] Phone: End: 10-29-2023 Basic metabolic 2000 panel - Serum or Plasma Basic Metabolic Panel Lab Routine Daily for 365 Days starting 10/30/2022 until 10/29/2023, 1 completed [employer] Phone: Comment on above: Daily for 365 Days starting 10/30/2022 u ntil 10/29/2023, 1 completed End: 10-29-2023 CBC W Auto Differential panel - Blood CBC with Auto Differential Lab Routine Daily for 365 Days starting 10/30/2022 until 10/29/2023, 1 completed [employer] Phone: Comment on above: Daily for 365 Days starting 10/30/2022 u ntil 10/29/2023, 1 completed CBC W Auto Differential panel - Blood CBC and differential Lab Routine Anemia during in third trimester Ordered: 04/21/2024 [facility] [employer] Work Phone: Comment on above: Ordered: 04/21/2024 End: 03-27-2021 Culture, Urine Culture, Urine Microbiology Routine One Time for 1 Occurrences starting 03/27/2021 until 03/27/2021 [employer] Phone: Comment on above: One Time for 1 Occurrences starting 03/02 until 03/27/2021 End: 05-04-2022 Cyanocobalamin vitamin b-12 [employer] Phone: Comment on above: 1 Occurrences starting 05/04/2022 until 05/04/2022 End: 05-04-2022 Ferritin [Mass/volume] in Serum or Plasma [employer] Phone: Comment on above: 1 Occurrences starting 05/04/2022 until 05/04/2022 End: 05-04-2022 Folate [employer] Phone: Comment on above: 1 Occurrences starting 05/04/2022 until 05/04/2022 Glucose [Mass/volume ] in Serum or Plasma [employer] Phone: Comment on above: 4X Daily (AC & HS) until discontinued st arting 10/29/2022 As Needed until disc ontinued starting 10/29/2022 End: 05-04-2022 Hemoglobin A1c/Hemoglobin.total in Blood [employer] Phone: Comment on above: 1 Occurrences starting 05/04/2022 until 05/04/2022 End: 10-30-2022 Hemoglobin A1c/Hemoglobin.total in Blood Hemoglobin A1C Lab Routine Tomorrow AM for 1 Occurrences starting 10/30/2022 until 10/30/2022 [employer] Phone: Comment on above: Tomorrow AM for 1 Occurrences starting 0 10/30/2022 until 10/30/2022 Hemoglobin A1c/Hemoglobin.total in Blood Hemoglobin A1C Lab Routine 10/30/2022 4:51 AM EDT [employer] Phone: End: 10-29-2023 Hepatic function 2000 panel - Serum or Plasma Hepatic Function Panel Lab Routine Daily for 365 Days starting 10/30/2022 until 10/29/2023, 1 completed [employer] Phone: Comment on above: Daily for 365 Days starting 10/30/2022 u ntil 10/29/2023, 1 completed End: 10-29-2023 Magnesium [Mass/volume] in Serum or Plasma Magnesium Lab Routine Daily for 365 Days starting 10/30/2022 until 10/29/2023, 1 completed [employer] Phone: Comment on above: Daily for 365 Days starting 10/30/2022 u ntil 10/29/2023, 1 completed Nasal Cannula Oxygen Nasal Cannu la Oxygen Respiratory Care Routine Daily until discontinued starting 10/30/2022 [employer] Phone: Comment on above: Daily until discontinued starting 2022 Oxygen therapy [Minimum Data Set] Initiate Oxygen Therapy Protocol Respiratory Care Routine As Needed until discontinued starting 10/29/2022 [employer] Phone: Comment on above: As Needed until discontinued starting End: 10-29-2023 Phosphate [Mass/volume] in Serum or Plasma Phosphorus Lab Routine Daily for 365 Days starting 10/30/2022 until 10/29/2023, 1 completed [employer] Phone: Comment on above: Daily for 365 Days starting 10/30/2022 u ntil 10/29/2023, 1 completed End: 05-04-2022 Prealbumin [Mass/volume] in Serum or Plasma [employer] Phone: Comment on above: 1 Occurrences starting 05/04/2022 until 05/04/2022 End: 10-29-2022 Spirometry panel [employer] Phone: Comment on above: Continuous until discontinued starting 0 10/29/2022 Every 2hr while awak e until discontinued starting 10/29/2022 Surgical Pathology Surgical Path ology Lab Routine Gastroesophageal reflux disease Release Upon Ordering for 1 Occurrences starting 05/04/2022 [employer] Phone: Comment on above: Release Upon Ordering for 1 Occurrences starting 05/04/2022 Surgical Pathology Surgical Path ology Lab Routine Morbid obesity (HCC) Release Upon Ordering for 1 Occurrences starting 10/29/2022 [employer] Phone: Comment on above: Release Upon Ordering for 1 Occurrences starting 10/29/2022 End: 05-04-2022 Vitamin B1 Vitamin B1 Lab Routine Morbi d obesity due to excess calories (HCC) 1 Occurrences starting 05/04/2022 until 05/04/2022 [employer] Phone: Comment on above: 1 Occurrences starting 05/04/2022 until 05/04/2022 End: 05-04-2022 Zinc Zinc Lab Routine Morbid obes ity due to excess calories (HCC) 1 Occurrences starting 05/04/2022 until 05/04/2022 [employer] Phone: Comment on above: 1 Occurrences starting 05/04/2022 until 05/04/2022 Immunizations Immunization Date Immunization Notes Care Provider Lito enriquez 10-24-2020 tuberculin skin test ; purified protein derivative solution, intradermal Sjwz 2 [employer] Phone: 05-25-2019 hepatitis B vaccine, adult dosage Sjwz 2 [employer] Phone: 04-01-2019 hepatitis B vaccine, adult dosage Sjwz 2 [employer] Phone: 04-01-2019 meningococcal B vacc ine, recombinant, OMV, adjuvanted Sjwz 2 [employer] Phone: 04-01-2019 tuberculin skin test ; purified protein derivative solution, intradermal Sjwz 2 [employer] Phone: Payers Date Payer Category Payer Medicaid [employer]ICA[employer] [place] [id number] 2023-Present [address] [place] [address] [id number] 2023 Private Health Insurance [facility] MEDICAID [id number] 2020 Private Health Insurance [id number] [id number]. 7.3.826040.315 2020 Private Health Insurance [id number] 1.2.840.680948.1.13.239.2. 7.3.859777.315 1999 Unknown [id number] 2.16.840.1.974750.3.579.2. 204 1999 Unknown [id number] 2.16.840.1.624402.3.579.2. 204 1999 Unknown [id number] 2.16.840.1.281459.3.579.2. 204 1999 Unknown [id number] 2.16.840.1.505644.3.579.2. 204 1999 Unknown [id number] 2.16840.1.152229.3.579.2. 128 1999 Unknown [id number] 2.16.840.1.425632.3.579.2. 128 1999 Unknown [id number] 2.16.840.1.799096.3.579.2. 1285 1999 Unknown [id number] 2.16.840.1.723565.3.579.2. 128 1999 Unknown [id number] 2.16.840.1.879646.3.579.2. 128 1999 Unknown [id number] 2.16.840.1.993342.3.579.2. 1259 1999 Unknown [id number] 2.16.840.1.531567.3.579.2. 1258 1999 Unknown [id number] 2.16.840.1.371912.3.579.2. 9 1999 Unknown [id number] 2.16.840.1.459028.3.579.2. 1258 1999 Unknown [id number] 2.16.840.1.687049.3.579.2. 1259 1999 Unknown [id number] 2.16.840.1.198536.3.579.2. 1259 1999 Unknown [id number] 2.16.840.1.811513.3.579.2. 1259 1999 Unknown [id number] 2.16.840.1.967038.3.579.2. 1259 Unknown [id number] 2.16.840.1.678067.3.579.2. 212 Unknown [id number] 2.16.840.1.431540.3.579.2. 212 Unknown [id number] 2.16.840.1.581946.3.579.2. 212 Unknown [id number] 2.16.840.1.868144.3.579.2. 212 Unknown [id number] 2.16.840.1.764861.3.579.2. 212 Unknown [id number] 2.16.840.1.574580.3.579.2. 212 Unknown [id number] 2.16.840.1.459092.3.579.2. 212 Unknown [id number] 2.16.840.1.223188.3.579.2. 212 Unknown [id number] 2.16.840.1.120274.3.579.2. 212 Social History Date Type Detail Facility Tobacco smoking stat [facility] Unknown if ever smoked [employer] Phone: Start: 2000 Sex Assigned At Not on file [employer] Phone: Start: 04-23-2022 End: 05-03-2022 Exposure to SARS-CoV-2 (event) Not sure [employer] Start: 05-03-2022 End: 10-24-2022 Tobacco smoking status [facility] Ex-smoker [employer] Phone: End: 12-29-2021 History of tobacco use Current smoker [employer] Phone: End: 12-29-2021 History of tobacco use Cigarette Smoker [employer] Phone: Start: 05-03-2022 End: 12-12-2023 Tobacco use and exposure Smokeless tobacco non-user [employer] Phone: Start: 05-04-2022 End: 10-30-2022 Alcohol intake Current drinker of alcohol (finding) [employer] Phone: Start: 05-03-2022 Tobacco Comment Quit 12/2021 [employer] Phone: Start: 05-03-2022 Alcohol Comment occ [employer] Phone: Start: 10-29-2022 History SDOH Alcohol Frequency 1 [employer] Phone: Start: 12-12-2023 Tobacco smoking stat [facility] Never smoked tobacco [facility] Start: 03-09-2024 End: 05-25-2024 Alcoholic beverage intake Ex-drinker (finding) [facility] Start: 12-12-2023 End: 03-09-[address] [facility] Start: 12-12-[address] [facility] Start: 10-13-2023 [facility] 05-04-2022 to 05-25-2024 Mary [...] nursing note reviewed. Exam conducted with a change management manager present. Vitals: There is no height [...] scheduled starting this week. Order faxed to [facility] Scheduling and [facility] FBC. Gave patient handouts for [employer]. Patient to return to clinic in 2 weeks for routine OB appointment. Patient will have GBS done at that time. Documented by Mary Zhao LPN on behalf of: Bryan Dyer DO documented in this encounter [facility] 05-06-2024 History of Present illness [...] of: MARILEE Espinosa documented in this encounter [facility] 04-21-2024 History of Present illness [...] nursing note reviewed. Exam conducted with a change management manager present. Vitals: There is no height [...] Bryan Dyer DO documented in this encounter [facility] 04-07-2024 History of Present illness [...] nursing note reviewed. Exam conducted with a change management manager present. Vitals: There is no height [...] of: MARILEE Espinosa documented in this encounter [place] [id number] Hospital Discharge instructions Lashawn Ordoñez RN - 10/30/2022 6:49 AM EDT Your information: Name: Batool Kingsley : 2000 Dr. Florence's Discharge Instructions for Bariatric Surgery [facility] Discharge Instructions [...] blood sugars as ordered by PCP or Overhead Crane Truck Loader. Follow up with PCP or Overhead Crane Truck Loader regarding diabetic medications. Make sure you take any medicines you were on for depression or anxiety. FOLLOW-UP Follow-up appointment with surgeon 10-14 days after surgery. Complete lab work prior to this appointment. Follow-up with PCP and/or Overhead Crane Truck Loader prior to seeing surgeon. CALL [facility]IGHT [facility] OFFICE [phone] IF ANY OF THE FOLLOWING OCCURS TO [...] Weapons (Notify Protective Services/Security): None Other Valuables: [employer], [employer] Home Medications: None Valuables Given To: [...] through Care Everywhere.Gastric Bypass Surgery: Nuno-en-Y: Post-op (Macedonian)documented in this encounter [employer] Phone: 10-30-2022 Hospital course Narrative Physician Discharge Summary Batool Kingsley [id number] Admit date: 10/29/2022 Discharge date and time: [...] Your Medications These medications were sent to [facility], [place] - [address] [facility] - P [phone] - F [phone] [address] [facility] [address] traMADol 50 MG tablet Activity: no lifting, [...] 6:48 AM documented in this encounter [employer] Phone: 10-30-2022 History of Present illness Narrative Internal Medicine Progress Note NATHALIE=[facility] Shanta Hernandez D.O., F.A.C.O.I. Christin Mason D.O., F.A.C.O.I. Juliocesar Werner D.O. Francine Kilpatrick, MSN, MAP COMPILER, ASSISTANT VICE PRESIDENT-C Yang Hsu, MSN, MAP COMPILER-LENS GAUGER Primary Care Physician: KAELA ARELLANO APRN - LENS GAUGER Admitting Physician: Deric Florence MD Admission date and time: 10/29/2022 6:02 AM Room: [address] [place] [address] Admitting diagnosis: Morbid obesity (HCC) [E66.01] Post-operative [...] reflux disease with possible hiatal hernia repair Zpz-gzfzued-xsrhikwtn diabetes mellitus type 2 Anxiety Plan: Batool [...] 6:37 AM documented in this encounter [facility] Work Phone: 10-24-2022 History of Present illness Narrative Images from the original note were not included. [facility] PRE OP INSTRUCTIONS FOR Batool Kingsley [...] makeup (including no eye makeup) or nail kittitian on your fingers or toes. DO NOT wear any jewelry or piercings on day of surgery. All body piercing jewelry must be removed. Shower the night before surgery with _x__Antibacterial soap /CHG WIPES___x If you have a Living Will and Durable Power of Aluminum Can Collector for Healthcare, please bring in a copy. [...] and go to information desk Please call TRANSFER AND LINE UP WORKER if you have any further questions. Pre Admit Testing [phone] Human Resources Safety Manager Center [phone] documented in this encounter [employer] Phone: 05-04-2022 Hospital Discharge instructions Ashlie Goyal [...] the day after the test, use an rgxj-akq-fswbesw spray to numb your throat. Follow-up care [...] Where can you learn more? Go to [email or web address] and sign in to your [employer] account. Enter J454 in the Search Health Information box to learn more about Upper GI Endoscopy: What to Expect at Home. If you do not have an account, please click on the Sign Up Now link. Current as of: December 04, 2021 Content Version: 13.4 [employer]. Care instructions adapted under license by [employer]. If you have questions about a medical condition or this instruction, always ask your healthcare professional. [employer] disclaims any warranty or liability for your use of this information. documented in this encounter [facility] Work Phone: 05-04-2022 History of Present illness Narrative SBAR form completed and placed on chart. Chart with patient in transit. Images from the original note were not included. [facility] PRE OP INSTRUCTIONS FOR Batool Kingsley [...] makeup (including no eye makeup) or nail kittitian on your fingers or toes. DO NOT wear any jewelry or piercings on day of surgery. All body piercing jewelry must be removed. Shower the night before surgery with _x__Antibacterial soap /ALEXANDER WIPES TOTAL JOINT REPLACEMENT/HYSTERECTOMY PATIENTS ONLY---Remember to bring Blood Bank bracelet to the hospital on the day of surgery. If you have a Living Will and Durable Power of Aluminum Can Collector for Healthcare, please bring in a copy. [...] safety of all patients. Other Please call TRANSFER AND LINE UP WORKER if you have any further questions. Pre Admit Testing [phone] Human Resources Safety Manager [place] [phone] documented in this encounter [employer] Phone: Evaluation note Diagnosis DUB (dysfunctional uterine bleeding)- Primary Other disorder of menstruation and other abnormal bleeding from female genital tract documented in this encounter [employer] Phone: evaluation note* Diagnosis Gastroesophageal reflux disease- Primary Esophageal reflux Morbid obesity due to excess calories (HCC) documented in this encounter [employer] Phone: evaluation note* Diagnosis Morbid obesity (HCC)- Primary Morbid obesity Preop testing- Primary Preoperative examination, unspecified 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 Morbid obesity (HCC) Morbid obesity documented in this encounter [employer] Phone: evaluation note* Diagnosis S/P gastric bypass- Primary Bariatric surgery status Morbid obesity (HCC) Morbid obesity Post-operative state Other postprocedural status Morbid obesity (HCC) Morbid obesity Post-operative state Other postprocedural status documented in this encounter FLORIDALMA GIPSON [employer] Phone: evaluation note* Diagnosis 27 weeks gestation of Second trimester state, incidental Gestational diabetes mellitus (GDM), antepartum, gestational diabetes method of control unspecified Anemia affecting in second trimester documented in this encounter [facility]* Diagnosis Third trimester state, incidental 29 weeks gestation of Anemia during in third trimester Elevated glucose tolerance test Impaired glucose tolerance test Abnormal thyroid stimulating hormone (TSH) level documented in this encounter [facility] HealthcareEvaluation note* Diagnosis Third trimester state, incidental 31 weeks gestation of Anxiety, generalized (CMS/HCC) Sinusitis, unspecified chronicity, unspecified location documented in this encounter [facility] HealthcareEvaluation note* Diagnosis 34 weeks gestation of Third trimester state, incidental Insomnia, unspecified type History of gastric bypass Gestational diabetes mellitus (GDM), antepartum, gestational diabetes method of control unspecified documented in this encounter [facility] Discharge instructions* Attachments The following attachments cannot be sent through Care Everywhere. * AUB (Abnormal Uterine Bleeding) (Macedonian) [facility] [address] [facility] Phone: Summary Purpose Family History No Family [...] section and content) DATE CREATED AUTHOR 07/16/2020 [facility] [place] DATE CREATED AUTHOR AUTHOR'S ORGANIZ ATION 05/05/2022 [facility] DATE CREATED AUTHOR AUTHOR'S ORGANIZ ATION 02/07/2023 [facility] DATE CREATED AUTHOR AUTHOR'S ORGANIZ ATION 06/04/2023 [facility] DATE CREATED AUTHOR AUTHOR'S ORGANIZ ATION 02/19/2024 [facility] DATE CREATED AUTHOR AUTHOR'S ORGANIZ ATION 03/19/2024 [facility] DATE CREATED AUTHOR AUTHOR'S ORGANIZ ATION 05/27/2024 [facility] dical Specialists [employer]IC Reason for Visit (unrecogniz ed section and content) Reason Comments Vaginal Bleeding 4 pad per hour, larg e clots present Specialty Diagnoses / Procedures Referred By Geronimo reardon Referred To Contact Diagnoses Gastroesophageal reflux disease Gastroesophageal reflux disease [K21.9] Procedures TX EGD TRANSORAL BIOPSY SINGLE/MULTIPLE TX EGD TRANSORAL BIOPSY SINGLE/MULTIPLE TX ESOPHAGOGASTRODUODENOSCOPY TRANSORAL DIAGNOSTIC TX EGD BALLOON DILATION ESOPHAGUS <30 MM DIAM EGD ESOPHAGOGASTRODUODENOSCOPY Deric Florence MD [address] [facility] [facility] [address] [place] [address] [employer] [facility] [address] [place] [address] Referral ID Status Reason Start Date Expiration Date Visits Re quested Visits Authorized [id number] 1 1 Specialty Diagnoses / Procedures Referred By Geronimo reardon Referred To Contact Diagnoses Morbid obesity (HCC) Morbid obesity (HCC) [E66.01] Procedures TX LAPS GSTR RSTCV PX W/BYP NUNO-EN-Y LIMB <150 CM GASTRIC BYPASS NUNO-EN-Y LAPAROSCOPIC Deric Florence MD [address] [place] [address] [facility] [address] [place] [address] Referral ID Status Reason Start Date Expiration Date Visits Re quested Visits Authorized [id number] 1 1 Reason Comments Routine Visit Continuous [...] 100 mL IVPB (COMPLETED) 3,000 mg, IntraVENous, MANAGER RADIO TO O.R., 1 dose, On Sat10/29/22 at [...] of order., Post-op bupivacaine-EPINEPHrine PF (MARCAINE-w/EPINEPHrine) 0.25% -[id number] injection (CANCELED) PRN, Starting on Sat10/29/22 at [...] Provider: Khushi Hebert, MELANIA)1010 (Given - Provider: Khuhsi Hebert, MELANIA) magnesium sulfate 1000 mg in [...]
Care Teams (unrecognized sec tion and content) [employer] Relationship Specialty Start Date End Date Kaela Arellano, MAP COMPILER - LENS GAUGER [address] [facility] [place] [address] PCP - General Certified Nurse Practitioner 04/27/22 [employer] Lab[employer] Relationship Specialty Start Date End Date Kaela Arellano APRN - [facility] [address] 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 [address] PCP - General Certified Nurse Practitioner 09/14/22 [...] BE BASED ON THE PRIMARY CLINICAL RECORDS. [employer] provides no warranty or guarantee of the accuracy or completeness of information in this document.
[2024-06-11 16:39] VITALS: BP 131/60; PULSE 92
--- NOTE | 2024-06-11 16:57 | US_ITS ---
[address] [address] Patient Name: CARLO KINGSLEY MRN: [id number] date: 2000 Sex: F Assigned Patient Location: [facility] Current Patient Location: Accession/Order Number: [id number] Exam Date: 06/11/2024 17:20 Report Date: 06/12/2024 07:32 At the request of: STEPHANIE WEST Procedure: US OB BPP w non-stress EXAMINATION: US OB BPP w non-stress HISTORY: HISTORY OF GASTRIC BYPASS Z98.84 COMPARISON: No relevant comparison available. TECHNIQUE: Ultrasound biophysical profile was performed in the radiology department. non-reactive stress testing was performed by nursing staff in the birthing center. FINDINGS: BREATHING MOVEMENTS: 2 GROSS BODY MOVEMENTS: 2 TONE: 2 QUALITATIVE AMNIOTIC FLUID VOLUME: 2 PRESENTATION: CEPHALIC HEART RATE: 137.06 bpm AMNIOTIC FLUID VOLUME: 15.1 cm GESTATIONAL AGE: 36 weeks 4 days US/US OB BPP w non-stress IMPRESSION: Total biophysical profile score: 8 Electronically authenticated by: HAFSA LAWRENCE Date: 06/12/2024 07:32
== END 2024-06-11 18:00 | disposition home or self-care (01) ==
LOC: US 06:29 → FBC 16:33
PROVIDERS: Visit Provider Obstetrics & Gynecology
DX: O26.893 Other specified pregnancy related conditions, third trimester (principal); Z3A.36 36 weeks gestation of pregnancy; Z98.84 Bariatric surgery status
CPT/HCPCS: 76818

== ENCOUNTER 2024-06-17 06:03 | Outpatient (OUT) | payer OTHER, SELFPAY ==
[2024-06-17 17:00] VITALS: BP 141/62; PULSE 80
[2024-06-17 17:20] VITALS: BP 125/70; PULSE 85
--- NOTE | 2024-06-17 17:39 | PC.NURSE ---
Pt returns FB tomorrow for scheduled induction. Pt given a tour of [facility] labor room.
== END 2024-06-17 17:40 | disposition home or self-care (01) ==
LOC: FBCO 06:03 → FBC 16:50
PROVIDERS: Visit Provider Obstetrics & Gynecology
DX: O99.843 Bariatric surgery status complicating pregnancy, third trimester (principal); Z3A.37 37 weeks gestation of pregnancy
CPT/HCPCS: 59025

== ENCOUNTER 2024-06-18 04:43 | Inpatient (IN) | payer OTHER, SELFPAY ==
[2024-06-18] VITALS (46 sets, daily range): BP systolic 97–169; BP diastolic 46–81; PULSE 66–105; TEMP 35.9–36.6
--- OUTSIDE RECORDS SUMMARY | 2024-06-18 04:47 | XMS_ITS | CCD ---
Author Organization [facility] Care Team Providers Care Programmer Analyst Consultant Name Role Phone Unavailable Primary Care Provider Unavailabl e [place] OPINION POLLS SURVEY WORKER - SHERIE, Kaela Primary Care Provider [phone] DERIC FLORENCE Referring Unavailable GILLIAN, KAELA Primary Care Unavailable [place] OPINION POLLS SURVEY WORKER - VOCAL ARTIST, Kaela Primary Care Provider GILLIAN, KAELA Primary [...] RIVAS Attending Unavailable BRYAN DYER Attending Unavailable BRYAN DYER Attending Unavailable Medications Current Medications Medication Drug Class(es) Dates Sig (Normalized) Sig (Original) [id number] 200 actuat albuterol 0.09 mg/actuat metered dose inhaler (18 sources) beta2-Adrenergic Agonist Start: 01-11-2023 albuterol HFA [...] rs infusion cholecalciferol 0.05 mg oral capsule (20 sources) Vitamin D Start: 09-11-2023 cholecalcifero l (Vitamin D-3) 50 MCG (2000 UT) capsule 1 capsule 1 (one) time each day at the same time 09/11/2023 Active Start: 08-22-2022 GNP VITAMIN D 25 MCG (1000 UT) TABS tablet Start: 10-05-2021 vitamin D 25 M CG (1000 UT) CAPS daily 0 10/05/2021 Suspended diphenhydrAMINE hydrochloride 25 mg oral capsule (7 sources) Histamine-1 Receptor Antagonist Start: 05-25-2024 End: 06-04-2024 take 1 capsule by mouth every six hours diphenhydrAMINE (Benadryl Allergy) 25 MG capsule Indications: Insomnia, unspecified type Take 1 capsule (25 mg) by mouth every 6 (six) hours if needed for itching for up to 10 days 30 capsule 05/25/2024 Active 1000 ml glucose 100 mg/ml injection [...] Starting on Sat10/29/22 at 1159 Mg Lab & nbsp; Repla cement Action 1.4- 1.6 & nbsp; 1 gram IVPB x 2 doses &nbsp ; &nb sp; & nbsp; &nbsp ; &nb sp; & nbsp; (2 gram Total) 1.0- 1.3 &nb sp; 1 gram IVPB x 4 doses &nbsp ; &nb sp; & nbsp; &nbsp ; &nb sp; & nbsp; (4 gram Total) <1.0 &nbs p; &nbs p; &n bsp; CALL PHYSICIAN and &nbs p; &n bsp; &nbs p; &n bsp; 1 gram IVPB x 4 doses &nbs p; (4 gram Total) &nbs p;Infuse at 1 gram/hr Rep eat Mag level next AM Protocol not for use in Patients with CrCl<30ml/min&nb sp; morphine (PF) injection 2 mg (1 source) Start: 10-29-2022 morphine (PF) injection 2 mg nitrofurantoin, macrocrystals 25 mg / nitrofurantoin, monohydrate 75 mg oral capsule (2 sources) Nitrofuran Antibacterial Start: 06-15-2024 End: 06-22-2024 take 1 capsule by mouth in the morning nitrofurantoin, macrocrystal-mon ohydrate, (Macrobid) 100 MG capsule Indications: Dysuria Take 1 capsule (100 mg) by mouth in the morning and 1 capsule (100 mg) before bedtime. Do all this for 7 days. 14 capsule 06/15/2024 06/22/2024 Active Start: 03-27-2022 nitrofurantoin , macrocrystal-monohydrate, (MACROBID) 100 MG capsule every other day 0 03/27/2022 Suspended omeprazole 20 mg delayed release oral capsule (1 source) Proton Pump Inhibitor Start: 10-17-2022 End: 10-17-2023 take 1 capsule by mouth once daily omeprazole (PRILOSEC) 20 MG delayed release capsule Indications: Gastroesophageal reflux disease without esophagitis Take 1 capsule by mouth Daily 30 capsule 12 10/17/2022 10/17/2023 Active Potassium Chloride (1 source) Start: 10-29-2022 potassium chloride (KLOR-CON M) extended release tablet 40 mEq Vit-Fe Fumarate-FA ( Plus/Iron) 27-1 MG tablet (18 sources) Start: 12-17-2023 End: 12-16-2024 take 1 [...] End: 10-29-2022 midazolam (VERSED) 2 MG/2ML injection 2 ml ondansetron 2 mg/ml injection (3 [...] or Vomiting 15 tablet 0 10/17/2022 Active polysaccharide iron complex 391 mg oral capsule (16 sources) Start: 03-12-2024 End: 06-10-2024 take 1 capsule by mouth once daily iron polysaccharides (ProFe) 391.3 (180 Fe) MG capsule Indications: Anemia affecting in second trimester Take 1 capsule (391.3 mg) by mouth Daily 30 capsule 2 03/12/2024 06/10/2024 2 ml prochlorperazine 5 mg/ml injection (3 [...] tolerance complicating ; childbirth; or the puerperium (13 sources) Gestational diabetes mellitus; Translations: [Gestational diabetes [...] unspecified, unspecified trimester] Onset: 4 Episodic Other complications of (2 sources) Patient noncompliance - general; Translations: [Supervision of other high risk pregnancies, third trimester] 06-11-2024 Episodic Other disorders of stomach and duodenum [...] bleeding] Onset: 2 Chronic Other gastrointestinal disorders (13 sources) History of bypass of stomach; Translations: [...] 4 Chronic Other and delivery including normal (11 sources) Encounter for supervision of normal , [...] sources) Insomnia; Translations: [Insomnia, unspecified] 05-25-2024 Episodic Residual codes; unclassified (2 sources) Gestation period, 36 weeks; Translations: [36 weeks gestation of ] 06-10-2024 Episodic Thyroid disorders (2 sources) Hypothyroidism, unspecified; [...] Test Name Value Interpretation Reference Range Facility ALL MISCELLANEOUS TESTon MISCELLANEOUS TEST COMMENT . [facility] Comment on above: Test Ordered: [id number] Strep Gp B SUJATA+Rflx Strep Gp B SUJATA+Rflx Negative CB Reference Range: Negative Centers for Disease Control and Prevention (CDC) and [place] Congress of Obstetricians and Gynecologists (ACOG) guidelines for prevention of group B streptococcal (GBS) disease specify co-collection of a vaginal and rectal swab specimen to maximize sensitivity of GBS detection. Per the CDC and ACOG, swabbing both the lower vagina and rectum substantially increases the yield of detection compared with sampling the vagina alone. Penicillin G, ampicillin, or cefazolin are indicated for intrapartum prophylaxis of GBS colonization. Reflex susceptibility testing should be performed prior to use of clindamycin only on GBS isolates from penicillin- allergic women who are considered a high risk for anaphylaxis. Treatment with vancomycin without additional testing is warranted if resistance to clindamycin is noted. Performed at: [facility] [address] [id number] Beveller Operator: Guillermo Gu PhD, Phone: [phone] VAG/REC [id number] Group B Streptococcus Colonization Detection, SUJATA With Refle [facility] e Urinalysis macro (dipstick) panel (U)on 06-10-2024 Bilirubin, UA Negative Negative - 4(70) +++ mg/dL [facility] Blood, UA Negative Negative - 50 Marcus/mcL [facility] Clarity, UA Clear [facility] Healthca re Color, UA Yellow [facility] Glucose, UA Negative Negative - 2000(110) ++++ mg/dL [facility] Interpretation and review of laboratory results Abnormal [facility] Ketones, UA Positive Negative - 160(16) ++++ mg/dL [facility] Comment on above: trace Leukocytes, UA Negative Negative - 500+++ Henrique/mcL [facility] Nitrite, UA Negative Negative - Positive [facility] pH, UA 5.5 5 - 9 [facility] Health[facility] Protein, UA Trace Negative - 1999(20) ++++ mg/dL [facility] Healthcare Spec Grav, UA 1.03 1 - 1.03 [facility] care Urobilinogen, UA 1.0 0.2 - 12 mg/dL [facility] macro (dipstick) panel (U)on 05-25-2024 Bilirubin, UA Negative Negative - 4(70) +++ mg/dL [facility] Blood, UA Negative Negative - 50 Marcus/mcL [facility] Healthcare Clarity, UA Clear [facility] Color, UA Yellow [facility] Glucose, UA Negative Negative - 1999(110) ++++ mg/dL [facility] Interpretation and review of laboratory results Normal [facility] Ketones, UA Negative Negative - 160(16) ++++ mg/dL [facility] Leukocytes, UA Negative Negative - 500+++ Henrique/mcL [facility] Nitrite, UA Negative Negative - Positive [facility] pH, UA 5.5 5 - 9 [facility] Health[facility] e Protein, UA Negative Negative - 1999(20) ++++ mg/dL [facility] Spec Grav, UA 1.03 1 - 1.03 [facility] Urobilinogen, UA 0.2 0.2 - 12 mg/dL [facility] Urinalysis macro (dipstick) panel (U)on 05-06-2024 Bilirubin, UA Positive Negative - 4(70) +++ mg/dL [facility] Comment on above: small Blood, UA Negative Negative - 50 Marcus/mcL [facility] Healthcare Clarity, UA Clear [facility] re Color, UA Yellow [facility] Glucose, UA Negative Negative - 1999(110) ++++ mg/dL [facility] Interpretation and review of laboratory results Abnormal [facility] Ketones, UA Negative Negative - 160(16) ++++ mg/dL [facility] Leukocytes, UA Negative Negative - 500+++ Henrique/mcL [facility] Nitrite, UA Negative Negative - Positive [facility] pH, UA 5.5 5 - 9 [facility] Protein, UA Negative Negative - 1999(20) ++++ mg/dL [facility] Healthcare Spec Grav, UA 1.03 1 - 1.03 [facility] Urobilinogen, UA 1.0 0.2 - 12 mg/dL [facility] ALL CBC WITH AUTO DIFFon BASOPHILS ABSOLUTE AUTO [address] [facility] Basophils/100 WBC (Bld) 0.2 % 0.2 - 2.0 % [facility] Eosinophils/100 WBC (Bld) 1.7 % 0.9 - 7.0 % [facility] Erythrocyte distribution width (RBC) [Ratio] 12.8 % 11.0 - 15.0 % [facility] Hematocrit (Bld) [Volume fraction] 33.8 % Low 36.0 - 48.0 % [facility] Hemoglobin (Bld) [Mass/Vol] 11.6 g/dL Low 12.0 - 16.0 g/dL [facility] IMMATURE GRANULOCYTES ABS AUTO 0.[address] [facility] Immature granulocytes/100 WBC (Bld) 0.6 % High 0.0 - 0.5 % [facility] Interpretation and review of laboratory results Abnormal [facility] LYMPHOCYTES ABSOLUTE AUTO 3.1 [facility] Lymphocytes/100 WBC (Bld) 31.7 % 20.5 - 60.0 % [facility] MCH (RBC) [Entitic mass] 32 pg 26.7 - 34.[address] [facility] MCHC (RBC) [Mass/Vol] 34.3 g/dL 29.9 - 35.2 g/dL [facility] MCV (RBC) [Entitic vol] 93.1 fL 81.0 - 99.[address] [facility] MONOCYTES ABSOLUTE AUTO 0.5 [facility] Monocytes/100 WBC (Bld) 5.1 % 1.7 - 12.0 % [facility] NEUTROPHILS ABSOLUTE AUTO 5.9 [facility] Neutrophils/100 WBC (Bld) 60.7 % 43.0 - 75.0 % [facility] Platelet mean volume (Bld) [Entitic vol] 10.2 fL 9.5 - 13.[address] [facility] TBH EO # 0.2 [facility] TBH PLT 249 [facility] e TB RBC 3.63 Low [facility] e TB WBC 9.6 [facility] e Urinalysis macro (dipstick) panel (U)on 04-07-2024 Bilirubin, UA Negative Negative - 4(70) +++ mg/dL [facility] Blood, UA Negative Negative - 50 Marcus/mcL [facility] Clarity, UA Clear [facility] Health[facility] re Color, UA Yellow [facility] Glucose, UA Negative Negative - 1999(110) ++++ mg/dL [facility] Interpretation and review of laboratory results Normal [facility] Ketones, UA Negative Negative - 160(16) ++++ mg/dL [facility] Leukocytes, UA Negative Negative - 500+++ Henrique/mcL [facility] Nitrite, UA Negative Negative - Positive [facility] pH, UA 6.5 5 - 9 [facility] Health[facility] Protein, UA Negative Negative - 1999(20) ++++ mg/dL [facility] Spec Grav, UA 1.025 1 - 1.03 [facility] Urobilinogen, UA 1.0 0.2 - 12 mg/dL [facility] HCG ( test) Ql (U)o n 11-10-2023 Beta HCG ( test) Ql (U) Positive Abnormal [facility] Comment on above: Performed By: #### 2 106-3 #### [facility] ([id number]) [address] [place] [address] URN MACROSCOPIC NURon 2023 BILIRUBIN [place] Negative Normal [facility] Comment on above: Performed By: #### N UM #### [facility] ([id number]) [address] [place] [address] BLOOD/HGB [place] Trace Abnormal [facility] Comment on above: Performed By: #### N UM #### [facility] ([id number]) [address] [place] [address] [place] [address] GLUCOSE [place] Negative Normal [facility] Comment on above: Performed By: #### N UM #### [facility] ([id number]) [address] [place] [address] [place] [address] KETONES [place] Trace Abnormal [facility] Comment on above: Performed By: #### N UM #### [facility] ([id number]) [address] [place] [address]85 LEUKOCYTE ESTERASE [place] Small Abnormal NEG [facility] Comment on above: Performed By: #### N UM #### [facility] ([id number]) [address] [place] [address] NITRITE [place] Negative Normal NEG [facility] Comment on above: Performed By: #### N UM #### [facility] ([id number]) [address] [place] [address] PH [place] 6.0 Normal 5.0-8.5 [facility] Comment on above: Performed By: #### N UM #### [facility] ([id number]) [address] [place] [address] PROTEIN [place] Negative Normal NEG [facility] Comment on above: Performed By: #### N UM #### [facility] ([id number]) [address] [place] [address] SPECIFIC GRAVITY [place] 1.025 Normal 1.003-1.035 [facility] Comment on above: Performed By: #### N UM #### [facility] ([id number]) [address] [place] [address] UROBILINOGEN [place] 2.0 eu/dL High <1.1 [facility] Comment on above: Performed By: #### N UM #### [facility] ([id number]) [address] [place] [address] SARS/FLU A+B/RSV [facility] SARS/FLU A+B/RSV by NAAT/Molecular FLU A [...] operators who are performing tests using either [employer] or [employer] systems and is limited to laboratories that [...] repeat. Fact Sheet for Healthcare Providers: https://www.fda.gov /media/592869/downl oad Fact Sheet for Patients: https://www.fda.gov /media/819911/downl oad Normal [facility] Comment on above: Performed By: #### C OVFLR #### [facility] ([id number]) [address] [place] [address], [place] [address] VITAMIN B1-THIAMINE WHOLE BL Don 12-20-2022 VITAMIN B1-THIAMINE WHOLE BLD 142.2 nmol/L Normal 66.5-200.0 [facility] Comment on above: Order Comment: FAX R ESULTS TO DR FLORENCE: [phone] Result Comment: This test was developed and its performance characteristics determined by [employer]. It has not been cleared or approved by the Food and Drug Administration. Performed at: [address] [id number] Beveller Operator: Estuardo Michelle MD, Phone: [phone] This test was developed and its performance characteristics determined by [employer]. It has not been cleared or approved by the Food and Drug Administration. Performed By: #### V ITB1, ZINC #### [facility] [address] [place] [address] #### B12, FOL, CMP, PREALB, ANDREZ, CBCD #### [facility] [address] [place] [address] ZINC, PLASMAon 12-18-2022 ZINC, PLASMA 86 ug/dL Normal 44-115 [facility] Comment on above: Order Comment: FAX R ESULTS TO DR FLORENCE: [phone] Result Comment: This test was developed and its performance characteristics determined by [employer]. It has not been cleared or approved by the Food and Drug Administration. Detection Limit = 5 Performed at: [address] [id number] Beveller Operator: Estuardo Michelle MD, Phone: [phone] This test was developed and its performance characteristics determined by [employer]. It has not been cleared or approved by the Food and Drug Administration. Performed By: #### V ITB1, ZINC #### [facility] [address] [place] [address] #### B12, FOL, CMP, PREALB, ANDREZ, CBCD #### [facility] [address] [place] [address] CBC with DIFFERENTIALon 11-29 Basophils (Bld) [#/Vol] 0.0 10*3/uL Normal 0.0-0.1 [facility] Comment on above: Order Comment: FAX R ESULTS TO DR FLORENCE: [phone] Performed By: #### V ITB1, ZINC #### [facility] [address] [place] [address] #### B12, FOL, CMP, PREALB, ANDREZ, CBCD #### [facility] [address] [place] [address] Basophils/100 WBC (Bld) 0.5 % Normal 0.0-1.0 [facility] Comment on above: Order Comment: FAX R ESULTS TO DR FLORENCE: [phone] Performed By: #### V ITB1, ZINC #### [facility] [address] [place] [address] #### B12, FOL, CMP, PREALB, ANDREZ, CBCD #### [facility] [address] [place] [address] Eosinophils (Bld) [#/Vol] 0.4 10*3/uL Normal 0.0-0.4 [facility] Comment on above: Order Comment: FAX R ESULTS TO DR FLORENCE: [phone] Performed By: #### V ITB1, ZINC #### [facility] [address] [place] [address] #### B12, FOL, CMP, PREALB, ANDREZ, CBCD #### [facility] [address] [place] [address] Eosinophils/100 WBC (Bld) 4.8 % High 1.0-4.0 [facility] Comment on above: Order Comment: FAX R ESULTS TO DR FLORENCE: [phone] Performed By: #### V ITB1, ZINC #### [facility] [address] [place] [address] #### B12, FOL, CMP, PREALB, ANDREZ, CBCD #### [facility] [address] [place] [address] Hematocrit (Bld) [Volume fraction] 41.9 % Normal 37.0-47.0 [facility] Comment on above: Order Comment: FAX R ESULTS TO DR FLORENCE: [phone] Performed By: #### V ITB1, ZINC #### [facility] [address] [place] [address] #### B12, FOL, CMP, PREALB, ANDREZ, CBCD #### [facility] [address] [place] [address] Hemoglobin (Bld) [Mass/Vol] 13.8 g/dL Normal 12.0-16.0 [facility] Comment on above: Order Comment: FAX R ESULTS TO DR FLORENCE: [phone] Performed By: #### V ITB1, ZINC #### [facility] [address] [place] [address] #### B12, FOL, CMP, PREALB, ANDREZ, CBCD #### [facility] [address] [place] [address] IG # 0.0 10*3/uL Normal 0.0-0.1 [facility] Comment on above: Order Comment: FAX R ESULTS TO DR FLORENCE: [phone] Performed By: #### V ITB1, ZINC #### [facility] [address] [place] [address] #### B12, FOL, CMP, PREALB, ANDREZ, CBCD #### [facility] [address] [place] [address] IG % 0.4 % Normal 0.0-1.0 [facility] Comment on above: Order Comment: FAX R ESULTS TO DR FLORENCE: [phone] Performed By: #### V ITB1, ZINC #### [facility] [address] [place] [address] #### B12, FOL, CMP, PREALB, ANDREZ, CBCD #### [facility] [address] [place] [address] Lymphocytes (Bld) [#/Vol] 3.8 10*3/uL Normal 1.3-4.4 [facility] Comment on above: Order Comment: FAX R ESULTS TO DR FLORENCE: [phone] Performed By: #### V ITB1, ZINC #### [facility] [address] [place] [address] #### B12, FOL, CMP, PREALB, ANDREZ, CBCD #### [facility] [address] [place] [address] Lymphocytes/100 WBC (Bld) 45.5 % High 27.0-41.0 [facility] Comment on above: Order Comment: FAX R ESULTS TO DR FLORENCE: [phone] Performed By: #### V ITB1, ZINC #### [facility] [address] [place] [address] #### B12, FOL, CMP, PREALB, ANDREZ, CBCD #### [facility] [address] [place] [address] MCV (RBC) [Entitic vol] 89.3 fL Normal 81.0-99.0 [facility] Comment on above: Order Comment: FAX R ESULTS TO DR FLORENCE: [phone] Performed By: #### V ITB1, ZINC #### [facility] [address] [place] [address] #### B12, FOL, CMP, PREALB, ANDREZ, CBCD #### [facility] [address] [place] [address] MEAN CORPUSCULAR HGB 29.4 pg Normal 27.0-31.0 [facility] Comment on above: Order Comment: FAX R ESULTS TO DR FLORENCE: [phone] Performed By: #### V ITB1, ZINC #### [facility] [address] [place] [address] #### B12, FOL, CMP, PREALB, ANDREZ, CBCD #### [facility] [address] [place] [address] MEAN CORPUSCULAR HGB CONC 32.9 g/dl Low 33.0-37.0 [facility] Comment on above: Order Comment: FAX R ESULTS TO DR FLORENCE: [phone] Performed By: #### V ITB1, ZINC #### [facility] [address] [place] [address] #### B12, FOL, CMP, PREALB, ANDREZ, CBCD #### [facility] [address] [place] [address] Monocytes (Bld) [#/Vol] 0.4 10*3/uL Normal 0.1-1.0 [facility] Comment on above: Order Comment: FAX R ESULTS TO DR FLORENCE: [phone] Performed By: #### V ITB1, ZINC #### [facility] [address] [place] [address] #### B12, FOL, CMP, PREALB, ANDREZ, CBCD #### [facility] [address] [place] [address] Monocytes/100 WBC (Bld) 4.3 % Normal 3.0-9.0 [facility] Comment on above: Order Comment: FAX R ESULTS TO DR FLORENCE: [phone] Performed By: #### V ITB1, ZINC #### [facility] [address] [place] [address] #### B12, FOL, CMP, PREALB, ANDREZ, CBCD #### [facility] [address] [place] [address] Neutrophils (Bld) [#/Vol] 3.7 10*3/uL Normal 2.3-7.9 [facility] Comment on above: Order Comment: FAX R ESULTS TO DR FLORENCE: [phone] Performed By: #### V ITB1, ZINC #### [facility] [address] [place] [address] #### B12, FOL, CMP, PREALB, ANDREZ, CBCD #### [facility] [address] [place] [address] Neutrophils/100 WBC (Bld) 44.5 % Low 47.0-73.0 [facility] Comment on above: Order Comment: FAX R ESULTS TO DR FLORENCE: [phone] Performed By: #### V ITB1, ZINC #### [facility] [address] [place] [address] #### B12, FOL, CMP, PREALB, ANDREZ, CBCD #### [facility] [address] [place] [address] NUCLEATED RED BLOOD CELL 0.0 10*3/uL Normal 0.0-0.0 [facility] Comment on above: Order Comment: FAX R ESULTS TO DR FLORENCE: [phone] Performed By: #### V ITB1, ZINC #### [facility] [address] [place] [address] #### B12, FOL, CMP, PREALB, ANDREZ, CBCD #### [facility] [address] [place] [address] NUCLEATED RED BLOOD CELL 0.0 % Normal 0.0-0.0 [facility] Comment on above: Order Comment: FAX R ESULTS TO DR FLORENCE: [phone] Performed By: #### V ITB1, ZINC #### [facility] [address] [place] [address] #### B12, FOL, CMP, PREALB, ANDREZ, CBCD #### [facility] [address] [place] [address] PLATELET COUNT AUTOMATED 277 10*3/uL Normal 130-400 [facility] Comment on above: Order Comment: FAX R ESULTS TO DR FLORENCE: [phone] Performed By: #### V ITB1, ZINC #### [facility] [address] [place] [address] #### B12, FOL, CMP, PREALB, ANDREZ, CBCD #### [facility] [address] [place] [address] Platelet mean volume (Bld) [Entitic vol] 11.2 fL Normal 9.6-12.3 [facility] Comment on above: Order Comment: FAX R ESULTS TO DR FLORENCE: [phone] Performed By: #### V ITB1, ZINC #### [facility] [address] [place] [address] #### B12, FOL, CMP, PREALB, ANDREZ, CBCD #### [facility] [address] [place] [address] RBC (Bld) [#/Vol] 4.69 10*6/uL Normal 4.10-5.10 [facility] Comment on above: Order Comment: FAX R ESULTS TO DR FLORENCE: [phone] Performed By: #### V ITB1, ZINC #### [facility] [address] [place] [address] #### B12, FOL, CMP, PREALB, ANDREZ, CBCD #### [facility] [address] [place] [address] RED CELL DISTRI WIDTH 13.5 % Normal 0-14.5 [facility] Comment on above: Order Comment: FAX R ESULTS TO DR FLORENCE: [phone] Performed By: #### V ITB1, ZINC #### [facility] [address] [place] [address] #### B12, FOL, CMP, PREALB, ANDREZ, CBCD #### [facility] [address] [place] [address] WBC (Bld) [#/Vol] 8.3 10*3/uL Normal 4.8-10.8 [facility] Comment on above: Order Comment: FAX R ESULTS TO DR FLORENCE: [phone] Performed By: #### V ITB1, ZINC #### [facility] [address] [place] [address] #### B12, FOL, CMP, PREALB, ANDREZ, CBCD #### [facility] [address] [place] [address] COMPREHENSIVE METABOLIC PANE Evan 12-14-2022 Albumin [Mass/Vol] 3.8 g/dL Normal 3.4-5.0 [facility] Comment on above: Order Comment: FAX R ESULTS TO DR FLORENCE: [phone] Performed By: #### V ITB1, ZINC #### [facility] [address] [place] [address] #### B12, FOL, CMP, PREALB, ANDREZ, CBCD #### [facility] [address] [place] [address] ALP [Catalytic activity/Vol] 74 U/L Normal 46-116 [facility] Comment on above: Order Comment: FAX R ESULTS TO DR FLORENCE: [phone] Performed By: #### V ITB1, ZINC #### [facility] [address] [place] [address] #### B12, FOL, CMP, PREALB, ANDREZ, CBCD #### [facility] [address] [place] [address] ALT [Catalytic activity/Vol] 34 U/L Normal 10-49 [facility] Comment on above: Order Comment: FAX R ESULTS TO DR FLORENCE: [phone] Performed By: #### V ITB1, ZINC #### [facility] [address] [place] [address] #### B12, FOL, CMP, PREALB, ANDREZ, CBCD #### [facility] [address] [place] [address] AST [Catalytic activity/Vol] 19 U/L Normal 0-34 [facility] Comment on above: Order Comment: FAX R ESULTS TO DR FLORENCE: [phone] Performed By: #### V ITB1, ZINC #### [facility] [address] [place] [address] #### B12, FOL, CMP, PREALB, ANDREZ, CBCD #### [facility] [address] [place] [address] Bilirubin [Mass/Vol] 0.3 mg/dL Normal 0.3-1.2 [facility] Comment on above: Order Comment: FAX R ESULTS TO DR FLORENCE: [phone] Performed By: #### V ITB1, ZINC #### [facility] [address] [place] [address] #### B12, FOL, CMP, PREALB, ANDREZ, CBCD #### [facility] [address] [place] [address] [place] [address] CALCIUM,TOTAL 9.0 md/dL Normal 8.7-10.4 [facility] Comment on above: Order Comment: FAX R ESULTS TO DR FLORENCE: [phone] Performed By: #### V ITB1, ZINC #### [facility] [address] [place] [address] #### B12, FOL, CMP, PREALB, ANDREZ, CBCD #### [facility] [address] [place] [address] Chloride [Moles/Vol] 109 mmol/L High 98-107 [facility] Comment on above: Order Comment: FAX R ESULTS TO DR FLORENCE: [phone] Performed By: #### V ITB1, ZINC #### [facility] [address] [place] [address] #### B12, FOL, CMP, PREALB, ANDREZ, CBCD #### [facility] [address] [place] [address] CO2 [Moles/Vol] 27 mmol/L Normal 20-31 [place] Comment on above: Order Comment: FAX R ESULTS TO DR FLORENCE: [phone] Performed By: #### V ITB1, ZINC #### [facility] [address] [place] [address] #### B12, FOL, CMP, PREALB, ANDREZ, CBCD #### [facility] [address] [place] [address] Creatinine [Mass/Vol] 0.62 mg/dL Normal 0.55-1.02 [facility] Comment on above: Order Comment: FAX R ESULTS TO DR FLORENCE: [phone] Performed By: #### V ITB1, ZINC #### [facility] [address] [place] [address] #### B12, FOL, CMP, PREALB, ANDREZ, CBCD #### [facility] [address] [place] [address] EST GLOM FILT > 60 Normal [facility] Comment on above: Order Comment: FAX R ESULTS TO DR FLORENCE: [phone] Result Comment: Result Units: mL/min/1.73 m2 Note: [...] By: #### V ITB1, ZINC #### [facility] [address] [place] [address] #### B12, FOL, CMP, PREALB, ANDREZ, CBCD #### [facility] [address] [place] [address] ESTIMATED GLOM FILT RATE > 60 Normal [facility] Comment on above: Order Comment: FAX R ESULTS TO DR FLORENCE: [phone] Performed By: #### V ITB1, ZINC #### [facility] [address] [place] [address] #### B12, FOL, CMP, PREALB, ANDREZ, CBCD #### [facility] [address] [place] [address] Glucose [Mass/Vol] 103 mg/dL High 65-99 [facility] Comment on above: Order Comment: FAX R ESULTS TO DR FLORENCE: [phone] Performed By: #### V ITB1, ZINC #### [facility] [address] [place] [address] #### B12, FOL, CMP, PREALB, ANDREZ, CBCD #### [facility] [address] [place] [address] Potassium [Moles/Vol] 3.6 mmol/L Normal 3.4-5.1 [facility] Comment on above: Order Comment: FAX R ESULTS TO DR FLORENCE: [phone] Performed By: #### V ITB1, ZINC #### [facility] [address] [place] [address] #### B12, FOL, CMP, PREALB, ANDREZ, CBCD #### [facility] [address] [place] [address] Protein [Mass/Vol] 6.5 g/dL Normal 6.0-8.0 [facility] Comment on above: Order Comment: FAX R ESULTS TO DR FLORENCE: [phone] Performed By: #### V ITB1, ZINC #### [facility] [address] [place] [address] #### B12, FOL, CMP, PREALB, ANDREZ, CBCD #### [facility] [address] [place] [address] Sodium [Moles/Vol] 138 mmol/L Normal 136-145 [facility] Comment on above: Order Comment: FAX R ESULTS TO DR FLORENCE: [phone] Performed By: #### V ITB1, ZINC #### [facility] [address] [place] [address] #### B12, FOL, CMP, PREALB, ANDREZ, CBCD #### [facility] [address] [place] [address] Urea nitrogen [Mass/Vol] 8 mg/dL Low 9-23 [facility] Comment on above: Order Comment: FAX R ESULTS TO DR FLORENCE: [phone] Performed By: #### V ITB1, ZINC #### [facility] [address] [place] [address] #### B12, FOL, CMP, PREALB, ANDREZ, CBCD #### [facility] [address] [place] [address] FERRITINon 12-14-2022 Ferritin [Mass/Vol] 40.9 ng/mL Normal 7.3-307.3 [facility] Comment on above: Order Comment: FAX R ESULTS TO DR FLORENCE: [phone] Performed By: #### V ITB1, ZINC #### [facility] [address] [place] [address] #### B12, FOL, CMP, PREALB, ANDREZ, CBCD #### [facility] [address] [place] [address] FOLIC ACIDon 12-14-2022 FOLIC ACID 16.04 ng/mL Normal 5.38-24.00 [facility] Comment on above: Order Comment: FAX R ESULTS TO DR FLORENCE: [phone] Result Comment: 0.35 - 3.7 ng/mL - Folate Deficiency 3.38 - 5.38 ng/mL - Indeterminate > 5.38 ng/mL - Normal Performed By: #### V ITB1, ZINC #### [facility] [address] [place] [address] #### B12, FOL, CMP, PREALB, ANDREZ, CBCD #### [facility] [address] [place] [address] PREALBUMINon 12-14-2022 Prealbumin [Mass/Vol] 16 mg/dL Normal 10-40 [facility] Comment on above: Order Comment: FAX R ESULTS TO DR FLORENCE: [phone] Performed By: #### V ITB1, ZINC #### [facility] [address] [place] [address] #### B12, FOL, CMP, PREALB, ANDREZ, CBCD #### [facility] [address] [place] [address] VITAMIN B12on 12-14-2022 Cobalamin (Vitamin B12) [Mass/Vol] 261 pg/mL Normal 211-911 [facility] Comment on above: Order Comment: FAX R ESULTS TO DR FLORENCE: [phone] Result Comment: 247 - 911 pg/mL - Normal, Vitamin B12 Sufficiency Performed By: #### V ITB1, ZINC #### [facility] [address] [place] [address] #### B12, FOL, CMP, PREALB, ANDREZ, CBCD #### [facility] [address] [place] [address] CBC with DIFFERENTIALon Basophils (Bld) [#/Vol] 0.0 10*3/uL Normal 0.0-0.1 [facility] Comment on above: Performed By: #### V ITB1, ZINC #### [facility] [address] [place] [address] #### B12, FOL, CMP, PREALB, ANDREZ, CBCD #### [facility] [address] [place] [address] Basophils/100 WBC (Bld) 0.6 % Normal 0.0-1.0 [facility] Comment on above: Performed By: #### V ITB1, ZINC #### [facility] [address] [place] [address] #### B12, FOL, CMP, PREALB, ANDREZ, CBCD #### [facility] [address] [place] [address] Eosinophils (Bld) [#/Vol] 0.4 10*3/uL Normal 0.0-0.4 [facility] Comment on above: Performed By: #### V ITB1, ZINC #### [facility] [address] [place] [address] #### B12, FOL, CMP, PREALB, ANDREZ, CBCD #### [facility] [address] [place] [address] Eosinophils/100 WBC (Bld) 6.0 % High 1.0-4.0 [facility] Comment on above: Performed By: #### V ITB1, ZINC #### [facility] [address] [place] [address] #### B12, FOL, CMP, PREALB, ANDREZ, CBCD #### [facility] [address] [place] [address] Hematocrit (Bld) [Volume fraction] 42.2 % Normal 37.0-47.0 [facility] Comment on above: Performed By: #### V ITB1, ZINC #### [facility] [address] [place] [address] #### B12, FOL, CMP, PREALB, ANDREZ, CBCD #### [facility] [address] [place] [address] Hemoglobin (Bld) [Mass/Vol] 14.0 g/dL Normal 12.0-16.0 [facility] Comment on above: Performed By: #### V ITB1, ZINC #### [facility] [address] [place] [address] #### B12, FOL, CMP, PREALB, ANDREZ, CBCD #### [facility] [address] [place] [address] IG # 0.0 10*3/uL Normal 0.0-0.1 [facility] Comment on above: Performed By: #### V ITB1, ZINC #### [facility] [address] [place] [address] #### B12, FOL, CMP, PREALB, ANDREZ, CBCD #### [facility] [address] [place] [address] IG % 0.2 % Normal 0.0-1.0 [facility] Comment on above: Performed By: #### V ITB1, ZINC #### [facility] [address] [place] [address] #### B12, FOL, CMP, PREALB, ANDREZ, CBCD #### [facility] [address] [place] [address] Lymphocytes (Bld) [#/Vol] 3.4 10*3/uL Normal 1.3-4.4 [facility] Comment on above: Performed By: #### V ITB1, ZINC #### [facility] [address] [place] [address] #### B12, FOL, CMP, PREALB, ANDREZ, CBCD #### [facility] [address] [place] [address] Lymphocytes/100 WBC (Bld) 53.6 % High 27.0-41.0 [facility] Comment on above: Performed By: #### V ITB1, ZINC #### [facility] [address] [place] [address] #### B12, FOL, CMP, PREALB, ANDREZ, CBCD #### [facility] [address] [place] [address] MCV (RBC) [Entitic vol] 88.5 fL Normal 81.0-99.0 [facility] Comment on above: Performed By: #### V ITB1, ZINC #### [facility] [address] [place] [address] #### B12, FOL, CMP, PREALB, ANDREZ, CBCD #### [facility] [address] [place] [address] MEAN CORPUSCULAR HGB 29.4 pg Normal 27.0-31.0 [facility] Comment on above: Performed By: #### V ITB1, ZINC #### [facility] [address] [place] [address] #### B12, FOL, CMP, PREALB, ANDREZ, CBCD #### [facility] [address] [place] [address] MEAN CORPUSCULAR HGB CONC 33.2 g/dl Normal 33.0-37.0 [facility] Comment on above: Performed By: #### V ITB1, ZINC #### [facility] [address] [place] [address] #### B12, FOL, CMP, PREALB, ANDREZ, CBCD #### [facility] [address] [place] [address] Monocytes (Bld) [#/Vol] 0.3 10*3/uL Normal 0.1-1.0 [facility] Comment on above: Performed By: #### V ITB1, ZINC #### [facility] [address] [place] [address] #### B12, FOL, CMP, PREALB, ANDREZ, CBCD #### [facility] [address] [place] [address] Monocytes/100 WBC (Bld) 4.8 % Normal 3.0-9.0 [facility] Comment on above: Performed By: #### V ITB1, ZINC #### [facility] [address] [place] [address] #### B12, FOL, CMP, PREALB, ANDREZ, CBCD #### [facility] [address] [place] [address] Neutrophils (Bld) [#/Vol] 2.2 10*3/uL Low 2.3-7.9 [facility] Comment on above: Performed By: #### V ITB1, ZINC #### [facility] [address] [place] [address] #### B12, FOL, CMP, PREALB, ANDREZ, CBCD #### [facility] [address] [place] [address] Neutrophils/100 WBC (Bld) 34.8 % Low 47.0-73.0 [facility] Comment on above: Performed By: #### V ITB1, ZINC #### [facility] [address] [place] [address] #### B12, FOL, CMP, PREALB, ANDREZ, CBCD #### [facility] [address] [place] [address] NUCLEATED RED BLOOD CELL 0.0 10*3/uL Normal 0.0-0.0 [facility] Comment on above: Performed By: #### V ITB1, ZINC #### [facility] [address] [place] [address] #### B12, FOL, CMP, PREALB, ANDREZ, CBCD #### [facility] [address] [place] [address] NUCLEATED RED BLOOD CELL 0.0 % Normal 0.0-0.0 [facility] Comment on above: Performed By: #### V ITB1, ZINC #### [facility] [address] [place] [address] #### B12, FOL, CMP, PREALB, ANDREZ, CBCD #### [facility] [address] [place] [address] PLATELET COUNT AUTOMATED 265 10*3/uL Normal 130-400 [facility] Comment on above: Performed By: #### V ITB1, ZINC #### [facility] [address] [place] [address] #### B12, FOL, CMP, PREALB, ANDREZ, CBCD #### [facility] [address] [place] [address] Platelet mean volume (Bld) [Entitic vol] 11.3 fL Normal 9.6-12.3 [facility] Comment on above: Performed By: #### V ITB1, ZINC #### [facility] [address] [place] [address] #### B12, FOL, CMP, PREALB, ANDREZ, CBCD #### [facility] [address] [place] [address] RBC (Bld) [#/Vol] 4.77 10*6/uL Normal 4.10-5.10 [facility] Comment on above: Performed By: #### V ITB1, ZINC #### [facility] [address] [place] [address] #### B12, FOL, CMP, PREALB, ANDREZ, CBCD #### [facility] [address] [place] [address] RED CELL DISTRI WIDTH 13.9 % Normal 0-14.5 [facility] Comment on above: Performed By: #### V ITB1, ZINC #### [facility] [address] [place] [address] #### B12, FOL, CMP, PREALB, ANDREZ, CBCD #### [facility] [address] [place] [address] WBC (Bld) [#/Vol] 6.3 10*3/uL Normal 4.8-10.8 [facility] Comment on above: Performed By: #### V ITB1, ZINC #### [facility] [address] [place] [address] #### B12, FOL, CMP, PREALB, ANDREZ, CBCD #### [facility] [address] [place] [address] COMPREHENSIVE METABOLIC PANE Evan 12-03-2022 Albumin [Mass/Vol] 4.0 g/dL Normal 3.4-5.0 [facility] Comment on above: Performed By: #### V ITB1, ZINC #### [facility] [address] [place] [address] #### B12, FOL, CMP, PREALB, ANDREZ, CBCD #### [facility] [address] [place] [address] ALP [Catalytic activity/Vol] 69 U/L Normal 46-116 [facility] Comment on above: Performed By: #### V ITB1, ZINC #### [facility] [address] [place] [address] #### B12, FOL, CMP, PREALB, ANDREZ, CBCD #### [facility] [address] [place] [address] ALT [Catalytic activity/Vol] 79 U/L High 10-49 [facility] Comment on above: Performed By: #### V ITB1, ZINC #### [facility] [address] [place] [address] #### B12, FOL, CMP, PREALB, ANDREZ, CBCD #### [facility] [address] [place] [address] AST [Catalytic activity/Vol] 31 U/L Normal 0-34 [facility] Comment on above: Performed By: #### V ITB1, ZINC #### [facility] [address] [place] [address] #### B12, FOL, CMP, PREALB, ANDREZ, CBCD #### [facility] [address] [place] [address] Bilirubin [Mass/Vol] 0.4 mg/dL Normal 0.3-1.2 [facility] Comment on above: Performed By: #### V ITB1, ZINC #### [facility] [address] [place] [address] #### B12, FOL, CMP, PREALB, ANDREZ, CBCD #### [facility] [address] [place] [address] CALCIUM,TOTAL 9.1 md/dL Normal 8.7-10.4 [facility] Comment on above: Performed By: #### V ITB1, ZINC #### [facility] [address] [place] [address] #### B12, FOL, CMP, PREALB, ANDREZ, CBCD #### [facility] [address] [place] [address] Chloride [Moles/Vol] 109 mmol/L High 98-107 [facility] Comment on above: Performed By: #### V ITB1, ZINC #### [facility] [address] [place] [address] #### B12, FOL, CMP, PREALB, ANDREZ, CBCD #### [facility] [address] [place] [address] CO2 [Moles/Vol] 25 mmol/L Normal 20-31 [place] Comment on above: Performed By: #### V ITB1, ZINC #### [facility] [address] [place] [address] #### B12, FOL, CMP, PREALB, ANDREZ, CBCD #### [facility] [address] [place] [address] Creatinine [Mass/Vol] 0.56 mg/dL Normal 0.55-1.02 [facility] Comment on above: Performed By: #### V ITB1, ZINC #### [facility] [address] [place] [address] #### B12, FOL, CMP, PREALB, ANDREZ, CBCD #### [facility] [address] [place] [address] EST GLOM FILT > 60 Normal [facility] Comment on above: Result Comment: Result [...] #### V ITB1, ZINC #### [facility] [address] [place] [address] #### B12, FOL, CMP, PREALB, ANDREZ, CBCD #### [facility] [address] [place] [address] ESTIMATED GLOM FILT RATE > 60 Normal [facility] Comment on above: Performed By: #### V ITB1, ZINC #### [facility] [address] [place] [address] #### B12, FOL, CMP, PREALB, ANDREZ, CBCD #### [facility] [address] [place] [address] Glucose [Mass/Vol] 103 mg/dL High 65-99 [facility] Comment on above: Performed By: #### V ITB1, ZINC #### [facility] [address] [place] [address] #### B12, FOL, CMP, PREALB, ANDREZ, CBCD #### [facility] [address] [place] [address] Potassium [Moles/Vol] 3.8 mmol/L Normal 3.4-5.1 [facility] Comment on above: Performed By: #### V ITB1, ZINC #### [facility] [address] [place] [address] #### B12, FOL, CMP, PREALB, ANDREZ, CBCD #### [facility] [address] [place] [address] Protein [Mass/Vol] 6.7 g/dL Normal 6.0-8.0 [facility] Comment on above: Performed By: #### V ITB1, ZINC #### [facility] [address] [place] [address] #### B12, FOL, CMP, PREALB, ANDREZ, CBCD #### [facility] [address] [place] [address] Sodium [Moles/Vol] 141 mmol/L Normal 136-145 [facility] Comment on above: Performed By: #### V ITB1, ZINC #### [facility] [address] [place] [address] #### B12, FOL, CMP, PREALB, ANDREZ, CBCD #### [facility] [address] [place] [address] Urea nitrogen [Mass/Vol] 10 mg/dL Normal 9-23 [facility] Comment on above: Performed By: #### V ITB1, ZINC #### [facility] [address] [place] [address] #### B12, FOL, CMP, PREALB, ANDREZ, CBCD #### [facility] [address] [place] [address] [id number] 12-03-2022 ESTIMATED AVERAGE GLUCOSE 94 Normal [facility] Comment on above: Performed By: #### V ITB1, ZINC #### [facility] [address] [place] [address] #### B12, FOL, CMP, PREALB, ANDREZ, CBCD #### [facility] [address] [place] [address]298 HbA1c (Bld) [Mass fraction] 4.9 % Normal 4.8-5.6 [facility] Comment on above: Result Comment: Standarization of method based on National Glycohemoglobin Standardization Program (NGSP). HEMOGLOBIN A1c(%) DEGREE of GLUCOSE CONTROL 5.7-6.4% Prediabetes range >6.4% Diagnosis of Diabetes <7% Glycemic control for adults with Diabetes Performed By: #### V ITB1, ZINC #### [facility] [address] #### B12, FOL, CMP, PREALB, ANDREZ, CBCD #### [facility] [address] [place] [address] INSULINon 12-03-2022 INSULIN 14.2 mU/L Normal 2.6-37.6 [facility] Comment on above: Performed By: #### V ITB1, ZINC #### [facility] [address] [place] [address] #### B12, FOL, CMP, PREALB, ANDREZ, CBCD #### [facility] [address] [place] [address]35 LIPID PANEL CHOLESTEROL/HDLo n 12-03-2022 Cholesterol [Mass/Vol] 113 mg/dL Normal <200 [facility] Comment on above: Performed By: #### V ITB1, ZINC #### [facility] [address] #### B12, FOL, CMP, PREALB, ANDREZ, CBCD #### [facility] [address] [place] [address] Cholesterol in HDL [Mass/Vol] 26 mg/dL Low 40-60 [facility] Comment on above: Performed By: #### V ITB1, ZINC #### [facility] [address] [place] [address] #### B12, FOL, CMP, PREALB, ANDREZ, CBCD #### [facility] [address] [place] [address] Cholesterol in LDL [Mass/Vol] 52 mg/dL Normal 9-159 [facility] Comment on above: Performed By: #### V ITB1, ZINC #### [facility] [address] [place] [address] #### B12, FOL, CMP, PREALB, ANDREZ, CBCD #### [facility] [address] [place] [address]68 Cholesterol.total/Chol esterol in HDL [Mass ratio] 4.3 {ratio} Normal [facility] Comment on above: Performed By: #### V ITB1, ZINC #### [facility] [address] [place] [address] #### B12, FOL, CMP, PREALB, ANDREZ, CBCD #### [facility] [address] [place] [address]246 Triglyceride [Mass/Vol] 176 mg/dL High <150 [facility] Comment on above: Result Comment: TRIGLYCERIDE RISK ASSESSMENT: 150-199 mg/dl BORDERLINE HIGH >200 mg//dl HIGH . Performed By: #### V ITB1, ZINC #### [facility] [address] [place] [address] #### B12, FOL, CMP, PREALB, ANDREZ, CBCD #### [facility] [address] [place] [address]173 VLDL CHOLESTEROL 35 mg/dL Normal 6-40 [facility] Comment on above: Performed By: #### V ITB1, ZINC #### [facility] [address] [place] [address] #### B12, FOL, CMP, PREALB, ANDREZ, CBCD #### [facility] [address] [place] [address] [id number] CBC with DIFFERENTIALon 05-0 9-2023 Basophils (Bld) [#/Vol] 0.0 10*3/uL Normal 0.0-0.1 [facility] Comment on above: Order Comment: FAX R ESULTS TO DR FLORENCE: [phone] Performed By: #### V ITB1, ZINC #### [facility] [address] [place] [address] #### B12, FOL, CMP, PREALB, ANDREZ, CBCD #### [facility] [address] [place] [address] Basophils/100 WBC (Bld) 0.3 % Normal 0.0-1.0 [facility] Comment on above: Order Comment: FAX R ESULTS TO DR FLORENCE: [phone] Performed By: #### V ITB1, ZINC #### [facility] [address] [place] [address] #### B12, FOL, CMP, PREALB, ANDREZ, CBCD #### [facility] [address] [place] [address] 83926 Eosinophils (Bld) [#/Vol] 0.2 10*3/uL Normal 0.0-0.4 [facility] Comment on above: Order Comment: FAX R ESULTS TO DR FLORENCE: [phone] Performed By: #### V ITB1, ZINC #### [facility] [address] [place] [address] #### B12, FOL, CMP, PREALB, ANDREZ, CBCD #### [facility] [address] [place] [address] 00659 Eosinophils/100 WBC (Bld) 3.2 % Normal 1.0-4.0 [facility] Comment on above: Order Comment: FAX R ESULTS TO DR FLORENCE: [phone] Performed By: #### V ITB1, ZINC #### [facility] [address] [place] [address] #### B12, FOL, CMP, PREALB, ANDREZ, CBCD #### [facility] [address] [place] [address] Hematocrit (Bld) [Volume fraction] 43.8 % Normal 37.0-47.0 [facility] Comment on above: Order Comment: FAX R ESULTS TO DR FLORENCE: [phone] Performed By: #### V ITB1, ZINC #### [facility] [address] [place] [address] #### B12, FOL, CMP, PREALB, ANDREZ, CBCD #### [facility] [address] [place] [address] 01097 Hemoglobin (Bld) [Mass/Vol] 14.3 g/dL Normal 12.0-16.0 [facility] Comment on above: Order Comment: FAX R ESULTS TO DR FLORENCE: [phone] Performed By: #### V ITB1, ZINC #### [facility] [address] [place] [address] #### B12, FOL, CMP, PREALB, ANDREZ, CBCD #### [facility] [address] [place] [address] 88040 IG # 0.1 10*3/uL Normal 0.0-0.1 [facility] Comment on above: Order Comment: FAX R ESULTS TO DR FLORENCE: [phone] Performed By: #### V ITB1, ZINC #### [facility] [address] [place] [address] #### B12, FOL, CMP, PREALB, ANDREZ, CBCD #### [facility] [address] [place] [address] 39241 IG % 0.7 % Normal 0.0-1.0 [facility] Comment on above: Order Comment: FAX R ESULTS TO DR FLORENCE: [phone] Performed By: #### V ITB1, ZINC #### [facility] [address] [place] [address] #### B12, FOL, CMP, PREALB, ANDREZ, CBCD #### [facility] [address] [place] [address] 79734 Lymphocytes (Bld) [#/Vol] 3.5 10*3/uL Normal 1.3-4.4 [facility] Comment on above: Order Comment: FAX R ESULTS TO DR FLORENCE: [phone] Performed By: #### V ITB1, ZINC #### [facility] [address] [place] [address] #### B12, FOL, CMP, PREALB, ANDREZ, CBCD #### [facility] [address] [place] [address] 16825 Lymphocytes/100 WBC (Bld) 46.7 % High 27.0-41.0 [facility] Comment on above: Order Comment: FAX R ESULTS TO DR FLORENCE: [phone] Performed By: #### V ITB1, ZINC #### [facility] [address] [place] [address] #### B12, FOL, CMP, PREALB, ANDREZ, CBCD #### [facility] [address] [place] [address] 18377 MCV (RBC) [Entitic vol] 88.1 fL Normal 81.0-99.0 [facility] Comment on above: Order Comment: FAX R ESULTS TO DR FLORENCE: [phone] Performed By: #### V ITB1, ZINC #### [facility] [address] [place] [address] #### B12, FOL, CMP, PREALB, ANDREZ, CBCD #### [facility] [address] [place] [address] 17639 MEAN CORPUSCULAR HGB 28.8 pg Normal 27.0-31.0 [facility] Comment on above: Order Comment: FAX R ESULTS TO DR FLORENCE: [phone] Performed By: #### V ITB1, ZINC #### [facility] [address] [place] [address] #### B12, FOL, CMP, PREALB, ANDREZ, CBCD #### [facility] [address] [place] [address] 81411 MEAN CORPUSCULAR HGB CONC 32.6 g/dl Low 33.0-37.0 [facility] Comment on above: Order Comment: JENNIFER COLIN TO DR FLORENCE: [phone] Performed By: #### V ITB1, ZINC #### [facility] [address] [place] [address] #### B12, FOL, CMP, PREALB, ANDREZ, CBCD #### [facility] [address] [place] [address] Monocytes (Bld) [#/Vol] 0.3 10*3/uL Normal 0.1-1.0 [facility] Comment on above: Order Comment: JENNIFER COLIN TO DR FLORENCE: [phone] Performed By: #### V ITB1, ZINC #### [facility] [address] [place] [address] #### B12, FOL, CMP, PREALB, ANDREZ, CBCD #### [facility] [address] [place] [address] 15675 Monocytes/100 WBC (Bld) 4.3 % Normal 3.0-9.0 [facility] Comment on above: Order Comment: JENNIFER COLIN TO DR FLORENCE: [phone] Performed By: #### V ITB1, ZINC #### [facility] [address] [place] [address] #### B12, FOL, CMP, PREALB, ANDREZ, CBCD #### [facility] [address] [place] [address] 42029 Neutrophils (Bld) [#/Vol] 3.4 10*3/uL Normal 2.3-7.9 [facility] Comment on above: Order Comment: JENNIFER COLIN TO DR FLORENCE: [phone] Performed By: #### V ITB1, ZINC #### [facility] [address] [place] [address] #### B12, FOL, CMP, PREALB, ANDREZ, CBCD #### [facility] [address] [place] [address] 41950 Neutrophils/100 WBC (Bld) 44.8 % Low 47.0-73.0 [facility] Comment on above: Order Comment: FAX R ESULTS TO DR FLORENCE: [phone] Performed By: #### V ITB1, ZINC #### [facility] [address] [place] [address] #### B12, FOL, CMP, PREALB, ANDREZ, CBCD #### [facility] [address] [place] [address] NUCLEATED RED BLOOD CELL 0.0 10*3/uL Normal 0.0-0.0 [facility] Comment on above: Order Comment: FAX R ESULTS TO DR FLORENCE: [phone] Performed By: #### V ITB1, ZINC #### [facility] [address] [place] [address] #### B12, FOL, CMP, PREALB, ANDREZ, CBCD #### [facility] [address] [place] [address] 29739 NUCLEATED RED BLOOD CELL 0.0 % Normal 0.0-0.0 [facility] Comment on above: Order Comment: FAX R ESULTS TO DR FLORENCE: [phone] Performed By: #### V ITB1, ZINC #### [facility] [address] [place] [address] #### B12, FOL, CMP, PREALB, ANDREZ, CBCD #### [facility] [address] [place] [address] 69531 PLATELET COUNT AUTOMATED 347 10*3/uL Normal 130-400 [facility] Comment on above: Order Comment: FAX R ESULTS TO DR FLORENCE: [phone] Performed By: #### V ITB1, ZINC #### [facility] [address] [place] [address] #### B12, FOL, CMP, PREALB, ANDREZ, CBCD #### [facility] [address] [place] [address] 05689 Platelet mean volume (Bld) [Entitic vol] 9.9 fL Normal 9.6-12.3 [facility] Comment on above: Order Comment: FAX R ESULTS TO DR FLORENCE: [phone] Performed By: #### V ITB1, ZINC #### [facility] [address] [place] [address] #### B12, FOL, CMP, PREALB, ANDREZ, CBCD #### [facility] [address] [place] [address] RBC (Bld) [#/Vol] 4.97 10*6/uL Normal 4.10-5.10 [facility] Comment on above: Order Comment: FAX R ESULTS TO DR FLORENCE: [phone] Performed By: #### V ITB1, ZINC #### [facility] [address] [place] [address] #### B12, FOL, CMP, PREALB, ANDREZ, CBCD #### [facility] [address] [place] [address] 39163 RED CELL DISTRI WIDTH 13.2 % Normal 0-14.5 [facility] Comment on above: Order Comment: FAX R ESULTS TO DR FLORENCE: [phone] Performed By: #### V ITB1, ZINC #### [facility] [address] [place] [address] #### B12, FOL, CMP, PREALB, ANDREZ, CBCD #### [facility] [address] [place] [address] 93560 WBC (Bld) [#/Vol] 7.5 10*3/uL Normal 4.8-10.8 [facility] Comment on above: Order Comment: FAX R ESULTS TO DR FLORENCE: [phone] Performed By: #### V ITB1, ZINC #### [facility] [address] [place] [address] #### B12, FOL, CMP, PREALB, ANDREZ, CBCD #### [facility] [address] [place] [address] 35798 COMPREHENSIVE METABOLIC PANE Evan 11-06-2022 Albumin [Mass/Vol] 4.2 g/dL Normal 3.4-5.0 [facility] Comment on above: Order Comment: FAX R ESULTS TO DR FLORENCE: [phone] Performed By: #### V ITB1, ZINC #### [facility] [address] [place] [address] #### B12, FOL, CMP, PREALB, ANDREZ, CBCD #### [facility] [address] [place] [address] ALP [Catalytic activity/Vol] 59 U/L Normal 46-116 [facility] Comment on above: Order Comment: FAX R ESULTS TO DR FLORENCE: [phone] Performed By: #### V ITB1, ZINC #### [facility] [address] [place] [address] #### B12, FOL, CMP, PREALB, ANDREZ, CBCD #### [facility] [address] [place] [address] ALT [Catalytic activity/Vol] 30 U/L Normal 10-49 [facility] Comment on above: Order Comment: FAX R ESULTS TO DR FLORENCE: [phone] Performed By: #### V ITB1, ZINC #### [facility] [address] [place] [address] #### B12, FOL, CMP, PREALB, ANDREZ, CBCD #### [facility] [address] [place] [address] 61383 AST [Catalytic activity/Vol] 20 U/L Normal 0-34 [facility] Comment on above: Order Comment: FAX R ESULTS TO DR FLORENCE: [phone] Performed By: #### V ITB1, ZINC #### [facility] [address] [place] [address] #### B12, FOL, CMP, PREALB, ANDREZ, CBCD #### [facility] [address] [place] [address] Bilirubin [Mass/Vol] 0.5 mg/dL Normal 0.3-1.2 [facility] Comment on above: Order Comment: FAX R ESULTS TO DR FLORENCE: [phone] Performed By: #### V ITB1, ZINC #### [facility] [address] [place] [address] #### B12, FOL, CMP, PREALB, ANDREZ, CBCD #### [facility] [address] [place] [address] CALCIUM,TOTAL 9.3 md/dL Normal 8.7-10.4 [facility] Comment on above: Order Comment: FAX R ESULTS TO DR FLORENCE: [phone] Performed By: #### V ITB1, ZINC #### [facility] [address] [place] [address] #### B12, FOL, CMP, PREALB, ANDREZ, CBCD #### [facility] [address] [place] [address] Chloride [Moles/Vol] 103 mmol/L Normal 98-107 [facility] Comment on above: Order Comment: FAX R ESULTS TO DR FLORENCE: [phone] Performed By: #### V ITB1, ZINC #### [facility] [address] [place] [address] #### B12, FOL, CMP, PREALB, ANDREZ, CBCD #### [facility] [address] [place] [address] CO2 [Moles/Vol] 23 mmol/L Normal 20-31 [place] Comment on above: Order Comment: FAX R ESULTS TO DR FLORENCE: [phone] Performed By: #### V ITB1, ZINC #### [facility] [address] [place] [address] #### B12, FOL, CMP, PREALB, ANDREZ, CBCD #### [facility] [address] [place] [address] Creatinine [Mass/Vol] 0.58 mg/dL Normal 0.55-1.02 [facility] Comment on above: Order Comment: FAX R ESULTS TO DR FLORENCE: [phone] Performed By: #### V ITB1, ZINC #### [facility] [address] [place] [address] #### B12, FOL, CMP, PREALB, ANDREZ, CBCD #### [facility] [address] [place] [address] EST GLOM FILT > 60 Normal [facility] Comment on above: Order Comment: FAX R ESULTS TO DR FLORENCE: [phone] Result Comment: Result Units: mL/min/1.73 m2 Note: [...] #### V ITB1, ZINC #### [facility] [address] [place] [address] #### B12, FOL, CMP, PREALB, ANDREZ, CBCD #### [facility] [address] [place] [address] ESTIMATED GLOM FILT RATE > 60 Normal [facility] Comment on above: Order Comment: FAX R ESULTS TO DR FLORENCE: [phone] Performed By: #### V ITB1, ZINC #### [facility] [address] [place] [address] #### B12, FOL, CMP, PREALB, ANDREZ, CBCD #### [facility] [address] [place] [address] Glucose [Mass/Vol] 92 mg/dL Normal 65-99 [facility] Comment on above: Order Comment: FAX R ESULTS TO DR FLORENCE: [phone] Performed By: #### V ITB1, ZINC #### [facility] [address] [place] [address] #### B12, FOL, CMP, PREALB, ANDREZ, CBCD #### [facility] [address] [place] [address] Potassium [Moles/Vol] 3.9 mmol/L Normal 3.4-5.1 [facility] Comment on above: Order Comment: FAX R ESULTS TO DR FLORENCE: Performed By: #### V ITB1, ZINC #### [facility] [address] [place] [address] #### B12, FOL, CMP, PREALB, ANDREZ, CBCD #### [facility] [address] [place] [address] 12478 Protein [Mass/Vol] 7.3 g/dL Normal 6.0-8.0 [facility] Comment on above: Order Comment: FAX R ESULTS TO DR FLORENCE: Performed By: #### V ITB1, ZINC #### [facility] [address] [place] [address] #### B12, FOL, CMP, PREALB, ANDREZ, CBCD #### [facility] [address] [place] [address] 14646 Sodium [Moles/Vol] 137 mmol/L Normal 136-145 [facility] Comment on above: Order Comment: FAX R ESULTS TO DR FLORENCE: Performed By: #### V ITB1, ZINC #### [facility] [address] [place] [address] #### B12, FOL, CMP, PREALB, ANDREZ, CBCD #### [facility] [address] [place] [address] 38857 Urea nitrogen [Mass/Vol] 12 mg/dL Normal 9-23 [facility] Comment on above: Order Comment: FAX R ESULTS TO DR FLORENCE: Performed By: #### V ITB1, ZINC #### [facility] [address] [place] [address] #### B12, FOL, CMP, PREALB, ANDREZ, CBCD #### [facility] [address] [place] [address] 04756 Basic Metabolic Panelon 05-0 Anion gap [Moles/Vol] 11 mmol/L Normal 7-16 [facility] Calcium [Mass/Vol] 8.9 mg/dL Normal 8.6-10.2 [facility] Chloride [Moles/Vol] 104 mmol/L Normal 98-107 [facility] CO2 [Moles/Vol] 25 mmol/L Normal 22-29 [facility] Creatinine [Mass/Vol] 0.6 mg/dL Normal 0.5-1.0 [facility] GFR Calculated >60 Normal >=60 [facility] Comment on above: Result Comment: Caridad atric calculator link https://www.kidney.org/professionals/kdoqi/gfr_calculatorped Effective Apr 02, [...] secretion. Glucose [Mass/Vol] 117 mg/dL High 74-99 [facility] Potassium [Moles/Vol] 4.3 mmol/L Normal 3.5-5.0 [facility] Sodium [Moles/Vol] 140 mmol/L Normal 132-146 [facility] Urea nitrogen [Mass/Vol] 13 mg/dL Normal 6-20 [facility] Basic metabolic 2000 panelon 10-30-2022 Anion gap [Moles/Vol] 11 mmol/L 7 - 16 mmol/L [facility] Calcium [Mass/Vol] 8.9 mg/dL 8.6 - 10. 2 mg/dL [facility] Chloride [Moles/Vol] 104 mmol/L 98 - 10 7 mmol/L [facility] CO2 [Moles/Vol] 25 mmol/L 22 - 29 mmol/L [facility] Creatinine [Mass/Vol] 0.6 mg/dL 0.5 - 1.0 mg/dL [facility] GFR/1.73 sq M.predicted among non-blacks MDRD (S/P/Bld) [Vol rate/Area] mL/min/1.73 60 - PINF mL/min/1.73 [facility] Comment on above: Pediatric calculator link https://www.kidney.org/professionals/kdoqi/gfr_calculatorped [...] mg/dL High 74 - 99 mg/dL [facility] Potassium [Moles/Vol] 4.3 mmol/L 3.5 - 5.0 mmol/L [facility] Sodium [Moles/Vol] 140 mmol/L 132 - 146 mmol/L [facility] Urea nitrogen [Mass/Vol] 13 mg/dL 6 - 20 mg/dL [facility] CBC With Platelet and Differ entialon 10-30-2022 Abs Imm Granulocytes 0.07 E9/L Normal [facility] Absolute Basophils 0.01 E9/L Normal 0.00-0.20 [facility] Absolute Eosinophils 0.00 E9/L Low 0.05-0.50 [facility] Absolute Lymphocytes 1.89 E9/L Normal 1.50-4.00 [facility] Absolute Monocytes 0.73 E9/L Normal 0.10-0.95 [facility] Absolute Neutrophils 9.02 E9/L High 1.80-7.30 [facility] Basophils/100 WBC (Bld) 0.1 % Normal 0.0-2.0 [facility] Eosinophils/100 WBC (Bld) 0.0 % Normal 0.0-6.0 [facility] Hematocrit (Bld) [Volume fraction] 38.2 % Normal 34.0-48.0 [facility] Hemoglobin (Bld) [Mass/Vol] 12.2 g/dL Normal 11.5-15.5 [facility] Imm Granulocytes 0.6 % Normal 0.0-5.0 [facility] Lymphocytes/100 WBC (Bld) 16.1 % Low 20.0-42.0 [facility] MCH (RBC) [Entitic mass] 29.2 pg Normal 26.0-35.0 [facility] MCHC 31.9 % Low 32.0-34.5 [facility] MCV (RBC) [Entitic vol] 91.4 fL Normal 80.0-99.9 [facility] Monocytes/100 WBC (Bld) 6.2 % Normal 2.0-12.0 [facility] Neutrophils/100 WBC (Bld) 77.0 % Normal 43.0-80.0 [facility] Platelet Count 285 E9/L Normal 130-450 [facility] Platelet mean volume (Bld) [Entitic vol] 10.4 fL Normal 7.0-12.0 [facility] RBC 4.18 E12/L Normal 3.50-5.50 [facility] RDW 13.2 fL Normal 11.5-15.0 [facility] WBC 11.7 E9/L High 4.5-11.5 [facility] CBC with Auto Differentialon 10-30-2022 Basophils (Bld) [#/Vol] 0.01 10*3/uL [facility] Basophils/100 WBC (Bld) 0.1 % 0.0 - 2.0 % [facility] Eosinophils (Bld) [#/Vol] 0.00 10*3/uL Low [facility] Eosinophils/100 WBC (Bld) 0 % 0.0 - 6.0 % [facility] Erythrocyte distribution width (RBC) [Ratio] 13.2 fL 11.5 - 15.0 fL [facility] Hematocrit (Bld) [Volume fraction] 38.2 % 34.0 - 48.0 % [facility] Hemoglobin (Bld) [Mass/Vol] 12.2 g/dL 11.5 - 15.5 g/dL [facility] Immature granulocytes (Bld) [#/Vol] 0.07 10*3/uL E9/L [facility] Immature granulocytes/100 WBC (Bld) 0.6 % 0.0 - 5.0 % [facility] Interpretation and review of laboratory results Abnormal [facility] Lymphocytes (Bld) [#/Vol] 1.89 10*3/uL [facility] Lymphocytes/100 WBC (Bld) 16.1 % Low 20.0 - 42.0 % [facility] MCH (RBC) [Entitic mass] 29.2 pg 26.0 - 35.0 pg [facility] MCHC (RBC) [Mass/Vol] 31.9 % Low 32.0 - 34.5 % [facility] MCV (RBC) [Entitic vol] 91.4 fL 80.0 - 99.9 fL [facility] Monocytes (Bld) [#/Vol] 0.73 10*3/uL [facility] Monocytes/100 WBC (Bld) 6.2 % 2.0 - 12.0 % [facility] Neutrophils (Bld) [#/Vol] 9.02 10*3/uL High [facility] Platelet mean volume (Bld) [Entitic vol] 10.4 fL 7.0 - 12.0 fL [facility] Platelets (Bld) [#/Vol] 285 10*3/uL [facility] RBC (Bld) [#/Vol] 4.18 10*6/uL [facility] Segmented neutrophils/100 WBC (Bld) 77.0 % 43.0 - 80.0 % [facility] WBC (Bld) [#/Vol] 11.7 10*3/uL High [facility] Hepatic Function Panelon Albumin [Mass/Vol] 3.7 g/dL 3.5 - 5.2 g/dL [facility] ALP [Catalytic activity/Vol] 55 U/L 35 - 104 U/L [facility] ALT [Catalytic activity/Vol] 19 U/L 0 - 32 U/L [facility] AST [Catalytic activity/Vol] 14 U/L 0 - 31 U/L [facility] Bilirubin [Mass/Vol] 0.5 mg/dL 0.0 - 1 .2 mg/dL [facility] Bilirubin.direct [Mass/Vol] mg/dL 0.0 - 0.3 mg/dL [facility] Bilirubin.indirect [Mass/Vol] see below 0.0 - 1.0 mg/dL [facility] Comment on above: Indirect Bilirubin c annot be calculated since Total Bilirubin and/or Direct Bilirubin is below measurable range. Protein [Mass/Vol] 6.3 g/dL Low 6.4 - 8.3 g/dL [facility] Hgb A1Con 10-30-2022 HbA1c (Bld) [Mass fraction] 4.8 % Normal 4.0-5.6 [facility] Lipid Panelon 10-30-2022 Cholesterol [Mass/Vol] 99 mg/dL Normal 0-199 [facility] Cholesterol in HDL [Mass/Vol] 34 mg/dL Normal >40 [facility] Cholesterol in LDL [Mass/Vol] 43 mg/dL Normal 0-99 [facility] Triglyceride [Mass/Vol] 108 mg/dL Normal 0-149 [facility] VLDL Cholesterol (Calculated) 22 mg/dL Normal [facility] Cholesterol [Mass/Vol] 99 mg/dL 0 - 1 99 mg/dL [facility] Cholesterol in HDL [Mass/Vol] 34 mg/dL 40 - PINF mg/dL [facility] Cholesterol in LDL [Mass/Vol] 43 mg/dL 0 - 99 mg/dL [facility] Cholesterol in VLDL [Mass/Vol] 22 mg/dL [facility] Triglyceride [Mass/Vol] 108 mg/dL 0 - 149 mg/dL [facility] Liver Panelon 10-30-2022 Albumin [Mass/Vol] 3.7 g/dL Normal 3.5-5.2 [facility] ALP [Catalytic activity/Vol] 55 U/L Normal 35-104 [facility] ALT [Catalytic activity/Vol] 19 U/L Normal 0-32 [facility] AST [Catalytic activity/Vol] 14 U/L Normal 0-31 [facility] Bilirubin [Mass/Vol] 0.5 mg/dL Normal 0.0-1.2 [facility] Bilirubin Indirect see below Normal 0.0-1.0 [facility] Comment on above: Result Comment: Grace rect Bilirubin cannot be calculated since Total Bilirubin and/or Direct Bilirubin is below measurable range. Bilirubin.indirect [Mass/Vol] mg/dL Normal 0.0-0.3 [facility] Protein [Mass/Vol] 6.3 g/dL Low 6.4-8.3 [facility] METER GLUCOSEon 10-30-2022 Glucose [Mass/Vol] 111 mg/dL High 74-99 [facility] Magnesiumon 10-30-2022 Magnesium [Mass/Vol] 1.7 mg/dL Normal 1.6-2.6 [facility] Magnesium [Mass/Vol] 1.7 mg/dL 1.6 - 2 .6 mg/dL [facility] No Panel Informationon 10-30 Interpretation and review of laboratory results Abnormal [facility] POCT Glucoseon 10-30-2022 Glucose [Mass/Vol] 111 mg/dL High 74 - 99 mg/dL [facility] Interpretation and review of laboratory results Abnormal [facility] Phosphoruson 10-30-2022 Phosphate [Mass/Vol] 4.0 mg/dL Normal 2.5-4.5 [facility] Phosphate [Mass/Vol] 4.0 mg/dL 2.5 - 4 .5 mg/dL [facility] T4, Freeon 10-30-2022 Free T4 [Mass/Vol] 1.32 ng/dL 0.93 - 1. 70 ng/dL [facility] TSHon 10-30-2022 TSH [Mass/Vol] 0.828 [facility] TSH w/out Reflexon TSH w/out Reflex 0.828 uIU/mL Normal 0.270-4.200 [facility] Thyroxine Freeon 10-30-2022 Thyroxine Free 1.32 ng/dL Normal 0.93-1.70 [facility] Comprehensive Metabolic Pane evan 10-29-2022 Potassium see note Critically abnormal 3.5-5.0 [facility] Comment on above: Result Comment: Lisa cui order. Made no charge to patient for testing Corrected result; previously reported as 4.3 on 10/24/2022 at 19:57 by JESUS Hemoglobin A1con 10-29-2022 HbA1c (Bld) [Mass fraction] 5.1 % 4.0 - 5.6 % [address] [facility] Hgb A1Con 10-29-2022 HbA1c (Bld) [Mass fraction] 5.1 % Normal 4.0-5.6 [facility] METER GLUCOSEon 10-29-2022 Glucose [Mass/Vol] 128 mg/dL High 74-99 [facility] Glucose [Mass/Vol] 146 mg/dL High 74-99 [facility] Glucose [Mass/Vol] 104 mg/dL High 74-99 [facility] Glucose [Mass/Vol] 101 mg/dL High 74-99 [facility] No Panel Informationon 10-[address] POC Urine Qualon 0 10-29-2022 Beta HCG ( test) Ql (U) Negative Negative [address] Work Phone: Beta HCG ( test) Ql (U) [id number] [address] Work Phone: Negative QC Pass/Fail Pass [address] Work Phone: Positive QC Pass/Fail Pass [address] Work Phone: POCT Glucoseon 10-29-2022 Glucose [Mass/Vol] 128 mg/dL High 74 - 99 mg/dL [address] Interpretation and review of laboratory results Abnormal [facility] Glucose [Mass/Vol] 146 mg/dL High 74 - 99 mg/dL [address] Interpretation and review of laboratory results Abnormal [address] Glucose [Mass/Vol] 104 mg/dL High 74 - 99 mg/dL [address] Interpretation and review of laboratory results Abnormal [facility] Glucose [Mass/Vol] 101 mg/dL High 74 - 99 mg/dL [address] Interpretation and review of laboratory results Abnormal [facility] Surgical Specimenon 10-30-19 Surgical Specimen [place] [id number] [place] [address] FINAL SURGICAL PATHOLOGY REPORT NAME: BATOOL KINGSLEY Date of 10/29/2022 Collection: Medical Record [id number] Date of 10/29/2022 Number: Receipt: Age: 22 Y Sex: F Date 10/31/2022 12:02 Reported: Date Of : 2000 Financial [id number] Admitting DERIC FLORENCE Number: Physician: Patient DIS [id number] Ordering DERIC FLORENCE Location: Physician: Accession Number: [...] hanson haq mucosal lined fibrous tissue, sales solutions representative or portions of small bowel which measures 4.1 x 2.5 x 1.7 cm. Much of the exterior is covered by hanson haq, soft to finely folded mucosa. Numerous, small metallic surgical [place] are present throughout the exterior. Discrete mucosal lesions are not present. Sectioning is unremarkable. Insurance Verification Specialist sections are submitted. Block label A1. (JORGE L:TAURUS) CODES: [id number]; Department of Pathology Page 1 of 1 Normal [facility] CBC (Hemogram)on 10-24-2022 Erythrocyte distribution width (RBC) [Ratio] 13.7 fL 11.5 - 15.0 fL [facility] Hematocrit (Bld) [Volume fraction] 43.9 % 34.0 - 48.0 % [facility] Hemoglobin (Bld) [Mass/Vol] 14.3 g/dL 11.5 - 15.5 g/dL [facility] MCH (RBC) [Entitic mass] 28.9 pg 26.0 - 35.0 pg [facility] MCHC (RBC) [Mass/Vol] 32.6 % 32.0 - 34.5 % [facility] MCV (RBC) [Entitic vol] 88.9 fL 80.0 - 99.9 fL [facility] Platelet mean volume (Bld) [Entitic vol] 10.6 fL 7.0 - 12.0 fL [facility] Platelets (Bld) [#/Vol] 321 10*3/uL [facility] RBC (Bld) [#/Vol] 4.94 10*6/uL [facility] S [facility] WBC (Bld) [#/Vol] 7.0 10*3/uL [facility] SE [facility] CBC With Platelet No Differe ntialon 10-24-2022 Hematocrit (Bld) [Volume fraction] 43.9 % Normal 34.0-48.0 [facility] Hemoglobin (Bld) [Mass/Vol] 14.3 g/dL Normal 11.5-15.5 [facility] MCH (RBC) [Entitic mass] 28.9 pg Normal 26.0-35.0 [facility] MCHC 32.6 % Normal 32.0-34.5 [facility] MCV (RBC) [Entitic vol] 88.9 fL Normal 80.0-99.9 [facility] Platelet Count 321 E9/L Normal 130-450 [facility] Platelet mean volume (Bld) [Entitic vol] 10.6 fL Normal 7.0-12.0 [facility] RBC 4.94 E12/L Normal 3.50-5.50 [facility] RDW 13.7 fL Normal 11.5-15.0 [facility] WBC 7.0 E9/L Normal 4.5-11.5 [facility] Comprehensive Metabolic Pane l reflex Mgon 10-24-2022 Albumin [Mass/Vol] 4.6 g/dL Normal 3.5-5.2 [facility] ALP [Catalytic activity/Vol] 69 U/L Normal 35-104 [facility] ALT [Catalytic activity/Vol] 27 U/L Normal 0-32 [facility] Anion gap [Moles/Vol] 12 mmol/L Normal 7-16 [facility] AST [Catalytic activity/Vol] 16 U/L Normal 0-31 [facility] Bilirubin [Mass/Vol] 0.4 mg/dL Normal 0.0-1.2 [facility] Calcium [Mass/Vol] 9.3 mg/dL Normal 8.6-10.2 [facility] Chloride [Moles/Vol] 104 mmol/L Normal 98-107 [facility] CO2 [Moles/Vol] 24 mmol/L Normal 22-29 [facility] Creatinine [Mass/Vol] 0.6 mg/dL Normal 0.5-1.0 [facility] GFR Calculated >60 Normal >=60 [facility] Comment on above: Result Comment: Dion [...] secretion. Glucose [Mass/Vol] 79 mg/dL Normal 74-99 [facility] Magnesium [Moles/Vol] 4.3 mmol/L Normal 3.5-5.0 [facility] Protein [Mass/Vol] 7.6 g/dL Normal 6.4-8.3 [facility] Sodium [Moles/Vol] 140 mmol/L Normal 132-146 [facility] Urea nitrogen [Mass/Vol] 13 mg/dL Normal 6-20 [facility] Comprehensive metabolic 2000 panelon 10-24-2022 Potassium [Moles/Vol] 4.3 mmol/L 3.5 - 5.0 mmol/L [facility] Albumin [Mass/Vol] 4.6 g/dL 3.5 - 5.2 g/dL [facility] ALP [Catalytic activity/Vol] 69 U/L 35 - 104 U/L [facility] ALT [Catalytic activity/Vol] 27 U/L 0 - 32 U/L [facility] Anion gap [Moles/Vol] 12 mmol/L 7 - 16 mmol/L [facility] AST [Catalytic activity/Vol] 16 U/L 0 - 31 U/L [facility] Bilirubin [Mass/Vol] 0.4 mg/dL 0.0 - 1 .2 mg/dL [facility] Calcium [Mass/Vol] 9.3 mg/dL 8.6 - 10. 2 mg/dL [facility] Chloride [Moles/Vol] 104 mmol/L 98 - 10 7 mmol/L [facility] CO2 [Moles/Vol] 24 mmol/L 22 - 29 mmol/L [facility] Creatinine [Mass/Vol] 0.6 mg/dL 0.5 - 1.0 mg/dL [facility] GFR/1.73 sq M.predicted among non-blacks MDRD (S/P/Bld) [Vol rate/Area] mL/min/1.73 60 - PINF mL/min/1.73 [facility] Comment on above: Pediatric calculator link [email or web address].kidney.org/professionals/kdoqi/gfr_calculatorped [...] [Mass/Vol] 79 mg/dL 74 - 99 mg/dL [facility] Potassium [Moles/Vol] 4.3 mmol/L 3.5 - 5.0 mmol/L [facility] Protein [Mass/Vol] 7.6 g/dL 6.4 - 8.3 g/dL [facility] Sodium [Moles/Vol] 140 mmol/L 132 - 146 mmol/L [facility] Urea nitrogen [Mass/Vol] 13 mg/dL 6 - 20 mg/dL [facility] ACT PARTIAL THROMBO TIMEon 0 4- ACT PARTIAL THROMBO TIME 30.4 SECONDS Normal 20.0-32.1 [facility] Comment on above: Result Comment: APTT THERAPEUTIC RANGE = 43.6 TO 68.4 SECONDS Performed By: #### V ITB1, ZINC #### [facility] [address] [place] [address] #### B12, FOL, CMP, PREALB, ANDREZ, CBCD #### [facility] [address] [place] [address] CBC with DIFFERENTIALon Basophils (Bld) [#/Vol] 0.0 10*3/uL Normal 0.0-0.1 [facility] Comment on above: Performed By: #### V ITB1, ZINC #### [facility] [address] #### B12, FOL, CMP, PREALB, ANDREZ, CBCD #### [facility] [address] [place] [address] Basophils/100 WBC (Bld) 0.5 % Normal 0.0-1.0 [facility] Comment on above: Performed By: #### V ITB1, ZINC #### [facility] [address] #### B12, FOL, CMP, PREALB, ANDREZ, CBCD #### [facility] [address] [place] [address]1025 Eosinophils (Bld) [#/Vol] 0.3 10*3/uL Normal 0.0-0.4 [facility] Comment on above: Performed By: #### V ITB1, ZINC #### [facility] [address] [place] [address] #### B12, FOL, CMP, PREALB, ANDREZ, CBCD #### [facility] [address] [place] [address] 19627 Eosinophils/100 WBC (Bld) 4.1 % High 1.0-4.0 [facility] Comment on above: Performed By: #### V ITB1, ZINC #### [facility] [address] [place] [address] #### B12, FOL, CMP, PREALB, ANDREZ, CBCD #### [facility] [address] [place] [address] Hematocrit (Bld) [Volume fraction] 40.6 % Normal 37.0-47.0 [facility] Comment on above: Performed By: #### V ITB1, ZINC #### [facility] [address] [place] [address] #### B12, FOL, CMP, PREALB, ANDREZ, CBCD #### [facility] [address] [place] [address] Hemoglobin (Bld) [Mass/Vol] 13.2 g/dL Normal 12.0-16.0 [facility] Comment on above: Performed By: #### V ITB1, ZINC #### [facility] [address] [place] [address] #### B12, FOL, CMP, PREALB, ANDREZ, CBCD #### [facility] [address] [place] [address] 14075 IG # 0.0 10*3/uL Normal 0.0-0.1 [facility] Comment on above: Performed By: #### V ITB1, ZINC #### [facility] [address] [place] [address] #### B12, FOL, CMP, PREALB, ANDREZ, CBCD #### [facility] [address] [place] [address] 90089 IG % 0.5 % Normal 0.0-1.0 [facility] Comment on above: Performed By: #### V ITB1, ZINC #### [facility] [address] [place] [address] #### B12, FOL, CMP, PREALB, ANDREZ, CBCD #### [facility] [address] [place] [address]678 Lymphocytes (Bld) [#/Vol] 3.2 10*3/uL Normal 1.3-4.4 [facility] Comment on above: Performed By: #### V ITB1, ZINC #### [facility] [address] [place] [address] #### B12, FOL, CMP, PREALB, ANDREZ, CBCD #### [facility] [address] [place] [address]656 Lymphocytes/100 WBC (Bld) 41.8 % High 27.0-41.0 [facility] Comment on above: Performed By: #### V ITB1, ZINC #### [facility] [address] [place] [address] #### B12, FOL, CMP, PREALB, ANDREZ, CBCD #### [facility] [address] [place] [address]15 MCV (RBC) [Entitic vol] 88.6 fL Normal 81.0-99.0 [facility] Comment on above: Performed By: #### V ITB1, ZINC #### [facility] [address] [place] [address] #### B12, FOL, CMP, PREALB, ANDREZ, CBCD #### [facility] [address] [place] [address] MEAN CORPUSCULAR HGB 28.8 pg Normal 27.0-31.0 [facility] Comment on above: Performed By: #### V ITB1, ZINC #### [facility] [address] [place] [address] #### B12, FOL, CMP, PREALB, ANDREZ, CBCD #### [facility] [address] [place] [address] 87450 MEAN CORPUSCULAR HGB CONC 32.5 g/dl Low 33.0-37.0 [facility] Comment on above: Performed By: #### V ITB1, ZINC #### [facility] [address] [place] [address] #### B12, FOL, CMP, PREALB, ANDREZ, CBCD #### [facility] [address] [place] [address] Monocytes (Bld) [#/Vol] 0.4 10*3/uL Normal 0.1-1.0 [facility] Comment on above: Performed By: #### V ITB1, ZINC #### [facility] [address] [place] [address] #### B12, FOL, CMP, PREALB, ANDREZ, CBCD #### [facility] [address] [place] [address] 65063 Monocytes/100 WBC (Bld) 5.1 % Normal 3.0-9.0 [facility] Comment on above: Performed By: #### V ITB1, ZINC #### [facility] [address] [place] [address] #### B12, FOL, CMP, PREALB, ANDREZ, CBCD #### [facility] [address] [place] [address] 41982 Neutrophils (Bld) [#/Vol] 3.7 10*3/uL Normal 2.3-7.9 [facility] Comment on above: Performed By: #### V ITB1, ZINC #### [facility] [address] [place] [address] #### B12, FOL, CMP, PREALB, ANDREZ, CBCD #### [facility] [address] [place] [address] 56999 Neutrophils/100 WBC (Bld) 48.0 % Normal 47.0-73.0 [facility] Comment on above: Performed By: #### V ITB1, ZINC #### [facility] [address] [place] [address] #### B12, FOL, CMP, PREALB, ANDREZ, CBCD #### [facility] [address] [place] [address] 13750 NUCLEATED RED BLOOD CELL 0.0 10*3/uL Normal 0.0-0.0 [facility] Comment on above: Performed By: #### V ITB1, ZINC #### [facility] [address] [place] [address] #### B12, FOL, CMP, PREALB, ANDREZ, CBCD #### [facility] [address] [place] [address] 73622 NUCLEATED RED BLOOD CELL 0.0 % Normal 0.0-0.0 [facility] Comment on above: Performed By: #### V ITB1, ZINC #### [facility] [address] [place] [address] #### B12, FOL, CMP, PREALB, ANDREZ, CBCD #### [facility] [address] [place] [address] 41148 PLATELET COUNT AUTOMATED 300 10*3/uL Normal 130-400 [facility] Comment on above: Performed By: #### V ITB1, ZINC #### [facility] [address] [place] [address] #### B12, FOL, CMP, PREALB, ANDREZ, CBCD #### [facility] [address] [place] [address] 59097 Platelet mean volume (Bld) [Entitic vol] 10.7 fL Normal 9.6-12.3 [facility] Comment on above: Performed By: #### V ITB1, ZINC #### [facility] [address] [place] [address] #### B12, FOL, CMP, PREALB, ANDREZ, CBCD #### [facility] [address] [place] [address] 86104 RBC (Bld) [#/Vol] 4.58 10*6/uL Normal 4.10-5.10 [facility] Comment on above: Performed By: #### V ITB1, ZINC #### [facility] [address] [place] [address] #### B12, FOL, CMP, PREALB, ANDREZ, CBCD #### [facility] [address] [place] [address] 71781 RED CELL DISTRI WIDTH 13.3 % Normal 0-14.5 [facility] Comment on above: Performed By: #### V ITB1, ZINC #### [facility] [address] [place] [address] #### B12, FOL, CMP, PREALB, ANDREZ, CBCD #### [facility] [address] [place] [address] 06231 WBC (Bld) [#/Vol] 7.6 10*3/uL Normal 4.8-10.8 [facility] Comment on above: Performed By: #### V ITB1, ZINC #### [facility] [address] [place] [address] #### B12, FOL, CMP, PREALB, ANDREZ, CBCD #### [facility] [address] [place] [address] COMPREHENSIVE METABOLIC PANE Evan 10-04-2022 Albumin [Mass/Vol] 3.8 g/dL Normal 3.4-5.0 [facility] Comment on above: Performed By: #### V ITB1, ZINC #### [facility] [address] [place] [address] #### B12, FOL, CMP, PREALB, ANDREZ, CBCD #### [facility] [address] [place] [address] 24022 ALP [Catalytic activity/Vol] 63 U/L Normal 46-116 [facility] Comment on above: Performed By: #### V ITB1, ZINC #### [facility] [address] [place] [address] #### B12, FOL, CMP, PREALB, ANDREZ, CBCD #### [facility] [address] [place] [address] 26522 ALT [Catalytic activity/Vol] 18 U/L Normal 10-49 [facility] Comment on above: Performed By: #### V ITB1, ZINC #### [facility] [address] [place] [address] #### B12, FOL, CMP, PREALB, ANDREZ, CBCD #### [facility] [address] [place] [address] [place] [address] AST [Catalytic activity/Vol] 15 U/L Normal 0-34 [facility] Comment on above: Performed By: #### V ITB1, ZINC #### [facility] [address] [place] [address] #### B12, FOL, CMP, PREALB, ANDREZ, CBCD #### [facility] [address] [place] [address] Bilirubin [Mass/Vol] 0.3 mg/dL Normal 0.3-1.2 [facility] Comment on above: Performed By: #### V ITB1, ZINC #### [facility] [address] [place] [address] #### B12, FOL, CMP, PREALB, ANDREZ, CBCD #### [facility] [address] [place] [address] 47024 CALCIUM,TOTAL 9.2 md/dL Normal 8.7-10.4 [facility] Comment on above: Performed By: #### V ITB1, ZINC #### [facility] [address] [place] [address] #### B12, FOL, CMP, PREALB, ANDREZ, CBCD #### [facility] [address] [place] [address] 37907 Chloride [Moles/Vol] 105 mmol/L Normal 98-107 [facility] Comment on above: Performed By: #### V ITB1, ZINC #### [facility] [address] [place] [address] #### B12, FOL, CMP, PREALB, ANDREZ, CBCD #### [facility] [address] [place] [address] 79187 CO2 [Moles/Vol] 27 mmol/L Normal 20-31 [place] Comment on above: Performed By: #### V ITB1, ZINC #### [facility] [address] [place] [address] #### B12, FOL, CMP, PREALB, ANDREZ, CBCD #### [facility] [address] [place] [address] Creatinine [Mass/Vol] 0.61 mg/dL Normal 0.55-1.02 [facility] Comment on above: Performed By: #### V ITB1, ZINC #### [facility] [address] [place] [address] #### B12, FOL, CMP, PREALB, ANDREZ, CBCD #### [facility] [address] [place] [address] EST GLOM FILT > 60 Normal [facility] Comment on above: Result Comment: Result [...] #### V ITB1, ZINC #### [facility] [address] [place] [address] #### B12, FOL, CMP, PREALB, ANDREZ, CBCD #### [facility] [address] [place] [address] ESTIMATED GLOM FILT RATE > 60 Normal [facility] Comment on above: Performed By: #### V ITB1, ZINC #### [facility] [address] [place] [address] #### B12, FOL, CMP, PREALB, ANDREZ, CBCD #### [facility] [address] [place] [address] Glucose [Mass/Vol] 87 mg/dL Normal 65-99 [facility] Comment on above: Performed By: #### V ITB1, ZINC #### [facility] [address] [place] [address] #### B12, FOL, CMP, PREALB, ANDREZ, CBCD #### [facility] [address] [place] [address] Potassium [Moles/Vol] 4.2 mmol/L Normal 3.4-5.1 [facility] Comment on above: Performed By: #### V ITB1, ZINC #### [facility] [address] [place] [address] #### B12, FOL, CMP, PREALB, ANDREZ, CBCD #### [facility] [address] [place] [address] 24199 Protein [Mass/Vol] 6.9 g/dL Normal 6.0-8.0 [facility] Comment on above: Performed By: #### V ITB1, ZINC #### [facility] [address] [place] [address] #### B12, FOL, CMP, PREALB, ANDREZ, CBCD #### [facility] [address] [place] [address] 32744 Sodium [Moles/Vol] 139 mmol/L Normal 136-145 [facility] Comment on above: Performed By: #### V ITB1, ZINC #### [facility] [address] [place] [address] #### B12, FOL, CMP, PREALB, ANDREZ, CBCD #### [facility] [address] [place] [address] 10738 Urea nitrogen [Mass/Vol] 14 mg/dL Normal 9-23 [facility] Comment on above: Performed By: #### V ITB1, ZINC #### [facility] [address] [place] [address] #### B12, FOL, CMP, PREALB, ANDREZ, CBCD #### [facility] [address] [place] [address] 94136 [id number] 10-04-2022 ESTIMATED AVERAGE GLUCOSE 100 Normal [facility] Comment on above: Performed By: #### V ITB1, ZINC #### [facility] [address] [place] [address] #### B12, FOL, CMP, PREALB, ANDREZ, CBCD #### [facility] [address] [place], [place] [address] HbA1c (Bld) [Mass fraction] 5.1 % Normal 4.8-5.6 [facility] Comment on above: Result Comment: Standarization of method based on National Glycohemoglobin Standardization Program (NGSP). HEMOGLOBIN A1c(%) DEGREE of GLUCOSE CONTROL 5.7-6.4% Prediabetes range >6.4% Diagnosis of Diabetes <7% Glycemic control for adults with Diabetes Performed By: #### V ITB1, ZINC #### [facility] [address] [place] [address] #### B12, FOL, CMP, PREALB, ANDREZ, CBCD #### [facility] [address] [place] [address] 72572 LIPID PANEL CHOLESTEROL/HDLo n 10-04-2022 Cholesterol [Mass/Vol] 122 mg/dL Normal <200 [facility] Comment on above: Performed By: #### V ITB1, ZINC #### [facility] [address] [place] [address] #### B12, FOL, CMP, PREALB, ANDREZ, CBCD #### [facility] [address] [place], [place] [address] Cholesterol in HDL [Mass/Vol] 28 mg/dL Low 40-60 [facility] Comment on above: Performed By: #### V ITB1, ZINC #### [facility] [address] [place] [address] #### B12, FOL, CMP, PREALB, ANDREZ, CBCD #### [facility] [address] [place] [address] Cholesterol in LDL [Mass/Vol] 55 mg/dL Normal 9-159 [facility] Comment on above: Performed By: #### V ITB1, ZINC #### [facility] [address] [place] [address] #### B12, FOL, CMP, PREALB, ANDREZ, CBCD #### [facility] [address] [place] [address] 07176 Cholesterol.total/Chol esterol in HDL [Mass ratio] 4.4 {ratio} Normal [facility] Comment on above: Performed By: #### V ITB1, ZINC #### [facility] [address] [place] [address] #### B12, FOL, CMP, PREALB, ANDREZ, CBCD #### [facility] [address] [place] [address] 12691 Triglyceride [Mass/Vol] 196 mg/dL High <150 [facility] Comment on above: Result Comment: TRIGLYCERIDE RISK ASSESSMENT: 150-199 mg/dl BORDERLINE HIGH >200 mg//dl HIGH . Performed By: #### V ITB1, ZINC #### [facility] [address] [place] [address] #### B12, FOL, CMP, PREALB, ANDREZ, CBCD #### [facility] [address] [place] [address] 05067 VLDL CHOLESTEROL 39 mg/dL Normal 6-40 [facility] Comment on above: Performed By: #### V ITB1, ZINC #### [facility] [address] [place] [address] #### B12, FOL, CMP, PREALB, ANDREZ, CBCD #### [facility] [address] [place] [address] 63541 THROAT CULTUREon 08-15-2022 Throat culture THROAT CULTURE NORMAL ARIN Normal [facility] Comment on above: Performed By: #### V ITB1, ZINC #### [facility] [address] [place] [address] #### B12, FOL, CMP, PREALB, ANDREZ, CBCD #### [facility] [address] [place] [address] NOVL CORONAVIRUS NAAon 08-14 SARS-CoV-2 (COVID-19) RNA SUJATA+probe Ql (Unsp spec) Detected Abnormal Not Detected [facility] Comment on above: Result Comment: Evelyn ents who have a positive COVID-19 test result may now have treatment options. Treatment options are available for patients with mild to moderate symptoms and for hospitalized patients. Visit our website at [email or web address] for resources and information. This nucleic acid amplification test was developed and its performance characteristics determined by [facility]. Nucleic acid amplification tests include RT- PCR [...] #### V ITB1, ZINC #### [facility] [address] [place] [address] #### B12, FOL, CMP, PREALB, ANDREZ, CBCD #### [facility] [address] [place] [address] 36464 CBC with DIFFERENTIALon 02-1 3-2023 Basophils (Bld) [#/Vol] 0.0 10*3/uL Normal 0.0-0.1 [facility] Comment on above: Performed By: #### V ITB1, ZINC #### [facility] [address] [place] [address] #### B12, FOL, CMP, PREALB, ANDREZ, CBCD #### [facility] [address] [place] [address] 35532 Basophils/100 WBC (Bld) 0.5 % Normal 0.0-1.0 [facility] Comment on above: Performed By: #### V ITB1, ZINC #### [facility] [address] [place] [address] #### B12, FOL, CMP, PREALB, ANDREZ, CBCD #### [facility] [address] [place] [address] 87860 Eosinophils (Bld) [#/Vol] 0.2 10*3/uL Normal 0.0-0.4 [facility] Comment on above: Performed By: #### V ITB1, ZINC #### [facility] [address] [place] [address] #### B12, FOL, CMP, PREALB, ANDREZ, CBCD #### [facility] [address] [place] [address] 50303 Eosinophils/100 WBC (Bld) 4.2 % High 1.0-4.0 [facility] Comment on above: Performed By: #### V ITB1, ZINC #### [facility] [address] [place] [address] #### B12, FOL, CMP, PREALB, ANDREZ, CBCD #### [facility] [address] [place] [address] 90969 Hematocrit (Bld) [Volume fraction] 43.8 % Normal 37.0-47.0 [facility] Comment on above: Performed By: #### V ITB1, ZINC #### [facility] [address] [place] [address] #### B12, FOL, CMP, PREALB, ANDREZ, CBCD #### [facility] [address] [place] [address] Hemoglobin (Bld) [Mass/Vol] 14.0 g/dL Normal 12.0-16.0 [facility] Comment on above: Performed By: #### V ITB1, ZINC #### [facility] [address] [place] [address] #### B12, FOL, CMP, PREALB, ANDREZ, CBCD #### [facility] [address] [place] [address] IG # 0.1 10*3/uL Normal 0.0-0.1 [facility] Comment on above: Performed By: #### V ITB1, ZINC #### [facility] [address] [place] [address] #### B12, FOL, CMP, PREALB, ANDREZ, CBCD #### [facility] [address] [place] [address] 90200 IG % 1.1 % High 0.0-1.0 [facility] Comment on above: Performed By: #### V ITB1, ZINC #### [facility] [address] [place] [address] #### B12, FOL, CMP, PREALB, ANDREZ, CBCD #### [facility] [address] [place] [address] 68396 Lymphocytes (Bld) [#/Vol] 2.9 10*3/uL Normal 1.3-4.4 [facility] Comment on above: Performed By: #### V ITB1, ZINC #### [facility] [address] [place] [address] #### B12, FOL, CMP, PREALB, ANDREZ, CBCD #### [facility] [address] [place] [address] 87782 Lymphocytes/100 WBC (Bld) 51.5 % High 27.0-41.0 [facility] Comment on above: Performed By: #### V ITB1, ZINC #### [facility] [address] [place] [address] #### B12, FOL, CMP, PREALB, ANDREZ, CBCD #### [facility] [address] [place] [address] 48017 MCV (RBC) [Entitic vol] 88.8 fL Normal 81.0-99.0 [facility] Comment on above: Performed By: #### V ITB1, ZINC #### [facility] [address] #### B12, FOL, CMP, PREALB, ANDREZ, CBCD #### [facility] [address] [place] [address] 64727 MEAN CORPUSCULAR HGB 28.4 pg Normal 27.0-31.0 [facility] Comment on above: Performed By: #### V ITB1, ZINC #### [facility] [address] #### B12, FOL, CMP, PREALB, ANDREZ, CBCD #### [facility] [address] [place] [address] 97699 MEAN CORPUSCULAR HGB CONC 32.0 g/dl Low 33.0-37.0 [facility] Comment on above: Performed By: #### V ITB1, ZINC #### [facility] [address] [place] [address] #### B12, FOL, CMP, PREALB, ANDREZ, CBCD #### [facility] [address] [place] [address] 90869 Monocytes (Bld) [#/Vol] 0.4 10*3/uL Normal 0.1-1.0 [facility] Comment on above: Performed By: #### V ITB1, ZINC #### [facility] [address] [place] [address] #### B12, FOL, CMP, PREALB, ANDREZ, CBCD #### [facility] [address] [place] [address] 12446 Monocytes/100 WBC (Bld) 7.0 % Normal 3.0-9.0 [facility] Comment on above: Performed By: #### V ITB1, ZINC #### [facility] [address] [place] [address] #### B12, FOL, CMP, PREALB, ANDREZ, CBCD #### [facility] [address] [place] [address] 77945 Neutrophils (Bld) [#/Vol] 2.0 10*3/uL Low 2.3-7.9 [facility] Comment on above: Performed By: #### V ITB1, ZINC #### [facility] [address] [place] [address] #### B12, FOL, CMP, PREALB, ANDREZ, CBCD #### [facility] [address] [place] [address] 41420 Neutrophils/100 WBC (Bld) 35.7 % Low 47.0-73.0 [facility] Comment on above: Performed By: #### V ITB1, ZINC #### [facility] [address] [place] [address] #### B12, FOL, CMP, PREALB, ANDREZ, CBCD #### [facility] [address] [place] [address] 11108 NUCLEATED RED BLOOD CELL 0.0 10*3/uL Normal 0.0-0.0 [facility] Comment on above: Performed By: #### V ITB1, ZINC #### [facility] [address] [place] [address] #### B12, FOL, CMP, PREALB, ANDREZ, CBCD #### [facility] [address] [place] [address] 67267 NUCLEATED RED BLOOD CELL 0.0 % Normal 0.0-0.0 [facility] Comment on above: Performed By: #### V ITB1, ZINC #### [facility] [address] [place] [address] #### B12, FOL, CMP, PREALB, ANDREZ, CBCD #### [facility] [address] [place] [address] PLATELET COUNT AUTOMATED 277 10*3/uL Normal 130-400 [facility] Comment on above: Performed By: #### V ITB1, ZINC #### [facility] [address] [place] [address] #### B12, FOL, CMP, PREALB, ANDREZ, CBCD #### [facility] [address] [place] [address] Platelet mean volume (Bld) [Entitic vol] 10.1 fL Normal 9.6-12.3 [facility] Comment on above: Performed By: #### V ITB1, ZINC #### [facility] [address] [place] [address] #### B12, FOL, CMP, PREALB, ANDREZ, CBCD #### [facility] [address] [place] [address] 37512 RBC (Bld) [#/Vol] 4.93 10*6/uL Normal 4.10-5.10 [facility] Comment on above: Performed By: #### V ITB1, ZINC #### [facility] [address] [place] [address] #### B12, FOL, CMP, PREALB, ANDREZ, CBCD #### [facility] [address] [place] [address] 81532 RED CELL DISTRI WIDTH 13.6 % Normal 0-14.5 [facility] Comment on above: Performed By: #### V ITB1, ZINC #### [facility] [address] [place] [address] #### B12, FOL, CMP, PREALB, ANDREZ, CBCD #### [facility] [address] [place] [address] WBC (Bld) [#/Vol] 5.7 10*3/uL Normal 4.8-10.8 [facility] Comment on above: Performed By: #### V ITB1, ZINC #### [facility] [address] [place] [address] #### B12, FOL, CMP, PREALB, ANDREZ, CBCD #### [facility] [address] [place] [address] CHEST (2 V)on 08-13-2022 CRCXR Name: BATOOL KINGSLEY Phys: KAELA ARELLANO CNP : 2000 Age: 22 Sex: F Acct: [id number] Loc: RAD Exam Date: 08/13/2022 Status: REG CLI Radiology No: [id number] Unit No: [id number] EXAM# TYPE/EXAM RESULT [id number] RAD/CHEST (2 V) SEE REPORT INDICATION: Stuffy [...] CC: Technologist: WIN CHRISTIE Transcribed Date/Time: 08/13/2022 (551) [employer]: [employer] Printed Date/Time: 08/13/2022 (1020) PAGE 1 Signed Report Normal [facility] COMPREHENSIVE METABOLIC PANE Evan 08-13-2022 Albumin [Mass/Vol] 3.7 g/dL Normal 3.4-5.0 [facility] Comment on above: Performed By: #### V ITB1, ZINC #### [facility] [address] [place] [address] #### B12, FOL, CMP, PREALB, ANDREZ, CBCD #### [facility] [address] [place] [address] ALP [Catalytic activity/Vol] 56 U/L Normal 46-116 [facility] Comment on above: Performed By: #### V ITB1, ZINC #### [facility] [address] [place] [address] #### B12, FOL, CMP, PREALB, ANDREZ, CBCD #### [facility] [address] [place] [address] 17965 ALT [Catalytic activity/Vol] 21 U/L Normal 10-49 [facility] Comment on above: Performed By: #### V ITB1, ZINC #### [facility] [address] [place] [address] #### B12, FOL, CMP, PREALB, ANDREZ, CBCD #### [facility] [address] [place] [address] 84294 AST [Catalytic activity/Vol] 23 U/L Normal 0-34 [facility] Comment on above: Performed By: #### V ITB1, ZINC #### [facility] [address] [place] [address] #### B12, FOL, CMP, PREALB, ANDREZ, CBCD #### [facility] [address] [place] [address] 22849 Bilirubin [Mass/Vol] mg/dL Low 0.3-1.2 [facility] Comment on above: Performed By: #### V ITB1, ZINC #### [facility] [address] [place] [address] #### B12, FOL, CMP, PREALB, ANDREZ, CBCD #### [facility] [address] [place] [address] 81730 CALCIUM,TOTAL 9.2 md/dL Normal 8.7-10.4 [facility] Comment on above: Performed By: #### V ITB1, ZINC #### [facility] [address] [place] [address] #### B12, FOL, CMP, PREALB, ANDREZ, CBCD #### [facility] [address] [place] [address] 11157 Chloride [Moles/Vol] 105 mmol/L Normal 98-107 [facility] Comment on above: Performed By: #### V ITB1, ZINC #### [facility] [address] [place] [address] #### B12, FOL, CMP, PREALB, ANDREZ, CBCD #### [facility] [address] [place] [address] CO2 [Moles/Vol] 25 mmol/L Normal 20-31 [place] Comment on above: Performed By: #### V ITB1, ZINC #### [facility] [address] [place] [address] #### B12, FOL, CMP, PREALB, ANDREZ, CBCD #### [facility] [address] [place] [address] 51824 Creatinine [Mass/Vol] 0.53 mg/dL Low 0.55-1.02 [facility] Comment on above: Performed By: #### V ITB1, ZINC #### [facility] [address] [place] [address] #### B12, FOL, CMP, PREALB, ANDREZ, CBCD #### [facility] [address] [place] [address] 94724 EST GLOM FILT > 60 Normal [facility] Comment on above: Result Comment: Result [...] #### V ITB1, ZINC #### [facility] [address] [place] [address] #### B12, FOL, CMP, PREALB, ANDREZ, CBCD #### [facility] [address] [place] [address] ESTIMATED GLOM FILT RATE > 60 Normal [facility] Comment on above: Performed By: #### V ITB1, ZINC #### [facility] [address] [place] [address] #### B12, FOL, CMP, PREALB, ANDREZ, CBCD #### [facility] [address] [place] [address] Glucose [Mass/Vol] 81 mg/dL Normal 65-99 [facility] Comment on above: Performed By: #### V ITB1, ZINC #### [facility] [address] [place] [address] #### B12, FOL, CMP, PREALB, ANDREZ, CBCD #### [facility] [address] [place] [address] 47652 Potassium [Moles/Vol] 4.5 mmol/L Normal 3.4-5.1 [facility] Comment on above: Performed By: #### V ITB1, ZINC #### [facility] [address] [place] [address] #### B12, FOL, CMP, PREALB, ANDREZ, CBCD #### [facility] [address] [place] [address] 72650 Protein [Mass/Vol] 7.0 g/dL Normal 6.0-8.0 [facility] Comment on above: Performed By: #### V ITB1, ZINC #### [facility] [address] [place] [address] #### B12, FOL, CMP, PREALB, ANDREZ, CBCD #### [facility] [address] [place] [address] 20650 Sodium [Moles/Vol] 138 mmol/L Normal 136-145 [facility] Comment on above: Performed By: #### V ITB1, ZINC #### [facility] [address] [place] [address] #### B12, FOL, CMP, PREALB, ANDREZ, CBCD #### [facility] [address] [place] [address] Urea nitrogen [Mass/Vol] 7 mg/dL Low 9- [facility] Comment on above: Performed By: #### V ITB1, ZINC #### [facility] [address] [place] [address] #### B12, FOL, CMP, PREALB, ANDREZ, CBCD #### [facility] [address] [place] [address] ESR (Sed Rate)on 08-13-2022 ESR (Bld) [Velocity] 20 mm/h Normal 0-20 [facility] Comment on above: Performed By: #### V ITB1, ZINC #### [facility] [address] [place] [address] #### B12, FOL, CMP, PREALB, ANDREZ, CBCD #### [facility] [address] [place] [address] 77066 CBC with DIFFERENTIALon 07-03 Basophils (Bld) [#/Vol] 0.1 10*3/uL Normal 0.0-0.1 [facility] Comment on above: Performed By: #### C MP, TSH, LIPPAN, HBA1C, CBCD, INS #### [facility] [address] [place] [address] 57922 Basophils/100 WBC (Bld) 0.7 % Normal 0.0-1.0 [facility] Comment on above: Performed By: #### C MP, TSH, LIPPAN, HBA1C, CBCD, INS #### [facility] [address] [place] [address] 37174 Eosinophils (Bld) [#/Vol] 0.3 10*3/uL Normal 0.0-0.4 [facility] Comment on above: Performed By: #### C MP, TSH, LIPPAN, HBA1C, CBCD, INS #### [facility] [address] [place] [address] 18323 Eosinophils/100 WBC (Bld) 4.3 % High 1.0-4.0 [facility] Comment on above: Performed By: #### C MP, TSH, LIPPAN, HBA1C, CBCD, INS #### [facility] [address] [place] [address] 87225 Hematocrit (Bld) [Volume fraction] 43.7 % Normal 37.0-47.0 [facility] Comment on above: Performed By: #### C MP, TSH, LIPPAN, HBA1C, CBCD, INS #### [facility] [address] [place] [address] 90446 Hemoglobin (Bld) [Mass/Vol] 13.9 g/dL Normal 12.0-16.0 [facility] Comment on above: Performed By: #### C MP, TSH, LIPPAN, HBA1C, CBCD, INS #### [facility] [address] [place] [address] 06677 IG # 0.0 10*3/uL Normal 0.0-0.1 [facility] Comment on above: Performed By: #### C MP, TSH, LIPPAN, HBA1C, CBCD, INS #### [facility] [address] [place] [address] 66736 IG % 0.4 % Normal 0.0-1.0 [facility] Comment on above: Performed By: #### C MP, TSH, LIPPAN, HBA1C, CBCD, INS #### [facility] [address] [place] [address] 65256 Lymphocytes (Bld) [#/Vol] 3.2 10*3/uL Normal 1.3-4.4 [facility] Comment on above: Performed By: #### C MP, TSH, LIPPAN, HBA1C, CBCD, INS #### [facility] [address] [place] [address] 83879 Lymphocytes/100 WBC (Bld) 42.7 % High 27.0-41.0 [facility] Comment on above: Performed By: #### C MP, TSH, LIPPAN, HBA1C, CBCD, INS #### [facility] [address] [place] [address] MCV (RBC) [Entitic vol] 90.3 fL Normal 81.0-99.0 [facility] Comment on above: Performed By: #### C MP, TSH, LIPPAN, HBA1C, CBCD, INS #### [facility] [address] [place] [address] MEAN CORPUSCULAR HGB 28.7 pg Normal 27.0-31.0 [facility] Comment on above: Performed By: #### C MP, TSH, LIPPAN, HBA1C, CBCD, INS #### [facility] [address] [place] [address] MEAN CORPUSCULAR HGB CONC 31.8 g/dl Low 33.0-37.0 [facility] Comment on above: Performed By: #### C MP, TSH, LIPPAN, HBA1C, CBCD, INS #### [facility] [address] [place] [address] Monocytes (Bld) [#/Vol] 0.4 10*3/uL Normal 0.1-1.0 [facility] Comment on above: Performed By: #### C MP, TSH, LIPPAN, HBA1C, CBCD, INS #### [facility] [address] [place] [address] Monocytes/100 WBC (Bld) 5.4 % Normal 3.0-9.0 [facility] Comment on above: Performed By: #### C MP, TSH, LIPPAN, HBA1C, CBCD, INS #### [facility] [address] [place] [address] Neutrophils (Bld) [#/Vol] 3.4 10*3/uL Normal 2.3-7.9 [facility] Comment on above: Performed By: #### C MP, TSH, LIPPAN, HBA1C, CBCD, INS #### [facility] [address] [place] [address] 35354 Neutrophils/100 WBC (Bld) 46.5 % Low 47.0-73.0 [facility] Comment on above: Performed By: #### C MP, TSH, LIPPAN, HBA1C, CBCD, INS #### [facility] [address] [place] [address] 33243 NUCLEATED RED BLOOD CELL 0.0 10*3/uL Normal 0.0-0.0 [facility] Comment on above: Performed By: #### C MP, TSH, LIPPAN, HBA1C, CBCD, INS #### [facility] [address] [place] [address] 49501 NUCLEATED RED BLOOD CELL 0.0 % Normal 0.0-0.0 [facility] Comment on above: Performed By: #### C MP, TSH, LIPPAN, HBA1C, CBCD, INS #### [facility] [address] [place] [address] 81907 PLATELET COUNT AUTOMATED 309 10*3/uL Normal 130-400 [facility] Comment on above: Performed By: #### C MP, TSH, LIPPAN, HBA1C, CBCD, INS #### [facility] [address] [place] [address] 02078 Platelet mean volume (Bld) [Entitic vol] 10.3 fL Normal 9.6-12.3 [facility] Comment on above: Performed By: #### C MP, TSH, LIPPAN, HBA1C, CBCD, INS #### [facility] [address] [place] [address] 46784 RBC (Bld) [#/Vol] 4.84 10*6/uL Normal 4.10-5.10 [facility] Comment on above: Performed By: #### C MP, TSH, LIPPAN, HBA1C, CBCD, INS #### [facility] [address] [place] [address] 37980 RED CELL DISTRI WIDTH 13.5 % Normal 0-14.5 [facility] Comment on above: Performed By: #### C MP, TSH, LIPPAN, HBA1C, CBCD, INS #### [facility] [address] [place] [address] 63524 WBC (Bld) [#/Vol] 7.4 10*3/uL Normal 4.8-10.8 [facility] Comment on above: Performed By: #### C MP, TSH, LIPPAN, HBA1C, CBCD, INS #### [facility] [address] [place] [address] COMPREHENSIVE METABOLIC PANE Evan 07-31-2022 Albumin [Mass/Vol] 3.9 g/dL Normal 3.4-5.0 [facility] Comment on above: Performed By: #### V ITB1, ZINC #### [facility] [address] [place] [address] #### B12, FOL, CMP, PREALB, ANDREZ, CBCD #### [facility] [address] [place] [address] 88645 ALP [Catalytic activity/Vol] 60 U/L Normal 46-116 [facility] Comment on above: Performed By: #### V ITB1, ZINC #### [facility] [address] [place] [address] #### B12, FOL, CMP, PREALB, ANDREZ, CBCD #### [facility] [address] [place] [address] 32553 ALT [Catalytic activity/Vol] 23 U/L Normal 10-49 [facility] Comment on above: Performed By: #### V ITB1, ZINC #### [facility] [address] [place] [address] #### B12, FOL, CMP, PREALB, ANDREZ, CBCD #### [facility] [address] [place] [address] 69506 AST [Catalytic activity/Vol] 17 U/L Normal 0-34 [facility] Comment on above: Performed By: #### V ITB1, ZINC #### [facility] [address] [place] [address] #### B12, FOL, CMP, PREALB, ANDREZ, CBCD #### [facility] [address] [place] [address] Bilirubin [Mass/Vol] 0.3 mg/dL Normal 0.3-1.2 [facility] Comment on above: Performed By: #### V ITB1, ZINC #### [facility] [address] [place] [address] #### B12, FOL, CMP, PREALB, ANDREZ, CBCD #### [facility] [address] [place] [address] 87281 CALCIUM,TOTAL 9.6 md/dL Normal 8.7-10.4 [facility] Comment on above: Performed By: #### V ITB1, ZINC #### [facility] [address] [place] [address] #### B12, FOL, CMP, PREALB, ANDREZ, CBCD #### [facility] [address] [place] [address] 78178 Chloride [Moles/Vol] 102 mmol/L Normal 98-107 [facility] Comment on above: Performed By: #### V ITB1, ZINC #### [facility] [address] [place] [address] #### B12, FOL, CMP, PREALB, ANDREZ, CBCD #### [facility] [address] [place] [address] 21382 CO2 [Moles/Vol] 27 mmol/L Normal 20-31 [place] Comment on above: Performed By: #### V ITB1, ZINC #### [facility] [address] [place] [address] #### B12, FOL, CMP, PREALB, ANDREZ, CBCD #### [facility] [address] [place] [address] Creatinine [Mass/Vol] 0.58 mg/dL Normal 0.55-1.02 [facility] Comment on above: Performed By: #### V ITB1, ZINC #### [facility] [address] [place] [address] #### B12, FOL, CMP, PREALB, ANDREZ, CBCD #### [facility] [address] [place] [address] EST GLOM FILT > 60 Normal [facility] Comment on above: Result Comment: Result [...] #### V ITB1, ZINC #### [facility] [address] [place] [address] #### B12, FOL, CMP, PREALB, ANDREZ, CBCD #### [facility] [address] [place] [address] ESTIMATED GLOM FILT RATE > 60 Normal [facility] Comment on above: Performed By: #### V ITB1, ZINC #### [facility] [address] [place] [address] #### B12, FOL, CMP, PREALB, ANDREZ, CBCD #### [facility] [address] [place] [address] Glucose [Mass/Vol] 73 mg/dL Normal 65-99 [facility] Comment on above: Performed By: #### V ITB1, ZINC #### [facility] [address] [place] [address] #### B12, FOL, CMP, PREALB, ANDREZ, CBCD #### [facility] [address] [place] [address] Potassium [Moles/Vol] 4.2 mmol/L Normal 3.4-5.1 [facility] Comment on above: Performed By: #### V ITB1, ZINC #### [facility] [address] [place] [address] #### B12, FOL, CMP, PREALB, ANDREZ, CBCD #### [facility] [address] [place] [address] Protein [Mass/Vol] 7.2 g/dL Normal 6.0-8.0 [facility] Comment on above: Performed By: #### V ITB1, ZINC #### [facility] [address] [place] [address] #### B12, FOL, CMP, PREALB, ANDREZ, CBCD #### [facility] [address] [place] [address] 45006 Sodium [Moles/Vol] 137 mmol/L Normal 136-145 [facility] Comment on above: Performed By: #### V ITB1, ZINC #### [facility] [address] [place] [address] #### B12, FOL, CMP, PREALB, ANDREZ, CBCD #### [facility] [address] [place] [address] 78258 Urea nitrogen [Mass/Vol] 11 mg/dL Normal 9-23 [facility] Comment on above: Performed By: #### V ITB1, ZINC #### [facility] [address] [place] [address] #### B12, FOL, CMP, PREALB, ANDREZ, CBCD #### [facility] [address] [place] [address] 02726 [id number] 07-31-2022 ESTIMATED AVERAGE GLUCOSE 100 Normal [facility] Comment on above: Performed By: #### V ITB1, ZINC #### [facility] [address] [place] [address] #### B12, FOL, CMP, PREALB, ANDREZ, CBCD #### [facility] [address] [place] [address] HbA1c (Bld) [Mass fraction] 5.1 % Normal 4.8-5.6 [facility] Comment on above: Result Comment: Standarization of method based on National Glycohemoglobin Standardization Program (NGSP). HEMOGLOBIN A1c(%) DEGREE of GLUCOSE CONTROL 5.7-6.4% Prediabetes range >6.4% Diagnosis of Diabetes <7% Glycemic control for adults with Diabetes Performed By: #### V ITB1, ZINC #### [facility] [address] [place] [address] #### B12, FOL, CMP, PREALB, ANDREZ, CBCD #### [facility] [address] [place] [address] 26358 INSULINon 07-31-2022 INSULIN 45.6 mU/L High 2.6-37.6 [facility] Comment on above: Performed By: #### V ITB1, ZINC #### [facility] [address] [place] [address] #### B12, FOL, CMP, PREALB, ANDREZ, CBCD #### [facility] [address] [place] [address] 52875 LIPID PANEL CHOLESTEROL/HDLo n 07-31-2022 Cholesterol [Mass/Vol] 170 mg/dL Normal <200 [facility] Comment on above: Performed By: #### V ITB1, ZINC #### [facility] [address] [place] [address] #### B12, FOL, CMP, PREALB, ANDREZ, CBCD #### [facility] [address] [place] [address] Cholesterol in HDL [Mass/Vol] 31 mg/dL Low 40-60 [facility] Comment on above: Performed By: #### V ITB1, ZINC #### [facility] [address] [place] [address] #### B12, FOL, CMP, PREALB, ANDREZ, CBCD #### [facility] [address] [place] [address] Cholesterol in LDL [Mass/Vol] 73 mg/dL Normal 9-159 [facility] Comment on above: Performed By: #### V ITB1, ZINC #### [facility] [address] [place] [address] #### B12, FOL, CMP, PREALB, ANDREZ, CBCD #### [facility] [address] [place] [address] Cholesterol.total/Chol esterol in HDL [Mass ratio] 5.5 {ratio} Normal [facility] Comment on above: Performed By: #### V ITB1, ZINC #### [facility] [address] [place] [address] #### B12, FOL, CMP, PREALB, ANDREZ, CBCD #### [facility] [address] [place] [address] Triglyceride [Mass/Vol] 328 mg/dL High <150 [facility] Comment on above: Result Comment: TRIGLYCERIDE RISK ASSESSMENT: 150-199 mg/dl BORDERLINE HIGH >200 mg//dl HIGH . Performed By: #### V ITB1, ZINC #### [facility] [address] [place] [address] #### B12, FOL, CMP, PREALB, ANDREZ, CBCD #### [facility] [address] [place] [address] VLDL CHOLESTEROL 66 mg/dL High 6-40 [facility] Comment on above: Performed By: #### V ITB1, ZINC #### [facility] [address] [place] [address] #### B12, FOL, CMP, PREALB, ANDREZ, CBCD #### [facility] [address] [place] [address] THYROID STIM HORMONE (HS)on 07-31-2022 THYROID STIM HORMONE (HS) 2.569 uIU/ml Normal 0.550-4.780 [facility] Comment on above: Performed By: #### V ITB1, ZINC #### [facility] [address] [place] [address] #### B12, FOL, CMP, PREALB, ANDREZ, CBCD #### [facility] [address] [place] [address] NICOTINE METABOLITE, QUANTon 07-19-2022 COTININE <1.0 Normal . [facility] Comment on above: Order Comment: FAX T O [phone] Result Comment: This test was developed and its performance characteristics determined by [employer]. It has not been cleared or approved by the Food and Drug Administration. Cotinine levels greater than 20.0 are consistent with the use of tobacco or tobacco cessation products. Performed at: [facility] [address] [id number] Beveller Operator: Estuardo Michelle MD, Phone: [phone] Performed By: #### N ICOTINE #### [facility] [address] [place] [address] NICOTINE <1.0 Normal . [facility] Comment on above: Order Comment: FAX T O [phone] Result Comment: This test was developed and its performance characteristics determined by [facility]. It has not been cleared or approved by the Food and Drug Administration. Nicotine levels greater than 2.0 are consistent with the use of tobacco or tobacco cessation products. 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 It has not been cleared or approved by the [place] Food and Drug Administration. This test was performed in a CLIA certified laboratory and is intended for clinical purposes. Performed By: [facility] [address] [place] [address] Sign Writer Letterer Or Painter: Francisco Javier Zhang MD, PhD Performed By: #### 8 0388 ####[facility] Reference [address] [place] [address] Zinc, Serumon 05-07-2022 Zinc, Serum 75.6 ug/dL Normal 60.0-120.0 [facility] Comment on above: Result Comment: INTE [...] developed and its performance characteristics determined by [employer]. It has not been cleared or approved by the US Food and Drug Administration. This test was performed in a CLIA certified laboratory and is intended for clinical purposes. Performed By: [facility] [address] [place] [address] Sign Writer Letterer Or Painter: Francisco Javier Zhang MD, PhD Performed By: #### 2 0097 #### [facility] Lab [address] [place] [address] Blood glucose - POCTon 05-04 Glucose [Mass/Vol] 96 mg/dL [facility] Work Phone: QC OK? [facility] Work Phone: CBCon 05-04-2022 Hematocrit (Bld) [Volume fraction] 40.4 % 34.0 - 48.0 % [facility] Hemoglobin (Bld) [Mass/Vol] 13.2 g/dL 11.5 - 15.5 g/dL [facility] MCH (RBC) [Entitic mass] 29.9 pg 26.0 - 35.0 pg [facility] MCHC (RBC) [Mass/Vol] 32.7 % 32.0 - 34.5 % [facility] MCV (RBC) [Entitic vol] 91.6 fL 80.0 - 99.9 fL [facility] Platelet distribution width (Bld) [Ratio] 13.0 fL 11.5 - 15.0 fL [facility] Platelet mean volume (Bld) [Entitic vol] 9.8 fL 7.0 - 12.0 fL [facility] Platelets (Bld) [#/Vol] 313 10*3/uL [facility] RBC (Bld) [#/Vol] 4.41 10*6/uL [facility] WBC (Bld) [#/Vol] 9.2 10*3/uL [facility] CBC With Platelet No Differe ntialon 05-04-2022 Hematocrit (Bld) [Volume fraction] 40.4 % Normal 34.0-48.0 [facility] Hemoglobin (Bld) [Mass/Vol] 13.2 g/dL Normal 11.5-15.5 [facility] MCH (RBC) [Entitic mass] 29.9 pg Normal 26.0-35.0 [facility] MCHC 32.7 % Normal 32.0-34.5 [facility] MCV (RBC) [Entitic vol] 91.6 fL Normal 80.0-99.9 [facility] Platelet Count 313 E9/L Normal 130-450 [facility] Platelet mean volume (Bld) [Entitic vol] 9.8 fL Normal 7.0-12.0 [facility] RBC 4.41 E12/L Normal 3.50-5.50 [facility] RDW 13.0 fL Normal 11.5-15.0 [facility] WBC 9.2 E9/L Normal 4.5-11.5 [facility] Cholesterolon 05-04-2022 Cholesterol [Mass/Vol] 162 mg/dL Normal 0-199 [facility] Cholesterol, Totalon 022 Cholesterol [Mass/Vol] 162 mg/dL 0 - 1 99 mg/dL [facility] Comprehensive Metabolic Pane evan 05-04-2022 Albumin [Mass/Vol] 4.1 g/dL Normal 3.5-5.2 [facility] ALP [Catalytic activity/Vol] 64 U/L Normal 35-104 [facility] ALT [Catalytic activity/Vol] 22 U/L Normal 0-32 [facility] Anion gap [Moles/Vol] 10 mmol/L Normal 7-16 [facility] AST [Catalytic activity/Vol] 13 U/L Normal 0-31 [facility] Bilirubin [Mass/Vol] 0.2 mg/dL Normal 0.0-1.2 [facility] Calcium [Mass/Vol] 8.9 mg/dL Normal 8.6-10.2 [facility] Chloride [Moles/Vol] 102 mmol/L Normal 98-107 [facility] CO2 [Moles/Vol] 25 mmol/L Normal 22-29 [facility] Creatinine [Mass/Vol] 0.7 mg/dL Normal 0.5-1.0 [facility] GFR Calculated >60 Normal >=60 [facility] Comment on above: Result Comment: Dion silvermanzoltan calculator link https://www.kidney.org/professionals/kdoqi/gfr_calculatorped Effective Apr 02, 2022 [...] secretion. Glucose [Mass/Vol] 96 mg/dL Normal 74-99 [facility] Potassium [Moles/Vol] 4.5 mmol/L Normal 3.5-5.0 [facility] Protein [Mass/Vol] 6.9 g/dL Normal 6.4-8.3 [facility] Sodium [Moles/Vol] 137 mmol/L Normal 132-146 [facility] Urea nitrogen [Mass/Vol] 17 mg/dL Normal 6-20 [facility] Albumin [Mass/Vol] 4.1 g/dL 3.5 - 5.2 g/dL [facility] ALP (Bld) [Catalytic activity/Vol] 64 U/L 35 - 104 U/L [facility] ALT [Catalytic activity/Vol] 22 U/L 0 - 32 U/L [facility] Anion gap [Moles/Vol] 10 mmol/L 7 - 16 mmol/L [facility] AST [Catalytic activity/Vol] 13 U/L 0 - 31 U/L [facility] Bilirubin [Mass/Vol] 0.2 mg/dL 0.0 - 1 .2 mg/dL [facility] Calcium [Mass/Vol] 8.9 mg/dL 8.6 - 10. 2 mg/dL [facility] Chloride [Moles/Vol] 102 mmol/L 98 - 10 7 mmol/L [facility] CO2 [Moles/Vol] 25 mmol/L 22 - 29 mmol/L [facility] Creatinine [Mass/Vol] 0.7 mg/dL 0.5 - 1.0 mg/dL [facility] GFR/1.73 sq M.predicted MDRD (S/P/Bld) [Vol rate/Area] mL/min/1.73 60 - PINF mL/min/1.73 [facility] Comment on above: Pediatric calculator link https://www.kidney.org/professionals/kdoqi/gfr_calculatorped [...] 96 mg/dL 74 - 99 mg/dL [facility] Potassium [Moles/Vol] 4.5 mmol/L 3.5 - 5.0 mmol/L [facility] Protein [Mass/Vol] 6.9 g/dL 6.4 - 8.3 g/dL [facility] Sodium [Moles/Vol] 137 mmol/L 132 - 146 mmol/L [facility] Urea nitrogen (BldV) [Mass/Vol] 17 mg/dL 6 - 20 mg/dL [facility] Ferritinon 05-04-2022 Ferritin [Mass/Vol] 69 ng/mL Normal [facility] Comment on above: Result Comment: FERR ITIN Reference Ranges: Adult Males 20 - 60 years: 30 - 400 ng/mL Adult females 17 - 60 years: 13 - 150 ng/mL Adults greater than 60 years: no established reference range Pediatrics: no established reference range Folateon 05-04-2022 Folate 8.5 ng/mL Normal 4.8-24.2 [facility] Hgb A1Con 05-04-2022 HbA1c (Bld) [Mass fraction] 5.7 % High 4.0-5.6 [facility] METER GLUCOSEon 05-04-2022 Glucose [Mass/Vol] 93 mg/dL Normal 74-99 [facility] Glucose [Mass/Vol] 96 mg/dL Normal 74-99 [facility] No Panel Informationon 05-04 [facility] Phone: POC Urine Qualon 1 07-04-2021 Beta HCG ( test) Ql (U) Negative Negative [employer] Phone: Lot Number [id number] [employer] Phone: Negative QC Pass/Fail Pass [employer] Phone: Positive QC Pass/Fail Pass [employer] Phone: [employer] Phone: POCT Glucoseon 05-04-2022 Glucose [Mass/Vol] 93 mg/dL 74 - 99 mg/dL [facility] [employer] [facility] Glucose [Mass/Vol] 96 mg/dL 74 - 99 mg/dL [facility] [employer] Prealbuminon 05-04-2022 Prealbumin [Mass/Vol] 24 mg/dL Normal 20-40 [facility] Surgical Specimenon 05-04-20 Surgical Specimen [place] [address] FINAL SURGICAL PATHOLOGY REPORT NAME: BATOOL KINGSLEY Date of 05/04/2022 Collection: Medical Record [id number] Date of 05/04/2022 Number: Receipt: Age: 22 Y Sex: F Date 05/11/2022 08:29 Reported: Date Of : 2000 Financial [id number] Admitting DERIC FLORENCE Number: Physician: Jeremias ROBBINS Ordering DERIC FLORENCE Location: Physician: Accession [...] submitted. Block label: A1. (JORGE L:YAYA) CODES: [id number]; Department of Pathology Page 1 of 1 Normal [facility] Triglycerideon 05-04-2022 Interpretation and review of laboratory results Abnormal [facility] Triglyceride [Mass/Vol] 274 mg/dL High 0 - 149 mg/dL [facility] Triglycerideson 05-04-2022 Triglyceride [Mass/Vol] 274 mg/dL High 0-149 [facility] Vitamin B12on 05-04-2022 Cobalamin (Vitamin B12) [Mass/Vol] 226 pg/mL Normal 211-946 [facility] US GALLBLADDER RUQon 022 US GALLBLADDER [...] Rohit Dowling MD 05/02/22 Final result Normal [facility] Comment on above: Order Comment: Reaso n for exam:->Indigestion What reading provider will be dictating this exam?->CRC CBC Auto DifferentialOrdered By: Win Narvaez on 03-27-2021 Basophils (Bld) [#/Vol] 0.05 10*3/uL [facility] Work Phone: Basophils/100 WBC (Bld) 0.5 % 0.0 - 2.0 % [employer] Phone: Eosinophils Absolute 0.37 [employer] Phone: Eosinophils/100 WBC (Bld) 3.8 % 0.0 - 6.0 % [employer] Phone: Hematocrit (Bld) [Volume fraction] 39.5 % 34.0 - 48.0 % [employer] Phone: Hemoglobin.gastrointes tinal spec 1 Ql (Stl) 12.6 g/dL 11.5 - 15.5 g/dL [employer] Phone: Immature Granulocytes # 0.18 E9/L [employer] Phone: Immature granulocytes/100 WBC (Bld) 1.8 % 0.0 - 5.0 % [employer] Phone: Interpretation and review of laboratory results Abnormal [employer] Phone: Lymphocytes Absolute 3.73 [employer] Phone: Lymphocytes/100 WBC (Bld) 38.2 % 20.0 - 42.0 % [employer] Phone: MCH (RBC) [Entitic mass] 28.9 pg 26.0 - 35.0 pg [employer] Phone: MCHC (RBC) [Mass/Vol] 31.9 % Low 32.0 - 34.5 % [employer] Phone: MCV (RBC) [Entitic vol] 90.6 fL 80.0 - 99.9 fL [employer] Phone: Monocytes Absolute 0.46 [employer] Phone: Monocytes/100 WBC (Bld) 4.7 % 2.0 - 12.0 % [employer] Phone: Neutrophils Absolute 4.97 [employer] Phone: Neutrophils/100 WBC (Bld) 51.0 % 43.0 - 80.0 % [employer] Phone: Platelet distribution width (Bld) [Ratio] 13.3 fL 11.5 - 15.0 fL [employer] Phone: Platelet mean volume (Bld) [Entitic vol] 9.7 fL 7.0 - 12.0 fL [employer] Phone: Platelets (Bld) [#/Vol] 281 10*3/uL [employer] Phone: RBC (Bld) [#/Vol] 4.36 10*6/uL [employer] Phone: WBC (Bld) [#/Vol] 9.8 10*3/uL [employer] Phone: Comprehensive Metabolic Pane l w/ Reflex to MGOrdered By: iWn Narvaez on 03-27-2021 Albumin [Mass/Vol] 4.2 g/dL 3.5 - 5.2 g/dL [employer] Phone: ALP (Bld) [Catalytic activity/Vol] 64 U/L 35 - 104 U/L [employer] Phone: ALT [Catalytic activity/Vol] 19 U/L 0 - 32 U/L [employer] Phone: Anion gap [Moles/Vol] 12 mmol/L 7 - 16 mmol/L [employer] Phone: AST [Catalytic activity/Vol] 14 U/L 0 - 31 U/L [employer] Phone: Bilirubin [Mass/Vol] mg/dL 0.0 - 1 .2 mg/dL [employer] Phone: Calcium [Mass/Vol] 9.1 mg/dL 8.6 - 10. 2 mg/dL [employer] Phone: Chloride [Moles/Vol] 103 mmol/L 98 - 10 7 mmol/L [employer] Phone: CO2 [Moles/Vol] 22 mmol/L 22 - 29 mmol/L [employer] Phone: Creatinine [Mass/Vol] 0.5 mg/dL 0.5 - 1.0 mg/dL [employer] Phone: Free PSA/Total PSA [Mass fraction] 7.1 g/dL 6.4 - 8.3 g/dL [employer] Phone: GFR >60 [employer] Phone: GFR Non- >60 >=60 mL/min/1.73 [employer] Phone: Comment on above: Chronic Kidney Disea se: less than 60 ml/min/1.73 sq.m. Kidney Failure: less than 15 ml/min/1.73 sq.m. Results valid for patients 18 years and older. Glucose [Mass/Vol] 107 mg/dL High 74 - 99 mg/dL [employer] Phone: Interpretation and review of laboratory results Abnormal [employer] Phone: Potassium [Moles/Vol] 4.2 mmol/L 3.5 - 5.0 mmol/L [employer] Phone: Sodium [Moles/Vol] 137 mmol/L 132 - 146 mmol/L [employer] Phone: Urea nitrogen (BldV) [Mass/Vol] 9 mg/dL 6 - 20 mg/dL [employer] Phone: [employer] Phone: Microscopic UrinalysisOrdere d By: Win Narvaez on 03-27-2021 Bacteria, UA FEW Abnormal None Seen /HPF [employer] Phone: Epithelial Cells, UA FEW /HPF [employer] Phone: Interpretation and review of laboratory results Abnormal [employer] Phone: RBC, UA 2-5 [employer] Phone: WBC, UA 0-1 [employer] Phone: [employer] Phone: No Panel InformationOrdered By: Win Narvaez on 03-27-2021 [employer] Phone: POC Urine QualOrde red By: Win Narvaez on 03-27-2021 Beta HCG ( test) Ql (U) Negative Negative [employer] Phone: Beta HCG ( test) Ql (U) [id number] [employer] Phone: Negative QC Pass/Fail Pass [employer] Phone: Positive QC Pass/Fail Pass [employer] Phone: US PELVIS COMPLETEOrdered By : Tien Oneal on 03-27-2021 The bilateral ovaries are mildly enlarged, right greater than left. Otherwise, unremarkable pelvic ultrasound. [employer] Phone: EXAMINATION: PELVIC ULTRASOUND 03/27/2021 TECHNIQUE: Multiple [...] Free Fluid: No evidence of free fluid. [employer] Phone: [place], Mhy Incoming Radiant Results From [employer] - 03/27/2021 3:01 PM EDT EXAMINATION: PELVIC [...] greater than left. Otherwise, unremarkable pelvic ultrasound. [employer] Phone: [employer] Phone: UrinalysisOrdered By: Win Narvaez on 03-27-2021 Bilirubin Urine Negative Negative [employer] [facility] Work Phone: Blood, Urine LARGE Abnormal Negative [employer] Phone: Clarity, UA Clear Clear [employer] Work Phone: Color, UA Yellow Straw/Yellow [employer] Phone: Glucose, Ur Negative Negative mg/dL [employer] Phone: Interpretation and review of laboratory results Abnormal [employer] Phone: Ketones Ql (U) Negative Negative mg/dL [employer] Phone: Leukocyte esterase Test strip Ql (U) Negative Negative [employer] Work Phone: Nitrite, Urine Negative Negative [employer] [facility] Work Phone: pH, UA 5.0 [employer] Work Phone: Protein, UA TRACE Negative mg/dL [employer] Work Phone: Specific [place], UA >=1.030 [facility] Work Phone: Urobilinogen, Urine 0.2 <2.0 E.U./dL [facility] Work Phone: [facility] Work Phone: NOSE/THROAT CULTUREon 2020 NOSE/THROAT CULTURE RUN DATE: 07/10/20 Laboratory LIVE PAGE 1 RUN TIME: 951 Specimen Inquiry RUN USER: INTERFACE [facility] Department of Laboratories [address] [place] [address] PATIENT: BATOOL KINGSLEY LOC: CALCLINIC U #: [id number] HOME PHONE: AGE/SX: 20/F ROOM: RE07/08/20 [facility] DR: Ameena Corcoran APRN.VOCAL ARTIST : 99 BED: DIS: STATUS: REG REF LAB O/S: Specimen: [id number] Collected: 07/08/20 Status: COMP Req#: [id number] Received: 07/08/20 Source: THROAT Sp Desc: Subm Dr: Ameena Corcoran APRN.CNP Ordered: NOSE/THRT CULT Procedure Result Verified > NOSE/THROAT CULTURE Final 07/10/20 HEAVY GROWTH OF NORMAL ARIN END OF REPORT Normal [facility] Comment on above: Performed By: #### C ULTFRANNY #### [facility] [address] [address] Vital Signs Date Time Vital Sign Value Performing Clinician Facility 05-25-2024 14:30-0500 Body weight 123.74 kg Bryan [employer] Work Phone: [facility] 05-25-2024 14:30-0500 Diastolic blood pressure 70 mm[Hg] Bryan Manisha [employer] Work Phone: [facility] 05-25-2024 14:30-0500 Systolic blood pressure 120 mm[Hg] Bryan Manisha DO Work Phone: [facility] 04-21-2024 15:02-0400 Body weight 118.84 kg Bryan Manisha DO Work Phone: [facility] 04-21-2024 15:02-0400 Diastolic blood pressure 74 mm[Hg] Bryan Manisha DO Work Phone: [facility] 04-21-2024 15:02-0400 Systolic blood pressure 116 mm[Hg] Bryan Manisha DO Work Phone: [facility] 04-07-2024 14:38-0400 Body weight 118.3 kg Kierra HUNT Work Phone: [facility] 04-07-2024 14:38-0400 Diastolic blood pressure 70 mm[Hg] Kierra HUNT Work Phone: [facility] 04-07-2024 14:38-0400 Systolic blood pressure 120 mm[Hg] Kierra HUNT Work Phone: [facility] 10-30-2022 08:56-0400 SaO2% (BldA) [Mass fraction] 97 % Deric Florence MD Work Phone: [facility] 10-30-2022 05:00-0400 Body temperature 97.9 [degF] Deric Florence MD Work Phone: [facility] 10-30-2022 05:00-0400 Diastolic blood pressure 74 mm[Hg] Deric Florence MD Work Phone: [address] 10-30-2022 05:00-0400 Heart rate 74 /min Deric Florence MD Work Phone: [facility] [employer] 10-30-2022 05:00-0400 Respiratory rate 18 /min Deric Florence MD Work Phone: [facility] [employer] 10-30-2022 05:00-0400 Systolic blood pressure 126 mm[Hg] Deric Florence MD Work Phone: [address] 10-29-2022 06:50-0400 Body height 170.2 cm Deric Florenec MD Work Phone: [facility] [employer] 10-29-2022 06:50-0400 Body mass index (BMI) [Ratio] 55.6 kg/m2 Deric Florence MD Work Phone: [facility] [employer] 10-29-2022 06:50-0400 Body weight 161.03 kg Deric Florence MD Work Phone: [facility] [employer] 10-24-2022 12:17-0400 Body height 170.2 cm Sjwz 2 [employer] 10-24-2022 12:17-0400 Body mass index (BMI) [Ratio] 55.44 kg/m2 Sj[facility] [address] 10-24-2022 12:17-0400 Body temperature 98.01 [degF] Sjwz 2 [employer] 10-24-2022 12:17-0400 Body weight 160.57 kg Sjwz 2 [employer] 10-24-2022 12:17-0400 Diastolic blood pressure 62 mm[Hg] Sjwz [address] [facility] [employer] 10-24-2022 12:17-0400 Heart rate 77 /min Sjwz 2 [employer] 10-24-2022 12:17-0400 Respiratory rate 16 /min Sjwz [address] [facility] [employer] 10-24-2022 12:17-0400 SaO2% (BldA) [Mass fraction] 95 % Sj[address] 10-24-2022 12:17-0400 Systolic blood pressure 117 mm[Hg] Sjwz [address] 05-04-2022 08:55-0400 Body temperature 98.29 [degF] Deric Florence MD Work Phone: [address] 05-04-2022 08:55-0400 Diastolic blood pressure 68 mm[Hg] Deric Florence MD Work Phone: [address] 05-04-2022 08:55-0400 Heart rate 83 /min Deric Florence MD Work Phone: [address] 05-04-2022 08:55-0400 Respiratory rate 16 /min Deric Florence MD Work Phone: [address] 05-04-2022 08:55-0400 SaO2% (BldA) [Mass fraction] 92 % Deric Florence MD Work Phone: [address] 05-04-2022 08:55-0400 Systolic blood pressure 128 mm[Hg] Deric Florence MD Work Phone: [address] 05-04-2022 07:06-0400 Body height 170.2 cm Deric Florence MD Work Phone: [address] 05-04-2022 07:06-0400 Body mass index (BMI) [Ratio] 61.21 kg/m2 Deric Florence MD Work Phone: [address] 05-04-2022 07:06-0400 Body weight 177.27 kg Deric Florence MD Work Phone: [address] 03-27-2021 20:08-0400 Heart rate 95 /min Tien Oneal DO Work Phone: [employer] Work Phone: 03-27-2021 13:47-0400 Body height 170.2 cm Tien Oneal DO Work Phone: [employer] Work Phone: 03-27-2021 13:47-0400 Body mass index (BMI) [Ratio] 54.82 kg/m2 Tien Oneal DO Work Phone: [employer] Work Phone: 03-27-2021 13:47-0400 Body temperature 97.11 [degF] Tien Oneal DO Work Phone: [employer] Phone: 03-27-2021 13:47-0400 Body weight 158.76 kg Tien Oneal DO Work Phone: [employer] Work Phone: 03-27-2021 13:47-0400 Diastolic blood pressure 80 mm[Hg] Tine Oneal DO Work Phone: [employer] Work Phone: 03-27-2021 13:47-0400 Respiratory rate 16 /min Tien Oneal DO Work Phone: [employer] Phone: 03-27-2021 13:47-0400 SaO2% (BldA) [Mass fraction] 98 % Tien Oneal [employer] Work Phone: [employer] Phone: 03-27-2021 13:47-0400 Systolic blood pressure 173 mm[Hg] Tien Oneal DO Work Phone: [employer] Phone: Encounters Encounter Date Encounter Type Care Provider Facility Start: 06-16-2024 End: 06-16-2024 Bamboo flowsheet Bryan Manisha DO Work Phone: [facility] Start: 06-16-2024 End: 06-16-2024 Bamboo flowsheet Bryan Manisha DO Work Phone: [facility] Start: 06-10-2024 End: 06-10-2024 Bamboo flowsheet Bryan Manisha DO Work Phone: [facility] Start: 06-10-2024 End: 06-13-2024 Bamboo flowsheet Bryan Manisha DO Work Phone: [facility] Start: 06-10-2024 End: 06-13-2024 Clinisync Result Encounter Bryan Manisah DO Work Phone: [facility] External Department Unsolicited Start: 06-10-2024 End: 06-10-2024 Office outpatient visit 15 minutes Bryan Manisha DO Work Phone: [facility] Comment on above: Third trimester preg agatha; 36 weeks gestation of ; Non-compliant patient, third trimester; History of gastric bypass; Gestational diabetes mellitus (GDM), antepartum, gestational diabetes method of control unspecified Start: 06-10-2024 End: 06-10-2024 ambulatory BRYAN MANISHA Not Available Start: 05-25-2024 End: 05-25-2024 Bamboo flowsheet Bryan Manisha DO Work Phone: [facility] Start: 05-25-2024 End: 05-25-2024 Bamboo flowsheet Bryan Manisha DO Work Phone: [facility] Start: 05-25-2024 End: 05-25-2024 Office outpatient visit 15 minutes Bryan Manisha DO Work Phone: [facility] Comment on above: 34 weeks gestation o f ; Third trimester ; Insomnia, unspecified type; History of gastric bypass; Gestational diabetes mellitus (GDM), antepartum, gestational diabetes method of control unspecified Start: 05-25-2024 End: 05-25-2024 ambulatory BRYAN MANISHA Not Available Start: 05-06-2024 End: 05-06-2024 Office outpatient visit 15 minutes Kierra HUNT Work Phone: [facility] Comment on above: Third trimester preg agatha; 31 weeks gestation of ; Anxiety, generalized (CMS/HCC); Sinusitis, unspecified chronicity, unspecified location Start: 05-06-2024 End: 05-06-2024 ambulatory KIERRA RIVAS Not Available Start: 05-06-2024 End: 05-06-2024 Bamboo flowsheet Kierra HUNT Work Phone: [facility] Start: 05-06-2024 End: 05-06-2024 Bamboo flowsheet Kierra HUNT Work Phone: [facility] Start: 04-21-2024 End: 04-21-2024 Office outpatient visit 15 minutes Bryan Manisha DO Work Phone: [facility] Comment on above: Third trimester preg agatha; 29 weeks gestation of ; Anemia during in third trimester; Elevated glucose tolerance test; Abnormal thyroid stimulating hormone (TSH) level Start: 04-21-2024 End: 04-21-2024 ambulatory BRYAN MANISHA Not Available Start: 04-21-2024 End: 04-21-2024 Bamboo flowsheet Bryan Manisha DO Work Phone: [facility] Start: 04-21-2024 End: 04-21-2024 Bamboo flowsheet Bryan Manisha DO Work Phone: [facility] Start: 04-21-2024 End: 04-21-2024 Clinisync Result Encounter Bryan Manisha DO Work Phone: [facility] External Department Unsolicited Start: 04-07-2024 End: 04-07-2024 Office outpatient visit 15 minutes Kierra HUNT Work Phone: [facility] Comment on above: 27 weeks gestation o f ; Second trimester ; Gestational diabetes mellitus (GDM), antepartum, gestational diabetes method of control unspecified; Anemia affecting in second trimester Start: 04-07-2024 End: 04-07-2024 ambulatory KIERRA RIVAS Not Available Start: 04-07-2024 End: 04-07-2024 Bamboo flowsheet Kierra HUNT Work Phone: [facility] Start: 04-07-2024 End: 04-07-2024 Bamboo flowsheet Kierra HUNT Work Phone: [facility] Start: 03-17-2024 End: 03-17-2024 [facility] Start: 03-09-2024 End: 03-09-2024 ambulatory BRYAN MANISHA Not Available Start: 02-17-2024 End: 02-17-2024 ambulatory BRYAN R MANISHA [facility] Start: 02-10-2024 End: 02-10-2024 ambulatory BRYAN MANISHA Not Available Start: 01-07-2024 End: 01-07-2024 ambulatory BRYAN MANISHA Not Available Start: 12-12-2023 End: 12-12-2023 ambulatory BRYAN MANISHA Not Available Start: 11-10-2023 End: 11-10-2023 Emergency department patient visit NO PCP NO PCP [facility] Start: 08-14-2023 End: 08-14-2023 Emergency department patient visit TRAVIS VALLEJO [facility] Start: 12-14-2022 ambulatory [facility] Facility:[facility] Start: 12-03-2022 ambulatory [facility] Facility:[facility] Start: 11-06-2022 ambulatory [facility] Facility:[facility] Start: 10-29-2022 End: 10-30-2022 Evaluation and management of inpatient [facility] Start: 10-29-2022 End: 10-30-2022 Evaluation and management of inpatient Deric Florence MD Work Phone: [facility] Comment on above: Post-operative state (Primary Dx); Morbid obesity (HCC) Start: 10-24-2022 End: 10-25-2022 ambulatory [facility] Start: 10-24-2022 Encounter for other preprocedural examination [facility] Start: 10-24-2022 End: 10-24-2022 [facility] Start: 10-24-2022 End: 10-24-2022 Subsequent hospital visit by physician Hans Pat Room 2 [facility] PRE ADMIT TESTING Comment on above: Preop testing (Prima ry Dx); Malnutrition following gastrointestinal surgery Start: 10-04-2022 ambulatory [facility] Facility:[facility] Start: 08-13-2022 ambulatory [facility] Facility:[facility] Start: 07-31-2022 ambulatory [facility] Facility:[facility] Start: 07-13-2022 ambulatory [facility] Facility:[facility] Start: 06-14-2022 ambulatory [facility] Facility[facility] Start: 05-04-2022 End: 05-04-2022 ambulatory KAELA ARELLANO [facility] Start: 05-04-2022 End: 05-04-2022 Subsequent hospital visit by physician Deric Florence MD Work Phone: [facility] Comment on above: Morbid obesity due t o excess calories (HCC); Gastroesophageal reflux disease Start: 05-02-2022 End: 05-05-2022 ambulatory DERIC FLORENCE [facility] Start: 03-27-2021 End: 03-27-2021 Emergency department patient visit Tien Oneal DO Work Phone: [facility] Emergency Department Comment on above: DUB (dysfunctional u terine bleeding) (Primary Dx) Procedures Date Procedure Procedure Detail Performing Clinician Start: 06-10-2024 Urnls dip stick/tabl et rgnt non-auto w/o micrscp Bryan Manisha DO Work Phone: Start: 06-10-2024 ALL MISCELLANEOUS TEST Bryan Manisha DO Work Phone: Start: 05-25-2024 Urnls dip stick/tabl et rgnt [...] 10-30-2022 Basic metabolic panel calcium total Yang Shadi OPINION [employer]LLS SURVEY WORKER - VOCAL ARTIST Work Phone: Start: 10-30-2022 Lipid panel Yang Girish barlow OPINION POLLS SURVEY WORKER - VOCAL ARTIST Work Phone: Start: 10-30-2022 Gluc bld gluc [...] Start: 10-29-2022 Hemoglobin glycosylated a1c Yang Hsu OPINION POLLS SURVEY WORKER - VOCAL ARTIST Work Phone: Start: 10-29-2022 Gluc bld gluc [...] Start: 05-04-2022 Urine test visual color cmprsn john Israel MD Work Phone: Start: 05-04-2022 Gluc [...] count complete auto&auto difrntl wbc Win Ricoyaron PA-[employer] Work Phone: Start: 03-27-2021 Urinalysis microscopic only Win Ricoyaron PA-C Work Phone: Start: 03-27-2021 End: 03-27-2021 Urnls dip stick/tablet rgnt auto w/o microscopy Win Ricoyaron PA-C Work Phone: Start: 03-27-2021 Us pelvic nonobstetr ic real-time image complete Tien Oneal DO Work Phone: Plan of Treatment Date Care Activity Detail Author Start: 06-16-2024 End: 06-16-2024 Patient encounter procedure [facility] Comment on above: Arrived Start: 06-10-2024 End: 06-10-2025 CULTURE, GROUP B STREP WITH SUSCEPTIBLITY CULTURE, GROUP B STREP WITH SUSCEPTIBLITY Lab Routine Third trimester Expected: 06/10/2024, Expires: 06/10/2025 Travel Notes Work Phone: Comment on above: Expected: 06/10/2024, Expires: Start: 06-10-2024 End: 06-10-2024 Patient encounter procedure [facility] Comment on above: Arrived Start: 05-25-2024 End: 05-25-2024 Patient encounter procedure [...] EST Ancillary Procedure [facility] [address] [place] [address] [facility] Start: 04-21-2024 End: 04-21-2024 Patient encounter procedure 04/21/2024 2:30 PM EDT Routine [facility] [address] [place] [address] Bryan Dyer DO [address] [place], [place] [id number] Arrived [facility] Comment on above: Arrived Start: 04-21-2024 End: 04-21-2025 US for US OB SCAN FOR GROWTH Imaging Routine Elevated glucose tolerance test Abnormal thyroid stimulating hormone (TSH) level Expected: 04/21/2024 (Approximate), Expires: 04/21/2025 [facility] Comment on above: Expected: 04/21/2024 (Approximate), Expi res: 04/21/2025 Start: 04-07-2024 End: 04-07-2024 Patient encounter procedure 04/07/2024 2:40 PM EDT Routine [facility] [address] [place] [address] Kierra Rivas PA [address] [place], [place] [id number] Arrived [facility] Comment on above: [...] (Diabetes, CKD 3-4, OR last GFR 15-59) [facility] [email or web address] Start: 10-31-2023 Lipid panel Lipids [facility] [email or web address] Start: 10-30-2023 Hemoglobin A1c measurement A1C test (Diabetic or Prediabetic) [facility] [email or web address] Start: 10-25-2023 GFR test (Diabetes, CKD 3-4, OR last GFR 15-59) GFR test (Diabetes, CKD 3-4, OR last GFR 15-59) [facility] [email or web address] Start: 05-04-2023 Hemoglobin A1c measurement A1C test (Diabetic or Prediabetic) [facility] [email or web address] Start: 05-04-2023 Lipid panel Lipids [facility] [email or web address] Start: 01-29-2023 Influenza vaccination Flu vaccine (Season Ended) [facility] [email or web address] Start: 11-14-2022 End: 11-14-2022 Patient encounter procedure 11/14/2022 Office Visit Bariatrics Deric Florence MD [address] [place] [address] [facility] Surg Weight Start: 10-29-2022 End: 10-29-2022 Admission to same day surgery center 10/29/2022 Surgery IP Unit Deric Florence MD [address] [place] [address] GASTRIC BYPASS NUNO-EN-Y LAPAROSCOPICNEEDS IV TEAM HANS OR Comment on above: GASTRIC BYPASS NUNO-EN-Y LAPAROSCOPICN EEDS IV TEAM Start: 10-29-2022 End: 10-29-2022 Laps gstr rstcv px w/byp nuno-en-y limb <150 cm GASTRIC BYPASS NUNO-EN-Y LAPAROSCOPIC Morbid obesity (HCC) 10/29/2022 9:00 AM EDT [facility] Start: 10-29-2022 Subsequent hospital visit by physician 10/29/2022 Hospital Encounter IP Unit Deric Florence MD [address] [place] [address] [facility] Start: 05-11-2022 End: 05-11-2022 Patient encounter procedure [facility] Weight Start: 05-04-2022 End: 05-04-2022 Egd transoral biopsy single/multiple EGD ESOPHAGOGASTRODUODENOSCOPY Gastroesophageal reflux disease 05/04/2022 8:18 AM EDT [facility] Start: 01-29-2022 Influenza vaccination Flu vaccine (#1) [facility] Start: 03-01-2021 Influenza vaccination Flu vaccine (#1) [employer] Phone: Start: 01-22-2020 Screening for malignant neoplasm of cervix Pap smear [facility] Start: 09-23-2019 Hepatitis B vaccine (3 of 3 - Risk 3-dose series) Hepatitis B vaccine (3 of 3 - Risk 3-dose series) [facility] Start: 2018 DTaP/Tdap/Td vaccine (1 - Tdap) DTaP/Tdap/Td vaccine (1 - Tdap) [facility] Start: 2017 Glaucoma screening Diabetic retinal exam [facility] Start: 2017 Hepatitis C screening Hepatitis C screen [facility] Start: 2017 Urine screening for protein Diabetic Alb to Cr ratio (uACR) test [facility] Start: 2015 Screening for Chlamydia trachomatis [facility] Start: 2014 HIV screening HIV screen [facility] Start: 2011 COVID-19 Vaccine (1) COVID-19 Vaccine (1) [employer] Phone: Start: 2011 Depression Monitoring Depression Monitoring [employer] Start: 2011 Depression Screen Depression Screen [address] Start: 2010 HPV vaccine (1 - 2-dose series) HPV vaccine (1 - 2-dose series) [address] Start: 2009 Diabetic foot examination Diabetic foot exam [address] Start: 2005 Pneumococcal 0-64 years Vaccine (1 - PCV) Pneumococcal 0-64 years Vaccine (1 - PCV) [address] Start: 01-22-2000 Varicella vaccine (1 of 2 - 2-dose childhood series) Varicella vaccine (1 of 2 - 2-dose childhood series) [address] Start: 1999 COVID-19 Vaccine (#1) COVID-19 Vaccine (#1) [employer] Start: 1999 Hepatitis C screening Hepatitis C screen [employer] Phone: End: 10-29-2023 Basic metabolic 2000 panel - Serum or Plasma Basic Metabolic Panel Lab Routine Daily for 365 Days starting 10/30/2022 until 10/29/2023, 1 completed [employer] Phone: Comment on above: Daily for 365 Days starting 10/30/2022 u ntil 10/29/2023, 1 completed End: 10-29-2023 CBC W Auto Differential panel - Blood CBC with Auto Differential Lab Routine Daily for 365 Days starting 10/30/2022 until 10/29/2023, 1 completed [employer] Phone: Comment on above: Daily for 365 Days starting 10/30/2022 u ntil 10/29/2023, 1 completed CBC W Auto Differential panel - Blood CBC and differential Lab Routine Anemia during in third trimester Ordered: 04/21/2024 Travel Notes Work Phone: Comment on above: Ordered: 04/21/2024 End: 03-27-2021 Culture, Urine Culture, Urine Microbiology Routine One Time for 1 Occurrences starting 03/27/2021 until 03/27/2021 [employer] Phone: Comment on above: One Time for 1 Occurrences starting 03/02 until 03/27/2021 End: 05-04-2022 Cyanocobalamin vitamin b-12 [employer] Phone: Comment on above: 1 Occurrences starting 05/04/2022 until 05/04/2022 End: 05-04-2022 Ferritin [Mass/volume] in Serum or Plasma [employer] Phone: Comment on above: 1 Occurrences starting 05/04/2022 until 05/04/2022 End: 05-04-2022 Folate [employer] Phone: Comment on above: 1 Occurrences starting 05/04/2022 until 05/04/2022 Glucose [Mass/volume ] in Serum or Plasma [employer] Phone: Comment on above: 4X Daily (AC & HS) until discontinued st arting 10/29/2022 As Needed until disc ontinued starting 10/29/2022 End: 05-04-2022 Hemoglobin A1c/Hemoglobin.total in Blood [employer] Phone: Comment on above: 1 Occurrences starting 05/04/2022 until 05/04/2022 End: 10-30-2022 Hemoglobin A1c/Hemoglobin.total in Blood Hemoglobin A1C Lab Routine Tomorrow AM for 1 Occurrences starting 10/30/2022 until 10/30/2022 [employer] Phone: Comment on above: Tomorrow AM for 1 Occurrences starting 0 10/30/2022 until 10/30/2022 Hemoglobin A1c/Hemoglobin.total in Blood Hemoglobin A1C Lab Routine 10/30/2022 4:51 AM EDT [employer] Phone: End: 10-29-2023 Hepatic function 2000 panel - Serum or Plasma Hepatic Function Panel Lab Routine Daily for 365 Days starting 10/30/2022 until 10/29/2023, 1 completed [employer] Phone: Comment on above: Daily for 365 Days starting 10/30/2022 u ntil 10/29/2023, 1 completed End: 10-29-2023 Magnesium [Mass/volume] in Serum or Plasma Magnesium Lab Routine Daily for 365 Days starting 10/30/2022 until 10/29/2023, 1 completed [employer] Phone: Comment on above: Daily for 365 Days starting 10/30/2022 u ntil 10/29/2023, 1 completed Nasal Cannula Oxygen Nasal Cannu la Oxygen Respiratory Care Routine Daily until discontinued starting 10/30/2022 [employer] Phone: Comment on above: Daily until discontinued starting 2022 Oxygen therapy [Minimum Data Set] Initiate Oxygen Therapy Protocol Respiratory Care Routine As Needed until discontinued starting 10/29/2022 [employer] Phone: Comment on above: As Needed until discontinued starting End: 10-29-2023 Phosphate [Mass/volume] in Serum or Plasma Phosphorus Lab Routine Daily for 365 Days starting 10/30/2022 until 10/29/2023, 1 completed [employer] Phone: Comment on above: Daily for 365 Days starting 10/30/2022 u ntil 10/29/2023, 1 completed End: 05-04-2022 Prealbumin [Mass/volume] in Serum or Plasma [employer] Phone: Comment on above: 1 Occurrences starting 05/04/2022 until 05/04/2022 End: 10-29-2022 Spirometry panel [employer] Phone: Comment on above: Continuous until discontinued starting 0 10/29/2022 Every 2hr while awak e until discontinued starting 10/29/2022 Surgical Pathology Surgical Path ology Lab Routine Gastroesophageal reflux disease Release Upon Ordering for 1 Occurrences starting 05/04/2022 [employer] Phone: Comment on above: Release Upon Ordering for 1 Occurrences starting 05/04/2022 Surgical Pathology Surgical Path ology Lab Routine Morbid obesity (HCC) Release Upon Ordering for 1 Occurrences starting 10/29/2022 [employer] Phone: Comment on above: Release Upon Ordering for 1 Occurrences starting 10/29/2022 End: 05-04-2022 Vitamin B1 Vitamin B1 Lab Routine Morbi d obesity due to excess calories (HCC) 1 Occurrences starting 05/04/2022 until 05/04/2022 [employer] Phone: Comment on above: 1 Occurrences starting 05/04/2022 until 05/04/2022 End: 05-04-2022 Zinc Zinc Lab Routine Morbid obes ity due to excess calories (HCC) 1 Occurrences starting 05/04/2022 until 05/04/2022 [employer] Phone: Comment on above: 1 Occurrences starting 05/04/2022 until 05/04/2022 Immunizations Immunization Date Immunization Notes Care Provider Lito enriquez 10-24-2020 tuberculin skin test ; purified protein derivative solution, intradermal Sjwz 2 [employer] Phone: 05-25-2019 hepatitis B vaccine, adult dosage [facility]z 2 [employer] Phone: 04-01-2019 hepatitis B vaccine, adult dosage Sjwz 2 [employer] Phone: 04-01-2019 meningococcal B vacc ine, recombinant, OMV, adjuvanted [facility] 2 [employer] Phone: 04-01-2019 tuberculin skin test ; purified protein derivative solution, intradermal [facility] 2 [employer] Phone: Payers Date Payer Category Payer Medicaid [facility] MEDICAID [employer] MEDICAID [place] [id number] 2023-Present [address] [place] [address] [id number] 2023 Private Health Insurance [facility] MEDICAID [id number] 2020 Private Health Insurance [id number]. [id number] 2020 Private Health Insurance [id number] 1.2.840.846924.1.13.239.2. 7.3.345760.315 1999 Unknown [id number] 2.16840.1.278776.3.579.2. 204 1999 Unknown [id number] 2.16840.1.452456.3.579.2. 204 1999 Unknown [id number] 2.16840.1.514645.3.579.2. 204 1999 Unknown [id number] 2.16.840.1.908827.3.579.2. 204 1999 Unknown [id number] 2.16840.1.967375.3.579.2. 1285 1999 Unknown [id number] 2.16840.1.310040.3.579.2. 1285 1999 Unknown [id number] 2.16840.1.691525.3.579.2. 1285 1999 Unknown [id number] 2.16840.1.057784.3.579.2. 1285 1999 Unknown [id number] 2.16840.1.070202.3.579.2. 1285 1999 Unknown [id number] 2.16840.1.772579.3.579.2. 1258 1999 Unknown [id number] 2.16840.1.754238.3.579.2. 1258 1999 Unknown [id number] 2.16840.1.687003.3.579.2. 1258 1999 Unknown [id number] 2.16840.1.705172.3.579.2. 1258 1999 Unknown [id number] 2.840.1.638611.3.579.2. 1258 1999 Unknown [id number] 2.840.1.952757.3.579.2. 1258 1999 Unknown [id number] 2.840.1.352244.3.579.2. 1258 1999 Unknown [id number] 2.840.1.063131.3.579.2. 1258 1999 Unknown [id number] 2.840.1.214294.3.579.2. 1259 Unknown [id number] 2.840.1.658525.3.579.2. 212 Unknown [id number] 2.840.1.120249.3.579.2. 212 Unknown [id number] 2.840.1.115530.3.579.2. 212 Unknown [id number] 2.840.1.174212.3.579.2. 212 Unknown [id number] 2.840.1.557158.3.579.2. 212 Unknown [id number] 2.840.1.176191.3.579.2. 212 Unknown [id number] 2.840.1.767641.3.579.2. 212 Unknown [id number] 2.840.1.068151.3.579.2. 212 Unknown [id number] 2.840.1.731224.3.579.2. 212 Social History Date Type Detail Facility [facility] [employer] Phone: Start: 2000 Sex Assigned At Not on file [employer] Phone: Start: 04-23-2022 End: 05-03-2022 Exposure to SARS-CoV-2 (event) Not sure [facility] Start: 05-03-2022 End: 10-24-2022 Tobacco smoking status NHIS Ex-smoker [employer] Phone: End: 12-29-2021 History of tobacco use Current smoker [employer] Phone: End: 12-29-2021 History of tobacco use Cigarette Smoker [employer] Phone: Start: 05-03-2022 End: 12-12-2023 Tobacco use and exposure Smokeless tobacco non-user [employer] Phone: Start: 05-04-2022 End: 10-30-2022 Alcohol intake Current drinker of alcohol (finding) [employer] Phone: Start: 05-03-2022 Tobacco Comment Quit 12/2021 [employer] Phone: Start: 05-03-2022 Alcohol Comment occ [employer] Phone: Start: 10-29-2022 History SDOH Alcohol Frequency 1 [employer] Phone: Start: 12-12-2023 Tobacco smoking stat us WAIS Never smoked tobacco [facility] Start: 03-09-2024 End: 06-10-2024 Alcoholic beverage intake Ex-drinker (finding) [facility] Start: 12-12-2023 End: 03-09-2024 Alcoholic beverage intake [facility] Start: 12-12-2023 Tobacco use panel [facility] Start: 10-13-2023 [facility] Clinical Notes 05-04-2022 to 06-10-2024 Marnie Dan LPN - 06/10/2024 1:40 PM Miles Zhao, BILINGUAL CUSTOMER SERVICE - 05/25/2024 2:00 PM MARILEE Wise - 05/06/2024 3:30 PM LETHAMarnie Dan, SHASHI - 04/21/2024 2:30 PM EDTDischarge InstructionsAttachments Note Date & Type Note Facility 06-10-2024 History of Present illness Narrative Reason for Appointment: Patient ID: [id number] Kingsley is a 24 y.o. female who presents for Routine Visit Patient presents today for Return OB appointment. MEDICATIONS Current Outpatient Medications Medication Instructions albuterol HFA 90 mcg/act inhaler cholecalciferol (Vitamin D-3) 50 MCG (1999) capsule 1 capsule, Every 24 hours diphenhydrAMINE (BENADRYL ALLERGY) 25 mg, Oral, Every 6 hours PRN Vit-Fe Fumarate-FA ( Plus/Iron) 27-1 MG tablet [...] Constitutional: Appearance: Normal appearance. She is well-developed. Genitourinary: Vulva normal. Cardiovascular: Rate and Rhythm: Normal rate and [...] nursing note reviewed. Exam conducted with a diamond sorter present. Vitals: There is no height or weight on file to calculate BMI. BP: Patient's last menstrual period was 09/29/2023. ASSESSMENT & PLAN ICD-10-CM 1. Third trimester Z34.93 POCT urinalysis dipstick manually resulted CULTURE, GROUP B STREP WITH SUSCEPTIBLITY CULTURE, GROUP B STREP WITH SUSCEPTIBLITY 2. 36 weeks gestation of Z3A.36 3. Non-compliant patient, third trimester O09.893 Z91.199 4. History of gastric bypass Z98.84 5. Gestational diabetes mellitus (GDM), antepartum, gestational diabetes method of control unspecified O24.419 Patient is doing well but has complaints of being tired and having maternal discomfort due to . Patient verbalized frequent movement and was instructed to perform kick counts three times per day. labor precautions were given, LARC consent was signed/declined, and GBS was obtained. Cervical check was performed and patient is 2cm dilated. Pt is an uncontrolled diabetic. Orders Placed This Encounter Procedures CULTURE, GROUP B STREP WITH SUSCEPTIBLITY POCT urinalysis dipstick manually resulted Follow Up: Patient is to return to office in 1 week for routine OB appointment Documented by Marnie Dan LPN on behalf of: Bryan Dyer DO documented in this encounter [facility] 05-25-2024 History of Present illness Narrative Reason [...] nursing note reviewed. Exam conducted with a diamond sorter present. Vitals: There is no height or [...] scheduled starting this week. Order faxed to [facility] Scheduling and [facility]. Gave patient handouts for [employer]. Patient to return to clinic in 2 weeks for routine OB appointment. Patient will have GBS done at that time. Documented by Mary Zhao LPN on behalf of: Bryan Dyer DO documented in this encounter [facility] 05-06-2024 History of Present illness Narrative [...] of: MARILEE Espinosa documented in this encounter [facility] 04-21-2024 History of Present illness Narrative [...] nursing note reviewed. Exam conducted with a diamond sorter present. Vitals: There is no height or [...] Bryan Dyer DO documented in this encounter [facility] 04-07-2024 History of Present illness Narrative [...] nursing note reviewed. Exam conducted with a diamond sorter present. Vitals: There is no height or [...] of: MARILEE Espinosa documented in this encounter [facility] 10-30-2022 Hospital Discharge instructions Lashawn Ordoñez RN - 10/30/2022 6:49 AM EDT Your information: Name: Batool Kingsley : 2000 Dr[address] Florence's Discharge Instructions for Bariatric Surgery [facility] Discharge Instructions For [...] blood sugars as ordered by PCP or Kier Tender. Follow up with PCP or Kier Tender regarding diabetic medications. Make sure you take any medicines you were on for depression or anxiety. FOLLOW-UP Follow-up appointment with surgeon 10-14 days after surgery. Complete lab work prior to this appointment. Follow-up with PCP and/or Kier Tender prior to seeing surgeon. CALL [facility] [phone] IF ANY OF THE FOLLOWING OCCURS TO [...] Name(s) of Who Valuable(s) Were Given To: [place] Responsible person(s) in the waiting room: Moris [...] Weapons (Notify Protective Services/Security): None Other Valuables: Clemons, Wallet Home Medications: None Valuables Given To: [...] through Care Everywhere.Gastric Bypass Surgery: Nuno-en-Y: Post-op (Thai)documented in this encounter [facility] [employer] Phone: 10-30-2022 Hospital course Narrative Physician Discharge Summary Batool Kingsley [id number] Admit date: 10/29/2022 Discharge date and time: [...] Your Medications These medications were sent to [facility], [place] - [address] [facility] - [phone] - F [phone] [address] [facility] [id number] traMADol 50 MG tablet Activity: no lifting, [...] 6:48 AM documented in this encounter [facility] [employer] Phone: 10-30-2022 History of Present illness Narrative Internal Medicine Progress Note NATHALIE=[facility] Shanta Hernandez D.O., F.A.C.O.I. Christin Mason D.O., F.A.C.O.I. Juliocesar Werner D.O. Francine Kilpatrick, MSN, OPINION POLLS SURVEY WORKER, RESIDENTIAL BUILDER-C Yang Hsu, MSN, OPINION POLLS SURVEY WORKER-VOCAL ARTIST Primary Care Physician: KAELA ARELLANO APRN - VOCAL ARTIST Admitting Physician: Deric Florence MD Admission date and time: 10/29/2022 6:02 AM Room: [address] [place] [address] Admitting diagnosis: Morbid obesity (HCC) [E66.01] Post-operative [...] reflux disease with possible hiatal hernia repair Ngw-teyoxnm-izioienig diabetes mellitus type 2 Anxiety Plan: Batool [...] 6:37 AM documented in this encounter [facility] Work Phone: 10-24-2022 History of Present illness Narrative Images from the original note were not included. [facility] PRE OP INSTRUCTIONS FOR Batool [...] makeup (including no eye makeup) or nail nicaraguan on your fingers or toes. DO NOT wear any jewelry or piercings on day of surgery. All body piercing jewelry must be removed. Shower the night before surgery with _x__Antibacterial soap /CHG WIPES___x If you have a Living Will and Durable Power of Coach for Healthcare, please bring in a copy. [...] and go to information desk Please call RETAIL WIRELESS ASSOCIATE if you have any further questions. Pre Admit Testing [phone] [facility] [phone] documented in this encounter [employer] Phone: 05-04-2022 Hospital Discharge instructions Ashlie Goyal [...] the day after the test, use an delu-dwy-jbotgtw spray to numb your throat. Follow-up care [...] Where can you learn more? Go to [email or web address] and sign in to your [email or web address] account. Enter J454 in the Search Health Information box to learn more about Upper GI Endoscopy: What to Expect at Home. If you do not have an account, please click on the Sign Up Now link. Current as of: December 04, 2021 Content Version: 13.4 [employer]. Care instructions adapted under license by [employer]. If you have questions about a medical condition or this instruction, always ask your healthcare professional. [employer] disclaims any warranty or liability for your use of this information. documented in this encounter [facility] [email or web address] Work Phone: 05-04-2022 History of Present illness Narrative SBAR form completed and placed on chart. Chart with patient in transit. Images from the original note were not included. [facility] PRE OP INSTRUCTIONS FOR Batool [...] makeup (including no eye makeup) or nail nicaraguan on your fingers or toes. DO NOT wear any jewelry or piercings on day of surgery. All body piercing jewelry must be removed. Shower the night before surgery with _x__Antibacterial soap /ALEXANDER WIPES TOTAL JOINT REPLACEMENT/HYSTERECTOMY PATIENTS ONLY---Remember to bring Blood Bank bracelet to the hospital on the day of surgery. If you have a Living Will and Durable Power of Coach for Healthcare, please bring in a copy. [...] safety of all patients. Other Please call RETAIL WIRELESS ASSOCIATE if you have any further questions. Pre Admit Testing [phone] [facility] [phone] documented in this encounter [employer] Phone: Evaluation note Diagnosis DUB (dysfunctional uterine bleeding)- Primary Other disorder of menstruation and other abnormal bleeding from female genital tract documented in this encounter [employer] Phone: evaluation note* Diagnosis Gastroesophageal reflux disease- Primary Esophageal reflux Morbid obesity due to excess calories (HCC) documented in this encounter [employer] Phone: evaluation note* Diagnosis Morbid obesity (HCC)- Primary Morbid obesity Preop testing- Primary Preoperative examination, unspecified 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 Morbid obesity (HCC) Morbid obesity documented in this encounter [employer] Phone: evaluation note* Diagnosis S/P gastric bypass- Primary Bariatric surgery status Morbid obesity (HCC) Morbid obesity Post-operative state Other postprocedural status Morbid obesity (HCC) Morbid obesity Post-operative state Other postprocedural status documented in this encounter [facility] Phone: evaluation note* Diagnosis 27 weeks gestation of Second trimester state, incidental Gestational diabetes mellitus (GDM), antepartum, gestational diabetes method of control unspecified Anemia affecting in second trimester documented in this encounter [facility] HealthcareEvaluation note* Diagnosis Third trimester state, incidental 29 weeks gestation of Anemia during in third trimester Elevated glucose tolerance test Impaired glucose tolerance test Abnormal thyroid stimulating hormone (TSH) level documented in this encounter [facility] HealthcareEvaluation note* Diagnosis Third trimester state, incidental 31 weeks gestation of Anxiety, generalized (CMS/HCC) Sinusitis, unspecified chronicity, unspecified location documented in this encounter [facility] HealthcareEvaluation note* Diagnosis 34 weeks gestation of Third trimester state, incidental Insomnia, unspecified type History of gastric bypass Gestational diabetes mellitus (GDM), antepartum, gestational diabetes method of control unspecified documented in this encounter [facility] HealthcareEvaluation note* Diagnosis Third trimester state, incidental 36 weeks gestation of Non-compliant patient, third trimester History of gastric bypass Gestational diabetes mellitus (GDM), antepartum, gestational diabetes method of control unspecified documented in this encounter [facility] HealthcareHospital Discharge instructions* Attachments The following attachments cannot be sent through Care Everywhere. * AUB (Abnormal Uterine Bleeding) (Thai) [id number] Phone: Summary Purpose Family History No Family [...] section and content) DATE CREATED AUTHOR 07/16/2020 [facility] hector [place] DATE CREATED AUTHOR AUTHOR'S ORGANIZ ATION 05/05/2022 [facility] DATE CREATED AUTHOR AUTHOR'S ORGANIZ ATION 02/07/2023 [facility] DATE CREATED AUTHOR AUTHOR'S ORGANIZ ATION 06/04/[address] [facility] DATE CREATED AUTHOR AUTHOR'S ORGANIZ ATION 02/19/2024 [facility] DATE CREATED AUTHOR AUTHOR'S ORGANIZ ATION 03/19/2024 [facility] DATE CREATED AUTHOR AUTHOR'S ORGANIZ ATION 06/13/2024 [facility] dical Specialists EPIC Reason for Visit (unrecogniz ed section and content) Reason Comments Vaginal Bleeding 4 pad per hour, larg e clots present Specialty Diagnoses / Procedures Referred By Geronimo reardon Referred To Contact Diagnoses Gastroesophageal reflux disease Gastroesophageal reflux disease [K21.9] Procedures [place] EGD TRANSORAL BIOPSY SINGLE/MULTIPLE [place] EGD TRANSORAL BIOPSY SINGLE/MULTIPLE [place] ESOPHAGOGASTRODUODENOSCOPY TRANSORAL DIAGNOSTIC [place] EGD BALLOON DILATION ESOPHAGUS <30 MM DIAM EGD ESOPHAGOGASTRODUODENOSCOPY Deric Florence MD [address] [facility] [address] [place] [address] [facility] [address] [place] [address] Referral ID Status Reason Start Date Expiration Date Visits Re quested Visits Authorized [id number] 1 1 Specialty Diagnoses / Procedures Referred By Geronimo reardon Referred To Contact Diagnoses Morbid obesity (HCC) Morbid obesity (HCC) [E66.01] Procedures [place] LAPS GSTR RSTCV PX W/BYP NUNO-EN-Y LIMB <150 CM GASTRIC BYPASS NUNO-EN-Y LAPAROSCOPIC Deric Florence MD [address] [place] [address] [facility] [address] [place] [address] Referral ID Status Reason Start Date Expiration Date Visits Re quested Visits Authorized [id number] 1 1 Reason Comments Routine Visit Continuous [...] 100 mL IVPB (COMPLETED) 3,000 mg, IntraVENous, BLUE PRINTS TRIMMER TO O.R., 1 dose, On Sat10/29/22 at [...] Jennifer Huff, MELANIA)0516 (Given - Provider: Jennifer Huff, MLEANIA)1215 (Due)1815 (Due) methocarbamol (ROBAXIN) injection 1,000 mg [...] RN)2039 (New Bag - Provider: Jennifer Huff, RN) [...] of order., Post-op bupivacaine-EPINEPHrine PF (MARCAINE-w/EPINEPHrine) 0.25% -[id number] injection (CANCELED) PRN, Starting on Sat10/29/22 at [...]
Care Teams (unrecognized sec tion and content) Programmer Analyst Consultant Relationship Specialty Start Date End Date Kaela Arellano APRN - [facility] [address] [place] [address] PCP - General Certified Nurse Practitioner 04/27/22 Programmer Analyst Consultant Relationship Specialty Start Date End Date Kaela Arellano APRN [facility] [address] [place] [address] PCP - General Certified Nurse Practitioner 09/14/22 Programmer Analyst Consultant Relationship Specialty Start Date End Date Kaela Arellano APRN - [facility] [address] [place] [address] PCP - General Certified Nurse Practitioner 09/14/22 [...] BE BASED ON THE PRIMARY CLINICAL RECORDS. [employer] provides no warranty or guarantee of the accuracy or completeness of information in this document.
[2024-06-18 05:46] LABS: Hematocrit 31.1 % (36.0-48.0); Hemoglobin 10.6 g/dL (12.0-16.0); Mean Corpuscular HGB Conc 34.1 g/dL (29.9-35.2); Mean Corpuscular Hemoglobin 31.6 pg (26.7-34.0); Mean Corpuscular Volume 92.8 fL (81.0-99.0); Mean Platelet Volume 11.6 fL (9.5-13.5); Platelet Count 211 10^3/uL (150-450); Red Blood Count 3.35 10^6/uL (4.20-5.40); Red Cell Distribution Width 13.6 % (11.0-15.0); White Blood Count 9.3 10^3/uL (4.0-11.0)
[2024-06-18] MEDS: 0.9 % SODIUM CHLORIDE 1,000 ML 125 ML IV ×2 (05:59→14:06)
[2024-06-18] MEDS: OXYTOCIN/0.9 % SODIUM CHLORIDE 10 UNITS/500 ML PLAST..BAG 6 UNIT IV (06:00)
[2024-06-18 06:10] LABS: Amphetamine Screen Urine NEGATIVE (NEGATIVE); Barbiturates Screen Urine NEGATIVE (NEGATIVE); Benzodiazepines Screen Urine NEGATIVE (NEGATIVE); Buprenorphine Screen Urine NEGATIVE (NEGATIVE); Cannabinoid Screen Urine NEGATIVE (NEGATIVE); Cocaine Screen Urine NEGATIVE (NEGATIVE); Methadone Screen Urine NEGATIVE (NEGATIVE); Methamphetamines Screen Urine NEGATIVE (NEGATIVE); Opiate Screen Urine NEGATIVE (NEGATIVE); Oxycodone Screen Urine NEGATIVE (NEGATIVE); Phencyclidine Screen Urine NEGATIVE (NEGATIVE); Tricyclic Antidepressant Urine NEGATIVE (NEGATIVE)
[2024-06-18] MEDS: NALBUPHINE HCL 10 MG/ML AMPULE IV ×2 (14:06→18:21)
[2024-06-18] MEDS: ONDANSETRON PF 4 MG/2 ML VIAL IV ×2 (15:31→20:34)
[2024-06-18] MEDS: OXYTOCIN/0.9 % SODIUM CHLORIDE 10 UNITS/500 ML PLAST..BAG 60 UNIT IV (17:31)
[2024-06-18] MEDS: 0.9 % SODIUM CHLORIDE 1,000 ML 999 ML IV (20:40)
[2024-06-18] MEDS: ROPIVACAINE HCL/PF 400 MG/200 ML PREMIX 6 MG EPIDURAL (21:43)
[2024-06-18] MEDS: CEFAZOLIN SODIUM/DEXTROSE,ISO 2 GM/50 ML PIGGYBACK IV (23:04)
[2024-06-18] MEDS: FAMOTIDINE/PF 20 MG/2 ML VIAL IV (23:04)
[2024-06-18] MEDS: OXYTOCIN/0.9 % SODIUM CHLORIDE 20 UNITS/1,000 ML PLAST..BAG 125 UNIT IV (23:52)
[2024-06-18] MEDS: LACTATED RINGER'S SOLUTION 1,000 ML 50 ML IV (23:55)
[2024-06-19] VITALS (46 sets, daily range): BP systolic 78–127; BP diastolic 30–76; PULSE 80–91; TEMP 36.3–37.8; O2SAT 92–94
--- NOTE | 2024-06-19 00:08 | PM.ONB ---
Brief Operative Note Date of procedure: 06/19/24 Pre-op diagnosis general: iup at 39wks, non reassuring heart tones, failure to descend, failure to dilate Post-op diagnosis: same as pre-op Procedure: NAME OF PROCEDURE: [ section ] PROCEDURE: Patient was taken back to the Operating Room where she was given a spinal anesthesia with Duramorph without difficulty. She was prepped and draped in the normal sterile fashion. A Pfannenstiel skin incision was then made 2 cm above the symphysis pubis and carried down to underlying rectus fascia using a Bovie. The fascia was incised in the midline and extended laterally using Lee scissors. Two Anna Marie clamps were placed on the superior aspect of the fascia and dissected off the underlying rectus muscles. The same was performed on the inferior aspect as well. The muscles were then in the midline. Peritoneum was identified and entered bluntly. The peritoneum was then extended superiorly and inferiorly with good visualization of the bladder. The bladder blade was inserted. A low transverse incision was made on the patient's uterus and extended laterally digitally. The infant was then delivered atraumatically after the bladder blade was removed in the cephalic position. The cord was clamped and cut. Cord blood was obtained. The was handed off to awaiting team. The patient's placenta was spontaneously delivered. The uterus was then exteriorized. The uterus was cleared of all clots and debris. The bladder blade was reinserted. The patient's uterine incision was closed using #0 Vicryl in a running lock fashion. Excellent hemostasis was assured. The uterus was then returned to the patient's abdomen. The patient's abdomen was copiously irrigated using warm saline. Peritoneal gutters were cleared of all clots and debris. Again excellent hemostasis was assured. The patient's peritoneum was closed using 3-0 Vicryl in a running fashion. The patient's fascia was closed using #0 Vicryl in a running fashion. The patient's skin was closed using 4-0 Vicryl subcuticularly. The patient tolerated the procedure well. Sponge, lap, and needle counts were correct x2. The patient was taken to the Recovery Room in stable condition. Anesthesia: spinal and epidural Surgeon: Bryan Dyer Aquatic Life Laborer: Nida Wright Estimated blood loss (mL): 575 Pathology: other (placenta) Condition: stable Disposition: PACU Urinary Catheter Management Urinary Catheter Management Urethral: Cath placed during this visit: no
--- NOTE | 2024-06-19 00:10 | PM.OBPRCCS ---
Procedure Pre-op/Post-op diagnoses: Pre-Op/Post-Op Diagnoses Operation Date: 06/18/24 23:00 <No data on this case meets the specified criteria> Procedure: Procedures Operation Date: 06/18/24 23:00 Actual Procedure Side Surgeon p Not Applicable Bryan Dyer DO Temporary Help Agency Referral Clerk: Nida Wright Disposition: PACU Anesthesia type: Spinal
--- NOTE | 2024-06-19 03:10 | PC.NURSE ---
RN receives report from DRAWER IN PLAIN LOOM at this time.
[2024-06-19] MEDS: CEFAZOLIN SODIUM/DEXTROSE,ISO 2 GM/50 ML PIGGYBACK IV (05:33)
[2024-06-19] MEDS: KETOROLAC TROMETHAMINE 30 MG/ML VIAL IVP ×3 (06:15→18:25)
--- NOTE | 2024-06-19 08:14 | PC.NURSE ---
Pt complaining of itching; RN offers medications for itching, pt denies.
--- NOTE | 2024-06-19 09:10 | PC.NURSE ---
Epidural catheter removed in OR per Cristobal COUNTER TACKER d/t spinal procedure. Tip intact
--- NOTE | 2024-06-19 10:02 | PC.NURSE ---
Pt gets up from bed with family members, ambulating in room- into BR, roberson removed, pericare reviewed and into shower, dsg removed and steristrips intact, large apron noted and reviewed incisional care, iv dc per pt request after shower
[2024-06-19] MEDS: ENOXAPARIN SODIUM 40 MG/0.4 ML SYRINGE SUBQ (12:47)
[2024-06-19] MEDS: ACETAMINOPHEN 500 MG TABLET 1000 MG PO (21:34)
[2024-06-19] MEDS: SIMETHICONE 80 MG TAB.CHEW PO (21:34)
[2024-06-20] VITALS (7 sets, daily range): BP systolic 104–133; BP diastolic 49–61; PULSE 96–103; TEMP 37–37.3
[2024-06-20] MEDS: KETOROLAC TROMETHAMINE 30 MG/ML VIAL IVP ×4 (01:34→22:54)
[2024-06-20] MEDS: OXYCODONE HCL/ACETAMINOPHEN 5MG/325MG 1 TAB PO ×3 (01:39→22:54)
[2024-06-20 06:36] LABS: Basophils Percent Auto 0.1 % (0.2-2.0); Eosinophils Percent Auto 0.3 % (0.9-7.0); Hematocrit 24.7 % (36.0-48.0); Immature Granulocytes Abs Auto 0.04 10^3/uL (0.00-0.03); Immature Granulocytes Pct Auto 0.6 % (0.0-0.5); Lymphocytes Absolute Auto 1.3 10^3/uL (1.2-3.8); Lymphocytes Percent Auto 19.8 % (20.5-60.0); Mean Corpuscular HGB Conc 32.4 g/dL (29.9-35.2); Mean Corpuscular Hemoglobin 31.4 pg (26.7-34.0); Mean Corpuscular Volume 96.9 fL (81.0-99.0); Mean Platelet Volume 10.8 fL (9.5-13.5); Monocytes Absolute Auto 0.3 10^3/uL (0.3-0.8); Monocytes Percent Auto 4.3 % (1.7-12.0); Neutrophils Percent Auto 74.9 % (43.0-75.0); Platelet Count 138 10^3/uL (150-450); Red Blood Count 2.55 10^6/uL (4.20-5.40); Red Cell Distribution Width 14.1 % (11.0-15.0); White Blood Count 6.7 10^3/uL (4.0-11.0)
[2024-06-20] MEDS: SIMETHICONE 80 MG TAB.CHEW PO (08:05)
[2024-06-20] MEDS: DOCUSATE SODIUM 100 MG CAPSULE PO ×2 (08:05→22:54)
--- NOTE | 2024-06-20 09:14 | P.OBPN_ITS ---
OB - PN: Subj Subjective Patient comments: no complaints and pain well controlled [place] status: doing well Exam Constitutional Vital Signs, click to edit/add: Last Vital Signs Temp 99.1 F 06/20/24 08:04 Pulse 96 H 06/20/24 08:04 Resp 16 06/20/24 08:14 BP 133/61 06/20/24 08:04 Pulse Ox 94 L 06/19/24 00:59 O2 Del Method Room Air 06/20/24 08:14 Documenting provider has reviewed patient's vital signs: yes Common normals: no apparent distress Respiratory Common normals: normal respiratory effort and clear to auscultation bilaterally Cardio Common normals: regular rate and regular rhythm GI Common normals: Normal to inspection, nondistended, normoactive bowel sounds present Extremity Common normals: no clubbing, cyanosis or edema Results Labs Labs: Short CBC 06/20/24 Range/Units 06:25 WBC 6.7 (4.0-11.0) 10^3/uL Hgb 8.0 L (12.0-16.0) g/dL Hct 24.7 L (36.0-48.0) % Plt Count 138 L (150-450) 10^3/uL Urinary Catheter Management Urinary Catheter Management Urethral: Cath placed during this visit: yes, but has since been removed by the nurse Insertion date: 06/19/24 Insertion time: 22:30 Removal date: 06/19/24 Removal time: 09:00 OB - PN: A/P Plan - day: 2 Plan: routine postop care, discharge home and other (fu 1wk) Time Spent with Patient Time: Total time spent is greater than 50% in coordination of care (as documented) at patient's floor/unit and/or counseling patient: Total time spent with greater than 50% in coordination of care (as documented) at patient's floor/unit and/or counseling patient: less than 15 minutes
[2024-06-20] MEDS: ENOXAPARIN SODIUM 40 MG/0.4 ML SYRINGE SUBQ (12:45)
[2024-06-21] MEDS: OXYCODONE HCL/ACETAMINOPHEN 5MG/325MG 2 TAB PO (05:42)
[2024-06-21 08:16] VITALS: BP 117/58; PULSE 88
[2024-06-21] MEDS: DOCUSATE SODIUM 100 MG CAPSULE PO (08:16)
[2024-06-21] MEDS: IBUPROFEN 400 MG TABLET 800 MG PO (08:16)
[2024-06-21 08:21] VITALS: TEMP 36.8
--- NOTE | 2024-06-21 10:36 | PM.OBPN ---
OB - PN: Subj Subjective Patient comments: no complaints and pain well controlled [place] status: doing well Exam Constitutional Vital Signs, click to edit/add: Last Vital Signs Temp 98.2 F 06/21/24 08:21 Pulse 88 06/21/24 08:16 Resp 16 06/21/24 08:21 BP 117/58 06/21/24 08:16 Pulse Ox 94 L 06/19/24 00:59 O2 Del Method Room Air 06/21/24 08:21 Documenting provider has reviewed patient's vital signs: yes Common normals: no apparent distress Respiratory Common normals: normal respiratory effort and clear to auscultation bilaterally Cardio Common normals: regular rate and regular rhythm GI Common normals: Normal to inspection, nondistended, normoactive bowel sounds present Extremity Common normals: normal to inspection and no calf tenderness Urinary Catheter Management Urinary Catheter Management Urethral: Cath placed during this visit: yes, but has since been removed by the nurse Insertion date: 06/19/24 Insertion time: 22:30 Removal date: 06/19/24 Removal time: 09:00 OB - PN: A/P Plan - day: 3 Plan: routine postop care, discharge home and other (fu 1wk) Time Spent with Patient Time: Total time spent is greater than 50% in coordination of care (as documented) at patient's floor/unit and/or counseling patient: Total time spent with greater than 50% in coordination of care (as documented) at patient's floor/unit and/or counseling patient: less than 15 minutes
== END 2024-06-21 11:35 | disposition home or self-care (01) | DRG 540 ==
PROVIDERS: Admitting Provider Obstetrics & Gynecology; Visit Provider Obstetrics & Gynecology
PROC: (CPT 59514; principal; 2024-06-18 23:00)
DX: O99.844 Bariatric surgery status complicating childbirth (principal); O32.4XX0 Maternal care for high head at term, not applicable or unspecified; O62.0 Primary inadequate contractions; O76 Abnormality in fetal heart rate and rhythm complicating labor and delivery; Z3A.39 39 weeks gestation of pregnancy; Z37.0 Single live birth
CPT/HCPCS: 36415; 51702; 59025; 59050; 80307; 85025; 85027; 86850; 86900; 86901; 88307; 94667; 94668; J0690; J1650; J1885; J2274; J2300; J2371; J2405; J2795

== ENCOUNTER 2024-06-23 08:42 | Outpatient (OUT) | payer OTHER, SELFPAY ==
--- OUTSIDE RECORDS SUMMARY | 2024-06-23 08:47 | XMS_ITS | CCD ---
Author Organization [facility] Care Team Providers Care Circuitry Negative Inspector Name Role Phone Unavailable Primary Care Provider Unavailabl e Coats MONORAIL OPERATOR - SHERIE, Kaela Primary Care Provider [phone] DERIC FLORENCE Referring Unavailable GILLIAN, KAELA Primary Care Unavailable Coats MONORAIL OPERATOR - SUPERIOR COURT JUSTICE, Kaela Primary Care Provider [phone] GILLIAN, KAELA Primary Care Unavailable DERIC FLORENCE Referring Unavailable GILLIAN, KAELA Primary Care Unavailable DERIC FLORENCE Admitting Unavailable DERIC FLORENCE Attending Unavailable CHRISTIN MASON Unavailable GILLIAN, KAELA Primary Care Unavailable DERIC FLORENCE Admitting Unavailable DERIC FLORENCE Attending Unavailable GILLIAN, KALEA Primary Care Unavailable GILLIAN, KAELA Attending Unavailable [...] Attending Unavailable MANISHA, BRYAN Attending Unavailable KIERRA SHERWOOD Attending Unavailable MANISHA, BRYAN Attending Unavailable KIERRA SHERWOOD Attending Unavailable BRYAN DYER Attending Unavailable BRYAN DYER Attending Unavailable BRYAN DYER Attending Unavailable Medications Current Medications Medication Drug Class(es) Dates Sig (Normalized) Sig (Original) [id number] 200 actuat albuterol 0.09 mg/actuat metered dose inhaler (20 sources) beta2-Adrenergic Agonist Start: 01-11-2023 albuterol HFA [...] Suspended diphenhydrAMINE hydrochloride 25 mg oral capsule (11 sources) Histamine-1 Receptor Antagonist Start: 05-25-2024 End: [...] / nitrofurantoin, monohydrate 75 mg oral capsule (6 sources) Nitrofuran Antibacterial Start: 06-15-2024 End: 06-22-2024 [...] Vit-Fe Fumarate-FA ( Plus/Iron) 27-1 MG tablet (20 sources) Start: 12-17-2023 End: 12-16-2024 take 1 [...] Glucose Monitoring Suppl (D-Care Glucometer) w/Device kit (7 sources) Start: 02-19-2024 End: 04-07-2024 Blood Glucose [...] (20 mg) by mouth Daily 30 tablet 05/06/2024 05/25/2024 Discontinued 0.5 ml dulaglutide 3 [...] injection hydrOXYzine hydrochloride 25 mg oral tablet (10 sources) Antihistamine Start: 09-03-2023 End: 04-07-2024 hydrOXYzine [...] physician isopropyl alcohol 0.7 ml/ml medicated pad (7 sources) Start: 02-19-2024 End: 04-07-2024 Alcohol Swabs (Alcohol Prep Pad) 70 % pads Indications: Gestational diabetes mellitus (GDM), antepartum, gestational diabetes method of control unspecified , Elevated glucose tolerance test Apply 1 Pad topically Daily Use four times daily to check FSBS. 150 each 3 02/19/2024 04/07/2024 Discontinued magnesium oxide 400 mg oral tablet (7 sources) Start: 01-20-2024 End: 04-19-2024 take 1 [...] tolerance complicating ; childbirth; or the puerperium (17 sources) Gestational diabetes mellitus; Translations: [Gestational diabetes [...] bleeding] Onset: 2 Chronic Other gastrointestinal disorders (17 sources) History of bypass of stomach; Translations: [...] 4 Chronic Other and delivery including normal (15 sources) Encounter for supervision of normal , unspecified, unspecified trimester; Translations: [Second trimester ] Onset: 4 04-07-2024 Episodic Other screening for suspected conditions (not mental disorders or infectious disease) (11 sources) Other specified abnormal findings of blood [...] [36 weeks gestation of ] 06-10-2024 Episodic Residual codes; unclassified (2 sources) Gestation period, 37 weeks; Translations: [37 weeks gestation of ] 06-16-2024 Episodic Thyroid disorders (2 sources) Hypothyroidism, unspecified; [...] Name Value Interpretation Reference Range Facility ALL CBC WITH AUTO DIFFon BASOPHILS ABSOLUTE AUTO 0 [facility] Basophils/100 WBC (Bld) 0.1 % Low 0.2 - 2.0 % [facility] Eosinophils/100 WBC (Bld) 0.3 % Low 0.9 - 7.0 % [facility] Erythrocyte distribution width (RBC) [Ratio] 14.1 % 11.0 - 15.0 % [facility] Hematocrit (Bld) [Volume fraction] 24.7 % Low 36.0 - 48.0 % [facility] Hemoglobin (Bld) [Mass/Vol] 8 g/dL Low 12.0 - 16.0 g/dL [facility] IMMATURE GRANULOCYTES ABS AUTO 0.04 High [facility] Immature granulocytes/100 WBC (Bld) 0.6 % High 0.0 - 0.5 % [facility] Interpretation and review of laboratory results Abnormal [facility] LYMPHOCYTES ABSOLUTE AUTO 1.3 [facility] Lymphocytes/100 WBC (Bld) 19.8 % Low 20.5 - 60.0 % [facility] MCH (RBC) [Entitic mass] 31.4 pg 26.7 - 34.0 pg [facility] MCHC (RBC) [Mass/Vol] 32.4 g/dL 29.9 - 35.2 g/dL [facility] MCV (RBC) [Entitic vol] 96.9 fL 81.0 - 99.0 fL [facility] MONOCYTES ABSOLUTE AUTO 0.3 [facility] Monocytes/100 WBC (Bld) 4.3 % 1.7 - 12.0 % [facility] NEUTROPHILS ABSOLUTE AUTO 5 [facility] Neutrophils/100 WBC (Bld) 74.9 % 43.0 - 75.0 % [facility] Platelet mean volume (Bld) [Entitic vol] 10.8 fL 9.5 - 13.5 fL [facility] EO # 0 [facility] [address]T 138 Low [facility] RBC 2.55 Low [facility] WBC 6.7 [facility] CBC WITH PLATELET NO DI FFERENTIALon 06-18-2024 Erythrocyte distribution width (RBC) [Ratio] 13.6 % 11.0 - 15.0 % [facility] Hematocrit (Bld) [Volume fraction] 31.1 % Low 36.0 - 48.0 % [facility] Hemoglobin (Bld) [Mass/Vol] 10.6 g/dL Low 12.0 - 16.0 g/dL [facility] Interpretation and review of laboratory results Abnormal [facility] MCH (RBC) [Entitic mass] 31.6 pg 26.7 - 34.0 pg [facility] MCHC (RBC) [Mass/Vol] 34.1 g/dL 29.9 - 35.2 g/dL [facility] MCV (RBC) [Entitic vol] 92.8 fL 81.0 - 99.0 fL [facility] Platelet mean volume (Bld) [Entitic vol] 11.6 fL 9.5 - 13.5 fL [facility] PLT 211 [facility] RBC 3.35 Low [facility] WBC 9.3 [facility] Urinalysis macro (dipstick) panel (U)on 06-16-2024 Bilirubin, UA Negative Negative - 4(70) +++ mg/dL [facility] Blood, UA Negative Negative - 50 Marcus/mcL [facility] Clarity, UA Clear [facility] re Color, UA Yellow [facility] e Glucose, UA Negative Negative - 1999(110) ++++ mg/dL [facility] Interpretation and review of laboratory results Normal [facility] Ketones, UA Negative Negative - 160(16) ++++ mg/dL [facility] Leukocytes, UA Negative Negative - 500+++ Henrique/mcL [facility] Nitrite, UA Negative Negative - Positive [facility] pH, UA 7 5 - 9 [facility] e Protein, UA Negative Negative - 1999(20) ++++ mg/dL [facility] Spec Grav, UA 1.025 1 - 1.03 [facility] Urobilinogen, UA 1.0 0.2 - 12 mg/dL [facility] ALL MISCELLANEOUS TESTon MISCELLANEOUS TEST COMMENT . [facility] Comment on above: Test Ordered: [id number] Strep Gp B SUJATA+Rflx Strep Gp B SUJATA+Rflx Negative CB Reference Range: Negative Centers for Disease Control and Prevention (CDC) and [place] [employer] Obstetricians and Gynecologists (ACOG) guidelines [...] resistance to clindamycin is noted. Performed at: [facility] [id number] Slag Skimmer: Guillermo Gu PhD, Phone: [phone] VAG/REC [id number] Group B Streptococcus Colonization Detection, SUJATA With Refle [facility] e Urinalysis macro (dipstick) panel (U)on 06-10-2024 Bilirubin, UA Negative Negative - 4(70) +++ mg/dL [facility] Blood, UA Negative Negative - 50 Marcus/mcL [facility] Clarity, UA Clear [facility] re Color, UA Yellow [facility] e Glucose, UA Negative Negative - 1999(110) ++++ mg/dL [facility] Interpretation and review of laboratory results Abnormal [facility] Ketones, UA Positive Negative - 160(16) ++++ mg/dL [facility] Comment on above: trace Leukocytes, UA Negative Negative - 500+++ Henrique/mcL [facility] Nitrite, UA Negative Negative - Positive [facility] pH, UA 5.5 5 - 9 [facility], [facility]A Trace Negative - 1999(20) ++++ mg/dL [facility] Spec Grav, UA 1.03 1 - 1.03 [facility] Urobilinogen, UA 1.0 0.2 - 12 mg/dL [facility] Urinalysis macro (dipstick) panel (U)on 05-25-2024 Bilirubin, UA Negative Negative - 4(70) +++ mg/dL [facility] Blood, UA Negative Negative - 50 Marcus/mcL [facility] Healthcare Clarity, UA Clear [facility] re Color, UA Yellow [facility] Glucose, UA Negative Negative - 1999(110) ++++ mg/dL [facility] Interpretation and review of laboratory results Normal [facility] Ketones, UA Negative Negative - 160(16) ++++ mg/dL [facility] Leukocytes, UA Negative Negative - 500+++ Henrique/mcL [facility] Nitrite, UA Negative Negative - Positive [facility] pH, UA 5.5 5 - [address] [facility] e Protein, UA Negative Negative - 1999(20) ++++ mg/dL [facility] Spec Grav, UA 1.03 1 - 1.03 [facility] Urobilinogen, UA 0.2 0.2 - 12 mg/dL [facility] Urinalysis macro (dipstick) panel (U)on 05-06-2024 Bilirubin, UA Positive Negative - 4(70) +++ mg/dL [facility] Comment on above: small Blood, UA Negative Negative - 50 Marcus/mcL [facility] Clarity, UA Clear [facility] re Color, UA Yellow [facility] Glucose, UA Negative Negative - 1999(110) ++++ mg/dL [facility] Interpretation and review of laboratory results Abnormal [facility] Ketones, UA Negative Negative - 160(16) ++++ mg/dL [facility] Leukocytes, UA Negative Negative - 500+++ Henrique/mcL [facility] Nitrite, UA Negative Negative - Positive [facility] pH, UA 5.5 5 - [address] [facility] Health[facility] e Protein, UA Negative Negative - 1999(20) ++++ mg/dL [facility] Spec Grav, UA 1.03 1 - 1.03 [facility] Urobilinogen, UA 1.0 0.2 - 12 mg/dL [facility] ALL CBC WITH AUTO DIFFon BASOPHILS ABSOLUTE AUTO 0 [facility] Basophils/100 WBC (Bld) 0.2 % 0.2 - 2.0 % [facility] Eosinophils/100 WBC (Bld) 1.7 % 0.9 - 7.0 % [facility] Erythrocyte distribution width (RBC) [Ratio] 12.8 % 11.0 - 15.0 % [facility] Hematocrit (Bld) [Volume fraction] 33.8 % Low 36.0 - 48.0 % [facility] Hemoglobin (Bld) [Mass/Vol] 11.6 g/dL Low 12.0 - 16.0 g/dL [facility] IMMATURE GRANULOCYTES ABS AUTO 0.06 High [facility] Immature granulocytes/100 WBC (Bld) 0.6 % High 0.0 - 0.5 % [facility] Interpretation and review of laboratory results Abnormal [facility] LYMPHOCYTES ABSOLUTE AUTO 3.1 [facility] Lymphocytes/100 WBC (Bld) 31.7 % 20.5 - 60.0 % [facility] MCH (RBC) [Entitic mass] 32 pg 26.7 - 34.0 pg [facility] MCHC (RBC) [Mass/Vol] 34.3 g/dL 29.9 - 35.2 g/dL [facility] MCV (RBC) [Entitic vol] 93.1 fL 81.0 - 99.0 fL [facility] MONOCYTES ABSOLUTE AUTO 0.5 [facility] Monocytes/100 WBC (Bld) 5.1 % 1.7 - 12.0 % [facility] NEUTROPHILS ABSOLUTE AUTO 5.9 [facility] Neutrophils/100 WBC (Bld) 60.7 % 43.0 - 75.0 % [facility] Platelet mean volume (Bld) [Entitic vol] 10.2 fL 9.5 - 13.5 fL [facility] TBH EO # 0.2 [facility] Healthcar e TB PLT [address] [facility] e TB RBC 3.63 Low [facility] Health[facility] e TBH WBC 9.6 [facility] Health[facility] e Urinalysis macro (dipstick) panel (U)on 04-07-2024 Bilirubin, UA Negative Negative - 4(70) +++ mg/dL [facility] Blood, UA Negative Negative - 50 Marcus/mcL [facility] Clarity, UA Clear [facility] re Color, UA Yellow [facility] Health[facility] e Glucose, UA Negative Negative - 2000(110) ++++ mg/dL [facility] Interpretation and review of laboratory results Normal [facility] Ketones, UA Negative Negative - 160(16) ++++ mg/dL [facility] Leukocytes, UA Negative Negative - 500+++ Henrique/mcL [facility] Nitrite, UA Negative Negative - Positive [facility] pH, UA 6.5 5 - 9 [facility] e Protein, UA Negative Negative - 2000(20) ++++ mg/dL [facility] Spec Grav, UA 1.025 1 - 1.03 [facility] Urobilinogen, UA 1.0 0.2 - 12 mg/dL [facility] e ALL CBC WITH AUTO DIFFon BASOPHILS ABSOLUTE AUTO 0.0 [facility] Basophils/100 WBC (Bld) 0.4 % 0.2 - 2.0 % [facility] Eosinophils/100 WBC (Bld) 0.9 % 0.9 - 7.0 % [facility] Erythrocyte distribution width (RBC) [Ratio] 13.3 % 11.0 - 15.0 % [facility] Hematocrit (Bld) [Volume fraction] 29.9 % Low 36.0 - 48.0 % [facility] Hemoglobin (Bld) [Mass/Vol] 10.3 g/dL Low 12.0 - 16.0 g/dL [facility] IMMATURE GRANULOCYTES ABS AUTO 0.10 High [facility] Immature granulocytes/100 WBC (Bld) 1.1 % High 0.0 - 0.5 % [facility] Interpretation and review of laboratory results Abnormal [facility] LYMPHOCYTES ABSOLUTE AUTO 3.2 [facility] Lymphocytes/100 WBC (Bld) 34.2 % 20.5 - 60.0 % [facility] MCH (RBC) [Entitic mass] 32.4 pg 26.7 - 34.0 pg [facility] MCHC (RBC) [Mass/Vol] 34.4 g/dL 29.9 - 35.2 g/dL [facility] MCV (RBC) [Entitic vol] 94.0 fL 81.0 - 99.0 fL [facility] MONOCYTES ABSOLUTE AUTO 0.4 [facility] Monocytes/100 WBC (Bld) 4.7 % 1.7 - 12.0 % [facility] NEUTROPHILS ABSOLUTE AUTO 5.5 [facility] Neutrophils/100 WBC (Bld) 58.7 % 43.0 - 75.0 % [facility] Platelet mean volume (Bld) [Entitic vol] 9.9 fL 9.5 - 13.5 fL [facility] TBH EO # 0.1 [facility] TB PLT 209 [facility] TB RBC 3.18 Low [facility] Health[facility] e TBH WBC 9.[address] [facility] e [facility] Health[facility] e Urinalysis macro (dipstick) panel (U)on 03-09-2024 Bilirubin, UA Negative Negative - 4(70) +++ mg/dL [facility] Blood, UA Negative Negative - 50 Marcus/mcL [facility] Clarity, UA Clear [facility] re Color, UA Yellow [facility] e Glucose, UA Negative Negative - 1999(110) ++++ mg/dL [facility] Interpretation and review of laboratory results Abnormal [facility] Ketones, UA Positive Negative - 160(16) ++++ mg/dL [facility] Comment on above: trace Leukocytes, UA Negative Negative - 500+++ Henrique/mcL [facility] Nitrite, UA Negative Negative - Positive [facility] pH, UA 6.5 5 - 9 [facility] e Protein, UA Negative Negative - 1999(20) ++++ mg/dL [facility] Spec Grav, UA 1.030 1 - 1.03 [facility] Urobilinogen, UA 1.0 0.2 - 12 mg/dL [facility] HCG ( test) Ql (U)o n 11-10-2023 Beta HCG ( test) Ql (U) Positive Abnormal NEG [facility] Comment on above: Performed By: #### 2 106-3 #### [facility] ([id number]) [address] [place] [address] URN MACROSCOPIC NURon 2023 BILIRUBIN [place] Negative Normal NEG [facility] Comment on above: Performed By: #### N UM #### [facility] ([id number]) [address] [place] [address] BLOOD/HGB [place] Trace Abnormal NEG [facility] Comment on above: Performed By: #### N UM #### [facility] ([id number]) [address] [place] [address] [place] [address] GLUCOSE [place] Negative Normal NEG [facility] Comment on above: Performed By: #### N UM #### [facility] ([id number]) [address] [place] [address] [place] [address] KETONES [place] Trace Abnormal NEG [facility] Comment on above: Performed By: #### N UM #### [facility] ([id number]) [address] [place] [address] [place] [address] LEUKOCYTE ESTERASE [place] Small Abnormal NEG [facility] Comment on above: Performed By: #### N UM #### [facility] ([id number]) [address] [place] [address] [place] [address] NITRITE [place] Negative Normal NEG [facility] Comment on above: Performed By: #### N UM #### [facility] ([id number]) [address] [place] [address] PH [place] 6.0 Normal 5.0-8.5 [facility] Comment on above: Performed By: #### N UM #### [facility] ([id number]) [address] [place] [address] [place] [address] PROTEIN [place] Negative Normal NEG [facility] Comment on above: Performed By: #### N UM #### [facility] ([id number]) [address] [place] [address] [place] [address] SPECIFIC GRAVITY [place] 1.025 Normal 1.003-1.035 [facility] Comment on above: Performed By: #### N UM #### [facility] ([id number]) [address] [place] [address] [place] [address] UROBILINOGEN [place] 2.0 eu/dL High <1.[address] [facility] Comment on above: Performed By: #### N UM #### [facility] ([id number]) [address] [facility], [place] [address] SARS/FLU A+B/RSV by NAAT/Mol devin 08-14-2023 SARS/FLU A+B/RSV by NAAT/Molecular FLU A [...] operators who are performing tests using either Cap[employer] or [employer] systems and is limited to laboratories that [...] repeat. Fact Sheet for Healthcare Providers: https://www.fda.gov /media/576820/downl oad Fact Sheet for Patients: https://www.fda.gov /media/898520/downl oad Normal [facility] Comment on above: Performed By: #### C OVFLR #### [facility] ([id number]) [address] [place] [address], [place] [address] VITAMIN B1-THIAMINE WHOLE BL Don 12-20-2022 VITAMIN B1-THIAMINE WHOLE BLD 142.2 nmol/L Normal 66.5-200.0 [facility] Comment on above: Order Comment: FAX R ESULTS TO DR FLORENCE: [phone] Result Comment: This test was developed and its performance characteristics determined by [employer]. It has not been cleared or approved by the Food and Drug Administration. Performed at: [address] [id number] Slag Skimmer: Estuardo Michelle MD, Phone: [phone] This test was developed and its performance characteristics determined by [employer]. It has not been cleared or approved by the Food and Drug Administration. Performed By: #### V ITB1, ZINC #### [facility] [address] [place] [address] #### B12, FOL, CMP, PREALB, ANDREZ, CBCD #### [facility] [address] [place] [address] ZINC, PLASMAon 12-18-2022 ZINC, PLASMA 86 ug/dL Normal 44-115 [facility] Comment on above: Order Comment: FAX R ESULTS TO DR FLORENCE: [phone] Result Comment: This test was developed and its performance characteristics determined by [employer]. It has not been cleared or approved by the Food and Drug Administration. Detection Limit = 5 Performed at: [address] [id number] Slag Skimmer: Estuardo Michelle MD, Phone: [phone] This test was developed and its performance characteristics determined by [employer]. It has not been cleared or approved by the Food and Drug Administration. Performed By: #### V ITB1, ZINC #### [facility] [address] [place] [address] #### B12, FOL, CMP, PREALB, ANDREZ, CBCD #### [facility] [address] [place] [address] CBC with DIFFERENTIALon 11-29 Basophils (Bld) [#/Vol] 0.0 10*3/uL Normal 0.0-0.1 [facility] Comment on above: Order Comment: FAX R ESULTS TO DR FLORENCE: [phone] Performed By: #### V ITB1, ZINC #### [facility] [address] [place] [address] #### B12, FOL, CMP, PREALB, ANDREZ, CBCD #### [facility] [address] [place] [address] Basophils/100 WBC (Bld) 0.5 % Normal 0.0-1.0 [facility] Comment on above: Order Comment: FAX R ESULTS TO DR FLORENCE: [phone] Performed By: #### V ITB1, ZINC #### [facility] [address] [place] [address] #### B12, FOL, CMP, PREALB, ANDREZ, CBCD #### [facility] [address] [place] [address] Eosinophils (Bld) [#/Vol] 0.4 10*3/uL Normal 0.0-0.4 [facility] Comment on above: Order Comment: FAX R ESULTS TO DR FLORENCE: [phone] Performed By: #### V ITB1, ZINC #### [facility] [address] [place] [address] #### B12, FOL, CMP, PREALB, ANDREZ, CBCD #### [facility] [address] [place] [address] Eosinophils/100 WBC (Bld) 4.8 % High 1.0-4.0 [facility] Comment on above: Order Comment: FAX R ESULTS TO DR FLORENCE: [phone] Performed By: #### V ITB1, ZINC #### [facility] [address] [place] [address] #### B12, FOL, CMP, PREALB, ANDREZ, CBCD #### [facility] [address] [place] [address] Hematocrit (Bld) [Volume fraction] 41.9 % Normal 37.0-47.0 [facility] Comment on above: Order Comment: FAX R ESULTS TO DR FLORENCE: [phone] Performed By: #### V ITB1, ZINC #### [facility] [address] [place] [address] #### B12, FOL, CMP, PREALB, ANDREZ, CBCD #### [facility] [address] [place] [address] Hemoglobin (Bld) [Mass/Vol] 13.8 g/dL Normal 12.0-16.0 [facility] Comment on above: Order Comment: FAX R ESULTS TO DR FLORENCE: [phone] Performed By: #### V ITB1, ZINC #### [facility] [address] [place] [address] #### B12, FOL, CMP, PREALB, ANDREZ, CBCD #### [facility] [address] [place] [address] IG # 0.0 10*3/uL Normal 0.0-0.1 [facility] Comment on above: Order Comment: FAX R ESULTS TO DR FLORENCE: [phone] Performed By: #### V ITB1, ZINC #### [facility] [address] [place] [address] #### B12, FOL, CMP, PREALB, ANDREZ, CBCD #### [facility] [address] [place] [address] IG % 0.4 % Normal 0.0-1.0 [facility] Comment on above: Order Comment: FAX R ESULTS TO DR FLORENCE: [phone] Performed By: #### V ITB1, ZINC #### [facility] [address] [place] [address] #### B12, FOL, CMP, PREALB, ANDREZ, CBCD #### [facility] [address] [place] [address] Lymphocytes (Bld) [#/Vol] 3.8 10*3/uL Normal 1.3-4.4 [facility] Comment on above: Order Comment: FAX R ESULTS TO DR FLORENCE: [phone] Performed By: #### V ITB1, ZINC #### [facility] [address] [place] [address] #### B12, FOL, CMP, PREALB, ANDREZ, CBCD #### [facility] [address] [place] [address] Lymphocytes/100 WBC (Bld) 45.5 % High 27.0-41.0 [facility] Comment on above: Order Comment: FAX R ESULTS TO DR FLORENCE: [phone] Performed By: #### V ITB1, ZINC #### [facility] [address] [place] [address] #### B12, FOL, CMP, PREALB, ANDREZ, CBCD #### [facility] [address] [place] [address] MCV (RBC) [Entitic vol] 89.3 fL Normal 81.0-99.0 [facility] Comment on above: Order Comment: FAX R ESULTS TO DR FLORENCE: [phone] Performed By: #### V ITB1, ZINC #### [facility] [address] [place] [address] #### B12, FOL, CMP, PREALB, ANDREZ, CBCD #### [facility] [address] [place] [address] MEAN CORPUSCULAR HGB 29.4 pg Normal 27.0-31.0 [facility] Comment on above: Order Comment: FAX R ESULTS TO DR FLORENCE: [phone] Performed By: #### V ITB1, ZINC #### [facility] [address] [place] [address] #### B12, FOL, CMP, PREALB, ANDREZ, CBCD #### [facility] [address] [place] [address] MEAN CORPUSCULAR HGB CONC 32.9 g/dl Low 33.0-37.0 [facility] Comment on above: Order Comment: FAX R ESULTS TO DR FLORENCE: [phone] Performed By: #### V ITB1, ZINC #### [facility] [address] [place] [address] #### B12, FOL, CMP, PREALB, ANDREZ, CBCD #### [facility] [address] [place] [address] Monocytes (Bld) [#/Vol] 0.4 10*3/uL Normal 0.1-1.0 [facility] Comment on above: Order Comment: FAX R ESULTS TO DR FLORENCE: [phone] Performed By: #### V ITB1, ZINC #### [facility] [address] [place] [address] #### B12, FOL, CMP, PREALB, ANDREZ, CBCD #### [facility] [address] [place] [address] Monocytes/100 WBC (Bld) 4.3 % Normal 3.0-9.0 [facility] Comment on above: Order Comment: FAX R ESULTS TO DR FLORENCE: [phone] Performed By: #### V ITB1, ZINC #### [facility] [address] [place] [address] #### B12, FOL, CMP, PREALB, ANDREZ, CBCD #### [facility] [address] [place] [address] Neutrophils (Bld) [#/Vol] 3.7 10*3/uL Normal 2.3-7.9 [facility] Comment on above: Order Comment: FAX R ESULTS TO DR FLORENCE: [phone] Performed By: #### V ITB1, ZINC #### [facility] [address] [place] [address] #### B12, FOL, CMP, PREALB, ANDREZ, CBCD #### [facility] [address] [place] [address] Neutrophils/100 WBC (Bld) 44.5 % Low 47.0-73.0 [facility] Comment on above: Order Comment: FAX R ESULTS TO DR FLORENCE: [phone] Performed By: #### V ITB1, ZINC #### [facility] [address] [place] [address] #### B12, FOL, CMP, PREALB, ANDREZ, CBCD #### [facility] [address] [place] [address] NUCLEATED RED BLOOD CELL 0.0 10*3/uL Normal 0.0-0.0 [facility] Comment on above: Order Comment: FAX R ESULTS TO DR FLORENCE: [phone] Performed By: #### V ITB1, ZINC #### [facility] [address] [place] [address] #### B12, FOL, CMP, PREALB, ANDREZ, CBCD #### [facility] [address] [place] [address] NUCLEATED RED BLOOD CELL 0.0 % Normal 0.0-0.0 [facility] Comment on above: Order Comment: FAX R ESULTS TO DR FLORENCE: [phone] Performed By: #### V ITB1, ZINC #### [facility] [address] [place] [address] #### B12, FOL, CMP, PREALB, ANDREZ, CBCD #### [facility] [address] [place] [address] PLATELET COUNT AUTOMATED 277 10*3/uL Normal 130-400 [facility] Comment on above: Order Comment: FAX R ESULTS TO DR FLORENCE: [phone] Performed By: #### V ITB1, ZINC #### [facility] [address] [place] [address] #### B12, FOL, CMP, PREALB, ANDREZ, CBCD #### [facility] [address] [place] [address] Platelet mean volume (Bld) [Entitic vol] 11.2 fL Normal 9.6-12.3 [facility] Comment on above: Order Comment: FAX R ESULTS TO DR FLORENCE: [phone] Performed By: #### V ITB1, ZINC #### [facility] [address] [place] [address] #### B12, FOL, CMP, PREALB, ANDREZ, CBCD #### [facility] [address] [place] [address] RBC (Bld) [#/Vol] 4.69 10*6/uL Normal 4.10-5.10 [facility] Comment on above: Order Comment: FAX R ESULTS TO DR FLORENCE: [phone] Performed By: #### V ITB1, ZINC #### [facility] [address] [place] [address] #### B12, FOL, CMP, PREALB, ANDREZ, CBCD #### [facility] [address] [place] [address] RED CELL DISTRI WIDTH 13.5 % Normal 0-14.5 [facility] Comment on above: Order Comment: FAX R ESULTS TO DR FLORENCE: [phone] Performed By: #### V ITB1, ZINC #### [facility] [address] [place] [address] #### B12, FOL, CMP, PREALB, ANDREZ, CBCD #### [facility] [address] [place] [address] WBC (Bld) [#/Vol] 8.3 10*3/uL Normal 4.8-10.8 [facility] Comment on above: Order Comment: FAMaximo R STIVENULTS TO DR FLORENCE: [phone] Performed By: #### V ITB1, ZINC #### [facility] [address] [place] [address] #### B12, FOL, CMP, PREALB, ANDREZ, CBCD #### [facility] [address] [place] [address] COMPREHENSIVE METABOLIC PANE Evan 12-14-2022 Albumin [Mass/Vol] 3.8 g/dL Normal 3.4-5.0 [facility] Comment on above: Order Comment: FAX R ESULTS TO DR FLORENCE: [phone] Performed By: #### V ITB1, ZINC #### [facility] [address] [place] [address] #### B12, FOL, CMP, PREALB, ANDREZ, CBCD #### [facility] [address] [place] [address] ALP [Catalytic activity/Vol] 74 U/L Normal 46-116 [facility] Comment on above: Order Comment: FAX R ESULTS TO DR FLORENCE: [phone] Performed By: #### V ITB1, ZINC #### [facility] [address] [place] [address] #### B12, FOL, CMP, PREALB, ANDREZ, CBCD #### [facility] [address] [place] [address] ALT [Catalytic activity/Vol] 34 U/L Normal 10-49 [facility] Comment on above: Order Comment: FAX R ESULTS TO DR FLORENCE: [phone] Performed By: #### V ITB1, ZINC #### [facility] [address] [place] [address] #### B12, FOL, CMP, PREALB, ANDREZ, CBCD #### [facility] [address] [place] [address] AST [Catalytic activity/Vol] 19 U/L Normal 0-34 [facility] Comment on above: Order Comment: FAX R ESULTS TO DR FLORENCE: [phone] Performed By: #### V ITB1, ZINC #### [facility] [address] [place] [address] #### B12, FOL, CMP, PREALB, ANDREZ, CBCD #### [facility] [address] [place] [address] Bilirubin [Mass/Vol] 0.3 mg/dL Normal 0.3-1.2 [facility] Comment on above: Order Comment: FAX R ESULTS TO DR FLORENCE: [phone] Performed By: #### V ITB1, ZINC #### [facility] [address] [place] [address] #### B12, FOL, CMP, PREALB, ANDREZ, CBCD #### [facility] [address] [place] [address] CALCIUM,TOTAL 9.0 md/dL Normal 8.7-10.4 [facility] Comment on above: Order Comment: FAX R ESULTS TO DR FLORENCE: [phone] Performed By: #### V ITB1, ZINC #### [facility] [address] [place] [address] #### B12, FOL, CMP, PREALB, ANDREZ, CBCD #### [facility] [address] [place] [address] Chloride [Moles/Vol] 109 mmol/L High 98-107 [facility] Comment on above: Order Comment: FAX R ESULTS TO DR FLORENCE: [phone] Performed By: #### V ITB1, ZINC #### [facility] [address] [place] [address] #### B12, FOL, CMP, PREALB, ANDREZ, CBCD #### [facility] [address] [place] [address] CO2 [Moles/Vol] 27 mmol/L Normal 20-31 [facility] Comment on above: Order Comment: FAX R ESULTS TO DR FLORENCE: [phone] Performed By: #### V ITB1, ZINC #### [facility] [address] [place] [address] #### B12, FOL, CMP, PREALB, ANDREZ, CBCD #### [facility] [address] [place] [address] Creatinine [Mass/Vol] 0.62 mg/dL Normal 0.55-1.02 [facility] Comment on above: Order Comment: FAX R ESULTS TO DR FLORENCE: [phone] Performed By: #### V ITB1, ZINC #### [facility] [address] [place] [address] #### B12, FOL, CMP, PREALB, ANDREZ, CBCD #### [facility] [address] [place] [address] EST GLOM FILT > 60 Normal [facility] Comment on above: Order Comment: FAX R ESULTS TO DR FLORENCE: [phone] Result Comment: Result Units: mL/min/1.73 m2 Note: [...] By: #### V ITB1, ZINC #### [facility] [address] [place] [address] #### B12, FOL, CMP, PREALB, ANDREZ, CBCD #### [facility] [address] [place] [address] ESTIMATED GLOM FILT RATE > 60 Normal [facility] Comment on above: Order Comment: FAX R ESULTS TO DR FLORENCE: [phone] Performed By: #### V ITB1, ZINC #### [facility] [address] [place] [address] #### B12, FOL, CMP, PREALB, ANDREZ, CBCD #### [facility] [address] [place] [address] Glucose [Mass/Vol] 103 mg/dL High 65-99 [facility] Comment on above: Order Comment: FAX R ESULTS TO DR FLORENCE: [phone] Performed By: #### V ITB1, ZINC #### [facility] [address] [place] [address] #### B12, FOL, CMP, PREALB, ANDREZ, CBCD #### [facility] [address] [place] [address] Potassium [Moles/Vol] 3.6 mmol/L Normal 3.4-5.1 [facility] Comment on above: Order Comment: FAX R ESULTS TO DR FLORENCE: [phone] Performed By: #### V ITB1, ZINC #### [facility] [address] [place] [address] #### B12, FOL, CMP, PREALB, ANDREZ, CBCD #### [facility] [address] [place] [address] Protein [Mass/Vol] 6.5 g/dL Normal 6.0-8.0 [facility] Comment on above: Order Comment: FAX R ESULTS TO DR FLORENCE: [phone] Performed By: #### V ITB1, ZINC #### [facility] [address] [place] [address] #### B12, FOL, CMP, PREALB, ANDREZ, CBCD #### [facility] [address] [place] [address] Sodium [Moles/Vol] 138 mmol/L Normal 136-145 [facility] Comment on above: Order Comment: FAX R ESULTS TO DR FLORENCE: [phone] Performed By: #### V ITB1, ZINC #### [facility] [address] [place] [address] #### B12, FOL, CMP, PREALB, ANDREZ, CBCD #### [facility] [address] [place] [address] Urea nitrogen [Mass/Vol] 8 mg/dL Low 9-23 [facility] Comment on above: Order Comment: FAX R ESULTS TO DR FLORENCE: [phone] Performed By: #### V ITB1, ZINC #### [facility] [address] [place] [address] #### B12, FOL, CMP, PREALB, ANDREZ, CBCD #### [facility] [address] [place] [address] FERRITINon 12-14-2022 Ferritin [Mass/Vol] 40.9 ng/mL Normal 7.3-307.3 [facility] Comment on above: Order Comment: FAX R ESULTS TO DR FLORENCE: [phone] Performed By: #### V ITB1, ZINC #### [facility] [address] [place] [address] #### B12, FOL, CMP, PREALB, ANDREZ, CBCD #### [facility] [address] [place] [address] FOLIC ACIDon 12-14-2022 FOLIC ACID 16.04 ng/mL Normal 5.38-24.00 [facility] Comment on above: Order Comment: FAX R ESULTS TO DR FLORENCE: [phone] Result Comment: 0.35 - 3.7 ng/mL - Folate Deficiency 3.38 - 5.38 ng/mL - Indeterminate > 5.38 ng/mL - Normal Performed By: #### V ITB1, ZINC #### [facility] [address] [place] [address] #### B12, FOL, CMP, PREALB, NADREZ, CBCD #### [facility] [address] [place] [address] PREALBUMINon 12-14-2022 Prealbumin [Mass/Vol] 16 mg/dL Normal 10-40 [facility] Comment on above: Order Comment: FAX R ESULTS TO DR FLORENCE: [phone] Performed By: #### V ITB1, ZINC #### [facility] [address] [place] [address] #### B12, FOL, CMP, PREALB, ANDREZ, CBCD #### [facility] [address] [place] [address] VITAMIN B12on 12-14-2022 Cobalamin (Vitamin B12) [Mass/Vol] 261 pg/mL Normal 211-911 [facility] Comment on above: Order Comment: FAX R CRISTI TO DR FLORENCE: [phone] Result Comment: 247 - 911 pg/mL - Normal, Vitamin B12 Sufficiency Performed By: #### V ITB1, ZINC #### [facility] [address] [place] [address] #### B12, FOL, CMP, PREALB, ANDREZ, CBCD #### [facility] [address] [place] [address] CBC with DIFFERENTIALon Basophils (Bld) [#/Vol] 0.0 10*3/uL Normal 0.0-0.1 [facility] Comment on above: Performed By: #### V ITB1, ZINC #### [facility] [address] [place] [address] #### B12, FOL, CMP, PREALB, ANDREZ, CBCD #### [facility] [address] [place] [address] Basophils/100 WBC (Bld) 0.6 % Normal 0.0-1.0 [facility] Comment on above: Performed By: #### V ITB1, ZINC #### [facility] [address] [place] [address] #### B12, FOL, CMP, PREALB, ANDREZ, CBCD #### [facility] [address] [place] [address] Eosinophils (Bld) [#/Vol] 0.4 10*3/uL Normal 0.0-0.4 [facility] Comment on above: Performed By: #### V ITB1, ZINC #### [facility] [address] [place] [address] #### B12, FOL, CMP, PREALB, ANDREZ, CBCD #### [facility] [address] [place] [address] Eosinophils/100 WBC (Bld) 6.0 % High 1.0-4.0 [facility] Comment on above: Performed By: #### V ITB1, ZINC #### [facility] [address] [place] [address] #### B12, FOL, CMP, PREALB, ANDREZ, CBCD #### [facility] [address] [place] [address] Hematocrit (Bld) [Volume fraction] 42.2 % Normal 37.0-47.0 [facility] Comment on above: Performed By: #### V ITB1, ZINC #### [facility] [address] [place] [address] #### B12, FOL, CMP, PREALB, ANDREZ, CBCD #### [facility] [address] [place] [address] Hemoglobin (Bld) [Mass/Vol] 14.0 g/dL Normal 12.0-16.0 [facility] Comment on above: Performed By: #### V ITB1, ZINC #### [facility] [address] [place] [address] #### B12, FOL, CMP, PREALB, ANDREZ, CBCD #### [facility] [address] [place] [address] IG # 0.0 10*3/uL Normal 0.0-0.1 [facility] Comment on above: Performed By: #### V ITB1, ZINC #### [facility] [address] [place] [address] #### B12, FOL, CMP, PREALB, ANDREZ, CBCD #### [facility] [address] [place] [address] IG % 0.2 % Normal 0.0-1.0 [facility] Comment on above: Performed By: #### V ITB1, ZINC #### [facility] [address] [place] [address] #### B12, FOL, CMP, PREALB, ANDREZ, CBCD #### [facility] [address] [place] [address] Lymphocytes (Bld) [#/Vol] 3.4 10*3/uL Normal 1.3-4.4 [facility] Comment on above: Performed By: #### V ITB1, ZINC #### [facility] [address] [place] [address] #### B12, FOL, CMP, PREALB, ANDREZ, CBCD #### [facility] [address] [place] [address] Lymphocytes/100 WBC (Bld) 53.6 % High 27.0-41.0 [facility] Comment on above: Performed By: #### V ITB1, ZINC #### [facility] [address] [place] [address] #### B12, FOL, CMP, PREALB, ANDREZ, CBCD #### [facility] [address] [place] [address] MCV (RBC) [Entitic vol] 88.5 fL Normal 81.0-99.0 [facility] Comment on above: Performed By: #### V ITB1, ZINC #### [facility] [address] [place] [address] #### B12, FOL, CMP, PREALB, ANDREZ, CBCD #### [facility] [address] [place] [address] MEAN CORPUSCULAR HGB 29.4 pg Normal 27.0-31.0 [facility] Comment on above: Performed By: #### V ITB1, ZINC #### [facility] [address] [place] [address] #### B12, FOL, CMP, PREALB, ANDREZ, CBCD #### [facility] [address] [place] [address] MEAN CORPUSCULAR HGB CONC 33.2 g/dl Normal 33.0-37.0 [facility] Comment on above: Performed By: #### V ITB1, ZINC #### [facility] [address] [place] [address] #### B12, FOL, CMP, PREALB, ANDREZ, CBCD #### [facility] [address] [place] [address] Monocytes (Bld) [#/Vol] 0.3 10*3/uL Normal 0.1-1.0 [facility] Comment on above: Performed By: #### V ITB1, ZINC #### [facility] [address] [place] [address] #### B12, FOL, CMP, PREALB, ANDREZ, CBCD #### [facility] [address] [place] [address]90[address] Monocytes/100 WBC (Bld) 4.8 % Normal 3.0-9.0 [facility] Comment on above: Performed By: #### V ITB1, ZINC #### [facility] [address] [place] [address] #### B12, FOL, CMP, PREALB, ANDREZ, CBCD #### [facility] [address] [place] [address] Neutrophils (Bld) [#/Vol] 2.2 10*3/uL Low 2.3-7.9 [facility] Comment on above: Performed By: #### V ITB1, ZINC #### [facility] [address] [place] [address] #### B12, FOL, CMP, PREALB, ANDREZ, CBCD #### [facility] [address] [place] [address] Neutrophils/100 WBC (Bld) 34.8 % Low 47.0-73.0 [facility] Comment on above: Performed By: #### V ITB1, ZINC #### [facility] [address] [place] [address] #### B12, FOL, CMP, PREALB, ANDREZ, CBCD #### [facility] [address] [place] [address] 11501 NUCLEATED RED BLOOD CELL 0.0 10*3/uL Normal 0.0-0.0 [facility] Comment on above: Performed By: #### V ITB1, ZINC #### [facility] [address] [place] [address] #### B12, FOL, CMP, PREALB, ANDREZ, CBCD #### [facility] [address] [place] [address] NUCLEATED RED BLOOD CELL 0.0 % Normal 0.0-0.0 [facility] Comment on above: Performed By: #### V ITB1, ZINC #### [facility] [address] [place] [address] #### B12, FOL, CMP, PREALB, ANDREZ, CBCD #### [facility] [address] [place] [address] 84860 PLATELET COUNT AUTOMATED 265 10*3/uL Normal 130-400 [facility] Comment on above: Performed By: #### V ITB1, ZINC #### [facility] [address] [place] [address] #### B12, FOL, CMP, PREALB, ANDREZ, CBCD #### [facility] [address] [place] [address]6064 Platelet mean volume (Bld) [Entitic vol] 11.3 fL Normal 9.6-12.3 [facility] Comment on above: Performed By: #### V ITB1, ZINC #### [facility] [address] [place] [address] #### B12, FOL, CMP, PREALB, ANDREZ, CBCD #### [facility] [address] [place] [address]50 RBC (Bld) [#/Vol] 4.77 10*6/uL Normal 4.10-5.10 [facility] Comment on above: Performed By: #### V ITB1, ZINC #### [facility] [address] [place] [address] #### B12, FOL, CMP, PREALB, ANDREZ, CBCD #### [facility] [address] [place] [address]012 RED CELL DISTRI WIDTH 13.9 % Normal 0-14.5 [facility] Comment on above: Performed By: #### V ITB1, ZINC #### [facility] [address] [place] [address] #### B12, FOL, CMP, PREALB, ANDREZ, CBCD #### [facility] [address] [place] [address] 36083 WBC (Bld) [#/Vol] 6.3 10*3/uL Normal 4.8-10.8 [facility] Comment on above: Performed By: #### V ITB1, ZINC #### [facility] [address] [place] [address] #### B12, FOL, CMP, PREALB, ANDREZ, CBCD #### [facility] [address] [place] [address] COMPREHENSIVE METABOLIC PANE [facility] 12-03-2022 Albumin [Mass/Vol] 4.0 g/dL Normal 3.4-5.0 [facility] Comment on above: Performed By: #### V ITB1, ZINC #### [facility] [address] [place] [address] #### B12, FOL, CMP, PREALB, ANDREZ, CBCD #### [facility] [address] [place] [address] 03152 ALP [Catalytic activity/Vol] 69 U/L Normal 46-116 [facility] Comment on above: Performed By: #### V ITB1, ZINC #### [facility] [address] [place] [address] #### B12, FOL, CMP, PREALB, ANDREZ, CBCD #### [facility] [address] [place], [place] [address] ALT [Catalytic activity/Vol] 79 U/L High 10-49 [facility] Comment on above: Performed By: #### V ITB1, ZINC #### [facility] [address] [place] [address] #### B12, FOL, CMP, PREALB, ANDREZ, CBCD #### [facility] [address] [place] [address] AST [Catalytic activity/Vol] 31 U/L Normal 0-34 [facility] Comment on above: Performed By: #### V ITB1, ZINC #### [facility] [address] [place] [address] #### B12, FOL, CMP, PREALB, ANDREZ, CBCD #### [facility] [address] [place] [address] Bilirubin [Mass/Vol] 0.4 mg/dL Normal 0.3-1.2 [facility] Comment on above: Performed By: #### V ITB1, ZINC #### [facility] [address] [place] [address] #### B12, FOL, CMP, PREALB, ANDREZ, CBCD #### [facility] [address] [place] [address]0750 CALCIUM,TOTAL 9.1 md/dL Normal 8.7-10.4 [facility] Comment on above: Performed By: #### V ITB1, ZINC #### [facility] [address] [place] [address] #### B12, FOL, CMP, PREALB, ANDREZ, CBCD #### [facility] [address] [place] [address]30 Chloride [Moles/Vol] 109 mmol/L High 98-107 [facility] Comment on above: Performed By: #### V ITB1, ZINC #### [facility] [address] [place] [address] #### B12, FOL, CMP, PREALB, ANDREZ, CBCD #### [facility] [address] [place] [address] CO2 [Moles/Vol] 25 mmol/L Normal 20-31 [facility] Comment on above: Performed By: #### V ITB1, ZINC #### [facility] [address] [place] [address] #### B12, FOL, CMP, PREALB, ANDREZ, CBCD #### [facility] [address] [place] [address] Creatinine [Mass/Vol] 0.56 mg/dL Normal 0.55-1.02 [facility] Comment on above: Performed By: #### V ITB1, ZINC #### [facility] [address] [place] [address] #### B12, FOL, CMP, PREALB, ANDREZ, CBCD #### [facility] [address] [place] [address] EST GLOM FILT > 60 Normal [facility] Comment on above: Result Comment: Result [...] #### V ITB1, ZINC #### [facility] [address] [place] [address] #### B12, FOL, CMP, PREALB, ANDREZ, CBCD #### [facility] [address] [place] [address] 26761 ESTIMATED GLOM FILT RATE > 60 Normal [facility] Comment on above: Performed By: #### V ITB1, ZINC #### [facility] [address] [place] [address] #### B12, FOL, CMP, PREALB, ANDREZ, CBCD #### [facility] [address] [place] [address] Glucose [Mass/Vol] 103 mg/dL High 65-99 [facility] Comment on above: Performed By: #### V ITB1, ZINC #### [facility] [address] [place] [address] #### B12, FOL, CMP, PREALB, ANDREZ, CBCD #### [facility] [address] [place] [address] 33942 Potassium [Moles/Vol] 3.8 mmol/L Normal 3.4-5.1 [facility] Comment on above: Performed By: #### V ITB1, ZINC #### [facility] [address] [place] [address] #### B12, FOL, CMP, PREALB, ANDREZ, CBCD #### [facility] [address] [place] [address] 95682 Protein [Mass/Vol] 6.7 g/dL Normal 6.0-8.0 [facility] Comment on above: Performed By: #### V ITB1, ZINC #### [facility] [address] [place] [address] #### B12, FOL, CMP, PREALB, ANDREZ, CBCD #### [facility] [address] [place] [address] 57923 Sodium [Moles/Vol] 141 mmol/L Normal 136-145 [facility] Comment on above: Performed By: #### V ITB1, ZINC #### [facility] [address] [place] [address] #### B12, FOL, CMP, PREALB, ANDREZ, CBCD #### [facility] [address] [place] [address] 58183 Urea nitrogen [Mass/Vol] 10 mg/dL Normal 9-23 [facility] Comment on above: Performed By: #### V ITB1, ZINC #### [facility] [address] [place] [address] #### B12, FOL, CMP, PREALB, ANDREZ, CBCD #### [facility] [address] [place] [address] [id number] 12-03-2022 ESTIMATED AVERAGE GLUCOSE 94 Normal [facility] Comment on above: Performed By: #### V ITB1, ZINC #### [facility] [address] [place] [address] #### B12, FOL, CMP, PREALB, ANDREZ, CBCD #### [facility] [address] [place] [address] HbA1c (Bld) [Mass fraction] 4.9 % Normal 4.8-5.6 [facility] Comment on above: Result Comment: Standarization of method based on National Glycohemoglobin Standardization Program (NGSP). HEMOGLOBIN A1c(%) DEGREE of GLUCOSE CONTROL 5.7-6.4% Prediabetes range >6.4% Diagnosis of Diabetes <7% Glycemic control for adults with Diabetes Performed By: #### Winnie ITB1, ZINC #### [facility] [address] [place] [address] #### B12, FOL, CMP, PREALB, ANDREZ, CBCD #### [facility] [address] [place], [place] [address] INSULINon 12-03-2022 INSULIN 14.2 mU/L Normal 2.6-37.6 [facility] Comment on above: Performed By: #### V ITB1, ZINC #### [facility] [address] [place] [address] #### B12, FOL, CMP, PREALB, ANDREZ, CBCD #### [facility] [address] [place], [place] [address] LIPID PANEL CHOLESTEROL/HDLo n 12-03-2022 Cholesterol [Mass/Vol] 113 mg/dL Normal <200 [facility] Comment on above: Performed By: #### V ITB1, ZINC #### [facility] [address] [place] [address] #### B12, FOL, CMP, PREALB, ANDREZ, CBCD #### [facility] [address] [place] [address] Cholesterol in HDL [Mass/Vol] 26 mg/dL Low 40-60 [facility] Comment on above: Performed By: #### V ITB1, ZINC #### [facility] [address] [place] [address] #### B12, FOL, CMP, PREALB, ANDREZ, CBCD #### [facility] [address] [place] [address] Cholesterol in LDL [Mass/Vol] 52 mg/dL Normal 9-159 [facility] Comment on above: Performed By: #### V ITB1, ZINC #### [facility] [address] [place] [address] #### B12, FOL, CMP, PREALB, ANDREZ, CBCD #### [facility] [address] [place] [address] Cholesterol.total/Chol esterol in HDL [Mass ratio] 4.3 {ratio} Normal [facility] Comment on above: Performed By: #### V ITB1, ZINC #### [facility] [address] [place] [address] #### B12, FOL, CMP, PREALB, ANDREZ, CBCD #### [facility] [address] [place] [address] Triglyceride [Mass/Vol] 176 mg/dL High <150 [facility] Comment on above: Result Comment: TRIGLYCERIDE RISK ASSESSMENT: 150-199 mg/dl BORDERLINE HIGH >200 mg//dl HIGH . Performed By: #### V ITB1, ZINC #### [facility] [address] [place] [address] #### B12, FOL, CMP, PREALB, ANDREZ, CBCD #### [facility] [address] [place] [address] VLDL CHOLESTEROL 35 mg/dL Normal 6-40 [facility] Comment on above: Performed By: #### V ITB1, ZINC #### [facility] [address] [place] [address] #### B12, FOL, CMP, PREALB, ANDREZ, CBCD #### [facility] [address] [place] [address] CBC with DIFFERENTIALon 05-0 Basophils (Bld) [#/Vol] 0.0 10*3/uL Normal 0.0-0.1 [facility] Comment on above: Order Comment: FAX R ESULTS TO DR FLORENCE: [phone] Performed By: #### V ITB1, ZINC #### [facility] [address] [place] [address] #### B12, FOL, CMP, PREALB, ANDREZ, CBCD #### [facility] [address] [place] [address]25 Basophils/100 WBC (Bld) 0.3 % Normal 0.0-1.0 [facility] Comment on above: Order Comment: FAX R ESULTS TO DR FLORENCE: [phone] Performed By: #### V ITB1, ZINC #### [facility] [address] [place] [address] #### B12, FOL, CMP, PREALB, ANDREZ, CBCD #### [facility] [address] [place] [address] Eosinophils (Bld) [#/Vol] 0.2 10*3/uL Normal 0.0-0.4 [facility] Comment on above: Order Comment: FAX R ESULTS TO DR FLORENCE: [phone] Performed By: #### V ITB1, ZINC #### [facility] [address] [place] [address] #### B12, FOL, CMP, PREALB, ANDREZ, CBCD #### [facility] [address] [place] [address] Eosinophils/100 WBC (Bld) 3.2 % Normal 1.0-4.0 [facility] Comment on above: Order Comment: FAX R ESULTS TO DR FLORENCE: [phone] Performed By: #### V ITB1, ZINC #### [facility] [address] [place] [address] #### B12, FOL, CMP, PREALB, ANDREZ, CBCD #### [facility] [address] [place] [address] Hematocrit (Bld) [Volume fraction] 43.8 % Normal 37.0-47.0 [facility] Comment on above: Order Comment: FAX R ESULTS TO DR FLORENCE: [phone] Performed By: #### V ITB1, ZINC #### [facility] [address] [place] [address] #### B12, FOL, CMP, PREALB, ANDREZ, CBCD #### [facility] [address] [place] [address]600 Hemoglobin (Bld) [Mass/Vol] 14.3 g/dL Normal 12.0-16.0 [facility] Comment on above: Order Comment: FAX R ESULTS TO DR FLORENCE: [phone] Performed By: #### V ITB1, ZINC #### [facility] [address] [place] [address] #### B12, FOL, CMP, PREALB, ANDREZ, CBCD #### [facility] [address] [place] [address] 805[address] IG # 0.1 10*3/uL Normal 0.0-0.1 [facility] Comment on above: Order Comment: FAX R ESULTS TO DR FLORENCE: [phone] Performed By: #### V ITB1, ZINC #### [facility] [address] [place] [address] #### B12, FOL, CMP, PREALB, ANDREZ, CBCD #### [facility] [address] [place] [address]859 IG % 0.7 % Normal 0.0-1.0 [facility] Comment on above: Order Comment: JENNIFER COLIN TO DR FLORENCE: [phone] Performed By: #### V ITB1, ZINC #### [facility] [address] [place] [address] #### B12, FOL, CMP, PREALB, ANDREZ, CBCD #### [facility] [address] [place] [address] Lymphocytes (Bld) [#/Vol] 3.5 10*3/uL Normal 1.3-4.4 [facility] Comment on above: Order Comment: JENNIFER COLIN TO DR FLORENCE: [phone] Performed By: #### V ITB1, ZINC #### [facility] [address] [place] [address] #### B12, FOL, CMP, PREALB, ANDREZ, CBCD #### [facility] [address] [place] [address] 84458 Lymphocytes/100 WBC (Bld) 46.7 % High 27.0-41.0 [facility] Comment on above: Order Comment: JENNIFER COLIN TO DR FLORENCE: [phone] Performed By: #### V ITB1, ZINC #### [facility] [address] [place] [address] #### B12, FOL, CMP, PREALB, ANDREZ, CBCD #### [facility] [address] [place] [address] 59584 MCV (RBC) [Entitic vol] 88.1 fL Normal 81.0-99.0 [facility] Comment on above: Order Comment: JENNIFER COLIN TO DR FLORENCE: [phone] Performed By: #### V ITB1, ZINC #### [facility] [address] [place] [address] #### B12, FOL, CMP, PREALB, ANDREZ, CBCD #### [facility] [address] [place] [address] 90641 MEAN CORPUSCULAR HGB 28.8 pg Normal 27.0-31.0 [facility] Comment on above: Order Comment: FAX R STIVENULTS TO DR FLORENCE: [phone] Performed By: #### V ITB1, ZINC #### [facility] [address] [place] [address] #### B12, FOL, CMP, PREALB, ANDREZ, CBCD #### [facility] [address] [place] [address] 65478 MEAN CORPUSCULAR HGB CONC 32.6 g/dl Low 33.0-37.0 [facility] Comment on above: Order Comment: FAX R STIVENULTS TO DR FLORENCE: [phone] Performed By: #### V ITB1, ZINC #### [facility] [address] [place] [address] #### B12, FOL, CMP, PREALB, ANDREZ, CBCD #### [facility] [address] [place] [address] 48357 Monocytes (Bld) [#/Vol] 0.3 10*3/uL Normal 0.1-1.0 [facility] Comment on above: Order Comment: FAX R STIVENULTS TO DR FLORENCE: [phone] Performed By: #### V ITB1, ZINC #### [facility] [address] [place] [address] #### B12, FOL, CMP, PREALB, ANDREZ, CBCD #### [facility] [address] [place] [address] 80263 Monocytes/100 WBC (Bld) 4.3 % Normal 3.0-9.0 [facility] Comment on above: Order Comment: FAMaximo R CRISTI TO DR FLORENCE: [phone] Performed By: #### V ITB1, ZINC #### [facility] [address] [place] [address] #### B12, FOL, CMP, PREALB, ANDREZ, CBCD #### [facility] [address] [place] [address] 45315 Neutrophils (Bld) [#/Vol] 3.4 10*3/uL Normal 2.3-7.9 [facility] Comment on above: Order Comment: FAX R ESULTS TO DR FLORENCE: [phone] Performed By: #### V ITB1, ZINC #### [facility] [address] [place] [address] #### B12, FOL, CMP, PREALB, ANDREZ, CBCD #### [facility] [address] [place] [address] 39335 Neutrophils/100 WBC (Bld) 44.8 % Low 47.0-73.0 [facility] Comment on above: Order Comment: FAX R ESULTS TO DR FLORENCE: [phone] Performed By: #### V ITB1, ZINC #### [facility] [address] [place] [address] #### B12, FOL, CMP, PREALB, ANDREZ, CBCD #### [facility] [address] [place] [address] 19753 NUCLEATED RED BLOOD CELL 0.0 10*3/uL Normal 0.0-0.0 [facility] Comment on above: Order Comment: FAX R ESULTS TO DR FLORENCE: [phone] Performed By: #### V ITB1, ZINC #### [facility] [address] [place] [address] #### B12, FOL, CMP, PREALB, ANDREZ, CBCD #### [facility] [address] [place] [address] 28861 NUCLEATED RED BLOOD CELL 0.0 % Normal 0.0-0.0 [facility] Comment on above: Order Comment: FAX R ESULTS TO DR FLORENCE: [phone] Performed By: #### V ITB1, ZINC #### [facility] [address] [place] [address] #### B12, FOL, CMP, PREALB, ANDREZ, CBCD #### [facility] [address] [place] [address] 29923 PLATELET COUNT AUTOMATED 347 10*3/uL Normal 130-400 [facility] Comment on above: Order Comment: FAX R ESULTS TO DR FLORENCE: [phone] Performed By: #### V ITB1, ZINC #### [facility] [address] [place] [address] #### B12, FOL, CMP, PREALB, ANDREZ, CBCD #### [facility] [address] [place] [address] Platelet mean volume (Bld) [Entitic vol] 9.9 fL Normal 9.6-12.3 [facility] Comment on above: Order Comment: FAX R ESULTS TO DR FLORENCE: [phone] Performed By: #### V ITB1, ZINC #### [facility] [address] [place] [address] #### B12, FOL, CMP, PREALB, ANDREZ, CBCD #### [facility] [address] [place] [address] 24814 RBC (Bld) [#/Vol] 4.97 10*6/uL Normal 4.10-5.10 [facility] Comment on above: Order Comment: FAX R ESULTS TO DR FLORENCE: [phone] Performed By: #### V ITB1, ZINC #### [facility] [address] [place] [address] #### B12, FOL, CMP, PREALB, ANDREZ, CBCD #### [facility] [address] [place] [address] 87796 RED CELL DISTRI WIDTH 13.2 % Normal 0-14.5 [facility] Comment on above: Order Comment: FAX R ESULTS TO DR FLORENCE: [phone] Performed By: #### V ITB1, ZINC #### [facility] [address] [place] [address] #### B12, FOL, CMP, PREALB, ANDREZ, CBCD #### [facility] [address] [place] [address] 44802 WBC (Bld) [#/Vol] 7.5 10*3/uL Normal 4.8-10.8 [facility] Comment on above: Order Comment: FAX R ESULTS TO DR FLORENCE: [phone] Performed By: #### V ITB1, ZINC #### [facility] [address] [place] [address] #### B12, FOL, CMP, PREALB, ANDREZ, CBCD #### [facility] [address] [place] [address] COMPREHENSIVE METABOLIC PANE [facility] 11-06-2022 Albumin [Mass/Vol] 4.2 g/dL Normal 3.4-5.0 [facility] Comment on above: Order Comment: FAX R ESULTS TO DR FLORENCE: [phone] Performed By: #### V ITB1, ZINC #### [facility] [address] [place] [address] #### B12, FOL, CMP, PREALB, ANDREZ, CBCD #### [facility] [address] [place] [address] 64341 ALP [Catalytic activity/Vol] 59 U/L Normal 46-116 [facility] Comment on above: Order Comment: JENNIFER R STIVENULTS TO DR FLORENCE: [phone] Performed By: #### V ITB1, ZINC #### [facility] [address] [place] [address] #### B12, FOL, CMP, PREALB, ANDREZ, CBCD #### [facility] [address] [place] [address] 72590 ALT [Catalytic activity/Vol] 30 U/L Normal 10-49 [facility] Comment on above: Order Comment: FAX R ESULTS TO DR FLORENCE: [phone] Performed By: #### V ITB1, ZINC #### [facility] [address] [place] [address] #### B12, FOL, CMP, PREALB, ANDREZ, CBCD #### [facility] [address] [place] [address] AST [Catalytic activity/Vol] 20 U/L Normal 0-34 [facility] Comment on above: Order Comment: FAX R ESULTS TO DR FLORENCE: [phone] Performed By: #### V ITB1, ZINC #### [facility] [address] [place] [address] #### B12, FOL, CMP, PREALB, ANDREZ, CBCD #### [facility] [address] [place] [address] Bilirubin [Mass/Vol] 0.5 mg/dL Normal 0.3-1.2 [facility] Comment on above: Order Comment: FAX R ESULTS TO DR FLORENCE: [phone] Performed By: #### V ITB1, ZINC #### [facility] [address] [place] [address] #### B12, FOL, CMP, PREALB, ANDREZ, CBCD #### [facility] [address] [place] [address] CALCIUM,TOTAL 9.3 md/dL Normal 8.7-10.4 [facility] Comment on above: Order Comment: FAX R ESULTS TO DR FLORENCE: [phone] Performed By: #### V ITB1, ZINC #### [facility] [address] [place] [address] #### B12, FOL, CMP, PREALB, ANDREZ, CBCD #### [facility] [address] [place] [address] Chloride [Moles/Vol] 103 mmol/L Normal 98-107 [facility] Comment on above: Order Comment: FAX R ESULTS TO DR FLORENCE: [phone] Performed By: #### V ITB1, ZINC #### [facility] [address] [place] [address] #### B12, FOL, CMP, PREALB, ANDREZ, CBCD #### [facility] [address] [place] [address] CO2 [Moles/Vol] 23 mmol/L Normal 20-31 [facility] Comment on above: Order Comment: FAX R ESULTS TO DR FLORENCE: [phone] Performed By: #### V ITB1, ZINC #### [facility] [address] [place] [address] #### B12, FOL, CMP, PREALB, ANDREZ, CBCD #### [facility] [address] [place] [address] Creatinine [Mass/Vol] 0.58 mg/dL Normal 0.55-1.02 [facility] Comment on above: Order Comment: FAX R ESULTS TO DR FLORENCE: [phone] Performed By: #### V ITB1, ZINC #### [facility] [address] [place] [address] #### B12, FOL, CMP, PREALB, ANDREZ, CBCD #### [facility] [address] [place] [address] EST GLOM FILT > 60 Normal [facility] Comment on above: Order Comment: FAX R ESULTS TO DR FLORENCE: [phone] Result Comment: Result Units: mL/min/1.73 m2 Note: [...] By: #### V ITB1, ZINC #### [facility] [address] [place] [address] #### B12, FOL, CMP, PREALB, ANDERZ, CBCD #### [facility] [address] [place] [address] ESTIMATED GLOM FILT RATE > 60 Normal [facility] Comment on above: Order Comment: FAX R ESULTS TO DR FLORENCE: [phone] Performed By: #### V ITB1, ZINC #### [facility] [address] [place] [address] #### B12, FOL, CMP, PREALB, ANDREZ, CBCD #### [facility] [address] [place] [address] Glucose [Mass/Vol] 92 mg/dL Normal 65-99 [facility] Comment on above: Order Comment: FAX R ESULTS TO DR FLORENCE: Performed By: #### V ITB1, ZINC #### [facility] [address] [place] [address] #### B12, FOL, CMP, PREALB, ANDREZ, CBCD #### [facility] [address] [place] [address] Potassium [Moles/Vol] 3.9 mmol/L Normal 3.4-5.1 [facility] Comment on above: Order Comment: FAX R ESULTS TO DR FLORENCE: Performed By: #### V ITB1, ZINC #### [facility] [address] [place] [address] #### B12, FOL, CMP, PREALB, ANDREZ, CBCD #### [facility] [address] [place] [address] 42427 Protein [Mass/Vol] 7.3 g/dL Normal 6.0-8.0 [facility] Comment on above: Order Comment: FAX R ESULTS TO DR FLORENCE: Performed By: #### V ITB1, ZINC #### [facility] [address] [place] [address] #### B12, FOL, CMP, PREALB, ANDREZ, CBCD #### [facility] [address] [place] [address] Sodium [Moles/Vol] 137 mmol/L Normal 136-145 [facility] Comment on above: Order Comment: FAX R ESULTS TO DR FLORENCE: Performed By: #### V ITB1, ZINC #### [facility] [address] [place] [address] #### B12, FOL, CMP, PREALB, ANDREZ, CBCD #### [facility] [address] [place] [address] Urea nitrogen [Mass/Vol] 12 mg/dL Normal 9-23 [facility] Comment on above: Order Comment: FAX R ESULTS TO DR FLORENCE: [phone] Performed By: #### V ITB1, ZINC #### [facility] [address] [place] [address] #### B12, FOL, CMP, PREALB, ANDREZ, CBCD #### [facility] [address] [place] [address] Basic Metabolic Panelon 05-0 Anion gap [Moles/Vol] 11 mmol/L Normal 7-16 [facility] Calcium [Mass/Vol] 8.9 mg/dL Normal 8.6-10.2 [facility] Chloride [Moles/Vol] 104 mmol/L Normal 98-107 [facility] CO2 [Moles/Vol] 25 mmol/L Normal 22-[address] [facility] Creatinine [Mass/Vol] 0.6 mg/dL Normal 0.5-1.0 [facility] GFR Calculated >60 Normal >=60 [facility] Comment on above: Result Comment: [...] Center Potassium [Moles/Vol] 4.3 mmol/L Normal 3.5-5.0 [facility] Sodium [Moles/Vol] 140 mmol/L Normal 132-146 [facility] Urea nitrogen [Mass/Vol] 13 mg/dL Normal 6-20 [facility] Basic metabolic 2000 panelon 10-30-2022 Anion gap [Moles/Vol] 11 mmol/L 7 - 16 mmol/L [facility] Calcium [Mass/Vol] 8.9 mg/dL 8.6 - 10. 2 mg/dL [facility] Chloride [Moles/Vol] 104 mmol/L 98 - 10 7 mmol/L [facility] CO2 [Moles/Vol] 25 mmol/L 22 - 29 mmol/L [facility] Creatinine [Mass/Vol] 0.6 mg/dL 0.5 - 1.0 mg/dL [facility] GFR/1.73 sq M.predicted among non-blacks MDRD (S/P/Bld) [Vol rate/Area] mL/min/1.73 60 - PINF mL/min/1.73 [facility] Comment on above: Pediatric calculator [...] 117 mg/dL High 74 - 99 mg/dL [facility] Potassium [Moles/Vol] 4.3 mmol/L 3.5 - 5.0 mmol/L [facility] Sodium [Moles/Vol] 140 mmol/L 132 - 146 mmol/L [facility] Urea nitrogen [Mass/Vol] 13 mg/dL 6 - 20 mg/dL [facility] CBC With Platelet and Differ entialon 10-30-2022 Abs Imm Granulocytes 0.07 E9/L Normal [facility] Absolute Basophils 0.01 E9/L Normal 0.00-0.20 [facility] Absolute Eosinophils 0.00 E9/L Low 0.05-0.50 [facility] Absolute Lymphocytes 1.89 E9/L Normal 1.50-4.00 [facility] Absolute Monocytes 0.73 E9/L Normal 0.10-0.95 [facility] Absolute Neutrophils 9.02 E9/L High 1.80-7.30 [facility] Basophils/100 WBC (Bld) 0.1 % Normal 0.0-2.0 [facility] Eosinophils/100 WBC (Bld) 0.0 % Normal 0.0-6.0 [facility] Hematocrit (Bld) [Volume fraction] 38.2 % Normal 34.0-48.0 [facility] Hemoglobin (Bld) [Mass/Vol] 12.2 g/dL Normal 11.5-15.5 [facility] Imm Granulocytes 0.6 % Normal 0.0-5.0 [facility] Lymphocytes/100 WBC (Bld) 16.1 % Low [...] Center Platelet Count 285 E9/L Normal 130-450 [facility] Platelet mean volume (Bld) [Entitic vol] 10.4 fL Normal 7.0-12.0 [facility] RBC 4.18 E12/L Normal 3.50-5.50 [facility] RDW 13.2 fL Normal 11.5-15.0 [facility] WBC 11.7 E9/L High 4.5-11.5 [facility] CBC with Auto Differentialon 10-30-2022 Basophils (Bld) [#/Vol] 0.01 10*3/uL [facility] Basophils/100 WBC (Bld) 0.1 % 0.0 - 2.0 % [facility] Eosinophils (Bld) [#/Vol] 0.00 10*3/uL Low [facility] Eosinophils/100 WBC (Bld) 0 % 0.0 - 6.0 % [facility] Erythrocyte distribution width (RBC) [Ratio] 13.2 fL 11.5 - 15.0 fL [facility] Hematocrit (Bld) [Volume fraction] 38.2 % 34.0 - 48.0 % [facility] Hemoglobin (Bld) [Mass/Vol] 12.2 g/dL 11.5 - 15.5 g/dL [facility] Immature granulocytes (Bld) [#/Vol] 0.07 10*3/uL E9/L [facility] Immature granulocytes/100 WBC (Bld) 0.6 % 0.0 - 5.0 % [facility] Interpretation and review of laboratory results Abnormal [facility] Lymphocytes (Bld) [#/Vol] 1.89 10*3/uL [facility] Lymphocytes/100 WBC (Bld) 16.1 % Low 20.0 - 42.0 % [facility] MCH (RBC) [Entitic mass] 29.2 pg 26.0 - 35.0 pg [facility] MCHC (RBC) [Mass/Vol] 31.9 % Low 32.0 - 34.5 % [facility] MCV (RBC) [Entitic vol] 91.4 fL 80.0 - 99.9 fL [facility] Monocytes (Bld) [#/Vol] 0.73 10*3/uL [facility] Monocytes/100 WBC (Bld) 6.2 % 2.0 - 12.0 % [facility] Neutrophils (Bld) [#/Vol] 9.02 10*3/uL High [facility] Platelet mean volume (Bld) [Entitic vol] 10.4 fL 7.0 - 12.0 fL [facility] Platelets (Bld) [#/Vol] 285 10*3/uL [facility] RBC (Bld) [#/Vol] 4.18 10*6/uL [facility] Segmented neutrophils/100 WBC (Bld) 77.0 % 43.0 - 80.0 % [facility] WBC (Bld) [#/Vol] 11.7 10*3/uL High [facility] Hepatic Function Panelon Albumin [Mass/Vol] 3.7 g/dL 3.5 - 5.2 g/dL [facility] ALP [Catalytic activity/Vol] 55 U/L 35 - 104 U/L [facility] ALT [Catalytic activity/Vol] 19 U/L 0 - 32 U/L [facility] AST [Catalytic activity/Vol] 14 U/L 0 - 31 U/L [facility] Bilirubin [Mass/Vol] 0.5 mg/dL 0.0 - 1 .2 mg/dL [facility] Bilirubin.direct [Mass/Vol] mg/dL 0.0 - 0.3 mg/dL [facility] Bilirubin.indirect [Mass/Vol] see below 0.0 - 1.0 mg/dL [facility] Comment on above: Indirect Bilirubin c annot be calculated since Total Bilirubin and/or Direct Bilirubin is below measurable range. Protein [Mass/Vol] 6.3 g/dL Low 6.4 - 8.3 g/dL [facility] Hgb A1Con 10-30-2022 HbA1c (Bld) [Mass fraction] 4.8 % Normal 4.0-5.6 [facility] Lipid Panelon 10-30-2022 Cholesterol [Mass/Vol] 99 mg/dL Normal 0-199 [facility] Cholesterol in HDL [Mass/Vol] 34 mg/dL Normal >40 [facility] Cholesterol in LDL [Mass/Vol] 43 mg/dL Normal 0-99 [facility] Triglyceride [Mass/Vol] 108 mg/dL Normal 0-149 [facility] VLDL Cholesterol (Calculated) 22 mg/dL Normal [facility] Cholesterol [Mass/Vol] 99 mg/dL 0 - 1 99 mg/dL [facility] Cholesterol in HDL [Mass/Vol] 34 mg/dL 40 - PINF mg/dL [facility] Cholesterol in LDL [Mass/Vol] 43 mg/dL 0 - 99 mg/dL [facility] Cholesterol in VLDL [Mass/Vol] 22 mg/dL [facility] Triglyceride [Mass/Vol] 108 mg/dL 0 - 149 mg/dL [facility] Liver Panelon 10-30-2022 Albumin [Mass/Vol] 3.7 g/dL Normal 3.5-5.2 [facility] ALP [Catalytic activity/Vol] 55 U/L Normal 35-104 [facility] ALT [Catalytic activity/Vol] 19 U/L Normal 0-32 [facility] AST [Catalytic activity/Vol] 14 U/L Normal 0-31 [facility] Bilirubin [Mass/Vol] 0.5 mg/dL Normal 0.0-1.2 [facility] Bilirubin Indirect see below Normal 0.0-1.0 [facility] [...] Magnesium [Mass/Vol] 1.7 mg/dL Normal 1.6-2.6 [facility] Magnesium [Mass/Vol] 1.7 mg/dL 1.6 - 2 .6 mg/dL [facility] No Panel Informationon 10-30 Interpretation and review of laboratory results Abnormal [facility] POCT Glucoseon 10-30-2022 Glucose [Mass/Vol] 111 mg/dL High 74 - 99 mg/dL [facility] Interpretation and review of laboratory results Abnormal [facility] Phosphoruson 10-30-2022 Phosphate [Mass/Vol] 4.0 mg/dL Normal 2.5-4.5 [facility] Phosphate [Mass/Vol] 4.0 mg/dL 2.5 - 4 .5 mg/dL [facility] T4, Freeon 10-30-2022 Free T4 [Mass/Vol] 1.32 ng/dL 0.93 - 1. 70 ng/dL [facility] TSHon 10-30-2022 TSH [Mass/Vol] 0.828 [facility] [employer] TSH w/out Reflexon TSH w/out Reflex 0.828 uIU/mL Normal 0.270-4.200 [facility] Thyroxine Freeon 10-30-2022 Thyroxine Free 1.32 ng/dL Normal 0.93-1.70 [facility] Comprehensive Metabolic Pane evan 10-29-2022 Potassium see note Critically abnormal 3.5-5.0 [facility] Comment on above: Result Comment: Dupl icate order. Made no charge to patient for testing Corrected result; previously reported as 4.3 on 10/24/2022 at 19:57 by JESUS Hemoglobin A1con 10-29-2022 HbA1c (Bld) [Mass fraction] 5.1 % 4.0 - 5.6 % [facility] [employer] Hgb A1Con 10-29-2022 HbA1c (Bld) [Mass fraction] [...] [facility] No Panel Informationon 10-29 [facility] Urine Qualon 0 10-29-2022 Beta HCG ( test) Ql (U) Negative Negative [facility] Work Phone: Beta HCG ( test) Ql (U) [id number] [facility] [employer] Work Phone: Negative QC Pass/Fail Pass [facility] [employer] Work Phone: Positive QC Pass/Fail Pass [facility] [employer] Phone: POCT Glucoseon 10-29-2022 Glucose [Mass/Vol] 128 mg/dL High 74 - 99 mg/dL [facility] Interpretation and review of laboratory results Abnormal [facility] Glucose [Mass/Vol] 146 mg/dL High 74 - 99 mg/dL [facility] Interpretation and review of laboratory results Abnormal [facility] Glucose [Mass/Vol] 104 mg/dL High 74 - 99 mg/dL [facility] Interpretation and review of laboratory results Abnormal [facility] Glucose [Mass/Vol] 101 mg/dL High 74 - 99 mg/dL [facility] Interpretation and review of laboratory results Abnormal [facility] Surgical Specimenon 10-30-19 23 Surgical Specimen [place] [address] FINAL SURGICAL PATHOLOGY REPORT NAME: BATOOL KINGSLEY Date of 10/29/2022 Collection: Medical Record [id number] Date of 10/29/2022 Number: Receipt: Age: 22 Y Sex: F Date 10/31/2022 12:02 Reported: Date Of : 2000 [facility] [id number] Admitting DERIC FLORENCE Number: Physician: Patient DIS [id number] Ordering DERIC FLORENCE Location: Physician: Accession Number: [...] lesions are not present. Sectioning is unremarkable. [employer] sections are submitted. Block label A1. (CEM) CODES: [id number]; Department of Pathology Page 1 of 1 Normal [facility] CBC (Hemogram)on 10-24-2022 Erythrocyte distribution width (RBC) [Ratio] 13.7 fL 11.5 - 15.0 fL [facility] Hematocrit (Bld) [Volume fraction] 43.9 % 34.0 - 48.0 % [facility] Hemoglobin (Bld) [Mass/Vol] 14.3 g/dL 11.5 - 15.5 g/dL [facility] MCH (RBC) [Entitic mass] 28.9 pg 26.0 - 35.0 pg [facility] MCHC (RBC) [Mass/Vol] 32.6 % 32.0 - 34.5 % [facility] MCV (RBC) [Entitic vol] 88.9 fL 80.0 - 99.9 fL [facility] Platelet mean volume (Bld) [Entitic vol] 10.6 fL 7.0 - 12.0 fL [facility] Platelets (Bld) [#/Vol] 321 10*3/uL [facility] RBC (Bld) [#/Vol] 4.94 10*6/uL [facility] WBC (Bld) [#/Vol] 7.0 10*3/uL [facility] CBC With Platelet No Differe ntialon [...] Center Platelet Count 321 E9/L Normal 130-450 [facility] Platelet mean volume (Bld) [Entitic [...] Anion gap [Moles/Vol] 12 mmol/L Normal 7-16 [facility] AST [Catalytic activity/Vol] 16 U/L Normal 0-31 [facility] Bilirubin [Mass/Vol] 0.4 mg/dL Normal 0.0-1.2 [facility] Calcium [Mass/Vol] 9.3 mg/dL Normal 8.6-10.2 [facility] Chloride [Moles/Vol] 104 mmol/L Normal 98-107 [facility] CO2 [Moles/Vol] 24 mmol/L Normal 22-[address] [facility] Creatinine [Mass/Vol] 0.6 mg/dL Normal 0.5-1.0 [facility] GFR Calculated >60 Normal >=60 [facility] Comment on above: Result Comment: [...] Center Magnesium [Moles/Vol] 4.3 mmol/L Normal 3.5-5.0 [facility] Protein [Mass/Vol] 7.6 g/dL Normal 6.4-8.3 [facility] Sodium [Moles/Vol] 140 mmol/L Normal 132-146 [facility] Urea nitrogen [Mass/Vol] 13 mg/dL Normal 6-20 [facility] Comprehensive metabolic 2000 panelon 10-24-2022 Potassium [Moles/Vol] 4.3 mmol/L 3.5 - 5.0 mmol/L [facility] Albumin [Mass/Vol] 4.6 g/dL 3.5 - 5.2 g/dL [facility] ALP [Catalytic activity/Vol] 69 U/L 35 - 104 U/L [facility] ALT [Catalytic activity/Vol] 27 U/L 0 - 32 U/L [facility] Anion gap [Moles/Vol] 12 mmol/L 7 - 16 mmol/L [facility] AST [Catalytic activity/Vol] 16 U/L 0 - 31 U/L [facility] Bilirubin [Mass/Vol] 0.4 mg/dL 0.0 - 1 .2 mg/dL [facility] Calcium [Mass/Vol] 9.3 mg/dL 8.6 - 10. 2 mg/dL [facility] Chloride [Moles/Vol] 104 mmol/L 98 - 10 7 mmol/L [facility] CO2 [Moles/Vol] 24 mmol/L 22 - 29 mmol/L [facility] Creatinine [Mass/Vol] 0.6 mg/dL 0.5 - 1.0 mg/dL [facility] GFR/1.73 sq M.predicted among non-blacks MDRD (S/P/Bld) [Vol rate/Area] mL/min/1.73 60 - PINF mL/min/1.73 [facility] Comment on above: Pediatric calculator [...] [Mass/Vol] 79 mg/dL 74 - 99 mg/dL [facility] Potassium [Moles/Vol] 4.3 mmol/L 3.5 - 5.0 mmol/L [facility] Protein [Mass/Vol] 7.6 g/dL 6.4 - 8.3 g/dL [facility] Sodium [Moles/Vol] 140 mmol/L 132 - 146 mmol/L [facility] Urea nitrogen [Mass/Vol] 13 mg/dL 6 - 20 mg/dL [facility] ACT PARTIAL THROMBO TIMEon 0 - ACT PARTIAL THROMBO TIME 30.4 SECONDS Normal 20.0-32.1 [facility] Comment on above: Result Comment: APTT THERAPEUTIC RANGE = 43.6 TO 68.4 SECONDS Performed By: #### V ITB1, ZINC #### [facility] [address] [place] [address] #### B12, FOL, CMP, PREALB, ANDREZ, CBCD #### [facility] [address] [place] [address] [phone] CBC with DIFFERENTIALon 04-0 Basophils (Bld) [#/Vol] 0.0 10*3/uL Normal 0.0-0.1 [facility] Comment on above: Performed By: #### V ITB1, ZINC #### [facility] [address] [place] [address] #### B12, FOL, CMP, PREALB, ANDREZ, CBCD #### [facility] [address] [place] [address] [phone] Basophils/100 WBC (Bld) 0.5 % Normal 0.0-1.0 [facility] Comment on above: Performed By: #### V ITB1, ZINC #### [facility] [address] [place] [address] #### B12, FOL, CMP, PREALB, ANDREZ, CBCD #### [facility] [address] [place] [address] Eosinophils (Bld) [#/Vol] 0.3 10*3/uL Normal 0.0-0.4 [facility] Comment on above: Performed By: #### V ITB1, ZINC #### [facility] [address] [place] [address] #### B12, FOL, CMP, PREALB, ANDREZ, CBCD #### [facility] [address] [place] [address] 84720 Eosinophils/100 WBC (Bld) 4.1 % High 1.0-4.0 [facility] Comment on above: Performed By: #### V ITB1, ZINC #### [facility] [address] [place] [address] #### B12, FOL, CMP, PREALB, ANDREZ, CBCD #### [facility] [address] [place] [address] 51487 Hematocrit (Bld) [Volume fraction] 40.6 % Normal 37.0-47.0 [facility] Comment on above: Performed By: #### V ITB1, ZINC #### [facility] [address] [place] [address] #### B12, FOL, CMP, PREALB, ANDREZ, CBCD #### [facility] [address] [place] [address] 68370 Hemoglobin (Bld) [Mass/Vol] 13.2 g/dL Normal 12.0-16.0 [facility] Comment on above: Performed By: #### V ITB1, ZINC #### [facility] [address] [place] [address] #### B12, FOL, CMP, PREALB, ANDREZ, CBCD #### [facility] [address] [place] [address] [phone] IG # 0.0 10*3/uL Normal 0.0-0.1 [facility] Comment on above: Performed By: #### V ITB1, ZINC #### [facility] [address] [place] [address] #### B12, FOL, CMP, PREALB, ANDREZ, CBCD #### [facility] [address] [place] [address] IG % 0.5 % Normal 0.0-1.0 [facility] Comment on above: Performed By: #### V ITB1, ZINC #### [facility] [address] [place] [address] #### B12, FOL, CMP, PREALB, ANDREZ, CBCD #### [facility] [address] [place] [address] Lymphocytes (Bld) [#/Vol] 3.2 10*3/uL Normal 1.3-4.4 [facility] Comment on above: Performed By: #### V ITB1, ZINC #### [facility] [address] [place] [address] #### B12, FOL, CMP, PREALB, ANDREZ, CBCD #### [facility] [address] [place] [address] 48756 Lymphocytes/100 WBC (Bld) 41.8 % High 27.0-41.0 [facility] Comment on above: Performed By: #### V ITB1, ZINC #### [facility] [address] [place] [address] #### B12, FOL, CMP, PREALB, ANDREZ, CBCD #### [facility] [address] [place] [address] 24759 MCV (RBC) [Entitic vol] 88.6 fL Normal 81.0-99.0 [facility] Comment on above: Performed By: #### V ITB1, ZINC #### [facility] [address] [place] [address] #### B12, FOL, CMP, PREALB, ANDREZ, CBCD #### [facility] [address] [place] [address] 90344 MEAN CORPUSCULAR HGB 28.8 pg Normal 27.0-31.0 [facility] Comment on above: Performed By: #### V ITB1, ZINC #### [facility] [address] [place] [address] #### B12, FOL, CMP, PREALB, ANDREZ, CBCD #### [facility] [address] [place] [address] MEAN CORPUSCULAR HGB CONC 32.5 g/dl Low 33.0-37.0 [facility] Comment on above: Performed By: #### V ITB1, ZINC #### [facility] [address] [place] [address] #### B12, FOL, CMP, PREALB, ANDREZ, CBCD #### [facility] [address] [place] [address] 96910 Monocytes (Bld) [#/Vol] 0.4 10*3/uL Normal 0.1-1.0 [facility] Comment on above: Performed By: #### V ITB1, ZINC #### [facility] [address] [place] [address] #### B12, FOL, CMP, PREALB, ANDREZ, CBCD #### [facility] [address] [place] [address] 54745 Monocytes/100 WBC (Bld) 5.1 % Normal 3.0-9.0 [facility] Comment on above: Performed By: #### V ITB1, ZINC #### [facility] [address] [place] [address] #### B12, FOL, CMP, PREALB, ANDREZ, CBCD #### [facility] [address] [place] [address] 73128 Neutrophils (Bld) [#/Vol] 3.7 10*3/uL Normal 2.3-7.9 [facility] Comment on above: Performed By: #### V ITB1, ZINC #### [facility] [address] [place] [address] #### B12, FOL, CMP, PREALB, ANDREZ, CBCD #### [facility] [address] [place] [address] 24770 Neutrophils/100 WBC (Bld) 48.0 % Normal 47.0-73.0 [facility] Comment on above: Performed By: #### V ITB1, ZINC #### [facility] [address] [place] [address] #### B12, FOL, CMP, PREALB, ANDREZ, CBCD #### [facility] [address] [place] [address] 58283 NUCLEATED RED BLOOD CELL 0.0 10*3/uL Normal 0.0-0.0 [facility] Comment on above: Performed By: #### V ITB1, ZINC #### [facility] [address] [place] [address] #### B12, FOL, CMP, PREALB, ANDREZ, CBCD #### [facility] [address] [place], [place] [address] NUCLEATED RED BLOOD CELL 0.0 % Normal 0.0-0.0 [facility] Comment on above: Performed By: #### V ITB1, ZINC #### [facility] [address] #### B12, FOL, CMP, PREALB, ANDREZ, CBCD #### [facility] [address] [place] [address] 99110 PLATELET COUNT AUTOMATED 300 10*3/uL Normal 130-400 [facility] Comment on above: Performed By: #### V ITB1, ZINC #### [facility] [address] [place] [address] #### B12, FOL, CMP, PREALB, ANDREZ, CBCD #### [facility] [address] [place] [address] 30454 Platelet mean volume (Bld) [Entitic vol] 10.7 fL Normal 9.6-12.3 [facility] Comment on above: Performed By: #### V ITB1, ZINC #### [facility] [address] [place] [address] #### B12, FOL, CMP, PREALB, ANDREZ, CBCD #### [facility] [address] [place] [address] 85629 RBC (Bld) [#/Vol] 4.58 10*6/uL Normal 4.10-5.10 [facility] Comment on above: Performed By: #### V ITB1, ZINC #### [facility] [address] [place] [address] #### B12, FOL, CMP, PREALB, ANDREZ, CBCD #### [facility] [address] [place] [address] 14204 RED CELL DISTRI WIDTH 13.3 % Normal 0-14.5 [facility] Comment on above: Performed By: #### V ITB1, ZINC #### [facility] [address] [place] [address] #### B12, FOL, CMP, PREALB, ANDREZ, CBCD #### [facility] [address] [place] [address] 90157 WBC (Bld) [#/Vol] 7.6 10*3/uL Normal 4.8-10.8 [facility] Comment on above: Performed By: #### V ITB1, ZINC #### [facility] [address] [place] [address] #### B12, FOL, CMP, PREALB, ANDREZ, CBCD #### [facility] [address] [place] [address] 73119 COMPREHENSIVE METABOLIC PANE Evan 10-04-2022 Albumin [Mass/Vol] 3.8 g/dL Normal 3.4-5.0 [facility] Comment on above: Performed By: #### V ITB1, ZINC #### [facility] [address] [place] [address] #### B12, FOL, CMP, PREALB, ANDREZ, CBCD #### [facility] [address] [place] [address] 10039 ALP [Catalytic activity/Vol] 63 U/L Normal 46-116 [facility] Comment on above: Performed By: #### V ITB1, ZINC #### [facility] [address] [place] [address] #### B12, FOL, CMP, PREALB, ANDREZ, CBCD #### [facility] [address] [place] [address] ALT [Catalytic activity/Vol] 18 U/L Normal 10-49 [facility] Comment on above: Performed By: #### V ITB1, ZINC #### [facility] [address] [place] [address] #### B12, FOL, CMP, PREALB, ANDREZ, CBCD #### [facility] [address] [place] [address] AST [Catalytic activity/Vol] 15 U/L Normal 0-34 [facility] Comment on above: Performed By: #### V ITB1, ZINC #### [facility] [address] [place] [address] #### B12, FOL, CMP, PREALB, ANDREZ, CBCD #### [facility] [address] [place] [address] 78960 Bilirubin [Mass/Vol] 0.3 mg/dL Normal 0.3-1.2 [facility] Comment on above: Performed By: #### V ITB1, ZINC #### [facility] [address] [place] [address] #### B12, FOL, CMP, PREALB, ANDREZ, CBCD #### [facility] [address] [place] [address] 11547 CALCIUM,TOTAL 9.2 md/dL Normal 8.7-10.4 [facility] Comment on above: Performed By: #### V ITB1, ZINC #### [facility] [address] [place] [address] #### B12, FOL, CMP, PREALB, ANDREZ, CBCD #### [facility] [address] [place] [address] 01877 Chloride [Moles/Vol] 105 mmol/L Normal 98-107 [facility] Comment on above: Performed By: #### V ITB1, ZINC #### [facility] [address] [place] [address] #### B12, FOL, CMP, PREALB, ANDREZ, CBCD #### [facility] [address] [place] [address] CO2 [Moles/Vol] 27 mmol/L Normal 20-31 [facility] Comment on above: Performed By: #### V ITB1, ZINC #### [facility] [address] [place] [address] #### B12, FOL, CMP, PREALB, ANDREZ, CBCD #### [facility] [address] [place] [address] Creatinine [Mass/Vol] 0.61 mg/dL Normal 0.55-1.02 [facility] Comment on above: Performed By: #### V ITB1, ZINC #### [facility] [address] [place] [address] #### B12, FOL, CMP, PREALB, ANDREZ, CBCD #### [facility] [address] [place] [address] EST GLOM FILT > 60 Normal [facility] Comment on above: Result Comment: Result [...] #### V ITB1, ZINC #### [facility] [address] [place] [address] #### B12, FOL, CMP, PREALB, ANDREZ, CBCD #### [facility] [address] [place] [address] ESTIMATED GLOM FILT RATE > 60 Normal [facility] Comment on above: Performed By: #### V ITB1, ZINC #### [facility] [address] [place] [address] #### B12, FOL, CMP, PREALB, ANDREZ, CBCD #### [facility] [address] [place] [address] 06938 Glucose [Mass/Vol] 87 mg/dL Normal 65-99 [facility] Comment on above: Performed By: #### V ITB1, ZINC #### [facility] [address] [place] [address] #### B12, FOL, CMP, PREALB, ANDREZ, CBCD #### [facility] [address] [place] [address] 12857 Potassium [Moles/Vol] 4.2 mmol/L Normal 3.4-5.1 [facility] Comment on above: Performed By: #### V ITB1, ZINC #### [facility] [address] [place] [address] #### B12, FOL, CMP, PREALB, ANDREZ, CBCD #### [facility] [address] [place] [address] 47457 Protein [Mass/Vol] 6.9 g/dL Normal 6.0-8.0 [facility] Comment on above: Performed By: #### V ITB1, ZINC #### [facility] [address] [place] [address] #### B12, FOL, CMP, PREALB, ANDREZ, CBCD #### [facility] [address] [place] [address] 59936 Sodium [Moles/Vol] 139 mmol/L Normal 136-145 [facility] Comment on above: Performed By: #### V ITB1, ZINC #### [facility] [address] [place] [address] #### B12, FOL, CMP, PREALB, ANDREZ, CBCD #### [facility] [address] [place] [address] 28207 Urea nitrogen [Mass/Vol] 14 mg/dL Normal 9-23 [facility] Comment on above: Performed By: #### V ITB1, ZINC #### [facility] [address] [place] [address] #### B12, FOL, CMP, PREALB, ANDREZ, CBCD #### [facility] [address] [place] [address] [id number] 10-04-2022 ESTIMATED AVERAGE GLUCOSE 100 Normal [facility] Comment on above: Performed By: #### V ITB1, ZINC #### [facility] [address] [place] [address] #### B12, FOL, CMP, PREALB, ANDREZ, CBCD #### [facility] [address] [place] [address] 52937 HbA1c (Bld) [Mass fraction] 5.1 % Normal 4.8-5.6 [facility] Comment on above: Result Comment: Standarization of method based on National Glycohemoglobin Standardization Program (NGSP). HEMOGLOBIN A1c(%) DEGREE of GLUCOSE CONTROL 5.7-6.4% Prediabetes range >6.4% Diagnosis of Diabetes <7% Glycemic control for adults with Diabetes Performed By: #### V ITB1, ZINC #### [facility] [address] [place] [address] #### B12, FOL, CMP, PREALB, ANDREZ, CBCD #### [facility] [address] [place] [address] LIPID PANEL CHOLESTEROL/HDLo n 10-04-2022 Cholesterol [Mass/Vol] 122 mg/dL Normal <200 [facility] Comment on above: Performed By: #### V ITB1, ZINC #### [facility] [address] [place] [address] #### B12, FOL, CMP, PREALB, ANDREZ, CBCD #### [facility] [address] [place] [address] Cholesterol in HDL [Mass/Vol] 28 mg/dL Low 40-60 [facility] Comment on above: Performed By: #### V ITB1, ZINC #### [facility] [address] [place] [address] #### B12, FOL, CMP, PREALB, ANDREZ, CBCD #### [facility] [address] [place] [address] 40073 Cholesterol in LDL [Mass/Vol] 55 mg/dL Normal 9-159 [facility] Comment on above: Performed By: #### V ITB1, ZINC #### [facility] [address] [place] [address] #### B12, FOL, CMP, PREALB, ANDREZ, CBCD #### [facility] [address] [place] [address] 01109 Cholesterol.total/Chol esterol in HDL [Mass ratio] 4.4 {ratio} Normal [facility] Comment on above: Performed By: #### V ITB1, ZINC #### [facility] [address] [place] [address] #### B12, FOL, CMP, PREALB, ANRDEZ, CBCD #### [facility] [address] [place] [address] 81228 Triglyceride [Mass/Vol] 196 mg/dL High <150 [facility] Comment on above: Result Comment: TRIGLYCERIDE RISK ASSESSMENT: 150-199 mg/dl BORDERLINE HIGH >200 mg//dl HIGH . Performed By: #### V ITB1, ZINC #### [facility] [address] [place] [address] #### B12, FOL, CMP, PREALB, ANDREZ, CBCD #### [facility] [address] [place] [address] 45756 VLDL CHOLESTEROL 39 mg/dL Normal 6-40 [facility] Comment on above: Performed By: #### V ITB1, ZINC #### [facility] [address] [place] [address] #### B12, FOL, CMP, PREALB, ANDREZ, CBCD #### [facility] [address] [place] [address] THROAT CULTUREon 08-15-2022 Throat culture THROAT CULTURE NORMAL ARIN Normal [facility] Comment on above: Performed By: #### V ITB1, ZINC #### [facility] [address] [place] [address] #### B12, FOL, CMP, PREALB, ANDREZ, CBCD #### [facility] [address] [place] [address] NOVL CORONAVIRUS NAAon 08-14 SARS-CoV-2 (COVID-19) RNA SUJATA+probe Ql (Unsp spec) Detected Abnormal Not Detected [facility] Comment on above: Result Comment: Evelyn ents who have a positive COVID-19 test result may now have treatment options. Treatment options are available for patients with mild to moderate symptoms and for hospitalized patients. Visit our website at [email or web address] for resources and information. This nucleic acid amplification test was developed and its performance characteristics determined by [employer]. Nucleic acid amplification tests include RT- PCR [...] #### V ITB1, ZINC #### [facility] [address] [place] [address] #### B12, FOL, CMP, PREALB, ANDREZ, CBCD #### [facility] [address] [place] [address] 85836 CBC with DIFFERENTIALon 08-01 Basophils (Bld) [#/Vol] 0.0 10*3/uL Normal 0.0-0.1 [facility] Comment on above: Performed By: #### V ITB1, ZINC #### [facility] [address] [place] [address] #### B12, FOL, CMP, PREALB, ANDREZ, CBCD #### [facility] [address] [place] [address] 91125 Basophils/100 WBC (Bld) 0.5 % Normal 0.0-1.0 [facility] Comment on above: Performed By: #### V ITB1, ZINC #### [facility] [address] [place] [address] #### B12, FOL, CMP, PREALB, ANDREZ, CBCD #### [facility] [address] [place] [address] 73768 Eosinophils (Bld) [#/Vol] 0.2 10*3/uL Normal 0.0-0.4 [facility] Comment on above: Performed By: #### V ITB1, ZINC #### [facility] [address] [place] [address] #### B12, FOL, CMP, PREALB, ANDREZ, CBCD #### [facility] [address] [place] [address] 78358 Eosinophils/100 WBC (Bld) 4.2 % High 1.0-4.0 [facility] Comment on above: Performed By: #### V ITB1, ZINC #### [facility] [address] [place] [address] #### B12, FOL, CMP, PREALB, ANDREZ, CBCD #### [facility] [address] [place] [address] 52585 Hematocrit (Bld) [Volume fraction] 43.8 % Normal 37.0-47.0 [facility] Comment on above: Performed By: #### V ITB1, ZINC #### [facility] [address] [place] [address] #### B12, FOL, CMP, PREALB, ANDREZ, CBCD #### [facility] [address] [place] [address] 30784 Hemoglobin (Bld) [Mass/Vol] 14.0 g/dL Normal 12.0-16.0 [facility] Comment on above: Performed By: #### V ITB1, ZINC #### [facility] [address] [place] [address] #### B12, FOL, CMP, PREALB, ANDREZ, CBCD #### [facility] [address] [place] [address] 91432 IG # 0.1 10*3/uL Normal 0.0-0.1 [facility] Comment on above: Performed By: #### V ITB1, ZINC #### [facility] [address] [place] [address] #### B12, FOL, CMP, PREALB, ANDREZ, CBCD #### [facility] [address] [place] [address] 95003 IG % 1.1 % High 0.0-1.0 [facility] Comment on above: Performed By: #### V ITB1, ZINC #### [facility] [address] [place] [address] #### B12, FOL, CMP, PREALB, ANDREZ, CBCD #### [facility] [address] [place] [address] 44735 Lymphocytes (Bld) [#/Vol] 2.9 10*3/uL Normal 1.3-4.4 [facility] Comment on above: Performed By: #### V ITB1, ZINC #### [facility] [address] [place] [address] #### B12, FOL, CMP, PREALB, ANDREZ, CBCD #### [facility] [address] [place] [address] 94766 Lymphocytes/100 WBC (Bld) 51.5 % High 27.0-41.0 [facility] Comment on above: Performed By: #### V ITB1, ZINC #### [facility] [address] [place] [address] #### B12, FOL, CMP, PREALB, ADNREZ, CBCD #### [facility] [address] [place] [address] 32959 MCV (RBC) [Entitic vol] 88.8 fL Normal 81.0-99.0 [facility] Comment on above: Performed By: #### V ITB1, ZINC #### [facility] [address] [place] [address] #### B12, FOL, CMP, PREALB, ANDREZ, CBCD #### [facility] [address] [place] [address] 63020 MEAN CORPUSCULAR HGB 28.4 pg Normal 27.0-31.0 [facility] Comment on above: Performed By: #### V ITB1, ZINC #### [facility] [address] [place] [address] #### B12, FOL, CMP, PREALB, ANDREZ, CBCD #### [facility] [address] [place] [address] 90897 MEAN CORPUSCULAR HGB CONC 32.0 g/dl Low 33.0-37.0 [facility] Comment on above: Performed By: #### V ITB1, ZINC #### [facility] [address] [place] [address] #### B12, FOL, CMP, PREALB, ANDREZ, CBCD #### [facility] [address] [place] [address] 46156 Monocytes (Bld) [#/Vol] 0.4 10*3/uL Normal 0.1-1.0 [facility] Comment on above: Performed By: #### V ITB1, ZINC #### [facility] [address] [place] [address] #### B12, FOL, CMP, PREALB, ANDREZ, CBCD #### [facility] [address] [place] [address] 12450 Monocytes/100 WBC (Bld) 7.0 % Normal 3.0-9.0 [facility] Comment on above: Performed By: #### V ITB1, ZINC #### [facility] [address] [place] [address] #### B12, FOL, CMP, PREALB, ANDREZ, CBCD #### [facility] [address] [place] [address] [id number] Neutrophils (Bld) [#/Vol] 2.0 10*3/uL Low 2.3-7.9 [facility] Comment on above: Performed By: #### V ITB1, ZINC #### [facility] [address] [place] [address] #### B12, FOL, CMP, PREALB, ANDREZ, CBCD #### [facility] [address] [place] [address] 48408 Neutrophils/100 WBC (Bld) 35.7 % Low 47.0-73.0 [facility] Comment on above: Performed By: #### V ITB1, ZINC #### [facility] [address] [place] [address] #### B12, FOL, CMP, PREALB, ANDREZ, CBCD #### [facility] [address] [place] [id number] NUCLEATED RED BLOOD CELL 0.0 10*3/uL Normal 0.0-0.0 [facility] Comment on above: Performed By: #### V ITB1, ZINC #### [facility] [address] [place] [address] #### B12, FOL, CMP, PREALB, ANDREZ, CBCD #### [facility] [address] [place] [address] NUCLEATED RED BLOOD CELL 0.0 % Normal 0.0-0.0 [facility] Comment on above: Performed By: #### V ITB1, ZINC #### [facility] [address] [place] [address] #### B12, FOL, CMP, PREALB, ANDREZ, CBCD #### [facility] [address] [place] [address] PLATELET COUNT AUTOMATED 277 10*3/uL Normal 130-400 [facility] Comment on above: Performed By: #### V ITB1, ZINC #### [facility] [address] [place] [address] #### B12, FOL, CMP, PREALB, ANDREZ, CBCD #### [facility] [address] [place] [phone] Platelet mean volume (Bld) [Entitic vol] 10.1 fL Normal 9.6-12.3 [facility] Comment on above: Performed By: #### V ITB1, ZINC #### [facility] [address] [place] [address] #### B12, FOL, CMP, PREALB, ANDREZ, CBCD #### [facility] [address] [place] [address] 09835 RBC (Bld) [#/Vol] 4.93 10*6/uL Normal 4.10-5.10 [facility] Comment on above: Performed By: #### V ITB1, ZINC #### [facility] [address] [place] [address] #### B12, FOL, CMP, PREALB, ANDREZ, CBCD #### [facility] [address] [place] [address] 76085 RED CELL DISTRI WIDTH 13.6 % Normal 0-14.5 [facility] Comment on above: Performed By: #### V ITB1, ZINC #### [facility] [address] [place] [address] #### B12, FOL, CMP, PREALB, ANDREZ, CBCD #### [facility] [address] [place] [address] WBC (Bld) [#/Vol] 5.7 10*3/uL Normal 4.8-10.8 [facility] Comment on above: Performed By: #### V ITB1, ZINC #### [facility] [address] [place] [address] #### B12, FOL, CMP, PREALB, ANDREZ, CBCD #### [facility] [address] [place] [address] CHEST (2 V)on 08-13-2022 CRCXR Name: BATOOL KINGSLEY Phys: KAELA FRENCH CNP : 2000 Age: 22 Sex: F Acct: [id number] Loc: RAD Exam Date: 08/13/2022 Status: REG CLI Radiology No: [id number] Unit No: [id number] EXAM# TYPE/EXAM RESULT [id number] RAD/CHEST (2 V) SEE REPORT INDICATION: Stuffy [...] CC: Technologist: WIN CHRISTIE Transcribed Date/Time: 08/13/2022 (2040) Sole Leveler Machine: OSCAR Printed Date/Time: 08/13/2022 (1197) PAGE 1 Signed Report Normal [facility] COMPREHENSIVE METABOLIC PANE Evan 08-13-2022 Albumin [Mass/Vol] 3.7 g/dL Normal 3.4-5.0 [facility] Comment on above: Performed By: #### V ITB1, ZINC #### [facility] [address] [place] [address] #### B12, FOL, CMP, PREALB, ANDREZ, CBCD #### [facility] [address] [place] [address] 40814 ALP [Catalytic activity/Vol] 56 U/L Normal 46-116 [facility] Comment on above: Performed By: #### V ITB1, ZINC #### [facility] [address] [place] [address] #### B12, FOL, CMP, PREALB, ANDREZ, CBCD #### [facility] [address] [place] [address] 03480 ALT [Catalytic activity/Vol] 21 U/L Normal 10-49 [facility] Comment on above: Performed By: #### V ITB1, ZINC #### [facility] [address] [place] [address] #### B12, FOL, CMP, PREALB, ANDREZ, CBCD #### [facility] [address] [place] [address] 74697 AST [Catalytic activity/Vol] 23 U/L Normal 0-34 [facility] Comment on above: Performed By: #### V ITB1, ZINC #### [facility] [address] [place] [address] #### B12, FOL, CMP, PREALB, ANDREZ, CBCD #### [facility] [address] [place] [address] 96290 Bilirubin [Mass/Vol] mg/dL Low 0.3-1.2 [facility] Comment on above: Performed By: #### V ITB1, ZINC #### [facility] [address] [place] [address] #### B12, FOL, CMP, PREALB, ANDREZ, CBCD #### [facility] [address] [place] [address] 05069 CALCIUM,TOTAL 9.2 md/dL Normal 8.7-10.4 [facility] Comment on above: Performed By: #### V ITB1, ZINC #### [facility] [address] [place] [address] #### B12, FOL, CMP, PREALB, ANDREZ, CBCD #### [facility] [address] [place] [address] Chloride [Moles/Vol] 105 mmol/L Normal 98-107 [facility] Comment on above: Performed By: #### V ITB1, ZINC #### [facility] [address] [place] [address] #### B12, FOL, CMP, PREALB, ANDREZ, CBCD #### [facility] [address] [place] [address] CO2 [Moles/Vol] 25 mmol/L Normal 20-31 [facility] Comment on above: Performed By: #### V ITB1, ZINC #### [facility] [address] [place] [address] #### B12, FOL, CMP, PREALB, ANDREZ, CBCD #### [facility] [address] [place] [address] Creatinine [Mass/Vol] 0.53 mg/dL Low 0.55-1.02 [facility] Comment on above: Performed By: #### V ITB1, ZINC #### [facility] [address] [place] [address] #### B12, FOL, CMP, PREALB, ANDREZ, CBCD #### [facility] [address] [place] [address] EST GLOM FILT > 60 Normal [facility] Comment on above: Result Comment: Result [...] #### V ITB1, ZINC #### [facility] [address] [place] [address] #### B12, FOL, CMP, PREALB, ANDREZ, CBCD #### [facility] [address] [place] [address] 02873 ESTIMATED GLOM FILT RATE > 60 Normal [facility] Comment on above: Performed By: #### V ITB1, ZINC #### [facility] [address] [place] [address] #### B12, FOL, CMP, PREALB, ANDREZ, CBCD #### [facility] [address] [place] [address] 82420 Glucose [Mass/Vol] 81 mg/dL Normal 65-99 [facility] Comment on above: Performed By: #### V ITB1, ZINC #### [facility] [address] [place] [address] #### B12, FOL, CMP, PREALB, ANDREZ, CBCD #### [facility] [address] [place] [address] 96473 Potassium [Moles/Vol] 4.5 mmol/L Normal 3.4-5.1 [facility] Comment on above: Performed By: #### V ITB1, ZINC #### [facility] [address] [place] [address] #### B12, FOL, CMP, PREALB, ANDREZ, CBCD #### [facility] [address] [place] [address] [phone] Protein [Mass/Vol] 7.0 g/dL Normal 6.0-8.0 [facility] Comment on above: Performed By: #### V ITB1, ZINC #### [facility] [address] [place] [address] #### B12, FOL, CMP, PREALB, ANDREZ, CBCD #### [facility] [address] [place] [address] 43746 Sodium [Moles/Vol] 138 mmol/L Normal 136-145 [facility] Comment on above: Performed By: #### V ITB1, ZINC #### [facility] [address] #### B12, FOL, CMP, PREALB, ANDREZ, CBCD #### [facility] [address] [place] [address] 29149 Urea nitrogen [Mass/Vol] 7 mg/dL Low - [facility] Comment on above: Performed By: #### V ITB1, ZINC #### [facility] [address] [place] [id number] #### B12, FOL, CMP, PREALB, ANDREZ, CBCD #### [facility] [address] [place] [address] 53671 ESR (Sed Rate)on 08-13-2022 ESR (Bld) [Velocity] 20 mm/h Normal 0-20 [facility] Comment on above: Performed By: #### V ITB1, ZINC #### [facility] [address] [place] [address] #### B12, FOL, CMP, PREALB, ANDREZ, CBCD #### [facility] [address] [place] [address] 14275 CBC with DIFFERENTIALon 07-03 Basophils (Bld) [#/Vol] 0.1 10*3/uL Normal 0.0-0.1 [facility] Comment on above: Performed By: #### C MP, TSH, LIPPAN, HBA1C, CBCD, INS #### [facility] [address] [place] [address] 95431 Basophils/100 WBC (Bld) 0.7 % Normal 0.0-1.0 [facility] Comment on above: Performed By: #### C MP, TSH, LIPPAN, HBA1C, CBCD, INS #### [facility] [address] [place] [address] Eosinophils (Bld) [#/Vol] 0.3 10*3/uL Normal 0.0-0.4 [facility] Comment on above: Performed By: #### C MP, TSH, LIPPAN, HBA1C, CBCD, INS #### [facility] [address] [place] [address] 93195 Eosinophils/100 WBC (Bld) 4.3 % High 1.0-4.0 [facility] Comment on above: Performed By: #### C MP, TSH, LIPPAN, HBA1C, CBCD, INS #### [facility] [address] [place] [address] 30813 Hematocrit (Bld) [Volume fraction] 43.7 % Normal 37.0-47.0 [facility] Comment on above: Performed By: #### C MP, TSH, LIPPAN, HBA1C, CBCD, INS #### [facility] [address] [place] [address] 38169 Hemoglobin (Bld) [Mass/Vol] 13.9 g/dL Normal 12.0-16.0 [facility] Comment on above: Performed By: #### C MP, TSH, LIPPAN, HBA1C, CBCD, INS #### [facility] [address] [place] [address] IG # 0.0 10*3/uL Normal 0.0-0.1 [facility] Comment on above: Performed By: #### C MP, TSH, LIPPAN, HBA1C, CBCD, INS #### [facility] [address] [place] [address] IG % 0.4 % Normal 0.0-1.0 [facility] Comment on above: Performed By: #### C MP, TSH, LIPPAN, HBA1C, CBCD, INS #### [facility] [address] [place] [address] 99988 Lymphocytes (Bld) [#/Vol] 3.2 10*3/uL Normal 1.3-4.4 [facility] Comment on above: Performed By: #### C MP, TSH, LIPPAN, HBA1C, CBCD, INS #### [facility] [address] [place] [address] 51660 Lymphocytes/100 WBC (Bld) 42.7 % High 27.0-41.0 [facility] Comment on above: Performed By: #### C MP, TSH, LIPPAN, HBA1C, CBCD, INS #### [facility] [address] [place] [address] 80855 MCV (RBC) [Entitic vol] 90.3 fL Normal 81.0-99.0 [facility] Comment on above: Performed By: #### C MP, TSH, LIPPAN, HBA1C, CBCD, INS #### [facility] [address] [place] [address] 97230 MEAN CORPUSCULAR HGB 28.7 pg Normal 27.0-31.0 [facility] Comment on above: Performed By: #### C MP, TSH, LIPPAN, HBA1C, CBCD, INS #### [facility] [address] [place] [address] 14887 MEAN CORPUSCULAR HGB CONC 31.8 g/dl Low 33.0-37.0 [facility] Comment on above: Performed By: #### C MP, TSH, LIPPAN, HBA1C, CBCD, INS #### [facility] [address] [place] [address] 56397 Monocytes (Bld) [#/Vol] 0.4 10*3/uL Normal 0.1-1.0 [facility] Comment on above: Performed By: #### C MP, TSH, LIPPAN, HBA1C, CBCD, INS #### [facility] [address] [place] [address] 57497 Monocytes/100 WBC (Bld) 5.4 % Normal 3.0-9.0 [facility] Comment on above: Performed By: #### C MP, TSH, LIPPAN, HBA1C, CBCD, INS #### [facility] [address] [place] [address] Neutrophils (Bld) [#/Vol] 3.4 10*3/uL Normal 2.3-7.9 [facility] Comment on above: Performed By: #### C MP, TSH, LIPPAN, HBA1C, CBCD, INS #### [facility] [address] [place] [address] Neutrophils/100 WBC (Bld) 46.5 % Low 47.0-73.0 [facility] Comment on above: Performed By: #### C MP, TSH, LIPPAN, HBA1C, CBCD, INS #### [facility] [address] [place] [address] NUCLEATED RED BLOOD CELL 0.0 10*3/uL Normal 0.0-0.0 [facility] Comment on above: Performed By: #### C MP, TSH, LIPPAN, HBA1C, CBCD, INS #### [facility] [address] [place] [address] 11453 NUCLEATED RED BLOOD CELL 0.0 % Normal 0.0-0.0 [facility] Comment on above: Performed By: #### C MP, TSH, LIPPAN, HBA1C, CBCD, INS #### [facility] [address] [place] [address] PLATELET COUNT AUTOMATED 309 10*3/uL Normal 130-400 [facility] Comment on above: Performed By: #### C MP, TSH, LIPPAN, HBA1C, CBCD, INS #### [facility] [address] [place] [address] Platelet mean volume (Bld) [Entitic vol] 10.3 fL Normal 9.6-12.3 [facility] Comment on above: Performed By: #### C MP, TSH, LIPPAN, HBA1C, CBCD, INS #### [facility] [address] [place] [address] 24323 RBC (Bld) [#/Vol] 4.84 10*6/uL Normal 4.10-5.10 [facility] Comment on above: Performed By: #### C MP, TSH, LIPPAN, HBA1C, CBCD, INS #### [facility] [address] [place] [address] RED CELL DISTRI WIDTH 13.5 % Normal 0-14.5 [facility] Comment on above: Performed By: #### C MP, TSH, LIPPAN, HBA1C, CBCD, INS #### [facility] [address] [place] [address] WBC (Bld) [#/Vol] 7.4 10*3/uL Normal 4.8-10.8 [facility] Comment on above: Performed By: #### C MP, TSH, LIPPAN, HBA1C, CBCD, INS #### [facility] [address] [place] [address] COMPREHENSIVE METABOLIC PANE [facility] 07-31-2022 Albumin [Mass/Vol] 3.9 g/dL Normal 3.4-5.0 [facility] Comment on above: Performed By: #### V ITB1, ZINC #### [facility] [address] [place] [address] #### B12, FOL, CMP, PREALB, ANDREZ, CBCD #### [facility] [address] [place] [address] 26684 ALP [Catalytic activity/Vol] 60 U/L Normal 46-116 [facility] Comment on above: Performed By: #### V ITB1, ZINC #### [facility] [address] [place] [address] #### B12, FOL, CMP, PREALB, ANDREZ, CBCD #### [facility] [address] [place] [address] 96769 ALT [Catalytic activity/Vol] 23 U/L Normal 10-49 [facility] Comment on above: Performed By: #### V ITB1, ZINC #### [facility] [address] [place] [address] #### B12, FOL, CMP, PREALB, ANDREZ, CBCD #### [facility] [address] [place] [address] AST [Catalytic activity/Vol] 17 U/L Normal 0-34 [facility] Comment on above: Performed By: #### V ITB1, ZINC #### [facility] [address] [place] [address] #### B12, FOL, CMP, PREALB, ANDREZ, CBCD #### [facility] [address] [place] [address] Bilirubin [Mass/Vol] 0.3 mg/dL Normal 0.3-1.2 [facility] Comment on above: Performed By: #### V ITB1, ZINC #### [facility] [address] [place] [address] #### B12, FOL, CMP, PREALB, ANDREZ, CBCD #### [facility] [address] [place] [address] 79814 CALCIUM,TOTAL 9.6 md/dL Normal 8.7-10.4 [facility] Comment on above: Performed By: #### V ITB1, ZINC #### [facility] [address] [place] [address] #### B12, FOL, CMP, PREALB, ANDREZ, CBCD #### [facility] [address] [place] [address] 68754 Chloride [Moles/Vol] 102 mmol/L Normal 98-107 [facility] Comment on above: Performed By: #### V ITB1, ZINC #### [facility] [address] [place] [address] #### B12, FOL, CMP, PREALB, ANDREZ, CBCD #### [facility] [address] [place] [address] 38731 CO2 [Moles/Vol] 27 mmol/L Normal 20-31 [facility] Comment on above: Performed By: #### V ITB1, ZINC #### [facility] [address] [place] [address] #### B12, FOL, CMP, PREALB, ANDREZ, CBCD #### [facility] [address] [place] [address] Creatinine [Mass/Vol] 0.58 mg/dL Normal 0.55-1.02 [facility] Comment on above: Performed By: #### V ITB1, ZINC #### [facility] [address] [place] [address] #### B12, FOL, CMP, PREALB, ANDREZ, CBCD #### [facility] [address] [place] [address] EST GLOM FILT > 60 Normal [facility] Comment on above: Result Comment: Result [...] #### V ITB1, ZINC #### [facility] [address] [place] [address] #### B12, FOL, CMP, PREALB, ANDRZE, CBCD #### [facility] [address] [place] [address] ESTIMATED GLOM FILT RATE > 60 Normal [facility] Comment on above: Performed By: #### V ITB1, ZINC #### [facility] [address] [place] [address] #### B12, FOL, CMP, PREALB, ANDREZ, CBCD #### [facility] [address] [place] [address] Glucose [Mass/Vol] 73 mg/dL Normal 65-99 [facility] Comment on above: Performed By: #### V ITB1, ZINC #### [facility] [address] [place] [address] #### B12, FOL, CMP, PREALB, ANDREZ, CBCD #### [facility] [address] [place] [address] 33184 Potassium [Moles/Vol] 4.2 mmol/L Normal 3.4-5.1 [facility] Comment on above: Performed By: #### V ITB1, ZINC #### [facility] [address] [place] [address] #### B12, FOL, CMP, PREALB, ANDREZ, CBCD #### [facility] [address] [place] [address] 52605 Protein [Mass/Vol] 7.2 g/dL Normal 6.0-8.0 [facility] Comment on above: Performed By: #### V ITB1, ZINC #### [facility] [address] [place] [address] #### B12, FOL, CMP, PREALB, ANDREZ, CBCD #### [facility] [address] [place] [address] 11009 Sodium [Moles/Vol] 137 mmol/L Normal 136-145 [facility] Comment on above: Performed By: #### V ITB1, ZINC #### [facility] [address] [place] [address] #### B12, FOL, CMP, PREALB, ANDREZ, CBCD #### [facility] [address] [place] [address] 21014 Urea nitrogen [Mass/Vol] 11 mg/dL Normal 9-23 [facility] Comment on above: Performed By: #### V ITB1, ZINC #### [facility] [address] [place] [address] #### B12, FOL, CMP, PREALB, ANDREZ, CBCD #### [facility] [address] [place] [address] 13293 [id number] 07-31-2022 ESTIMATED AVERAGE GLUCOSE 100 Normal [facility] Comment on above: Performed By: #### V ITB1, ZINC #### [facility] [address] #### B12, FOL, CMP, PREALB, ANDREZ, CBCD #### [facility] [address] [place] [address] HbA1c (Bld) [Mass fraction] 5.1 % Normal 4.8-5.6 [facility] Comment on above: Result Comment: Standarization of method based on National Glycohemoglobin Standardization Program (NGSP). HEMOGLOBIN A1c(%) DEGREE of GLUCOSE CONTROL 5.7-6.4% Prediabetes range >6.4% Diagnosis of Diabetes <7% Glycemic control for adults with Diabetes Performed By: #### V ITB1, ZINC #### [facility] [address] #### B12, FOL, CMP, PREALB, ANDREZ, CBCD #### [facility] [address] [place] [address] INSULINon 07-31-2022 INSULIN 45.6 mU/L High 2.6-37.6 [facility] Comment on above: Performed By: #### V ITB1, ZINC #### [facility] [address] #### B12, FOL, CMP, PREALB, ANDREZ, CBCD #### [facility] [address] [place] [address] LIPID PANEL CHOLESTEROL/HDLo n 07-31-2022 Cholesterol [Mass/Vol] 170 mg/dL Normal <200 [facility] Comment on above: Performed By: #### V ITB1, ZINC #### [facility] [address] [place] [address] #### B12, FOL, CMP, PREALB, ANDREZ, CBCD #### [facility] [address] [place] [address] Cholesterol in HDL [Mass/Vol] 31 mg/dL Low 40-60 [facility] Comment on above: Performed By: #### V ITB1, ZINC #### [facility] [address] [place] [address] #### B12, FOL, CMP, PREALB, ANDREZ, CBCD #### [facility] [address] [place] [address] 16067 Cholesterol in LDL [Mass/Vol] 73 mg/dL Normal 9-159 [facility] Comment on above: Performed By: #### V ITB1, ZINC #### [facility] [address] [place] [address] #### B12, FOL, CMP, PREALB, ANDREZ, CBCD #### [facility] [address] [place] [address] 79083 Cholesterol.total/Chol esterol in HDL [Mass ratio] 5.5 {ratio} Normal [facility] Comment on above: Performed By: #### V ITB1, ZINC #### [facility] [address] [place] [address] #### B12, FOL, CMP, PREALB, ANDREZ, CBCD #### [facility] [address] [place] [address] 15077 Triglyceride [Mass/Vol] 328 mg/dL High <150 [facility] Comment on above: Result Comment: TRIGLYCERIDE RISK ASSESSMENT: 150-199 mg/dl BORDERLINE HIGH >200 mg//dl HIGH . Performed By: #### V ITB1, ZINC #### [facility] [address] [place] [address] #### B12, FOL, CMP, PREALB, ANDREZ, CBCD #### [facility] [address] [place] [address] 23878 VLDL CHOLESTEROL 66 mg/dL High 6-40 [facility] Comment on above: Performed By: #### V ITB1, ZINC #### [facility] [address] [place] [address] #### B12, FOL, CMP, PREALB, ANDREZ, CBCD #### [facility] [address] [place] [address] THYROID STIM HORMONE (HS)on 07-31-2022 THYROID STIM HORMONE (HS) 2.569 uIU/ml Normal 0.550-4.780 [facility] Comment on above: Performed By: #### V ITB1, ZINC #### [facility] [address] [place] [address] #### B12, FOL, CMP, PREALB, ANDREZ, CBCD #### [facility] [address] [place] [address] NICOTINE METABOLITE, QUANTon 07-19-2022 COTININE <1.0 Normal . [facility] Comment on above: Order Comment: FAX T O [phone] Result Comment: This test was developed and its performance characteristics determined by [employer]. It has not been cleared or approved by the Food and Drug Administration. Cotinine levels greater than 20.0 are consistent with the use of tobacco or tobacco cessation products. Performed at: [address] [id number] [employer] Skimmer: Estuardo Michelle MD, Phone: [phone] Performed By: #### N ICOTINE #### [facility] [address] [place] [address] NICOTINE <1.0 Normal . [facility] Comment on above: Order Comment: FAX T O [phone] Result Comment: This test was developed and its performance characteristics determined by [employer]. It has not been cleared or approved by the Food and Drug Administration. Nicotine levels greater than 2.0 are consistent with the use of tobacco or tobacco cessation products. Performed By: #### N ICOTINE #### [facility] [address] [place] [address] HIPS BILATERAL (2V)on 2021 [id number] Name: BATOOL KINGSLEY Phys: LASHAWN WELLS NP : 2000 Age: 22 Sex: F Acct: [id number] Loc: RAD Exam Date: 06/14/2022 Status: REG CLI Radiology No: [id number] Unit No: [id number] EXAM# TYPE/EXAM RESULT [id number] RAD/HIPS BILATERAL (2V) SEE REPORT INDICATION: Sharp [...] NP Technologist: Eugene Wagner Transcribed Date/Time: 06/14/2022 (8868) Sole Leveler Machine: OSCAR Printed Date/Time: 06/14/2022 (8753) PAGE 1 Signed Report Normal [facility] Vitamin B1 (Thiamine), Whole Bloodon 05-09-2022 [...] developed and its performance characteristics determined by [employer]. It has not been cleared or approved by the [place] Food and Drug Administration. This test was performed in a CLIA certified laboratory and is intended for clinical purposes. Performed By: [facility] [address] [id number] [employer] Officer: Francisco Javier Zhang MD, PhD Performed By: #### 8 [id number] ####[facility] [address] [id number] Zinc, Serumon 05-07-2022 Zinc, Serum 75.6 ug/dL [...] developed and its performance characteristics determined by [employer]. It has not been cleared or approved by the [place] Food and Drug Administration. This test was performed in a CLIA certified laboratory and is intended for clinical purposes. Performed By: [facility] [address] [place] [address] [employer] Business [employer] Officer: Francisco Javier Zhang MD, PhD Performed By: #### 2 0097 #### [facility] [address] [place] [address] Blood glucose - POCTon 05-04 Glucose [Mass/Vol] 96 mg/dL [facility] [employer] Work Phone: QC [place]? [facility] [employer] Work Phone: CBCon 05-04-2022 Hematocrit (Bld) [Volume fraction] 40.4 % 34.0 - 48.0 % [facility] Hemoglobin (Bld) [Mass/Vol] 13.2 g/dL 11.5 - 15.5 g/dL [facility] MCH (RBC) [Entitic mass] 29.9 pg 26.0 - 35.0 pg [facility] MCHC (RBC) [Mass/Vol] 32.7 % 32.0 - 34.5 % [facility] MCV (RBC) [Entitic vol] 91.6 fL 80.0 - 99.9 fL [facility] [employer] Platelet distribution width (Bld) [Ratio] 13.0 fL 11.5 - 15.0 fL [facility] Platelet mean volume (Bld) [Entitic vol] 9.8 fL 7.0 - 12.0 fL [facility] Platelets (Bld) [#/Vol] 313 10*3/uL [facility] RBC (Bld) [#/Vol] 4.41 10*6/uL [facility] WBC (Bld) [#/Vol] 9.2 10*3/uL [facility] CBC With Platelet No Differe [...] Center Platelet Count 313 E9/L Normal 130-450 [facility] Platelet mean volume (Bld) [Entitic vol] 9.8 fL Normal 7.0-12.0 [facility] RBC 4.41 E12/L Normal 3.50-5.50 [facility] RDW 13.0 fL Normal 11.5-15.0 [facility] WBC 9.2 E9/L Normal 4.5-11.5 [facility] Cholesterolon 05-04-2022 Cholesterol [Mass/Vol] 162 mg/dL Normal 0-199 [facility] Cholesterol, Totalon 022 Cholesterol [Mass/Vol] 162 mg/dL 0 - 1 99 mg/dL [facility] Comprehensive Metabolic Pane evan 05-04-2022 Albumin [Mass/Vol] 4.1 g/dL Normal 3.5-5.2 [facility] ALP [Catalytic activity/Vol] 64 U/L Normal 35-104 [facility] ALT [Catalytic activity/Vol] 22 U/L Normal 0-32 [facility] Anion gap [Moles/Vol] 10 mmol/L Normal 7-16 [facility] AST [Catalytic activity/Vol] 13 U/L Normal 0-31 [facility] Bilirubin [Mass/Vol] 0.2 mg/dL Normal 0.0-1.2 [facility] Calcium [Mass/Vol] 8.9 mg/dL Normal 8.6-10.2 [facility] Chloride [Moles/Vol] 102 mmol/L Normal 98-107 [facility] CO2 [Moles/Vol] 25 mmol/L Normal 22-[address] [facility] Creatinine [Mass/Vol] 0.7 mg/dL Normal 0.5-1.0 [facility] GFR Calculated >60 Normal >=60 [facility] Comment on above: Result Comment: [...] Center Potassium [Moles/Vol] 4.5 mmol/L Normal 3.5-5.0 [facility] Protein [Mass/Vol] 6.9 g/dL Normal 6.4-8.3 [facility] Sodium [Moles/Vol] 137 mmol/L Normal 132-146 [facility] Urea nitrogen [Mass/Vol] 17 mg/dL Normal 6-20 [facility] Albumin [Mass/Vol] 4.1 g/dL 3.5 - 5.2 g/dL [facility] ALP (Bld) [Catalytic activity/Vol] 64 U/L 35 - 104 U/L [facility] ALT [Catalytic activity/Vol] 22 U/L 0 - 32 U/L [facility] Anion gap [Moles/Vol] 10 mmol/L 7 - 16 mmol/L [facility] AST [Catalytic activity/Vol] 13 U/L 0 - 31 U/L [facility] [employer] Bilirubin [Mass/Vol] 0.2 mg/dL 0.0 - 1 .2 mg/dL [facility] Calcium [Mass/Vol] 8.9 mg/dL 8.6 - 10. 2 mg/dL [facility] Chloride [Moles/Vol] 102 mmol/L 98 - 10 7 mmol/L [facility] CO2 [Moles/Vol] 25 mmol/L 22 - 29 mmol/L [facility] Creatinine [Mass/Vol] 0.7 mg/dL 0.5 - 1.0 mg/dL [facility] GFR/1.73 sq M.predicted MDRD (S/P/Bld) [Vol rate/Area] mL/min/1.73 60 - PINF mL/min/1.73 [facility] Comment on above: Pediatric calculator [...] 96 mg/dL 74 - 99 mg/dL [facility] Potassium [Moles/Vol] 4.5 mmol/L 3.5 - 5.0 mmol/L [facility] Protein [Mass/Vol] 6.9 g/dL 6.4 - 8.3 g/dL [facility] Sodium [Moles/Vol] 137 mmol/L 132 - 146 mmol/L [facility] Urea nitrogen (BldV) [Mass/Vol] 17 mg/dL 6 - 20 mg/dL [facility] [employer] Ferritinon 05-04-2022 Ferritin [Mass/Vol] 69 ng/mL Normal [...] [facility] No Panel Informationon 05-04 [employer] Work Phone: POC Urine Qualon 1 07-04-2021 Beta HCG ( test) Ql (U) Negative Negative [employer] Phone: Lot Number [id number] [employer] Phone: Negative QC Pass/Fail Pass [employer] Phone: Positive QC Pass/Fail Pass [employer] Phone: [employer] Phone: POCT Glucoseon 05-04-2022 Glucose [Mass/Vol] 93 mg/dL 74 - 99 mg/dL [facility] [employer] Glucose [Mass/Vol] 96 mg/dL 74 - 99 mg/dL [facility]version [facility]USqualifyor [facility]ITALProfit[facility] Prealbuminon 05-04-2022 Prealbumin [Mass/Vol] 24 mg/dL Normal 20-40 [facility] Surgical Specimenon 05-04-20 Surgical Specimen [id number] [place] [id number] FINAL SURGICAL PATHOLOGY REPORT NAME: KYLIE KINGLSEYCIE Date of 05/04/2022 Collection: Medical Record [id number] Date of 05/04/2022 Number: Receipt: Age: 22 Y Sex: F Date 05/11/2022 08:29 Reported: Date Of : 2000 Financial [id number] Admitting DERIC FLORENCE Number: Physician: Patient JHON ITZEL Ordering DERIC FLORENCE Location: Physician: Accession [...] in one part in formalin labeled Batool Radhaman, biopsy antrum is a haq soft fragment of tissue that measures 0.2 x 0.2 x 0.2 cm. Entirely submitted. Block label: A1. (JORGE L:YAYA) CODES: 84649; Department of Pathology Page 1 of 1 Normal [facility] Triglycerideon 05-04-2022 Interpretation and review of laboratory results Abnormal [facility] Triglyceride [Mass/Vol] 274 mg/dL High 0 - 149 mg/dL [facility] Triglycerideson 05-04-2022 Triglyceride [Mass/Vol] 274 [...] Rohit Dowling MD 05/02/22 Final result Normal [facility] Comment on above: Order Comment: Reaso n for exam:->Indigestion What reading provider will be dictating this exam?->CRC CBC Auto DifferentialOrdered By: Win Narvaez on 03-27-2021 Basophils (Bld) [#/Vol] 0.05 10*3/uL [employer] Phone: Basophils/100 WBC (Bld) 0.5 % 0.0 - 2.0 % [employer] Phone: Eosinophils Absolute 0.37 [employer] Phone: Eosinophils/100 WBC (Bld) 3.8 % 0.0 - 6.0 % [employer] Phone: Hematocrit (Bld) [Volume fraction] 39.5 % 34.0 - 48.0 % [employer] Phone: Hemoglobin.gastrointes tinal spec 1 Ql (Stl) 12.6 g/dL 11.5 - 15.5 g/dL [employer] Phone: Immature Granulocytes # 0.18 E9/L [employer] Phone: Immature granulocytes/100 WBC (Bld) 1.8 % 0.0 - 5.0 % [employer] Phone: Interpretation and review of laboratory results Abnormal [employer] Phone: Lymphocytes Absolute 3.73 [employer] Phone: Lymphocytes/100 WBC (Bld) 38.2 % 20.0 - 42.0 % [employer] Phone: MCH (RBC) [Entitic mass] 28.9 pg 26.0 - 35.0 pg [employer] Phone: MCHC (RBC) [Mass/Vol] 31.9 % Low 32.0 - 34.5 % [employer] Phone: MCV (RBC) [Entitic vol] 90.6 fL 80.0 - 99.9 fL [employer] Phone: Monocytes Absolute 0.46 [employer] Phone: Monocytes/100 WBC (Bld) 4.7 % 2.0 - 12.0 % [employer] Phone: Neutrophils Absolute 4.97 [employer] Phone: Neutrophils/100 WBC (Bld) 51.0 % 43.0 - 80.0 % [employer] Phone: Platelet distribution width (Bld) [Ratio] 13.3 fL 11.5 - 15.0 fL [employer] Phone: Platelet mean volume (Bld) [Entitic vol] 9.7 fL 7.0 - 12.0 fL [employer] Phone: Platelets (Bld) [#/Vol] 281 10*3/uL [employer] Phone: RBC (Bld) [#/Vol] 4.36 10*6/uL [employer] Phone: WBC (Bld) [#/Vol] 9.8 10*3/uL [employer] Phone: Comprehensive Metabolic Pane l w/ Reflex to MGOrdered By: Win Narvaez on 03-27-2021 Albumin [Mass/Vol] 4.2 g/dL 3.5 - 5.2 g/dL [employer] Phone: ALP (Bld) [Catalytic activity/Vol] 64 U/L 35 - 104 U/L [employer] Phone: ALT [Catalytic activity/Vol] 19 U/L 0 - 32 U/L [employer] Phone: Anion gap [Moles/Vol] 12 mmol/L 7 - 16 mmol/L [employer] Phone: AST [Catalytic activity/Vol] 14 U/L 0 - 31 U/L [employer] Phone: Bilirubin [Mass/Vol] mg/dL 0.0 - 1 .2 mg/dL [employer] Phone: Calcium [Mass/Vol] 9.1 mg/dL 8.6 - 10. 2 mg/dL [employer] Phone: Chloride [Moles/Vol] 103 mmol/L 98 - 10 7 mmol/L [employer] Phone: CO2 [Moles/Vol] 22 mmol/L 22 - 29 mmol/L [employer] Phone: Creatinine [Mass/Vol] 0.5 mg/dL 0.5 - 1.0 mg/dL [employer] Phone: Free PSA/Total PSA [Mass fraction] 7.1 g/dL 6.4 - 8.3 g/dL [employer] Phone: GFR >60 [employer] Phone: GFR Non- >60 >=60 mL/min/1.73 [employer] Phone: Comment on above: Chronic Kidney Disea se: less than 60 ml/min/1.73 sq.m. Kidney Failure: less than 15 ml/min/1.73 sq.m. Results valid for patients 18 years and older. Glucose [Mass/Vol] 107 mg/dL High 74 - 99 mg/dL [employer] Phone: Interpretation and review of laboratory results Abnormal [employer] Phone: Potassium [Moles/Vol] 4.2 mmol/L 3.5 - 5.0 mmol/L [employer] Phone: Sodium [Moles/Vol] 137 mmol/L 132 - 146 mmol/L [employer] Phone: Urea nitrogen (BldV) [Mass/Vol] 9 mg/dL 6 - 20 mg/dL [employer] Phone: [employer] Phone: Microscopic UrinalysisOrdere d By: Win Narvaez on 03-27-2021 Bacteria, UA FEW Abnormal None Seen /HPF [employer] Phone: Epithelial Cells, UA FEW /HPF [employer] Phone: Interpretation and review of laboratory results Abnormal [employer] Phone: RBC, UA 2-5 [employer] Phone: WBC, UA 0-1 [employer] Phone: [employer] Phone: No Panel InformationOrdered By: Win Narvaez on 03-27-2021 [employer] Phone: POC Urine QualOrde red By: Win Narvaez on 03-27-2021 Beta HCG ( test) Ql (U) Negative Negative [employer] Phone: Beta HCG ( test) Ql (U) [id number] [employer] Phone: Negative QC Pass/Fail Pass [employer] Phone: Positive QC Pass/Fail Pass [employer] Phone: US PELVIS COMPLETEOrdered By : Tien Oneal on 03-27-2021 The bilateral ovaries are mildly enlarged, right greater than left. Otherwise, unremarkable pelvic ultrasound. [employer] Phone: EXAMINATION: PELVIC ULTRASOUND 03/27/2021 TECHNIQUE: Multiple [...] Free Fluid: No evidence of free fluid. [employer] Phone: Antonio, Mhy Incoming Radiant Results From [employer] - 03/27/2021 3:01 PM EDT EXAMINATION: PELVIC [...] greater than left. Otherwise, unremarkable pelvic ultrasound. [employer] Phone: [employer] Phone: UrinalysisOrdered By: Win Narvaez on 03-27-2021 Bilirubin Urine Negative Negative [facility] Work Phone: Blood, Urine LARGE Abnormal Negative [employer] Phone: Clarity, UA Clear [employer] Work Phone: Color, UA Yellow Straw/Yellow [employer] Phone: Glucose, Ur Negative Negative mg/dL [employer] Phone: Interpretation and review of laboratory results Abnormal [employer] Phone: Ketones Ql (U) Negative Negative mg/dL [facility] Work Phone: Leukocyte esterase Test strip Ql (U) Negative Negative [facility] Work Phone: Nitrite, Urine Negative Negative [facility] Work Phone: pH, UA 5.0 [facility] Work Phone: Protein, UA TRACE Negative mg/dL [facility] Work Phone: Specific [place], UA >=1.030 [facility] Work Phone: Urobilinogen, Urine 0.2 <2.0 E.U./dL [facility] Work Phone: [facility] Work Phone: NOSE/THROAT CULTUREon 2020 NOSE/THROAT CULTURE RUN DATE: 07/10/20 Laboratory LIVE PAGE 1 RUN TIME: 951 Specimen Inquiry RUN USER: INTERFACE [facility] Department of Laboratories [address] [place] [id number] PATIENT: BATOOL KINGSLEY LOC: [facility] U #: [id number] HOME PHONE: AGE/SX: 20/F ROOM: RE/08/[address]: Ameena Corcoran APRN.CNP : 99 BED: DIS: STATUS: REG REF LAB O/S: Specimen: [id number] Collected: 07/08/20 Status: COMP Req#: [id number] Received: 07/08/20 Source: THROAT Sp Desc: Subm Dr: Ameena Corcoran APRN.CNP Ordered: NOSE/THRT CULT Procedure Result Verified > NOSE/THROAT CULTURE Final 07/10/20 HEAVY GROWTH OF NORMAL ARIN END OF REPORT Normal [facility] Comment on above: Performed By: #### C ULTNT #### [facility] [address] [address] Vital Signs Date Time Vital Sign Value Performing Clinician Facility 06-16-2024 12:54-0500 Body weight 126.55 kg Bryan Manisha DO Work Phone: [facility] 06-16-2024 12:54-0500 Diastolic blood pressure 76 mm[Hg] Bryan Manisha DO Work Phone: [facility] 06-16-2024 12:54-0500 Systolic blood pressure 122 mm[Hg] Bryan Manisha DO Work Phone: [facility] 05-25-2024 14:30-0500 Body weight 123.74 kg Bryan Manisha DO Work Phone: [facility] 05-25-2024 14:30-0500 Diastolic blood pressure 70 mm[Hg] Bryan Manisha DO Work Phone: [facility] 05-25-2024 14:30-0500 Systolic blood pressure 120 mm[Hg] Bryan Manisha DO Work Phone: [facility] 04-21-2024 15:02-0400 Body weight 118.84 kg Bryan Manisha DO Work Phone: [facility] 04-21-2024 15:02-0400 Diastolic blood pressure 74 mm[Hg] Bryan Manisha DO Work Phone: [facility] 04-21-2024 15:02-0400 Systolic blood pressure 116 mm[Hg] Bryan Manisha DO Work Phone: [facility] 04-07-2024 14:38-0400 Body weight 118.3 kg Kierra HUNT Work Phone: [facility] 04-07-2024 14:38-0400 Diastolic blood pressure 70 mm[Hg] Kierra HUNT Work Phone: [facility] 04-07-2024 14:38-0400 Systolic blood pressure 120 mm[Hg] Kierra HUNT Work Phone: [facility] 03-09-2024 13:53-0400 Body weight 113.74 kg Bryan Manisha DO Work Phone: [facility] 03-09-2024 13:53-0400 Diastolic blood pressure 72 mm[Hg] Bryan Manisha DO Work Phone: [facility] 03-09-2024 13:53-0400 Systolic blood pressure 120 mm[Hg] Bryan Manisha DO Work Phone: [facility] 10-30-2022 08:56-0400 SaO2% (BldA) [Mass fraction] 97 % Deric Florence MD Work Phone: [facility] [employer] 10-30-2022 05:00-0400 Body temperature 97.9 [degF] Deric Florence MD Work Phone: [employer] 10-30-2022 05:00-0400 Diastolic blood pressure 74 mm[Hg] Deric Florence MD Work Phone: [employer] 10-30-2022 05:00-0400 Heart rate 74 /min Deric Florence MD Work Phone: [facility] [employer] 10-30-2022 05:00-0400 Respiratory rate 18 /min Deric Florence MD Work Phone: [employer] 10-30-2022 05:00-0400 Systolic blood pressure 126 mm[Hg] Deric Florence MD Work Phone: [employer] 10-29-2022 06:50-0400 Body height 170.2 cm Deric Florence MD Work Phone: [employer] 10-29-2022 06:50-0400 Body mass index (BMI) [Ratio] 55.6 kg/m2 Deric Florence MD Work Phone: [employer] 10-29-2022 06:50-0400 Body weight 161.03 kg Deric Florence MD Work Phone: [facility] [employer] 10-24-2022 12:17-0400 Body height 170.2 cm Sjwz 2 [facility] [employer] [facility] [employer] 10-24-2022 12:17-0400 Body mass index (BMI) [Ratio] 55.44 kg/m2 Sjwz 2 [facility] [employer] [facility] [employer] 10-24-2022 12:17-0400 Body temperature 98.01 [degF] Sjwz 2 [facility] [employer] 10-24-2022 12:17-0400 Body weight 160.57 kg Sjwz 2 [facility] [employer] [facility] [employer] 10-24-2022 12:17-0400 Diastolic blood pressure 62 mm[Hg] Sjwz 2 [facility] [employer] [facility] [employer] 10-24-2022 12:17-0400 Heart rate 77 /min Sjwz 2 [facility] [employer] [facility] [employer] 10-24-2022 12:17-0400 Respiratory rate 16 /min Sjwz 2 [facility] [employer] 10-24-2022 12:17-0400 SaO2% (BldA) [Mass fraction] 95 % Sjwz 2 [facility] [employer] 10-24-2022 12:17-0400 Systolic blood pressure 117 mm[Hg] Sjwz 2 [facility] [employer] 05-04-2022 08:55-0400 Body temperature 98.29 [degF] Deric Florence MD Work Phone: [facility] [employer] 05-04-2022 08:55-0400 Diastolic blood pressure 68 mm[Hg] Deric Florence MD Work Phone: [facility] [employer] 05-04-2022 08:55-0400 Heart rate 83 /min Deric Florence MD Work Phone: [facility] [employer] 05-04-2022 08:55-0400 Respiratory rate 16 /min Deric Florence MD Work Phone: [facility] [employer] 05-04-2022 08:55-0400 SaO2% (BldA) [Mass fraction] 92 % Deric Florence MD Work Phone: [facility] [employer] 05-04-2022 08:55-0400 Systolic blood pressure 128 mm[Hg] Deric Florence MD Work Phone: [employer] 05-04-2022 07:06-0400 Body height 170.2 cm Deric Florence MD Work Phone: [employer] 05-04-2022 07:06-0400 Body mass index (BMI) [Ratio] 61.21 kg/m2 Deric Florence MD Work Phone: [employer] 05-04-2022 07:06-0400 Body weight 177.27 kg Deric Florence MD Work Phone: [employer] 03-27-2021 20:08-0400 Heart rate 95 /min Tien Oneal DO Work Phone: [employer] Work Phone: 03-27-2021 13:47-0400 Body height 170.2 cm Tien Oneal DO Work Phone: [employer] Work Phone: 03-27-2021 13:47-0400 Body mass index (BMI) [Ratio] 54.82 kg/m2 Tien Oneal DO Work Phone: [employer] Work Phone: 03-27-2021 13:47-0400 Body temperature 97.11 [degF] Tien Oneal DO Work Phone: [employer] Work Phone: 03-27-2021 13:47-0400 Body weight 158.76 kg Tien Oneal DO Work Phone: [employer] Work Phone: 03-27-2021 13:47-0400 Diastolic blood pressure 80 mm[Hg] Tien Oneal DO Work Phone: [employer] Work Phone: 03-27-2021 13:47-0400 Respiratory rate 16 /min Tien Baulesh DO Work Phone: [employer] Phone: 03-27-2021 13:47-0400 SaO2% (BldA) [Mass fraction] 98 % Tien Oneal DO Work Phone: [employer] Phone: 03-27-2021 13:47-0400 Systolic blood pressure 173 mm[Hg] Tien Oneal DO Work Phone: [employer] Phone: Encounters Encounter Date Encounter Type Care Provider Facility Start: 06-20-2024 End: 06-20-2024 Clinisync Result Encounter Bryan Manisha DO Work Phone: [facility] External Department Unsolicited Start: 06-20-2024 End: 06-20-2024 Clinisync Result Encounter Bryan Manisha DO Work Phone: [facility] External [facility] Unsolicited Start: 06-18-2024 End: 06-18-2024 Clinisync Result Encounter Bryan Manisha DO Work Phone: [facility] External Department Unsolicited Start: 06-18-2024 End: 06-18-2024 Clinisync Result Encounter Bryan Manisha DO Work Phone: [facility] External [facility] Unsolicited Start: 06-16-2024 End: 06-16-2024 Bamboo flowsheet Bryan Manisha DO Work Phone: [facility] Start: 06-16-2024 End: 06-16-2024 Bamboo flowsheet Bryan Manisha DO Work Phone: [facility] Start: 06-16-2024 End: 06-16-2024 Office outpatient visit 15 minutes Bryan Manisha DO Work Phone: [facility] Comment on above: Third trimester preg agatha; 37 weeks gestation of Start: 06-16-2024 End: 06-16-2024 ambulatory BRYAN MANISHA Not Available Start: 06-10-2024 End: 06-10-2024 Bamboo flowsheet Bryan Manisha DO Work Phone: [facility] Start: 06-10-2024 End: 06-13-2024 Bamboo flowsheet Bryan Manisha DO Work Phone: [facility] Start: 06-10-2024 End: 06-13-2024 Clinisync Result Encounter Bryan Manisha DO Work Phone: [facility] External Department Unsolicited Start: 06-10-2024 End: 06-10-2024 Office outpatient visit 15 minutes Bryan Manisha DO Work Phone: [facility] Comment on above: Third trimester preg agatha; 36 weeks gestation of ; Non-compliant patient, third trimester; History of gastric bypass; Gestational diabetes mellitus (GDM), antepartum, gestational diabetes method of control unspecified Start: 06-10-2024 End: 06-10-2024 ambulatory BRYAN MANISHA Not Available Start: 05-25-2024 End: 05-25-2024 Bamboo flowsheet Bryan Manisha DO Work Phone: [facility] Start: 05-25-2024 End: 05-25-2024 Bamboo flowsheet Bryan Manisha DO Work Phone: [facility] Start: 05-25-2024 End: 05-25-2024 Office outpatient visit 15 minutes Bryan Manisha DO Work Phone: [facility] Comment on above: 34 weeks gestation o f ; Third trimester ; Insomnia, unspecified type; History of gastric bypass; Gestational diabetes mellitus (GDM), antepartum, gestational diabetes method of control unspecified Start: 05-25-2024 End: 05-25-2024 ambulatory BRYAN MANISHA Not Available Start: 05-06-2024 End: 05-06-2024 Office outpatient visit 15 minutes Kierra HUNT Work Phone: [facility] Comment on above: Third trimester preg agatha; 31 weeks gestation of ; Anxiety, generalized (CMS/HCC); Sinusitis, unspecified chronicity, unspecified location Start: 05-06-2024 End: 05-06-2024 ambulatory KIERRA SHERWOOD Not Available Start: 05-06-2024 End: 05-06-2024 Bamboo flowsheet Kierra HUNT Work Phone: [facility] Start: 05-06-2024 End: 05-06-2024 Bamboo flowsheet Kierra HUNT Work Phone: [facility] Start: 04-21-2024 End: 04-21-2024 Office outpatient visit 15 minutes Bryan Manisha DO Work Phone: [facility] Comment on above: Third [...] visit 15 minutes Kierra HUNT Work Phone: [facility] Comment on above: 27 weeks gestation o f ; Second trimester ; Gestational diabetes mellitus (GDM), antepartum, gestational diabetes method of control unspecified; Anemia affecting in second trimester Start: 04-07-2024 End: 04-07-2024 ambulatory KIERRA SHERWOOD Not Available Start: 04-07-2024 End: 04-07-2024 Bamboo flowsheet Kierra HUNT Work Phone: [facility] Start: 04-07-2024 End: 04-07-2024 Bamboo flowsheet Kierra Evelyn PA Work Phone: [facility] Start: 03-17-2024 End: 03-17-2024 ambulatory KENDRA Gudelia KATHERINE [facility] Start: 03-09-2024 End: 03-09-2024 Office outpatient visit 15 minutes Bryan Manisha DO Work Phone: [facility] Comment on above: Diabetes mellitus sc reening; Second trimester Start: 03-09-2024 End: 03-09-2024 Bamboo flowsheet Bryan Manisha DO Work Phone: [facility] Start: 03-09-2024 End: 03-09-2024 Bamboo flowsheet Bryan Manisha DO Work Phone: [facility] Start: 03-09-2024 End: 03-09-2024 Clinisync Result Encounter Bryan Manisha DO Work Phone: [facility] External Department Unsolicited Start: 03-09-2024 End: 03-09-2024 ambulatory BRYAN MANISHA Not Available Start: 02-17-2024 End: 02-17-2024 ambulatory BRYAN R MANISHA [facility] Start: 02-10-2024 End: 02-10-2024 ambulatory BRYAN MANISHA Not Available Start: 01-07-2024 End: 01-07-2024 ambulatory BRYAN MANISHA Not Available Start: 12-12-2023 End: 12-12-2023 ambulatory BRYAN MANISHA Not Available Start: 11-10-2023 End: 11-10-2023 Emergency department patient visit NO PCP NO PCP [facility] Start: 08-14-2023 End: 08-14-2023 Emergency department patient visit TRAVIS VALLEJO [facility] Start: 12-14-2022 ambulatory KAELA GILLIAN Facility:[facility] Start: 12-03-2022 ambulatory KAELA GILLIAN Facility:[facility] Start: 11-06-2022 ambulatory KAELA GILLIAN Facility:[facility] Start: 10-29-2022 End: 10-30-2022 Evaluation and management of inpatient KAELA GILLIAN [facility] Start: 10-29-2022 End: 10-30-2022 Evaluation and management of inpatient Deric Florence MD Work Phone: [facility] MED SURG Comment on above: Post-operative state (Primary Dx); Morbid obesity (HCC) Start: 10-24-2022 End: 10-25-2022 ambulatory [facility] Start: 10-24-2022 Encounter for other preprocedural examination [facility] Start: 10-24-2022 End: 10-24-2022 Patient encounter status Sjwz 2 [facility] PRE ADMIT TESTING Start: 10-24-2022 End: 10-24-2022 Subsequent hospital visit by physician Hans Pat Room 2 [facility] PRE ADMIT TESTING Comment on above: Preop testing (Prima ry Dx); Malnutrition following gastrointestinal surgery Start: 10-04-2022 [facility] Facility:[facility] Start: 08-13-2022 ambulatory [facility] Facility:[facility] Start: 07-31-2022 [facility] Facility:[facility] Start: 07-13-2022 [facility] Facility:[facility] Start: 06-14-2022 [facility] Facility:[facility] Start: 05-04-2022 End: 05-04-2022 [facility] Start: 05-04-2022 End: 05-04-2022 Subsequent hospital visit by physician Deric Florence MD [facility] Comment on above: Morbid obesity due t o excess calories (HCC); Gastroesophageal reflux disease Start: 05-02-2022 End: 05-05-2022 ambulatory DERIC FLORENCE [facility] Start: 03-27-2021 End: 03-27-2021 Emergency department patient visit Tien Oneal DO Work Phone: [facility] Comment on above: DUB (dysfunctional u terine bleeding) (Primary Dx) Procedures Date Procedure Procedure Detail Performing Clinician Start: 06-20-2024 ALL CBC WITH AUTO DIFF Bryan Manisha DO Work Phone: Start: 06-18-2024 [facility] CBC WITH PLATEL ET NO DIFFERENTIAL Bryan Manisha DO Work Phone: Start: 06-16-2024 Urnls dip stick/tabl et rgnt non-auto w/o micrscp Bryan Manisha DO Work Phone: Start: 06-10-2024 Urnls dip stick/tabl et rgnt [...] w/o micrscp Kierra HUNT Work Phone: Start: 03-09-2024 ALL CBC WITH AUTO DIFF Bryan Manisha DO Work Phone: Start: 03-09-2024 Urnls dip stick/tabl et rgnt non-auto w/o micrscp Bryan Manisha DO Work Phone: Start: 10-30-2022 INCENTIVE SPIROMETRY RT [...] Basic metabolic panel calcium total Yang Hsu [employer] Work Phone: Start: 10-30-2022 Lipid panel Yang Ferguson [employer] Work Phone: Start: 10-30-2022 Gluc bld gluc [...] Urine test visual color cmprsn meths Eugene Moinque MD Work Phone: Start: 10-29-2022 NOTIFY PHYSICIAN [...] Start: 10-29-2022 Hemoglobin glycosylated a1c Yang Hsu [employer] - [employer] Work Phone: Start: 10-29-2022 Gluc bld gluc [...] Treatment Date Care Activity Detail Author Start: 07-30-2024 End: 07-30-2024 ambulatory 07/30/2024 11:20 AM EST Visit [facility] [address] [place] [address] Bryan Dyer, DO [address] [place], [place] [id number] [facility] Start: 06-16-2024 End: 06-16-2024 Patient encounter procedure [facility] Comment on above: Arrived Start: 06-10-2024 End: 06-10-2025 CULTURE, GROUP B STREP WITH SUSCEPTIBLITY CULTURE, GROUP B STREP WITH SUSCEPTIBLITY Lab Routine Third trimester Expected: 06/10/2024, Expires: 06/10/2025 [facility] Work Phone: Comment on above: Expected: 06/10/2024, [...] EST Ancillary Procedure [facility] [address] [facility] [id number] [facility] Start: 04-21-2024 End: 04-21-2024 Patient encounter procedure 04/21/2024 2:30 PM EDT Routine [facility] [address] [place] [phone] Bryan Dyer DO [address] [place] [address] Arrived [facility] Comment on above: Arrived Start: 04-21-2024 End: 04-21-2025 US for US OB SCAN FOR GROWTH Imaging Routine Elevated glucose tolerance test Abnormal thyroid stimulating hormone (TSH) level Expected: 04/21/2024 (Approximate), Expires: 04/21/2025 [facility] Comment on above: Expected: 04/21/2024 (Approximate), Expi res: 04/21/2025 Start: 04-07-2024 End: 04-07-2024 Patient encounter procedure [facility] Comment on above: Arrived Start: 04-07-2024 End: 04-07-2025 US for US OB SCAN FOR GROWTH Imaging Routine Gestational diabetes mellitus (GDM), antepartum, gestational diabetes method of control unspecified Anemia affecting in second trimester Expected: 04/07/2024 (Approximate), Expires: 04/07/[address] [facility] Work Phone: Comment on above: Expected: 04/07/2024 (Approximate), Expi res: 04/07/2025 Start: 03-09-2024 End: 03-09-2024 Patient encounter procedure 03/09/2024 2:10 PM EDT Routine [facility] [address] [place] [address] Bryan Dyer, DO [address] [facility] [place] [address] Arrived [facility] Comment on above: Arrived Start: 03-09-2024 End: 03-09-2025 CBC panel - Blood by Automated count CBC Lab Routine Diabetes mellitus screening Expected: 03/09/2024 (Approximate), Expires: 03/09/2025 [facility] Work Phone: Comment on above: Expected: 03/09/2024 (Approximate), Expi res: 03/09/2025 Start: 03-09-2024 End: 03-09-2025 Measurement of glucose 1 hour after glucose challenge for glucose tolerance test Glucose tolerance, 1 hour Lab Routine Diabetes mellitus screening Expected: 03/09/2024 (Approximate), Expires: 03/09/2025 [facility] Comment on above: Expected: 03/09/2024 (Approximate), Expi res: 03/09/2025 Start: 10-31-2023 GFR test (Diabetes, CKD 3-4, OR last GFR 15-59) GFR test (Diabetes, CKD 3-4, OR last GFR 15-59) [facility] Start: 10-31-2023 Lipid panel Lipids [facility] Start: 10-30-2023 Hemoglobin A1c measurement A1C test (Diabetic or Prediabetic) [facility] Start: 10-25-2023 GFR test (Diabetes, CKD 3-4, OR last GFR 15-59) GFR test (Diabetes, CKD 3-4, OR last GFR 15-59) [facility] Start: 11-04-2023 Hemoglobin A1c measurement A1C test (Diabetic or Prediabetic) [facility] Start: 05-04-2023 Lipid panel Lipids [facility] Start: 01-29-2023 Influenza vaccination Flu vaccine (Season Ended) [facility] Start: 11-14-2022 End: 11-14-2022 Patient encounter procedure 11/14/2022 Office Visit Bariatrics Deric Florence MD [address] [place] [address] [facility] Surg Weight Start: 10-29-2022 End: 10-29-2022 Admission to same day surgery center 10/29/2022 Surgery IP Unit Deric Florence MD [address] [place] [address] GASTRIC BYPASS NUNO-EN-Y LAPAROSCOPICNEEDS IV TEAM HANS OR Comment on above: GASTRIC BYPASS NUNO-EN-Y LAPAROSCOPICN EEDS IV TEAM Start: 10-29-2022 End: 10-29-2022 Laps gstr rstcv px w/byp nuno-en-y limb <150 cm GASTRIC BYPASS NUNO-EN-Y LAPAROSCOPIC Morbid obesity (HCC) 10/29/2022 9:00 AM T [facility] Start: 10-29-2022 Subsequent hospital visit by physician 10/29/2022 Hospital Encounter IP Unit Deric Florence MD [address] [place] [address] [facility] Start: 05-11-2022 End: 05-11-2022 Patient encounter procedure [facility] Surg Weight Start: 05-04-2022 End: 05-04-2022 Egd transoral biopsy single/multiple EGD ESOPHAGOGASTRODUODENOSCOPY Gastroesophageal reflux disease 05/04/2022 8:18 AM EDT [facility] Start: 01-29-2022 Influenza vaccination Flu vaccine (#1) [facility] Start: 03-01-2021 Influenza vaccination Flu vaccine (#1) [facility] [employer] Phone: Start: 01-22-2020 Screening for malignant neoplasm of cervix Pap smear [facility] Start: 09-23-2019 Hepatitis B vaccine (3 of 3 - Risk 3-dose series) Hepatitis B vaccine (3 of 3 - Risk 3-dose series) [facility] Start: 2018 DTaP/Tdap/Td vaccine (1 - Tdap) DTaP/Tdap/Td vaccine (1 - Tdap) [facility] Start: 2017 Glaucoma screening Diabetic retinal exam [facility] Start: 2017 Hepatitis C screening Hepatitis C screen [facility] Start: 2017 Urine screening for protein Diabetic Alb to Cr ratio (uACR) test [facility] Start: 2015 Screening for Chlamydia trachomatis [facility] Start: 2014 HIV screening HIV screen [facility] Start: 2011 COVID-19 Vaccine (1) COVID-19 Vaccine (1) [facility] [employer] [facility]: Start: 2011 Depression Monitoring Depression Monitoring [facility] Start: 2011 Depression Screen Depression Screen [facility] Start: 2010 HPV vaccine (1 - 2-dose series) HPV vaccine (1 - 2-dose series) [facility] Start: 2009 Diabetic foot examination Diabetic foot exam [facility] Start: 2005 Pneumococcal 0-64 years Vaccine (1 - PCV) Pneumococcal 0-64 years Vaccine (1 - PCV) [facility] Start: 01-22-2000 Varicella vaccine (1 of 2 - 2-dose childhood series) Varicella vaccine (1 of 2 - 2-dose childhood series) [facility] Start: 1999 COVID-19 Vaccine (#1) COVID-19 Vaccine (#1) [facility] Start: 1999 Hepatitis C screening Hepatitis C screen [facility] [employer] Phone: End: 10-29-2023 Basic metabolic 2000 panel - Serum or Plasma Basic Metabolic Panel Lab Routine Daily for 365 Days starting 10/30/2022 until 10/29/2023, 1 completed [employer] Phone: Comment on above: Daily for 365 Days starting 10/30/2022 u ntil 10/29/2023, 1 completed End: 10-29-2023 CBC W Auto Differential panel - Blood CBC with Auto Differential Lab Routine Daily for 365 Days starting 10/30/2022 until 10/29/2023, 1 completed [employer] Phone: Comment on above: Daily for 365 Days starting 10/30/2022 u ntil 10/29/2023, 1 completed CBC W Auto Differential panel - Blood CBC and differential Lab Routine Anemia during in third trimester Ordered: 04/21/[address] [facility]: Comment on above: Ordered: 04/21/2024 End: 03-27-2021 Culture, Urine Culture, Urine Microbiology Routine One Time for 1 Occurrences starting 03/27/2021 until 03/27/2021 [employer] Phone: Comment on above: One Time for 1 Occurrences starting 03/02 until 03/27/2021 End: 05-04-2022 Cyanocobalamin vitamin b-12 [employer] Phone: Comment on above: 1 Occurrences starting 05/04/2022 until 05/04/2022 End: 05-04-2022 Ferritin [Mass/volume] in Serum or Plasma [facility] [employer] Phone: Comment on above: 1 Occurrences starting 05/04/2022 until 05/04/2022 End: 05-04-2022 Folate [facility] Phone: Comment on above: 1 Occurrences starting 05/04/2022 until 05/04/2022 Glucose [Mass/volume ] in Serum or Plasma [facility] [employer] Phone: Comment on above: 4X Daily (AC & HS) until discontinued st arting 10/29/2022 As Needed until disc ontinued starting 10/29/2022 End: 05-04-2022 Hemoglobin A1c/Hemoglobin.total in Blood [facility] [employer] Phone: Comment on above: 1 Occurrences starting 05/04/2022 until 05/04/2022 End: 10-30-2022 Hemoglobin A1c/Hemoglobin.total in Blood Hemoglobin A1C Lab Routine Tomorrow AM for 1 Occurrences starting 10/30/2022 until 10/30/2022 [employer] Phone: Comment on above: Tomorrow AM for 1 Occurrences starting 0 10/30/2022 until 10/30/2022 Hemoglobin A1c/Hemoglobin.total in Blood Hemoglobin A1C Lab Routine 10/30/2022 4:51 AM EDT [facility] [employer] Phone: End: 10-29-2023 Hepatic function 2000 panel - Serum or Plasma Hepatic Function Panel Lab Routine Daily for 365 Days starting 10/30/2022 until 10/29/2023, 1 completed [facility] [employer] Phone: Comment on above: Daily for 365 Days starting 10/30/2022 u ntil 10/29/2023, 1 completed End: 10-29-2023 Magnesium [Mass/volume] in Serum or Plasma Magnesium Lab Routine Daily for 365 Days starting 10/30/2022 until 10/29/2023, 1 completed [facility] [employer] Phone: Comment on above: Daily for 365 Days starting 10/30/2022 u ntil 10/29/2023, 1 completed Nasal Cannula Oxygen Nasal Cannu la Oxygen Respiratory Care Routine Daily until discontinued starting 10/30/2022 [facility] [employer] Phone: Comment on above: Daily until discontinued starting 2022 Oxygen therapy [Minimum Data Set] Initiate Oxygen Therapy Protocol Respiratory Care Routine As Needed until discontinued starting 10/29/2022 [facility] Phone: Comment on above: As Needed until discontinued starting End: 10-29-2023 Phosphate [Mass/volume] in Serum or Plasma Phosphorus Lab Routine Daily for 365 Days starting 10/30/2022 until 10/29/2023, 1 completed [facility] [employer] Phone: Comment on above: Daily for 365 Days starting 10/30/2022 u ntil 10/29/2023, 1 completed End: 05-04-2022 Prealbumin [Mass/volume] in Serum or Plasma [facility] [employer] Phone: Comment on above: 1 Occurrences starting 05/04/2022 until 05/04/2022 End: 10-29-2022 Spirometry panel [employer] Phone: Comment on above: Continuous until discontinued starting 0 10/29/2022 Every 2hr while awak e until discontinued starting 10/29/2022 Surgical Pathology Surgical Path ology Lab Routine Gastroesophageal reflux disease Release Upon Ordering for 1 Occurrences starting 05/04/2022 [employer] Phone: Comment on above: Release Upon Ordering for 1 Occurrences starting 05/04/2022 Surgical Pathology Surgical Path ology Lab Routine Morbid obesity (HCC) Release Upon Ordering for 1 Occurrences starting 10/29/2022 [facility] Phone: Comment on above: Release Upon Ordering for 1 Occurrences starting 10/29/2022 End: 05-04-2022 Vitamin B1 Vitamin B1 Lab Routine Morbi d obesity due to excess calories (HCC) 1 Occurrences starting 05/04/2022 until 05/04/2022 [facility] Phone: Comment on above: 1 Occurrences starting 05/04/2022 until 05/04/2022 End: 05-04-2022 Zinc Zinc Lab Routine Morbid obes ity due to excess calories (HCC) 1 Occurrences starting 05/04/2022 until 05/04/2022 [facility] Phone: Comment on above: 1 Occurrences starting 05/04/2022 until 05/04/2022 Immunizations Immunization Date Immunization Notes Care Provider Lito enriquez 04-26-2021 tuberculin skin test ; purified protein derivative solution, intradermal Sjwz 2 [facility] [employer] Phone: 05-25-2019 hepatitis B vaccine, adult dosage Sjwz 2 [facility] Phone: 04-01-2019 hepatitis B vaccine, adult dosage Sjwz 2 [facility] Phone: 04-01-2019 meningococcal B vacc ine, recombinant, OMV, adjuvanted Sjwz 2 [facility] Phone: 04-01-2019 tuberculin skin test ; purified protein derivative solution, intradermal Sjwz 2 [facility] [employer] Phone: Payers Date Payer Category Payer Medicaid [employer] [place] [id number] 2023-Present [address] [place], [place] [address] [id number] 2023 Private Health Insurance [employer]ICA[employer] [id number] 2020 Private Health Insurance [id number] [id number]. 7.3.725210.315 2020 Private Health Insurance [id number] 1.2.840.939524.1.13.239.2. 7.3.764488.315 1999 Unknown [id number] 2.16.840.1.469094.3.579.2. 204 1999 Unknown [id number] 2.16.840.1.456107.3.579.2. 204 1999 Unknown [id number] 2.16.840.1.459097.3.579.2. 204 1999 Unknown [id number] 2.16.840.1.853127.3.579.2. 204 1999 Unknown [id number] 2.16.840.1.531664.3.579.2. 128 1999 Unknown [id number] 2.16.840.1.170944.3.579.2. 1285 1999 Unknown [id number] 2.16.840.1.603609.3.579.2. 1285 1999 Unknown [id number] 2.16840.1.426566.3.579.2. 1285 1999 Unknown [id number] 2.16.840.1.285212.3.579.2. 1285 1999 Unknown [id number] 2.16.840.1.549481.3.579.2. 1258 1999 Unknown [id number] 2.16.840.1.032155.3.579.2. 1258 1999 Unknown [id number] 2.16840.1.012775.3.579.2. 1258 1999 Unknown [id number] 2.16.840.1.197036.3.579.2. 1258 1999 Unknown [id number] 2.16.840.1.399110.3.579.2. 1258 1999 Unknown [id number] 2.16.840.1.672666.3.579.2. 1258 1999 Unknown [id number] 2.16.840.1.923971.3.579.2. 1258 1999 Unknown [id number] 2.16.840.1.845149.3.579.2. 1259 1999 Unknown [id number] 2.16.840.1.764301.3.579.2. 1259 1999 Unknown [id number] 2.16.840.1.798865.3.579.2. 1259 Unknown [id number] 2.16.840.1.649903.3.579.2. 212 Unknown [id number] 2.16.840.1.032529.3.579.2. 212 Unknown [id number] 2.16.840.1.721515.3.579.2. 212 Unknown [id number] 2.16.840.1.074789.3.579.2. 212 Unknown [id number] 2.16.840.1.310786.3.579.2. 212 Unknown [id number] 2.16.840.1.913943.3.579.2. 212 Unknown [id number] 2.16.840.1.627617.3.579.2. 212 Unknown [id number] 2.16.840.1.918780.3.579.2. 212 Unknown [id number] 2.16.840.1.620107.3.579.2. 212 Social History Date Type Detail Facility Tobacco smoking stat [facility] Unknown if ever smoked [facility] [employer] Phone: Start: 2000 Sex Assigned At Not on file [employer] Phone: Start: 04-23-2022 End: 05-03-2022 Exposure to SARS-CoV-2 (event) Not sure [employer] Start: 05-03-2022 End: 10-24-2022 Tobacco smoking status [facility] Ex-smoker [facility] [employer] Phone: End: 12-29-2021 History of tobacco use Current smoker [facility] [employer] Phone: End: 12-29-2021 History of tobacco use Cigarette Smoker [facility] [employer] Phone: Start: 05-03-2022 End: 12-12-2023 Tobacco use and exposure Smokeless tobacco non-user [facility] [employer] Phone: Start: 05-04-2022 End: 10-30-2022 Alcohol intake Current drinker of alcohol (finding) [facility] Phone: Start: 05-03-2022 Tobacco Comment Quit 12/2021 FLORIDALMA [employer] Phone: Start: 05-03-2022 Alcohol Comment occ [employer] Phone: Start: 10-29-2022 History SDOH Alcohol Frequency 1 [facility] [employer] Phone: Start: 12-12-2023 Tobacco smoking stat [facility] Never smoked tobacco [facility] Start: 03-09-2024 End: 06-10-2024 Alcoholic beverage intake Ex-drinker (finding) [facility] Start: 12-12-2023 End: 03-09-2024 Alcoholic beverage intake [facility] Start: 12-12-2023 Tobacco use panel [facility] Start: 10-13-2023 [facility] Procedure Code Equipment Code Equipment Origin al Text Equipment Identifier Dates 1 strip by In Vi tro route Daily Use in the morning prior to breakfast, 1 hour after each meal for a total of 4times daily. [id number] Start: 02-19-2024 End: 03-20-2024 1 each by In Vit ro route Daily Use to check FSBS four times daily [id number] Start: 02-19-2024 End: 03-20-2024 Clinical Notes 05-04-2022 to 06-16-2024 Mary Ann Li MA - 06/16/2024 1:30 PM Stacy Dan LPN - 06/10/2024 1:40 PM Miles Zhao LPN - 05/25/2024 2:00 PM MARILEE Wise - 05/06/2024 3:30 PM ESTDischarge InstructionsAttachments Note Date & Type Note Facility 06-16-2024 History of Present illness Narrative Reason for Appointment: Patient ID: Batool Kingsley is a 24 y.o. female who presents for Routine Visit Patient presents today for Return OB appointment. MEDICATIONS Current Outpatient Medications Medication Instructions albuterol HFA 90 mcg/act inhaler cholecalciferol (Vitamin D-3) 50 MCG (1999 UT) capsule 1 capsule, Every 24 hours diphenhydrAMINE (BENADRYL ALLERGY) 25 mg, Oral, Every 6 hours PRN nitrofurantoin (macrocrystal-monohydrate) (MACROBID) 100 mg, Oral, 2 times daily Vit-Fe Fumarate-FA ( Plus/Iron) 27-1 MG [...] Objective: Physical Exam Constitutional: Appearance: Normal appearance. Genitourinary: Right Adnexa: not tender and no mass present. Left Adnexa: not tender and no mass present. No cervical discharge. Breasts: Breasts are soft. Right: Normal. Left: Normal. HENT: Head: Normocephalic. Nose: Nose normal. Mouth/Throat: Mouth: Mucous membranes are moist. Cardiovascular: Rate and Rhythm: Normal rate. Pulmonary: Effort: Pulmonary effort is normal. Abdominal: General: Bowel sounds are normal. Palpations: Abdomen is soft. Musculoskeletal: General: Normal range of motion. Cervical back: Normal range of motion. Neurological: General: No focal deficit present. Mental Status: She is alert. Skin: General: Skin is warm and dry. Psychiatric: Mood and Affect: Mood normal. Vitals and nursing note reviewed. Exam conducted with a egg breaker present. Vitals: There is no height or weight on file to calculate BMI. BP: Patient's last menstrual period was 09/29/2023. ASSESSMENT & PLAN ICD-10-CM 1. Third trimester Z34.93 2. 37 weeks gestation of Z3A.37 Return OB: Patient presents today for a routine obstetrics appointment. Patient is currently 37w2d . Patient states she is doing well but has complaints of being tired due to current . Patient has verbalizes frequent movement. labor precautions was discussed/given and patient was instructed to perform kick counts three times a day. Pt states she lost her mucus plug last night and had some bleeding this morning. Pt is desiring to be checked for dilation at today's visit. Pt's room was prepped for the vaginal exam. Patient signed IOL to be induced on 06/18/24 @ 37.4 weeks gestation. Paperwork faxed to [facility] and nursing spoke with Marion @[facility] to confirm IOL Follow Up: Patient is to return to office in 1 week for routine OB appointment. Documented by Mary Zhao LPN on behalf of: Bryan Dyer DO documented in this encounter [facility] 06-10-2024 History of Present illness Narrative Reason for Appointment: Patient ID: Batool Kingsley is a 24 y.o. female who presents for Routine Visit Patient presents today for Return OB appointment. MEDICATIONS Current Outpatient Medications Medication Instructions albuterol HFA 90 mcg/act inhaler cholecalciferol (Vitamin D-3) 50 MCG (1999 UT) capsule 1 capsule, Every 24 hours diphenhydrAMINE [...] nursing note reviewed. Exam conducted with a egg breaker present. Vitals: There is no height or [...] Bryan Dyer DO documented in this encounter [facility] 05-25-2024 History of Present illness Narrative [...] nursing note reviewed. Exam conducted with a egg breaker present. Vitals: There is no height or [...] scheduled starting this week. Order faxed to [facility] Scheduling and [facility]. Gave patient handouts for [employer]. Patient to return to clinic in 2 weeks for routine OB appointment. Patient will have GBS done at that time. Documented by Mary Zhao LPN on behalf of: Bryan Dyer DO documented in this encounter [facility] 11-06-2024 History of Present illness Narrative Reason for [...] of: MARILEE Espinosa documented in this encounter [facility] 04-21-2024 History of Present illness [...] nursing note reviewed. Exam conducted with a egg breaker present. Vitals: There is no height or [...] Bryan Dyer DO documented in this encounter [facility] 04-07-2024 History of Present illness [...] nursing note reviewed. Exam conducted with a egg breaker present. Vitals: There is no height or [...] of: MARILEE Espinosa documented in this encounter [facility] 03-09-2024 History of Present illness Narrative Reason for Appointment: Patient ID: Batool Kingsley is a 24 y.o. female who presents for Routine Visit Patient presents today for Return OB appointment. MEDICATIONS Current Outpatient Medications Medication Instructions albuterol HFA 90 mcg/act inhaler Alcohol Swabs (Alcohol Prep Pad) 70 % pads 1 Pad, Topical, Daily, Use four times daily to check FSBS. Blood Glucose Monitoring Suppl (D-Care Glucometer) w/Device kit 1 kit, Does not apply, Daily, Use four times daily to check FSBS. In the morning prior to breakfast & 1 hour after each meal for a total of 4times daily. cholecalciferol (Vitamin D-3) 50 MCG (1999 UT) capsule 1 capsule, Every 24 hours Glucose Blood (Blood Glucose Test) strip 1 strip, In Vitro, Daily, Use in the morning prior to breakfast, 1 hour after each meal for a total of 4times daily. hydrOXYzine HCl (Atarax) 25 MG tablet Every 12 hours Lancets Ultra Thin misc 1 each, In Vitro, Daily, Use to check FSBS four times daily magnesium oxide (MAG-OX) 400 mg, Oral, Daily Vit-Fe Fumarate-FA ( Plus/Iron) [...] nursing note reviewed. Exam conducted with a egg breaker present. Vitals: There is no height or weight on file to calculate BMI. BP: 120/72 Patient's last menstrual period was 09/29/2023. ASSESSMENT & PLAN ICD-10-CM 1. Diabetes mellitus screening Z13.1 CBC Glucose tolerance, 1 hour 2. Second trimester Z34.92 POCT urinalysis dipstick manually resulted Patient presents today for a routine obstetrics appointment. Patient is currently 23w1d with a Estimated Date of Delivery: 07/05/24. Discussed sugar levels with patient and that later on in the growth scan will be done locally. Patient voiced that she is not always hungry and patient was advised to attempt to drink her protein. Patient will decide if she would like to obtain 1 hour gtt, but patient will at least get CBC drawn. If patient does not desire to have 1 hour gtt done she will check FSBS for 1 week to have reviewed at appointment. Patient to return to clinic in 4 weeks for routine OB appointment. Documented by Mary Zhao LPN on behalf of: Bryan Dyer DO documented in this encounter [facility] 10-30-2022 Hospital Discharge instructions Lashawn Ordoñez RN - 10/30/2022 6:49 AM EDT Your information: Name: Batool Kingsley : 2000 Dr. Florence's Discharge Instructions for Bariatric Surgery [facility] Discharge Instructions For [...] blood sugars as ordered by PCP or [employer]. Follow up with PCP or [employer] regarding diabetic medications. Make sure you take any medicines you were on for depression or anxiety. FOLLOW-UP Follow-up appointment with surgeon 10-14 days after surgery. Complete lab work prior to this appointment. Follow-up with PCP and/or [employer] prior to seeing surgeon. CALL [facility] [phone] IF ANY OF THE FOLLOWING OCCURS TO [...] Weapons (Notify Protective Services/Security): None Other Valuables: [address], Wal[employer] Home Medications: None Valuables Given To: [...] through Care Everywhere.Gastric Bypass Surgery: Nuno-en-Y: Post-op (Portuguese)documented in this encounter [facility] [employer] Work Phone: 10-30-2022 Hospital course Narrative Physician Discharge Summary Batool Kingsley [id number] Admit date: 10/29/2022 Discharge date and time: [...] Your Medications These medications were sent to [address] [phone] - [phone] [place] [id number] traMADol 50 MG tablet Activity: no lifting, [...] 10/30/2022 6:48 AM documented in this encounter [facility] [employer] Phone: 10-30-2022 History of Present illness Narrative Internal Medicine Progress Note NATHALIE=[facility] Shanta Hernandez D.O., F.A.C.O.I. Shabana OconnorO., F.A.C.O.I. Juliocesar Werner D.O. Francine Kilpatrick, MSN, MONORAIL OPERATOR, PENSION ADMINISTRATOR-C Yang Hsu, MSN, MONORAIL OPERATOR-SUPERIOR COURT JUSTICE Primary Care Physician: KAELA FRENCH APRN - SUPERIOR COURT JUSTICE Admitting Physician: Deric Florence MD Admission date and time: 10/29/2022 6:02 AM Room: [address] [place] [address] Admitting diagnosis: Morbid obesity (HCC) [E66.01] Post-operative [...] reflux disease with possible hiatal hernia repair Ozc-ibkmysq-yjfouxnto diabetes mellitus type 2 Anxiety Plan: Batool [...] 6:37 AM documented in this encounter [facility] Phone: 10-24-2022 History of Present illness Narrative Images from the original note were not included. [facility] PRE OP INSTRUCTIONS FOR Batool Kingsley [...] makeup (including no eye makeup) or nail vincentian on your fingers or toes. DO NOT wear any jewelry or piercings on day of surgery. All body piercing jewelry must be removed. Shower the night before surgery with _x__Antibacterial soap /CHG WIPES___x If you have a Living Will and Durable Power of Drywall Finishing Foreman for Healthcare, please bring in a copy. [...] and go to information desk Please call BOLT HEADER if you have any further questions. Pre Admit Testing [phone] [facility] [phone] documented in this encounter [facility] [employer] Work Phone: 05-04-2022 Hospital Discharge instructions Ashlie [...] the day after the test, use an adpb-ujn-pbhtdwh spray to numb your throat. Follow-up care [...] Where can you learn more? Go to [email or web address] and sign in to your Daily Pic account. Enter J454 in the Search Health Information box to learn more about Upper GI Endoscopy: What to Expect at Home. If you do not have an account, please click on the Sign Up Now link. Current as of: December 04, 2021 Content Version: 13.4 [employer]. Care instructions adapted under license by [employer]. If you have questions about a medical condition or this instruction, always ask your healthcare professional. [employer] disclaims any warranty or liability for your use of this information. documented in this encounter [facility] LEON[facility] [employer] Work Phone: 05-04-2022 History of Present illness Narrative SBAR form completed and placed on chart. Chart with patient in transit. Images from the original note were not included. [facility] PRE OP INSTRUCTIONS FOR Batool Kingsley [...] makeup (including no eye makeup) or nail vincentian on your fingers or toes. DO NOT wear any jewelry or piercings on day of surgery. All body piercing jewelry must be removed. Shower the night before surgery with _x__Antibacterial soap /ALEXANDER WIPES TOTAL JOINT REPLACEMENT/HYSTERECTOMY PATIENTS ONLY---Remember to bring Blood Bank bracelet to the hospital on the day of surgery. If you have a Living Will and Durable Power of Drywall Finishing Foreman for Healthcare, please bring in a copy. [...] safety of all patients. Other Please call BOLT HEADER if you have any further questions. Pre Admit Testing [phone] [facility] [phone] documented in this encounter FLORIDALMA GIPSON [employer] Phone: Evaluation note Diagnosis DUB (dysfunctional uterine bleeding)- Primary Other disorder of menstruation and other abnormal bleeding from female genital tract documented in this encounter [employer] Phone: evaluation note* Diagnosis Gastroesophageal reflux disease- Primary Esophageal reflux Morbid obesity due to excess calories (HCC) documented in this encounter [employer] Phone: evaluation note* Diagnosis Morbid obesity (HCC)- Primary Morbid obesity Preop testing- Primary Preoperative examination, unspecified 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 Morbid obesity (HCC) Morbid obesity documented in this encounter [employer] Phone: evaluation note* Diagnosis S/P gastric bypass- Primary Bariatric surgery status Morbid obesity (HCC) Morbid obesity Post-operative state Other postprocedural status Morbid obesity (HCC) Morbid obesity Post-operative state Other postprocedural status documented in this encounter [employer] Phone: evaluation note* Diagnosis 27 weeks gestation of Second trimester state, incidental Gestational diabetes mellitus (GDM), antepartum, gestational diabetes method of control unspecified Anemia affecting in second trimester [facility] Diagnosis Third trimester state, incidental 29 weeks gestation of Anemia during in third trimester Elevated glucose tolerance test Impaired glucose tolerance test Abnormal thyroid stimulating hormone (TSH) level [facility] Diagnosis Third trimester state, incidental 31 weeks gestation of Anxiety, generalized (CMS/HCC) Sinusitis, unspecified chronicity, unspecified location [facility] Diagnosis 34 weeks gestation of Third trimester state, incidental Insomnia, unspecified type History of gastric bypass Gestational diabetes mellitus (GDM), antepartum, gestational diabetes method of control unspecified [facility] Diagnosis Third trimester state, incidental 36 weeks gestation of Non-compliant patient, third trimester History of gastric bypass Gestational diabetes mellitus (GDM), antepartum, gestational diabetes method of control unspecified [facility] Diagnosis Third trimester state, incidental 37 weeks gestation of [facility] Diagnosis Diabetes mellitus screening Screening for diabetes mellitus Second trimester state, incidental [facility]* Attachments The following attachments cannot be sent through Care Everywhere. * AUB (Abnormal Uterine Bleeding) (Portuguese) [facility] Work Phone: Summary Purpose Family History No [...] section and content) DATE CREATED AUTHOR 07/16/2020 [facility] DATE CREATED AUTHOR AUTHOR'S ORGANIZ ATION 05/05/2022 [facility] DATE CREATED AUTHOR AUTHOR'S ORGANIZ ATION 02/07/2023 [facility] DATE CREATED AUTHOR AUTHOR'S ORGANIZ ATION 06/04/2023 [facility] DATE CREATED AUTHOR AUTHOR'S ORGANIZ ATION 02/19/2024 [facility] DATE CREATED AUTHOR AUTHOR'S ORGANIZ ATION 03/19/2024 [facility] DATE CREATED AUTHOR AUTHOR'S ORGANIZ ATION 06/19/2024 [facility] d[facility] Specialists EPIC Reason for Visit (unrecogniz ed section and content) Reason Comments Vaginal Bleeding 4 pad per hour, larg e clots present Specialty Diagnoses / Procedures Referred By Geronimo t Referred To Contact Diagnoses Gastroesophageal reflux disease Gastroesophageal reflux disease [K21.9] Procedures AR EGD TRANSORAL BIOPSY SINGLE/MULTIPLE AR EGD TRANSORAL BIOPSY SINGLE/MULTIPLE AR ESOPHAGOGASTRODUODENOSCOPY TRANSORAL DIAGNOSTIC AR EGD BALLOON DILATION ESOPHAGUS <30 MM DIAM EGD ESOPHAGOGASTRODUODENOSCOPY Deric Florence MD [address] [place] [address] [place] [id number] [facility] [address] [place] [address] Referral ID Status Reason Start Date Expiration Date Visits Re quested Visits Authorized [id number] 1 1 Specialty Diagnoses / Procedures Referred By Geronimo t Referred To Contact Diagnoses Morbid obesity (HCC) Morbid obesity (HCC) [E66.01] Procedures AR LAPS GSTR RSTCV PX W/BYP NUNO-EN-Y LIMB <150 CM GASTRIC BYPASS NUNO-EN-Y LAPAROSCOPIC Deric Florence MD [address] [place] [address] [facility] [address] [place] [address] Referral ID Status Reason Start Date Expiration Date Visits Re quested Visits Authorized [id number] 1 1 Reason Comments Routine Visit Continuous [...] 100 mL IVPB (COMPLETED) 3,000 mg, IntraVENous, APARTMENT COMMUNITY ASSISTANT MANAGER TO O.R., 1 dose, On Sat10/29/22 at 0715, Antimicrobial Indications: Surgical Prophylaxis, Administer within 1 hour prior to incision. Repeat in 3-4 hours after initial dose if still intra-op., Pre-op (day of surgery) 0844 (Given - Provider: Maggie Avila APRN - STREET VENDOR) insulin lispro (HUMALOG) injection vial 0-4 Units [...] of order., Post-op bupivacaine-EPINEPHrine PF (MARCAINE-w/EPINEPHrine) 0.25% -[id number] injection (CANCELED) PRN, Starting on Sat10/29/22 at [...] 2030 (Given - Provider: Jennifer Huff RN) 035 (Given - Provider: Isak Bradshaw, [...] (See Alternative - Provider: Jennifer Huff RN) 355 (See Alternative - Provider: Isak Bradshaw, MELANIA)0856 (Given - Provider: Helen Bradford, RN) ondansetron [...]
Care Teams (unrecognized sec tion and content) Circuitry Negative Inspector Relationship Specialty Start Date End Date [facility], [employer] OPER[employer] [address] JUSTICE [id number] [facility] [place] [address] PCP - General Certified Nurse Practitioner 04/27/22 Circuitry Negative Inspector Relationship Specialty Start Date End Date [facility], MONORAIL OPERATOR - [address] JUSTICE [id number] [facility] [place] [address] PCP - General Certified Nurse Practitioner 09/14/22 Circuitry Negative Inspector Relationship Specialty Start Date End Date [facility], MONORAIL OPERATOR - [facility] [address] [facility]. [place] [id number] PCP - General Certified Nurse Practitioner 09/14/22 [...] BE BASED ON THE PRIMARY CLINICAL RECORDS. [facility] [employer] [facility]. provides no warranty or guarantee of the accuracy or completeness of information in this document.
--- NOTE | 2024-06-23 14:39 | PC.NURSE ---
Kenny Renae and 5 day old Stew arrive for follow up appointment. States I am tired, very emotional and scared LC encourages pt to expound on feelings. Batool feels like she failed the baby by having a C/S, and that she will continue to fail as a mother. Feeling discussed and validated. 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 Kenny also states he is [id number] hard to do the best, and sometimes Batool is frustrated because he can't do it right Batool agrees that she feels like everything needs to be perfect. Discussed blues, vs depression vs high anxiety. Batool and Kenny state are aware of possible complication as both deal with anxiety disorder already. Batool with VSS and assessment WNL. Baby doing well, VSS and assessment WNL. Taking 1.5 oz every 3 hours , 5 wets and 4 stools Reassurance given . PCP to follow. Home at this time
[2024-06-23 14:40] VITALS: BP 124/79; PULSE 78; TEMP 36.7; O2SAT 96
== END 2024-06-23 14:43 | disposition home or self-care (01) ==
LOC: FBCO 08:43
PROVIDERS: Visit Provider Obstetrics & Gynecology
DX: Z39.1 Encounter for care and examination of lactating mother (principal)

== ENCOUNTER 2024-06-27 14:05 | Emergency (ER) | payer OTHER, SELFPAY ==
[2024-06-27 14:21] VITALS: BP 132/75; PULSE 72; TEMP 37.1; O2SAT 97; BMI 40.7
--- OUTSIDE RECORDS SUMMARY | 2024-06-27 14:26 | XMS_ITS | CCD ---
Author Organization [facility] Care Team Providers Care Coroner Forensic Technician Name Role Phone Unavailable Primary Care Provider Unavailabl e [place] TESTING DIRECTOR - SHERIE, Kaela Primary Care Provider [phone] DERIC FLORENCE Referring Unavailable GILLIAN, KAELA Primary Care Unavailable [place] TESTING DIRECTOR - ATOMIC WELDER, Kaela Primary Care Provider GILLIAN, KAELA Primary [...] Drug Class(es) Dates Sig (Normalized) Sig (Original) [id number] 200 actuat albuterol 0.09 mg/actuat metered dose [...] WITH AUTO DIFFon BASOPHILS ABSOLUTE AUTO 0 [facility] Basophils/100 WBC (Bld) 0.1 % Low 0.2 - 2.0 % [facility] Eosinophils/100 WBC (Bld) 0.3 % Low 0.9 - 7.0 % [facility] Erythrocyte distribution width (RBC) [Ratio] 14.1 % 11.0 - 15.0 % [facility] Hematocrit (Bld) [Volume fraction] 24.7 % Low 36.0 - 48.0 % [facility] Hemoglobin (Bld) [Mass/Vol] 8 g/dL Low 12.0 - 16.0 g/dL [facility] IMMATURE GRANULOCYTES ABS AUTO 0.04 High [facility] Immature granulocytes/100 WBC (Bld) 0.6 % High 0.0 - 0.5 % [facility] Interpretation and review of laboratory results Abnormal [facility] LYMPHOCYTES ABSOLUTE AUTO 1.3 [facility] Lymphocytes/100 WBC (Bld) 19.8 % Low 20.5 - 60.0 % [facility] MCH (RBC) [Entitic mass] 31.4 pg 26.7 - 34.0 pg [facility] MCHC (RBC) [Mass/Vol] 32.4 g/dL 29.9 - 35.2 g/dL [facility] MCV (RBC) [Entitic vol] 96.9 fL 81.0 - 99.0 fL [facility] MONOCYTES ABSOLUTE AUTO 0.3 [facility] Monocytes/100 WBC (Bld) 4.3 % 1.7 - 12.0 % [facility] NEUTROPHILS ABSOLUTE AUTO 5 [facility] Neutrophils/100 WBC (Bld) 74.9 % 43.0 - 75.0 % [facility] Platelet mean volume (Bld) [Entitic vol] 10.8 fL 9.5 - 13.5 fL [facility] EO # 0 [facility] PLT 138 Low [facility] RBC 2.55 Low [facility] WBC 6.7 [facility] CBC WITH PLATELET NO DI FFERENTIALon 06-18-2024 Erythrocyte distribution width (RBC) [Ratio] 13.6 % 11.0 - 15.0 % [facility] Hematocrit (Bld) [Volume fraction] 31.1 % Low 36.0 - 48.0 % [facility] Hemoglobin (Bld) [Mass/Vol] 10.6 g/dL Low 12.0 - 16.0 g/dL [facility] Interpretation and review of laboratory results Abnormal [facility] MCH (RBC) [Entitic mass] 31.6 pg 26.7 - 34.0 pg [facility] MCHC (RBC) [Mass/Vol] 34.1 g/dL 29.9 - 35.2 g/dL [facility] MCV (RBC) [Entitic vol] 92.8 fL 81.0 - 99.0 fL [facility] Platelet mean volume (Bld) [Entitic vol] 11.6 fL 9.5 - 13.5 fL [facility] PLT 211 [facility] RBC 3.35 Low [facility] WBC 9.3 [facility] Health[facility] Urinalysis macro (dipstick) panel (U)on 06-16-2024 Bilirubin, UA Negative Negative - 4(70) +++ mg/dL [facility] Blood, UA Negative Negative - 50 Marcus/mcL [facility] Clarity, UA Clear [facility] re Color, UA Yellow [facility] e Glucose, UA Negative Negative - 1999(110) ++++ mg/dL [facility] Interpretation and review of laboratory results Normal [facility] Ketones, UA Negative Negative - 160(16) ++++ mg/dL [facility] Leukocytes, UA Negative Negative - 500+++ Henrique/mcL [facility] Nitrite, UA Negative Negative - Positive [facility] pH, UA 7 5 - 9 [facility] e Protein, UA Negative Negative - 1999(20) ++++ mg/dL [facility] Spec Grav, UA 1.025 1 - 1.03 [facility] Urobilinogen, UA 1.0 0.2 - 12 mg/dL [facility] ALL MISCELLANEOUS TESTon MISCELLANEOUS TEST COMMENT . [facility] Comment on above: Test Ordered: [id number] Strep Gp B SUJATA+Rflx Strep Gp B SUJATA+Rflx Negative CB Reference Range: Negative Centers for Disease Control and Prevention (CDC) and [place] [employer] of Obstetricians and Gynecologists (ACOG) guidelines [...] resistance to clindamycin is noted. Performed at: [facility] [address] [id number] Retail Delivery Driver: Guillermo Gu PhD, Phone: [phone] VAG/REC [id number] Group B Streptococcus Colonization Detection, SUJATA With Refle [facility] Healthcar e Urinalysis macro (dipstick) panel (U)on 06-10-2024 Bilirubin, UA Negative Negative - 4(70) +++ mg/dL [facility] Blood, UA Negative Negative - 50 Marcus/mcL [facility] Clarity, UA Clear [facility] re Color, UA Yellow [facility] e Glucose, UA Negative Negative - 1999(110) ++++ mg/dL [facility] Interpretation and review of laboratory results Abnormal [facility] Ketones, UA Positive Negative - 160(16) ++++ mg/dL [facility] Comment on above: trace Leukocytes, UA Negative Negative - 500+++ Henrique/mcL [facility] Nitrite, UA Negative Negative - Positive [facility] pH, UA 5.5 5 - 9 [facility], [facility]A Trace Negative - 1999(20) ++++ mg/dL [facility] Spec Grav, UA 1.03 1 - 1.03 [facility] Urobilinogen, UA 1.0 0.2 - 12 mg/dL [facility] Urinalysis macro (dipstick) panel (U)on 05-25-2024 Bilirubin, UA Negative Negative - 4(70) +++ mg/dL [facility] Blood, UA Negative Negative - 50 Marcus/mcL [facility] Healthcare Clarity, UA Clear [facility] re Color, UA Yellow [facility] Healthcar e Glucose, UA Negative Negative - 1999(110) ++++ mg/dL [facility] Interpretation and review of laboratory results Normal [facility] Ketones, UA Negative Negative - 160(16) ++++ mg/dL [facility] Leukocytes, UA Negative Negative - 500+++ Henrique/mcL [facility] Nitrite, UA Negative Negative - Positive [facility] pH, UA 5.5 5 - 9 [facility] Healthcar e Protein, UA Negative Negative - 1999(20) ++++ mg/dL [facility] Spec Grav, UA 1.03 1 - 1.03 [facility] Urobilinogen, UA 0.2 0.2 - 12 mg/dL [facility] Urinalysis macro (dipstick) panel (U)on 05-06-2024 Bilirubin, UA Positive Negative - 4(70) +++ mg/dL [facility] Comment on above: small Blood, UA Negative Negative - 50 Marcus/mcL [facility] Clarity, UA Clear [facility] Healthca re Color, UA Yellow [facility] Health[facility] e Glucose, UA Negative Negative - 1999(110) ++++ mg/dL [facility] Interpretation and review of laboratory results Abnormal [facility] Ketones, UA Negative Negative - 160(16) ++++ mg/dL [facility] Leukocytes, UA Negative Negative - 500+++ Henrique/mcL [facility] Nitrite, UA Negative Negative - Positive [facility] pH, UA 5.5 5 - 9 [facility] Healthcar e Protein, UA Negative Negative - 1999(20) ++++ mg/dL [facility] Spec Grav, UA 1.03 1 - 1.03 [facility] Urobilinogen, UA 1.0 0.2 - 12 mg/dL [facility] ALL CBC WITH AUTO DIFFon BASOPHILS ABSOLUTE AUTO 0 [facility] Basophils/100 WBC (Bld) 0.2 % 0.2 - 2.0 % [facility] Eosinophils/100 WBC (Bld) 1.7 % 0.9 - 7.0 % [facility] Erythrocyte distribution width (RBC) [Ratio] 12.8 % 11.0 - 15.0 % [facility] Hematocrit (Bld) [Volume fraction] 33.8 % Low 36.0 - 48.0 % [facility] Hemoglobin (Bld) [Mass/Vol] 11.6 g/dL Low 12.0 - 16.0 g/dL [facility] IMMATURE GRANULOCYTES ABS AUTO 0.06 High [facility] Immature granulocytes/100 WBC (Bld) 0.6 % High 0.0 - 0.5 % [facility] Interpretation and review of laboratory results Abnormal [facility] LYMPHOCYTES ABSOLUTE AUTO 3.1 [facility] Lymphocytes/100 WBC (Bld) 31.7 % 20.5 - 60.0 % [facility] MCH (RBC) [Entitic mass] 32 pg 26.7 - 34.0 pg [facility] MCHC (RBC) [Mass/Vol] 34.3 g/dL 29.9 - 35.2 g/dL [facility] MCV (RBC) [Entitic vol] 93.1 fL 81.0 - 99.0 fL [facility] MONOCYTES ABSOLUTE AUTO 0.5 [facility] Monocytes/100 WBC (Bld) 5.1 % 1.7 - 12.0 % [facility] NEUTROPHILS ABSOLUTE AUTO 5.9 [facility] Neutrophils/100 WBC (Bld) 60.7 % 43.0 - 75.0 % [facility] Platelet mean volume (Bld) [Entitic vol] 10.2 fL 9.5 - 13.5 fL [facility] TBH EO # 0.2 [facility] Healthcar e TB PLT 249 [facility] e TB RBC 3.63 Low [facility] Healthcar e TBH WBC 9.6 [facility] Healthcar e Urinalysis macro (dipstick) panel (U)on 04-07-2024 Bilirubin, UA Negative Negative - 4(70) +++ mg/dL [facility] Blood, UA Negative Negative - 50 Marcus/mcL [facility] Clarity, UA Clear [facility] Health[facility] re Color, UA Yellow [facility] Healthcar e Glucose, UA Negative Negative - 2000(110) ++++ mg/dL [facility] Interpretation and review of laboratory results Normal [facility] Ketones, UA Negative Negative - 160(16) ++++ mg/dL [facility] Leukocytes, UA Negative Negative - 500+++ Henrique/mcL [facility] Nitrite, UA Negative Negative - Positive [facility] pH, UA 6.5 5 - 9 [facility] Healthcar e Protein, UA Negative Negative - 2000(20) ++++ mg/dL [facility] Spec Grav, UA 1.025 1 - 1.03 [facility] Urobilinogen, UA 1.0 0.2 - 12 mg/dL [facility] ALL CBC WITH AUTO DIFFon BASOPHILS ABSOLUTE AUTO 0.0 [facility] Basophils/100 WBC (Bld) 0.4 % 0.2 - 2.0 % [facility] Eosinophils/100 WBC (Bld) 0.9 % 0.9 - 7.0 % [facility] Erythrocyte distribution width (RBC) [Ratio] 13.3 % 11.0 - 15.0 % [facility] Hematocrit (Bld) [Volume fraction] 29.9 % Low 36.0 - 48.0 % [facility] Hemoglobin (Bld) [Mass/Vol] 10.3 g/dL Low 12.0 - 16.0 g/dL [facility] IMMATURE GRANULOCYTES ABS AUTO 0.10 High [facility] Immature granulocytes/100 WBC (Bld) 1.1 % High 0.0 - 0.5 % [facility] Interpretation and review of laboratory results Abnormal [facility] LYMPHOCYTES ABSOLUTE AUTO 3.2 [facility] Lymphocytes/100 WBC (Bld) 34.2 % 20.5 - 60.0 % [facility] MCH (RBC) [Entitic mass] 32.4 pg 26.7 - 34.0 pg [facility] MCHC (RBC) [Mass/Vol] 34.4 g/dL 29.9 - 35.2 g/dL [facility] MCV (RBC) [Entitic vol] 94.0 fL 81.0 - 99.0 fL [facility] MONOCYTES ABSOLUTE AUTO 0.4 [facility] Monocytes/100 WBC (Bld) 4.7 % 1.7 - 12.0 % [facility] NEUTROPHILS ABSOLUTE AUTO 5.5 [facility] Neutrophils/100 WBC (Bld) 58.7 % 43.0 - 75.0 % [facility] Platelet mean volume (Bld) [Entitic vol] 9.9 fL 9.5 - 13.5 fL [facility] TBH EO # 0.1 [facility] TB PLT 209 [facility] TB RBC 3.18 Low [facility] Health[facility] e TBH WBC 9.4 [facility] Healthcar e [facility] Healthcar e Urinalysis macro (dipstick) panel (U)on 03-09-2024 Bilirubin, UA Negative Negative - 4(70) +++ mg/dL [facility] Blood, UA Negative Negative - 50 Marcus/mcL [facility] Clarity, UA Clear [facility] re Color, UA Yellow [facility] e Glucose, UA Negative Negative - 1999(110) ++++ mg/dL [facility] Interpretation and review of laboratory results Abnormal [facility] Ketones, UA Positive Negative - 160(16) ++++ mg/dL [facility] Comment on above: trace Leukocytes, UA Negative Negative - 500+++ Henrique/mcL [facility] Nitrite, UA Negative Negative - Positive [facility] pH, UA 6.5 5 - 9 [facility] e Protein, UA Negative Negative - 1999(20) ++++ mg/dL [facility] Spec Grav, UA 1.030 1 - 1.03 [facility] Urobilinogen, UA 1.0 0.2 - 12 mg/dL [facility] HCG ( test) Ql (U)o n 11-10-2023 Beta HCG ( test) Ql (U) Positive Abnormal NEG [facility] Comment on above: Performed By: #### 2 106-3 #### [facility] ([id number]) [address] [place] [address] URN MACROSCOPIC NURon 2023 BILIRUBIN [place] Negative Normal NEG [facility] Comment on above: Performed By: #### N UM #### [facility] ([id number]) [address] [place] [address] BLOOD/HGB [place] Trace Abnormal NEG [facility] Comment on above: Performed By: #### N UM #### [facility] ([id number]) [address] [place] [address] [place] [address] GLUCOSE [place] Negative Normal NEG [facility] Comment on above: Performed By: #### N UM #### [facility] ([id number]) [address] [place] [address] [place] [address] KETONES [place] Trace Abnormal NEG [facility] Comment on above: Performed By: #### N UM #### [facility] ([id number]) [address] [place] [address] [place] [address] LEUKOCYTE ESTERASE [place] Small Abnormal NEG [facility] Comment on above: Performed By: #### N UM #### [facility] ([id number]) [address] [place] [address] [place] [address] NITRITE [place] Negative Normal NEG [facility] Comment on above: Performed By: #### N UM #### [facility] ([id number]) [address] [place] [address] PH [place] 6.0 Normal 5.0-8.[address] [facility] Comment on above: Performed By: #### N UM #### [facility] ([id number]) [address] [place] [address] [place] [address] PROTEIN [place] Negative Normal NEG [facility] Comment on above: Performed By: #### N UM #### [facility] ([id number]) [address] [place] [address] [place] [address] SPECIFIC GRAVITY [place] 1.025 Normal 1.003-1.035 [facility] Comment on above: Performed By: #### N UM #### [facility] ([id number]) [address] [place] [address] [place] [address] UROBILINOGEN [place] 2.0 eu/dL High <1.1 [facility] Comment on above: Performed By: #### N UM #### [facility] ([id number]) [address] [facility], [place] [address] SARS/FLU A+B/RSV by NAAT/Mol devin 08-14-2023 SARS/FLU [...] operators who are performing tests using either [employer] or [employer] systems and is limited to laboratories that [...] repeat. Fact Sheet for Healthcare Providers: https://www.fda.gov /media/838348/downl oad Fact Sheet for Patients: https://www.fda.gov /media/116102/downl oad Normal [facility] Comment on above: Performed By: #### C OVFLR #### [facility] ([id number]) [address] [place] [address], [place] [address] VITAMIN B1-THIAMINE WHOLE BL Don 12-20-2022 VITAMIN B1-THIAMINE WHOLE BLD 142.2 nmol/L Normal 66.5-200.0 [facility] Comment on above: Order Comment: FAX R ESULTS TO DR FLORENCE: [phone] Result Comment: This test was developed and its performance characteristics determined by [facility]. It has not been cleared or approved by the Food and Drug Administration. Performed at: [address] [id number] Retail Delivery Driver: Estuardo Michelle MD, Phone: [phone] This test was developed and its performance characteristics determined by [employer]. It has not been cleared or approved by the Food and Drug Administration. Performed By: #### V ITB1, ZINC #### [facility] [address] [place] [address] #### B12, FOL, CMP, PREALB, ANDREZ, CBCD #### [facility] [address] [place] [address] ZINC, PLASMAon 12-18-2022 ZINC, PLASMA 86 ug/dL Normal 44-115 [facility] Comment on above: Order Comment: FAX R ESULTS TO DR FLORENCE: [phone] Result Comment: This test was developed and its performance characteristics determined by [facility]. It has not been cleared or approved by the Food and Drug Administration. Detection Limit = 5 Performed at: [address] [id number] Retail Delivery Driver: Estuardo Michelle MD, Phone: [phone] This test was developed and its performance characteristics determined by [employer]. It has not been cleared or approved by the Food and Drug Administration. Performed By: #### V ITB1, ZINC #### [facility] [address] [place] [address] #### B12, FOL, CMP, PREALB, ANDREZ, CBCD #### [facility] [address] [place] [address] CBC with DIFFERENTIALon 11-29 Basophils (Bld) [#/Vol] 0.0 10*3/uL Normal 0.0-0.1 [facility] Comment on above: Order Comment: FAX R ESULTS TO DR FLORENCE: [phone] Performed By: #### V ITB1, ZINC #### [facility] [address] [place] [address] #### B12, FOL, CMP, PREALB, ANDREZ, CBCD #### [facility] [address] [place] [address] Basophils/100 WBC (Bld) 0.5 % Normal 0.0-1.0 [facility] Comment on above: Order Comment: FAX R ESULTS TO DR FLORENCE: [phone] Performed By: #### V ITB1, ZINC #### [facility] [address] [place] [address] #### B12, FOL, CMP, PREALB, ANDREZ, CBCD #### [facility] [address] [place] [address] Eosinophils (Bld) [#/Vol] 0.4 10*3/uL Normal 0.0-0.4 [facility] Comment on above: Order Comment: FAX R ESULTS TO DR FLORENCE: [phone] Performed By: #### V ITB1, ZINC #### [facility] [address] [place] [address] #### B12, FOL, CMP, PREALB, ANDREZ, CBCD #### [facility] [address] [place] [address] Eosinophils/100 WBC (Bld) 4.8 % High 1.0-4.0 [facility] Comment on above: Order Comment: FAX R ESULTS TO DR FLORENCE: [phone] Performed By: #### V ITB1, ZINC #### [facility] [address] [place] [address] #### B12, FOL, CMP, PREALB, ANDREZ, CBCD #### [facility] [address] [place] [address] Hematocrit (Bld) [Volume fraction] 41.9 % Normal 37.0-47.0 [facility] Comment on above: Order Comment: FAX R ESULTS TO DR FLORENCE: [phone] Performed By: #### V ITB1, ZINC #### [facility] [address] [place] [address] #### B12, FOL, CMP, PREALB, ANDREZ, CBCD #### [facility] [address] [place] [address] Hemoglobin (Bld) [Mass/Vol] 13.8 g/dL Normal 12.0-16.0 [facility] Comment on above: Order Comment: FAX R ESULTS TO DR FLORENCE: [phone] Performed By: #### V ITB1, ZINC #### [facility] [address] [place] [address] #### B12, FOL, CMP, PREALB, ANDREZ, CBCD #### [facility] [address] [place] [address] IG # 0.0 10*3/uL Normal 0.0-0.1 [facility] Comment on above: Order Comment: FAX R ESULTS TO DR FLORENCE: [phone] Performed By: #### V ITB1, ZINC #### [facility] [address] [place] [address] #### B12, FOL, CMP, PREALB, ANDREZ, CBCD #### [facility] [address] [place] [address] IG % 0.4 % Normal 0.0-1.0 [facility] Comment on above: Order Comment: FAX R ESULTS TO DR FLORENCE: [phone] Performed By: #### V ITB1, ZINC #### [facility] [address] [place] [address] #### B12, FOL, CMP, PREALB, ANDREZ, CBCD #### [facility] [address] [place] [address] Lymphocytes (Bld) [#/Vol] 3.8 10*3/uL Normal 1.3-4.4 [facility] Comment on above: Order Comment: FAX R ESULTS TO DR FLORENCE: [phone] Performed By: #### V ITB1, ZINC #### [facility] [address] [place] [address] #### B12, FOL, CMP, PREALB, ANDREZ, CBCD #### [facility] [address] [place] [address] Lymphocytes/100 WBC (Bld) 45.5 % High 27.0-41.0 [facility] Comment on above: Order Comment: FAX R ESULTS TO DR FLORENCE: [phone] Performed By: #### V ITB1, ZINC #### [facility] [address] [place] [address] #### B12, FOL, CMP, PREALB, ANDREZ, CBCD #### [facility] [address] [place] [address] MCV (RBC) [Entitic vol] 89.3 fL Normal 81.0-99.0 [facility] Comment on above: Order Comment: FAX R ESULTS TO DR FLORENCE: [phone] Performed By: #### V ITB1, ZINC #### [facility] [address] [place] [address] #### B12, FOL, CMP, PREALB, ANDREZ, CBCD #### [facility] [address] [place] [address] MEAN CORPUSCULAR HGB 29.4 pg Normal 27.0-31.0 [facility] Comment on above: Order Comment: FAX R ESULTS TO DR FLORENCE: [phone] Performed By: #### V ITB1, ZINC #### [facility] [address] [place] [address] #### B12, FOL, CMP, PREALB, ANDREZ, CBCD #### [facility] [address] [place] [address] MEAN CORPUSCULAR HGB CONC 32.9 g/dl Low 33.0-37.0 [facility] Comment on above: Order Comment: FAX R ESULTS TO DR FLORENCE: [phone] Performed By: #### V ITB1, ZINC #### [facility] [address] [place] [address] #### B12, FOL, CMP, PREALB, ANDREZ, CBCD #### [facility] [address] [place] [address] Monocytes (Bld) [#/Vol] 0.4 10*3/uL Normal 0.1-1.0 [facility] Comment on above: Order Comment: FAX R ESULTS TO DR FLORENCE: [phone] Performed By: #### V ITB1, ZINC #### [facility] [address] [place] [address] #### B12, FOL, CMP, PREALB, ANDREZ, CBCD #### [facility] [address] [place] [address] Monocytes/100 WBC (Bld) 4.3 % Normal 3.0-9.0 [facility] Comment on above: Order Comment: FAX R ESULTS TO DR FLORENCE: [phone] Performed By: #### V ITB1, ZINC #### [facility] [address] [place] [address] #### B12, FOL, CMP, PREALB, ANDREZ, CBCD #### [facility] [address] [place] [address] Neutrophils (Bld) [#/Vol] 3.7 10*3/uL Normal 2.3-7.9 [facility] Comment on above: Order Comment: FAX R ESULTS TO DR FLORENCE: [phone] Performed By: #### V ITB1, ZINC #### [facility] [address] [place] [address] #### B12, FOL, CMP, PREALB, ANDREZ, CBCD #### [facility] [address] [place] [address] Neutrophils/100 WBC (Bld) 44.5 % Low 47.0-73.0 [facility] Comment on above: Order Comment: FAX R ESULTS TO DR FLORENCE: [phone] Performed By: #### V ITB1, ZINC #### [facility] [address] [place] [address] #### B12, FOL, CMP, PREALB, ANDREZ, CBCD #### [facility] [address] [place] [address] NUCLEATED RED BLOOD CELL 0.0 10*3/uL Normal 0.0-0.0 [facility] Comment on above: Order Comment: FAX R ESULTS TO DR FLORENCE: [phone] Performed By: #### V ITB1, ZINC #### [facility] [address] [place] [address] #### B12, FOL, CMP, PREALB, ANDREZ, CBCD #### [facility] [address] [place] [address] NUCLEATED RED BLOOD CELL 0.0 % Normal 0.0-0.0 [facility] Comment on above: Order Comment: FAX R ESULTS TO DR FLORENCE: [phone] Performed By: #### V ITB1, ZINC #### [facility] [address] [place] [address] #### B12, FOL, CMP, PREALB, ANDREZ, CBCD #### [facility] [address] [place] [address] PLATELET COUNT AUTOMATED 277 10*3/uL Normal 130-400 [facility] Comment on above: Order Comment: FAX R ESULTS TO DR FLORENCE: [phone] Performed By: #### V ITB1, ZINC #### [facility] [address] [place] [address] #### B12, FOL, CMP, PREALB, ANDREZ, CBCD #### [facility] [address] [place] [address] Platelet mean volume (Bld) [Entitic vol] 11.2 fL Normal 9.6-12.3 [facility] Comment on above: Order Comment: FAX R ESULTS TO DR FLORENCE: [phone] Performed By: #### V ITB1, ZINC #### [facility] [address] [place] [address] #### B12, FOL, CMP, PREALB, ANDREZ, CBCD #### [facility] [address] [place] [address] RBC (Bld) [#/Vol] 4.69 10*6/uL Normal 4.10-5.10 [facility] Comment on above: Order Comment: FAX R ESULTS TO DR FLORENCE: [phone] Performed By: #### V ITB1, ZINC #### [facility] [address] [place] [address] #### B12, FOL, CMP, PREALB, ANDREZ, CBCD #### [facility] [address] [place] [address] RED CELL DISTRI WIDTH 13.5 % Normal 0-14.5 [facility] Comment on above: Order Comment: FAX R ESULTS TO DR FLORENCE: [phone] Performed By: #### V ITB1, ZINC #### [facility] [address] [place] [address] #### B12, FOL, CMP, PREALB, ANDREZ, CBCD #### [facility] [address] [place] [address] WBC (Bld) [#/Vol] 8.3 10*3/uL Normal 4.8-10.8 [facility] Comment on above: Order Comment: FAMaximo R STIVENULTS TO DR FLORENCE: [phone] Performed By: #### V ITB1, ZINC #### [facility] [address] [place] [address] #### B12, FOL, CMP, PREALB, ANDREZ, CBCD #### [facility] [address] [place] [address] COMPREHENSIVE METABOLIC PANE Evan 12-14-2022 Albumin [Mass/Vol] 3.8 g/dL Normal 3.4-5.0 [facility] Comment on above: Order Comment: FAX R ESULTS TO DR FLORENCE: [phone] Performed By: #### V ITB1, ZINC #### [facility] [address] [place] [address] #### B12, FOL, CMP, PREALB, ANDREZ, CBCD #### [facility] [address] [place] [address] ALP [Catalytic activity/Vol] 74 U/L Normal 46-116 [facility] Comment on above: Order Comment: FAX R ESULTS TO DR FLORENCE: [phone] Performed By: #### V ITB1, ZINC #### [facility] [address] [place] [address] #### B12, FOL, CMP, PREALB, ANDREZ, CBCD #### [facility] [address] [place] [address] ALT [Catalytic activity/Vol] 34 U/L Normal 10-49 [facility] Comment on above: Order Comment: FAX R ESULTS TO DR FLORENCE: [phone] Performed By: #### V ITB1, ZINC #### [facility] [address] [place] [address] #### B12, FOL, CMP, PREALB, ANDREZ, CBCD #### [facility] [address] [place] [address] AST [Catalytic activity/Vol] 19 U/L Normal 0-34 [facility] Comment on above: Order Comment: FAX R ESULTS TO DR FLORENCE: [phone] Performed By: #### V ITB1, ZINC #### [facility] [address] [place] [address] #### B12, FOL, CMP, PREALB, ANDREZ, CBCD #### [facility] [address] [place] [address] Bilirubin [Mass/Vol] 0.3 mg/dL Normal 0.3-1.2 [facility] Comment on above: Order Comment: FAX R ESULTS TO DR FLORENCE: [phone] Performed By: #### V ITB1, ZINC #### [facility] [address] [place] [address] #### B12, FOL, CMP, PREALB, ANDREZ, CBCD #### [facility] [address] [place] [address] CALCIUM,TOTAL 9.0 md/dL Normal 8.7-10.4 [facility] Comment on above: Order Comment: FAX R ESULTS TO DR FLORENCE: [phone] Performed By: #### V ITB1, ZINC #### [facility] [address] [place] [address] #### B12, FOL, CMP, PREALB, ANDREZ, CBCD #### [facility] [address] [place] [address] Chloride [Moles/Vol] 109 mmol/L High 98-107 [facility] Comment on above: Order Comment: FAX R ESULTS TO DR FLORENCE: [phone] Performed By: #### V ITB1, ZINC #### [facility] [address] [place] [address] #### B12, FOL, CMP, PREALB, ANDREZ, CBCD #### [facility] [address] [place] [address] CO2 [Moles/Vol] 27 mmol/L Normal 20-31 [facility] Comment on above: Order Comment: FAX R ESULTS TO DR FLORENCE: [phone] Performed By: #### V ITB1, ZINC #### [facility] [address] [place] [address] #### B12, FOL, CMP, PREALB, ANDREZ, CBCD #### [facility] [address] [place] [address] Creatinine [Mass/Vol] 0.62 mg/dL Normal 0.55-1.[address] [facility] Comment on above: Order Comment: FAX R ESULTS TO DR FLORENCE: [phone] Performed By: #### V ITB1, ZINC #### [facility] [address] [place] [address] #### B12, FOL, CMP, PREALB, ANDREZ, CBCD #### [facility] [address] [place] [address] EST GLOM FILT > 60 Normal [facility] Comment on above: Order Comment: FAX R ESULTS TO DR FLORENCE: [phone] Result Comment: Result Units: mL/min/1.73 m2 Note: [...] By: #### V ITB1, ZINC #### [facility] [address] [place] [address] #### B12, FOL, CMP, PREALB, ANDREZ, CBCD #### [facility] [address] [place] [address] ESTIMATED GLOM FILT RATE > 60 Normal [facility] Comment on above: Order Comment: FAX R ESULTS TO DR FLORENCE: [phone] Performed By: #### V ITB1, ZINC #### [facility] [address] [place] [address] #### B12, FOL, CMP, PREALB, ANDREZ, CBCD #### [facility] [address] [place] [address] Glucose [Mass/Vol] 103 mg/dL High 65-99 [facility] Comment on above: Order Comment: FAX R ESULTS TO DR FLORENCE: [phone] Performed By: #### V ITB1, ZINC #### [facility] [address] [place] [address] #### B12, FOL, CMP, PREALB, ANDREZ, CBCD #### [facility] [address] [place] [address] Potassium [Moles/Vol] 3.6 mmol/L Normal 3.4-5.1 [facility] Comment on above: Order Comment: FAX R ESULTS TO DR FLORENCE: [phone] Performed By: #### V ITB1, ZINC #### [facility] [address] [place] [address] #### B12, FOL, CMP, PREALB, ANDREZ, CBCD #### [facility] [address] [place] [address] Protein [Mass/Vol] 6.5 g/dL Normal 6.0-8.0 [facility] Comment on above: Order Comment: FAX R ESULTS TO DR FLORENCE: [phone] Performed By: #### V ITB1, ZINC #### [facility] [address] [place] [address] #### B12, FOL, CMP, PREALB, ANDREZ, CBCD #### [facility] [address] [place] [address] Sodium [Moles/Vol] 138 mmol/L Normal 136-145 [facility] Comment on above: Order Comment: FAX R ESULTS TO DR FLORENCE: [phone] Performed By: #### V ITB1, ZINC #### [facility] [address] [place] [address] #### B12, FOL, CMP, PREALB, ANDREZ, CBCD #### [facility] [address] [place] [address] Urea nitrogen [Mass/Vol] 8 mg/dL Low 9-23 [facility] Comment on above: Order Comment: FAX R ESULTS TO DR FLORENCE: [phone] Performed By: #### V ITB1, ZINC #### [facility] [address] [place] [address] #### B12, FOL, CMP, PREALB, ANDREZ, CBCD #### [facility] [address] [place] [address] FERRITINon 12-14-2022 Ferritin [Mass/Vol] 40.9 ng/mL Normal 7.3-307.3 [facility] Comment on above: Order Comment: FAX R ESULTS TO DR FLORENCE: [phone] Performed By: #### V ITB1, ZINC #### [facility] [address] [place] [address] #### B12, FOL, CMP, PREALB, ANDREZ, CBCD #### [facility] [address] [place] [address] FOLIC ACIDon 12-14-2022 FOLIC ACID 16.04 ng/mL Normal 5.38-24.00 [facility] Comment on above: Order Comment: FAX R ESULTS TO DR FLORENCE: [phone] Result Comment: 0.35 - 3.7 ng/mL - Folate Deficiency 3.38 - 5.38 ng/mL - Indeterminate > 5.38 ng/mL - Normal Performed By: #### V ITB1, ZINC #### [facility] [address] [place] [address] #### B12, FOL, CMP, PREALB, ANDREZ, CBCD #### [facility] [address] [place] [address] PREALBUMINon 12-14-2022 Prealbumin [Mass/Vol] 16 mg/dL Normal 10-40 [facility] Comment on above: Order Comment: FAX R ESULTS TO DR FLORENCE: [phone] Performed By: #### V ITB1, ZINC #### [facility] [address] [place] [address] #### B12, FOL, CMP, PREALB, ANDREZ, CBCD #### [facility] [address] [place] [address] VITAMIN B12on 12-14-2022 Cobalamin (Vitamin B12) [Mass/Vol] 261 pg/mL Normal 211-911 [facility] Comment on above: Order Comment: FAX R CRISTI TO DR FLORENCE: [phone] Result Comment: 247 - 911 pg/mL - Normal, Vitamin B12 Sufficiency Performed By: #### V ITB1, ZINC #### [facility] [address] [place] [address] #### B12, FOL, CMP, PREALB, ANDREZ, CBCD #### [facility] [address] [place] [address] CBC with DIFFERENTIALon Basophils (Bld) [#/Vol] 0.0 10*3/uL Normal 0.0-0.1 [facility] Comment on above: Performed By: #### V ITB1, ZINC #### [facility] [address] [place] [address] #### B12, FOL, CMP, PREALB, ANDREZ, CBCD #### [facility] [address] [place] [address] Basophils/100 WBC (Bld) 0.6 % Normal 0.0-1.0 [facility] Comment on above: Performed By: #### V ITB1, ZINC #### [facility] [address] [place] [address] #### B12, FOL, CMP, PREALB, ANDREZ, CBCD #### [facility] [address] [place] [address] Eosinophils (Bld) [#/Vol] 0.4 10*3/uL Normal 0.0-0.4 [facility] Comment on above: Performed By: #### V ITB1, ZINC #### [facility] [address] [place] [address] #### B12, FOL, CMP, PREALB, ANDREZ, CBCD #### [facility] [address] [place] [address] Eosinophils/100 WBC (Bld) 6.0 % High 1.0-4.0 [facility] Comment on above: Performed By: #### V ITB1, ZINC #### [facility] [address] [place] [address] #### B12, FOL, CMP, PREALB, ANDREZ, CBCD #### [facility] [address] [place] [address] Hematocrit (Bld) [Volume fraction] 42.2 % Normal 37.0-47.0 [facility] Comment on above: Performed By: #### V ITB1, ZINC #### [facility] [address] [place] [address] #### B12, FOL, CMP, PREALB, ANDREZ, CBCD #### [facility] [address] [place] [address] Hemoglobin (Bld) [Mass/Vol] 14.0 g/dL Normal 12.0-16.0 [facility] Comment on above: Performed By: #### V ITB1, ZINC #### [facility] [address] [place] [address] #### B12, FOL, CMP, PREALB, ANDREZ, CBCD #### [facility] [address] [place] [address] IG # 0.0 10*3/uL Normal 0.0-0.1 [facility] Comment on above: Performed By: #### V ITB1, ZINC #### [facility] [address] [place] [address] #### B12, FOL, CMP, PREALB, ANDREZ, CBCD #### [facility] [address] [place] [address] IG % 0.2 % Normal 0.0-1.0 [facility] Comment on above: Performed By: #### V ITB1, ZINC #### [facility] [address] [place] [address] #### B12, FOL, CMP, PREALB, ANDREZ, CBCD #### [facility] [address] [place] [address] Lymphocytes (Bld) [#/Vol] 3.4 10*3/uL Normal 1.3-4.4 [facility] Comment on above: Performed By: #### V ITB1, ZINC #### [facility] [address] [place] [address] #### B12, FOL, CMP, PREALB, ANDREZ, CBCD #### [facility] [address] [place] [address] Lymphocytes/100 WBC (Bld) 53.6 % High 27.0-41.0 [facility] Comment on above: Performed By: #### V ITB1, ZINC #### [facility] [address] [place] [address] #### B12, FOL, CMP, PREALB, ANDREZ, CBCD #### [facility] [address] [place] [address] MCV (RBC) [Entitic vol] 88.5 fL Normal 81.0-99.0 [facility] Comment on above: Performed By: #### V ITB1, ZINC #### [facility] [address] [place] [address] #### B12, FOL, CMP, PREALB, ANDREZ, CBCD #### [facility] [address] [place] [address] MEAN CORPUSCULAR HGB 29.4 pg Normal 27.0-31.0 [facility] Comment on above: Performed By: #### V ITB1, ZINC #### [facility] [address] [place] [address] #### B12, FOL, CMP, PREALB, ANDREZ, CBCD #### [facility] [address] [place] [address] MEAN CORPUSCULAR HGB CONC 33.2 g/dl Normal 33.0-37.0 [facility] Comment on above: Performed By: #### V ITB1, ZINC #### [facility] [address] [place] [address] #### B12, FOL, CMP, PREALB, ANDREZ, CBCD #### [facility] [address] [place] [address] Monocytes (Bld) [#/Vol] 0.3 10*3/uL Normal 0.1-1.0 [facility] Comment on above: Performed By: #### V ITB1, ZINC #### [facility] [address] [place] [address] #### B12, FOL, CMP, PREALB, ANDREZ, CBCD #### [facility] [address] [place] [address] Monocytes/100 WBC (Bld) 4.8 % Normal 3.0-9.0 [facility] Comment on above: Performed By: #### V ITB1, ZINC #### [facility] [address] [place] [address] #### B12, FOL, CMP, PREALB, ANDREZ, CBCD #### [facility] [address] [place] [address] Neutrophils (Bld) [#/Vol] 2.2 10*3/uL Low 2.3-7.9 [facility] Comment on above: Performed By: #### V ITB1, ZINC #### [facility] [address] [place] [address] #### B12, FOL, CMP, PREALB, ANDREZ, CBCD #### [facility] [address] [place] [address] Neutrophils/100 WBC (Bld) 34.8 % Low 47.0-73.0 [facility] Comment on above: Performed By: #### V ITB1, ZINC #### [facility] [address] [place] [address] #### B12, FOL, CMP, PREALB, ANDREZ, CBCD #### [facility] [address] [place] [address] NUCLEATED RED BLOOD CELL 0.0 10*3/uL Normal 0.0-0.0 [facility] Comment on above: Performed By: #### V ITB1, ZINC #### [facility] [address] [place] [address] #### B12, FOL, CMP, PREALB, ANDREZ, CBCD #### [facility] [address] [place] [address] NUCLEATED RED BLOOD CELL 0.0 % Normal 0.0-0.0 [facility] Comment on above: Performed By: #### V ITB1, ZINC #### [facility] [address] [place] [address] #### B12, FOL, CMP, PREALB, ANDREZ, CBCD #### [facility] [address] [place] [address]21 PLATELET COUNT AUTOMATED 265 10*3/uL Normal 130-400 [facility] Comment on above: Performed By: #### V ITB1, ZINC #### [facility] [address] [place] [address] #### B12, FOL, CMP, PREALB, ANDREZ, CBCD #### [facility] [address] [place] [address] Platelet mean volume (Bld) [Entitic vol] 11.3 fL Normal 9.6-12.3 [facility] Comment on above: Performed By: #### V ITB1, ZINC #### [facility] [address] [place] [address] #### B12, FOL, CMP, PREALB, ANDREZ, CBCD #### [facility] [address] [place] [address]3544 RBC (Bld) [#/Vol] 4.77 10*6/uL Normal 4.10-5.10 [facility] Comment on above: Performed By: #### V ITB1, ZINC #### [facility] [address] [place] [address] #### B12, FOL, CMP, PREALB, ANDREZ, CBCD #### [facility] [address] [place] [address]86[address] RED CELL DISTRI WIDTH 13.9 % Normal 0-14.5 [facility] Comment on above: Performed By: #### V ITB1, ZINC #### [facility] [address] [place] [address] #### B12, FOL, CMP, PREALB, ANDREZ, CBCD #### [facility] [address] [place] [address] WBC (Bld) [#/Vol] 6.3 10*3/uL Normal 4.8-10.8 [facility] Comment on above: Performed By: #### V ITB1, ZINC #### [facility] [address] [place] [address] #### B12, FOL, CMP, PREALB, ANDREZ, CBCD #### [facility] [address] [place] [address] COMPREHENSIVE METABOLIC PANE [facility] 12-03-2022 Albumin [Mass/Vol] 4.0 g/dL Normal 3.4-5.0 [facility] Comment on above: Performed By: #### V ITB1, ZINC #### [facility] [address] [place] [address] #### B12, FOL, CMP, PREALB, ANDREZ, CBCD #### [facility] [address] [place] [address] 62483 ALP [Catalytic activity/Vol] 69 U/L Normal 46-116 [facility] Comment on above: Performed By: #### V ITB1, ZINC #### [facility] [address] [place] [address] #### B12, FOL, CMP, PREALB, ANDREZ, CBCD #### [facility] [address] [place], [place] [address] ALT [Catalytic activity/Vol] 79 U/L High 10-49 [facility] Comment on above: Performed By: #### V ITB1, ZINC #### [facility] [address] [place] [address] #### B12, FOL, CMP, PREALB, ANDREZ, CBCD #### [facility] [address] [place] [address] AST [Catalytic activity/Vol] 31 U/L Normal 0-34 [facility] Comment on above: Performed By: #### V ITB1, ZINC #### [facility] [address] [place] [address] #### B12, FOL, CMP, PREALB, ANDREZ, CBCD #### [facility] [address] [place] [address] Bilirubin [Mass/Vol] 0.4 mg/dL Normal 0.3-1.2 [facility] Comment on above: Performed By: #### V ITB1, ZINC #### [facility] [address] [place] [address] #### B12, FOL, CMP, PREALB, ANDREZ, CBCD #### [facility] [address] [place] [address] 22785 CALCIUM,TOTAL 9.1 md/dL Normal 8.7-10.4 [facility] Comment on above: Performed By: #### V ITB1, ZINC #### [facility] [address] [place] [address] #### B12, FOL, CMP, PREALB, ANDREZ, CBCD #### [facility] [address] [place] [address] 31243 Chloride [Moles/Vol] 109 mmol/L High 98-107 [facility] Comment on above: Performed By: #### V ITB1, ZINC #### [facility] [address] [place] [address] #### B12, FOL, CMP, PREALB, ANDREZ, CBCD #### [facility] [address] [place] [address] CO2 [Moles/Vol] 25 mmol/L Normal 20-31 [facility] Comment on above: Performed By: #### V ITB1, ZINC #### [facility] [address] [place] [address] #### B12, FOL, CMP, PREALB, ANDREZ, CBCD #### [facility] [address] [place] [address] Creatinine [Mass/Vol] 0.56 mg/dL Normal 0.55-1.[address] [facility] Comment on above: Performed By: #### V ITB1, ZINC #### [facility] [address] [place] [address] #### B12, FOL, CMP, PREALB, ANDREZ, CBCD #### [facility] [address] [place] [address] EST GLOM FILT > 60 Normal [facility] Comment on above: Result Comment: Result [...] #### V ITB1, ZINC #### [facility] [address] [place] [address] #### B12, FOL, CMP, PREALB, ANDREZ, CBCD #### [facility] [address] [place] [address]4927 ESTIMATED GLOM FILT RATE > 60 Normal [facility] Comment on above: Performed By: #### V ITB1, ZINC #### [facility] [address] [place] [address] #### B12, FOL, CMP, PREALB, ANDREZ, CBCD #### [facility] [address] [place] [address] Glucose [Mass/Vol] 103 mg/dL High 65-99 [facility] Comment on above: Performed By: #### V ITB1, ZINC #### [facility] [address] [place] [address] #### B12, FOL, CMP, PREALB, ANDREZ, CBCD #### [facility] [address] [place] [address]70 Potassium [Moles/Vol] 3.8 mmol/L Normal 3.4-5.1 [facility] Comment on above: Performed By: #### V ITB1, ZINC #### [facility] [address] [place] [address] #### B12, FOL, CMP, PREALB, ANDREZ, CBCD #### [facility] [address] [place] [address]7050 Protein [Mass/Vol] 6.7 g/dL Normal 6.0-8.0 [facility] Comment on above: Performed By: #### V ITB1, ZINC #### [facility] [address] [place] [address] #### B12, FOL, CMP, PREALB, ANDREZ, CBCD #### [facility] [address] [place] [address]10 Sodium [Moles/Vol] 141 mmol/L Normal 136-145 [facility] Comment on above: Performed By: #### V ITB1, ZINC #### [facility] [address] [place] [address] #### B12, FOL, CMP, PREALB, ANDREZ, CBCD #### [facility] [address] [place] [address] 35426 Urea nitrogen [Mass/Vol] 10 mg/dL Normal 9-23 [facility] Comment on above: Performed By: #### V ITB1, ZINC #### [facility] [address] [place] [address] #### B12, FOL, CMP, PREALB, ANDREZ, CBCD #### [facility] [address] [place] [address] [id number] 12-03-2022 ESTIMATED AVERAGE GLUCOSE 94 Normal [facility] Comment on above: Performed By: #### V ITB1, ZINC #### [facility] [address] [place] [address] #### B12, FOL, CMP, PREALB, ANDREZ, CBCD #### [facility] [address] [place] [address] HbA1c (Bld) [Mass fraction] 4.9 % Normal 4.8-5.6 [facility] Comment on above: Result Comment: Standarization of method based on National Glycohemoglobin Standardization Program (NGSP). HEMOGLOBIN A1c(%) DEGREE of GLUCOSE CONTROL 5.7-6.4% Prediabetes range >6.4% Diagnosis of Diabetes <7% Glycemic control for adults with Diabetes Performed By: #### Winnie ITB1, ZINC #### [facility] [address] [place] [address] #### B12, FOL, CMP, PREALB, ANDREZ, CBCD #### [facility] [address] [place], [place] [address] INSULINon 12-03-2022 INSULIN 14.2 mU/L Normal 2.6-37.6 [facility] Comment on above: Performed By: #### V ITB1, ZINC #### [facility] [address] [place] [address] #### B12, FOL, CMP, PREALB, ANDREZ, CBCD #### [facility] [address] [place], [place] [address] LIPID PANEL CHOLESTEROL/HDLo n 12-03-2022 Cholesterol [Mass/Vol] 113 mg/dL Normal <200 [facility] Comment on above: Performed By: #### V ITB1, ZINC #### [facility] [address] [place] [address] #### B12, FOL, CMP, PREALB, ANDREZ, CBCD #### [facility] [address] [place] [address] Cholesterol in HDL [Mass/Vol] 26 mg/dL Low 40-60 [facility] Comment on above: Performed By: #### V ITB1, ZINC #### [facility] [address] [place] [address] #### B12, FOL, CMP, PREALB, ANDREZ, CBCD #### [facility] [address] [place] [address] Cholesterol in LDL [Mass/Vol] 52 mg/dL Normal 9-159 [facility] Comment on above: Performed By: #### V ITB1, ZINC #### [facility] [address] [place] [address] #### B12, FOL, CMP, PREALB, ANDREZ, CBCD #### [facility] [address] [place] [address] Cholesterol.total/Chol esterol in HDL [Mass ratio] 4.3 {ratio} Normal [facility] Comment on above: Performed By: #### V ITB1, ZINC #### [facility] [address] [place] [address] #### B12, FOL, CMP, PREALB, ANDREZ, CBCD #### [facility] [address] [place] [address] Triglyceride [Mass/Vol] 176 mg/dL High <150 [facility] Comment on above: Result Comment: TRIGLYCERIDE RISK ASSESSMENT: 150-199 mg/dl BORDERLINE HIGH >200 mg//dl HIGH . Performed By: #### V ITB1, ZINC #### [facility] [address] [place] [address] #### B12, FOL, CMP, PREALB, ANDREZ, CBCD #### [facility] [address] [place] [address] VLDL CHOLESTEROL 35 mg/dL Normal 6-40 [facility] Comment on above: Performed By: #### V ITB1, ZINC #### [facility] [address] [place] [address] #### B12, FOL, CMP, PREALB, ANDREZ, CBCD #### [facility] [address] [place] [address] CBC with DIFFERENTIALon 05-0 Basophils (Bld) [#/Vol] 0.0 10*3/uL Normal 0.0-0.1 [facility] Comment on above: Order Comment: FAX R ESULTS TO DR FLORENCE: [phone] Performed By: #### V ITB1, ZINC #### [facility] [address] [place] [address] #### B12, FOL, CMP, PREALB, ANDREZ, CBCD #### [facility] [address] [place] [address] Basophils/100 WBC (Bld) 0.3 % Normal 0.0-1.0 [facility] Comment on above: Order Comment: FAX R ESULTS TO DR FLORENCE: [phone] Performed By: #### V ITB1, ZINC #### [facility] [address] [place] [address] #### B12, FOL, CMP, PREALB, ANDREZ, CBCD #### [facility] [address] [place] [address] Eosinophils (Bld) [#/Vol] 0.2 10*3/uL Normal 0.0-0.4 [facility] Comment on above: Order Comment: FAX R ESULTS TO DR FLORENCE: [phone] Performed By: #### V ITB1, ZINC #### [facility] [address] [place] [address] #### B12, FOL, CMP, PREALB, ANDREZ, CBCD #### [facility] [address] [place] [address] Eosinophils/100 WBC (Bld) 3.2 % Normal 1.0-4.0 [facility] Comment on above: Order Comment: FAX R ESULTS TO DR FLORENCE: [phone] Performed By: #### V ITB1, ZINC #### [facility] [address] [place] [address] #### B12, FOL, CMP, PREALB, ANDREZ, CBCD #### [facility] [address] [place] [address] Hematocrit (Bld) [Volume fraction] 43.8 % Normal 37.0-47.0 [facility] Comment on above: Order Comment: FAX R ESULTS TO DR FLORENCE: [phone] Performed By: #### V ITB1, ZINC #### [facility] [address] [place] [address] #### B12, FOL, CMP, PREALB, ANDREZ, CBCD #### [facility] [address] [place] [address] Hemoglobin (Bld) [Mass/Vol] 14.3 g/dL Normal 12.0-16.0 [facility] Comment on above: Order Comment: FAX R ESULTS TO DR FLORENCE: [phone] Performed By: #### V ITB1, ZINC #### [facility] [address] [place] [address] #### B12, FOL, CMP, PREALB, ANDREZ, CBCD #### [facility] [address] [place] [address] IG # 0.1 10*3/uL Normal 0.0-0.1 [facility] Comment on above: Order Comment: FAX R ESULTS TO DR FLORENCE: [phone] Performed By: #### V ITB1, ZINC #### [facility] [address] [place] [address] #### B12, FOL, CMP, PREALB, ANDREZ, CBCD #### [facility] [address] [place] [address] IG % 0.7 % Normal 0.0-1.0 [facility] Comment on above: Order Comment: JENNIFER COLIN TO DR FLORENCE: [phone] Performed By: #### V ITB1, ZINC #### [facility] [address] [place] [address] #### B12, FOL, CMP, PREALB, ANDREZ, CBCD #### [facility] [address] [place] [address] Lymphocytes (Bld) [#/Vol] 3.5 10*3/uL Normal 1.3-4.4 [facility] Comment on above: Order Comment: JENNIFER COLIN TO DR FLORENCE: [phone] Performed By: #### V ITB1, ZINC #### [facility] [address] [place] [address] #### B12, FOL, CMP, PREALB, ANDREZ, CBCD #### [facility] [address] [place] [address] Lymphocytes/100 WBC (Bld) 46.7 % High 27.0-41.0 [facility] Comment on above: Order Comment: JENNIFER COLIN TO DR FLORENCE: [phone] Performed By: #### V ITB1, ZINC #### [facility] [address] [place] [address] #### B12, FOL, CMP, PREALB, ANDREZ, CBCD #### [facility] [address] [place] [address] MCV (RBC) [Entitic vol] 88.1 fL Normal 81.0-99.0 [facility] Comment on above: Order Comment: JENNIFER COLIN TO DR FLORENCE: [phone] Performed By: #### V ITB1, ZINC #### [facility] [address] [place] [address] #### B12, FOL, CMP, PREALB, ANDREZ, CBCD #### [facility] [address] [place] [address] MEAN CORPUSCULAR HGB 28.8 pg Normal 27.0-31.0 [facility] Comment on above: Order Comment: FAX R STIVENULTS TO DR FLORENCE: [phone] Performed By: #### V ITB1, ZINC #### [facility] [address] [place] [address] #### B12, FOL, CMP, PREALB, ANDREZ, CBCD #### [facility] [address] [place] [address] MEAN CORPUSCULAR HGB CONC 32.6 g/dl Low 33.0-37.0 [facility] Comment on above: Order Comment: FAX R STIVENULTS TO DR FLORENCE: [phone] Performed By: #### V ITB1, ZINC #### [facility] [address] [place] [address] #### B12, FOL, CMP, PREALB, ANDREZ, CBCD #### [facility] [address] [place] [address] Monocytes (Bld) [#/Vol] 0.3 10*3/uL Normal 0.1-1.0 [facility] Comment on above: Order Comment: FAX R STIVENULTS TO DR FLORENCE: [phone] Performed By: #### V ITB1, ZINC #### [facility] [address] [place] [address] #### B12, FOL, CMP, PREALB, ANDREZ, CBCD #### [facility] [address] [place] [address] Monocytes/100 WBC (Bld) 4.3 % Normal 3.0-9.0 [facility] Comment on above: Order Comment: FAMaximo R CRISTI TO DR FLORENCE: [phone] Performed By: #### V ITB1, ZINC #### [facility] [address] [place] [address] #### B12, FOL, CMP, PREALB, ANDREZ, CBCD #### [facility] [address] [place] [address] Neutrophils (Bld) [#/Vol] 3.4 10*3/uL Normal 2.3-7.9 [facility] Comment on above: Order Comment: FAX R ESULTS TO DR FLORENCE: [phone] Performed By: #### V ITB1, ZINC #### [facility] [address] [place] [address] #### B12, FOL, CMP, PREALB, ANDREZ, CBCD #### [facility] [address] [place] [address] Neutrophils/100 WBC (Bld) 44.8 % Low 47.0-73.0 [facility] Comment on above: Order Comment: FAX R ESULTS TO DR FLORENCE: [phone] Performed By: #### V ITB1, ZINC #### [facility] [address] [place] [address] #### B12, FOL, CMP, PREALB, ANDREZ, CBCD #### [facility] [address] [place] [address]7049 NUCLEATED RED BLOOD CELL 0.0 10*3/uL Normal 0.0-0.0 [facility] Comment on above: Order Comment: FAX R ESULTS TO DR FLORENCE: [phone] Performed By: #### V ITB1, ZINC #### [facility] [address] [place] [address] #### B12, FOL, CMP, PREALB, ANDREZ, CBCD #### [facility] [address] [place] [address]187 NUCLEATED RED BLOOD CELL 0.0 % Normal 0.0-0.0 [facility] Comment on above: Order Comment: FAX R ESULTS TO DR FLORENCE: [phone] Performed By: #### V ITB1, ZINC #### [facility] [address] [place] [address] #### B12, FOL, CMP, PREALB, ANDREZ, CBCD #### [facility] [address] [place] [address] PLATELET COUNT AUTOMATED 347 10*3/uL Normal 130-400 [facility] Comment on above: Order Comment: FAX R ESULTS TO DR FLORENCE: [phone] Performed By: #### V ITB1, ZINC #### [facility] [address] [place] [address] #### B12, FOL, CMP, PREALB, ANDREZ, CBCD #### [facility] [address] [place] [address] Platelet mean volume (Bld) [Entitic vol] 9.9 fL Normal 9.6-12.3 [facility] Comment on above: Order Comment: FAX R ESULTS TO DR FLORENCE: [phone] Performed By: #### V ITB1, ZINC #### [facility] [address] [place] [address] #### B12, FOL, CMP, PREALB, ANDREZ, CBCD #### [facility] [address] [place] [address]299 RBC (Bld) [#/Vol] 4.97 10*6/uL Normal 4.10-5.10 [facility] Comment on above: Order Comment: FAX R ESULTS TO DR FLORENCE: [phone] Performed By: #### V ITB1, ZINC #### [facility] [address] [place] [address] #### B12, FOL, CMP, PREALB, ANDREZ, CBCD #### [facility] [address] [place] [address] 48920 RED CELL DISTRI WIDTH 13.2 % Normal 0-14.5 [facility] Comment on above: Order Comment: FAX R ESULTS TO DR FLORENCE: [phone] Performed By: #### V ITB1, ZINC #### [facility] [address] [place] [address] #### B12, FOL, CMP, PREALB, ANDREZ, CBCD #### [facility] [address] [place] [address]274 WBC (Bld) [#/Vol] 7.5 10*3/uL Normal 4.8-10.8 [facility] Comment on above: Order Comment: FAX R ESULTS TO DR FLORENCE: [phone] Performed By: #### V ITB1, ZINC #### [facility] [address] [place] [address] #### B12, FOL, CMP, PREALB, ANDREZ, CBCD #### [facility] [address] [place] [address] COMPREHENSIVE METABOLIC PANE [facility] 11-06-2022 Albumin [Mass/Vol] 4.2 g/dL Normal 3.4-5.0 [facility] Comment on above: Order Comment: FAX R ESULTS TO DR FLORENCE: [phone] Performed By: #### V ITB1, ZINC #### [facility] [address] [place] [address] #### B12, FOL, CMP, PREALB, ANDREZ, CBCD #### [facility] [address] [place] [address]69 ALP [Catalytic activity/Vol] 59 U/L Normal 46-116 [facility] Comment on above: Order Comment: JENNIFER R STIVENULTS TO DR FLORENCE: [phone] Performed By: #### V ITB1, ZINC #### [facility] [address] [place] [address] #### B12, FOL, CMP, PREALB, ANDREZ, CBCD #### [facility] [address] [place] [address]676 ALT [Catalytic activity/Vol] 30 U/L Normal 10-49 [facility] Comment on above: Order Comment: FAX R ESULTS TO DR FLORENCE: [phone] Performed By: #### V ITB1, ZINC #### [facility] [address] [place] [address] #### B12, FOL, CMP, PREALB, ANDREZ, CBCD #### [facility] [address] [place] [address] AST [Catalytic activity/Vol] 20 U/L Normal 0-34 [facility] Comment on above: Order Comment: FAX R ESULTS TO DR FLORENCE: [phone] Performed By: #### V ITB1, ZINC #### [facility] [address] [place] [address] #### B12, FOL, CMP, PREALB, ANDREZ, CBCD #### [facility] [address] [place] [address] Bilirubin [Mass/Vol] 0.5 mg/dL Normal 0.3-1.2 [facility] Comment on above: Order Comment: FAX R ESULTS TO DR FLORENCE: [phone] Performed By: #### V ITB1, ZINC #### [facility] [address] [place] [address] #### B12, FOL, CMP, PREALB, ANDREZ, CBCD #### [facility] [address] [place] [address] CALCIUM,TOTAL 9.3 md/dL Normal 8.7-10.4 [facility] Comment on above: Order Comment: FAX R ESULTS TO DR FLORENCE: [phone] Performed By: #### V ITB1, ZINC #### [facility] [address] [place] [address] #### B12, FOL, CMP, PREALB, ANDREZ, CBCD #### [facility] [address] [place] [address] Chloride [Moles/Vol] 103 mmol/L Normal 98-107 [facility] Comment on above: Order Comment: FAX R ESULTS TO DR FLORENCE: [phone] Performed By: #### V ITB1, ZINC #### [facility] [address] [place] [address] #### B12, FOL, CMP, PREALB, ANDREZ, CBCD #### [facility] [address] [place] [address] CO2 [Moles/Vol] 23 mmol/L Normal 20-31 [facility] Comment on above: Order Comment: FAX R ESULTS TO DR FLORENCE: [phone] Performed By: #### V ITB1, ZINC #### [facility] [address] [place] [address] #### B12, FOL, CMP, PREALB, ANDREZ, CBCD #### [facility] [address] [place] [address] Creatinine [Mass/Vol] 0.58 mg/dL Normal 0.55-1.[address] [facility] Comment on above: Order Comment: FAX R ESULTS TO DR FLORENCE: [phone] Performed By: #### V ITB1, ZINC #### [facility] [address] [place] [address] #### B12, FOL, CMP, PREALB, ANDREZ, CBCD #### [facility] [address] [place] [address] EST GLOM FILT > 60 Normal [facility] Comment on above: Order Comment: FAX R ESULTS TO DR FLORENCE: [phone] Result Comment: Result Units: mL/min/1.73 m2 Note: [...] By: #### V ITB1, ZINC #### [facility] [address] [place] [address] #### B12, FOL, CMP, PREALB, ANDREZ, CBCD #### [facility] [address] [place] [address] ESTIMATED GLOM FILT RATE > 60 Normal [facility] Comment on above: Order Comment: FAX R ESULTS TO DR FLORENCE: [phone] Performed By: #### V ITB1, ZINC #### [facility] [address] [place] [address] #### B12, FOL, CMP, PREALB, ANDREZ, CBCD #### [facility] [address] [place] [address] Glucose [Mass/Vol] 92 mg/dL Normal 65-99 [facility] Comment on above: Order Comment: FAX R ESULTS TO DR FLORENCE: Performed By: #### V ITB1, ZINC #### [facility] [address] [place] [address] #### B12, FOL, CMP, PREALB, ANDREZ, CBCD #### [facility] [address] [place] [address] Potassium [Moles/Vol] 3.9 mmol/L Normal 3.4-5.1 [facility] Comment on above: Order Comment: FAX R ESULTS TO DR FLORENCE: Performed By: #### V ITB1, ZINC #### [facility] [address] [place] [address] #### B12, FOL, CMP, PREALB, ANDREZ, CBCD #### [facility] [address] [place] [address] Protein [Mass/Vol] 7.3 g/dL Normal 6.0-8.0 [facility] Comment on above: Order Comment: FAX R ESULTS TO DR FLORENCE: Performed By: #### V ITB1, ZINC #### [facility] [address] [place] [address] #### B12, FOL, CMP, PREALB, ANDREZ, CBCD #### [facility] [address] [place] [address] Sodium [Moles/Vol] 137 mmol/L Normal 136-145 [facility] Comment on above: Order Comment: FAX R ESULTS TO DR FLORENCE: Performed By: #### V ITB1, ZINC #### [facility] [address] [place] [address] #### B12, FOL, CMP, PREALB, ANDREZ, CBCD #### [facility] [address] [place] [address] Urea nitrogen [Mass/Vol] 12 mg/dL Normal 9-23 [facility] Comment on above: Order Comment: FAX R ESULTS TO DR FLORENCE: [phone] Performed By: #### V ITB1, ZINC #### [facility] [address] [place] [address] #### B12, FOL, CMP, PREALB, ANDREZ, CBCD #### [facility] [address] [place] [address] Basic Metabolic Panelon 05-0 Anion gap [Moles/Vol] 11 mmol/L Normal 7-16 [facility] Calcium [Mass/Vol] 8.9 mg/dL Normal 8.6-10.2 [facility] Chloride [Moles/Vol] 104 mmol/L Normal 98-107 [facility] CO2 [Moles/Vol] 25 mmol/L Normal 22-29 [facility] Creatinine [Mass/Vol] 0.6 mg/dL Normal 0.5-1.0 [facility] GFR Calculated >60 Normal >=60 [facility] Comment on above: Result Comment: Dion [...] secretion. Glucose [Mass/Vol] 117 mg/dL High 74-99 [facility] Potassium [Moles/Vol] 4.3 mmol/L Normal 3.5-5.0 [facility] Sodium [Moles/Vol] 140 mmol/L Normal 132-146 [facility] Urea nitrogen [Mass/Vol] 13 mg/dL Normal 6-20 [facility] Basic metabolic 2000 panelon 10-30-2022 Anion gap [Moles/Vol] 11 mmol/L 7 - 16 mmol/L [facility] Calcium [Mass/Vol] 8.9 mg/dL 8.6 - 10. 2 mg/dL [facility] Chloride [Moles/Vol] 104 mmol/L 98 - 10 7 mmol/L [facility] CO2 [Moles/Vol] 25 mmol/L 22 - 29 mmol/L [facility] Creatinine [Mass/Vol] 0.6 mg/dL 0.5 - 1.0 mg/dL [facility] GFR/1.73 sq M.predicted among non-blacks MDRD (S/P/Bld) [Vol rate/Area] mL/min/1.73 60 - PINF mL/min/1.[address] [facility] Comment on above: Pediatric calculator [...] 74 - 99 mg/dL [facility] Potassium [Moles/Vol] 4.3 mmol/L 3.5 - 5.0 mmol/L [facility] Sodium [Moles/Vol] 140 mmol/L 132 - 146 mmol/L [facility] Urea nitrogen [Mass/Vol] 13 mg/dL 6 - 20 mg/dL [facility] CBC With Platelet and Differ entialon 10-30-2022 Abs Imm Granulocytes 0.07 E9/L Normal [facility] Absolute Basophils 0.01 E9/L Normal 0.00-0.20 [facility] Absolute Eosinophils 0.00 E9/L Low 0.05-0.50 [facility] Absolute Lymphocytes 1.89 E9/L Normal 1.50-4.00 [facility] Absolute Monocytes 0.73 E9/L Normal 0.10-0.95 [facility] Absolute Neutrophils 9.02 E9/L High 1.80-7.30 [facility] Basophils/100 WBC (Bld) 0.1 % Normal 0.0-2.0 [facility] Eosinophils/100 WBC (Bld) 0.0 % Normal 0.0-6.0 [facility] Hematocrit (Bld) [Volume fraction] 38.2 % Normal 34.0-48.0 [facility] Hemoglobin (Bld) [Mass/Vol] 12.2 g/dL Normal 11.5-15.5 [facility] Imm Granulocytes 0.6 % Normal 0.0-5.0 [facility] Lymphocytes/100 WBC (Bld) 16.1 % Low 20.0-42.0 [facility] MCH (RBC) [Entitic mass] 29.2 pg Normal 26.0-35.0 [facility] MCHC 31.9 % Low 32.0-34.5 [facility] MCV (RBC) [Entitic vol] 91.4 fL Normal 80.0-99.9 [facility] Monocytes/100 WBC (Bld) 6.2 % Normal 2.0-12.0 [facility] Neutrophils/100 WBC (Bld) 77.0 % Normal 43.0-80.0 [facility] Platelet Count 285 E9/L Normal 130-450 [facility] Platelet mean volume (Bld) [Entitic vol] 10.4 fL Normal 7.0-12.0 [facility] RBC 4.18 E12/L Normal 3.50-5.50 [facility] RDW 13.2 fL Normal 11.5-15.0 [facility] WBC 11.7 E9/L High 4.5-11.5 [facility] CBC with Auto Differentialon 10-30-2022 Basophils (Bld) [#/Vol] 0.01 10*3/uL [facility] Basophils/100 WBC (Bld) 0.1 % 0.0 - 2.0 % [facility] Eosinophils (Bld) [#/Vol] 0.00 10*3/uL Low [facility] Eosinophils/100 WBC (Bld) 0 % 0.0 - 6.0 % [facility] Erythrocyte distribution width (RBC) [Ratio] 13.2 fL 11.5 - 15.[address] [facility] Hematocrit (Bld) [Volume fraction] 38.2 % 34.0 - 48.0 % [facility] Hemoglobin (Bld) [Mass/Vol] 12.2 g/dL 11.5 - 15.5 g/dL [facility] Immature granulocytes (Bld) [#/Vol] 0.07 10*3/uL E9/L [facility] Immature granulocytes/100 WBC (Bld) 0.6 % 0.0 - 5.0 % [facility] Interpretation and review of laboratory results Abnormal [facility] Lymphocytes (Bld) [#/Vol] 1.89 10*3/uL [facility] Lymphocytes/100 WBC (Bld) 16.1 % Low 20.0 - 42.0 % [facility] MCH (RBC) [Entitic mass] 29.2 pg 26.0 - 35.[address] [facility] MCHC (RBC) [Mass/Vol] 31.9 % Low 32.0 - 34.5 % [facility] MCV (RBC) [Entitic vol] 91.4 fL 80.0 - 99.[address] [facility] Monocytes (Bld) [#/Vol] 0.73 10*3/uL [facility] Monocytes/100 WBC (Bld) 6.2 % 2.0 - 12.0 % [facility] Neutrophils (Bld) [#/Vol] 9.02 10*3/uL High [facility] Platelet mean volume (Bld) [Entitic vol] 10.4 fL 7.0 - 12.[address] [facility] Platelets (Bld) [#/Vol] 285 10*3/uL [facility] RBC (Bld) [#/Vol] 4.18 10*6/uL [facility] Segmented neutrophils/100 WBC (Bld) 77.0 % 43.0 - 80.0 % [facility] WBC (Bld) [#/Vol] 11.7 10*3/uL High [facility] Hepatic Function Panelon Albumin [Mass/Vol] 3.7 g/dL 3.5 - 5.2 g/dL [facility] ALP [Catalytic activity/Vol] 55 U/L 35 - 104 U/L [facility] ALT [Catalytic activity/Vol] 19 U/L 0 - 32 U/L [facility] AST [Catalytic activity/Vol] 14 U/L 0 - 31 U/L [facility] Bilirubin [Mass/Vol] 0.5 mg/dL 0.0 - 1 .2 mg/dL [facility] Bilirubin.direct [Mass/Vol] mg/dL 0.0 - 0.3 mg/dL [facility] Bilirubin.indirect [Mass/Vol] see below 0.0 - 1.0 mg/dL [facility] Comment on above: Indirect Bilirubin c annot be calculated since Total Bilirubin and/or Direct Bilirubin is below measurable range. Protein [Mass/Vol] 6.3 g/dL Low 6.4 - 8.3 g/dL [facility] Hgb A1Con 10-30-2022 HbA1c (Bld) [Mass fraction] 4.8 % Normal 4.0-5.6 [facility] Lipid Panelon 10-30-2022 Cholesterol [Mass/Vol] 99 mg/dL Normal 0-199 [facility] Cholesterol in HDL [Mass/Vol] 34 mg/dL Normal >40 [facility] Cholesterol in LDL [Mass/Vol] 43 mg/dL Normal 0-99 [facility] Triglyceride [Mass/Vol] 108 mg/dL Normal 0-149 [facility] VLDL Cholesterol (Calculated) 22 mg/dL Normal [facility] Cholesterol [Mass/Vol] 99 mg/dL 0 - 1 99 mg/dL [facility] Cholesterol in HDL [Mass/Vol] 34 mg/dL 40 - PINF mg/dL [facility] Cholesterol in LDL [Mass/Vol] 43 mg/dL 0 - 99 mg/dL [facility] Cholesterol in VLDL [Mass/Vol] 22 mg/dL [facility] Triglyceride [Mass/Vol] 108 mg/dL 0 - 149 mg/dL [facility] Liver Panelon 10-30-2022 Albumin [Mass/Vol] 3.7 g/dL Normal 3.5-5.2 [facility] ALP [Catalytic activity/Vol] 55 U/L Normal 35-104 [facility] ALT [Catalytic activity/Vol] 19 U/L Normal 0-32 [facility] AST [Catalytic activity/Vol] 14 U/L Normal 0-31 [facility] Bilirubin [Mass/Vol] 0.5 mg/dL Normal 0.0-1.2 [facility] Bilirubin Indirect see below Normal 0.0-1.0 [facility] Comment on above: Result Comment: Grace rect Bilirubin cannot be calculated since Total Bilirubin and/or Direct Bilirubin is below measurable range. Bilirubin.indirect [Mass/Vol] mg/dL Normal 0.0-0.3 [facility] Protein [Mass/Vol] 6.3 g/dL Low 6.4-8.3 [facility] METER GLUCOSEon 10-30-2022 Glucose [Mass/Vol] 111 mg/dL High 74-99 [facility] Magnesiumon 10-30-2022 Magnesium [Mass/Vol] 1.7 mg/dL Normal 1.6-2.6 [facility] Magnesium [Mass/Vol] 1.7 mg/dL 1.6 - 2 .6 mg/dL [facility] No Panel Informationon 10-30 Interpretation and review of laboratory results Abnormal [facility] POCT Glucoseon 10-30-2022 Glucose [Mass/Vol] 111 mg/dL High 74 - 99 mg/dL [facility] Interpretation and review of laboratory results Abnormal [facility] Phosphoruson 10-30-2022 Phosphate [Mass/Vol] 4.0 mg/dL Normal 2.5-4.5 [facility] Phosphate [Mass/Vol] 4.0 mg/dL 2.5 - 4 .5 mg/dL [facility] T4, Freeon 10-30-2022 Free T4 [Mass/Vol] 1.32 ng/dL 0.93 - 1. 70 ng/dL [facility] TSHon 10-30-2022 TSH [Mass/Vol] 0.828 [facility] [employer] TSH w/out Reflexon TSH w/out Reflex 0.828 uIU/mL Normal 0.270-4.200 [facility] Thyroxine Freeon 10-30-2022 Thyroxine Free 1.32 ng/dL Normal 0.93-1.70 [facility] Comprehensive Metabolic Pane evan 10-29-2022 Potassium see note Critically abnormal 3.5-5.0 [facility] Comment on above: Result Comment: Dupl icate order. Made no charge to patient for testing Corrected result; previously reported as 4.3 on 10/24/2022 at 19:57 by JESUS Hemoglobin A1con 10-29-2022 HbA1c (Bld) [Mass fraction] 5.1 % 4.0 - 5.6 % [facility] [employer] [facility] [employer] Hgb A1Con 10-29-2022 HbA1c (Bld) [Mass fraction] 5.1 % Normal 4.0-5.6 [facility] METER GLUCOSEon 10-29-2022 Glucose [Mass/Vol] 128 mg/dL High 74-99 [facility] Glucose [Mass/Vol] 146 mg/dL High 74-99 [facility] Glucose [Mass/Vol] 104 mg/dL High 74-99 [facility] Glucose [Mass/Vol] 101 mg/dL High 74-99 [facility] No Panel Informationon 10-29 [facility] Urine Qualon 0 10-29-2022 Beta HCG ( test) Ql (U) Negative Negative [facility] Work Phone: Beta HCG ( test) Ql (U) [id number] [facility] [place] Work Phone: Negative QC Pass/Fail Pass [facility] [place] Work Phone: Positive QC Pass/Fail Pass [facility] [employer] Phone: POCT Glucoseon 10-29-2022 Glucose [Mass/Vol] 128 mg/dL High 74 - 99 mg/dL [facility] Interpretation and review of laboratory results Abnormal [facility] Glucose [Mass/Vol] 146 mg/dL High 74 - 99 mg/dL [facility] Interpretation and review of laboratory results Abnormal [facility] Glucose [Mass/Vol] 104 mg/dL High 74 - 99 mg/dL [facility] Interpretation and review of laboratory results Abnormal [facility] Glucose [Mass/Vol] 101 mg/dL High 74 - 99 mg/dL [facility] Interpretation and review of laboratory results Abnormal [facility] Surgical Specimenon 10-30-19 23 Surgical Specimen [place] [address] FINAL SURGICAL PATHOLOGY REPORT NAME: BATOOL KINGSLEY Date of 10/29/2022 Collection: Medical Record [id number] Date of 10/29/2022 Number: Receipt: Age: 22 Y Sex: F Date 10/31/2022 12:02 Reported: Date Of : 2000 [facility] [id number] Admitting DERIC FLORENCE Number: Physician: Patient DIS [id number] Ordering DERIC FLORENCE Location: Physician: Accession Number: [...] of hanson haq mucosal lined fibrous tissue, retail field representative or portions of small bowel which measures 4.1 x 2.5 x 1.7 cm. Much of the exterior is covered by hanson haq, soft to finely folded mucosa. Numerous, small metallic surgical [place] are present throughout the exterior. Discrete mucosal lesions are not present. Sectioning is unremarkable. [employer] sections are submitted. Block label A1. (CEM) CODES: [id number]; Department of Pathology Page 1 of 1 Normal [facility] CBC (Hemogram)on 10-24-2022 Erythrocyte distribution width (RBC) [Ratio] 13.7 fL 11.5 - 15.[address] [facility] Hematocrit (Bld) [Volume fraction] 43.9 % 34.0 - 48.0 % [facility] Hemoglobin (Bld) [Mass/Vol] 14.3 g/dL 11.5 - 15.5 g/dL [facility] MCH (RBC) [Entitic mass] 28.9 pg 26.0 - 35.[address] [facility] MCHC (RBC) [Mass/Vol] 32.6 % 32.0 - 34.5 % [facility] MCV (RBC) [Entitic vol] 88.9 fL 80.0 - 99.[address] [facility] Platelet mean volume (Bld) [Entitic vol] 10.6 fL 7.0 - 12.[address] [facility] Platelets (Bld) [#/Vol] 321 10*3/uL [facility] RBC (Bld) [#/Vol] 4.94 10*6/uL [facility] WBC (Bld) [#/Vol] 7.0 10*3/uL [facility] CBC With Platelet No Differe ntialon 10-24-2022 Hematocrit (Bld) [Volume fraction] 43.9 % Normal 34.0-48.0 [facility] Hemoglobin (Bld) [Mass/Vol] 14.3 g/dL Normal 11.5-15.5 [facility] MCH (RBC) [Entitic mass] 28.9 pg Normal 26.0-35.0 [facility] MCHC 32.6 % Normal 32.0-34.5 [facility] MCV (RBC) [Entitic vol] 88.9 fL Normal 80.0-99.9 [facility] Platelet Count 321 E9/L Normal 130-450 [facility] Platelet mean volume (Bld) [Entitic vol] 10.6 fL Normal 7.0-12.0 [facility] RBC 4.94 E12/L Normal 3.50-5.50 [facility] RDW 13.7 fL Normal 11.5-15.0 [facility] WBC 7.0 E9/L Normal 4.5-11.5 [facility] Comprehensive Metabolic Pane l reflex Mgon 10-24-2022 Albumin [Mass/Vol] 4.6 g/dL Normal 3.5-5.2 [facility] ALP [Catalytic activity/Vol] 69 U/L Normal 35-104 [facility] ALT [Catalytic activity/Vol] 27 U/L Normal 0-32 [facility] Anion gap [Moles/Vol] 12 mmol/L Normal 7-16 [facility] AST [Catalytic activity/Vol] 16 U/L Normal 0-31 [facility] Bilirubin [Mass/Vol] 0.4 mg/dL Normal 0.0-1.2 [facility] Calcium [Mass/Vol] 9.3 mg/dL Normal 8.6-10.2 [facility] Chloride [Moles/Vol] 104 mmol/L Normal 98-107 [facility] CO2 [Moles/Vol] 24 mmol/L Normal 22-29 [facility] Creatinine [Mass/Vol] 0.6 mg/dL Normal 0.5-1.0 [facility] GFR Calculated >60 Normal >=60 [facility] Comment on above: Result Comment: Dion [...] secretion. Glucose [Mass/Vol] 79 mg/dL Normal 74-99 [facility] Magnesium [Moles/Vol] 4.3 mmol/L Normal 3.5-5.0 [facility] Protein [Mass/Vol] 7.6 g/dL Normal 6.4-8.3 [facility] Sodium [Moles/Vol] 140 mmol/L Normal 132-146 [facility] Urea nitrogen [Mass/Vol] 13 mg/dL Normal 6-20 [facility] Comprehensive metabolic 2000 panelon 10-24-2022 Potassium [Moles/Vol] 4.3 mmol/L 3.5 - 5.0 mmol/L [facility] Albumin [Mass/Vol] 4.6 g/dL 3.5 - 5.2 g/dL [facility] ALP [Catalytic activity/Vol] 69 U/L 35 - 104 U/L [facility] ALT [Catalytic activity/Vol] 27 U/L 0 - 32 U/L [facility] Anion gap [Moles/Vol] 12 mmol/L 7 - 16 mmol/L [facility] AST [Catalytic activity/Vol] 16 U/L 0 - 31 U/L [facility] Bilirubin [Mass/Vol] 0.4 mg/dL 0.0 - 1 .2 mg/dL [facility] Calcium [Mass/Vol] 9.3 mg/dL 8.6 - 10. 2 mg/dL [facility] Chloride [Moles/Vol] 104 mmol/L 98 - 10 7 mmol/L [facility] CO2 [Moles/Vol] 24 mmol/L 22 - 29 mmol/L [facility] Creatinine [Mass/Vol] 0.6 mg/dL 0.5 - 1.0 mg/dL [facility] GFR/1.73 sq M.predicted among non-blacks MDRD (S/P/Bld) [Vol rate/Area] mL/min/1.73 60 - PINF mL/min/1.[address] [facility] Comment on above: Pediatric calculator [...] 74 - 99 mg/dL [facility] Potassium [Moles/Vol] 4.3 mmol/L 3.5 - 5.0 mmol/L [facility] Protein [Mass/Vol] 7.6 g/dL 6.4 - 8.3 g/dL [facility] Sodium [Moles/Vol] 140 mmol/L 132 - 146 mmol/L [facility] Urea nitrogen [Mass/Vol] 13 mg/dL 6 - 20 mg/dL [facility] ACT PARTIAL THROMBO TIMEon 0 - ACT PARTIAL THROMBO TIME 30.4 SECONDS Normal 20.0-32.1 [facility] Comment on above: Result Comment: APTT THERAPEUTIC RANGE = 43.6 TO 68.4 SECONDS Performed By: #### V ITB1, ZINC #### [facility] [address] [place] [address] #### B12, FOL, CMP, PREALB, ANDREZ, CBCD #### [facility] [address] [place] [address] CBC with DIFFERENTIALon 04-0 Basophils (Bld) [#/Vol] 0.0 10*3/uL Normal 0.0-0.1 [facility] Comment on above: Performed By: #### V ITB1, ZINC #### [facility] [address] [place] [address] #### B12, FOL, CMP, PREALB, ANDREZ, CBCD #### [facility] [address] [place] [address] Basophils/100 WBC (Bld) 0.5 % Normal 0.0-1.0 [facility] Comment on above: Performed By: #### V ITB1, ZINC #### [facility] [address] [place] [address] #### B12, FOL, CMP, PREALB, ANDREZ, CBCD #### [facility] [address] [place] [address] Eosinophils (Bld) [#/Vol] 0.3 10*3/uL Normal 0.0-0.4 [facility] Comment on above: Performed By: #### V ITB1, ZINC #### [facility] [address] [place] [address] #### B12, FOL, CMP, PREALB, ANDREZ, CBCD #### [facility] [address] [place] [address] Eosinophils/100 WBC (Bld) 4.1 % High 1.0-4.0 [facility] Comment on above: Performed By: #### V ITB1, ZINC #### [facility] [address] [place] [address] #### B12, FOL, CMP, PREALB, ANDREZ, CBCD #### [facility] [address] [place] [address] Hematocrit (Bld) [Volume fraction] 40.6 % Normal 37.0-47.0 [facility] Comment on above: Performed By: #### V ITB1, ZINC #### [facility] [address] [place] [address] #### B12, FOL, CMP, PREALB, ANDREZ, CBCD #### [facility] [address] [place] [address] Hemoglobin (Bld) [Mass/Vol] 13.2 g/dL Normal 12.0-16.0 [facility] Comment on above: Performed By: #### V ITB1, ZINC #### [facility] [address] [place] [address] #### B12, FOL, CMP, PREALB, ANDREZ, CBCD #### [facility] [address] [place] [address] IG # 0.0 10*3/uL Normal 0.0-0.1 [facility] Comment on above: Performed By: #### V ITB1, ZINC #### [facility] [address] [place] [address] #### B12, FOL, CMP, PREALB, ANDREZ, CBCD #### [facility] [address] [place] [address] IG % 0.5 % Normal 0.0-1.0 [facility] Comment on above: Performed By: #### V ITB1, ZINC #### [facility] [address] [place] [address] #### B12, FOL, CMP, PREALB, ANDREZ, CBCD #### [facility] [address] [place] [address] Lymphocytes (Bld) [#/Vol] 3.2 10*3/uL Normal 1.3-4.4 [facility] Comment on above: Performed By: #### V ITB1, ZINC #### [facility] [address] [place] [address] #### B12, FOL, CMP, PREALB, ANDREZ, CBCD #### [facility] [address] [place] [address]2840 Lymphocytes/100 WBC (Bld) 41.8 % High 27.0-41.0 [facility] Comment on above: Performed By: #### V ITB1, ZINC #### [facility] [address] [place] [address] #### B12, FOL, CMP, PREALB, ANDREZ, CBCD #### [facility] [address] [place] [address]86 MCV (RBC) [Entitic vol] 88.6 fL Normal 81.0-99.0 [facility] Comment on above: Performed By: #### V ITB1, ZINC #### [facility] [address] [place] [address] #### B12, FOL, CMP, PREALB, ANDREZ, CBCD #### [facility] [address] [place] [address] 33900 MEAN CORPUSCULAR HGB 28.8 pg Normal 27.0-31.0 [facility] Comment on above: Performed By: #### V ITB1, ZINC #### [facility] [address] [place] [address] #### B12, FOL, CMP, PREALB, ANDREZ, CBCD #### [facility] [address] [place] [address] MEAN CORPUSCULAR HGB CONC 32.5 g/dl Low 33.0-37.0 [facility] Comment on above: Performed By: #### V ITB1, ZINC #### [facility] [address] [place] [address] #### B12, FOL, CMP, PREALB, ANDREZ, CBCD #### [facility] [address] [place] [address] 13217 Monocytes (Bld) [#/Vol] 0.4 10*3/uL Normal 0.1-1.0 [facility] Comment on above: Performed By: #### V ITB1, ZINC #### [facility] [address] [place] [address] #### B12, FOL, CMP, PREALB, ANDREZ, CBCD #### [facility] [address] [place] [address] 90733 Monocytes/100 WBC (Bld) 5.1 % Normal 3.0-9.0 [facility] Comment on above: Performed By: #### V ITB1, ZINC #### [facility] [address] [place] [address] #### B12, FOL, CMP, PREALB, ANDREZ, CBCD #### [facility] [address] [place] [address]361 Neutrophils (Bld) [#/Vol] 3.7 10*3/uL Normal 2.3-7.9 [facility] Comment on above: Performed By: #### V ITB1, ZINC #### [facility] [address] [place] [address] #### B12, FOL, CMP, PREALB, ANDREZ, CBCD #### [facility] [address] [place] [address] 15685 Neutrophils/100 WBC (Bld) 48.0 % Normal 47.0-73.0 [facility] Comment on above: Performed By: #### V ITB1, ZINC #### [facility] [address] [place] [address] #### B12, FOL, CMP, PREALB, ANDREZ, CBCD #### [facility] [address] [place] [address] 96672 NUCLEATED RED BLOOD CELL 0.0 10*3/uL Normal 0.0-0.0 [facility] Comment on above: Performed By: #### V ITB1, ZINC #### [facility] [address] [place] [address] #### B12, FOL, CMP, PREALB, ANDREZ, CBCD #### [facility] [address] [place], [place] [address] NUCLEATED RED BLOOD CELL 0.0 % Normal 0.0-0.0 [facility] Comment on above: Performed By: #### V ITB1, ZINC #### [facility] [address] #### B12, FOL, CMP, PREALB, ANDREZ, CBCD #### [facility] [address] [place] [address] PLATELET COUNT AUTOMATED 300 10*3/uL Normal 130-400 [facility] Comment on above: Performed By: #### V ITB1, ZINC #### [facility] [address] [place] [address] #### B12, FOL, CMP, PREALB, ANDREZ, CBCD #### [facility] [address] [place] [address] 58521 Platelet mean volume (Bld) [Entitic vol] 10.7 fL Normal 9.6-12.3 [facility] Comment on above: Performed By: #### V ITB1, ZINC #### [facility] [address] [place] [address] #### B12, FOL, CMP, PREALB, ANDREZ, CBCD #### [facility] [address] [place] [address] 45723 RBC (Bld) [#/Vol] 4.58 10*6/uL Normal 4.10-5.10 [facility] Comment on above: Performed By: #### V ITB1, ZINC #### [facility] [address] [place] [address] #### B12, FOL, CMP, PREALB, ANDREZ, CBCD #### [facility] [address] [place] [address]709 RED CELL DISTRI WIDTH 13.3 % Normal 0-14.5 [facility] Comment on above: Performed By: #### V ITB1, ZINC #### [facility] [address] [place] [address] #### B12, FOL, CMP, PREALB, ANDREZ, CBCD #### [facility] [address] [place] [address] 75761 WBC (Bld) [#/Vol] 7.6 10*3/uL Normal 4.8-10.8 [facility] Comment on above: Performed By: #### V ITB1, ZINC #### [facility] [address] [place] [address] #### B12, FOL, CMP, PREALB, ANDREZ, CBCD #### [facility] [address] [place] [address] 10985 COMPREHENSIVE METABOLIC PANE Evan 10-04-2022 Albumin [Mass/Vol] 3.8 g/dL Normal 3.4-5.0 [facility] Comment on above: Performed By: #### V ITB1, ZINC #### [facility] [address] [place] [address] #### B12, FOL, CMP, PREALB, ANDREZ, CBCD #### [facility] [address] [place] [address] 33334 ALP [Catalytic activity/Vol] 63 U/L Normal 46-116 [facility] Comment on above: Performed By: #### V ITB1, ZINC #### [facility] [address] [place] [address] #### B12, FOL, CMP, PREALB, ANDREZ, CBCD #### [facility] [address] [place] [address] ALT [Catalytic activity/Vol] 18 U/L Normal 10-49 [facility] Comment on above: Performed By: #### V ITB1, ZINC #### [facility] [address] [place] [address] #### B12, FOL, CMP, PREALB, ANDREZ, CBCD #### [facility] [address] [place] [address] AST [Catalytic activity/Vol] 15 U/L Normal 0-34 [facility] Comment on above: Performed By: #### V ITB1, ZINC #### [facility] [address] [place] [address] #### B12, FOL, CMP, PREALB, ANDREZ, CBCD #### [facility] [address] [place] [address] 26451 Bilirubin [Mass/Vol] 0.3 mg/dL Normal 0.3-1.2 [facility] Comment on above: Performed By: #### V ITB1, ZINC #### [facility] [address] [place] [address] #### B12, FOL, CMP, PREALB, ANDREZ, CBCD #### [facility] [address] [place] [address] 59525 CALCIUM,TOTAL 9.2 md/dL Normal 8.7-10.4 [facility] Comment on above: Performed By: #### V ITB1, ZINC #### [facility] [address] [place] [address] #### B12, FOL, CMP, PREALB, ANDREZ, CBCD #### [facility] [address] [place] [address] 25672 Chloride [Moles/Vol] 105 mmol/L Normal 98-107 [facility] Comment on above: Performed By: #### V ITB1, ZINC #### [facility] [address] [place] [address] #### B12, FOL, CMP, PREALB, ANDREZ, CBCD #### [facility] [address] [place] [address] CO2 [Moles/Vol] 27 mmol/L Normal 20-31 [facility] Comment on above: Performed By: #### V ITB1, ZINC #### [facility] [address] [place] [address] #### B12, FOL, CMP, PREALB, ANDREZ, CBCD #### [facility] [address] [place] [address] Creatinine [Mass/Vol] 0.61 mg/dL Normal 0.55-1.02 [facility] Comment on above: Performed By: #### V ITB1, ZINC #### [facility] [address] [place] [address] #### B12, FOL, CMP, PREALB, ANDREZ, CBCD #### [facility] [address] [place] [address] EST GLOM FILT > 60 Normal [facility] Comment on above: Result Comment: Result [...] #### V ITB1, ZINC #### [facility] [address] [place] [address] #### B12, FOL, CMP, PREALB, ANDREZ, CBCD #### [facility] [address] [place] [address] ESTIMATED GLOM FILT RATE > 60 Normal [facility] Comment on above: Performed By: #### V ITB1, ZINC #### [facility] [address] [place] [address] #### B12, FOL, CMP, PREALB, ANDREZ, CBCD #### [facility] [address] [place] [address] 37543 Glucose [Mass/Vol] 87 mg/dL Normal 65-99 [facility] Comment on above: Performed By: #### V ITB1, ZINC #### [facility] [address] [place] [address] #### B12, FOL, CMP, PREALB, ANDREZ, CBCD #### [facility] [address] [place] [address] 65289 Potassium [Moles/Vol] 4.2 mmol/L Normal 3.4-5.1 [facility] Comment on above: Performed By: #### V ITB1, ZINC #### [facility] [address] [place] [address] #### B12, FOL, CMP, PREALB, ANDREZ, CBCD #### [facility] [address] [place] [address] 46572 Protein [Mass/Vol] 6.9 g/dL Normal 6.0-8.0 [facility] Comment on above: Performed By: #### V ITB1, ZINC #### [facility] [address] [place] [address] #### B12, FOL, CMP, PREALB, ANDREZ, CBCD #### [facility] [address] [place] [address] 28295 Sodium [Moles/Vol] 139 mmol/L Normal 136-145 [facility] Comment on above: Performed By: #### V ITB1, ZINC #### [facility] [address] [place] [address] #### B12, FOL, CMP, PREALB, ANDREZ, CBCD #### [facility] [address] [place] [address] 19376 Urea nitrogen [Mass/Vol] 14 mg/dL Normal 9-23 [facility] Comment on above: Performed By: #### V ITB1, ZINC #### [facility] [address] [place] [address] #### B12, FOL, CMP, PREALB, ANDREZ, CBCD #### [facility] [address] [place] [address] [id number] 10-04-2022 ESTIMATED AVERAGE GLUCOSE 100 Normal [facility] Comment on above: Performed By: #### V ITB1, ZINC #### [facility] [address] [place] [address] #### B12, FOL, CMP, PREALB, ANDREZ, CBCD #### [facility] [address] [place] [address] 34954 HbA1c (Bld) [Mass fraction] 5.1 % Normal 4.8-5.6 [facility] Comment on above: Result Comment: Standarization of method based on National Glycohemoglobin Standardization Program (NGSP). HEMOGLOBIN A1c(%) DEGREE of GLUCOSE CONTROL 5.7-6.4% Prediabetes range >6.4% Diagnosis of Diabetes <7% Glycemic control for adults with Diabetes Performed By: #### V ITB1, ZINC #### [facility] [address] [place] [address] #### B12, FOL, CMP, PREALB, ANDREZ, CBCD #### [facility] [address] [place] [address] LIPID PANEL CHOLESTEROL/HDLo n 10-04-2022 Cholesterol [Mass/Vol] 122 mg/dL Normal <200 [facility] Comment on above: Performed By: #### V ITB1, ZINC #### [facility] [address] [place] [address] #### B12, FOL, CMP, PREALB, ANDREZ, CBCD #### [facility] [address] [place] [address] Cholesterol in HDL [Mass/Vol] 28 mg/dL Low 40-60 [facility] Comment on above: Performed By: #### V ITB1, ZINC #### [facility] [address] [place] [address] #### B12, FOL, CMP, PREALB, ANDREZ, CBCD #### [facility] [address] [place] [address] 65266 Cholesterol in LDL [Mass/Vol] 55 mg/dL Normal 9-159 [facility] Comment on above: Performed By: #### V ITB1, ZINC #### [facility] [address] [place] [address] #### B12, FOL, CMP, PREALB, ANDREZ, CBCD #### [facility] [address] [place] [address] 03052 Cholesterol.total/Chol esterol in HDL [Mass ratio] 4.4 {ratio} Normal [facility] Comment on above: Performed By: #### V ITB1, ZINC #### [facility] [address] [place] [address] #### B12, FOL, CMP, PREALB, ANDREZ, CBCD #### [facility] [address] [place] [address] 20849 Triglyceride [Mass/Vol] 196 mg/dL High <150 [facility] Comment on above: Result Comment: TRIGLYCERIDE RISK ASSESSMENT: 150-199 mg/dl BORDERLINE HIGH >200 mg//dl HIGH . Performed By: #### V ITB1, ZINC #### [facility] [address] [place] [address] #### B12, FOL, CMP, PREALB, ANDREZ, CBCD #### [facility] [address] [place] [address] 85884 VLDL CHOLESTEROL 39 mg/dL Normal 6-40 [facility] Comment on above: Performed By: #### V ITB1, ZINC #### [facility] [address] [place] [address] #### B12, FOL, CMP, PREALB, ANDREZ, CBCD #### [facility] [address] [place] [address] THROAT CULTUREon 08-15-2022 Throat culture THROAT CULTURE NORMAL ARIN Normal [facility] Comment on above: Performed By: #### V ITB1, ZINC #### [facility] [address] [place] [address] #### B12, FOL, CMP, PREALB, ANDREZ, CBCD #### [facility] [address] [place] [address] NOVL CORONAVIRUS NAAon 08-14 SARS-CoV-2 (COVID-19) RNA SUJATA+probe Ql (Unsp spec) Detected Abnormal Not Detected [facility] Comment on above: Result Comment: Evelyn ents who have a positive COVID-19 test result may now have treatment options. Treatment options are available for patients with mild to moderate symptoms and for hospitalized patients. Visit our website at [email or web address] for resources and information. This nucleic acid amplification test was developed and its performance characteristics determined by [employer]. Nucleic acid amplification tests include RT- PCR [...] #### V ITB1, ZINC #### [facility] [address] [place] [address] #### B12, FOL, CMP, PREALB, ANDREZ, CBCD #### [facility] [address] [place] [address] 72773 CBC with DIFFERENTIALon 08-01 Basophils (Bld) [#/Vol] 0.0 10*3/uL Normal 0.0-0.1 [facility] Comment on above: Performed By: #### V ITB1, ZINC #### [facility] [address] [place] [address] #### B12, FOL, CMP, PREALB, ANDREZ, CBCD #### [facility] [address] [place] [address] 71455 Basophils/100 WBC (Bld) 0.5 % Normal 0.0-1.0 [facility] Comment on above: Performed By: #### V ITB1, ZINC #### [facility] [address] [place] [address] #### B12, FOL, CMP, PREALB, ANDREZ, CBCD #### [facility] [address] [place] [address] 16997 Eosinophils (Bld) [#/Vol] 0.2 10*3/uL Normal 0.0-0.4 [facility] Comment on above: Performed By: #### V ITB1, ZINC #### [facility] [address] [place] [address] #### B12, FOL, CMP, PREALB, ANDREZ, CBCD #### [facility] [address] [place] [address] 09951 Eosinophils/100 WBC (Bld) 4.2 % High 1.0-4.0 [facility] Comment on above: Performed By: #### V ITB1, ZINC #### [facility] [address] [place] [address] #### B12, FOL, CMP, PREALB, ANDREZ, CBCD #### [facility] [address] [place] [address] 86946 Hematocrit (Bld) [Volume fraction] 43.8 % Normal 37.0-47.0 [facility] Comment on above: Performed By: #### V ITB1, ZINC #### [facility] [address] [place] [address] #### B12, FOL, CMP, PREALB, ANDREZ, CBCD #### [facility] [address] [place] [address] 89644 Hemoglobin (Bld) [Mass/Vol] 14.0 g/dL Normal 12.0-16.0 [facility] Comment on above: Performed By: #### V ITB1, ZINC #### [facility] [address] [place] [address] #### B12, FOL, CMP, PREALB, ANDREZ, CBCD #### [facility] [address] [place] [address] 81393 IG # 0.1 10*3/uL Normal 0.0-0.1 [facility] Comment on above: Performed By: #### V ITB1, ZINC #### [facility] [address] [place] [address] #### B12, FOL, CMP, PREALB, ANDREZ, CBCD #### [facility] [address] [place] [address] 43340 IG % 1.1 % High 0.0-1.0 [facility] Comment on above: Performed By: #### V ITB1, ZINC #### [facility] [address] [place] [address] #### B12, FOL, CMP, PREALB, ANDREZ, CBCD #### [facility] [address] [place] [address] 66287 Lymphocytes (Bld) [#/Vol] 2.9 10*3/uL Normal 1.3-4.4 [facility] Comment on above: Performed By: #### V ITB1, ZINC #### [facility] [address] [place] [address] #### B12, FOL, CMP, PREALB, ANDREZ, CBCD #### [facility] [address] [place] [address] 80319 Lymphocytes/100 WBC (Bld) 51.5 % High 27.0-41.0 [facility] Comment on above: Performed By: #### V ITB1, ZINC #### [facility] [address] [place] [address] #### B12, FOL, CMP, PREALB, ANDREZ, CBCD #### [facility] [address] [place] [address] 88763 MCV (RBC) [Entitic vol] 88.8 fL Normal 81.0-99.0 [facility] Comment on above: Performed By: #### V ITB1, ZINC #### [facility] [address] [place] [address] #### B12, FOL, CMP, PREALB, ANDREZ, CBCD #### [facility] [address] [place] [address] 04601 MEAN CORPUSCULAR HGB 28.4 pg Normal 27.0-31.0 [facility] Comment on above: Performed By: #### V ITB1, ZINC #### [facility] [address] [place] [address] #### B12, FOL, CMP, PREALB, ANDREZ, CBCD #### [facility] [address] [place] [address] 58798 MEAN CORPUSCULAR HGB CONC 32.0 g/dl Low 33.0-37.0 [facility] Comment on above: Performed By: #### V ITB1, ZINC #### [facility] [address] [place] [address] #### B12, FOL, CMP, PREALB, ANDREZ, CBCD #### [facility] [address] [place] [address] 50977 Monocytes (Bld) [#/Vol] 0.4 10*3/uL Normal 0.1-1.0 [facility] Comment on above: Performed By: #### V ITB1, ZINC #### [facility] [address] [place] [address] #### B12, FOL, CMP, PREALB, ANDREZ, CBCD #### [facility] [address] [place] [address] 54691 Monocytes/100 WBC (Bld) 7.0 % Normal 3.0-9.0 [facility] Comment on above: Performed By: #### V ITB1, ZINC #### [facility] [address] [place] [address] #### B12, FOL, CMP, PREALB, ANDREZ, CBCD #### [facility] [address] [place] [address] 66498 Neutrophils (Bld) [#/Vol] 2.0 10*3/uL Low 2.3-7.9 [facility] Comment on above: Performed By: #### V ITB1, ZINC #### [facility] [address] [place] [address] #### B12, FOL, CMP, PREALB, ANDREZ, CBCD #### [facility] [address] [place] [address] 49821 Neutrophils/100 WBC (Bld) 35.7 % Low 47.0-73.0 [facility] Comment on above: Performed By: #### V ITB1, ZINC #### [facility] [address] [place] [address] #### B12, FOL, CMP, PREALB, ANDREZ, CBCD #### [facility] [address] [place] [address] 87490 NUCLEATED RED BLOOD CELL 0.0 10*3/uL Normal 0.0-0.0 [facility] Comment on above: Performed By: #### V ITB1, ZINC #### [facility] [address] [place] [address] #### B12, FOL, CMP, PREALB, ANDREZ, CBCD #### [facility] [address] [place] [address] NUCLEATED RED BLOOD CELL 0.0 % Normal 0.0-0.0 [facility] Comment on above: Performed By: #### V ITB1, ZINC #### [facility] [address] [place] [address] #### B12, FOL, CMP, PREALB, ANDREZ, CBCD #### [facility] [address] [place] [address] PLATELET COUNT AUTOMATED 277 10*3/uL Normal 130-400 [facility] Comment on above: Performed By: #### V ITB1, ZINC #### [facility] [address] [place] [address] #### B12, FOL, CMP, PREALB, ANDREZ, CBCD #### [facility] [address] [place] [address] 85063 Platelet mean volume (Bld) [Entitic vol] 10.1 fL Normal 9.6-12.3 [facility] Comment on above: Performed By: #### V ITB1, ZINC #### [facility] [address] [place] [address] #### B12, FOL, CMP, PREALB, ANDREZ, CBCD #### [facility] [address] [place] [address] 84410 RBC (Bld) [#/Vol] 4.93 10*6/uL Normal 4.10-5.10 [facility] Comment on above: Performed By: #### V ITB1, ZINC #### [facility] [address] [place] [address] #### B12, FOL, CMP, PREALB, ANDREZ, CBCD #### [facility] [address] [place] [address] 84506 RED CELL DISTRI WIDTH 13.6 % Normal 0-14.5 [facility] Comment on above: Performed By: #### V ITB1, ZINC #### [facility] [address] [place] [address] #### B12, FOL, CMP, PREALB, ANDREZ, CBCD #### [facility] [address] [place] [address] WBC (Bld) [#/Vol] 5.7 10*3/uL Normal 4.8-10.8 [facility] Comment on above: Performed By: #### V ITB1, ZINC #### [facility] [address] [place] [address] #### B12, FOL, CMP, PREALB, ANDREZ, CBCD #### [facility] [address] [place] [address] CHEST (2 V)on 08-13-2022 CRCXR Name: BATOOL KINGSLEY Phys: KAELA FRENCH CNP : 2000 Age: 22 Sex: F Acct: [id number] Loc: RAD Exam Date: 08/13/2022 Status: REG CLI Radiology No: [id number] Unit No: [id number] EXAM# TYPE/EXAM RESULT [id number] RAD/CHEST (2 V) SEE REPORT INDICATION: Stuffy [...] CC: Technologist: WIN CHRISTIE Transcribed Date/Time: 08/13/2022 (1682) Gasket Winder: OSCAR Printed Date/Time: 08/13/2022 (6802) PAGE 1 Signed Report Normal [facility] COMPREHENSIVE METABOLIC PANE Evan 08-13-2022 Albumin [Mass/Vol] 3.7 g/dL Normal 3.4-5.0 [facility] Comment on above: Performed By: #### V ITB1, ZINC #### [facility] [address] [place] [address] #### B12, FOL, CMP, PREALB, ANDREZ, CBCD #### [facility] [address] [place] [address] 85298 ALP [Catalytic activity/Vol] 56 U/L Normal 46-116 [facility] Comment on above: Performed By: #### V ITB1, ZINC #### [facility] [address] [place] [address] #### B12, FOL, CMP, PREALB, ANDREZ, CBCD #### [facility] [address] [place] [address] 48846 ALT [Catalytic activity/Vol] 21 U/L Normal 10-49 [facility] Comment on above: Performed By: #### V ITB1, ZINC #### [facility] [address] [place] [address] #### B12, FOL, CMP, PREALB, ANDREZ, CBCD #### [facility] [address] [place] [address] 76765 AST [Catalytic activity/Vol] 23 U/L Normal 0-34 [facility] Comment on above: Performed By: #### V ITB1, ZINC #### [facility] [address] [place] [address] #### B12, FOL, CMP, PREALB, ANDREZ, CBCD #### [facility] [address] [place] [address] 07524 Bilirubin [Mass/Vol] mg/dL Low 0.3-1.2 [facility] Comment on above: Performed By: #### V ITB1, ZINC #### [facility] [address] [place] [address] #### B12, FOL, CMP, PREALB, ANDREZ, CBCD #### [facility] [address] [place] [address] 04991 CALCIUM,TOTAL 9.2 md/dL Normal 8.7-10.4 [facility] Comment on above: Performed By: #### V ITB1, ZINC #### [facility] [address] [place] [address] #### B12, FOL, CMP, PREALB, ANDREZ, CBCD #### [facility] [address] [place] [address] Chloride [Moles/Vol] 105 mmol/L Normal 98-107 [facility] Comment on above: Performed By: #### V ITB1, ZINC #### [facility] [address] [place] [address] #### B12, FOL, CMP, PREALB, ANDREZ, CBCD #### [facility] [address] [place] [address] CO2 [Moles/Vol] 25 mmol/L Normal 20-31 [facility] Comment on above: Performed By: #### V ITB1, ZINC #### [facility] [address] [place] [address] #### B12, FOL, CMP, PREALB, ANDREZ, CBCD #### [facility] [address] [place] [address] Creatinine [Mass/Vol] 0.53 mg/dL Low 0.55-1.[address] [facility] Comment on above: Performed By: #### V ITB1, ZINC #### [facility] [address] [place] [address] #### B12, FOL, CMP, PREALB, ANDREZ, CBCD #### [facility] [address] [place] [address] EST GLOM FILT > 60 Normal [facility] Comment on above: Result Comment: Result [...] #### V ITB1, ZINC #### [facility] [address] [place] [address] #### B12, FOL, CMP, PREALB, ANDREZ, CBCD #### [facility] [address] [place] [address] 06514 ESTIMATED GLOM FILT RATE > 60 Normal [facility] Comment on above: Performed By: #### V ITB1, ZINC #### [facility] [address] [place] [address] #### B12, FOL, CMP, PREALB, ANDREZ, CBCD #### [facility] [address] [place] [address] 61413 Glucose [Mass/Vol] 81 mg/dL Normal 65-99 [facility] Comment on above: Performed By: #### V ITB1, ZINC #### [facility] [address] [place] [address] #### B12, FOL, CMP, PREALB, ANDREZ, CBCD #### [facility] [address] [place] [address] 81049 Potassium [Moles/Vol] 4.5 mmol/L Normal 3.4-5.1 [facility] Comment on above: Performed By: #### V ITB1, ZINC #### [facility] [address] [place] [address] #### B12, FOL, CMP, PREALB, ANDREZ, CBCD #### [facility] [address] [place] [address] 50510 Protein [Mass/Vol] 7.0 g/dL Normal 6.0-8.0 [facility] Comment on above: Performed By: #### V ITB1, ZINC #### [facility] [address] [place] [address] #### B12, FOL, CMP, PREALB, ANDREZ, CBCD #### [facility] [address] [place] [address] 40271 Sodium [Moles/Vol] 138 mmol/L Normal 136-145 [facility] Comment on above: Performed By: #### V ITB1, ZINC #### [facility] [address] #### B12, FOL, CMP, PREALB, ANDREZ, CBCD #### [facility] [address] [place] [address] 55625 Urea nitrogen [Mass/Vol] 7 mg/dL Low - [facility] Comment on above: Performed By: #### V ITB1, ZINC #### [facility] [address] [place] [id number] #### B12, FOL, CMP, PREALB, ANDREZ, CBCD #### [facility] [address] [place] [address] 57335 ESR (Sed Rate)on 08-13-2022 ESR (Bld) [Velocity] 20 mm/h Normal 0-20 [facility] Comment on above: Performed By: #### V ITB1, ZINC #### [facility] [address] [place] [address] #### B12, FOL, CMP, PREALB, ANDREZ, CBCD #### [facility] [address] [place] [address] 21123 CBC with DIFFERENTIALon 07-03 Basophils (Bld) [#/Vol] 0.1 10*3/uL Normal 0.0-0.1 [facility] Comment on above: Performed By: #### C MP, TSH, LIPPAN, HBA1C, CBCD, INS #### [facility] [address] [place] [address] 43973 Basophils/100 WBC (Bld) 0.7 % Normal 0.0-1.0 [facility] Comment on above: Performed By: #### C MP, TSH, LIPPAN, HBA1C, CBCD, INS #### [facility] [address] [place] [address] Eosinophils (Bld) [#/Vol] 0.3 10*3/uL Normal 0.0-0.4 [facility] Comment on above: Performed By: #### C MP, TSH, LIPPAN, HBA1C, CBCD, INS #### [facility] [address] [place] [address] 17830 Eosinophils/100 WBC (Bld) 4.3 % High 1.0-4.0 [facility] Comment on above: Performed By: #### C MP, TSH, LIPPAN, HBA1C, CBCD, INS #### [facility] [address] [place] [address] 26357 Hematocrit (Bld) [Volume fraction] 43.7 % Normal 37.0-47.0 [facility] Comment on above: Performed By: #### C MP, TSH, LIPPAN, HBA1C, CBCD, INS #### [facility] [address] [place] [address] 29440 Hemoglobin (Bld) [Mass/Vol] 13.9 g/dL Normal 12.0-16.0 [facility] Comment on above: Performed By: #### C MP, TSH, LIPPAN, HBA1C, CBCD, INS #### [facility] [address] [place] [address] IG # 0.0 10*3/uL Normal 0.0-0.1 [facility] Comment on above: Performed By: #### C MP, TSH, LIPPAN, HBA1C, CBCD, INS #### [facility] [address] [place] [address] IG % 0.4 % Normal 0.0-1.0 [facility] Comment on above: Performed By: #### C MP, TSH, LIPPAN, HBA1C, CBCD, INS #### [facility] [address] [place] [address] 97678 Lymphocytes (Bld) [#/Vol] 3.2 10*3/uL Normal 1.3-4.4 [facility] Comment on above: Performed By: #### C MP, TSH, LIPPAN, HBA1C, CBCD, INS #### [facility] [address] [place] [address] 11954 Lymphocytes/100 WBC (Bld) 42.7 % High 27.0-41.0 [facility] Comment on above: Performed By: #### C MP, TSH, LIPPAN, HBA1C, CBCD, INS #### [facility] [address] [place] [address] 58902 MCV (RBC) [Entitic vol] 90.3 fL Normal 81.0-99.0 [facility] Comment on above: Performed By: #### C MP, TSH, LIPPAN, HBA1C, CBCD, INS #### [facility] [address] [place] [address] 16803 MEAN CORPUSCULAR HGB 28.7 pg Normal 27.0-31.0 [facility] Comment on above: Performed By: #### C MP, TSH, LIPPAN, HBA1C, CBCD, INS #### [facility] [address] [place] [address] 47195 MEAN CORPUSCULAR HGB CONC 31.8 g/dl Low 33.0-37.0 [facility] Comment on above: Performed By: #### C MP, TSH, LIPPAN, HBA1C, CBCD, INS #### [facility] [address] [place] [address] 98144 Monocytes (Bld) [#/Vol] 0.4 10*3/uL Normal 0.1-1.0 [facility] Comment on above: Performed By: #### C MP, TSH, LIPPAN, HBA1C, CBCD, INS #### [facility] [address] [place] [address] 12402 Monocytes/100 WBC (Bld) 5.4 % Normal 3.0-9.0 [facility] Comment on above: Performed By: #### C MP, TSH, LIPPAN, HBA1C, CBCD, INS #### [facility] [address] [place] [address] Neutrophils (Bld) [#/Vol] 3.4 10*3/uL Normal 2.3-7.9 [facility] Comment on above: Performed By: #### C MP, TSH, LIPPAN, HBA1C, CBCD, INS #### [facility] [address] [place] [address] Neutrophils/100 WBC (Bld) 46.5 % Low 47.0-73.0 [facility] Comment on above: Performed By: #### C MP, TSH, LIPPAN, HBA1C, CBCD, INS #### [facility] [address] [place] [address] NUCLEATED RED BLOOD CELL 0.0 10*3/uL Normal 0.0-0.0 [facility] Comment on above: Performed By: #### C MP, TSH, LIPPAN, HBA1C, CBCD, INS #### [facility] [address] [place] [address] 19087 NUCLEATED RED BLOOD CELL 0.0 % Normal 0.0-0.0 [facility] Comment on above: Performed By: #### C MP, TSH, LIPPAN, HBA1C, CBCD, INS #### [facility] [address] [place] [address] PLATELET COUNT AUTOMATED 309 10*3/uL Normal 130-400 [facility] Comment on above: Performed By: #### C MP, TSH, LIPPAN, HBA1C, CBCD, INS #### [facility] [address] [place] [address] Platelet mean volume (Bld) [Entitic vol] 10.3 fL Normal 9.6-12.3 [facility] Comment on above: Performed By: #### C MP, TSH, LIPPAN, HBA1C, CBCD, INS #### [facility] [address] [place] [address] 20699 RBC (Bld) [#/Vol] 4.84 10*6/uL Normal 4.10-5.10 [facility] Comment on above: Performed By: #### C MP, TSH, LIPPAN, HBA1C, CBCD, INS #### [facility] [address] [place] [address] RED CELL DISTRI WIDTH 13.5 % Normal 0-14.5 [facility] Comment on above: Performed By: #### C MP, TSH, LIPPAN, HBA1C, CBCD, INS #### [facility] [address] [place] [address] WBC (Bld) [#/Vol] 7.4 10*3/uL Normal 4.8-10.8 [facility] Comment on above: Performed By: #### C MP, TSH, LIPPAN, HBA1C, CBCD, INS #### [facility] [address] [place] [address] COMPREHENSIVE METABOLIC PANE [facility] 07-31-2022 Albumin [Mass/Vol] 3.9 g/dL Normal 3.4-5.0 [facility] Comment on above: Performed By: #### V ITB1, ZINC #### [facility] [address] [place] [address] #### B12, FOL, CMP, PREALB, ANDREZ, CBCD #### [facility] [address] [place] [address] 49020 ALP [Catalytic activity/Vol] 60 U/L Normal 46-116 [facility] Comment on above: Performed By: #### V ITB1, ZINC #### [facility] [address] [place] [address] #### B12, FOL, CMP, PREALB, ANDREZ, CBCD #### [facility] [address] [place] [address] 30391 ALT [Catalytic activity/Vol] 23 U/L Normal 10-49 [facility] Comment on above: Performed By: #### V ITB1, ZINC #### [facility] [address] [place] [address] #### B12, FOL, CMP, PREALB, ANDRZE, CBCD #### [facility] [address] [place] [address] AST [Catalytic activity/Vol] 17 U/L Normal 0-34 [facility] Comment on above: Performed By: #### V ITB1, ZINC #### [facility] [address] [place] [address] #### B12, FOL, CMP, PREALB, ANDREZ, CBCD #### [facility] [address] [place] [address] Bilirubin [Mass/Vol] 0.3 mg/dL Normal 0.3-1.2 [facility] Comment on above: Performed By: #### V ITB1, ZINC #### [facility] [address] [place] [address] #### B12, FOL, CMP, PREALB, ANDREZ, CBCD #### [facility] [address] [place] [address] 61773 CALCIUM,TOTAL 9.6 md/dL Normal 8.7-10.4 [facility] Comment on above: Performed By: #### V ITB1, ZINC #### [facility] [address] [place] [address] #### B12, FOL, CMP, PREALB, ANDREZ, CBCD #### [facility] [address] [place] [address] 40645 Chloride [Moles/Vol] 102 mmol/L Normal 98-107 [facility] Comment on above: Performed By: #### V ITB1, ZINC #### [facility] [address] [place] [address] #### B12, FOL, CMP, PREALB, ANDREZ, CBCD #### [facility] [address] [place] [address] 93499 CO2 [Moles/Vol] 27 mmol/L Normal 20-31 [facility] Comment on above: Performed By: #### V ITB1, ZINC #### [facility] [address] [place] [address] #### B12, FOL, CMP, PREALB, ANDREZ, CBCD #### [facility] Laboratory [address] [place] [address] Creatinine [Mass/Vol] 0.58 mg/dL Normal 0.55-1.02 [facility] Comment on above: Performed By: #### V ITB1, ZINC #### [facility] [address] [place] [address] #### B12, FOL, CMP, PREALB, ANDREZ, CBCD #### [facility] [address] [place] [address] EST GLOM FILT > 60 Normal [facility] Comment on above: Result Comment: Result [...] #### V ITB1, ZINC #### [facility] [address] [place] [address] #### B12, FOL, CMP, PREALB, ANDREZ, CBCD #### [facility] [address] [place] [address] ESTIMATED GLOM FILT RATE > 60 Normal [facility] Comment on above: Performed By: #### V ITB1, ZINC #### [facility] [address] [place] [address] #### B12, FOL, CMP, PREALB, ANDREZ, CBCD #### [facility] [address] [place] [address] Glucose [Mass/Vol] 73 mg/dL Normal 65-99 [facility] Comment on above: Performed By: #### V ITB1, ZINC #### [facility] [address] [place] [address] #### B12, FOL, CMP, PREALB, ANDREZ, CBCD #### [facility] [address] [place] [address] Potassium [Moles/Vol] 4.2 mmol/L Normal 3.4-5.1 [facility] Comment on above: Performed By: #### V ITB1, ZINC #### [facility] [address] [place] [address] #### B12, FOL, CMP, PREALB, ANDREZ, CBCD #### [facility] [address] [place] [address] Protein [Mass/Vol] 7.2 g/dL Normal 6.0-8.0 [facility] Comment on above: Performed By: #### V ITB1, ZINC #### [facility] [address] [place] [address] #### B12, FOL, CMP, PREALB, ANDREZ, CBCD #### [facility] [address] [place] [address] Sodium [Moles/Vol] 137 mmol/L Normal 136-145 [facility] Comment on above: Performed By: #### V ITB1, ZINC #### [facility] [address] [place] [address] #### B12, FOL, CMP, PREALB, ANDREZ, CBCD #### [facility] [address] [place] [address] Urea nitrogen [Mass/Vol] 11 mg/dL Normal 9-23 [facility] Comment on above: Performed By: #### V ITB1, ZINC #### [facility] [address] [place] [address] #### B12, FOL, CMP, PREALB, ANDREZ, CBCD #### [facility] [address] [place] [address] [id number] 07-31-2022 ESTIMATED AVERAGE GLUCOSE 100 Normal [facility] Comment on above: Performed By: #### V ITB1, ZINC #### [facility] [address] #### B12, FOL, CMP, PREALB, ANDREZ, CBCD #### [facility] [address] [place] [address] HbA1c (Bld) [Mass fraction] 5.1 % Normal 4.8-5.6 [facility] Comment on above: Result Comment: Standarization of method based on National Glycohemoglobin Standardization Program (NGSP). HEMOGLOBIN A1c(%) DEGREE of GLUCOSE CONTROL 5.7-6.4% Prediabetes range >6.4% Diagnosis of Diabetes <7% Glycemic control for adults with Diabetes Performed By: #### V ITB1, ZINC #### [facility] [address] #### B12, FOL, CMP, PREALB, ANDREZ, CBCD #### [facility] [address] [place] [address] INSULINon 07-31-2022 INSULIN 45.6 mU/L High 2.6-37.6 [facility] Comment on above: Performed By: #### V ITB1, ZINC #### [facility] [address] #### B12, FOL, CMP, PREALB, ANDREZ, CBCD #### [facility] [address] [place] [address] LIPID PANEL CHOLESTEROL/HDLo n 07-31-2022 Cholesterol [Mass/Vol] 170 mg/dL Normal <200 [facility] Comment on above: Performed By: #### V ITB1, ZINC #### [facility] [address] [place] [address] #### B12, FOL, CMP, PREALB, ANDREZ, CBCD #### [facility] [address] [place] [address] Cholesterol in HDL [Mass/Vol] 31 mg/dL Low 40-60 [facility] Comment on above: Performed By: #### V ITB1, ZINC #### [facility] [address] [place] [address] #### B12, FOL, CMP, PREALB, ANDREZ, CBCD #### [facility] [address] [place] [address] Cholesterol in LDL [Mass/Vol] 73 mg/dL Normal 9-159 [facility] Comment on above: Performed By: #### V ITB1, ZINC #### [facility] [address] [place] [address] #### B12, FOL, CMP, PREALB, ANDREZ, CBCD #### [facility] [address] [place] [address] Cholesterol.total/Chol esterol in HDL [Mass ratio] 5.5 {ratio} Normal [facility] Comment on above: Performed By: #### V ITB1, ZINC #### [facility] [address] [place] [address] #### B12, FOL, CMP, PREALB, ANDREZ, CBCD #### [facility] [address] [place] [address] Triglyceride [Mass/Vol] 328 mg/dL High <150 [facility] Comment on above: Result Comment: TRIGLYCERIDE RISK ASSESSMENT: 150-199 mg/dl BORDERLINE HIGH >200 mg//dl HIGH . Performed By: #### V ITB1, ZINC #### [facility] [address] [place] [address] #### B12, FOL, CMP, PREALB, ANDREZ, CBCD #### [facility] [address] [place] [address] VLDL CHOLESTEROL 66 mg/dL High 6-40 [facility] Comment on above: Performed By: #### V ITB1, ZINC #### [facility] [address] [place] [address] #### B12, FOL, CMP, PREALB, ANDREZ, CBCD #### [facility] [address] [place] [address] THYROID STIM HORMONE (HS)on 07-31-2022 THYROID STIM HORMONE (HS) 2.569 uIU/ml Normal 0.550-4.780 [facility] Comment on above: Performed By: #### V ITB1, ZINC #### [facility] [address] [place] [address] #### B12, FOL, CMP, PREALB, ANDREZ, CBCD #### [facility] [address] [place] [address] NICOTINE METABOLITE, QUANTon 07-19-2022 COTININE <1.0 Normal . [facility] Comment on above: Order Comment: FAX T O [phone] Result Comment: This test was developed and its performance characteristics determined by [facility]. It has not been cleared or approved by the Food and Drug Administration. Cotinine levels greater than 20.0 are consistent with the use of tobacco or tobacco cessation products. Performed at: [address] [id number] Retail Delivery Driver: Estuardo Michelle MD, Phone: [phone] Performed By: #### N ICOTINE #### [facility] [address] [place] [address] NICOTINE <1.0 Normal . [facility] Comment on above: Order Comment: FAX T O [phone] Result Comment: This test was developed and its performance characteristics determined by [facility]. It has not been cleared or approved by the Food and Drug Administration. Nicotine levels greater than 2.0 are consistent with the use of tobacco or tobacco cessation products. Performed By: #### N ICOTINE #### [facility] [address] [place] [address] HIPS BILATERAL (2V)on 2021 [id number] Name: BATOOL KINGSLEY Phys: LASHAWN WELLS NP : 2000 Age: 22 Sex: F Acct: [id number] Loc: RAD Exam Date: 06/14/2022 Status: REG CLI Radiology No: [id number] Unit No: [id number] EXAM# TYPE/EXAM RESULT [id number] RAD/HIPS BILATERAL (2V) SEE REPORT INDICATION: Sharp [...] NP Technologist: Eugene Wagner Transcribed Date/Time: 06/14/2022 (6544) Gasket Winder: OSCAR Printed Date/Time: 06/14/2022 (7849) PAGE 1 Signed Report Normal [facility] Vitamin B1 (Thiamine), Whole Bloodon 05-09-2022 Vitamin B1, Whole Blood 116 nmol/L Normal 70-180 [facility] Comment on above: Result Comment: INTE [...] developed and its performance characteristics determined by [facility]. It has not been cleared or approved by the US Food and Drug Administration. This test was performed in a CLIA certified laboratory and is intended for clinical purposes. Performed By: [facility] [address] [id number] Crust Sorter: Francisco Javier Zhang MD, PhD Performed By: #### 8 0388 ####[facility] Reference [id number] [id number] Zinc, Serumon 05-07-2022 Zinc, Serum 75.6 ug/dL Normal 60.0-120.0 [facility] Comment on above: Result Comment: INTE [...] developed and its performance characteristics determined by [facility]. It has not been cleared or approved by the US Food and Drug Administration. This test was performed in a CLIA certified laboratory and is intended for clinical purposes. Performed By: [facility] [address] [place] [address] Crust Sorter: Francisco Javier Zhang MD, PhD Performed By: #### 2 0097 #### [facility] Reference Lab [address] [place] [address] Blood glucose - POCTon 05-04 Glucose [Mass/Vol] 96 mg/dL [facility] [employer] Work Phone: QC OK? [facility] [employer] Work Phone: CBCon 05-04-2022 Hematocrit (Bld) [Volume fraction] 40.4 % 34.0 - 48.0 % [facility] Hemoglobin (Bld) [Mass/Vol] 13.2 g/dL 11.5 - 15.5 g/dL [facility] MCH (RBC) [Entitic mass] 29.9 pg 26.0 - 35.[address] [facility] MCHC (RBC) [Mass/Vol] 32.7 % 32.0 - 34.5 % [facility] MCV (RBC) [Entitic vol] 91.6 fL 80.0 - 99.9 fL [facility] [employer] Platelet distribution width (Bld) [Ratio] 13.0 fL 11.5 - 15.[address] [facility] Platelet mean volume (Bld) [Entitic vol] 9.8 fL 7.0 - 12.[address] [facility] Platelets (Bld) [#/Vol] 313 10*3/uL [facility] RBC (Bld) [#/Vol] 4.41 10*6/uL [facility] WBC (Bld) [#/Vol] 9.2 10*3/uL [facility] CBC With Platelet No Differe ntialon 05-04-2022 Hematocrit (Bld) [Volume fraction] 40.4 % Normal 34.0-48.0 [facility] Hemoglobin (Bld) [Mass/Vol] 13.2 g/dL Normal 11.5-15.5 [facility] MCH (RBC) [Entitic mass] 29.9 pg Normal 26.0-35.0 [facility] MCHC 32.7 % Normal 32.0-34.5 [facility] MCV (RBC) [Entitic vol] 91.6 fL Normal 80.0-99.9 [facility] Platelet Count 313 E9/L Normal 130-450 [facility] Platelet mean volume (Bld) [Entitic vol] 9.8 fL Normal 7.0-12.0 [facility] RBC 4.41 E12/L Normal 3.50-5.50 [facility] RDW 13.0 fL Normal 11.5-15.0 [facility] WBC 9.2 E9/L Normal 4.5-11.5 [facility] Cholesterolon 05-04-2022 Cholesterol [Mass/Vol] 162 mg/dL Normal 0-199 [facility] Cholesterol, Totalon 022 Cholesterol [Mass/Vol] 162 mg/dL 0 - 1 99 mg/dL [facility] Comprehensive Metabolic Pane evan 05-04-2022 Albumin [Mass/Vol] 4.1 g/dL Normal 3.5-5.2 [facility] ALP [Catalytic activity/Vol] 64 U/L Normal 35-104 [facility] ALT [Catalytic activity/Vol] 22 U/L Normal 0-32 [facility] Anion gap [Moles/Vol] 10 mmol/L Normal 7-16 [facility] AST [Catalytic activity/Vol] 13 U/L Normal 0-31 [facility] Bilirubin [Mass/Vol] 0.2 mg/dL Normal 0.0-1.2 [facility] Calcium [Mass/Vol] 8.9 mg/dL Normal 8.6-10.2 [facility] Chloride [Moles/Vol] 102 mmol/L Normal 98-107 [facility] CO2 [Moles/Vol] 25 mmol/L Normal 22-29 [facility] Creatinine [Mass/Vol] 0.7 mg/dL Normal 0.5-1.0 [facility] GFR Calculated >60 Normal >=60 [facility] Comment on above: Result Comment: Dion [...] secretion. Glucose [Mass/Vol] 96 mg/dL Normal 74-99 [facility] Potassium [Moles/Vol] 4.5 mmol/L Normal 3.5-5.0 [facility] Protein [Mass/Vol] 6.9 g/dL Normal 6.4-8.3 [facility] Sodium [Moles/Vol] 137 mmol/L Normal 132-146 [facility] Urea nitrogen [Mass/Vol] 17 mg/dL Normal 6-20 [facility] Albumin [Mass/Vol] 4.1 g/dL 3.5 - 5.2 g/dL [facility] ALP (Bld) [Catalytic activity/Vol] 64 U/L 35 - 104 U/L [facility] ALT [Catalytic activity/Vol] 22 U/L 0 - 32 U/L [facility] Anion gap [Moles/Vol] 10 mmol/L 7 - 16 mmol/L [facility] AST [Catalytic activity/Vol] 13 U/L 0 - 31 U/L [facility] [employer] Bilirubin [Mass/Vol] 0.2 mg/dL 0.0 - 1 .2 mg/dL [facility] Calcium [Mass/Vol] 8.9 mg/dL 8.6 - 10. 2 mg/dL [facility] Chloride [Moles/Vol] 102 mmol/L 98 - 10 7 mmol/L [facility] CO2 [Moles/Vol] 25 mmol/L 22 - 29 mmol/L [facility]frontUN[facility] Creatinine [Mass/Vol] 0.7 mg/dL 0.5 - 1.0 mg/dL [facility] GFR/1.73 sq M.predicted MDRD (S/P/Bld) [Vol rate/Area] mL/min/1.73 60 - PINF mL/min/1.73 [facility]ITALChina [employer] [facility] Comment on above: Pediatric calculator link https://www.kidney.org/professionals/kdoqi/gfr_calculatorped [...] [Mass/Vol] 96 mg/dL 74 - 99 mg/dL [facility]ITALWe[facility]frontUN[facility] Potassium [Moles/Vol] 4.5 mmol/L 3.5 - 5.0 mmol/L [facility]ITALWealthfrontUN[facility] Protein [Mass/Vol] 6.9 g/dL 6.4 - 8.3 g/dL [facility]ITALWe[facility]frontUN[facility] Sodium [Moles/Vol] 137 mmol/L 132 - 146 mmol/L [facility] Urea nitrogen (BldV) [Mass/Vol] 17 mg/dL 6 - 20 mg/dL [facility] [employer] Ferritinon 05-04-2022 Ferritin [Mass/Vol] 69 ng/mL Normal [facility] Comment on above: Result Comment: FERR ITIN Reference Ranges: Adult Males 20 - 60 years: 30 - 400 ng/mL Adult females 17 - 60 years: 13 - 150 ng/mL Adults greater than 60 years: no established reference range Pediatrics: no established reference range Folateon 05-04-2022 Folate 8.5 ng/mL Normal 4.8-24.2 [facility] Hgb A1Con 05-04-2022 HbA1c (Bld) [Mass fraction] 5.7 % High 4.0-5.6 [facility] METER GLUCOSEon 05-04-2022 Glucose [Mass/Vol] 93 mg/dL Normal 74-99 [facility] Glucose [Mass/Vol] 96 mg/dL Normal 74-99 [facility] No Panel Informationon 05-04 [employer] Work Phone: POC Urine Qualon 1 07-04-2021 Beta HCG ( test) Ql (U) Negative Negative [employer] Phone: Lot Number [id number] [employer] Phone: Negative QC Pass/Fail Pass [employer] Phone: Positive QC Pass/Fail Pass [employer] Phone: [employer] Phone: POCT Glucoseon 05-04-2022 Glucose [Mass/Vol] 93 mg/dL 74 - 99 mg/dL [facility] [employer] Glucose [Mass/Vol] 96 mg/dL 74 - 99 mg/dL [facility]ITALChina [employer] [facility] HOSPITALMobeon [facility]ITALAereo Prealbuminon 05-04-2022 Prealbumin [Mass/Vol] 24 mg/dL Normal 20-40 [facility] Surgical Specimenon 05-04-20 Surgical Specimen [id number] [place] [id number] FINAL SURGICAL PATHOLOGY REPORT NAME: KYLIE KINGSLEYCIE Date of 05/04/2022 Collection: Medical Record [id number] Date of 05/04/2022 Number: Receipt: Age: 22 Y Sex: F Date 05/11/2022 08:29 Reported: Date Of : 2000 Financial [id number] Admitting DERIC FLORENCE Number: Physician: Patient JHON [...] submitted. Block label: A1. (JORGE L:YAYA) CODES: [id number]; Department of Pathology Page 1 of 1 Normal [facility] Triglycerideon 05-04-2022 Interpretation and review of laboratory results Abnormal [facility] Triglyceride [Mass/Vol] 274 mg/dL High 0 - 149 mg/dL [facility] Triglycerideson 05-04-2022 Triglyceride [Mass/Vol] 274 mg/dL High 0-149 [facility] Vitamin B12on 05-04-2022 Cobalamin (Vitamin B12) [Mass/Vol] 226 pg/mL Normal 211-946 [facility] US GALLBLADDER RUQon 022 US GALLBLADDER [...] Rohit Dowling MD 05/02/22 Final result Normal [facility] Comment on above: Order Comment: Reaso n for exam:->Indigestion What reading provider will be dictating this exam?->CRC CBC Auto DifferentialOrdered By: Win Narvaez on 03-27-2021 Basophils (Bld) [#/Vol] 0.05 10*3/uL [email or web address] Phone: Basophils/100 WBC (Bld) 0.5 % 0.0 - 2.0 % [email or web address] Phone: Eosinophils Absolute 0.37 [employer] Phone: Eosinophils/100 WBC (Bld) 3.8 % 0.0 - 6.0 % [email or web address] Phone: Hematocrit (Bld) [Volume fraction] 39.5 % 34.0 - 48.0 % [email or web address] Phone: Hemoglobin.gastrointes tinal spec 1 Ql (Stl) 12.6 g/dL 11.5 - 15.5 g/dL [email or web address] Phone: Immature Granulocytes # 0.18 E9/L [email or web address] Phone: Immature granulocytes/100 WBC (Bld) 1.8 % 0.0 - 5.0 % [email or web address] Phone: Interpretation and review of laboratory results Abnormal [email or web address] Phone: Lymphocytes Absolute 3.73 [employer] Phone: Lymphocytes/100 WBC (Bld) 38.2 % 20.0 - 42.0 % [email or web address] Phone: MCH (RBC) [Entitic mass] 28.9 pg 26.0 - 35.0 pg [email or web address] Phone: MCHC (RBC) [Mass/Vol] 31.9 % Low 32.0 - 34.5 % [email or web address] Phone: MCV (RBC) [Entitic vol] 90.6 fL 80.0 - 99.9 fL [email or web address] Phone: Monocytes Absolute 0.46 [email or web address] Phone: Monocytes/100 WBC (Bld) 4.7 % 2.0 - 12.0 % [email or web address] Phone: Neutrophils Absolute 4.97 [employer] Phone: Neutrophils/100 WBC (Bld) 51.0 % 43.0 - 80.0 % [email or web address] Phone: Platelet distribution width (Bld) [Ratio] 13.3 fL 11.5 - 15.0 fL [email or web address] Phone: Platelet mean volume (Bld) [Entitic vol] 9.7 fL 7.0 - 12.0 fL [email or web address] Phone: Platelets (Bld) [#/Vol] 281 10*3/uL [email or web address] Phone: RBC (Bld) [#/Vol] 4.36 10*6/uL [email or web address] Phone: WBC (Bld) [#/Vol] 9.8 10*3/uL [email or web address] Phone: Comprehensive Metabolic Pane l w/ Reflex to MGOrdered By: Win Narvaez on 03-27-2021 Albumin [Mass/Vol] 4.2 g/dL 3.5 - 5.2 g/dL [email or web address] Phone: ALP (Bld) [Catalytic activity/Vol] 64 U/L 35 - 104 U/L [email or web address] Phone: ALT [Catalytic activity/Vol] 19 U/L 0 - 32 U/L [email or web address] Phone: Anion gap [Moles/Vol] 12 mmol/L 7 - 16 mmol/L [email or web address] Phone: AST [Catalytic activity/Vol] 14 U/L 0 - 31 U/L [email or web address] Phone: Bilirubin [Mass/Vol] mg/dL 0.0 - 1 .2 mg/dL [email or web address] Phone: Calcium [Mass/Vol] 9.1 mg/dL 8.6 - 10. 2 mg/dL [email or web address] Phone: Chloride [Moles/Vol] 103 mmol/L 98 - 10 7 mmol/L [email or web address] Phone: CO2 [Moles/Vol] 22 mmol/L 22 - 29 mmol/L [email or web address] Phone: Creatinine [Mass/Vol] 0.5 mg/dL 0.5 - 1.0 mg/dL [email or web address] Phone: Free PSA/Total PSA [Mass fraction] 7.1 g/dL 6.4 - 8.3 g/dL [email or web address] Phone: GFR >60 [employer] Phone: GFR Non- >60 >=60 mL/min/1.73 [email or web address] Phone: Comment on above: Chronic Kidney Disea se: less than 60 ml/min/1.73 sq.m. Kidney Failure: less than 15 ml/min/1.73 sq.m. Results valid for patients 18 years and older. Glucose [Mass/Vol] 107 mg/dL High 74 - 99 mg/dL [email or web address] Phone: Interpretation and review of laboratory results Abnormal [email or web address] Phone: Potassium [Moles/Vol] 4.2 mmol/L 3.5 - 5.0 mmol/L [email or web address] Phone: Sodium [Moles/Vol] 137 mmol/L 132 - 146 mmol/L [email or web address] Phone: Urea nitrogen (BldV) [Mass/Vol] 9 mg/dL 6 - 20 mg/dL [email or web address] Phone: [email or web address] Phone: Microscopic UrinalysisOrdere d By: Win Narvaez on 03-27-2021 Bacteria, UA FEW Abnormal None Seen /HPF [email or web address] Phone: Epithelial Cells, UA FEW /HPF [employer] Phone: Interpretation and review of laboratory results Abnormal [email or web address] Phone: RBC, UA 2-5 [email or web address] Phone: WBC, UA 0-1 [email or web address] Phone: [email or web address] Phone: No Panel InformationOrdered By: Win Narvaez on 03-27-2021 [email or web address] Phone: POC Urine QualOrde red By: Win Narvaez on 03-27-2021 Beta HCG ( test) Ql (U) Negative Negative [email or web address] Phone: Beta HCG ( test) Ql (U) [id number] [email or web address] Phone: Negative QC Pass/Fail [employer] Phone: Positive QC Pass/Fail [employer] Phone: US PELVIS COMPLETEOrdered By : Tien Oneal on 03-27-2021 The bilateral ovaries are mildly enlarged, right greater than left. Otherwise, unremarkable pelvic ultrasound. [email or web address] Phone: EXAMINATION: PELVIC ULTRASOUND 03/27/2021 TECHNIQUE: Multiple [...] Free Fluid: No evidence of free fluid. [email or web address] Phone: Antonio, Mhy Incoming Radiant Results From [facility] - 03/27/2021 3:01 PM EDT EXAMINATION: PELVIC [...] greater than left. Otherwise, unremarkable pelvic ultrasound. [email or web address] Phone: [email or web address] Phone: UrinalysisOrdered By: Win Narvaez on 03-27-2021 Bilirubin Urine Negative Negative Student Designed [facility] Work Phone: Blood, Urine LARGE Abnormal Negative [email or web address] Phone: Clarity, UA Clear Clear [employer] Work Phone: Color, UA Yellow Straw/Yellow [email or web address] Phone: Glucose, Ur Negative Negative mg/dL [email or web address] Phone: Interpretation and review of laboratory results Abnormal [email or web address] Phone: Ketones Ql (U) Negative Negative mg/dL [facility] Work Phone: Leukocyte esterase Test strip Ql (U) Negative Negative [facility] Work Phone: Nitrite, Urine Negative Negative [facility] Work Phone: pH, UA 5.0 [facility] Work Phone: Protein, UA TRACE Negative mg/dL [facility] Work Phone: Specific [place], UA >=1.030 [facility] Work Phone: Urobilinogen, Urine 0.2 <2.0 E.U./dL [facility] Work Phone: [facility] Work Phone: NOSE/THROAT CULTUREon 2020 NOSE/THROAT CULTURE RUN DATE: 07/10/20 Laboratory LIVE PAGE 1 RUN TIME: 951 Specimen Inquiry RUN USER: INTERFACE [facility] Department of Laboratories [address] [place] [id number] PATIENT: BATOOL KINGSLEY LOC: CALCLINIC U #: [id number] HOME PHONE: AGE/SX: 20/F ROOM: RE/08/[address]: Ameena Corcoran APRN.CNP : 99 BED: DIS: STATUS: REG REF LAB O/S: Specimen: [id number] Collected: 07/08/20 Status: COMP Req#: [id number] Received: 07/08/20 Source: THROAT Sp Desc: Subm Dr: Ameena Corcoran APRN.CNP Ordered: NOSE/THRT CULT Procedure Result Verified > NOSE/THROAT CULTURE Final 07/10/20 HEAVY GROWTH OF NORMAL ARIN END OF REPORT Normal [facility] Comment on above: Performed By: #### C ULTNT #### [facility] [address] [address] Vital Signs Date Time Vital Sign Value Performing Clinician Facility 06-16-2024 12:54-0500 Body weight 126.55 kg Bryan Manisha DO Work Phone: [facility] 06-16-2024 12:54-0500 Diastolic blood pressure 76 mm[Hg] Bryan Manisha DO Work Phone: [facility] 06-16-2024 12:54-0500 Systolic blood pressure 122 mm[Hg] Bryan Manisha DO Work Phone: [facility] 05-25-2024 14:30-0500 Body weight 123.74 kg Bryan Manisha DO Work Phone: [facility] 05-25-2024 14:30-0500 Diastolic blood pressure 70 mm[Hg] Bryan Manisha DO Work Phone: [facility] 05-25-2024 14:30-0500 Systolic blood pressure 120 mm[Hg] Bryan Manisha DO Work Phone: [facility] 04-21-2024 15:02-0400 Body weight 118.84 kg Bryan Manisha DO Work Phone: [facility] 04-21-2024 15:02-0400 Diastolic blood pressure 74 mm[Hg] Bryan Manisha DO Work Phone: [facility] 04-21-2024 15:02-0400 Systolic blood pressure 116 mm[Hg] Bryan Manisha DO Work Phone: [facility] 04-07-2024 14:38-0400 Body weight 118.3 kg Kierra HUNT Work Phone: [facility] 04-07-2024 14:38-0400 Diastolic blood pressure 70 mm[Hg] Kierra HUNT Work Phone: [facility] 04-07-2024 14:38-0400 Systolic blood pressure 120 mm[Hg] Kierra HUNT Work Phone: [facility] 03-09-2024 13:53-0400 Body weight 113.74 kg Bryan Manisha DO Work Phone: [facility] 03-09-2024 13:53-0400 Diastolic blood pressure 72 mm[Hg] Bryan Manisha DO Work Phone: [facility] 03-09-2024 13:53-0400 Systolic blood pressure 120 mm[Hg] Bryan Manisha DO Work Phone: [facility] 10-30-2022 08:56-0400 SaO2% (BldA) [Mass fraction] 97 % Deric Florence MD Work Phone: [facility] [employer] 10-30-2022 05:00-0400 Body temperature 97.9 [degF] Deric Florence MD Work Phone: [employer] 10-30-2022 05:00-0400 Diastolic blood pressure 74 mm[Hg] Deric Florence MD Work Phone: [employer] 10-30-2022 05:00-0400 Heart rate 74 /min Deric Florence MD Work Phone: [facility] [employer] 10-30-2022 05:00-0400 Respiratory rate 18 /min Deric Florence MD Work Phone: [employer] 10-30-2022 05:00-0400 Systolic blood pressure 126 mm[Hg] Deric Florence MD Work Phone: [employer] 10-29-2022 06:50-0400 Body height 170.2 cm Deric Florence MD Work Phone: [employer] 10-29-2022 06:50-0400 Body mass index (BMI) [Ratio] 55.6 kg/m2 Deric Florence MD Work Phone: [employer] 10-29-2022 06:50-0400 Body weight 161.03 kg Deric Florence MD Work Phone: [facility] [employer] 10-24-2022 12:17-0400 Body height 170.2 cm Sjwz 2 [facility] [employer] [facility] [employer] 10-24-2022 12:17-0400 Body mass index (BMI) [Ratio] 55.44 kg/m2 Sjwz 2 [facility] [employer] [facility] [employer] 10-24-2022 12:17-0400 Body temperature 98.01 [degF] Sjwz 2 [facility] [employer] 10-24-2022 12:17-0400 Body weight 160.57 kg Sjwz 2 [facility] [employer] [facility] [employer] 10-24-2022 12:17-0400 Diastolic blood pressure 62 mm[Hg] Sjwz 2 [facility] [employer] [facility] [employer] 10-24-2022 12:17-0400 Heart rate 77 /min Sjwz 2 [facility] [employer] [facility] [employer] 10-24-2022 12:17-0400 Respiratory rate 16 /min Sjwz 2 [facility] [employer] 10-24-2022 12:17-0400 SaO2% (BldA) [Mass fraction] 95 % Sjwz 2 [facility] [employer] 10-24-2022 12:17-0400 Systolic blood pressure 117 mm[Hg] Sjwz 2 [facility] [employer] 05-04-2022 08:55-0400 Body temperature 98.29 [degF] Deric Florence MD Work Phone: [facility] [employer] 05-04-2022 08:55-0400 Diastolic blood pressure 68 mm[Hg] Deric Florence MD Work Phone: [facility] [employer] 05-04-2022 08:55-0400 Heart rate 83 /min Deric Florence MD Work Phone: [facility] [employer] 05-04-2022 08:55-0400 Respiratory rate 16 /min Deric Florence MD Work Phone: [facility] [employer] 05-04-2022 08:55-0400 SaO2% (BldA) [Mass fraction] 92 % Deric Florence MD Work Phone: [facility] [employer] 05-04-2022 08:55-0400 Systolic blood pressure 128 mm[Hg] Deric Florence MD Work Phone: [employer] 05-04-2022 07:06-0400 Body height 170.2 cm Deric Florence MD Work Phone: [employer] 05-04-2022 07:06-0400 Body mass index (BMI) [Ratio] 61.21 kg/m2 Deric Florence MD Work Phone: [employer] 05-04-2022 07:06-0400 Body weight 177.27 kg Deric Florence MD Work Phone: [employer] 03-27-2021 20:08-0400 Heart rate 95 /min Tien Oneal DO Work Phone: [employer] Work Phone: 03-27-2021 13:47-0400 Body height 170.2 cm Tien Oneal DO Work Phone: [employer] Work Phone: 03-27-2021 13:47-0400 Body mass index (BMI) [Ratio] 54.82 kg/m2 Tien Oneal DO Work Phone: [employer] Work Phone: 03-27-2021 13:47-0400 Body temperature 97.11 [degF] Tien Oneal DO Work Phone: [employer] Work Phone: 03-27-2021 13:47-0400 Body weight 158.76 kg Tien Oneal DO Work Phone: [employer] Work Phone: 03-27-2021 13:47-0400 Diastolic blood pressure 80 mm[Hg] Tien Oneal DO Work Phone: [employer] Work Phone: 03-27-2021 13:47-0400 Respiratory rate 16 /min Tien Baulesh DO Work Phone: [email or web address] Phone: 03-27-2021 13:47-0400 SaO2% (BldA) [Mass fraction] 98 % Tien Oneal DO Work Phone: [email or web address] Phone: 03-27-2021 13:47-0400 Systolic blood pressure 173 mm[Hg] Tien Oneal DO Work Phone: [email or web address] Phone: Encounters Encounter Date Encounter Type Care [...] Bamboo flowsheet Bryan Manisha DO Work Phone: [facility] Start: 06-10-2024 End: 06-13-2024 Bamboo flowsheet Bryan Manisha DO Work Phone: [facility] Start: 06-10-2024 End: 06-13-2024 Clinisync Result Encounter Bryan Manisha DO Work Phone: [facility] External Department Unsolicited Start: 06-10-2024 End: 06-10-2024 Office outpatient visit 15 minutes Bryan Manisha DO Work Phone: [facility] Comment on above: Third trimester preg agatha; 36 weeks gestation of ; Non-compliant patient, third trimester; History of gastric bypass; Gestational diabetes mellitus (GDM), antepartum, gestational diabetes method of control unspecified Start: 06-10-2024 End: 06-10-2024 ambulatory BRYAN MANISHA Not Available Start: 05-25-2024 End: 05-25-2024 Bamboo flowsheet Bryan Manisha DO Work Phone: [facility] Start: 05-25-2024 End: 05-25-2024 Bamboo flowsheet Bryan Manisha DO Work Phone: [facility] Start: 05-25-2024 End: 05-25-2024 Office outpatient visit 15 minutes Bryan Manisha DO Work Phone: [facility] Comment on above: 34 weeks gestation o f ; Third trimester ; Insomnia, unspecified type; History of gastric bypass; Gestational diabetes mellitus (GDM), antepartum, gestational diabetes method of control unspecified Start: 05-25-2024 End: 05-25-2024 ambulatory BRYAN MANISHA Not Available Start: 05-06-2024 End: 05-06-2024 Office outpatient visit 15 minutes Kierra HUNT Work Phone: [facility] Comment on above: Third trimester preg agatha; 31 weeks gestation of ; Anxiety, generalized (CMS/HCC); Sinusitis, unspecified chronicity, unspecified location Start: 05-06-2024 End: 05-06-2024 ambulatory KIERRA SHERWOOD Not Available Start: 05-06-2024 End: 05-06-2024 Bamboo flowsheet Kierra HUNT Work Phone: [facility] Start: 05-06-2024 End: 05-06-2024 Bamboo flowsheet Kierra HUNT Work Phone: [facility] Start: 04-21-2024 End: 04-21-2024 Office outpatient visit 15 minutes Bryan Manisha DO Work Phone: [facility] Comment on above: Third trimester preg agatha; 29 weeks gestation of ; Anemia during in third trimester; Elevated glucose tolerance test; Abnormal thyroid stimulating hormone (TSH) level Start: 04-21-2024 End: 04-21-2024 ambulatory BRYAN MANISHA Not Available Start: 04-21-2024 End: 04-21-2024 Bamboo flowsheet Bryan Manisha DO Work Phone: [facility] Start: 04-21-2024 End: 04-21-2024 Bamboo flowsheet Bryan Manisha DO Work Phone: [facility] Start: 04-21-2024 End: 04-21-2024 Clinisync Result Encounter Bryan Manisha DO Work Phone: [facility] External Department Unsolicited Start: 04-07-2024 End: 04-07-2024 Office outpatient visit 15 minutes Kierra HUNT Work Phone: [facility] Comment on above: 27 weeks gestation o f ; Second trimester ; Gestational diabetes mellitus (GDM), antepartum, gestational diabetes method of control unspecified; Anemia affecting in second trimester Start: 04-07-2024 End: 04-07-2024 ambulatory KIERRA SHERWOOD Not Available Start: 04-07-2024 End: 04-07-2024 Bamboo flowsheet Kierra HUNT Work Phone: [facility] Start: 04-07-2024 End: 04-07-2024 Bamboo flowsheet Kierra Evelyn PA Work Phone: [facility] Start: 03-17-2024 End: 03-17-2024 ambulatory KENDRA Gudelia KATHERINE [facility] Start: 03-09-2024 End: 03-09-2024 Office outpatient [...] Result Encounter Bryan Manisha DO Work Phone: [facility] External Department Unsolicited Start: 03-09-2024 End: 03-09-2024 ambulatory BRYAN MANISHA Not Available Start: 02-17-2024 End: 02-17-2024 ambulatory BRYAN R MANISHA [facility] Start: 02-10-2024 End: 02-10-2024 ambulatory BRYAN MANISHA Not Available Start: 01-07-2024 End: 01-07-2024 ambulatory BRYAN MANISHA Not Available Start: 12-12-2023 End: 12-12-2023 ambulatory BRYAN MANISHA Not Available Start: 11-10-2023 End: 11-10-2023 Emergency department patient visit NO PCP NO PCP [facility] Start: 08-14-2023 End: 08-14-2023 Emergency department patient visit TRAVIS VALLEJO [facility] Start: 12-14-2022 ambulatory KAELA GILLIAN Facility:[facility] Start: 12-03-2022 ambulatory KAELA GILLIAN Facility:[facility] Start: 11-06-2022 ambulatory KAELA GILLIAN Facility:[facility] Start: 10-29-2022 End: 10-30-2022 Evaluation and management of inpatient KAELA GILLIAN [facility] Start: 10-29-2022 End: 10-30-2022 Evaluation and management of inpatient Deric Florence MD Work Phone: [facility] MED SURG Comment on above: Post-operative state (Primary Dx); Morbid obesity (HCC) Start: 10-24-2022 End: 10-25-2022 ambulatory [facility] Start: 10-24-2022 Encounter for other preprocedural examination [facility] Start: 10-24-2022 End: 10-24-2022 Patient encounter status Sjwz 2 [facility] PRE ADMIT TESTING Start: 10-24-2022 End: 10-24-2022 Subsequent hospital visit by physician Hans Pat Room 2 [facility] PRE ADMIT TESTING Comment on above: Preop testing (Prima ry Dx); Malnutrition following gastrointestinal surgery Start: 10-04-2022 [facility] Facility:[facility] Start: 08-13-2022 ambulatory [facility] Facility:[facility] Start: 07-31-2022 [facility] Facility:[facility] Start: 07-13-2022 [facility] Facility:[facility] Start: 06-14-2022 [facility] Facility:[facility] Start: 05-04-2022 End: 05-04-2022 [facility] Start: 05-04-2022 End: 05-04-2022 Subsequent hospital visit by physician Deric Florence MD Work Phone: [facility] Comment on above: Morbid obesity due t o excess calories (HCC); Gastroesophageal reflux disease Start: 05-02-2022 End: 05-05-2022 ambulatory DERIC FLORENCE [facility] Start: 03-27-2021 End: 03-27-2021 Emergency department patient visit Tien Oneal DO Work Phone: [facility] Emergency Department Comment on above: DUB [...] Basic metabolic panel calcium total Yang Hsu TESTING DIRECTOR - ATOMIC WELDER Work Phone: Start: 10-30-2022 Lipid panel Yang Ferguson TESTING DIRECTOR - ATOMIC WELDER Work Phone: Start: 10-30-2022 Gluc bld gluc [...] Start: 10-29-2022 Hemoglobin glycosylated a1c Yang Hsu TESTING DIRECTOR - ATOMIC WELDER Work Phone: Start: 10-29-2022 Gluc bld gluc mntr d ev cleared fda spec home use Unknown Provider Result Start: 10-29-2022 ADMIT TO INPATIENT KAELA GILLIAN Start: 10-29-2022 Level iv surg pathol ogy gross&microscopic exam KAELA GILLIAN Start: 10-29-2022 Gluc bld gluc mntr d ev cleared fda spec home use KAELA GILLIAN Start: 10-29-2022 IP CONSULT TO IV TEAM S ISBAELL GILLIAN Start: 10-29-2022 FULL CODE KAELA GILLIAN [...] AM EST Visit [facility] [address] [address] Bryan Dyer, DO [address] [place], [place] [id number] [facility] Start: 06-16-2024 End: 06-16-2024 [...] Ancillary Procedure [facility] [address] [id number] [facility] Start: 04-21-2024 End: 04-21-2024 Patient encounter procedure 04/21/2024 2:30 PM EDT Routine [facility] [address] [facility] [facility] [id number] Bryan Dyer DO [address] [place] [address] Arrived [facility] Comment on above: [...] second trimester Expected: 04/07/2024 (Approximate), Expires: 04/07/2025 [facility] Healthcare Work Phone: Comment on above: Expected: 04/07/2024 (Approximate), Expi res: 04/07/2025 Start: 03-09-2024 End: 03-09-2024 Patient encounter procedure 03/09/2024 2:10 PM EDT Routine [facility] [address] [address] Bryan Dyer, DO [address] [place] [address] Arrived [facility] Comment on above: Arrived Start: 03-09-2024 End: 03-09-2025 CBC panel - Blood by Automated count CBC Lab Routine Diabetes mellitus screening Expected: 03/09/2024 (Approximate), Expires: 03/09/2025 [facility] Healthcare Work Phone: Comment on above: Expected: 03/09/2024 (Approximate), Expi res: 03/09/2025 Start: 03-09-2024 End: 03-09-2025 Measurement of glucose 1 hour after glucose challenge for glucose tolerance test Glucose tolerance, 1 hour Lab Routine Diabetes mellitus screening Expected: 03/09/2024 (Approximate), Expires: 03/09/2025 [facility] Healthcare Comment on above: Expected: 03/09/2024 (Approximate), Expi res: 03/09/2025 Start: 10-31-2023 GFR test (Diabetes, CKD 3-4, OR last GFR 15-59) GFR test (Diabetes, CKD 3-4, OR last GFR 15-59) [facility] Start: 10-31-2023 Lipid panel Lipids [facility] Start: 10-30-2023 Hemoglobin A1c measurement A1C test (Diabetic or Prediabetic) [facility] Start: 10-25-2023 GFR test (Diabetes, CKD 3-4, OR last GFR 15-59) GFR test (Diabetes, CKD 3-4, OR last GFR 15-59) [facility] Start: 11-04-2023 Hemoglobin A1c measurement A1C test (Diabetic or Prediabetic) [facility] Start: 05-04-2023 Lipid panel Lipids [facility] Start: 01-29-2023 Influenza vaccination Flu vaccine (Season Ended) [facility] Start: 11-14-2022 End: 11-14-2022 Patient encounter procedure 11/14/2022 Office Visit Bariatrics Deric Florence MD [address] [place] [address] [facility] Surg Weight Start: 10-29-2022 End: 10-29-2022 Admission to same day surgery center 10/29/2022 Surgery IP Unit Deric Florence MD [address] [place] [address] GASTRIC BYPASS NUNO-EN-Y LAPAROSCOPICNEEDS IV TEAM HANS OR Comment on above: GASTRIC BYPASS NUNO-EN-Y LAPAROSCOPICN EEDS IV TEAM Start: 10-29-2022 End: 10-29-2022 Laps gstr rstcv px w/byp nuno-en-y limb <150 cm GASTRIC BYPASS NUNO-EN-Y LAPAROSCOPIC Morbid obesity (HCC) 10/29/2022 9:00 AM T [facility] Start: 10-29-2022 Subsequent hospital visit by physician 10/29/2022 Hospital Encounter IP Unit Deric Florence MD [address] [place] [address] [facility] Start: 05-11-2022 End: 05-11-2022 Patient encounter procedure [facility] Surg Weight Start: 05-04-2022 End: 05-04-2022 Egd transoral biopsy single/multiple EGD ESOPHAGOGASTRODUODENOSCOPY Gastroesophageal reflux disease 05/04/2022 8:18 AM EDT [facility] Start: 01-29-2022 Influenza vaccination Flu vaccine (#1) [facility] Start: 03-01-2021 Influenza vaccination Flu vaccine (#1) [email or web address] Phone: Start: 01-22-2020 Screening for malignant neoplasm of cervix Pap smear [facility] Start: 09-23-2019 Hepatitis B vaccine (3 of 3 - Risk 3-dose series) Hepatitis B vaccine (3 of 3 - Risk 3-dose series) [facility] Start: 2018 DTaP/Tdap/Td vaccine (1 - Tdap) DTaP/Tdap/Td vaccine (1 - Tdap) [facility] Start: 2017 Glaucoma screening Diabetic retinal exam [facility] Start: 2017 Hepatitis C screening Hepatitis C screen [facility] Start: 2017 Urine screening for protein Diabetic Alb to Cr ratio (uACR) test [facility] Start: 2015 Screening for Chlamydia trachomatis [facility] Start: 2014 HIV screening HIV screen [facility] Start: 2011 COVID-19 Vaccine (1) COVID-19 Vaccine (1) [email or web address] Phone: Start: 2011 Depression Monitoring Depression Monitoring [facility] Start: 2011 Depression Screen Depression Screen [facility] Start: 2010 HPV vaccine (1 - 2-dose series) HPV vaccine (1 - 2-dose series) [facility] Start: 2009 Diabetic foot examination Diabetic foot exam [facility] Start: 2005 Pneumococcal 0-64 years Vaccine (1 - PCV) Pneumococcal 0-64 years Vaccine (1 - PCV) [facility] Start: 01-22-2000 Varicella vaccine (1 of 2 - 2-dose childhood series) Varicella vaccine (1 of 2 - 2-dose childhood series) [facility] Start: 1999 COVID-19 Vaccine (#1) COVID-19 Vaccine (#1) [facility] Start: 1999 Hepatitis C screening Hepatitis C screen [email or web address] Phone: End: 10-29-2023 Basic metabolic 2000 panel - Serum or Plasma Basic Metabolic Panel Lab Routine Daily for 365 Days starting 10/30/2022 until 10/29/2023, 1 completed [employer] Phone: Comment on above: Daily for 365 Days starting 10/30/2022 u ntil 10/29/2023, 1 completed End: 10-29-2023 CBC W Auto Differential panel - Blood CBC with Auto Differential Lab Routine Daily for 365 Days starting 10/30/2022 until 10/29/2023, 1 completed [employer] Phone: Comment on above: Daily for 365 Days starting 10/30/2022 u ntil 10/29/2023, 1 completed CBC W Auto Differential panel - Blood CBC and differential Lab Routine Anemia during in third trimester [facility]dered: [facility]/21/2024 [facility]: Comment on above: Ordered: 04/21/2024 End: 03-27-2021 Culture, Urine Culture, Urine Microbiology Routine One Time for 1 Occurrences starting 03/27/2021 until 03/27/2021 [email or web address] Phone: Comment on above: One Time for 1 Occurrences starting 03/02 until 03/27/2021 End: 05-04-2022 Cyanocobalamin vitamin b-12 [employer] Phone: Comment on above: 1 Occurrences starting 05/04/2022 until 05/04/2022 End: 05-04-2022 Ferritin [Mass/volume] in Serum or Plasma [employer] Phone: Comment on above: 1 Occurrences starting 05/04/2022 until 05/04/2022 End: 05-04-2022 Folate [employer] Phone: Comment on above: 1 Occurrences starting 05/04/2022 until 05/04/2022 Glucose [Mass/volume ] in Serum or Plasma [employer] Phone: Comment on above: 4X Daily (AC & HS) until discontinued st arting 10/29/2022 As Needed until disc ontinued starting 10/29/2022 End: 05-04-2022 Hemoglobin A1c/Hemoglobin.total in Blood [employer] Phone: Comment on above: 1 Occurrences starting 05/04/2022 until 05/04/2022 End: 10-30-2022 Hemoglobin A1c/Hemoglobin.total in Blood Hemoglobin A1C Lab Routine Tomorrow AM for 1 Occurrences starting 10/30/2022 until 10/30/2022 [employer] Phone: Comment on above: Tomorrow AM for 1 Occurrences starting 0 10/30/2022 until 10/30/2022 Hemoglobin A1c/Hemoglobin.total in Blood Hemoglobin A1C Lab Routine 10/30/2022 4:51 AM EDT [employer] Phone: End: 10-29-2023 Hepatic function 2000 panel - Serum or Plasma Hepatic Function Panel Lab Routine Daily for 365 Days starting 10/30/2022 until 10/29/2023, 1 completed [employer] Phone: Comment on above: Daily for 365 Days starting 10/30/2022 u ntil 10/29/2023, 1 completed End: 10-29-2023 Magnesium [Mass/volume] in Serum or Plasma Magnesium Lab Routine Daily for 365 Days starting 10/30/2022 until 10/29/2023, 1 completed [employer] Phone: Comment on above: Daily for 365 Days starting 10/30/2022 u ntil 10/29/2023, 1 completed Nasal Cannula Oxygen Nasal Cannu la Oxygen Respiratory Care Routine Daily until discontinued starting 10/30/2022 [employer] Phone: Comment on above: Daily until discontinued starting 2022 Oxygen therapy [Minimum Data Set] Initiate Oxygen Therapy Protocol Respiratory Care Routine As Needed until discontinued starting 10/29/2022 [employer] Phone: Comment on above: As Needed until discontinued starting End: 10-29-2023 Phosphate [Mass/volume] in Serum or Plasma Phosphorus Lab Routine Daily for 365 Days starting 10/30/2022 until 10/29/2023, 1 completed [employer] Phone: Comment on above: Daily for 365 Days starting 10/30/2022 u ntil 10/29/2023, 1 completed End: 05-04-2022 Prealbumin [Mass/volume] in Serum or Plasma [employer] Phone: Comment on above: 1 Occurrences starting 05/04/2022 until 05/04/2022 End: 10-29-2022 Spirometry panel [employer] Phone: Comment on above: Continuous until discontinued starting 0 10/29/2022 Every 2hr while awak e until discontinued starting 10/29/2022 Surgical Pathology Surgical Path ology Lab Routine Gastroesophageal reflux disease Release Upon Ordering for 1 Occurrences starting 05/04/2022 [employer] Phone: Comment on above: Release Upon Ordering for 1 Occurrences starting 05/04/2022 Surgical Pathology Surgical Path ology Lab Routine Morbid obesity (HCC) Release Upon Ordering for 1 Occurrences starting 10/29/2022 [employer] Phone: Comment on above: Release Upon Ordering for 1 Occurrences starting 10/29/2022 End: 05-04-2022 Vitamin B1 Vitamin B1 Lab Routine Morbi d obesity due to excess calories (HCC) 1 Occurrences starting 05/04/2022 until 05/04/2022 [employer] Phone: Comment on above: 1 Occurrences starting 05/04/2022 until 05/04/2022 End: 05-04-2022 Zinc Zinc Lab Routine Morbid obes ity due to excess calories (HCC) 1 Occurrences starting 05/04/2022 until 05/04/2022 [employer] Phone: Comment on above: 1 Occurrences starting 05/04/2022 until 05/04/2022 Immunizations Immunization Date Immunization Notes Care Provider Lito enriquez 04-26-2021 tuberculin skin test ; purified protein derivative solution, intradermal [facility] 2 [employer] Phone: 05-25-2019 hepatitis B vaccine, adult dosage [facility] 2 [employer] Phone: 04-01-2019 hepatitis B vaccine, adult dosage [facility] 2 [employer] Phone: 04-01-2019 meningococcal B vacc ine, recombinant, OMV, adjuvanted [facility] 2 [employer] Phone: 04-01-2019 tuberculin skin test ; purified protein derivative solution, intradermal [facility] 2 [employer] Phone: Payers Date Payer Category Payer Medicaid [employer] [place] [id number] 2023-Present [address] [place], [place] [address] [id number] 2023 Private Health Insurance [employer] [id number] 2020 Private Health Insurance [id number] 2020 Private Health Insurance [id number] 1999 Unknown [id number] 204 1999 Unknown [id number] 204 1999 Unknown [id number] 204 1999 Unknown [id number] 204 1999 Unknown [id number] 128 1999 Unknown [id number] 1999 Unknown [id number] 1999 Unknown [id number] 1999 Unknown [id number] 2.16.840.1.573901.3.579.2. 1285 1999 Unknown [id number] 2.16.840.1.214621.3.579.2. 1258 1999 Unknown [id number] 2.16.840.1.524666.3.579.2. 1258 1999 Unknown [id number] 2.16840.1.665562.3.579.2. 1258 1999 Unknown [id number] 2.16.840.1.455520.3.579.2. 1258 1999 Unknown [id number] 2.16.840.1.329541.3.579.2. 1258 1999 Unknown [id number] 2.16.840.1.842524.3.579.2. 1258 1999 Unknown [id number] 2.16.840.1.788351.3.579.2. 1258 1999 Unknown [id number] 2.16.840.1.461702.3.579.2. 1259 1999 Unknown [id number] 2.16.840.1.410560.3.579.2. 1259 1999 Unknown [id number] 2.16.840.1.263962.3.579.2. 1259 Unknown [id number] 2.16.840.1.946089.3.579.2. 212 Unknown [id number] 2.16.840.1.153197.3.579.2. 212 Unknown [id number] 2.16.840.1.258667.3.579.2. 212 Unknown [id number] 2.16.840.1.913861.3.579.2. 212 Unknown [id number] 2.16.840.1.940963.3.579.2. 212 Unknown [id number] 2.16.840.1.334799.3.579.2. 212 Unknown [id number] 2.16.840.1.832252.3.579.2. 212 Unknown [id number] 2.16.840.1.346669.3.579.2. 212 Unknown [id number] 2.16.840.1.943115.3.579.2. 212 Social History Date Type Detail Facility Tobacco smoking stat [facility] Unknown if ever smoked [email or web address] Phone: Start: 2000 Sex Assigned At Not on file [employer] Phone: Start: 04-23-2022 End: 05-03-2022 Exposure to SARS-CoV-2 (event) Not sure [employer] Start: 05-03-2022 End: 10-24-2022 Tobacco smoking status INIS Ex-smoker [employer] Phone: End: 12-29-2021 History of tobacco use Current smoker [employer] Phone: End: 12-29-2021 History of tobacco use Cigarette Smoker [employer] Phone: Start: 05-03-2022 End: 12-12-2023 Tobacco use and exposure Smokeless tobacco non-user [employer] Phone: Start: 05-04-2022 End: 10-30-2022 Alcohol intake Current drinker of alcohol (finding) [employer] Phone: Start: 05-03-2022 Tobacco Comment Quit 12/2021 FLORIDALMA [employer] Phone: Start: 05-03-2022 Alcohol Comment occ [employer] Phone: Start: 10-29-2022 History SDOH Alcohol Frequency 1 [employer] Phone: Start: 12-12-2023 Tobacco smoking stat [facility] Never smoked tobacco [facility] Start: 03-09-2024 End: 06-10-2024 Alcoholic beverage intake Ex-drinker (finding) [facility] Start: 12-12-2023 End: 03-09-2024 Alcoholic beverage intake [facility] Start: 12-12-2023 Tobacco use panel [facility] Start: 10-13-2023 [facility] Equipment Procedure Code Equipment Code Equipment Origin al Text Equipment Identifier Dates 1 strip by In Vi tro route Daily Use in the morning prior to breakfast, 1 hour after each meal for a total of 4times daily. [id number] Start: 02-19-2024 End: 03-20-2024 1 each by In Vit ro route Daily Use to check FSBS four times daily [id number] Start: 02-19-2024 End: 03-20-2024 Clinical Notes 05-04-2022 [...] nursing note reviewed. Exam conducted with a insulation cupola operator present. Vitals: There is no height or [...] @ 37.4 weeks gestation. Paperwork faxed to [facility] and nursing spoke with Marion @[facility] to confirm IOL Follow Up: Patient is to return to office in 1 week for routine OB appointment. Documented by Mary Zhao LPN on behalf of: Bryan Dyer DO documented in this encounter [facility] 06-10-2024 History of Present illness Narrative [...] nursing note reviewed. Exam conducted with a insulation cupola operator present. Vitals: There is no height or [...] Bryan Dyer DO documented in this encounter [facility] 05-25-2024 History of Present illness Narrative [...] nursing note reviewed. Exam conducted with a insulation cupola operator present. Vitals: There is no height or [...] scheduled starting this week. Order faxed to [facility] Scheduling and [facility]. Gave patient handouts for [employer]. Patient to return to clinic in 2 weeks for routine OB appointment. Patient will have GBS done at that time. Documented by Mary Zhao LPN on behalf of: Bryan Dyer DO documented in this encounter [facility] 11-06-2024 History of Present illness Narrative [...] of: MARILEE Espinosa documented in this encounter [facility] 04-21-2024 History of Present illness Narrative [...] nursing note reviewed. Exam conducted with a insulation cupola operator present. Vitals: There is no height or [...] Bryan Dyer DO documented in this encounter [facility] 04-07-2024 History of Present illness Narrative [...] nursing note reviewed. Exam conducted with a insulation cupola operator present. Vitals: There is no height or [...] of: MARILEE Espinosa documented in this encounter [facility] 03-09-2024 History of Present illness Narrative [...] nursing note reviewed. Exam conducted with a insulation cupola operator present. Vitals: There is no height or [...] Bryan Dyer DO documented in this encounter [facility] 10-30-2022 Hospital Discharge instructions Lashawn Ordoñez RN - 10/30/2022 6:49 AM EDT Your information: Name: Batool Kingsley : 2000 Dr. Florence's Discharge Instructions for Bariatric Surgery [facility] Discharge Instructions [...] blood sugars as ordered by PCP or Lay Out Inspector. Follow up with PCP or Lay Out Inspector regarding diabetic medications. Make sure you take any medicines you were on for depression or anxiety. FOLLOW-UP Follow-up appointment with surgeon 10-14 days after surgery. Complete lab work prior to this appointment. Follow-up with PCP and/or Lay Out Inspector prior to seeing surgeon. CALL [facility] [phone] IF ANY OF THE FOLLOWING OCCURS TO [...] Weapons (Notify Protective Services/Security): None Other Valuables: [employer], [employer] Home Medications: None Valuables Given To: [...] through Care Everywhere.Gastric Bypass Surgery: Nuno-en-Y: Post-op (Sierra Leonean)documented in this encounter [employer] Work Phone: 10-30-2022 Hospital course Narrative Physician Discharge Summary Batool Kingsley [id number] Admit date: 10/29/2022 Discharge date and time: [...] Your Medications These medications were sent to [address] [phone] - [phone] [place] [address] traMADol 50 MG tablet Activity: no lifting, [...] 10/30/2022 6:48 AM documented in this encounter [facility] Close Phone: 10-30-2022 History of Present illness Narrative Internal Medicine Progress Note NATHALIE=[facility] Shanta Hernandez D.O., F.A.C.O.I. Shabana OconnorO., F.A.C.O.I. Juliocesar Werner D.O. Francine Kilpatrick, MSN, TESTING DIRECTOR, REAL ESTATE PARALEGAL-C Yang Hsu, MSN, TESTING DIRECTOR-ATOMIC WELDER Primary Care Physician: KAELA FRENCH APRN - ATOMIC WELDER Admitting Physician: Deric Florence MD Admission date and time: 10/29/2022 6:02 AM Room: [address] [place] [address] Admitting diagnosis: Morbid obesity (HCC) [E66.01] Post-operative [...] reflux disease with possible hiatal hernia repair Flq-dmbqezb-spcfcwnzp diabetes mellitus type 2 Anxiety Plan: Batool [...] 6:37 AM documented in this encounter [facility] Work Phone: 10-24-2022 History of Present illness Narrative Images from the original note were not included. [facility] PRE OP INSTRUCTIONS FOR Batool [...] makeup (including no eye makeup) or nail angolan on your fingers or toes. DO NOT wear any jewelry or piercings on day of surgery. All body piercing jewelry must be removed. Shower the night before surgery with _x__Antibacterial soap /CHG WIPES___x If you have a Living Will and Durable Power of Undercoater for Healthcare, please bring in a copy. [...] and go to information desk Please call SPIRAL WINDING MACHINE HELPER if you have any further questions. Pre Admit Testing [phone] [facility] [phone] documented in this encounter [employer] Work Phone: 05-04-2022 Hospital Discharge instructions Ashlie [...] the day after the test, use an hplm-gzt-fwjpehv spray to numb your throat. Follow-up care [...] Where can you learn more? Go to [email or web address] and sign in to your [employer] account. Enter J454 in the Search Health Information box to learn more about Upper GI Endoscopy: What to Expect at Home. If you do not have an account, please click on the Sign Up Now link. Current as of: December 04, 2021 Content Version: 13.4 [employer] Care instructions adapted under license by [employer]. If you have questions about a medical condition or this instruction, always ask your healthcare professional. [employer] disclaims any warranty or liability for your use of this information. documented in this encounter [facility] LEON[facility] [employer] Work Phone: 05-04-2022 History of Present illness Narrative SBAR form completed and placed on chart. Chart with patient in transit. Images from the original note were not included. [facility] PRE OP INSTRUCTIONS FOR Batool [...] makeup (including no eye makeup) or nail angolan on your fingers or toes. DO NOT wear any jewelry or piercings on day of surgery. All body piercing jewelry must be removed. Shower the night before surgery with _x__Antibacterial soap /ALEXANDER WIPES TOTAL JOINT REPLACEMENT/HYSTERECTOMY PATIENTS ONLY---Remember to bring Blood Bank bracelet to the hospital on the day of surgery. If you have a Living Will and Durable Power of Undercoater for Healthcare, please bring in a copy. [...] safety of all patients. Other Please call SPIRAL WINDING MACHINE HELPER if you have any further questions. Pre Admit Testing [phone] [facility] [phone] documented in this encounter FLORIDALMA GIPSON [employer] Phone: Evaluation note Diagnosis DUB (dysfunctional uterine bleeding)- Primary Other disorder of menstruation and other abnormal bleeding from female genital tract documented in this encounter [email or web address] Phone: evaluation note* Diagnosis Gastroesophageal reflux disease- Primary Esophageal reflux Morbid obesity due to excess calories (HCC) documented in this encounter [employer] Phone: evaluation note* Diagnosis Morbid obesity (HCC)- Primary Morbid obesity Preop testing- Primary Preoperative examination, unspecified 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 * AUB (Abnormal Uterine Bleeding) (Sierra Leonean) [facility] Work Phone: Summary Purpose Family History No [...] and content) DATE CREATED AUTHOR 07/16/2020 [facility] DATE CREATED AUTHOR AUTHOR'S ORGANIZ ATION 05/05/2022 [facility] DATE CREATED AUTHOR AUTHOR'S ORGANIZ ATION 02/07/2023 [facility] DATE CREATED AUTHOR AUTHOR'S ORGANIZ ATION 06/04/2023 [facility] DATE CREATED AUTHOR AUTHOR'S ORGANIZ ATION 02/19/2024 [facility] DATE CREATED AUTHOR AUTHOR'S ORGANIZ ATION 03/19/2024 [facility] DATE CREATED AUTHOR AUTHOR'S ORGANIZ ATION 06/19/2024 [facility] dical Specialists EPIC Reason for Visit (unrecogniz ed section and content) Reason Comments Vaginal Bleeding 4 pad per hour, larg e clots present Specialty Diagnoses / Procedures Referred By Geronimo t Referred To Contact Diagnoses Gastroesophageal reflux disease Gastroesophageal reflux disease [K21.9] Procedures ME EGD TRANSORAL BIOPSY SINGLE/MULTIPLE ME EGD TRANSORAL BIOPSY SINGLE/MULTIPLE ME ESOPHAGOGASTRODUODENOSCOPY TRANSORAL DIAGNOSTIC ME EGD BALLOON DILATION ESOPHAGUS <30 MM DIAM EGD ESOPHAGOGASTRODUODENOSCOPY Deric Florence MD [address] [place] [address] [place] [id number] [facility] [address] [place] [address] Referral ID Status Reason Start Date Expiration Date Visits Re quested Visits Authorized [id number] 1 1 Specialty Diagnoses / Procedures Referred By Geronimo t Referred To Contact Diagnoses Morbid obesity (HCC) Morbid obesity (HCC) [E66.01] Procedures ME LAPS GSTR RSTCV PX W/BYP NUNO-EN-Y LIMB <150 CM GASTRIC BYPASS NUNO-EN-Y LAPAROSCOPIC Deric Florence MD [address] [place] [address] [facility] [address] [place] [address] Referral ID Status Reason Start Date Expiration Date Visits Re quested Visits Authorized [id number] 1 1 Reason Comments Routine Visit Continuous [...] 100 mL IVPB (COMPLETED) 3,000 mg, IntraVENous, EDUCATION AND TRAINING MANAGER TO O.R., 1 dose, On Sat10/29/22 at 0715, Antimicrobial Indications: Surgical Prophylaxis, Administer within 1 hour prior to incision. Repeat in 3-4 hours after initial dose if still intra-op., Pre-op (day of surgery) 0844 (Given - Provider: Maggie Avila APRN - SILK SCREEN PRINTER MACHINE) insulin lispro (HUMALOG) injection vial 0-4 Units [...] of order., Post-op bupivacaine-EPINEPHrine PF (MARCAINE-w/EPINEPHrine) 0.25% -[id number] injection (CANCELED) PRN, Starting on Sat10/29/22 at [...]
Care Teams (unrecognized sec tion and content) Coroner Forensic Technician Relationship Specialty Start Date End Date [facility], TESTING DIRECTOR ATOMIC WELDER [id number] [place] [address] PCP - General Certified Nurse Practitioner 04/27/22 Coroner Forensic Technician Relationship Specialty Start Date End Date [facility], TESTING DIRECTOR - ATOMIC WELDER [id number] [place] [address] PCP - General Certified Nurse Practitioner 09/14/22 Coroner Forensic Technician Relationship Specialty Start Date End Date [facility], TESTING DIRECTOR - [facility] [id number] [facility] [place] [phone] PCP - General Certified Nurse Practitioner 09/14/22 [...] BE BASED ON THE PRIMARY CLINICAL RECORDS. [facility]. provides no warranty or guarantee of the accuracy or completeness of information in this document.
--- NOTE | 2024-06-27 15:08 | PC.NURSE ---
pt had a [address] Dyer -- drainage started yesterday. yellow in color. foul odor. wound cx obtained
--- NOTE | 2024-06-27 16:09 | PC.NURSE ---
assisted DOUGLAS Vital, with bedside I/D of wound.
--- NOTE | 2024-06-27 16:28 | PM.OBCN1 ---
OB - CN: HPI Data of Consult Patient: known to practice within the last 3 years Consult date: 06/27/24 Requesting Physician: emergency room attending Primary Care Provider: Non-Staff Physician, MD Dr. Dyer 1ST PRESSMAN Consult Narrative Reason for consult: other (postop LTCS wound drainage, probable seroma) cc:: CC: patient came to ED complaining of large amount of drainage from CS incision done on Jun 18. No nausea no vomiting, no fever. Had gone to [facility] ED firse where CT scan showed possible seroma. As I dont have priviledges at [facility], directed MD to send patient to [place]. Is bottle feeding. History of Present Medical complications: none Review of Systems ROS Status of ROS 10 or more systems reviewed and unremarkable except as noted in history and below [facility] Medical History (Updated 06/27/24 @ 16:41 by Jessica Fox MD) History of PCOS ?Z87.42 - Personal history of other diseases of the female genital tract (ICD-10) Previous gastric bypass affecting in third trimester, antepartum ?O99.843 - Bariatric surgery status complicating , third trimester (ICD-10) Family History (Updated 06/18/24 @ 06:45 by Lia Ruggiero) Grandmother Family history of cancer Grandfather Family history of diabetes mellitus Social History (Updated 06/18/24 @ 06:46 by Lia Ruggiero) Within the past year, how often did you have a drink containing alcohol: never Score interpretation: A score less than 3 is consistent with normal alcohol consumption. Smoking status: Never smoker Non-prescribed substance use: denies use Highest level of school completed/degree received: high school graduate Little interest or pleasure in doing things: not at all Feeling down, depressed, or hopeless: not at all Feel stressed/tense/nervous/anxious/difficulty sleeping: to some extent Life stressor details: Pt reports having anxiety but denies depression Meds Home Medications and Allergies Home Medications ?Medication ?Instructions ?Recorded ?Confirmed ?Type vitamin with calcium 1 tab PO Q24H 04/02/24 06/18/24 History no.72-iron 27 mg-folic acid 1 mg tablet ( Vitamins Plus Low Iron) terconazole 0.4 % vaginal cream 1 appful vaginal DAILY 04/02/24 04/02/24 History ibuprofen 800 mg tablet 800 mg PO Q8H PRN pain 14 days #40 06/19/24 Rx tabs oxycodone-acetaminophen 5 mg-325 1 tab PO Q6H PRN pain 7 days #28 06/19/24 Rx mg tablet (Percocet) tabs docusate sodium 100 mg capsule 100 mg PO BID #60 caps 06/21/24 Rx (Colace) docusate sodium 100 mg capsule 100 mg PO BID #60 caps 06/21/24 Rx (Colace) Allergies Allergy/AdvReac Type Severity Reaction Status Date / Time No Known Drug Allergies Allergy Verified 10/25/23 16:58 Exam Constitutional Vital Signs, click to edit/add: Last Vital Signs Temp 98.7 F 06/27/24 14:21 Pulse 72 06/27/24 14:21 Resp 18 06/27/24 14:21 BP 132/75 06/27/24 14:21 Pulse Ox 97 06/27/24 14:21 O2 Del Method Room Air 06/27/24 14:21 Documenting provider has reviewed patient's vital signs: yes Common normals: no apparent distress, oriented x3, no limitations, healthy appearing, alert and well nourished General appearance: cooperative and comfortable Nutritional appearance: obese Orientation/consciousness: Yes awake, Yes oriented to person, Yes oriented to place and Yes oriented to time HENMT Common normals: normocephalic and head/scalp atraumatic Eye Common normals: PERRL Pupil: accommodation reflex normal Neck & C-Spine Common normals: full ROM and supple Respiratory Common normals: normal respiratory effort Auscultation: clear to auscultation bilaterally Cardio Common normals: regular rate and regular rhythm GI Common normals: Normal to inspection, nondistended, normoactive bowel sounds present, soft to palpation and non-tender Other: LTCS, (PRIMARY) OPEN ABOUT 2 TO 3 INCHES AND DRAINING SEROSANGUINOUS LIQUID. NO ODER TO LIQUID. NO PUS. NO CELLULITIS. WOUND EXPANDED WITH HEMOSTAT AND IRRIGATED WITH LR. FASCIA ASSESSED AND INTACT. NUGAUS PACKING 1/4 INCH USED TO PACK WOUND. STERILE ABD APPLIED. ADDITIONAL ABD PADS GIVEN TO AND INSTRUCTED HOW TO POSITION AFTER PATIENT SHOWERS. INSTRUCTED NOT TO TOUCH OR CLEAN INCISION. WILL FOLLOW UP WITH ME ON SATURDAY AT 3 PM AT OB OFFICE. GIVEN BACTRIM DS ONE PO BID FOR 10 DAYS PROPHYLAXIS FOR MRSA. Common normals: no CVA tenderness Back & Pelvis Common normals: no thoracic nor lumbar tenderness Extremity Common normals: normal to inspection, full ROM and no calf tenderness Neuro Common normals: CN's II-XII intact bilaterally, moves all extremities, no focal motor deficits and no sensory deficits noted Motor exam: strength 5/5 throughout Psych Common normals: mental status grossly normal, thought process normal, cooperative, affect normal and speech normal OB - A/P Assessment and Plan (1) Wound dehiscence: Assessment and Plan: I AND D PERFORMED IN ED OF LTCS INCISION. STERILE TECHNIQUE. SEROSANGUINOUS LIQUID DRAINED. WOUND PACKED WITH 1/4 INCH PLAIN NUGAUZ AND STERILE ABD PAD APPLIED. NO TEMP NO WBC PER [facility] ED. Plan FOLLOW UP WITH SATURDAY AT OFFICE AT 3 PM FOR WOUND ASSESSMENT AND CARE EXPLAINED WHAT HAD OCCURRED AND WHAT HEALING BY SECOND INTENTION MEANS INSTRUCTIONS GIVEN WITH STATED UNDERSTANDING. NOT TO TOUCH, CLEAN, OR WIPE WOUND, KEEP COVERED WITH ABD INSTRUCTED SO SKIN DOES NOT TOUCH SKIN FROM PANUS.
[2024-06-27] MEDS: LIDOCAINE HCL 2% PF 40 MG/2 ML VIAL INJ (16:32)
[2024-06-30 09:39] LABS: BOX Test Reference Lab FIRELANDS; BOX Test Sent Out ANA+AEROBIC CX
== END 2024-06-27 17:05 | disposition home or self-care (01) ==
PROVIDERS: Emergency Provider Emergency Medicine
DX: O90.0 Disruption of cesarean delivery wound (principal); O99.845 Bariatric surgery status complicating the puerperium
CPT/HCPCS: 36415; 87070; 87075; 87205; 99283

== ENCOUNTER 2024-06-29 12:09 | Outpatient (OUT) | payer OTHER, SELFPAY ==
--- NOTE | 2024-06-29 15:18 | W.PM.PROCNOT ---
Date of procedure: 06/29/24 Pre-op diagnosis: INCISION SEROMA REQUIRING I AND D Post-op diagnosis: same as pre-op Procedure: INCISION INTIALLY OPENED IN ED THREE DAYS AGO AND DRAINED OF SEROMA. FASCIA INTACT. NUGAUZ PLAIN QUARTER INCH USED TO PACK AND STERILR ABD PAD APPLIED. NO CELLULITIS. STARTED ON BACTRIM DS BID FOR 10 DAYS MRSA PROPHYLAXIS. HERE TODAY FOR WOUND ASSESSMEMT AND REPACKING. OLD PACKING FELL OUT. NO CELLULITIS, NO PURULENT DRAINAGE, WOUND CLEAN AND WELL PERFUSED. IRRIGATED WITH NORMAL SALINE. NUGAUZ QUARTER INCH PLAIN PACKING USED TO REPACK INCISION OPENING SUCH THAT HEALING BY SECONDARY INTENTION CAN OCCUR. TOLERATED PROCEDURE WELL. WILL CALL PATIENT WHEN NEXT APPOINTMENT NEEDS TO BE. GIVEN TWO ABD PADS AND TWO BRIEFS TO TAKE HOME. IS TAKING BACTRIM. Anesthesia: None Surgeon: Jessica Fox Estimated blood loss (mL): 0 Pathology: none sent Condition: stable Disposition: other (HOME)
== END 2024-06-29 12:10 | disposition home or self-care (01) ==
PROVIDERS: Visit Provider Obstetrics & Gynecology
DX: Z48.01 Encounter for change or removal of surgical wound dressing (principal)

== ENCOUNTER 2024-07-02 03:48 | Outpatient (OUT) | payer OTHER, SELFPAY ==
--- OUTSIDE RECORDS SUMMARY | 2024-07-02 03:55 | XMS_ITS | CCD ---
Author Organization [facility] Informat ion Partnership [facility] Care Team Providers Care Rn Diabetes Educator Name Role Phone Unavailable Primary Care Provider Unavailabl e [employer] YARD LOADER OPERATOR - Kaela REHMAN Primary Care Provider DERIC FLORENCE Referring Unavailable GILLIAN, KAELA Primary Care Unavailable [employer] YARD LOADER OPERATOR - SHERIE, Kaela Primary Care Provider [phone] GILLIAN, KAELA Primary Care Unavailable DERIC FLORENCE [...] Primary Care Unavailable SY REARDON Attending Unavailable MANISHA BRYAN R Referring Unavailable NO PCP, NO PCP Primary Care Unavailable Unavailable Primary Care Provider Unavailabl e ESE DYERY Attending Unavailable MANISHAESE CROCKERY Attending Unavailable MANISHA, BRYAN Attending Unavailable KIERRA RIVAS Attending Unavailable MANISHA, BRYAN Attending Unavailable EVELYN, KIERRA Attending Unavailable BRYAN DYER Attending Unavailable BRYAN DYER Attending Unavailable BRYAN DYER Attending Unavailable NO PCP, NO PCP Primary Care Unavailable KENDRA MURPHY Referring Unavailable NO PCP, NO PCP Primary Care Unavailable TRAVIS VALLEJO Primary Care Unavailable NO PCP, NO PCP Primary Care Unavailable SARI STANLEY Attending Unavailable Medications Current Medications Medication Drug Class(es) Dates Sig (Normalized) Sig (Original) [id number] 200 actuat albuterol 0.09 mg/actuat metered dose [...] malabsorption, not elsewhere classified] Onset: 3 Chronic Complications of surgical procedures or medical care (1 source) Postprocedural seroma of skin and subcutaneous tissue following other procedure; Translations: [Postprocedural seroma of skin and subcutaneous tissue following other procedure] Onset: 4 Episodic Diabetes mellitus without complication (4 sources) Type [...] third trimester] 04-21-2024 Chronic Other complications of (1 source) Diseases of [...] (BMI) 38.0-38.9, adult] Onset: 4 Chronic Other upper respiratory infections (2 sources) Sinusitis; [...] en Y Onset: 4 Unclassified (1 source) Wound Check Onset: 4 Unclassified (1 source) Wants Test [...] [Other fatigue] Onset: 09-19-2021 09-13-2022 Episodic Other complications of (2 sources) Bariatric surgery status complicating , second trimester; Translations: [Bariatric surgery status complicating , second trimester] Onset: 02-17-2024 Episodic Other complications of (2 sources) Endocrine, nutritional and metabolic diseases complicating , second trimester; Translations: [Endocrine, nutritional and metabolic diseases complicating , second trimester] Onset: 02-17-2024 Episodic Other complications of (2 sources) Bariatric surgery status complicating , unspecified trimester; Translations: [Bariatric surgery status complicating , unspecified trimester] Onset: 02-17-2024 Episodic Other complications of (2 sources) Supervision of high risk , unspecified, unspecified trimester; Translations: [Supervision of high risk , unspecified, unspecified trimester] Onset: 02-17-2024 Episodic Other gastrointestinal disorders (2 sources) Diarrhea; Translations: [Diarrhea, unspecified] Onset: 04-12-2022 09-13-2022 Episodic Other gastrointestinal disorders (2 sources) Bariatric surgery status; Translations: [Bariatric surgery status] Onset: 02-17-2024 Episodic Other non-traumatic joint disorders (2 sources) [...] 09-13-2022 Episodic Other and delivery including normal (15 sources) Second trimester ; Translations: [Encounter for supervision of normal , unspecified, second trimester] Onset: 11-10-2023 04-07-2024 Episodic Other screening for suspected conditions [...] Test Name Value Interpretation Reference Range Facility BLOOD CULTUREon 06-27-2024 Bacteria identified Aer cx Nom (Bld) CULTURE RESULTS NO GROWTH 2 DAYS Normal [facility] Bacteria identified Aer cx Nom (Bld) CULTURE RESULTS NO GROWTH 2 DAYS Normal [facility] CBC AND AUTO DIFFon 06-27-20 ABSOLUTE BASOPHIL 0.0 X10E9/L Normal 0.0-0.2 [facility] Comment on above: Performed By: #### C BCA, CMP #### [facility] ([id number]) [address] [place] [address] [place] [address] ABSOLUTE NEUTROPHIL 5.5 X10E9/L Normal 1.5-6.6 [facility] Comment on above: Performed By: #### C BCA, CMP #### [facility] ([id number]) [address] [place] [address] 27909 Basophils/100 WBC (Bld) 0.3 % Normal [facility] Comment on above: Performed By: #### C BCA, CMP #### [facility] ([id number]) [address] [place] [address] 10248 Eosinophils (Bld) [#/Vol] 0.2 10*3/uL Normal 0.0-0.4 [facility] Comment on above: Performed By: #### C EARNEST, CMP #### [facility] ([id number]) [address] [place] [address] 74942 Eosinophils/100 WBC (Bld) 2.2 % Normal [facility] Comment on above: Performed By: #### C EARNEST, CMP #### [facility] ([id number]) [address] [place] [address] 01913 Erythrocyte distribution width (RBC) [Ratio] 13.8 % Normal 11.5-15.0 [facility] Comment on above: Performed By: #### C EARNEST, CMP #### [facility] ([id number]) [address] [place] [address] 47360 Hematocrit (Bld) [Volume fraction] 26.1 % Low 35-47 [facility] Comment on above: Performed By: #### C EARNEST, CMP #### [facility] ([id number]) [address] [place] [address] 56795 Hemoglobin (Bld) [Mass/Vol] 9.0 g/dL Low 11.7-15.5 [facility] Comment on above: Performed By: #### C EARNEST, CMP #### [facility] ([id number]) [address] [place] [address] 76151 Lymphocytes (Bld) [#/Vol] 2.2 10*3/uL Normal 1.0-3.5 [facility] Comment on above: Performed By: #### C EARNEST, CMP #### [facility] ([id number]) [address] [place] [address] 40252 Lymphocytes/100 WBC (Bld) 26.6 % Normal [facility] Comment on above: Performed By: #### C EARNEST, CMP #### [facility] ([id number]) [address] [place] [address] 43203 MCH (RBC) [Entitic mass] 31.7 pg Normal 27-34 [facility] Comment on above: Performed By: #### C EARNEST, CMP #### [facility] ([id number]) [address] [place] [address] 01812 MCHC (RBC) [Mass/Vol] 34.4 g/dL Normal 32-36 [facility] Comment on above: Performed By: #### C EARNEST, CMP #### [facility] ([id number]) [address] [place] [address] 29763 MCV (RBC) [Entitic vol] 92 fL Normal 80-100 [facility] Comment on above: Performed By: #### C EARNEST, CMP #### [facility] ([id number]) [address] [place] [address] 65271 Monocytes (Bld) [#/Vol] 0.4 10*3/uL Normal 0-0.9 [facility] Comment on above: Performed By: #### C EARNEST, CMP #### [facility] ([id number]) [address] [place] [address] 92245 Monocytes/100 WBC (Bld) 4.9 % Normal [facility] Comment on above: Performed By: #### C EARNEST, CMP #### [facility] ([id number]) [address] [place] [address] 14001 Neutrophils/100 WBC (Bld) 66.0 % Normal [facility] Comment on above: Performed By: #### C EARNEST, CMP #### [facility] ([id number]) [address] [place] [address] 38039 Platelet mean volume (Bld) [Entitic vol] 7.5 fL Normal 7-12 [facility] Comment on above: Performed By: #### C BCA, CMP #### [facility] ([id number]) [address] [place] [address] 96489 Platelets (Bld) [#/Vol] 365 10*3/uL Normal 150-450 [facility] Comment on above: Performed By: #### C BCA, CMP #### [facility] ([id number]) [address] [place] [address] 06774 RBC COUNT 2.84 X10E12/L Low 3.80-5.20 [facility] Comment on above: Performed By: #### C EARNEST, CMP #### [facility] ([id number]) [address] [place] [address] 75227 WBC (Bld) [#/Vol] 8.4 10*3/uL Normal 4.0-11.0 [facility] Comment on above: Performed By: #### C BCA, CMP #### [facility] ([id number]) [address] [place] [address] 42569 COMPREHENSIVE METABOLIC PANE Evan 06-27-2024 Albumin [Mass/Vol] 2.8 g/dL Low 3.2-5.3 [facility] Comment on above: Performed By: #### C BCA, CMP #### [facility] ([id number]) [address] [place] [address] 81654 ALP [Catalytic activity/Vol] 60 U/L Normal 39-130 [facility] Comment on above: Performed By: #### C BCA, CMP #### [facility] ([id number]) [address] [place] [address] 17864 ALT [Catalytic activity/Vol] 9 U/L Normal 0-31 [facility] Comment on above: Performed By: #### C BCA, CMP #### [facility] ([id number]) [address] [place] [address] 39820 Anion gap [Moles/Vol] 9 mmol/L Normal 5-15 [facility] Comment on above: Performed By: #### C BCA, CMP #### [facility] ([id number]) [address] [place] [address] 26197 AST [Catalytic activity/Vol] 11 U/L Normal 0-41 [facility] Comment on above: Performed By: #### C BCA, CMP #### [facility] ([id number]) [address] [place] [address] 48117 Bilirubin [Mass/Vol] 0.4 mg/dL Normal 0.3-1.2 [facility] Comment on above: Performed By: #### C BCA, CMP #### [facility] ([id number]) [address] [place] [address] 82889 Calcium [Mass/Vol] 8.2 mg/dL Low 8.5-10.5 [facility] Comment on above: Performed By: #### C BCA, CMP #### [facility] ([id number]) [address] [place] [address] 31220 Chloride [Moles/Vol] 108 mmol/L Normal 98-109 [facility] Comment on above: Performed By: #### C BCA, CMP #### [facility] ([id number]) [address] [place] [address] 63756 CO2 [Moles/Vol] 24 mmol/L Normal 22-32 [facility] Comment on above: Performed By: #### C BCA, CMP #### [facility] ([id number]) [address] [place] [address] 76814 Creatinine [Mass/Vol] 0.59 mg/dL Normal 0.40-1.00 [facility] Comment on above: Result Comment: METH OD TRACEABLE TO IDMS STANDARD Performed By: #### C BCA, CMP #### [facility] ([id number]) [address] [place] [address] 66162 eGFR (CKD-EPI) NON-RACE DEPENDENT >90 Normal >59 [facility] Comment on above: Result Comment: Reported eGFR is based on the CKD-EPI 2020 equation that does not use a race coefficient. Performed By: #### C BCA, CMP #### [facility] ([id number]) [address] [place] [address] 22906 Glucose [Mass/Vol] 84 mg/dL Normal 65-99 [facility] Comment on above: Performed By: #### C BCA, CMP #### [facility] ([id number]) [address] [place] [address] 62408 Potassium [Moles/Vol] 3.8 mmol/L Normal 3.5-5.0 [facility] Comment on above: Performed By: #### C BCA, CMP #### [facility] ([id number]) [address] [place] [address] 18363 Protein [Mass/Vol] 6.2 g/dL Normal 6.0-8.0 [facility] Comment on above: Performed By: #### C BCA, CMP #### [facility] ([id number]) [address] [place] [address] 68332 Sodium [Moles/Vol] 141 mmol/L Normal 134-146 [facility] Comment on above: Performed By: #### C BCA, CMP #### [facility] ([id number]) [address] [place] [address] 22139 Urea nitrogen [Mass/Vol] 11 mg/dL Normal 5-23 [facility] Comment on above: Performed By: #### C BCA, CMP #### [facility] ([id number]) [address] [place] [address] ABDOMEN AND PELVIS W CONT on 06-27-2024 CT ABDOMEN AND PELVIS W CONT CT ABDOMEN AND PELVIS W CONT CLINICAL HISTORY: Postop, occasional. CT ABDOMEN AND PELVIS WITH CONTRAST: 06/27/2024 PROCEDURE: Axial images were obtained through the abdomen and pelvis after oral contrast ingestion and 100 mL Omnipaque 300 intravenously. Coronal and sagittal reconstructions were performed. All CT scans at this facility use dose modulation, iterative reconstruction, and/or weight based dosing when appropriate to reduce radiation dose to as low as reasonably achievable. FINDINGS : There is no confluent infiltrate in the visualized lung bases. No pleural effusion is evident. No gross hepatic or splenic abnormalities evident on limited assessment. The pancreas, adrenal glands, and biliary tree are within normal limits. Abdominal evaluation is inhibited by body habitus The kidneys enhance symmetrically with no focal renal lesion. There is no pelvocaliectasis or ureteral dilation. Urinary bladder appears within normal limits. Uterine prominence is compatible with the status. There is heterogeneous density between the anterior uterus and the superior bladder. No organized fluid collection is evident. There is heterogeneous density around the uterus with a small amount of free fluid possible. Irregularity abdominal wall in the pelvis is compatible with the history of recent with irregular fluid and gas in the subcutaneous tissues of the abdominal region along the incision line. No dilated bowel loops are present. There are postoperative changes in the stomach and left upper abdomen. The appendix appears normal. 5 degenerative changes are present in the lower lumbar spine and within the hips with no acute osseous abnormality. IMPRESSION: Postoperative changes consistent with recent with heterogeneous density between the uterus and urinary bladder which may reflect inflammation/phlegm on. There is no abscess but infection cannot be completely excluded. Fluid and gas along the incision site within subcutaneous tissues of the abdomen/pelvis compatible with postoperative seroma. Infection cannot be excluded. Follow-up recommended. No other acute intra-abdominal or pelvic abnormality on CT assessment. 4 Finalized by J Luis Worthy MD on 06/27/2024 1:03 PM Normal [facility] Lactate (P brennen) [Moles/Vol]o n 06-27-2024 LACTATE W/REFLEX 0.7 mmol/L Normal 0.4-2.0 [facility] Comment on above: Result Comment: Result did not trigger repeat Lactate, re-order if needed. Performed By: #### 3 2133-1 #### [facility] ([id number]) [address] [place] [address], [place] [address] SUPERFICIAL WOUND CULTUREon 06-27-2024 Bacteria identified Aer cx Nom (Wound) SPECIMEN NOTES GRAM STAIN >25 WHITE BLOOD CELLS/LPF 0 SQUAMOUS EPITHELIAL CELLS/LPF MODERATE GRAM POSITIVE COCCI IN PAIRS FEW GRAM NEGATIVE RODS FEW GRAM POSITIVE RODS CULTURE RESULTS FEW STAPHYLOCOCCUS AUREUS METHICILLIN RESISTANT ALONG WITH FEW MIXED GRAM POSITIVE AND GRAM NEGATIVE ORGANISMS NO PSEUDOMONAS AERUGINOSA ISOLATED NO BETA HEMOLYTIC STREPTOCOCCI ISOLATED [ S = SUSCEPTIBLE R = RESISTANT I = INTERMEDIATE S-DO = Susceptible-dose dependent NS = Non-suscceptible NO = No Interpretation ] Organism: STAPHYLOCOCCUS AUREUS Antibiotic Interpretation SALINA Status CEFAZOLIN R F CLINDAMYCIN R >=4 F OXACILLIN R 0.5 F TRIMETH/SULFAMETHOX AZOLE S <=.5/9.5 F VANCOMYCIN S 1 F DAPTOMYCIN S 0.25 F DOXYCYCLINE S <=0.5 F Susceptible [facility] Comment on above: Performed By: #### 6 32-0 #### [facility] ([id number]) [address] [place] [address], [address] [place] [address] ALL CBC WITH AUTO DIFFon BASOPHILS ABSOLUTE AUTO 0 [facility] Basophils/100 WBC (Bld) 0.1 % Low 0.2 - 2.0 % [facility] Eosinophils/100 WBC (Bld) 0.3 % Low 0.9 - 7.0 % [facility] Erythrocyte distribution width (RBC) [Ratio] 14.1 % 11.0 - 15.0 % [facility] Hematocrit (Bld) [Volume fraction] 24.7 % Low 36.0 - 48.0 % [facility] Hemoglobin (Bld) [Mass/Vol] 8 g/dL Low 12.0 - 16.0 g/dL [facility] IMMATURE GRANULOCYTES ABS AUTO 0.04 High [facility] Immature granulocytes/100 WBC (Bld) 0.6 % High 0.0 - 0.5 % [facility] Interpretation and review of laboratory results Abnormal [facility] LYMPHOCYTES ABSOLUTE AUTO 1.3 [facility] Lymphocytes/100 WBC (Bld) 19.8 % Low 20.5 - 60.0 % [facility] MCH (RBC) [Entitic mass] 31.4 pg 26.7 - 34.0 pg [facility] MCHC (RBC) [Mass/Vol] 32.4 g/dL 29.9 - 35.2 g/dL [facility] MCV (RBC) [Entitic vol] 96.9 fL 81.0 - 99.0 fL [facility] MONOCYTES ABSOLUTE AUTO 0.3 [facility] Monocytes/100 WBC (Bld) 4.3 % 1.7 - 12.0 % [facility] NEUTROPHILS ABSOLUTE AUTO 5 [facility] Neutrophils/100 WBC (Bld) 74.9 % 43.0 - 75.0 % [facility] Platelet mean volume (Bld) [Entitic vol] 10.8 fL 9.5 - 13.5 fL [facility] TBH EO # 0 [facility] PLT 138 Low [facility] RBC 2.55 Low [facility] WBC 6.7 [facility] HM[facility] CBC WITH PLATELET NO DI FFERENTIALon 06-18-2024 Erythrocyte distribution width (RBC) [Ratio] 13.6 % 11.0 - 15.0 % [facility] Hematocrit (Bld) [Volume fraction] 31.1 % Low 36.0 - 48.0 % [facility] Hemoglobin (Bld) [Mass/Vol] 10.6 g/dL Low 12.0 - 16.0 g/dL [facility] Interpretation and review of laboratory results Abnormal [facility] MCH (RBC) [Entitic mass] 31.6 pg 26.7 - 34.0 pg [facility] MCHC (RBC) [Mass/Vol] 34.1 g/dL 29.9 - 35.2 g/dL [facility] MCV (RBC) [Entitic vol] 92.8 fL 81.0 - 99.0 fL [facility] Platelet mean volume (Bld) [Entitic vol] 11.6 fL 9.5 - 13.5 fL [facility] TBH PLT 211 [facility] RBC 3.35 Low [facility] WBC 9.3 [facility] Urinalysis macro (dipstick) panel (U)on 06-16-2024 Bilirubin, UA Negative Negative - 4(70) +++ mg/dL [facility] Blood, UA Negative Negative - 50 Marcus/mcL [facility] Clarity, UA Clear [facility] Color, UA Yellow [facility] Glucose, UA Negative Negative - 1999(110) ++++ mg/dL [facility] Interpretation and review of laboratory results Normal [facility] Ketones, UA Negative Negative - 160(16) ++++ mg/dL [facility] Leukocytes, UA Negative Negative - 500+++ Henrique/mcL [facility] Nitrite, UA Negative Negative - Positive [facility] pH, UA 7 5 - 9 [facility] Protein, UA Negative Negative - 1999(20) ++++ mg/dL [facility] Spec Grav, UA 1.025 1 - 1.03 [facility] Urobilinogen, UA 1.0 0.2 - 12 mg/dL [facility] ALL MISCELLANEOUS TESTon MISCELLANEOUS TEST COMMENT . [facility] Comment on above: Test Ordered: [id number] Strep Gp B SUJATA+Rflx Strep Gp B SUJATA+Rflx Negative CB Reference Range: Negative Centers for Disease Control and Prevention (CDC) and [place] [employer]stetricians and Gynecologists (ACOG) guidelines [...] resistance to clindamycin is noted. Performed at: - [address] [id number] Dyeing Machine Tender: Guillermo Gu PhD, Phone: [phone] VAG/REC [id number] Group B Streptococcus Colonization Detection, SUJATA With Refle [facility] Urinalysis macro (dipstick) panel (U)on 06-10-2024 Bilirubin, UA Negative Negative - 4(70) +++ mg/dL [facility] Blood, UA Negative Negative - 50 Marcus/mcL [facility] Clarity, UA Clear [facility] re Color, UA Yellow [facility] Glucose, UA Negative Negative - 1999(110) ++++ mg/dL [facility] Interpretation and review of laboratory results Abnormal [facility] Ketones, UA Positive Negative - 160(16) ++++ mg/dL [facility] Comment on above: trace Leukocytes, UA Negative Negative - 500+++ Henrique/mcL [facility] Nitrite, UA Negative Negative - Positive [facility] pH, UA 5.5 5 - 9 [facility]car [facility] Protein, UA Trace Negative - 1999(20) ++++ mg/dL [facility] Spec Grav, UA 1.03 1 - 1.03 [facility] Urobilinogen, UA 1.0 0.2 - 12 mg/dL [facility] Urinalysis macro (dipstick) panel (U)on 05-25-2024 Bilirubin, UA Negative Negative - 4(70) +++ mg/dL [facility] Blood, UA Negative Negative - 50 Marcus/mcL [facility] Clarity, UA Clear [facility] Color, UA Yellow [facility] Glucose, UA Negative Negative - 1999(110) ++++ mg/dL [facility] Interpretation and review of laboratory results Normal [facility] Ketones, UA Negative Negative - 160(16) ++++ mg/dL [facility] Leukocytes, UA Negative Negative - 500+++ Henrique/mcL [facility] Nitrite, UA Negative Negative - Positive [facility] pH, UA 5.5 5 - 9 [facility] Protein, UA Negative Negative - 1999(20) ++++ mg/dL [facility] Spec Grav, UA 1.03 1 - 1.03 [facility] Urobilinogen, UA 0.2 0.2 - 12 mg/dL [facility] Urinalysis macro (dipstick) panel (U)on 05-06-2024 Bilirubin, UA Positive Negative - 4(70) +++ mg/dL [facility] Comment on above: small Blood, UA Negative Negative - 50 Marcus/mcL [facility] Clarity, UA Clear [facility] Color, UA Yellow [facility] Glucose, UA Negative Negative - 1999(110) ++++ mg/dL [facility] Interpretation and review of laboratory results Abnormal [facility] Ketones, UA Negative Negative - 160(16) ++++ mg/dL [facility] Leukocytes, UA Negative Negative - 500+++ Henrique/mcL [facility] Nitrite, UA Negative Negative - Positive [facility] pH, UA 5.5 5 - 9 [facility] e Protein, UA Negative Negative - 1999(20) ++++ mg/dL [facility] Spec Grav, UA 1.03 1 - 1.03 [facility] Urobilinogen, UA 1.0 0.2 - 12 mg/dL [facility] ALL CBC WITH AUTO DIFFon BASOPHILS ABSOLUTE AUTO 0 [facility] Basophils/100 WBC (Bld) 0.2 % 0.2 - 2.0 % [facility] Eosinophils/100 WBC (Bld) 1.7 % 0.9 - 7.0 % [facility] Erythrocyte distribution width (RBC) [Ratio] 12.8 % 11.0 - 15.0 % [facility] Hematocrit (Bld) [Volume fraction] 33.8 % Low 36.0 - 48.0 % [facility] Hemoglobin (Bld) [Mass/Vol] 11.6 g/dL Low 12.0 - 16.0 g/dL [facility] IMMATURE GRANULOCYTES ABS AUTO 0.06 High [facility] Immature granulocytes/100 WBC (Bld) 0.6 % High 0.0 - 0.5 % [facility] Interpretation and review of laboratory results Abnormal [facility] LYMPHOCYTES ABSOLUTE AUTO 3.1 [facility] Lymphocytes/100 WBC (Bld) 31.7 % 20.5 - 60.0 % [facility] MCH (RBC) [Entitic mass] 32 pg 26.7 - 34.0 pg [facility] MCHC (RBC) [Mass/Vol] 34.3 g/dL 29.9 - 35.2 g/dL [facility] MCV (RBC) [Entitic vol] 93.1 fL 81.0 - 99.0 fL [facility] MONOCYTES ABSOLUTE AUTO 0.5 [facility] Monocytes/100 WBC (Bld) 5.1 % 1.7 - 12.0 % [facility] NEUTROPHILS ABSOLUTE AUTO 5.9 [facility] Neutrophils/100 WBC (Bld) 60.7 % 43.0 - 75.0 % [facility] Platelet mean volume (Bld) [Entitic vol] 10.2 fL 9.5 - 13.5 fL [facility] TBH EO # 0.2 [facility] RBC 3.63 Low [facility] TBH WBC 9.6 [facility] Urinalysis macro (dipstick) panel (U)on 04-07-2024 Bilirubin, UA Negative Negative - 4(70) +++ mg/dL [facility] Blood, UA Negative Negative - 50 Marcus/mcL [facility] Clarity, [facility]A Clear [facility] Glucose, UA Negative Negative - 1999(110) ++++ mg/dL [facility] Interpretation and review of laboratory results Normal [facility] Ketones, UA Negative Negative - 160(16) ++++ mg/dL [facility] Leukocytes, UA Negative Negative - 500+++ Henrique/mcL [facility] Nitrite, UA Negative Negative - Positive [facility] pH, UA 6.5 5 - 9 [facility] e Protein, UA Negative Negative - 1999(20) ++++ mg/dL [facility] Spec Grav, UA 1.025 1 - 1.03 [facility] Urobilinogen, UA 1.0 0.2 - 12 mg/dL [facility] ALL CBC WITH AUTO DIFFon BASOPHILS ABSOLUTE AUTO 0.0 [facility] Basophils/100 WBC (Bld) 0.4 % 0.2 - 2.0 % [facility] Eosinophils/100 WBC (Bld) 0.9 % 0.9 - 7.0 % [facility] Erythrocyte distribution width (RBC) [Ratio] 13.3 % 11.0 - 15.0 % [facility] Hematocrit (Bld) [Volume fraction] 29.9 % Low 36.0 - 48.0 % [facility] Hemoglobin (Bld) [Mass/Vol] 10.3 g/dL Low 12.0 - 16.0 g/dL [facility] IMMATURE GRANULOCYTES ABS AUTO 0.10 High [facility] Immature granulocytes/100 WBC (Bld) 1.1 % High 0.0 - 0.5 % [facility] Interpretation and review of laboratory results Abnormal [facility] LYMPHOCYTES ABSOLUTE AUTO 3.2 [facility] Lymphocytes/100 WBC (Bld) 34.2 % 20.5 - 60.0 % [facility] MCH (RBC) [Entitic mass] 32.4 pg 26.7 - 34.0 pg [facility] MCHC (RBC) [Mass/Vol] 34.4 g/dL 29.9 - 35.2 g/dL [facility] MCV (RBC) [Entitic vol] 94.0 fL 81.0 - 99.0 fL [facility] MONOCYTES ABSOLUTE AUTO 0.4 [facility] Monocytes/100 WBC (Bld) 4.7 % 1.7 - 12.0 % [facility] NEUTROPHILS ABSOLUTE AUTO 5.5 [facility] Neutrophils/100 WBC (Bld) 58.7 % 43.0 - 75.0 % [facility] Platelet mean volume (Bld) [Entitic vol] 9.9 fL 9.5 - 13.5 fL [facility] TBH EO # 0.1 [facility] TB PLT 209 [facility] TB RBC 3.18 Low [facility] TB WBC 9.4 [facility] Urinalysis macro (dipstick) panel (U)on 03-09-2024 Bilirubin, UA Negative Negative - 4(70) +++ mg/dL [facility] Blood, UA Negative Negative - 50 Marcus/mcL [facility] Clarity, UA Clear [facility] re Color, UA Yellow [facility] Glucose, UA Negative Negative - 1999(110) ++++ mg/dL [facility] Interpretation and review of laboratory results Abnormal [facility] Ketones, UA Positive Negative - 160(16) ++++ mg/dL [facility] Comment on above: trace Leukocytes, UA Negative Negative - 500+++ Henrique/mcL [facility] Nitrite, UA Negative Negative - Positive [facility] pH, UA 6.5 5 - 9 [facility] e Protein, UA Negative Negative - 1999(20) ++++ mg/dL [facility] Spec Grav, UA 1.030 1 - 1.03 [facility] Urobilinogen, UA 1.0 0.2 - 12 mg/dL [facility] H[facility] ( test) Ql (U)o n 11-10-2023 Beta HCG ( test) Ql (U) Positive Abnormal NEG [facility] Comment on above: Performed By: #### 2 106-3 #### [facility] ([id number]) [address] [place] [address] [place] [address] URN MACROSCOPIC NURon 2023 BILIRUBIN [place] Negative Normal NEG [facility] Comment on above: Performed By: #### N UM #### [facility] ([id number]) [address] [place] [address] [place] [address] BLOOD/HGB [place] Trace Abnormal NEG [facility] Comment on above: Performed By: #### N UM #### [facility] ([id number]) [address] [place] [address] [place] [address] GLUCOSE [place] Negative Normal NEG [facility] Comment on above: Performed By: #### N UM #### [facility] ([id number]) [address] [place] [address] [place] [address] KETONES [place] Trace Abnormal NEG [facility] Comment on above: Performed By: #### N UM #### [facility] ([id number]) [address] [place] [address] [place] [address] LEUKOCYTE ESTERASE [place] Small Abnormal NEG [facility] Comment on above: Performed By: #### N UM #### [facility] ([id number]) [address] [place] [address] [place] [address] NITRITE [place] Negative Normal NEG [facility] Comment on above: Performed By: #### N UM #### [facility] ([id number]) [address] [place] [address] [place] [address] PH [place] 6.0 Normal 5.0-8.5 [facility] Comment on above: Performed By: #### N UM #### [facility] ([id number]) [address] [place] [address] [place] [address] PROTEIN [place] Negative Normal NEG [facility] Comment on above: Performed By: #### N UM #### [facility] ([id number]) [address] [place] [address], [place] [address] SPECIFIC GRAVITY [place] 1.025 Normal 1.003-1.035 [facility] Comment on above: Performed By: #### N UM #### [facility] ([id number]) [address] [facility], [place] [address] UROBILINOGEN [place] 2.0 eu/dL High <1.1 [facility] Comment on above: Performed By: #### N UM #### [facility] ([id number]) [address] [facility], [place] [address] SARS/FLU A+B/RSV by NAAT/Mol ecularon 08-14-2023 SARS/FLU [...] operators who are performing tests using either [employer] or [employer] systems and is limited to laboratories that [...] repeat. Fact Sheet for Healthcare Providers: https://www.fda.gov /media/240685/downl oad Fact Sheet for Patients: https://www.fda.gov /media/120569/downl oad Normal [facility] Comment on above: Performed By: #### C OVFLR #### [facility] ([id number]) [address] [place] [address], [place] [address] VITAMIN B1-THIAMINE WHOLE BL Don 12-20-2022 VITAMIN B1-THIAMINE WHOLE BLD 142.2 nmol/L Normal 66.5-200.0 [facility] Comment on above: Order Comment: FAX R CRISTI TO DR FLORENCE: [phone] Result Comment: This test was developed and its performance characteristics determined by [employer]. It has not been cleared or approved by the Food and Drug Administration. Performed at: [address] [id number] Dyeing Machine Tender: Estuardo Michelle MD, Phone: [phone] This test was developed and its performance characteristics determined by [facility]. It has not been cleared or approved by the Food and Drug Administration. Performed By: #### V ITB1, ZINC #### [facility] [address] [place] [address] #### B12, FOL, CMP, PREALB, ANDREZ, CBCD #### [facility] [address] [place] [address] ZINC, PLASMAon 12-18-2022 ZINC, PLASMA 86 ug/dL Normal 44-115 [facility] Comment on above: Order Comment: FAX R ESULTS TO DR FLORENCE: [phone] Result Comment: This test was developed and its performance characteristics determined by [employer]. It has not been cleared or approved by the Food and Drug Administration. Detection Limit = 5 Performed at: [address] [id number] Dyeing Machine Tender: Estuardo Michelle MD, Phone: [phone] This test was developed and its performance characteristics determined by [facility]. It has not been cleared or approved by the Food and Drug Administration. Performed By: #### V ITB1, ZINC #### [facility] [address] [place] [address] #### B12, FOL, CMP, PREALB, ANDREZ, CBCD #### [facility] [address] [place] [address] CBC with DIFFERENTIALon 11-29 Basophils (Bld) [#/Vol] 0.0 10*3/uL Normal 0.0-0.1 [facility] Comment on above: Order Comment: FAX R ESULTS TO DR FLORENCE: [phone] Performed By: #### V ITB1, ZINC #### [facility] [address] [place] [address] #### B12, FOL, CMP, PREALB, ANDREZ, CBCD #### [facility] [address] [place] [address] Basophils/100 WBC (Bld) 0.5 % Normal 0.0-1.0 [facility] Comment on above: Order Comment: FAX R ESULTS TO DR FLORENCE: [phone] Performed By: #### V ITB1, ZINC #### [facility] [address] [place] [address] #### B12, FOL, CMP, PREALB, ANDREZ, CBCD #### [facility] [address] [place] [address] Eosinophils (Bld) [#/Vol] 0.4 10*3/uL Normal 0.0-0.4 [facility] Comment on above: Order Comment: FAX R ESULTS TO DR FLORENCE: [phone] Performed By: #### V ITB1, ZINC #### [facility] [address] [place] [address] #### B12, FOL, CMP, PREALB, ANDREZ, CBCD #### [facility] [address] [place] [address] Eosinophils/100 WBC (Bld) 4.8 % High 1.0-4.0 [facility] Comment on above: Order Comment: FAX R ESULTS TO DR FLORENCE: [phone] Performed By: #### V ITB1, ZINC #### [facility] [address] #### B12, FOL, CMP, PREALB, ANDREZ, CBCD #### [facility] [address] [place] [address] Hematocrit (Bld) [Volume fraction] 41.9 % Normal 37.0-47.0 [facility] Comment on above: Order Comment: FAX R ESULTS TO DR FLORENCE: [phone] Performed By: #### V ITB1, ZINC #### [facility] [address] #### B12, FOL, CMP, PREALB, ANDREZ, CBCD #### [facility] [address] [place] [address] Hemoglobin (Bld) [Mass/Vol] 13.8 g/dL Normal 12.0-16.0 [facility] Comment on above: Order Comment: FAX R ESULTS TO DR FLORENCE: [phone] Performed By: #### V ITB1, ZINC #### [facility] [address] #### B12, FOL, CMP, PREALB, ANDREZ, CBCD #### [facility] [address] [place] [address] IG # 0.0 10*3/uL Normal 0.0-0.1 [facility] Comment on above: Order Comment: FAX R ESULTS TO DR FLORENCE: [phone] Performed By: #### V ITB1, ZINC #### [facility] [address] [place] [address] #### B12, FOL, CMP, PREALB, ANDREZ, CBCD #### [facility] [address] [place] [address] IG % 0.4 % Normal 0.0-1.0 [facility] Comment on above: Order Comment: FAX R ESULTS TO DR FLORENCE: [phone] Performed By: #### V ITB1, ZINC #### [facility] [address] [place] [address] #### B12, FOL, CMP, PREALB, ANDREZ, CBCD #### [facility] [address] [place] [address] Lymphocytes (Bld) [#/Vol] 3.8 10*3/uL Normal 1.3-4.4 [facility] Comment on above: Order Comment: FAX R ESULTS TO DR FLORENCE: [phone] Performed By: #### V ITB1, ZINC #### [facility] [address] [place] [address] #### B12, FOL, CMP, PREALB, ANDREZ, CBCD #### [facility] [address] [place] [address] Lymphocytes/100 WBC (Bld) 45.5 % High 27.0-41.0 [facility] Comment on above: Order Comment: FAX R ESULTS TO DR FLORENCE: [phone] Performed By: #### V ITB1, ZINC #### [facility] [address] [place] [address] #### B12, FOL, CMP, PREALB, ANDREZ, CBCD #### [facility] [address] [place] [address] MCV (RBC) [Entitic vol] 89.3 fL Normal 81.0-99.0 [facility] Comment on above: Order Comment: FAX R ESULTS TO DR FLORENCE: [phone] Performed By: #### V ITB1, ZINC #### [facility] [address] [place] [address] #### B12, FOL, CMP, PREALB, ANDREZ, CBCD #### [facility] [address] [place] [address] MEAN CORPUSCULAR HGB 29.4 pg Normal 27.0-31.0 [facility] Comment on above: Order Comment: FAX R ESULTS TO DR FLORENCE: [phone] Performed By: #### V ITB1, ZINC #### [facility] [address] [place] [address] #### B12, FOL, CMP, PREALB, ANDREZ, CBCD #### [facility] [address] [place] [address] MEAN CORPUSCULAR HGB CONC 32.9 g/dl Low 33.0-37.0 [facility] Comment on above: Order Comment: FAX R ESULTS TO DR FLORENCE: [phone] Performed By: #### V ITB1, ZINC #### [facility] [address] [place] [address] #### B12, FOL, CMP, PREALB, ANDREZ, CBCD #### [facility] [address] [place] [address] Monocytes (Bld) [#/Vol] 0.4 10*3/uL Normal 0.1-1.0 [facility] Comment on above: Order Comment: FAX R ESULTS TO DR FLORENCE: [phone] Performed By: #### V ITB1, ZINC #### [facility] [address] [place] [address] #### B12, FOL, CMP, PREALB, ANDREZ, CBCD #### [facility] [address] [place] [address] Monocytes/100 WBC (Bld) 4.3 % Normal 3.0-9.0 [facility] Comment on above: Order Comment: FAX R ESULTS TO DR FLORENCE: [phone] Performed By: #### V ITB1, ZINC #### [facility] [address] [place] [address] #### B12, FOL, CMP, PREALB, ANDREZ, CBCD #### [facility] [address] [place] [address] Neutrophils (Bld) [#/Vol] 3.7 10*3/uL Normal 2.3-7.9 [facility] Comment on above: Order Comment: FAX R ESULTS TO DR FLORENCE: [phone] Performed By: #### V ITB1, ZINC #### [facility] [address] [place] [address] #### B12, FOL, CMP, PREALB, ANDREZ, CBCD #### [facility] [address] [place] [address] Neutrophils/100 WBC (Bld) 44.5 % Low 47.0-73.0 [facility] Comment on above: Order Comment: FAX R ESULTS TO DR FLORENCE: [phone] Performed By: #### V ITB1, ZINC #### [facility] [address] [place] [address] #### B12, FOL, CMP, PREALB, ANDREZ, CBCD #### [facility] [address] [place] [address] NUCLEATED RED BLOOD CELL 0.0 10*3/uL Normal 0.0-0.0 [facility] Comment on above: Order Comment: FAX R ESULTS TO DR FLORENCE: [phone] Performed By: #### V ITB1, ZINC #### [facility] [address] [place] [address] #### B12, FOL, CMP, PREALB, ANDREZ, CBCD #### [facility] [address] [place] [address] NUCLEATED RED BLOOD CELL 0.0 % Normal 0.0-0.0 [facility] Comment on above: Order Comment: FAX R ESULTS TO DR FLORENCE: [phone] Performed By: #### V ITB1, ZINC #### [facility] [address] [place] [address] #### B12, FOL, CMP, PREALB, ANDREZ, CBCD #### [facility] [address] [place] [address] PLATELET COUNT AUTOMATED 277 10*3/uL Normal 130-400 [facility] Comment on above: Order Comment: FAX R ESULTS TO DR FLORENCE: [phone] Performed By: #### V ITB1, ZINC #### [facility] [address] [place] [address] #### B12, FOL, CMP, PREALB, ANDREZ, CBCD #### [facility] [address] [place] [address] Platelet mean volume (Bld) [Entitic vol] 11.2 fL Normal 9.6-12.3 [facility] Comment on above: Order Comment: FAX R ESULTS TO DR FLORENCE: [phone] Performed By: #### V ITB1, ZINC #### [facility] [address] [place] [address] #### B12, FOL, CMP, PREALB, ANDREZ, CBCD #### [facility] [address] [place] [address] RBC (Bld) [#/Vol] 4.69 10*6/uL Normal 4.10-5.10 [facility] Comment on above: Order Comment: FAX R ESULTS TO DR FLORENCE: [phone] Performed By: #### V ITB1, ZINC #### [facility] [address] [place] [address] #### B12, FOL, CMP, PREALB, ANDREZ, CBCD #### [facility] [address] [place] [address] RED CELL DISTRI WIDTH 13.5 % Normal 0-14.5 [facility] Comment on above: Order Comment: FAX R ESULTS TO DR FLORENCE: [phone] Performed By: #### V ITB1, ZINC #### [facility] [address] [place] [address] #### B12, FOL, CMP, PREALB, ANDREZ, CBCD #### [facility] [address] [place] [address] WBC (Bld) [#/Vol] 8.3 10*3/uL Normal 4.8-10.8 [facility] Comment on above: Order Comment: FAX R ESULTS TO DR FLORENCE: [phone] Performed By: #### V ITB1, ZINC #### [facility] [address] [place] [address] #### B12, FOL, CMP, PREALB, ANDREZ, CBCD #### [facility] [address] [place] [address] COMPREHENSIVE METABOLIC PANE [facility] 12-14-2022 Albumin [Mass/Vol] 3.8 g/dL Normal 3.4-5.0 [facility] Comment on above: Order Comment: FAX R ESULTS TO DR FLORENCE: [phone] Performed By: #### V ITB1, ZINC #### [facility] [address] [place] [address] #### B12, FOL, CMP, PREALB, ANDREZ, CBCD #### [facility] [address] [place] [address] ALP [Catalytic activity/Vol] 74 U/L Normal 46-116 [facility] Comment on above: Order Comment: FAX R ESULTS TO DR FLORENCE: [phone] Performed By: #### V ITB1, ZINC #### [facility] [address] [place] [address] #### B12, FOL, CMP, PREALB, ANDREZ, CBCD #### [facility] [address] [place] [address] ALT [Catalytic activity/Vol] 34 U/L Normal 10-49 [facility] Comment on above: Order Comment: FAX R ESULTS TO DR FLORENCE: [phone] Performed By: #### V ITB1, ZINC #### [facility] [address] [place] [address] #### B12, FOL, CMP, PREALB, ANDREZ, CBCD #### [facility] [address] [place] [address] AST [Catalytic activity/Vol] 19 U/L Normal 0-34 [facility] Comment on above: Order Comment: FAX R ESULTS TO DR FLORENCE: Performed By: #### V ITB1, ZINC #### [facility] [address] [place] [address] #### B12, FOL, CMP, PREALB, ANDREZ, CBCD #### [facility] [address] [place] [address] Bilirubin [Mass/Vol] 0.3 mg/dL Normal 0.3-1.2 [facility] Comment on above: Order Comment: FAX R ESULTS TO DR FLORENCE: Performed By: #### V ITB1, ZINC #### [facility] [address] [place] [address] #### B12, FOL, CMP, PREALB, ANDRZE, CBCD #### [facility] [address] [place] [address] CALCIUM,TOTAL 9.0 md/dL Normal 8.7-10.4 [facility] Comment on above: Order Comment: FAX R ESULTS TO DR FLORENCE: Performed By: #### V ITB1, ZINC #### [facility] [address] [place] [address] #### B12, FOL, CMP, PREALB, ANDREZ, CBCD #### [facility] [address] [place] [address] Chloride [Moles/Vol] 109 mmol/L High 98-107 [facility] Comment on above: Order Comment: FAX R ESULTS TO DR FLORENCE: Performed By: #### V ITB1, ZINC #### [facility] [address] [place] [address] #### B12, FOL, CMP, PREALB, ANDREZ, CBCD #### [facility] [address] [place] [address] CO2 [Moles/Vol] 27 mmol/L Normal 20-31 [facility] Comment on above: Order Comment: FAX R ESULTS TO DR FLORENCE: [phone] Performed By: #### V ITB1, ZINC #### [facility] [address] [place] [address] #### B12, FOL, CMP, PREALB, ANDREZ, CBCD #### [facility] [address] [place] [address] Creatinine [Mass/Vol] 0.62 mg/dL Normal 0.55-1.02 [facility] Comment on above: Order Comment: FAX R ESULTS TO DR FLORENCE: [phone] Performed By: #### V ITB1, ZINC #### [facility] [address] [place] [address] #### B12, FOL, CMP, PREALB, ANDREZ, CBCD #### [facility] [address] [place] [address] EST GLOM FILT > 60 Normal [facility] Comment on above: Order Comment: FAX R ESULTS TO DR FLORENCE: [phone] Result Comment: Result Units: mL/min/1.73 m2 Note: [...] #### V ITB1, ZINC #### [facility] [address] [place] [address] #### B12, FOL, CMP, PREALB, ANDREZ, CBCD #### [facility] [address] [place] [address] ESTIMATED GLOM FILT RATE > 60 Normal [facility] Comment on above: Order Comment: FAX R ESULTS TO DR FLORENCE: [phone] Performed By: #### V ITB1, ZINC #### [facility] [address] [place] [address] #### B12, FOL, CMP, PREALB, ANDREZ, CBCD #### [facility] [address] [place] [address] Glucose [Mass/Vol] 103 mg/dL High 65-99 [facility] Comment on above: Order Comment: FAX R ESULTS TO DR FLORENCE: Performed By: #### V ITB1, ZINC #### [facility] [address] [place] [address] #### B12, FOL, CMP, PREALB, ANDREZ, CBCD #### [facility] [address] [place] [address] Potassium [Moles/Vol] 3.6 mmol/L Normal 3.4-5.1 [facility] Comment on above: Order Comment: FAX R ESULTS TO DR FLORENCE: [phone] Performed By: #### V ITB1, ZINC #### [facility] [address] [place] [address] #### B12, FOL, CMP, PREALB, ANDREZ, CBCD #### [facility] [address] [place] [address] Protein [Mass/Vol] 6.5 g/dL Normal 6.0-8.0 [facility] Comment on above: Order Comment: FAX R ESULTS TO DR FLORENCE: [phone] Performed By: #### V ITB1, ZINC #### [facility] [address] [place] [address] #### B12, FOL, CMP, PREALB, ANDREZ, CBCD #### [facility] [address] [place] [address] Sodium [Moles/Vol] 138 mmol/L Normal 136-145 [facility] Comment on above: Order Comment: FAX R ESULTS TO DR FLORENCE: [phone] Performed By: #### V ITB1, ZINC #### [facility] [address] [place] [address] #### B12, FOL, CMP, PREALB, ANDREZ, CBCD #### [facility] [address] [place] [address] Urea nitrogen [Mass/Vol] 8 mg/dL Low 03-23 [facility] Comment on above: Order Comment: FAX R ESULTS TO DR FLORENCE: [phone] Performed By: #### V ITB1, ZINC #### [facility] [address] [place] [address] #### B12, FOL, CMP, PREALB, ANDREZ, CBCD #### [facility] [address] [place] [address] FERRITINon 12-14-2022 Ferritin [Mass/Vol] 40.9 ng/mL Normal 7.3-307.3 [facility] Comment on above: Order Comment: FAX R ESULTS TO DR FLORENCE: [phone] Performed By: #### V ITB1, ZINC #### [facility] [address] [place] [address] #### B12, FOL, CMP, PREALB, ANDREZ, CBCD #### [facility] [address] [place] [address] FOLIC ACIDon 12-14-2022 FOLIC ACID 16.04 ng/mL Normal 5.38-24.00 [facility] Comment on above: Order Comment: FAX R ESULTS TO DR FLORENCE: [phone] Result Comment: 0.35 - 3.7 ng/mL - Folate Deficiency 3.38 - 5.38 ng/mL - Indeterminate > 5.38 ng/mL - Normal Performed By: #### V ITB1, ZINC #### [facility] [address] [place] [address] #### B12, FOL, CMP, PREALB, ANDREZ, CBCD #### [facility] [address] [place] [address] PREALBUMINon 12-14-2022 Prealbumin [Mass/Vol] 16 mg/dL Normal 10-40 [facility] Comment on above: Order Comment: FAMaximo SALEEMULTS TO DR FLORENCE: [phone] Performed By: #### V ITB1, ZINC #### [facility] [address] [place] [address] #### B12, FOL, CMP, PREALB, ANDREZ, CBCD #### [facility] [address] [place] [address] VITAMIN B12on 12-14-2022 Cobalamin (Vitamin B12) [Mass/Vol] 261 pg/mL Normal 211-911 [facility] Comment on above: Order Comment: FAX R ESULTS TO DR FLORENCE: [phone] Result Comment: 247 - 911 pg/mL - Normal, Vitamin B12 Sufficiency Performed By: #### V ITB1, ZINC #### [facility] [address] [place] [address] #### B12, FOL, CMP, PREALB, ANDREZ, CBCD #### [facility] [address] [place] [address]249 CBC with DIFFERENTIALon Basophils (Bld) [#/Vol] 0.0 10*3/uL Normal 0.0-0.1 [facility] Comment on above: Performed By: #### V ITB1, ZINC #### [facility] [address] [place] [address] #### B12, FOL, CMP, PREALB, ANDREZ, CBCD #### [facility] [address] [place] [address] 27867 Basophils/100 WBC (Bld) 0.6 % Normal 0.0-1.0 [facility] Comment on above: Performed By: #### V ITB1, ZINC #### [facility] [address] [place] [address] #### B12, FOL, CMP, PREALB, ANDREZ, CBCD #### [facility] [address] [place] [address] 06981 Eosinophils (Bld) [#/Vol] 0.4 10*3/uL Normal 0.0-0.4 [facility] Comment on above: Performed By: #### V ITB1, ZINC #### [facility] [address] [place] [address] #### B12, FOL, CMP, PREALB, ANDREZ, CBCD #### [facility] [address] [place] [address]2013 Eosinophils/100 WBC (Bld) 6.0 % High 1.0-4.0 [facility] Comment on above: Performed By: #### V ITB1, ZINC #### [facility] [address] [place] [address] #### B12, FOL, CMP, PREALB, ANDREZ, CBCD #### [facility] [address] [place] [address] 70109 Hematocrit (Bld) [Volume fraction] 42.2 % Normal 37.0-47.0 [facility] Comment on above: Performed By: #### V ITB1, ZINC #### [facility] [address] [place] [address] #### B12, FOL, CMP, PREALB, ANDREZ, CBCD #### [facility] [address] [place] [address] 27243 Hemoglobin (Bld) [Mass/Vol] 14.0 g/dL Normal 12.0-16.0 [facility] Comment on above: Performed By: #### V ITB1, ZINC #### [facility] [address] [place] [address] #### B12, FOL, CMP, PREALB, ANDREZ, CBCD #### [facility] [address] [place] [address]103 IG # 0.0 10*3/uL Normal 0.0-0.1 [facility] Comment on above: Performed By: #### V ITB1, ZINC #### [facility] [address] [place] [address] #### B12, FOL, CMP, PREALB, ANDREZ, CBCD #### [facility] [address] [place] [address] IG % 0.2 % Normal 0.0-1.0 [facility] Comment on above: Performed By: #### V ITB1, ZINC #### [facility] [address] [place] [address] #### B12, FOL, CMP, PREALB, ANDREZ, CBCD #### [facility] [address] [place] [address] 22777 Lymphocytes (Bld) [#/Vol] 3.4 10*3/uL Normal 1.3-4.4 [facility] Comment on above: Performed By: #### V ITB1, ZINC #### [facility] [address] [place] [address] #### B12, FOL, CMP, PREALB, ANDREZ, CBCD #### [facility] [address] [place] [address] 47263 Lymphocytes/100 WBC (Bld) 53.6 % High 27.0-41.0 [facility] Comment on above: Performed By: #### V ITB1, ZINC #### [facility] [address] [place] [address] #### B12, FOL, CMP, PREALB, ANDREZ, CBCD #### [facility] [address] [place] [address] 25525 MCV (RBC) [Entitic vol] 88.5 fL Normal 81.0-99.0 [facility] Comment on above: Performed By: #### V ITB1, ZINC #### [facility] [address] [place] [address] #### B12, FOL, CMP, PREALB, ANDREZ, CBCD #### [facility] [address] [place] [address] 89291 MEAN CORPUSCULAR HGB 29.4 pg Normal 27.0-31.0 [facility] Comment on above: Performed By: #### V ITB1, ZINC #### [facility] [address] [place] [address] #### B12, FOL, CMP, PREALB, ANDREZ, CBCD #### [facility] [address] [place] [address] 01582 MEAN CORPUSCULAR HGB CONC 33.2 g/dl Normal 33.0-37.0 [facility] Comment on above: Performed By: #### V ITB1, ZINC #### [facility] [address] [place] [address] #### B12, FOL, CMP, PREALB, ANDREZ, CBCD #### [facility] [address] [place] [address] 57835 Monocytes (Bld) [#/Vol] 0.3 10*3/uL Normal 0.1-1.0 [facility] Comment on above: Performed By: #### V ITB1, ZINC #### [facility] [address] [place] [address] #### B12, FOL, CMP, PREALB, ANDREZ, CBCD #### [facility] [address] [place] [address] 60603 Monocytes/100 WBC (Bld) 4.8 % Normal 3.0-9.0 [facility] Comment on above: Performed By: #### V ITB1, ZINC #### [facility] [address] [place] [address] #### B12, FOL, CMP, PREALB, ANDREZ, CBCD #### [facility] [address] [place] [address] 96836 Neutrophils (Bld) [#/Vol] 2.2 10*3/uL Low 2.3-7.9 [facility] Comment on above: Performed By: #### V ITB1, ZINC #### [facility] [address] [place] [address] #### B12, FOL, CMP, PREALB, ANDREZ, CBCD #### [facility] [address] [place] [address] Neutrophils/100 WBC (Bld) 34.8 % Low 47.0-73.0 [facility] Comment on above: Performed By: #### V ITB1, ZINC #### [facility] [address] [place] [address] #### B12, FOL, CMP, PREALB, ANDREZ, CBCD #### [facility] [address] [place] [address] 04879 NUCLEATED RED BLOOD CELL 0.0 10*3/uL Normal 0.0-0.0 [facility] Comment on above: Performed By: #### V ITB1, ZINC #### [facility] [address] [place] [address] #### B12, FOL, CMP, PREALB, ANDREZ, CBCD #### [facility] [address] [place] [address] 37888 NUCLEATED RED BLOOD CELL 0.0 % Normal 0.0-0.0 [facility] Comment on above: Performed By: #### V ITB1, ZINC #### [facility] [address] [place] [address] #### B12, FOL, CMP, PREALB, ANDREZ, CBCD #### [facility] [address] [place] [address] 05804 PLATELET COUNT AUTOMATED 265 10*3/uL Normal 130-400 [facility] Comment on above: Performed By: #### V ITB1, ZINC #### [facility] [address] [place] [address] #### B12, FOL, CMP, PREALB, ANDREZ, CBCD #### [facility] [address] [place] [address] 31799 Platelet mean volume (Bld) [Entitic vol] 11.3 fL Normal 9.6-12.3 [facility] Comment on above: Performed By: #### V ITB1, ZINC #### [facility] [address] [place] [address] #### B12, FOL, CMP, PREALB, ANDREZ, CBCD #### [facility] [address] [place] [address] RBC (Bld) [#/Vol] 4.77 10*6/uL Normal 4.10-5.10 [facility] Comment on above: Performed By: #### V ITB1, ZINC #### [facility] [address] [place] [address] #### B12, FOL, CMP, PREALB, ANDREZ, CBCD #### [facility] [address] [place] [address] 55796 RED CELL DISTRI WIDTH 13.9 % Normal 0-14.5 [facility] Comment on above: Performed By: #### V ITB1, ZINC #### [facility] [address] [place] [address] #### B12, FOL, CMP, PREALB, ANDREZ, CBCD #### [facility] [address] [place] [address] 91498 WBC (Bld) [#/Vol] 6.3 10*3/uL Normal 4.8-10.8 [facility] Comment on above: Performed By: #### V ITB1, ZINC #### [facility] [address] [place] [address] #### B12, FOL, CMP, PREALB, ANDREZ, CBCD #### [facility] [address] [place] [address] 27670 COMPREHENSIVE METABOLIC PANE Evan 12-03-2022 Albumin [Mass/Vol] 4.0 g/dL Normal 3.4-5.0 [facility] Comment on above: Performed By: #### V ITB1, ZINC #### [facility] [address] [place] [address] #### B12, FOL, CMP, PREALB, ANDREZ, CBCD #### [facility] [address] [place] [address] 76725 ALP [Catalytic activity/Vol] 69 U/L Normal 46-116 [facility] Comment on above: Performed By: #### V ITB1, ZINC #### [facility] [address] [place] [address] #### B12, FOL, CMP, PREALB, ANDREZ, CBCD #### [facility] [address] [place] [address] ALT [Catalytic activity/Vol] 79 U/L High 10-49 [facility] Comment on above: Performed By: #### V ITB1, ZINC #### [facility] [address] [place] [address] #### B12, FOL, CMP, PREALB, ANDREZ, CBCD #### [facility] [address] [place] [address] 35199 AST [Catalytic activity/Vol] 31 U/L Normal 0-34 [facility] Comment on above: Performed By: #### V ITB1, ZINC #### [facility] [address] [place] [address] #### B12, FOL, CMP, PREALB, ANDREZ, CBCD #### [facility] [address] [place] [address] 56690 Bilirubin [Mass/Vol] 0.4 mg/dL Normal 0.3-1.2 [facility] Comment on above: Performed By: #### V ITB1, ZINC #### [facility] [address] [place] [address] #### B12, FOL, CMP, PREALB, ANDREZ, CBCD #### [facility] [address] [place] [address] 94760 CALCIUM,TOTAL 9.1 md/dL Normal 8.7-10.4 [facility] Comment on above: Performed By: #### V ITB1, ZINC #### [facility] [address] [place] [address] #### B12, FOL, CMP, PREALB, ANDREZ, CBCD #### [facility] [address] [place] [address] Chloride [Moles/Vol] 109 mmol/L High 98-107 [facility] Comment on above: Performed By: #### V ITB1, ZINC #### [facility] [address] [place] [address] #### B12, FOL, CMP, PREALB, ANDREZ, CBCD #### [facility] [address] [place] [address] CO2 [Moles/Vol] 25 mmol/L Normal 20-31 [facility] Comment on above: Performed By: #### V ITB1, ZINC #### [facility] [address] [place] [address] #### B12, FOL, CMP, PREALB, ANDREZ, CBCD #### [facility] [address] [place] [address] Creatinine [Mass/Vol] 0.56 mg/dL Normal 0.55-1.02 [facility] Comment on above: Performed By: #### V ITB1, ZINC #### [facility] [address] [place] [address] #### B12, FOL, CMP, PREALB, ANDREZ, CBCD #### [facility] [address] [place] [address] EST GLOM FILT > 60 Normal [facility] Comment on above: Result Comment: Result Units: [...] #### V ITB1, ZINC #### [facility] [address] [place] [address] #### B12, FOL, CMP, PREALB, ANDREZ, CBCD #### [facility] [address] [place] [address] ESTIMATED GLOM FILT RATE > 60 Normal [facility] Comment on above: Performed By: #### V ITB1, ZINC #### [facility] [address] [place] [address] #### B12, FOL, CMP, PREALB, ANDREZ, CBCD #### [facility] [address] [place] [address] Glucose [Mass/Vol] 103 mg/dL High 65-99 [facility] Comment on above: Performed By: #### V ITB1, ZINC #### [facility] [address] [place] [address] #### B12, FOL, CMP, PREALB, ANDREZ, CBCD #### [facility] [address] [place] [address] 52397 Potassium [Moles/Vol] 3.8 mmol/L Normal 3.4-5.1 [facility] Comment on above: Performed By: #### V ITB1, ZINC #### [facility] [address] [place] [address] #### B12, FOL, CMP, PREALB, ANDREZ, CBCD #### [facility] [address] [place] [address] 11312 Protein [Mass/Vol] 6.7 g/dL Normal 6.0-8.0 [facility] Comment on above: Performed By: #### V ITB1, ZINC #### [facility] [address] [place] [address] #### B12, FOL, CMP, PREALB, ANDREZ, CBCD #### [facility] [address] [place] [address] 83498 Sodium [Moles/Vol] 141 mmol/L Normal 136-145 [facility] Comment on above: Performed By: #### V ITB1, ZINC #### [facility] [address] [place] [address] #### B12, FOL, CMP, PREALB, ANDREZ, CBCD #### [facility] [address] [place], [place] [address] Urea nitrogen [Mass/Vol] 10 mg/dL Normal 9-23 [facility] Comment on above: Performed By: #### V ITB1, ZINC #### [facility] [address] [place] [address] #### B12, FOL, CMP, PREALB, ANDREZ, CBCD #### [facility] [address] [place] [address] [id number] 12-03-2022 ESTIMATED AVERAGE GLUCOSE 94 Normal [facility] Comment on above: Performed By: #### V ITB1, ZINC #### [facility] [address] [place] [address] #### B12, FOL, CMP, PREALB, ANDREZ, CBCD #### [facility] [address] [place] [address] HbA1c (Bld) [Mass fraction] 4.9 % Normal 4.8-5.6 [facility] Comment on above: Result Comment: Standarization of method based on National Glycohemoglobin Standardization Program (NGSP). HEMOGLOBIN A1c(%) DEGREE of GLUCOSE CONTROL 5.7-6.4% Prediabetes range >6.4% Diagnosis of Diabetes <7% Glycemic control for adults with Diabetes Performed By: #### V ITB1, ZINC #### [facility] [address] [place] [address] #### B12, FOL, CMP, PREALB, ANDREZ, CBCD #### [facility] [address] [place], [place] [id number] INSULINon 12-03-2022 INSULIN 14.2 mU/L Normal 2.6-37.6 [facility] Comment on above: Performed By: #### V ITB1, ZINC #### [facility] [address] [place] [address] #### B12, FOL, CMP, PREALB, ANDREZ, CBCD #### [facility] [address] [place] [address] LIPID PANEL CHOLESTEROL/HDLo n 12-03-2022 Cholesterol [Mass/Vol] 113 mg/dL Normal <200 [facility] Comment on above: Performed By: #### V ITB1, ZINC #### [facility] [address] [place] [address] #### B12, FOL, CMP, PREALB, ANDREZ, CBCD #### [facility] [address] [place] [address] Cholesterol in HDL [Mass/Vol] 26 mg/dL Low 40-60 [facility] Comment on above: Performed By: #### V ITB1, ZINC #### [facility] [address] [place] [address] #### B12, FOL, CMP, PREALB, ANDREZ, CBCD #### [facility] [address] [place] [address] Cholesterol in LDL [Mass/Vol] 52 mg/dL Normal 9-159 [facility] Comment on above: Performed By: #### V ITB1, ZINC #### [facility] [address] [place] [address] #### B12, FOL, CMP, PREALB, ANDREZ, CBCD #### [facility] [address] [place] [address] Cholesterol.total/Chol esterol in HDL [Mass ratio] 4.3 {ratio} Normal [facility] Comment on above: Performed By: #### V ITB1, ZINC #### [facility] [address] [place] [address] #### B12, FOL, CMP, PREALB, ANDREZ, CBCD #### [facility] [address] [place] [address] Triglyceride [Mass/Vol] 176 mg/dL High <150 [facility] Comment on above: Result Comment: TRIGLYCERIDE RISK ASSESSMENT: 150-199 mg/dl BORDERLINE HIGH >200 mg//dl HIGH . Performed By: #### V ITB1, ZINC #### [facility] [address] [place] [address] #### B12, FOL, CMP, PREALB, ANDREZ, CBCD #### [facility] [address] [place] [address] VLDL CHOLESTEROL 35 mg/dL Normal 6-40 [facility] Comment on above: Performed By: #### V ITB1, ZINC #### [facility] [address] [place] [address] #### B12, FOL, CMP, PREALB, ANDREZ, CBCD #### [facility] [address] [place] [address] CBC with DIFFERENTIALon 05-0 9-2022 Basophils (Bld) [#/Vol] 0.0 10*3/uL Normal 0.0-0.1 [facility] Comment on above: Order Comment: FAX R ESULTS TO DR FLORENCE: [phone] Performed By: #### V ITB1, ZINC #### [facility] [address] [place] [address] #### B12, FOL, CMP, PREALB, ANDREZ, CBCD #### [facility] [address] [place] [address] Basophils/100 WBC (Bld) 0.3 % Normal 0.0-1.0 [facility] Comment on above: Order Comment: FAX R ESULTS TO DR FLORENCE: [phone] Performed By: #### V ITB1, ZINC #### [facility] [address] [place] [address] #### B12, FOL, CMP, PREALB, ANDREZ, CBCD #### [facility] [address] [place] [address] Eosinophils (Bld) [#/Vol] 0.2 10*3/uL Normal 0.0-0.4 [facility] Comment on above: Order Comment: FAX R ESULTS TO DR FLORENCE: [phone] Performed By: #### V ITB1, ZINC #### [facility] [address] [place] [address] #### B12, FOL, CMP, PREALB, ANDREZ, CBCD #### [facility] [address] [place] [address] Eosinophils/100 WBC (Bld) 3.2 % Normal 1.0-4.0 [facility] Comment on above: Order Comment: FAX R ESULTS TO DR FLORENCE: [phone] Performed By: #### V ITB1, ZINC #### [facility] [address] [place] [address] #### B12, FOL, CMP, PREALB, ANDREZ, CBCD #### [facility] [address] [place] [address] Hematocrit (Bld) [Volume fraction] 43.8 % Normal 37.0-47.0 [facility] Comment on above: Order Comment: FAX R ESULTS TO DR FLORENCE: [phone] Performed By: #### V ITB1, ZINC #### [facility] [address] [place] [address] #### B12, FOL, CMP, PREALB, ANDREZ, CBCD #### [facility] [address] [place] [address] Hemoglobin (Bld) [Mass/Vol] 14.3 g/dL Normal 12.0-16.0 [facility] Comment on above: Order Comment: FAX R ESULTS TO DR FLORENCE: [phone] Performed By: #### V ITB1, ZINC #### [facility] [address] [place] [address] #### B12, FOL, CMP, PREALB, ANDREZ, CBCD #### [facility] [address] [place] [address] IG # 0.1 10*3/uL Normal 0.0-0.1 [facility] Comment on above: Order Comment: FAX R ESULTS TO DR FLORENCE: Performed By: #### V ITB1, ZINC #### [facility] [address] [place] [address] #### B12, FOL, CMP, PREALB, ANDREZ, CBCD #### [facility] [address] [place] [address] IG % 0.7 % Normal 0.0-1.0 [facility] Comment on above: Order Comment: FAX R ESULTS TO DR FLORENCE: Performed By: #### V ITB1, ZINC #### [facility] [address] [place] [address] #### B12, FOL, CMP, PREALB, ANDREZ, CBCD #### [facility] [address] [place] [address] Lymphocytes (Bld) [#/Vol] 3.5 10*3/uL Normal 1.3-4.4 [facility] Comment on above: Order Comment: FAX R ESULTS TO DR FLORENCE: Performed By: #### V ITB1, ZINC #### [facility] [address] [place] [address] #### B12, FOL, CMP, PREALB, ANDREZ, CBCD #### [facility] [address] [place] [address] Lymphocytes/100 WBC (Bld) 46.7 % High 27.0-41.0 [facility] Comment on above: Order Comment: FAX R ESULTS TO DR FLORENCE: Performed By: #### V ITB1, ZINC #### [facility] [address] [place] [address] #### B12, FOL, CMP, PREALB, ANDREZ, CBCD #### [facility] [address] [place] [address] 42415 MCV (RBC) [Entitic vol] 88.1 fL Normal 81.0-99.0 [facility] Comment on above: Order Comment: FAX R ESULTS TO DR FLORENCE: [phone] Performed By: #### V ITB1, ZINC #### [facility] [address] [place] [address] #### B12, FOL, CMP, PREALB, ANDREZ, CBCD #### [facility] [address] [place] [address] MEAN CORPUSCULAR HGB 28.8 pg Normal 27.0-31.0 [facility] Comment on above: Order Comment: FAX R ESULTS TO DR FLORENCE: [phone] Performed By: #### V ITB1, ZINC #### [facility] [address] [place] [address] #### B12, FOL, CMP, PREALB, ANDREZ, CBCD #### [facility] [address] [place] [address] MEAN CORPUSCULAR HGB CONC 32.6 g/dl Low 33.0-37.0 [facility] Comment on above: Order Comment: FAX R ESULTS TO DR FLORENCE: [phone] Performed By: #### V ITB1, ZINC #### [facility] [address] [place] [address] #### B12, FOL, CMP, PREALB, ANDREZ, CBCD #### [facility] [address] [place] [address] 01391 Monocytes (Bld) [#/Vol] 0.3 10*3/uL Normal 0.1-1.0 [facility] Comment on above: Order Comment: FAX R ESULTS TO DR FLORENCE: [phone] Performed By: #### V ITB1, ZINC #### [facility] [address] [place] [address] #### B12, FOL, CMP, PREALB, ANDREZ, CBCD #### [facility] [address] [place] [address] Monocytes/100 WBC (Bld) 4.3 % Normal 3.0-9.0 [facility] Comment on above: Order Comment: FAX R ESULTS TO DR FLORENCE: [phone] Performed By: #### V ITB1, ZINC #### [facility] [address] [place] [address] #### B12, FOL, CMP, PREALB, ANDREZ, CBCD #### [facility] [address] [place] [address] Neutrophils (Bld) [#/Vol] 3.4 10*3/uL Normal 2.3-7.9 [facility] Comment on above: Order Comment: FAX R ESULTS TO DR FLORENCE: [phone] Performed By: #### V ITB1, ZINC #### [facility] [address] [place] [address] #### B12, FOL, CMP, PREALB, ANDREZ, CBCD #### [facility] [address] [place] [address] 525[address] Neutrophils/100 WBC (Bld) 44.8 % Low 47.0-73.0 [facility] Comment on above: Order Comment: FAX R ESULTS TO DR FLORENCE: [phone] Performed By: #### V ITB1, ZINC #### [facility] [address] [place] [address] #### B12, FOL, CMP, PREALB, ANDREZ, CBCD #### [facility] [address] [place] [address] 24062 NUCLEATED RED BLOOD CELL 0.0 10*3/uL Normal 0.0-0.0 [facility] Comment on above: Order Comment: FAX R ESULTS TO DR FLORENCE: [phone] Performed By: #### V ITB1, ZINC #### [facility] [address] [place] [address] #### B12, FOL, CMP, PREALB, ANDREZ, CBCD #### [facility] [address] [place] [address] 22295 NUCLEATED RED BLOOD CELL 0.0 % Normal 0.0-0.0 [facility] Comment on above: Order Comment: FAX R ESULTS TO DR FLORENCE: [phone] Performed By: #### V ITB1, ZINC #### [facility] [address] [place] [address] #### B12, FOL, CMP, PREALB, ANDREZ, CBCD #### [facility] [address] [place] [address] PLATELET COUNT AUTOMATED 347 10*3/uL Normal 130-400 [facility] Comment on above: Order Comment: FAX R ESULTS TO DR FLORENCE: [phone] Performed By: #### V ITB1, ZINC #### [facility] [address] [place] [address] #### B12, FOL, CMP, PREALB, ANDREZ, CBCD #### [facility] [address] [place] [address] Platelet mean volume (Bld) [Entitic vol] 9.9 fL Normal 9.6-12.3 [facility] Comment on above: Order Comment: FAX R ESULTS TO DR FLORENCE: [phone] Performed By: #### V ITB1, ZINC #### [facility] [address] [place] [address] #### B12, FOL, CMP, PREALB, ANDREZ, CBCD #### [facility] [address] [place] [address] 93466 RBC (Bld) [#/Vol] 4.97 10*6/uL Normal 4.10-5.10 [facility] Comment on above: Order Comment: FAX R ESULTS TO DR FLORENCE: [phone] Performed By: #### V ITB1, ZINC #### [facility] [address] [place] [address] #### B12, FOL, CMP, PREALB, ANDREZ, CBCD #### [facility] [address] [place] [address]38 RED CELL DISTRI WIDTH 13.2 % Normal 0-14.5 [facility] Comment on above: Order Comment: FAX R ESULTS TO DR FLORENCE: [phone] Performed By: #### V ITB1, ZINC #### [facility] [address] [place] [address] #### B12, FOL, CMP, PREALB, ANDREZ, CBCD #### [facility] [address] [place] [address] WBC (Bld) [#/Vol] 7.5 10*3/uL Normal 4.8-10.8 [facility] Comment on above: Order Comment: FAX R ESULTS TO DR FLORENCE: [phone] Performed By: #### V ITB1, ZINC #### [facility] [address] [place] [address] #### B12, FOL, CMP, PREALB, NADREZ, CBCD #### [facility] [address] [place] [address] COMPREHENSIVE METABOLIC PANE [facility] 11-06-2022 Albumin [Mass/Vol] 4.2 g/dL Normal 3.4-5.0 [facility] Comment on above: Order Comment: FAX R ESULTS TO DR FLORENCE: [phone] Performed By: #### V ITB1, ZINC #### [facility] [address] [place] [address] #### B12, FOL, CMP, PREALB, ANDREZ, CBCD #### [facility] [address] [place] [address] ALP [Catalytic activity/Vol] 59 U/L Normal 46-116 [facility] Comment on above: Order Comment: FAX R ESULTS TO DR FLORENCE: [phone] Performed By: #### V ITB1, ZINC #### [facility] [address] [place] [address] #### B12, FOL, CMP, PREALB, ANDREZ, CBCD #### [facility] [address] [place] [address] ALT [Catalytic activity/Vol] 30 U/L Normal 10-49 [facility] Comment on above: Order Comment: FAX R ESULTS TO DR FLORENCE: [phone] Performed By: #### V ITB1, ZINC #### [facility] [address] [place] [address] #### B12, FOL, CMP, PREALB, ANDREZ, CBCD #### [facility] [address] [place] [address] AST [Catalytic activity/Vol] 20 U/L Normal 0-34 [facility] Comment on above: Order Comment: FAX R ESULTS TO DR FLORENCE: [phone] Performed By: #### V ITB1, ZINC #### [facility] [address] [place] [address] #### B12, FOL, CMP, PREALB, ANDREZ, CBCD #### [facility] [address] [place] [address] Bilirubin [Mass/Vol] 0.5 mg/dL Normal 0.3-1.2 [facility] Comment on above: Order Comment: FAX R ESULTS TO DR FLORENCE: [phone] Performed By: #### V ITB1, ZINC #### [facility] [address] [place] [address] #### B12, FOL, CMP, PREALB, ANDREZ, CBCD #### [facility] [address] [place] [address] CALCIUM,TOTAL 9.3 md/dL Normal 8.7-10.4 [facility] Comment on above: Order Comment: FAX R ESULTS TO DR FLORENCE: [phone] Performed By: #### V ITB1, ZINC #### [facility] [address] [place] [address] #### B12, FOL, CMP, PREALB, ANDREZ, CBCD #### [facility] [address] [place] [address] Chloride [Moles/Vol] 103 mmol/L Normal 98-107 [facility] Comment on above: Order Comment: FAX R ESULTS TO DR FLORENCE: [phone] Performed By: #### V ITB1, ZINC #### [facility] [address] [place] [address] #### B12, FOL, CMP, PREALB, ANDREZ, CBCD #### [facility] [address] [place] [address] CO2 [Moles/Vol] 23 mmol/L Normal 20-31 [facility] Comment on above: Order Comment: FAX R ESULTS TO DR FLORENCE: [phone] Performed By: #### V ITB1, ZINC #### [facility] [address] [place] [address] #### B12, FOL, CMP, PREALB, ANDREZ, CBCD #### [facility] [address] [place] [address] Creatinine [Mass/Vol] 0.58 mg/dL Normal 0.55-1.02 [facility] Comment on above: Order Comment: FAX R ESULTS TO DR FLORENCE: [phone] Performed By: #### V ITB1, ZINC #### [facility] [address] [place] [address] #### B12, FOL, CMP, PREALB, ANDREZ, CBCD #### [facility] [address] [place] [address] EST GLOM FILT > 60 Normal [facility] Comment on above: Order Comment: FAX R ESULTS TO DR FLORECNE: [phone] Result Comment: Result Units: mL/min/1.73 m2 Note: [...] #### V ITB1, ZINC #### [facility] [address] [place] [address] #### B12, FOL, CMP, PREALB, ANDREZ, CBCD #### [facility] [address] [place] [address] ESTIMATED GLOM FILT RATE > 60 Normal [facility] Comment on above: Order Comment: FAX R ESULTS TO DR FLORENCE: [phone] Performed By: #### V ITB1, ZINC #### [facility] [address] [place] [address] #### B12, FOL, CMP, PREALB, ANDREZ, CBCD #### [facility] [address] [place] [address] Glucose [Mass/Vol] 92 mg/dL Normal 65-99 [facility] Comment on above: Order Comment: FAX R ESULTS TO DR FLORENCE: [phone] Performed By: #### V ITB1, ZINC #### [facility] [address] [place] [address] #### B12, FOL, CMP, PREALB, ANDREZ, CBCD #### [facility] [address] [place] [address] Potassium [Moles/Vol] 3.9 mmol/L Normal 3.4-5.1 [facility] Comment on above: Order Comment: FAX R ESULTS TO DR FLORENCE: [phone] Performed By: #### V ITB1, ZINC #### [facility] [address] [place] [address] #### B12, FOL, CMP, PREALB, ANDREZ, CBCD #### [facility] [address] [place] [address] Protein [Mass/Vol] 7.3 g/dL Normal 6.0-8.0 [facility] Comment on above: Order Comment: FAX R ESULTS TO DR FLORENCE: [phone] Performed By: #### V ITB1, ZINC #### [facility] [address] [place] [address] #### B12, FOL, CMP, PREALB, ANDREZ, CBCD #### [facility] [address] [place] [address] Sodium [Moles/Vol] 137 mmol/L Normal 136-145 [facility] Comment on above: Order Comment: FAX R ESULTS TO DR FLORENCE: [phone] Performed By: #### V ITB1, ZINC #### [facility] [address] [place] [address] #### B12, FOL, CMP, PREALB, ANDREZ, CBCD #### [facility] [address] [place] [address] Urea nitrogen [Mass/Vol] 12 mg/dL Normal 9-23 [facility] Comment on above: Order Comment: FAX R ESULTS TO DR FLORENCE: [phone] Performed By: #### V ITB1, ZINC #### [facility] [address] [place] [address] #### B12, FOL, CMP, PREALB, ANDREZ, CBCD #### [facility] [address] [place] [address] Basic Metabolic Panelon 05-0 Anion gap [Moles/Vol] 11 mmol/L Normal 7-16 [facility] Calcium [Mass/Vol] 8.9 mg/dL Normal 8.6-10.2 [facility] Chloride [Moles/Vol] 104 mmol/L Normal 98-107 [facility] CO2 [Moles/Vol] 25 mmol/L Normal 22-29 [facility] Creatinine [Mass/Vol] 0.6 mg/dL Normal 0.5-1.0 [facility] GFR Calculated >60 Normal >=60 [facility] Comment on above: Result Comment: Dion atric [...] Glucose [Mass/Vol] 117 mg/dL High 74-99 [facility] Potassium [Moles/Vol] 4.3 mmol/L Normal 3.5-5.0 [facility] Sodium [Moles/Vol] 140 mmol/L Normal 132-146 [facility] Urea nitrogen [Mass/Vol] 13 mg/dL Normal 6-20 [facility] Basic metabolic 2000 panelon 10-30-2022 Anion gap [Moles/Vol] 11 mmol/L 7 - 16 mmol/L [facility] Calcium [Mass/Vol] 8.9 mg/dL 8.6 - 10. 2 mg/dL [facility] Chloride [Moles/Vol] 104 mmol/L 98 - 10 7 mmol/L [facility] CO2 [Moles/Vol] 25 mmol/L 22 - 29 mmol/L [facility] Creatinine [Mass/Vol] 0.6 mg/dL 0.5 - 1.0 mg/dL [facility] GFR/1.73 sq M.predicted among non-blacks MDRD (S/P/Bld) [Vol rate/Area] mL/min/1.73 60 - PINF mL/min/1.73 [facility] Comment on above: Pediatric calculator link https://www.kidney.org/professionals/kdoqi/gfr_calculatorped [...] 117 mg/dL High 74 - 99 mg/dL [facility] Potassium [Moles/Vol] 4.3 mmol/L 3.5 - 5.0 mmol/L [facility] Sodium [Moles/Vol] 140 mmol/L 132 - 146 mmol/L [facility] Urea nitrogen [Mass/Vol] 13 mg/dL 6 - 20 mg/dL [facility] CBC With Platelet and Differ entialon 10-30-2022 Abs Imm Granulocytes 0.07 E9/L Normal [facility] Absolute Basophils 0.01 E9/L Normal 0.00-0.20 [facility] Absolute Eosinophils 0.00 E9/L Low 0.05-0.50 [facility] Absolute Lymphocytes 1.89 E9/L Normal 1.50-4.00 [facility] Absolute Monocytes 0.73 E9/L Normal 0.10-0.95 [facility] Absolute Neutrophils 9.02 E9/L High 1.80-7.30 [facility] Basophils/100 WBC (Bld) 0.1 % Normal 0.0-2.0 [facility] Eosinophils/100 WBC (Bld) 0.0 % Normal 0.0-6.0 [facility] Hematocrit (Bld) [Volume fraction] 38.2 % Normal 34.0-48.0 [facility] Hemoglobin (Bld) [Mass/Vol] 12.2 g/dL Normal 11.5-15.5 [facility] Imm Granulocytes 0.6 % Normal 0.0-5.0 [facility] Lymphocytes/100 WBC (Bld) 16.1 % Low 20.0-42.0 [facility] MCH (RBC) [Entitic mass] 29.2 pg Normal 26.0-35.0 [facility] MCHC 31.9 % Low 32.0-34.5 [facility] MCV (RBC) [Entitic vol] 91.4 fL Normal 80.0-99.9 [facility] Monocytes/100 WBC (Bld) 6.2 % Normal 2.0-12.0 [facility] Neutrophils/100 WBC (Bld) 77.0 % Normal 43.0-80.0 [facility] Platelet Count 285 E9/L Normal 130-450 [facility] Platelet mean volume (Bld) [Entitic vol] 10.4 fL Normal 7.0-12.0 [facility] RBC 4.18 E12/L Normal 3.50-5.50 [facility] RDW 13.2 fL Normal 11.5-15.0 [facility] WBC 11.7 E9/L High 4.5-11.5 [facility] CBC with Auto Differentialon 10-30-2022 Basophils (Bld) [#/Vol] 0.01 10*3/uL [facility] Basophils/100 WBC (Bld) 0.1 % 0.0 - 2.0 % [facility] Eosinophils (Bld) [#/Vol] 0.00 10*3/uL Low [facility] Eosinophils/100 WBC (Bld) 0 % 0.0 - 6.0 % [facility] Erythrocyte distribution width (RBC) [Ratio] 13.2 fL 11.5 - 15.0 fL [facility] Hematocrit (Bld) [Volume fraction] 38.2 % 34.0 - 48.0 % [facility] Hemoglobin (Bld) [Mass/Vol] 12.2 g/dL 11.5 - 15.5 g/dL [facility] Immature granulocytes (Bld) [#/Vol] 0.07 10*3/uL E9/L [facility] Immature granulocytes/100 WBC (Bld) 0.6 % 0.0 - 5.0 % [facility] Interpretation and review of laboratory results Abnormal [facility] Lymphocytes (Bld) [#/Vol] 1.89 10*3/uL [facility] Lymphocytes/100 WBC (Bld) 16.1 % Low 20.0 - 42.0 % [facility] MCH (RBC) [Entitic mass] 29.2 pg 26.0 - 35.0 pg [facility] MCHC (RBC) [Mass/Vol] 31.9 % Low 32.0 - 34.5 % [facility] MCV (RBC) [Entitic vol] 91.4 fL 80.0 - 99.9 fL [facility] Monocytes (Bld) [#/Vol] 0.73 10*3/uL [facility] Monocytes/100 WBC (Bld) 6.2 % 2.0 - 12.0 % [facility] Neutrophils (Bld) [#/Vol] 9.02 10*3/uL High [facility] Platelet mean volume (Bld) [Entitic vol] 10.4 fL 7.0 - 12.0 fL [facility] Platelets (Bld) [#/Vol] 285 10*3/uL [facility] RBC (Bld) [#/Vol] 4.18 10*6/uL [facility] Segmented neutrophils/100 WBC (Bld) 77.0 % 43.0 - 80.0 % [facility] WBC (Bld) [#/Vol] 11.7 10*3/uL High [facility] Hepatic Function Panelon Albumin [Mass/Vol] 3.7 g/dL 3.5 - 5.2 g/dL [facility] ALP [Catalytic activity/Vol] 55 U/L 35 - 104 U/L [facility] ALT [Catalytic activity/Vol] 19 U/L 0 - 32 U/L [facility] AST [Catalytic activity/Vol] 14 U/L 0 - 31 U/L [facility] Bilirubin [Mass/Vol] 0.5 mg/dL 0.0 - 1 .2 mg/dL [facility] Bilirubin.direct [Mass/Vol] mg/dL 0.0 - 0.3 mg/dL [facility] Bilirubin.indirect [Mass/Vol] see below 0.0 - 1.0 mg/dL [facility] Comment on above: Indirect Bilirubin c annot be calculated since Total Bilirubin and/or Direct Bilirubin is below measurable range. Protein [Mass/Vol] 6.3 g/dL Low 6.4 - 8.3 g/dL [facility] Hgb A1Con 10-30-2022 HbA1c (Bld) [Mass fraction] 4.8 % Normal 4.0-5.6 [facility] Lipid Panelon 10-30-2022 Cholesterol [Mass/Vol] 99 mg/dL Normal 0-199 [facility] Cholesterol in HDL [Mass/Vol] 34 mg/dL Normal >40 [facility] Cholesterol in LDL [Mass/Vol] 43 mg/dL Normal 0-99 [facility] Triglyceride [Mass/Vol] 108 mg/dL Normal 0-149 [facility] VLDL Cholesterol (Calculated) 22 mg/dL Normal [facility] Cholesterol [Mass/Vol] 99 mg/dL 0 - 1 99 mg/dL [facility] Cholesterol in HDL [Mass/Vol] 34 mg/dL 40 - PINF mg/dL [facility] Cholesterol in LDL [Mass/Vol] 43 mg/dL 0 - 99 mg/dL [facility] Cholesterol in VLDL [Mass/Vol] 22 mg/dL [facility] Triglyceride [Mass/Vol] 108 mg/dL 0 - 149 mg/dL [facility] Liver Panelon 10-30-2022 Albumin [Mass/Vol] 3.7 g/dL Normal 3.5-5.2 [facility] ALP [Catalytic activity/Vol] 55 U/L Normal 35-104 [facility] ALT [Catalytic activity/Vol] 19 U/L Normal 0-32 [facility] AST [Catalytic activity/Vol] 14 U/L Normal 0-31 [facility] Bilirubin [Mass/Vol] 0.5 mg/dL Normal 0.0-1.2 [facility] Bilirubin Indirect see below Normal 0.0-1.0 [facility] Comment on above: Result Comment: Grace rect Bilirubin cannot be calculated since Total Bilirubin and/or Direct Bilirubin is below measurable range. Bilirubin.indirect [Mass/Vol] mg/dL Normal 0.0-0.3 [facility] Protein [Mass/Vol] 6.3 g/dL Low 6.4-8.3 [facility] METER GLUCOSEon 10-30-2022 Glucose [Mass/Vol] 111 mg/dL High 74-99 [facility] Magnesiumon 10-30-2022 Magnesium [Mass/Vol] 1.7 mg/dL Normal 1.6-2.6 [facility] Magnesium [Mass/Vol] 1.7 mg/dL 1.6 - 2 .6 mg/dL [facility] No Panel Informationon 10-30 Interpretation and review of laboratory results Abnormal [facility] POCT Glucoseon 10-30-2022 Glucose [Mass/Vol] 111 mg/dL High 74 - 99 mg/dL [facility] Interpretation and review of laboratory results Abnormal [facility] Phosphoruson 10-30-2022 Phosphate [Mass/Vol] 4.0 mg/dL Normal 2.5-4.5 [facility] Phosphate [Mass/Vol] 4.0 mg/dL 2.5 - 4 .5 mg/dL [facility] T4, Freeon 10-30-2022 Free T4 [Mass/Vol] 1.32 ng/dL 0.93 - 1. 70 ng/dL [facility] TSHon 10-30-2022 TSH [Mass/Vol] 0.828 [facility] TSH w/out Reflexon TSH w/out Reflex 0.828 uIU/mL Normal 0.270-4.200 [facility] Thyroxine Freeon 10-30-2022 Thyroxine Free 1.32 ng/dL Normal 0.93-1.70 [facility] Comprehensive Metabolic Pane evan 10-29-2022 Potassium see note Critically abnormal 3.5-5.0 [facility] Comment on above: Result Comment: Lisa icate order. Made no charge to patient for testing Corrected result; previously reported as 4.3 on 10/24/2022 at 19:57 by JESUS Hemoglobin A1con 10-29-2022 HbA1c (Bld) [Mass fraction] 5.1 % 4.0 - 5.6 % [facility] Hgb A1Con 10-29-2022 HbA1c (Bld) [Mass fraction] 5.1 % Normal 4.0-5.6 [facility] METER GLUCOSEon 10-29-2022 Glucose [Mass/Vol] 128 mg/dL High 74-99 [facility] Glucose [Mass/Vol] 146 mg/dL High 74-99 [facility] Glucose [Mass/Vol] 104 mg/dL High 74-99 [facility] Glucose [Mass/Vol] 101 mg/dL High 74-99 [facility] No Panel Informationon 10-29 [facility] POC Urine Qualon 0 10-29-2022 Beta HCG ( test) Ql (U) Negative Negative [facility] Work Phone: Beta HCG ( test) Ql (U) [id number] [facility] [employer] Work Phone: Negative QC Pass/Fail Pass [facility] Work Phone: Positive QC Pass/Fail Pass [facility] Work Phone: POCT Glucoseon 10-29-2022 Glucose [Mass/Vol] 128 mg/dL High 74 - 99 mg/dL [facility] Interpretation and review of laboratory results Abnormal [facility] Glucose [Mass/Vol] 146 mg/dL High 74 - 99 mg/dL [facility] Interpretation and review of laboratory results Abnormal [facility] Glucose [Mass/Vol] 104 mg/dL High 74 - 99 mg/dL [facility] Interpretation and review of laboratory results Abnormal [facility] Glucose [Mass/Vol] 101 mg/dL High 74 - 99 mg/dL [facility] Interpretation and review of laboratory results Abnormal [facility] Surgical Specimenon 10-30-19 Surgical Specimen [facility] [address] [address] FINAL SURGICAL PATHOLOGY REPORT NAME: BATOOL KINGSLEY Date of 10/29/2022 Collection: Medical Record [id number] Date of 10/29/2022 Number: Receipt: Age: 22 Y Sex: F Date 10/31/2022 12:02 Reported: Date Of : 2000 Financial [id number] Admitting DERIC FLORENCE Number: Physician: Patient DIS [id number] Ordering DERIC FLORENCE Location: Physician: Accession Number: [id number] Additional Physicians:KAELA ARELLANO Diagnosis: Small intestine, limited resection: No diagnostic abnormality. SHANTA CAUSEY M.D. (Electronic Signature) Specimen Submitted: SMALL INTESTINE, RESECTION NOT TUMOR Clinical Notes: Operative Procedure: Gastric bypass Nuno-en-Y laparoscopic Preoperative Dx: Morbid obesity Microscopic Evaluation: Was performed. Gross Description: Submitted in one part in formalin labeled Batool Ashman, segment small bowel is an oval shaped portion of hanson haq mucosal lined fibrous tissue, insurance follow up representative or portions of small bowel which measures 4.1 x 2.5 x 1.7 cm. Much of the exterior is covered by hanson haq, soft to finely folded mucosa. Numerous, small metallic surgical [place] are present throughout the exterior. Discrete mucosal lesions are not present. Sectioning is unremarkable. [employer] Operations Intelligence Officer sections are submitted. Block label A1. (JORGE L:TAURUS) CODES: [id number]; Department of Pathology Page 1 of 1 Normal [facility] CBC (Hemogram)on 10-24-2022 Erythrocyte distribution width (RBC) [Ratio] 13.7 fL 11.5 - 15.0 fL [facility] Hematocrit (Bld) [Volume fraction] 43.9 % 34.0 - 48.0 % [facility] Hemoglobin (Bld) [Mass/Vol] 14.3 g/dL 11.5 - 15.5 g/dL [facility] MCH (RBC) [Entitic mass] 28.9 pg 26.0 - 35.0 pg [facility] MCHC (RBC) [Mass/Vol] 32.6 % 32.0 - 34.5 % [facility] MCV (RBC) [Entitic vol] 88.9 fL 80.0 - 99.9 fL [facility] Platelet mean volume (Bld) [Entitic vol] 10.6 fL 7.0 - 12.0 fL [facility] Platelets (Bld) [#/Vol] 321 10*3/uL [facility] RBC (Bld) [#/Vol] 4.94 10*6/uL [facility] WBC (Bld) [#/Vol] 7.0 10*3/uL [facility] CBC With Platelet No Differe ntialon 10-24-2022 Hematocrit (Bld) [Volume fraction] 43.9 % Normal 34.0-48.0 [facility] Hemoglobin (Bld) [Mass/Vol] 14.3 g/dL Normal 11.5-15.5 [facility] MCH (RBC) [Entitic mass] 28.9 pg Normal 26.0-35.0 [facility] MCHC 32.6 % Normal 32.0-34.5 [facility] MCV (RBC) [Entitic vol] 88.9 fL Normal 80.0-99.9 [facility] Platelet Count 321 E9/L Normal 130-450 [facility] Platelet mean volume (Bld) [Entitic vol] 10.6 fL Normal 7.0-12.0 [facility] RBC 4.94 E12/L Normal 3.50-5.50 [facility] RDW 13.7 fL Normal 11.5-15.0 [facility] WBC 7.0 E9/L Normal 4.5-11.5 [facility] Comprehensive Metabolic Pane l reflex Mgon 10-24-2022 Albumin [Mass/Vol] 4.6 g/dL Normal 3.5-5.2 [facility] ALP [Catalytic activity/Vol] 69 U/L Normal 35-104 [facility] ALT [Catalytic activity/Vol] 27 U/L Normal 0-32 [facility] Anion gap [Moles/Vol] 12 mmol/L Normal 7-16 [facility] AST [Catalytic activity/Vol] 16 U/L Normal 0-31 [facility] Bilirubin [Mass/Vol] 0.4 mg/dL Normal 0.0-1.2 [facility] Calcium [Mass/Vol] 9.3 mg/dL Normal 8.6-10.2 [facility] Chloride [Moles/Vol] 104 mmol/L Normal 98-107 [facility] CO2 [Moles/Vol] 24 mmol/L Normal 22-29 [facility] Creatinine [Mass/Vol] 0.6 mg/dL Normal 0.5-1.0 [facility] GFR Calculated >60 Normal >=60 [facility] Comment on above: Result Comment: Dion silvermanc [...] Glucose [Mass/Vol] 79 mg/dL Normal 74-99 [facility] Magnesium [Moles/Vol] 4.3 mmol/L Normal 3.5-5.0 [facility] Protein [Mass/Vol] 7.6 g/dL Normal 6.4-8.3 [facility] Sodium [Moles/Vol] 140 mmol/L Normal 132-146 [facility] Urea nitrogen [Mass/Vol] 13 mg/dL Normal 6-20 [facility] Comprehensive metabolic 2000 panelon 10-24-2022 Potassium [Moles/Vol] 4.3 mmol/L 3.5 - 5.0 mmol/L [facility] Albumin [Mass/Vol] 4.6 g/dL 3.5 - 5.2 g/dL [facility] ALP [Catalytic activity/Vol] 69 U/L 35 - 104 U/L [facility] ALT [Catalytic activity/Vol] 27 U/L 0 - 32 U/L [facility] Anion gap [Moles/Vol] 12 mmol/L 7 - 16 mmol/L [facility] AST [Catalytic activity/Vol] 16 U/L 0 - 31 U/L [facility] Bilirubin [Mass/Vol] 0.4 mg/dL 0.0 - 1 .2 mg/dL [facility] Calcium [Mass/Vol] 9.3 mg/dL 8.6 - 10. 2 mg/dL [facility] Chloride [Moles/Vol] 104 mmol/L 98 - 10 7 mmol/L [facility] CO2 [Moles/Vol] 24 mmol/L 22 - 29 mmol/L [facility] Creatinine [Mass/Vol] 0.6 mg/dL 0.5 - 1.0 mg/dL [facility] GFR/1.73 sq M.predicted among non-blacks MDRD (S/P/Bld) [Vol rate/Area] mL/min/1.73 60 - PINF mL/min/1.73 [facility] Comment on above: Pediatric calculator link [...] 79 mg/dL 74 - 99 mg/dL [facility] Potassium [Moles/Vol] 4.3 mmol/L 3.5 - 5.0 mmol/L [facility] Protein [Mass/Vol] 7.6 g/dL 6.4 - 8.3 g/dL [facility] Sodium [Moles/Vol] 140 mmol/L 132 - 146 mmol/L [facility] Urea nitrogen [Mass/Vol] 13 mg/dL 6 - 20 mg/dL [facility] ACT PARTIAL THROMBO TIMEon 0 - ACT PARTIAL THROMBO TIME 30.4 SECONDS Normal 20.0-32.1 [facility] Comment on above: Result Comment: APTT THERAPEUTIC RANGE = 43.6 TO 68.4 SECONDS Performed By: #### V ITB1, ZINC #### [facility] [address] [place] [address] #### B12, FOL, CMP, PREALB, ANDREZ, CBCD #### [facility] [address] [place] [address] CBC with DIFFERENTIALon 04-0 Basophils (Bld) [#/Vol] 0.0 10*3/uL Normal 0.0-0.1 [facility] Comment on above: Performed By: #### V ITB1, ZINC #### [facility] [address] [place] [address] #### B12, FOL, CMP, PREALB, ANDREZ, CBCD #### [facility] [address] [place] [address] Basophils/100 WBC (Bld) 0.5 % Normal 0.0-1.0 [facility] Comment on above: Performed By: #### V ITB1, ZINC #### [facility] [address] [place] [address] #### B12, FOL, CMP, PREALB, ANDREZ, CBCD #### [facility] [address] [place] [id number] Eosinophils (Bld) [#/Vol] 0.3 10*3/uL Normal 0.0-0.4 [facility] Comment on above: Performed By: #### V ITB1, ZINC #### [facility] [address] [place] [address] #### B12, FOL, CMP, PREALB, ANDREZ, CBCD #### [facility] [address] [place] [address] 05169 Eosinophils/100 WBC (Bld) 4.1 % High 1.0-4.0 [facility] Comment on above: Performed By: #### V ITB1, ZINC #### [facility] [address] [place] [address] #### B12, FOL, CMP, PREALB, ANDREZ, CBCD #### [facility] [address] [place] [address] [phone] Hematocrit (Bld) [Volume fraction] 40.6 % Normal 37.0-47.0 [facility] Comment on above: Performed By: #### V ITB1, ZINC #### [facility] [address] [place] [address] #### B12, FOL, CMP, PREALB, ANDREZ, CBCD #### [facility] [address] [place] [address] 25751 Hemoglobin (Bld) [Mass/Vol] 13.2 g/dL Normal 12.0-16.0 [facility] Comment on above: Performed By: #### V ITB1, ZINC #### [facility] [address] [place] [address] #### B12, FOL, CMP, PREALB, ANDREZ, CBCD #### [facility] [address] [place] [address] IG # 0.0 10*3/uL Normal 0.0-0.1 [facility] Comment on above: Performed By: #### V ITB1, ZINC #### [facility] [address] [place] [address] #### B12, FOL, CMP, PREALB, ANDREZ, CBCD #### [facility] [address] [place] [address] 12165 IG % 0.5 % Normal 0.0-1.0 [facility] Comment on above: Performed By: #### V ITB1, ZINC #### [facility] [address] [place] [address] #### B12, FOL, CMP, PREALB, ANDREZ, CBCD #### [facility] [address] [place] [address] 09021 Lymphocytes (Bld) [#/Vol] 3.2 10*3/uL Normal 1.3-4.4 [facility] Comment on above: Performed By: #### V ITB1, ZINC #### [facility] [address] [place] [address] #### B12, FOL, CMP, PREALB, ANDREZ, CBCD #### [facility] [address] [place] [address] 85865 Lymphocytes/100 WBC (Bld) 41.8 % High 27.0-41.0 [facility] Comment on above: Performed By: #### V ITB1, ZINC #### [facility] [address] [place] [address] #### B12, FOL, CMP, PREALB, ANDREZ, CBCD #### [facility] [address] [place] [address] 16709 MCV (RBC) [Entitic vol] 88.6 fL Normal 81.0-99.0 [facility] Comment on above: Performed By: #### V ITB1, ZINC #### [facility] [address] [place] [address] #### B12, FOL, CMP, PREALB, ANDREZ, CBCD #### [facility] [address] [place] [address] 83003 MEAN CORPUSCULAR HGB 28.8 pg Normal 27.0-31.0 [facility] Comment on above: Performed By: #### V ITB1, ZINC #### [facility] [address] [place] [address] #### B12, FOL, CMP, PREALB, ANDREZ, CBCD #### [facility] [address] [place] [address] 66977 MEAN CORPUSCULAR HGB CONC 32.5 g/dl Low 33.0-37.0 [facility] Comment on above: Performed By: #### V ITB1, ZINC #### [facility] [address] [place] [address] #### B12, FOL, CMP, PREALB, ANDREZ, CBCD #### [facility] [address] [place] [address] 26691 Monocytes (Bld) [#/Vol] 0.4 10*3/uL Normal 0.1-1.0 [facility] Comment on above: Performed By: #### V ITB1, ZINC #### [facility] [address] [place] [address] #### B12, FOL, CMP, PREALB, ANDREZ, CBCD #### [facility] [address] [place] [address] 04685 Monocytes/100 WBC (Bld) 5.1 % Normal 3.0-9.0 [facility] Comment on above: Performed By: #### V ITB1, ZINC #### [facility] [address] [place] [address] #### B12, FOL, CMP, PREALB, ANDREZ, CBCD #### [facility] [address] [place] [address] 01914 Neutrophils (Bld) [#/Vol] 3.7 10*3/uL Normal 2.3-7.9 [facility] Comment on above: Performed By: #### V ITB1, ZINC #### [facility] [address] [place] [address] #### B12, FOL, CMP, PREALB, ANDREZ, CBCD #### [facility] [address] [place] [address] 02899 Neutrophils/100 WBC (Bld) 48.0 % Normal 47.0-73.0 [facility] Comment on above: Performed By: #### V ITB1, ZINC #### [facility] [address] [place] [address] #### B12, FOL, CMP, PREALB, ANDREZ, CBCD #### [facility] [address] [place] [address] 86450 NUCLEATED RED BLOOD CELL 0.0 10*3/uL Normal 0.0-0.0 [facility] Comment on above: Performed By: #### V ITB1, ZINC #### [facility] [address] [place] [address] #### B12, FOL, CMP, PREALB, ANDREZ, CBCD #### [facility] [address] [place] [address] 37411 NUCLEATED RED BLOOD CELL 0.0 % Normal 0.0-0.0 [facility] Comment on above: Performed By: #### V ITB1, ZINC #### [facility] [address] [place] [address] #### B12, FOL, CMP, PREALB, ANDREZ, CBCD #### [facility] [address] [place] [address] 96563 PLATELET COUNT AUTOMATED 300 10*3/uL Normal 130-400 [facility] Comment on above: Performed By: #### V ITB1, ZINC #### [facility] [address] [place] [address] #### B12, FOL, CMP, PREALB, ANDREZ, CBCD #### [facility] [address] [place] [address] Platelet mean volume (Bld) [Entitic vol] 10.7 fL Normal 9.6-12.3 [facility] Comment on above: Performed By: #### V ITB1, ZINC #### [facility] [address] [place] [address] #### B12, FOL, CMP, PREALB, ANDREZ, CBCD #### [facility] [address] [place] [address] 77733 RBC (Bld) [#/Vol] 4.58 10*6/uL Normal 4.10-5.10 [facility] Comment on above: Performed By: #### V ITB1, ZINC #### [facility] [address] [place] [address] #### B12, FOL, CMP, PREALB, ANDREZ, CBCD #### [facility] [address] [place] [address] RED CELL DISTRI WIDTH 13.3 % Normal 0-14.5 [facility] Comment on above: Performed By: #### V ITB1, ZINC #### [facility] [address] [place] [address] #### B12, FOL, CMP, PREALB, ANDREZ, CBCD #### [facility] [address] [place] [address] 64542 WBC (Bld) [#/Vol] 7.6 10*3/uL Normal 4.8-10.8 [facility] Comment on above: Performed By: #### V ITB1, ZINC #### [facility] [address] [place] [address] #### B12, FOL, CMP, PREALB, ANDREZ, CBCD #### [facility] [address] [place] [address] COMPREHENSIVE METABOLIC PANE Evan 10-04-2022 Albumin [Mass/Vol] 3.8 g/dL Normal 3.4-5.0 [facility] Comment on above: Performed By: #### V ITB1, ZINC #### [facility] [address] [place] [address] #### B12, FOL, CMP, PREALB, ANDREZ, CBCD #### [facility] [address] [place] [address] ALP [Catalytic activity/Vol] 63 U/L Normal 46-116 [facility] Comment on above: Performed By: #### V ITB1, ZINC #### [facility] [address] [place] [address] #### B12, FOL, CMP, PREALB, ANDREZ, CBCD #### [facility] [address] [place] [address] 35571 ALT [Catalytic activity/Vol] 18 U/L Normal 10-49 [facility] Comment on above: Performed By: #### V ITB1, ZINC #### [facility] [address] [place] [address] #### B12, FOL, CMP, PREALB, ANDREZ, CBCD #### [facility] [address] [place] [address] 36692 AST [Catalytic activity/Vol] 15 U/L Normal 0-34 [facility] Comment on above: Performed By: #### V ITB1, ZINC #### [facility] [address] [place] [address] #### B12, FOL, CMP, PREALB, ANDREZ, CBCD #### [facility] [address] [place] [address] 65876 Bilirubin [Mass/Vol] 0.3 mg/dL Normal 0.3-1.2 [facility] Comment on above: Performed By: #### V ITB1, ZINC #### [facility] [address] [place] [address] #### B12, FOL, CMP, PREALB, ANDREZ, CBCD #### [facility] [address] [place] [address] 04678 CALCIUM,TOTAL 9.2 md/dL Normal 8.7-10.4 [facility] Comment on above: Performed By: #### V ITB1, ZINC #### [facility] [address] [place] [address] #### B12, FOL, CMP, PREALB, ANDREZ, CBCD #### [facility] [address] [place] [address] Chloride [Moles/Vol] 105 mmol/L Normal 98-107 [facility] Comment on above: Performed By: #### V ITB1, ZINC #### [facility] [address] [place] [address] #### B12, FOL, CMP, PREALB, ANDREZ, CBCD #### [facility] [address] [place] [address] CO2 [Moles/Vol] 27 mmol/L Normal 20-31 [facility] Comment on above: Performed By: #### V ITB1, ZINC #### [facility] [address] [place] [address] #### B12, FOL, CMP, PREALB, ANDREZ, CBCD #### [facility] [address] [place] [address] Creatinine [Mass/Vol] 0.61 mg/dL Normal 0.55-1.02 [facility] Comment on above: Performed By: #### V ITB1, ZINC #### [facility] [address] [place] [address] #### B12, FOL, CMP, PREALB, ANDREZ, CBCD #### [facility] [address] [place] [address] EST GLOM FILT > 60 Normal [facility] Comment on above: Result Comment: Result Units: [...] #### V ITB1, ZINC #### [facility] [address] [place] [address] #### B12, FOL, CMP, PREALB, ANDREZ, CBCD #### [facility] [address] [place] [address] ESTIMATED GLOM FILT RATE > 60 Normal [facility] Comment on above: Performed By: #### V ITB1, ZINC #### [facility] [address] [place] [address] #### B12, FOL, CMP, PREALB, ANDREZ, CBCD #### [facility] [address] [place] [address] 66311 Glucose [Mass/Vol] 87 mg/dL Normal 65-99 [facility] Comment on above: Performed By: #### V ITB1, ZINC #### [facility] [address] [place] [address] #### B12, FOL, CMP, PREALB, ANDREZ, CBCD #### [facility] [address] [place] [address] 92547 Potassium [Moles/Vol] 4.2 mmol/L Normal 3.4-5.1 [facility] Comment on above: Performed By: #### V ITB1, ZINC #### [facility] [address] [place] [address] #### B12, FOL, CMP, PREALB, ANDREZ, CBCD #### [facility] [address] [place] [address] 78570 Protein [Mass/Vol] 6.9 g/dL Normal 6.0-8.0 [facility] Comment on above: Performed By: #### V ITB1, ZINC #### [facility] [address] [place] [address] #### B12, FOL, CMP, PREALB, ANDREZ, CBCD #### [facility] [address] [place] [address] Sodium [Moles/Vol] 139 mmol/L Normal 136-145 [facility] Comment on above: Performed By: #### V ITB1, ZINC #### [facility] [address] [place] [address] #### B12, FOL, CMP, PREALB, ANDREZ, CBCD #### [facility] [address] [place] [address] Urea nitrogen [Mass/Vol] 14 mg/dL Normal 9-23 [facility] Comment on above: Performed By: #### V ITB1, ZINC #### [facility] [address] [place] [address] #### B12, FOL, CMP, PREALB, ANDREZ, CBCD #### [facility] [address] [place] [address] [id number] 10-04-2022 ESTIMATED AVERAGE GLUCOSE 100 Normal [facility] Comment on above: Performed By: #### V ITB1, ZINC #### [facility] [address] [place] [address] #### B12, FOL, CMP, PREALB, ANDREZ, CBCD #### [facility] [address] [place] [address] HbA1c (Bld) [Mass fraction] 5.1 % Normal 4.8-5.6 [facility] Comment on above: Result Comment: Standarization of method based on National Glycohemoglobin Standardization Program (NGSP). HEMOGLOBIN A1c(%) DEGREE of GLUCOSE CONTROL 5.7-6.4% Prediabetes range >6.4% Diagnosis of Diabetes <7% Glycemic control for adults with Diabetes Performed By: #### V ITB1, ZINC #### [facility] [address] [place] [address] #### B12, FOL, CMP, PREALB, ANDREZ, CBCD #### [facility] [address] [place] [address] LIPID PANEL CHOLESTEROL/HDLo n 10-04-2022 Cholesterol [Mass/Vol] 122 mg/dL Normal <200 [facility] Comment on above: Performed By: #### V ITB1, ZINC #### [facility] [address] [place] [address] #### B12, FOL, CMP, PREALB, ANDREZ, CBCD #### [facility] [address] [place] [address] 75785 Cholesterol in HDL [Mass/Vol] 28 mg/dL Low 40-60 [facility] Comment on above: Performed By: #### V ITB1, ZINC #### [facility] [address] [place] [address] #### B12, FOL, CMP, PREALB, ANDREZ, CBCD #### [facility] [address] [place] [address] 72634 Cholesterol in LDL [Mass/Vol] 55 mg/dL Normal 9-159 [facility] Comment on above: Performed By: #### V ITB1, ZINC #### [facility] [address] [place] [address] #### B12, FOL, CMP, PREALB, ANDREZ, CBCD #### [facility] [address] [place] [address] 66775 Cholesterol.total/Chol esterol in HDL [Mass ratio] 4.4 {ratio} Normal [facility] Comment on above: Performed By: #### V ITB1, ZINC #### [facility] [address] [place] [address] #### B12, FOL, CMP, PREALB, ANDREZ, CBCD #### [facility] [address] [place] [address] Triglyceride [Mass/Vol] 196 mg/dL High <150 [facility] Comment on above: Result Comment: TRIGLYCERIDE RISK ASSESSMENT: 150-199 mg/dl BORDERLINE HIGH >200 mg//dl HIGH . Performed By: #### V ITB1, ZINC #### [facility] [address] [place] [address] #### B12, FOL, CMP, PREALB, ANDREZ, CBCD #### [facility] [address] [place] [address] VLDL CHOLESTEROL 39 mg/dL Normal 6-40 [facility] Comment on above: Performed By: #### V ITB1, ZINC #### [facility] [address] [place] [address] #### B12, FOL, CMP, PREALB, ANDREZ, CBCD #### [facility] [address] [place] [address] THROAT CULTUREon 08-15-2022 Throat culture THROAT CULTURE NORMAL ARIN Normal [facility] Comment on above: Performed By: #### V ITB1, ZINC #### [facility] [address] [place] [address] #### B12, FOL, CMP, PREALB, ANDREZ, CBCD #### [facility] [address] [place] [address] NOVL CORONAVIRUS NAAon 08-14 SARS-CoV-2 (COVID-19) RNA SUJATA+probe Ql (Unsp spec) Detected Abnormal Not Detected [facility] Comment on above: Result Comment: Evelyn ents who have a positive COVID-19 test result may now have treatment options. Treatment options are available for patients with mild to moderate symptoms and for hospitalized patients. Visit our website at [email or web address] for resources and information. This nucleic acid amplification test was developed and its performance characteristics determined by [employer]. Nucleic acid amplification tests include RT- [...] #### V ITB1, ZINC #### [facility] [address] [place] [address] #### B12, FOL, CMP, PREALB, ANDREZ, CBCD #### [facility] [address] [place] [address] 53662 CBC with DIFFERENTIALon 08-01 Basophils (Bld) [#/Vol] 0.0 10*3/uL Normal 0.0-0.1 [facility] Comment on above: Performed By: #### V ITB1, ZINC #### [facility] [address] [place] [address] #### B12, FOL, CMP, PREALB, ANDREZ, CBCD #### [facility] [address] [place] [address] 32355 Basophils/100 WBC (Bld) 0.5 % Normal 0.0-1.0 [facility] Comment on above: Performed By: #### V ITB1, ZINC #### [facility] [address] [place] [address] #### B12, FOL, CMP, PREALB, ANDREZ, CBCD #### [facility] [address] [place] [address] 81740 Eosinophils (Bld) [#/Vol] 0.2 10*3/uL Normal 0.0-0.4 [facility] Comment on above: Performed By: #### V ITB1, ZINC #### [facility] [address] [place] [address] #### B12, FOL, CMP, PREALB, ANDREZ, CBCD #### [facility] [address] [place] [address] 06650 Eosinophils/100 WBC (Bld) 4.2 % High 1.0-4.0 [facility] Comment on above: Performed By: #### V ITB1, ZINC #### [facility] [address] [place] [address] #### B12, FOL, CMP, PREALB, ANDREZ, CBCD #### [facility] [address] [place] [address] 64903 Hematocrit (Bld) [Volume fraction] 43.8 % Normal 37.0-47.0 [facility] Comment on above: Performed By: #### V ITB1, ZINC #### [facility] [address] [place] [address] #### B12, FOL, CMP, PREALB, ANDREZ, CBCD #### [facility] [address] [place] [address] 64315 Hemoglobin (Bld) [Mass/Vol] 14.0 g/dL Normal 12.0-16.0 [facility] Comment on above: Performed By: #### V ITB1, ZINC #### [facility] [address] [place] [address] #### B12, FOL, CMP, PREALB, ANDREZ, CBCD #### [facility] [address] [place] [address] 17134 IG # 0.1 10*3/uL Normal 0.0-0.1 [facility] Comment on above: Performed By: #### V ITB1, ZINC #### [facility] [address] [place] [address] #### B12, FOL, CMP, PREALB, ANDREZ, CBCD #### [facility] [address] [place] [address] 60416 IG % 1.1 % High 0.0-1.0 [facility] Comment on above: Performed By: #### V ITB1, ZINC #### [facility] [address] [place] [address] #### B12, FOL, CMP, PREALB, ANDREZ, CBCD #### [facility] [address] [place] [address] 92973 Lymphocytes (Bld) [#/Vol] 2.9 10*3/uL Normal 1.3-4.4 [facility] Comment on above: Performed By: #### V ITB1, ZINC #### [facility] [address] [place] [address] #### B12, FOL, CMP, PREALB, ANDREZ, CBCD #### [facility] [address] [place] [address] 72118 Lymphocytes/100 WBC (Bld) 51.5 % High 27.0-41.0 [facility] Comment on above: Performed By: #### V ITB1, ZINC #### [facility] [address] [place] [address] #### B12, FOL, CMP, PREALB, ANDREZ, CBCD #### [facility] [address] [place] [address] 36882 MCV (RBC) [Entitic vol] 88.8 fL Normal 81.0-99.0 [facility] Comment on above: Performed By: #### V ITB1, ZINC #### [facility] [address] [place] [address] #### B12, FOL, CMP, PREALB, ANDREZ, CBCD #### [facility] [address] [place] [address] 41022 MEAN CORPUSCULAR HGB 28.4 pg Normal 27.0-31.0 [facility] Comment on above: Performed By: #### V ITB1, ZINC #### [facility] [address] [place] [address] #### B12, FOL, CMP, PREALB, ANDREZ, CBCD #### [facility] [address] [place] [address] MEAN CORPUSCULAR HGB CONC 32.0 g/dl Low 33.0-37.0 [facility] Comment on above: Performed By: #### V ITB1, ZINC #### [facility] [address] [place] [address] #### B12, FOL, CMP, PREALB, ANDREZ, CBCD #### [facility] [address] [place] [address] Monocytes (Bld) [#/Vol] 0.4 10*3/uL Normal 0.1-1.0 [facility] Comment on above: Performed By: #### V ITB1, ZINC #### [facility] [address] [place] [address] #### B12, FOL, CMP, PREALB, ANDREZ, CBCD #### [facility] [address] [place] [address] 43912 Monocytes/100 WBC (Bld) 7.0 % Normal 3.0-9.0 [facility] Comment on above: Performed By: #### V ITB1, ZINC #### [facility] [address] [place] [address] #### B12, FOL, CMP, PREALB, ANDREZ, CBCD #### [facility] [address] [place] [address] 64177 Neutrophils (Bld) [#/Vol] 2.0 10*3/uL Low 2.3-7.9 [facility] Comment on above: Performed By: #### V ITB1, ZINC #### [facility] [address] [place] [address] #### B12, FOL, CMP, PREALB, ANDREZ, CBCD #### [facility] [address] [place] [address] 03926 Neutrophils/100 WBC (Bld) 35.7 % Low 47.0-73.0 [facility] Comment on above: Performed By: #### V ITB1, ZINC #### [facility] [address] [place] [address] #### B12, FOL, CMP, PREALB, ANDREZ, CBCD #### [facility] [address] [place] [address] 30631 NUCLEATED RED BLOOD CELL 0.0 10*3/uL Normal 0.0-0.0 [facility] Comment on above: Performed By: #### V ITB1, ZINC #### [facility] [address] [place] [address] #### B12, FOL, CMP, PREALB, ANDREZ, CBCD #### [facility] [address] [place], [place] [address] NUCLEATED RED BLOOD CELL 0.0 % Normal 0.0-0.0 [facility] Comment on above: Performed By: #### V ITB1, ZINC #### [facility] [address] [place] [address] #### B12, FOL, CMP, PREALB, ANDREZ, CBCD #### [facility] [address] [place] [address] 92422 PLATELET COUNT AUTOMATED 277 10*3/uL Normal 130-400 [facility] Comment on above: Performed By: #### V ITB1, ZINC #### [facility] [address] [place] [address] #### B12, FOL, CMP, PREALB, ANDREZ, CBCD #### [facility] [address] [place] [address] 56239 Platelet mean volume (Bld) [Entitic vol] 10.1 fL Normal 9.6-12.3 [facility] Comment on above: Performed By: #### V ITB1, ZINC #### [facility] [address] [place] [address] #### B12, FOL, CMP, PREALB, ANDREZ, CBCD #### [facility] [address] [place] [address] 47224 RBC (Bld) [#/Vol] 4.93 10*6/uL Normal 4.10-5.10 [facility] Comment on above: Performed By: #### V ITB1, ZINC #### [facility] [address] [place] [address] #### B12, FOL, CMP, PREALB, ANDREZ, CBCD #### [facility] [address] [place] [address] RED CELL DISTRI WIDTH 13.6 % Normal 0-14.5 [facility] Comment on above: Performed By: #### V ITB1, ZINC #### [facility] [address] [place] [address] #### B12, FOL, CMP, PREALB, ANDREZ, CBCD #### [facility] [address] [place] [address] WBC (Bld) [#/Vol] 5.7 10*3/uL Normal 4.8-10.8 [facility] Comment on above: Performed By: #### V ITB1, ZINC #### [facility] [address] [place] [address] #### B12, FOL, CMP, PREALB, ANDREZ, CBCD #### [facility] [address] [place] [address] 33858 CHEST (2 V)on 08-13-2022 CRCXR Name: BATOOL KINGSLEY Phys: KAELA ARELLANO CNP : 2000 Age: 22 Sex: F Acct: [id number] Loc: RAD Exam Date: 08/13/2022 Status: REG CLI Radiology No: [id number] Unit No: [id number] EXAM# TYPE/EXAM RESULT [id number] RAD/CHEST (2 V) SEE REPORT INDICATION: Stuffy [...] CC: Technologist: WIN CHRISTIE Transcribed Date/Time: 08/13/2022 (2465) Auto Repair Technician: OSCAR Printed Date/Time: 08/13/2022 (3119) PAGE 1 Signed Report Normal [facility] COMPREHENSIVE METABOLIC PANE Evan 08-13-2022 Albumin [Mass/Vol] 3.7 g/dL Normal 3.4-5.0 [facility] Comment on above: Performed By: #### V ITB1, ZINC #### [facility] [address] [place] [address] #### B12, FOL, CMP, PREALB, ANDREZ, CBCD #### [facility] [address] [place] [address] ALP [Catalytic activity/Vol] 56 U/L Normal 46-116 [facility] Comment on above: Performed By: #### V ITB1, ZINC #### [facility] [address] [place] [address] #### B12, FOL, CMP, PREALB, ANDREZ, CBCD #### [facility] [address] [place] [address] 61962 ALT [Catalytic activity/Vol] 21 U/L Normal 10-49 [facility] Comment on above: Performed By: #### V ITB1, ZINC #### [facility] [address] [place] [address] #### B12, FOL, CMP, PREALB, ANDREZ, CBCD #### [facility] [address] [place] [address] AST [Catalytic activity/Vol] 23 U/L Normal 0-34 [facility] Comment on above: Performed By: #### V ITB1, ZINC #### [facility] [address] [place] [address] #### B12, FOL, CMP, PREALB, ANDREZ, CBCD #### [facility] [address] [place] [address] Bilirubin [Mass/Vol] mg/dL Low 0.3-1.2 [facility] Comment on above: Performed By: #### V ITB1, ZINC #### [facility] [address] [place] [address] #### B12, FOL, CMP, PREALB, ANDREZ, CBCD #### [facility] [address] [place] [address]376 CALCIUM,TOTAL 9.2 md/dL Normal 8.7-10.4 [facility] Comment on above: Performed By: #### V ITB1, ZINC #### [facility] [address] [place] [address] #### B12, FOL, CMP, PREALB, ANDREZ, CBCD #### [facility] [address] [place] [address] 19567 Chloride [Moles/Vol] 105 mmol/L Normal 98-107 [facility] Comment on above: Performed By: #### V ITB1, ZINC #### [facility] [address] [place] [address] #### B12, FOL, CMP, PREALB, ANDREZ, CBCD #### [facility] [address] [place] [address] 24655 CO2 [Moles/Vol] 25 mmol/L Normal 20-31 [facility] Comment on above: Performed By: #### V ITB1, ZINC #### [facility] [address] [place] [address] #### B12, FOL, CMP, PREALB, ANDREZ, CBCD #### [facility] [address] [place] [address] 42367 Creatinine [Mass/Vol] 0.53 mg/dL Low 0.55-1.02 [facility] Comment on above: Performed By: #### V ITB1, ZINC #### [facility] [address] [place] [address] #### B12, FOL, CMP, PREALB, ANDREZ, CBCD #### [facility] [address] [place] [address] EST GLOM FILT > 60 Normal [facility] Comment on above: Result Comment: Result Units: [...] #### V ITB1, ZINC #### [facility] [address] [place] [address] #### B12, FOL, CMP, PREALB, ANDREZ, CBCD #### [facility] [address] [place] [address] ESTIMATED GLOM FILT RATE > 60 Normal [facility] Comment on above: Performed By: #### V ITB1, ZINC #### [facility] [address] [place] [address] #### B12, FOL, CMP, PREALB, ANDREZ, CBCD #### [facility] [address] [place] [address] Glucose [Mass/Vol] 81 mg/dL Normal 65-99 [facility] Comment on above: Performed By: #### V ITB1, ZINC #### [facility] [address] [place] [address] #### B12, FOL, CMP, PREALB, ANDREZ, CBCD #### [facility] [address] [place] [address] Potassium [Moles/Vol] 4.5 mmol/L Normal 3.4-5.1 [facility] Comment on above: Performed By: #### V ITB1, ZINC #### [facility] [address] [place] [address] #### B12, FOL, CMP, PREALB, ANDREZ, CBCD #### [facility] [address] [place] [address] 25959 Protein [Mass/Vol] 7.0 g/dL Normal 6.0-8.0 [facility] Comment on above: Performed By: #### V ITB1, ZINC #### [facility] [address] [place] [address] #### B12, FOL, CMP, PREALB, ANDREZ, CBCD #### [facility] [address] [place], [place] [address] Sodium [Moles/Vol] 138 mmol/L Normal 136-145 [facility] Comment on above: Performed By: #### V ITB1, ZINC #### [facility] [address] [place] [address] #### B12, FOL, CMP, PREALB, ANDREZ, CBCD #### [facility] [address] [place] [address] 88346 Urea nitrogen [Mass/Vol] 7 mg/dL Low 9-23 [facility] Comment on above: Performed By: #### V ITB1, ZINC #### [facility] [address] [place] [address] #### B12, FOL, CMP, PREALB, ANDREZ, CBCD #### [facility] [address] [place] [address] 80385 ESR (Sed Rate)on 08-13-2022 ESR (Bld) [Velocity] 20 mm/h Normal 0-20 [facility] Comment on above: Performed By: #### V ITB1, ZINC #### [facility] [address] [place] [address] #### B12, FOL, CMP, PREALB, ANDREZ, CBCD #### [facility] [address] [place] [address] 27936 CBC with DIFFERENTIALon 01-3 Basophils (Bld) [#/Vol] 0.1 10*3/uL Normal 0.0-0.1 [facility] Comment on above: Performed By: #### C MP, TSH, LIPPAN, HBA1C, CBCD, INS #### [facility] [address] [place] [address] Basophils/100 WBC (Bld) 0.7 % Normal 0.0-1.0 [facility] Comment on above: Performed By: #### C MP, TSH, LIPPAN, HBA1C, CBCD, INS #### [facility] [address] [place] [address] 12426 Eosinophils (Bld) [#/Vol] 0.3 10*3/uL Normal 0.0-0.4 [facility] Comment on above: Performed By: #### C MP, TSH, LIPPAN, HBA1C, CBCD, INS #### [facility] [address] [place] [address] 10024 Eosinophils/100 WBC (Bld) 4.3 % High 1.0-4.0 [facility] Comment on above: Performed By: #### C MP, TSH, LIPPAN, HBA1C, CBCD, INS #### [facility] [address] [place] [address]2325 Hematocrit (Bld) [Volume fraction] 43.7 % Normal 37.0-47.0 [facility] Comment on above: Performed By: #### C MP, TSH, LIPPAN, HBA1C, CBCD, INS #### [facility] [address] [place] [address] 18548 Hemoglobin (Bld) [Mass/Vol] 13.9 g/dL Normal 12.0-16.0 [facility] Comment on above: Performed By: #### C MP, TSH, LIPPAN, HBA1C, CBCD, INS #### [facility] [address] [place] [address] 14294 IG # 0.0 10*3/uL Normal 0.0-0.1 [facility] Comment on above: Performed By: #### C MP, TSH, LIPPAN, HBA1C, CBCD, INS #### [facility] [address] [place] [address] IG % 0.4 % Normal 0.0-1.0 [facility] Comment on above: Performed By: #### C MP, TSH, LIPPAN, HBA1C, CBCD, INS #### [facility] [address] [place] [address] 06539 Lymphocytes (Bld) [#/Vol] 3.2 10*3/uL Normal 1.3-4.4 [facility] Comment on above: Performed By: #### C MP, TSH, LIPPAN, HBA1C, CBCD, INS #### [facility] [address] [place] [address] 14030 Lymphocytes/100 WBC (Bld) 42.7 % High 27.0-41.0 [facility] Comment on above: Performed By: #### C MP, TSH, LIPPAN, HBA1C, CBCD, INS #### [facility] [address] [place] [address] 10324 MCV (RBC) [Entitic vol] 90.3 fL Normal 81.0-99.0 [facility] Comment on above: Performed By: #### C MP, TSH, LIPPAN, HBA1C, CBCD, INS #### [facility] [address] [place] [address] 23646 MEAN CORPUSCULAR HGB 28.7 pg Normal 27.0-31.0 [facility] Comment on above: Performed By: #### C MP, TSH, LIPPAN, HBA1C, CBCD, INS #### [facility] [address] [place] [address] 24339 MEAN CORPUSCULAR HGB CONC 31.8 g/dl Low 33.0-37.0 [facility] Comment on above: Performed By: #### C MP, TSH, LIPPAN, HBA1C, CBCD, INS #### [facility] [address] [place] [address] 61236 Monocytes (Bld) [#/Vol] 0.4 10*3/uL Normal 0.1-1.0 [facility] Comment on above: Performed By: #### C MP, TSH, LIPPAN, HBA1C, CBCD, INS #### [facility] [address] [place] [address] Monocytes/100 WBC (Bld) 5.4 % Normal 3.0-9.0 [facility] Comment on above: Performed By: #### C MP, TSH, LIPPAN, HBA1C, CBCD, INS #### [facility] [address] [place] [address] 84295 Neutrophils (Bld) [#/Vol] 3.4 10*3/uL Normal 2.3-7.9 [facility] Comment on above: Performed By: #### C MP, TSH, LIPPAN, HBA1C, CBCD, INS #### [facility] [address] [place] [address] 38914 Neutrophils/100 WBC (Bld) 46.5 % Low 47.0-73.0 [facility] Comment on above: Performed By: #### C MP, TSH, LIPPAN, HBA1C, CBCD, INS #### [facility] [address] [place] [address] 78452 NUCLEATED RED BLOOD CELL 0.0 10*3/uL Normal 0.0-0.0 [facility] Comment on above: Performed By: #### C MP, TSH, LIPPAN, HBA1C, CBCD, INS #### [facility] [address] [place] [address] 46414 NUCLEATED RED BLOOD CELL 0.0 % Normal 0.0-0.0 [facility] Comment on above: Performed By: #### C MP, TSH, LIPPAN, HBA1C, CBCD, INS #### [facility] [address] [place] [address] 14777 PLATELET COUNT AUTOMATED 309 10*3/uL Normal 130-400 [facility] Comment on above: Performed By: #### C MP, TSH, LIPPAN, HBA1C, CBCD, INS #### [facility] [address] [place] [address] Platelet mean volume (Bld) [Entitic vol] 10.3 fL Normal 9.6-12.3 [facility] Comment on above: Performed By: #### C MP, TSH, LIPPAN, HBA1C, CBCD, INS #### [facility] [address] [place] [address] 80938 RBC (Bld) [#/Vol] 4.84 10*6/uL Normal 4.10-5.10 [facility] Comment on above: Performed By: #### C MP, TSH, LIPPAN, HBA1C, CBCD, INS #### [facility] [address] [place] [address] 45191 RED CELL DISTRI WIDTH 13.5 % Normal 0-14.5 [facility] Comment on above: Performed By: #### C MP, TSH, LIPPAN, HBA1C, CBCD, INS #### [facility] [address] [place] [address] WBC (Bld) [#/Vol] 7.4 10*3/uL Normal 4.8-10.8 [facility] Comment on above: Performed By: #### C MP, TSH, LIPPAN, HBA1C, CBCD, INS #### [facility] [address] [place] [address] 68827 COMPREHENSIVE METABOLIC PANE Evan 07-31-2022 Albumin [Mass/Vol] 3.9 g/dL Normal 3.4-5.0 [facility] Comment on above: Performed By: #### V ITB1, ZINC #### [facility] [address] [place] [address] #### B12, FOL, CMP, PREALB, ANDREZ, CBCD #### [facility] [address] [place] [address] ALP [Catalytic activity/Vol] 60 U/L Normal 46-116 [facility] Comment on above: Performed By: #### V ITB1, ZINC #### [facility] [address] [place] [address] #### B12, FOL, CMP, PREALB, ANDREZ, CBCD #### [facility] [address] [place] [address] 33001 ALT [Catalytic activity/Vol] 23 U/L Normal 10-49 [facility] Comment on above: Performed By: #### V ITB1, ZINC #### [facility] [address] [place] [address] #### B12, FOL, CMP, PREALB, ANDREZ, CBCD #### [facility] [address] [place] [address] 20588 AST [Catalytic activity/Vol] 17 U/L Normal 0-34 [facility] Comment on above: Performed By: #### V ITB1, ZINC #### [facility] [address] [place] [address] #### B12, FOL, CMP, PREALB, ANDREZ, CBCD #### [facility] [address] [place] [address] 94024 Bilirubin [Mass/Vol] 0.3 mg/dL Normal 0.3-1.2 [facility] Comment on above: Performed By: #### V ITB1, ZINC #### [facility] [address] [place] [address] #### B12, FOL, CMP, PREALB, ANDREZ, CBCD #### [facility] [address] [place] [address] 55211 CALCIUM,TOTAL 9.6 md/dL Normal 8.7-10.4 [facility] Comment on above: Performed By: #### V ITB1, ZINC #### [facility] [address] [place] [address] #### B12, FOL, CMP, PREALB, ANDREZ, CBCD #### [facility] [address] [place] [address] 31528 Chloride [Moles/Vol] 102 mmol/L Normal 98-107 [facility] Comment on above: Performed By: #### V ITB1, ZINC #### [facility] [address] [place] [address] #### B12, FOL, CMP, PREALB, ANDREZ, CBCD #### [facility] [address] [place] [address] CO2 [Moles/Vol] 27 mmol/L Normal 20-31 [facility] Comment on above: Performed By: #### V ITB1, ZINC #### [facility] [address] [place] [address] #### B12, FOL, CMP, PREALB, ANDREZ, CBCD #### [facility] [address] [place] [address] 05854 Creatinine [Mass/Vol] 0.58 mg/dL Normal 0.55-1.02 [facility] Comment on above: Performed By: #### V ITB1, ZINC #### [facility] [address] [place] [address] #### B12, FOL, CMP, PREALB, ANDREZ, CBCD #### [facility] [address] [place] [address] 39130 EST GLOM FILT > 60 Normal [facility] Comment on above: Result Comment: Result Units: [...] #### V ITB1, ZINC #### [facility] [address] [place] [address] #### B12, FOL, CMP, PREALB, ANDREZ, CBCD #### [facility] [address] [place] [address] ESTIMATED GLOM FILT RATE > 60 Normal [facility] Comment on above: Performed By: #### V ITB1, ZINC #### [facility] [address] [place] [address] #### B12, FOL, CMP, PREALB, ANDREZ, CBCD #### [facility] [address] [place] [address] Glucose [Mass/Vol] 73 mg/dL Normal 65-99 [facility] Comment on above: Performed By: #### V ITB1, ZINC #### [facility] [address] [place] [address] #### B12, FOL, CMP, PREALB, ANDREZ, CBCD #### [facility] [address] [place] [address] Potassium [Moles/Vol] 4.2 mmol/L Normal 3.4-5.1 [facility] Comment on above: Performed By: #### V ITB1, ZINC #### [facility] [address] [place] [address] #### B12, FOL, CMP, PREALB, ANDREZ, CBCD #### [facility] [address] [place] [address] 36888 Protein [Mass/Vol] 7.2 g/dL Normal 6.0-8.0 [facility] Comment on above: Performed By: #### V ITB1, ZINC #### [facility] [address] [place] [address] #### B12, FOL, CMP, PREALB, ANDREZ, CBCD #### [facility] [address] [place] [address] Sodium [Moles/Vol] 137 mmol/L Normal 136-145 [facility] Comment on above: Performed By: #### V ITB1, ZINC #### [facility] [address] [place] [address] #### B12, FOL, CMP, PREALB, ANDREZ, CBCD #### [facility] [address] [place] [address] Urea nitrogen [Mass/Vol] 11 mg/dL Normal 9-23 [facility] Comment on above: Performed By: #### V ITB1, ZINC #### [facility] [address] [place] [address] #### B12, FOL, CMP, PREALB, ANDREZ, CBCD #### [facility] [address] [place] [address] [id number] 07-31-2022 ESTIMATED AVERAGE GLUCOSE 100 Normal [facility] Comment on above: Performed By: #### V ITB1, ZINC #### [facility] [address] [place] [address] #### B12, FOL, CMP, PREALB, ANDREZ, CBCD #### [facility] [address] [place] [address] HbA1c (Bld) [Mass fraction] 5.1 % Normal 4.8-5.6 [facility] Comment on above: Result Comment: Standarization of method based on National Glycohemoglobin Standardization Program (NGSP). HEMOGLOBIN A1c(%) DEGREE of GLUCOSE CONTROL 5.7-6.4% Prediabetes range >6.4% Diagnosis of Diabetes <7% Glycemic control for adults with Diabetes Performed By: #### V ITB1, ZINC #### [facility] [address] [place] [address] #### B12, FOL, CMP, PREALB, ANDREZ, CBCD #### [facility] [address] [place], [place] [address] INSULINon 07-31-2022 INSULIN 45.6 mU/L High 2.6-37.6 [facility] Comment on above: Performed By: #### V ITB1, ZINC #### [facility] [address] [place] [address] #### B12, FOL, CMP, PREALB, ANDREZ, CBCD #### [facility] [address] [place] [address] LIPID PANEL CHOLESTEROL/HDLo n 07-31-2022 Cholesterol [Mass/Vol] 170 mg/dL Normal <200 [facility] Comment on above: Performed By: #### V ITB1, ZINC #### [facility] [address] [place] [address] #### B12, FOL, CMP, PREALB, ANDREZ, CBCD #### [facility] [address] [place] [address] 25612 Cholesterol in HDL [Mass/Vol] 31 mg/dL Low 40-60 [facility] Comment on above: Performed By: #### V ITB1, ZINC #### [facility] [address] [place] [address] #### B12, FOL, CMP, PREALB, ANDREZ, CBCD #### [facility] [address] [place] [address] 99993 Cholesterol in LDL [Mass/Vol] 73 mg/dL Normal 9-159 [facility] Comment on above: Performed By: #### V ITB1, ZINC #### [facility] [address] [place] [address] #### B12, FOL, CMP, PREALB, ANDREZ, CBCD #### [facility] [address] [place] [address] 80639 Cholesterol.total/Chol esterol in HDL [Mass ratio] 5.5 {ratio} Normal [facility] Comment on above: Performed By: #### V ITB1, ZINC #### [facility] [address] [place] [address] #### B12, FOL, CMP, PREALB, ANDREZ, CBCD #### [facility] [address] [place] [address] Triglyceride [Mass/Vol] 328 mg/dL High <150 [facility] Comment on above: Result Comment: TRIGLYCERIDE RISK ASSESSMENT: 150-199 mg/dl BORDERLINE HIGH >200 mg//dl HIGH . Performed By: #### V ITB1, ZINC #### [facility] [address] [place] [address] #### B12, FOL, CMP, PREALB, ANDREZ, CBCD #### [facility] [address] [place] [address] VLDL CHOLESTEROL 66 mg/dL High 6-40 [facility] Comment on above: Performed By: #### V ITB1, ZINC #### [facility] [address] [place] [address] #### B12, FOL, CMP, PREALB, ANDREZ, CBCD #### [facility] [address] [place] [address] THYROID STIM HORMONE (HS)on 07-31-2022 THYROID STIM HORMONE (HS) 2.569 uIU/ml Normal 0.550-4.780 [facility] Comment on above: Performed By: #### V ITB1, ZINC #### [facility] [address] [place] [address] #### B12, FOL, CMP, PREALB, ANDREZ, CBCD #### [facility] [address] [place] [address] NICOTINE METABOLITE, QUANTon 07-19-2022 COTININE <1.0 Normal . [facility] Comment on above: Order Comment: FAX T O [phone] Result Comment: This test was developed and its performance characteristics determined by [employer]. It has not been cleared or approved by the Food and Drug Administration. Cotinine levels greater than 20.0 are consistent with the use of tobacco or tobacco cessation products. Performed at: [address] [id number] Dyeing Machine Tender: Estuardo Michelle MD, Phone: [phone] Performed By: #### N ICOTINE #### [facility] [address] [place] [address] NICOTINE <1.0 Normal . [facility] Comment on above: Order Comment: FAX T O [phone] Result Comment: This test was developed and its performance characteristics determined by [facility]. It has not been cleared or approved by the Food and Drug Administration. Nicotine levels greater than 2.0 are consistent with the use of tobacco or tobacco cessation products. Performed By: #### N ICOTINE #### [facility] [address] [place] [address] HIPS BILATERAL (2V)on 2021 [facility] Name: ASHKYLIE DALLASISIS ALTAMIRANO Phys: LASHAWN WELLS NP : 2000 Age: 22 Sex: F Acct: [id number] Loc: RAD Exam Date: 06/14/2022 Status: REG CLI Radiology No: [id number] Unit No: [id number] EXAM# TYPE/EXAM RESULT [id number] RAD/HIPS BILATERAL (2V) SEE REPORT INDICATION: Sharp [...] NP Technologist: Eugene Wagner Transcribed Date/Time: 06/14/2022 (4154) Auto Repair Technician: OSCAR Printed Date/Time: 06/14/2022 (8744) PAGE 1 Signed Report Normal [facility] Vitamin B1 (Thiamine), Whole Bloodon 05-09-2022 Vitamin B1, Whole Blood 116 nmol/L Normal 70-180 [facility] Comment on above: Result Comment: [...] developed and its performance characteristics determined by [employer]. It has not been cleared or approved by the [place] Food and Drug Administration. This test was performed in a CLIA certified laboratory and is intended for clinical purposes. Performed By: [facility] [employer] [address] [place], [place] [id number] [place] Worker: Francisco Javier Zhang MD, PhD Performed By: #### 8 [id number] ####[facility] Reference [id number] [place], [place] [id number] Zinc, Serumon 05-07-2022 Zinc, Serum 75.6 ug/dL Normal 60.0-120.0 [facility] Comment on above: Result Comment: [...] developed and its performance characteristics determined by [employer]. It has not been cleared or approved by the [place] Food and Drug Administration. This test was performed in a CLIA certified laboratory and is intended for clinical purposes. Performed By: [employer] [address] [place], [place] [id number] [place] Worker: Francisco Javier Zhang MD, PhD Performed By: #### 2 0097 #### [facility] Reference Lab [address] [place] [address] 93411 Blood glucose - POCTon 05-04 Glucose [Mass/Vol] 96 mg/dL [facility] Work Phone: QC OK? [facility]ITALFulcrum [facility]systems[facility] Work Phone: CBCon 05-04-2022 Hematocrit (Bld) [Volume fraction] 40.4 % 34.0 - 48.0 % [facility] Hemoglobin (Bld) [Mass/Vol] 13.2 g/dL 11.5 - 15.5 g/dL [facility] MCH (RBC) [Entitic mass] 29.9 pg 26.0 - 35.0 pg [facility] MCHC (RBC) [Mass/Vol] 32.7 % 32.0 - 34.5 % [facility] MCV (RBC) [Entitic vol] 91.6 fL 80.0 - 99.9 fL [facility] Platelet distribution width (Bld) [Ratio] 13.0 fL 11.5 - 15.0 fL [facility] Platelet mean volume (Bld) [Entitic vol] 9.8 fL 7.0 - 12.0 fL [facility] Platelets (Bld) [#/Vol] 313 10*3/uL [facility] RBC (Bld) [#/Vol] 4.41 10*6/uL [facility] WBC (Bld) [#/Vol] 9.2 10*3/uL [facility] CBC With Platelet No Differe ntialon 05-04-2022 Hematocrit (Bld) [Volume fraction] 40.4 % Normal 34.0-48.0 [facility] Hemoglobin (Bld) [Mass/Vol] 13.2 g/dL Normal 11.5-15.5 [facility] MCH (RBC) [Entitic mass] 29.9 pg Normal 26.0-35.0 [facility] MCHC 32.7 % Normal 32.0-34.5 [facility] MCV (RBC) [Entitic vol] 91.6 fL Normal 80.0-99.9 [facility] Platelet Count 313 E9/L Normal 130-[address] [facility] Platelet mean volume (Bld) [Entitic vol] 9.8 fL Normal 7.0-12.0 [facility] RBC 4.41 E12/L Normal 3.50-5.50 [facility] RDW 13.0 fL Normal 11.5-15.0 [facility] WBC 9.2 E9/L Normal 4.5-11.5 [facility] Cholesterolon 05-04-2022 Cholesterol [Mass/Vol] 162 mg/dL Normal 0-199 [facility] Cholesterol, Totalon 022 Cholesterol [Mass/Vol] 162 mg/dL 0 - 1 99 mg/dL [facility] Comprehensive Metabolic Pane evan 05-04-2022 Albumin [Mass/Vol] 4.1 g/dL Normal 3.5-5.2 [facility] ALP [Catalytic activity/Vol] 64 U/L Normal 35-104 [facility] ALT [Catalytic activity/Vol] 22 U/L Normal 0-32 [facility] Anion gap [Moles/Vol] 10 mmol/L Normal 7-16 [facility] AST [Catalytic activity/Vol] 13 U/L Normal 0-31 [facility] Bilirubin [Mass/Vol] 0.2 mg/dL Normal 0.0-1.2 [facility] Calcium [Mass/Vol] 8.9 mg/dL Normal 8.6-10.2 [facility] Chloride [Moles/Vol] 102 mmol/L Normal 98-107 [facility] CO2 [Moles/Vol] 25 mmol/L Normal 22-29 [facility] Creatinine [Mass/Vol] 0.7 mg/dL Normal 0.5-1.0 [facility] [facility] GFR Calculated >60 Normal >=60 [facility] Comment on above: Result Comment: Dion silvermanc [...] Glucose [Mass/Vol] 96 mg/dL Normal 74-99 [facility] Potassium [Moles/Vol] 4.5 mmol/L Normal 3.5-5.0 [facility] Protein [Mass/Vol] 6.9 g/dL Normal 6.4-8.3 [facility] Sodium [Moles/Vol] 137 mmol/L Normal 132-146 [facility] Urea nitrogen [Mass/Vol] 17 mg/dL Normal 6-20 [facility] Albumin [Mass/Vol] 4.1 g/dL 3.5 - 5.2 g/dL [facility] ALP (Bld) [Catalytic activity/Vol] 64 U/L 35 - 104 U/L [facility] ALT [Catalytic activity/Vol] 22 U/L 0 - 32 U/L [facility] Anion gap [Moles/Vol] 10 mmol/L 7 - 16 mmol/L [facility] AST [Catalytic activity/Vol] 13 U/L 0 - 31 U/L [facility] Bilirubin [Mass/Vol] 0.2 mg/dL 0.0 - 1 .2 mg/dL [facility] Calcium [Mass/Vol] 8.9 mg/dL 8.6 - 10. 2 mg/dL [facility] Chloride [Moles/Vol] 102 mmol/L 98 - 10 7 mmol/L [facility] CO2 [Moles/Vol] 25 mmol/L 22 - 29 mmol/L [facility] Creatinine [Mass/Vol] 0.7 mg/dL 0.5 - 1.0 mg/dL [facility] GFR/1.73 sq M.predicted MDRD (S/P/Bld) [Vol rate/Area] mL/min/1.73 60 - PINF mL/min/1.73 [facility] Comment on above: Pediatric calculator link [...] 96 mg/dL 74 - 99 mg/dL [facility] Potassium [Moles/Vol] 4.5 mmol/L 3.5 - 5.0 mmol/L [facility] Protein [Mass/Vol] 6.9 g/dL 6.4 - 8.3 g/dL [facility] Sodium [Moles/Vol] 137 mmol/L 132 - 146 mmol/L [facility] Urea nitrogen (BldV) [Mass/Vol] 17 mg/dL 6 - 20 mg/dL [facility] Ferritinon 05-04-2022 Ferritin [Mass/Vol] 69 ng/mL Normal [facility] Comment on above: Result Comment: FERR ITIN Reference Ranges: Adult Males 20 - 60 years: 30 - 400 ng/mL Adult females 17 - 60 years: 13 - 150 ng/mL Adults greater than 60 years: no established reference range Pediatrics: no established reference range Folateon 05-04-2022 Folate 8.5 ng/mL Normal 4.8-24.2 [facility] Hgb A1Con 05-04-2022 HbA1c (Bld) [Mass fraction] 5.7 % High 4.0-5.6 [facility] METER GLUCOSEon 05-04-2022 Glucose [Mass/Vol] 93 mg/dL Normal 74-99 [facility] Glucose [Mass/Vol] 96 mg/dL Normal 74-99 [facility] No Panel Informationon 05-04 [facility] Work Phone: POC Urine Qualon 1 07-04-2021 Beta HCG ( test) Ql (U) Negative Negative [facility] Work Phone: Lot Number [id number] [facility] Work Phone: Negative QC Pass/Fail Pass [facility] Work Phone: Positive QC Pass/Fail Pass [facility] Work Phone: [facility] Work Phone: POCT Glucoseon 05-04-2022 Glucose [Mass/Vol] 93 mg/dL 74 - 99 mg/dL [facility] Glucose [Mass/Vol] 96 mg/dL 74 - 99 mg/dL [facility] Prealbuminon 05-04-2022 Prealbumin [Mass/Vol] 24 mg/dL Normal 20-40 [facility] Surgical Specimenon 05-04-20 Surgical [id number] [place] [id number] FINAL SURGICAL PATHOLOGY REPORT NAME: BATOOL KINGSLEY Date of 05/04/2022 Collection: Medical Record [id number] Date of 05/04/2022 Number: Receipt: Age: 22 Y Sex: F Date 05/11/2022 08:29 Reported: Date Of : 2000 Financial [id number] Admitting DERIC FLORENCE Number: Physician: Patient JHON BANGURAPLMAGUI Ordering DERIC FLORENCE Location: Physician: Accession Number: [...] submitted. Block label: A1. (JORGE L:YAYA) CODES: [id number]; Department of Pathology Page 1 of 1 Normal [facility] Triglycerideon 05-04-2022 Interpretation and review of laboratory results Abnormal [facility] Triglyceride [Mass/Vol] 274 mg/dL High 0 - 149 mg/dL [facility] Triglycerideson 05-04-2022 Triglyceride [Mass/Vol] 274 mg/dL High 0-149 [facility] Vitamin B12on 05-04-2022 Cobalamin (Vitamin B12) [Mass/Vol] 226 pg/mL Normal 211-946 [facility] US GALLBLADDER RUQon 022 US [...] Rohit Dowling MD 05/02/22 Final result Normal [facility] Comment on above: Order Comment: Reaso n for exam:->Indigestion What reading provider will be dictating this exam?->CRC CBC Auto DifferentialOrdered By: Win Narvaez on 03-27-2021 Basophils (Bld) [#/Vol] 0.05 10*3/uL [facility] Phone: Basophils/100 WBC (Bld) 0.5 % 0.0 - 2.0 % [facility] Phone: Eosinophils Absolute 0.37 [facility] Phone: Eosinophils/100 WBC (Bld) 3.8 % 0.0 - 6.0 % [facility] Phone: Hematocrit (Bld) [Volume fraction] 39.5 % 34.0 - 48.0 % [facility] Phone: Hemoglobin.gastrointes tinal spec 1 Ql (Stl) 12.6 g/dL 11.5 - 15.5 g/dL [facility] Phone: Immature Granulocytes # 0.18 E9/L [facility] Phone: Immature granulocytes/100 WBC (Bld) 1.8 % 0.0 - 5.0 % [facility] Phone: Interpretation and review of laboratory results Abnormal [facility] Phone: Lymphocytes Absolute 3.73 [facility] Phone: Lymphocytes/100 WBC (Bld) 38.2 % 20.0 - 42.0 % [facility] Phone: MCH (RBC) [Entitic mass] 28.9 pg 26.0 - 35.0 pg [facility] Phone: MCHC (RBC) [Mass/Vol] 31.9 % Low 32.0 - 34.5 % [facility] Phone: MCV (RBC) [Entitic vol] 90.6 fL 80.0 - 99.9 fL [facility] Phone: Monocytes Absolute 0.46 [facility] Phone: Monocytes/100 WBC (Bld) 4.7 % 2.0 - 12.0 % [facility] Phone: Neutrophils Absolute 4.97 [facility] Phone: Neutrophils/100 WBC (Bld) 51.0 % 43.0 - 80.0 % [facility] Phone: Platelet distribution width (Bld) [Ratio] 13.3 fL 11.5 - 15.0 fL [facility] Phone: Platelet mean volume (Bld) [Entitic vol] 9.7 fL 7.0 - 12.0 fL [facility] Phone: Platelets (Bld) [#/Vol] 281 10*3/uL [facility] Phone: RBC (Bld) [#/Vol] 4.36 10*6/uL [facility] Phone: WBC (Bld) [#/Vol] 9.8 10*3/uL [facility] Phone: Comprehensive Metabolic Pane l w/ Reflex to MGOrdered By: Win Narvaez on 03-27-2021 Albumin [Mass/Vol] 4.2 g/dL 3.5 - 5.2 g/dL [facility] Phone: ALP (Bld) [Catalytic activity/Vol] 64 U/L 35 - 104 U/L [facility] Phone: ALT [Catalytic activity/Vol] 19 U/L 0 - 32 U/L [facility] Phone: Anion gap [Moles/Vol] 12 mmol/L 7 - 16 mmol/L [facility] Phone: AST [Catalytic activity/Vol] 14 U/L 0 - 31 U/L [facility] Phone: Bilirubin [Mass/Vol] mg/dL 0.0 - 1 .2 mg/dL [facility] Phone: Calcium [Mass/Vol] 9.1 mg/dL 8.6 - 10. 2 mg/dL [facility] Phone: Chloride [Moles/Vol] 103 mmol/L 98 - 10 7 mmol/L [facility] Phone: CO2 [Moles/Vol] 22 mmol/L 22 - 29 mmol/L [facility] Phone: Creatinine [Mass/Vol] 0.5 mg/dL 0.5 - 1.0 mg/dL [facility] Phone: Free PSA/Total PSA [Mass fraction] 7.1 g/dL 6.4 - 8.3 g/dL [facility] Phone: GFR >60 [facility] Phone: GFR Non- >60 >=60 mL/min/1.73 [facility] Phone: Comment on above: Chronic Kidney Disea se: less than 60 ml/min/1.73 sq.m. Kidney Failure: less than 15 ml/min/1.73 sq.m. Results valid for patients 18 years and older. Glucose [Mass/Vol] 107 mg/dL High 74 - 99 mg/dL [facility] Phone: Interpretation and review of laboratory results Abnormal [facility] Phone: Potassium [Moles/Vol] 4.2 mmol/L 3.5 - 5.0 mmol/L [facility] Phone: Sodium [Moles/Vol] 137 mmol/L 132 - 146 mmol/L [facility] Phone: Urea nitrogen (BldV) [Mass/Vol] 9 mg/dL 6 - 20 mg/dL [facility] Phone: [facility] Phone: Microscopic UrinalysisOrdere d By: Win Narvaez on 03-27-2021 Bacteria, UA FEW Abnormal None Seen /HPF [facility] Phone: Epithelial Cells, UA FEW /HPF [facility] Phone: Interpretation and review of laboratory results Abnormal [facility] Phone: RBC, UA 2-5 [facility] Phone: WBC, UA 0-1 [facility] Phone: [facility] Phone: No Panel InformationOrdered By: Win Nravaez on 03-27-2021 [facility] Phone: POC Urine QualOrde red By: Win Narvaez on 03-27-2021 Beta HCG ( test) Ql (U) Negative Negative [facility] Phone: Beta HCG ( test) Ql (U) [id number] [facility] Phone: Negative QC Pass/Fail Pass [facility] Work Phone: Positive QC Pass/Fail Pass [facility] [employer] Work Phone: US PELVIS COMPLETEOrdered By : Tien Oneal on 03-27-2021 The bilateral ovaries are mildly enlarged, right greater than left. Otherwise, unremarkable pelvic ultrasound. [facility] Phone: EXAMINATION: PELVIC ULTRASOUND 03/27/2021 TECHNIQUE: Multiple [...] Free Fluid: No evidence of free fluid. [facility] Phone: [place], [facility] Incoming Radiant Results From [employer] - 03/27/2021 3:01 PM EDT EXAMINATION: PELVIC [...] greater than left. Otherwise, unremarkable pelvic ultrasound. [facility] Phone: [facility] Phone: UrinalysisOrdered By: Win Narvaez on 03-27-2021 Bilirubin Urine Negative Negative [facility] Work Phone: Blood, Urine LARGE Abnormal Negative [facility] Work Phone: Clarity, UA Clear Clear [facility] Work Phone: Color, UA Yellow Straw/Yellow [facility] Work Phone: Glucose, Ur Negative Negative mg/dL [facility] Work Phone: Interpretation and review of laboratory results Abnormal [facility] Work Phone: Ketones Ql (U) Negative Negative mg/dL [facility] Work Phone: Leukocyte esterase Test strip Ql (U) Negative Negative [facility] Work Phone: Nitrite, Urine Negative Negative [facility] Work Phone: pH, UA 5.0 [facility] Work Phone: Protein, UA TRACE Negative mg/dL [facility] Work Phone: Specific [place], UA >=1.030 [facility] [employer] Work Phone: Urobilinogen, Urine 0.2 <2.0 E.U./dL [facility] Work Phone: [facility] Work Phone: NOSE/THROAT CULTUREon 2020 NOSE/THROAT CULTURE RUN DATE: 07/10/20 Laboratory LIVE PAGE 1 RUN TIME: 951 Specimen Inquiry RUN USER: INTERFACE 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 BED: DIS: STATUS: REG REF LAB O/S: Specimen: [id number] Collected: 07/08/20 Status: COMP Req#: [id number] Received: 07/08/20 Source: THROAT Sp Desc: Subm Dr: Ameena Corcoran APRN.CNP Ordered: NOSE/THRT CULT Procedure Result Verified > NOSE/THROAT CULTURE Final 07/10/20 HEAVY GROWTH OF NORMAL ARIN END OF REPORT Normal [facility] Comment on above: Performed By: #### C ULTNT #### [facility] [address] [address] Vital Signs Date Time Vital Sign Value Performing Clinician Facility 06-16-2024 12:54-0500 Body weight 126.55 kg Bryan Manisha DO Work Phone: [facility] 06-16-2024 12:54-0500 Diastolic blood pressure 76 mm[Hg] Bryan Manisha DO Work Phone: [facility] 06-16-2024 12:54-0500 Systolic blood pressure 122 mm[Hg] Bryan Manisha DO Work Phone: [facility] 05-25-2024 14:30-0500 Body weight 123.74 kg Bryan Manisha DO Work Phone: [facility] 05-25-2024 14:30-0500 Diastolic blood pressure 70 mm[Hg] Bryan Manisha DO Work Phone: [facility] 05-25-2024 14:30-0500 Systolic blood pressure 120 mm[Hg] Bryan Manisha DO Work Phone: [facility] 04-21-2024 15:02-0400 Body weight 118.84 kg Bryan Manisha DO Work Phone: [facility] 04-21-2024 15:02-0400 Diastolic blood pressure 74 mm[Hg] Bryan Manisha DO Work Phone: [facility] 04-21-2024 15:02-0400 Systolic blood pressure 116 mm[Hg] Bryan Manisha DO Work Phone: [facility] 04-07-2024 14:38-0400 Body weight 118.3 kg Kierra Rivas PA Work Phone: [facility] 04-07-2024 14:38-0400 Diastolic blood pressure 70 mm[Hg] Kierra Rivas PA Work Phone: [facility] 04-07-2024 14:38-0400 Systolic blood pressure 120 mm[Hg] Kierra Rivas PA Work Phone: [facility] 03-09-2024 13:53-0400 Body weight 113.74 kg Bryan Manisha DO Work Phone: [facility] 03-09-2024 13:53-0400 Diastolic blood pressure 72 mm[Hg] Bryan Manisha DO Work Phone: [facility] 03-09-2024 13:53-0400 Systolic blood pressure 120 mm[Hg] Bryan Manisha DO Work Phone: [facility] 10-30-2022 08:56-0400 SaO2% (BldA) [Mass fraction] 97 % Deric Florence MD Work Phone: [employer] [facility] [employer] 10-30-2022 05:00-0400 Body temperature 97.9 [degF] Deric Florence MD Work Phone: [facility] [employer] 10-30-2022 05:00-0400 Diastolic blood pressure 74 mm[Hg] Deric Florence MD Work Phone: [facility] 10-30-2022 05:00-0400 Heart rate 74 /min Deric Florence MD Work Phone: [facility] 10-30-2022 05:00-0400 Respiratory rate 18 /min Deric Florence MD Work Phone: [facility] [employer] 10-30-2022 05:00-0400 Systolic blood pressure 126 mm[Hg] Deric Florence MD Work Phone: [facility] [employer] 10-29-2022 06:50-0400 Body height 170.2 cm Deric Florence MD Work Phone: [facility] [employer] 10-29-2022 06:50-0400 Body mass index (BMI) [Ratio] 55.6 kg/m2 Deric Florence MD Work Phone: [facility] [employer] 10-29-2022 06:50-0400 Body weight 161.03 kg Deric Florence MD Work Phone: [facility] [employer] 10-24-2022 12:17-0400 Body height 170.2 cm Sjwz 2 [employer] 10-24-2022 12:17-0400 Body mass index (BMI) [Ratio] 55.44 kg/m2 Sjwz 2 [facility] [employer] 10-24-2022 12:17-0400 Body temperature 98.01 [degF] Sjwz 2 [facility] [employer] 10-24-2022 12:17-0400 Body weight 160.57 kg Sjwz 2 [employer] 10-24-2022 12:17-0400 Diastolic blood pressure 62 mm[Hg] Sjwz 2 [facility] [employer] 10-24-2022 12:17-0400 Heart rate 77 /min Sjwz 2 [facility] [employer] 10-24-2022 12:17-0400 Respiratory rate 16 /min Sjwz 2 [facility] [employer] 10-24-2022 12:17-0400 SaO2% (BldA) [Mass fraction] 95 % Sjwz 2 [facility] [employer] 10-24-2022 12:17-0400 Systolic blood pressure 117 mm[Hg] Sjwz 2 [facility] 05-04-2022 08:55-0400 Body temperature 98.29 [degF] Deric Florence MD Work Phone: [facility] [employer] 05-04-2022 08:55-0400 Diastolic blood pressure 68 mm[Hg] Deric Florence MD Work Phone: [facility] [employer] 05-04-2022 08:55-0400 Heart rate 83 /min Deric Florence MD Work Phone: [facility] 05-04-2022 08:55-0400 Respiratory rate 16 /min Deric Florence MD Work Phone: [facility] [employer] 05-04-2022 08:55-0400 SaO2% (BldA) [Mass fraction] 92 % Deric Florence MD Work Phone: [facility] 05-04-2022 08:55-0400 Systolic blood pressure 128 mm[Hg] Deric Florence MD Work Phone: [facility] [employer] 05-04-2022 07:06-0400 Body height 170.2 cm Deric Florence MD Work Phone: [facility] [employer] 05-04-2022 07:06-0400 Body mass index (BMI) [Ratio] 61.21 kg/m2 Deric Florence MD Work Phone: [facility] [employer] 05-04-2022 07:06-0400 Body weight 177.27 kg Deric Florence MD Work Phone: [facility] [employer] 03-27-2021 20:08-0400 Heart rate 95 /min Tien Oneal DO Work Phone: [employer] Work Phone: 03-27-2021 13:47-0400 Body height 170.2 cm Tien Oneal DO Work Phone: [employer] Work Phone: 03-27-2021 13:47-0400 Body mass index (BMI) [Ratio] 54.82 kg/m2 Tien Oneal DO Work Phone: [employer] Work Phone: 03-27-2021 13:47-0400 Body temperature 97.11 [degF] Tien Oneal DO Work Phone: [employer] Work Phone: 03-27-2021 13:47-0400 Body weight 158.76 kg Tien Oneal DO Work Phone: [facility] Phone: 03-27-2021 13:47-0400 Diastolic blood pressure 80 mm[Hg] Tien Oneal DO Work Phone: [facility] Phone: 03-27-2021 13:47-0400 Respiratory rate 16 /min Tien Oneal [employer] Work Phone: [facility] Phone: 03-27-2021 13:47-0400 SaO2% (BldA) [Mass fraction] 98 % Tien Oneal [employer] Work Phone: [facility] Phone: 03-27-2021 13:47-0400 Systolic blood pressure 173 mm[Hg] Tien Oneal [employer] Work Phone: [facility] Phone: Encounters Encounter Date Encounter Type Care Provider Facility Start: 06-27-2024 End: 06-27-2024 Emergency department patient visit NO PCP NO PCP [facility] Start: 06-20-2024 End: 06-20-2024 Clinisync Result Encounter [...] DO Work Phone: [facility] Start: 05-25-2024 End: 05-25-2024 Bamboo flowsheet Bryan Manisha DO Work Phone: [facility] Start: 05-25-2024 End: 05-25-2024 Office outpatient visit 15 minutes Bryan Manisha DO Work Phone: [facility] Comment on above: 34 weeks gestation o f ; Third trimester ; Insomnia, unspecified type; History of gastric bypass; Gestational diabetes mellitus (GDM), antepartum, gestational diabetes method of control unspecified Start: 05-25-2024 End: 05-25-2024 ambulatory BRYAN MANISHA Not Available Start: 05-06-2024 End: 05-06-2024 Office outpatient visit 15 minutes Kierra HUNT Work Phone: [facility] Comment on above: Third trimester preg agatha; 31 weeks gestation of ; Anxiety, generalized (CMS/HCC); Sinusitis, unspecified chronicity, unspecified location Start: 05-06-2024 End: 05-06-2024 ambulatory KIERRA RIVAS Not Available Start: 05-06-2024 End: 05-06-2024 Bamboo flowsheet Kierra HUNT Work Phone: [facility] Start: 05-06-2024 End: 05-06-2024 Bamboo flowsheet Kierra HUNT Work Phone: [facility] Start: 04-21-2024 End: 04-21-2024 Office outpatient visit 15 minutes Bryan Manisha DO Work Phone: [facility] Comment on above: Third trimester preg agatha; 29 weeks gestation of ; Anemia during in third trimester; Elevated glucose tolerance test; Abnormal thyroid stimulating hormone (TSH) level Start: 04-21-2024 End: 04-21-2024 ambulatory BRYAN MANISHA Not Available Start: 04-21-2024 End: 04-21-2024 Bamboo flowsheet Bryan Manisha DO Work Phone: [facility] Start: 04-21-2024 End: 04-21-2024 Bamboo flowsheet Bryan Manisha DO Work Phone: [facility] Start: 04-21-2024 End: 04-21-2024 Clinisync Result Encounter Bryan Manisha DO Work Phone: [facility] External Department Unsolicited Start: 04-07-2024 End: 04-07-2024 [...] 04-07-2024 Bamboo flowsheet Kierra HUNT Work Phone: [facility] Start: 03-17-2024 End: 03-17-2024 ambulatory [facility] Start: 03-09-2024 End: 03-09-2024 Office outpatient visit 15 minutes Bryan Manisha DO Work Phone: [facility] Comment on above: Diabetes mellitus sc reening; Second trimester Start: 03-09-2024 End: 03-09-2024 Bamboo flowsheet Bryan Manisha DO Work Phone: [facility] Start: 03-09-2024 End: 03-09-2024 Bamboo flowsheet Bryan Manisha DO Work Phone: [facility] Start: 03-09-2024 End: 03-09-2024 Clinisync Result Encounter Bryan Manisha DO Work Phone: [facility] External Department Unsolicited Start: 03-09-2024 End: 03-09-2024 ambulatory BRYAN MANISHA Not Available Start: 02-17-2024 End: 02-17-2024 ambulatory BRYAN R MANISHA [facility] Start: 02-10-2024 End: 02-10-2024 ambulatory BRYAN MANISHA Not Available Start: 01-07-2024 End: 01-07-2024 ambulatory BRYAN MANISHA Not Available Start: 12-12-2023 End: 12-12-2023 ambulatory BRYAN DYER Not Available Start: 11-10-2023 End: 11-10-2023 Emergency department patient visit NO PCP NO PCP [facility] Start: 08-14-2023 End: 08-14-2023 Emergency department patient visit TRAVIS VALLEJO [facility] Start: 12-14-2022 ambulatory [facility] Facility:[facility] Start: 12-03-2022 ambulatory [facility] Facility:[facility] Start: 11-06-2022 ambulatory [facility] Facility:[facility] Start: 10-29-2022 End: 10-30-2022 Evaluation and management of inpatient [facility] Start: 10-29-2022 End: 10-30-2022 Evaluation and management of inpatient Deric Florence MD Work Phone: [facility] 3 MED SURG Comment on above: Post-operative state (Primary Dx); Morbid obesity (HCC) Start: 10-24-2022 End: 10-25-2022 ambulatory [facility] Start: 10-24-2022 Encounter for other preprocedural examination [facility] Start: 10-24-2022 End: 10-24-2022 Patient encounter status Sjwz 2 [facility] PRE ADMIT TESTING Start: 10-24-2022 End: 10-24-2022 Subsequent hospital visit by physician Hans Pat Room 2 [facility] PRE ADMIT TESTING Comment on above: Preop testing (Prima ry Dx); Malnutrition following gastrointestinal surgery Start: 10-04-2022 ambulatory [facility] Facility:[facility] Start: 08-13-2022 ambulatory [facility] Facility:[facility] Start: 07-31-2022 ambulatory [facility] Facility:[facility] Start: 07-13-2022 ambulatory [facility] Facility:[facility] Start: 06-14-2022 ambulatory [facility] Facility:[facility] Start: 05-04-2022 End: 05-04-2022 [facility] Start: 05-04-2022 End: 05-04-2022 Subsequent hospital visit by physician Deric Florence MD Work Phone: [facility] Comment on above: Morbid obesity due t o excess calories (HCC); Gastroesophageal reflux disease Start: 05-02-2022 End: 05-05-2022 ambulatory DERIC FLORENCE [facility] Start: 03-27-2021 End: 03-27-2021 Emergency department patient visit Tien Judd Patriciarhonda DO Work Phone: [facility] Emergency Department Comment on above: DUB [...] stick/tabl et rgnt non-auto w/o micrscp Kierra Evelyn PA Work Phone: Start: 03-09-2024 ALL CBC WITH [...] Basic metabolic panel calcium total 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 Work Phone: Start: 10-30-2022 Lipid panel Yang Ferguson YARD 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 [employer]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 Work Phone: Start: 10-30-2022 Gluc bld gluc mntr d ev cleared fda spec home use KEALA GILLIAN Start: 10-30-2022 INCENTIVE SPIROMETRY RT KAELA [...] Phone: Start: 10-29-2022 NOTIFY PHYSICIAN (SPECIFY) KAELA SOTOSE Start: 10-29-2022 REASON FOR NOT SELEC TING BASAL INSULIN KAELA GILLIAN Start: 10-29-2022 ENCOURAGE DEEP BREAT MADDI AND COUGHING KAELA GILLIAN Start: 10-29-2022 IP CONSULT TO HOSPITALIST KAELA SOTOSE Start: 10-29-2022 AMBULATE PATIENT KAELA Roland EASE Start: 10-29-2022 BARIATRIC DIET KAELA PEA SE Start: 10-29-2022 INCENTIVE SPIROMETRY RT KAELA GILLIAN Start: 10-29-2022 VITAL SIGNS KAELA GILLIAN Start: 10-29-2022 Hemoglobin glycosylated a1c Yang Shadi Orta CNP Work Phone: Start: 10-29-2022 Gluc [...] KAELA GILLIAN Start: 05-04-2022 DISCHARGE PATIENT KAELA SOTOSE Start: 05-04-2022 Level iv surg pathol ogy gross&microscopic exam KAELA GILLIAN Start: 05-04-2022 DIAGNOSIS FOR PROCEDURE KAELA GILLIAN Start: 05-04-2022 DIET NPO KAELA SOTOSE Start: 05-04-2022 FULL CODE KAELA SOTOSE Start: 05-04-2022 NOTIFY PHYSICIAN (SPECIFY) KAELA GILLIAN [...] AM EST Visit [facility] [address] [place] [address] Bryan Dyer DO [address] [place], [place] [id number] [facility] Start: 06-16-2024 End: 06-16-2024 [...] EST Ancillary Procedure [facility] [address] [place] [id number] [facility] Start: 04-21-2024 End: 04-21-2024 Patient encounter procedure 04/21/2024 2:30 PM EDT Routine [facility] [address] [place] [phone] Bryan Dyer DO [address] [place] [address] Arrived [facility] Comment on above: Arrived Start: 04-21-2024 End: 04-21-2025 US for US OB SCAN FOR GROWTH Imaging Routine Elevated glucose tolerance test Abnormal thyroid stimulating hormone (TSH) level Expected: 04/21/2024 (Approximate), Expires: 04/21/2025 [facility] Healthcare Comment on above: Expected: 04/21/2024 (Approximate), Expi res: 04/21/2025 Start: 04-07-2024 End: 04-07-2024 Patient encounter procedure [facility] Comment on above: Arrived Start: 04-07-2024 End: 04-07-2025 US for US OB SCAN FOR GROWTH Imaging Routine Gestational diabetes mellitus (GDM), antepartum, gestational diabetes method of control unspecified Anemia affecting in second trimester Expected: 04/07/2024 (Approximate), Expires: 04/07/2025 [facility] Work Phone: Comment on above: Expected: 04/07/2024 (Approximate), Expi res: 04/07/2025 Start: 03-09-2024 End: 03-09-2024 Patient encounter procedure 03/09/2024 2:10 PM EDT Routine [facility] [address] [address] Bryan Dyer DO [address] [place] [address] Arrived [facility] Comment on above: Arrived Start: 03-09-2024 End: 03-09-2025 CBC panel - Blood by Automated count CBC Lab Routine Diabetes mellitus screening Expected: 03/09/2024 (Approximate), Expires: 03/09/2025 [facility] Healthcare Work Phone: Comment on above: Expected: 03/09/2024 (Approximate), Expi res: 03/09/2025 Start: 03-09-2024 End: 03-09-2025 Measurement of glucose 1 hour after glucose challenge for glucose tolerance test Glucose tolerance, 1 hour Lab Routine Diabetes mellitus screening Expected: 03/09/2024 (Approximate), Expires: 03/09/2025 [facility] Healthcare Comment on above: Expected: 03/09/2024 (Approximate), Expi res: 03/09/2025 Start: 10-31-2023 GFR test (Diabetes, CKD 3-4, OR last GFR 15-59) GFR test (Diabetes, CKD 3-4, OR last GFR 15-59) [facility] Start: 10-31-2023 Lipid panel Lipids [facility] Start: 10-30-2023 Hemoglobin A1c measurement A1C test (Diabetic or Prediabetic) [facility] Start: 10-25-2023 GFR test (Diabetes, CKD 3-4, OR last GFR 15-59) GFR test (Diabetes, CKD 3-4, OR last GFR 15-59) [facility] Start: 05-04-2023 Hemoglobin A1c measurement A1C test (Diabetic or Prediabetic) [facility] Start: 05-04-2023 Lipid panel Lipids [facility] Start: 01-29-2023 Influenza vaccination Flu vaccine (Season Ended) [facility] Start: 11-14-2022 End: 11-14-2022 Patient encounter procedure 11/14/2022 Office Visit Bariatrics Deric Florence MD [address] [place] [address] [facility] Surg Weight Start: 10-29-2022 End: 10-29-2022 Admission to same day surgery center 10/29/2022 Surgery IP Unit Deric Florence MD [address] [place] [address] GASTRIC BYPASS NUNO-EN-Y LAPAROSCOPICNEEDS IV TEAM HANS OR Comment on above: GASTRIC BYPASS NUNO-EN-Y LAPAROSCOPICN EEDS IV TEAM Start: 10-29-2022 End: 10-29-2022 Laps gstr rstcv px w/byp nuno-en-y limb <150 cm GASTRIC BYPASS NUNO-EN-Y LAPAROSCOPIC Morbid obesity (HCC) 10/29/2022 9:00 AM EDT [facility] Start: 10-29-2022 Subsequent hospital visit by physician 10/29/2022 Hospital Encounter IP Unit Deric Florence MD [address] [facility] [address] [place] [address] [facility] Start: 05-11-2022 End: 05-11-2022 Patient encounter procedure [facility] Weight Start: 05-04-2022 End: 05-04-2022 Egd transoral biopsy single/multiple EGD ESOPHAGOGASTRODUODENOSCOPY Gastroesophageal reflux disease 05/04/2022 8:18 AM EDT [facility] Start: 01-29-2022 Influenza vaccination Flu vaccine (#1) [facility] [employer] Start: 03-01-2021 Influenza vaccination Flu vaccine (#1) [employer] Work Phone: Start: 01-22-2020 Screening for malignant neoplasm of cervix Pap smear [facility] Start: 09-23-2019 Hepatitis B vaccine (3 of 3 - Risk 3-dose series) Hepatitis B vaccine (3 of 3 - Risk 3-dose series) [facility] Start: 2018 DTaP/Tdap/Td vaccine (1 - Tdap) DTaP/Tdap/Td vaccine (1 - Tdap) [facility] Start: 2017 Glaucoma screening Diabetic retinal exam [facility] Start: 2017 Hepatitis C screening Hepatitis C screen [facility] Start: 2017 Urine screening for protein Diabetic Alb to Cr ratio (uACR) test [facility] Start: 2015 Screening for Chlamydia trachomatis [facility] Start: 2014 HIV screening HIV screen [facility] Start: 2011 COVID-19 Vaccine (1) COVID-19 Vaccine (1) [employer] Work Phone: Start: 2011 Depression Monitoring Depression Monitoring [facility] Start: 2011 Depression Screen Depression Screen [facility] Start: 2010 HPV vaccine (1 - 2-dose series) HPV vaccine (1 - 2-dose series) [facility] Start: 2009 Diabetic foot examination Diabetic foot exam [facility] Start: 2005 Pneumococcal 0-64 years Vaccine (1 - PCV) Pneumococcal 0-64 years Vaccine (1 - PCV) [facility] Start: 01-22-2000 Varicella vaccine (1 of 2 - 2-dose childhood series) Varicella vaccine (1 of 2 - 2-dose childhood series) [facility] Start: 1999 COVID-19 Vaccine (#1) COVID-19 Vaccine (#1) [facility] Start: 1999 Hepatitis C screening Hepatitis C screen [employer] Phone: End: 10-29-2023 Basic metabolic 2000 panel - Serum or Plasma Basic Metabolic Panel Lab Routine Daily for 365 Days starting 10/30/2022 until 10/29/2023, 1 completed [employer] Phone: Comment on above: Daily for 365 Days starting 10/30/2022 u ntil 10/29/2023, 1 completed End: 10-29-2023 CBC W Auto Differential panel - Blood CBC with Auto Differential Lab Routine Daily for 365 Days starting 10/30/2022 until 10/29/2023, 1 completed [employer] Phone: Comment on above: Daily for 365 Days starting 10/30/2022 u ntil 10/29/2023, 1 completed CBC W Auto Differential panel - Blood CBC and differential Lab Routine Anemia during in third trimester Ordered: 04/21/2024 [facility] [employer] Work Phone: Comment on above: Ordered: 04/21/2024 End: 03-27-2021 Culture, Urine Culture, Urine Microbiology Routine One Time for 1 Occurrences starting 03/27/2021 until 03/27/2021 [employer] Phone: Comment on above: One Time for 1 Occurrences starting 03/02 until 03/27/2021 End: 05-04-2022 Cyanocobalamin vitamin b-12 [employer] Phone: Comment on above: 1 Occurrences starting 05/04/2022 until 05/04/2022 End: 05-04-2022 Ferritin [Mass/volume] in Serum or Plasma [employer] Phone: Comment on above: 1 Occurrences starting 05/04/2022 until 05/04/2022 End: 05-04-2022 Folate [employer] Phone: Comment on above: 1 Occurrences starting 05/04/2022 until 05/04/2022 Glucose [Mass/volume ] in Serum or Plasma [employer] Phone: Comment on above: 4X Daily (AC & HS) until discontinued st arting 10/29/2022 As Needed until disc ontinued starting 10/29/2022 End: 05-04-2022 Hemoglobin A1c/Hemoglobin.total in Blood [employer] Phone: Comment on above: 1 Occurrences starting 05/04/2022 until 05/04/2022 End: 10-30-2022 Hemoglobin A1c/Hemoglobin.total in Blood Hemoglobin A1C Lab Routine Tomorrow AM for 1 Occurrences starting 10/30/2022 until 10/30/2022 [employer] Phone: Comment on above: Tomorrow AM for 1 Occurrences starting 0 10/30/2022 until 10/30/2022 Hemoglobin A1c/Hemoglobin.total in Blood Hemoglobin A1C Lab Routine 10/30/2022 4:51 AM EDT [employer] Phone: End: 10-29-2023 Hepatic function 2000 panel - Serum or Plasma Hepatic Function Panel Lab Routine Daily for 365 Days starting 10/30/2022 until 10/29/2023, 1 completed [employer] Phone: Comment on above: Daily for 365 Days starting 10/30/2022 u ntil 10/29/2023, 1 completed End: 10-29-2023 Magnesium [Mass/volume] in Serum or Plasma Magnesium Lab Routine Daily for 365 Days starting 10/30/2022 until 10/29/2023, 1 completed [employer] Phone: Comment on above: Daily for 365 Days starting 10/30/2022 u ntil 10/29/2023, 1 completed Nasal Cannula Oxygen Nasal Cannu la Oxygen Respiratory Care Routine Daily until discontinued starting 10/30/2022 [employer] Phone: Comment on above: Daily until discontinued starting 2022 Oxygen therapy [Minimum Data Set] Initiate Oxygen Therapy Protocol Respiratory Care Routine As Needed until discontinued starting 10/29/2022 [employer] Phone: Comment on above: As Needed until discontinued starting End: 10-29-2023 Phosphate [Mass/volume] in Serum or Plasma Phosphorus Lab Routine Daily for 365 Days starting 10/30/2022 until 10/29/2023, 1 completed [employer] Phone: Comment on above: Daily for 365 Days starting 10/30/2022 u ntil 10/29/2023, 1 completed End: 05-04-2022 Prealbumin [Mass/volume] in Serum or Plasma [employer] Phone: Comment on above: 1 Occurrences starting 05/04/2022 until 05/04/2022 End: 10-29-2022 Spirometry panel [employer] Phone: Comment on above: Continuous until discontinued starting 0 10/29/2022 Every 2hr while awak e until discontinued starting 10/29/2022 Surgical Pathology Surgical Path ology Lab Routine Gastroesophageal reflux disease Release Upon Ordering for 1 Occurrences starting 05/04/2022 [employer] Phone: Comment on above: Release Upon Ordering for 1 Occurrences starting 05/04/2022 Surgical Pathology Surgical Path ology Lab Routine Morbid obesity (HCC) Release Upon Ordering for 1 Occurrences starting 10/29/2022 [employer] Phone: Comment on above: Release Upon Ordering for 1 Occurrences starting 10/29/2022 End: 05-04-2022 Vitamin B1 Vitamin B1 Lab Routine Morbi d obesity due to excess calories (HCC) 1 Occurrences starting 05/04/2022 until 05/04/2022 [employer] Phone: Comment on above: 1 Occurrences starting 05/04/2022 until 05/04/2022 End: 05-04-2022 Zinc Zinc Lab Routine Morbid obes ity due to excess calories (HCC) 1 Occurrences starting 05/04/2022 until 05/04/2022 [employer] Phone: Comment on above: 1 Occurrences starting 05/04/2022 until 05/04/2022 Immunizations Immunization Date Immunization Notes Care Provider Lito enriquez 10-24-2020 tuberculin skin test ; purified protein derivative solution, intradermal Sjwz 2 [employer] Phone: 05-25-2019 hepatitis B vaccine, adult dosage Sjwz 2 [employer] Phone: 04-01-2019 hepatitis B vaccine, adult dosage Sjwz 2 [employer] Phone: 04-01-2019 meningococcal B vacc ine, recombinant, OMV, adjuvanted Sjwz 2 [employer] Phone: 04-01-2019 tuberculin skin test ; purified protein derivative solution, intradermal Sjwz 2 [employer] Phone: Payers Date Payer Category Payer Medicaid [employer] [place] [id number] 2023-Present [address] [place] [address] [id number] 2023 Private Health Insurance [facility] MEDICAID [id number] 2020 Private Health Insurance [id number] 1.2.840.198632.1.13.239.2. 7.3.728851.315 2020 Private Health Insurance [id number] 1.2.840.971673.1.13.239.2. 7.3.499910.315 1999 Unknown [id number] 2.16.840.1.200347.3.579.2. 204 1999 Unknown [id number] 2.16840.1.560431.3.579.2. 204 1999 Unknown [id number] 2.16840.1.492150.3.579.2. 204 1999 Unknown [id number] 2.16.840.1.753208.3.579.2. 204 1999 Unknown [id number] 2.16.840.1.834971.3.579.2. 1285 1999 Unknown [id number] 2.16.840.1.495250.3.579.2. 1285 1999 Unknown [id number] 2.16840.1.122965.3.579.2. 1258 1999 Unknown [id number] 2.16.840.1.062295.3.579.2. 1258 1999 Unknown [id number] 2.16.840.1.660868.3.579.2. 1258 1999 Unknown [id number] 2.16.840.1.120774.3.579.2. 9 1999 Unknown [id number] 2.16.840.1.989604.3.579.2. 1258 1999 Unknown [id number] 2.16.840.1.935322.3.579.2. 1258 1999 Unknown [id number] 2.16.840.1.086404.3.579.2. 1258 1999 Unknown [id number] 2.16.840.1.223996.3.579.2. 1258 1999 Unknown [id number] 2.16.840.1.572556.3.579.2. 1258 1999 Unknown [id number] 2.16.840.1.859431.3.579.2. 1258 1999 Unknown [id number] 2.16.840.1.794433.3.579.2. 1285 1999 Unknown [id number] 2.16.840.1.926405.3.579.2. 1285 1999 Unknown [id number] 2.16.840.1.966850.3.579.2. 1285 1999 Unknown [id number] 2.16.840.1.818136.3.579.2. 1286 Unknown [id number] 2.16.840.1.617316.3.579.2. 212 Unknown [id number] 2.16.840.1.196106.3.579.2. 212 Unknown [id number] 2.16.840.1.960471.3.579.2. 212 Unknown [id number] 2.16.840.1.389915.3.579.2. 212 Unknown [id number] 2.16.840.1.997326.3.579.2. 212 Unknown [id number] 2.16.840.1.311549.3.579.2. 212 Unknown [id number] 2.16.840.1.229119.3.579.2. 212 Unknown [id number] 2.16.840.1.389001.3.579.2. 212 Unknown [id number] 2.16.840.1.106939.3.579.2. 212 Social History Date Type Detail Facility Tobacco smoking stat [facility] Unknown if ever smoked [employer] Phone: Start: 2000 Sex Assigned At Not on file [employer] Phone: Start: 04-23-2022 End: 05-03-2022 Exposure to SARS-CoV-2 (event) Not sure [employer] Start: 05-03-2022 End: 10-24-2022 Tobacco smoking status NHIS Ex-smoker [employer] Phone: End: 12-29-2021 History of tobacco use Current smoker [employer] Phone: End: 12-29-2021 History of tobacco use Cigarette Smoker [employer] Phone: Start: 05-03-2022 End: 12-12-2023 Tobacco use and exposure Smokeless tobacco non-user [employer] Phone: Start: 05-04-2022 End: 10-30-2022 Alcohol intake Current drinker of alcohol (finding) [employer] Phone: Start: 05-03-2022 Tobacco Comment Quit 12/2021 [employer] Phone: Start: 05-03-2022 Alcohol Comment occ [employer] Phone: Start: 10-29-2022 History SDOH Alcohol Frequency 1 [employer] Phone: Start: 12-12-2023 Tobacco smoking stat [facility] Never smoked tobacco [facility] Start: 03-09-2024 End: 06-10-2024 Alcoholic beverage intake Ex-drinker (finding) [facility] Start: 12-12-2023 End: 03-09-2024 Alcoholic beverage intake [facility] Start: 12-12-2023 Tobacco use panel [facility] Start: 10-13-2023 [facility] Equipment Procedure Code Equipment Code Equipment Origin al Text Equipment Identifier Dates 1 strip by In Vi tro route Daily Use in the morning prior to breakfast, 1 hour after each meal for a total of 4times daily. [id number] Start: 02-19-2024 End: 03-20-2024 1 each by In Vit ro route Daily Use to check FSBS four times daily [id number] Start: 02-19-2024 End: 03-20-2024 Clinical Notes 05-04-2022 to 06-16-2024 Mary Ann Li, ELLIOT - 06/16/2024 1:30 PM Stacy Dan, SHASHI - 06/10/2024 1:40 PM Miles Zhao, SHASHI - 05/25/2024 2:00 PM MARILEE Wise - 05/06/2024 3:30 PM ESTDiscandi InstructionsAttachments Note Date & Type Note Facility [...] nursing note reviewed. Exam conducted with a foreign clerk present. Vitals: There is no height or [...] HOSPITAL [facility] and nursing spoke with Marion @[facility] to confirm IOL Follow Up: Patient is to return to office in 1 week for routine OB appointment. Documented by Mary Zhao LPN on behalf of: Bryan Dyer DO documented in this encounter [facility] 06-10-2024 History of Present illness Narrative Reason [...] nursing note reviewed. Exam conducted with a foreign clerk present. Vitals: There is no height or [...] Bryan Dyer DO documented in this encounter [facility] 05-25-2024 History of Present illness Narrative Reason [...] nursing note reviewed. Exam conducted with a foreign clerk present. Vitals: There is no height or [...] Bryan Dyer DO documented in this encounter [facility] 05-06-2024 History of Present illness [...] of: MARILEE Espinosa documented in this encounter [facility] 04-21-2024 History of Present illness [...] nursing note reviewed. Exam conducted with a foreign clerk present. Vitals: There is no height or [...] Bryan Dyer DO documented in this encounter [facility] 04-07-2024 History of Present illness [...] nursing note reviewed. Exam conducted with a foreign clerk present. Vitals: There is no height or [...] of: MARILEE Espinosa documented in this encounter [facility] 03-09-2024 History of Present illness Narrative Reason [...] to check FSBS. Blood Glucose Monitoring Suppl (CiiNOW Glucometer) w/Device kit 1 kit, Does not apply, Daily, Use four times daily to check FSBS. In the morning prior to breakfast & 1 hour after each meal for a total of 4times daily. cholecalciferol (Vitamin D-3) 50 MCG (1999) capsule 1 capsule, Every 24 hours Glucose [...] nursing note reviewed. Exam conducted with a foreign clerk present. Vitals: There is no height or [...] Bryan Dyer DO documented in this encounter [facility] 10-30-2022 Hospital Discharge instructions Lashawn Ordoñez RN - 10/30/2022 6:49 AM EDT Your information: Name: Batool Kingsley : 2000 Dr. Florence's Discharge Instructions for Bariatric Surgery [facility] Discharge Instructions For [...] blood sugars as ordered by PCP or Metal Building Assembler. Follow up with PCP or Metal Building Assembler regarding diabetic medications. Make sure you take any medicines you were on for depression or anxiety. FOLLOW-UP Follow-up appointment with surgeon 10-14 days after surgery. Complete lab work prior to this appointment. Follow-up with PCP and/or Metal Building Assembler prior to seeing surgeon. CALL [facility] [phone] IF ANY OF THE FOLLOWING OCCURS TO [...] Weapons (Notify Protective Services/Security): None Other Valuables: Tonasket, Wallet Home Medications: None Valuables Given To: [...] through Care Everywhere.Gastric Bypass Surgery: Nuno-en-Y: Post-op (Andorran)documented in this encounter [facility] [employer] Work Phone: 10-30-2022 Hospital course Narrative Physician Discharge Summary Batool Kingsley [id number] Admit date: 10/29/2022 Discharge date and time: 10/30/2022 Admitting Physician: Deric A Naman, MD Condition: stable Patient Active Problem List [...] Your Medications These medications were sent to [address] [phone] - F [phone] [place] [address]2686 traMADol 50 MG tablet Activity: no lifting, [...] 6:48 AM documented in this encounter [employer] Phone: 10-30-2022 History of Present illness Narrative Internal Medicine Progress Note NATHALIE=[facility] Shanta Hernandez D.O., UbaldoA.CBaldoOBaldoIBaldo Mason D.O., UbaldoABaldoCBaldoOBaldoIShabana DeleonOBaldo Kilpatrick, MSN, YARD LOADER OPERATOR, GRAPHIC PRE PRESS TRADES WORKER-C Yang Hsu, MSN, YARD LOADER OPERATOR-INTERSTATE BUS DRIVER Primary Care Physician: KAELA ARELLANO APRN - INTERSTATE BUS DRIVER Admitting Physician: Deric Florence MD Admission date and time: 10/29/2022 6:02 AM Room: [address] [place] [address] Admitting diagnosis: Morbid obesity (HCC) [E66.01] Post-operative [...] reflux disease with possible hiatal hernia repair Lho-ygvhtip-ygxthvetp diabetes mellitus type 2 Anxiety Plan: Batool [...] 6:37 AM documented in this encounter [facility] [employer] Phone: 10-24-2022 History of Present illness Narrative Images from the original note were not included. [facility] PRE OP INSTRUCTIONS FOR Batool Kingsley Date: [...] makeup (including no eye makeup) or nail belizean on your fingers or toes. DO NOT wear any jewelry or piercings on day of surgery. All body piercing jewelry must be removed. Shower the night before surgery with _x__Antibacterial soap /CHG WIPES___x If you have a Living Will and Durable Power of Insulation Applicator for Healthcare, please bring in a copy. [...] and go to information desk Please call FINISHING FRAME RUNNER if you have any further questions. Pre Admit Testing [phone] [facility] [phone] documented in this encounter FLORIDALMA GIPSON [employer] Phone: 05-04-2022 Hospital Discharge instructions Ashlie Goyal [...] the day after the test, use an uqxb-grw-wauiycg spray to numb your throat. Follow-up care [...] Where can you learn more? Go to [email or web address] and sign in to your [employer] account. Enter J454 in the Search Health Information box to learn more about Upper GI Endoscopy: What to Expect at Home. If you do not have an account, please click on the Sign Up Now link. Current as of: December 04, 2021 Content Version: 13.4 [employer]. Care instructions adapted under license by [employer]. If you have questions about a medical condition or this instruction, always ask your healthcare professional. [employer] disclaims any warranty or liability for your use of this information. documented in this encounter [facility] [employer] Work Phone: 05-04-2022 History of Present illness Narrative SBAR form completed and placed on chart. Chart with patient in transit. Images from the original note were not included. [facility] PRE OP INSTRUCTIONS FOR Batool Kingsley Date: [...] makeup (including no eye makeup) or nail belizean on your fingers or toes. DO NOT wear any jewelry or piercings on day of surgery. All body piercing jewelry must be removed. Shower the night before surgery with _x__Antibacterial soap /ALEXANDER WIPES TOTAL JOINT REPLACEMENT/HYSTERECTOMY PATIENTS ONLY---Remember to bring Blood Bank bracelet to the hospital on the day of surgery. If you have a Living Will and Durable Power of Insulation Applicator for Healthcare, please bring in a copy. [...] safety of all patients. Other Please call FINISHING FRAME RUNNER if you have any further questions. Pre Admit Testing [phone] [facility] [phone] documented in this encounter [employer] Phone: Evaluation note Diagnosis DUB (dysfunctional uterine bleeding)- Primary Other disorder of menstruation and other abnormal bleeding from female genital tract documented in this encounter [employer] Phone: evaluation note* Diagnosis Gastroesophageal reflux disease- Primary Esophageal reflux Morbid obesity due to excess calories (HCC) documented in this encounter [employer] Phone: evaluation note* Diagnosis Morbid obesity (HCC)- Primary Morbid obesity Preop testing- Primary Preoperative examination, unspecified 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 Morbid obesity (HCC) Morbid obesity documented in this encounter [employer] Phone: evaluation note* Diagnosis S/P gastric bypass- Primary Bariatric surgery status Morbid obesity (HCC) Morbid obesity Post-operative state Other postprocedural status Morbid obesity (HCC) Morbid obesity Post-operative state Other postprocedural status documented in this encounter [employer] Phone: evaluation note* Diagnosis 27 weeks gestation [...] trimester state, incidental documented in this encounter [facility]ospital Discharge instructions* Attachments The following attachments cannot be sent through Care Everywhere. * AUB (Abnormal Uterine Bleeding) (Andorran) [facility]: Summary Purpose Family History No [...] section and content) DATE CREATED AUTHOR 07/16/2020 [facility] hector Gupta DATE CREATED AUTHOR AUTHOR'S ORGANIZ ATION 05/05/2022 [facility] DATE CREATED AUTHOR AUTHOR'S ORGANIZ ATION 02/07/2023 [facility] DATE CREATED AUTHOR AUTHOR'S ORGANIZ ATION 06/04/2023 [facility] DATE CREATED AUTHOR AUTHOR'S ORGANIZ ATION 02/19/2024 [facility] DATE CREATED AUTHOR AUTHOR'S ORGANIZ ATION 06/19/2024 [facility] DATE CREATED AUTHOR AUTHOR'S ORGANIZ ATION 06/30/2024 [facility] Reason for Visit (unrecogniz ed section and content) Reason Comments Vaginal Bleeding 4 pad per hour, larg e clots present Specialty Diagnoses / Procedures Referred By Geronimo reardon Referred To Contact Diagnoses Gastroesophageal reflux disease Gastroesophageal reflux disease [K21.9] Procedures VA EGD TRANSORAL BIOPSY SINGLE/MULTIPLE VA EGD TRANSORAL BIOPSY SINGLE/MULTIPLE VA ESOPHAGOGASTRODUODENOSCOPY TRANSORAL DIAGNOSTIC VA EGD BALLOON DILATION ESOPHAGUS <30 MM DIAM EGD ESOPHAGOGASTRODUODENOSCOPY Deric Florence MD [address] [place], [place] [address] [address] [place] [address] [facility] [address] [place] [address] Referral ID Status Reason Start Date Expiration Date Visits Re quested Visits Authorized [id number] 1 1 Specialty Diagnoses / Procedures Referred By Geronimo reardon Referred To Contact Diagnoses Morbid obesity (HCC) Morbid obesity (HCC) [E66.01] Procedures VA LAPS GSTR RSTCV PX W/BYP NUNO-EN-Y LIMB <150 CM GASTRIC BYPASS NUNO-EN-Y LAPAROSCOPIC Deric Florence MD [address] [place], [place] [address] [address] [place] [address] [facility] [address] [place] [address] Referral ID Status Reason Start Date Expiration Date Visits Re quested Visits Authorized [id number] 1 1 Reason Comments Routine Visit Continuous [...] 100 mL IVPB (COMPLETED) 3,000 mg, IntraVENous, ECONOMIC RESEARCH ANALYST TO O.R., 1 dose, On Sat10/29/22 at [...] Huff, MELANIA)[phone] (Given - Provider: Jennifer Huff, MELANIA)1215 (Due)1815 (Due) methocarbamol (ROBAXIN) injection 1,000 mg [...] of order., Post-op bupivacaine-EPINEPHrine PF (MARCAINE-w/EPINEPHrine) 0.25% -[id number] injection (CANCELED) PRN, Starting on Sat10/29/22 at [...]
Care Teams (unrecognized sec tion and content) Rn Diabetes Educator Relationship Specialty Start Date End Date Kaela ArellanoSARAI - [facility] [address] [place] [address] PCP - General Certified Nurse Practitioner 04/27/22 Rn Diabetes Educator Relationship Specialty Start Date End Date Kaela Arellano YARD 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 [id number] [place] [address] PCP - General Certified Nurse Practitioner 09/14/22 Rn Diabetes Educator Relationship Specialty Start Date End Date Kaela Arellano, YARD 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 [address] [place] [address] PCP - General Certified Nurse Practitioner 09/14/22 [...] BE BASED ON THE PRIMARY CLINICAL RECORDS. [facility] provides no warranty or guarantee of the accuracy or completeness of information in this document.
[2024-07-02 11:26] LABS: Basophils Absolute Auto 0.1 10^3/uL (0.0-0.1); Basophils Percent Auto 0.6 % (0.2-2.0); Eosinophils Absolute Auto 0.2 10^3/uL (0.0-0.7); Hematocrit 28.3 % (36.0-48.0); Hemoglobin 9.1 g/dL (12.0-16.0); Immature Granulocytes Abs Auto 0.21 10^3/uL (0.00-0.03); Immature Granulocytes Pct Auto 2.5 % (0.0-0.5); Lymphocytes Absolute Auto 2.7 10^3/uL (1.2-3.8); Lymphocytes Percent Auto 31.8 % (20.5-60.0); Mean Corpuscular HGB Conc 32.2 g/dL (29.9-35.2); Mean Corpuscular Hemoglobin 29.9 pg (26.7-34.0); Mean Corpuscular Volume 93.1 fL (81.0-99.0); Mean Platelet Volume 9.6 fL (9.5-13.5); Monocytes Absolute Auto 0.3 10^3/uL (0.3-0.8); Monocytes Percent Auto 3.6 % (1.7-12.0); Neutrophils Absolute Auto 5.1 10^3/uL (1.4-6.5); Neutrophils Percent Auto 59.5 % (43.0-75.0); Platelet Count 337 10^3/uL (150-450); Red Blood Count 3.04 10^6/uL (4.20-5.40); Red Cell Distribution Width 12.8 % (11.0-15.0); White Blood Count 8.5 10^3/uL (4.0-11.0)
--- NOTE | 2024-07-02 11:57 | PC.NURSE ---
1110- Dr. Dyer at bedside and completes wound care. Incision packed and redressed per Dr. Dyer. CBC order obtained and lab to room to draw.
== END 2024-07-02 11:30 | disposition home or self-care (01) ==
LOC: FBCO 03:48 → FBC 10:46
PROVIDERS: Visit Provider Obstetrics & Gynecology
DX: Z48.89 Encounter for other specified surgical aftercare (principal)
CPT/HCPCS: 36415; 85025; 87070

== ENCOUNTER 2024-07-05 08:30 | Outpatient (RCR) | payer OTHER, SELFPAY ==
--- NOTE | 2024-07-05 09:30 | PC.NURSE ---
0855- Dr. Dyer at bedside and completes wound care. Dressing changed and supplies provided for patient to complete dressing changes at home.
== END 2024-07-05 09:15 | disposition home or self-care (01) ==
LOC: FBC 08:30
PROVIDERS: Visit Provider Obstetrics & Gynecology
DX: Z48.00 Encounter for change or removal of nonsurgical wound dressing (principal)

== ENCOUNTER 2024-08-10 21:48 | Outpatient (REF) | payer OTHER, SELFPAY ==
--- OUTSIDE RECORDS SUMMARY | 2024-08-10 21:53 | XMS_ITS | CCD ---
Author Organization [facility] Care Team Providers Care Access Liaison Name Role Phone Unavailable Primary Care Provider Unavailabl e [place] CHRONOGRAPH OPERATOR - SHERIE, Kaela Primary Care Provider [phone] DERIC FLORENCE Referring Unavailable GILLIAN, KAELA Primary Care Unavailable [place] CHRONOGRAPH OPERATOR - MACHINE BINDING FOLDER, Kaela Primary Care Provider [phone] GILLIAN, KAELA Primary Care Unavailable DERIC FLORENCE Referring Unavailable GILLIAN, KAELA Primary Care Unavailable DERIC FLORENCE Admitting Unavailable DERIC FLORENCE Attending Unavailable CHRISTIN MASON Unavailable GILLIAN, KAELA Primary Care Unavailable DERIC FLORENCE Admitting Unavailable DERIC FLORENCE Attending Unavailable GILLIAN, KAELA Primary Care Unavailable GILLIAN, KAEAL Attending Unavailable GILLIAN, KAELA Primary Care Unavailable [...] Primary Care Unavailable SY REARDON Attending Unavailable ESE DYERY R Referring Unavailable NO PCP, NO PCP Primary Care Unavailable Unavailable Primary Care Provider Unavailabl e NO PCP, NO PCP Primary Care Unavailable KENDRA MURPHY Referring Unavailable NO PCP, NO PCP Primary Care Unavailable TRAVIS PINEDA Primary Care Unavailable NO PCP, NO PCP Primary Care Unavailable SARI STANLEY Attending Unavailable Manisha, Bryan Admitting Unavailable Ese Dyery Attending Unavailable Eugene Siu Attending Unavailable Eugene Siu Admitting Unavailable NO FAMILY, PHYSICIAN Primary Care Unavailable Sharmila Chappell Admitting Unavailable Sharmila Chappell Attending Unavailable MANISHA, BRYAN Attending Unavailable MANISHA, BRYAN Attending Unavailable MANISHA, BRYAN Attending Unavailable MANISHA, BRYAN Attending Unavailable MANISHA, BRYAN Attending Unavailable KAELA, KIERRA Attending Unavailable MANISHA, BRYAN Attending Unavailable KAELA, KIERRA Attending Unavailable MANISHA, BRYAN Attending Unavailable MANISHA, BRYAN Attending Unavailable MANISHA, BRYAN Attending Unavailable MANISHA, BRYAN Attending Unavailable Travis Pineda PA-C Primary Care Provider Medications Current Medications Medication Drug Class(es) Dates Sig (Normalized) Sig (Original) [id number] 200 actuat albuterol 0.09 mg/actuat metered dose inhaler (20 sources) beta2-Adrenergic Agonist Start: 01-11-2023 albuterol HFA 90 mcg/act inhaler 01/11/2023 Active Applicators (Q-Tips/Single-Tip) swab (9 sources) Start: 07-02-2024 Applicators (Q-Tips/Single-Tip) swab Indications: Postoperative seroma of skin after non-dermatologic procedure DISPENSE STERILE Q-Tips for dressing changes as directed. 100 each 07/02/2024 Active calcium chloride 0.0014 meq/ml / potassium [...] (1000 UT) CAPS daily 0 10/05/2021 Suspended ciprofloxacin 500 mg oral tablet (1 source) Quinolone Antimicrobial Start: 07-07-2024 End: 07-14-2024 take 1 tablet by mouth in the morning ciprofloxacin (Cipro) 500 MG tablet Indications: Urinary Tract Infection Take 1 tablet (500 mg) by mouth in the morning and 1 tablet (500 mg) before bedtime. Do all this for 7 days. 14 tablet 07/07/2024 07/14/2024 Active citalopram 20 mg oral tablet (11 sources) Serotonin Reuptake Inhibitor Start: 05-06-2024 End: 05-06-2025 take 1 tablet by mouth once daily citalopram (CeleXA) 20 MG tablet Indications: Anxiety, generalized (CMS/HCC) Take 1 tablet (20 mg) by mouth Daily 30 tablet 5 07/10/2024 01/06/2025 Active docusate sodium 100 mg oral capsule (6 sources) Start: 07-02-2024 End: 08-01-2024 take 1 capsule by mouth in the morning docusate sodium (Colace) 100 MG capsule Indications: Constipation, unspecified constipation type Take 1 capsule (100 mg) by mouth in the morning and 1 capsule (100 mg) before bedtime. 60 capsule 1 07/02/2024 08/01/2024 Active Gauze Pads & Dressings (Abdominal Pad) 8 X10 pads (9 sources) Start: 07-02-2024 Gauze Pads & Dressings (Abdominal Pad) 8 X10 pads Indications: Postoperative seroma of skin after non-dermatologic procedure DISPENSE ABD pads for dressing changes as directed. 25 each 3 07/02/2024 Active 1000 ml glucose 100 mg/ml injection [...] polysaccharide iron complex 391 mg oral capsule (20 sources) Start: 07-02-2024 End: 08-01-2024 take 1 capsule by mouth once daily iron polysaccharides (ProFe) 391.3 (180 Fe) MG capsule Indications: Postoperative anemia Take 1 capsule (391.3 mg) by mouth Daily 30 capsule 6 07/02/2024 08/01/2024 Active Start: 03-12-2024 End: 06-10-2024 take 1 capsule by mouth once daily iron polysaccharides (ProFe) 391.3 (180 Fe) MG capsule Indications: Anemia affecting in second trimester Take 1 capsule (391.3 mg) by mouth Daily 30 capsule 2 03/12/2024 06/10/2024 Potassium Chloride (1 source) Start: 10-29-2022 potassium chlo ride (KLOR-CON M) extended release tablet 40 mEq sodium phosphate 25.77 mmol in sodium chloride 0.9 % 250 mL IVPB (1 source) Start: 10-29-2022 sodium phospha te 25.77 mmol in sodium chloride 0.9 % [...] 4times daily. 1 kit 02/19/2024 02/18/2025 Active diphenhydrAMINE hydrochloride 25 mg oral capsule (20 sources) Histamine-1 Receptor Antagonist Start: 05-25-2024 End: 08-04-2024 take 1 capsule by mouth every six hours diphenhydrAMINE (Benadryl Allergy) 25 MG capsule Indications: Insomnia, unspecified type Take 1 capsule (25 mg) by mouth every 6 (six) hours if needed for itching for up to 10 days 30 capsule 05/25/2024 08/04/2024 Discontinued 0.5 ml dulaglutide 3 mg/ml auto-injector [...] or Vomiting 15 tablet 0 10/17/2022 Active Vit-Fe Fumarate-FA ( Plus/Iron) 27-1 MG tablet (20 sources) Start: 12-17-2023 End: 08-04-2024 take 1 tablet by mouth once daily Vit-Fe Fumarate-FA ( Plus/Iron) 27-1 MG tablet Indications: Missed menses Take 1 tablet by mouth Daily 30 tablet 12/17/2023 08/04/2024 Discontinued Start: 12-17-2023 End: 12-16-2024 take 1 tablet by mouth once daily Vit-Fe Fumarate-FA ( Plus/Iron) 27-1 MG tablet Indications: Missed menses Take 1 tablet by mouth Daily 30 tablet 12/17/2023 12/16/2024 Active 2 ml prochlorperazine 5 mg/ml injection [...] Complications of surgical procedures or medical care (11 sources) Postprocedural seroma of skin and subcutaneous tissue following other procedure; Translations: [Postoperative seroma] Onset: 4 07-02-2024 Episodic Diabetes mellitus without complication (4 sources) Type 2 diabetes mellitus without complication; Translations: [Type 2 diabetes mellitus without complications] Onset: 2 09-13-2022 Chronic Diabetes mellitus without complication (4 sources) Prediabetes; Translations: [Abnormal glucose tolerance test] Onset: 3 Episodic Disorders of lipid metabolism (2 sources) [...] episode, unspecified] Onset: 2 09-13-2022 Chronic Other aftercare (2 sources) Postoperative visit; Translations: [Encounter for other specified surgical aftercare] 07-07-2024 Episodic Other aftercare (4 sources) Wound finding; Translations: [Encounter for other specified aftercare] 07-21-2024 Episodic Other complications of ; puerperium affecting management of mother (1 source) Other complications of the puerperium, not elsewhere classified; Translations: [Other complications of the puerperium, not elsewhere classified] Onset: 5 Episodic Other complications of (2 sources) Obesity complicating [...] bleeding] Onset: 2 Chronic Other gastrointestinal disorders (20 sources) History of bypass of stomach; Translations: [...] in childhood] Onset: 09-21-2021 09-13-2022 Episodic Diabetes or abnormal glucose tolerance complicating ; childbirth; or the puerperium (20 sources) Gestational diabetes mellitus; Translations: [Gestational diabetes mellitus in , unspecified control] Onset: 05-25-2024 Resolved: 06-29-2024 4 Episodic Gastrointestinal hemorrhage (2 sources) Hemorrhage of [...] CBC WITH AUTO DIFFon BASOPHILS ABSOLUTE AUTO 0.1 [facility] Basophils/100 WBC (Bld) 0.6 % 0.2 - 2.0 % [facility] Eosinophils/100 WBC (Bld) 2 % 0.9 - 7.0 % [facility] Erythrocyte distribution width (RBC) [Ratio] 12.8 % 11.0 - 15.0 % [facility] Hematocrit (Bld) [Volume fraction] 28.3 % Low 36.0 - 48.0 % [facility] Hemoglobin (Bld) [Mass/Vol] 9.1 g/dL Low 12.0 - 16.0 g/dL [facility] IMMATURE GRANULOCYTES ABS AUTO 0.21 High [facility] Immature granulocytes/100 WBC (Bld) 2.5 % High 0.0 - 0.5 % [facility] Interpretation and review of laboratory results Abnormal [facility] LYMPHOCYTES ABSOLUTE AUTO 2.7 [facility] Lymphocytes/100 WBC (Bld) 31.8 % 20.5 - 60.0 % [facility] MCH (RBC) [Entitic mass] 29.9 pg 26.7 - 34.0 pg [facility] MCHC (RBC) [Mass/Vol] 32.2 g/dL 29.9 - 35.2 g/dL [facility] MCV (RBC) [Entitic vol] 93.1 fL 81.0 - 99.0 fL [facility] MONOCYTES ABSOLUTE AUTO 0.3 [facility] Monocytes/100 WBC (Bld) 3.6 % 1.7 - 12.0 % [facility] NEUTROPHILS ABSOLUTE AUTO 5.1 [facility] Neutrophils/100 WBC (Bld) 59.5 % 43.0 - 75.0 % [facility] Platelet mean volume (Bld) [Entitic vol] 9.6 fL 9.5 - 13.5 fL [facility] EO # 0[facility]2 [facility] 3[facility]04 Low [facility] WBC 8.5 [facility] Aerobic Cultureon 06-27-2024 Aerobic Culture WOUND SITE ORGANISM: Klebsiella pneumoniae (O:KLEPNE) Quantity of Growth Moderate Growth ORGANISM: Staphylococcus aureus (O:STAAUR) Quantity of Growth Moderate Growth WOUND SITE ORGANISM: Prevotella bivia (O:PREBIV) Quantity of Growth Moderate Growth ORGANISM: Prevotella disiens (O:PREDIS) Quantity of Growth Moderate Growth Please contact Microbiology within 7 days if anaerobic susceptibilities are needed. WOUND SITE Gram Stain Result No White Blood Cells Seen 1+ Gram Positive Cocci Rare Gram Negative Bacilli Aerobic SALINA Charge (NMIC56) ------ SUSCEPTIBILITY ----- ORGANISM: O:KLEPNE ANTIBIOTIC INTERPRETATION SALINA Amikacin S <16 Amoxacillin/K Clavulanate S <8 Ampicillin/Sulbacta m S <4 Aztreonam S <4 Cefazolin S <2 Cefepime S <2 Ceftazidime S <1 Ceftazidime/Avibact am S <4 Ceftolozane/Tazobac keyes S <2 Ceftriaxone S <1 Cefuroxime S <4 Ciprofloxacin S <0.25 Ertapenem S <0.5 Gentamicin S <2 Levofloxacin S <0.5 Meropenem S <1 Meropenem/Vaborbact am S <2 Piperacillin/Tazoba ctam S <8 Tetracycline S <4 Tigecycline S <2 Tobramycin S <2 Trimethoprim/Sulfam ethoxazole S <0.5 Aerobic SALINA Charge (PCMIC38) ------ SUSCEPTIBILITY ----- ORGANISM: O:STAAUR ANTIBIOTIC INTERPRETATION SALINA Azithromycin S <2 Ceftaroline S <0.5 Ciprofloxacin S <1 Clindamycin S <0.25 Daptomycin S <0.5 Levofloxacin S <1 Linezolid S 2 Oxacillin S <0.25 Penicillin S <0.03 Tetracycline S <4 Trimethoprim/Sulfam ethoxazole S <0.5 Vancomycin S 1 S = SUSCEPTIBLE I = INTERMEDIATE R = RESISTANT BLANK = DATA NOT AVAILABLE, OR DRUG NOT ADVISABLE OR TESTED R* = RESISTANCE DUE TO EXTENDED SPECTRUM BETA-LACTAMASES ESBL = EXTENDED SPECTRUM BETA-LACTAMASE TFG = THYMIDINE-DEPENDENT STRAIN JOSE = BETA-LACTAMASE POSITIVE IB = INDUCIBLE BETA-LACTAMASE. APPEARS IN PLACE OF 'S' WITH SPECIES KNOWN TO POSSESS INDUCIBLE BETA-LACTAMASES. POTENTIALLY THEY MAY BECOME RESISTANT TO ALL B-LACTAM DRUGS. PERFORMED BY: [facility] [address] [place] [address] PATHOLOGIST TELESALES TEAM LEADER MEGHAN SINCLAIR M.D. Normal [facility] Comment on above: Performed By: #### A CALDERON, GS #### [facility] [address] [id number] [place] BLOOD CULTUREon 06-27-2024 Bacteria identified Aer cx Nom (Bld) CULTURE RESULTS NO GROWTH 5 DAYS Normal [facility] Bacteria identified Aer cx Nom (Bld) CULTURE RESULTS NO GROWTH 5 DAYS Normal [facility] CBC AND AUTO DIFFon 06-27-20 24 ABSOLUTE BASOPHIL 0.0 X10E9/L Normal 0.0-0.2 [facility] Comment on above: Performed By: #### C BCA, CMP #### [facility] ([id number]) [address] [place] [address] ABSOLUTE NEUTROPHIL 5.5 X10E9/L Normal 1.5-6.6 [facility] Comment on above: Performed By: #### C EARNEST, CMP #### [facility] ([id number]) [address] [place] [address] 19159 Basophils/100 WBC (Bld) 0.3 % Normal [facility] Comment on above: Performed By: #### C BCA, CMP #### [facility] ([id number]) [address] [place] [address]686 Eosinophils (Bld) [#/Vol] 0.2 10*3/uL Normal 0.0-0.4 [facility] Comment on above: Performed By: #### C BCA, CMP #### [facility] ([id number]) [address] [place] [address] 14429 Eosinophils/100 WBC (Bld) 2.2 % Normal [facility] Comment on above: Performed By: #### C BCA, CMP #### [facility] ([id number]) [address] [place] [address] 16942 Erythrocyte distribution width (RBC) [Ratio] 13.8 % Normal 11.5-15.0 [facility] Comment on above: Performed By: #### C BCA, CMP #### [facility] ([id number]) [address] [place] [address]75 Hematocrit (Bld) [Volume fraction] 26.1 % Low 35-47 [facility] Comment on above: Performed By: #### C BCA, CMP #### [facility] ([id number]) [address] [place] [address]15 Hemoglobin (Bld) [Mass/Vol] 9.0 g/dL Low 11.7-15.5 [facility] Comment on above: Performed By: #### C EARNEST, CMP #### [facility] ([id number]) [address] [place] [address] 01198 Lymphocytes (Bld) [#/Vol] 2.2 10*3/uL Normal 1.0-3.5 [facility] Comment on above: Performed By: #### C EARNEST, CMP #### [facility] ([id number]) [address] [place] [address] 82254 Lymphocytes/100 WBC (Bld) 26.6 % Normal [facility] Comment on above: Performed By: #### C EARNEST, CMP #### [facility] ([id number]) [address] [place] [address] 58126 MCH (RBC) [Entitic mass] 31.7 pg Normal 27-34 [facility] Comment on above: Performed By: #### C BCA, CMP #### [facility] ([id number]) [address] [place] [address] 39147 MCHC (RBC) [Mass/Vol] 34.4 g/dL Normal 32-36 [facility] Comment on above: Performed By: #### C BCA, CMP #### [facility] ([id number]) [address] [place] [address] 34622 MCV (RBC) [Entitic vol] 92 fL Normal 80-100 [facility] Comment on above: Performed By: #### C BCA, CMP #### [facility] ([id number]) [address] [place] [address] 55514 Monocytes (Bld) [#/Vol] 0.4 10*3/uL Normal 0-0.9 [facility] Comment on above: Performed By: #### C BCA, CMP #### [facility] ([id number]) [address] [place] [address] 64192 Monocytes/100 WBC (Bld) 4.9 % Normal [facility] Comment on above: Performed By: #### C BCA, CMP #### [facility] ([id number]) [address] [place] [address] 69796 Neutrophils/100 WBC (Bld) 66.0 % Normal [facility] Comment on above: Performed By: #### C EARNEST, CMP #### [facility] ([id number]) [address] [place] [address] 14572 Platelet mean volume (Bld) [Entitic vol] 7.5 fL Normal 7-12 [facility] Comment on above: Performed By: #### C EARNEST, CMP #### [facility] ([id number]) [address] [place] [address] 65736 Platelets (Bld) [#/Vol] 365 10*3/uL Normal 150-450 [facility] Comment on above: Performed By: #### C BCA, CMP #### [facility] ([id number]) [address] [place] [address] 10113 RBC COUNT 2.84 X10E12/L Low 3.80-5.20 [facility] Comment on above: Performed By: #### C BCA, CMP #### [facility] ([id number]) [address] [place] [address] 07605 WBC (Bld) [#/Vol] 8.4 10*3/uL Normal 4.0-11.0 [facility] Comment on above: Performed By: #### C BCA, CMP #### [facility] ([id number]) [address] [place] [address] [place] [address] COMPREHENSIVE METABOLIC PANE Evan 06-27-2024 Albumin [Mass/Vol] 2.8 g/dL Low 3.2-5.3 [facility] Comment on above: Performed By: #### C BCA, CMP #### [facility] ([id number]) [address] [place] [address] 52723 ALP [Catalytic activity/Vol] 60 U/L Normal 39-130 [facility] Comment on above: Performed By: #### C BCA, CMP #### [facility] ([id number]) [address] [place] [address] 54735 ALT [Catalytic activity/Vol] 9 U/L Normal 0-31 [facility] Comment on above: Performed By: #### C BCA, CMP #### [facility] ([id number]) [address] [place] [address] 44747 Anion gap [Moles/Vol] 9 mmol/L Normal 5-15 [facility] Comment on above: Performed By: #### C BCA, CMP #### [facility] ([id number]) [address] [place] [address] 90113 AST [Catalytic activity/Vol] 11 U/L Normal 0-41 [facility] Comment on above: Performed By: #### C BCA, CMP #### [facility] ([id number]) [address] [place] [address] 05116 Bilirubin [Mass/Vol] 0.4 mg/dL Normal 0.3-1.2 [facility] Comment on above: Performed By: #### C BCA, CMP #### [facility] ([id number]) [address] [place] [address] 99983 Calcium [Mass/Vol] 8.2 mg/dL Low 8.5-10.5 [facility] Comment on above: Performed By: #### C BCA, CMP #### [facility] ([id number]) [address] [place] [address] 28657 Chloride [Moles/Vol] 108 mmol/L Normal 98-109 [facility] Comment on above: Performed By: #### C BCA, CMP #### [facility] ([id number]) [address] [place] [address] 60309 CO2 [Moles/Vol] 24 mmol/L Normal 22-32 [facility] Comment on above: Performed By: #### C BCA, CMP #### [facility] ([id number]) [address] [place] [address] 29394 Creatinine [Mass/Vol] 0.59 mg/dL Normal 0.40-1.00 [facility] Comment on above: Result Comment: METH OD TRACEABLE TO IDMS STANDARD Performed By: #### C EARNEST, CMP #### [facility] ([id number]) [address] [place] [address] 03026 eGFR (CKD-EPI) NON-RACE DEPENDENT >90 Normal >59 [facility] Comment on above: Result Comment: Reported eGFR is based on the CKD-EPI 2020 equation that does not use a race coefficient. Performed By: #### C BCA, CMP #### [facility] ([id number]) [address] [place] [address] 22546 Glucose [Mass/Vol] 84 mg/dL Normal 65-99 [facility] Comment on above: Performed By: #### C BCA, CMP #### [facility] ([id number]) [address] [place] [address] 31335 Potassium [Moles/Vol] 3.8 mmol/L Normal 3.5-5.0 [facility] Comment on above: Performed By: #### C BCA, CMP #### [facility] ([id number]) [address] [place] [address] 85140 Protein [Mass/Vol] 6.2 g/dL Normal 6.0-8.0 [facility] Comment on above: Performed By: #### C BCA, CMP #### [facility] ([id number]) [address] [place] [address] 13790 Sodium [Moles/Vol] 141 mmol/L Normal 134-146 [facility] Comment on above: Performed By: #### C BCA, CMP #### [facility] ([id number]) [address] [place] [address] 03091 Urea nitrogen [Mass/Vol] 11 mg/dL Normal 5-23 [facility] Comment on above: Performed By: #### C BCA, CMP #### [facility] ([id number]) [address] [place] [address] ABDOMEN AND PELVIS W CONT on [...] Worthy MD on 06/27/2024 1:03 PM Normal [facility] Gram Stainon 06-27-2024 Microscopic observation Gram stain Nom (Unsp spec) WOUND SITE Gram Stain Result No White Blood Cells Seen 1+ Gram Positive Cocci Rare Gram Negative Bacilli PERFORMED BY: [place] [address] PATHOLOGIST TELESALES TEAM LEADER MEGHAN SINCLAIR M.D. Normal [facility] Comment on above: Performed By: #### A [facility] #### [address] Lactate (P brennen) [Moles/Vol]o n 06-27-2024 LACTATE W/REFLEX 0.7 mmol/L Normal 0.4-2.0 [facility] Comment on above: Result Comment: Result did not trigger repeat Lactate, re-order if needed. Performed By: #### 3 2133-1 #### [facility] ([id number]) [address] [place] [address], [place] [address] SUPERFICIAL WOUND CULTUREon 06-27-2024 Bacteria identified Aer [...] 0.25 F DOXYCYCLINE S <=0.5 F Susceptible [facility] Comment on above: Performed By: #### 6 32-0 #### [facility] ([id number]) [address], [address] [place] [address] ALL CBC WITH AUTO DIFFon BASOPHILS ABSOLUTE [...] (Bld) 74.9 % 43.0 - 75.0 % [facility] Platelet mean volume (Bld) [Entitic vol] 10.8 fL 9.5 - 13.5 fL [facility] EO # 0 [facility] PLT 138 Low [facility] RBC 2.55 Low [facility] WBC 6.7 [facility] Evan 06-19-2024 L Specimen: [id number] Received: 06/19/24 Status: KANDI Arnold Num: [id number] Spec Type: Surgical Subm Dr: Bryan Dyer Tissues: A Placenta - 3rd Trimester (Greater than 28 weeks) (PLACENTA) Procedures: HE/Christy, Gross/Micro L5 Age/ Patient Sex Location Account Attending Physician Batool Kingsley 24/ LABELL [id number] Bryan Dyer SPEC NUM: [id number] RECD: 06/19/24 STATUS: MEGANEnrico ARNOLD NUM: [id number] LUIS: 06/19/24- SUBM DR: Bryan Dyer ENTERED: 06/19/[address] [facility] [address]: SPEC TYPE: Surgical DEPT: AYANA BOLTON ENTERED BY: [id number] RECV BY: [id number] ORDERED: HE/3, Gross/Micro L5 ORDERED: HE/3, Gross/Micro L5 Pathological Diagnosis Placental removal, delivery: -Mature third-trimester placenta with three-vessel cord, small for gestational age (381 g) -No evidence of acute chorioamnionitis, umbilical funisitis, or villitis -Patchy mild acute deciduitis of the membrane is however observed -Patchy mild acute sub-chorionitis at surface with associated acute vasculitis are also identified, per effect of mild ascending infection -Incidental mild hyper rotation of the cord -Incidental multiple rubbery nodules, including 1 examined subacute infarction nodule (A2) -No other significant pathological findings except patchy mild nonspecific lymphocytic chronic inflammation in decidual layer Clinical Information heart decelerations, failure to progress, G1, P0, Apgars 8, 9, gestational age of 37 weeks and 4 days Gross Description Part A is received in formalin labeled with the patients name, date of , and placenta : Single MEMBRANES: Placenta Sac Rupture (cm from margin): Indeterminate, 45% disrupted Specimen: [id number] Received: 06/19/24 Status: KANDI Arnold Num: [id number] Spec Type: Surgical Subm Dr: Bryan Dyer Tissues: A Placenta - 3rd Trimester (Greater than 28 weeks) (PLACENTA) Procedures: Francis NORRIS/Jordin L5 Patient: Batool Kingsley N [id number] (Continued) Specimen: [id number] Received: 06/19/24 (Continued) Gross Description (Continued) Signed (signatur e on file) Rebecca Hui MD 06/23/24 1044 Specimen: [id number] Received: 06/19/24 Status: KANDI Arnold Num: [id number] Spec Type: Surgical Subm Dr: Bryan Dyer Tissues: A Placenta - 3rd Trimester (Greater than 28 weeks) (PLACENTA) Procedures: FELECIAFrancis Harrison/Jordin L5 Patient: Batool Kingsley [id number] (Continued) Specimen: [id number] Received: 06/19/24-130 (Continued) Gross Description (Continued) Color: Blue-quigley Other Characteristics: Partially stripped amnion Insertion Site: Marginal 100% CORD: Appearance: Unremarkable Site of Insertion: Eccentric, 6 cm from the margin Length Diameter (cm): 17.5 x 1.4 cm with 8 revolutions True Knots: No Number of vessels: 3 GENERAL: Trimmed Weight (grams): 381 g Complete: Yes Size 1 x Size 2 x Size 3 (cm): 18 x 17 x 2 cm Accessory Lobe(s): No PLACENTAL DISK: Color of Surface: Blue-quigley Sub-amniotic Cyst: No Amnion Nodosum: No Subchorionic Fibrin: Yes, up to 0.3 cm in thickness, less than 5% Appearance of Cut Surface: There is a paracentrally located, quigley-haq, 9 laminated rubbery area, 2.5 cm in greatest dimension and less than 5%, which may represent intervillous fibrin Maternal floor: Unremarkable Retroplacental hematoma: No Cassettes: A1 Rolled membrane, two sections of cord A2-A3 Ethics Manager sections of placenta (to include rubbery area in A2) (3, , [id number] A) JG Microscopic Description Microscopic examinations are performed supporting the above interpretation CPT Codes 70159 Specimen: [id number] Received: 06/19/24 Status: KANDI Arnold Num: [id number] Spec Type: Surgical Subm Dr: Bryan Armstrong (more content not included)... Normal [facility] CBC WITH PLATELET NO DI FFERENTIALon 06-18-2024 [...] vol] 11.6 fL 9.5 - 13.5 fL [facility] TBH PLT 211 [facility] TBH [...] Hospital pH, UA 7 5 - 9 [facility] e Protein, UA Negative Negative - 1999(20) ++++ mg/dL [facility] Spec Grav, UA 1.025 1 - 1.03 [facility] Urobilinogen, UA 1.0 0.2 - 12 mg/dL [facility] ALL MISCELLANEOUS TESTon MISCELLANEOUS TEST COMMENT . [facility] Comment on above: Test Ordered: [id number] Strep Gp B USJATA+Rflx Strep Gp B SUJATA+Rflx Negative CB Reference Range: Negative Centers for Disease Control and Prevention (CDC) and [place] [employer] of Obstetricians and Gynecologists (ACOG) guidelines [...] to clindamycin is noted. Performed at: - [facility] [id number] Personalization Specialist: Guillermo Gu PhD, Phone: [phone] VAG/REC [id number] Group B Streptococcus Colonization Detection, SUJATA With Refle [facility] Urinalysis macro (dipstick) panel (U)on 06-10-2024 Bilirubin, UA Negative Negative - 4(70) +++ mg/dL [facility] Blood, UA Negative Negative - 50 Marcus/mcL [facility] Clarity, UA Clear [facility] re Color, UA Yellow [facility] Glucose, UA Negative Negative [...] Hospital pH, UA 5.5 5 - 9 [facility] Protein, UA Trace Negative - 1999(20) ++++ mg/dL [facility] Spec Grav, UA 1.03 1 - 1.03 [facility] Urobilinogen, UA 1.0 0.2 - 12 mg/dL [facility] Urinalysis macro (dipstick) panel (U)on 05-25-2024 Bilirubin, UA Negative Negative - 4(70) +++ mg/dL [facility] Blood, UA Negative Negative - 50 Marcus/mcL [facility] Clarity, UA Clear [facility] re Color, UA Yellow [facility] Glucose, UA Negative Negative - 1999(110) ++++ mg/dL [facility] Interpretation and review of laboratory results Normal [facility] Ketones, UA Negative Negative - 160(16) ++++ mg/dL [facility] Leukocytes, UA Negative Negative - 500+++ Hernique/mcL [facility] Nitrite, UA Negative Negative - Positive [facility] pH, UA 5.5 5 - 9 [facility] Protein, UA Negative Negative - 1999(20) ++++ mg/dL [facility] Spec Grav, UA 1.03 1 - 1.03 [facility] Urobilinogen, UA 0.2 0.2 - 12 mg/dL [facility] Urinalysis macro (dipstick) panel (U)on 05-06-2024 Bilirubin, UA Positive Negative - 4(70) +++ mg/dL [facility] Comment on above: small Blood, UA Negative Negative - 50 Marcus/mcL [facility] Clarity, UA Clear [facility] re Color, UA Yellow [facility] Glucose, UA Negative Negative - 1999(110) ++++ mg/dL [facility] Interpretation and review of laboratory results Abnormal [facility] Ketones, UA Negative Negative - 160(16) ++++ mg/dL [facility] Leukocytes, UA Negative Negative - 500+++ Henrique/mcL [facility] Nitrite, UA Negative Negative - Positive [facility] pH, UA 5.5 5 - 9 [facility] Protein, UA Negative Negative - 1999(20) ++++ mg/dL [facility] Spec Grav, UA 1.03 1 - 1.03 [facility] Urobilinogen, UA 1.0 0.2 - 12 mg/dL [facility] ALL CBC WITH [...] [facility] TBH EO # 0.2 [facility] TBH PLT 249 [facility] e TB RBC 3.63 Low [facility] TBH WBC 9.6 [facility] Urinalysis macro (dipstick) panel (U)on 04-07-2024 Bilirubin, UA Negative Negative - 4(70) +++ mg/dL [facility] Blood, UA Negative Negative - 50 Marcus/mcL [facility] Clarity, UA Clear [facility] re Color, UA Yellow [facility] e Glucose, UA Negative Negative - 1999(110) ++++ mg/dL [facility] Interpretation and review of laboratory results Normal [facility] Ketones, UA Negative Negative - 160(16) ++++ mg/dL [facility] Leukocytes, UA Negative Negative - 500+++ Henrique/mcL [facility] Nitrite, UA Negative Negative - Positive [facility] pH, UA 6.5 5 - [address] [facility] Protein, UA Negative Negative - 1999(20) ++++ mg/dL [facility] Spec Grav, UA 1.025 1 - 1.03 [facility] Urobilinogen, UA 1.0 0.2 - 12 mg/dL [facility] e ALL CBC WITH AUTO DIFFon BASOPHILS [...] [facility] TBH EO # 0.1 [facility] TB RBC 3.18 Low [facility] TB WBC 9.4 [facility] Urinalysis macro (dipstick) panel (U)on 03-09-2024 Bilirubin, UA Negative Negative - 4(70) +++ mg/dL [facility] Blood, UA Negative Negative - 50 Marcus/mcL [facility] Clarity, UA Clear [facility] re Color, UA Yellow [facility] e Glucose, UA Negative Negative - 1999(110) ++++ mg/dL [facility] Interpretation and review of laboratory results Abnormal [facility] Ketones, UA Positive Negative - 160(16) ++++ mg/dL [facility] Comment on above: trace Leukocytes, UA Negative Negative - 500+++ Henrique/mcL [facility] Nitrite, UA Negative Negative - Positive [facility] pH, UA 6.5 5 - 9 [facility] Protein, UA Negative Negative - 1999(20) ++++ mg/dL [facility] Spec Grav, UA 1.030 1 - 1.03 [facility] Urobilinogen, UA 1.0 0.2 - 12 mg/dL [facility] HCG ( test) Ql (U)o n 11-10-2023 Beta HCG ( test) Ql (U) Positive Abnormal NEG [facility] Comment on above: Performed By: #### 2 106-3 #### [facility] ([id number]) [address] [place] [address] [place] [address] URN MACROSCOPIC NURon 2023 BILIRUBIN [place] Negative Normal NEG [facility] Comment on above: Performed By: #### N UM #### [facility] ([id number]) [address] [place] [address] [place] [address] BLOOD/HGB [place] Trace Abnormal NEG [facility] Comment on above: Performed By: #### N UM #### [facility] ([id number]) [address] [place] [address] [place] [address] GLUCOSE [place] Negative Normal NEG [facility] Comment on above: Performed By: #### N UM #### [facility] ([id number]) [address] [place] [address] [place] [address] KETONES [place] Trace Abnormal NEG [facility] Comment on above: Performed By: #### N UM #### [facility] ([id number]) [address] [place] [address] [place] [address] LEUKOCYTE ESTERASE [place] Small Abnormal NEG [facility] Comment on above: Performed By: #### N UM #### [facility] ([id number]) [address] [place] [address] [place] [address] NITRITE [place] Negative Normal NEG [facility] Comment on above: Performed By: #### N UM #### [facility] ([id number]) [address] [place] [address] [place] [address] PH [place] 6.0 Normal 5.0-8.5 [facility] Comment on above: Performed By: #### N UM #### [facility] ([id number]) [address] [place] [address] [place] [address] PROTEIN [place] Negative Normal NEG [facility] Comment on above: Performed By: #### N UM #### [facility] ([id number]) [address] [place] [address] SPECIFIC GRAVITY [place] 1.025 Normal 1.003-1.035 [facility] Comment on above: Performed By: #### N UM #### [facility] ([id number]) [address], [place] [address] UROBILINOGEN [place] 2.0 eu/dL High <1.1 [facility] Comment on above: Performed By: #### N UM #### [facility] ([id number]) [address], [place] [address] SARS/FLU A+B/RSV by NAAT/Mol ecularon 08-14-2023 SARS/FLU [...] operators who are performing tests using either GeneXCiapple DX or GeneAREVSity systems and is limited to laboratories that [...] repeat. Fact Sheet for Healthcare Providers: https://www.fda.gov /media/872959/downl oad Fact Sheet for Patients: https://www.fda.gov /media/651888/downl oad Normal [facility] Comment on above: Performed By: #### C OVFLR #### [facility] ([id number]) [address] [place] [address], [place] [address] VITAMIN B1-THIAMINE WHOLE BL Don 12-20-2022 VITAMIN B1-THIAMINE WHOLE BLD 142.2 nmol/L Normal 66.5-200.0 [facility] Comment on above: Order Comment: FAX R ESULTS TO DR FLORENCE: [phone] Result Comment: This test was developed and its performance characteristics determined by [employer]. It has not been cleared or approved by the Food and Drug Administration. Performed at: [address] [id number] Personalization Specialist: Estuardo Michelle MD, Phone: [phone] This test was developed and its performance characteristics determined by [employer]. It has not been cleared or approved by the Food and Drug Administration. Performed By: #### V ITB1, ZINC #### [facility] [address] [place] [address] #### B12, FOL, CMP, PREALB, ANDREZ, CBCD #### [facility] [address] [place] [address] ZINC, PLASMAon 12-18-2022 ZINC, PLASMA 86 ug/dL Normal 44-115 [facility] Comment on above: Order Comment: FAX R ESLAMAR TO DR FLORENCE: [phone] Result Comment: This test was developed and its performance characteristics determined by [employer]. It has not been cleared or approved by the Food and Drug Administration. Detection Limit = 5 Performed at: [address] [id number] Personalization Specialist: Estuardo Michelle MD, Phone: [phone] This test was developed and its performance characteristics determined by [facility]. It has not been cleared or approved by the Food and Drug Administration. Performed By: #### V ITB1, ZINC #### [facility] [address] [place] [address] #### B12, FOL, CMP, PREALB, ANDREZ, CBCD #### [facility] [address] [place] [address] CBC with DIFFERENTIALon 11-29 Basophils (Bld) [#/Vol] 0.0 10*3/uL Normal 0.0-0.1 [facility] Comment on above: Order Comment: FAX R ESULTS TO DR FLORENCE: [phone] Performed By: #### V ITB1, ZINC #### [facility] [address] [place] [address] #### B12, FOL, CMP, PREALB, ANDREZ, CBCD #### [facility] [address] [place] [address] Basophils/100 WBC (Bld) 0.5 % Normal 0.0-1.0 [facility] Comment on above: Order Comment: FAX R ESULTS TO DR FLORENCE: [phone] Performed By: #### V ITB1, ZINC #### [facility] [address] [place] [address] #### B12, FOL, CMP, PREALB, ANDREZ, CBCD #### [facility] [address] [place] [address] Eosinophils (Bld) [#/Vol] 0.4 10*3/uL Normal 0.0-0.4 [facility] Comment on above: Order Comment: FAX R ESULTS TO DR FLORENCE: [phone] Performed By: #### V ITB1, ZINC #### [facility] [address] [place] [address] #### B12, FOL, CMP, PREALB, ANDREZ, CBCD #### [facility] [address] [place] [address] Eosinophils/100 WBC (Bld) 4.8 % High 1.0-4.0 [facility] Comment on above: Order Comment: FAX R ESULTS TO DR FLORENCE: [phone] Performed By: #### V ITB1, ZINC #### [facility] [address] [place] [address] #### B12, FOL, CMP, PREALB, ANDREZ, CBCD #### [facility] [address] [place] [address] Hematocrit (Bld) [Volume fraction] 41.9 % Normal 37.0-47.0 [facility] Comment on above: Order Comment: FAX R ESULTS TO DR FLORENCE: [phone] Performed By: #### V ITB1, ZINC #### [facility] [address] [place] [address] #### B12, FOL, CMP, PREALB, ANDREZ, CBCD #### [facility] [address] [place] [address] Hemoglobin (Bld) [Mass/Vol] 13.8 g/dL Normal 12.0-16.0 [facility] Comment on above: Order Comment: FAX R ESULTS TO DR FLORENCE: [phone] Performed By: #### V ITB1, ZINC #### [facility] [address] [place] [address] #### B12, FOL, CMP, PREALB, ANDREZ, CBCD #### [facility] [address] [place] [address] IG # 0.0 10*3/uL Normal 0.0-0.1 [facility] Comment on above: Order Comment: FAX R ESULTS TO DR FLORENCE: [phone] Performed By: #### V ITB1, ZINC #### [facility] [address] [place] [address] #### B12, FOL, CMP, PREALB, ANDREZ, CBCD #### [facility] [address] [place] [address] IG % 0.4 % Normal 0.0-1.0 [facility] Comment on above: Order Comment: FAX R ESULTS TO DR FLORENCE: [phone] Performed By: #### V ITB1, ZINC #### [facility] [address] [place] [address] #### B12, FOL, CMP, PREALB, ANDREZ, CBCD #### [facility] [address] [place] [address] Lymphocytes (Bld) [#/Vol] 3.8 10*3/uL Normal 1.3-4.4 [facility] Comment on above: Order Comment: FAX R ESULTS TO DR FLORENCE: [phone] Performed By: #### V ITB1, ZINC #### [facility] [address] [place] [address] #### B12, FOL, CMP, PREALB, ANDREZ, CBCD #### [facility] [address] [place] [address] Lymphocytes/100 WBC (Bld) 45.5 % High 27.0-41.0 [facility] Comment on above: Order Comment: FAX R ESULTS TO DR FLORENCE: [phone] Performed By: #### V ITB1, ZINC #### [facility] [address] [place] [address] #### B12, FOL, CMP, PREALB, ANDREZ, CBCD #### [facility] [address] [place] [address] MCV (RBC) [Entitic vol] 89.3 fL Normal 81.0-99.0 [facility] Comment on above: Order Comment: FAX R ESULTS TO DR FLORENCE: [phone] Performed By: #### V ITB1, ZINC #### [facility] [address] [place] [address] #### B12, FOL, CMP, PREALB, ANDREZ, CBCD #### [facility] [address] [place] [address] MEAN CORPUSCULAR HGB 29.4 pg Normal 27.0-31.0 [facility] Comment on above: Order Comment: FAX R ESULTS TO DR FLORENCE: [phone] Performed By: #### V ITB1, ZINC #### [facility] [address] [place] [address] #### B12, FOL, CMP, PREALB, ANDREZ, CBCD #### [facility] [address] [place] [address] MEAN CORPUSCULAR HGB [place] 32.9 g/dl Low 33.0-37.0 [facility] Comment on above: Order Comment: FAX R ESULTS TO DR FLORENCE: [phone] Performed By: #### V ITB1, ZINC #### [facility] [address] [place] [address] #### B12, FOL, CMP, PREALB, ANDREZ, CBCD #### [facility] [address] [place] [address] Monocytes (Bld) [#/Vol] 0.4 10*3/uL Normal 0.1-1.0 [facility] Comment on above: Order Comment: FAX R ESULTS TO DR FLORENCE: [phone] Performed By: #### V ITB1, ZINC #### [facility] [address] [place] [address] #### B12, FOL, CMP, PREALB, ANDREZ, CBCD #### [facility] [address] [place] [address] Monocytes/100 WBC (Bld) 4.3 % Normal 3.0-9.0 [facility] Comment on above: Order Comment: FAX R ESULTS TO DR FLORENCE: [phone] Performed By: #### V ITB1, ZINC #### [facility] [address] [place] [address] #### B12, FOL, CMP, PREALB, ANDREZ, CBCD #### [facility] [address] [place] [address] Neutrophils (Bld) [#/Vol] 3.7 10*3/uL Normal 2.3-7.9 [facility] Comment on above: Order Comment: FAX R ESULTS TO DR FLORENCE: [phone] Performed By: #### V ITB1, ZINC #### [facility] [address] [place] [address] #### B12, FOL, CMP, PREALB, ANDREZ, CBCD #### [facility] [address] [place] [address] Neutrophils/100 WBC (Bld) 44.5 % Low 47.0-73.0 [facility] Comment on above: Order Comment: FAX R ESULTS TO DR FLORENCE: [phone] Performed By: #### V ITB1, ZINC #### [facility] [address] [place] [address] #### B12, FOL, CMP, PREALB, ANDREZ, CBCD #### [facility] [address] [place] [address] NUCLEATED RED BLOOD CELL 0.0 10*3/uL Normal 0.0-0.0 [facility] Comment on above: Order Comment: FAX R ESULTS TO DR FLORENCE: [phone] Performed By: #### V ITB1, ZINC #### [facility] [address] [place] [address] #### B12, FOL, CMP, PREALB, ANDREZ, CBCD #### [facility] [address] [place] [address] NUCLEATED RED BLOOD CELL 0.0 % Normal 0.0-0.0 [facility] Comment on above: Order Comment: FAX R ESULTS TO DR FLORENCE: [phone] Performed By: #### V ITB1, ZINC #### [facility] [address] [place] [address] #### B12, FOL, CMP, PREALB, ANDREZ, CBCD #### [facility] [address] [place] [address] PLATELET COUNT AUTOMATED 277 10*3/uL Normal 130-400 [facility] Comment on above: Order Comment: FAX R ESULTS TO DR FLORENCE: [phone] Performed By: #### V ITB1, ZINC #### [facility] [address] [place] [address] #### B12, FOL, CMP, PREALB, ANDREZ, CBCD #### [facility] [address] [place] [address] Platelet mean volume (Bld) [Entitic vol] 11.2 fL Normal 9.6-12.3 [facility] Comment on above: Order Comment: FAX R ESULTS TO DR FLORENCE: [phone] Performed By: #### V ITB1, ZINC #### [facility] [address] [place] [address] #### B12, FOL, CMP, PREALB, ANDREZ, CBCD #### [facility] [address] [place] [address] RBC (Bld) [#/Vol] 4.69 10*6/uL Normal 4.10-5.10 [facility] Comment on above: Order Comment: FAX R ESULTS TO DR FLORENCE: [phone] Performed By: #### V ITB1, ZINC #### [facility] [address] [place] [address] #### B12, FOL, CMP, PREALB, ANDREZ, CBCD #### [facility] [address] [place] [address] RED CELL DISTRI WIDTH 13.5 % Normal 0-14.5 [facility] Comment on above: Order Comment: FAX R ESULTS TO DR FLORENCE: [phone] Performed By: #### V ITB1, ZINC #### [facility] [address] [place] [address] #### B12, FOL, CMP, PREALB, ANDREZ, CBCD #### [facility] [address] [place] [address] WBC (Bld) [#/Vol] 8.3 10*3/uL Normal 4.8-10.8 [facility] Comment on above: Order Comment: FAX R ESULTS TO DR FLORENCE: Performed By: #### V ITB1, ZINC #### [facility] [address] [place] [address] #### B12, FOL, CMP, PREALB, ANDREZ, CBCD #### [facility] [address] [place] [address] COMPREHENSIVE METABOLIC PANE Evan 12-14-2022 Albumin [Mass/Vol] 3.8 g/dL Normal 3.4-5.0 [facility] Comment on above: Order Comment: FAX R ESULTS TO DR FLORENCE: [phone] Performed By: #### V ITB1, ZINC #### [facility] [address] [place] [address] #### B12, FOL, CMP, PREALB, ANDREZ, CBCD #### [facility] [address] [place] [address] ALP [Catalytic activity/Vol] 74 U/L Normal 46-116 [facility] Comment on above: Order Comment: FAX R ESULTS TO DR FLORENCE: [phone] Performed By: #### V ITB1, ZINC #### [facility] [address] [place] [address] #### B12, FOL, CMP, PREALB, ANDREZ, CBCD #### [facility] [address] [place] [address] ALT [Catalytic activity/Vol] 34 U/L Normal 10-49 [facility] Comment on above: Order Comment: FAX R ESULTS TO DR FLORENCE: Performed By: #### V ITB1, ZINC #### [facility] [address] [place] [address] #### B12, FOL, CMP, PREALB, ANDREZ, CBCD #### [facility] [address] [place] [address] AST [Catalytic activity/Vol] 19 U/L Normal 0-34 [facility] Comment on above: Order Comment: FAX R ESULTS TO DR FLORENCE: [phone] Performed By: #### V ITB1, ZINC #### [facility] [address] [place] [address] #### B12, FOL, CMP, PREALB, ANDREZ, CBCD #### [facility] [address] [place] [address] Bilirubin [Mass/Vol] 0.3 mg/dL Normal 0.3-1.2 [facility] Comment on above: Order Comment: FAX R ESULTS TO DR FLORENCE: [phone] Performed By: #### V ITB1, ZINC #### [facility] [address] [place] [address] #### B12, FOL, CMP, PREALB, ANDREZ, CBCD #### [facility] [address] [place] [address] CALCIUM,TOTAL 9.0 md/dL Normal 8.7-10.4 [facility] Comment on above: Order Comment: FAX R ESULTS TO DR FLORENCE: [phone] Performed By: #### V ITB1, ZINC #### [facility] [address] [place] [address] #### B12, FOL, CMP, PREALB, ANDREZ, CBCD #### [facility] [address] [place] [address] Chloride [Moles/Vol] 109 mmol/L High 98-107 [facility] Comment on above: Order Comment: FAX R ESULTS TO DR FLORENCE: [phone] Performed By: #### V ITB1, ZINC #### [facility] [address] [place] [address] #### B12, FOL, CMP, PREALB, ANDREZ, CBCD #### [facility] [address] [place] [address] CO2 [Moles/Vol] 27 mmol/L Normal 20-31 [facility] Comment on above: Order Comment: FAX R ESULTS TO DR FLORENCE: [phone] Performed By: #### V ITB1, ZINC #### [facility] [address] [place] [address] #### B12, FOL, CMP, PREALB, ANDREZ, CBCD #### [facility] [address] [place] [address] Creatinine [Mass/Vol] 0.62 mg/dL Normal 0.55-1.02 [facility] Comment on above: Order Comment: FAX R ESULTS TO DR FLORENCE: [phone] Performed By: #### V ITB1, ZINC #### [facility] [address] [place] [address] #### B12, FOL, CMP, PREALB, ANDREZ, CBCD #### [facility] [address] [place] [address] EST GLOM FILT > 60 Normal [facility] Comment on above: Order Comment: FAX R ESULTS TO DR FLORENCE: [phone] Result Comment: Result Units: mL/min/1.73 m2 Note: [...] By: #### V ITB1, ZINC #### [facility] [address] [place] [address] #### B12, FOL, CMP, PREALB, ANDREZ, CBCD #### [facility] [address] [place] [address] ESTIMATED GLOM FILT RATE > 60 Normal [facility] Comment on above: Order Comment: FAX R ESULTS TO DR FLORENCE: [phone] Performed By: #### V ITB1, ZINC #### [facility] [address] [place] [address] #### B12, FOL, CMP, PREALB, ANDREZ, CBCD #### [facility] [address] [place] [address] Glucose [Mass/Vol] 103 mg/dL High 65-99 [facility] Comment on above: Order Comment: FAX R ESULTS TO DR FLORENCE: [phone] Performed By: #### V ITB1, ZINC #### [facility] [address] [place] [address] #### B12, FOL, CMP, PREALB, ANDREZ, CBCD #### [facility] [address] [place] [address] Potassium [Moles/Vol] 3.6 mmol/L Normal 3.4-5.1 [facility] Comment on above: Order Comment: FAX R ESULTS TO DR FLORENCE: [phone] Performed By: #### V ITB1, ZINC #### [facility] [address] [place] [address] #### B12, FOL, CMP, PREALB, ANDREZ, CBCD #### [facility] [address] [place] [address] Protein [Mass/Vol] 6.5 g/dL Normal 6.0-8.0 [facility] Comment on above: Order Comment: FAX R ESULTS TO DR FLORENCE: [phone] Performed By: #### V ITB1, ZINC #### [facility] [address] [place] [address] #### B12, FOL, CMP, PREALB, ANDREZ, CBCD #### [facility] [address] [place] [address] Sodium [Moles/Vol] 138 mmol/L Normal 136-145 [facility] Comment on above: Order Comment: FAX R ESULTS TO DR FLORENCE: [phone] Performed By: #### V ITB1, ZINC #### [facility] [address] [place] [address] #### B12, FOL, CMP, PREALB, ANDREZ, CBCD #### [facility] [address] [place] [address] Urea nitrogen [Mass/Vol] 8 mg/dL Low 9- [facility] Comment on above: Order Comment: FAX R ESULTS TO DR FLORENCE: [phone] Performed By: #### V ITB1, ZINC #### [facility] [address] [place] [address] #### B12, FOL, CMP, PREALB, ANDREZ, CBCD #### [facility] [address] [place] [address] FERRITINon 12-14-2022 Ferritin [Mass/Vol] 40.9 ng/mL Normal 7.3-307.3 [facility] Comment on above: Order Comment: FAX R ESULTS TO DR FLORENCE: [phone] Performed By: #### V ITB1, ZINC #### [facility] [address] [place] [address] #### B12, FOL, CMP, PREALB, ANDREZ, CBCD #### [facility] [address] [place] [address] FOLIC ACIDon 12-14-2022 FOLIC ACID 16.04 ng/mL Normal 5.38-24.00 [facility] Comment on above: Order Comment: FAX R ESULTS TO DR FLORENCE: [phone] Result Comment: 0.35 - 3.7 ng/mL - Folate Deficiency 3.38 - 5.38 ng/mL - Indeterminate > 5.38 ng/mL - Normal Performed By: #### V ITB1, ZINC #### [facility] [address] [place] [address] #### B12, FOL, CMP, PREALB, ANDREZ, CBCD #### [facility] [address] [place] [address] PREALBUMINon 12-14-2022 Prealbumin [Mass/Vol] 16 mg/dL Normal 10-40 [facility] Comment on above: Order Comment: JENNIFER COLIN TO DR FLORENCE: [phone] Performed By: #### V ITB1, ZINC #### [facility] [address] [place] [address] #### B12, FOL, CMP, PREALB, ANDREZ, CBCD #### [facility] [address] [place] [address]68[address] VITAMIN B12on 12-14-2022 Cobalamin (Vitamin B12) [Mass/Vol] 261 pg/mL Normal 211-911 [facility] Comment on above: Order Comment: JENNIFER COLIN TO DR FLORENCE: [phone] Result Comment: 247 - 911 pg/mL - Normal, Vitamin B12 Sufficiency Performed By: #### V ITB1, ZINC #### [facility] [address] [place] [address] #### B12, FOL, CMP, PREALB, ANDREZ, CBCD #### [facility] [address] [place] [address] CBC with DIFFERENTIALon Basophils (Bld) [#/Vol] 0.0 10*3/uL Normal 0.0-0.1 [facility] Comment on above: Performed By: #### V ITB1, ZINC #### [facility] [address] [place] [address] #### B12, FOL, CMP, PREALB, ANDREZ, CBCD #### [facility] [address] [place] [address] Basophils/100 WBC (Bld) 0.6 % Normal 0.0-1.0 [facility] Comment on above: Performed By: #### V ITB1, ZINC #### [facility] [address] [place] [address] #### B12, FOL, CMP, PREALB, ANDREZ, CBCD #### [facility] [address] [place] [address] Eosinophils (Bld) [#/Vol] 0.4 10*3/uL Normal 0.0-0.4 [facility] Comment on above: Performed By: #### V ITB1, ZINC #### [facility] [address] [place] [address] #### B12, FOL, CMP, PREALB, ANDREZ, CBCD #### [facility] [address] [place] [address] Eosinophils/100 WBC (Bld) 6.0 % High 1.0-4.0 [facility] Comment on above: Performed By: #### V ITB1, ZINC #### [facility] [address] [place] [address] #### B12, FOL, CMP, PREALB, ANDREZ, CBCD #### [facility] [address] [place] [address] Hematocrit (Bld) [Volume fraction] 42.2 % Normal 37.0-47.0 [facility] Comment on above: Performed By: #### V ITB1, ZINC #### [facility] [address] [place] [address] #### B12, FOL, CMP, PREALB, ANDREZ, CBCD #### [facility] [address] [place] [address] Hemoglobin (Bld) [Mass/Vol] 14.0 g/dL Normal 12.0-16.0 [facility] Comment on above: Performed By: #### V ITB1, ZINC #### [facility] [address] [place] [address] #### B12, FOL, CMP, PREALB, ANDREZ, CBCD #### [facility] [address] [place] [address] IG # 0.0 10*3/uL Normal 0.0-0.1 [facility] Comment on above: Performed By: #### V ITB1, ZINC #### [facility] [address] #### B12, FOL, CMP, PREALB, ANDREZ, CBCD #### [facility] [address] [place] [address] IG % 0.2 % Normal 0.0-1.0 [facility] Comment on above: Performed By: #### V ITB1, ZINC #### [facility] [address] #### B12, FOL, CMP, PREALB, ANDREZ, CBCD #### [facility] [address] [place] [address] Lymphocytes (Bld) [#/Vol] 3.4 10*3/uL Normal 1.3-4.4 [facility] Comment on above: Performed By: #### V ITB1, ZINC #### [facility] [address] [place], [place] [address] #### B12, FOL, CMP, PREALB, ANDREZ, CBCD #### [facility] [address] [place] [address] Lymphocytes/100 WBC (Bld) 53.6 % High 27.0-41.0 [facility] Comment on above: Performed By: #### V ITB1, ZINC #### [facility] [address] [place] [address] #### B12, FOL, CMP, PREALB, ANDREZ, CBCD #### [facility] [address] [place] [address] MCV (RBC) [Entitic vol] 88.5 fL Normal 81.0-99.0 [facility] Comment on above: Performed By: #### V ITB1, ZINC #### [facility] [address] [place] [address] #### B12, FOL, CMP, PREALB, ANDREZ, CBCD #### [facility] [address] [place] [address] MEAN CORPUSCULAR HGB 29.4 pg Normal 27.0-31.0 [facility] Comment on above: Performed By: #### V ITB1, ZINC #### [facility] [address] [place] [address] #### B12, FOL, CMP, PREALB, ANDREZ, CBCD #### [facility] [address] [place] [address] 61753 MEAN CORPUSCULAR HGB CONC 33.2 g/dl Normal 33.0-37.0 [facility] Comment on above: Performed By: #### V ITB1, ZINC #### [facility] [address] [place] [address] #### B12, FOL, CMP, PREALB, ANDREZ, CBCD #### [facility] [address] [place] [address] 22597 Monocytes (Bld) [#/Vol] 0.3 10*3/uL Normal 0.1-1.0 [facility] Comment on above: Performed By: #### V ITB1, ZINC #### [facility] [address] [place] [address] #### B12, FOL, CMP, PREALB, ANDREZ, CBCD #### [facility] [address] [place] [address] Monocytes/100 WBC (Bld) 4.8 % Normal 3.0-9.0 [facility] Comment on above: Performed By: #### V ITB1, ZINC #### [facility] [address] [place] [address] #### B12, FOL, CMP, PREALB, ANDREZ, CBCD #### [facility] [address] [place] [address] 11346 Neutrophils (Bld) [#/Vol] 2.2 10*3/uL Low 2.3-7.9 [facility] Comment on above: Performed By: #### V ITB1, ZINC #### [facility] [address] [place] [address] #### B12, FOL, CMP, PREALB, ANDREZ, CBCD #### [facility] [address] [place] [address] 22734 Neutrophils/100 WBC (Bld) 34.8 % Low 47.0-73.0 [facility] Comment on above: Performed By: #### V ITB1, ZINC #### [facility] [address] [place] [address] #### B12, FOL, CMP, PREALB, ANDREZ, CBCD #### [facility] [address] [place], [place] [address] NUCLEATED RED BLOOD CELL 0.0 10*3/uL Normal 0.0-0.0 [facility] Comment on above: Performed By: #### V ITB1, ZINC #### [facility] [address] [place] [address] #### B12, FOL, CMP, PREALB, ANDREZ, CBCD #### [facility] [address] [place] [address] NUCLEATED RED BLOOD CELL 0.0 % Normal 0.0-0.0 [facility] Comment on above: Performed By: #### V ITB1, ZINC #### [facility] [address] [place] [address] #### B12, FOL, CMP, PREALB, ANDREZ, CBCD #### [facility] [address] [place] [address] 40241 PLATELET COUNT AUTOMATED 265 10*3/uL Normal 130-400 [facility] Comment on above: Performed By: #### V ITB1, ZINC #### [facility] [address] [place] [address] #### B12, FOL, CMP, PREALB, ANDREZ, CBCD #### [facility] [address] [place] [address] 03666 Platelet mean volume (Bld) [Entitic vol] 11.3 fL Normal 9.6-12.3 [facility] Comment on above: Performed By: #### V ITB1, ZINC #### [facility] [address] [place] [address] #### B12, FOL, CMP, PREALB, ANDREZ, CBCD #### [facility] [address] [place] [address] RBC (Bld) [#/Vol] 4.77 10*6/uL Normal 4.10-5.10 [facility] Comment on above: Performed By: #### V ITB1, ZINC #### [facility] [address] [place] [address] #### B12, FOL, CMP, PREALB, ANDREZ, CBCD #### [facility] [address] [place] [address] RED CELL DISTRI WIDTH 13.9 % Normal 0-14.5 [facility] Comment on above: Performed By: #### V ITB1, ZINC #### [facility] [address] [place] [address] #### B12, FOL, CMP, PREALB, ANDREZ, CBCD #### [facility] [address] [place] [address] WBC (Bld) [#/Vol] 6.3 10*3/uL Normal 4.8-10.8 [facility] Comment on above: Performed By: #### V ITB1, ZINC #### [facility] [address] [place] [address] #### B12, FOL, CMP, PREALB, ANDREZ, CBCD #### [facility] [address] [place] [address] 55914 COMPREHENSIVE METABOLIC PANE Evan 12-03-2022 Albumin [Mass/Vol] 4.0 g/dL Normal 3.4-5.0 [facility] Comment on above: Performed By: #### V ITB1, ZINC #### [facility] [address] [place] [address] #### B12, FOL, CMP, PREALB, ANDREZ, CBCD #### [facility] [address] [place] [address] 19322 ALP [Catalytic activity/Vol] 69 U/L Normal 46-116 [facility] Comment on above: Performed By: #### V ITB1, ZINC #### [facility] [address] [place] [address] #### B12, FOL, CMP, PREALB, ANDREZ, CBCD #### [facility] [address] [place] [address] 62760 ALT [Catalytic activity/Vol] 79 U/L High 10-49 [facility] Comment on above: Performed By: #### V ITB1, ZINC #### [facility] [address] [place] [address] #### B12, FOL, CMP, PREALB, ANDREZ, CBCD #### [facility] [address] [place] [address] 96952 AST [Catalytic activity/Vol] 31 U/L Normal 0-34 [facility] Comment on above: Performed By: #### V ITB1, ZINC #### [facility] [address] [place] [address] #### B12, FOL, CMP, PREALB, ANDREZ, CBCD #### [facility] [address] [place] [address] 95260 Bilirubin [Mass/Vol] 0.4 mg/dL Normal 0.3-1.2 [facility] Comment on above: Performed By: #### V ITB1, ZINC #### [facility] [address] [place] [address] #### B12, FOL, CMP, PREALB, ANDREZ, CBCD #### [facility] [address] [place] [address] 65297 CALCIUM,TOTAL 9.1 md/dL Normal 8.7-10.4 [facility] Comment on above: Performed By: #### V ITB1, ZINC #### [facility] [address] [place] [address] #### B12, FOL, CMP, PREALB, ANDREZ, CBCD #### [facility] [address] [place] [address] 66348 Chloride [Moles/Vol] 109 mmol/L High 98-107 [facility] Comment on above: Performed By: #### V ITB1, ZINC #### [facility] [address] [place] [address] #### B12, FOL, CMP, PREALB, ANDREZ, CBCD #### [facility] [address] [place] [address] CO2 [Moles/Vol] 25 mmol/L Normal 20-31 [facility] Comment on above: Performed By: #### V ITB1, ZINC #### [facility] [address] [place] [address] #### B12, FOL, CMP, PREALB, ANDREZ, CBCD #### [facility] [address] [place] [address] Creatinine [Mass/Vol] 0.56 mg/dL Normal 0.55-1.02 [facility] Comment on above: Performed By: #### V ITB1, ZINC #### [facility] [address] [place] [address] #### B12, FOL, CMP, PREALB, ANDREZ, CBCD #### [facility] [address] [place] [address] EST GLOM FILT > 60 Normal [facility] Comment on above: Result Comment: Result Units: [...] #### V ITB1, ZINC #### [facility] [address] [place] [address] #### B12, FOL, CMP, PREALB, ANDRZE, CBCD #### [facility] [address] [place] [address] ESTIMATED GLOM FILT RATE > 60 Normal [facility] Comment on above: Performed By: #### V ITB1, ZINC #### [facility] [address] [place] [address] #### B12, FOL, CMP, PREALB, ANDREZ, CBCD #### [facility] [address] [place] [address] Glucose [Mass/Vol] 103 mg/dL High 65-99 [facility] Comment on above: Performed By: #### V ITB1, ZINC #### [facility] [address] [place] [address] #### B12, FOL, CMP, PREALB, ANDREZ, CBCD #### [facility] [address] [place] [address]305 Potassium [Moles/Vol] 3.8 mmol/L Normal 3.4-5.1 [facility] Comment on above: Performed By: #### V ITB1, ZINC #### [facility] [address] [place] [address] #### B12, FOL, CMP, PREALB, ANDREZ, CBCD #### [facility] [address] [place] [address] 95511 Protein [Mass/Vol] 6.7 g/dL Normal 6.0-8.0 [facility] Comment on above: Performed By: #### V ITB1, ZINC #### [facility] [address] [place] [address] #### B12, FOL, CMP, PREALB, ANDREZ, CBCD #### [facility] [address] [place] [address] 99592 Sodium [Moles/Vol] 141 mmol/L Normal 136-145 [facility] Comment on above: Performed By: #### V ITB1, ZINC #### [facility] [address] [place] [address] #### B12, FOL, CMP, PREALB, ANDREZ, CBCD #### [facility] [address] [place] [address] Urea nitrogen [Mass/Vol] 10 mg/dL Normal 9-23 [facility] Comment on above: Performed By: #### V ITB1, ZINC #### [facility] [address] [place] [address] #### B12, FOL, CMP, PREALB, ANDREZ, CBCD #### [facility] [address] [place] [address] [id number] 12-03-2022 ESTIMATED AVERAGE GLUCOSE 94 Normal [facility] Comment on above: Performed By: #### V ITB1, ZINC #### [facility] [address] [place] [address] #### B12, FOL, CMP, PREALB, ANDREZ, CBCD #### [facility] [address] [place] [address] HbA1c (Bld) [Mass fraction] 4.9 % Normal 4.8-5.6 [facility] Comment on above: Result Comment: Standarization of method based on National Glycohemoglobin Standardization Program (NGSP). HEMOGLOBIN A1c(%) DEGREE of GLUCOSE CONTROL 5.7-6.4% Prediabetes range >6.4% Diagnosis of Diabetes <7% Glycemic control for adults with Diabetes Performed By: #### V ITB1, ZINC #### [facility] [address] [place] [address] #### B12, FOL, CMP, PREALB, ANDREZ, CBCD #### [facility] [address] [place] [address] 18290 INSULINon 12-03-2022 INSULIN 14.2 mU/L Normal 2.6-37.6 [facility] Comment on above: Performed By: #### V ITB1, ZINC #### [facility] [address] [place] [address] #### B12, FOL, CMP, PREALB, ANDREZ, CBCD #### [facility] [address] [place] [address] LIPID PANEL CHOLESTEROL/HDLo n 12-03-2022 Cholesterol [Mass/Vol] 113 mg/dL Normal <200 [facility] Comment on above: Performed By: #### V ITB1, ZINC #### [facility] [address] [place] [address] #### B12, FOL, CMP, PREALB, ANDREZ, CBCD #### [facility] [address] [place] [address] Cholesterol in HDL [Mass/Vol] 26 mg/dL Low 40-60 [facility] Comment on above: Performed By: #### V ITB1, ZINC #### [facility] [address] [place] [address] #### B12, FOL, CMP, PREALB, ANDREZ, CBCD #### [facility] [address] [place] [address] 58920 Cholesterol in LDL [Mass/Vol] 52 mg/dL Normal 9-159 [facility] Comment on above: Performed By: #### V ITB1, ZINC #### [facility] [address] [place] [address] #### B12, FOL, CMP, PREALB, ANDREZ, CBCD #### [facility] [address] [place] [address] Cholesterol.total/Chol esterol in HDL [Mass ratio] 4.3 {ratio} Normal [facility] Comment on above: Performed By: #### V ITB1, ZINC #### [facility] [address] [place] [address] #### B12, FOL, CMP, PREALB, ANDREZ, CBCD #### [facility] [address] [place] [address] Triglyceride [Mass/Vol] 176 mg/dL High <150 [facility] Comment on above: Result Comment: TRIGLYCERIDE RISK ASSESSMENT: 150-199 mg/dl BORDERLINE HIGH >200 mg//dl HIGH . Performed By: #### V ITB1, ZINC #### [facility] [address] [place] [address] #### B12, FOL, CMP, PREALB, ANDREZ, CBCD #### [facility] [address] [place] [address] VLDL CHOLESTEROL 35 mg/dL Normal 6-40 [facility] Comment on above: Performed By: #### V ITB1, ZINC #### [facility] [address] [place] [address] #### B12, FOL, CMP, PREALB, ANDREZ, CBCD #### [facility] [address] [place] [address] CBC with DIFFERENTIALon 05-0 Basophils (Bld) [#/Vol] 0.0 10*3/uL Normal 0.0-0.1 [facility] Comment on above: Order Comment: FAX R ESULTS TO DR FLORENCE: [phone] Performed By: #### V ITB1, ZINC #### [facility] [address] [place] [address] #### B12, FOL, CMP, PREALB, ANDREZ, CBCD #### [facility] [address] [place] [address] Basophils/100 WBC (Bld) 0.3 % Normal 0.0-1.0 [facility] Comment on above: Order Comment: FAX R ESULTS TO DR FLORENCE: [phone] Performed By: #### V ITB1, ZINC #### [facility] [address] [place] [address] #### B12, FOL, CMP, PREALB, ANDREZ, CBCD #### [facility] [address] [place] [address]682 Eosinophils (Bld) [#/Vol] 0.2 10*3/uL Normal 0.0-0.4 [facility] Comment on above: Order Comment: FAX R ESULTS TO DR FLORENCE: [phone] Performed By: #### V ITB1, ZINC #### [facility] [address] [place] [address] #### B12, FOL, CMP, PREALB, ANDREZ, CBCD #### [facility] [address] [place] [address] Eosinophils/100 WBC (Bld) 3.2 % Normal 1.0-4.0 [facility] Comment on above: Order Comment: FAX R ESULTS TO DR FLORENCE: [phone] Performed By: #### V ITB1, ZINC #### [facility] [address] [place] [address] #### B12, FOL, CMP, PREALB, ANDREZ, CBCD #### [facility] [address] [place] [address]358 Hematocrit (Bld) [Volume fraction] 43.8 % Normal 37.0-47.0 [facility] Comment on above: Order Comment: FAX R ESULTS TO DR FLORENCE: [phone] Performed By: #### V ITB1, ZINC #### [facility] [address] [place] [address] #### B12, FOL, CMP, PREALB, ANDREZ, CBCD #### [facility] [address] [place] [address] 18363 Hemoglobin (Bld) [Mass/Vol] 14.3 g/dL Normal 12.0-16.0 [facility] Comment on above: Order Comment: FAX R ESULTS TO DR FLORENCE: [phone] Performed By: #### V ITB1, ZINC #### [facility] [address] [place] [address] #### B12, FOL, CMP, PREALB, ANDREZ, CBCD #### [facility] [address] [place] [address] 41753 IG # 0.1 10*3/uL Normal 0.0-0.1 [facility] Comment on above: Order Comment: FAX R STIVENULTS TO DR FLORENCE: [phone] Performed By: #### V ITB1, ZINC #### [facility] [address] [place] [address] #### B12, FOL, CMP, PREALB, ANDREZ, CBCD #### [facility] [address] [place] [address] IG % 0.7 % Normal 0.0-1.0 [facility] Comment on above: Order Comment: FAX R STIVENULTS TO DR FLORENCE: [phone] Performed By: #### V ITB1, ZINC #### [facility] [address] [place] [address] #### B12, FOL, CMP, PREALB, ANDREZ, CBCD #### [facility] [address] [place] [address] Lymphocytes (Bld) [#/Vol] 3.5 10*3/uL Normal 1.3-4.4 [facility] Comment on above: Order Comment: FAX R STIVENULTS TO DR FLORENCE: [phone] Performed By: #### V ITB1, ZINC #### [facility] [address] [place] [address] #### B12, FOL, CMP, PREALB, ANDREZ, CBCD #### [facility] [address] [place] [address] 92745 Lymphocytes/100 WBC (Bld) 46.7 % High 27.0-41.0 [facility] Comment on above: Order Comment: FAMaximo R CRISTI TO DR FLORENCE: [phone] Performed By: #### V ITB1, ZINC #### [facility] [address] [place] [address] #### B12, FOL, CMP, PREALB, ANDREZ, CBCD #### [facility] [address] [place] [address] 65875 MCV (RBC) [Entitic vol] 88.1 fL Normal 81.0-99.0 [facility] Comment on above: Order Comment: FAX R STIVENULTS TO DR FLORENCE: [phone] Performed By: #### V ITB1, ZINC #### [facility] [address] [place] [address] #### B12, FOL, CMP, PREALB, ANDREZ, CBCD #### [facility] [address] [place] [address] MEAN CORPUSCULAR HGB 28.8 pg Normal 27.0-31.0 [facility] Comment on above: Order Comment: FAX R STIVENULTS TO DR FLORENCE: [phone] Performed By: #### V ITB1, ZINC #### [facility] [address] [place] [address] #### B12, FOL, CMP, PREALB, ANDREZ, CBCD #### [facility] [address] [place] [address] 38735 MEAN CORPUSCULAR HGB CONC 32.6 g/dl Low 33.0-37.0 [facility] Comment on above: Order Comment: FAX R CRISTI TO DR FLORENCE: [phone] Performed By: #### V ITB1, ZINC #### [facility] [address] [place] [address] #### B12, FOL, CMP, PREALB, ANDREZ, CBCD #### [facility] [address] [place] [address] 71487 Monocytes (Bld) [#/Vol] 0.3 10*3/uL Normal 0.1-1.0 [facility] Comment on above: Order Comment: FAMaximo R CRISTI TO DR FLORENCE: [phone] Performed By: #### V ITB1, ZINC #### [facility] [address] [place] [address] #### B12, FOL, CMP, PREALB, ANDREZ, CBCD #### [facility] [address] [place] [address] Monocytes/100 WBC (Bld) 4.3 % Normal 3.0-9.0 [facility] Comment on above: Order Comment: JENNIFER COLIN TO DR FLORENCE: [phone] Performed By: #### V ITB1, ZINC #### [facility] [address] [place] [address] #### B12, FOL, CMP, PREALB, ANDREZ, CBCD #### [facility] [address] [place] [address] 08297 Neutrophils (Bld) [#/Vol] 3.4 10*3/uL Normal 2.3-7.9 [facility] Comment on above: Order Comment: JENNIFER COLIN TO DR FLORENCE: [phone] Performed By: #### V ITB1, ZINC #### [facility] [address] [place] [address] #### B12, FOL, CMP, PREALB, ANDREZ, CBCD #### [facility] [address] [place] [address] 15183 Neutrophils/100 WBC (Bld) 44.8 % Low 47.0-73.0 [facility] Comment on above: Order Comment: JENNIFER COLIN TO DR FLORENCE: [phone] Performed By: #### V ITB1, ZINC #### [facility] [address] [place] [address] #### B12, FOL, CMP, PREALB, ANDREZ, CBCD #### [facility] [address] [place] [address] 20726 NUCLEATED RED BLOOD CELL 0.0 10*3/uL Normal 0.0-0.0 [facility] Comment on above: Order Comment: JENNIFER COLIN TO DR FLORENCE: [phone] Performed By: #### V ITB1, ZINC #### [facility] [address] [place] [address] #### B12, FOL, CMP, PREALB, ANDREZ, CBCD #### [facility] [address] [place] [id number] NUCLEATED RED BLOOD CELL 0.0 % Normal 0.0-0.0 [facility] Comment on above: Order Comment: FAX R ESULTS TO DR FLORENCE: [phone] Performed By: #### V ITB1, ZINC #### [facility] [address] [place] [address] #### B12, FOL, CMP, PREALB, ANDREZ, CBCD #### [facility] [address] [place] [address] PLATELET COUNT AUTOMATED 347 10*3/uL Normal 130-400 [facility] Comment on above: Order Comment: FAX R ESULTS TO DR FLORENCE: [phone] Performed By: #### V ITB1, ZINC #### [facility] [address] [place] [address] #### B12, FOL, CMP, PREALB, ANDREZ, CBCD #### [facility] [address] [place] [address] Platelet mean volume (Bld) [Entitic vol] 9.9 fL Normal 9.6-12.3 [facility] Comment on above: Order Comment: FAX R ESULTS TO DR FLORENCE: [phone] Performed By: #### V ITB1, ZINC #### [facility] [address] [place] [address] #### B12, FOL, CMP, PREALB, ANDREZ, CBCD #### [facility] [address] [place] [id number] RBC (Bld) [#/Vol] 4.97 10*6/uL Normal 4.10-5.10 [facility] Comment on above: Order Comment: FAX R ESULTS TO DR FLORENCE: [phone] Performed By: #### V ITB1, ZINC #### [facility] [address] [place] [address] #### B12, FOL, CMP, PREALB, ANDREZ, CBCD #### [facility] [address] [place] [address] [id number] RED CELL DISTRI WIDTH 13.2 % Normal 0-14.5 Eas t [facility] Comment on above: Order Comment: FAX R ESULTS TO DR FLORENCE: [phone] Performed By: #### V ITB1, ZINC #### [facility] [address] [place] [address] #### B12, FOL, CMP, PREALB, ANDREZ, CBCD #### [facility] [address] [place] [address] WBC (Bld) [#/Vol] 7.5 10*3/uL Normal 4.8-10.8 [facility] Comment on above: Order Comment: FAX R ESULTS TO DR FLORENCE: [phone] Performed By: #### V ITB1, ZINC #### [facility] [address] [place] [address] #### B12, FOL, CMP, PREALB, ANDREZ, CBCD #### [facility] [address] [place] [address] COMPREHENSIVE METABOLIC PANE [facility] 11-06-2022 Albumin [Mass/Vol] 4.2 g/dL Normal 3.4-5.0 [facility] Comment on above: Order Comment: FAX R ESULTS TO DR FLORENCE: [phone] Performed By: #### V ITB1, ZINC #### [facility] [address] [place] [address] #### B12, FOL, CMP, PREALB, ANDREZ, CBCD #### [facility] [address] [place] [address] ALP [Catalytic activity/Vol] 59 U/L Normal 46-116 [facility] Comment on above: Order Comment: FAX R ESULTS TO DR FLORENCE: [phone] Performed By: #### V ITB1, ZINC #### [facility] [address] [place] [address] #### B12, FOL, CMP, PREALB, ANDREZ, CBCD #### [facility] [address] [place] [address] ALT [Catalytic activity/Vol] 30 U/L Normal 10-49 [facility] Comment on above: Order Comment: FAX R ESULTS TO DR FLORENCE: [phone] Performed By: #### V ITB1, ZINC #### [facility] [address] [place] [address] #### B12, FOL, CMP, PREALB, ANDREZ, CBCD #### [facility] [address] [place] [address] AST [Catalytic activity/Vol] 20 U/L Normal 0-34 [facility] Comment on above: Order Comment: FAX R ESULTS TO DR FLORENCE: [phone] Performed By: #### V ITB1, ZINC #### [facility] [address] [place] [address] #### B12, FOL, CMP, PREALB, ANDREZ, CBCD #### [facility] [address] [place] [address] Bilirubin [Mass/Vol] 0.5 mg/dL Normal 0.3-1.2 [facility] Comment on above: Order Comment: FAX R ESULTS TO DR FLORENCE: [phone] Performed By: #### V ITB1, ZINC #### [facility] [address] [place] [address] #### B12, FOL, CMP, PREALB, ANDREZ, CBCD #### [facility] [address] [place] [address] CALCIUM,TOTAL 9.3 md/dL Normal 8.7-10.4 [facility] Comment on above: Order Comment: FAX R ESULTS TO DR FLORENCE: [phone] Performed By: #### V ITB1, ZINC #### [facility] [address] [place] [address] #### B12, FOL, CMP, PREALB, ANDREZ, CBCD #### [facility] [address] [place] [address] Chloride [Moles/Vol] 103 mmol/L Normal 98-107 [facility] Comment on above: Order Comment: FAX R ESULTS TO DR FLORENCE: [phone] Performed By: #### V ITB1, ZINC #### [facility] [address] [place] [address] #### B12, FOL, CMP, PREALB, ANDREZ, CBCD #### [facility] [address] [place] [address] CO2 [Moles/Vol] 23 mmol/L Normal 20-31 [facility] Comment on above: Order Comment: FAX R ESULTS TO DR FLORENCE: [phone] Performed By: #### V ITB1, ZINC #### [facility] [address] [place] [address] #### B12, FOL, CMP, PREALB, ANDREZ, CBCD #### [facility] [address] [place] [address] Creatinine [Mass/Vol] 0.58 mg/dL Normal 0.55-1.02 [facility] Comment on above: Order Comment: FAX R ESULTS TO DR FLORENCE: [phone] Performed By: #### V ITB1, ZINC #### [facility] [address] [place] [address] #### B12, FOL, CMP, PREALB, ANDREZ, CBCD #### [facility] [address] [place] [address] EST GLOM FILT > 60 Normal [facility] Comment on above: Order Comment: FAX R ESULTS TO DR FLORENCE: [phone] Result Comment: Result Units: mL/min/1.73 m2 Note: [...] #### V ITB1, ZINC #### [facility] [address] [place] [address] #### B12, FOL, CMP, PREALB, ANDREZ, CBCD #### [facility] [address] [place] [address] ESTIMATED GLOM FILT RATE > 60 Normal [facility] Comment on above: Order Comment: FAX R ESULTS TO DR FLORENCE: [phone] Performed By: #### V ITB1, ZINC #### [facility] [address] [place] [address] #### B12, FOL, CMP, PREALB, ANDREZ, CBCD #### [facility] [address] [place] [address] Glucose [Mass/Vol] 92 mg/dL Normal 65-99 [facility] Comment on above: Order Comment: FAX R ESULTS TO DR FLORENCE: [phone] Performed By: #### V ITB1, ZINC #### [facility] [address] [place] [address] #### B12, FOL, CMP, PREALB, ANDREZ, CBCD #### [facility] [address] [place] [address] Potassium [Moles/Vol] 3.9 mmol/L Normal 3.4-5.1 [facility] Comment on above: Order Comment: FAX R ESULTS TO DR FLORENCE: [phone] Performed By: #### V ITB1, ZINC #### [facility] [address] [place] [address] #### B12, FOL, CMP, PREALB, ANDREZ, CBCD #### [facility] [address] [place] [address] Protein [Mass/Vol] 7.3 g/dL Normal 6.0-8.0 [facility] Comment on above: Order Comment: FAX R ESULTS TO DR FLORENCE: [phone] Performed By: #### V ITB1, ZINC #### [facility] [address] [place] [address] #### B12, FOL, CMP, PREALB, ANDREZ, CBCD #### [facility] [address] [place] [address] Sodium [Moles/Vol] 137 mmol/L Normal 136-145 [facility] Comment on above: Order Comment: FAX R ESULTS TO DR FLORENCE: [phone] Performed By: #### V ITB1, ZINC #### [facility] [address] [place] [address] #### B12, FOL, CMP, PREALB, ANDREZ, CBCD #### [facility] [address] [place] [address] Urea nitrogen [Mass/Vol] 12 mg/dL Normal 9-23 [facility] Comment on above: Order Comment: FAX R ESULTS TO DR FLORENCE: [phone] Performed By: #### V ITB1, ZINC #### [facility] [address] [place] [address] #### B12, FOL, CMP, PREALB, ANDREZ, CBCD #### [facility] [address] [place] [address] Basic Metabolic Panelon 05-0 Anion gap [Moles/Vol] 11 mmol/L Normal 7-16 [facility] Calcium [Mass/Vol] 8.9 mg/dL Normal 8.6-10.2 [facility] Chloride [Moles/Vol] 104 mmol/L Normal 98-107 [facility] CO2 [Moles/Vol] 25 mmol/L Normal 22-29 [facility] Creatinine [Mass/Vol] 0.6 mg/dL Normal 0.5-1.0 [facility] GFR Calculated >60 Normal >=60 [facility] Comment on above: Result Comment: Dion [...] 117 mg/dL High 74-99 [facility] Potassium [Moles/Vol] 4.3 mmol/L Normal 3.5-5.0 [facility] Sodium [Moles/Vol] 140 mmol/L Normal 132-146 [facility] Urea nitrogen [Mass/Vol] 13 mg/dL Normal 6-20 [facility] Basic metabolic 2000 panelon 10-30-2022 Anion gap [Moles/Vol] 11 mmol/L 7 - 16 mmol/L [facility] Calcium [Mass/Vol] 8.9 mg/dL 8.6 - 10. 2 mg/dL [facility] Chloride [Moles/Vol] 104 mmol/L 98 - 10 7 mmol/L [facility] CO2 [Moles/Vol] 25 mmol/L 22 - 29 mmol/L [facility] Creatinine [Mass/Vol] 0.6 mg/dL 0.5 - 1.0 mg/dL [facility] GFR/1.73 sq M.predicted among non-blacks MDRD (S/P/Bld) [Vol rate/Area] mL/min/1.73 60 - PINF mL/min/1.73 [facility] Comment on above: Pediatric calculator link https://www.kidney.org/professionals/kdoqi/gfr_calculatorped [...] 117 mg/dL High 74 - 99 mg/dL [facility] Potassium [Moles/Vol] 4.3 mmol/L 3.5 - 5.0 mmol/L [facility] Sodium [Moles/Vol] 140 mmol/L 132 - 146 mmol/L [facility] Urea nitrogen [Mass/Vol] 13 mg/dL 6 - 20 mg/dL [facility] CBC With Platelet and Differ entialon 10-30-2022 Abs Imm Granulocytes 0.07 E9/L Normal [facility] Absolute Basophils 0.01 E9/L Normal 0.00-0.20 [facility] Absolute Eosinophils 0.00 E9/L Low 0.05-0.50 [facility] Absolute Lymphocytes 1.89 E9/L Normal 1.50-4.00 [facility] Absolute Monocytes 0.73 E9/L Normal 0.10-0.95 [facility] Absolute Neutrophils 9.02 E9/L High 1.80-7.30 [facility] Basophils/100 WBC (Bld) 0.1 % Normal 0.0-2.0 [facility] Eosinophils/100 WBC (Bld) 0.0 % Normal 0.0-6.0 [facility] Hematocrit (Bld) [Volume fraction] 38.2 % Normal 34.0-48.0 [facility] Hemoglobin (Bld) [Mass/Vol] 12.2 g/dL Normal 11.5-15.5 [facility] Imm Granulocytes 0.6 % Normal 0.0-5.0 [facility] Lymphocytes/100 WBC (Bld) 16.1 % Low 20.0-42.0 [facility] MCH (RBC) [Entitic mass] 29.2 pg Normal 26.0-35.0 [facility] MCHC 31.9 % Low 32.0-34.5 [facility] MCV (RBC) [Entitic vol] 91.4 fL Normal 80.0-99.9 [facility] Monocytes/100 WBC (Bld) 6.2 % Normal 2.0-12.0 [facility] Neutrophils/100 WBC (Bld) 77.0 % Normal 43.0-80.0 [facility] Platelet Count 285 E9/L Normal 130-450 [facility] Platelet mean volume (Bld) [Entitic vol] 10.4 fL Normal 7.0-12.0 [facility] RBC 4.18 E12/L Normal 3.50-5.50 [facility] RDW 13.2 fL Normal 11.5-15.0 [facility] WBC 11.7 E9/L High 4.5-11.5 [facility] CBC with Auto Differentialon 10-30-2022 Basophils (Bld) [#/Vol] 0.01 10*3/uL [facility] Basophils/100 WBC (Bld) 0.1 % 0.0 - 2.0 % [facility] Eosinophils (Bld) [#/Vol] 0.00 10*3/uL Low [facility] Eosinophils/100 WBC (Bld) 0 % 0.0 - 6.0 % [facility] Erythrocyte distribution width (RBC) [Ratio] 13.2 fL 11.5 - 15.0 fL [facility] Hematocrit (Bld) [Volume fraction] 38.2 % 34.0 - 48.0 % [facility] Hemoglobin (Bld) [Mass/Vol] 12.2 g/dL 11.5 - 15.5 g/dL [facility] Immature granulocytes (Bld) [#/Vol] 0.07 10*3/uL E9/L [facility] Immature granulocytes/100 WBC (Bld) 0.6 % 0.0 - 5.0 % [facility] Interpretation and review of laboratory results Abnormal [facility] Lymphocytes (Bld) [#/Vol] 1.89 10*3/uL [facility] Lymphocytes/100 WBC (Bld) 16.1 % Low 20.0 - 42.0 % [facility] MCH (RBC) [Entitic mass] 29.2 pg 26.0 - 35.0 pg [facility] MCHC (RBC) [Mass/Vol] 31.9 % Low 32.0 - 34.5 % [facility] MCV (RBC) [Entitic vol] 91.4 fL 80.0 - 99.9 fL [facility] Monocytes (Bld) [#/Vol] 0.73 10*3/uL [facility] Monocytes/100 WBC (Bld) 6.2 % 2.0 - 12.0 % [facility] Neutrophils (Bld) [#/Vol] 9.02 10*3/uL High [facility] Platelet mean volume (Bld) [Entitic vol] 10.4 fL 7.0 - 12.0 fL [facility] Platelets (Bld) [#/Vol] 285 10*3/uL [facility] RBC (Bld) [#/Vol] 4.18 10*6/uL [facility] Segmented neutrophils/100 WBC (Bld) 77.0 % 43.0 - 80.0 % [facility] WBC (Bld) [#/Vol] 11.7 10*3/uL High [facility] Hepatic Function Panelon Albumin [Mass/Vol] 3.7 g/dL 3.5 - 5.2 g/dL [facility] ALP [Catalytic activity/Vol] 55 U/L 35 - 104 U/L [facility] ALT [Catalytic activity/Vol] 19 U/L 0 - 32 U/L [facility] AST [Catalytic activity/Vol] 14 U/L 0 - 31 U/L [facility] Bilirubin [Mass/Vol] 0.5 mg/dL 0.0 - 1 .2 mg/dL [facility] Bilirubin.direct [Mass/Vol] mg/dL 0.0 - 0.3 mg/dL [facility] Bilirubin.indirect [Mass/Vol] see below 0.0 - 1.0 mg/dL [facility] Comment on above: Indirect Bilirubin c annot be calculated since Total Bilirubin and/or Direct Bilirubin is below measurable range. Protein [Mass/Vol] 6.3 g/dL Low 6.4 - 8.3 g/dL [facility] Hgb A1Con 10-30-2022 HbA1c (Bld) [Mass fraction] 4.8 % Normal 4.0-5.6 [facility] Lipid Panelon 10-30-2022 Cholesterol [Mass/Vol] 99 mg/dL Normal 0-199 [facility] Cholesterol in HDL [Mass/Vol] 34 mg/dL Normal >40 [facility] Cholesterol in LDL [Mass/Vol] 43 mg/dL Normal 0-99 [facility] Triglyceride [Mass/Vol] 108 mg/dL Normal 0-149 [facility] VLDL Cholesterol (Calculated) 22 mg/dL Normal [facility] Cholesterol [Mass/Vol] 99 mg/dL 0 - 1 99 mg/dL [facility] Cholesterol in HDL [Mass/Vol] 34 mg/dL 40 - PINF mg/dL [facility] Cholesterol in LDL [Mass/Vol] 43 mg/dL 0 - 99 mg/dL [facility] Cholesterol in VLDL [Mass/Vol] 22 mg/dL [facility] Triglyceride [Mass/Vol] 108 mg/dL 0 - 149 mg/dL [facility] Liver Panelon 10-30-2022 Albumin [Mass/Vol] 3.7 g/dL Normal 3.5-5.2 [facility] ALP [Catalytic activity/Vol] 55 U/L Normal 35-104 [facility] ALT [Catalytic activity/Vol] 19 U/L Normal 0-32 [facility] AST [Catalytic activity/Vol] 14 U/L Normal 0-31 [facility] Bilirubin [Mass/Vol] 0.5 mg/dL Normal 0.0-1.2 [facility] Bilirubin Indirect see below Normal 0.0-1.0 [facility] Comment on above: Result Comment: Grace rect Bilirubin cannot be calculated since Total Bilirubin and/or Direct Bilirubin is below measurable range. Bilirubin.indirect [Mass/Vol] mg/dL Normal 0.0-0.3 [facility] Protein [Mass/Vol] 6.3 g/dL Low 6.4-8.3 [facility] METER GLUCOSEon 10-30-2022 Glucose [Mass/Vol] 111 mg/dL High 74-99 [facility] Magnesiumon 10-30-2022 Magnesium [Mass/Vol] 1.7 mg/dL Normal 1.6-2.6 [facility] Magnesium [Mass/Vol] 1.7 mg/dL 1.6 - 2 .6 mg/dL [facility] No Panel Informationon 10-30 Interpretation and review of laboratory results Abnormal [facility] POCT Glucoseon 10-30-2022 Glucose [Mass/Vol] 111 mg/dL High 74 - 99 mg/dL [facility] Interpretation and review of laboratory results Abnormal [facility] Phosphoruson 10-30-2022 Phosphate [Mass/Vol] 4.0 mg/dL Normal 2.5-4.5 [facility] Phosphate [Mass/Vol] 4.0 mg/dL 2.5 - 4 .5 mg/dL [facility] T4, Freeon 10-30-2022 Free T4 [Mass/Vol] 1.32 ng/dL 0.93 - 1. 70 ng/dL [facility] TSHon 10-30-2022 TSH [Mass/Vol] 0.828 [facility] TSH w/out Reflexon TSH w/out Reflex 0.828 uIU/mL Normal 0.270-4.200 [facility] Thyroxine Freeon 10-30-2022 Thyroxine Free 1.32 ng/dL Normal 0.93-1.70 [facility] Comprehensive Metabolic Pane evan 10-29-2022 Potassium see note Critically abnormal 3.5-5.0 [facility] Comment on above: Result Comment: Lisa icate order. Made no charge to patient for testing Corrected result; previously reported as 4.3 on 10/24/2022 at 19:57 by JESUS Hemoglobin A1con 10-29-2022 HbA1c (Bld) [Mass fraction] 5.1 % 4.0 - 5.6 % [facility] Hgb A1Con 10-29-2022 HbA1c (Bld) [Mass fraction] 5.1 % Normal 4.0-5.6 [facility] METER GLUCOSEon 10-29-2022 Glucose [Mass/Vol] 128 mg/dL High 74-99 [facility] Glucose [Mass/Vol] 146 mg/dL High 74-99 [facility] Glucose [Mass/Vol] 104 mg/dL High 74-99 [facility] Glucose [Mass/Vol] 101 mg/dL High 74-99 [facility] No Panel Informationon 10-29 [facility] POC Urine Qualon 0 10-29-2022 Beta HCG ( test) Ql (U) Negative Negative [facility] Work Phone: Beta HCG ( test) Ql (U) [id number] [facility] Work Phone: Negative QC Pass/Fail Pass [facility] Work Phone: Positive QC Pass/Fail Pass [facility] Work Phone: POCT Glucoseon 10-29-2022 Glucose [Mass/Vol] 128 mg/dL High 74 - 99 mg/dL [facility] Interpretation and review of laboratory results Abnormal [facility] Glucose [Mass/Vol] 146 mg/dL High 74 - 99 mg/dL [facility] Interpretation and review of laboratory results Abnormal [facility] Glucose [Mass/Vol] 104 mg/dL High 74 - 99 mg/dL [facility] Interpretation and review of laboratory results Abnormal [facility] Glucose [Mass/Vol] 101 mg/dL High 74 - 99 mg/dL [facility] Interpretation and review of laboratory results Abnormal [facility] Surgical Specimenon 10-30-19 23 Surgical Specimen [place] [address] FINAL SURGICAL PATHOLOGY REPORT NAME: BATOOL KINGSLEY Date of 10/29/2022 Collection: Medical Record [id number] Date of 10/29/2022 Number: Receipt: Age: 22 Y Sex: F Date 10/31/2022 12:02 Reported: Date Of : 2000 Financial [id number] Admitting DERIC FLORENCE Number: Physician: Patient DIS [id number] Ordering DERIC FLORENCE Location: Physician: Accession Number: [...] of hanson haq mucosal lined fibrous tissue, indirect sales representative or portions of small bowel which measures 4.1 x 2.5 x 1.7 cm. Much of the exterior is covered by hanson haq, soft to finely folded mucosa. Numerous, small metallic surgical [place] are present throughout the exterior. Discrete mucosal lesions are not present. Sectioning is unremarkable. Ethics Manager sections are submitted. Block label A1. (JORGE L:TAURUS) CODES: [id number]; Department of Pathology Page 1 of 1 Normal [facility] CBC (Hemogram)on 10-24-2022 Erythrocyte distribution width (RBC) [Ratio] 13.7 fL 11.5 - 15.0 fL [facility] Hematocrit (Bld) [Volume fraction] 43.9 % 34.0 - 48.0 % [facility] Hemoglobin (Bld) [Mass/Vol] 14.3 g/dL 11.5 - 15.5 g/dL [facility] MCH (RBC) [Entitic mass] 28.9 pg 26.0 - 35.0 pg [facility] MCHC (RBC) [Mass/Vol] 32.6 % 32.0 - 34.5 % [facility] MCV (RBC) [Entitic vol] 88.9 fL 80.0 - 99.9 fL [facility] Platelet mean volume (Bld) [Entitic vol] 10.6 fL 7.0 - 12.0 fL [facility] Platelets (Bld) [#/Vol] 321 10*3/uL [facility] RBC (Bld) [#/Vol] 4.94 10*6/uL [facility] WBC (Bld) [#/Vol] 7.0 10*3/uL [facility] CBC With Platelet No Differe ntialon 10-24-2022 Hematocrit (Bld) [Volume fraction] 43.9 % Normal 34.0-48.0 [facility] Hemoglobin (Bld) [Mass/Vol] 14.3 g/dL Normal 11.5-15.5 [facility] MCH (RBC) [Entitic mass] 28.9 pg Normal 26.0-35.0 [facility] MCHC 32.6 % Normal 32.0-34.5 [facility] MCV (RBC) [Entitic vol] 88.9 fL Normal 80.0-99.9 [facility] Platelet Count 321 E9/L Normal 130-450 [facility] Platelet mean volume (Bld) [Entitic vol] 10.6 fL Normal 7.0-12.0 [facility] RBC 4.94 E12/L Normal 3.50-5.50 [facility] RDW 13.7 fL Normal 11.5-15.0 [facility] WBC 7.0 E9/L Normal 4.5-11.5 [facility] Comprehensive Metabolic Pane l reflex Mgon 10-24-2022 Albumin [Mass/Vol] 4.6 g/dL Normal 3.5-5.2 [facility] ALP [Catalytic activity/Vol] 69 U/L Normal 35-104 [facility] ALT [Catalytic activity/Vol] 27 U/L Normal 0-32 [facility] Anion gap [Moles/Vol] 12 mmol/L Normal 7-16 [facility] AST [Catalytic activity/Vol] 16 U/L Normal 0-31 [facility] Bilirubin [Mass/Vol] 0.4 mg/dL Normal 0.0-1.2 [facility] Calcium [Mass/Vol] 9.3 mg/dL Normal 8.6-10.2 [facility] Chloride [Moles/Vol] 104 mmol/L Normal 98-107 [facility] CO2 [Moles/Vol] 24 mmol/L Normal 22-29 [facility] Creatinine [Mass/Vol] 0.6 mg/dL Normal 0.5-1.0 [facility] GFR Calculated >60 Normal >=60 [facility] Comment on above: Result Comment: Dion [...] 79 mg/dL Normal 74-99 [facility] Magnesium [Moles/Vol] 4.3 mmol/L Normal 3.5-5.0 [facility] Protein [Mass/Vol] 7.6 g/dL Normal 6.4-8.3 [facility] Sodium [Moles/Vol] 140 mmol/L Normal 132-146 [facility] Urea nitrogen [Mass/Vol] 13 mg/dL Normal 6-20 [facility] Comprehensive metabolic 2000 panelon 10-24-2022 Potassium [Moles/Vol] 4.3 mmol/L 3.5 - 5.0 mmol/L [facility] Albumin [Mass/Vol] 4.6 g/dL 3.5 - 5.2 g/dL [facility] ALP [Catalytic activity/Vol] 69 U/L 35 - 104 U/L [facility] ALT [Catalytic activity/Vol] 27 U/L 0 - 32 U/L [facility] Anion gap [Moles/Vol] 12 mmol/L 7 - 16 mmol/L [facility] AST [Catalytic activity/Vol] 16 U/L 0 - 31 U/L [facility] Bilirubin [Mass/Vol] 0.4 mg/dL 0.0 - 1 .2 mg/dL [facility] Calcium [Mass/Vol] 9.3 mg/dL 8.6 - 10. 2 mg/dL [facility] Chloride [Moles/Vol] 104 mmol/L 98 - 10 7 mmol/L [facility] CO2 [Moles/Vol] 24 mmol/L 22 - 29 mmol/L [facility] Creatinine [Mass/Vol] 0.6 mg/dL 0.5 - 1.0 mg/dL [facility] GFR/1.73 sq M.predicted among non-blacks MDRD (S/P/Bld) [Vol rate/Area] mL/min/1.73 60 - PINF mL/min/1.73 [facility] Comment on above: Pediatric calculator link [...] [Mass/Vol] 79 mg/dL 74 - 99 mg/dL [facility] Potassium [Moles/Vol] 4.3 mmol/L 3.5 - 5.0 mmol/L [facility] Protein [Mass/Vol] 7.6 g/dL 6.4 - 8.3 g/dL [facility] Sodium [Moles/Vol] 140 mmol/L 132 - 146 mmol/L [facility] Urea nitrogen [Mass/Vol] 13 mg/dL 6 - 20 mg/dL [facility] ACT PARTIAL THROMBO TIMEon 0 - ACT PARTIAL THROMBO TIME 30.4 SECONDS Normal 20.0-32.1 [facility] Comment on above: Result Comment: APTT THERAPEUTIC RANGE = 43.6 TO 68.4 SECONDS Performed By: #### V ITB1, ZINC #### [facility] [address] [place] [address] #### B12, FOL, CMP, PREALB, ANDREZ, CBCD #### [facility] [address] [place] [address] CBC with DIFFERENTIALon 04-0 Basophils (Bld) [#/Vol] 0.0 10*3/uL Normal 0.0-0.1 [facility] Comment on above: Performed By: #### V ITB1, ZINC #### [facility] [address] [place] [address] #### B12, FOL, CMP, PREALB, ANDREZ, CBCD #### [facility] [address] [place] [address] Basophils/100 WBC (Bld) 0.5 % Normal 0.0-1.0 [facility] Comment on above: Performed By: #### V ITB1, ZINC #### [facility] [address] [place] [address] #### B12, FOL, CMP, PREALB, ANDREZ, CBCD #### [facility] [address] [place] [address] Eosinophils (Bld) [#/Vol] 0.3 10*3/uL Normal 0.0-0.4 [facility] Comment on above: Performed By: #### V ITB1, ZINC #### [facility] [address] [place] [id number] #### B12, FOL, CMP, PREALB, ANDREZ, CBCD #### [facility] [address] [place] [id number] Eosinophils/100 WBC (Bld) 4.1 % High 1.0-4.0 [facility] Comment on above: Performed By: #### V ITB1, ZINC #### [facility] [address] [place] [id number] #### B12, FOL, CMP, PREALB, ANDREZ, CBCD #### [facility] [address] [place] [id number] Hematocrit (Bld) [Volume fraction] 40.6 % Normal 37.0-47.0 [facility] Comment on above: Performed By: #### V ITB1, ZINC #### [facility] [address] [place] [address] #### B12, FOL, CMP, PREALB, ANDREZ, CBCD #### [facility] [address] [place] [phone] Hemoglobin (Bld) [Mass/Vol] 13.2 g/dL Normal 12.0-16.0 [facility] Comment on above: Performed By: #### V ITB1, ZINC #### [facility] [address] [place] [address] #### B12, FOL, CMP, PREALB, ANDREZ, CBCD #### [facility] [address] [place] [address] IG # 0.0 10*3/uL Normal 0.0-0.1 [facility] Comment on above: Performed By: #### V ITB1, ZINC #### [facility] [address] [place] [address] #### B12, FOL, CMP, PREALB, ANDREZ, CBCD #### [facility] [address] [place] [address] 69417 IG % 0.5 % Normal 0.0-1.0 [facility] Comment on above: Performed By: #### V ITB1, ZINC #### [facility] [address] [place] [address] #### B12, FOL, CMP, PREALB, ANDREZ, CBCD #### [facility] [address] [place] [address] 83847 Lymphocytes (Bld) [#/Vol] 3.2 10*3/uL Normal 1.3-4.4 [facility] Comment on above: Performed By: #### V ITB1, ZINC #### [facility] [address] [place] [address] #### B12, FOL, CMP, PREALB, ANDREZ, CBCD #### [facility] [address] [place] [address] 30636 Lymphocytes/100 WBC (Bld) 41.8 % High 27.0-41.0 [facility] Comment on above: Performed By: #### V ITB1, ZINC #### [facility] [address] [place] [address] #### B12, FOL, CMP, PREALB, ANDREZ, CBCD #### [facility] [address] [place] [address] 91541 MCV (RBC) [Entitic vol] 88.6 fL Normal 81.0-99.0 [facility] Comment on above: Performed By: #### V ITB1, ZINC #### [facility] [address] [place] [address] #### B12, FOL, CMP, PREALB, ANDREZ, CBCD #### [facility] [address] [place] [address] 41063 MEAN CORPUSCULAR HGB 28.8 pg Normal 27.0-31.0 [facility] Comment on above: Performed By: #### V ITB1, ZINC #### [facility] [address] [place] [address] #### B12, FOL, CMP, PREALB, ANDREZ, CBCD #### [facility] [address] [place] [address] 44423 MEAN CORPUSCULAR HGB CONC 32.5 g/dl Low 33.0-37.0 [facility] Comment on above: Performed By: #### V ITB1, ZINC #### [facility] [address] [place] [address] #### B12, FOL, CMP, PREALB, ANDREZ, CBCD #### [facility] [address] [place] [address] 52395 Monocytes (Bld) [#/Vol] 0.4 10*3/uL Normal 0.1-1.0 [facility] Comment on above: Performed By: #### V ITB1, ZINC #### [facility] [address] [place] [address] #### B12, FOL, CMP, PREALB, ANDREZ, CBCD #### [facility] [address] [place] [address] 78481 Monocytes/100 WBC (Bld) 5.1 % Normal 3.0-9.0 [facility] Comment on above: Performed By: #### V ITB1, ZINC #### [facility] [address] [place] [address] #### B12, FOL, CMP, PREALB, ANDREZ, CBCD #### [facility] [address] [place] [address] 61301 Neutrophils (Bld) [#/Vol] 3.7 10*3/uL Normal 2.3-7.9 [facility] Comment on above: Performed By: #### V ITB1, ZINC #### [facility] [address] [place] [address] #### B12, FOL, CMP, PREALB, ANDREZ, CBCD #### [facility] [address] [place] [address] 94947 Neutrophils/100 WBC (Bld) 48.0 % Normal 47.0-73.0 [facility] Comment on above: Performed By: #### V ITB1, ZINC #### [facility] [address] [place] [address] #### B12, FOL, CMP, PREALB, ANDREZ, CBCD #### [facility] [address] [place] [address] 84967 NUCLEATED RED BLOOD CELL 0.0 10*3/uL Normal 0.0-0.0 [facility] Comment on above: Performed By: #### V ITB1, ZINC #### [facility] [address] [place] [address] #### B12, FOL, CMP, PREALB, ANDREZ, CBCD #### [facility] [address] [place] [address] 16185 NUCLEATED RED BLOOD CELL 0.0 % Normal 0.0-0.0 [facility] Comment on above: Performed By: #### V ITB1, ZINC #### [facility] [address] [place] [address] #### B12, FOL, CMP, PREALB, ANDREZ, CBCD #### [facility] [address] [place] [address] 23384 PLATELET COUNT AUTOMATED 300 10*3/uL Normal 130-400 [facility] Comment on above: Performed By: #### V ITB1, ZINC #### [facility] [address] [place] [address] #### B12, FOL, CMP, PREALB, ANDREZ, CBCD #### [facility] [address] [place] [address] 43112 Platelet mean volume (Bld) [Entitic vol] 10.7 fL Normal 9.6-12.3 [facility] Comment on above: Performed By: #### V ITB1, ZINC #### [facility] [address] [place] [address] #### B12, FOL, CMP, PREALB, ANDREZ, CBCD #### [facility] [address] [place] [address] RBC (Bld) [#/Vol] 4.58 10*6/uL Normal 4.10-5.10 [facility] Comment on above: Performed By: #### V ITB1, ZINC #### [facility] [address] [place] [address] #### B12, FOL, CMP, PREALB, ANDREZ, CBCD #### [facility] [address] [place] [address] RED CELL DISTRI WIDTH 13.3 % Normal 0-14.5 [facility] Comment on above: Performed By: #### V ITB1, ZINC #### [facility] [address] [place] [address] #### B12, FOL, CMP, PREALB, ANDREZ, CBCD #### [facility] [address] [place] [address] 16093 WBC (Bld) [#/Vol] 7.6 10*3/uL Normal 4.8-10.8 [facility] Comment on above: Performed By: #### V ITB1, ZINC #### [facility] [address] [place] [address] #### B12, FOL, CMP, PREALB, ANDREZ, CBCD #### [facility] [address] [place] [address] COMPREHENSIVE METABOLIC PANE Evan 10-04-2022 Albumin [Mass/Vol] 3.8 g/dL Normal 3.4-5.0 [facility] Comment on above: Performed By: #### V ITB1, ZINC #### [facility] [address] [place] [address] #### B12, FOL, CMP, PREALB, ANDREZ, CBCD #### [facility] [address] [place] [address] 93331 ALP [Catalytic activity/Vol] 63 U/L Normal 46-116 [facility] Comment on above: Performed By: #### V ITB1, ZINC #### [facility] [address] #### B12, FOL, CMP, PREALB, ANDREZ, CBCD #### [facility] [address] [place] [address] 73883 ALT [Catalytic activity/Vol] 18 U/L Normal 10-49 [facility] Comment on above: Performed By: #### V ITB1, ZINC #### [facility] [address] [place] [address] #### B12, FOL, CMP, PREALB, ANDREZ, CBCD #### [facility] [address] [place] [address] 01310 AST [Catalytic activity/Vol] 15 U/L Normal 0-34 [facility] Comment on above: Performed By: #### V ITB1, ZINC #### [facility] [address] [place] [address] #### B12, FOL, CMP, PREALB, ANDREZ, CBCD #### [facility] [address] [place] [address] 22505 Bilirubin [Mass/Vol] 0.3 mg/dL Normal 0.3-1.2 [facility] Comment on above: Performed By: #### V ITB1, ZINC #### [facility] [address] [place] [address] #### B12, FOL, CMP, PREALB, ANDREZ, CBCD #### [facility] [address] [place] [address] 74231 CALCIUM,TOTAL 9.2 md/dL Normal 8.7-10.4 [facility] Comment on above: Performed By: #### V ITB1, ZINC #### [facility] [address] [place] [address] #### B12, FOL, CMP, PREALB, ANDREZ, CBCD #### [facility] [address] [place] [address] Chloride [Moles/Vol] 105 mmol/L Normal 98-107 [facility] Comment on above: Performed By: #### V ITB1, ZINC #### [facility] [address] [place] [address] #### B12, FOL, CMP, PREALB, ANDREZ, CBCD #### [facility] [address] [place] [address] CO2 [Moles/Vol] 27 mmol/L Normal 20-31 [facility] Comment on above: Performed By: #### V ITB1, ZINC #### [facility] [address] [place] [address] #### B12, FOL, CMP, PREALB, ANDREZ, CBCD #### [facility] [address] [place] [address] Creatinine [Mass/Vol] 0.61 mg/dL Normal 0.55-1.02 [facility] Comment on above: Performed By: #### V ITB1, ZINC #### [facility] [address] [place] [address] #### B12, FOL, CMP, PREALB, ANDREZ, CBCD #### [facility] [address] [place] [address] EST GLOM FILT > 60 Normal [facility] Comment on above: Result Comment: Result Units: [...] #### V ITB1, ZINC #### [facility] [address] [place] [address] #### B12, FOL, CMP, PREALB, ANDREZ, CBCD #### [facility] [address] [place] [address] ESTIMATED GLOM FILT RATE > 60 Normal [facility] Comment on above: Performed By: #### V ITB1, ZINC #### [facility] [address] [place] [address] #### B12, FOL, CMP, PREALB, ANDREZ, CBCD #### [facility] [address] [place] [address] 89885 Glucose [Mass/Vol] 87 mg/dL Normal 65-99 [facility] Comment on above: Performed By: #### V ITB1, ZINC #### [facility] [address] [place] [address] #### B12, FOL, CMP, PREALB, ANDREZ, CBCD #### [facility] [address] [place] [address] 85243 Potassium [Moles/Vol] 4.2 mmol/L Normal 3.4-5.1 [facility] Comment on above: Performed By: #### V ITB1, ZINC #### [facility] [address] [place] [address] #### B12, FOL, CMP, PREALB, ANDREZ, CBCD #### [facility] [address] [place] [address] Protein [Mass/Vol] 6.9 g/dL Normal 6.0-8.0 [facility] Comment on above: Performed By: #### V ITB1, ZINC #### [facility] [address] [place] [address] #### B12, FOL, CMP, PREALB, ANDREZ, CBCD #### [facility] [address] [place] [address] Sodium [Moles/Vol] 139 mmol/L Normal 136-145 [facility] Comment on above: Performed By: #### V ITB1, ZINC #### [facility] [address] [place] [address] #### B12, FOL, CMP, PREALB, ANDREZ, CBCD #### [facility] [address] [place] [address] Urea nitrogen [Mass/Vol] 14 mg/dL Normal 9-23 [facility] Comment on above: Performed By: #### V ITB1, ZINC #### [facility] [address] [place] [address] #### B12, FOL, CMP, PREALB, ANDREZ, CBCD #### [facility] [address] [place] [address] [id number] 10-04-2022 ESTIMATED AVERAGE GLUCOSE 100 Normal [facility] Comment on above: Performed By: #### V ITB1, ZINC #### [facility] [address] [place] [address] #### B12, FOL, CMP, PREALB, ANDREZ, CBCD #### [facility] [address] [place] [address] HbA1c (Bld) [Mass fraction] 5.1 % Normal 4.8-5.6 [facility] Comment on above: Result Comment: Standarization of method based on National Glycohemoglobin Standardization Program (NGSP). HEMOGLOBIN A1c(%) DEGREE of GLUCOSE CONTROL 5.7-6.4% Prediabetes range >6.4% Diagnosis of Diabetes <7% Glycemic control for adults with Diabetes Performed By: #### V ITB1, ZINC #### [facility] [address] [place] [address] #### B12, FOL, CMP, PREALB, ANDREZ, CBCD #### [facility] [address] [place] [address] LIPID PANEL CHOLESTEROL/HDLo n 10-04-2022 Cholesterol [Mass/Vol] 122 mg/dL Normal <200 [facility] Comment on above: Performed By: #### V ITB1, ZINC #### [facility] [address] [place] [address] #### B12, FOL, CMP, PREALB, ANDREZ, CBCD #### [facility] [address] [place] [address] 86060 Cholesterol in HDL [Mass/Vol] 28 mg/dL Low 40-60 [facility] Comment on above: Performed By: #### V ITB1, ZINC #### [facility] [address] [place] [address] #### B12, FOL, CMP, PREALB, ANDREZ, CBCD #### [facility] [address] [place] [address] 91353 Cholesterol in LDL [Mass/Vol] 55 mg/dL Normal 9-159 [facility] Comment on above: Performed By: #### V ITB1, ZINC #### [facility] [address] [place] [address] #### B12, FOL, CMP, PREALB, ANDREZ, CBCD #### [facility] [address] [place] [address] 05737 Cholesterol.total/Chol esterol in HDL [Mass ratio] 4.4 {ratio} Normal [facility] Comment on above: Performed By: #### V ITB1, ZINC #### [facility] [address] [place] [address] #### B12, FOL, CMP, PREALB, ANDREZ, CBCD #### [facility] [address] [place] [address] 37615 Triglyceride [Mass/Vol] 196 mg/dL High <150 [facility] Comment on above: Result Comment: TRIGLYCERIDE RISK ASSESSMENT: 150-199 mg/dl BORDERLINE HIGH >200 mg//dl HIGH . Performed By: #### V ITB1, ZINC #### [facility] [address] [place] [address] #### B12, FOL, CMP, PREALB, ANDREZ, CBCD #### [facility] [address] [place] [address] VLDL CHOLESTEROL 39 mg/dL Normal 6-40 [facility] Comment on above: Performed By: #### V ITB1, ZINC #### [facility] [address] [place] [address] #### B12, FOL, CMP, PREALB, ANDREZ, CBCD #### [facility] [address] [place] [address] THROAT CULTUREon 08-15-2022 Throat culture THROAT CULTURE NORMAL ARIN Normal [facility] Comment on above: Performed By: #### V ITB1, ZINC #### [facility] [address] [place] [address] #### B12, FOL, CMP, PREALB, ANDREZ, CBCD #### [facility] [address] [place] [address] NOVL CORONAVIRUS NAAon 08-14 SARS-CoV-2 (COVID-19) RNA SUJATA+probe Ql (Unsp spec) Detected Abnormal Not Detected [facility] Comment on above: Result Comment: Evelyn ents who have a positive COVID-19 test result may now have treatment options. Treatment options are available for patients with mild to moderate symptoms and for hospitalized patients. Visit our website at [email or web address] for resources and information. This nucleic acid amplification test was developed and its performance characteristics determined by [employer]. Nucleic acid amplification tests include RT- [...] #### V ITB1, ZINC #### [facility] [address] [place] [address] #### B12, FOL, CMP, PREALB, ANDREZ, CBCD #### [facility] [address] [place] [address] 27943 CBC with DIFFERENTIALon 08-01 Basophils (Bld) [#/Vol] 0.0 10*3/uL Normal 0.0-0.1 [facility] Comment on above: Performed By: #### V ITB1, ZINC #### [facility] [address] [place] [address] #### B12, FOL, CMP, PREALB, ANDREZ, CBCD #### [facility] [address] [place] [address] 98725 Basophils/100 WBC (Bld) 0.5 % Normal 0.0-1.0 [facility] Comment on above: Performed By: #### V ITB1, ZINC #### [facility] [address] [place] [address] #### B12, FOL, CMP, PREALB, ANDREZ, CBCD #### [facility] [address] [place] [address] 66006 Eosinophils (Bld) [#/Vol] 0.2 10*3/uL Normal 0.0-0.4 [facility] Comment on above: Performed By: #### V ITB1, ZINC #### [facility] [address] [place] [address] #### B12, FOL, CMP, PREALB, ANDREZ, CBCD #### [facility] [address] [place] [address] 32794 Eosinophils/100 WBC (Bld) 4.2 % High 1.0-4.0 [facility] Comment on above: Performed By: #### V ITB1, ZINC #### [facility] [address] [place] [address] #### B12, FOL, CMP, PREALB, ANDREZ, CBCD #### [facility] [address] [place] [address] 22566 Hematocrit (Bld) [Volume fraction] 43.8 % Normal 37.0-47.0 [facility] Comment on above: Performed By: #### V ITB1, ZINC #### [facility] [address] [place], [place] [address] #### B12, FOL, CMP, PREALB, ANDREZ, CBCD #### [facility] [address] [place] [address] 94508 Hemoglobin (Bld) [Mass/Vol] 14.0 g/dL Normal 12.0-16.0 [facility] Comment on above: Performed By: #### V ITB1, ZINC #### [facility] [address] [place] [address] #### B12, FOL, CMP, PREALB, ANDREZ, CBCD #### [facility] [address] [place] [address] 06050 IG # 0.1 10*3/uL Normal 0.0-0.1 [facility] Comment on above: Performed By: #### V ITB1, ZINC #### [facility] [address] [place] [address] #### B12, FOL, CMP, PREALB, ANDREZ, CBCD #### [facility] [address] [place] [address] 58385 IG % 1.1 % High 0.0-1.0 [facility] Comment on above: Performed By: #### V ITB1, ZINC #### [facility] [address] [place] [address] #### B12, FOL, CMP, PREALB, ANDREZ, CBCD #### [facility] [address] [place] [address] Lymphocytes (Bld) [#/Vol] 2.9 10*3/uL Normal 1.3-4.4 [facility] Comment on above: Performed By: #### V ITB1, ZINC #### [facility] [address] [place] [address] #### B12, FOL, CMP, PREALB, ANDREZ, CBCD #### [facility] [address] [place] [address] 30615 Lymphocytes/100 WBC (Bld) 51.5 % High 27.0-41.0 [facility] Comment on above: Performed By: #### V ITB1, ZINC #### [facility] [address] [place] [address] #### B12, FOL, CMP, PREALB, ANDREZ, CBCD #### [facility] [address] [place] [address] 42614 MCV (RBC) [Entitic vol] 88.8 fL Normal 81.0-99.0 [facility] Comment on above: Performed By: #### V ITB1, ZINC #### [facility] [address] [place] [address] #### B12, FOL, CMP, PREALB, ANDREZ, CBCD #### [facility] [address] [place] [address] 45148 MEAN CORPUSCULAR HGB 28.4 pg Normal 27.0-31.0 [facility] Comment on above: Performed By: #### V ITB1, ZINC #### [facility] [address] [place] [address] #### B12, FOL, CMP, PREALB, ANDREZ, CBCD #### [facility] [address] [place] [address] MEAN CORPUSCULAR HGB CONC 32.0 g/dl Low 33.0-37.0 [facility] Comment on above: Performed By: #### V ITB1, ZINC #### [facility] [address] [place] [address] #### B12, FOL, CMP, PREALB, ANDREZ, CBCD #### [facility] [address] [place] [address] Monocytes (Bld) [#/Vol] 0.4 10*3/uL Normal 0.1-1.0 [facility] Comment on above: Performed By: #### V ITB1, ZINC #### [facility] [address] [place] [address] #### B12, FOL, CMP, PREALB, ANDREZ, CBCD #### [facility] [address] [place] [address] 75910 Monocytes/100 WBC (Bld) 7.0 % Normal 3.0-9.0 [facility] Comment on above: Performed By: #### V ITB1, ZINC #### [facility] [address] [place] [address] #### B12, FOL, CMP, PREALB, ANDREZ, CBCD #### [facility] [address] [place] [address] 48112 Neutrophils (Bld) [#/Vol] 2.0 10*3/uL Low 2.3-7.9 [facility] Comment on above: Performed By: #### V ITB1, ZINC #### [facility] [address] [place] [address] #### B12, FOL, CMP, PREALB, ANDREZ, CBCD #### [facility] [address] [place] [address] 72838 Neutrophils/100 WBC (Bld) 35.7 % Low 47.0-73.0 [facility] Comment on above: Performed By: #### V ITB1, ZINC #### [facility] [address] [place] [address] #### B12, FOL, CMP, PREALB, ANDREZ, CBCD #### [facility] [address] [place] [address] 03861 NUCLEATED RED BLOOD CELL 0.0 10*3/uL Normal 0.0-0.0 [facility] Comment on above: Performed By: #### V ITB1, ZINC #### [facility] [address] [place] [address] #### B12, FOL, CMP, PREALB, ANDREZ, CBCD #### [facility] [address] [place] [address] 42551 NUCLEATED RED BLOOD CELL 0.0 % Normal 0.0-0.0 [facility] Comment on above: Performed By: #### V ITB1, ZINC #### [facility] [address] [place] [address] #### B12, FOL, CMP, PREALB, ANDREZ, CBCD #### [facility] [address] [place] [address] 60101 PLATELET COUNT AUTOMATED 277 10*3/uL Normal 130-400 [facility] Comment on above: Performed By: #### V ITB1, ZINC #### [facility] [address] [place] [address] #### B12, FOL, CMP, PREALB, ANDREZ, CBCD #### [facility] [address] [place] [address] 72362 Platelet mean volume (Bld) [Entitic vol] 10.1 fL Normal 9.6-12.3 [facility] Comment on above: Performed By: #### V ITB1, ZINC #### [facility] [address] [place] [address] #### B12, FOL, CMP, PREALB, ANDREZ, CBCD #### [facility] [address] [place] [address] 53252 RBC (Bld) [#/Vol] 4.93 10*6/uL Normal 4.10-5.10 [facility] Comment on above: Performed By: #### V ITB1, ZINC #### [facility] [address] [place] [address] #### B12, FOL, CMP, PREALB, ANDREZ, CBCD #### [facility] [address] [place] [address] RED CELL DISTRI WIDTH 13.6 % Normal 0-14.5 [facility] Comment on above: Performed By: #### V ITB1, ZINC #### [facility] [address] [place] [address] #### B12, FOL, CMP, PREALB, ANDREZ, CBCD #### [facility] [address] [place] [address] WBC (Bld) [#/Vol] 5.7 10*3/uL Normal 4.8-10.8 [facility] Comment on above: Performed By: #### V ITB1, ZINC #### [facility] [address] [place] [address] #### B12, FOL, CMP, PREALB, ANDREZ, CBCD #### [facility] [address] [place] [address] CHEST (2 V)on 08-13-2022 CRCXR Name: BATOOL KINGSLEY Phys: KAELA ARELLANO CNP : 2000 Age: 22 Sex: F Acct: [id number] Loc: RAD Exam Date: 08/13/2022 Status: REG CLI Radiology No: [id number] Unit No: [id number] EXAM# TYPE/EXAM RESULT [id number] RAD/CHEST (2 V) SEE REPORT INDICATION: Stuffy [...] pneumonia or pulmonary edema. Signed by Deric Abel, D.O. REPORT SIGNED IN OTHER VENDOR SYSTEM 08/13/2022 Reported By: DERIC PERDOMO D.O. CC: Technologist: WIN CHRISTIE Transcribed Date/Time: 08/13/2022 (0391) Driver Service Technician: OSCAR Printed Date/Time: 08/13/2022 (9997) PAGE 1 Signed Report Normal [facility] COMPREHENSIVE METABOLIC PANE Evan 08-13-2022 Albumin [Mass/Vol] 3.7 g/dL Normal 3.4-5.0 [facility] Comment on above: Performed By: #### V ITB1, ZINC #### [facility] [address] [place] [address] #### B12, FOL, CMP, PREALB, ANDREZ, CBCD #### [facility] [address] [place] [address] 41806 ALP [Catalytic activity/Vol] 56 U/L Normal 46-116 [facility] Comment on above: Performed By: #### V ITB1, ZINC #### [facility] [address] [place] [address] #### B12, FOL, CMP, PREALB, ANDREZ, CBCD #### [facility] [address] [place] [address] 30576 ALT [Catalytic activity/Vol] 21 U/L Normal 10-49 [facility] Comment on above: Performed By: #### V ITB1, ZINC #### [facility] [address] [place] [address] #### B12, FOL, CMP, PREALB, ANDREZ, CBCD #### [facility] [address] [place] [address] 84500 AST [Catalytic activity/Vol] 23 U/L Normal 0-34 [facility] Comment on above: Performed By: #### V ITB1, ZINC #### [facility] [address] [place] [address] #### B12, FOL, CMP, PREALB, ANDREZ, CBCD #### [facility] [address] [place] [address] Bilirubin [Mass/Vol] mg/dL Low 0.3-1.2 [facility] Comment on above: Performed By: #### V ITB1, ZINC #### [facility] [address] [place] [address] #### B12, FOL, CMP, PREALB, ANDREZ, CBCD #### [facility] [address] [place] [address] 11927 CALCIUM,TOTAL 9.2 md/dL Normal 8.7-10.4 [facility] Comment on above: Performed By: #### V ITB1, ZINC #### [facility] [address] [place] [address] #### B12, FOL, CMP, PREALB, ANDREZ, CBCD #### [facility] [address] [place] [address] 01423 Chloride [Moles/Vol] 105 mmol/L Normal 98-107 [facility] Comment on above: Performed By: #### V ITB1, ZINC #### [facility] [address] [place] [address] #### B12, FOL, CMP, PREALB, ANDREZ, CBCD #### [facility] [address] [place] [address] 02732 CO2 [Moles/Vol] 25 mmol/L Normal 20-31 [facility] Comment on above: Performed By: #### V ITB1, ZINC #### [facility] [address] [place] [address] #### B12, FOL, CMP, PREALB, ANDREZ, CBCD #### [facility] [address] [place] [address] Creatinine [Mass/Vol] 0.53 mg/dL Low 0.55-1.02 [facility] Comment on above: Performed By: #### V ITB1, ZINC #### [facility] [address] [place] [address] #### B12, FOL, CMP, PREALB, ANDREZ, CBCD #### [facility] [address] [place] [address] EST GLOM FILT > 60 Normal [facility] Comment on above: Result Comment: Result Units: [...] #### V ITB1, ZINC #### [facility] [address] [place] [address] #### B12, FOL, CMP, PREALB, ANDREZ, CBCD #### [facility] [address] [place] [address] ESTIMATED GLOM FILT RATE > 60 Normal [facility] Comment on above: Performed By: #### V ITB1, ZINC #### [facility] [address] [place] [address] #### B12, FOL, CMP, PREALB, ANDREZ, CBCD #### [facility] [address] [place] [address] Glucose [Mass/Vol] 81 mg/dL Normal 65-99 [facility] Comment on above: Performed By: #### V ITB1, ZINC #### [facility] [address] [place] [address] #### B12, FOL, CMP, PREALB, ANDREZ, CBCD #### [facility] [address] [place] [address] Potassium [Moles/Vol] 4.5 mmol/L Normal 3.4-5.1 [facility] [facility] Comment on above: Performed By: #### V ITB1, ZINC #### [facility] [address] [place] [address] #### B12, FOL, CMP, PREALB, ANDREZ, CBCD #### [facility] [address] [place] [address] 83310 Protein [Mass/Vol] 7.0 g/dL Normal 6.0-8.0 [facility] Comment on above: Performed By: #### V ITB1, ZINC #### [facility] [address] [place] [address] #### B12, FOL, CMP, PREALB, ANDREZ, CBCD #### [facility] [address] [place] [address] 14407 Sodium [Moles/Vol] 138 mmol/L Normal 136-145 [facility] Comment on above: Performed By: #### V ITB1, ZINC #### [facility] [address] #### B12, FOL, CMP, PREALB, ANDREZ, CBCD #### [facility] [address] [place] [address] 36439 Urea nitrogen [Mass/Vol] 7 mg/dL Low 9-23 [facility] Comment on above: Performed By: #### V ITB1, ZINC #### [facility] [address] [place] [address] #### B12, FOL, CMP, PREALB, ANDREZ, CBCD #### [facility] [address] [place] [address] 82944 ESR (Sed Rate)on 08-13-2022 ESR (Bld) [Velocity] 20 mm/h Normal 0-20 [facility] Comment on above: Performed By: #### V ITB1, ZINC #### [facility] [address] [place] [address] #### B12, FOL, CMP, PREALB, ANDREZ, CBCD #### [facility] [address] [place] [address] 69222 CBC with DIFFERENTIALon - Basophils (Bld) [#/Vol] 0.1 10*3/uL Normal 0.0-0.1 [facility] Comment on above: Performed By: #### C MP, TSH, LIPPAN, HBA1C, CBCD, INS #### [facility] [address] [place] [address] 00580 Basophils/100 WBC (Bld) 0.7 % Normal 0.0-1.0 [facility] Comment on above: Performed By: #### C MP, TSH, LIPPAN, HBA1C, CBCD, INS #### [facility] [address] [place] [address] 74239 Eosinophils (Bld) [#/Vol] 0.3 10*3/uL Normal 0.0-0.4 [facility] Comment on above: Performed By: #### C MP, TSH, LIPPAN, HBA1C, CBCD, INS #### [facility] [address] [place] [address] 75393 Eosinophils/100 WBC (Bld) 4.3 % High 1.0-4.0 [facility] Comment on above: Performed By: #### C MP, TSH, LIPPAN, HBA1C, CBCD, INS #### [facility] [address] [place] [address] 22482 Hematocrit (Bld) [Volume fraction] 43.7 % Normal 37.0-47.0 [facility] Comment on above: Performed By: #### C MP, TSH, LIPPAN, HBA1C, CBCD, INS #### [facility] [address] [place] [address] 78498 Hemoglobin (Bld) [Mass/Vol] 13.9 g/dL Normal 12.0-16.0 [facility] Comment on above: Performed By: #### C MP, TSH, LIPPAN, HBA1C, CBCD, INS #### [facility] [address] [place] [address] 79070 IG # 0.0 10*3/uL Normal 0.0-0.1 [facility] Comment on above: Performed By: #### C MP, TSH, LIPPAN, HBA1C, CBCD, INS #### [facility] [address] [place] [address] IG % 0.4 % Normal 0.0-1.0 [facility] Comment on above: Performed By: #### C MP, TSH, LIPPAN, HBA1C, CBCD, INS #### [facility] [address] [place] [address] 09087 Lymphocytes (Bld) [#/Vol] 3.2 10*3/uL Normal 1.3-4.4 [facility] Comment on above: Performed By: #### C MP, TSH, LIPPAN, HBA1C, CBCD, INS #### [facility] [address] [place] [address] 45059 Lymphocytes/100 WBC (Bld) 42.7 % High 27.0-41.0 [facility] Comment on above: Performed By: #### C MP, TSH, LIPPAN, HBA1C, CBCD, INS #### [facility] [address] [place] [address] 60437 MCV (RBC) [Entitic vol] 90.3 fL Normal 81.0-99.0 [facility] Comment on above: Performed By: #### C MP, TSH, LIPPAN, HBA1C, CBCD, INS #### [facility] [address] [place] [address] 91965 MEAN CORPUSCULAR HGB 28.7 pg Normal 27.0-31.0 [facility] Comment on above: Performed By: #### C MP, TSH, LIPPAN, HBA1C, CBCD, INS #### [facility] [address] [place] [address] 55602 MEAN CORPUSCULAR HGB CONC 31.8 g/dl Low 33.0-37.0 [facility] Comment on above: Performed By: #### C MP, TSH, LIPPAN, HBA1C, CBCD, INS #### [facility] [address] [place] [address] 53138 Monocytes (Bld) [#/Vol] 0.4 10*3/uL Normal 0.1-1.0 [facility] Comment on above: Performed By: #### C MP, TSH, LIPPAN, HBA1C, CBCD, INS #### [facility] [address] [place] [address] 93351 Monocytes/100 WBC (Bld) 5.4 % Normal 3.0-9.0 [facility] Comment on above: Performed By: #### C MP, TSH, LIPPAN, HBA1C, CBCD, INS #### [facility] [address] [place] [address] 59857 Neutrophils (Bld) [#/Vol] 3.4 10*3/uL Normal 2.3-7.9 [facility] Comment on above: Performed By: #### C MP, TSH, LIPPAN, HBA1C, CBCD, INS #### [facility] [address] [place] [address] 63737 Neutrophils/100 WBC (Bld) 46.5 % Low 47.0-73.0 [facility] Comment on above: Performed By: #### C MP, TSH, LIPPAN, HBA1C, CBCD, INS #### [facility] [address] [place] [address] 57178 NUCLEATED RED BLOOD CELL 0.0 10*3/uL Normal 0.0-0.0 [facility] Comment on above: Performed By: #### C MP, TSH, LIPPAN, HBA1C, CBCD, INS #### [facility] [address] [place] [address] 88278 NUCLEATED RED BLOOD CELL 0.0 % Normal 0.0-0.0 [facility] Comment on above: Performed By: #### C MP, TSH, LIPPAN, HBA1C, CBCD, INS #### [facility] [address] [place] [address] 35657 PLATELET COUNT AUTOMATED 309 10*3/uL Normal 130-400 [facility] Comment on above: Performed By: #### C MP, TSH, LIPPAN, HBA1C, CBCD, INS #### [facility] [address] [place] [address] Platelet mean volume (Bld) [Entitic vol] 10.3 fL Normal 9.6-12.3 [facility] Comment on above: Performed By: #### C MP, TSH, LIPPAN, HBA1C, CBCD, INS #### [facility] [address] [place] [address] 30299 RBC (Bld) [#/Vol] 4.84 10*6/uL Normal 4.10-5.10 [facility] Comment on above: Performed By: #### C MP, TSH, LIPPAN, HBA1C, CBCD, INS #### [facility] [address] [place] [address] RED CELL DISTRI WIDTH 13.5 % Normal 0-14.5 [facility] Comment on above: Performed By: #### C MP, TSH, LIPPAN, HBA1C, CBCD, INS #### [facility] [address] [place] [address] WBC (Bld) [#/Vol] 7.4 10*3/uL Normal 4.8-10.8 [facility] Comment on above: Performed By: #### C MP, TSH, LIPPAN, HBA1C, CBCD, INS #### [facility] [address] [place] [address] 80769 COMPREHENSIVE METABOLIC PANE [facility] 07-31-2022 Albumin [Mass/Vol] 3.9 g/dL Normal 3.4-5.0 [facility] Comment on above: Performed By: #### V ITB1, ZINC #### [facility] [address] [place] [address] #### B12, FOL, CMP, PREALB, ANDREZ, CBCD #### [facility] [address] [place] [address] 76935 ALP [Catalytic activity/Vol] 60 U/L Normal 46-116 [facility] Comment on above: Performed By: #### V ITB1, ZINC #### [facility] [address] [place] [address] #### B12, FOL, CMP, PREALB, ANDREZ, CBCD #### [facility] [address] [place] [address] ALT [Catalytic activity/Vol] 23 U/L Normal 10-49 [facility] Comment on above: Performed By: #### V ITB1, ZINC #### [facility] [address] [place] [address] #### B12, FOL, CMP, PREALB, ANDREZ, CBCD #### [facility] [address] [place] [address] AST [Catalytic activity/Vol] 17 U/L Normal 0-34 [facility] Comment on above: Performed By: #### V ITB1, ZINC #### [facility] [address] [place] [address] #### B12, FOL, CMP, PREALB, ANDREZ, CBCD #### [facility] [address] [place] [address] 45252 Bilirubin [Mass/Vol] 0.3 mg/dL Normal 0.3-1.2 [facility] Comment on above: Performed By: #### V ITB1, ZINC #### [facility] [address] [place] [address] #### B12, FOL, CMP, PREALB, ANDREZ, CBCD #### [facility] [address] [place] [address] 13687 CALCIUM,TOTAL 9.6 md/dL Normal 8.7-10.4 [facility] Comment on above: Performed By: #### V ITB1, ZINC #### [facility] [address] [place] [address] #### B12, FOL, CMP, PREALB, ANDREZ, CBCD #### [facility] [address] [place] [address] 73685 Chloride [Moles/Vol] 102 mmol/L Normal 98-107 [facility] Comment on above: Performed By: #### V ITB1, ZINC #### [facility] [address] [place] [address] #### B12, FOL, CMP, PREALB, ANDREZ, CBCD #### [facility] [address] [place] [address] CO2 [Moles/Vol] 27 mmol/L Normal 20-31 [facility] Comment on above: Performed By: #### V ITB1, ZINC #### [facility] [address] [place] [address] #### B12, FOL, CMP, PREALB, ANDREZ, CBCD #### [facility] [address] [place] [address] Creatinine [Mass/Vol] 0.58 mg/dL Normal 0.55-1.02 [facility] Comment on above: Performed By: #### V ITB1, ZINC #### [facility] [address] [place] [address] #### B12, FOL, CMP, PREALB, ANDREZ, CBCD #### [facility] [address] [place] [address] 57232 EST GLOM FILT > 60 Normal [facility] Comment on above: Result Comment: Result Units: [...] #### V ITB1, ZINC #### [facility] [address] [place] [address] #### B12, FOL, CMP, PREALB, ANDREZ, CBCD #### [facility] [address] [place] [address] ESTIMATED GLOM FILT RATE > 60 Normal [facility] Comment on above: Performed By: #### V ITB1, ZINC #### [facility] [address] [place] [address] #### B12, FOL, CMP, PREALB, ANDREZ, CBCD #### [facility] [address] [place] [address] 29754 Glucose [Mass/Vol] 73 mg/dL Normal 65-99 [facility] Comment on above: Performed By: #### V ITB1, ZINC #### [facility] [address] [place] [address] #### B12, FOL, CMP, PREALB, ANDREZ, CBCD #### [facility] [address] [place] [address] 55658 Potassium [Moles/Vol] 4.2 mmol/L Normal 3.4-5.1 [facility] Comment on above: Performed By: #### V ITB1, ZINC #### [facility] [address] [place] [address] #### B12, FOL, CMP, PREALB, ANDREZ, CBCD #### [facility] [address] [place] [address] 60139 Protein [Mass/Vol] 7.2 g/dL Normal 6.0-8.0 [facility] Comment on above: Performed By: #### V ITB1, ZINC #### [facility] [address] [place] [address] #### B12, FOL, CMP, PREALB, ANDREZ, CBCD #### [facility] [address] [place] [address] 58237 Sodium [Moles/Vol] 137 mmol/L Normal 136-145 [facility] Comment on above: Performed By: #### V ITB1, ZINC #### [facility] [address] [place] [address] #### B12, FOL, CMP, PREALB, ANDREZ, CBCD #### [facility] [address] [place] [address] Urea nitrogen [Mass/Vol] 11 mg/dL Normal 9-23 [facility] Comment on above: Performed By: #### V ITB1, ZINC #### [facility] [address] [place] [address] #### B12, FOL, CMP, PREALB, ANDREZ, CBCD #### [facility] [address] [place] [address] 01207 [id number] 07-31-2022 ESTIMATED AVERAGE GLUCOSE 100 Normal [facility] Comment on above: Performed By: #### V ITB1, ZINC #### [facility] [address] [place] [address] #### B12, FOL, CMP, PREALB, ANDREZ, CBCD #### [facility] [address] [place] [address] HbA1c (Bld) [Mass fraction] 5.1 % Normal 4.8-5.6 [facility] Comment on above: Result Comment: Standarization of method based on National Glycohemoglobin Standardization Program (NGSP). HEMOGLOBIN A1c(%) DEGREE of GLUCOSE CONTROL 5.7-6.4% Prediabetes range >6.4% Diagnosis of Diabetes <7% Glycemic control for adults with Diabetes Performed By: #### V ITB1, ZINC #### [facility] [address] [place] [address] #### B12, FOL, CMP, PREALB, ANDREZ, CBCD #### [facility] [address] [place] [address] 05761 INSULINon 07-31-2022 INSULIN 45.6 mU/L High 2.6-37.6 [facility] Comment on above: Performed By: #### V ITB1, ZINC #### [facility] [address] [place] [address] #### B12, FOL, CMP, PREALB, ANDREZ, CBCD #### [facility] [address] [place] [address] LIPID PANEL CHOLESTEROL/HDLo n 07-31-2022 Cholesterol [Mass/Vol] 170 mg/dL Normal <200 [facility] Comment on above: Performed By: #### V ITB1, ZINC #### [facility] [address] [place] [address] #### B12, FOL, CMP, PREALB, ANDREZ, CBCD #### [facility] [address] [place] [address] Cholesterol in HDL [Mass/Vol] 31 mg/dL Low 40-60 [facility] Comment on above: Performed By: #### V ITB1, ZINC #### [facility] [address] [place] [address] #### B12, FOL, CMP, PREALB, ANDREZ, CBCD #### [facility] [address] [place] [address] 20685 Cholesterol in LDL [Mass/Vol] 73 mg/dL Normal 9-159 [facility] Comment on above: Performed By: #### V ITB1, ZINC #### [facility] [address] [place] [address] #### B12, FOL, CMP, PREALB, ANDREZ, CBCD #### [facility] [address] [place] [address] 56258 Cholesterol.total/Chol esterol in HDL [Mass ratio] 5.5 {ratio} Normal [facility] Comment on above: Performed By: #### V ITB1, ZINC #### [facility] [address] [place] [address] #### B12, FOL, CMP, PREALB, ANDREZ, CBCD #### [facility] [address] [place] [address] 60512 Triglyceride [Mass/Vol] 328 mg/dL High <150 [facility] Comment on above: Result Comment: TRIGLYCERIDE RISK ASSESSMENT: 150-199 mg/dl BORDERLINE HIGH >200 mg//dl HIGH . Performed By: #### V ITB1, ZINC #### [facility] [address] [place] [address] #### B12, FOL, CMP, PREALB, ANDREZ, CBCD #### [facility] [address] [place] [address] VLDL CHOLESTEROL 66 mg/dL High 6-40 [facility] Comment on above: Performed By: #### V ITB1, ZINC #### [facility] [address] [place] [address] #### B12, FOL, CMP, PREALB, ANDREZ, CBCD #### [facility] [address] [place] [address] THYROID STIM HORMONE (HS)on 07-31-2022 THYROID STIM HORMONE (HS) 2.569 uIU/ml Normal 0.550-4.780 [facility] Comment on above: Performed By: #### V ITB1, ZINC #### [facility] [address] [place] [address] #### B12, FOL, CMP, PREALB, ANDREZ, CBCD #### [facility] [address] [place] [address] NICOTINE METABOLITE, QUANTon 07-19-2022 COTININE <1.0 Normal . [facility] Comment on above: Order Comment: FAX T O [phone] Result Comment: This test was developed and its performance characteristics determined by [employer]. It has not been cleared or approved by the Food and Drug Administration. Cotinine levels greater than 20.0 are consistent with the use of tobacco or tobacco cessation products. Performed at: [address] [id number] Personalization Specialist: Estuardo Michelle MD, Phone: [phone] Performed By: #### N ICOTINE #### [facility] [address] [place] [address] NICOTINE <1.0 Normal . [facility] Comment on above: Order Comment: FAX T O [phone] Result Comment: This test was developed and its performance characteristics determined by [facility]. It has not been cleared or approved by the Food and Drug Administration. Nicotine levels greater than 2.0 are consistent with the use of tobacco or tobacco cessation products. Performed By: #### N ICOTINE #### [facility] [address] [place] [address] HIPS BILATERAL (2V)on 2021 [facility] Name: BATOOL KINGSLEY ADARSH Phys: LASHAWN WELLS NP : 2000 Age: 22 Sex: F Acct: [id number] Loc: RAD Exam Date: 06/14/2022 Status: REG CLI Radiology No: [id number] Unit No: [id number] EXAM# TYPE/EXAM RESULT [id number] RAD/HIPS BILATERAL (2V) SEE REPORT INDICATION: Sharp [...] NP Technologist: Eugene Wagner Transcribed Date/Time: 06/14/2022 (8805) Driver Service Technician: OSCAR Printed Date/Time: 06/14/2022 (2061) PAGE 1 Signed Report Normal [facility] Vitamin B1 (Thiamine), Whole Bloodon 05-09-2022 Vitamin B1, Whole Blood 116 nmol/L Normal 70-180 [facility] Comment on above: Result Comment: INTE RPRETIVE INFORMATION: Vitamin B1, Whole Blood This assay measures the concentration of thiamine diphosphate (TDP), the primary active form of vitamin B1. Approximately 90 percent of vitamin B1 present in whole blood is TDP. Thiamine and thiamine monophosphate, which comprise the remaining 10 percent, are not measured. This test was developed and its performance characteristics determined by [employer]. It has not been cleared or approved by the [place] Food and Drug Administration. This test was performed in a CLIA certified laboratory and is intended for clinical purposes. Performed By: [facility] [address] [place], [place] [id number] Data Analytics Developer: Francisco Javier Zhang MD, PhD Performed By: #### 8 [id number] ####[facility] Reference [address] [place], [place] [id number] Zinc, Serumon 05-07-2022 Zinc, Serum 75.6 ug/dL Normal 60.0-120.0 [facility] Comment on above: Result Comment: INTE RPRETIVE [...] developed and its performance characteristics determined by [facility]. It has not been cleared or approved by the [place] Food and Drug Administration. This test was performed in a CLIA certified laboratory and is intended for clinical purposes. Performed By: [facility] [address] [place], [place] [id number] Data Analytics Developer: Francisco Javier Zhang MD, PhD Performed By: #### 2 0097 #### [facility] [address] [place], [place] [id number] Blood glucose - POCTon 05-04 Glucose [Mass/Vol] 96 mg/dL [facility] [employer] Work Phone: QC OK? [facility] Work Phone: [facility]Con 05-04-2022 Hematocrit (Bld) [Volume fraction] 40.4 % 34.0 - 48.0 % [facility] Hemoglobin (Bld) [Mass/Vol] 13.2 g/dL 11.5 - 15.5 g/dL [facility] MCH (RBC) [Entitic mass] 29.9 pg 26.0 - 35.0 pg [facility] MCHC (RBC) [Mass/Vol] 32.7 % 32.0 - 34.5 % [facility] MCV (RBC) [Entitic vol] 91.6 fL 80.0 - 99.9 fL [facility] Platelet distribution width (Bld) [Ratio] 13.0 fL 11.5 - 15.0 fL [facility] Platelet mean volume (Bld) [Entitic vol] 9.8 fL 7.0 - 12.0 fL [facility] Platelets (Bld) [#/Vol] 313 10*3/uL [facility] RBC (Bld) [#/Vol] 4.41 10*6/uL [facility] WBC (Bld) [#/Vol] 9.2 10*3/uL [facility] CBC With Platelet No Differe ntialon 05-04-2022 Hematocrit (Bld) [Volume fraction] 40.4 % Normal 34.0-48.0 [facility] Hemoglobin (Bld) [Mass/Vol] 13.2 g/dL Normal 11.5-15.5 [facility] MCH (RBC) [Entitic mass] 29.9 pg Normal 26.0-35.0 [facility] MCHC 32.7 % Normal 32.0-34.5 [facility] MCV (RBC) [Entitic vol] 91.6 fL Normal 80.0-99.9 [facility] Platelet Count 313 E9/L Normal 130-450 [facility] Platelet mean volume (Bld) [Entitic vol] 9.8 fL Normal 7.0-12.0 [facility] RBC 4.41 E12/L Normal 3.50-5.50 [facility] RDW 13.0 fL Normal 11.5-15.0 [facility] WBC 9.2 E9/L Normal 4.5-11.5 [facility] Cholesterolon 05-04-2022 Cholesterol [Mass/Vol] 162 mg/dL Normal 0-199 [facility] Cholesterol, Totalon 022 Cholesterol [Mass/Vol] 162 mg/dL 0 - 1 99 mg/dL [facility] Comprehensive Metabolic Pane evan 05-04-2022 Albumin [Mass/Vol] 4.1 g/dL Normal 3.5-5.2 [facility] ALP [Catalytic activity/Vol] 64 U/L Normal 35-104 [facility] ALT [Catalytic activity/Vol] 22 U/L Normal 0-32 [facility] Anion gap [Moles/Vol] 10 mmol/L Normal 7-16 [facility] AST [Catalytic activity/Vol] 13 U/L Normal 0-31 [facility] Bilirubin [Mass/Vol] 0.2 mg/dL Normal 0.0-1.2 [facility] Calcium [Mass/Vol] 8.9 mg/dL Normal 8.6-10.2 [facility] Chloride [Moles/Vol] 102 mmol/L Normal 98-107 [facility] CO2 [Moles/Vol] 25 mmol/L Normal 22-29 [facility] Creatinine [Mass/Vol] 0.7 mg/dL Normal 0.5-1.0 [facility] GFR Calculated >60 Normal >=60 [facility] Comment on above: Result Comment: Dion [...] 96 mg/dL Normal 74-99 [facility] Potassium [Moles/Vol] 4.5 mmol/L Normal 3.5-5.0 [facility] Protein [Mass/Vol] 6.9 g/dL Normal 6.4-8.3 [facility] Sodium [Moles/Vol] 137 mmol/L Normal 132-146 [facility] Urea nitrogen [Mass/Vol] 17 mg/dL Normal 6-20 [facility] Albumin [Mass/Vol] 4.1 g/dL 3.5 - 5.2 g/dL [facility] ALP (Bld) [Catalytic activity/Vol] 64 U/L 35 - 104 U/L [facility] ALT [Catalytic activity/Vol] 22 U/L 0 - 32 U/L [facility] Anion gap [Moles/Vol] 10 mmol/L 7 - 16 mmol/L [facility] AST [Catalytic activity/Vol] 13 U/L 0 - 31 U/L [facility] Bilirubin [Mass/Vol] 0.2 mg/dL 0.0 - 1 .2 mg/dL [facility] Calcium [Mass/Vol] 8.9 mg/dL 8.6 - 10. 2 mg/dL [facility] Chloride [Moles/Vol] 102 mmol/L 98 - 10 7 mmol/L [facility] CO2 [Moles/Vol] 25 mmol/L 22 - 29 mmol/L [facility] Creatinine [Mass/Vol] 0.7 mg/dL 0.5 - 1.0 mg/dL [facility] GFR/1.73 sq M.predicted MDRD (S/P/Bld) [Vol rate/Area] mL/min/1.73 60 - PINF mL/min/1.73 [facility] Comment on above: Pediatric calculator link [...] 74 - 99 mg/dL [facility] Potassium [Moles/Vol] 4.5 mmol/L 3.5 - 5.0 mmol/L [facility] Protein [Mass/Vol] 6.9 g/dL 6.4 - 8.3 g/dL [employer] [facility] Sodium [Moles/Vol] 137 mmol/L 132 - 146 mmol/L [facility] Urea nitrogen (BldV) [Mass/Vol] 17 mg/dL 6 - 20 mg/dL [facility] Ferritinon 05-04-2022 Ferritin [Mass/Vol] 69 ng/mL Normal [facility] Comment on above: Result Comment: FERR ITIN Reference Ranges: Adult Males 20 - 60 years: 30 - 400 ng/mL Adult females 17 - 60 years: 13 - 150 ng/mL Adults greater than 60 years: no established reference range Pediatrics: no established reference range Folateon 05-04-2022 Folate 8.5 ng/mL Normal 4.8-24.2 [facility] Hgb A1Con 05-04-2022 HbA1c (Bld) [Mass fraction] 5.7 % High 4.0-5.6 [facility] METER GLUCOSEon 05-04-2022 Glucose [Mass/Vol] 93 mg/dL Normal 74-99 [facility] Glucose [Mass/Vol] 96 mg/dL Normal 74-99 [facility] No Panel Informationon 05-04 [employer] Work Phone: POC Urine Qualon 1 07-04-2021 Beta HCG ( test) Ql (U) Negative Negative [employer] Work Phone: Lot Number [id number] [employer] Work Phone: Negative QC Pass/Fail Pass [employer] Work Phone: Positive QC Pass/Fail Pass [employer] Work Phone: [employer] Work Phone: POCT Glucoseon 05-04-2022 Glucose [Mass/Vol] 93 mg/dL 74 - 99 mg/dL [employer] Glucose [Mass/Vol] 96 mg/dL 74 - 99 mg/dL [employer] Prealbuminon 05-04-2022 Prealbumin [Mass/Vol] 24 mg/dL Normal 20-40 [facility] Surgical Specimenon 05-04-20 Surgical Specimen [place] [id number] [address] [address] [place], [place] [address] [place], [place] [address] FINAL SURGICAL PATHOLOGY REPORT NAME: BATOOL KINGSLEY Date of 05/04/2022 Collection: Medical Record [id number] Date of 05/04/2022 Number: Receipt: Age: 22 Y Sex: F Date 05/11/2022 08:29 Reported: Date Of : 2000 Financial [id number] Admitting DERIC [place]ORENCE Number: Physician: Patient DIS [...] submitted. Block label: A1. (JORGE L:YAYA) CODES: [id number]; Department of Pathology Page 1 of 1 Normal [facility] Triglycerideon 05-04-2022 Interpretation and review of laboratory results Abnormal [facility] Triglyceride [Mass/Vol] 274 mg/dL High 0 - 149 mg/dL [facility] Triglycerideson 05-04-2022 Triglyceride [Mass/Vol] 274 mg/dL High 0-149 [facility] Vitamin B12on 05-04-2022 Cobalamin (Vitamin B12) [Mass/Vol] 226 pg/mL Normal 211-946 [facility] US GALLBLADDER RUQon 022 US GALLBLADDER RUQ [...] fluid, wall thickening or stones. Negative sonographic Snu's sign. Common bile duct is within normal [...] Rohit Dowling MD 05/02/22 Final result Normal [facility] Comment on above: Order Comment: Reaso n for exam:->Indigestion What reading provider will be dictating this exam?->CRC CBC Auto DifferentialOrdered By: Win Narvaez on 03-27-2021 Basophils (Bld) [#/Vol] 0.05 10*3/uL [facility] Phone: Basophils/100 WBC (Bld) 0.5 % 0.0 - 2.0 % [facility] Phone: Eosinophils Absolute 0.37 [facility] [employer] Phone: Eosinophils/100 WBC (Bld) 3.8 % 0.0 - 6.0 % [facility] Phone: Hematocrit (Bld) [Volume fraction] 39.5 % 34.0 - 48.0 % [facility] Phone: Hemoglobin.gastrointes tinal spec 1 Ql (Stl) 12.6 g/dL 11.5 - 15.5 g/dL [facility] Phone: Immature Granulocytes # 0.18 E9/L [facility] Phone: Immature granulocytes/100 WBC (Bld) 1.8 % 0.0 - 5.0 % [facility] Phone: Interpretation and review of laboratory results Abnormal [facility] Phone: Lymphocytes Absolute 3.73 [facility] [employer] Phone: Lymphocytes/100 WBC (Bld) 38.2 % 20.0 - 42.0 % [facility] Phone: MCH (RBC) [Entitic mass] 28.9 pg 26.0 - 35.0 pg [facility] Phone: MCHC (RBC) [Mass/Vol] 31.9 % Low 32.0 - 34.5 % [facility] Phone: MCV (RBC) [Entitic vol] 90.6 fL 80.0 - 99.9 fL [facility] Phone: Monocytes Absolute 0.46 [facility] Phone: Monocytes/100 WBC (Bld) 4.7 % 2.0 - 12.0 % [facility] Phone: Neutrophils Absolute 4.97 [facility] [employer] Phone: Neutrophils/100 WBC (Bld) 51.0 % 43.0 - 80.0 % [facility] Phone: Platelet distribution width (Bld) [Ratio] 13.3 fL 11.5 - 15.0 fL [facility] Phone: Platelet mean volume (Bld) [Entitic vol] 9.7 fL 7.0 - 12.0 fL [facility] Phone: Platelets (Bld) [#/Vol] 281 10*3/uL [facility] Phone: RBC (Bld) [#/Vol] 4.36 10*6/uL [facility] Phone: WBC (Bld) [#/Vol] 9.8 10*3/uL [facility] Phone: Comprehensive Metabolic Pane l w/ Reflex to MGOrdered By: Win Narvaez on 03-27-2021 Albumin [Mass/Vol] 4.2 g/dL 3.5 - 5.2 g/dL [facility] Phone: ALP (Bld) [Catalytic activity/Vol] 64 U/L 35 - 104 U/L [facility] Phone: ALT [Catalytic activity/Vol] 19 U/L 0 - 32 U/L [facility] Phone: Anion gap [Moles/Vol] 12 mmol/L 7 - 16 mmol/L [facility] Phone: AST [Catalytic activity/Vol] 14 U/L 0 - 31 U/L [facility] Phone: Bilirubin [Mass/Vol] mg/dL 0.0 - 1 .2 mg/dL [facility] Phone: Calcium [Mass/Vol] 9.1 mg/dL 8.6 - 10. 2 mg/dL [facility] Phone: Chloride [Moles/Vol] 103 mmol/L 98 - 10 7 mmol/L [facility] Phone: CO2 [Moles/Vol] 22 mmol/L 22 - 29 mmol/L [facility] Phone: Creatinine [Mass/Vol] 0.5 mg/dL 0.5 - 1.0 mg/dL [facility] Phone: Free PSA/Total PSA [Mass fraction] 7.1 g/dL 6.4 - 8.3 g/dL [facility] Phone: GFR >60 [facility] Kitchen Phone: GFR Non- >60 >=60 mL/min/1.73 [facility] Phone: Comment on above: Chronic Kidney Disea se: less than 60 ml/min/1.73 sq.m. Kidney Failure: less than 15 ml/min/1.73 sq.m. Results valid for patients 18 years and older. Glucose [Mass/Vol] 107 mg/dL High 74 - 99 mg/dL [facility] Phone: Interpretation and review of laboratory results Abnormal [facility] Phone: Potassium [Moles/Vol] 4.2 mmol/L 3.5 - 5.0 mmol/L [facility] Phone: Sodium [Moles/Vol] 137 mmol/L 132 - 146 mmol/L [facility] Phone: Urea nitrogen (BldV) [Mass/Vol] 9 mg/dL 6 - 20 mg/dL [facility] Phone: [facility] Phone: Microscopic UrinalysisOrdere d By: Win Narvaez on 03-27-2021 Bacteria, UA FEW Abnormal None Seen /HPF [facility] Phone: Epithelial Cells, UA FEW /HPF [facility] [employer] Phone: Interpretation and review of laboratory results Abnormal [facility] Phone: RBC, UA 2-5 [facility] Phone: WBC, UA 0-1 [facility] Phone: [facility] Phone: No Panel InformationOrdered By: Win Narvaez on 03-27-2021 [facility] Phone: POC Urine QualOrde red By: Win Narvaez on 03-27-2021 Beta HCG ( test) Ql (U) Negative Negative [facility] Phone: Beta HCG ( test) Ql (U) [id number] [facility] Phone: Negative QC Pass/Fail Pass [facility] Work Phone: Positive QC Pass/Fail Pass [facility] [employer] Work Phone: US PELVIS COMPLETEOrdered By : Tien Oneal on 03-27-2021 The bilateral ovaries are mildly enlarged, right greater than left. Otherwise, unremarkable pelvic ultrasound. [facility] Phone: EXAMINATION: PELVIC ULTRASOUND 03/27/2021 TECHNIQUE: Multiple [...] Free Fluid: No evidence of free fluid. [facility] Phone: Antonio, [facility] Incoming Radiant Results From [employer] - 03/27/2021 3:01 PM EDT EXAMINATION: PELVIC [...] greater than left. Otherwise, unremarkable pelvic ultrasound. [facility] Phone: [facility] Phone: UrinalysisOrdered By: Win Narvaez on 03-27-2021 Bilirubin Urine Negative Negative [facility] Work Phone: Blood, Urine LARGE Abnormal Negative [facility] Work Phone: Clarity, UA Clear Clear [facility] Work Phone: Color, UA Yellow Straw/Yellow [facility] [employer] Work Phone: Glucose, Ur Negative Negative mg/dL [facility] [employer] Work Phone: Interpretation and review of laboratory results Abnormal [facility] [employer] Work Phone: Ketones Ql (U) Negative Negative mg/dL [facility] [employer] Work Phone: Leukocyte esterase Test strip Ql (U) Negative Negative [facility] Work Phone: Nitrite, Urine Negative Negative [facility] Work Phone: pH, UA 5.0 [facility] [employer] Work Phone: Protein, UA TRACE Negative mg/dL [facility] [employer] Work Phone: Specific [place], UA >=1.030 [facility] Work Phone: Urobilinogen, Urine 0.2 <2.0 E.U./dL [facility] [employer] Work Phone: [facility] [employer] Work Phone: NOSE/THROAT CULTUREon 2020 NOSE/THROAT CULTURE RUN DATE: 07/10/20 Laboratory LIVE PAGE 1 RUN TIME: 951 Specimen Inquiry RUN USER: INTERFACE [facility] Department of Laboratories [address] [place], [place] [id number] PATIENT: BATOOL KINGSLEY LOC: ALONDRA U #: [id number] HOME PHONE: AGE/SX: ROOM: RE07/08/[address]: Ameena Corcoran APRN.MACHINE BINDING FOLDER : 99 BED: DIS: STATUS: REG REF LAB O/S: Specimen: [id number] Collected: 07/08/20 Status: COMP Req#: [id number] Received: 07/08/20 Source: THROAT Sp Desc: Subm Dr: Ameena Corcoran APRN.CNP Ordered: NOSE/THRT CULT Procedure Result Verified > NOSE/THROAT CULTURE Final 07/10/20 HEAVY GROWTH OF NORMAL ARIN END OF REPORT Normal [facility] Comment on above: Performed By: #### C ULTNT #### [facility] [address] [address] Vital Signs Date Time Vital Sign Value Performing Clinician Facility 08-04-2024 12:02-0500 Body weight 114.67 kg Bryan Manisha DO Work Phone: [facility] 08-04-2024 12:02-0500 Diastolic blood pressure 82 mm[Hg] Bryan Manisha DO Work Phone: [facility] 08-04-2024 12:02-0500 Systolic blood pressure 120 mm[Hg] Bryan Manisha DO Work Phone: [facility] 07-21-2024 14:41-0500 Body weight 113.85 kg Bryan Manisha DO Work Phone: [facility] 07-21-2024 14:41-0500 Diastolic blood pressure 60 mm[Hg] Bryan Manisha DO Work Phone: [facility] 07-21-2024 14:41-0500 Systolic blood pressure 132 mm[Hg] Bryan Manisha DO Work Phone: [facility] 07-07-2024 10:53-0500 Body weight 112.04 kg Bryan Manisha DO Work Phone: [facility] 07-07-2024 10:53-0500 Diastolic blood pressure 74 mm[Hg] Bryan Manisha DO Work Phone: [facility] 07-07-2024 10:53-0500 Systolic blood pressure 122 mm[Hg] Bryan Manisha DO Work Phone: [facility] 06-16-2024 12:54-0500 Body weight 126.55 kg Bryan [...] 97 % Deric Florence MD [facility] 10-30-2022 05:00-0400 Body temperature 97.9 [degF] Deric Florence MD Work Phone[facility] 10-30-2022 05:00-0400 Diastolic blood pressure 74 mm[Hg] Deric Florence MD Work Phone[facility] 10-30-2022 05:00-0400 Heart rate 74 /min Deric Florence MD Work Phone: [employer] 10-30-2022 05:00-0400 Respiratory rate 18 /min Deric Florence MD Work Phone: [employer] 10-30-2022 05:00-0400 Systolic blood pressure 126 mm[Hg] Deric Florence MD Work Phone: [facility] [employer] 10-29-2022 06:50-0400 Body height 170.2 cm Deric Florence MD Work Phone: [facility] [employer] 10-29-2022 06:50-0400 Body mass index (BMI) [Ratio] 55.6 kg/m2 Deric Florence MD Work Phone: [facility] [employer] 10-29-2022 06:50-0400 Body weight 161.03 kg Deric Florence MD Work Phone: [facility] [employer] 10-24-2022 12:17-0400 Body height 170.2 cm Sjwz 2 [employer] 10-24-2022 12:17-0400 Body mass index (BMI) [Ratio] 55.44 kg/m2 Sjwz 2 [facility] [employer] 10-24-2022 12:17-0400 Body temperature 98.01 [degF] Sjwz 2 [facility] [employer] [facility] [employer] 10-24-2022 12:17-0400 Body weight 160.57 kg Sjwz 2 [facility] [employer] 10-24-2022 12:17-0400 Diastolic blood pressure 62 mm[Hg] Sjwz 2 [facility] [employer] [facility] [employer] 10-24-2022 12:17-0400 Heart rate 77 /min Sjwz 2 [facility] [employer] 10-24-2022 12:17-0400 Respiratory rate 16 /min Sjwz 2 [facility] [employer] [facility] [employer] 10-24-2022 12:17-0400 SaO2% (BldA) [Mass fraction] 95 % Sjwz 2 [facility] [employer] 10-24-2022 12:17-0400 Systolic blood pressure 117 mm[Hg] Sjwz 2 [facility] [employer] 05-04-2022 08:55-0400 Body temperature 98.29 [degF] Deric Florence MD Work Phone: [facility] [employer] 05-04-2022 08:55-0400 Diastolic blood pressure 68 mm[Hg] Deric Florence MD Work Phone: [employer] 05-04-2022 08:55-0400 Heart rate 83 /min Deric Florence MD Work Phone: [facility] [employer] 05-04-2022 08:55-0400 Respiratory rate 16 /min Deric Florence MD Work Phone: [facility] [employer] 05-04-2022 08:55-0400 SaO2% (BldA) [Mass fraction] 92 % Deric Florence MD Work Phone: [facility] [employer] 05-04-2022 08:55-0400 Systolic blood pressure 128 mm[Hg] Deric Florence MD Work Phone: [employer] 05-04-2022 07:06-0400 Body height 170.2 cm Deric Florence MD Work Phone: [employer] 05-04-2022 07:06-0400 Body mass index (BMI) [Ratio] 61.21 kg/m2 Deric Florence MD Work Phone: [employer] 05-04-2022 07:06-0400 Body weight 177.27 kg Deric Florence MD Work Phone: [employer] 03-27-2021 20:08-0400 Heart rate 95 /min Tien Oneal DO Work Phone: [employer] Work Phone: 03-27-2021 13:47-0400 Body height 170.2 cm Tien Oneal [employer] Work Phone: [employer] Work Phone: 03-27-2021 13:47-0400 Body mass index (BMI) [Ratio] 54.82 kg/m2 Tien Oneal [employer] Work Phone: [employer] Work Phone: 03-27-2021 13:47-0400 Body temperature 97.11 [degF] Tien Oneal DO Work Phone: [employer] Work Phone: 03-27-2021 13:47-0400 Body weight 158.76 kg Tien Oneal Work Phone: [employer] Work Phone: 03-27-2021 13:47-0400 Diastolic blood pressure 80 mm[Hg] Tien Oneal DO Work Phone: [employer] Work Phone: 03-27-2021 13:47-0400 Respiratory rate 16 /min Tien Oneal [employer] Work Phone: [employer] Work Phone: 03-27-2021 13:47-0400 SaO2% (BldA) [Mass fraction] 98 % Tien Oneal DO Work Phone: [facility] Phone: 03-27-2021 13:47-0400 Systolic blood pressure 173 mm[Hg] Tien Oneal DO Work Phone: [employer] Phone: Encounters Encounter Date Encounter Type Care Provider Facility Start: 08-04-2024 End: 08-04-2024 Bamboo flowsheet Bryan Manisha DO Work Phone: [facility] Start: 08-04-2024 End: 08-04-2024 Bamboo flowsheet Bryan Manisha DO Work Phone: [facility] Start: 08-04-2024 End: 08-04-2024 ambulatory BRYAN MANISHA Not Available Start: 08-04-2024 End: 08-04-2024 Postop follow up visit related to original px Bryan Manisha DO Work Phone: [facility] Comment on above: Encounter for wound re-check Start: 07-21-2024 End: 07-21-2024 ambulatory BRYAN MANISHA Not Available Start: 07-21-2024 End: 07-21-2024 Postop follow up visit related to original px Bryan Manisha DO Work Phone: [facility] Comment on above: Encounter for wound re-check Start: 07-21-2024 End: 07-21-2024 Bamboo flowsheet Bryan Manisha DO Work Phone: [facility] Start: 07-21-2024 End: 07-21-2024 Bamboo flowsheet Bryan Manisha DO Work Phone: [facility] Start: 07-15-2024 ambulatory PHYSICIAN NO FAMILY Fac ility:[facility] Start: 07-07-2024 End: 07-07-2024 Bamboo flowsheet Bryan Manisha DO Work Phone: [facility] Start: 07-07-2024 End: 07-07-2024 Bamboo flowsheet Bryan Manisha DO Work Phone: [facility] Start: 07-07-2024 End: 07-07-2024 Postop follow up visit related to original px Bryan Manisha DO Work Phone: [facility] Comment on above: Postoperative visit; S/P section Start: 07-07-2024 End: 07-07-2024 ambulatory BRYAN MANISHA Not Available Start: 07-02-2024 End: 07-02-2024 Clinisync Result Encounter Bryan Manisha DO Work Phone: [facility] Unsolicited Start: 07-02-2024 End: 07-02-2024 Clinisync Result Encounter Bryan Manisha DO Work Phone: [facility] Unsolicited Start: 06-27-2024 End: 06-27-2024 ambulatory [facility] Facility:[facility] Start: 06-27-2024 End: 06-27-2024 Emergency department patient visit NO PCP NO PCP [facility] Start: 06-20-2024 End: 06-20-2024 Clinisync Result Encounter Bryan Manisha DO Work Phone: [facility] Unsolicited Start: 06-20-2024 End: 06-20-2024 Clinisync Result Encounter Bryan Manisha DO Work Phone: [facility] Unsolicited Start: 06-19-2024 End: 06-19-2024 ambulatory Bryan Manisha Facility:[facility] Start: 06-18-2024 End: 06-18-2024 Clinisync Result Encounter [...] flowsheet Bryan Manisha DO Work Phone: [facility] Start: 06-10-2024 End: 06-13-2024 Clinisync Result Encounter Bryan Manisha DO Work Phone: [facility] External Department Unsolicited Start: 06-10-2024 End: 06-10-2024 [...] flowsheet Bryan Manisha DO Work Phone: [facility] Start: 05-25-2024 End: 05-25-2024 Office outpatient visit 15 minutes Bryan Manisha DO Work Phone: [facility] Comment on above: 34 weeks gestation o f ; Third trimester ; Insomnia, unspecified type; History of gastric bypass; Gestational diabetes mellitus (GDM), antepartum, gestational diabetes method of control unspecified Start: 05-25-2024 End: 05-25-2024 ambulatory BRYAN MANISHA Not Available Start: 05-06-2024 End: 05-06-2024 Office outpatient visit 15 minutes Kierra HUNT Work Phone: [facility] Comment on above: Third trimester preg agatha; 31 weeks gestation of ; Anxiety, generalized (CMS/HCC); Sinusitis, unspecified chronicity, unspecified location Start: 05-06-2024 End: 05-06-2024 ambulatory KIERRA SHERWOOD Not Available Start: 05-06-2024 End: 05-06-2024 Bamboo flowsheet Kierra HUNT Work Phone: [facility] Start: 05-06-2024 End: 05-06-2024 Bamboo flowsheet Kierra HUNT Work Phone: [facility] Start: 04-21-2024 End: 04-21-2024 Office outpatient visit 15 minutes Bryan Manisha DO Work Phone: [facility] Comment on above: Third trimester preg agatha; 29 weeks gestation of ; Anemia during in third trimester; Elevated glucose tolerance test; Abnormal thyroid stimulating hormone (TSH) level Start: 04-21-2024 End: 04-21-2024 ambulatory BRYAN MANISHA Not Available Start: 04-21-2024 End: 04-21-2024 Bamboo flowsheet Bryan Manisha DO Work Phone: [facility] Start: 04-21-2024 End: 04-21-2024 Bamboo flowsheet Bryan Manisha DO Work Phone: [facility] Start: 04-21-2024 End: 04-21-2024 Clinisync Result Encounter Bryan Manisha DO Work Phone: [facility] Un[facility]olic[facility] Start: 04-07-2024 End: 04-07-2024 Office outpatient visit 15 minutes Kierra HUNT Work Phone: [facility] Comment on above: 27 weeks gestation o f ; Second trimester ; Gestational diabetes mellitus (GDM), antepartum, gestational diabetes method of control unspecified; Anemia affecting in second trimester Start: 04-07-2024 End: 04-07-2024 ambulatory KIERRA SHERWOOD Not Available Start: 04-07-2024 End: 04-07-2024 Bamboo flowsheet Kierra HUNT Work Phone: [facility] Start: 04-07-2024 End: 04-07-2024 Bamboo flowsheet Kierra HUNT Work Phone: [facility] Start: 03-17-2024 End: 03-17-2024 ambulatory [facility] Start: 03-09-2024 End: 03-09-2024 Office outpatient visit 15 minutes Bryan Manisha DO Work Phone: [facility] Comment on above: Diabetes mellitus sc reening; Second trimester Start: 03-09-2024 End: 03-09-2024 Bamboo flowsheet Bryan Manisha DO Work Phone: [facility] Start: 03-09-2024 End: 03-09-2024 Bamboo flowsheet Bryan Manisha DO Work Phone: [facility] Start: 03-09-2024 End: 03-09-2024 Clinisync Result Encounter Bryan Manisha DO Work Phone: [facility] Un[facility]olic[facility] Start: 03-09-2024 End: 03-09-2024 ambulatory BRYAN MANISHA Not Available Start: 02-17-2024 End: 02-17-2024 ambulatory BRYAN R MANISHA [facility] Start: 02-10-2024 End: 02-10-2024 ambulatory BRYAN MANISHA Not Available Start: 01-07-2024 End: 01-07-2024 ambulatory BRYAN MANISHA Not Available Start: 12-12-2023 End: 12-12-2023 ambulatory BRYAN VASQUEZZIO Not Available Start: 11-10-2023 End: 11-10-2023 Emergency department patient visit NO PCP NO PCP [facility] Start: 10-24-2023 End: 10-24-2023 Telephone encounter Madison Kidd [facility] Physician bruner Obstetrics/Gynecology Start: 08-14-2023 End: 08-14-2023 Emergency department patient visit TRAVIS PINEDA [facility] Start: 12-14-2022 ambulatory [facility] Facility:[facility] Start: 12-03-2022 ambulatory [facility] Facility:[facility] Start: 11-06-2022 ambulatory [facility] Facility:[facility] Start: 10-29-2022 End: 10-30-2022 Evaluation and management of inpatient [facility] Start: 10-29-2022 End: 10-30-2022 Evaluation and management of inpatient Deric Florence MD Work Phone: [facility] Comment on above: Post-operative state (Primary Dx); Morbid obesity (HCC) Start: 10-24-2022 End: 10-25-2022 ambulatory [facility] Start: 10-24-2022 Encounter for other preprocedural examination [facility] Start: 10-24-2022 End: 10-24-2022 Patient encounter status Hans 2 [facility] PRE ADMIT TESTING Start: 10-24-2022 End: 10-24-2022 Subsequent hospital visit by physician Hans Pat Room 2 [facility] PRE ADMIT TESTING Comment on above: Preop testing (Prima ry Dx); Malnutrition following gastrointestinal surgery Start: 10-04-2022 ambulatory [facility] Facility:[facility] Start: 08-13-2022 ambulatory [facility] Facility:[facility] Start: 07-31-2022 ambulatory [facility] Facility:[facility] Start: 07-13-2022 ambulatory [facility] Facility:[facility] Start: 06-14-2022 ambulatory [facility] Facility:[facility] Start: 05-04-2022 End: 05-04-2022 ambulatory KAELA ARELLANO [facility] Start: 05-04-2022 End: 05-04-2022 Subsequent hospital visit by physician Deric Florence MD Work Phone: [facility] Comment on above: Morbid obesity due t o excess calories (HCC); Gastroesophageal reflux disease Start: 05-02-2022 End: 05-05-2022 ambulatory DERIC FLORENCE [facility] Start: 03-27-2021 End: 03-27-2021 Emergency department patient visit Tien Judd Patriciarhonda DO Work Phone: [facility] Emergency Department Comment on above: DUB (dysfunctional u terine bleeding) (Primary Dx) Procedures Date Procedure Procedure Detail Performing Clinician Start: 07-02-2024 ALL CBC WITH AUTO DIFF Bryan Manisha DO Work Phone: Start: 06-20-2024 ALL CBC WITH AUTO DIFF [...] Basic metabolic panel calcium total Yang Shadi CHRONOGRAPH OPERATOR - MACHINE BINDING FOLDER Work Phone: Start: 10-30-2022 Lipid panel Yang Ferguson CHRONOGRAPH OPERATOR - MACHINE BINDING FOLDER Work Phone: Start: 10-30-2022 Gluc bld gluc [...] 10-29-2022 INCENTIVE SPIROMETRY RT KAELA GILLIAN Start: 05-01-2023 Gluc bld gluc mntr d ev cleared [...] VITAL SIGNS KAELA GILLIAN Start: 10-29-2022 Hemoglobin glycosyla nissa Yang Shadi CHRONOGRAPH OPERATOR - MACHINE BINDING FOLDER Work Phone: Start: 10-29-2022 Gluc bld gluc [...] Work Phone: Start: 10-24-2022 PAT PROTOCOL KAELA SOTOSE Start: 05-04-2022 Urine test visual color cmprsn meths Antonio Israel MD Work Phone: Start: 05-04-2022 Gluc bld gluc mntr d ev cleared fda spec home use KAELA SOTOSE Start: 05-04-2022 DISCHARGE PATIENT KAELA SOTOSE Start: 05-04-2022 Level iv surg pathol ogy gross&microscopic exam KAELA GILLIAN Start: 05-04-2022 DIAGNOSIS FOR PROCEDURE KAELA GILLIAN Start: 05-04-2022 DIET NPO KAELA GILLIAN Start: 05-04-2022 FULL CODE KAELA GILLIAN Start: 05-04-2022 NOTIFY PHYSICIAN (SPECIFY) KAELA SOTOSE Start: 05-04-2022 PROCEDURE CONSENT KAELA ARELLANO Start: 05-04-2022 VERIFY INFORMED CONSENT KAELA SOTOSE Start: 05-04-2022 VITAL SIGNS KAELA GILLIAN Start: 05-04-2022 Gluc bld gluc mntr d ev cleared fda spec home use Unknown Provider Result Start: 05-04-2022 End: 05-04-2022 Comprehensive metabolic panel Deric Florence MD Work Phone: Start: 05-02-2022 Us abdominal real ti me w/image limited DERIC FLORENCE Start: 03-27-2021 Blood count complete auto&auto difrntl wbc Win Narvaez PA-C Work Phone: Start: 03-27-2021 Urinalysis microscop ic only Win Narvaez PA-C Work Phone: Start: 03-27-2021 End: 03-27-2021 Urnls dip stick/tablet rgnt auto w/o microscopy Win Narvaez PA-C Work Phone: Start: 03-27-2021 Us pelvic nonobstetr ic real-time image complete Tien Oneal DO Work Phone: H/O: section S/P sectio n Bryan Manisha DO Work Phone: Plan of Treatment Date Care Activity Detail Author Start: 09-26-2027 DTaP,Tdap and Td Vaccines (8 - Td or Tdap) DTaP,Tdap and Td Vaccines (8 - Td or Tdap) [facility] Start: 08-20-2024 End: 08-20-2024 Patient encounter procedure 08/20/2024 11:10 AM EST Office Visit [facility] [address] [place] [address] Bryan Dyer, DO [address] [place] [address] [facility] Start: 08-14-2024 Adult BMI Screening Adult BMI Screening [facility] Start: 08-14-2024 Tobacco Screening Tobacco Screening [facility] Start: 08-04-2024 End: 08-04-2024 Patient encounter procedure 08/04/2024 11:20 AM EST Office Visit [facility] [address] [place] [address] Bryan Dyer, DO [address] [place] [address] [facility] Start: 07-30-2024 End: 07-30-2024 ambulatory 07/30/2024 11:20 AM EST Visit [facility] [address] [place] [address] Bryan Dyer, DO [address] [place] [address] [facility] Start: 07-28-2024 End: 07-28-2024 Patient encounter procedure 07/28/2024 11:30 AM EST Office Visit [facility] [address] [place] [id number] Bryna Dyer, DO [address] [place] [address] [facility] Start: 07-07-2024 End: 07-07-2024 Patient encounter procedure [facility] Comment on above: Arrived Start: 06-16-2024 End: 06-16-2024 Patient encounter procedure [...] EST Ancillary Procedure [facility] [address] [place] [id number] [facility] Start: 04-21-2024 End: 04-21-2024 Patient encounter procedure 04/21/2024 2:30 PM EDT Routine [facility] [address] [place] [id number] Bryan Dyer, DO [address] [place] [address] Arrived [facility] Comment on above: Arrived Start: 04-21-2024 End: 04-21-2025 US for US OB SCAN FOR GROWTH Imaging Routine Elevated glucose tolerance test Abnormal thyroid stimulating hormone (TSH) level Expected: 04/21/2024 (Approximate), Expires: 04/21/2025 [facility] Comment on above: Expected: 04/21/2024 (Approximate), Expi res: 04/21/2025 Start: 04-07-2024 End: 04-07-2024 Patient encounter procedure [facility] Comment on above: Arrived Start: 04-07-2024 End: 04-07-2025 US for US OB SCAN FOR GROWTH Imaging Routine Gestational diabetes mellitus (GDM), antepartum, gestational diabetes method of control unspecified Anemia affecting in second trimester Expected: 04/07/2024 (Approximate), Expires: 04/07/2025 [facility] Work Phone: Comment on above: Expected: 04/07/2024 (Approximate), Expi res: 04/07/2025 Start: 03-09-2024 End: 03-09-2024 Patient encounter procedure 03/09/2024 2:10 PM EDT Routine [facility] [address] [place] [phone] Bryan Dyer DO [address] [place] [address] Arrived [facility] Comment on above: Arrived Start: 03-09-2024 End: 03-09-2025 CBC panel - Blood by Automated count CBC Lab Routine Diabetes mellitus screening Expected: 03/09/2024 (Approximate), Expires: 03/09/2025 [facility] Work Phone: Comment on above: Expected: 03/09/2024 (Approximate), Expi res: 03/09/2025 Start: 03-09-2024 End: 03-09-2025 Measurement of glucose 1 hour after glucose challenge for glucose tolerance test Glucose tolerance, 1 hour Lab Routine Diabetes mellitus screening Expected: 03/09/2024 (Approximate), Expires: 03/09/2025 [facility] Comment on above: Expected: 03/09/2024 (Approximate), Expi res: 03/09/2025 Start: 03-01-2024 Influenza vaccination [facility] Start: 11-19-2023 End: 11-19-2023 Patient encounter procedure 11/19/2023 2:30 PM EDT Office Visit [facility] [address] [place] [address] Nayana Lozoya DO [address] [place] [address] [facility] Start: 10-31-2023 GFR test (Diabetes, CKD 3-4, OR last GFR 15-59) GFR test (Diabetes, CKD 3-4, OR last GFR 15-59) [facility] Start: 10-31-2023 Lipid panel Lipids [facility] Start: 10-30-2023 Hemoglobin A1c measurement A1C test (Diabetic or Prediabetic) [facility] Start: 10-25-2023 GFR test (Diabetes, CKD 3-4, OR last GFR 15-59) GFR test (Diabetes, CKD 3-4, OR last GFR 15-59) [facility] Start: 05-04-2023 Hemoglobin A1c measurement A1C test (Diabetic or Prediabetic) [facility] Start: 05-04-2023 Lipid panel Lipids [facility] Start: 01-29-2023 Influenza vaccination Flu vaccine (Season Ended) [facility] Start: 11-14-2022 End: 11-14-2022 Patient encounter procedure 11/14/2022 Office Visit Bariatrics Deric Florence MD [address] [place] [address] [facility] Surg Weight Start: 10-29-2022 End: 10-29-2022 Admission to same day surgery center 10/29/2022 Surgery IP Unit Deric Florence MD [address] [place] [phone] GASTRIC BYPASS NUNO-EN-Y LAPAROSCOPICNEEDS IV TEAM [facility] Comment on above: GASTRIC BYPASS NUNO-EN-Y LAPAROSCOPICN EEDS IV TEAM Start: 10-29-2022 End: 10-29-2022 Laps gstr rstcv px w/byp nuno-en-y limb <150 cm GASTRIC BYPASS NUNO-EN-Y LAPAROSCOPIC Morbid obesity (HCC) 10/29/2022 9:00 AM EDT [facility] Start: 10-29-2022 Subsequent hospital visit by physician 10/29/2022 Hospital Encounter IP Unit Deric Florence MD [address] [facility] [address] [facility] [address] [phone] [facility] Start: 05-11-2022 End: 05-11-2022 Patient encounter procedure [facility] [place] Surg Weight Start: 05-04-2022 End: 05-04-2022 Egd transoral biopsy single/multiple EGD ESOPHAGOGASTRODUODENOSCOPY Gastroesophageal reflux disease 05/04/2022 8:18 AM EDT [facility] Start: 01-29-2022 Influenza vaccination Flu vaccine (#1) [facility] Start: 03-01-2021 Influenza vaccination Flu vaccine (#1) [facility] Work Phone: Start: 01-22-2020 Screening for malignant neoplasm of cervix Pap smear [facility] Start: 09-23-2019 Hepatitis B vaccine (3 of 3 - Risk 3-dose series) Hepatitis B vaccine (3 of 3 - Risk 3-dose series) [facility] Start: 2018 DTaP/Tdap/Td vaccine (1 - Tdap) DTaP/Tdap/Td vaccine (1 - Tdap) [facility] Start: 2017 Adult BMI Follow Up Plan Adult BMI Follow Up Plan [facility] Start: 2017 Glaucoma screening Diabetic retinal exam [facility] Start: 2017 Hepatitis C screening Hepatitis C screen [facility] Start: 2017 Urine screening for protein Diabetic Alb to Cr ratio (uACR) test [facility] Start: 2015 [facility]achomatis [facility] Start: 2014 HIV screening [facility] screen [facility] Start: 2011 COVID-19 Vaccine (1) COVID-19 Vaccine (1) [employer] Phone: Start: 2011 Depression Monitoring Depression Monitoring [facility] [employer] Start: 2011 Depression Screen Depression Screen [facility] Start: 2011 Depression Screening Depression Screening [facility] Start: 2010 HPV vaccine (1 - 2-dose series) HPV vaccine (1 - 2-dose series) [facility] Start: 2009 Diabetic foot examination Diabetic foot exam [facility] Start: 2005 Pneumococcal 0-64 years Vaccine (1 - PCV) Pneumococcal 0-64 years Vaccine (1 - PCV) [facility] Start: 01-22-2000 Varicella vaccine (1 of 2 - 2-dose childhood series) Varicella vaccine (1 of 2 - 2-dose childhood series) [facility] Start: 1999 COVID-19 Vaccine (#1) COVID-19 Vaccine (#1) [facility] Start: 1999 [facility] End: 10-29-2023 Basic metabolic 2000 panel - Serum or Plasma Basic Metabolic Panel Lab Routine Daily for 365 Days starting 10/30/2022 until 10/29/2023, 1 completed [employer] Phone: Comment on above: Daily for 365 Days starting 10/30/2022 u ntil 10/29/2023, 1 completed End: 10-29-2023 CBC W Auto Differential panel - Blood CBC with Auto Differential Lab Routine Daily for 365 Days starting 10/30/2022 until 10/29/2023, 1 completed [employer] Phone: Comment on above: Daily for 365 Days starting 10/30/2022 u ntil 10/29/2023, 1 completed CBC W Auto Differential panel - Blood CBC and differential Lab Routine Anemia during in third trimester Ordered: 04/21/2024 [employer] Work Phone: Comment on above: Ordered: 04/21/2024 End: 03-27-2021 Culture, Urine Culture, Urine Microbiology Routine One Time for 1 Occurrences starting 03/27/2021 until 03/27/2021 [employer] Phone: Comment on above: One Time for 1 Occurrences starting 03/02 until 03/27/2021 End: 05-04-2022 Cyanocobalamin vitamin b-12 [employer] Phone: Comment on above: 1 Occurrences starting 05/04/2022 until 05/04/2022 End: 05-04-2022 Ferritin [Mass/volume] in Serum or Plasma [employer] Phone: Comment on above: 1 Occurrences starting 05/04/2022 until 05/04/2022 End: 05-04-2022 Folate [employer] Phone: Comment on above: 1 Occurrences starting 05/04/2022 until 05/04/2022 Glucose [Mass/volume ] in Serum or Plasma [employer] Phone: Comment on above: 4X Daily (AC & HS) until discontinued st arting 10/29/2022 As Needed until disc ontinued starting 10/29/2022 End: 05-04-2022 Hemoglobin A1c/Hemoglobin.total in Blood [employer] Phone: Comment on above: 1 Occurrences starting 05/04/2022 until 05/04/2022 End: 10-30-2022 Hemoglobin A1c/Hemoglobin.total in Blood Hemoglobin A1C Lab Routine Tomorrow AM for 1 Occurrences starting 10/30/2022 until 10/30/2022 [employer] Phone: Comment on above: Tomorrow AM for 1 Occurrences starting 0 10/30/2022 until 10/30/2022 Hemoglobin A1c/Hemoglobin.total in Blood Hemoglobin A1C Lab Routine 10/30/2022 4:51 AM EDT [employer] Phone: End: 10-29-2023 Hepatic function 2000 panel - Serum or Plasma Hepatic Function Panel Lab Routine Daily for 365 Days starting 10/30/2022 until 10/29/2023, 1 completed [employer] Phone: Comment on above: Daily for 365 Days starting 10/30/2022 u ntil 10/29/2023, 1 completed End: 10-29-2023 Magnesium [Mass/volume] in Serum or Plasma Magnesium Lab Routine Daily for 365 Days starting 10/30/2022 until 10/29/2023, 1 completed [employer] Phone: Comment on above: Daily for 365 Days starting 10/30/2022 u ntil 10/29/2023, 1 completed Nasal Cannula Oxygen Nasal Cannu la Oxygen Respiratory Care Routine Daily until discontinued starting 10/30/2022 [employer] Phone: Comment on above: Daily until discontinued starting 2022 Oxygen therapy [Minimum Data Set] Initiate Oxygen Therapy Protocol Respiratory Care Routine As Needed until discontinued starting 10/29/2022 [employer] Phone: Comment on above: As Needed until discontinued starting End: 10-29-2023 Phosphate [Mass/volume] in Serum or Plasma Phosphorus Lab Routine Daily for 365 Days starting 10/30/2022 until 10/29/2023, 1 completed [employer] Phone: Comment on above: Daily for 365 Days starting 10/30/2022 u ntil 10/29/2023, 1 completed End: 05-04-2022 Prealbumin [Mass/volume] in Serum or Plasma [employer] Phone: Comment on above: 1 Occurrences starting 05/04/2022 until 05/04/2022 End: 10-29-2022 Spirometry panel [employer] Phone: Comment on above: Continuous until discontinued starting 0 10/29/2022 Every 2hr while awak e until discontinued starting 10/29/2022 Surgical Pathology Surgical Path ology Lab Routine Gastroesophageal reflux disease Release Upon Ordering for 1 Occurrences starting 05/04/2022 [employer] Phone: Comment on above: Release Upon Ordering for 1 Occurrences starting 05/04/2022 Surgical Pathology Surgical Path ology Lab Routine Morbid obesity (HCC) Release Upon Ordering for 1 Occurrences starting 10/29/2022 [employer] Phone: Comment on above: Release Upon Ordering for 1 Occurrences starting 10/29/2022 End: 05-04-2022 Vitamin B1 Vitamin B1 Lab Routine Morbi d obesity due to excess calories (HCC) 1 Occurrences starting 05/04/2022 until 05/04/2022 [employer] Phone: Comment on above: 1 Occurrences starting 05/04/2022 until 05/04/2022 End: 05-04-2022 Zinc Zinc Lab Routine Morbid obes ity due to excess calories (HCC) 1 Occurrences starting 05/04/2022 until 05/04/2022 [employer] Phone: Comment on above: 1 Occurrences starting 05/04/2022 until 05/04/2022 Immunizations Immunization Date Immunization Notes Care Provider Lito enriquez 10-24-2020 tuberculin skin test ; purified protein derivative solution, intradermal Sjwz 2 [employer] Phone: 05-25-2019 hepatitis B vaccine, adult dosage Sjwz 2 [employer] Phone: 04-01-2019 hepatitis B vaccine, adult dosage Sjwz 2 [employer] Phone: 04-01-2019 meningococcal B vaccine, recombinant, OMV, adjuvanted Sjwz 2 [employer] Phone: 04-01-2019 tuberculin skin test ; purified protein derivative solution, intradermal Sjwz 2 FLORIDALMA GIP[facility] [employer] Work Phone: 08-27-2016 influenza virus vaccine, unspecified formulation [facility] Payers Date Payer Category Payer Self-pay 2023 Medicaid [id number] 2023 Private Health Insurance [facility] MEDICA[facility] [id number] 2020 Private Health Insurance [id number] [id number]. [id number] 2020 Private Health Insurance [id number] 1.2.840.517889.1.13.239.2. 7.3.188352.315 1999 Unknown [id number] 20.1.128628.3.579.2. 204 1999 Unknown [id number] 2.16840.1.441489.3.579.2. 204 1999 Unknown [id number] 2.16840.1.154662.3.579.2. 204 1999 Unknown [id number] 2.16840.1.110299.3.579.2. 204 1999 Unknown [id number] 2.16840.1.046440.3.579.2. 1286 1999 Unknown [id number] 2.16.840.1.926752.3.579.2. 128 1999 Unknown [id number] 2.16.840.1.600474.3.579.2. 1285 1999 Unknown [id number] 2.16.840.1.700074.3.579.2. 1285 1999 Unknown [id number] 2.16.840.1.198953.3.579.2. 1285 1999 Unknown [id number] 2.16.840.1.350884.3.579.2. 1285 1999 Unknown [id number] 2.16.840.1.300751.3.579.2. 1258 1999 Unknown [id number] 2.16.840.1.630247.3.579.2. 1258 1999 Unknown [id number] 2.16840.1.443275.3.579.2. 1258 1999 Unknown [id number] 2.16.840.1.146279.3.579.2. 1258 1999 Unknown [id number] 2.16.840.1.029976.3.579.2. 1258 1999 Unknown [id number] 2.16.840.1.027101.3.579.2. 1258 1999 Unknown [id number] 2.16.840.1.887838.3.579.2. 1258 1999 Unknown [id number] 2.16.840.1.914896.3.579.2. 1258 1999 Unknown [id number] 2.16.840.1.340261.3.579.2. 1258 1999 Unknown [id number] 2.16.840.1.177539.3.579.2. 1258 1999 Unknown [id number] 2.16.840.1.619162.3.579.2. 1258 1999 Unknown [id number] 2.16.840.1.332881.3.579.2. 1259 1999 Unknown [id number] 2.16.840.1.479309.3.579.2. 1259 Unknown [id number] 2.16.840.1.048815.3.579.2. 212 Unknown [id number] 2.16.840.1.003076.3.579.2. 212 Unknown [id number] 2.16.840.1.926410.3.579.2. 212 Unknown [id number] 2.16.840.1.462805.3.579.2. 212 Unknown [id number] 2.16.840.1.418833.3.579.2. 212 Unknown [id number] 2.16.840.1.054798.3.579.2. 212 Unknown [id number] 2.16.840.1.406026.3.579.2. 212 Unknown [id number] 2.16.840.1.184981.3.579.2. 212 Unknown [id number] 2.16.840.1.662878.3.579.2. 212 Unknown [id number] 2.16.840.1.327053.3.579.2. 531 Social History Date Type Detail Facility Tobacco smoking stat [facility] Unknown if ever smoked [employer] Phone: Start: 2000 Sex Assigned At Not on file [employer] Phone: Start: 04-23-2022 End: 05-03-2022 Exposure to SARS-CoV-2 (event) Not sure [employer] Start: 05-03-2022 End: 10-24-2022 Tobacco smoking status CTIS Ex-smoker [employer] Phone: End: 12-29-2021 History of tobacco use Current smoker [employer] Phone: End: 07-01-2022 History of tobacco use Cigarette Smoker [employer] Phone: Start: 05-03-2022 End: 08-14-2023 Tobacco use and exposure Smokeless tobacco non-user [employer] Phone: Start: 05-04-2022 End: 10-30-2022 Alcohol intake Current drinker of alcohol (finding) [employer] Phone: Start: 05-03-2022 Tobacco Comment Quit 12/2021 [facility] [employer] Phone: Start: 05-03-2022 Alcohol Comment occ [employer] Phone: Start: 10-29-2022 History SDOH Alcohol Frequency 1 [employer] Phone: Start: 08-14-2023 End: 12-12-2023 Tobacco smoking status NHIS Never smoked tobacco [facility] Start: 08-14-2023 End: 03-09-2024 Alcoholic beverage intake Ex-drinker (finding) [facility] Start: 08-14-2023 End: 03-09-2024 Alcoholic beverage intake [facility] Start: 08-14-2023 End: 12-12-2023 Tobacco use panel [facility] Start: 10-13-2023 [facility] Within the past 12 months we worried whether our food would run out before we got money to buy more. Never True [facility] Medical Equipment Procedure Code Equipment Code Equipment Origin al Text Equipment Identifier Dates 1 strip by In Vi tro route Daily Use in the morning prior to breakfast, 1 hour after each meal for a total of 4times daily. [id number] Start: 02-19-2024 End: 03-20-2024 1 each by In Vit ro route Daily Use to check FSBS four times daily [id number] Start: 02-19-2024 End: 03-20-2024 DISPENSE 1/2 inc h Iodoform for dressing changes as directed. [id number] Start: 07-02-2024 Clinical Notes 05-04-2022 to 08-04-2024 Marnie Dan LPN - 08/04/2024 11:20 AM Savanna Dyer DO - 07/21/2024 2:30 PM Savanna Dyer, - 07/07/2024 10:30 AM Daniel Li MA - 06/16/2024 1:30 PM ESTDischarge InstructionsAttachments Note Date & Type Note Facility 08-04-2024 History of Presen t illness Narrative Reason for Appointment: Patient ID: Batool Kingsley is a 24 y.o. female who presents for Wound Check Patient presents today for Acute Visit. MEDICATIONS Current Outpatient Medications Medication Instructions albuterol HFA 90 mcg/act inhaler Applicators (Q-Tips/Single-Tip) swab DISPENSE STERILE Q-Tips for dressing changes as directed. cholecalciferol (Vitamin D-3) 50 MCG (1999 UT) capsule 1 capsule, Every 24 hours citalopram (CELEXA) 20 mg, Oral, Daily Gauze Pads & Dressings (Abdominal Pad) 8 X10 pads DISPENSE ABD pads for dressing changes as directed. Gauze Pads & Dressings (Curity Iodoform Packing Strip) misc DISPENSE 1/2 inch Iodoform for dressing changes as directed. ALLERGIES No Known Allergies PROBLEMS Active Ambulatory Problems Diagnosis Date Noted History of gastric bypass 05/25/2024 Postoperative seroma of skin after non-dermatologic procedure 07/02/2024 Resolved Ambulatory Problems Diagnosis Date Noted Gestational diabetes mellitus (GDM), antepartum 05/25/2024 Past Medical History: Diagnosis Date Polycystic ovary [...] nursing note reviewed. Exam conducted with a drilling field professional present. Vitals: There is no height or weight on file to calculate BMI. BP: 120/82 No LMP recorded. ASSESSMENT & PLAN ICD-10-CM 1. Encounter for wound re-check Z51.89 Wound unpacked, cleansed and repacked with 1/2in packing, guaze placed over with ABD. Pt to return in one week for re-check. Documented by Marnie Dan LPN on behalf of: Bryan Dyer DO documented in this encounter [facility] 07-21-2024 History of Presen t illness Narrative Reason for Appointment: Patient ID: Batool Kingsley is a 24 y.o. female who presents for Wound Check Patient presents today for Acute Visit. Current Medications: has a current medication list which includes the following prescription(s): albuterol hfa, q-tips/single-tip, cholecalciferol, citalopram, diphenhydramine, docusate sodium, abdominal pad, curity iodoform packing strip, iron polysaccharides, and plus/iron. Medical History: Active Ambulatory Problems Diagnosis Date Noted History of gastric bypass 05/25/2024 Postoperative seroma of skin after non-dermatologic procedure 07/02/2024 Resolved Ambulatory Problems Diagnosis Date Noted Gestational diabetes mellitus (GDM), antepartum 05/25/2024 Past Medical History: Diagnosis Date Polycystic ovary syndrome 02-20-19 Family History Problem Relation Name Age of Onset Breast cancer Paternal Grandmother Cervical cancer Other Social History Tobacco Use Smoking status: Never Smokeless tobacco: Never Substance Use Topics Alcohol use: Not Currently Alcohol/week: 2.0 standard drinks of alcohol Types: 2 Standard drinks or equivalent per week Drug use: Never Past Surgical History: Procedure Laterality Date GASTRIC BYPASS 10/2022 No Known Allergies Review of Systems: Review of Systems All other systems reviewed and are negative. Objective Physical Exam Constitutional: Appearance: Normal appearance. She [...] nursing note reviewed. Exam conducted with a drilling field professional present. Vitals: There is no height or weight on file to calculate BMI. BP: 132/60 No LMP recorded. Assessment/Plan Encounter Diagnosis: ICD-10-CM 1. Encounter for wound re-check Z51.89 Wound repacked and precautions given Documented by Bryan Dyer DO on behalf of: Bryan Dyer DO documented in this encounter [facility] 07-07-2024 History of Presen t illness Narrative Reason for Appointment: Patient ID: Batool Kingsley is a 24 y.o. female who presents for Post-op Visit (PT present today for a post operative visit S/P C/S. PT had a c/s on 06/29/2024.) Patient presents today for 2 Week Post Op Follow Up appointment. Current Medications: has a current medication list which includes the following prescription(s): albuterol hfa, q-tips/single-tip, cholecalciferol, ciprofloxacin, diphenhydramine, docusate sodium, abdominal pad, curity iodoform packing strip, iron polysaccharides, and plus/iron. Medical History: Active Ambulatory Problems Diagnosis Date Noted History of gastric bypass 05/25/2024 Postoperative seroma of skin after non-dermatologic procedure 07/02/2024 Resolved Ambulatory Problems Diagnosis Date Noted Gestational diabetes mellitus (GDM), antepartum 05/25/2024 Past Medical History: Diagnosis Date Polycystic ovary syndrome 02-20-19 Family History Problem Relation Name Age of Onset Breast cancer Paternal Grandmother Cervical cancer Other Social History Tobacco Use Smoking status: Never Smokeless tobacco: Never Substance Use Topics Alcohol use: Not Currently Alcohol/week: 2.0 standard drinks of alcohol Types: 2 Standard drinks or equivalent per week Drug use: Never Past Surgical History: Procedure Laterality Date GASTRIC BYPASS 10/2022 No Known Allergies Review of Systems: Review of Systems All other systems reviewed and are negative. Objective Physical Exam Constitutional: Appearance: Normal appearance. She [...] nursing note reviewed. Exam conducted with a drilling field professional present. Vitals: There is no height or weight on file to calculate BMI. BP: 122/74 No LMP recorded. Assessment/Plan Encounter Diagnosis: ICD-10-CM 1. Postoperative visit Z48.89 2. S/P section Z98.891 Wound dehiscence-packed and cleaned with 1inch iodoform, referred to wound clinic, has appt tomorrow, rto in 2wks Documented by Bryan Dyer DO on behalf of: Bryan Dyer DO documented in this encounter [facility] 06-16-2024 History of Presen t illness Narrative Reason for Appointment: Patient ID: [...] nursing note reviewed. Exam conducted with a drilling field professional present. Vitals: There is no height or [...] @ 37.4 weeks gestation. Paperwork faxed to [facility] and nursing spoke with Marion @[facility] to confirm IOL Follow Up: Patient is to return to office in 1 week for routine OB appointment. Documented by Mary Zhao LPN on behalf of: Bryan Dyer DO documented in this encounter [facility] 06-10-2024 History of Presen t illness Narrative Reason for Appointment: Patient ID: [...] nursing note reviewed. Exam conducted with a drilling field professional present. Vitals: There is no height or [...] encounter [facility] 05-25-2024 History of Presen t illness Narrative Reason for Appointment: Patient ID: [...] nursing note reviewed. Exam conducted with a drilling field professional present. Vitals: There is no height or [...] scheduled starting this week. Order faxed to [facility] Scheduling and [facility]. Gave patient handouts for [employer]. Patient to return to clinic in 2 weeks for routine OB appointment. Patient will have GBS done at that time. Documented by Mary Zhao LPN on behalf of: Bryan Dyer DO documented in this encounter [facility] 05-06-2024 History of Presen t illness Narrative Reason for Appointment: Patient ID: [...] encounter [facility] 04-21-2024 History of Presen t illness Narrative Reason for Appointment: Patient ID: [...] nursing note reviewed. Exam conducted with a drilling field professional present. Vitals: There is no height or [...] encounter [facility] 04-07-2024 History of Presen t illness Narrative Reason for Appointment: Patient ID: [...] nursing note reviewed. Exam conducted with a drilling field professional present. Vitals: There is no height or [...] encounter [facility] 03-09-2024 History of Presen t illness Narrative Reason for Appointment: Patient ID: [...] nursing note reviewed. Exam conducted with a drilling field professional present. Vitals: There is no height or [...] documented in this encounter [facility] 10-24-2023 Miscellaneous Notes Received a referral from MARILEE E[facility] office for the patient for PCOS. LVM for patient to call the office to schedule referral appt. Patient returned my call & scheduled her referral appt. documented in this encounter [facility] 10-24-2023 Telephone encounter Note Received a referral from MAR[facility] office for the patient for PCOS. LVM for patient to call the office to schedule referral appt. [facility] 10-24-2023 Telephone encounter Note Patient returned my call & scheduled her referral appt. [facility] 10-30-2022 Hospital Discharg e instructions Lashawn Ordoñez RN - 10/30/2022 6:49 AM EDT Your information: Name: Batool Kingsley : 2000 Dr. Florence's Discharge Instructions for Bariatric Surgery [facility] [place] Discharge Instructions For Bariatric Surgery HOME CARE [...] blood sugars as ordered by PCP or [facility]. Follow up with PCP or [facility] regarding diabetic medications. Make sure you take any medicines you were on for depression or anxiety. FOLLOW-UP Follow-up appointment with surgeon 10-14 days after surgery. Complete lab work prior to this appointment. Follow-up with PCP and/or [facility] prior to seeing surgeon. CALL [facility] OFFICE [phone] IF ANY OF THE FOLLOWING OCCURS TO [...] Weapons (Notify Protective Services/Security): None Other Valuables: [place], [employer] Home Medications: None Valuables Given To: [...] through Care Everywhere.Gastric Bypass Surgery: Nuno-en-Y: Post-op (Montserratian)documented in this encounter [facility] [employer] Phone: 10-30-2022 Hospital course Narrative Physician Discharge Summary Batool Kingsley [id number] Admit date: 10/29/2022 Discharge date and time: [...] Your Medications These medications were sent to [facility], [place] - [address] [place] [address] - [phone] [place] [id number] traMADol 50 MG tablet Activity: no lifting, [...] 6:48 AM documented in this encounter [facility] [employer] Phone: 10-30-2022 History of Presen t illness Narrative Internal Medicine Progress Note NATHALIE=[facility] Shanta Hernandez D.O., F.A.C.O.I. Christin Mason D.O., F.A.C.O.I. Juliocesar Werner D.O. Francine Kilpatrick, MSN, CHRONOGRAPH OPERATOR, REPORTING LEAD-C Yang Hsu, MSN, CHRONOGRAPH OPERATOR-MACHINE BINDING FOLDER Primary Care Physician: SARAI GAGNON CNP Admitting Physician: Deric Florence MD Admission date and time: 10/29/2022 6:02 AM Room: [address] [place] [address] Admitting diagnosis: Morbid obesity (HCC) [E66.01] Post-operative [...] reflux disease with possible hiatal hernia repair Mbf-ratdobq-ghnwkqbck diabetes mellitus type 2 Anxiety Plan: Batool [...] 6:37 AM documented in this encounter [facility] [employer] Phone: 10-24-2022 History of Presen t illness Narrative Images from the original note were not included. [facility] PRE OP INSTRUCTIONS FOR Batool Kingsley [...] makeup (including no eye makeup) or nail solomon islander on your fingers or toes. DO NOT wear any jewelry or piercings on day of surgery. All body piercing jewelry must be removed. Shower the night before surgery with _x__Antibacterial soap /CHG WIPES___x If you have a Living Will and Durable Power of Picking Table Worker for Healthcare, please bring in a copy. [...] and go to information desk Please call NATURAL SCIENCES DEPARTMENT CHAIR if you have any further questions. Pre Admit Testing [phone] [facility] [phone] documented in this encounter [facility] [employer] Phone: 05-04-2022 Hospital Discharg e instructions Ashlie [...] the day after the test, use an tejv-zjn-nxtckyx spray to numb your throat. Follow-up care [...] Where can you learn more? Go to [email or web address] and sign in to your TapF[employer] account. Enter J454 in the Search Health Information box to learn more about Upper GI Endoscopy: What to Expect at Home. If you do not have an account, please click on the Sign Up Now link. Current as of: December 04, 2021 Content Version: 13.4 reportbrain. Care instructions adapted under license by [employer]. If you have questions about a medical condition or this instruction, always ask your healthcare professional. [employer]brain disclaims any warranty or liability for your use of this information. documented in this encounter [facility] Work Phone: 05-04-2022 History of Presen t illness Narrative SBAR form completed and placed on chart. Chart with patient in transit. Images from the original note were not included. [facility] PRE OP INSTRUCTIONS FOR Batool Kingsley [...] makeup (including no eye makeup) or nail solomon islander on your fingers or toes. DO NOT wear any jewelry or piercings on day of surgery. All body piercing jewelry must be removed. Shower the night before surgery with _x__Antibacterial soap /ALEXANDER WIPES TOTAL JOINT REPLACEMENT/HYSTERECTOMY PATIENTS ONLY---Remember to bring Blood Bank bracelet to the hospital on the day of surgery. If you have a Living Will and Durable Power of Picking Table Worker for Healthcare, please bring in a copy. [...] safety of all patients. Other Please call NATURAL SCIENCES DEPARTMENT CHAIR if you have any further questions. Pre Admit Testing [phone] [facility] [phone] documented in this encounter [employer] Phone: Evaluation note Diagnosis DUB (dysfunctional uterine bleeding)- Primary Other disorder of menstruation and other abnormal bleeding from female genital tract documented in this encounter [employer] Phone: evaluation note* Diagnosis Gastroesophageal reflux disease- Primary Esophageal reflux Morbid obesity due to excess calories (HCC) documented in this encounter [employer] Phone: evaluation note* Diagnosis Morbid obesity (HCC)- Primary Morbid obesity Preop testing- Primary Preoperative examination, unspecified 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 Morbid obesity (HCC) Morbid obesity documented in this encounter [employer] Phone: evaluation note* Diagnosis S/P gastric bypass- Primary Bariatric surgery status Morbid obesity (HCC) Morbid obesity Post-operative state Other postprocedural status Morbid obesity (HCC) Morbid obesity Post-operative state Other postprocedural status documented in this encounter [employer] Phone: evaluation note* Diagnosis 27 weeks gestation of Second trimester state, incidental Gestational diabetes mellitus (GDM), antepartum, gestational diabetes method of control unspecified Anemia affecting in second trimester documented in this encounter [facility] HealthcareEvaluation note* Diagnosis Third trimester state, incidental 29 weeks gestation of Anemia during in third trimester Elevated glucose tolerance test Impaired glucose tolerance test Abnormal thyroid stimulating hormone (TSH) level documented in this encounter [facility] HealthcareEvaluation note* Diagnosis Third trimester state, incidental 31 weeks gestation of Anxiety, generalized (CMS/HCC) Sinusitis, unspecified chronicity, unspecified location documented in this encounter [facility] HealthcareEvaluation note* Diagnosis 34 weeks gestation of Third trimester state, incidental Insomnia, unspecified type History of gastric bypass Gestational diabetes mellitus (GDM), antepartum, gestational diabetes method of control unspecified documented in this encounter [facility] HealthcareEvaluation note* Diagnosis Third trimester state, incidental 36 weeks gestation of Non-compliant patient, third trimester History of gastric bypass Gestational diabetes mellitus (GDM), antepartum, gestational diabetes method of control unspecified documented in this encounter [facility] HealthcareEvaluation note* Diagnosis Third trimester state, incidental 37 weeks gestation of documented in this encounter [facility] HealthcareEvaluation note* Diagnosis Diabetes mellitus screening Screening for diabetes mellitus Second trimester state, incidental documented in this encounter [facility] HealthcareEvaluation note* Diagnosis Postoperative visit S/P section Other postprocedural status [facility]* Diagnosis Encounter for wound re-check documented [facility] this [facility]* Diagnosis Encounter for wound re-check [facility] Attachments The following attachments cannot be sent through Care Everywhere. * AUB (Abnormal Uterine Bleeding) (Montserratian) documented in this [facility] Phone: InstructionsNot on filedocumented in this encounter [facility] Summary Purpose Family History No Family History [...] section and content) DATE CREATED AUTHOR 07/16/2020 [facility] DATE CREATED AUTHOR AUTHOR'S ORGANIZ ATION 05/05/2022 [facility] DATE CREATED AUTHOR AUTHOR'S ORGANIZ ATION 02/07/2023 [facility] DATE CREATED AUTHOR AUTHOR'S ORGANIZ ATION 06/04/2023 [facility] DATE CREATED AUTHOR AUTHOR'S ORGANIZ ATION 02/19/2024 [facility] DATE CREATED AUTHOR AUTHOR'S ORGANIZ ATION 07/02/2024 [facility] DATE CREATED AUTHOR AUTHOR'S ORGANIZ ATION 07/18/2024 [facility] DATE CREATED AUTHOR AUTHOR'S ORGANIZ ATION 08/06/2024 [facility] EPIC Reason for Visit (unrecogniz ed section and content) Reason Comments Vaginal Bleeding 4 pad per hour, larg e clots present Specialty Diagnoses / Procedures Referred By Geronimo reardon Referred To Contact Diagnoses Gastroesophageal reflux disease Gastroesophageal reflux disease [K21.9] Procedures DE EGD TRANSORAL BIOPSY SINGLE/MULTIPLE DE EGD TRANSORAL BIOPSY SINGLE/MULTIPLE DE ESOPHAGOGASTRODUODENOSCOPY TRANSORAL DIAGNOSTIC DE EGD BALLOON DILATION ESOPHAGUS <30 MM DIAM EGD ESOPHAGOGASTRODUODENOSCOPY Deric Florence MD [address] [facility] [address] [phone] [facility] [address] [place] [address] Referral ID Status Reason Start Date Expiration Date Visits Re quested Visits Authorized [id number] 1 1 Specialty Diagnoses / Procedures Referred By Geronimo reardon Referred To Contact Diagnoses Morbid obesity (HCC) Morbid obesity (HCC) [E66.01] Procedures DE LAPS GSTR RSTCV PX W/BYP NUNO-EN-Y LIMB <150 CM GASTRIC BYPASS NUNO-EN-Y LAPAROSCOPIC Deric Florence MD [address] [phone] [facility] [address] [place] [address] Referral ID Status Reason Start Date Expiration Date Visits Re quested Visits Authorized [id number] 1 1 Reason Comments Routine Visit Reason Comments Post-op Visit PT present today for a post operative visit S/P C/S. PT had a c/s on 06/29/2024. Reason Comments Wound Check Continuous Active and Recently Administ ered Medications [...] 100 mL IVPB (COMPLETED) 3,000 mg, IntraVENous, HUMAN SERVICE COORDINATOR TO O.R., 1 dose, On Sat10/29/22 at 0715, Antimicrobial Indications: Surgical Prophylaxis, Administer within 1 hour prior to incision. Repeat in 3-4 hours after initial dose if still intra-op., Pre-op (day of surgery) 0844 (Given - Provider: Maggie Avila APRN - JOB COUNSELOR) insulin lispro (HUMALOG) injection vial 0-4 Units [...] Stewart RN)1159 (Due: Patch Removed - Provider: Adarsh Jade RN - Comment: Time automatically adjusted [...] Post-op 2030 (Not Given - Provider: Jennifer Daria, RN - Reason: IV Fluid Infusing) 0900 [...] of order., Post-op bupivacaine-EPINEPHrine PF (MARCAINE-w/EPINEPHrine) 0.25% -[id number] injection (CANCELED) PRN, Starting on Sat10/29/22 at [...] PACU only 1045 (Given - Provider: Khushi Heebrt, MELANIA)1055 (Given - Provider: Khushi Hebert RN) [...]
Care Teams (unrecognized sec tion and content) Access Liaison Relationship Specialty Start Date End Date Kaela Arellano CHRONOGRAPH OPERATOR [facility] [address] [facility] [place] [address] PCP - General Certified Nurse Practitioner 04/27/22 Access Liaison Relationship Specialty Start Date End Date Kaela Arellano [facility] [address] [facility] [place] [address] PCP - General Certified Nurse Practitioner 09/14/22 Access Liaison Relationship Specialty Start Date End Date Kaela Arellano, CHRONOGRAPH OPERATOR [facility] [address] [facility] [place] [address] PCP - General Certified Nurse Practitioner 09/14/22 Access Liaison Relationship Specialty Start Date End Date Travis Pineda PA-C [address] [place] [address] PCP - General Physician Pharmacy Graduate Intern 12/25/22 Ordered Prescriptions (unrec ognized section and content) [...] BE BASED ON THE PRIMARY CLINICAL RECORDS. [facility] [employer] [facility]. provides no warranty or guarantee of the accuracy or completeness of information in this document.
== END 2024-08-10 21:49 | disposition home or self-care (01) ==
LOC: LAB 21:48
PROVIDERS: Visit Provider Physician Assistant
DX: Z51.89 Encounter for other specified aftercare (principal)
CPT/HCPCS: 87070; 87075